=== PATIENT | female | born 1950 | race Caucasian/White ===

== ENCOUNTER 2017-12-23 14:30 | Outpatient (RCR) | payer MEDICARE, OTHER, SELFPAY | END 2017-12-29 23:59 | LOC: NS 14:30 | PROVIDERS: Family Provider Nurse Practitioner; PCP Nurse Practitioner; Visit Provider Nurse Practitioner | DX: E11.9 Type 2 diabetes mellitus without complications (principal); R63.5 Abnormal weight gain; Z68.36 Body mass index [BMI] 36.0-36.9, adult; Z71.3 Dietary counseling and surveillance | CPT/HCPCS: 97802; 97803 ==

== ENCOUNTER 2018-01-11 08:41 | Outpatient (RCR) | payer MEDICARE, OTHER, SELFPAY | END 2018-01-29 23:59 | LOC: NS 08:41 | PROVIDERS: Family Provider Nurse Practitioner; PCP Nurse Practitioner; Visit Provider Nurse Practitioner | DX: E11.9 Type 2 diabetes mellitus without complications (principal); R63.5 Abnormal weight gain; Z68.36 Body mass index [BMI] 36.0-36.9, adult; Z71.3 Dietary counseling and surveillance | CPT/HCPCS: 97803 ==

== ENCOUNTER 2018-02-01 08:00 | Outpatient (RCR) | payer MEDICARE, OTHER, SELFPAY ==
--- NOTE | 2017-12-30 10:56 | HP.PTEVAL_ITS ---
Patient's Visit Information ELIZABETH HOPE is a 67 year old F referred to Physical Therapy by Mayda BONILLA with a diagnosis of LBP with radiculopathy. Date of Evaluation: 12/30/17 Physical Therapist: Cristopher Francis PT, - Visit Plan Frequency: 2-3x /Week Duration: 4-6 Weeks Plan: SKTC/DKTC, core strengthening, B LE strengthening, balance and proprio ex' s, nustep, HEP - Subjective Subjective: Pt reports she has been having LE weakness for a couple months. 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 Pt reports she also has LBP which she recently received an injection for. Pt notes the pain went away for a little while, but has since returned. Pt does have B LE tingling which is a result of her neuropathy from the knees down to the feet. Pt reports her neuropathy is currently untreated. Pt reports she is unable to get up off the floor secondary to lE weakness. Pt also notes picking up her grandchildren is difficult secondary to LE weakness. No recent Dx tests. Pt reports walking for a prolonged distance increases her LBP. Pt also notes lifting her grandchildren increases her pain. LBP is currently 5/10, but increases to 10/10 at worst. - Pain LBP Pain Intensity (Out of 10): 5 Pain Intensity Range: 10 - Objective Neuro: B LE sensation is WNL to light touch. B achilles reflex 1/3. LE MMT: B LE's are grossly 3+/5 througout. LS ROM: Unable to safely test secondary to pt having menieres disease and poor balance. repeated movements: hooklying SKTC/ DKTC 3x10 sec ea alleviates LBP - Goals Goal 1:: Decrease LBP x 50% to aid with IADL's Goal Time Frame: 4-6 Weeks Goal 2:: Increase B LE strength x 1 grade to aid with gait tolerance Goal Time Frame: 4-6 Weeks Goal 3:: I with HEP Goal Time Frame: 4-6 Weeks - Rehabilitation Potential Physical Therapy Diagnosis: Pt has LBP, LE weakness, and decreased balance secondary to deg changes in the L/S Rehabilitation Potential: Good - Anticipated Interventions Patient/Client Instruction: Educate patient on: Condition, Plan of Care For the Purpose of:: To improve self management Therapeutic Exercise to Include: Strength training, Endurance training, Balance training, Postural training, Active ROM, Dynamic Lumbar Stabilization For the Purpose of:: To decrease pain, To increase ROM, To improve muscle performance and motor function Cryotherapy (ice pack, ice massage): Yes Thermo therapy (hot pack): Yes For the Purpose of:: To decrease pain Thank you for the opportunity to evaluate your patient. For Medicare and Medicare HMO plans, please review the plan of care and approve it. It will need to be FAXED BACK to us at [phone] for Medicare purposes. Please let me know if there are questions or concerns regarding this plan of care. Physician Signature: Date:
--- NOTE | 2018-02-01 08:23 | HP.PTDCSUM ---
HP - PT D/C Summary It has been my pleasure to treat ELIZABETH HOPE under orders from DR.KFEARO Jenny for the diagnosis of LBP with radiculopathy for a total of 7 visit(s). Discharge Date: Please see the following information for a summary of their discharge status. - Subjective Subjective: The LBP is now gone, but pt notes her neuropathy is really bad and makes her feel unsteady. - Pain LBP Pain Intensity (Out of 10): 0 L Knee Pain Intensity (Out of 10): 4 - Overall Improvement % Improvement: 100 - Objective Objective/Function: LBP is now 0/10. B LE's are now rated at 4-/5 throughout. Pt is I with HEP. Pt has achieved low back Rx goals - Goals Goal 1:: Decrease LBP x 50% to aid with IADL's Goal Progress: Goal Met Goal 2:: Increase B LE strength x 1 grade to aid with gait tolerance Goal Progress: Goal Met Goal 3:: I with HEP Goal Progress: Goal Met - Plan Plan: Discharge - D/C Information If there are questions or concerns regarding this patient's physical therapy, please feel free to call me at [phone]. Thank you for the referral of this patient. Sincerely, Cristopher Francis, PT,
== END 2018-02-01 19:00 | disposition home or self-care (01) ==
LOC: PT 08:00
PROVIDERS: Family Provider Nurse Practitioner; PCP Nurse Practitioner; Visit Provider Internal Medicine
DX: M54.16 Radiculopathy, lumbar region (principal)
CPT/HCPCS: 97110; 97162; 97530

== ENCOUNTER 2018-02-15 08:30 | Outpatient (RCR) | payer MEDICARE, OTHER, SELFPAY | END 2018-02-28 23:59 | LOC: NS 08:30 | PROVIDERS: Family Provider Nurse Practitioner; PCP Nurse Practitioner; Visit Provider Nurse Practitioner | DX: E11.9 Type 2 diabetes mellitus without complications (principal); R63.5 Abnormal weight gain; Z68.36 Body mass index [BMI] 36.0-36.9, adult; Z71.3 Dietary counseling and surveillance | CPT/HCPCS: 97803 ==

== ENCOUNTER 2018-03-24 10:00 | Outpatient (RCR) | payer MEDICARE, OTHER, SELFPAY | END 2018-03-31 23:59 | LOC: DC 10:00 | PROVIDERS: Family Provider Nurse Practitioner; PCP Nurse Practitioner; Visit Provider Nurse Practitioner | DX: E11.9 Type 2 diabetes mellitus without complications (principal); R63.5 Abnormal weight gain; Z68.36 Body mass index [BMI] 36.0-36.9, adult; Z71.3 Dietary counseling and surveillance | CPT/HCPCS: 97803; G0108 ==

== ENCOUNTER 2018-04-05 08:00 | Outpatient (RCR) | payer MEDICARE, OTHER, SELFPAY ==
--- NOTE | 2018-04-05 08:00 | DT_ITS ---
This patient was seen during an EMR downtime April 04, 2018 - April 11, 2018. This patient may have a combination of paper and electronic documentation or all paper documentation. All documentation is viewable within the e-chart portion of [facility] for each patient visit.
== END 2018-04-30 23:59 ==
LOC: NS 08:00
PROVIDERS: Family Provider Nurse Practitioner; PCP Nurse Practitioner; Visit Provider Nurse Practitioner
DX: R63.5 Abnormal weight gain (principal); Z68.36 Body mass index [BMI] 36.0-36.9, adult; E11.9 Type 2 diabetes mellitus without complications; Z71.3 Dietary counseling and surveillance; Z79.84 Long term (current) use of oral hypoglycemic drugs
CPT/HCPCS: 97803

== ENCOUNTER → 2018-04-12 07:54 | Outpatient (CLI) | payer MEDICARE, OTHER, SELFPAY ==
--- NOTE | 2018-04-12 09:50 | NEURO ---
NCS and/or EMG Patient Report Ordering Doctor: Eli Bowman DATE OF SERVICE: 04/12/18 This is a bilateral lower extremity nerve conduction study and a left lower extremity EMG performed on this 67-year-old female with a history of well-controlled diabetes, for the past several months has had bilateral lower extremity pain worse on the left side with weakness and falls. Still has chronic back pain. She describes that her legs suddenly give out without pain. Neurologic examination is nonfocal with intact reflexes however she does have mild hammertoe deformities. Bilateral lower extremity sensory and motor nerve conduction study is performed. The motor conduction velocities bilaterally are slowed worse on the right side from the common peroneal and tibial nerves which also demonstrate mild reduction of amplitude and mild prolongation of distal latencies. The tibial H reflex responses bilaterally are reduced, the sural sensory responses bilaterally are intact. The tibial and peroneal F-wave latencies bilaterally are intact. Left lower extremity needle electromyography is performed. Muscles evaluated included the extensor digitorum brevis, abductor hallucis, medial gastrocnemius, anterior tibialis, vastus lateralis, and vastus medialis muscles. All muscles demonstrated normal insertional activity with absence of pathologic spontaneous activity. Motor unit potential recruitment pattern and amplitude was normal in all muscles tested. Impression: Abnormal electrophysiologic study of the bilateral lower extremities consistent with primarily motor length dependent polyneuropathy.
--- NOTE | 2018-04-12 09:53 | NEURO_ITS ---
NCS and/or EMG Patient Report Ordering Doctor: Eli Bowman DATE OF SERVICE: 04/12/18 This is a bilateral lower extremity nerve conduction study and a left lower extremity EMG performed on this 67-year-old female with a history of well- controlled diabetes, for the past several months has had bilateral lower extremity pain worse on the left side with weakness and falls. Still has chronic back pain. She describes that her legs suddenly give out without pain. Neurologic examination is nonfocal with intact reflexes however she does have mild hammertoe deformities. Bilateral lower extremity sensory and motor nerve conduction study is performed. The motor conduction velocities bilaterally are slowed worse on the right side from the common peroneal and tibial nerves which also demonstrate mild reduction of amplitude and mild prolongation of distal latencies. The tibial H reflex responses bilaterally are reduced, the sural sensory responses bilaterally are intact. The tibial and peroneal F-wave latencies bilaterally are intact. Left lower extremity needle electromyography is performed. Muscles evaluated included the extensor digitorum brevis, abductor hallucis, medial gastrocnemius , anterior tibialis, vastus lateralis, and vastus medialis muscles. All muscles demonstrated normal insertional activity with absence of pathologic spontaneous activity. Motor unit potential recruitment pattern and amplitude was normal in all muscles tested. Impression: Abnormal electrophysiologic study of the bilateral lower extremities consistent with primarily motor length dependent polyneuropathy.
== END ==
PROVIDERS: Family Provider Nurse Practitioner; PCP Nurse Practitioner; Visit Provider Nurse Practitioner
DX: R20.0 Anesthesia of skin (principal)
CPT/HCPCS: 95886; 95910

== ENCOUNTER → 2018-04-23 08:58 | Outpatient (CLI) | payer MEDICARE, OTHER, SELFPAY ==
[2018-04-23 09:49] LABS: Hematocrit 41.8 % (37-47); Mean Corp Hgb Conc 33.5 g/gl (32-36); Mean Corpuscular Hgb 31.3 pg (27.0-32.0); Mean Corpuscular Volume 93.3 fL (81-99); Mean Platelet Vol. 10.5 fl (6.2-12.0); Platelet Count 216 K/mm3 (150-450); RBC Distribution Width CV 12.9 % (11.6-14.6); RBC Distribution Width SD 43.2 fl (35.1-43.9); Red Blood Count 4.48 M/mm3 (4.2-5.4); White Blood Count 8.3 K/mm3 (4.4-11.0)
[2018-04-23 09:53] LABS: Scan Indicated on CBC? Y/N NO
[2018-04-23 10:12] LABS: Creatinine, Urine (random) < 13.00 mg/dL (NO RANGE EST.); Microalbumin,Random Urine < 5.0 mg/L (NO RANGE EST.)
[2018-04-23 10:22] LABS: Albumin, Serum 3.4 g/dL (3.2-5.0); BUN 19 mg/dL (7-18); BUN/Creat Ratio 15.3 RATIO (10-20); Calcium,Total 8.9 mg/dL (8.5-10.1); Chloride 103 mmol/L (98-107); Creatinine, Serum 1.24 mg/dL (0.55-1.02); EST Glomerular Filtration Rate 46 mL/min (>60); Est Glom Filt Rate - Afr Amer 55 mL/min (>60); Glucose 93 mg/dL (74-106); Phosphorus 2.8 mg/dL (2.5-4.9); Potassium 4.4 mmol/L (3.5-5.1); Sodium Level 139 mmol/L (136-145)
[2018-04-25 09:50] LABS: PTHIN 51.5 pg/mL (18.4-80.1); Vitamin D,25 Hydroxy 69.4 ng/mL (29.95-100.01)
== END ==
PROVIDERS: Family Provider Nurse Practitioner; PCP Nurse Practitioner; Visit Provider Internal Medicine Nephrology
DX: Z13.0 Encounter for screening for diseases of the blood and blood-forming organs and certain disorders involving the immune mechanism (principal); N18.3 Chronic kidney disease, stage 3 (moderate); N25.81 Secondary hyperparathyroidism of renal origin
CPT/HCPCS: 36415; 80069; 82043; 82306; 82570; 83970; 85027

== ENCOUNTER 2018-04-26 08:48 | Outpatient (RCR) | payer MEDICARE, OTHER, SELFPAY | END 2018-04-30 23:59 | LOC: DC 08:48 | PROVIDERS: Family Provider Nurse Practitioner; PCP Nurse Practitioner; Visit Provider Nurse Practitioner | DX: E11.9 Type 2 diabetes mellitus without complications (principal); R63.5 Abnormal weight gain; Z68.36 Body mass index [BMI] 36.0-36.9, adult; Z71.3 Dietary counseling and surveillance | CPT/HCPCS: G0108 ==

== ENCOUNTER 2018-07-08 08:17 | Outpatient (RCR) | payer MEDICARE, OTHER, SELFPAY | END 2018-07-08 23:59 | LOC: NS 08:17 | PROVIDERS: Family Provider Nurse Practitioner; PCP Nurse Practitioner; Visit Provider Nurse Practitioner | DX: R63.5 Abnormal weight gain (principal); Z68.36 Body mass index [BMI] 36.0-36.9, adult; E11.9 Type 2 diabetes mellitus without complications; Z71.3 Dietary counseling and surveillance | CPT/HCPCS: G0108 ==

== ENCOUNTER 2018-07-11 08:30 | Outpatient (RCR) | payer MEDICARE, OTHER, SELFPAY ==
--- NOTE | 2018-07-11 09:05 | BH.SGPN.GN ---
Behaviors/Verbalizations/Mental Status: [Client maintained fair eye contact, casually dressed, motor activity WNL - closed body language, arms crossed, speech normal rate, soft tone - limited input provided, mood depressed, affect constricted, thoughts linear and logical, no evidence of delusions or hallucinations. Therapist reviewed clients symptom tracker to assess for intensity of mental health symptoms and identify risk for suicide. No signs of suicidal ideation, plan, or intent to date.] Client Response/Progress/Benefit: [Client first day in IOP program and is adjusting to the new group environment. She did well to remain an active listener and attentive throughout. Client indicated not feeling ready to share today and chose to pass at this time. Client appeared to benefit from the supportive environment as well as hearing other participants discuss their own areas of progress and ongoing difficulties. Client nodded on several occasions as other group members discussed and indicated feeling hopeful that the IOP program would help her to develop the skills needed to better manage mental health symptoms. Recommended continued IOP tx to prevent decompensation and improve insight into mental health as well as her ability to identify and utilize healthy means of coping. ] Narrative Note: []
--- NOTE | 2018-07-11 16:24 | BH.COMM ---
Communication Note - Communication with Client Communication Note: Therapist met with this client briefly following stay in IOP program to check in and see how she is adjusting to group, as well as any thoughts or concerns. Client indicated feeling somewhat overwhelmed on this day but glad she took the step to reach out for help with managing her mental health symptoms. Client tearful throughout and indicated understanding why she is having such difficulties in managing her symptoms of grief. She responded well to therapist empathic responses and indicated goals of wanting to improve grief management, socialization, and decrease depression. Client expressed feeling hopeful that her symptoms will improve through engagement in IOP program. client indicates plans to return to meet with program psychiatrist and attend group on Sunday 07/15.
--- NOTE | 2018-07-11 16:30 | BH.COMM ---
Communication Note - Communication with Client Communication Note: Client called in to cancel scheduled group day on Sunday 07/15. Client additionally scheduled to meet with program psychiatrist, nurse, and individual therapist on that date. Client indicated having other obligations and needing to reschedule for Wednesday 07/18 for group and individual therapy. Will be in attendance next Sunday 07/22 to meet with program psychiatrist and nurse.
--- NOTE | 2018-07-18 14:51 | BH.COMM ---
Communication Note - Communication with Client Communication Note: Client called prior to group scheduled for this date and indicated that she is unsure if group couseling would be a good fit for her at this time as she would like to recieve more grief specific counseling on an individual basis. Client requesting discharge from IOP program at this time and is agreeable to recieving referral information for [facility] grief specific counseling. CLient encouraged to return to IOP program at a later date is feeling more capable of being in a group setting.
--- NOTE | 2018-07-19 13:50 | BH.DS_ITS ---
Discharge Summary - Demographics Date of Admission:: 07/11/18 Discharge Date: 07/19/18 Presenting Problems at Admission:: Client is a 67-year-old female referred to IOP program following meeting with [facility] dietitian due to expressed symptoms of increased hopelessness and depression. Client indicates at time of admission experiencing ongoing difficulties in managing grief, increased symptoms of depression including hopelessness, lack of energy, lack of motivation, an hedonia, crying spells, and increased isolation. Client associates worsening depression with experiencing several major losses in the past thress years; including the of her and daughter. CLient reports at time of admission difficulties completing daily tasks or feeling as though she has a purpose. Discharge Diagnoses:: Client attended one day of IOP tx and discharged prior to meeting with program psychiatrist. She was therefore not give a diagnosis while in treatment. Client had been scheduled to meet with psychiatrist on 07/15; however canceled appointment indicating other obligations. Client did not return for group following this cancellation. Reason for Discharge:: Client request discharge from IOP program at this time due to wanting to pursue mental health treatment on an individual basis in an environment more specialized towards grief specific counseling. Client receptive of receiving resources for hospice individual and group supportive counseling services. - Treatment Progress During Treatment & Response: Limited progress able to be made as client was in attendance for 1 day of treatment while admitted to the IOP program. Client indicated feeling as though she was not a good fit for groups as she felt her needs would be better maaged through individually grief specific counseling . Due to client feeling uncomfortable in group setting she had difficulties in engaging in the activities and discussion portion of group and remained deserved throughout. Client additionally inconsistent in attending IOP program while admitted due to outside responsibilities reguarding watching her grandchildren. Client did well to identify the importance of ensuring her mental health needs were addressed and is receptive of engaging in counseling services on an individual basis. Issues Still to be Addressed:: Client displaying difficulties with managing ongoing symptoms of depression associated with grief and difficulties in adjusting to changes in current lifestyle. Client additionally expressed increased feelings of guilt, worthlessness, and hopelessness associated with her ongoing mental health symptoms. CLient additionally discussed having limited supports she feels understand and validate her mental health needs and difficulties in coping which has led to increased isolation as a result. Client would benefit from individual outpatient counseling specific to addressing CLient grief and increased depression. Client additionally would benefit from working on identifying ways to better communicate with supports and implement healthy boundary setting as well as means for managing transition of roles. Client could also benefit from focus on increasing psychoeducation regarding mental health symptoms and impact in daily living, as well as means for healthy coping skills and thought challenging strategies. Discharge Recommendations/Instructions:: Client is planning to follow-up with ongoing outpatient individual counseling services through [facility]osp[facility]. She is also encouraged to reach out to [facility] regarding grief support groups and services. CLient does not have a psychiatrist at this time and is encouraged to follow-up with PCP until able to establish outpatient psychiatry services. Discharge Handout: Complete Discharge Handout with client on aftercare options and continuity of care.
== END 2018-07-18 14:34 | disposition home or self-care (01) ==
LOC: BHIOP 08:30
PROVIDERS: Family Provider Nurse Practitioner; PCP Nurse Practitioner; Visit Provider Psychiatry & Neurology Psychiatry
DX: F32.9 Major depressive disorder, single episode, unspecified (principal)
CPT/HCPCS: H0035; 90853

== ENCOUNTER → 2018-07-29 10:20 | Outpatient (CLI) | payer MEDICARE, OTHER, SELFPAY ==
--- NOTE | 2018-07-29 10:23 | RAD_ITS ---
STUDY: X-RAY CHEST REASON FOR EXAM: Female, 67 years old. Chest pain. TECHNIQUE: PA and lateral views of the chest. COMPARISON: Prior comparison studies are not available for review at this time. FINDINGS: The lungs are clear and expanded. There is no demonstrated pleural abnormality. There is borderline cardiomegaly. Normal mediastinum and tabby. Normal visualized pulmonary arteries. There is atherosclerotic tortuosity of the aortic arch and descending thoracic aorta. Normal visualized thoracic spine. Normal visualized ribs, clavicles, and shoulders. There is no demonstrated abnormality of the visualized soft tissue structures of the upper abdomen. RAD/Chest PA and Lateral IMPRESSION: No radiographic evidence of acute cardiopulmonary disease. Electronically Signed: Cami Parra MD at 10:43 EDT , Service support ,
== END ==
PROVIDERS: Family Provider Nurse Practitioner; PCP Nurse Practitioner; Referring Provider Nurse Practitioner; Visit Provider Nurse Practitioner
DX: R07.9 Chest pain, unspecified (principal)
CPT/HCPCS: 71046

== ENCOUNTER → 2018-08-01 13:40 | Outpatient (CLI) | payer MEDICARE, OTHER, SELFPAY ==
--- NOTE | 2018-08-01 13:43 | CT_ITS ---
STUDY: CTA CHEST/THORAX REASON FOR EXAM: Female, 67 years old. Shortness of breath, cough, elevated d-dimer. RADIATION DOSAGE (If Supplied By Facility): CTDIvol = ( 10.78 ) mGy, DLP = ( 604.84 ) mGycm TECHNIQUE: The examination was performed with the intravenous administration of 100CC ml of Isovue 370 contrast material. Post-processing of the angiographic images was performed, with multiplanar reformation. No 3D reconstruction. Individualized dose optimization techniques were used for this CT. COMPARISON: PA and lateral chest x-ray July 21, 2018; CTA chest/thorax April 30, 2014. FINDINGS: Normal enhancement of the main pulmonary artery and right and left pulmonary arteries. Normal enhancement of the bilateral peripheral pulmonary arteries. There is no demonstrated pulmonary embolism. Normal thoracic aorta and visualized great vessels. There is no demonstrated aortic dissection. Normal heart and pericardium. There are calcifications of the coronary arteries. There is a stable coarse pretracheal calcification. No demonstrated mediastinal or hilar adenopathy. Normal visualized trachea. Mild bronchiectasis predominates in the lung bases. There is subsegmental volume loss and crowding versus chronic postinflammatory change surrounding peripheral bronchi in the medial posterior lung bases, unchanged. To a lesser degree, this is seen also in the lateral periphery of the right middle lobe and in the posterior medial mid to upper left chest. Subcentimeter calcified granuloma noted in the anterior periphery of the right upper lobe. Normal pleura. Normal chest wall structures. There are stable multilevel degenerative changes of the thoracic spine. Normal visualized upper abdomen. CT/CTA Chest W/WO Contrast IMPRESSION: 1. No demonstrated pulmonary embolism or arterial dissection. 2. Bronchiectasis again seen in the lung bases, with chronic subsegmental volume crowding or chronic postinflammatory change in the posterior medial lung bases. There are also stable findings of old calcified granulomatous disease, but no new pulmonary or mass. 3. Atherosclerotic calcification of the coronary arteries, unchanged. Electronically Signed: Silvio Calix MD at 14:38 EDT , Service support ,
[2018-08-01 14:00] LABS: CREATININE FINGERSTICK 1.1 mg/dL (0.55-1.02)
== END ==
PROVIDERS: Family Provider Nurse Practitioner; PCP Nurse Practitioner; Referring Provider Nurse Practitioner; Visit Provider Nurse Practitioner
DX: J47.9 Bronchiectasis, uncomplicated (principal); R79.89 Other specified abnormal findings of blood chemistry
CPT/HCPCS: 71275; Q9967

== ENCOUNTER → 2018-09-30 15:51 | Outpatient (CLI) | payer MEDICARE, OTHER, SELFPAY ==
[2018-09-30 15:58] LABS: Bacteria 0 SEEN /hpf (None Seen); Mucous, Urine 0 SEEN /hpf (<or=2+); Red Blood Cells-Urine 0 SEEN /hpf (0-5)
[2018-09-30 17:02] LABS: Absolute Lymphocyte Count 2.85 X10^3/ul (0.83-4.51); Absolute Neutrophil Count 4.4 X10^3/uL (2.0-7.7); Basophil# 0.05 X10^3/uL; Basophil% 0.5 % (0-1); Eosinophil# 0.69 X10^3/uL; Eosinophils% 7.6 % (0-5); Hematocrit 40.3 % (37-47); Hemoglobin 13.4 g/dl (12.0-15.0); Lymphocyte # 2.85 X10^3/ul (4.0); Lymphocyte % 31.3 % (19-41); Mean Corp Hgb Conc 33.3 g/gl (32-36); Mean Corpuscular Hgb 31.5 pg (27.0-32.0); Mean Corpuscular Volume 94.6 fL (81-99); Mean Platelet Vol. 9.7 fl (6.2-12.0); Monocyte# 1.13 X10^3/uL; Monocyte% 12.4 % (0-10); Neutrophil # 4.36 X10^3/uL (2.7-7.7); POSITIVE COUNT NO; POSITIVE DIFFERENTIAL NO; POSITIVE MORPHOLOGY NO; Platelet Count 217 K/mm3 (150-450); RBC Distribution Width CV 13.2 % (11.6-14.6); RBC Distribution Width SD 45.4 fl (35.1-43.9); Red Blood Count 4.26 M/mm3 (4.2-5.4); White Blood Count 9.1 K/mm3 (4.4-11.0)
[2018-09-30 17:33] LABS: Vitamin B12 788 pg/mL (211-911); Vitamin D,25 Hydroxy 64.5 ng/mL (29.95-100.01)
[2018-09-30 17:41] LABS: ALB/GLOB Ratio 0.8 RATIO (0.9-2.4); AST(SGOT) 29 U/L (15-37); Alanine Aminotransfer ALT/SGPT 41 U/L (13-56); Albumin, Serum 3.4 g/dL (3.2-5.0); Alkaline Phosphatase 69 U/L (45-117); Anion Gap 10 (5-15); BUN 21 mg/dL (7-18); Calcium,Total 8.8 mg/dL (8.5-10.1); Chloride 98 mmol/L (98-107); Creatinine, Serum 1.31 mg/dL (0.55-1.02); EST Glomerular Filtration Rate 43 mL/min (>60); Est Glom Filt Rate - Afr Amer 52 mL/min (>60); Globulin 4.1 g/dL (2.2-4.2); Glucose 85 mg/dL (74-106); Potassium 4.1 mmol/L (3.5-5.1); Protein, Total 7.5 g/dL (6.4-8.2); Sodium Level 133 mmol/L (136-145); T4 Free Direct 1.14 ng/dL (0.76-1.46); Thyroid Stim Hormone (TSH) 3.92 uIU/mL (0.358-3.74)
[2018-09-30 17:49] LABS: Color, Urine Straw (Yellow); Glucose, Dipstick Normal (Normal); Ketone-Dipstick Negative (Negative); Leukocyte Esterase-Dipstick 100 /ul (Negative); Nitrite-Dipstick Negative (Negative); Occult Blood-Urine Negative /ul (Negative); Protein-Dipstick Negative (Negative); Specific Gravity, Urine 1.005 (1.002-1.030); Urine Bilirubin Dipstick Negative (Negative); Urine Clarity Clear (Clear); Urine Urobilinogen Normal (Normal)
[2018-09-30 18:09] LABS: Squamous Epithelial Cells - UA 0-5 SEEN /hpf (5-10); White Blood Cells 0-5 SEEN /hpf (0-5)
[2018-09-30 18:33] LABS: Microalbumin,Random Urine < 5.0 mg/L (NO RANGE EST.)
[2018-10-06 08:20] LABS: Vitamin B1, Thiamine 165.9 nmol/L (66.5-200.0)
--- OUTSIDE RECORDS SUMMARY | 2018-11-25 14:41 | XMS RPT_ITS | Continuity of Care Document ---
:1950 Author Organization [facility] Address [address] [place] [address] Phone Care Team Providers Name Role Phone Colby JANENEEli E Unavailable Mina Baer MD Unavailable Nhung Duval Unavailable [facility], [facility] Unavailable Kasi Scott Unavailable Mariia Zhang Unavailable Dr. Junior Pena Unavailable Navdeep Fox Unavailable Elie Russo Unavailable Tanphaichitr - Bauer, Aaron Unavailable Be Middleton Unavailable MD Tyrone, Génesis Unavailable Damion Alas Unavailable Sisi Perez Unavailable Caitlin Delaney Unavailable Unavailable MERRY Stephens Unavailable Unavailable Paul Weathers Unavailable Unavailable Esme Guo Unavailable Unavailable Phyllis Saez Unavailable Unavailable Unavailable Unavailable Problems Name Dates Details Active Meniere's disease, bilateral (H81.03, 386.00) Status: Active Acute bilateral low back pain without sciatica (M54.5, 724.2) Status: Active Acute pain of right shoulder (M25.511, 719.41) Status: Active Allergic rhinitis (J30.9, 477.9) Status: Active Anxiety and depression (F41.9, 300.00) Comments: daughter of Madie Gehrigs disease 09/16 age 48Feeling sad and tired most of the time. Status: Active Asthma in adult (J45.909, 493.90) Comments: stable now. Status: Active Asthma with acute exacerbation (J45.901, 493.92) Status: Active Back pain (M54.9, 724.5) Status: Active Back problem (M53.9, 724.9) Status: Active Bilateral leg numbness (R20.0, 782.0) Comments: per pt this was worked up in past by Dr. Robertson. Repeat nerve conduction and trial lyrica for 14 days Status: Active Bipolar affective disorder, mixed (F31.60, 296.60) Comments: doing much better. on zyprexa and prozac doing much better.Does not see a psychiatristDaughter age 48 of Madie gehrig disease 09/16 and is very sadNeeds counselling, is in group Status: Active Bipolar depression (F31.30, 296.50) Comments: reviewed last OV note by KF with pt but does not remember being referred to Dr. Middleton , meds reviewed but unable to clearly state what med she is on Status: Active Bipolar disorder (F31.9, 296.80) Status: Active BMI 32.0-32.9,adult (Z68.32, V85.32) Status: Active BMI 32.0-32.9,adult (Z68.32, V85.32) Status: Active BMI 34.0-34.9,adult (Z68.34, V85.34) Status: Active BMI 34.0-34.9,adult (Z68.34, V85.34) Status: Active BMI 34.0-34.9,adult (Z68.34, V85.34) Status: Active BMI 35.0-35.9,adult (Z68.35, V85.35) Status: Active Bronchiectasis (J47.9, 494.0) Comments: improved with amoxicillin Status: Active Bronchitis (J40, 490) Status: Active Burping (R14.2, 787.3) Status: Active Candidiasis (B37.9, 112.9) Status: Active Carotid stenosis (I65.29, 433.10) Comments: 50% 8-13 Status: Active Chest pain (R07.9, 786.50) Comments: resolved is cancelling holter monitor Status: Active Choking (T17.308A, 933.1) Comments: esophagram Status: Active Chronic kidney disease (CKD), stage I (N18.1, 585.1) Comments: Repeat 1.45(GFR 38, so back to baseline)Dr Henry : last viist 09/16, followup every 6 mnth, stable Status: Active CKD (chronic kidney disease), stage III (N18.3, 585.3) Status: Active Cold virus (J00, 460) Status: Active Colonoscopy refused (Z53.20, V64.2) Comments: colonsopy with Becky many yeasr ago, ended up in [facility] pt and refuses any more colosnocpyCounselled about risk of colon cancer Status: Active Coronary artery disease (I25.10, 414.00) Comments: mild and see on CTA of chest 6-14. stres test good 7-14 Status: Active Cough (R05, 786.2) Status: Active Cracked lips (K13.0, 528.5) Status: Active Craving for particular food (R63.8, 783.9) Comments: related to meds, or impulse control, treat D deficiency, sending to why wait, check b12 Status: Active Current nonsmoker (Renamed from Current non-smoker) (Z78.9, V49.89) Status: Active Deliveries (Parity) Comments: Term, 2 Status: Active Diabetes mellitus type II, controlled (E11.9, 250.00) Comments: Dr Baer, opthalmologyOn victoza A1c 5.5 12mg Status: Active Dry mouth (R68.2, 527.7) Status: Active Dysphagia (R13.10, 787.20) Comments: Barium swallow.refer to GI for UGI endoscopydry eyes and dry mouth X 2 monthsDysphagia , food(toast, meat) and medicines sticking down the throat X 2months Status: Active Elevated d-dimer (R79.89, 790.92) Status: Active Elevated serum creatinine (R77.0, 790.99) Comments: stable Status: Active Encounter for screening mammogram for breast cancer (Renamed from Encounter for screening mammogram for malignant neoplasm of breast) (Z12.31, V76.12) Status: Active Endometrial hyperplasia without atypia, simple (N85.01, 621.31) Comments: s/p hystrectomy 07/17 Status: Active Esophagitis (K20.9, 530.10) Comments: Had esophagram scheduled from ER for esophagitis this was normal, improved with pepcid and treatment for thrush Status: Active Fatigue (R53.83, 780.79) Status: Active Goiter (Renamed from Big thyroid) (E04.9, 240.9) Status: Active High triglycerides (E78.1, 272.1) Comments: triglyceride elevatedDiet(cut carbohydrates), exercise , weight lossStrict glycemic controlOn lipitor 80 mg , add Trilipix 45 mg Qd(11/24/16) Status: Active Hypercholesteremia (E78.00, 272.0) Comments: reveiwed with patient recent tests and on high dose statin. Status: Active Hypertension (Renamed from BP (high blood pressure)) (I10, 401.9) Comments: controlled on maxide Status: Active Hypothyroidism (E03.9, 244.9) Comments: good recently Status: Active Iliotibial band syndrome of both sides (M76.31, 728.89) Status: Active Infection viral (B34.9, 079.99) Status: Active Insomnia, persistent (G47.00, 307.42) Comments: same up through night Status: Active Irritable bowel syndrome (Renamed from Functional bowel disease) (K58.9, 564.1) Comments: usual. constipation mostly. 4 BM a week. Status: Active Leg pain (M79.606, 729.5) Status: Active Leg weakness (R29.898, 729.89) Comments: Dr. Fox did nerve conduction, says neuropathy Status: Active Low back pain potentially associated with radiculopathy (M54.5, 724.2) Comments: x-rays showed deg 07/18 Status: Active Memory loss (Renamed from Amnesia) (R41.3, 780.93) Comments: MMS good and MRI good Status: Active Mouth pain (K13.79, 528.9) Status: Active Muscle spasm (M62.838, 728.85) Status: Active Neck pain (M54.2, 723.1) Status: Active Need for prophylactic vaccination and inoculation against influenza (Renamed from Need for immunization against influenza) (Z23, V04.81) Status: Active Neuropathic pain (M79.2, 729.2) Status: Active Nonsmoker (Z78.9, V49.89) Status: Active Non-smoker (Z78.9, V49.89) Status: Active Obesity, unspecified (E66.9, 278.00) Comments: on victoza now lost 20 pounds Status: Active MARTHA on CPAP (G47.33, 327.23) Comments: Severe MARTHA on sleep study 08/16Not sleeping well and not using regularly, counselled on compliance, nasal cpap Status: Active Osteoarthritis (M19.90, 715.90) Comments: worse rt knee vs left xrays done 04-08-18 Status: Active Osteoarthritis of both knees, unspecified osteoarthritis type (M17.0, 715.96) Status: Active Osteoarthritis of both knees, unspecified osteoarthritis type (M17.0, 715.96) Status: Active Pain in both knees, unspecified chronicity (M25.561, 719.46) Comments: xrays showing rt osteoarthritis, left moderate Status: Active Polyneuropathy (G62.9, 356.9) Comments: currently on 100mg tid increase to 200mg tid Status: Active Polypharmacy (Z79.899, V58.69) Comments: multiple meds but pt unsure what they are, pt sent home to bring meds in with bottles, extensive review with nurse and [facility], med list updated Status: Active Postmenopausal (Renamed from Postmenopausal status) (Z78.0, V49.81) Status: Active Pregnancies () Comments: 2 Status: Active S/P hysterectomy (Z90.710, V88.01) Comments: for endometrial hyperplasia 2015 Status: Active Shortness of breath (R06.02, 786.05) Status: Active Sleep apnea (G47.30, 780.57) Comments: needs repeat sleep study at [facility] to get back on cpap Status: Active Sore mouth (K13.79, 528.9) Status: Active Sore throat (J02.9, 462) Status: Active Stress incontinence, female (N39.3, 625.6) 11-Nov-2010 Comments: Stress incontinence, had bulking agent per Dr. Winston in Oct 2017 with some improvement. Status: Active Therapeutic drug monitoring (Z51.81, V58.83) Status: Active Thrush (B37.0, 112.0) Comments: 3 week h/o or dry mouth, dry eyes, painful cracks in the tongue, something stuck down the throat, difficulty swallowing food.Water helps relieve dryness, drinks 5 glasses of water everyday.No coating on the tongue. Status: Active Unspecified abnormal involuntary movements (R25.9, 781.0) Comments: saw neuro. topamax help alot. thought essential tremor Status: Active Unspecified Diagnosis Status: Active Unspecified Diagnosis Status: Active Unspecified Diagnosis Status: Active Unspecified Diagnosis Status: Active Unspecified Diagnosis Status: Active Unspecified Diagnosis Status: Active Unspecified Diagnosis Status: Active Upset stomach (K30, 536.8) Status: Active Urinary Incontinence (Renamed from Absence of bladder continence) (R32, 788.30) Comments: on oxybutin at times still wet pad rare. talk about timed voidStill having incontinence is seeing urology Urologist (madina souza) Catrachito recommend surgery Status: Active UTI (lower urinary tract infection) (N39.0, 599.0) Comments: UTI: EColi Status: Active Vitamin D deficiency (Renamed from Avitaminosis D) (E55.9, 268.9) Comments: encouraged taking twice weekly Status: Active Weakness (R53.1, 780.79) Comments: UTI: Culture grew E coli, start ciprofloxacin.On topamax and zyprexa for Bipolar for a long timeOn MAxzide for menieres.HAs MARTHA but not using it , needs readjustment, refer to [facility] uterine bleeding X2 months, Dr Weeman doing hystrectomy on 06/22/16Diabetes :on victoza, blood sugarsok TSH, B12, UA, CBC all good.UANo more episodes of shakingFeeling very weak and tired for 2 months.No CP, SOB, no ligh theadedness/dizziness, urine/bowels moving ok.FBS: not done2 hours after breakfast: 134, 115, 116, 123, no lows Status: Active Weight gain (R63.5, 783.1) Status: Active Xerostomia due to dehydration (K11.7, 527.7) Comments: oral thrush vs dry mouth due to olanzapine vs sjogrens syndrome vs dehydrationClotrimazole 10 mg 5 times a day X 10 days ,treated twice with mild resolution of symptoms.Throat culture: light growth stre p B, treated with augmentin for 2 weeks, with no resolution of symptoms.Also having dysphagia, refer to GIArtificial saliva over the counter like biotene.MARTHA on CPAP used CPAP, stopped using 1 year ago. Status: Active Medications Name Dates Details Albuterol Sulfate (2.5 MG/3ML) 0.083% Inhalation Nebulization Solution 1 (one) Nebulized Soln qid prn for 0 days Quantity: 1 {box} Refills: 3 Ordered:29-Jul-2018 Eli Bowman CNP, CNP, Mary E Start : 29-Jul-2018 Active Ativan 1 MG Oral Tablet 1 Tablet qd/prn for 0 days Quantity: 30 {Tablet} Refills: 0 Ordered:15-Feb-2018 Eli Bowman CNP, CNP, Mary E Start : 15-Feb-2018 Active Comments:Thirty OARRS Reviewed B12 Active BD Pen Needle Ange U/F 32G X 4 MM Miscellaneous 1 (one) Misc Misc uad for 0 days Quantity: 1 {Box} Refills: 6 Ordered:19-Jan-2018 Eli Bowman CNP, CNP, Mary E Start : 19-Jan-2018 Active BusPIRone HCl 15 MG Oral Tablet 1 (one) Tablet Tablet bid for 0 days Quantity: 60 {Tablet} Refills: 6 Ordered:26-Jul-2018 Farzana Jones Start : 26-Jul-2018 Active Cheratussin AC 100-10 MG/5ML Oral Solution 4 Milliliter Milliliter qhs prn for cough for 0 days Quantity: 120 {Milliliter} Refills: 0 Ordered:29-Jul-2018 Caitlin Delaney Start : 29-Jul-2018 Active Ergocalciferol 51825 UNIT Oral Capsule 1 Capsule twice weekly for 0 days Quantity: 24 {Capsule} Refills: 0 Ordered:23-Jun-2018 Colby WATTERS, Eli Renata WATTERS Eli Lubin Start : 23-Jun-2018 Active Gabapentin 100 MG Oral Capsule 3 (three) Capsule tid for 0 days Quantity: 180 {Capsule} Refills: 11 Ordered:22-Apr-2018 Mayda Dobbins DO Start : 22-Apr-2018 Active Comments:Oarrs reviewedDx M54.5 180 Metoprolol Succinate ER 25 MG Oral Tablet Extended Release 24 Hour 1/2 Tablet daily for 0 days Quantity: 45 {Tablet} Refills: 3 Ordered:26-Jun-2018 Colby WATTERS Eli Renata WATTERS Eli Lubin Start : 26-Jun-2018 End : 18-Jan-2018 Active Oxybutynin Chloride ER 15 MG Oral Tablet Extended Release 24 Hour one tablet daily (15 MG) Active Comments:Catrachito Pen [place] 01/14 31G X 5 MM Miscellaneous 1 (one) Misc Misc qd with Victoza for 0 days Quantity: 1 {Box} Refills: 3 Ordered:03-Feb-2018 Edita Cabral MD Start : 19-Jan-2018 Active ProAir HFA 108 (90 Base) MCG/ACT Inhalation Aerosol Solution 1-2 puffs Aerosol Soln every four hours, as needed for 30 days Quantity: 1 {Box} Refills: 3 Ordered:29-Jul-2018 Lisamitchsilvano WATTERS Eli Mejiasilvano WATTERS Eli Lubin Start : 29-Jul-2018 Active Comments:Medication taken as needed. PROzac 40 MG Oral Capsule 2 (two) Capsule qd for 90 days Quantity: 180 {Capsule} Refills: 3 Ordered:18-Apr-2018 Colby WATTERS, Eli Mejiasilvano WATTERS Eli Lubin Start : 18-Apr-2018 Active Symbicort 80-4.5 MCG/ACT Inhalation Aerosol 1 (one) Puff Puff bid for 0 days Quantity: 1 {Inhaler} Refills: 0 Ordered:02-Sep-2017 Nunu Stephens LPN Start : 30-Aug-2017 Active Synthroid 75 MCG Oral Tablet uad Tablet qd except 1 1/2 on Sundays for 90 days Quantity: 102 {Tablet} Refills: 1 Ordered:20-Jul-2018 Colby WATTERS, Eli Yanez CNP, Eli Lubin Start : 20-Jul-2018 Active Victoza 18 MG/3ML Subcutaneous Solution Pen-injector 1 (one) Soln Pen-inj 0.6 mg SC daily for 0 days Quantity: 1 {Each} Refills: 6 Ordered:02-Nov-2017 Colby WATTERS, Eli Yanez CNP, Eli Lubin Start : 02-Nov-2017 Active Comments:with needles ZyPREXA 10 MG Oral Tablet 1 Tablet at night for 0 days Quantity: 90 {Tablet} Refills: 1 Ordered:26-Jul-2018 Colby WATTERS, Eli Yanez CNP, Eli Lubin Start : 26-Jul-2018 Active ABILIFY, 15MG (Oral Tablet) Tablet qhs / HS for 0 days Quantity: 30 {Tablet} Refills: 6 Ordered:25-Sep-2009 AKBAR South Start : 25-Sep-2009 Inactive Comments:instead of the 5mg 3 tablets a day breathing issues Amoxicillin 875 MG Oral Tablet 1 (one) Tablet bid for 10 days Quantity: 20 {Tablet} Refills: 0 Ordered:01-Aug-2018 Colby WATTERS, Eli Yanez CNP, Eli Lubin Start : 01-Aug-2018 End : 11-Aug-2018 Inactive ASMANEX 30 METERED DOSES, 110MCG/INH (Inhalation Aerosol Powder Breath Activated) Aero Pow Br Act once daily for 0 days Quantity: 1 {Aero_Pow_Br_Act} Refills: 6 Ordered:29-Jul-2010 Sue Ewing LPN Start : 01-Oct-2009 Inactive ASMANEX 30 METERED DOSES, 220MCG/INH (Inhalation Aerosol Powder Breath Activated) Aero Pow Br Act QD for 0 days Refills: 6 Ordered:27-Dec-2007 AKBAR South Start : 27-Dec-2007 End : 25-Jan-2009 Inactive ASPIRIN, 325MG (Oral Tablet) 1 Tablet daily for 0 days Quantity: 30 {Tablet} Refills: 0 Ordered:13-Jun-2015 AKBAR South Start : 27-Jun-2013 End : 13-Jun-2015 Inactive Atenolol 25 MG Oral Tablet 1/2 (one half) Tablet qd for 90 days Quantity: 45 {Tablet} Refills: 1 Ordered:12-Oct-2017 Naomi Hassan LPN Start : 13-Oct-2016 End : 12-Oct-2017 Inactive AUGMENTIN, 875-125MG (Oral Tablet) 1 (one) Tablet bid for 14 days Quantity: 28 {Tablet} Refills: 0 Ordered:06-Jan-2016 Colby WATTERS, Eli Yanez CNP, Eli Lubin Start : 06-Jan-2016 End : 20-Jan-2016 Inactive AZITHROMYCIN, 250MG (Oral Tablet) 2 (two) Tablet today then 1 qd for 4 days for 0 days Quantity: 6 {Tablet} Refills: 0 Ordered:08-Dec-2012 Nunu Stephens LPN Start : 21-Nov-2012 End : 08-Dec-2012 Inactive BACTRIM DS, 800-160MG (Oral Tablet) 1 Tablet bid for 7 days Quantity: 14 {Tablet} Refills: 0 Ordered:16-May-2013 Colby WATTERS, Eli Yanez [facility], Eli Lubin Start : 16-May-2013 End : 23-May-2013 Inactive Cheratussin AC 100-10 MG/5ML Oral Syrup 1 Teaspoon(s) qhs prn cough for 0 days Quantity: 8 {Fluid_Ounce} Refills: 0 Ordered:16-Jun-2016 Priya Gillette Start : 12-Mar-2016 End : 16-Jun-2016 Inactive Comments:eight CIPRO, 500MG (Oral Tablet) 1 Tablet bid for 7 days Quantity: 14 {Tablet} Refills: 0 Ordered:15-Jan-2014 Colby WATTERS, [facility] Elif Start : 15-Jan-2014 End : 22-Jan-2014 Inactive Ciprofloxacin HCl 500 MG Oral Tablet 1 Tablet bid for 7 days Quantity: 14 {Tablet} Refills: 0 Ordered:17-Jun-2016 Donnie Gonzales MD Start : 17-Jun-2016 End : 24-Jun-2016 Inactive Clotrimazole 10 MG Mouth/Throat Shady 1 (one) Shady 5 times a day for 10 days Quantity: 50 {Shady} Refills: 0 Ordered:03-Feb-2018 Nunu Root Start : 03-Feb-2018 End : 13-Feb-2018 Inactive CYMBALTA, 60MG (Oral Capsule Delayed Release Particles) [address] Part QD for 0 days Quantity: 14 {Capsule_DR_Part} Refills: 0 Ordered:22-Mar-2007 AKBAR South Start : 22-Mar-2007 End : 25-Jan-2009 Inactive DETROL LA, 4MG (Oral Capsule Extended Release 24 Hour) 1 Capsule ER 24HR qd for 0 days Quantity: 30 {Capsule_ER_24HR} Refills: 3 Ordered:12-Feb-2014 AKBAR South Start : 07-Nov-2012 End : 12-Feb-2014 Inactive Drisdol 06720 UNIT Oral Capsule 1 (one) Capsule once week for 90 days Quantity: 12 {Capsule} Refills: 1 Ordered:03-Jan-2018 Slarb MERRYFaraza Start : 10-Aug-2017 End : 03-Jan-2018 Inactive DULERA, 100-5MCG/ACT (Inhalation Aerosol) 1 Aerosol bid next 2 weeks for 0 days Quantity: 1 {Aerosol} Refills: 0 Ordered:07-Nov-2012 AKBAR South Start : 18-Oct-2012 End : 07-Nov-2012 Inactive ENABLEX, 7.5MG (Oral Tablet Extended Release 24 Hour) 1 (one) Tablet ER 24HR qd for 0 days Quantity: 30 {Tablet_ER_24HR} Refills: 6 Ordered:03-Aug-2011 Teressa Molina LPN Start : 11-Jun-2011 End : 03-Aug-2011 Inactive FLONASE, 50MCG/ACT (Nasal Suspension) 2 (two) Suspension spray each nostril daily for 0 days Quantity: 1 {Suspension} Refills: 2 Ordered:13-Nov-2013 AKBAR South Start : 08-Dec-2012 End : 13-Nov-2013 Inactive Comments:substitute generic FLUOXETINE HCL, 40MG (Oral Capsule) 1 Capsule daily for 0 days Quantity: 30 {Capsule} Refills: 6 Ordered:08-Oct-2010 Phuong Dukes Start : 06-Mar-2010 End : 08-Oct-2010 Inactive HYCODEN (Oral Syrup) (Free Text) 1 tsp q 6 hr prn for 0 days Quantity: 60 ml Refills: 0 Ordered:08-Dec-2012 Nunu Stephens LPN Start : 25-Nov-2012 End : 08-Dec-2012 Inactive Comments:sixty LAMICTAL, 25MG (Oral Tablet) 1 Tablet 1 a day for 2 weeks then 2 a day for 2 weeks for 0 days Refills: 0 Ordered:27-Jan-2013 AKBAR South Start : 27-Jan-2013 End : 27-Jan-2013 Inactive LEVAQUIN, 500MG (Oral Tablet) 1 (one) Tablet qd for 14 days Quantity: 14 {Tablet} Refills: 0 Ordered:12-Dec-2015 Donnie Gonzales MD Start : 12-Dec-2015 End : 26-Dec-2015 Inactive LITHIUM CARBONATE, 300MG (Oral Tablet) 1 Tablet tid for 0 days Quantity: 90 {Tablet} Refills: 3 Ordered:08-Oct-2010 Phuong Dukes Start : 21-Apr-2010 End : 08-Oct-2010 Inactive LORazepam 1 MG Oral Tablet 1 (one) Tablet Tablet 1 daily prn anxiety for 30 days Quantity: 30 {Tablet} Refills: 0 Ordered:26-Jul-2018 Farzana Jones Start : 26-Jul-2018 End : 25-Aug-2018 Inactive Comments:Thirtydo not fill until 07-31-18 Lyrica 50 MG Oral Capsule 1 (one) Capsule tid for 0 days Quantity: 60 {Capsule} Refills: 3 Ordered:22-Mar-2018 Nunu Root Start : 18-Jan-2018 End : 22-Mar-2018 Inactive Comments:M79.2 Neruopathic pain Oarrs run MACRODANTIN, 100MG (Oral Capsule) 1 Capsule bid for 10 days Quantity: 20 {Capsule} Refills: 0 Ordered:26-Aug-2011 Colby WATTERS, Eli Renata WATTERS, Elif Start : 26-Aug-2011 End : 05-Sep-2011 Inactive Maxzide 75-50 MG Oral Tablet 1 (one) Tablet qd for 90 days Quantity: 90 {Tablet} Refills: 0 Ordered:23-Apr-2017 Colby WATTERS, Eli Renata WATTERS, Elif Start : 23-Apr-2017 End : 22-Jul-2017 Inactive Meclizine HCl 25 MG Oral Tablet 1 (one) Tablet tid prn for 90 days Quantity: 90 {Tablet} Refills: 0 Ordered:12-Feb-2017 Naomi Hassan LPN Start : 12-Feb-2017 End : 13-May-2017 Inactive MULTIVITAMINS (Oral Capsule) 1 (one) Capsule daily for 0 days Quantity: 30 {Capsule} Refills: 3 Ordered:13-Jun-2015 AKBAR South Start : 18-Oct-2012 End : 13-Jun-2015 Inactive NEURONTIN, 300MG (Oral Capsule) 2 (two) Capsule tid for 900 days Refills: 0 Ordered:30-Sep-2010 AKBAR South Start : 29-Jul-2010 End : 30-Sep-2010 Inactive Nystatin 557572 UNIT/ML Mouth/Throat Suspension 4-6 Milliliter swish and spit qid for 7 days Quantity: 1 {Bottle} Refills: 0 Ordered:03-Jun-2017 Nunu Root Start : 03-Jun-2017 End : 10-Jun-2017 Inactive Omeprazole 40 MG Oral Capsule Delayed Release 1 (one) Capsule DR daily for 0 days Quantity: 30 {Capsule} Refills: 0 Ordered:12-Oct-2017 Naomi Hassan LPN Start : 03-Jun-2017 End : 12-Oct-2017 Inactive Oxybutynin Chloride ER 15 MG Oral Tablet Extended Release 24 Hour 1 (one) Tablet ER 24HR Tablet ER 24HR qd for 90 days Quantity: 90 {Tablet} Refills: 1 Ordered:12-Oct-2017 Naomi Hassan LPN Start : 13-Oct-2016 End : 12-Oct-2017 Inactive Potassium Chloride Marlen ER 20 MEQ Oral Tablet Extended Release 1 (one) Tablet ER q am and 2 q pm for 90 days Quantity: 270 {Tablet} Refills: 2 Ordered:12-Oct-2017 Naomi Hassan LPN Start : 19-May-2016 End : 12-Oct-2017 Inactive PredniSONE 10 MG Oral Tablet 1 Tablet TAD for 0 days Quantity: 18 {Tablet} Refills: 0 Ordered:03-Jan-2018 Naomi Hassan LPN Start : 16-Nov-2017 End : 03-Jan-2018 Inactive Comments:3 pills x 3 days, 2 pills x 3 days, 1 pill x 3 days PROVENTIL HFA, 108 (90 Base)MCG/ACT (Inhalation Aerosol Solution) 2 (two) Aerosol Soln q 6 hr prn for 0 days Quantity: 1 {Aerosol_Soln} Refills: 0 Ordered:13-Nov-2013 AKBAR South Start : 25-Nov-2012 End : 13-Nov-2013 Inactive PYRIDIUM, 100MG (Oral Tablet) 1 Tablet Tablet tid for 2 days Quantity: 6 {Tablet} Refills: 0 Ordered:26-Aug-2011 Sue Ewing LPN Start : 15-Jan-2014 End : 17-Jan-2014 Inactive RAMIPRIL, 2.5MG (Oral Capsule) 1 Capsule qd for 0 days Quantity: 90 {Capsule} Refills: 0 Ordered:30-Apr-2014 Esme Guo Start : 24-Aug-2013 End : 30-Apr-2014 Inactive RISPERDAL, 1MG (Oral Tablet) 1 Tablet bid for 0 days Quantity: 60 {Tablet} Refills: 3 Ordered:10-Mar-2012 AKBAR South Start : 27-Jul-2011 End : 10-Mar-2012 Inactive Comments:sixty SEROQUEL XR, 200MG (Oral Tablet Extended Release 24 Hour) 1 Tablet ER 24HR daily for 0 days Quantity: 30 {Tablet_ER_24HR} Refills: 0 Ordered:17-Feb-2011 AKBAR South Start : 16-Feb-2011 End : 17-Feb-2011 Inactive Comments:after wean up. SEROQUEL XR, 50MG (Oral Tablet Extended Release 24 Hour) 1 Tablet ER 24HR 1 daily for 1 week, 2 daily for 1 week for 0 days Quantity: 21 {Tablet_ER_24HR} Refills: 0 Ordered:17-Feb-2011 AKBAR South Start : 16-Feb-2011 End : 17-Feb-2011 Inactive SYMBYAX, 12-50MG (Oral Capsule) 1 Capsule qd for 0 days Quantity: 30 {Capsule} Refills: 6 Ordered:07-Nov-2012 AKBAR South Start : 07-Nov-2012 End : 07-Nov-2012 Inactive Tessalon Perles 100 MG Oral Capsule 1 (one) Capsule Capsule 1-2 qd for 0 days Quantity: 20 {Capsule} Refills: 0 Ordered:16-Jun-2016 Priya Gillette Start : 12-Dec-2015 End : 16-Jun-2016 Inactive Comments:per [facility] er Topamax 100 MG Oral Tablet 1 Tablet qd for 90 days Quantity: 90 {Tablet} Refills: 0 Ordered:14-Jul-2017 Naomi Hassan LPN Start : 14-Jul-2017 End : 12-Oct-2017 Inactive Triamterene-HCTZ 75-50 MG Oral Tablet 1 (one) Tablet daily for 0 days Quantity: 30 {Tablet} Refills: 0 Ordered:12-Oct-2017 Naomi Hassan LPN Start : 18-Jan-2017 End : 12-Oct-2017 Inactive VESICARE, 10MG (Oral Tablet) 1 (one) Tablet Tablet qd for 0 days Quantity: 30 {Tablet} Refills: 3 Ordered:11-Oct-2014 Edita Cabral MD Start : 11-Oct-2014 End : 11-Oct-2014 Inactive Zithromax Z-Rambo 250 MG Oral Tablet tad Tablet qd for 0 days Quantity: 1 {Package} Refills: 0 Ordered:03-Jan-2018 Naomi Hassan LPN Start : 16-Nov-2017 End : 03-Jan-2018 Inactive Comments:1 rambo as directed ZOSTAVAX, 51990VDC/0.65ML (Subcutaneous Solution Reconstituted) 1 For Solution once SC for 0 days Quantity: 1 {For_Solution} Refills: 0 Ordered:13-Nov-2013 AKBAR South Start : 24-Jul-2013 End : 13-Nov-2013 Inactive ALBUTEROL SULFATE HFA, 108MCG/ACT (Inhalation Aerosol Soln) 1-2 puffs q 4-6 hours prn for 0 days Refills: 0 Ordered:01-Apr-2009 AKBAR South Start : 01-Apr-2009 End : 01-Apr-2009 Discontinued Comments:This order discontinued per [facility]. Atorvastatin Calcium 80 MG Oral Tablet 1 (one) Tablet Tablet at night for 90 days Quantity: 90 {Tablet} Refills: 1 Ordered:18-Jan-2018 Phyllis Saez Start : 24-Nov-2016 End : 18-Jan-2018 Discontinued BuSpar 15 MG Oral Tablet 1 (one) Tablet bid for 0 days Quantity: 60 {Tablet} Refills: 6 Ordered:06-Sep-2017 Phyllis Saez Start : 06-Sep-2017 End : 18-Jan-2018 Discontinued Comments:This order discontinued per [facility]. CeleBREX 200 MG Oral Capsule 1 (one) Capsule PO BID for 0 days Quantity: 60 {Capsule} Refills: 0 Ordered:23-Dec-2017 Mayda Dobbins DO Start : 23-Dec-2017 End : 23-Dec-2017 Discontinued Comments:Take with food Cyclobenzaprine HCl 10 MG Oral Tablet 1 (one) Tablet Tablet tid/prn for 0 days Quantity: 30 {Tablet} Refills: 0 Ordered:18-Jan-2017 Naomi Hassan LPN Start : 03-Dec-2016 End : 18-Jan-2017 Discontinued Comments:thirty CYMBALTA, 60MG (Oral Capsule Delayed Release Particles) Capsule DR Part QD for 0 days Quantity: 30 {Capsule_DR_Part} Refills: 6 Ordered:22-Mar-2007 AKBAR [place] Start : 22-Mar-2007 End : 26-Sep-2007 Discontinued Diflucan 150 MG Oral Tablet 1 (one) Tablet Tablet x1 for 0 days Quantity: 1 {Tablet} Refills: 0 Ordered:04-Jan-2017 Naomi Hassan LPN Start : 30-Apr-2016 End : 04-Jan-2017 Discontinued EFFEXOR, 75MG (Oral Tablet) 1 (one) Tablet BID for 0 days Refills: 0 Ordered:01-Oct-2009 Edita Cabral MD Start : 31-Dec-2008 End : 01-Oct-2009 Discontinued Etodolac 300 MG Oral Capsule 1 (one) Capsule Capsule tid for 0 days Quantity: 30 {Capsule} Refills: 0 Ordered:04-Jan-2017 Eli Bowman CNP, CNP, Mary E Start : 04-Jan-2017 End : 04-Jan-2017 Discontinued Comments:[facility] er FLEXERIL, 10MG (Oral Tablet) 1 (one) Tablet TID/PRN for 0 days Quantity: 30 {Tablet} Refills: 1 Ordered:18-Oct-2012 Esme Guo Start : 18-Oct-2012 End : 30-Apr-2014 Discontinued Comments:This order discontinued per [facility]. GLUCOPHAGE, 500MG (Oral Tablet) 1 Tablet qd for 0 days Quantity: 90 {Tablet} Refills: 3 Ordered:13-Jun-2015 Edita Cabral MD Start : 13-Jun-2015 End : 13-Jun-2015 Discontinued Comments:renal insuff LAMICTAL, 100MG (Oral Tablet) 3 (three) Tablet qd for 0 days Quantity: 270 {Tablet(s)} Refills: 0 Ordered:18-Oct-2012 Edita Cabral MD Start : 18-Oct-2012 End : 18-Oct-2012 Discontinued Comments:two hundred and seventy Lofibra 54 MG Oral Tablet 1 (one) Tablet daily for 0 days Quantity: 30 {Tablet} Refills: 0 Ordered:18-Jan-2018 Phyllis Saez Start : 24-Dec-2017 End : 18-Jan-2018 Discontinued LOVASTATIN, 40MG (Oral Tablet) 2 (two) Tablet QD for 90 days Quantity: 180 {Tablet} Refills: 3 Ordered:13-Nov-2013 Edita Cabral MD Start : 13-Nov-2013 End : 13-Nov-2013 Discontinued Comments:ID [id number] Medrol 4 MG Oral Tablet Therapy Pack 1 (one) Milligram uad for 0 days Quantity: 1 {Package} Refills: 0 Ordered:27-Jul-2017 Naomi Hassan LPN Start : 20-Jul-2017 End : 27-Jul-2017 Discontinued MEVACOR, 40MG (Oral Tablet) 2 qd for 0 days Refills: 0 Ordered:26-Sep-2007 AKBAR [place] End : 26-Sep-2007 Discontinued Mobic 7.5 MG Oral Tablet 1 (one) Tablet Tablet daily for 90 days Quantity: 90 {Tablet} Refills: 1 Ordered:04-Jan-2017 Eli Bowman CNP, CNP, Elif Start : 04-Jan-2017 End : 04-Jan-[address] 500 MG Oral Tablet Delayed Release 1 (one) tablet daily prn for 30 days Quantity: 30 {Tablet} Refills: 3 Ordered:18-Jan-2018 Phyllis Saez Start : 23-Dec-2017 End : 18-Jan-2018 Discontinued Pepcid 20 MG Oral Tablet daily (20 MG) End : 18-Jan-2017 Discontinued PredniSONE 20 MG Oral Tablet 1 Tablet bid for 2days then qd for 4days for 0 days Quantity: 8 {QS} Refills: 0 Ordered:12-Oct-2017 Naomi Hassan LPN Start : 30-Aug-2017 End : 12-Oct-2017 Discontinued TraMADol HCl 50 MG Oral Tablet 1 (one) Tablet Tablet bid for 0 days Quantity: 15 {Tablet} Refills: 0 Ordered:18-Jan-2017 Naomi Hassan LPN Start : 16-Jul-2016 End : 18-Jan-2017 Discontinued Trilipix 45 MG Oral Capsule Delayed Release 1 (one) Capsule DR daily for 30 days Quantity: 30 {Capsule} Refills: 1 Ordered:18-Jan-2018 Phyllis Saez Start : 03-Nov-2017 End : 18-Jan-2018 Discontinued Tropsium Chloride one 60mg tab daily End : 18-Jan-2018 Discontinued Comments:Catrachito Trospium Chloride 20 MG Oral Tablet 1 (one) Tablet bid for 0 days Quantity: 60 {Tablet} Refills: 0 Ordered:18-Jan-2018 SePhyllis Start : 12-Oct-2017 End : 18-Jan-2018 Discontinued Vitamin D3 5000 UNIT Oral Tablet 1 (one) Tablet daily for 0 days Quantity: 30 {Tablet} Refills: 0 Ordered:27-Jul-2017 Naomi Hassan LPN Start : 18-Jan-2017 End : 27-Jul-2017 Discontinued Vitamin D3 64688 UNIT Oral Tablet 1 (one) Tablet Tablet once a week for 60 days Quantity: 8 {Tablet} Refills: 0 Ordered:04-Jan-2017 Slarb 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[employer]aza Start : 24-Nov-2016 End : 04-Jan-2017 Discontinued ZETIA, 10MG (Oral Tablet) 1 qd for 0 days Refills: 0 Ordered:26-Sep-2007 Benoit AKBAR End : 26-Sep-2007 Discontinued Allergies and Adverse Reactions Name Dates Details has tried paxil, prozac, wellbutrin, zoloft and lexapro Status: Active (Allergy) Neurontin-fatigue (Allergy) Status: Active Succinylcholine stifness in arms and legs (Allergy) Status: Active Past Medical History Name Dates Details Abnormal lung sounds (R09.89, 786.7) Status: Resolved as of 02-Sep-2017 ALOPECIA NOS (704.00) Status: Inactive as of 07-Nov-2012 Back pain (M54.9, 724.5) Status: Inactive as of 17-Jan-2015 Balance disorder (781.99) Comments: ? menieres with other vs strokehistory of extreme balance problem and difficulty walking with shoulder droop Status: Inactive as of 12-Feb-2014 BMI 30.0-30.9,adult (Z68.30, V85.30) Status: Inactive as of 27-Jul-2017 BMI 30.0-30.9,adult (Z68.30, V85.30) Status: Resolved as of 29-Sep-2017 BMI 31.0-31.9,adult (Z68.31, V85.31) Status: Inactive as of 27-Jul-2017 BMI 32.0-32.9,adult (Z68.32, V85.32) Status: Resolved as of 29-Sep-2017 BMI 33.0-33.9,adult (Z68.33, V85.33) Status: Inactive as of 20-Jan-2016 BMI 33.0-33.9,adult (Z68.33, V85.33) Status: Resolved as of 29-Sep-2017 BMI 34.0-34.9,adult (Z68.34, V85.34) Status: Resolved as of 29-Sep-2017 BMI 35.0-35.9,adult (Z68.35, V85.35) Status: Resolved as of 29-Sep-2017 BMI 36.0-36.9,adult (Z68.36, V85.36) Status: Inactive as of 03-Jan-2018 Breast cancer screening (Z12.39, V76.10) Status: Inactive as of 13-Jun-2015 Bronchitis (J40, 490) Comments: better than was cough is better. Status: Inactive as of 07-Nov-2012 Bronchitis, acute (J20.9, 466.0) Status: Inactive as of 12-Sep-2009 Carpal tunnel syndrome (G56.00, 354.0) 11-Nov-2010 Status: Inactive as of 07-Nov-2012 CERTAIN ADVERSE EFFECTS NOT ELSEWHERE CLASSIFIED; ALLERGY, UNSPECIFIED (995.3) Status: Inactive as of 07-Nov-2012 Chronic obstructive asthma with acute exacerbation (J44.1, 493.22) Status: Inactive as of 13-Nov-2013 Cough (R05, 786.2) Status: Inactive as of 24-Jul-2013 Dermatophytosis of nail (B35.1, 110.1) Status: Inactive as of 07-Nov-2012 Dizziness (R42, 780.4) Comments: ? meniers vs other Status: Inactive as of 24-Jul-2013 Dysuria (Renamed from Difficult or painful urination) (R30.0, 788.1) Comments: UTI Status: Inactive as of 13-Nov-2013 Elevated LFTs (R94.5, 790.6) Comments: better than was. Status: Inactive as of 12-Dec-2015 Encounter for preprocedural laboratory examination (Renamed from Pre-procedural laboratory examination) (Z01.812, V72.63) Status: Inactive as of 13-Oct-2016 Falling (R29.6, E888.9) Comments: related to meniers or something else, will get labs holter reevaluate in 1 week, consider MRI, Carotids Status: Inactive as of 12-Feb-2014 Gait abnormality (R26.9, 781.2) Status: Inactive as of 12-Feb-2014 Group beta Strep positive (B95.1, 041.02) Status: Inactive as of 20-Jan-2016 Hypokalemia (E87.6, 276.8) Status: Inactive as of 24-Nov-2016 Hypokalemia (Renamed from Decreased potassium in the blood) (E87.6, 276.8) Comments: had held maxide will restart with potassium Status: Inactive as of 24-Jul-2013 Hyponatremia (E87.1, 276.1) Status: Inactive as of 17-Jan-2015 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, 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) Status: Inactive as of 07-Nov-2012 Kidney function abnormal (N28.9, 593.9) Status: Inactive as of 24-Nov-2016 Mononeuritis of lower extremity (G57.90, 355.8) Status: Inactive as of 21-Jan-2016 Mononeuritis of upper limb, unspecified (354.9) Status: Inactive as of 07-Nov-2012 Myalgia and myositis (729.1) Status: Inactive as of 24-Jul-2013 Nausea (R11.0, 787.02) Status: Inactive as of 03-Jan-2018 Need for prophylactic vaccination and inoculation against influenza (Z23, V04.81) Status: Inactive as of 13-Nov-2013 Need for Tdap vaccination (Renamed from Need for jeawgfxzwj-hnkttqs-mhvzdwmvk (Tdap) vaccine, adult/adolescent) (Z23, V06.1) Status: Inactive as of 12-Dec-2015 Other and unspecified hyperlipidemia (E78.5, 272.4) Status: Inactive as of 24-Jul-2013 Pharyngitis, acute (J02.9, 462) Comments: rapid strep negativeCulture Status: Inactive as of 20-Jan-2016 Pneumonitis (J18.9, 486) Status: Inactive as of 14-May-2014 Pre-operative exam (Renamed from Preop examination) (Z01.818, V72.84) Comments: Getting 4 tooth out 07/17 next week, [place] [facility].HAs MARTHA has CPAP but not been using it for 2 years, need to see Bavis for retitration.Cr : 1.77 , repeat labs, US kidneyDM type 2: HBa1c 5.4 BMI:(obesit y increase the risk of wound infection, PE.Not malnourishedLabs:CBCCMPPT/INRtype and screen gel(91212)EK06/10/16: no acute changesHas good social support and assistance post op.If blood work is negativ e patient is considered low to medium risk for perioperative complications.Patient is undergoing surgery for tooth extractionFunctional capacity >4 METS, Denies CP or SOB when climb up 2 flights of stairs,mowing lawn,swimming, riding a bike, jogging,walk up a hill, walk at ground level at 4 miles per hour, or perform heavy work around the house.Denies previous history of anesthesia problems.(Eleazar rctomy 22 june 2016, no compliaction)Deniies anyone in family had a problem following an anesthetic.Denies CAD, angina, irregular heartbeat, CHF,stroke, seizures,asthma, kidney disease, thyroid disea se, liver disease, DM requiring insulin, personal or family history of blood clots, Denies personal or family history of anesthetic complications, malignant hyperthermia.Denies tobacco, alcohol or illi cit drug use.Smoking cessation reduces the risk of postop complication and longer periods of smoking cessation maybe even more effective.Denies use of ASA or ibuprofen or other NSAIDS. Status: Inactive as of 13-Oct-2016 Renal failure (N19, 586) Status: Inactive as of 24-Nov-2016 Shortness of breath (Renamed from Breath shortness) (R06.02, 786.05) 16-Nov-2011 Status: Inactive as of 24-Jul-2013 Sinusitis, acute (J01.90, 461.9) Comments: levaquin 500 mg once daily for 14 days Because of the side effects of antibiotics,use probiotics or lactobacillus acidophillus to keep the good bacteria in the gut.Increase the amount of yogurt with act carlos a cultures.Use warm water with salt gargles for sore throat.Honey lemon elva turmeric tea.Drink lots of fluidsSteam inhalation.Mucinex over the counter to loosen the mucus.Robitussin DM over the cou nter.Flonase nasal spray.Do not use decongestants with high blood pressure or heart disease.Avoid pasta , potatoes, white flour and sweets as infection feeds on it.Lots of rest.If you have worsening fev ers, shortness of breath, chest pain, cough, sinus pain, sore throat or difficulty swallowing, sputum or drainage that is yellow green or symptoms dont improve in a week , give us a call.Given a refil of albuterol inhaler.65-year-old female with past medical history of asthma presents with three-week history of cough, nasal stuffiness. Patient had a visit to the emergency department 3 days ago with complaints of chest pain and shortness of breath. Patient was having cough on and off for 2 weeks. Was hurting to take a deep breath. Denies having a history of PE. denies denied travel, nonsmoker, not on OCPs. In the ED chest x-ray did not reveal any acute process. EKG wEKG of thousand 9. CBC and CMP was within normal l bit 48. Patient has C daily stage I with creatinine 1.53 in September 2015 . Patient was given Lodine 300 mg and Tessalon Perles for cough.For the last 2 days patient is complaining of cough, greenish yellow nasal drainage. Chest pain has improved with lodine PRN. Also comp laining of nasal congestion and sinus pain. Denies postnasal drip, earache, fevers, nausea, vomiting, diarrhea, sore throat.Denies wheezing or SOB.Has not used albuterol INH for some time and asthma i s under good control Patient to use Mucinex rspr-bdw-tipzokg which helped her. Status: Inactive as of 20-Jan-2016 Symptomatic menopausal or female climacteric states (N95.1, 627.2) 11-Nov-2010 Comments: vaginal dryiness will start with coconut oil daily not work then estrogen cream Status: Inactive as of 12-Dec-2015 Thrombocytopenia, unspecified (D69.6, 287.5) Comments: assure not clummping error Status: Inactive as of 24-Jul-2013 Thrush (B37.0, 112.0) Status: Inactive as of 23-Dec-2017 Unspecified Diagnosis Status: Inactive as of 07-Nov-2012 Unspecified Diagnosis Status: Inactive as of 07-Nov-2012 Unspecified disorder of kidney and ureter (N28.9, 593.9) 11-Nov-2010 Comments: CKD mild creat stable but will check 24 hours urine on metformin Status: Inactive as of 13-Jun-2015 Unspecified hearing loss, unspecified ear (H91.90, 389.9) Status: Inactive as of 07-Nov-2012 Urinary frequency (R35.0, 788.41) Status: Inactive as of 12-Feb-2014 Vaginal bleeding (N93.9, 623.8) Comments: 2 months, started provera by gonsalo for 2 months, still bleeding.Tampax super 3- 4/day Status: Inactive as of 24-Nov-2016 Weakness Of Distal Arms And Legs (728.87) Comments: MRI good ? from menieries vague signs and symptoms on asa. carotids good. holter good echo good Status: Inactive as of 13-Nov-2013 Well female exam with routine gynecological exam (Z01.419, V72.31) Status: Inactive as of 07-Nov-2012 Well woman exam (Z00.00, V70.0) Comments: 09-15 reveiwed with patient all questions. needs pap today needs mammo done. talk about colonscopy due but had bad infection after. told get the nonsecented pads. try not to wear night. use mineral oil in vagina to hel lubricate Status: Inactive as of 21-Jan-2016 Procedures Procedure Dates Details bladder Completed Comments: urethra injections Dr. Winston. Cataract Removal, Insert Prosthetic Lens Completed Comments: Bilaterally Colonoscopy Completed Comments: 2000 Tubal ligation 1963 Completed [facility] Left endolymphatic sac Completed decompression with shunt and middle ear infusion with decadron 03/05 Date Value Details 01-Aug-2018 CTA Chest W/WO Contrast Result: Comments: See Note; NOTES: [facility] Imaging Services [address] [place] [address] CTA Chest W/WO Contrast MR#: [id number] Acct: [id number] Name: ELIZABETH TORO Rep #: [id number] : 1950 F 67 From: Hardeep Calix MD PCP: Eli Bowman NP Status: REG CLI Study: CTA Chest W/WO Contrast Date of Exam: 08/01/18 Exam# [id number] Ordering Dr: Eli Bowman STUDY: CTA CHEST/T HORAX REASON FOR EXAM: Female, 67 years old. Shortness of breath, cough, elevated d-dimer. RADIATION DOSAGE (If Supplied By Facility): CTDIvol = ( 10.78 ) mGy, DLP = ( 604.84 ) mGycm TECHNIQUE: The e xamination was performed with the intravenous administration of 100CC ml of Isovue 370 contrast material. Post-processing of the angiographic images was performed, with multiplanar reformation. No 3D re construction. Individualized dose optimization techniques were used for this CT. COMPARISON: PA and lateral chest x-ray July 21, 2018; CTA chest/thorax April 30, 2014. FINDINGS: Normal enhancement of the main pulmonary artery and right and left pulmonary arteries. Normal enhancement of the bilateral peripheral pulmonary arteries. There is no demonstrated pul monary embolism. Normal thoracic aorta and visualized great vessels. There is no demonstrated aortic dissection. Normal heart and pericardium. There are calcifications of the coronary arteries. Ther e is a stable coarse pretracheal calcification. No demonstrated mediastinal or hilar adenopathy. Normal visualized trachea. Mild bronchiectasis predominates in the lung bases. There is subsegmental vo lume loss and crowding versus chronic postinflammatory change surrounding peripheral bronchi in the medial posterior lung bases, unchanged. To a lesser degree, this is seen also in the lateral periphery of the right middle lobe and in the posterior medial mid to upper left chest. Subcentimeter calcified granuloma noted in the anterior periphery of the right upper lobe. Normal pleura. Normal chest wa ll structures. There are stable multilevel degenerative changes of the thoracic spine. Normal visualized upper abdomen. CT/CTA Chest W/WO Contr ast IMPRESSION: 1. No demonstrated pulmonary embolism or arterial dissection. 2. Bronchiectasis again seen in the lung bases, with chronic subsegmental volume crowding or chronic postinflammatory change in the posterior medial lung bases. There are also stable findings of old calcified granulomatous disease, but no new pulmonary or mass. 3. Atherosclerotic calcification of the coronary arteries, uncha nged. Electronically Signed: Silvio Calix MD at 14:38 EDT , Service support , CC: Eli Bowman NP Perioperative Assistant: Signed 29-Jul-2018 Chest PA and Lateral Result: Comments: See Note; NOTES: [facility] Imaging Services [address] [place] [address] Chest PA and Lateral MR#: [id number] Acct: [id number] Name: ELIZABETH TORO Rep #: [id number] : 1950 F 67 From: Cami Klein MD PCP: Eli Bowman NP Status: REG CLI Study: Chest PA and Lateral Date of Exam: 07/29/18 Exam# [id number] Ordering Dr: Eli Bowman STUDY: X-RAY CHEST REASON FOR EXAM: Female, 67 years old. Chest pain. TECHNIQUE: PA and lateral views of the chest. COMPARISON: Prior comparison studies are not available for review at this time. FINDINGS: The lungs are clear and expanded. There is no demonstrated pleural abnormality. There is borderline cardiomegaly. Normal mediastinum and tabby. Normal visualized pulmonary arteries. T here is atherosclerotic tortuosity of the aortic arch and descending thoracic aorta. Normal visualized thoracic spine. Normal visualized ribs, clavicles, and shoulders. There is no demonstrated abnorm ality of the visualized soft tissue structures of the upper abdomen. RAD/Chest PA and Lateral IMPRESSION: No radiographic evidence of acute cardi opulmonary disease. Electronically Signed: Cami Klein MD at 10:43 EDT , Service support , CC: Eli Bowman NP Perioperative Assistant: Signed 21-Apr-2018 Downtime Report Result: Comments: See Note; NOTES: [facility] Medical Records Department [address] [place] [address] Downtime Report MR#: [id number] Acct: [id number] Name: ELIZABETH TORO Rep #: : 1950 67 From: Alon Klein PCP: Eli Bowman NP Status: REG RCR This patient was seen during an EMR downtime April 04, 2018 - April 11, 2018. This patient may have a combination of p aper and electronic documentation or all paper documentation. All documentation is viewable within the e-chart portion of [facility] for each patient visit. 12-Apr-2018 NCS and/or EMG Patient Result: Comments: See Note; NOTES: [facility] Pulmonary Services/Neurology [address] [place] [address] MR#: [id number] Acct: [id number] Name: ELIZABETH TORO Rep #: [id number] : 1950 67 From: Kal Hernandez MD Referring Dr: Eli Bowman NP Status: REG CLI Ordering Dr: Date: Location: [facility] Sex: F C NCS and/or EMG Patient Report Ordering Doctor: Eli Bowman DATE OF SERVIC E: 04/12/18 This is a bilateral lower extremity nerve conduction study and a left lower extremity EMG performed on this 67-year-old female with a history of well-controlled diabetes, for the past severa l months has had bilateral lower extremity pain worse on the left side with weakness and falls. Still has chronic back pain. She describes that her legs suddenly give out without pain. Neurologic examin ation is nonfocal with intact reflexes however she does have mild hammertoe deformities. Bilateral lower extremity sensory and motor nerve conduction study is performed. The motor conduction velocities bilaterally are slowed worse on the right side from the common peroneal and tibial nerves which also demonstrate mild reduction of amplitude and mild prolongation of distal latencies. The tibial H refl ex responses bilaterally are reduced, the sural sensory responses bilaterally are intact. The tibial and peroneal F-wave latencies bilaterally are intact. Left lower extremity needle electromyography i s performed. Muscles evaluated included the extensor digitorum brevis, abductor hallucis, medial gastrocnemius, anterior tibialis, vastus lateralis, and vastus medialis muscles. All muscles demonstrated normal insertional activity with absence of pathologic spontaneous activity. Motor unit potential recruitment pattern and amplitude was normal in all muscles tested. Impression: Abnormal electrophysio logic study of the bilateral lower extremities consistent with primarily motor length dependent polyneuropathy. 04/12/18 1005 <Electronically signed by Kal Hernandez MD> Date ____ Kal Hernandez MD CC: Eli Bowman DEPARTMENT CHAIR; Kal Hernandez MD Date Dictated: 04/12/18949 Date Transcribed: 04/12/18949 Perioperative Assistant: MOHIT Signed 01-Feb-2018 PT D/C Summary (1) Result: Comments: See Note; NOTES: [facility] [address] [place] [address]. [address] [place], [place] [id number] Fax REHABILITATION SERVICES DISCHAR SUMMARY MR#: [id number] Acct: [id number] Name: ELIZABETH TORO Rep #: [id number] : 1950 67 From: Cristopher Francis PT, ATC Referring DrJose: Mayda Dobbins DO Status: REG R Insurance: [facility] PART A B [employer] HP - PT D/C Summary It has been my pleasure to treat ELIZABETH TORO under orders from Mayda Dobbins DR.KFMIGUE for the diagnosis of LBP with radiculopathy fo r a total of 7 visit(s). Discharge Date: Please see the following information for a summary of their discharge status. - Subjective Subjective: The LBP is now gone, but pt notes her neuropathy is re ally bad and makes her feel unsteady. - Pain LBP Pain Intensity (Out of 10): 0 L Knee Pain Intensity (Out of 10): 4 - Overall Improvement % Improvement: 100 - Objective Objective/Function: LBP is now 0/10. B LE's are now rated at 4-/5 throughout. Pt is I with HEP. Pt has achieved low back Rx goals - Goals Goal 1:: Decrease LBP x 50% to aid with IADL's Goal Progress: Goal Met Goal 2:: Increa se B LE strength x 1 grade to aid with gait tolerance Goal Progress: Goal Met Goal 3:: I with HEP Goal Progress: Goal Met - Plan Plan: Discharge - D/C Information If there are questions or concerns re garding this patient's physical therapy, please feel free to call me at [phone]. Thank you for the referral of this patient. Sincerely, Cristopher Francis PT, <Electronically signed by Andrea Francis PT, ATC> 02/01/18 0823 CC: Eli Bowman DEPARTMENT CHAIR; Mayda Dobbins DO [facility] Signed 30-Dec-2017 Inital Evaluation (1) - PT Result: Comments: See Note; NOTES: [facility] [place] [address] Fax REHABILITATION SERVICES INITIAL EVALUATION MR#: [id number] Acct: [id number] Name: ELIZABETH TORO Rep #: [id number] : 1950 67 From: Cristopher Francis PT, ATC Referring DrJose: Mayda Dobbins DO Status: REG RCR Insurance: [employer] PART A B [employer] Patient's Visit Information ELIZABETH TORO is a 67 year old F referred to Physical Therapy by Mayda Dobbins DR.KFNADEENO with a diagnosis of LBP with radiculop athy. Date of Evaluation: 12/30/17 Physical Therapist: Cristopher Francis PT, - Visit Plan Frequency: 2-3x /Week Duration: 4-6 Weeks Plan: SKTC/DKTC, core strengthening, B LE strengthening, balance and proprio ex's, nustep, HEP - Subjective Subjective: Pt reports she has been having LE weakness for a couple months. 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 Pt reports she also h as LBP which she recently received an injection for. Pt notes the pain went away for a little while, but has since returned. Pt does have B LE tingling which is a result of her neuropathy from the knees down to the feet. Pt reports her neuropathy is currently untreated. Pt reports she is unable to get up off the floor secondary to lE weakness. Pt also notes picking up her grandchildren is difficult se condary to LE weakness. No recent Dx tests. Pt reports walking for a prolonged distance increases her LBP. Pt also notes lifting her grandchildren increases her pain. LBP is currently 5/10, but increase s to 10/10 at worst. - Pain LBP Pain Intensity (Out of 10): 5 Pain Intensity Range: 10 - Objective Neuro: B LE sensation is WNL to light touch. B achilles reflex 1/3. LE MMT: B LE's are grossly 3+/ 5 througout. LS ROM: Unable to safely test secondary to pt having menieres disease and poor balance. repeated movements: hooklying SKTC/DKTC 3x10 sec ea alleviates LBP - Goals Goal 1:: Decrease LBP x 5 0% to aid with IADL's Goal Time Frame: 4-6 Weeks Goal 2:: Increase B LE strength x 1 grade to aid with gait tolerance Goal Time Frame: 4-6 Weeks Goal 3:: I with HEP Goal Time Frame: 4-6 Weeks - Rehabil itation Potential Physical Therapy Diagnosis: Pt has LBP, LE weakness, and decreased balance secondary to deg changes in the L/S Rehabilitation Potential: Good - Anticipated Interventions Patient/Clien t Instruction: Educate patient on: Condition, Plan of Care For the Purpose of:: To improve self management Therapeutic Exercise to Include: Strength training, Endurance training, Balance training, Postu ral training, Active ROM, Dynamic Lumbar Stabilization For the Purpose of:: To decrease pain, To increase ROM, To improve muscle performance and motor function Cryotherapy (ice pack, ice massage): Yes T hermo therapy (hot pack): Yes For the Purpose of:: To decrease pain Thank you for the opportunity to evaluate your patient. For Medicare and Medicare HMO plans, please review the plan of care and a pprove it. It will need to be FAXED BACK to us at [phone] for Medicare purposes. Please let me know if there are questions or concerns regarding this plan of care. Physician Signature: Date: <Electronically signed by Cristopher Francis PT, ATC> 12/30/17 1056 CC: Eli Bowman NP; Mayda Dobbins DT: 0 12/30/17 [facility] Signed For Medicare only, by signing this I certify the plan of care. Physicians Signature Date 08-Oct-2017 Operative Report Result: Comments: See Note; NOTES: [facility] Medical Records Department [address] [place] [address] Operative Report 10/08/172017 MR#: [id number] Acct: [id number] Name: XAVIER TORO Rep #: [id number] : 1950 67 From: Oscar Winston MD PCP: Eli Bowman NP Status: REG SDC Y Location: [place] [address] Problem List (1) Intrinsic (urethral) sphincter deficiency (ISD) Status: Acu te Report of Operation Date of Procedure: 10/08/17 Pre-Operative Diagnosis: Intrinsic sphincter deficiency Post-Operative Diagnosis: Same Surgery/Procedure Performed:: Cystoscopy and injection of bulki ng agent into the urethra with Macroplastique Description of Surgical Findings:: 67-year-old female who has a history of stress incontinence she is a history of prior slings and she has an InterStim de vice and she still developing leakage of urine after reviewing everything I think she has intrinsic sphincter deficiency I do not think a second sling would be especially helpful recommended we do a inj ection of the urethra the bulking agent she understands that the injection may not work she also understands injection may need to be staged she may need injection now and then a follow-up injection in several months to help her get control of her bladder. 67-year-old female taken back to the operating room after smooth induction of anesthesia she was placed in dorsal lithotomy position the urethra a nd vaginal area were prepped and draped in usual sterile fashion inspected the urethra with the cystoscope she had a very patulous urethra wide open and the bladder was normal she did have a mild cystoc scarlet. I then first use the needle with a bubble towards the urethra at the 12 o'clock position injected 1 cc of the material at this position I then injected more at 3 o'clock position and then the 9 o'c lock position we then switched over to the second vial then injected some of the 6 o'clock position and then injected more close to the mucosa at the 3:00 and 9 o'clock position at the end of the inject ion to try to do cystoscopy but the urethra is fairly tight did not force the scope through the urethra since is quite tight and wanted disrupt injection drain the bladder with a small catheter and at t his point her anesthesia was reversed we will see how she does with the injections and she will follow-up in about a month for checkup. Type of Anesthesia:: General Drains: none - Admit VTE Documentati on VTE Present on Admission: No VTE Mechan Device Prophylaxis: SCD's VTE Pharm Prophylaxis ordered?: No Reason prophylaxis not ordered:: Treatment Not Indicated 10/08/172021 <Electronically si gned by Oscar Winston MD> Date Oscar Winston MD CC: Eli Bowman NP; Oscar Winston MD Signed 08-Oct-2017 Discharge Instruction Result: Comments: See Note; NOTES: [facility] Medical Records Department [address] [place] [address] Instructions for Home/Discharge Instructions 10/08/171950 MR#: [id number] Acct: [id number] Name: ELIZABETH TORO Rep #: [id number] : 1950 67 From: Oscar Winston MD PCP: Eli Bowman NP Status: REG [facility] Discharge Diet: Light diet - advance as tolerated Discharge Activity: M ay not drive while taking narcotic pain medications. Call your doctor if your incision/area has: Continuous Slow Oozing, Sudden Increased Bleeding Suture Line Care: Avoid Pulling/Pushing, Avoid Pinching /Bending Allergies/Adverse Reactions: Allergies succinylcholine Allergy (Verified 12/04/17 15:08) MUSCLE CONTRACTED Medications to take at Discharge Albuterol Inhaler [Ventolin Hfa (SP)] 1 - 2 puff INHALATION Q4H PRN PRN 04/10/16 Atenolol [Tenormin (beta Jimenez)] 25 mg PO DAILY 04/10/16 Ergocalciferol [Vitamin D] 50,000 unit PO Q7D 04/10/16 Fluoxetine [Prozac] 80 mg PO DAILY 04/10/16 Levothyroxin e [Synthroid] 75 mcg PO DAILY 04/10/16 Liraglutide [Victoza 2-Rambo] 1.2 mg SQ DAILY 04/10/16 Lorazepam [Ativan] 1 mg PO DAILY 04/10/16 Olanzapine [Zyprexa] 10 mg PO QHS 04/10/16 Primary Care Physician: Eli Bowman [Primary Care Provider] - Please Follow Up With: Oscar Winston MD When: please call to make an appointment. 10/08/171950 <Electronically signed by Oscar Winston MD&# 62; Date Oscar Winston MD CC: Eli Bowman NP 30-Aug-2017 Chest PA and Lateral Result: Comments: See Note; NOTES: [facility] Imaging Services [address] [place] [address] Chest PA and Lateral MR#: [id number] Acct: [id number] Name: JAYYELIZABETH A Rep #: [id number] : 1950 F 67 From: Yury Arthur MD PCP: Eli Bowman Status: REG CLI Study: Chest PA and Lateral Date of Exam: 08/30/17 Exam# [id number] Ordering Dr: Mayda Dobbins DO STUDY: X-RAY CHES T REASON FOR EXAM: Female, 67 years old. Difficulty breathing TECHNIQUE: PA and lateral views of the chest. COMPARISON: Chest x-rays from December 08, 2015. FINDIN GS: The lungs are clear and expanded. There is no demonstrated pleural abnormality. Normal size heart. Normal mediastinum and tabby. Normal visualized pulmonary arteries. Normal visualized aortic arch and descending thoracic aorta. Normal visualized thoracic spine. Normal visualized ribs, clavicles, and shoulders. There is no demonstrated abnormality of the visualized soft tissue structures of the upper abdomen. RAD/Chest PA and Lateral IMPRESSION: Normal x-ray examination of the chest. Stable since the prior examination Electronically Sig marek: Yury Arthur MD, FACR at 12:16 EDT , Service support , CC: Eli Bowman; Mayda Dobbins DO Perioperative Assistant: Signed 20-Jul-2017 L/S Spine Min 4 Views Result: Comments: See Note; NOTES: [facility] Imaging Services [address] [place] [address] L/S Spine Min 4 Views MR#: [id number] Acct: [id number] Name: ELIZABETH TORO Rep #: [id number] : 1950 F 66 From: Dionte Lujan DO PCP: Eli Bowman Status: REG CLI Study: L/S Spine Min 4 Views Date of Exam: 07/20/17 Exam# [id number] Ordering Dr: Edita Cabral MD STUDY: X-RAY - LUMBAR SPINE REASON FOR EXAM: Female, 66 years old. Back pain TECHNIQUE: 5 view(s) of the lumbar spine were obtained. COMPARISON: None FINDINGS: Normal lumbar lordosis. There is no substantial scoliosis. Grade 1 anterolisthesis of L4 and L5 with bilateral pars defects. There is multilevel endplate spondylosis of the lumbar vertebrae. There is multi-level degenerative disc disease with multi-level disc space narrowing. There is no demonstrated fracture. The soft tissue structures are unremarkable. RAD/L/S Spi ne Min 4 Views IMPRESSION: Degenerative changes with listhesis as above Electronically Signed: Dionte Lujan DO at 10:12 EDT Tel , Service support , Fax CC: Eli Bowman; Edita Cabral MD Perioperative Assistant: Signed 20-Jul-2017 Shoulder min 2 Views Result: Comments: See Note; NOTES: [facility] Imaging Services [address] [place] [address] Shoulder min 2 Views MR#: [id number] Acct: [id number] Name: ELIZABETH TORO Rep #: [id number] : 1950 F 66 From: Dionte Lujan DO PCP: Eli Bowman Status: REG CLI Study: Shoulder min 2 Views Date of Exam: 07/20/17 Exam# [id number] Ordering Dr: Edita Cabral MD STUDY: X-RAY - RIGHT [facility] REASON FOR EXAM: Female, 66 years old. Shoulder pain TECHNIQUE: 4 view(s) of the shoulder. COMPARISON: None. FINDINGS: Normal glenohumeral articulation. Th ere is degenerative arthrosis of the acromioclavicular joint without inferior osseous spur formation. Normal acromion. Normal humeral head and visualized proximal humerus. The soft tissue structures a re unremarkable. Normal visualized pulmonary apex. RAD/Shoulder min 2 Views IMPRESSION: Degenerative changes without acute findings Electronica lly Signed: Dionte Lujan DO at 10:13 EDT Tel , Service support , CC: Eli Bowman; Edita Cabral MD Perioperative Assistant: Signed 11-May-2017 PT D/C Summary (1) Result: Comments: See Note; NOTES: [facility] 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 Discharge Date: 05/11/17 Please see the following information for a summary of their discharge status. - Subjective Subjective: Pt reports that she has no pain. Pt reports no knee pain for 2 weeks. She is back to doing all activities that she was doing prior to this and sleeping ok. - Pain L knee pain Pain Intensity (Out of 10): 0 - Overall Improvement % Improvement : 100 - Objective Objective/Function: B KNEE AROM: -1 degrees extension and 120 degrees L knee and 121 degrees R knee flexion. B LE MMT: B hip flex 4/5, B knee ext 4-/5, B knee flex 4/5, hip abd 4/5 B, 3/4 ROM bridge. Gait: still walks slow with short strides and guarded but pt reports it is at baseline - Goals Goal 1:: I HEP Goal Progress: Goal Met Goal 2:: Increase LE strength by 1/2 muscle grade to increase ease of functional activities Goal Progress: Goal Met Goal 3:: Increase L knee AROM to 0-130 degrees without pain Goal Progress: Progressing Goal 4:: Decrease L knee pain to 2/10 with sittin g and 3/10 with gait and functional activities. Goal Progress: Goal Met - Plan Plan: DC PT to HEP. - D/C Information Discharge Comments: DC PT If there are questions or concerns regarding this patient 's physical therapy, please feel free to call me at [phone]. Thank you for the referral of this patient. Sincerely, Naomi Osorio <Electronically signed by Naomi Osorio MPT> 09/17 0919 CC: Nunu Root; Eli Bowman Signed 14-Apr-2017 Inital Evaluation (1) - PT Result: Comments: See Note; NOTES: [facility] 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 Date of Evaluation: 04/13/17 Physical Therapist: Naomi Osorio - Visit Plan Frequency: 2x /Week Duration: 4-6 Weeks Plan: 2X/ week for 4-6 weeks for L knee AROM, stretching (HS and gastroc, I Tband), L hip and knee strengthening, gait training, functional activities (such as stairs and curb steps)with HEP and modalities PRN. - Subjective Subjective: Pt has pain on the L knee on the lateral side of her L knee and goes from lateral calf to lateral thigh. It feels like someone is grabbing her knee and twisting it. It started about 3 weeks ago for no reason. Pt has no balance on her L side du e to Menieres disease. She onlu has hearing on the R side. She stumbles alot on her L side. No R knee pain. Stairs: pt does not do stairs and would have trouble before the L knee injury due to balance i ssues. Patients L knee pain is about 8/10 with moving. Sitting is just achy pain, Did x-rays and arthritis present now. talked about injections....slowly improving. Pt is up and trying to use her L k nee but it is painful - Pain L knee pain Pain Intensity (Out of 10): 5 Pain Intensity Range: 8 - Objective Gait: walks with WBOS and decreased stance time on the L LE with very obvious antalgic gai t. Pt's LE are shaky with muscle activitation and pt reports that Dr Fox said it was due to anxiety. L knee girth measurements: 33.7cm 36.5cm 40.2cm. R knee girth measurements: 34.9cm 38cm 41.4cm. L k nee AROM: -3 degrees and 95 degrees. R knee AROM: -4 degrees and 135 degrees. Palpation: Tender at lateral joint line on the L. Tender along the ITband on the L. Decreased gastroc and HS muscle length o n the L compared to the R. LE MMT: B hip flex 3-/5, B knee ext 3-/5, B knee flex 4-/5, B hip abd 3-/5. Pt is able to heel and toe raise with UE support with 1/2 the normal ROM. - Goals Goal 1:: I HEP G oal Time Frame: 4-6 Weeks Goal 2:: Increase LE strength by 1/2 muscle grade to increase ease of functional activities Goal Time Frame: 4-6 Weeks Goal 3:: Increase L knee AROM to 0-130 degrees without pa in Goal Time Frame: 4-6 Weeks Goal 4:: Decrease L knee pain to 2/10 with sitting and 3/10 with gait and functional activities. Goal Time Frame: 4-6 Weeks - Rehabilitation Potential Rehabilitation [place] tial: Good - Anticipated Interventions Therapeutic Exercise to Include: Strength training, Balance training, Flexibilty training, Gait and locomotor training, Passive ROM, Active ROM, Dynamic Lumbar St abilization For the Purpose of:: To decrease pain, To decrease swelling/inflammation, To increase ROM, To improve nutrient delivery to tissue, To improve muscle performance and motor function, To improv e ability to perform ADL's, To increase tolerance to activity/condition/position Functional Training to Include: Gait training For the Purpose of:: To improve gait and locomotor functions Manual Therapy Techniques to Include: Mobilization, Passive ROM, Soft tissue mobilization For the Purpose of:: To decrease pain, To increase ROM, To improve nutrient delivery to tissue, To improve muscle performance and motor function, To improve ability to perform ADL's, To increase tolerance to activity/condition/position Cryotherapy (ice pack, ice massage): Yes Thermo therapy (hot pack): Yes Ultrasound (thermal/ non thermal): Yes For the Purpose of:: To decrease pain, To decrease swelling/inflammation, To increase ROM, To improve nutrient delivery to tissue, To improve muscle performance and motor function, To improve ability to perform ADL's Thank you for the opportunity to evaluate your patient. For Medicare and Medicare HMO plans, please review the plan of care and approve it. It will need to be FAXED BACK to us at [phone] for Medicare purposes. Please let me know if there are questions or concerns regarding this plan of care. Physician Signature: Date: <Electronically signed by Naomi Osorio MPT> 04/14/17 1906 CC: Nunu Root; Eli Bowman Signed For Medicare only, by sign ing this I certify the plan of care. Physicians Signature Date 08-Apr-2017 Knee 4 or More Views Result: Comments: See Note; NOTES: [facility] Imaging Services [address] [place] [address] Verdana 4d Knee 4 or More Views MR#: [id number] Acct: [id number] Name: ELIZABETH TORO p #: [id number] : 1950 F 66 From: Chalino Mancia MD PCP: Eli Bowman Status: REG CLI Study: Knee 4 or More Views Date of Exam: 04/08/17 Exam# [id number] Ordering Dr: Mayda Dobbins DO STUDY: X-RAY - RIGHT KNEE REASON FOR EXAM: Female, 66 years old. TECHNIQUE: view(s) of the knee. COMPARISON: None. FINDINGS: There is a small bony enthesophyte from the superior margin of the patella. There are also small spurs from the tibial and femoral condyles but no knee joint effusion. There are no fractures. The quadriceps and patellar tendons are radha l. RAD/Knee 4 or More Views IMPRESSION: Moderate osteoarthritis of the right knee. No fracture Electronically Signed: Chalino Macnia, 20 17/04/09 at 6:58 EDT Tel , Service support , CC: Eli Bowman; Mayda Dobbins DO Perioperative Assistant: Signed 08-Apr-2017 Knee 4 or More Views Result: Comments: See Note; NOTES: [facility] Imaging Services [address] [place] [address] Verdana 4d Knee 4 or More Views MR#: [id number] Acct: [id number] Name: JAYYELIZABETH A Re p #: [id number] : 1950 F 66 From: Chalino Mancia MD PCP: Eli Bowman Status: REG CLI Study: Knee 4 or More Views Date of Exam: 04/08/17 Exam# [id number] Ordering Dr: Mayda Dobbins DO STUDY: X-RAY - LEFT KNEE REASON FOR EXAM: Female, 66 years old. Pain TECHNIQUE: 4 view(s) of the knee. COMPARISON: None. FINDINGS: There is mild osteoarthritis of the left knee demonstrated by small spurs from the tip of the femoral condyles and from the margins of the patella. There is no knee joint effusion. Quadriceps and patellar tendons are normal. There are no fractures. RAD/Knee 4 or More Views IMPRESSION: No fractures. Mild osteoarthritis of the left knee Electronically Signed: Chalino Bray, at 6:59 EDT Tel , Service support , CC: Eli Bowman; Mayda Dobbins DO Perioperative Assistant: Signed 15-Mar-2017 Sleep Study Report Result: Comments: See Note; NOTES: [facility] [address] [place] [address] Polysomnography with NCPAP MR#: [id number] Acct: [id number] Name: ELIZABETH TORO p #: [id number] : 1950 66 From: Kal Hernandez MD PCP: Eli Bowman Status: REG CLI Ordering Dr.: Eli Bowman Date: 03/01/17 Sex: F C DATE OF SERVICE: 03/01/2017 SCORING RULES: Respiratory otilia nts were acquired and scored in accordance with the Recommended Standards and Specifications as outlined in the AASM Manual for the Scoring of Sleep and Associated Events ( most recent version). Please note that a reference to [facility] AHI in this report is consistent with the current Hypopnea definition according to Medicare Criteria and an AASM AHI reference is consistent with the current Hypopnea defini tion according to the AASM criteria and is recognized by [facility] as the RDI. PROCEDURE: The study was attended continuously by a sterile processing technician. Monitored parameters included left and right EOG, frontal, central, and occipital EEG, mental and submental EMG, left and right anterior tibialis EMG, signal ECG waveform, snore, continuous airflow with PAP device flow signal, chest and abdominal plethysmograp hy efforts, oxygen saturation with heart rate, and body positioning with video monitoring. REFERRING: Eli Bowman. SLEEP HISTORY: This is a CPAP titration study performed on this 66-year-old female wit h a body mass index of 30.9 and an Bartlett Sleepiness Scale score of 6. There is a history of obstructive sleep apnea. MASK USED DURING THE STUDY: Is a medium [employer] Simplus full face mask w ith heated humidity. SLEEP SUMMARY: Lights out occurred at 9:38 p.m. and lights on at 5:11 a.m. for a total recording time of 451.8 minutes and a sleep period of time of 447 minutes. Total sleep time i s 396 minutes, sleep efficiency is 87.6% and sleep latency is 4.9 minutes. There was 1 REM period with a REM latency of 311.5 minutes. Slow wave sleep was not detected during this study. RESPIRATORY DA TA: The total AHI is 1.1 with a REM AHI of 3.4 by AASM criteria and by CMS criteria the total AHI was 0.6 and REM AHI was 3.4. The supine RDI is 0.9 and 0.2 respectively, the patient was supine for 70.5 % of sleep, 279 minutes. Limb movement index was mild at 6.5 events per hour. Oxygen saturation ranged from 82-97% with a mean of 93.4%. Desaturations below 88% occurred for 0.5 minutes of total sleep time. Pulse rate ranged from 51-70 beats per minute with a mean of 55.2 beats per minute. No arrhythmias were identified. Nasal CPAP was initiated at 8 cm and titrated to 9 cm. At a setting of 9 cm, 35 minutes and 30 seconds of REM sleep and 2 hours and 58 minutes of non-REM sleep was recorded with an AASM AHI of 1.7, CMS AHI of 1.1 and a minimum oxygen saturation of 82%, mean was 93.3% at this set ting and EPR of 3 was utilized, the patient experienced REM sleep, but not supine REM sleep. IMPRESSION: Obstructive sleep apnea. RECOMMENDATIONS: Nasal CPAP therapy with a setting of 9 cm with the ab ove recommended mask and heated humidity. This patient did not experience supine REM sleep during the study, which may underestimate the CPAP requirement, the patient should be clinically followed and i f excessive daytime somnolence and/or snoring does not resolve, repeat CPAP study can be requested. Kal Hernandez MD T: NTS JOB: [id number] CC: Kal Hernandez MD 115 [id number] 03/15/17 1451 <Electronically signed by Kal Hernandez MD> Date Kal Hernandez MD Co-signature (if applicable) Date Signed 05-Jan-2017 Esophagus Only Result: Comments: See Note; NOTES: [facility] Imaging Services [address] [place] [address] Verdadamian 4d Esophagus Only MR#: [id number] Acct: [id number] Name: ELIZABETH TORO Rep #: [id number] : 1950 F 66 From: Gabriela Ragland MD PCP: Eli Bowman Status: REG CLI Study: Esophagus Only Date of Exam: 01/05/17 Exam# [id number] Ordering Dr: Sofia Bragg MD STUDY: AIR-CONTRAST ESO PHAGRAM STUDY REASON FOR EXAM: Female, 66 years old. Vomiting RADIATION DOSAGE (If Supplied By Facility): CTDIvol = ( ) mGy, DLP = ( ) mGycm FLUOROSCOPY TIME (if supplied): (0:28) minutes/seconds, 14 images. TECHNIQUE: Barium pill swallow with sips of water is performed at the beginning of the study without difficulty. Multiple barium swallows were performed under fluoroscopic monitoring. Multiple views of the esophagus, the upper stomach were performed. COMPARISON: None. FINDINGS: Barium pill swallow with sips of water is performed at the beginning of the study without difficulty. The esophagus appears normal in size and shape it shows unremarkable mucosal pattern. There is no evidence of hiatal hernia or abnormal vascular compression. RAD/Esophagus Only IMPRESSION: Unremarkable study. Electronically Signed: Gabriela Ragland MD at 8:43 EST Tel , Service support [phone], CC: Eli Bowman; Sofia Bragg MD Perioperative Assistant: Signed 29-Dec-2016 Emergency Department Summary Result: Comments: See Note; NOTES: [facility] Medical Records Department [address] [place] [address] Emergency Department Summary MR#: [id number] Acct: [id number] Name: XAVIER TORO Rep #: [id number] : 1950 66 From: Sofia Bragg MD PCP: Eli Bowman Status: DEP ER DATE OF SERVICE: 12/29/2016 CHIEF COMPLAINT: Sore throat. HISTORY OF PRESENT ILLNESS: This is a 66-year- old woman that states she was at [employer], choked on a piece of potato 5 days ago. Someone performed the Heimlich maneuver on her and she was okay, but she has had pain with swallowing solid foods ever since. She is able to drink liquids but her throat is just continuing to really hurt and so she comes in here. She has not had a problem like this before. She has never had an endoscopy and does not have a GI doctor. PHYSICAL EXAMINATION: VITAL SIGNS: Noted and unremarkable. GENERAL: She looks well, is sitting quietly in bed and nondistressed. She is not drooling and has no stridor, is phillips ndling her secretions fine. HEENT: Oropharynx is clear. She does have slightly dry mucous membranes. NECK: Supple and nontender. No adenopathy, no thyromegaly. LUNGS: Clear to auscultation bilaterally, nonlabored breathing. CLINICAL COURSE AND DECISION MAKING: I actually discussed the case with Dr. Pena who is application packager for GI and he suggested ordering an outpatient esophagram as well as putting the patient on Pepcid and that is as needed. She can be scoped as an outpatient. I certainly do not see any sign of an impaction and I feel that this could easily be done as an outpatient. She was discharge d in good condition after receiving a GI cocktail and did get a prescription for Pepcid. DIAGNOSIS: Esophagitis. MD Dominguez Rose C: Eli Pena MD T: NTS JOB: [id number] 12/29/16 <Electronically signed by Sofia Bragg MD> Date Sofia Bragg MD Cosigner Signature (If Indicated): Date CC: Eli Bowman; Junior Pena Date Dictated: 12/29/161828 Date Transcribed: 12/29/161828 Perioperative Assistant: Signed 29-Dec-2016 Discharge Instruction Result: Comments: See Note; NOTES: [facility] Medical Records Department [address] [place] [address] Discharge Instruction 12/29/161829 MR#: [id number] Acct: [id number] Name: ELIZABETH TORO Rep #: [id number] : 1950 66 From: Sofia Bragg MD PCP: Eli Bowman Status: REG ER ED Disposition - Plan for ED Patient: Chief Complaint: Other, Pain/Inj Instructions: Esophagitis Pr escriptions: Famotidine [Pepcid] 40 mg PO DAILY #30 ml Referrals: Eli Bowman [Primary Care Provider] - As soon as possible Junior Pena MD [STAFF PHYSICIAN] - As soon as possible What to do if you have Problems For any increased pain, shortness of breath, bleeding, nausea or vomiting, chest pain, or any unexpected problems, contact your Primary Care Provider. Call [facility] ([phone] ) or report to the closest Emergency Room. Call 911 if necessary. 12/29/161832 <Electronically signed by Sofia Bragg MD> Date Sofia elliott MD Cosigner Signature (If Indicated): Date CC: Eli Bowman 07-Aug-2016 Sleep Study Report Result: Comments: See Note; NOTES: [facility] [address] [place] [address] Split Night Sleep Study MR#: [id number] Acct: [id number] Name: ELIAZBETH TORO Rep #: [id number] : 1950 65 From: Kal Hernandez MD PCP: Donnie Gonzales Status: REG CLI Ordering Dr.: Donnie Gonzales Date: 08/03/16 Sex: F C DATE OF SERVICE: 08/03/2016 SCORING RULES: Respiratory ev ents were acquired and scored in accordance with the Recommended Standards and Specifications as outlined in the AASM Manual for the Scoring of Sleep and Associated Events ( most recent version). Please note that a reference to [facility] AHI in this report is consistent with the current Hypopnea definition according to Medicare Criteria and an [facility] AHI reference is consistent with the current Hypopnea defin ition according to the AASM criteria and is recognized by [facility] as the RDI. PROCEDURE: The study was attended continuously by a sterile processing technician. Monitored parameters included left and right EOG, frontal , central, and occipital EEG, mental and submental EMG, left and right anterior tibialis EMG, signal ECG waveform, snore, continuous airflow with PAP device flow signal, chest and abdominal plethysmogra phy efforts, oxygen saturation with heart rate, and body positioning with video monitoring. REFERRING PHYSICIAN: Dr. Donnie Gonzaels SLEEP HISTORY: This is a split night sleep study performed on this 65-y ear-old female with a body mass index of 29.3 and Bartlett Sleepiness Scale score of 2. There is a history of hypertension and previous diagnosis of obstructive sleep apnea; however, no records are avail able. There is also history of diabetes, Meniere's disease, coronary artery disease, bipolar disorder. MASK USED DURING THE STUDY: AirFit P10 extra small mask with heated humidity. SLEEP SUMMARY: Janee tellez the diagnostic portion of the test, lights out occurred at 10:23 p.m. and lights on at 12:47 a.m. for a total recording time of 144.7 minutes and a sleep period time of 142.6 minutes. Total sleep martin e was 139 minutes and sleep efficiency was 96.1%. Only stage N1 and stage N2 sleep were recorded. There was no slow wave or REM sleep. The total AHI was 28.5 by AASM criteria and 14.7 by CMS criteria, a gain no REM sleep was recorded and the supine RDI was 28.5 and 14.7 respectively. The patient was supine for the entire diagnostic portion of the study of 139 minutes. There were no significant leg move ments recorded during the diagnostic portion of the test, oxygen saturation ranged from 80% to 96% with a mean of 98.8% and desaturations below 88% for 19.5 minutes of the diagnostic portion of the test . Pulse rate ranged from 54-76 beats per minute with a mean of 63.6 beats per minute and no arrhythmias during the diagnostic portion of the test. In accordance with a split night protocol due to sever e events, nasal CPAP was initiated and titrated. During the treatment analysis portion of the test, lights out occurred at 12:55 a.m. and lights on at 5:01 a.m. for a total recording time of 246.1 minut es and sleep period of time of 240.4 minutes. Total sleep time was 195.5 minutes and sleep efficiency was 79.5% with a sleep latency of 5.7 minutes, 2 REM periods, but no slow wave sleep. The total AHI was 8 by AASM criteria and 1.5 by CMS criteria and the REM AHI was 32.4 and 6.5 respectively. The supine RDI was 8 and 1.5 respectively. The patient was supine throughout the treatment analysis portion of the study of 195.5 minutes. No leg movements were recorded, and oxygen saturation ranged from 87% to 96% with a mean of 92.7% and saturations below 88% for only 0.2 minutes of sleep time. Heart rate ranged from 50-67 beats per minute with a mean of 67.3 beats per minute and no arrhythmias during the treatment analysis portion. Nasal CPAP was initiated at 7 cm and titrated to 9 cm. At a setting of 9 cm, the minimum oxygen saturation was 90%, the AASM AHI was improved to 8.7 and the CMS AHI was improved to 1.3. This setting included 11 minutes of REM sleep and 1 hour and 18 minutes of non-REM slee p. IMPRESSION: Severe obstructive sleep apnea. RECOMMENDATIONS: Nasal CPAP with a setting of 9 cm with the above recommended mask and heated humidity. Kal Hernandez MD T: NTS JOB: [id number] CC : Kal Hernandez MD [id number] 08/07/16 0959 <Electronically signed by Kal Hernandez MD> Date Kal Hernandez MD Co-signature (if applicable) Date Signed -Aug-2016 Kidney and Bladder Result: Comments: See Note; NOTES: [facility] Imaging Services [address] [place] [address] Verdana 4d Kidney and Bladder MR#: [id number] Acct: [id number] Name: ELIZABETH TORO Rep #: [id number] : 1950 F 65 From: Anibal Lan MD PCP: Donnie Gonzales Status: [facility] Study: Kidney and Bladder Date of Exam: 08/04/16 Exam# [id number] Ordering Dr: Beto Henry MD UDY: RENAL ULTRASOUND - COMPLETE REASON FOR EXAM: Female, 65 years old. Stage III chronic renal disease. TECHNIQUE: Ultrasound evaluation of the kidneys was performed with real-time and static oakley-sc kimberly imaging. COMPARISON: Comparison is made with prior study dated February 11, 2015. FINDINGS: RIGHT KIDNEY: Normal location of the right kidney, which is normal in size. The right kidney measures 9.7 cm x 5.2 cm x 3.8 cm. There is a normal cortex of the right kidney. The renal cortex measures 1.3 cm. There is no right renal mass or cyst. Findings suggest 3 nonobst ructive intrarenal calculi. The larger measures 8 mm. There is no right hydronephrosis. DISTAL RIGHT URETER: There is non-visualization of the distal right ureter. There is no demonstrated right ureter ovesical junction calculus. There is a visualized right ureteral jet. LEFT KIDNEY: Normal location of the left kidney, which is normal in size. The left kidney measures 9.1 cm x 3.9 cm x 4.6 cm. There is a normal cortex of the left kidney. The renal cortex measures 1.3 cm. There is no left renal mass or cyst. A suspected 5 mm nonobstructive calculus is seen. There is no left hydronephrosis. DISTAL L EFT URETER: There is non-visualization of the distal left ureter. There is no demonstrated left ureterovesical junction calculus. There is no demonstrated left ureteral jet. BLADDER: The distended urin samuel bladder has a volume of 375.5 ml. The empty urinary bladder has a volume of 43.9 ml. There is a normal wall thickness of the distended urinary bladder. There is no demonstrated mass within the urina ry bladder. There are no demonstrated bladder calculi. US/Kidney and Bladder IMPRESSION: Stable bilateral nonobstructive intrarenal calculi. El ectronically Signed: Anibal Lan MD at 11:16 EDT Tel [phone], Service support [phone], CC: Soumya Henry M.D.; Donnie Gonzales Perioperative Assistant: Signed 23-Jun-2016 Operative Report Result: Comments: See Note; NOTES: [facility] Medical Records Department [address] [place] [address] Operative Report MR#: [id number] Acct: [id number] Name: ELIZABETH TORO Rep #: [id number] : 1950 65 From: Gm Brush MD PCP: Donnie Gonzales Status: REG [facility] DATE OF SERVICE: 06/22/2016 DATE OF PROCEDURE: June 22, 2016 SURGEON: Gm Brush M.D. SERVICES ACCOUNT MANAGER: Lia jacinto. ANESTHESIA: Gem Shelby and Frank Brush M.D. TYPE OF ANESTHESIA: General endotracheal. PREOPERATIVE DIAGNOSIS: Simple endometrial hyperplasia. POSTOPERATIVE DIAGNOSIS: Simple endometrial hyp erplasia. PROCEDURE: Robotic-assisted vaginal hysterectomy and bilateral salpingo- oophorectomy. FINDINGS: Approximately, a 5 cm fibroid uterus with normal- appearing fallopian tubes and ovaries. INDIC ATIONS: This is a 65-year-old white female, 2, para 2, who was noted recently to have simple endometrial hyperplasia at the time of the D and C. Despite the D and C, she has continued to bleed f or almost 3 weeks straight afterwards and desires that we proceed with the above surgery. The patient has been counseled regarding the risks and indications of this procedure including the possibility o f bleeding, infection, and injury to surrounding structures such as bowel and bladder and desired that we proceed. All questions were answered. DESCRIPTION OF PROCEDURE: The patient was taken the opera tin room where after induction of general anesthesia, she was placed in dorsal lithotomy position on a nonslip beanbag type device and prepped and draped in usual sterile fashion. A Man catheter was placed and anterior cervix grasped with a tenaculum. A 0-Vicryl suture was placed at 3 o'clock position of the cervix and cervix was dilated to about 3-4 mm and uterus sounded to about 6 cm. The small V Care device was placed on the cervix and tenaculum was removed from the cervix and attention turned toward the laparoscopic portion of the procedure. An 8-mm camera port was placed approximately 2 cm s uperior to the umbilicus and robotic 8-mm ports were placed approximately 12 cm lateral to the umbilicus. A left upper quadrant AirSeal port was also placed, which was 5 mm. Prior to inserting all of th ovidio ports, approximately 20 mL of 0.5% ropivacaine was injected at the port sites. The above findings were noted and the robot was docked without difficulty and attention was turned toward the robotic h ysterectomy portion of the procedure. Infundibulopelvic ligaments were ligated with bipolar cautery in a setting of 35 bentley coagulation to the level of the uterine artery. At the level of the round li gament, however, the posterior aspect of the cervix was visualized and monopolar cautery was used to identify the VCare device, which had been placed vaginally. The anterior peritoneum was then incised, and a bladder flap was developed. After ligating each uterine artery, the anterior vaginal mucosa was opened anteriorly with monopolar cautery and cervix circumscribed without difficulty. Uterus was re moved through the vagina along with the fallopian tubes and ovaries. Hemostasis was noted and Flaco angles sutures were placed on each angle with 0 Vicryl suture and the mid portion of the vaginal cuff was closed with 0 Monocryl V-Loc suture in 2 layers. Hemostasis was noted and the right ureter was noted to peristalse. Laparoscopic instruments with as much CO2 gas as possible were removed after undo cking the robot and incisions were closed with interrupted and running 4-0 Monocryl suture. Steri-Strips and Op-Sites were placed across the incisions. The patient tolerated the procedure well and was t aken to recovery room in satisfactory condition. Sponge, instrument, needle counts were all reported correct. Estimated blood loss for the case was minimal. There were no apparent complications of the surgery. SPECIMENS TO PATHOLOGY: Uterus, bilateral fallopian tubes and ovaries. Gm Brush MD T: NTS JOB: [id number] 06/23/16 0725 <Electronically signed by Gm Brush MD> Date __ Gm Brush MD Cosigner Signature (If Indicated): Date CC: Gm Brush MD; Donnie Nolasco Dicta nahed: 06/22/161102 Date Transcribed: 06/22/161102 Perioperative Assistant: Signed 22-Jun-2016 Discharge Instruction Result: Comments: See Note; NOTES: [facility] Medical Records Department [address] [place] [address] Instructions for Home/Discharge Instructions 06/22/16 0904 MR#: [id number] Acct: [id number] Name: ELIZABETH TORO Rep #: [id number] : 1950 65 From: Gm Brush MD PCP: Donnie Gonzales Status: REG [facility] Discharge Diet: No Restrictions Discharge Activity: Return to Normal Activ ity, May Not Drive - while taking narcotic pain medications., May Shower May resume sexual activity in: 6-8 weeks Call your doctor if your incision/area has: Continuous Slow Oozing, Sudden Increased Ble eding, Increased Pain/ Swelling, Increased Redness, Foul Smelling Discharge Call your doctor if you observe: Fever of 101 or Higher, Inability to urinate, Inability to have a bowel movement, Using more than one pad per hour Allergies/Adverse Reactions: Allergies No Known Allergies Allergy (Verified 06/22/16 08:19) Medications to take at Discharge Albuterol Inhaler [Ventolin Hfa (SP)] 1 - 2 puff I NHALATION Q4H PRN PRN 04/10/16 Atenolol [Tenormin (beta Jimenez)] 25 mg PO DAILY 04/10/16 Ergocalciferol [Vitamin D] 50,000 unit PO Q7D 04/10/16 Fluoxetine [Prozac] 80 mg PO DAILY 04/10/16 Levothyroxine [Synthroid] 75 mcg PO DAILY 04/10/16 Liraglutide [Victoza 2-Rambo] 12 mg SQ DAILY 04/10/16 Lorazepam [Ativan] 1 mg PO DAILY PRN PRN 04/10/16 Meloxicam [Mobic] 7.5 mg PO DAILY 04/10/16 Olanzapine [Zyprexa ] 10 mg PO DAILY 04/10/16 Oxybutynin Chloride [Ditropan Xl] 15 mg PO DAILY 04/10/16 Topiramate [Topamax] 100 mg PO DAILY 04/10/16 Docusate Sodium [Colace] 100 mg PO BID PRN PRN #60 capsule 06/22/16 Oxyc odone [Oxyir] 5 mg PO Q4H PRN PRN #20 tablet 06/22/16 The following prescriptions were given: Oxycodone [Oxyir] 5 mg PO Q4H PRN PRN #20 tablet PRN Reason: Mod- Severe Pain (-08/10) Docusate Sodium [Co lace] 100 mg PO BID PRN PRN #60 capsule PRN Reason: Constipation Please Follow Up With: Gm Brush When: 2-3 weeks 06/22/16 0904 <Electronically signed by Gm Brush MD> Date ____ Gm Brush MD CC: Donnie Gonzales 10-Jun-2016 ELECTROCARDIOGRAM, COMPLETE (ECG) ([id number]) Result: [MEASUREMENTS ANALYSIS] Date of Test: 06/10/2016 09:39:53; Heart Rate: 58; MI Interval: 208; QRS: 86; QT Interval: 480; Corrected QT Interval (QTc): 477; P Wave Clifton: 45; QRS Wave Clifton: 11; T Wave Clifton: 23; Blood Pressure: 112/70 [ECG DIAGNOSTIC STATEMENTS] Date of Test: 06/10/2016 09:39:53; Summary: Sinus Bradycardia - Negative T-waves -May be normal - possible Anteroseptal ischemia. BORDERLINE 13-Apr-2016 Operative Report Result: Comments: See Note; NOTES: [facility] Medical Records Department [address] [place] [address] Operative Report MR#: [id number] Acct: [id number] Name: XAVIER TORO Rep #: [id number] : 1950 65 From: Gm Brush MD PCP: Edita Cabral MD Status: [facility] DATE OF SERVICE: 04/13/2016 DATE OF PROCEDURE: April 13, 2016 SURGEON: Gm Brush M.D. ANESTHESIA: Priscila Casanova CRNA TYPE OF ANESTHESIA: MAC. PREOPERATIVE DIAGNOSIS: Postmenopausal bleeding. POSTOPERATIVE DIAGNOSIS: Postmenopausal bleeding with endometrial polyp. PROCEDUR E: Diagnostic hysteroscopy and fractional D and C. FINDINGS: Approximately a 5 cm endometrial cavity with a 0.5 cm posterior polyp in the uterus. This was removed intact and afterwards, the polyp w as noted to be completely removed. Cervix had minimal descensus, which would make a vaginal hysterectomy difficult and requiring Robotic-assisted vaginal hysterectomy if additional surgery is needed. INDICATIONS: This is a 65-year-old white female 2, para 2, who has had problems with postmenopausal bleeding recently. Ultrasound showed a thickened endometrium. Given this, it was decided to proceed with the above surgery. The patient was counseled regarding the risks and indications of this procedure including the possibility of bleeding, infection, and injury to surrounding structure s such as bowel and bladder and desired that we proceed. All questions were answered. DESCRIPTION OF PROCEDURE: The patient was taken the operating room, where after she was given IV sedation, she w as placed in dorsal lithotomy position and prepped and draped in the usual sterile fashion. The cervix was grasped with a tenaculum and cervix progressively dilated to about 5 mm after obtaining endo cervical curettings. A 3 mm hysteroscope was placed in the uterus and the above findings were noted. In the course of the procedure, approximately 75 mL of saline distending solution was used and virt ually all of this was recovered. After completing the hysteroscopic portion of procedure, the cervix was progressively dilated to about 7-8 mm and the uterus was gently curetted removing all contents including the polyp. The hysteroscope was reinserted and it was noted that the polyp had been completely excised. The tenaculum was removed and hemostasis was noted. The patient tolerated the procedur e well and was taken to recovery room in satisfactory condition. Sponge, instrument, and needle counts were all reported correct. Estimated blood loss for the case was minimal. There were no apparent complications of surgery. Specimen to pathology was endocervical and endometrial curettings. Gm Brush MD T: NTS JOB: [id number] 04/13/16 1838 <Electronically signed by Gm Brush MD> Date Gm Brush MD Cosigner Signature (If Indicated): Date CC: Edita Young; Gm Brush MD Date Dictated: 04/13/161030 Date Transcribed: 04/13/161030 Perioperative Assistant: Signed 13-Apr-2016 Discharge Instruction Result: Comments: See Note; NOTES: [facility] Medical Records Department [address] [place] [address] Instructions for Home/Discharge Instructions 04/13/16 1003 MR#: [id number] Acct: [id number] Name: ELIZABETH TORO Rep #: [id number] : 1950 65 From: Gm Brush MD PCP: Edita Cabral MD Status: REG [facility] Discharge Diet: No Restrictions Discharge Activity: R eturn to Normal Activity, May Shower, May Take a Tub Bath Call your doctor if you observe: Fever of 101 or Higher, Inability to urinate, Inability to have a bowel movement Allergies/Adverse Reactions : Allergies No Known Allergies Allergy (Verified 04/10/16 14:03) Medications to take at Discharge Albuterol Inhaler [Ventolin Hfa (SP)] 1 - 2 puff INHALATION Q4H PRN PRN 04/10/16 Atenolol [Ten ormin (beta Jimenez)] 25 mg PO DAILY 04/10/16 Ergocalciferol [Vitamin D] 50,000 unit PO Q7D 04/10/16 Fluoxetine [Prozac] 80 mg PO DAILY 04/10/16 Levothyroxine [Synthroid] 75 mcg PO DAILY 04/10/16 Li raglutide [Victoza 2-Rambo] 12 mg SQ DAILY 04/10/16 Lorazepam [Ativan] 1 mg PO DAILY PRN PRN 04/10/16 Meloxicam [Mobic] 7.5 mg PO DAILY 04/10/16 Olanzapine [Zyprexa] 10 mg PO DAILY 04/10/16 Oxybutynin Chloride [Ditropan Xl] 15 mg PO DAILY 04/10/16 Topiramate [Topamax] 100 mg PO DAILY 04/10/16 Hydrocodone Bitart/Apap 5-325 [Murdock 5MG-325MG] 1 tablet PO Q4H PRN PRN #10 tablet 04/13/16 The followi ng prescriptions were given: Hydrocodone Bitart/Apap 5-325 [Murdock 5MG-325MG] 1 tablet PO Q4H PRN PRN #10 tablet PRN Reason: Mod-Severe Pain () Please Follow Up With: Gm Brush When: 2-3 jason bowers 04/13/16 1004 <Electronically signed by Gm Brush MD> Date Gm Brush MD CC: Edita Cabral MD 22-Mar-2016 Emergency Department Summary Result: Comments: See Note; NOTES: [facility] Medical Records Department [address] [place] [address] Emergency Department Summary MR#: [id number] Acct: [id number] Name: ELIZABETH TORO Rep #: [id number] : 1950 65 From: Nando Fuller MD PCP: Edita Cabral MD Status: DEP ER DATE OF SERVICE: 03/20/2016 METHOD OF ARRIVAL: Private car. CHIEF COMPLAINT: Va ginal bleeding. PRIMARY CARE: Edita Cabral MD OB: ____ ROONEY HISTORY: This is a 65-year-old female with a history of depression, Meniere disease. She comes in with vaginal bleeding. She states it started today. It has been relatively continuous, similar to her menstrual cycle. She denies any pelvic pain with this. She did complain of some urinary frequency. She is a . REVIEW OF SYSTE MS: She denies any fever, dizziness, chest pain, shortness of breath, nausea, vomiting, diarrhea or other complaints. She states her last menstrual cycle was about 25 years ago. She has not had inte rcourse in years due to her 's . She states she has never had any prior problems with vaginal bleeding. PHYSICAL EXAMINATION: VITAL SIGNS: Stable. Afebrile. HEENT: Unremarkable. She d oes not appear pale. NECK: Supple. HEART: Regular. LUNGS: Clear. ABDOMEN: Soft, nontender. GENITOURINARY: I do not appreciate any discharge. She has an appearance of a normal cervix. She has some mild bleeding and thought there may be an abrasion on the right side of the vaginal wall, but when I wiped it with a cotton swab, it did not re-bleed. There are no lacerations evident. There is no tis aggie. I do not appreciate any significant abnormal size of the uterus. She has no tenderness on exam as well. TESTS: Ultrasound was obtained due to her age and bleeding. This does show 1.6 cm fibroid and her endometrium is 8 mm, which is abnormal. CBC: Her white count is normal. Hemoglobin is stable at 13.3 and normal, 45% neutrophils, 13% monocytes. Glucose 111. Her creatinine is 1.35, which is chronic. Urine does not show any signs of infection. EMERGENCY DEPARTMENT COURSE: The patient was started on IV. I did speak with Dr. Brush for OB who is on for no doc. He will see the patient in followup. The patient is encouraged to call Wednesday for evaluation. She was counseled that she will need biopsy with her abnormal endometrium. CLINICAL IMPRESSION: 1. Irregular vaginal bleeding. 2. Chronic renal insufficiency. DISPOSITION: Home. MD Dominguez Argueta C: Edita Brush MD T: NTS JOB: [id number] 03/22/16 0247 <Electronically signed by Nando Fuller MD&a mp;#[id number]; Date Nando Fuller MD Cosigner Signature (If Indicated): Date CC: Edita Cabral MD; Otilia Brush MD Date Dictated: 03/21/1650 Date Transcribed: 03/21/1650 Perioperative Assistant: Signed 21-Mar-2016 Discharge Instruction Result: Comments: See Note; NOTES: [facility] Medical Records Department [facility] [place] [address] Discharge Instruction 03/21/16 0048 MR#: [id number] Acct: [id number] Name: ELIZABETH TORO Rep #: [id number] : 1950 65 From: Nando Fuller MD PCP: Edita Cabral MD Status: REG ER ED Disposition - Plan for ED Patient: Disposition: Home or Assisted Living Chief Complaint: Vag Bleeding Instructions: ED Dysfunctional Uterine Bleeding Referrals: Edita Cabral MD [Primary Care Provider] - Gm Brush MD [STAFF PHYSICIAN] - 2 Days Additional Instructi ons: follow up with dr brush - call office wednesday. What to do if you have Problems For any increased pain, shortness of breath, bleeding, nausea or vomiting, chest pain, or any unexpected probl ems, contact your doctor. Call [facility] ([phone]) or report to the closest Emergency Room. Call 911 if necessary. 03/21/16 0049 <Electronically signed by Nando Fuller MD&#6 2; Date Nando Fuller MD Cosigner Signature (If Indicated): Date CC: Edita Cabral MD 20-Mar-2016 Transvaginal Non- Result: Comments: See Note; NOTES: [facility] Imaging Services [address] [place] [address] Verdana 4d Transvaginal Non- MR#: [id number] Acct: [id number] Name: ELIZABETH DIAZ Rep #: [id number] : 1950 F 65 From: Jose Fu PCP: Edita Cabral MD Status: REG ER Study: Transvaginal Non- Date of Exam: 03/20/16 Exam# [id number] Ordering Dr: Oz Fuller MD STUDY: ULTRASOUND TRANSVAGINAL CLINICAL: Female, 65 years old. Bleeding TECHNIQUE: Transvaginal COMPARISON: None. FINDINGS: Normal uterine s ize measuring 5.8 cm in maximal craniocaudal dimension. There is an anterior upper uterine segment fibroid measuring 1.6 cm. Normal endometrial thickness measuring 8 mm. There are no endometrial mas ses, and there is no fluid in the endometrial cavity. Normal uterine cervix. Ovaries not visualized. No adnexal mass. There is no free fluid in the pelvis. I MPRESSION: There is a 1.6 cm fibroid. Endometrium 8 mm. Ovaries not visualized. Electronically Signed: Jose Fu DO at 0:42 EDT , Service support [phone], Fax CC: Edita Cabral MD; Nando Fuller MD Perioperative Assistant: Signed 25-Feb-2016 Esophagus Only Result: Comments: See Note; NOTES: [facility] Imaging Services [address] [place] [address] Verdana 4d Esophagus Only MR#: [id number] Acct: [id number] Name: XAVIER TORO Rep #: [id number] : 1950 F 65 From: Anibal Lan MD PCP: Edita Cabral MD Status: REG CLI Study: Esophagus Only Date of Exam: 02/25/16 Exam# [id number] Ordering Dr: Donnie Gonzales STUDY: X-RAY - ESOPHAGUS (BARIUM SWALLOW) WITH FLUOROSCOPY REASON FOR EXAM: Female, 65 years old. Dysphagia for solids. TECHNIQUE: Multiple view(s) of the esophagus were obtained following swallo wing of barium. FLUOROSCOPY TIME (if supplied): (0:40) minutes/seconds COMPARISON: None. FINDINGS: There is no demonstrated esophageal foreign body. There is no demonstrated stricture or mucosal abnormality. Normal gastroesophageal junction, without a demonstrated hiatal hernia. The patient ingested a 12 mm tablet of barium without any difficulty. Radha l visualized aortic arch and descending thoracic aorta. Normal visualized pulmonary parenchyma. Normal visualized osseous structures of the thorax. IMPRESSION: Normal plain film x-ray examination (barium swallow) of the esophagus. Electronically Signed: Anibal Lan MD at 10:35 EDT Tel [phone], Service support [phone], Fax RAD/Esophagus Only IMPRESSION: Normal plain film x-ray examination (barium swallow) of the esophagus. Electronically Signed: Anibal Lan MD at 10: 35 EDT Tel [phone], Service support [phone], CC: Edita Cabral MD; Donnie Gonzales Perioperative Assistant: Signed 25-Feb-2016 Esophagus Only Result: Comments: See Note; NOTES: [facility] Imaging Services [address] [place] [address] Verdana 4d Esophagus Only MR#: [id number] Acct: [id number] Name: XAVIER TORO Rep #: [id number] : 1950 F 65 From: Anibal Lan MD PCP: Edita Cabral MD Status: REG CLI Study: Esophagus Only Date of Exam: 02/25/16 Exam# [id number] Ordering Dr: Donnie Gonzales ADDENDUM by Anibal Lan MD on 03/31/16 at 0747 ADDENDUM This is an addendum report for PQRS purposes. 19 images were obtained. Electronically Signed: Anibal Lan MD at 7:47 EDT Tel [phone], Service support [phone], 03/31/16 0747 Date cc: Edita Cabral MD; Donnie Gonzales * Signed STUDY: X- RAY - ESOPHAGUS (BARIUM SWALLOW) WITH FLUOROSCOPY REASON FOR EXAM: Female, 65 years old. Dysphagia for solids. TECHNIQUE : Multiple view(s) of the esophagus were obtained following swallowing of barium. FLUOROSCOPY TIME (if supplied): (0:40) minutes/seconds COMPARISON: None. FIN DINGS: There is no demonstrated esophageal foreign body. There is no demonstrated stricture or mucosal abnormality. Normal gastroesophageal junction, without a demonstrated hiatal hernia. The patient ingested a 12 mm tablet of barium without any difficulty. Normal visualized aortic arch and descending thoracic aorta. Normal visualized pulmonary parenchyma. Normal visualized osseous structures of the thorax. IMPRESSION: Normal plain film x-ray examination (barium swallow) of the esophagus. Electronically Signed: Anibal Lan MD at 10:35 EDT Tel [phone], Service support [phone], RAD/Esophagus Only IMPRESSION: Normal plain film x-ray examination (barium swallow) of the esophagus. Electronically Signed: Anibal Lan MD at 10:35 EDT Tel [phone], Service support [phone], CC: Edita Cabral MD; Donnie Gonzales Perioperative Assistant: Signed 10-Dec-2015 12 Lead Electrocardiogram Result: Comments: See Note; NOTES: [facility] Cardiovascular Services [address] [place] [address] 12 Lead EKG 12/08/15 1551 MR#: [id number] Acct: [id number] Name: ELIZABETH DASILVA Rep #: [id number] : 1950 65 From: Francisco Muller MD Attending Dr: Status: DEP ER Ordering Dr: Sisi Severino MD Date: 12/08/15 Location: ED Sex: F C Admitted: Test Reason : COU GH Blood Pressure : / mmHG Vent. Rate : 067 BPM Atrial Rate : 067 BPM P-R Int : 190 ms QRS Dur : 070 ms QT Int : 446 ms P-R-T Axes : 026 006 013 degrees QTc Int : 471 ms Normal sinus rhy thm Low voltage QRS Borderline ECG Confirmed by FRANCISCO MULLER MD ([id number]), department editor ZUNILDA KLEIN ([id number]) on 12/10/2015 9:33:10 AM Referred By: ROMEL Confirmed By:FRANCISCO MULLER MD 12/10/15 0933 Date ___ Francisco Muller MD CC: Edita Cabral MD Date Dictated: 12/08/151550 Date Transcribed: 12/08/151550 Perioperative Assistant: Signed 10-Dec-2015 Emergency Department Summary Result: Comments: See Note; NOTES: [facility] Medical Records Department [address] [place] [address] Emergency Department Summary MR#: [id number] Acct: [id number] Name: ELIZABETH TORO Rep #: [id number] : 1950 65 From: Sisi Severino MD PCP: Edita Cabral MD Status: DEP ER DATE OF SERVICE: 12/08/2015 CHIEF COMPLAINT: Short of breath. HISTORY OF PRESENT ILLNESS: The patient will be getting more short of breath a couple of days with soreness across the upper chest. She has had a cough on and off for 2 weeks. The disorders last couple of days. She sa id it hurts to take a deep breath. She has never had a PE. She has diabetes, hypertension, high cholesterol, questionable asthma, and hypothyroidism. She is on medications for the above. States she ta kes them regularly. Her cough is dry. It hurts to cough. It is the only time she has any pain, occasionally severe, right now moderate. No long sitting episodes or travel or risk factors for PE identi fied. She is not on hormone therapy. Nonsmoker. No one else sick at home. No recurrent upper respiratory infections. PHYSICAL EXAMINATION: VITAL SIGNS: Stable. Pulse oximetry 96%. No tachypnea or t achycardia. Afebrile. GENERAL: Well-developed female. HEENT: Normal. Mucous membranes are slightly dry. NECK: Supple. No adenopathy or JVD. HEART: Regular. No S1 and S2. No murmurs or gallops. LUNG S: Clear. She does have reproducible moderate chest wall pain in upper bilateral chest, but mostly with deep breaths. ABDOMEN: Soft. No pain on palpation. Good bowel sounds. No flank or extremity pain . No calf pain or cords. Good color. NEUROLOGIC: Alert and oriented x3. Cranial nerves II-XII intact. Normal strength, sensation, cerebellar function and good affect. TREATMENT: The patient's 2-vi ew chest x-ray shows no acute process per radiologist and my review. EKG was sinus in the 60s, similar to EKG of September of 2009. CBC and chemistries are normal other than her creatinine up a little bit at 1.48. TSH and cardiac enzymes are normal. At this point, the patient is stable. She was advised that we will treat the symptoms. I do not believe she needs antibiotic and I explained why. Lodin e 300 mg x30 and Tessalon Perles for cough. Follow up in 3-[address] Cabral, sooner as needed for worse or persistent chest pain, trouble breathing, fever, chills, nausea, vomiting, blood in s putum, or worse chest discomfort. DIAGNOSIS: Acute viral upper respiratory infection. MD Dominguez Galeano C: Edita Cabral MD T: NTS JOB: [id number] 12/10/15 0232 <Electronically deepti d by Sisi Severino MD> Date Sisi Severino MD Cosigner Signature (If Indicated): Date Dominguez C: Edita Cabral MD Date Dictated: 12/08/151705 Date Transcribed: 12/08/151705 Perioperative Assistant: Signed 08-Dec-2015 Discharge Instruction Result: Comments: See Note; NOTES: [facility] Medical Records Department [address] [place] [address] Discharge Instruction 12/08/15 1659 MR#: [id number] Acct: [id number] Name: ELIZABETH TORO Rep #: [id number] : 1950 65 From: Sisi Severino MD PCP: Edita Cabral MD Status: REG ER ED Disposition - Plan for ED Patient: Chief Complaint: Cough Instructions : ED Uri, Viral, No Abx (Adult) Prescriptions: Benzonatate [Tessalon Perle] 100 - 200 mg PO TID PRN PRN #20 capsule PRN Reason: Cough Etodolac [Lodine] 300 mg PO TIDCM #30 capsule Referrals: Edita Espino MD [Primary Care Provider] - 3-5 Days if not improving What to do if you have Problems For any increased pain, shortness of breath, bleeding, nausea or vomiting, chest pain, or any unexp ected problems, contact your doctor. Call [facility] ([phone]) or report to the closest Emergency Room. Call 911 if necessary. 12/08/15 1701 <Electronically signed by Sisi young MD> Date Sisi Severino MD Cosigner Signature (If Indicated): Date CC: Edita Cabral MD 08-Dec-2015 Chest PA and Lateral Result: Comments: See Note; NOTES: [facility] Imaging Services [address] [place] [address] Verdana 4d Chest PA and Lateral MR#: [id number] Acct: [id number] Name: ELIZABETH TORO Rep #: [id number] : 1950 F 65 From: Malaika Diana MD PCP: Edita Cabral MD Status: REG ER Study: Chest PA and Lateral Date of Exam: 12/08/15 Exam# [id number] Ordering Dr: Sisi Severino MD STUDY: X-RAY CHEST REASON FOR EXAM: Female, 65 years old. cough x 1 week, chest pain TECHNIQUE: PA and lateral views of the chest. COMPARISON: November 21, 2012 FINDINGS: The lungs are clear and expanded. There is no demonstrated pleural abnormality. Normal size heart. Normal mediastinum and tabby. Normal visualized pulmonary arteries. Normal vis ualized aortic arch and descending thoracic aorta. There are diffuse degenerative changes of the visualized thoracic spine. Normal visualized ribs, clavicles, and shoulders. There is no demonstrat ed abnormality of the visualized soft tissue structures of the upper abdomen. IMPRESSION: No acute disease is demonstrated. Electronically Signed: Malaika Diana MD at 16:41 EST , Service support [phone], RAD/Chest PA and Lateral IMPRESSION: No acute disease is demonstrated. Electronic ally Signed: Malaika Diana MD at 16:41 EST , Service support [phone], CC: Edita Cabral MD; Sisi Severino MD Perioperative Assistant: Signed 16-Sep-2015 EKG (03314) Result: [MEASUREMENTS ANALYSIS] Date of Test: 09/16/2015 09:46:37; Heart Rate: 74; MI Interval: 192; QRS: 88; QT Interval: 406; Corrected QT Interval (QTc): 430; P Wave Clifton: 28; QRS Wave Clifton: -3; T Wave Clifton: -1; Blood Pressure: 104/60 [ECG DIAGNOSTIC STATEMENTS] Date of Test: 09/16/2015 09:46:37; Summary: Sinus Rhythm Low voltage in precordial leads. - Nonspecific T-abnormality. ABNORMAL 11-Feb-2015 Kidney and Bladder Result: Comments: See Note; NOTES: [facility] Imaging Services [address] [place] [address] Ultrasound Report MR#: [id number] Acct: [id number] Name: ELIZABETH TORO Rep #: [id number] : 1950 F 64 From: Mina Cade MD PCP: Edita Cabral MD Status: REG CLI Study: Kidney and Bladder Date of Exam: 02/11/15 Exam# [id number] Ordering Dr: Edita Cabral MD STUDY: RE NAL ULTRASOUND - COMPLETE REASON FOR EXAM: Female, 64 years old. Renal failure TECHNIQUE: Ultrasound evaluation of the kidneys was performed with real-time and static oakley-scale imaging. COMPARIS ON: None. FINDINGS: RIGHT KIDNEY: Normal location of the right kidney, which is normal in size. The right kidney measures 9.7 x 3.6 x 4.1 cm. There is a normal cortex of the right kidney. The renal cortex measures 1.5 cm. There is no right renal mass or cyst. There are 2 nonobstructing calculi measuring 9 mm and 11 mm There is no right hydronephrosis. DIS CHAMP RIGHT URETER: There is non-visualization of the distal right ureter. There is no demonstrated right ureterovesical junction calculus. There is a visualized right ureteral jet. LEFT KIDNEY: Radha l location of the left kidney, which is normal in size. The left kidney measures 9.1 x 3.5 x 4.5 cm. There is a normal cortex of the left kidney. The renal cortex measures 1.4 cm. There is no left margot al mass or cyst. . There is a nonobstructing 6 mm calculus. There is no left hydronephrosis. DISTAL LEFT URETER: There is non-visualization of the distal left ureter. There is no demonstrated left ureterovesical junction calculus. There is a visualized left ureteral jet. Mildly increased cortical echoes and renal pyramids consistent with nonspecific renal parenchymal disease IMPRESSION: Nonspecific renal parenchymal disease and nonobstructing bilateral renal calculi. No evidence for hydronephrosis Electronically Signed: Mina Cade MD at 23:11 EDT , Service support [phone], CC: Edita Cabral MD Perioperative Assistant: Signed 24-Jul-2014 PT Discharge Summary Result: Comments: See Note; NOTES: [facility] [address] [place] [address]. [address] [place], [place] [id number] Fax REHABILITATION SERVICES DISCHARGE SUMMARY MR#: [id number] Acct: [id number] Name: ELIZABETH TORO Rep #: [id number] : 1950 63 From: Naomi Osorio Referring Dr.: Edita Cabral MD Status: DIS RCR Eval Date: Disch arge Date: 06/13/14 DATE OF SERVICE: REFERRING PHYSICIAN: Edita Cabral M.D. REFERRING DIAGNOSIS: Left shoulder pain. Elizabeth has been seen in our clinic for a total of 10 visits. She repor ts her left shoulder pain is 1/10. She reports 98% improvement. She is independent with her home exercises and will continue to do those at home. Her DASH score is 35. Her G8981 is CK. Her G8982 i s CJ. Her pain goal has been met. Her active range of motion is 126 degrees flexion, 124 degrees abduction at T12 with internal rotation and 35 degrees of external rotation. The patient's shoulder m anual muscle testing, shoulder flexion 4-/5; abduction 4-/5; external rotation 4-/5; internal rotation 4/5. I told the patient to call ____ 2 weeks if she had any problems. She has not done so; there fore, I will be discharging her from our care. Thank you once again for the referral of Elizabeth to our clinic. Naomi Osorio, PT T: NTS JOB: [id number] <Electronically signed by Faraz Osorio > 07/24/14 1350 CC: Signed 15-Jun-2014 PT Discharge Summary Result: Comments: See Note; NOTES: [facility] [address] [place] [address]. [address] [place] [address] Fax REHABILITATION SERVICES DISCHARGE SUMMARY MR#: [id number] Acct: [id number] Name: ELIZABETH TORO Rep #: [id number] : 1950 63 From: Naomi Osorio Referring : Edita Cabral MD Status: REG RCR Eval Date: Disch arge Date: DATE OF SERVICE: REFERRING PHYSICIAN: Dr. Cabral. REFERRING DIAGNOSIS: Left shoulder pain. The patient has been seen in our clinic for a total of 10 visits. Her DASH score is 3 5, her G8981 is a CK, her G8982 is a CJ. She reports 98% improvement. She states her left shoulder pain is 1/10 today. The patient was given a home exercise program consisting of mid rows using a gr een Theraband, internal and external rotation, extension and abduction using an orange band. Her pain goal has been met. Her active range of motion is 126 degrees, flexion 124 degrees, abduction, int ernal rotation to T12, external rotation is 35 degrees. The patient's shoulder manual muscle testing, shoulder flexion 4-/5, abduction 4-/5, external rotation 4-/5, internal rotation 4/5. The patien keith wanted to continue with a home exercise program and she will call within 2 weeks if she has any problems. I will be discharging Elizabeth from our care in 2 weeks if she does not return or feels she needs physical therapy. Thank you once again for the referral of Elizabeth to our clinic. Sincerely, Naomi Osorio, PT T: [facility] JOB: [id number] <Electronically signed by Naomi Osorio & amp;#62; 06/15/14 1410 CC: Signed 25-May-2014 Inital Evaluation - PT Result: Comments: See Note; NOTES: [facility] [address] [place] [address]. [address] [place] [address] Fax REHABILITATION SERVICES INITIAL EVALUATION MR#: [id number] Acct: [id number] Name: ELIZABETH TORO Rep #: [id number] : 1950 63 From: Naomi Osorio Referring Dr.: Edita Cabral MD Status: REG RCR Insurance: [facility] Eval Date: PHYSICIAN [employer] DATE OF SERVICE: REFERRING DIAGNOSIS: Left shoulder pain. REFERRING PHYSICIAN: Edita Cabral M.D. SUBJECTIVE: The patient is a 63-year-old female who reports to the clinic today with a diagnosis of left shoulder pain. The patient reports that 3 weeks now she has been having left shoulder pain. She got a prescription for anti-inflammato julio c, but she has not seen a difference. It got really tight one day and her pain just started to come on. She reports that she has some weakness and has to use her other arm to raise it at times. She cannot sleep on her left shoulder. She cannot hook her bra or reach into her back pocket. She denies any shortness of breath. She does have asthma. She has had diabetes for years now, hypertens ion. She has a routine nuclear stress test tomorrow. She did receive a CAT scan and x-ray. She denies any shoulder blade pain. She denies any numbness and tingling. She states that she has achiness on the anterolateral aspect of her shoulder. The patient reports her left shoulder pain is ____ 10. Her DASH score is 62 and G8981 CL and G8982 CK OBJECTIVE: Upon palpation, the patient was tender over the left anterolateral shoulder. She is right-handed. 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 The patient's active range of motion, shoulder flexion left 34 degrees, right 138 degrees; external rotation left 10 degrees, right 39 degrees; internal rotation, she cannot even get to her greater trochanter on the left, right 1; abduction left 24 degrees, right 152 degrees. The patient's manual muscle testing is as follows: Shoulder flexion left 3-/5, right 4/5; external rotation left 3-/5, right 4/5; internal rotation left 3- /5, right 4/5; abduction left 3-/5, right 4 /5. I am unable to do special tests at this time due to the patient's decreased range of motion and increased pain. ASSESSMENT: The patient presents with a diagnosis of left shoulder pain. PROBLE MS: 1. Decreased left shoulder range of motion. 2. Increased shoulder pain. 3. Decreased shoulder strength. GOALS: 1. Independent with home exercise program. 2. Increase left shoulder active rang e of motion 0-120 degrees elevation. 3. Decrease pain to 1/10 with ADLs. 4. Increase left shoulder strength by one-half muscle grade. PLAN: Plan of care is reviewed by the patient. Received the pat ient's consent to treat. I plan on seeing the patient 2-3 times per week for 4-6 weeks for left shoulder passive range of motion, active assistive range of motion, active range of motion, left should er strength, postural exercises with a home exercise program and modalities as needed. Naomi Osorio, PT T: [facility] JOB: [id number] <Electronically signed by Naomi Osorio > 4 1241 CC: Signed For Medicare only, by signing this I certify the plan of care. Physicians Signature Date 23-May-2014 Nuclear Stress Test - Chemical Result: Comments: See Note; NOTES: [facility] Imaging Services [address] [place] [address] Nuclear Medicine Report MR#: [id number] Acct: [id number] Name: ELIZABETH TORO Rep #: [id number] : 1950 F 63 From: Tano Nielsen MD PCP: Edita Cabral MD Status: REG CLI Study: Nuclear Stress Test - Chemical Date of Exam: 05/23/14 Exam# [id number] Ordering Dr: Álvaro Cabral MD EXERCISE TOLERANCE TEST: The patient underwent pharmacologic (regadenoson) evaluation with a peak heart rate of 75 beats per minute (48% predicted maximum heart rate) with a peak blood press ure of 132/76 mmHg. The baseline ECG demonstrated sinus bradycardia. The peak pharmacologic ECG demonstrated no obvious ECG changes. There were no obvious cardiac dysrhythmias pretest, during pharm acologic infusion, or recovery. There was no report of chest discomfort during pharmacologic infusion or recovery. The examination was discontinued secondary to completion of protocol. IMPRESSIO N: 1. Pharmacologic (regadenoson) evaluation. 2. Peak pharmacologic ECG with no obvious ECG changes. 3. Nuclear images pending. MYOCARDIAL PERFUSION IMAGING STUDY: TECHNIQUE: The patient was inj ected with 13.7 mCi of Tc99m Cardiolite and subsequently rest SPECT Cardiolite nuclear imaging was obtained in the horizontal long, vertical long, and short axes views. The patient underwent pharmacolo gic (regadenoson) evaluation with a peak heart rate of 75 beats per minute (48% predicted maximum heart rate) and a peak blood pressure of 132/76 mmHg. The patient was injected with 40.4 mCi of Tc99m Cardiolite and subsequently stress SPECT Cardiolite nuclear imaging was obtained in the horizontal long, vertical long, and short axes views. A gated Cardiolite study at peak stress was obtained. I NTERPRETATION: Rest and stress SPECT Cardiolite nuclear imaging both demonstrate areas of extracardiac/hepatic and gastrointestinal tracer uptake near the inferior segments.. This appears to be somew hat more prominent on some of the resting views as opposed to the post stress views. There was also notation of a small area of diminished tracer uptake near the lateral apical segments without signi ficant change. There were similar type findings on the resting and stress polar map images. There is end systolic thickening and brightening. The gated Cardiolite study demonstrates myocardial thicken ing and inward wall motion. The reported LVEF is 61%. The aforementioned changes appear compatible with the effects of soft tissue attenuation/artifact and physiologic apical thinning with no myocardia l perfusion changes considered diagnostic for stress induced myocardial ischemia or previous myocardial injury/infarction. IMPRESSION: 1. Rest and stress SPECT Cardiolite nuclear imaging demonstrate myocardial perfusion changes appearing compatible with the effects of soft tissue attenuation/artifact and physiologic apical thinning with no myocardial perfusion changes considered diagnostic for stress induced myocardial ischemia or previous myocardial injury/infarction. 2. The gated Cardiolite study reports an LVEF of 61%. CC: Edita Cabral MD Perioperative Assistant: SHEKHAR Signed 14-May-2014 Shoulder min 2 Views Result: Comments: See Note; NOTES: [facility] Imaging Services [address] [place] [address] Radiology Report MR#: [id number] Acct: [id number] Name: ELIZABETH TORO Rep #: [id number] : 1950 F 63 From: Hardeep Dumont MD PCP: Erna Kingston DO Status: REG CLI Study: Shoulder min 2 Views Date of Exam: 05/14/14 Exam# [id number] Ordering Dr: Edita Cabral MD STUDY: X-RAY - LEFT SHOULDER REASON FOR EXAM: Female, 63 years old. Left shoulder pain x3 weeks TECHNIQUE: 4 view(s) of the shoulder. COMPARISON: None. FINDINGS: Normal glenohumeral articulation. Normal acromioclavicular joint. Normal acromion. Normal humeral head and visualized proximal humerus. The soft tissue structures are unremarkable. Normal visualized pul monary apex. IMPRESSION: Normal x-ray examination of the shoulder. Electronically Signed: Silvio Dumont MD at 12:18 EDT , [employer] support [phone], CC: Edita Cabral MD; Erna Kingston DO Perioperative Assistant: Signed 30-Apr-2014 CTA Chest W/WO Contrast Result: Comments: See Note; NOTES: [facility] Imaging Services [address] [place] [address] CAT Scan Report MR#: [id number] Acct: [id number] Name: ELIZABETH TORO Rep #: [id number] : [id number] F 63 From: Hardeep Calix MD PCP: Erna Kingston DO Status: REG CLI Study: CTA Chest W/WO Contrast Date of Exam: 04/30/14 Exam# [id number] Ordering Dr: Erna Kingston DO STUDY: CTA CHEST REASON FOR EXAM: Female, 63 years old. Chest pain for 3 weeks. 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 RADIATION DOSAGE (If Supplied By Facility): CTDIvol = ( 16.24 ) mGy, DLP = ( 627.32 ) mGycm MARJORIE HNIQUE: The examination was performed with the intravenous administration of 100mL ml of Isovue 370 contrast material. Post-processing of the angiographic images was performed, with multiplanar refor mation and 3D reconstruction. COMPARISON: PA and lateral views of the chest November 21, 2012 FINDINGS: Normal enhancement of the main pulmonary artery and righ t and left pulmonary arteries. Normal enhancement of the bilateral peripheral pulmonary arteries. There is no demonstrated pulmonary embolism. Normal thoracic aorta and visualized great vessels. T here is no demonstrated aortic dissection. Normal heart and pericardium. There are mild calcifications of the coronary arteries. There is a calcified precarinal lymph node. Normal hilar regions. There is bronchial ectasia in the posterior lower lobes. The lungs are well expanded. Minor density in the posterior periphery of the right lower lobe consistent with subsegmental atelectasis or pne umonitis. There is calcified granuloma in the anterior right upper lobe. Normal pleura. Normal chest wall structures. There are degenerative changes of thoracic spine. Normal visualized upper a bdomen. IMPRESSION: 1. No demonstrated pulmonary embolism or arterial dissection. 2. Bronchiectasia in the posterior lower lobes. There is minor subsegmental at electasis or pneumonitis in the posterior right lower lobe. 3. 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 4. Mild coronary artery calcification. Electronically Signed: Silvio Calix MD at 19 :01 EDT , Service support [phone], CC: Erna Kingston DO Perioperative Assistant: Signed Family History Unknown Family Member Name Dates Details Daughter 1 Comments: Lupus Status: Active Mother Comments: Depression Status: Active Sister 1 Comments: depression Status: Active Sister 2 Comments: depression Status: Active Social History Name Dates Details Caffeine Use Comments: 4-5 cans diet coke qd Status: Active Current Work/Study Status Comments: Unemployed not looking for work Status: Active Exercise History Comments: Inactive Status: Active Living Situation Comments: as of 15 ( of heart failure waiting for transplant) Status: Active No Drug Use Status: Active Non Drinker/No Alcohol Use Status: Active Non Smoker/No Tobacco Use Status: Active Tobacco use: Never smoker. Status: Active Smoking Status Name Dates Details Never smoker Vital Signs Date Test Result Details :28 Temperature 98.8 f Comments: Method: Temporal Pulse 66 /min Comments: Pattern: Regular Respiration Rate 18 /min Comments: Pattern: Unlabored O2 SAT 98 % Comments: Room air BP Systolic 98 mm[Hg] Comments: Patient Position: Sitting; Cuff Location: Left Arm; Cuff Size: Standard BP Diastolic 58 mm[Hg] Comments: Patient Position: Sitting; Cuff Location: Left Arm; Cuff Size: Standard Weight 200.375 lb Height 64 in Body Mass Index Calculated 34.39 kg/m2 Body Surface Area Calculated 1.96 m2 :14 Temperature 98.2 f Comments: Method: Temporal Pulse 85 /min Comments: Pattern: Regular Respiration Rate 18 /min Comments: Pattern: Unlabored O2 SAT 93 % Comments: Room air BP Systolic 118 mm[Hg] Comments: Patient Position: Sitting; Cuff Location: Left Arm; Cuff Size: Standard BP Diastolic 78 mm[Hg] Comments: Patient Position: Sitting; Cuff Location: Left Arm; Cuff Size: Standard Weight 188.375 lb Height 64 in Body Mass Index Calculated 32.33 kg/m2 Body Surface Area Calculated 1.91 m2 :40 Temperature 97.6 f Comments: Method: Temporal Pulse 72 /min Comments: Pattern: Regular Respiration Rate 16 /min Comments: Pattern: Unlabored O2 SAT 98 % Comments: Room air BP Systolic 134 mm[Hg] Comments: Patient Position: Sitting; Cuff Location: Left Arm; Cuff Size: Standard BP Diastolic 78 mm[Hg] Comments: Patient Position: Sitting; Cuff Location: Left Arm; Cuff Size: Standard Weight 188.375 lb Height 64 in Body Mass Index Calculated 32.33 kg/m2 Body Surface Area Calculated 1.91 m2 :04 Pulse 63 /min Comments: Pattern: Regular Respiration Rate 18 /min Comments: Pattern: Unlabored O2 SAT 96 % Comments: Room air BP Systolic 138 mm[Hg] Comments: Patient Position: Sitting; Cuff Location: Left Arm; Cuff Size: Standard BP Diastolic 78 mm[Hg] Comments: Patient Position: Sitting; Cuff Location: Left Arm; Cuff Size: Standard Weight 188.375 lb Height 64 in Body Mass Index Calculated 32.33 kg/m2 Body Surface Area Calculated 1.91 m2 :07 Pulse 73 /min Comments: Pattern: Regular Respiration Rate 18 /min Comments: Pattern: Unlabored O2 SAT 95 % Comments: Room air BP Systolic 118 mm[Hg] Comments: Patient Position: Sitting; Cuff Location: Left Arm; Cuff Size: Standard BP Diastolic 66 mm[Hg] Comments: Patient Position: Sitting; Cuff Location: Left Arm; Cuff Size: Standard Weight 202.125 lb Height 64 in Body Mass Index Calculated 34.69 kg/m2 Body Surface Area Calculated 1.96 m2 :28 Temperature 98.1 f Comments: Method: Temporal Pulse 78 /min Comments: Pattern: Regular Respiration Rate 16 /min Comments: Pattern: Unlabored BP Systolic 121 mm[Hg] Comments: Patient Position: Sitting; Cuff Location: Left Arm; Cuff Size: Standard BP Diastolic 74 mm[Hg] Comments: Patient Position: Sitting; Cuff Location: Left Arm; Cuff Size: Standard Weight 202.125 lb Height 64 in Body Mass Index Calculated 34.69 kg/m2 Body Surface Area Calculated 1.96 m2 :45 Pulse 80 /min Comments: Pattern: Regular Respiration Rate 17 /min Comments: Pattern: Unlabored O2 SAT 98 % Comments: Room air BP Systolic 140 mm[Hg] Comments: Patient Position: Sitting; Cuff Location: Left Arm; Cuff Size: Standard BP Diastolic 78 mm[Hg] Comments: Patient Position: Sitting; Cuff Location: Left Arm; Cuff Size: Standard Weight 202.125 lb Height 64 in Body Mass Index Calculated 34.69 kg/m2 Body Surface Area Calculated 1.96 m2 :11 Temperature 97.3 f Pulse 85 /min Comments: Pattern: Regular Respiration Rate 16 /min Comments: Pattern: Unlabored O2 SAT 96 % Comments: Room air BP Systolic 116 mm[Hg] Comments: Patient Position: Sitting; Cuff Location: Left Arm; Cuff Size: Standard BP Diastolic 68 mm[Hg] Comments: Patient Position: Sitting; Cuff Location: Left Arm; Cuff Size: Standard Weight 209.375 lb Height 64 in Body Mass Index Calculated 35.94 kg/m2 Body Surface Area Calculated 1.99 m2 :03 Pulse 70 /min Comments: Pattern: Regular Respiration Rate 18 /min Comments: Pattern: Unlabored O2 SAT 94 % Comments: Room air BP Systolic 142 mm[Hg] Comments: Patient Position: Sitting; Cuff Location: Left Arm; Cuff Size: Large BP Diastolic 80 mm[Hg] Comments: Patient Position: Sitting; Cuff Location: Left Arm; Cuff Size: Large Weight 213 lb Height 64 in Body Mass Index Calculated 36.56 kg/m2 Body Surface Area Calculated 2.01 m2 :33 Temperature 97.6 f Pulse 77 /min Comments: Pattern: Regular Respiration Rate 20 /min Comments: Pattern: Unlabored O2 SAT 95 % Comments: Room air BP Systolic 144 mm[Hg] Comments: Patient Position: Sitting; Cuff Location: Left Arm; Cuff Size: Standard BP Diastolic 82 mm[Hg] Comments: Patient Position: Sitting; Cuff Location: Left Arm; Cuff Size: Standard Weight 213 lb Height 64 in Body Mass Index Calculated 36.56 kg/m2 Body Surface Area Calculated 2.01 m2 :54 Temperature 98.2 f Comments: Method: Temporal Pulse 76 /min Comments: Pattern: Regular Respiration Rate 16 /min Comments: Pattern: Unlabored O2 SAT 97 % Comments: Room air BP Systolic 112 mm[Hg] Comments: Patient Position: Sitting; Cuff Location: Left Arm; Cuff Size: Standard BP Diastolic 76 mm[Hg] Comments: Patient Position: Sitting; Cuff Location: Left Arm; Cuff Size: Standard Weight 213 lb Height 64 in Body Mass Index Calculated 36.56 kg/m2 Body Surface Area Calculated 2.01 m2 :50 Temperature 97.8 f Pulse 61 /min Comments: Pattern: Regular Respiration Rate 16 /min Comments: Pattern: Unlabored O2 SAT 97 % Comments: Room air BP Systolic 118 mm[Hg] Comments: Patient Position: Sitting; Cuff Location: Left Arm; Cuff Size: Standard BP Diastolic 62 mm[Hg] Comments: Patient Position: Sitting; Cuff Location: Left Arm; Cuff Size: Standard Weight 212 lb Height 64 in Body Mass Index Calculated 36.39 kg/m2 Body Surface Area Calculated 2.01 m2 :38 Pulse 71 /min Comments: Pattern: Regular Respiration Rate 18 /min Comments: Pattern: Unlabored O2 SAT 95 % Comments: Room air BP Systolic 110 mm[Hg] Comments: Patient Position: Sitting; Cuff Location: Left Arm; Cuff Size: Large BP Diastolic 40 mm[Hg] Comments: Patient Position: Sitting; Cuff Location: Left Arm; Cuff Size: Large Weight 210 lb Height 64 in Body Mass Index Calculated 36.05 kg/m2 Body Surface Area Calculated 2 m2 :45 Temperature 97 f Comments: Method: Temporal Pulse 72 /min Comments: Pattern: Regular Respiration Rate 18 /min Comments: Pattern: Unlabored O2 SAT 95 % Comments: Room air BP Systolic 128 mm[Hg] Comments: Patient Position: Sitting; Cuff Location: Left Arm; Cuff Size: Large BP Diastolic 64 mm[Hg] Comments: Patient Position: Sitting; Cuff Location: Left Arm; Cuff Size: Large Weight 208.125 lb Height 64 in Body Mass Index Calculated 35.72 kg/m2 Body Surface Area Calculated 1.99 m2 :35 Pulse 66 /min Comments: Pattern: Regular Respiration Rate 18 /min Comments: Pattern: Unlabored O2 SAT 97 % Comments: Room air BP Systolic 134 mm[Hg] Comments: Patient Position: Sitting; Cuff Location: Left Arm; Cuff Size: Large BP Diastolic 72 mm[Hg] Comments: Patient Position: Sitting; Cuff Location: Left Arm; Cuff Size: Large Weight 202.375 lb Height 64 in Body Mass Index Calculated 34.74 kg/m2 Body Surface Area Calculated 1.97 m2 :10 Temperature 96.9 f Pulse 70 /min Comments: Pattern: Regular Respiration Rate 18 /min Comments: Pattern: Unlabored O2 SAT 97 % Comments: Room air BP Systolic 126 mm[Hg] Comments: Patient Position: Sitting; Cuff Location: Left Arm; Cuff Size: Standard BP Diastolic 74 mm[Hg] Comments: Patient Position: Sitting; Cuff Location: Left Arm; Cuff Size: Standard Weight 202.375 lb Height 64 in Body Mass Index Calculated 34.74 kg/m2 Body Surface Area Calculated 1.97 m2 :14 Pulse 76 /min Comments: Pattern: Regular Respiration Rate 18 /min Comments: Pattern: Unlabored O2 SAT 98 % Comments: Room air BP Systolic 120 mm[Hg] Comments: Patient Position: Sitting; Cuff Location: Left Arm; Cuff Size: Large BP Diastolic 78 mm[Hg] Comments: Patient Position: Sitting; Cuff Location: Left Arm; Cuff Size: Large Weight 201.375 lb Height 64 in Body Mass Index Calculated 34.57 kg/m2 Body Surface Area Calculated 1.96 m2 :58 Temperature 97.9 f Pulse 55 /min Comments: Pattern: Regular Respiration Rate 16 /min Comments: Pattern: Unlabored O2 SAT 97 % Comments: Room air BP Systolic 124 mm[Hg] Comments: Patient Position: Sitting; Cuff Location: Left Arm; Cuff Size: Standard BP Diastolic 78 mm[Hg] Comments: Patient Position: Sitting; Cuff Location: Left Arm; Cuff Size: Standard Weight 197 lb Height 64 in Body Mass Index Calculated 33.81 kg/m2 Body Surface Area Calculated 1.94 m2 :06 Temperature 97.9 f Comments: Method: Temporal Pulse 69 /min Comments: Pattern: Regular Respiration Rate 16 /min Comments: Pattern: Unlabored O2 SAT 98 % Comments: Room air BP Systolic 120 mm[Hg] Comments: Patient Position: Sitting; Cuff Location: Left Arm; Cuff Size: Standard BP Diastolic 68 mm[Hg] Comments: Patient Position: Sitting; Cuff Location: Left Arm; Cuff Size: Standard Weight 180.5 lb Height 64 in Body Mass Index Calculated 30.98 kg/m2 Body Surface Area Calculated 1.87 m2 :11 Temperature 98.1 f Comments: Method: Temporal Pulse 64 /min Comments: Pattern: Regular Respiration Rate 16 /min Comments: Pattern: Unlabored O2 SAT 98 % Comments: Room air BP Systolic 102 mm[Hg] Comments: Patient Position: Sitting; Cuff Location: Left Arm; Cuff Size: Standard BP Diastolic 60 mm[Hg] Comments: Patient Position: Sitting; Cuff Location: Left Arm; Cuff Size: Standard Weight 180.5 lb Height 64 in Body Mass Index Calculated 30.98 kg/m2 Body Surface Area Calculated 1.87 m2 :52 Temperature 97.6 f Comments: Method: Tympanic Pulse 57 /min Comments: Pattern: Regular Respiration Rate 18 /min Comments: Pattern: Unlabored O2 SAT 97 % Comments: Room air BP Systolic 116 mm[Hg] Comments: Patient Position: Sitting; Cuff Location: Left Arm; Cuff Size: Standard BP Diastolic 62 mm[Hg] Comments: Patient Position: Sitting; Cuff Location: Left Arm; Cuff Size: Standard Weight 180.5 lb Height 64 in Body Mass Index Calculated 30.98 kg/m2 Body Surface Area Calculated 1.87 m2 :11 Temperature 97.8 f Pulse 75 /min Comments: Pattern: Regular Respiration Rate 17 /min Comments: Pattern: Unlabored O2 SAT 96 % Comments: Room air BP Systolic 118 mm[Hg] Comments: Patient Position: Sitting; Cuff Location: Left Arm; Cuff Size: Standard BP Diastolic 76 mm[Hg] Comments: Patient Position: Sitting; Cuff Location: Left Arm; Cuff Size: Standard Weight 188 lb Height 64 in Body Mass Index Calculated 32.27 kg/m2 Body Surface Area Calculated 1.91 m2 :53 Pulse 79 /min Comments: Pattern: Regular Respiration Rate 18 /min Comments: Pattern: Unlabored O2 SAT 95 % Comments: Room air BP Systolic 118 mm[Hg] Comments: Patient Position: Sitting; Cuff Location: Left Arm; Cuff Size: Standard BP Diastolic 78 mm[Hg] Comments: Patient Position: Sitting; Cuff Location: Left Arm; Cuff Size: Standard Weight 179 lb Height 64 in Body Mass Index Calculated 30.72 kg/m2 Body Surface Area Calculated 1.87 m2 :48 Weight 179 lb Height 64 in Body Mass Index Calculated 30.72 kg/m2 Body Surface Area Calculated 1.87 m2 :38 Temperature 99.4 f Pulse 64 /min Comments: Pattern: Regular Respiration Rate 18 /min Comments: Pattern: Unlabored O2 SAT 97 % Comments: Room air BP Systolic 140 mm[Hg] Comments: Patient Position: Sitting; Cuff Location: Left Arm; Cuff Size: Standard BP Diastolic 82 mm[Hg] Comments: Patient Position: Sitting; Cuff Location: Left Arm; Cuff Size: Standard Weight 179 lb Height 64 in Body Mass Index Calculated 30.72 kg/m2 Body Surface Area Calculated 1.87 m2 :36 Temperature 98.2 f Pulse 63 /min Comments: Pattern: Regular Respiration Rate 16 /min Comments: Pattern: Unlabored O2 SAT 97 % Comments: Room air BP Systolic 124 mm[Hg] Comments: Patient Position: Sitting; Cuff Location: Left Arm; Cuff Size: Standard BP Diastolic 82 mm[Hg] Comments: Patient Position: Sitting; Cuff Location: Left Arm; Cuff Size: Standard Weight 182 lb Height 64 in Body Mass Index Calculated 31.24 kg/m2 Body Surface Area Calculated 1.88 m2 :04 Temperature 98 f Pulse 78 /min Comments: Pattern: Regular Respiration Rate 16 /min Comments: Pattern: Unlabored O2 SAT 98 % Comments: Room air BP Systolic 108 mm[Hg] Comments: Patient Position: Sitting; Cuff Location: Left Arm; Cuff Size: Standard BP Diastolic 58 mm[Hg] Comments: Patient Position: Sitting; Cuff Location: Left Arm; Cuff Size: Standard Weight 182 lb Height 64 in Body Mass Index Calculated 31.24 kg/m2 Body Surface Area Calculated 1.88 m2 :11 Temperature 98.4 f Comments: Method: Temporal Pulse 60 /min Comments: Pattern: Regular Respiration Rate 17 /min Comments: Pattern: Unlabored BP Systolic 124 mm[Hg] Comments: Patient Position: Sitting; Cuff Location: Left Arm; Cuff Size: Standard BP Diastolic 74 mm[Hg] Comments: Patient Position: Sitting; Cuff Location: Left Arm; Cuff Size: Standard Weight 182 lb Height 64 in Body Mass Index Calculated 31.24 kg/m2 Body Surface Area Calculated 1.88 m2 :52 Temperature 98.2 f Comments: Method: Temporal Pulse 88 /min Comments: Pattern: Regular Respiration Rate 16 /min Comments: Pattern: Unlabored O2 SAT 95 % Comments: Room air BP Systolic 128 mm[Hg] Comments: Patient Position: Sitting; Cuff Location: Left Arm; Cuff Size: Standard BP Diastolic 76 mm[Hg] Comments: Patient Position: Sitting; Cuff Location: Left Arm; Cuff Size: Standard Weight 185 lb Height 64 in Body Mass Index Calculated 31.75 kg/m2 Body Surface Area Calculated 1.89 m2 :17 Temperature 97.8 f Comments: Method: Temporal Pulse 81 /min Comments: Pattern: Regular Respiration Rate 15 /min Comments: Pattern: Unlabored BP Systolic 130 mm[Hg] Comments: Patient Position: Sitting; Cuff Location: Left Arm; Cuff Size: Standard BP Diastolic 82 mm[Hg] Comments: Patient Position: Sitting; Cuff Location: Left Arm; Cuff Size: Standard Weight 175 lb Height 64 in Body Mass Index Calculated 30.04 kg/m2 Body Surface Area Calculated 1.85 m2 :00 Temperature 97.6 f Comments: Method: Temporal Pulse 74 /min Comments: Pattern: Regular Respiration Rate 15 /min Comments: Pattern: Unlabored O2 SAT 98 % Comments: Room air BP Systolic 122 mm[Hg] Comments: Patient Position: Sitting; Cuff Location: Left Arm; Cuff Size: Standard BP Diastolic 78 mm[Hg] Comments: Patient Position: Sitting; Cuff Location: Left Arm; Cuff Size: Standard Weight 176 lb Height 64 in Body Mass Index Calculated 30.21 kg/m2 Body Surface Area Calculated 1.85 m2 :43 Temperature 97.6 f Comments: Method: Temporal Pulse 60 /min Comments: Pattern: Regular Respiration Rate 16 /min Comments: Pattern: Unlabored O2 SAT 97 % Comments: Room air BP Systolic 112 mm[Hg] Comments: Patient Position: Sitting; Cuff Location: Left Arm; Cuff Size: Standard BP Diastolic 70 mm[Hg] Comments: Patient Position: Sitting; Cuff Location: Left Arm; Cuff Size: Standard Weight 169 lb Height 64 in Body Mass Index Calculated 29.01 kg/m2 Body Surface Area Calculated 1.82 m2 :55 Temperature 97.9 f Comments: Method: Temporal Pulse 63 /min Comments: Pattern: Regular Respiration Rate 18 /min Comments: Pattern: Unlabored O2 SAT 97 % Comments: Room air BP Systolic 118 mm[Hg] Comments: Patient Position: Sitting; Cuff Location: Left Arm; Cuff Size: Large BP Diastolic 70 mm[Hg] Comments: Patient Position: Sitting; Cuff Location: Left Arm; Cuff Size: Large Weight 177.6 lb Height 64 in Body Mass Index Calculated 30.48 kg/m2 Body Surface Area Calculated 1.86 m2 :59 Temperature 98.2 f Pulse 94 /min Comments: Pattern: Regular Respiration Rate 16 /min Comments: Pattern: Unlabored O2 SAT 94 % Comments: Room air BP Systolic 104 mm[Hg] Comments: Patient Position: Sitting; Cuff Location: Left Arm; Cuff Size: Standard BP Diastolic 76 mm[Hg] Comments: Patient Position: Sitting; Cuff Location: Left Arm; Cuff Size: Standard Weight 177.6 lb Height 64 in Body Mass Index Calculated 30.48 kg/m2 Body Surface Area Calculated 1.86 m2 :31 Temperature 98.3 f Comments: Method: Temporal Pulse 60 /min Comments: Pattern: Regular Respiration Rate 16 /min Comments: Pattern: Unlabored O2 SAT 99 % Comments: Room air BP Systolic 120 mm[Hg] Comments: Patient Position: Sitting; Cuff Location: Left Arm; Cuff Size: Standard BP Diastolic 74 mm[Hg] Comments: Patient Position: Sitting; Cuff Location: Left Arm; Cuff Size: Standard Weight 196 lb Height 64 in Body Mass Index Calculated 33.64 kg/m2 Body Surface Area Calculated 1.94 m2 :08 Weight 196 lb Height 64 in Body Mass Index Calculated 33.64 kg/m2 Body Surface Area Calculated 1.94 m2 :28 Temperature 98.1 f Comments: Method: Temporal Pulse 62 /min Comments: Pattern: Regular Respiration Rate 16 /min Comments: Pattern: Unlabored O2 SAT 96 % Comments: Room air BP Systolic 120 mm[Hg] Comments: Patient Position: Sitting; Cuff Location: Left Arm; Cuff Size: Standard BP Diastolic 66 mm[Hg] Comments: Patient Position: Sitting; Cuff Location: Left Arm; Cuff Size: Standard Weight 196 lb Height 64 in Body Mass Index Calculated 33.64 kg/m2 Body Surface Area Calculated 1.94 m2 :40 Temperature 97.6 f Comments: Method: Temporal Pulse 70 /min Comments: Pattern: Regular Respiration Rate 20 /min Comments: Pattern: Unlabored O2 SAT 98 % Comments: Room air BP Systolic 110 mm[Hg] Comments: Patient Position: Sitting; Cuff Location: Left Arm; Cuff Size: Standard BP Diastolic 74 mm[Hg] Comments: Patient Position: Sitting; Cuff Location: Left Arm; Cuff Size: Standard Weight 196 lb Height 64 in Body Mass Index Calculated 33.64 kg/m2 Body Surface Area Calculated 1.94 m2 :54 Temperature 97.9 f Comments: Method: Oral Pulse 55 /min Comments: Pattern: Regular Respiration Rate 16 /min Comments: Pattern: Unlabored O2 SAT 98 % Comments: Room air BP Systolic 100 mm[Hg] Comments: Patient Position: Sitting; Cuff Location: Left Arm; Cuff Size: Standard BP Diastolic 62 mm[Hg] Comments: Patient Position: Sitting; Cuff Location: Left Arm; Cuff Size: Standard Weight 196 lb Height 64 in Body Mass Index Calculated 33.64 kg/m2 Body Surface Area Calculated 1.94 m2 :57 Temperature 97.6 f Comments: Method: Temporal Pulse 68 /min Comments: Pattern: Regular Respiration Rate 18 /min Comments: Pattern: Unlabored O2 SAT 95 % Comments: Room air BP Systolic 104 mm[Hg] Comments: Patient Position: Sitting; Cuff Location: Left Arm; Cuff Size: Large BP Diastolic 60 mm[Hg] Comments: Patient Position: Sitting; Cuff Location: Left Arm; Cuff Size: Large Weight 196 lb Height 64 in Body Mass Index Calculated 33.64 kg/m2 Body Surface Area Calculated 1.94 m2 :30 Temperature 97.9 f Comments: Method: Temporal Pulse 58 /min Comments: Pattern: Regular Respiration Rate 20 /min Comments: Pattern: Unlabored O2 SAT 97 % Comments: Room air BP Systolic 108 mm[Hg] Comments: Patient Position: Sitting; Cuff Location: Left Arm; Cuff Size: Standard BP Diastolic 68 mm[Hg] Comments: Patient Position: Sitting; Cuff Location: Left Arm; Cuff Size: Standard Weight 214 lb Height 64 in Body Mass Index Calculated 36.73 kg/m2 Body Surface Area Calculated 2.01 m2 :20 Temperature 97.5 f Comments: Method: Temporal Pulse 80 /min Comments: Pattern: Regular Respiration Rate 20 /min Comments: Pattern: Unlabored O2 SAT 94 % Comments: Room air BP Systolic 114 mm[Hg] Comments: Patient Position: Sitting; Cuff Location: Left Arm; Cuff Size: Large BP Diastolic 70 mm[Hg] Comments: Patient Position: Sitting; Cuff Location: Left Arm; Cuff Size: Large Weight 209 lb Height 64 in Body Mass Index Calculated 35.87 kg/m2 Body Surface Area Calculated 1.99 m2 :20 Temperature 97.6 f Comments: Method: Oral Pulse 68 /min Comments: Pattern: Regular Respiration Rate 20 /min Comments: Pattern: Unlabored BP Systolic 114 mm[Hg] Comments: Patient Position: Sitting; Cuff Location: Left Arm; Cuff Size: Large BP Diastolic 74 mm[Hg] Comments: Patient Position: Sitting; Cuff Location: Left Arm; Cuff Size: Large Weight 204 lb Height 64 in Body Mass Index Calculated 35.02 kg/m2 Body Surface Area Calculated 1.97 m2 :52 Temperature 97.9 f Comments: Method: Oral Pulse 64 /min Comments: Pattern: Regular Respiration Rate 18 /min Comments: Pattern: Unlabored BP Systolic 124 mm[Hg] Comments: Patient Position: Sitting; Cuff Location: Left Arm; Cuff Size: Large BP Diastolic 82 mm[Hg] Comments: Patient Position: Sitting; Cuff Location: Left Arm; Cuff Size: Large Weight 209 lb Height 64 in Body Mass Index Calculated 35.87 kg/m2 Body Surface Area Calculated 1.99 m2 :51 Temperature 99 f Comments: Method: Oral Pulse 94 /min Comments: Pattern: Regular Respiration Rate 18 /min Comments: Pattern: Unlabored O2 SAT 98 % Comments: Room air BP Systolic 120 mm[Hg] Comments: Patient Position: Sitting; Cuff Location: Left Arm; Cuff Size: Standard BP Diastolic 78 mm[Hg] Comments: Patient Position: Sitting; Cuff Location: Left Arm; Cuff Size: Standard Weight 206 lb Height 64 in Body Mass Index Calculated 35.36 kg/m2 Body Surface Area Calculated 1.98 m2 :14 Temperature 97.6 f Comments: Method: Oral Pulse 72 /min Comments: Pattern: Regular Respiration Rate 20 /min Comments: Pattern: Unlabored BP Systolic 128 mm[Hg] Comments: Patient Position: Sitting; Cuff Location: Left Arm; Cuff Size: Large BP Diastolic 84 mm[Hg] Comments: Patient Position: Sitting; Cuff Location: Left Arm; Cuff Size: Large Weight 213 lb Height 64 in Body Mass Index Calculated 36.56 kg/m2 Body Surface Area Calculated 2.01 m2 :43 Temperature 99.2 f Comments: Method: Oral Pulse 65 /min Comments: Pattern: Regular Respiration Rate 20 /min Comments: Pattern: Unlabored O2 SAT 96 % Comments: Room air BP Systolic 118 mm[Hg] Comments: Patient Position: Sitting; Cuff Location: Left Arm; Cuff Size: Large BP Diastolic 70 mm[Hg] Comments: Patient Position: Sitting; Cuff Location: Left Arm; Cuff Size: Large Weight 212.1875 lb Height 64 in Body Mass Index Calculated 36.42 kg/m2 Body Surface Area Calculated 2.01 m2 :29 Temperature 97.5 f Comments: Method: Oral Pulse 73 /min Comments: Pattern: Regular Respiration Rate 16 /min O2 SAT 96 % Comments: Room air BP Systolic 124 mm[Hg] Comments: Patient Position: Sitting; Cuff Location: Left Arm; Cuff Size: Standard BP Diastolic 74 mm[Hg] Comments: Patient Position: Sitting; Cuff Location: Left Arm; Cuff Size: Standard Weight 209 lb Height 64 in Body Mass Index Calculated 35.87 kg/m2 Body Surface Area Calculated 1.99 m2 :42 Temperature 97.9 f Comments: Method: Oral Pulse 74 /min Comments: Pattern: Regular Respiration Rate 18 /min Comments: Pattern: Unlabored BP Systolic 124 mm[Hg] Comments: Patient Position: Sitting; Cuff Location: Left Arm; Cuff Size: Large BP Diastolic 78 mm[Hg] Comments: Patient Position: Sitting; Cuff Location: Left Arm; Cuff Size: Large Weight 209 lb Height 64 in Body Mass Index Calculated 35.87 kg/m2 Body Surface Area Calculated 1.99 m2 :22 Pulse 75 /min Comments: Pattern: Regular Respiration Rate 20 /min Comments: Pattern: Unlabored O2 SAT 95 % Comments: Room air BP Systolic 120 mm[Hg] Comments: Patient Position: Sitting; Cuff Location: Left Arm; Cuff Size: Large BP Diastolic 78 mm[Hg] Comments: Patient Position: Sitting; Cuff Location: Left Arm; Cuff Size: Large Weight 206 lb Height 64 in Body Mass Index Calculated 35.36 kg/m2 Body Surface Area Calculated 1.98 m2 :46 Temperature 97.6 f Comments: Method: Oral Pulse 74 /min Comments: Pattern: Regular Respiration Rate 20 /min Comments: Pattern: Unlabored BP Systolic 116 mm[Hg] Comments: Patient Position: Sitting; Cuff Location: Left Arm; Cuff Size: Standard BP Diastolic 76 mm[Hg] Comments: Patient Position: Sitting; Cuff Location: Left Arm; Cuff Size: Standard Weight 206 lb Height 64 in Body Mass Index Calculated 35.36 kg/m2 Body Surface Area Calculated 1.98 m2 :28 Temperature 97.6 f Comments: Method: Temporal Pulse 60 /min Comments: Pattern: Regular Respiration Rate 16 /min Comments: Pattern: Unlabored O2 SAT 99 % Comments: Room air BP Systolic 124 mm[Hg] Comments: Patient Position: Sitting; Cuff Location: Left Arm; Cuff Size: Standard BP Diastolic 76 mm[Hg] Comments: Patient Position: Sitting; Cuff Location: Left Arm; Cuff Size: Standard Weight 206.3125 lb Height 64 in Body Mass Index Calculated 35.41 kg/m2 Body Surface Area Calculated 1.98 m2 :40 Temperature 98 f Comments: Method: Oral Pulse 68 /min Comments: Pattern: Regular Respiration Rate 16 /min Comments: Pattern: Unlabored O2 SAT 97 % Comments: Room air BP Systolic 120 mm[Hg] Comments: Patient Position: Sitting; Cuff Location: Left Arm; Cuff Size: Standard BP Diastolic 72 mm[Hg] Comments: Patient Position: Sitting; Cuff Location: Left Arm; Cuff Size: Standard Weight 206.3125 lb Height 64 in Body Mass Index Calculated 35.41 kg/m2 Body Surface Area Calculated 1.98 m2 :09 Temperature 98 f Comments: Method: Oral Pulse 66 /min Comments: Pattern: Regular Respiration Rate 16 /min O2 SAT 99 % Comments: Room air BP Systolic 112 mm[Hg] Comments: Patient Position: Sitting; Cuff Location: Left Arm; Cuff Size: Standard BP Diastolic 72 mm[Hg] Comments: Patient Position: Sitting; Cuff Location: Left Arm; Cuff Size: Standard Weight 217.4375 lb Height 64 in Body Mass Index Calculated 37.32 kg/m2 Body Surface Area Calculated 2.03 m2 :27 Temperature 98.6 f Comments: Method: Oral Pulse 72 /min Comments: Pattern: Regular Respiration Rate 16 /min O2 SAT 95 % Comments: Room air BP Systolic 122 mm[Hg] Comments: Patient Position: Sitting; Cuff Location: Left Arm; Cuff Size: Standard BP Diastolic 80 mm[Hg] Comments: Patient Position: Sitting; Cuff Location: Left Arm; Cuff Size: Standard Weight 217.4375 lb Height 64 in Body Mass Index Calculated 37.32 kg/m2 Body Surface Area Calculated 2.03 m2 :14 Temperature 98.8 f Comments: Method: Oral Pulse 58 /min Comments: Pattern: Regular Respiration Rate 16 /min O2 SAT 97 % Comments: Room air BP Systolic 110 mm[Hg] Comments: Patient Position: Sitting; Cuff Location: Left Arm; Cuff Size: Standard BP Diastolic 70 mm[Hg] Comments: Patient Position: Sitting; Cuff Location: Left Arm; Cuff Size: Standard Weight 211 lb Height 64 in Body Mass Index Calculated 36.22 kg/m2 Body Surface Area Calculated 2 m2 :21 Temperature 96.4 f Comments: Method: Temporal Pulse 64 /min Comments: Pattern: Regular Respiration Rate 16 /min Comments: Pattern: Unlabored O2 SAT 97 % Comments: Room air BP Systolic 130 mm[Hg] Comments: Patient Position: Sitting; Cuff Location: Left Arm; Cuff Size: Standard BP Diastolic 74 mm[Hg] Comments: Patient Position: Sitting; Cuff Location: Left Arm; Cuff Size: Standard Weight 218.7 lb Height 64 in Body Mass Index Calculated 37.54 kg/m2 Body Surface Area Calculated 2.03 m2 :13 Temperature 98.6 f Comments: Method: Oral Pulse 60 /min Comments: Pattern: Regular Respiration Rate 18 /min Comments: Pattern: Unlabored BP Systolic 112 mm[Hg] Comments: Patient Position: Sitting; Cuff Location: Right Arm; Cuff Size: Large BP Diastolic 52 mm[Hg] Comments: Patient Position: Sitting; Cuff Location: Right Arm; Cuff Size: Large Weight 191.7 lb Height 64 in Body Mass Index Calculated 32.9 kg/m2 Body Surface Area Calculated 1.92 m2 :50 Temperature 97 f Comments: Method: Oral Pulse 60 /min Comments: Pattern: Regular Respiration Rate 20 /min Comments: Pattern: Unlabored BP Systolic 122 mm[Hg] Comments: Patient Position: Sitting; Cuff Location: Left Arm; Cuff Size: Large BP Diastolic 70 mm[Hg] Comments: Patient Position: Sitting; Cuff Location: Left Arm; Cuff Size: Large Weight 191.7 lb Height 64 in Body Mass Index Calculated 32.9 kg/m2 Body Surface Area Calculated 1.92 m2 :25 Temperature 97.1 f Pulse 72 /min Comments: Pattern: Regular Respiration Rate 18 /min Comments: Pattern: Unlabored BP Systolic 124 mm[Hg] Comments: Patient Position: Sitting; Cuff Location: Left Arm; Cuff Size: Standard BP Diastolic 72 mm[Hg] Comments: Patient Position: Sitting; Cuff Location: Left Arm; Cuff Size: Standard Weight 191.7 lb Height 64 in Body Mass Index Calculated 32.9 kg/m2 Body Surface Area Calculated 1.92 m2 :42 Temperature 97.8 f Comments: Method: Oral Pulse 68 /min Comments: Pattern: Regular Respiration Rate 20 /min Comments: Pattern: Unlabored BP Systolic 124 mm[Hg] Comments: Patient Position: Sitting; Cuff Location: Left Arm; Cuff Size: Standard BP Diastolic 78 mm[Hg] Comments: Patient Position: Sitting; Cuff Location: Left Arm; Cuff Size: Standard Weight 187 lb Height 64 in Body Mass Index Calculated 32.1 kg/m2 Body Surface Area Calculated 1.9 m2 :52 Temperature 98 f Comments: Method: Oral Pulse 62 /min Comments: Pattern: Regular Respiration Rate 16 /min Comments: Pattern: Unlabored BP Systolic 126 mm[Hg] Comments: Patient Position: Sitting; Cuff Location: Left Arm; Cuff Size: Standard BP Diastolic 72 mm[Hg] Comments: Patient Position: Sitting; Cuff Location: Left Arm; Cuff Size: Standard Weight 187.3 lb Height 64 in Body Mass Index Calculated 32.15 kg/m2 Body Surface Area Calculated 1.9 m2 :58 Temperature 99 f Comments: Method: Oral Pulse 68 /min Comments: Pattern: Regular Respiration Rate 17 /min BP Systolic 122 mm[Hg] Comments: Patient Position: Sitting; Cuff Location: Left Arm; Cuff Size: Standard BP Diastolic 80 mm[Hg] Comments: Patient Position: Sitting; Cuff Location: Left Arm; Cuff Size: Standard :52 Temperature 97.3 f Comments: Method: Temporal Pulse 72 /min Comments: Pattern: Regular Respiration Rate 16 /min Comments: Pattern: Unlabored BP Systolic 118 mm[Hg] Comments: Patient Position: Sitting; Cuff Location: Left Arm; Cuff Size: Standard BP Diastolic 78 mm[Hg] Comments: Patient Position: Sitting; Cuff Location: Left Arm; Cuff Size: Standard Weight 187.3 lb Height 64 in Body Mass Index Calculated 32.15 kg/m2 Body Surface Area Calculated 1.9 m2 :03 Temperature 97.8 f Comments: Method: Oral Pulse 70 /min Comments: Pattern: Regular Respiration Rate 20 /min Comments: Pattern: Unlabored BP Systolic 114 mm[Hg] Comments: Patient Position: Sitting; Cuff Location: Left Arm; Cuff Size: Standard BP Diastolic 76 mm[Hg] Comments: Patient Position: Sitting; Cuff Location: Left Arm; Cuff Size: Standard Weight 181 lb Height 64 in Body Mass Index Calculated 31.07 kg/m2 Body Surface Area Calculated 1.87 m2 :47 Comments: Down 20 pounds in last 3 months and not really trying to lose it Temperature 98.3 f Comments: Method: Oral Pulse 76 /min Comments: Pattern: Regular Respiration Rate 16 /min Comments: Pattern: Unlabored BP Systolic 110 mm[Hg] Comments: Patient Position: Sitting; Cuff Location: Left Arm; Cuff Size: Standard BP Diastolic 70 mm[Hg] Comments: Patient Position: Sitting; Cuff Location: Left Arm; Cuff Size: Standard Weight 181.5 lb Height 64 in Body Mass Index Calculated 31.15 kg/m2 Body Surface Area Calculated 1.88 m2 :37 Temperature 97.9 f Comments: Method: Oral Pulse 76 /min Comments: Pattern: Regular Respiration Rate 20 /min Comments: Pattern: Unlabored BP Systolic 120 mm[Hg] Comments: Patient Position: Sitting; Cuff Location: Left Arm; Cuff Size: Standard BP Diastolic 78 mm[Hg] Comments: Patient Position: Sitting; Cuff Location: Left Arm; Cuff Size: Standard Weight 201 lb Height 64 in Body Mass Index Calculated 34.5 kg/m2 Body Surface Area Calculated 1.96 m2 :01 Temperature 98.1 f Comments: Method: Oral Pulse 68 /min Comments: Pattern: Regular Respiration Rate 26 /min Comments: Pattern: Labored O2 SAT 96 % Comments: Room air BP Systolic 108 mm[Hg] Comments: Patient Position: Sitting; Cuff Location: Left Arm; Cuff Size: Standard BP Diastolic 76 mm[Hg] Comments: Patient Position: Sitting; Cuff Location: Left Arm; Cuff Size: Standard Weight 201 lb Height 64 in Body Mass Index Calculated 34.5 kg/m2 Body Surface Area Calculated 1.96 m2 :35 Temperature 99.2 f Pulse 64 /min Comments: Pattern: Regular Respiration Rate 18 /min Comments: Pattern: Unlabored O2 SAT 93 % Comments: Room air BP Systolic 100 mm[Hg] Comments: Patient Position: Sitting; Cuff Location: Left Arm; Cuff Size: Large BP Diastolic 72 mm[Hg] Comments: Patient Position: Sitting; Cuff Location: Left Arm; Cuff Size: Large Weight 201 lb Height 64 in Body Mass Index Calculated 34.5 kg/m2 Body Surface Area Calculated 1.96 m2 :00 Temperature 97.6 f Comments: Method: Oral Pulse 68 /min Comments: Pattern: Regular Respiration Rate 18 /min Comments: Pattern: Unlabored BP Systolic 118 mm[Hg] Comments: Patient Position: Sitting; Cuff Location: Left Arm; Cuff Size: Large BP Diastolic 76 mm[Hg] Comments: Patient Position: Sitting; Cuff Location: Left Arm; Cuff Size: Large Weight 219 lb Height 64 in Body Mass Index Calculated 37.59 kg/m2 Body Surface Area Calculated 2.03 m2 :46 Temperature 97.9 f Comments: Method: Oral Pulse 74 /min Comments: Pattern: Regular Respiration Rate 18 /min Comments: Pattern: Unlabored BP Systolic 122 mm[Hg] Comments: Patient Position: Sitting; Cuff Location: Left Arm; Cuff Size: Standard BP Diastolic 78 mm[Hg] Comments: Patient Position: Sitting; Cuff Location: Left Arm; Cuff Size: Standard Weight 219 lb Height 64 in Body Mass Index Calculated 37.59 kg/m2 Body Surface Area Calculated 2.03 m2 :55 Temperature 97.9 f Comments: Method: Oral Pulse 68 /min Comments: Pattern: Regular BP Systolic 118 mm[Hg] Comments: Patient Position: Sitting; Cuff Location: Left Arm; Cuff Size: Standard BP Diastolic 70 mm[Hg] Comments: Patient Position: Sitting; Cuff Location: Left Arm; Cuff Size: Standard Weight 218 lb Height 64 in Body Mass Index Calculated 37.42 kg/m2 Body Surface Area Calculated 2.03 m2 :28 Temperature 98.1 f Comments: Method: Oral Pulse 68 /min Comments: Pattern: Regular Respiration Rate 18 /min Comments: Pattern: Unlabored BP Systolic 118 mm[Hg] Comments: Patient Position: Sitting; Cuff Location: Left Arm; Cuff Size: Standard BP Diastolic 78 mm[Hg] Comments: Patient Position: Sitting; Cuff Location: Left Arm; Cuff Size: Standard Weight 218 lb Height 64 in Body Mass Index Calculated 37.42 kg/m2 Body Surface Area Calculated 2.03 m2 :35 Temperature 97.9 f Comments: Method: Oral Pulse 76 /min Comments: Pattern: Regular Respiration Rate 16 /min Comments: Pattern: Unlabored BP Systolic 124 mm[Hg] Comments: Patient Position: Sitting; Cuff Location: Left Arm; Cuff Size: Standard BP Diastolic 72 mm[Hg] Comments: Patient Position: Sitting; Cuff Location: Left Arm; Cuff Size: Standard Weight 217.5 lb Height 64 in Body Mass Index Calculated 37.33 kg/m2 Body Surface Area Calculated 2.03 m2 :57 Temperature 98.2 f Comments: Method: Oral Pulse 64 /min Comments: Pattern: Regular Respiration Rate 18 /min Comments: Pattern: Unlabored BP Systolic 122 mm[Hg] Comments: Patient Position: Sitting; Cuff Location: Left Arm; Cuff Size: Standard BP Diastolic 76 mm[Hg] Comments: Patient Position: Sitting; Cuff Location: Left Arm; Cuff Size: Standard Weight 224 lb Height 65 in Body Mass Index Calculated 37.28 kg/m2 Body Surface Area Calculated 2.08 m2 :17 Temperature 97.6 f Comments: Method: Oral Pulse 74 /min Comments: Pattern: Regular Respiration Rate 20 /min Comments: Pattern: Unlabored BP Systolic 118 mm[Hg] Comments: Patient Position: Sitting; Cuff Location: Left Arm; Cuff Size: Standard BP Diastolic 78 mm[Hg] Comments: Patient Position: Sitting; Cuff Location: Left Arm; Cuff Size: Standard Weight 219 lb Height 65 in Body Mass Index Calculated 36.44 kg/m2 Body Surface Area Calculated 2.06 m2 :34 Temperature 98 f Comments: Method: Oral Pulse 78 /min Comments: Pattern: Regular Respiration Rate 17 /min Comments: Pattern: Unlabored BP Systolic 122 mm[Hg] Comments: Patient Position: Sitting; Cuff Location: Left Arm; Cuff Size: Standard BP Diastolic 76 mm[Hg] Comments: Patient Position: Sitting; Cuff Location: Left Arm; Cuff Size: Standard Weight 213 lb :12 Temperature 97.9 f Comments: Method: Oral Pulse 72 /min Comments: Pattern: Regular Respiration Rate 20 /min Comments: Pattern: Unlabored BP Systolic 120 mm[Hg] Comments: Patient Position: Sitting; Cuff Location: Left Arm; Cuff Size: Standard BP Diastolic 80 mm[Hg] Comments: Patient Position: Sitting; Cuff Location: Left Arm; Cuff Size: Standard Weight 213 lb :06 Temperature 97.6 f Comments: Method: Oral Pulse 80 /min Comments: Pattern: Regular Respiration Rate 17 /min Comments: Pattern: Unlabored BP Systolic 120 mm[Hg] Comments: Patient Position: Sitting; Cuff Location: Left Arm; Cuff Size: Standard BP Diastolic 72 mm[Hg] Comments: Patient Position: Sitting; Cuff Location: Left Arm; Cuff Size: Standard Weight 213 lb :20 Temperature 98.1 f Comments: Method: Oral Pulse 76 /min Comments: Pattern: Regular Respiration Rate 16 /min Comments: Pattern: Unlabored BP Systolic 122 mm[Hg] Comments: Patient Position: Sitting; Cuff Location: Left Arm; Cuff Size: Standard BP Diastolic 78 mm[Hg] Comments: Patient Position: Sitting; Cuff Location: Left Arm; Cuff Size: Standard Weight 213 lb :41 Temperature 97.9 f Comments: Method: Oral Pulse 70 /min Comments: Pattern: Regular Respiration Rate 20 /min Comments: Pattern: Unlabored BP Systolic 124 mm[Hg] Comments: Patient Position: Sitting; Cuff Location: Left Arm; Cuff Size: Large BP Diastolic 80 mm[Hg] Comments: Patient Position: Sitting; Cuff Location: Left Arm; Cuff Size: Large Weight 213 lb :57 Pulse 70 /min Comments: Pattern: Regular Respiration Rate 18 /min Comments: Pattern: Unlabored BP Systolic 120 mm[Hg] Comments: Patient Position: Sitting; Cuff Location: Left Arm; Cuff Size: Standard BP Diastolic 78 mm[Hg] Comments: Patient Position: Sitting; Cuff Location: Left Arm; Cuff Size: Standard Weight 225 lb :03 Pulse 74 /min Comments: Pattern: Regular Respiration Rate 20 /min Comments: Pattern: Unlabored BP Systolic 126 mm[Hg] Comments: Patient Position: Sitting; Cuff Location: Left Arm; Cuff Size: Large BP Diastolic 80 mm[Hg] Comments: Patient Position: Sitting; Cuff Location: Left Arm; Cuff Size: Large Weight 225 lb :46 Pulse 70 /min Comments: Pattern: Regular Respiration Rate 20 /min Comments: Pattern: Unlabored BP Systolic 124 mm[Hg] Comments: Patient Position: Sitting; Cuff Location: Left Arm; Cuff Size: Standard BP Diastolic 82 mm[Hg] Comments: Patient Position: Sitting; Cuff Location: Left Arm; Cuff Size: Standard Weight 229 lb :38 Pulse 68 /min Comments: Pattern: Regular Respiration Rate 20 /min Comments: Pattern: Unlabored BP Systolic 126 mm[Hg] Comments: Patient Position: Sitting; Cuff Location: Left Arm; Cuff Size: Large BP Diastolic 84 mm[Hg] Comments: Patient Position: Sitting; Cuff Location: Left Arm; Cuff Size: Large Weight 229 lb :28 Pulse 60 /min Comments: Pattern: Regular Respiration Rate 20 /min Comments: Pattern: Unlabored BP Systolic 122 mm[Hg] Comments: Patient Position: Sitting; Cuff Location: Left Arm; Cuff Size: Large BP Diastolic 88 mm[Hg] Comments: Patient Position: Sitting; Cuff Location: Left Arm; Cuff Size: Large Weight 222 lb :31 Pulse 78 /min Comments: Pattern: Regular Respiration Rate 18 /min Comments: Pattern: Unlabored BP Systolic 126 mm[Hg] Comments: Patient Position: Sitting; Cuff Location: Left Arm; Cuff Size: Standard BP Diastolic 78 mm[Hg] Comments: Patient Position: Sitting; Cuff Location: Left Arm; Cuff Size: Standard Weight 222 lb Height 0 in Head Circumference 0.00 cm :06 Pulse 98 /min Comments: Pattern: Regular Respiration Rate 18 /min Comments: Pattern: Unlabored O2 SAT 98 % Comments: Room air BP Systolic 124 mm[Hg] Comments: Patient Position: Sitting; Cuff Location: Left Arm; Cuff Size: Large BP Diastolic 80 mm[Hg] Comments: Patient Position: Sitting; Cuff Location: Left Arm; Cuff Size: Large Weight 0 lb Height 0 in Head Circumference 0.00 cm :22 Pulse 74 /min Comments: Pattern: Regular Respiration Rate 18 /min Comments: Pattern: Unlabored BP Systolic 122 mm[Hg] Comments: Patient Position: Sitting; Cuff Location: Left Arm; Cuff Size: Large BP Diastolic 82 mm[Hg] Comments: Patient Position: Sitting; Cuff Location: Left Arm; Cuff Size: Large Weight 221 lb Height 0 in Head Circumference 0.00 cm :29 Pulse 76 /min Comments: Pattern: Regular Respiration Rate 18 /min Comments: Pattern: Unlabored BP Systolic 124 mm[Hg] Comments: Patient Position: Sitting; Cuff Location: Left Arm; Cuff Size: Large BP Diastolic 80 mm[Hg] Comments: Patient Position: Sitting; Cuff Location: Left Arm; Cuff Size: Large Weight 221 lb Height 0 in Head Circumference 0.00 cm :08 Temperature 98.4 f Comments: Method: Undefined Pulse 80 /min Comments: Pattern: Regular Respiration Rate 18 /min Comments: Pattern: Undefined BP Systolic 134 mm[Hg] Comments: Patient Position: Sitting; Cuff Location: Left Arm; Cuff Size: Standard BP Diastolic 78 mm[Hg] Comments: Patient Position: Sitting; Cuff Location: Left Arm; Cuff Size: Standard Weight 0 lb Height 0 in Head Circumference 0.00 cm :43 Temperature 97.6 f Comments: Method: Undefined Pulse 68 /min Comments: Pattern: Regular Respiration Rate 28 /min Comments: Pattern: Undefined O2 SAT 97 % Comments: Room air BP Systolic 118 mm[Hg] Comments: Patient Position: Sitting; Cuff Location: Left Arm; Cuff Size: Standard BP Diastolic 82 mm[Hg] Comments: Patient Position: Sitting; Cuff Location: Left Arm; Cuff Size: Standard Weight 0 lb Height 0 in Head Circumference 0.00 cm :58 Temperature 98.6 f Comments: Method: Undefined Pulse 68 /min Comments: Pattern: Regular Respiration Rate 18 /min Comments: Pattern: Undefined BP Systolic 112 mm[Hg] Comments: Patient Position: Sitting; Cuff Location: Right Arm; Cuff Size: Large BP Diastolic 60 mm[Hg] Comments: Patient Position: Sitting; Cuff Location: Right Arm; Cuff Size: Large Weight 0 lb Height 0 in Head Circumference 0.00 cm :46 Pulse 74 /min Comments: Pattern: Regular Respiration Rate 18 /min Comments: Pattern: Unlabored O2 SAT 97 % Comments: Room air BP Systolic 132 mm[Hg] Comments: Patient Position: Sitting; Cuff Location: Left Arm; Cuff Size: Standard BP Diastolic 84 mm[Hg] Comments: Patient Position: Sitting; Cuff Location: Left Arm; Cuff Size: Standard Weight 208 lb Height 0 in Head Circumference 0.00 cm :28 Temperature 98.2 f Comments: Method: Oral Pulse 70 /min Comments: Pattern: Regular Respiration Rate 16 /min Comments: Pattern: Unlabored BP Systolic 120 mm[Hg] Comments: Patient Position: Sitting; Cuff Location: Left Arm; Cuff Size: Standard BP Diastolic 82 mm[Hg] Comments: Patient Position: Sitting; Cuff Location: Left Arm; Cuff Size: Standard Weight 201 lb Height 0 in Head Circumference 0.00 cm :33 Temperature 97.8 f Comments: Method: Oral Pulse 64 /min Comments: Pattern: Regular Respiration Rate 18 /min Comments: Pattern: Unlabored BP Systolic 124 mm[Hg] Comments: Patient Position: Sitting; Cuff Location: Left Arm; Cuff Size: Standard BP Diastolic 80 mm[Hg] Comments: Patient Position: Sitting; Cuff Location: Left Arm; Cuff Size: Standard Weight 200 lb Height 0 in Head Circumference 0.00 cm :37 Temperature 98.6 f Comments: Method: Oral Pulse 74 /min Comments: Pattern: Regular Respiration Rate 18 /min Comments: Pattern: Unlabored BP Systolic 124 mm[Hg] Comments: Patient Position: Sitting; Cuff Location: Left Arm; Cuff Size: Standard BP Diastolic 80 mm[Hg] Comments: Patient Position: Sitting; Cuff Location: Left Arm; Cuff Size: Standard Weight 201 lb Height 0 in Head Circumference 0.00 cm :11 Temperature 97.6 f Comments: Method: Oral Pulse 70 /min Comments: Pattern: Regular Respiration Rate 20 /min Comments: Pattern: Unlabored BP Systolic 124 mm[Hg] Comments: Patient Position: Sitting; Cuff Location: Left Arm; Cuff Size: Standard BP Diastolic 86 mm[Hg] Comments: Patient Position: Sitting; Cuff Location: Left Arm; Cuff Size: Standard Weight 225 lb Height 65 in Body Mass Index Calculated 37.44 kg/m2 Body Surface Area Calculated 2.08 m2 Head Circumference 0.00 cm Results Date Description Value Details :57 CREATININE FINGERSTICK Comments: [id number] [place] [address] EGFR WB 55.0000 mL/min (Abnormal) CREATININE WB 1.1 mg/dL (Abnormal) Range: 0.55-1.02 [id number] D-Dimer ([id number]) Comments: PATIENT NOT FASTINGPERFORMED BY: [employer] [id number] [facility] [id number] D-Dimer 0.57 {mg/L_FEU} (Abnormal) Range: 0.00-0.49 Comments: According to the assay lusterer's published package insert, anormal (<0.50 mg/L FEU) D-dimer result in conjunction with a non-highclinical probability assessment, excludes deep vein thrombosis (D VT)and pulmonary embolism (PE) with high sensitivity. .D-dimer values increase with age and this can make VTE exclusion ofan older pop ulation difficult. To address this, the [employer], based on best available evidence and recent guidelines,recommends that clinicians use age-adjusted D-dimer thresholds inpatients gr eater than 50 years of age with: a) a low probability ofPE who do not meet all Pulmonary Embolism Rule Out Criteria, orb) in those with intermediate probability of PE. The formula for anage-adjusted D-d mohan cut-off is age/100. For example, a 60 year oldpatient would have an age-adjusted cut-off of 0.60 mg/L FEU and an80 year old 0.80 mg/L FEU. [id number] Troponin I ([id number]) Comments: PATIENT NOT FASTINGPERFORMED BY: [facility] Group[facility] [id number] [facility] [id number] Troponin I <0.01 ng/mL (Normal) Range: 0.00-0.04 [id number] CPK MB FRACTION ([id number]) Comments: PATIENT NOT FASTINGPERFORMED BY: [facility] InstituteWratyz9796 [facility] [id number] Creatine Kinase (CK), MB 2.5 ng/mL (Normal) Range: 0.0-5.3 82-Dav-934561:19 CREATINE KINASE TOTAL (04906) Comments: PATIENT NOT FASTINGPERFORMED BY: [facility] Kxpggx7225 [address] Al[place] [id number] Creatine Kinase,Total 103 U/L (Normal) Range: 24-173 82-Sqv-63614:16 CBC-Complete Blood Cnt No Diff Comments: [facility] [address] [place], [address] MPV 10.5 fL (Normal) Range: 6.2-12.0 PLT 216 K/mm3 (Normal) Range: 150-450 RDW SD 43.2 fL (Normal) Range: 35.1-43.9 RDW CV 12.9 % (Normal) Range: 11.6-14.6 MCHC 33.5 {g/gl} (Normal) Range: 32-36 MCH 31.3 pg (Normal) Range: 27.0-32.0 MCV 93.3 fL (Normal) Range: 81-99 HCT 41.8 % (Normal) Range: 37-47 HGB 14.0 g/dL (Normal) Range: 12.0-15.0 RBC 4.48 {M/mm3} (Normal) Range: 4.2-5.4 WBC 8.3 K/mm3 (Normal) Range: 4.4-11.0 :16 Microalb:Creat Ratio,Random UR Comments: [facility] [address] [place], [address] MALB:CREAT Test not performed {mg/g_CRE} (Normal) MICROALBUMIN,UR < 5.0 mg/L (Normal) UR CREAT < 13.00 mg/dL (Normal) :16 PTHIN 51.5 pg/mL (Normal) Comments: [facility] [address] [place], [address] Range: 18.4-80.1 62-Zkb-25510:16 Renal Profile Comments: [facility] [address] [place], [address] CO2 28.0 mmol/L (Normal) Range: 21.0-32.0 CL 103 mmol/L (Normal) Range: 98-107 K 4.4 mmol/L (Normal) Range: 3.5-5.1 NA 139 mmol/L (Normal) Range: 136-145 PHOS 2.8 mg/dL (Normal) Range: 2.5-4.9 CA 8.9 mg/dL (Normal) Range: 8.5-10.1 ALB 3.4 g/dL (Normal) Range: 3.2-5.0 BUN/CRE 15.3 {RATIO} (Normal) Range: 10-20 EST GFR - AA 55 mL/min (Abnormal) Comments: GFR Calc EST GFR 46 mL/min (Abnormal) Comments: Non- GFR Calc CREAT,SERUM 1.24 mg/dL (Abnormal) Range: 0.55-1.02 Comments: The validity of the calculated GFR AND GFRAA in patients over70 years has not been determined. Clinical correlation isessential. BUN 19 mg/dL (Abnormal) Range: 7-18 GLU 93 mg/dL (Normal) Range: 74-106 Comments: Please note revised GLUCOSE reference range gbdusqeod88/02/2018. 52-Bfm-89558:16 Vitamin D,25 Hydroxy Comments: [facility] [address] [place], [place], [address] Vitamin D 25-OH 69.4 ng/mL (Normal) Range: 29.95-100.01 Comments: Vitamin D 25(OH) Status Range Deficiency <20 ng/mL (50nmol/L) Insuffciency 20 - 30 ng/mL (50 - 75 nmol/L) Sufficiency 30 - 100 ng/mL (75 - 250 nmol/L) Toxicity >100 ng/mL (>250 nmol/L) :04 HgA1C , Office (19509) HgA1C , Office 5.5 % (Normal) Range: 4.6 - 7.1 :23 CALCIFEDIOL (09313) Comments: PATIENT WAS FASTINGPERFORMED BY: [facility]CoAtl[facility] Rehabilitation InstituteToqnxf9809 [facility] [id number] Vitamin D, 25-Hydroxy 43.2 ng/mL (Normal) Range: 30.0-100.0 Comments: Vitamin D deficiency has been defined by the [place] and an Endocrine Society practice guideline as alevel of serum 25-OH vitamin D less than 20 ng/mL (1,2).The Endocrine Society went on to further define vitamin Dinsufficiency as a level between 21 and 29 ng/mL (2).1. IOM ([place]). 2010. Dietary reference intakes for calcium and D. [place]: The National Academies Press.2. Azael MF, Leslee NC, Hillary PHILLIPS, et al. Evaluation, treatment, and prevention of vitamin D deficiency: an Endocrine Society clinical practice guideline. JCEM. 2010; 96(7):1911-30. 83-Szb-83014:23 CBC, Platelets & Auto Diff Comments: PATIENT WAS FASTINGPERFORMED BY: [facility]CoAtl[facility] Rehabilitation InstituteYocolw7982 [facility] [id number] ([id number]) Immature Grans (Abs) 0.0 {x10E3/uL} (Normal) Range: 0.0-0.1 Immature Granulocytes 0 % (Normal) Baso (Absolute) 0.1 {x10E3/uL} (Normal) Range: 0.0-0.2 Eos (Absolute) 0.5 {x10E3/uL} (Abnormal) Range: 0.0-0.4 Monocytes(Absolute) 0.9 {x10E3/uL} (Normal) Range: 0.1-0.9 Lymphs (Absolute) 2.4 {x10E3/uL} (Normal) Range: 0.7-3.1 Neutrophils (Absolute) 3.3 {x10E3/uL} (Normal) Range: 1.4-7.0 Basos 1 % (Normal) Eos 7 % (Normal) Monocytes 12 % (Normal) Lymphs 34 % (Normal) Neutrophils 46 % (Normal) Platelets 310 {x10E3/uL} (Normal) Range: 150-379 RDW 13.8 % (Normal) Range: 12.3-15.4 MCHC 32.6 g/dL (Normal) Range: 31.5-35.7 MCH 30.9 pg (Normal) Range: 26.6-33.0 MCV 95 fL (Normal) Range: 79-97 Hematocrit 40.8 % (Normal) Range: 34.0-46.6 Hemoglobin 13.3 g/dL (Normal) Range: 11.1-15.9 RBC 4.30 {x10E6/uL} (Normal) Range: 3.77-5.28 WBC 7.1 {x10E3/uL} (Normal) Range: 3.4-10.8 :23 Metabolic Panel, Comprehensive Comments: PATIENT WAS FASTINGPERFORMED BY: [employer] Qakkot1216 [facility] [id number] (75629) ALT (SGPT) 15 [iU]/L (Normal) Range: 0-32 AST (SGOT) 26 [iU]/L (Normal) Range: 0-40 Alkaline Phosphatase, S 59 [iU]/L (Normal) Range: 39-117 Bilirubin, Total 0.2 mg/dL (Normal) Range: 0.0-1.2 A/G Ratio 1.7 (Normal) Range: 1.2-2.2 Globulin, Total 2.5 g/dL (Normal) Range: 1.5-4.5 Albumin, Serum 4.3 g/dL (Normal) Range: 3.6-4.8 Protein, Total, Serum 6.8 g/dL (Normal) Range: 6.0-8.5 Calcium, Serum 9.2 mg/dL (Normal) Range: 8.7-10.3 Carbon Dioxide, Total 25 mmol/L (Normal) Range: 18-29 Chloride, Serum 99 mmol/L (Normal) Range: 96-106 Potassium, Serum 4.6 mmol/L (Normal) Range: 3.5-5.2 Sodium, Serum 141 mmol/L (Normal) Range: 134-144 BUN/Creatinine Ratio 10 (Abnormal) Range: 12-28 eGFR If Africn Am 47 mL/min/1.73 (Abnormal) eGFR If NonAfricn Am 41 mL/min/1.73 (Abnormal) Creatinine, Serum 1.33 mg/dL (Abnormal) Range: 0.57-1.00 BUN 13 mg/dL (Normal) Range: 8-27 Glucose, Serum 82 mg/dL (Normal) Range: 65-99 :23 MICROALBUMIN: CREATININE RATIO Comments: PATIENT WAS FASTINGPERFORMED BY: [employer] GroupArtesia General HospitalGdxajp3464 [facility] [id number] ([id number]) AND (18802) Alb/Creat Ratio <5.6 {mg/g_creat} (Normal) Range: 0.0-30.0 Albumin, Urine <3.0 ug/mL (Normal) Creatinine, Urine 53.5 mg/dL (Normal) 38-Dcz-419209:31 Metabolic Panel, Basic Comments: PATIENT NOT FASTINGPERFORMED BY: [employer] [place] [id number] (39352) Calcium, Serum 9.9 mg/dL (Normal) Range: 8.7-10.3 Carbon Dioxide, Total 24 mmol/L (Normal) Range: 18-29 Chloride, Serum 101 mmol/L (Normal) Range: 96-106 Potassium, Serum 4.6 mmol/L (Normal) Range: 3.5-5.2 Sodium, Serum 143 mmol/L (Normal) Range: 134-144 BUN/Creatinine Ratio 9 (Abnormal) Range: 12-28 eGFR If Africn Am 43 (Abnormal) eGFR If NonAfricn Am 37 (Abnormal) Creatinine, Serum 1.43 mg/dL (Abnormal) Range: 0.57-1.00 BUN 13 mg/dL (Normal) Range: 8-27 Glucose, Serum 85 mg/dL (Normal) Range: 65-99 02-Nov-20178:55 HgA1C , Office (42800) Comments: 5.5 HgA1C , Office 5.5 % (Normal) Range: 4.6 - 7.1 6-Ayz-552794:22 VITAMIN B12 AND FOLATES Comments: today; PATIENT NOT FASTINGPERFORMED BY: [employer] [place] [id number] ([id number]) Folate (Folic Acid), Serum >20.0 ng/mL (Normal) Comments: A serum folate concentration of less than 3.1 ng/mL isconsidered to represent clinical deficiency. Vitamin B12 655 pg/mL (Normal) Range: 232-1245 Comments: Please note reference interval change 90-Ydq-696061:58 CALCIFEDIOL (47071) Comments: PATIENT NOT FASTINGPERFORMED BY: [id number] [place] [id number] Vitamin D, 25-Hydroxy 25.2 ng/mL (Abnormal) Range: 30.0-100.0 Comments: Vitamin D deficiency has been defined by the [place] and an Endocrine Society practice guideline as alevel of serum 25-OH vitamin D less than 20 ng/mL (1,2).The Endocrine Society went on to further define vitamin Dinsufficiency as a level between 21 and 29 ng/mL (2).1. IOM ([place]). 2010. Dietary reference intakes for calcium and D. [place]: The National Academies Press.2. Azael MF, Leslee LEMON, Hillary PHILLIPS, et al. Evaluation, treatment, and prevention of vitamin D deficiency: an Endocrine Society clinical practice guideline. JCEM. 2010; 96(7):1911-30. :58 TSH (THYROID STIMULATING Comments: PATIENT NOT FASTINGPERFORMED BY: [employer] [facility] Qbmfst9843 [address] [place] [id number] HORMONE) (80102) TSH 2.410 {uIU/mL} (Normal) Range: 0.450-4.500 :58 CBC WITH MANUAL DIFF (92319) Comments: PATIENT NOT FASTINGPERFORMED BY: [facility] Zhblzl1375 CodeRyteCarolinas Continuecare Hospital [facility]in [place] [id number] Immature Grans (Abs) 0.0 {x10E3/uL} (Normal) Range: 0.0-0.1 Immature Granulocytes 0 % (Normal) Baso (Absolute) 0.1 {x10E3/uL} (Normal) Range: 0.0-0.2 Eos (Absolute) 0.4 {x10E3/uL} (Normal) Range: 0.0-0.4 Monocytes(Absolute) 1.2 {x10E3/uL} (Abnormal) Range: 0.1-0.9 Lymphs (Absolute) 2.3 {x10E3/uL} (Normal) Range: 0.7-3.1 Neutrophils (Absolute) 3.6 {x10E3/uL} (Normal) Range: 1.4-7.0 Basos 1 % (Normal) Eos 5 % (Normal) Monocytes 16 % (Normal) Lymphs 31 % (Normal) Neutrophils 47 % (Normal) Platelets 318 {x10E3/uL} (Normal) Range: 150-379 RDW 13.4 % (Normal) Range: 12.3-15.4 MCHC 32.2 g/dL (Normal) Range: 31.5-35.7 MCH 31.4 pg (Normal) Range: 26.6-33.0 MCV 97 fL (Normal) Range: 79-97 Hematocrit 42.8 % (Normal) Range: 34.0-46.6 Hemoglobin 13.8 g/dL (Normal) Range: 11.1-15.9 Comments: Please note reference interval change RBC 4.40 {x10E6/uL} (Normal) Range: 3.77-5.28 WBC 7.7 {x10E3/uL} (Normal) Range: 3.4-10.8 87-Lwt-260423:58 Metabolic Panel, Comprehensive Comments: PATIENT NOT FASTINGPERFORMED BY: EMIL [facility] Dkasvf7991 [facility] [id number] (62812) ALT (SGPT) 13 [iU]/L (Normal) Range: 0-32 AST (SGOT) 21 [iU]/L (Normal) Range: 0-40 Alkaline Phosphatase, S 59 [iU]/L (Normal) Range: 39-117 Bilirubin, Total <0.2 mg/dL (Normal) Range: 0.0-1.2 A/G Ratio 1.3 (Normal) Range: 1.2-2.2 Globulin, Total 3.1 g/dL (Normal) Range: 1.5-4.5 Albumin, Serum 4.1 g/dL (Normal) Range: 3.6-4.8 Protein, Total, Serum 7.2 g/dL (Normal) Range: 6.0-8.5 Calcium, Serum 9.2 mg/dL (Normal) Range: 8.7-10.3 Carbon Dioxide, Total 22 mmol/L (Normal) Range: 18-29 Chloride, Serum 106 mmol/L (Normal) Range: 96-106 Potassium, Serum 4.6 mmol/L (Normal) Range: 3.5-5.2 Sodium, Serum 144 mmol/L (Normal) Range: 134-144 BUN/Creatinine Ratio 12 (Normal) Range: 12-28 eGFR If Africn Am 44 mL/min/1.73 (Abnormal) eGFR If NonAfricn Am 38 mL/min/1.73 (Abnormal) Creatinine, Serum 1.40 mg/dL (Abnormal) Range: 0.57-1.00 BUN 17 mg/dL (Normal) Range: 8-27 Glucose, Serum 90 mg/dL (Normal) Range: 65-99 0-Yyv-084668:07 Bedside Glucose Comments: [facility] LaboratoryPoint of [address]ql[address] [place] [address] BEDSIDE GLU 100 mg/dL (Normal) Range: 70-110 Comments: MANAGEMENT OF PATIENT CARE PER NURSING PROTOCOL 42-Unc-383101:14 D-Dimer Quantitative (DVT/PE) Comments: Order Date: 08/30/17Order Info: [id number] - [facility] [address]bbqbt[address] [place], [place], [address] D-DIMER QUANT 0.35 {FEU/ug/m} (Normal) Range: 0.27-0.49 Comments: NORMAL D-Dimer level (<0.50) indicates no DVT or PE. 99-Bex-313554:44 Blood Glucose , Office (28831) Blood Glucose , 129 (Normal) Office :2 Request Problem Final report Comments: PATIENT NOT FASTINGPERFORMED BY: [employer] [facility] Cjhing4878 [facility] [id number] Information: MOUTH SRC:MO 1 (Normal) Comments: Inappropriate source for anaerobic culture. A routine aerobic culturewas initiated. Contact the Microbiology Lab for further information. :2 Test Code Change SPRCS (Normal) Comments: PATIENT NOT FASTINGPERFORMED BY: [employer] [facility] Vyzboc0918 [facility] [id number] 1 Comments: Please note that the Microbiology test code was changed to reflectthe specimen source or transport received. :21 Upper Respiratory Culture Comments: PATIENT NOT FASTINGPERFORMED BY: [employer] [facility] Gygavu6974 [facility] [id number] Result 1 RRF (Normal) Comments: Routine respiratory duyen Upper Respiratory Culture Final report (Normal) :59 Metabolic Panel, Comprehensive Comments: Jul 2017; PATIENT NOT FASTINGPERFORMED BY: [employer] [facility] Tleljo1670 [facility] [id number] (41160) ALT (SGPT) 16 [iU]/L (Normal) Range: 0-32 AST (SGOT) 25 [iU]/L (Normal) Range: 0-40 Alkaline Phosphatase, S 56 [iU]/L (Normal) Range: 39-117 Bilirubin, Total 0.2 mg/dL (Normal) Range: 0.0-1.2 A/G Ratio 1.3 (Normal) Range: 1.2-2.2 Globulin, Total 3.5 g/dL (Normal) Range: 1.5-4.5 Albumin, Serum 4.4 g/dL (Normal) Range: 3.6-4.8 Protein, Total, Serum 7.9 g/dL (Normal) Range: 6.0-8.5 Calcium, Serum 9.8 mg/dL (Normal) Range: 8.7-10.3 Carbon Dioxide, Total 25 mmol/L (Normal) Range: 18-29 Chloride, Serum 96 mmol/L (Normal) Range: 96-106 Potassium, Serum 4.6 mmol/L (Normal) Range: 3.5-5.2 Sodium, Serum 138 mmol/L (Normal) Range: 134-144 BUN/Creatinine Ratio 16 (Normal) Range: 12-28 eGFR If Africn Am 36 mL/min/1.73 (Abnormal) eGFR If NonAfricn Am 31 mL/min/1.73 (Abnormal) Creatinine, Serum 1.66 mg/dL (Abnormal) Range: 0.57-1.00 BUN 27 mg/dL (Normal) Range: 8-27 Glucose, Serum 80 mg/dL (Normal) Range: 65-99 86-Vqa-098891:59 MAGNESIUM (25650) Comments: today; PATIENT NOT FASTINGPERFORMED BY: [facility] Gfxcku0228 [facility] [id number] Magnesium, Serum 2.2 mg/dL (Normal) Range: 1.6-2.3 :04 Blood Glucose , Office (55409) Blood Glucose , Office 111 (Normal) :04 HgA1C , Office (43974) HgA1C , Office 5.5 % (Normal) Range: 4.6 - 7.1 :03 CBC W/Diff, Automated Comments: [facility] [address] [place], [place], [id number] ; another doc Absolute Lymph 2.35 {X10_3/ul} (Normal) Range: 0.83-4.51 Absolute Neut 2.7 {X10_3/uL} (Normal) Range: 2.0-7.7 IM GRAN % 0.300 % (Normal) Range: 0.0-0.9 Comments: IG% - Immature Granulocytes (promyelocytes, myelocytes andmetamyelocytes) > 1% indicates that a LEFT SHIFT is Present. BASO% 1.1 % (Abnormal) Range: 0-1 EO% 4.0 % (Normal) Range: 0-5 MONO% 16.9 % (Abnormal) Range: 0-10 LY% 36.1 % (Normal) Range: 19-41 NEUT% 41.6 % (Abnormal) Range: 47-70 MPV 9.7 fL (Normal) Range: 6.2-12.0 PLT 257 K/mm3 (Normal) Range: 150-450 RDW SD 46.2 fL (Abnormal) Range: 35.1-43.9 RDW CV 13.7 % (Normal) Range: 11.6-14.6 MCHC 33.2 {g/gl} (Normal) Range: 32-36 MCH 31.9 pg (Normal) Range: 27.0-32.0 MCV 96.1 fL (Normal) Range: 81-99 HCT 39.5 % (Normal) Range: 37-47 HGB 13.1 g/dL (Normal) Range: 12.0-15.0 RBC 4.11 {M/mm3} (Abnormal) Range: 4.2-5.4 WBC 6.5 K/mm3 (Normal) Range: 4.4-11.0 :03 Protein+Creatinine Ratio,Urine Comments: [facility] [address] [place], [place], [id number] PROT:CRE RATIO 403 {mg/g_CRE} (Abnormal) Range: 0-200 PROTEIN,UR.RAN. < 6.0 mg/dL (Normal) UR CREAT 13.90 mg/dL (Normal) 52-Sfh-10774:03 PTH,INTACT Comments: [facility] [address] [place], [place], [address] PTH,Intact 34 pg/mL (Normal) Range: 14-72 16-Tmb-79201:03 Renal Profile Comments: [facility] [address] [place], [place], [address] CO2 26.0 mmol/L (Normal) Range: 21.0-32.0 CL 103 mmol/L (Normal) Range: 98-107 K 4.0 mmol/L (Normal) Range: 3.5-5.1 NA 138 mmol/L (Normal) Range: 136-145 PHOS 3.3 mg/dL (Normal) Range: 2.5-4.9 CA 8.9 mg/dL (Normal) Range: 8.5-10.1 ALB 3.5 g/dL (Normal) Range: 3.4-5.0 BUN/CRE 17.2 {RATIO} (Normal) Range: 10-20 EST GFR - AA 46 mL/min (Abnormal) Comments: GFR Calc EST GFR 38 mL/min (Abnormal) Comments: Non- GFR Calc CREAT,SERUM 1.45 mg/dL (Abnormal) Range: 0.55-1.02 Comments: The validity of the calculated GFR AND GFRAA in patients over70 years has not been determined. Clinical correlation isessential. BUN 25 mg/dL (Abnormal) Range: 7-18 GLU 109 mg/dL (Normal) Range: 70-110 61-Abp-14974:03 Vitamin D 1,25-Dihydroxy Comments: [facility] (refer to report for specific site)refer to report for address and phone number VITD [id number] 48.5 pg/mL (Normal) Range: 19.9-79.3 Comments: Performed at: [address] [id number] Director: Navdeep Medley MD, Phone: [phone] 26-Sje-093851:06 Metabolic Panel, Comprehensive Comments: PATIENT NOT FASTINGPERFORMED BY: [facility]CoAtlantic Rehabilitation InstituteMymntq0359 [facility] [id number] (27102) ALT (SGPT) 11 [iU]/L (Normal) Range: 0-32 AST (SGOT) 18 [iU]/L (Normal) Range: 0-40 Alkaline Phosphatase, S 61 [iU]/L (Normal) Range: 39-117 Bilirubin, Total 0.3 mg/dL (Normal) Range: 0.0-1.2 A/G Ratio 1.4 (Normal) Range: 1.2-2.2 Comments: Please note reference interval change Globulin, Total 3.3 g/dL (Normal) Range: 1.5-4.5 Albumin, Serum 4.5 g/dL (Normal) Range: 3.6-4.8 Protein, Total, Serum 7.8 g/dL (Normal) Range: 6.0-8.5 Calcium, Serum 9.7 mg/dL (Normal) Range: 8.7-10.3 Carbon Dioxide, Total 22 mmol/L (Normal) Range: 18-29 Chloride, Serum 94 mmol/L (Abnormal) Range: 96-106 Potassium, Serum 4.8 mmol/L (Normal) Range: 3.5-5.2 Sodium, Serum 135 mmol/L (Normal) Range: 134-144 BUN/Creatinine Ratio 12 (Normal) Range: 11-26 eGFR If Africn Am 53 mL/min/1.73 (Abnormal) eGFR If NonAfricn Am 46 mL/min/1.73 (Abnormal) Creatinine, Serum 1.22 mg/dL (Abnormal) Range: 0.57-1.00 BUN 15 mg/dL (Normal) Range: 8-27 Glucose, Serum 78 mg/dL (Normal) Range: 65-99 39-Zdz-723720:06 CBC, Platelets & Auto Diff Comments: PATIENT NOT FASTINGPERFORMED BY: [facility] Vmzkmt0028 [facility] [id number] (09261) Immature Grans (Abs) 0.0 {x10E3/uL} (Normal) Range: 0.0-0.1 Immature Granulocytes 0 % (Normal) Baso (Absolute) 0.0 {x10E3/uL} (Normal) Range: 0.0-0.2 Eos (Absolute) 0.1 {x10E3/uL} (Normal) Range: 0.0-0.4 Monocytes(Absolute) 1.0 {x10E3/uL} (Abnormal) Range: 0.1-0.9 Lymphs (Absolute) 2.5 {x10E3/uL} (Normal) Range: 0.7-3.1 Neutrophils (Absolute) 5.6 {x10E3/uL} (Normal) Range: 1.4-7.0 Basos 0 % (Normal) Eos 2 % (Normal) Monocytes 11 % (Normal) Lymphs 27 % (Normal) Neutrophils 60 % (Normal) Platelets 300 {x10E3/uL} (Normal) Range: 150-379 RDW 13.8 % (Normal) Range: 12.3-15.4 MCHC 34.7 g/dL (Normal) Range: 31.5-35.7 MCH 31.0 pg (Normal) Range: 26.6-33.0 MCV 89 fL (Normal) Range: 79-97 Hematocrit 41.2 % (Normal) Range: 34.0-46.6 Hemoglobin 14.3 g/dL (Normal) Range: 11.1-15.9 RBC 4.62 {x10E6/uL} (Normal) Range: 3.77-5.28 WBC 9.3 {x10E3/uL} (Normal) Range: 3.4-10.8 04-Iih-850424:06 TSH (53622) Comments: PATIENT NOT FASTINGPERFORMED BY: EMIL LabCoCareerStarter70 [facility] [id number] TSH 3.080 {uIU/mL} (Normal) Range: 0.450-4.500 75-Cqh-002174:56 HgA1C , Office (26648) HgA1C , Office 5.5 % (Normal) Range: 4.6 - 7.1 07-Wcw-915308:56 Blood Glucose , Office (24250) Blood Glucose , Office 81 (Normal) :09 LIPID PANEL (68858) Comments: PATIENT WAS FASTINGPERFORMED BY: [employer] LabCoSocrataTybopl2019 [facility] [id number] LDL/HDL Ratio 2.0 {ratio_units} (Normal) Range: 0.0-3.2 Comments: LDL/HDL Ratio Men Women 1/2 Avg.Risk 1.0 1.5 Av g.Risk 3.6 3.2 2X Avg.Risk 6.2 5.0 3X Avg.Risk 8.0 6.1 LDL Cholesterol Calc 106 mg/dL (Abnormal) Range: 0-99 VLDL Cholesterol Hillary 25 mg/dL (Normal) Range: 5-40 HDL Cholesterol 53 mg/dL (Normal) Triglycerides 125 mg/dL (Normal) Range: 0-149 Cholesterol, Total 184 mg/dL (Normal) Range: 100-199 31-Dec-20168:09 METABOLIC PANEL, COMPREHENSIVE Comments: PATIENT WAS FASTINGPERFORMED BY: LabCoAtl[facility] Rehabilitation InstituteNbhovr9615 [facility] [id number] (81080) ALT (SGPT) 15 [iU]/L (Normal) Range: 0-32 AST (SGOT) 22 [iU]/L (Normal) Range: 0-40 Alkaline Phosphatase, S 74 [iU]/L (Normal) Range: 39-117 Bilirubin, Total 0.4 mg/dL (Normal) Range: 0.0-1.2 A/G Ratio 1.2 (Normal) Range: 1.1-2.5 Comments: Effective January 11, 2017 the reference interval for A/G Ratio will be changing to: Age Male Female 0 - 7 d ays 1.1 - 2.3 1.1 - 2.3 8 - 30 days 1.2 - 2.8 1.2 - 2.8 1 - 6 months 1.3 - 3.6 1.3 - 3.6 7 months - 5 years 1.5 - 2.6 1.5 - 2.6 > 5 years 1.2 - 2.2 1.2 - 2.2 Globulin, Total 3.4 g/dL (Normal) Range: 1.5-4.5 Albumin, Serum 4.2 g/dL (Normal) Range: 3.6-4.8 Protein, Total, Serum 7.6 g/dL (Normal) Range: 6.0-8.5 Calcium, Serum 9.7 mg/dL (Normal) Range: 8.7-10.3 Carbon Dioxide, Total 26 mmol/L (Normal) Range: 18-29 Chloride, Serum 93 mmol/L (Abnormal) Range: 96-106 Potassium, Serum 3.6 mmol/L (Normal) Range: 3.5-5.2 Sodium, Serum 137 mmol/L (Normal) Range: 134-144 BUN/Creatinine Ratio 13 (Normal) Range: 11-26 eGFR If Africn Am 40 mL/min/1.73 (Abnormal) eGFR If NonAfricn Am 35 mL/min/1.73 (Abnormal) Creatinine, Serum 1.52 mg/dL (Abnormal) Range: 0.57-1.00 BUN 20 mg/dL (Normal) Range: 8-27 Glucose, Serum 104 mg/dL (Abnormal) Range: 65-99 22-Hgh-29088:04 METABOLIC PANEL, COMPREHENSIVE Comments: fax to Dr Henry; PATIENT WAS FASTINGPERFORMED BY: [facility] Wjltgu7256 [facility] [id number] (46059) ALT (SGPT) 16 [iU]/L (Normal) Range: 0-32 AST (SGOT) 15 [iU]/L (Normal) Range: 0-40 Alkaline Phosphatase, S 70 [iU]/L (Normal) Range: 39-117 Bilirubin, Total <0.2 mg/dL (Normal) Range: 0.0-1.2 A/G Ratio 1.2 (Normal) Range: 1.1-2.5 Globulin, Total 3.3 g/dL (Normal) Range: 1.5-4.5 Albumin, Serum 4.0 g/dL (Normal) Range: 3.6-4.8 Protein, Total, Serum 7.3 g/dL (Normal) Range: 6.0-8.5 Calcium, Serum 9.1 mg/dL (Normal) Range: 8.7-10.3 Carbon Dioxide, Total 23 mmol/L (Normal) Range: 18-29 Chloride, Serum 98 mmol/L (Normal) Range: 96-106 Comments: Please note reference interval change Potassium, Serum 4.2 mmol/L (Normal) Range: 3.5-5.2 Sodium, Serum 138 mmol/L (Normal) Range: 134-144 Comments: Please note reference interval change BUN/Creatinine Ratio 11 (Normal) Range: 11-26 eGFR If Africn Am 49 mL/min/1.73 (Abnormal) eGFR If NonAfricn Am 42 mL/min/1.73 (Abnormal) Creatinine, Serum 1.30 mg/dL (Abnormal) Range: 0.57-1.00 BUN 14 mg/dL (Normal) Range: 8-27 Glucose, Serum 101 mg/dL (Abnormal) Range: 65-99 :04 MICROALBUMIN: CREATININE RATIO Comments: PATIENT WAS FASTINGPERFORMED BY: [employer] [id number] CodeRyteCarolinas Continue[facility] [place] [id number] ([id number]) AND ([id number]) Microalb/Creat Ratio <6.3 {mg/g_creat} (Normal) Range: 0.0-30.0 Microalbumin, Urine <3.0 ug/mL (Normal) Creatinine, Urine 48.0 mg/dL (Normal) :04 HGB A1C ([id number]) Comments: PATIENT WAS FASTINGPERFORMED BY: [employer] [id number] [place] [id number] Hemoglobin A1c 5.7 % (Abnormal) Range: 4.8-5.6 Comments: . Pre-diabetes: 5.7 - 6.4 Diabetes: >6.4 Glycemic control for adults with diabetes: <7.0 :04 CALCIFEDIOL (05371) Comments: PATIENT WAS FASTINGPERFORMED BY: [email or web address] [id number] [facility] [place] [id number] Vitamin D, 25-Hydroxy 24.2 ng/mL (Abnormal) Range: 30.0-100.0 Comments: Vitamin D deficiency has been defined by the [place] [employer] and an Endocrine Society practice guideline as alevel of serum 25-OH vitamin D less than 20 ng/mL (1,2).The Endocrine Society went on to further define vitamin Dinsufficiency as a level between 21 and 29 ng/mL (2).1. IOM ([place] [employer]). 2010. Dietary reference intakes for calcium and D. [place]: The National Academies Press.2. Azael MF, Leslee NC, Hillary PHILLIPS, et al. Evaluation, treatment, and prevention of vitamin D deficiency: an Endocrine Society clinical practice guideline. JCEM. 2010; 96(7):1911-30. :04 TSH (THYROID STIMULATING Comments: PATIENT WAS FASTINGPERFORMED BY: [employer] [id number] [facility] HealthcareDublin [place] [id number] HORMONE) ([id number]) TSH 2.710 {uIU/mL} (Normal) Range: 0.450-4.500 :04 LIPID PANEL (90118) Comments: PATIENT WAS FASTINGPERFORMED BY: [employer] GroupAtlantic Rehabilitation [id number] [facility] [id number] LDL/HDL Ratio 1.7 {ratio_units} (Normal) Range: 0.0-3.2 Comments: LDL/HDL Ratio Men Women 1/2 Avg.Risk 1.0 1.5 Av g.Risk 3.6 3.2 2X Avg.Risk 6.2 5.0 3X Avg.Risk 8.0 6.1 LDL Cholesterol Calc 87 mg/dL (Normal) Range: 0-99 VLDL Cholesterol Hillary 47 mg/dL (Abnormal) Range: 5-40 HDL Cholesterol 50 mg/dL (Normal) Triglycerides 236 mg/dL (Abnormal) Range: 0-149 Cholesterol, Total 184 mg/dL (Normal) Range: 100-199 :04 CBC, PLATELETS & AUT DIFF Comments: PATIENT WAS FASTINGPERFORMED BY: [id number] [facility] [id number] ([id number]) Immature Grans (Abs) 0.0 {x10E3/uL} (Normal) Range: 0.0-0.1 Immature Granulocytes 0 % (Normal) Baso (Absolute) 0.1 {x10E3/uL} (Normal) Range: 0.0-0.2 Eos (Absolute) 0.6 {x10E3/uL} (Abnormal) Range: 0.0-0.4 Monocytes(Absolute) 1.1 {x10E3/uL} (Abnormal) Range: 0.1-0.9 Lymphs (Absolute) 2.1 {x10E3/uL} (Normal) Range: 0.7-3.1 Neutrophils (Absolute) 2.1 {x10E3/uL} (Normal) Range: 1.4-7.0 Basos 1 % (Normal) Eos 11 % (Normal) Monocytes 19 % (Normal) Lymphs 34 % (Normal) Neutrophils 35 % (Normal) Platelets 277 {x10E3/uL} (Normal) Range: 150-379 RDW 13.3 % (Normal) Range: 12.3-15.4 MCHC 33.2 g/dL (Normal) Range: 31.5-35.7 MCH 31.5 pg (Normal) Range: 26.6-33.0 MCV 95 fL (Normal) Range: 79-97 Hematocrit 39.5 % (Normal) Range: 34.0-46.6 Hemoglobin 13.1 g/dL (Normal) Range: 11.1-15.9 RBC 4.16 {x10E6/uL} (Normal) Range: 3.77-5.28 WBC 6.1 {x10E3/uL} (Normal) Range: 3.4-10.8 :28 ANCA Comments: Is Patient Fasting? [facility] (refer to report for specific site)refer to report for address and phone number Atypical pANCA 1:80 {titer} (Abnormal) Comments: The atypical pANCA pattern has been observed in asignificant percentage of patients with ulcerative colitis,primary sclerosing cholangitis and autoimmune hepatitis. PERINUCLEAR Ab <1:20 {titer} (Normal) Comments: The presence of positive fluorescence exhibiting P-ANCA orC-ANCA patterns alone is not specific for the diagnosis ofWegener's Granulomatosis (WG) or microscopic polyangiitis.Decisions about treatment sh ould not be based solely onANCA IFA results. The International ANCA Group Consensusrecommends follow up testing of positive sera with both MI-3 and MPO- ANCA enzyme immunoassays. As many as 5% serumsamp les are positive only by EIA. Ref. AM J Clin Dzoxdp9435;111:507-513. CYTOPLASMIC Ab <1:20 {titer} (Normal) :28 Anti-dsDNA Ab Comments: [facility] (refer to report for specific site)refer to report for address and phone number dsDNA AB <1 {IU/mL} (Normal) Range: 0-9 Comments: Negative <5 Equivocal 5 - 9 Positive >9Performed at: [address] [id number] D irector: Junior Valera PhD, Phone: [phone] :28 Complement C3 Comments: Is Patient Fasting? [facility] (refer to report for specific site)refer to report for address and phone number COMP C3 127 mg/dL (Normal) Range: 82-167 Comments: Performed at: CB - [facility] [address] [place], [place] [id number] Director: Junior Valera PhD, Phone: [phone] :28 Complement C4 Comments: Is Patient Fasting? [facility] (refer to report for specific site)refer to report for address and phone number COMP C4 31 mg/dL (Normal) Range: 14-44 :28 LEOPOLDO + Protein Elect, Serum Comments: Is Patient Fasting? [facility] (refer to report for specific site)refer to report for address and phone number NOTE: Comment (Normal) Comments: Protein electrophoresis scan will follow via computer,mail, or hide cooking operator delivery. LEOPOLDO RESULT,S Comment: (Normal) Comments: Presence of monoclonal protein is unclear at this time. Suggest repeat in 3 to 6 months if clinically indicated. A/G RATIO 0.9 (Normal) Range: 0.7-1.7 GLOBULIN, TOTAL 3.8 g/dL (Normal) Range: 2.2-3.9 M-SPIKE (Normal) Comments: Not Observed GAMMA GLOBULIN 1.4 g/dL (Normal) Range: 0.4-1.8 BETA GLOBULIN 1.3 g/dL (Normal) Range: 0.7-1.3 NSBUI-8-VWGY 0.9 g/dL (Normal) Range: 0.4-1.0 GRGSZ-4-YGEN 0.2 g/dL (Normal) Range: 0.0-0.4 ALBUMIN 3.4 g/dL (Normal) Range: 2.9-4.4 IMMUNOGL M 44 mg/dL (Normal) Range: 26-217 IMMUNO A 614 mg/dL (Abnormal) Range: 87-352 IMMUNO G 1353 mg/dL (Normal) Range: 700-1600 PROTEIN,TOTAL 7.2 g/dL (Normal) Range: 6.0-8.5 :28 Protein+Creatinine Ratio,Urine Comments: [facility] [address] [place], [place], [id number] PROT:CRE RATIO 128 {mg/g_CRE} (Normal) Range: 0-200 PROTEIN,UR.RAN. 6.5 mg/dL (Normal) UR CREAT 50.60 mg/dL (Normal) :46 RENAL FUNCTION PANEL (86308) Comments: PATIENT NOT FASTINGPERFORMED BY: [facility] [facility] [id number] Phosphorus, Serum 4.2 mg/dL (Normal) Range: 2.5-4.5 :46 PT (PROTHROMBIN TIME) (04959) Comments: PATIENT NOT FASTINGPERFORMED BY: [facility] [facility] [id number] Prothrombin Time 10.9 {sec} (Normal) Range: 9.1-12.0 INR 1.1 (Normal) Range: 0.8-1.2 Comments: Reference interval is for non-anticoagulated patients. . Suggested INR therapeutic range for Vitamin K anta gonist therapy: Standard Dose (moderate intensity therapeutic range): 2.0 - 3.0 Higher intensity therapeutic range 2.5 - 3.5 :46 METABOLIC PANEL, COMPREHENSIVE Comments: PATIENT NOT FASTINGPERFORMED BY: [facility] [facility] [id number] (28502) ALT (SGPT) 24 [iU]/L (Normal) Range: 0-32 AST (SGOT) 29 [iU]/L (Normal) Range: 0-40 Alkaline Phosphatase, S 60 [iU]/L (Normal) Range: 39-117 Bilirubin, Total 0.2 mg/dL (Normal) Range: 0.0-1.2 A/G Ratio 1.1 (Normal) Range: 1.1-2.5 Globulin, Total 3.4 g/dL (Normal) Range: 1.5-4.5 Albumin, Serum 3.9 g/dL (Normal) Range: 3.6-4.8 Protein, Total, Serum 7.3 g/dL (Normal) Range: 6.0-8.5 Calcium, Serum 9.1 mg/dL (Normal) Range: 8.7-10.3 Carbon Dioxide, Total 22 mmol/L (Normal) Range: 18-29 Chloride, Serum 98 mmol/L (Normal) Range: 97-108 Potassium, Serum 4.5 mmol/L (Normal) Range: 3.5-5.2 Sodium, Serum 139 mmol/L (Normal) Range: 134-144 BUN/Creatinine Ratio 13 (Normal) Range: 11-26 eGFR If Africn Am 43 mL/min/1.73 (Abnormal) eGFR If NonAfricn Am 38 mL/min/1.73 (Abnormal) Creatinine, Serum 1.44 mg/dL (Abnormal) Range: 0.57-1.00 BUN 18 mg/dL (Normal) Range: 8-27 Glucose, Serum 109 mg/dL (Abnormal) Range: 65-99 53-Jju-362398:46 CBC, PLATELETS & AUT DIFF Comments: PATIENT NOT FASTINGPERFORMED BY: [facility] [address]jhcx[address] [facility] [id number] Information: [id number] ([id number]) Immature Grans (Abs) 0.0 {x10E3/uL} (Normal) Range: 0.0-0.1 Immature Granulocytes 0 % (Normal) Baso (Absolute) 0.1 {x10E3/uL} (Normal) Range: 0.0-0.2 Eos (Absolute) 0.3 {x10E3/uL} (Normal) Range: 0.0-0.4 Monocytes(Absolute) 0.7 {x10E3/uL} (Normal) Range: 0.1-0.9 Lymphs (Absolute) 2.4 {x10E3/uL} (Normal) Range: 0.7-3.1 Neutrophils (Absolute) 3.8 {x10E3/uL} (Normal) Range: 1.4-7.0 Basos 1 % (Normal) Eos 5 % (Normal) Monocytes 9 % (Normal) Lymphs 32 % (Normal) Neutrophils 53 % (Normal) Platelets 236 {x10E3/uL} (Normal) Range: 150-379 RDW 13.9 % (Normal) Range: 12.3-15.4 MCHC 33.2 g/dL (Normal) Range: 31.5-35.7 MCH 30.9 pg (Normal) Range: 26.6-33.0 MCV 93 fL (Normal) Range: 79-97 Hematocrit 38.5 % (Normal) Range: 34.0-46.6 Hemoglobin 12.8 g/dL (Normal) Range: 11.1-15.9 RBC 4.14 {x10E6/uL} (Normal) Range: 3.77-5.28 WBC 7.3 {x10E3/uL} (Normal) Range: 3.4-10.8 :23 HgA1C , Office (10775) HgA1C , Office 5.4 % (Normal) Range: 4.6 - 7.1 :16 CBC-Complete Blood Cnt No Diff Comments: [facility] [address] [place], [address] MPV 8.8 fL (Normal) Range: 6.2-12.0 PLT 258 K/mm3 (Normal) Range: 150-450 RDW SD 49.1 fL (Abnormal) Range: 35.1-43.9 RDW CV 13.6 % (Normal) Range: 11.6-14.6 MCHC 31.7 {g/gl} (Abnormal) Range: 32-36 MCH 30.9 pg (Normal) Range: 27.0-32.0 MCV 97.5 fL (Normal) Range: 81-99 HCT 38.5 % (Normal) Range: 37-47 HGB 12.2 g/dL (Normal) Range: 12.0-15.0 RBC 3.95 {M/mm3} (Abnormal) Range: 4.2-5.4 WBC 7.7 K/mm3 (Normal) Range: 4.4-11.0 :16 Serum Creatinine AND GFR Comments: [facility] [address] [place], [place], [id number] Estimated CRCL 27.75 ml/min (Normal) EST GFR - AA 37 mL/min (Abnormal) Comments: GFR Calc EST GFR 30 mL/min (Abnormal) Comments: Non- GFR Calc CREAT,SERUM 1.77 mg/dL (Abnormal) Range: 0.55-1.20 Comments: The validity of the calculated GFR AND GFRAA in patients over70 years has not been determined. Clinical correlation isessential. 62-Vdt-928455:15 Bedside Glucose Comments: [facility] LaboratoryPoint of [address] [place], [place] [address] BEDSIDE GLU 128 mg/dL (Abnormal) Range: 70-110 Comments: Policy and Physicians Orders followedMANAGEMENT OF PATIENT CARE PER NURSING PROTOCOL HYSTERECTOMY SPECIMEN See Note (Normal) Comments: [facility] [address] [place], [address] :39 Comments: Patient: ELIZABETH TORO : 1950 (65/F) Acct Num: [id number] Phys: Gonsalo PROCTOR,Gm Unit Num: [id number] Loc: MS1 [id number] Specimen: [id number] Received: 06/22/161336 Spec Ty pe: HYSTERECT TISSUES TISSUES: COMMENT Please make reference to previous specimen ([id number]) endometrial biopsy with diagnosis of consistent with atrophic endometrium and ([id number]) e ndometrium andpolyp, excision with diagnosis of benign endometrial polyp with simple cystic hyperplasia without atypia and scant strips of benign superficial endometrium. GROSS DESCRIPTION Received is one container labeled with the patient name and designated uterus, bilateral fallopian tubes and bilateral ovaries. The specimen consists of a hysterectomy specimen consisting of uterus with cerv ix and attached right fallopian tube and ovary and detached left fallopian tube and ovary. The uteruswith cervix weighs 22 gm and measures 6 x 3 x 2 cm. A subserosal nodule is noted anteriorly. The s erosal surface is man, glistening. The ectocervical mucosa is unremarkable. The external os is slit-like in contour. The endocervical canal measures 2 cm in length and the endocervical mucosa is man, glistening and unremarkable. The triangular endometrial cavity measures 2.5 cm in length and 1 cm in diameter. The endometrium is man, glistening without any mass lesion and measures <0.1 cm in th ickness. Sections of the uterine wall reveal a subserosal nodular mass measuring 1.5 cm in greatest dimension. Sections of these mass reveal man whorled cut surfaces without areas of hemorrhage, necro sis or cystic degeneration. The uninvolved uterine wall measures up to 1 cm in thickness. The right fallopian tube measures 2 cm in length and 0.3 cm in diameter. The fimbrial end is identified. It is interrupted in the middle consistent with previous tubal occlusion. Sections reveal unremarkable cut surfaces. The right ovary measures 1.2 x 0.6 x 0.6 cm. No tubal ovarian adhesions are noted. Se ctions reveal unremarkable cut surfaces. Only the distal portion of the left fallopian tube is present and measures 2 cm in length and 0.3 cm in diameter. The fimbrial end is identified. No tubal ovar isidro adhesions are noted. The left ovary is similar appearance to right and measures 1.2 x 0.7 x 0.6 cm. Occupational Therapist Home Based sections are submitted inten cassettes as follows: 1 - anterior cervix, 2 - poste rior cervix, 3-5 - anterior uterine wall including endometrium and portion of nodular mass, 6 AND 7 -posterior uterine wall (entire endometrium is submitted), 8 - rest of the nodular mass (entire nodu lar mass is submitted), 9 - right fallopian tube and ovary, 10 - left fallopian tube and ovary. / TONG:stormy 06/22/16 TC:1 CPT:60313 HEADER OPERATION: Lap robotic hysterectomy, BSO PRE-OP DIAGNOSI S: Simple endometrial hyperplasia, postmenopausal bleeding TISSUE SUBMITTED: Uterus, bilateral fallopian tubes and ovaries MICROSCOPIC DESCRIPTION Slides are reviewed. MICROSCOPIC DIAGNOSIS Uterus, bilateral fallopian tubes and ovaries, hysterectomy and bilateral salpingectomy: Cervix - no pathologic diagnosis. Endometrium - simple atrophic endometrium. Myometrium - sub serosal leiomyoma (1.5 cm in greatest dimension). - Focal adenomyosis. Bilateral fallopian tubes - no pathologic diagnosis. Bilateral ovaries - no pathologic diagnosis. Ernesto fung 06/23/16 Signed Sivakumar Mallory 06/23/16 <signature on file> 40-Yih-52595:31 Bedside Glucose Comments: [facility] LaboratoryPoint of [address] [place] [address] BEDSIDE GLU 89 mg/dL (Normal) Range: 70-110 Comments: Physician Notified VBRBMANAGEMENT OF PATIENT CARE PER NURSING PROTOCOL 25-Gpl-951303:31 CBC-Complete Blood Cnt No Diff Comments: [facility] [address] [place], [place], [address] MPV 10.1 fL (Normal) Range: 6.2-12.0 PLT 212 K/mm3 (Normal) Range: 150-450 RDW SD 43.4 fL (Normal) Range: 35.1-43.9 RDW CV 13.0 % (Normal) Range: 11.6-14.6 MCHC 33.4 {g/gl} (Normal) Range: 32-36 MCH 31.3 pg (Normal) Range: 27.0-32.0 MCV 93.8 fL (Normal) Range: 81-99 HCT 40.7 % (Normal) Range: 37-47 HGB 13.6 g/dL (Normal) Range: 12.0-15.0 RBC 4.34 {M/mm3} (Normal) Range: 4.2-5.4 WBC 7.6 K/mm3 (Normal) Range: 4.4-11.0 08-Sfc-337112:31 Comprehensive Metabolic Profil Comments: [facility] [address] [place], [address] GAP 8 (Normal) Range: 5-15 CO2 24.0 mmol/L (Normal) Range: 21.0-32.0 CL 105 mmol/L (Normal) Range: 98-107 K 4.0 mmol/L (Normal) Range: 3.5-5.1 NA 137 mmol/L (Normal) Range: 136-145 T BILI 0.20 mg/dL (Normal) Range: 0.20-1.00 ALT 16 U/L (Normal) Range: 12-78 ALK P 65 U/L (Normal) Range: 50-136 AST 20 U/L (Normal) Range: 15-37 CA 9.1 mg/dL (Normal) Range: 8.5-10.1 A/G 0.8 {RATIO} (Abnormal) Range: 0.9-2.4 GLOB 4.8 g/dL (Abnormal) Range: 2.3-3.5 ALB 3.7 g/dL (Normal) Range: 3.4-5.0 T PROT 8.5 g/dL (Abnormal) Range: 6.4-8.2 BUN/CRE 7.4 {RATIO} (Abnormal) Range: 10-20 EST GFR - AA 40 mL/min (Abnormal) Comments: GFR Calc EST GFR 33 mL/min (Abnormal) Comments: Non- GFR Calc CREAT,SERUM 1.63 mg/dL (Abnormal) Range: 0.55-1.20 Comments: The validity of the calculated GFR AND GFRAA in patients over70 years has not been determined. Clinical correlation isessential. BUN 12 mg/dL (Normal) Range: 7-18 GLU 87 mg/dL (Normal) Range: 70-110 09-Gta-075457:31 Hemoglobin A1c Comments: [facility] [address] [place], [address] HGB A1C 5.6 % (Normal) Range: 4.2-6.3 :31 Partial Thromboplast Time Comments: [facility] [address] [place], [address] PTT 27.7 s (Normal) Range: 24.1-36.2 :31 Prothrombin Time w/INR Comments: [facility] [address] [place], [address] INR 1.1 (Normal) PROTIME 13.4 s (Normal) Range: 11.7-14.9 76-Tep-934027:31 Thyroid Stim Hormone (TSH) Comments: [facility] [address] [place], [address] TSH 2.46 {uIU/mL} (Normal) Range: 0.358-3.74 11-Uod-687898:31 Type AND Screen Comments: Surgery Date: 06/22/16Date of Last Transfusion (if within last 3 months) NHx of Preganancy in last 3 Months NoEver experience any problems with transfusion(s)? NHx of Transfusion in last 3 Months N Reason for Type AND Screen/Red Cells: SURGERYTime: 0600SURGICAL PROCEDURE: [facility] [address] [place], [address] Antibody Screen NEGATIVE (Normal) BLOOD TYPE GEL A NEGATIVE (Normal) 57-Key-[id number]:28 Comprehensive Metabolic Profil Comments: Order Date: 06/10/16Order Date: 06/10/16[facility] [address] [place], [address] GAP 5 (Normal) Range: 5-15 CO2 28.0 mmol/L (Normal) Range: 21.0-32.0 CL 106 mmol/L (Normal) Range: 98-107 K 4.4 mmol/L (Normal) Range: 3.5-5.1 NA 139 mmol/L (Normal) Range: 136-145 T BILI 0.20 mg/dL (Normal) Range: 0.20-1.00 ALT 16 U/L (Normal) Range: 12-78 ALK P 66 U/L (Normal) Range: 50-136 AST 16 U/L (Normal) Range: 15-37 CA 9.0 mg/dL (Normal) Range: 8.5-10.1 A/G 0.8 {RATIO} (Abnormal) Range: 0.9-2.4 GLOB 4.3 g/dL (Abnormal) Range: 2.3-3.5 ALB 3.5 g/dL (Normal) Range: 3.4-5.0 T PROT 7.8 g/dL (Normal) Range: 6.4-8.2 BUN/CRE 9.8 {RATIO} (Abnormal) Range: 10-20 EST GFR - AA 47 mL/min (Abnormal) Comments: GFR Calc EST GFR 39 mL/min (Abnormal) Comments: Non- GFR Calc CREAT,SERUM 1.43 mg/dL (Abnormal) Range: 0.55-1.20 Comments: The validity of the calculated GFR AND GFRAA in patients over70 years has not been determined. Clinical correlation isessential. BUN 14 mg/dL (Normal) Range: 7-18 GLU 79 mg/dL (Normal) Range: 70-110 78-Diw-783615:58 CBC W/Diff, Automated Comments: [facility] [address] [place], [place], [id number] Absolute Lymph 2.98 {X10_3/ul} (Normal) Range: 0.83-4.51 Absolute Neut 4.1 {X10_3/uL} (Normal) Range: 2.0-7.7 IM GRAN % 0.100 % (Normal) Range: 0.0-0.9 Comments: IG% - Immature Granulocytes (promyelocytes, myelocytes andmetamyelocytes) > 1% indicates that a LEFT SHIFT is Present. BASO% 0.7 % (Normal) Range: 0-1 EO% 3.9 % (Normal) Range: 0-5 MONO% 14.1 % (Abnormal) Range: 0-10 LY% 34.2 % (Normal) Range: 19-41 NEUT% 47.0 % (Normal) Range: 47-70 MPV 10.1 fL (Normal) Range: 6.2-12.0 PLT 225 K/mm3 (Normal) Range: 150-450 RDW SD 42.0 fL (Normal) Range: 35.1-43.9 RDW CV 12.7 % (Normal) Range: 11.6-14.6 MCHC 34.4 {g/gl} (Normal) Range: 32-36 MCH 31.4 pg (Normal) Range: 27.0-32.0 MCV 91.3 fL (Normal) Range: 81-99 HCT 40.7 % (Normal) Range: 37-47 HGB 14.0 g/dL (Normal) Range: 12.0-15.0 RBC 4.46 {M/mm3} (Normal) Range: 4.2-5.4 WBC 8.7 K/mm3 (Normal) Range: 4.4-11.0 09-Ufe-845521:58 Comprehensive Metabolic Profil Comments: Is Patient Taking Vitamins or Folic Acid Supplements? [facility] [address] [facility]. [place], [place], [id number] GAP 8 (Normal) Range: 5-15 CO2 29.0 mmol/L (Normal) Range: 21.0-32.0 CL 95 mmol/L (Abnormal) Range: 98-107 K 3.3 mmol/L (Abnormal) Range: 3.5-5.1 NA 132 mmol/L (Abnormal) Range: 136-145 T BILI 0.40 mg/dL (Normal) Range: 0.20-1.00 ALT 16 U/L (Normal) Range: 12-78 ALK P 72 U/L (Normal) Range: 50-136 AST 21 U/L (Normal) Range: 15-37 CA 8.7 mg/dL (Normal) Range: 8.5-10.1 A/G 0.9 {RATIO} (Normal) Range: 0.9-2.4 GLOB 4.5 g/dL (Abnormal) Range: 2.3-3.5 ALB 3.9 g/dL (Normal) Range: 3.4-5.0 T PROT 8.4 g/dL (Abnormal) Range: 6.4-8.2 BUN/CRE 12.6 {RATIO} (Normal) Range: 10-20 EST GFR - AA 37 mL/min (Abnormal) Comments: GFR Calc EST GFR 31 mL/min (Abnormal) Comments: Non- GFR Calc CREAT,SERUM 1.74 mg/dL (Abnormal) Range: 0.55-1.20 Comments: The validity of the calculated GFR AND GFRAA in patients over70 years has not been determined. Clinical correlation isessential. BUN 22 mg/dL (Abnormal) Range: 7-18 GLU 95 mg/dL (Normal) Range: 70-110 :58 Erythrocyte Sed Rate Comments: [facility] [address] [place], [place], [address] SED RATE 25 mm/h (Normal) Range: 0-30 29-Izm-857232:58 Folates, (Folic Acid) Comments: Is Patient Taking Vitamins or Folic Acid Supplements? [facility] [address] [place], [place], [id number] FOLATES 9.60 ng/mL (Normal) Range: 3.1-17.5 73-Brl-515128:58 Thyroid Stim Hormone (TSH) Comments: Is Patient Taking Vitamins or Folic Acid Supplements? [facility] [address] [place], [address] TSH 2.58 {uIU/mL} (Normal) Range: 0.358-3.74 18-Wby-563061:58 Vitamin B12 543 pg/mL (Normal) Comments: [facility] [address] [place], [place], [id number] Range: 211-911 82-Ryn-886730:07 Urinalysis, Office (29331) UA - LEUKOCYTE ESTERASE Trace (Normal) UA - NITRITE Negative (Normal) URINE UROBILINGN SHARIFA TIMED Normal mg/dL (Normal) UA - PROTEIN Negative mg/dL (Normal) UA - PH 6.5 (Normal) UA - BLOOD Hemolyzed Trace (Normal) UA - SPECIFIC GRAVITY 1.005 (Normal) UA - KETONES Negative mg/dL (Normal) UA - BILIRUBIN Negative (Normal) UA - GLUCOSE Negative (Normal) 75-Lvv-072973:04 URINE VERÓNICA CULTURE-SHARIFA COL Comments: PATIENT NOT FASTINGPERFORMED BY: [facility] [address] [place] [id number] Information: [facility] [id number] COUNT (29033) Antimicrobial MIHEAD (Normal) Comments: S = Susceptible; I = Intermediate; R = Resistant P = Positive; N = Negative MICS are expressed in micrograms per mL Antibiotic RSLT#1 RSLT#2 RS Susceptibility LT#3 RSLT#4Amoxicillin/Clavulanic Acid SAmpicillin SCefepime SCeftriaxone SCefuroxime SCephalothin SCiprofloxacin SErtapenem SGentamicin SImipenem SLevofloxacin SNitrofurantoin SPipera cillin STetracycline STobramycin STrimethoprim/Sulfa S Result 1 Escherichia coli Comments: Greater than 100,000 colony forming units per mL (Abnormal) Urine Final report Culture,Comprehensive (Abnormal) EGD ([facility]) See Note (Normal) Comments: [facility] [address] [place], [address]:04 Comments: Patient: ELIZABETH TORO : 1950 (65/F) Acct Num: [id number] Phys: Junior Pena Unit Num: [id number] Loc: LABSPEC Specimen: [id number] Received: 04/21/16 - 1638 Spec Type: EGD BIOPSY TISSUES TISSUES: COMMENT Increased number of eosinophils consistent with eosinophilic esophagitis are notseen. GROSS DESCRIPTION Received is one container labeled wit h the patient name and designated esophageal biopsy. The specimen consists of multiple irregular fragments of light man soft tissue that in aggregate measure 1 x 0.3 x 0.1 cm. The specimen is totall y submitted in one cassette. / TONG:stormy 04/22/16 TC:3 CPT:87443 HEADER OPERATION: EGD with biopsy PRE-OP DIAGNOSIS: Dysphagia TISSUE SUBMITTED: Esophageal biopsy, R/O EE MICROSCOPIC DESCRIP TION Slides are reviewed. MICROSCOPIC DIAGNOSIS Esophageal biopsy: Fragments of squamous epithelium with mild chronic inflammation. See comment. SJ:stormy 04/23/16 Signed Sivakumar Mallory 04/23/16 <signature on file> CERVICAL See Note (Normal) Comments: [facility] [address] [place], [address]:15 Comments: Patient: ELIZABETH TORO : 1950 (65/F) Acct Num: [id number] Phys: Gonsalo PROCTOR,[facility] Unit Num: [id number] Loc: [facility] Specimen: [id number] Received: 04/13/161335 Spec Type: CER V TISSUES TISSUES: GROSS DESCRIPTION A - Received is one container labeled with the patient name and designated ECC. The specimen consists of light man mucoid material aggregating to 1 x 0.2 x less than 0.1 cm. The specimen is totally submitted in one cassette. B - Received is one container labeled with the patient name and designated endometrial curettings and polyp. The specimen consists of multiple irregularfragments of dark red soft tissue measuring in aggregate 2 x 1 x 0.2 cm. The specimen is totally submitted in one cassette. / AM: 04/13/16 TC:5 CPT: 75363 x 2 HEADER OPERATION: Hysteroscopy, diagnostic, D AND C PRE-OP DIAGNOSIS: Postmenopausal bleeding TISSUE SUBMITTED: A - Endocervical curettings, B - Endometrial curettings and polyp [facility] DES[facility] Slides are reviewed. MICROSCOPIC DIAGNOSIS A. Endocervix, curettings: Strips of benign superficial endocervix. Rare strips of benign superficial ectocervix. B. Endom etrium and polyp, excision: Benign endometrial polyp with simple cystic hyperplasia without atypia. Scant strips of benign superficial endometrium. AM: 04/14/16 Signed Ras Easley 04/14/16 <signature on file> 84-Xrq-60074:04 Bedside Glucose Comments: [facility] Laboratory[facility] of [address] [place] [address] BEDSIDE GLU 98 mg/dL (Normal) Range: 70-110 Comments: No Action RequiredMANAGEMENT OF PATIENT CARE PER NURSING PROTOCOL :08 CBC-Complete Blood Cnt No Diff Comments: [facility] [address] [place], [address] MPV 9.4 fL (Normal) Range: 6.2-12.0 PLT 385 K/mm3 (Normal) Range: 150-450 RDW SD 43.4 fL (Normal) Range: 35.1-43.9 RDW CV 13.1 % (Normal) Range: 11.6-14.6 MCHC 32.9 {g/gl} (Normal) Range: 32-36 MCH 31.5 pg (Normal) Range: 27.0-32.0 MCV 95.7 fL (Normal) Range: 81-99 HCT 40.4 % (Normal) Range: 37-47 HGB 13.3 g/dL (Normal) Range: 12.0-15.0 RBC 4.22 {M/mm3} (Normal) Range: 4.2-5.4 WBC 7.1 K/mm3 (Normal) Range: 4.4-11.0 :08 Comprehensive Metabolic Profil Comments: [facility] [id number] [place], [address] GAP 8 (Normal) Range: 5-15 CO2 24.0 mmol/L (Normal) Range: 21.0-32.0 CL 107 mmol/L (Normal) Range: 98-107 K 4.4 mmol/L (Normal) Range: 3.5-5.1 NA 139 mmol/L (Normal) Range: 136-145 T BILI 0.20 mg/dL (Normal) Range: 0.20-1.00 ALT 17 U/L (Normal) Range: 12-78 ALK P 75 U/L (Normal) Range: 50-136 AST 16 U/L (Normal) Range: 15-37 CA 8.6 mg/dL (Normal) Range: 8.5-10.1 A/G 0.7 {RATIO} (Abnormal) Range: 0.9-2.4 GLOB 4.7 g/dL (Abnormal) Range: 2.3-3.5 ALB 3.3 g/dL (Abnormal) Range: 3.4-5.0 T PROT 8.0 g/dL (Normal) Range: 6.4-8.2 BUN/CRE 10.4 {RATIO} (Normal) Range: 10-20 EST GFR - AA 51 mL/min (Abnormal) Comments: GFR Calc EST GFR 42 mL/min (Abnormal) Comments: Non- GFR Calc CREAT,SERUM 1.34 mg/dL (Abnormal) Range: 0.55-1.20 Comments: The validity of the calculated GFR AND GFRAA in patients over70 years has not been determined. Clinical correlation isessential. BUN 14 mg/dL (Normal) Range: 7-18 GLU 99 mg/dL (Normal) Range: 70-110 :08 Partial Thromboplast Time Comments: [facility] [address] [place], [address] PTT 29.8 s (Normal) Range: 24.1-36.2 :08 Prothrombin Time w/INR Comments: [facility] [address] [place], [address] INR 1.1 (Normal) PROTIME 13.6 s (Normal) Range: 11.7-14.9 :08 Type AND Screen Comments: Surgery Date: 04/13/16Date of Last Transfusion (if within last 3 months) NHx of Preganancy in last 3 Months NoEver experience any problems with transfusion(s)? NHx of Transfusion in last 3 Months N Reason for Type AND Screen/Red Cells: SURGERYTime: 1015SURGICAL PROCEDURE: [facility] [address] [place], [address] Antibody Screen NEGATIVE (Normal) BLOOD TYPE GEL A NEGATIVE (Normal) ENDOMETRIAL See Note (Normal) Comments: [facility] [address] [place], [address] 6:00 BX/CURETTINGS Comments: Patient: ELIZABETH TORO : 1950 (65/F) Acct Num: [id number] Phys: Gonsalo PROCTOR,Formerly [facility] Unit Num: [id number] Loc: LABSPEC Specimen: [id number] Received: 03/26/16 - 1600 Spec Type: ENDOM BX/C TISSUES TISSUES: COMMENT Correlation with clinical findings and appropriate follow up are necessary. GROSS DESCRIPTION Received is one container labeled with the pat ient name and designated endometrial biopsy. The specimen consists of multiple irregular and elongatedfragments of light man soft tissue that in aggregate measure 2 x 1.5 x 0.2 cm. The specimen is t otally submitted in one cassette. / AM:stormy 03/27/16 TC:4 CPT:46256 HEADER OPERATION: Endometrial biopsy PRE-OP DIAGNOSIS: N95.0 TISSUE SUBMITTED: EMB MICROSCOPIC DESCRIPTION Slides are r eviewed. MICROSCOPIC DIAGNOSIS Endometrial biopsy: Scant strips of benign endometrial epithelium, consistent with atrophic endometrium. Fragments of benign endocervical epithelium and mucous. SJ:stormy 03/31/16 Signed Sivakumar Mallory 03/31/16 <signature on file> 22-Kwc-959114:00 PAP I-G w/ Reflex to HR Comments: CYTOLOGY INFORMATION:- CLINICAL INFORMATION: POSTMENOPAUSAL- DATE LMP/MENOPAUSE: MENOPAUSE- COLLECTION VIAL: Thin Prep Vial- PHARMACY TECHNICIAN ASSISTANT SOURCE: CERVICAL/ENDOCERVICAL- COLLECTION TECHNIQUE: BRUSH/ SPATULASpeci HPV men Comment: [id number] Comment: No. of containers..01 CYTYC Thin Prep VialLabCorp (refer to report for specific site)refer to report for address and phone number HPV RFLX Comment (Normal) Comments: The HPV DNA reflex criteria were not met with this specimenresult therefore, no HPV testing was performed.Performed at: [address] [id number] Director: Annamaria Menezes MD, Phone: [phone] PAPSMR Comment (Normal) Comments: The Pap smear is a screening test designed to aid in thedetection of premalignant and malignant conditions of theuterine cervix. It is not a diagnostic procedure andshould not be used as the sole means of detecting cervicalcancer. Both false-positive and false-negative reports dooccur. COMM . (Normal) TEST METHOD Comment (Normal) Comments: This liquid based ThinPrep(R) pap test was screened withthe use of an image guided system. PERFORM Comment (Normal) Comments: Adeline Singleton, Potato Loader (ASCP) ADEQ Comment (Normal) Comments: Satisfactory for evaluation. DIAGN Comment (Normal) Comments: NEGATIVE FOR INTRAEPITHELIAL LESION AND MALIGNANCY. 90-Kgg-33901:20 Urinalysis, Complete Comments: How was Urine Obtained? WOOD BOX MAKER TO SPECIFYAcmc Healthcare System Glenbeigh [address] [place], [address] MUCUS, URINE 0 SEEN {/hpf} (Normal) BACTERIA 0 SEEN {/hpf} (Normal) SQUAM EPI 0 SEEN {/hpf} (Normal) Range: 5-10 RBC-UA 0 SEEN {/hpf} (Normal) Range: 0-5 WBC 0-5 SEEN {/hpf} (Normal) Range: 0-5 LEUK ESTERASE 25 /ul (Abnormal) OCCULT BLOOD-UR 25 /ul (Abnormal) NITRITE UR Negative (Normal) UROBILI Normal mg/dL (Normal) PROT DIPSTX Negative mg/dL (Normal) pH UR 6.0 (Normal) Range: 5.0 - 8.0 SP.GR. DIPSTX 1.015 (Normal) Range: 1.002-1.030 KETONE UR Negative mg/dL (Normal) BILIRUBIN URINE Negative mg/dL (Normal) GLUCOSE, UR Normal mg/dL (Normal) CLARITY Clear (Normal) COLOR Straw (Normal) 85-Ngx-317718:50 Basic Metabolic Profile (BMP) Comments: [facility] [address] [place] [place], [address] GAP 7 (Normal) Range: 5-15 CO2 26.0 mmol/L (Normal) Range: 21.0-32.0 CL 107 mmol/L (Normal) Range: 98-107 K 3.5 mmol/L (Normal) Range: 3.5-5.1 NA 140 mmol/L (Normal) Range: 136-145 CA 8.7 mg/dL (Normal) Range: 8.5-10.1 BUN/CRE 10.4 {RATIO} (Normal) Range: 10-20 Estimated CRCL 34.92 ml/min (Normal) EST GFR - AA 50 mL/min (Abnormal) Comments: GFR Calc EST GFR 42 mL/min (Abnormal) Comments: Non- GFR Calc CREAT,SERUM 1.35 mg/dL (Abnormal) Range: 0.55-1.20 Comments: The validity of the calculated GFR AND GFRAA in patients over70 years has not been determined. Clinical correlation isessential. BUN 14 mg/dL (Normal) Range: 7-18 GLU 111 mg/dL (Abnormal) Range: 70-110 Comments: Fasting Glucose result from 110 to <126 mg/dLsuggests IMPAIRED HOMEOSTASIS per A.D.A. criteria. 40-Xrc-771654:50 CBC W/Diff, Automated Comments: [facility] [address] [place], [address] Absolute Lymph 3.53 {X10_3/ul} (Normal) Range: 0.83-4.51 Absolute Neut 4.6 {X10_3/uL} (Normal) Range: 2.0-7.7 IM GRAN % 0.700 % (Normal) Range: 0.0-0.9 Comments: IG% - Immature Granulocytes (promyelocytes, myelocytes andmetamyelocytes) > 1% indicates that a LEFT SHIFT is Present. BASO% 0.6 % (Normal) Range: 0-1 EO% 5.0 % (Normal) Range: 0-5 MONO% 13.5 % (Abnormal) Range: 0-10 LY% 35.0 % (Normal) Range: 19-41 NEUT% 45.2 % (Abnormal) Range: 47-70 MPV 8.9 fL (Normal) Range: 6.2-12.0 PLT 344 K/mm3 (Normal) Range: 150-450 RDW SD 43.6 fL (Normal) Range: 35.1-43.9 RDW CV 13.1 % (Normal) Range: 11.6-14.6 MCHC 33.1 {g/gl} (Normal) Range: 32-36 MCH 31.2 pg (Normal) Range: 27.0-32.0 MCV 94.4 fL (Normal) Range: 81-99 HCT 40.2 % (Normal) Range: 37-47 HGB 13.3 g/dL (Normal) Range: 12.0-15.0 RBC 4.26 {M/mm3} (Normal) Range: 4.2-5.4 WBC 10.1 K/mm3 (Normal) Range: 4.4-11.0 :02 Rapid Flu (57595 x 2) Influenza A Ag negative (Normal) 1-Pnv-365309:31 SJOGREN ANTIBOIDIES Comments: PATIENT NOT FASTINGPERFORMED BY: [facility]CoAtl[facility] Rehabilitation InstituteGqopsx2782 [facility] [id number] Information: [id number] (ANTI-SS-A/ANTI-SS-B) (83335) Sjogren's Anti-SS-B <0.2 {AI} (Normal) Range: 0.0-0.9 Sjogren's Anti-SS-A <0.2 {AI} (Normal) Range: 0.0-0.9 :28 Rapid Strep Test, Office (65668) Rapid Strep Test, Office Negative (Normal) 9-Dzh-157009:37 Throat Culture (80856) Comments: PATIENT NOT FASTINGPERFORMED BY: [facility]Asc[facility]6370 [facility] [id number] Information: SRC:THRT [id number] Result 1 BETAGB (Abnormal) Comments: Beta hemolytic Streptococcus, group BLight growthPenicillin and ampicillin are drugs of choice for treatment ofbeta- hemolytic streptococcal infections. Susceptibility testing ofpenicillins and other bet a-lactam agents approved by the FDA fortreatment of beta-hemolytic streptococcal infections need not beperformed routinely because nonsusceptible isolates are extremelyrare in any beta-hemolytic strepto coccus and have not been reportedfor Streptococcus pyogenes (group A). (CLSI 2011) Upper Respiratory Culture Final report (Abnormal) 6-Yac-423985:45 Basic Metabolic Profile (BMP) Comments: 'TROP' Serial specimen #1, #2, #3, or #4: 1[facility] [address] [place], [address] GAP 9 (Normal) Range: 5-15 CO2 23.0 mmol/L (Normal) Range: 21.0-32.0 CL 108 mmol/L (Abnormal) Range: 98-107 K 3.9 mmol/L (Normal) Range: 3.5-5.1 NA 140 mmol/L (Normal) Range: 136-145 CA 8.7 mg/dL (Normal) Range: 8.5-10.1 BUN/CRE 8.1 {RATIO} (Abnormal) Range: 10-20 Estimated CRCL 31.85 ml/min (Normal) EST GFR - AA 45 mL/min (Abnormal) Comments: GFR Calc EST GFR 37 mL/min (Abnormal) Comments: Non- GFR Calc CREAT,SERUM 1.48 mg/dL (Abnormal) Range: 0.55-1.20 Comments: The validity of the calculated GFR AND GFRAA in patients over70 years has not been determined. Clinical correlation isessential. BUN 12 mg/dL (Normal) Range: 7-18 GLU 92 mg/dL (Normal) Range: 70-110 8-Ftk-466295:45 CBC W/Diff, Automated Comments: [facility] [address] [place], [place], [address] Absolute Lymph 2.03 {X10_3/ul} (Normal) Range: 0.83-4.51 Absolute Neut 2.4 {X10_3/uL} (Normal) Range: 2.0-7.7 IM GRAN % 0.200 % (Normal) Range: 0.0-0.9 Comments: IG% - Immature Granulocytes (promyelocytes, myelocytes andmetamyelocytes) > 1% indicates that a LEFT SHIFT is Present. BASO% 0.8 % (Normal) Range: 0-1 EO% 3.8 % (Normal) Range: 0-5 MONO% 21.0 % (Abnormal) Range: 0-10 LY% 33.8 % (Normal) Range: 19-41 NEUT% 40.4 % (Abnormal) Range: 47-70 MPV 8.9 fL (Normal) Range: 6.2-12.0 PLT 259 K/mm3 (Normal) Range: 150-450 RDW SD 44.2 fL (Abnormal) Range: 35.1-43.9 RDW CV 12.8 % (Normal) Range: 11.6-14.6 MCHC 33.3 {g/gl} (Normal) Range: 32-36 MCH 31.3 pg (Normal) Range: 27.0-32.0 MCV 94.2 fL (Normal) Range: 81-99 HCT 42.4 % (Normal) Range: 37-47 HGB 14.1 g/dL (Normal) Range: 12.0-15.0 RBC 4.50 {M/mm3} (Normal) Range: 4.2-5.4 WBC 6.0 K/mm3 (Normal) Range: 4.4-11.0 :45 Thyroid Stim Hormone (TSH) Comments: 'TROP' Serial specimen #1, #2, #3, or #4: [address] [place] [address] [address] [facility] [place], [address] TSH 1.50 {uIU/mL} (Normal) Range: 0.358-3.74 :45 Troponin-I Comments: 'TROP' Serial specimen #1, #2, #3, or #4: [address] [place] [address] [address] [place], [place], [address] TROPONIN-I < 0.02 ng/mL (Normal) Comments: TROPONIN-I EXPECTED VALUES <0.05 NEGATIVE 0.06 - 0.59 AT RISK OF FL > OR = 0.60 SUGGEST FL 71-Nzm-00422:53 Pap IG (Image Comments: Source.............Cervical;EndocervicalNo. of containers..01 CYTYC Thin Prep VialPATIENT NOT FASTINGPERFORMED BY: =G [facility] [address] [id number] BY: WB L Guided) [facility] [address] [id number] Note: PAPSMR (Normal) Comments: The Pap smear is a screening test designed to aid in the detection ofpremalignant and malignant conditions of the uterine cervix. It is not adiagnostic procedure and should not be used as the sole mean s of detectingcervical cancer. Both false-positive and false-negative reports do occur. .This liquid based ThinPrep(R) pap test w as screened with theuse of an image guided system. See Note . (Normal) DIAGNOSIS: SPRCS (Normal) Comments: NEGATIVE FOR INTRAEPITHELIAL LESION AND MALIGNANCY.CELLULAR CHANGES ASSOCIATED WITH ATROPHY ARE PRESENT.Satisfactory for evaluation. Endocervical component may not bedistinguished in cases of atrophy.A reas of partially obscuring exudate are present.Z00.00Adeline Singleton Potato Loader (ASCP) :01 HgA1C , Office (43034) HgA1C , Office 5.9 % (Normal) Range: 4.6 - 7.1 :00 Blood Glucose , Office (61325) Blood Glucose , Office 126 (Normal) :53 Thin Prep Pap Comments: Source.............Cervical;EndocervicalNo. of containers..01 CYTYC Thin Prep VialPATIENT NOT FASTINGPERFORMED BY: =G [facility] Qafvqagzaa470 [facility] [id number] BY: SARAY Jose (14577) [facility] Ldfgnmnizf571 [facility] [id number] Information: [id number] Age Gdln ACOG Testing AGE4 (Normal) Comments: <21 or >65 or no age provided :34 METABOLIC PANEL, Comments: PATIENT WAS FASTINGPERFORMED BY: EMIL [facility] Cwdqpf0443 [facility] [id number] Information: [id number] COMPREHENSIVE (18718) ALT (SGPT) 18 [iU]/L (Normal) Range: 0-32 AST (SGOT) 26 [iU]/L (Normal) Range: 0-40 Alkaline Phosphatase, S 64 [iU]/L (Normal) Range: 39-117 Bilirubin, Total 0.5 mg/dL (Normal) Range: 0.0-1.2 A/G Ratio 1.3 (Normal) Range: 1.1-2.5 Globulin, Total 3.2 g/dL (Normal) Range: 1.5-4.5 Albumin, Serum 4.2 g/dL (Normal) Range: 3.6-4.8 Protein, Total, Serum 7.4 g/dL (Normal) Range: 6.0-8.5 Calcium, Serum 9.5 mg/dL (Normal) Range: 8.7-10.3 Carbon Dioxide, Total 23 mmol/L (Normal) Range: 18-29 Chloride, Serum 101 mmol/L (Normal) Range: 97-108 Potassium, Serum 4.7 mmol/L (Normal) Range: 3.5-5.2 Sodium, Serum 140 mmol/L (Normal) Range: 134-144 BUN/Creatinine Ratio 7 (Abnormal) Range: 11-26 eGFR If Africn Am 40 mL/min/1.73 (Abnormal) eGFR If NonAfricn Am 35 mL/min/1.73 (Abnormal) Creatinine, Serum 1.53 mg/dL (Abnormal) Range: 0.57-1.00 BUN 11 mg/dL (Normal) Range: 8-27 Glucose, Serum 83 mg/dL (Normal) Range: 65-99 :34 CALCIFIDIOL (20802) VIT D 25 Comments: PATIENT WAS FASTINGPERFORMED BY: [facility]CoAtl[facility] Rehabilitation InstituteIrrqcx3721 [facility] [id number] Vitamin D, 25-Hydroxy 59.6 ng/mL (Normal) Range: 30.0-100.0 Comments: Vitamin D deficiency has been defined by the [place] [facility] and an Endocrine Society practice guideline as alevel of serum 25-OH vitamin D less than 20 ng/mL (1,2).The Endocrine Society went on to further define vitamin Dinsufficiency as a level between 21 and 29 ng/mL (2).1. IOM ([place] of Medicine). 2010. Dietary reference intakes for calcium and D. [place]: The National Academies Press.2. Azael MF, Leslee NC, Hillary PHILLIPS, et al. Evaluation, treatment, and prevention of vitamin D deficiency: an Endocrine Society clinical practice guideline. JCEM. 2010; 96(7):1911-30. :37 HgA1C , Office (78847) HgA1C , Office 6.1 % (Normal) Range: 4.6 - 7.1 :37 Blood Glucose , Office (31792) Blood Glucose , Office 107 (Normal) :27 TSH (THYROID STIMULATING Comments: PATIENT WAS FASTINGPERFORMED BY: [facility]6370 [facility] [id number] HORMONE) (81578) TSH 2.480 {uIU/mL} (Normal) Range: 0.450-4.500 :27 CALCIFEDIOL (72449) Comments: PATIENT WAS FASTINGPERFORMED BY: [facility]Asc[facility]6370 [facility] [id number] Vitamin D, 25-Hydroxy 16.7 ng/mL (Abnormal) Range: 30.0-100.0 Comments: Vitamin D deficiency has been defined by the [place] [facility] and an Endocrine Society practice guideline as alevel of serum 25-OH vitamin D less than 20 ng/mL (1,2).The Endocrine Society went on to further define vitamin Dinsufficiency as a level between 21 and 29 ng/mL (2).1. IOM ([place]). 2010. Dietary reference intakes for calcium and D. [place]: The National Academies Press.2. Azael MF, Leslee NC, Hillary PHILLIPS, et al. Evaluation, treatment, and prevention of vitamin D deficiency: an Endocrine Society clinical practice guideline. JCEM. 2010; 96(7):1911-30. :27 LIPID PANEL (91226) Comments: PATIENT WAS FASTINGPERFORMED BY: [facility]6370 [facility] [id number] LDL/HDL Ratio 1.2 {ratio_units} (Normal) Range: 0.0-3.2 Comments: LDL/HDL Ratio Men Women 1/2 Avg.Risk 1.0 1.5 Av g.Risk 3.6 3.2 2X Avg.Risk 6.2 5.0 3X Avg.Risk 8.0 6.1 LDL Cholesterol Calc 61 mg/dL (Normal) Range: 0-99 VLDL Cholesterol Hillary 25 mg/dL (Normal) Range: 5-40 HDL Cholesterol 52 mg/dL (Normal) Comments: According to ATP-III Guidelines, HDL-C >59 mg/dL is considered anegative risk factor for CHD. Triglycerides 124 mg/dL (Normal) Range: 0-149 Cholesterol, Total 138 mg/dL (Normal) Range: 100-199 :27 METABOLIC PANEL, COMPREHENSIVE Comments: PATIENT WAS FASTINGPERFORMED BY: [facility] GroupAtlantic Rehabilitation InstituteRorxip6746 [facility] [id number] (17154) ALT (SGPT) 19 [iU]/L (Normal) Range: 0-32 AST (SGOT) 23 [iU]/L (Normal) Range: 0-40 Alkaline Phosphatase, S 70 [iU]/L (Normal) Range: 39-117 Bilirubin, Total 0.4 mg/dL (Normal) Range: 0.0-1.2 A/G Ratio 1.2 (Normal) Range: 1.1-2.5 Globulin, Total 3.4 g/dL (Normal) Range: 1.5-4.5 Albumin, Serum 4.2 g/dL (Normal) Range: 3.6-4.8 Protein, Total, Serum 7.6 g/dL (Normal) Range: 6.0-8.5 Calcium, Serum 9.5 mg/dL (Normal) Range: 8.7-10.3 Carbon Dioxide, Total 25 mmol/L (Normal) Range: 18-29 Chloride, Serum 96 mmol/L (Abnormal) Range: 97-108 Potassium, Serum 4.0 mmol/L (Normal) Range: 3.5-5.2 Sodium, Serum 139 mmol/L (Normal) Range: 134-144 BUN/Creatinine Ratio 14 (Normal) Range: 11-26 eGFR If Africn Am 48 mL/min/1.73 (Abnormal) eGFR If NonAfricn Am 42 mL/min/1.73 (Abnormal) Creatinine, Serum 1.32 mg/dL (Abnormal) Range: 0.57-1.00 BUN 19 mg/dL (Normal) Range: 8-27 Glucose, Serum 121 mg/dL (Abnormal) Range: 65-99 :27 CBC, PLATELETS & MANUAL Comments: PATIENT WAS FASTINGPERFORMED BY: [facility] GroupAtlantic Rehabilitation InstituteCqszpb7557 [facility] [id number] Information: [id number], [id number] DIFF (35852) Immature Grans (Abs) 0.0 {x10E3/uL} (Normal) Range: 0.0-0.1 Immature Granulocytes 0 % (Normal) Baso (Absolute) 0.0 {x10E3/uL} (Normal) Range: 0.0-0.2 Eos (Absolute) 0.2 {x10E3/uL} (Normal) Range: 0.0-0.4 Monocytes(Absolute) 0.8 {x10E3/uL} (Normal) Range: 0.1-0.9 Lymphs (Absolute) 2.6 {x10E3/uL} (Normal) Range: 0.7-3.1 Neutrophils (Absolute) 3.3 {x10E3/uL} (Normal) Range: 1.4-7.0 Basos 0 % (Normal) Eos 3 % (Normal) Monocytes 12 % (Normal) Lymphs 38 % (Normal) Neutrophils 47 % (Normal) Platelets 280 {x10E3/uL} (Normal) Range: 150-379 RDW 13.2 % (Normal) Range: 12.3-15.4 MCHC 33.3 g/dL (Normal) Range: 31.5-35.7 MCH 30.9 pg (Normal) Range: 26.6-33.0 MCV 93 fL (Normal) Range: 79-97 Hematocrit 42.3 % (Normal) Range: 34.0-46.6 Hemoglobin 14.1 g/dL (Normal) Range: 11.1-15.9 RBC 4.57 {x10E6/uL} (Normal) Range: 3.77-5.28 WBC 7.0 {x10E3/uL} (Normal) Range: 3.4-10.8 47-Usn-570239:31 CREATININE CLEARANCE Comments: PATIENT NOT FASTINGPERFORMED BY: LabCoAtl[facility] Rehabilitation InstituteHsounw8216 [facility] [id number] Information: [id number] START @9AM FINISH 01/28/15@9 AM (65388) Creatinine Clearance 53 mL/min (Abnormal) Range: 88-128 Comments: The above range is based on 1.73 square meter average body surfacearea. Creatinine, Ur 24hr 1075.3 {mg/24_hr} (Normal) Range: 800.0-1800.0 Creatinine, Urine 39.1 mg/dL (Normal) Range: 15.0-278.0 eGFR If Africn Am 45 mL/min/1.73 (Abnormal) eGFR If NonAfricn Am 39 mL/min/1.73 (Abnormal) Creatinine, Serum 1.40 mg/dL (Abnormal) Range: 0.57-1.00 :31 Total Protein,24 Hour Urine Comments: PATIENT NOT FASTINGPERFORMED BY: [facility]6370 [facility] [id number] (41860) Prot,24hr calculated 357.5 {mg/24_hr} (Abnormal) Range: 30.0-150.0 Protein,Total,Urine 13.0 mg/dL (Normal) Range: 0.0-15.0 :28 HgA1C , Office (88597) HgA1C , Office 5.9 % (Normal) Range: 4.6 - 7.1 :28 Blood Glucose , Office (24518) Blood Glucose , Office 136 (Normal) :53 TSH (73619) Comments: PATIENT WAS FASTINGPERFORMED BY: [facility]6370 [facility] [id number] TSH 4.370 {uIU/mL} (Normal) Range: 0.450-4.500 :53 MICROALBUMIN: CREATININE RATIO Comments: PATIENT WAS FASTINGPERFORMED BY: [facility]6370 [facility] [id number] (01797) AND (49268) Microalb/Creat Ratio 5.0 {mg/g_creat} (Normal) Range: 0.0-30.0 Microalbumin, Urine 4.5 ug/mL (Normal) Range: 0.0-17.0 Creatinine, Urine 90.5 mg/dL (Normal) Range: 15.0-278.0 :53 METABOLIC PANEL, COMPREHENSIVE Comments: PATIENT WAS FASTINGPERFORMED BY: [facility]6370 [facility] [id number] (71483) ALT (SGPT) 20 [iU]/L (Normal) Range: 0-32 AST (SGOT) 25 [iU]/L (Normal) Range: 0-40 Alkaline Phosphatase, S 69 [iU]/L (Normal) Range: 39-117 Bilirubin, Total 0.4 mg/dL (Normal) Range: 0.0-1.2 A/G Ratio 1.4 (Normal) Range: 1.1-2.5 Globulin, Total 3.1 g/dL (Normal) Range: 1.5-4.5 Albumin, Serum 4.3 g/dL (Normal) Range: 3.6-4.8 Protein, Total, Serum 7.4 g/dL (Normal) Range: 6.0-8.5 Calcium, Serum 9.2 mg/dL (Normal) Range: 8.7-10.3 Carbon Dioxide, Total 19 mmol/L (Normal) Range: 18-29 Chloride, Serum 104 mmol/L (Normal) Range: 97-108 Potassium, Serum 4.5 mmol/L (Normal) Range: 3.5-5.2 Sodium, Serum 143 mmol/L (Normal) Range: 134-144 BUN/Creatinine Ratio 11 (Normal) Range: 11-26 eGFR If Africn Am 39 mL/min/1.73 (Abnormal) eGFR If NonAfricn Am 34 mL/min/1.73 (Abnormal) Creatinine, Serum 1.59 mg/dL (Abnormal) Range: 0.57-1.00 BUN 18 mg/dL (Normal) Range: 8-27 Glucose, Serum 104 mg/dL (Abnormal) Range: 65-99 07-Jan-20158:53 LIPID PANEL (28450) Comments: PATIENT WAS FASTINGPERFORMED BY: [facility]6370 [facility] [id number] LDL/HDL Ratio 1.4 {ratio_units} (Normal) Range: 0.0-3.2 Comments: LDL/HDL Ratio Men Women 1/2 Avg.Risk 1.0 1.5 Av g.Risk 3.6 3.2 2X Avg.Risk 6.2 5.0 3X Avg.Risk 8.0 6.1 LDL Cholesterol Calc 67 mg/dL (Normal) Range: 0-99 VLDL Cholesterol Hillary 22 mg/dL (Normal) Range: 5-40 HDL Cholesterol 48 mg/dL (Normal) Comments: According to ATP-III Guidelines, HDL-C >59 mg/dL is considered anegative risk factor for CHD. Triglycerides 109 mg/dL (Normal) Range: 0-149 Cholesterol, Total 137 mg/dL (Normal) Range: 100-199 :53 CBC W/AUTO DIFF WBC Comments: PATIENT WAS FASTINGPERFORMED BY: [employer] [facility] [id number] Information: [id number] (62093) Immature Grans (Abs) 0.0 {x10E3/uL} (Normal) Range: 0.0-0.1 Immature Granulocytes 0 % (Normal) Baso (Absolute) 0.1 {x10E3/uL} (Normal) Range: 0.0-0.2 Eos (Absolute) 0.4 {x10E3/uL} (Normal) Range: 0.0-0.4 Monocytes(Absolute) 1.0 {x10E3/uL} (Abnormal) Range: 0.1-0.9 Lymphs (Absolute) 2.5 {x10E3/uL} (Normal) Range: 0.7-3.1 Neutrophils (Absolute) 3.9 {x10E3/uL} (Normal) Range: 1.4-7.0 Basos 1 % (Normal) Eos 5 % (Normal) Monocytes 13 % (Normal) Lymphs 31 % (Normal) Neutrophils 50 % (Normal) Platelets 258 {x10E3/uL} (Normal) Range: 150-379 RDW 13.3 % (Normal) Range: 12.3-15.4 MCHC 33.1 g/dL (Normal) Range: 31.5-35.7 MCH 31.4 pg (Normal) Range: 26.6-33.0 MCV 95 fL (Normal) Range: 79-97 Hematocrit 42.0 % (Normal) Range: 34.0-46.6 Hemoglobin 13.9 g/dL (Normal) Range: 11.1-15.9 RBC 4.42 {x10E6/uL} (Normal) Range: 3.77-5.28 WBC 7.8 {x10E3/uL} (Normal) Range: 3.4-10.8 :53 CALCIFIDIOL (44835) VIT D 25 Comments: PATIENT WAS FASTINGPERFORMED BY: [employer] Xcklfk6671 [facility] [id number] Vitamin D, 25-Hydroxy 22.5 ng/mL (Abnormal) Range: 30.0-100.0 Comments: Vitamin D deficiency has been defined by the [place] [employer] and an Endocrine Society practice guideline as alevel of serum 25-OH vitamin D less than 20 ng/mL (1,2).The Endocrine Society went on to further define vitamin Dinsufficiency as a level between 21 and 29 ng/mL (2).1. IOM ([place] [employer]). 2010. Dietary reference intakes for calcium and D. [place]: The National Academies Press.2. Azael MF, eLslee LEMON, Hillary PHILLIPS, et al. Evaluation, treatment, and prevention of vitamin D deficiency: an Endocrine Society clinical practice guideline. JCEM. 2010; 96(7):1911-30. :22 HgA1C , Office (86587) HgA1C , Office 6.0 % (Normal) Range: 4.6 - 7.1 :22 Blood Glucose , Office (23624) Blood Glucose , Office 132 (Normal) :27 Blood Glucose , Office (22289) Blood Glucose , Office 114 (Normal) :27 HgA1C , Office (52496) HgA1C , Office 5.9 % (Normal) Range: 4.6 - 7.1 :00 Basic Metabolic Panel (8) Comments: PATIENT NOT FASTINGPERFORMED BY: CB [facility] [id number] [facility] [id number] BY: [facility] [address] [id number] Calcium, Serum 9.8 mg/dL (Normal) Range: 8.6-10.2 Carbon Dioxide, Total 22 mmol/L (Normal) Range: 18-29 Chloride, Serum 99 mmol/L (Normal) Range: 97-108 Potassium, Serum 4.0 mmol/L (Normal) Range: 3.5-5.2 Sodium, Serum 140 mmol/L (Normal) Range: 134-144 BUN/Creatinine Ratio 10 (Abnormal) Range: 11-26 eGFR If Africn Am 44 mL/min/1.73 (Abnormal) eGFR If NonAfricn Am 38 mL/min/1.73 (Abnormal) Creatinine, Serum 1.43 mg/dL Range: 0.57-1.00 (Abnormal) BUN 15 mg/dL (Normal) Range: 8-27 Glucose, Serum 101 mg/dL Range: 65-99 (Abnormal) : Osmolality 287 {mOsmol/kg} Comments: PATIENT NOT FASTINGPERFORMED BY: [employer] Javlza5801 [facility] [id number] BY: [employer], [employer] [id number] 00 (Normal) Range: 280-301 : Osmolality, Urine 259 {mOsmol/kg} Comments: PATIENT NOT FASTINGPERFORMED BY: [employer] Zplgfo3660 [facility] [id number] BY: [employer] [id number] 00 (Normal) Comments: 24 hr : 300 - 900 Random: 50 - 1400 After 12hr fluid restriction: >850 : Sodium, Urine 11 mmol/L (Normal) Comments: PATIENT NOT FASTINGPERFORMED BY: AutoSpotMichelle Ville [id number] [facility] [id number] BY: [employer] [id number] 00 2-Xkp-294409:06 Metabolic Panel, Basic Comments: PATIENT NOT FASTINGPERFORMED BY: [employer] Talbfn5231 [facility] [id number] Information: [id number] (04240) Calcium, Serum 9.9 mg/dL (Normal) Range: 8.6-10.2 Carbon Dioxide, Total 22 mmol/L (Normal) Range: 18-29 Chloride, Serum 101 mmol/L (Normal) Range: 97-108 Potassium, Serum 4.6 mmol/L (Normal) Range: 3.5-5.2 BUN/Creatinine Ratio 11 (Normal) Range: 11-26 Sodium, Serum 141 mmol/L (Normal) Range: 134-144 eGFR If Africn Am 39 mL/min/1.73 (Abnormal) eGFR If NonAfricn Am 34 mL/min/1.73 (Abnormal) Creatinine, Serum 1.59 mg/dL (Abnormal) Range: 0.57-1.00 BUN 17 mg/dL (Normal) Range: 8-27 Glucose, Serum 108 mg/dL (Abnormal) Range: 65-99 :34 CBCD Comments: pt has apt with db soon. Non-emergent till then. ALC 3.03 {X10_3/ul} (Normal) Range: 0.83-4.51 ANC 5.0 {X10_3/uL} (Normal) Range: 2.0-7.7 IG% 0.100 % (Normal) Range: 0.0-0.9 Comments: IG% - Immature Granulocytes (promyelocytes, myelocytes andmetamyelocytes) > 1% indicates that a LEFT SHIFT is Present. B% 0.4 % (Normal) Range: 0-1 E% 1.9 % (Normal) Range: 0-5 M% 13.2 % (Abnormal) Range: 0-10 L% 31.7 % (Normal) Range: 19-41 N% 52.7 % (Normal) Range: 47-70 MPV 9.3 fL (Normal) Range: 6.2-12.0 PLT 263 K/mm3 (Normal) Range: 150-450 RDWSD 41.9 fL (Normal) Range: 35.1-43.9 RDWCV 12.7 % (Normal) Range: 11.6-14.6 MCH 32.5 pg (Abnormal) Range: 27.0-32.0 MCHC 35.7 {g/gl} (Normal) Range: 32-36 MCV 91.0 fL (Normal) Range: 81-99 HCT 41.5 % (Normal) Range: 37-47 HGB 14.8 g/dL (Normal) Range: 12.0-15.0 RBC 4.56 {M/mm3} (Normal) Range: 4.2-5.4 WBC 9.6 K/mm3 (Normal) Range: 4.4-11.0 70-Xba-632532:34 CMP Comments: 'TROP' Serial specimen #1, #2, #3, or #4: 1 GAP 9 (Normal) Range: 5-15 CO2 27.0 mmol/L (Normal) Range: 21.0-32.0 CL 98 mmol/L (Normal) Range: 98-107 K 3.0 mmol/L (Abnormal) Range: 3.5-5.1 NA 134 mmol/L (Abnormal) Range: 136-145 BIT 0.40 mg/dL (Normal) Range: 0.00-1.00 ALT 30 U/L (Normal) Range: 12-78 ALK 67 U/L (Normal) Range: 45-117 AST 26 U/L (Normal) Range: 15-37 CA 9.6 mg/dL (Normal) Range: 8.5-10.1 AG 0.8 {RATIO} (Abnormal) Range: 0.9-2.4 GLOB 4.6 g/dL (Abnormal) Range: 2.7-4.2 ALB 3.9 g/dL (Normal) Range: 3.4-5.0 TPROT 8.5 g/dL (Abnormal) Range: 6.4-8.2 BC 9.2 {RATIO} (Abnormal) Range: 10-20 GFRAA 53 mL/min (Abnormal) GFR 44 mL/min (Abnormal) CREAT 1.3 mg/dL (Abnormal) Range: 0.6-1.0 BUN 12 mg/dL (Normal) Range: 7-18 GLU 88 mg/dL (Normal) Range: 70-110 :34 DDIMQ 0.29 {FEU/ug/m} (Normal) Range: 0.27-0.49 Comments: NORMAL D-Dimer level (<0.50) indicates no DVT or PE. :34 TROP < 0.02 ng/mL (Normal) Comments: 'TROP' Serial specimen #1, #2, #3, or #4: 1 Comments: TROPONIN-I EXPECTED VALUES <0.05 NEGATIVE0.06 - 0.59 AT RISK OF FL> OR = 0.60 SUGGEST FL :34 TSH 2.32 {uIU/mL} (Normal) Comments: 'TROP' Serial specimen #1, #2, #3, or #4: 1 Range: 0.358-3.74 01-May-20140:00 Microscopic Examination Comments: PATIENT WAS FASTINGPERFORMED BY: [facility] Nnfhcg8980 [facility] [id number] Bacteria Few (Normal) Mucus Threads Present (Normal) Epithelial Cells (non renal) 0-10 {/hpf} (Normal) Range: 0 - 10 RBC 0-2 {/hpf} (Normal) Range: 0 - 2 WBC 11-30 {/hpf} (Abnormal) Range: 0 - 5 74-Efb-035241:15 TSH (80782) Comments: PATIENT WAS FASTINGPERFORMED BY: [facility] Vhqcru7841 [facility] [place] [id number] TSH 3.310 {uIU/mL} (Normal) Range: 0.450-4.500 94-Pwd-123279:15 CALCIFIDIOL (95076) VIT D 25 Comments: PATIENT WAS FASTINGPERFORMED BY: [facility] Xomjal4223 [facility] [id number] Vitamin D, 25-Hydroxy 35.7 ng/mL (Normal) Range: 30.0-100.0 Comments: Vitamin D deficiency has been defined by the [place] [facility] and an Endocrine Society practice guideline as alevel of serum 25-OH vitamin D less than 20 ng/mL (1,2).The Endocrine Society went on to further define vitamin Dinsufficiency as a level between 21 and 29 ng/mL (2).1. IOM ([place] of Medicine). 2010. Dietary reference intakes for calcium and D. [place]: The National Academies Press.2. Azael MF, Leslee LEMON, Hillary PHILLIPS, et al. Evaluation, treatment, and prevention of vitamin D deficiency: an Endocrine Society clinical practice guideline. JCEM. 2010; 96(7):1911-30. 41-Ike-644599:15 URINALYSIS, W/ MICRO (65644) Comments: PATIENT WAS FASTINGPERFORMED BY: [facility] Lzsfpm5172 [facility] [place] [id number] Microscopic Examination See below: (Normal) Nitrite, Urine Positive (Abnormal) Bilirubin Negative (Normal) Urobilinogen,Semi-Qn 0.2 mg/dL (Normal) Range: 0.0-1.9 Ketones Negative (Normal) Occult Blood Negative (Normal) Glucose Negative (Normal) Protein Negative (Normal) Appearance Clear (Normal) WBC Esterase 2+ (Abnormal) pH 6.5 (Normal) Range: 5.0-7.5 Urine-Color Yellow (Normal) Specific [place] 1.015 (Normal) Range: 1.005-1.030 38-Gyp-643715:15 METABOLIC PANEL, COMPREHENSIVE Comments: PATIENT WAS FASTINGPERFORMED BY: [employer] GroupArtesia General HospitalAqafvl4447 [facility] [id number] (43930) ALT (SGPT) 19 [iU]/L (Normal) Range: 0-32 AST (SGOT) 26 [iU]/L (Normal) Range: 0-40 Alkaline Phosphatase, S 68 [iU]/L (Normal) Range: 39-117 Bilirubin, Total 0.4 mg/dL (Normal) Range: 0.0-1.2 A/G Ratio 1.7 (Normal) Range: 1.1-2.5 Albumin, Serum 4.6 g/dL (Normal) Range: 3.6-4.8 Globulin, Total 2.7 g/dL (Normal) Range: 1.5-4.5 Protein, Total, Serum 7.3 g/dL (Normal) Range: 6.0-8.5 Calcium, Serum 9.6 mg/dL (Normal) Range: 8.6-10.2 Carbon Dioxide, Total 23 mmol/L (Normal) Range: 18-29 Chloride, Serum 95 mmol/L (Abnormal) Range: 97-108 Potassium, Serum 3.3 mmol/L (Abnormal) Range: 3.5-5.2 Comments: Client Requested Flag Sodium, Serum 137 mmol/L (Normal) Range: 134-144 BUN/Creatinine Ratio 8 (Abnormal) Range: 11-26 eGFR If Africn Am 45 mL/min/1.73 (Abnormal) eGFR If NonAfricn Am 39 mL/min/1.73 (Abnormal) Creatinine, Serum 1.42 mg/dL (Abnormal) Range: 0.57-1.00 BUN 11 mg/dL (Normal) Range: 8-27 Glucose, Serum 118 mg/dL (Abnormal) Range: 65-99 53-Pkt-789535:15 LIPID PANEL (92676) Comments: PATIENT WAS FASTINGPERFORMED BY: [employer] GroupAtlantic Rehabilitation InstituteKmcafy5052 [facility] [id number] LDL/HDL Ratio 1.7 {ratio_units} (Normal) Range: 0.0-3.2 LDL Cholesterol Calc 90 mg/dL (Normal) Range: 0-99 VLDL Cholesterol Hillary 33 mg/dL (Normal) Range: 5-40 HDL Cholesterol 53 mg/dL (Normal) Comments: According to ATP-III Guidelines, HDL-C >59 mg/dL is considered anegative risk factor for CHD. Triglycerides 166 mg/dL (Abnormal) Range: 0-149 Cholesterol, Total 176 mg/dL (Normal) Range: 100-199 96-Ejj-283223:15 CBC WITH MANUAL DIFF Comments: PATIENT WAS FASTINGPERFORMED BY: LabCoAtlantic Rehabilitation InstituteKzqcis0401 [facility] [id number] Information: [id number] (04713) Immature Grans (Abs) 0.0 {x10E3/uL} (Normal) Range: 0.0-0.1 Immature Granulocytes 0 % (Normal) Range: 0-2 Baso (Absolute) 0.0 {x10E3/uL} (Normal) Range: 0.0-0.2 Eos (Absolute) 0.2 {x10E3/uL} (Normal) Range: 0.0-0.4 Monocytes(Absolute) 0.9 {x10E3/uL} (Normal) Range: 0.1-0.9 Lymphs (Absolute) 2.1 {x10E3/uL} (Normal) Range: 0.7-3.1 Neutrophils (Absolute) 3.7 {x10E3/uL} (Normal) Range: 1.4-7.0 Basos 0 % (Normal) Range: 0-3 Eos 3 % (Normal) Range: 0-5 Monocytes 13 % (Abnormal) Range: 4-12 Lymphs 30 % (Normal) Range: 14-46 Neutrophils 54 % (Normal) Range: 40-74 Platelets 297 {x10E3/uL} (Normal) Range: 150-379 RDW 13.2 % (Normal) Range: 12.3-15.4 MCHC 34.0 g/dL (Normal) Range: 31.5-35.7 MCH 31.0 pg (Normal) Range: 26.6-33.0 Hematocrit 43.0 % (Normal) Range: 34.0-46.6 MCV 91 fL (Normal) Range: 79-97 Hemoglobin 14.6 g/dL (Normal) Range: 11.1-15.9 RBC 4.71 {x10E6/uL} (Normal) Range: 3.77-5.28 WBC 7.0 {x10E3/uL} (Normal) Range: 3.4-10.8 50-Jnk-366698:20 Blood Glucose , Office (47459) Blood Glucose , Office 102 (Normal) 43-Jpf-799295:20 HgA1C , Office (57757) HgA1C , Office 6.0 % (Normal) Range: 4.6 - 7.1 0-Gvd-565015:27 URINE VERÓNICA CULTURE-IDENTIFICATN Comments: PATIENT NOT FASTINGPERFORMED BY: LabCoMichelle [place]ille 1236570 [facility] [id number] Information: [id number] (91325) Result 1 NG36 (Normal) Comments: No growth in 36 - 48 hours. Urine Culture,Comprehensive Final report (Normal) 8-Upd-793356:03 URINALYSIS (90432) URINALYSIS neg for all (Normal) 96-Spx-86038:31 URINE VERÓNICA CULTURE-SHARIFA COL Comments: PATIENT NOT FASTINGPERFORMED BY: [employer] Gjenfw3371 [facility] [id number] Information: SRC:UR [id number] COUNT (22864) Antimicrobial MIHEAD (Normal) Comments: S = Susceptible; I = Intermediate; R = Resistant P = Positive; N = Negative MICS are expressed in micrograms per mL Antibiotic RSLT#1 RSLT#2 Susceptibility RSLT#3 RSLT#4Amoxicillin/Clavulanic Acid RCefazolin RCefepime SCeftriaxone SCefuroxime SCephalothin RCiprofloxacin SErtapenem SGentamicin SImipenem SLevofloxacin SNitrofurantoin I Piperacillin STetracycline STobramycin STrimethoprim/Sulfa S Result 1 Citrobacter species Comments: Greater than 100,000 colony forming units per mL (Normal) Urine Final report Culture,Comprehensive (Normal) :26 Urinalysis, Office (62022) UA - LEUKOCYTE ESTERASE Moderate (Normal) UA - NITRITE Negative (Normal) URINE UROBILINGN SHARIFA TIMED Normal mg/dL (Normal) UA - PROTEIN Negative mg/dL (Normal) UA - PH 5 (Abnormal) UA - BLOOD Hemolyzed Small (Normal) UA - SPECIFIC GRAVITY 1.025 (Normal) UA - KETONES Negative mg/dL (Normal) UA - BILIRUBIN Negative (Normal) UA - GLUCOSE Negative (Normal) :52 LIPID PANEL (02875) Comments: PATIENT WAS FASTINGPERFORMED BY: [employer]70 [facility] [id number] Information: [id number] LDL/HDL Ratio 2.1 {ratio_units} (Normal) Range: 0.0-3.2 LDL Cholesterol Calc 111 mg/dL (Abnormal) Range: 0-99 VLDL Cholesterol Hillary 31 mg/dL (Normal) Range: 5-40 HDL Cholesterol 53 mg/dL (Normal) Comments: According to ATP-III Guidelines, HDL-C >59 mg/dL is considered anegative risk factor for CHD. Triglycerides 156 mg/dL (Abnormal) Range: 0-149 Cholesterol, Total 195 mg/dL (Normal) Range: 100-199 :52 HEPATIC FUNCTION PANEL (60079) Comments: PATIENT WAS FASTINGPERFORMED BY: [employer] [facility] [id number] ALT (SGPT) 17 [iU]/L (Normal) Range: 0-32 AST (SGOT) 23 [iU]/L (Normal) Range: 0-40 Alkaline Phosphatase, S 57 [iU]/L (Normal) Range: 39-117 Bilirubin, Direct 0.08 mg/dL (Normal) Range: 0.00-0.40 Bilirubin, Total 0.3 mg/dL (Normal) Range: 0.0-1.2 Albumin, Serum 4.3 g/dL (Normal) Range: 3.6-4.8 Protein, Total, Serum 7.2 g/dL (Normal) Range: 6.0-8.5 :52 CALCIFEDIOL (87913) Comments: PATIENT WAS FASTINGPERFORMED BY: [employer] Mobilelin6370 [facility] [id number] Vitamin D, 25-Hydroxy 13.8 ng/mL (Abnormal) Range: 30.0-100.0 Comments: Vitamin D deficiency has been defined by the [place] of[place] and an Endocrine Society practice guideline as alevel of serum 25-OH vitamin D less than 20 ng/mL (1,2).The Endocrine Society went on to further define vitamin Dinsufficiency as a level between 21 and 29 ng/mL (2).1. IOM ([place] [employer]). 2010. Dietary reference intakes for calcium and D. [place]: The National Academies Press.2. Azael MF, Leslee LEMON, Hillary PHILLIPS, et al. Evaluation, treatment, and prevention of vitamin D deficiency: an Endocrine Society clinical practice guideline. JCEM. 2010; 96(7):1911-30. 95-Vyl-024853:38 Blood Glucose , Office (23801) Blood Glucose , Office 114 (Normal) 10-Xbi-228363:38 HgA1C , Office (76217) HgA1C , Office 5.8 % (Normal) Range: 4.6 - 7.1 82-Sgr-340176:23 Urinalysis, Office (47928) UA - BILIRUBIN Negative (Normal) UA - BLOOD Hemolyzed Trace (Normal) UA - GLUCOSE Negative (Normal) UA - KETONES Negative mg/dL (Normal) UA - LEUKOCYTE ESTERASE Small (Normal) UA - NITRITE Negative (Normal) UA - PH 5.0 (Normal) UA - PROTEIN Negative mg/dL (Normal) UA - SPECIFIC GRAVITY 1.025 (Normal) URINE UROBILINGN SHARIFA TIMED Normal mg/dL (Normal) 68-Gma-008414:50 Metabolic Panel, Basic Comments: PATIENT NOT FASTINGPERFORMED BY: LabCoAtlantic Rehabilitation InstituteHyxpsu1532 [facility] [id number] Information: [id number] (01824) Calcium, Serum 9.9 mg/dL (Normal) Range: 8.6-10.2 Carbon Dioxide, Total 19 mmol/L (Normal) Range: 19-28 Chloride, Serum 104 mmol/L (Normal) Range: 97-108 Potassium, Serum 4.0 mmol/L (Normal) Range: 3.5-5.2 Sodium, Serum 139 mmol/L (Normal) Range: 134-144 BUN/Creatinine Ratio 16 (Normal) Range: 11-26 eGFR If Africn Am 48 mL/min/1.73 (Abnormal) eGFR If NonAfricn Am 42 mL/min/1.73 (Abnormal) Creatinine, Serum 1.34 mg/dL (Abnormal) Range: 0.57-1.00 BUN 21 mg/dL (Normal) Range: 8-27 Glucose, Serum 84 mg/dL (Normal) Range: 65-99 96-Xdh-731096:39 BRAIN WITHOUT CONTRAST Radiology Report See Note Comments: STUDY: MRI BRAIN WITHOUT CONTRAST REASON FOR EXAM: Female, 62 years old. Memory loss, dizziness. TECHNIQUE: Standardized sagittal and axial fat and water weighted pulsesequences were obtained wit (Normal) hout intravenous contrast. COMPARISON: None. FINDINGS:The study has limitations from motion artifacts. The cortical sulci and ventricles are within normal limits in size forage. No acute infarction is demonstrated on the diffusion weighted series. Nosignificant signal abnormalities are seen in the bilateral cerebral whitematter following for motion artifacts. The basal ganglia and thalami appear normal. No lesion is identified in the brainstem or cerebellum. No mass lesion is identified. The pituitary and optic chiasm are grossly normal. Expected major vascular structures at the base of the brain show patency. The visualized internal auditory canals appear normal. No acute orbital abnormality is seen. There is no significant sinus mucosal disease. No lesion is identified in the calvarium or skull base. IMPRESSION:Limited study secondary to motion. No acute process identified. Signed:Petrona Sweeney M.D.July 12, 2013 at 4:19:02 PM [id number] Signed PV/PV If you are the referring physician and would like to consult with theradiologist who provided this interpretation, please contact Petrona molina M.D. at [phone]. If this radiologist is unavailable, youwillbe directed to another radiologist to assist. If you are a patient with a question regarding this report, pleasecontactyour referring physician directly. Professional Interpretation Provided By: [employer], Phone , These documents contain legally protected and confidential healthinformation intended onl y for the use of the individual or entity namedabove. If you are not the intended recipient, you are hereby notifiedthatany disclosure, copying, distribution, or other use of these documents isstrictly prohibited. If you have received this information in error,pleasenotify the sender immediately and arrange for the return or destructionofthese documents. Dictated on 07/12/13 1619 by Annie Meek MDaTranscribed on 07/12/131620 by ITS IMPORTSign by Petrona Meek MD on 07/12/131621 Sign by: Petrona Meek MD :39 CRE GFRAA 45 mL/min (Abnormal) GFR 37 mL/min (Abnormal) CREAT 1.5 mg/dL (Abnormal) Range: 0.6-1.0 :30 CRECLR Comments: START 07-05-13 @ 830AMEND 07-06-13 @ 830AM CCREU 26.9 mg/dL (Normal) GFR 37 mL/min (Abnormal) tCRECL 37 ml/min (Abnormal) Range: 100-200 CCTV 3000 mL (Normal) tCREAT 1.5 mg/dL (Abnormal) Range: 0.6-1.0 CCC 24.0 {HOURS} (Normal) :30 PROU Comments: 07-05-13 @ 830AMEND 07-06-13 @ 830AM uPRO24 180 {MG/24HR} (Abnormal) uPRO < 6.0 mg/dL (Normal) Comments: Protein in this specimen is below the assay range;therefore, the calculation for 24 Hour Protein can not bedetermined. UPTV 3000 mL (Normal) UPCT 24.0 {HOURS} (Normal) :39 Metabolic Panel, Basic Comments: recheck in one week; PATIENT NOT FASTINGPERFORMED BY: LabCoAtlantic Rehabilitation InstituteAppryv8617 [facility] [id number] Information: [id number] (30504) Calcium, Serum 9.7 mg/dL (Normal) Range: 8.6-10.2 Carbon Dioxide, Total 22 mmol/L (Normal) Range: 19-28 Chloride, Serum 96 mmol/L (Abnormal) Range: 97-108 Potassium, Serum 3.3 mmol/L (Abnormal) Range: 3.5-5.2 Comments: Client Requested Flag Sodium, Serum 136 mmol/L (Normal) Range: 134-144 BUN/Creatinine Ratio 11 (Normal) Range: 11-26 eGFR If Africn Am 45 mL/min/1.73 (Abnormal) eGFR If NonAfricn Am 39 mL/min/1.73 (Abnormal) Creatinine, Serum 1.41 mg/dL (Abnormal) Range: 0.57-1.00 BUN 16 mg/dL (Normal) Range: 8-27 Glucose, Serum 109 mg/dL (Abnormal) Range: 65-99 :50 Metabolic Panel, Basic Comments: PATIENT NOT FASTINGPERFORMED BY: [employer]70 [facility]Nov[facility] [id number] Information: [id number] (61690) Calcium, Serum 9.5 mg/dL (Normal) Range: 8.6-10.2 Carbon Dioxide, Total 22 mmol/L (Normal) Range: 19-28 Chloride, Serum 98 mmol/L (Normal) Range: 97-108 Potassium, Serum 3.9 mmol/L (Normal) Range: 3.5-5.2 Sodium, Serum 138 mmol/L (Normal) Range: 134-144 BUN/Creatinine Ratio 12 (Normal) Range: 11-26 eGFR If Africn Am 40 mL/min/1.73 (Abnormal) eGFR If NonAfricn Am 35 mL/min/1.73 (Abnormal) Creatinine, Serum 1.56 mg/dL (Abnormal) Range: 0.57-1.00 BUN 19 mg/dL (Normal) Range: 8-27 Glucose, Serum 110 mg/dL (Abnormal) Range: 65-99 :29 HgA1C , Office (08957) HgA1C , Office 5.7 % (Normal) Range: 4.6 - 7.1 :14 TSH (64826) Comments: PATIENT NOT FASTINGPERFORMED BY: EpicsellNovant Health [facility] [id number] TSH 2.850 {uIU/mL} (Normal) Range: 0.450-4.500 10-Cnx-387244:14 CBC, Platelets & Auto Comments: PATIENT NOT FASTINGPERFORMED BY: [facility] Cwoxix0429 [facility] AlfonsoNovant Health [facility] [id number] Information: [id number] Diff (46311) Immature Grans (Abs) 0.0 {x10E3/uL} (Normal) Range: 0.0-0.1 Immature Granulocytes 0 % (Normal) Range: 0-2 Baso (Absolute) 0.0 {x10E3/uL} (Normal) Range: 0.0-0.2 Eos (Absolute) 0.2 {x10E3/uL} (Normal) Range: 0.0-0.4 Monocytes(Absolute) 1.1 {x10E3/uL} (Abnormal) Range: 0.1-1.0 Lymphs (Absolute) 2.3 {x10E3/uL} (Normal) Range: 0.7-4.5 Neutrophils (Absolute) 4.0 {x10E3/uL} (Normal) Range: 1.8-7.8 Basos 1 % (Normal) Range: 0-3 Eos 3 % (Normal) Range: 0-7 Monocytes 14 % (Abnormal) Range: 4-13 Lymphs 30 % (Normal) Range: 14-46 Neutrophils 52 % (Normal) Range: 40-74 Platelets 271 {x10E3/uL} (Normal) Range: 140-415 RDW 13.5 % (Normal) Range: 12.3-15.4 MCHC 34.0 g/dL (Normal) Range: 31.5-35.7 MCH 31.6 pg (Normal) Range: 26.6-33.0 MCV 93 fL (Normal) Range: 79-97 Hematocrit 42.6 % (Normal) Range: 34.0-46.6 Hemoglobin 14.5 g/dL (Normal) Range: 11.1-15.9 RBC 4.59 {x10E6/uL} (Normal) Range: 3.77-5.28 WBC 7.5 {x10E3/uL} (Normal) Range: 4.0-10.5 90-Ajf-998336:14 Metabolic Panel, Comprehensive Comments: PATIENT NOT FASTINGPERFORMED BY: LabCoAtlantic Rehabilitation InstituteHybmry9861 [facility] [id number] (44640) ALT (SGPT) 19 [iU]/L (Normal) Range: 0-32 AST (SGOT) 26 [iU]/L (Normal) Range: 0-40 Alkaline Phosphatase, S 53 [iU]/L (Normal) Range: 47-112 Bilirubin, Total 0.3 mg/dL (Normal) Range: 0.0-1.2 A/G Ratio 1.4 (Normal) Range: 1.1-2.5 Globulin, Total 3.4 g/dL (Normal) Range: 1.5-4.5 Albumin, Serum 4.7 g/dL (Normal) Range: 3.6-4.8 Protein, Total, Serum 8.1 g/dL (Normal) Range: 6.0-8.5 Calcium, Serum 9.8 mg/dL (Normal) Range: 8.6-10.2 Carbon Dioxide, Total 25 mmol/L (Normal) Range: 19-28 Chloride, Serum 95 mmol/L (Abnormal) Range: 97-108 Potassium, Serum 3.4 mmol/L (Abnormal) Range: 3.5-5.2 Comments: Client Requested Flag Sodium, Serum 136 mmol/L (Normal) Range: 134-144 BUN/Creatinine Ratio 15 (Normal) Range: 11-26 eGFR If Africn Am 42 mL/min/1.73 (Abnormal) eGFR If NonAfricn Am 36 mL/min/1.73 (Abnormal) Creatinine, Serum 1.51 mg/dL (Abnormal) Range: 0.57-1.00 BUN 23 mg/dL (Normal) Range: 8-27 Glucose, Serum 105 mg/dL (Abnormal) Range: 65-99 86-Wvc-427104:06 URINE VERÓNICA CULTURE-SHARIFA COL Comments: PATIENT NOT FASTINGPERFORMED BY: [facility]6370 [facility] [id number] Information: SRC:UR ADD [id number] COUNT ([id number]) Antimicrobial MIHEAD (Normal) Comments: S = Susceptible; I = Intermediate; R = Resistant P = Positive; N = Negative MICS are expressed in micrograms per mL Antibiotic RSLT#1 RSLT#2 Susceptibility RSLT#3 RSLT#4Amoxicillin/Clavulanic Acid SAmpicillin SCefazolin SCefepime SCeftriaxone SCefuroxime ICephalothin ICiprofloxacin SESBL NErtapenem SGentamicin SImipenem S Levofloxacin SNitrofurantoin SPiperacillin STetracycline STobramycin STrimethoprim/Sulfa S Result 1 Escherichia coli Comments: 10,000-25,000 colony forming units per mL (Normal) Urine Final report Culture,Comprehensive (Normal) 42-Plh-889434:09 Urinalysis, Office (15105) UA - BILIRUBIN Negative (Normal) UA - BLOOD Hemolyzed Moderate (Normal) UA - GLUCOSE Negative (Normal) UA - KETONES Negative mg/dL (Normal) UA - LEUKOCYTE ESTERASE Small (Normal) UA - NITRITE Negative (Normal) UA - PH 6.0 (Normal) UA - PROTEIN Negative mg/dL (Normal) UA - SPECIFIC GRAVITY 1.005 (Normal) URINE UROBILINGN SHARIFA TIMED 2 mg/dL (Normal) 8-Ynn-669939:04 Renal function Panel Comments: PATIENT NOT FASTINGPERFORMED BY: LabCoAtlantic Rehabilitation InstituteJlpcyr9352 [facility] [id number] Information: [id number] (39420) Albumin, Serum 4.1 g/dL (Normal) Range: 3.6-4.8 Phosphorus, Serum 4.2 mg/dL (Normal) Range: 2.5-4.5 Calcium, Serum 9.7 mg/dL (Normal) Range: 8.6-10.2 Carbon Dioxide, Total 23 mmol/L (Normal) Range: 19-28 Chloride, Serum 100 mmol/L (Normal) Range: 97-108 Potassium, Serum 3.8 mmol/L (Normal) Range: 3.5-5.2 Sodium, Serum 139 mmol/L (Normal) Range: 134-144 BUN/Creatinine Ratio 15 (Normal) Range: 11-26 eGFR If Africn Am 46 mL/min/1.73 (Abnormal) eGFR If NonAfricn Am 40 mL/min/1.73 (Abnormal) Creatinine, Serum 1.40 mg/dL (Abnormal) Range: 0.57-1.00 BUN 21 mg/dL (Normal) Range: 8-27 Glucose, Serum 110 mg/dL (Abnormal) Range: 65-99 [id number] CALCIFEDIOL ([id number]) Comments: PATIENT NOT FASTINGPERFORMED BY: CB [facility] [id number]Dublin [place] [id number] Vitamin D, 25-Hydroxy 16.7 ng/mL (Abnormal) Range: 30.0-100.0 Comments: Vitamin D deficiency has been defined by the [place] [facility] and an Endocrine Society practice guideline as alevel of serum 25-OH vitamin D less than 20 ng/mL (1,2).The Endocrine Society went on to further define vitamin Dinsufficiency as a level between 21 and 29 ng/mL (2).1. IOM ([place] [employer]). 2010. Dietary reference intakes for calcium and D. [place]: The National Academies Press.2. Azael MF, Leslee LEMON, Hillary PHILLIPS, et al. Evaluation, treatment, and prevention of vitamin D deficiency: an Endocrine Society clinical practice guideline. JCEM. 2010; 96(7):1911-30. 41-Rtm-806840:22 MAGNESIUM (47736) Comments: PATIENT NOT FASTINGPERFORMED BY: CB [facility] Mcwjih[address]Dublin [place] [id number] Magnesium, Serum 2.3 mg/dL (Normal) Range: 1.6-2.6 83-Gzf-979111:22 T4, FREE (THYROXINE) (88363) Comments: PATIENT NOT FASTINGPERFORMED BY: [facility] Oihyih25[address]Dublin [place] [id number] T4,Free(Direct) 1.50 ng/dL (Normal) Range: 0.82-1.77 21-Qii-425405:22 T3, FREE (TRIDOTHYRONINE) (45663) Comments: PATIENT NOT FASTINGPERFORMED BY: CB [facility] Czuokw00[address]Dublin [place] [id number] Triiodothyronine,Free,Serum 2.6 pg/mL (Normal) Range: 2.0-4.4 74-Zak-588933:22 TSH (42960) Comments: PATIENT NOT FASTINGPERFORMED BY: CB [facility] Pdlssu55[address]Dublin [place] [id number] TSH 1.920 {uIU/mL} (Normal) Range: 0.450-4.500 :22 CBC, Platelets & Auto Comments: PATIENT NOT FASTINGPERFORMED BY: EMIL [facility] [address] [place] [id number] Information: [id number] Diff (89562) Immature Grans (Abs) 0.0 {x10E3/uL} (Normal) Range: 0.0-0.1 Immature Granulocytes 0 % (Normal) Range: 0-2 Baso (Absolute) 0.1 {x10E3/uL} (Normal) Range: 0.0-0.2 Eos (Absolute) 0.3 {x10E3/uL} (Normal) Range: 0.0-0.4 Monocytes(Absolute) 1.5 {x10E3/uL} (Abnormal) Range: 0.1-1.0 Lymphs (Absolute) 2.6 {x10E3/uL} (Normal) Range: 0.7-4.5 Neutrophils (Absolute) 4.1 {x10E3/uL} (Normal) Range: 1.8-7.8 Basos 1 % (Normal) Range: 0-3 Eos 4 % (Normal) Range: 0-7 Monocytes 17 % (Abnormal) Range: 4-13 Lymphs 30 % (Normal) Range: 14-46 Neutrophils 48 % (Normal) Range: 40-74 Platelets 269 {x10E3/uL} (Normal) Range: 140-415 RDW 13.2 % (Normal) Range: 12.3-15.4 MCHC 34.0 g/dL (Normal) Range: 31.5-35.7 MCH 31.3 pg (Normal) Range: 26.6-33.0 MCV 92 fL (Normal) Range: 79-97 Hematocrit 43.2 % (Normal) Range: 34.0-46.6 Hemoglobin 14.7 g/dL (Normal) Range: 11.1-15.9 RBC 4.70 {x10E6/uL} (Normal) Range: 3.77-5.28 WBC 8.5 {x10E3/uL} (Normal) Range: 4.0-10.5 23-Dll-775614:22 Metabolic Panel, Comprehensive Comments: PATIENT NOT FASTINGPERFORMED BY: EMIL [facility]nect, llcAscension [facility]6[address] [facility] [id number] (12223) ALT (SGPT) 21 [iU]/L (Normal) Range: 0-32 AST (SGOT) 24 [iU]/L (Normal) Range: 0-40 Alkaline Phosphatase, S 56 [iU]/L (Normal) Range: 25-165 Bilirubin, Total 0.2 mg/dL (Normal) Range: 0.0-1.2 A/G Ratio 1.3 (Normal) Range: 1.1-2.5 Globulin, Total 3.2 g/dL (Normal) Range: 1.5-4.5 Albumin, Serum 4.3 g/dL (Normal) Range: 3.6-4.8 Protein, Total, Serum 7.5 g/dL (Normal) Range: 6.0-8.5 Calcium, Serum 9.6 mg/dL (Normal) Range: 8.6-10.2 Carbon Dioxide, Total 22 mmol/L (Normal) Range: 19-28 Comments: Please note reference interval change Chloride, Serum 97 mmol/L (Normal) Range: 97-108 Potassium, Serum 3.2 mmol/L (Abnormal) Range: 3.5-5.2 Comments: Client Requested Flag Sodium, Serum 138 mmol/L (Normal) Range: 134-144 BUN/Creatinine Ratio 13 (Normal) Range: 11-26 eGFR If Africn Am 47 mL/min/1.73 (Abnormal) eGFR If NonAfricn Am 41 mL/min/1.73 (Abnormal) Creatinine, Serum 1.36 mg/dL (Abnormal) Range: 0.57-1.00 BUN 18 mg/dL (Normal) Range: 8-27 Glucose, Serum 97 mg/dL (Normal) Range: 65-99 0-Inz-709387:20 METABOLIC PANEL, COMPREHENSIVE Comments: PATIENT WAS FASTINGPERFORMED BY: [facility]6[address] [facility] [id number] (46026) ALT (SGPT) 19 [iU]/L (Normal) Range: 0-32 AST (SGOT) 22 [iU]/L (Normal) Range: 0-40 Alkaline Phosphatase, S 54 [iU]/L (Normal) Range: 39-117 Bilirubin, Total 0.3 mg/dL (Normal) Range: 0.0-1.2 A/G Ratio 1.2 (Normal) Range: 1.1-2.5 Albumin, Serum 4.2 g/dL (Normal) Range: 3.6-4.8 Globulin, Total 3.4 g/dL (Normal) Range: 1.5-4.5 Protein, Total, Serum 7.6 g/dL (Normal) Range: 6.0-8.5 Calcium, Serum 9.2 mg/dL (Normal) Range: 8.6-10.2 Carbon Dioxide, Total 20 mmol/L (Normal) Range: 19-28 Chloride, Serum 105 mmol/L (Normal) Range: 97-108 Potassium, Serum 4.0 mmol/L (Normal) Range: 3.5-5.2 Sodium, Serum 142 mmol/L (Normal) Range: 134-144 BUN/Creatinine Ratio 14 (Normal) Range: 11-26 eGFR If Africn Am 48 mL/min/1.73 (Abnormal) eGFR If NonAfricn Am 42 mL/min/1.73 (Abnormal) Creatinine, Serum 1.34 mg/dL (Abnormal) Range: 0.57-1.00 BUN 19 mg/dL (Normal) Range: 8-27 Glucose, Serum 102 mg/dL (Abnormal) Range: 65-99 3-Wba-499613:20 CBC WITH MANUAL DIFF Comments: PATIENT WAS FASTINGPERFORMED BY: [facility] Tuaygt3028 [facility] [id number] Information: [id number] (39972) Immature Grans (Abs) 0.0 {x10E3/uL} (Normal) Range: 0.0-0.1 Immature Granulocytes 0 % (Normal) Range: 0-2 Baso (Absolute) 0.1 {x10E3/uL} (Normal) Range: 0.0-0.2 Eos (Absolute) 0.3 {x10E3/uL} (Normal) Range: 0.0-0.4 Monocytes(Absolute) 0.9 {x10E3/uL} (Normal) Range: 0.1-0.9 Lymphs (Absolute) 2.4 {x10E3/uL} (Normal) Range: 0.7-3.1 Neutrophils (Absolute) 3.7 {x10E3/uL} (Normal) Range: 1.4-7.0 Basos 1 % (Normal) Range: 0-3 Eos 4 % (Normal) Range: 0-5 Monocytes 13 % (Abnormal) Range: 4-12 Lymphs 32 % (Normal) Range: 14-46 Neutrophils 50 % (Normal) Range: 40-74 Platelets 285 {x10E3/uL} (Normal) Range: 155-379 RDW 13.5 % (Normal) Range: 12.3-15.4 MCHC 32.9 g/dL (Normal) Range: 31.5-35.7 MCH 31.2 pg (Normal) Range: 26.6-33.0 MCV 95 fL (Normal) Range: 79-97 Hematocrit 42.3 % (Normal) Range: 34.0-46.6 Hemoglobin 13.9 g/dL (Normal) Range: 11.1-15.9 RBC 4.46 {x10E6/uL} (Normal) Range: 3.77-5.28 WBC 7.4 {x10E3/uL} (Normal) Range: 3.4-10.8 0-Axz-191341:20 LIPID PANEL (71161) Comments: PATIENT WAS FASTINGPERFORMED BY: [employer] [facility] [id number] LDL/HDL Ratio 2.0 {ratio_units} (Normal) Range: 0.0-3.2 LDL Cholesterol Calc 109 mg/dL (Abnormal) Range: 0-99 VLDL Cholesterol Hillary 35 mg/dL (Normal) Range: 5-40 HDL Cholesterol 54 mg/dL (Normal) Comments: According to ATP-III Guidelines, HDL-C >59 mg/dL is considered anegative risk factor for CHD. Triglycerides 175 mg/dL (Abnormal) Range: 0-149 Cholesterol, Total 198 mg/dL (Normal) Range: 100-199 7-Jga-346195:20 TSH (65287) Comments: PATIENT WAS FASTINGPERFORMED BY: [employer] Mobilelin6370 [facility] [id number] TSH 2.720 {uIU/mL} (Normal) Range: 0.450-4.500 36-Tip-969266:22 HgA1C , Office (31866) HgA1C , Office 6.0 % (Normal) Range: 4.6 - 7.1 19-Wtr-700038:22 Blood Glucose , Office (97843) Blood Glucose , Office 249 (Normal) Comments: has eaten in last 2h 53-Qdw-678874:20 CHEST, PA AND LATERAL Radiology Report See Note (Normal) Comments: PROCEDURE: X-RAY CHEST REASON FOR EXAM: Female, 62 years old. Two week history of dry cough. TECHNIQUE: PA and lateral views of the chest. COMPARISON: Comparison is made with prior study dated November 23, 2011. FINDINGS: The lungs are expanded. There is no demonstrated parenchymalabnormality.There is no demonstrated pleural abnormality. Normal heart and pericardium. Normal mediastinum and hi la. Normal visualized pulmonary arteries.Normalvisualized aortic arch and descending thoracic aorta. There are diffuse degenerative changes of the visualized thoracic spine.Normal visualized ribs, clav icles, and shoulders. There is no demonstrated abnormality of the visualized soft tissuestructures of the upper abdomen. IMPRESSION:No acute abnormality is seen. Signed:Anibal Lan M.D.November 022012 at 8:14:34 AM [id number] Signed GP/GP If you are the referring physician and would like to consult with theradiologist who provided this interpretation, please contact Eliecer Bui M.D. at [phone]. If this radiologist is unavailable, youwill be directed to another radiologist to assist. If you are a patient with a question regarding this report, pleasecontactyour referring physician directly. Professional Interpretation Provided By: [employer], Phone , These documents contain legally protected and confidential healthinformation int ended only for the use of the individual or entity namedabove. If you are not the intended recipient, you are hereby notifiedthatany disclosure, copying, distribution, or other use of these documents is strictly prohibited. If you have received this information in error,pleasenotify the sender immediately and arrange for the return or destructionofthese documents. Dictated on 11/21/12 1717 by Isiah Donahue MDranscribed on 11/22/12 0818 by ITS IMPORTSign by Anibal Lan MD on 11/22/12 0818 Sign by: Anibal Lan MD 49-Yjb-00686:19 VERÓNICA CULTURE-OTHER (51165) Comments: PATIENT NOT FASTINGPERFORMED BY: [facility], [facility]cM[facility] Mwfxng5500 [facility] [id number] Information: SRC:THRT [id number] Result 1 RRF (Normal) Comments: Routine respiratory duyen Upper Respiratory Culture Final report (Normal) 96-Lxc-638513:33 Rapid Strep Test, Office (15603) Rapid Strep Test, Office Negative (Normal) 2-Qkt-970679:50 Celiac Disease Comprehensive Comments: PERFORMED BY: [employer] [facility] [id number] Immunoglobulin A, Qn, 364 mg/dL (Normal) Range: 91-414 Serum Endomysial Antibody IgA Negative (Normal) t-Transglutaminase (tTG) <2 U/mL (Normal) Range: 0-5 IgG Comments: Negative 0 - 5 Weak Positive 6 - 9 Positive >9 t-Transglutaminase (tTG) <2 U/mL (Normal) Range: 0-3 IgA Comments: Negative 0 - 3 Weak Positive 4 - 10 Positive >10 . Tissue Transglutaminase (tTG) has been identified as the endomysial antigen. Studies have demonstr- ated that endomysial IgA antibo dies have over 99% specificity for gluten sensitive enteropathy. Deamidated Gliadin Abs, 2 {units} (Normal) Range: 0-19 IgG Comments: Negative 0 - 19 Weak Positive 20 - 30 Moderate to Strong Positive >30 Deamidated Gliadin Abs, 5 {units} (Normal) Range: 0-19 IgA Comments: Negative 0 - 19 Weak Positive 20 - 30 Moderate to Strong Positive >30 Potassium, Serum 4.0 mmol/L Comments: PERFORMED BY: [employer] Mmewqp6013 [facility] [id number] 4:50 (Normal) Range: 3.5-5.2 2-Zqj-331519:30 CBCMD ANC 3.7 3/uL (Normal) Range: 2.0-7.7 IG# 0.020 3/ul (Abnormal) Range: 0.0-0.0 IG% 0.30 % (Abnormal) Range: 0.0-0.0 B% 0.9 % (Normal) Range: 0-1 E% 3.3 % (Normal) Range: 0-5 M% 15.4 % (Abnormal) Range: 0-10 L% 27.5 % (Normal) Range: 19-41 N% 52.6 % (Normal) Range: 47-70 MPV 9.6 fL (Normal) Range: 6.2-12.0 PLT 266 K/mm3 (Normal) Range: 150-450 RDWSD 42.7 fL (Normal) Range: 35.1-43.9 RDWCV 12.4 % (Normal) Range: 11.6-14.6 MCHC 33.5 g/dL (Normal) Range: 32-36 MCH 32.0 pg (Normal) Range: 27.0-32.0 MCV 95.4 fL (Normal) Range: 81-99 HCT 41.5 % (Normal) Range: 37-47 HGB 13.9 g/dL (Normal) Range: 12.0-15.0 RBC 4.35 {M/mm3} (Normal) Range: 4.2-5.4 WBC 7.0 {k/mm3} (Normal) Range: 4.4-11.0 3-Gwa-802844:30 CMP GAP 11 (Normal) Range: 5-15 CO2 27.0 mmol/L (Normal) Range: 21.0-32.0 CL 99 mmol/L (Normal) Range: 98-107 K 3.4 mmol/L (Abnormal) Range: 3.5-5.1 NA 137 mmol/L (Normal) Range: 136-145 BIT 0.30 mg/dL (Normal) Range: 0.00-1.00 ALK 54 U/L (Normal) Range: 50-136 ALT 35 U/L (Normal) Range: 12-78 AST 30 U/L (Normal) Range: 15-37 CA 9.4 mg/dL (Normal) Range: 8.5-10.1 AG 0.9 {RATIO} (Normal) Range: 0.9-2.4 GLOB 4.1 g/dL (Normal) Range: 2.7-4.2 ALB 3.8 g/dL (Normal) Range: 3.4-5.0 TPROT 7.9 g/dL (Normal) Range: 6.4-8.2 BC 13.1 {RATIO} (Normal) Range: 10-20 GFRAA 53 mL/min (Abnormal) GFR 44 mL/min (Abnormal) CREAT 1.3 mg/dL (Abnormal) Range: 0.6-1.0 BUN 17 mg/dL (Normal) Range: 7-18 GLU 93 mg/dL (Normal) Range: 70-110 4-Vpv-637593:30 LIPID LDL 108 mg/dL (Normal) Range: 0-130 VLDL 30 mg/dL (Normal) Range: 5-40 CHOL 199 mg/dL (Normal) Comments: <200 mg/dL Desirable 200-240 mg/dL Borderline >240 mg/dL High Risk HDL 61 mg/dL (Normal) Comments: Reference Range HDL <40 mg/dL Low HDL Cholesterol HDL >or= 60 mg/dL High HDL Cholesterol TRIG 151 mg/dL (Normal) Comments: Serum Triglycerides Reference Interval Normal <150 mg/dL Borderline high 150 - 199 mg/dL High 200 - 499 mg/dL Very High > or = 500 mg/dL 8-Czj-849602:30 MIACRE MIALB 5.8 mg/L (Normal) tMICROCREAT 9.5 {mg/g_CRE} (Normal) CREU 60.7 mg/dL (Normal) 8-Puw-393280:30 TSH 0.75 {uIU/mL} (Normal) Range: 0.358-3.74 :54 HgA1C , Office (65143) HgA1C , Office 5.5 % (Normal) Range: 4.6 - 7.1 :54 Blood Glucose , Office (60464) Blood Glucose , Office 116 (Normal) 18-Ahi-057847:26 URINE VERÓNICA CULTURE-SHARIFA COL Comments: PATIENT NOT FASTINGPERFORMED BY: [facility] Psxbyw7208 [facility] [id number] Information: SRC:UR [id number] COUNT (90541) Result 1 MUG (Normal) Comments: Mixed urogenital flora50,000-100,000 colony forming units per mL Urine Final report (Normal) Culture,Comprehensive 20-Obw-098299:46 Urinalysis, Office (99886) UA - BILIRUBIN Small (Normal) UA - BLOOD Hemolyzed Small (Normal) UA - GLUCOSE Negative (Normal) UA - KETONES Small mg/dL (Normal) UA - LEUKOCYTE ESTERASE Moderate (Normal) UA - NITRITE Negative (Normal) UA - PH 6.0 (Normal) UA - PROTEIN Trace mg/dL (Normal) UA - SPECIFIC GRAVITY 1.025 (Normal) URINE UROBILINGN SHARIFA TIMED Normal mg/dL (Normal) 20-Yby-763463:55 CHEST, PA AND LATERAL Radiology Report See Note (Normal) Comments: PROCEDURE: X-RAY CHEST REASON FOR EXAM: Female, 61 years old. Cough and shortness of breathforone week. TECHNIQUE: PA and lateral views of the chest. COMPARISON: Comparison is made with prior s desireedy dated September. FINDINGS: The lungs are hyper expanded, with flattening of the hemidiaphragms.Thereis no demonstrated parenchymal abnormality. There is evidence ofcalcifiedold granulomatou s disease. There is no demonstrated pleural abnormality. There is mild cardiac enlargement. Normal mediastinum and tabby. Normal visualized pulmonary arteries.Thereis atherosclerotic calcification of t he aortic arch with tortuosity. There are diffuse degenerative changes of the visualized thoracic spine.Normal visualized ribs, clavicles, and shoulders. There is no demonstrated abnormality of the visu alized soft tissuestructures of the upper abdomen. IMPRESSION:Hyperinflation. To consult with a radiologist regarding this report, please call our [id number] line @ Dictated on 1518 by Isiah Lan MDranscribed on 11/23/11 161 by ITS IMPORTSign by Anibal Lan MD on 11/23/11 1611 Sign by: Anibal Lan MD 79-Qaa-89780:51 Urinalysis, Office (97975) UA - BILIRUBIN Negative (Normal) UA - BLOOD Hemolyzed Small (Normal) UA - GLUCOSE Negative (Normal) UA - KETONES Negative mg/dL (Normal) UA - LEUKOCYTE ESTERASE Large (Normal) UA - NITRITE Negative (Normal) UA - PH 7.0 (Normal) UA - PROTEIN Negative mg/dL (Normal) UA - SPECIFIC GRAVITY 1.020 (Normal) URINE UROBILINGN SHARIFA TIMED 2 mg/dL (Normal) :51 HgA1C , Office (12573) HgA1C , Office 6.2 % (Normal) Range: 4.6 - 7.1 :50 Blood Glucose , Office (20648) Blood Glucose , Office 119 (Normal) :55 Urinalysis, Office (75736) UA - BILIRUBIN Negative (Normal) UA - BLOOD Hemolyzed Moderate (Normal) UA - GLUCOSE Negative (Normal) UA - KETONES Negative mg/dL (Normal) UA - LEUKOCYTE ESTERASE Large (Normal) UA - NITRITE Negative (Normal) UA - PH 6.0 (Normal) UA - PROTEIN Negative mg/dL (Normal) UA - SPECIFIC GRAVITY 1.025 (Normal) URINE UROBILINGN SHARIFA TIMED 2 mg/dL (Normal) :46 FERRITIN 321 ng/mL (Abnormal) Range: 8-252 :46 IRON+TIBC IRON 100 ug/dL (Normal) Range: 50-170 IRON SATURATION 41.7 % (Normal) Range: 15.0-55.0 TIBC 240 ug/dL (Abnormal) Range: 250-450 :55 LIVER Radiology Report See Note (Normal) Comments: PROCEDURE: ABDOMINAL ULTRASOUND - RIGHT UPPER QUADRANT REASON FOR VISIT: Female, 60 years old. Elevated liver function tests. TECHNIQUE: Ultrasound evaluation of the right upper quadrant [facility] with real-time ultrasonography and static grayscale imaging. TECHNICAL QUALITY: Adequate. COMPARISON: None. FINDINGS: Liver: Normal size of the liver. The liver measures 16.3 cm. There isnor mal echogenicity of the liver. There is no demonstrated mass lesion.There is no intrahepatic biliary ductal dilatation. Gallbladder: Normal distended gallbladder. The gallbladder wallmeasures1.2 mm. There are no demonstrated gallstones. There is nopericholecystic fluid. Common Bile Duct (C.B.D.): Normal size C.B.D. The common bile ductmeasures 3.7 mm. Pancreas: Limited visibility. Right Kidney: The right kidney measures 11.0 x 3.5 x 4.1 cm. Normalrenalcortex. There is no demonstrated renal mass or cyst. There are nodemonstrated renal calculi. There is no hydronephrosis. There is n o ascites. IMPRESSION:1. Borderline hepatomegaly.2. Normal gallbladder and common bile duct.3. Normal right kidney.4. Limited visibility of the pancreas secondary to bowel gas. Dictated on 853 by Marta PROCTOR,TheresaTranscribed on 06/24/112034 by ITS IMPORTSign by Marta PROCTOR,Gela on 06/24/112035 Sign by: Marta PROCTOR,Gela Actin (Smooth Muscle) 13 {Units} (Normal) Comments: PERFORMED BY: [employer] ProductionsFormerly [facility] [id number] :58 Antibody Range: 0-19 Comments: Negative 0 - 19 Weak positive 20 - 30 Moderate to strong positive >30 . Actin Antibodies are found in 52-85% of patients with autoimmune hepatitis or chronic active hepatitis and in 22% of patients with primary biliary cirrhosis. :58 Antinuclear Antibodies Direct Comments: PERFORMED BY: [employer] ProductionsFormer[facility] [id number] GAYATRI Direct Negative (Normal) :5 Ceruloplasmin 31.6 mg/dL (Normal) Comments: PERFORMED BY: [employer] [facility] [id number] Range: 16.0-45.0 :5 Ferritin, Serum 440 ng/mL (Abnormal) Comments: PERFORMED BY: [employer] [facility]Former[facility] [id number] Range: 13-150 :58 Hepatitis Panel (4) Comments: PERFORMED BY: [employer] [facility]Former[facility] [id number] Hep C Virus Ab 0.1 {s/co_ratio} (Normal) Range: 0.0-0.9 Comments: Negative: < 0.8 Indeterminate 0.8 - 0.9 Positive: > 0.9 . In order to reduce the incidence of a false positive result, the CDC recommends that all s/co ratios between 1.0 and 10.9 be confirmed with additional RIBA or PCR testing. Hep B Core Ab, IgM Negative (Normal) HBsAg Screen Negative (Normal) Hep A Ab, IgM Negative (Normal) 83-Shx-19820:58 Iron and TIBC Comments: PERFORMED BY: [employer] [facility] [id number] Iron Saturation 37 % (Normal) Range: 15-55 Iron, Serum 96 ug/dL (Normal) Range: 35-155 UIBC 163 ug/dL (Normal) Range: 150-375 Iron Bind.Cap.(TIBC) 259 ug/dL (Normal) Range: 250-450 :58 Platelet Count on Citrated Comments: PERFORMED BY: [employer] [facility] [id number] Bld Plt Count, Citrated Bld 216 {X10E3/uL} Range: 140-415 (Normal) 11-Jun-2011 Written Authorization WAR (Normal) Comments: PERFORMED BY: [employer] [facility] [id number] 9:58 Comments: Written Authorization Received.Authorization received from [facility] [id number] by Elina Swain :30 HgA1C , Office (78383) HgA1C , Office 6.7 % (Normal) Range: 4.6 - 7.1 :30 Blood Glucose , Office (82641) Blood Glucose , Office 159 (Normal) :15 METABOLIC PANEL, COMPREHENSIVE Comments: PATIENT WAS FASTINGPERFORMED BY: [employer] Mobilelin6370 [facility] [id number] (73683) ALT (SGPT) 51 [iU]/L (Abnormal) Range: 0-40 AST (SGOT) 50 [iU]/L (Abnormal) Range: 0-40 Alkaline Phosphatase, S 62 [iU]/L (Normal) Range: 25-165 Bilirubin, Total 0.4 mg/dL (Normal) Range: 0.0-1.2 A/G Ratio 1.1 (Normal) Range: 1.1-2.5 Globulin, Total 3.5 g/dL (Normal) Range: 1.5-4.5 Albumin, Serum 4.0 g/dL (Normal) Range: 3.6-4.8 Protein, Total, Serum 7.5 g/dL (Normal) Range: 6.0-8.5 Calcium, Serum 9.0 mg/dL (Normal) Range: 8.6-10.2 Carbon Dioxide, Total 24 mmol/L (Normal) Range: 20-32 Chloride, Serum 102 mmol/L (Normal) Range: 97-108 Potassium, Serum 4.6 mmol/L (Normal) Range: 3.5-5.2 Sodium, Serum 138 mmol/L (Normal) Range: 135-145 BUN/Creatinine Ratio 13 (Normal) Range: 11-26 eGFR If Africn Am 56 mL/min/1.73 (Abnormal) Comments: Note: A persistent eGFR <60 mL/min/1.73 m2 (3 months or more) mayindicate chronic kidney disease. An eGFR >59 mL/min/1.73 m2 with anelevated urine protein also may indicate chronic kidney disease.Calculated using CKD-EPI formula. eGFR If NonAfricn Am 49 mL/min/1.73 (Abnormal) Creatinine, Serum 1.20 mg/dL (Abnormal) Range: 0.57-1.00 BUN 15 mg/dL (Normal) Range: 8-27 Glucose, Serum 111 mg/dL (Abnormal) Range: 65-99 :15 LIPID PANEL (95936) Comments: PATIENT WAS FASTINGPERFORMED BY: MDSave6370 [facility] [id number] LDL/HDL Ratio 1.8 {ratio_units} (Normal) Range: 0.0-3.2 LDL Cholesterol Calc 85 mg/dL (Normal) Range: 0-99 VLDL Cholesterol Hillary 33 mg/dL (Normal) Range: 5-40 HDL Cholesterol 46 mg/dL (Normal) Comments: According to ATP-III Guidelines, HDL-C >59 mg/dL is considered anegative risk factor for CHD. Triglycerides 167 mg/dL (Abnormal) Range: 0-149 Cholesterol, Total 164 mg/dL (Normal) Range: 100-199 :15 CBC WITH MANUAL DIFF Comments: PATIENT WAS FASTINGPERFORMED BY: [employer] [facility] [id number] Information: [id number] (21732) Immature Grans (Abs) 0.0 {x10E3/uL} (Normal) Range: 0.0-0.1 Immature Granulocytes 0 % (Normal) Range: 0-2 Comments: Please note reference interval change Baso (Absolute) 0.0 {x10E3/uL} (Normal) Range: 0.0-0.2 Eos (Absolute) 0.4 {x10E3/uL} (Normal) Range: 0.0-0.4 Monocytes(Absolute) 0.9 {x10E3/uL} (Normal) Range: 0.1-1.0 Lymphs (Absolute) 3.0 {x10E3/uL} (Normal) Range: 0.7-4.5 Neutrophils (Absolute) 3.9 {x10E3/uL} (Normal) Range: 1.8-7.8 Basos 1 % (Normal) Range: 0-3 Eos 5 % (Normal) Range: 0-7 Monocytes 11 % (Normal) Range: 4-13 Lymphs 36 % (Normal) Range: 14-46 Neutrophils 47 % (Normal) Range: 40-74 Platelets 119 {x10E3/uL} (Abnormal) Range: 140-415 RDW 13.6 % (Normal) Range: 11.7-15.0 MCHC 33.4 g/dL (Normal) Range: 32.0-36.0 MCH 31.8 pg (Normal) Range: 27.0-34.0 MCV 95 fL (Normal) Range: 80-98 Hematocrit 42.8 % (Normal) Range: 34.0-44.0 Hemoglobin 14.3 g/dL (Normal) Range: 11.5-15.0 RBC 4.49 {x10E6/uL} (Normal) Range: 3.80-5.10 WBC 8.3 {x10E3/uL} (Normal) Range: 4.0-10.5 74-Qoz-387952:26 Hepatic Function Panel (7) Comments: PERFORMED BY: [facility]CoAtl[facility] InstituteKkvsif5872 [facility] [id number] ALT (SGPT) 63 [iU]/L (Abnormal) Range: 0-40 Alkaline Phosphatase, S 63 [iU]/L (Normal) Range: 25-165 AST (SGOT) 53 [iU]/L (Abnormal) Range: 0-40 Bilirubin, Direct 0.13 mg/dL (Normal) Range: 0.00-0.40 Bilirubin, Total 0.4 mg/dL (Normal) Range: 0.0-1.2 Albumin, Serum 4.5 g/dL (Normal) Range: 3.6-4.8 Protein, Total, Serum 7.8 g/dL (Normal) Range: 6.0-8.5 23-Mdm-977599:26 Hepatitis Panel (4) Comments: PERFORMED BY: [facility] Tlomzd9632 [facility] [id number] Hep C Virus Ab <0.1 {s/co_ratio} (Normal) Range: 0.0-0.9 Comments: Negative: < 0.8 Indeterminate 0.8 - 0.9 Positive: > 0.9 . In order to reduce the incidence of a false positive result, the CDC recommends that all s/co ratios between 1.0 and 10.9 be confirmed with additional RIBA or PCR testing. HBsAg Screen Negative (Normal) Hep B Core Ab, IgM Negative (Normal) Hep A Ab, IgM Negative (Normal) [id number] LIVER D BILI 0.11 mg/dL (Normal) Range: 0.00-0.30 T BILI 0.30 mg/dL (Normal) Range: 0.00-1.00 ALK P 57 U/L (Normal) Range: 50-136 ALT 68 U/L (Normal) Range: 12-78 ALB 4.0 g/dL (Normal) Range: 3.4-5.0 AST 53 U/L (Abnormal) Range: 15-37 T PROT 8.0 g/dL (Normal) Range: 6.4-8.2 :59 HgA1C , Office (86058) HgA1C , Office 6.6 % (Normal) Range: 4.6 - 7.1 :59 Blood Glucose , Office (56008) Blood Glucose , Office 124 (Normal) :17 HgA1C , Office (97531) HgA1C , Office 6.4 % (Normal) Range: 4.6 - 7.1 [id number] Blood Glucose , Office (97329) Blood Glucose , Office 141 (Normal) [id number] Hemoglobin Glyclated (HGB A1C) Comments: PATIENT WAS FASTINGPERFORMED BY: [facility] [facility] [id number] ([id number]) Hemoglobin A1c 6.0 % (Abnormal) Range: 4.8-5.6 Comments: Increased risk for diabetes: 5.7 - 6.4 Diabetes: >6.4 Glycemic control for adults with diabetes: <7.0 45-Ewq-[id number]:17 MICROALBUMIN: CREATININE RATIO Comments: PATIENT WAS FASTINGPERFORMED BY: [facility], llcAscension [facility]6370 [facility] [id number] ([id number]) AND (83670) Microalb/Creat Ratio 2.9 {mg/g_creat} (Normal) Range: 0.0-30.0 Creatinine, Urine 49.0 mg/dL (Normal) Range: 15.0-278.0 Microalbumin, Urine 1.4 ug/mL (Normal) Range: 0.0-17.0 68-Nwg-572888:17 METABOLIC PANEL, COMPREHENSIVE Comments: PATIENT WAS FASTINGPERFORMED BY: [employer] GroupArtesia General HospitalEabuqd2054 [facility] [id number] ([id number]) Alkaline Phosphatase, S 61 [iU]/L (Normal) Range: 25-165 ALT (SGPT) 39 [iU]/L (Normal) Range: 0-40 AST (SGOT) 41 [iU]/L (Abnormal) Range: 0-40 Bilirubin, Total 0.3 mg/dL (Normal) Range: 0.0-1.2 A/G Ratio 1.3 (Normal) Range: 1.1-2.5 Albumin, Serum 4.3 g/dL (Normal) Range: 3.6-4.8 Globulin, Total 3.4 g/dL (Normal) Range: 1.5-4.5 Protein, Total, Serum 7.7 g/dL (Normal) Range: 6.0-8.5 Calcium, Serum 9.8 mg/dL (Normal) Range: 8.6-10.2 Carbon Dioxide, Total 23 mmol/L (Normal) Range: 20-32 Chloride, Serum 99 mmol/L (Normal) Range: 97-108 Potassium, Serum 4.7 mmol/L (Normal) Range: 3.5-5.2 Sodium, Serum 137 mmol/L (Normal) Range: 135-145 BUN/Creatinine Ratio 12 (Normal) Range: 8-27 Comments: Effective November 10, 2010, Bun/Creatinine Ratio reference interval will be changing to: Age Male Female <18 years 9 - 18 - 39 years 8 - 19 06 - 40 - 59 years 9 - 9 - 60 years and older 11 - Creatinine, Serum 1.32 mg/dL (Abnormal) Range: 0.57-1.00 eGFR 41 mL/min/1.73 (Abnormal) eGFR AfricanAmerican 49 mL/min/1.73 Comments: Note: Persistent reduction for 3 months or more in an eGFR<60 mL/min/1.73 m2 defines CKD. Patients with eGFR values>/=60 mL/min/1.73 m2 may also have CKD if evidence of persistentproteinur ia is (Abnormal) present. Additional information may be found [email or web address]. BUN 16 mg/dL (Normal) Range: 5-26 Comments: Effective November 10, 2010, BUN reference interval will be changing to: 0 - 12 months 3 - 18 mg/dL 1 - 17 years 5 - 18 mg/dL 18 - 39 years 6 - 20 mg/dL 40 - 59 years 6 - 24 mg/dL 60 - 89 y ears 8 - 27 mg/dL > 89 years 10 - 36 mg/dL Glucose, Serum 116 mg/dL (Abnormal) Range: 65-99 14-Ima-249128:17 LIPID PANEL (98616) Comments: PATIENT WAS FASTINGPERFORMED BY: [facility] Pxngei3857 [facility] [id number] LDL/HDL Ratio 2.2 {ratio_units} (Normal) Range: 0.0-3.2 HDL Cholesterol 50 mg/dL (Normal) Comments: According to ATP-III Guidelines, HDL-C >59 mg/dL is considered anegative risk factor for CHD. LDL Cholesterol Calc 109 mg/dL (Abnormal) Range: 0-99 VLDL Cholesterol Hillary 56 mg/dL (Abnormal) Range: 5-40 Cholesterol, Total 215 mg/dL (Abnormal) Range: 100-199 Triglycerides 282 mg/dL (Abnormal) Range: 0-149 :17 CBC WITH MANUAL DIFF (23117) Comments: PATIENT WAS FASTINGPERFORMED BY: [facility] [id number] Immature Grans (Abs) 0.0 {x10E3/uL} (Normal) Range: 0.0-0.1 Baso (Absolute) 0.1 {x10E3/uL} (Normal) Range: 0.0-0.2 Eos (Absolute) 0.4 {x10E3/uL} (Normal) Range: 0.0-0.4 Immature Granulocytes 0 % (Normal) Range: 0-1 Monocytes(Absolute) 1.0 {x10E3/uL} (Normal) Range: 0.1-1.0 Lymphs (Absolute) 2.7 {x10E3/uL} (Normal) Range: 0.7-4.5 Neutrophils (Absolute) 4.4 {x10E3/uL} (Normal) Range: 1.8-7.8 Basos 1 % (Normal) Range: 0-3 Eos 4 % (Normal) Range: 0-7 Lymphs 32 % (Normal) Range: 14-46 Monocytes 11 % (Normal) Range: 4-13 Neutrophils 52 % (Normal) Range: 40-74 Platelets 289 {x10E3/uL} (Normal) Range: 140-415 MCH 31.6 pg (Normal) Range: 27.0-34.0 MCHC 32.9 g/dL (Normal) Range: 32.0-36.0 MCV 96 fL (Normal) Range: 80-98 RDW 13.3 % (Normal) Range: 11.7-15.0 Hematocrit 45.6 % (Abnormal) Range: 34.0-44.0 Hemoglobin 15.0 g/dL (Normal) Range: 11.5-15.0 RBC 4.75 {x10E6/uL} (Normal) Range: 3.80-5.10 WBC 8.6 {x10E3/uL} (Normal) Range: 4.0-10.5 85-Xjn-730569:57 Folic Acid Serum (31540) Comments: PATIENT NOT FASTINGPERFORMED BY: Qnect, llcCoQlibriin [place] [id number] Folate (Folic Acid), Serum 12.6 ng/mL (Normal) Comments: Indeterminate: 2.2 - 3.0Deficient: <2.2 32-Osd-650502:57 Vitamin B-12 (cyanocobalamin) Comments: PATIENT NOT FASTINGPERFORMED BY: [facility]6370 [facility] [id number] ([id number]) Vitamin B12 551 pg/mL (Normal) Range: 211-946 12-Wdk-848781:57 CBC with manual diff Comments: PATIENT NOT FASTINGPERFORMED BY: [facility]6370 [facility] [id number] Information: [id number] (92850) Baso (Absolute) 0.1 {x10E3/uL} (Normal) Range: 0.0-0.2 Eos (Absolute) 0.4 {x10E3/uL} (Normal) Range: 0.0-0.4 Immature Grans (Abs) 0.0 {x10E3/uL} (Normal) Range: 0.0-0.1 Immature Granulocytes 0 % (Normal) Range: 0-1 Lymphs (Absolute) 2.9 {x10E3/uL} (Normal) Range: 0.7-4.5 Monocytes(Absolute) 1.1 {x10E3/uL} (Abnormal) Range: 0.1-1.0 Neutrophils (Absolute) 4.9 {x10E3/uL} (Normal) Range: 1.8-7.8 Basos 1 % (Normal) Range: 0-3 Eos 4 % (Normal) Range: 0-7 Monocytes 12 % (Normal) Range: 4-13 Lymphs 30 % (Normal) Range: 14-46 Neutrophils 53 % (Normal) Range: 40-74 Platelets 309 {x10E3/uL} (Normal) Range: 140-415 MCH 31.2 pg (Normal) Range: 27.0-34.0 MCHC 33.3 g/dL (Normal) Range: 32.0-36.0 MCV 94 fL (Normal) Range: 80-98 RDW 12.7 % (Normal) Range: 11.7-15.0 Hematocrit 42.3 % (Normal) Range: 34.0-44.0 Hemoglobin 14.1 g/dL (Normal) Range: 11.5-15.0 RBC 4.52 {x10E6/uL} (Normal) Range: 3.80-5.10 WBC 9.4 {x10E3/uL} (Normal) Range: 4.0-10.5 65-Nrp-261233:57 Metabolic Panel, Comprehensive Comments: PATIENT NOT FASTINGPERFORMED BY: LabCoAtlantic Rehabilitation InstituteDmrcip2664 [facility] [id number] (53497) ALT (SGPT) 18 [iU]/L (Normal) Range: 0-40 AST (SGOT) 24 [iU]/L (Normal) Range: 0-40 A/G Ratio 1.3 (Normal) Range: 1.1-2.5 Albumin, Serum 4.2 g/dL (Normal) Range: 3.6-4.8 Alkaline Phosphatase, S 51 [iU]/L (Normal) Range: 25-165 Bilirubin, Total 0.3 mg/dL (Normal) Range: 0.0-1.2 Globulin, Total 3.2 g/dL (Normal) Range: 1.5-4.5 Protein, Total, Serum 7.4 g/dL (Normal) Range: 6.0-8.5 Calcium, Serum 9.6 mg/dL (Normal) Range: 8.6-10.2 Carbon Dioxide, Total 26 mmol/L (Normal) Range: 20-32 Chloride, Serum 100 mmol/L (Normal) Range: 97-108 Potassium, Serum 4.6 mmol/L (Normal) Range: 3.5-5.2 Sodium, Serum 138 mmol/L (Normal) Range: 135-145 BUN/Creatinine Ratio 9 (Normal) Range: 8-27 eGFR 39 mL/min/1.73 (Abnormal) eGFR AfricanAmerican 47 mL/min/1.73 Comments: Note: Persistent reduction for 3 months or more in an eGFR<60 mL/min/1.73 m2 defines CKD. Patients with eGFR values>/=60 mL/min/1.73 m2 may also have CKD if evidence of persistentproteinur ia is (Abnormal) present. Additional information may be found [email or web address]. BUN 12 mg/dL (Normal) Range: 5-26 Creatinine, Serum 1.38 mg/dL (Abnormal) Range: 0.57-1.00 Glucose, Serum 105 mg/dL (Abnormal) Range: 65-99 :57 DRUG ASSAY-LITHIUM (97599) Comments: PATIENT NOT FASTINGPERFORMED BY: [facility]6370 [facility] [id number] [place] (Eskal[place]), Serum 1.0 mmol/L (Normal) Range: 0.6-1.4 Comments: Detection Limit = 0.1<0.1 indicates None Detected :57 T4, FREE (THYROXINE) (53797) Comments: PATIENT NOT FASTINGPERFORMED BY: [place] [id number] [facility] [id number] T4,Free(Direct) 1.17 ng/dL (Normal) Range: 0.82-1.77 :57 T3, FREE (TRIDOTHYRONINE) (05891) Comments: PATIENT NOT FASTINGPERFORMED BY: [facility]6370 [facility] [id number] Triiodothyronine,Free,Serum 2.1 pg/mL (Normal) Range: 2.0-4.4 :57 TSH (86880) Comments: PATIENT NOT FASTINGPERFORMED BY: [facility]6370 [facility] [id number] TSH 4.080 {uIU/mL} (Normal) Range: 0.450-4.500 :43 HgA1C , Office (33998) HgA1C , Office 5.3 % (Normal) Range: 4.6 - 7.1 :43 Blood Glucose , Office (81794) Blood Glucose , Office 125 (Normal) :4 LI 1.05 mmol/L (Normal) Comments: Therapeutic Range: 0.60 - 1.20 2 :26 COMP METABOLIC GAP 7 (Normal) Range: 5-15 A/G 0.8 {RATIO} (Abnormal) Range: 0.9-2.4 ALB 3.5 g/dL (Normal) Range: 3.4-5.0 ALK P 64 U/L (Normal) Range: 50-136 ALT 22 U/L (Normal) Range: 12-78 AST 16 U/L (Normal) Range: 15-37 CA 9.3 mg/dL (Normal) Range: 8.5-10.1 CL 100 mmol/L (Normal) Range: 98-107 CO2 30.0 mmol/L (Normal) Range: 21.0-32.0 GLOB 4.4 g/dL (Abnormal) Range: 2.7-4.2 K 4.4 mmol/L (Normal) Range: 3.5-5.1 NA 137 mmol/L (Normal) Range: 136-145 T BILI 0.30 mg/dL (Normal) Range: 0.00-1.00 T PROT 7.9 g/dL (Normal) Range: 6.4-8.2 BUN 11 mg/dL (Normal) Range: 7-18 BUN/CRE 7.9 {RATIO} (Abnormal) Range: 10-20 CREAT,SERUM 1.4 mg/dL (Abnormal) Range: 0.6-1.0 EST GFR 41 mL/min (Abnormal) EST GFR - AA 50 mL/min (Abnormal) GLU 84 mg/dL (Normal) Range: 70-110 :26 T4 FREE DIRECT 1.17 ng/dL (Normal) Range: 0.76-1.46 :26 TSH 3.88 {uIU/mL} (Abnormal) Range: 0.358-3.74 :42 BMP BUN 14 mg/dL (Normal) Range: 7-18 BUN/CRE 10.8 {RATIO} (Normal) Range: 10-20 CA 9.6 mg/dL (Normal) Range: 8.5-10.1 CL 101 mmol/L (Normal) Range: 98-107 CO2 25.0 mmol/L (Normal) Range: 21.0-32.0 CREAT,SERUM 1.3 mg/dL (Abnormal) Range: 0.6-1.0 EST GFR 44 mL/min (Abnormal) EST GFR - AA 53 mL/min (Abnormal) GAP 11 (Normal) Range: 5-15 K 4.2 mmol/L (Normal) Range: 3.5-5.1 NA 137 mmol/L (Normal) Range: 136-145 GLU 84 mg/dL (Normal) Range: 70-110 71-Ifg-357012:42 LI 0.60 mmol/L (Normal) Comments: Therapeutic Range: 0.60 - 1.20 35-Zyq-329723:58 Thin prep Pap Comments: Source.............Cervical;EndocervicalNo. of containers..01 CYTYC Thin Prep VialPATIENT NOT FASTINGPERFORMED BY: [facility] [id number] Information: [id number] (08251) Note: PAPSMR (Normal) Comments: The Pap smear is a screening test designed to aid in the detection ofpremalignant and malignant conditions of the uterine cervix. It is not adiagnostic procedure and should not be used as the sole mean s of detectingcervical cancer. Both false-positive and false-negative reports do occur..The HPV DNA reflex criteria were not met with this specimen resulttherefore, no HPV testing was performed.. See Note . (Normal) DIAGNOSIS: SPRCS (Normal) Comments: NEGATIVE FOR INTRAEPITHELIAL LESION AND MALIGNANCY.CELLULAR CHANGES ASSOCIATED WITH ATROPHY ARE PRESENT.Satisfactory for evaluation. Endocervical component may not bedistinguished in cases of atrophy.V 72.31 ; Routine gynecological examinationRita Gonzalez Potato Loader (ASCP) 90-Yug-768053:00 TSH (56968) Comments: PATIENT NOT FASTINGPERFORMED BY: [facility]6370 [facility] [id number] TSH 3.440 {uIU/mL} (Normal) Range: 0.450-4.500 88-Enw-253409:00 CBC (Auto) (23186) Comments: PATIENT NOT FASTINGPERFORMED BY: [facility]6370 [facility] [id number] Information: [id number] Platelets 258 {x10E3/uL} (Normal) Range: 140-415 RDW 13.6 % (Normal) Range: 11.7-15.0 Hematocrit 43.5 % (Normal) Range: 34.0-44.0 MCH 31.6 pg (Normal) Range: 27.0-34.0 MCHC 33.6 g/dL (Normal) Range: 32.0-36.0 MCV 94 fL (Normal) Range: 80-98 Hemoglobin 14.6 g/dL (Normal) Range: 11.5-15.0 RBC 4.61 {x10E6/uL} (Normal) Range: 3.80-5.10 WBC 8.6 {x10E3/uL} (Normal) Range: 4.0-10.5 05-Yun-430297:00 Metabolic Panel, Basic Comments: PATIENT NOT FASTINGPERFORMED BY: LabCoAtlantic Rehabilitation InstitutePmjwyn4356 [facility] [id number] (65874) Calcium, Serum 9.1 mg/dL (Normal) Range: 8.6-10.2 Carbon Dioxide, Total 22 mmol/L (Normal) Range: 20-32 Chloride, Serum 100 mmol/L (Normal) Range: 97-108 Potassium, Serum 4.3 mmol/L (Normal) Range: 3.5-5.2 BUN/Creatinine Ratio 9 (Normal) Range: 8-27 eGFR AfricanAmerican 42 mL/min/1.73 Comments: Note: Persistent reduction for 3 months or more in an eGFR<60 mL/min/1.73 m2 defines CKD. Patients with eGFR values>/=60 mL/min/1.73 m2 may also have CKD if evidence of persistentproteinur ia is (Abnormal) present. Additional information may be found [email or web address]. Sodium, Serum 137 mmol/L (Normal) Range: 135-145 BUN 13 mg/dL (Normal) Range: 5-26 Creatinine, Serum 1.51 mg/dL (Abnormal) Range: 0.57-1.00 eGFR 35 mL/min/1.73 (Abnormal) Glucose, Serum 111 mg/dL (Abnormal) Range: 65-99 63-Izg-127809:00 DRUG ASSAY-LITHIUM (97684) Comments: all these labs standing order prn; PATIENT NOT FASTINGPERFORMED BY: LabCoAtl[facility] Rehabilitation InstituteFaxwqm3353 [facility] [id number] [place] (Eskal[place]), Serum 0.9 mmol/L (Normal) Range: 0.6-1.4 Comments: Detection Limit = 0.1<0.1 indicates None Detected 43-Qoo-28482:16 METABOLIC PANEL, COMPREHENSIVE Comments: PATIENT NOT FASTINGPERFORMED BY: LabCoAtl[facility] Rehabilitation InstituteOrqtes9530 [place] [facility] [id number] (60266) A/G Ratio 1.3 (Normal) Range: 1.1-2.5 Alkaline Phosphatase, S 68 [iU]/L (Normal) Range: 25-165 ALT (SGPT) 30 [iU]/L (Normal) Range: 0-40 AST (SGOT) 29 [iU]/L (Normal) Range: 0-40 Bilirubin, Total 0.3 mg/dL (Normal) Range: 0.1-1.2 Comments: Effective February 24, 2010, Bilirubin, Total,reference interval will be changing to: mg/dLNewborns, term and near term:24 hours old: 0.0 - 8.048 hours old: 0.0 - 13.272 hours old: 0.0 - 15.696 hours to 1 month old: 0.0 - 16.6Children 1 month and older andAdults: 0.0 - 1.2.*Panic value will be changed such that results*>17.0 mg/dL will be called as panics. Albumin, Serum 4.1 g/dL (Normal) Range: 3.6-4.8 Globulin, Total 3.1 g/dL (Normal) Range: 1.5-4.5 Calcium, Serum 9.1 mg/dL (Normal) Range: 8.6-10.2 Carbon Dioxide, Total 22 mmol/L (Normal) Range: 20-32 Protein, Total, Serum 7.2 g/dL (Normal) Range: 6.0-8.5 BUN/Creatinine Ratio 8 (Normal) Range: 8-27 Chloride, Serum 103 mmol/L (Normal) Range: 97-108 Potassium, Serum 3.9 mmol/L (Normal) Range: 3.5-5.2 Sodium, Serum 139 mmol/L (Normal) Range: 135-145 Creatinine, Serum 1.35 mg/dL (Abnormal) Range: 0.57-1.00 eGFR 40 mL/min/1.73 (Abnormal) eGFR AfricanAmerican 48 mL/min/1.73 Comments: Note: Persistent reduction for 3 months or more in an eGFR<60 mL/min/1.73 m2 defines CKD. Patients with eGFR values>/=60 mL/min/1.73 m2 may also have CKD if evidence of persistentproteinur ia is (Abnormal) present. Additional information may be found [email or web address]. BUN 11 mg/dL (Normal) Range: 5-26 Glucose, Serum 207 mg/dL (Abnormal) Range: 65-99 91-Hwk-72984:16 CBC WITH MANUAL DIFF Comments: PATIENT NOT FASTINGPERFORMED BY: LabCoAtl[facility] Rehabilitation InstituteAqagtr3138 [facility] [id number] Information: [id number] (62098) Baso (Absolute) 0.1 {x10E3/uL} (Normal) Range: 0.0-0.2 Eos (Absolute) 0.3 {x10E3/uL} (Normal) Range: 0.0-0.4 Monocytes(Absolute) 0.7 {x10E3/uL} (Normal) Range: 0.1-1.0 Lymphs (Absolute) 2.4 {x10E3/uL} (Normal) Range: 0.7-4.5 Neutrophils (Absolute) 5.1 {x10E3/uL} (Normal) Range: 1.8-7.8 Basos 1 % (Normal) Range: 0-3 Eos 4 % (Normal) Range: 0-7 Lymphs 28 % (Normal) Range: 14-46 Monocytes 8 % (Normal) Range: 4-13 MCH 31.9 pg (Normal) Range: 27.0-34.0 MCHC 33.8 g/dL (Normal) Range: 32.0-36.0 Neutrophils 59 % (Normal) Range: 40-74 Platelets 240 {x10E3/uL} (Normal) Range: 140-415 RDW 13.6 % (Normal) Range: 11.7-15.0 Hematocrit 42.5 % (Normal) Range: 34.0-44.0 Hemoglobin 14.4 g/dL (Normal) Range: 11.5-15.0 MCV 95 fL (Normal) Range: 80-98 RBC 4.50 {x10E6/uL} (Normal) Range: 3.80-5.10 WBC 8.7 {x10E3/uL} (Normal) Range: 4.0-10.5 :16 MICROALBUMIN: CREATININE RATIO Comments: PATIENT NOT FASTINGPERFORMED BY: [facility]6370 [facility] [id number] ([id number]) AND (52529) Microalb/Creat Ratio 6.2 {mg/g_creat} (Normal) Range: 0.0-30.0 Microalbumin, Urine 2.5 ug/mL (Normal) Range: 0.0-17.0 Creatinine, Urine 40.1 mg/dL (Normal) Range: 15.0-278.0 :38 HgA1C , Office (58195) HgA1C , Office 6.6 % (Normal) Range: 4.6 - 7.1 :38 Blood Glucose , Office (83324) Blood Glucose , Office 214 (Normal) 87-Rda-506236:05 URINE VERÓNICA CULTURE-IDENTIFICATN Comments: PATIENT NOT FASTINGPERFORMED BY: LabAsc[facility]6370 [facility] [id number] Information: [id number] (70554) Antimicrobial MIHEAD (Normal) Comments: S = Susceptible; I = Intermediate; R = Resistant P = Positive; N = NegativeMICS are expressed in micrograms per mLAntibiotic RSLT#1 RSLT#2 RSLT#3 RSLT#4Am oxicillin/Cl Susceptibility avulanic Acid SAmpicillin SCefepime SCeftriaxone SCefuroxime SCephalothin SCiprofloxacin SESBL NGentamicin SImipenem SLevofloxacin SNitrofurantoin SPiperacillin/Tazobactam Danish tracycline STobramycin STrimethoprim/Sulfa S Result 1 Escherichia coli Comments: Greater than 100,000 colony forming units per mL (Normal) Urine Final report (Normal) Culture,Comprehensive 78-Sie-326391:23 CHEST, PA AND LATERAL (MT) Radiology Report See Note (Normal) Comments: Exam Number: [id number] CLINICAL:58-year-old female with cough, pain and shortness of breath. X-RAY EXAMINATION: CHEST TECHNIQUE:PA and Lateral views of the chest. COMPARISON:No previous studies are imme diately available for comparison. FINDINGS:The lungs are under aerated on the frontal projection due to poor inspiration. An ill-defined density is seen overlying the left heart border which may be an area of atelectasis. It is not identified on the lateral projection is a focal area of consolidation. The remaining lung nowak are clear. No focal masses. There are no pleural effusions. The heart is normal in size and morphology. Normal visualized aortic arch and descending thoracic aorta. There is no demonstrated mediastinal or hilar abnormality. The pulmonary vascularity is slightly prominen t but I believe reflects the poor inspiration on the frontal projection. It appears normal on the lateral view. The visualized osseous structures are unremarkable. IMPRESSION:Subtle left lower lobe de nsity that I believe probably represents some atelectasis due to poor inspiration on the frontal projection. The examination is otherwise unremarkable. Reported By: SISI MART Dr. :23 B.pertussisB.parapertussis PCR Comments: PERFORMED BY: ELIESER QjxlKaj0563 [facility] [id number] Bordetella parapertussis DNA Negative (Normal) Comments: .This test was developed and its performance characteristics determinedby [employer]. It has not been cleared or approved by theU.S. Food and Drug Administration. The FDA has determined that s uchclearance or approval is not necessary. This test is used for clinicalpurposes. It should not be regarded as investigational or research. Bordetella pertussis DNA Negative (Normal) :50 HgA1C , Office (59694) HgA1C , Office 5.5 % (Normal) Range: 4.6 - 7.1 :50 Blood Glucose , Office (71761) Blood Glucose , Office 90 (Normal) :33 HgA1C , Office (31102) HgA1C , Office 5.6 % (Normal) Range: 4.6 - 7.1 :41 HgA1C , Office (58517) HgA1C , Office 5.5 % (Normal) Range: 4.6 - 7.1 Comments: cyril :41 Blood Glucose , Office (09886) Comments: 89 Blood Glucose , Office 89 (Normal) Comments: aw :15 CBC HCT 42.8 % (Normal) Range: 37-47 HGB 14.5 g/dL (Normal) Range: 12.0-16.0 MCH 31.7 pg (Normal) Range: 27.0-32.0 MCHC 33.9 g/dL (Normal) Range: 32-36 MCV 93.3 fL (Normal) Range: 81-99 MPV 8.2 fL (Normal) Range: 6.5-12.0 PLT 300 K/mm3 (Normal) Range: 150-450 RBC 4.58 {M/mm3} (Normal) Range: 4.2-5.4 RDW 12.4 % (Normal) Range: 11.6-14.6 WBC 6.4 K/mm3 (Normal) Range: 4.4-11.0 :15 COMP METABOLIC A/G 0.9 {RATIO} (Normal) Range: 0.9-2.4 ALB 3.6 g/dL (Normal) Range: 3.4-5.0 ALK P 60 U/L (Normal) Range: 50-136 ALT 32 [iU]/L (Normal) Range: 30-65 AST 18 U/L (Normal) Range: 15-37 BUN 12 mg/dL (Normal) Range: 7-18 BUN/CRE 9.2 {RATIO} (Abnormal) Range: 10-20 CA 9.2 mg/dL (Normal) Range: 8.5-10.1 CL 101 mmol/L (Normal) Range: 98-107 CO2 32.9 mmol/L (Abnormal) Range: 21.0-32.0 Comments: Please Note Reference Interval Change CREAT,SERUM 1.3 mg/dL (Abnormal) Range: 0.6-1.0 GAP 4 (Abnormal) Range: 5-15 GLOB 3.9 g/dL (Normal) Range: 2.7-4.2 Comments: Please Note Reference Interval Change GLU 97 mg/dL (Normal) Range: 70-110 K 4.4 mmol/L (Normal) Range: 3.5-5.1 NA 138 mmol/L (Normal) Range: 136-145 T BILI 0.37 mg/dL (Normal) Range: 0.00-1.00 T PROT 7.5 g/dL (Normal) Range: 6.4-8.2 :15 LIPID CHOL 189 mg/dL (Normal) Comments: <200 mg/dL Desirable 200-240 mg/dL Borderline >240 mg/dL High Risk HDL 46 mg/dL (Normal) Comments: Reference Range HDL <40 mg/dL Low HDL Cholesterol HDL >or= 60 mg/dL High HDL Cholesterol LDL 104 mg/dL (Normal) Range: 0-130 TRIG 194 mg/dL (Normal) Comments: Serum Triglycerides Reference Interval Normal <150 mg/dL Borderline high 150 - 199 mg/dL High 200 - 499 mg/dL Very High > or = 500 mg/dL VLDL 39 mg/dL (Normal) Range: 5-40 :15 TSH 0.88 {uIU/mL} (Normal) Range: 0.34-4.82 :42 HgA1C , Office (46531) HgA1C , Office 5.4 % (Normal) Range: 4.6 - 7.1 :42 Blood Glucose , Office (83387) Blood Glucose , Office 103 (Normal) :20 CBC HCT 44.0 % (Normal) Range: 37-47 HGB 15.2 g/dL (Normal) Range: 12.0-16.0 MCH 31.7 pg (Normal) Range: 27.0-32.0 MCHC 34.6 g/dL (Normal) Range: 32-36 MCV 91.5 fL (Normal) Range: 81-99 PLT 306 K/mm3 (Normal) Range: 150-450 RBC 4.81 {M/mm3} (Normal) Range: 4.2-5.4 RDW 12.2 % (Normal) Range: 11.6-14.6 WBC 6.7 K/mm3 (Normal) Range: 4.4-11.0 :20 COMP METABOLIC A/G 1.0 {RATIO} (Normal) Range: 0.9-2.4 ALB 4.0 g/dL (Normal) Range: 3.4-5.0 ALK P 65 U/L (Normal) Range: 50-136 ALT 52 [iU]/L (Normal) Range: 30-65 AST 33 U/L (Normal) Range: 15-37 BUN 15 mg/dL (Normal) Range: 7-18 BUN/CRE 11.5 {RATIO} (Normal) Range: 10-20 CA 9.3 mg/dL (Normal) Range: 8.5-10.1 CL 96 mmol/L (Abnormal) Range: 98-107 CO2 29.7 mmol/L (Abnormal) Range: 22.0-29.0 CREAT,SERUM 1.3 mg/dL (Abnormal) Range: 0.6-1.0 GAP 9 (Normal) Range: 5-15 GLOB 4.0 g/dL (Abnormal) Range: 2.3-3.5 GLU 98 mg/dL (Normal) Range: 70-110 K 3.4 mmol/L (Abnormal) Range: 3.5-5.1 NA 135 mmol/L (Abnormal) Range: 136-145 T BILI 0.53 mg/dL (Normal) Range: 0.00-1.00 T PROT 8.0 g/dL (Normal) Range: 6.4-8.2 [id number] LIPID CHOL 148 mg/dL (Normal) Comments: <200 mg/dL Desirable 200-240 mg/dL Borderline >240 mg/dL High Risk HDL 42 mg/dL (Normal) Comments: Reference Range HDL <40 mg/dL Low HDL Cholesterol HDL >or= 60 mg/dL High HDL Cholesterol LDL 76 mg/dL (Normal) Range: 0-130 TRIG 152 mg/dL (Normal) Comments: Serum Triglycerides Reference Interval Normal <150 mg/dL Borderline high 150 - 199 mg/dL High 200 - 499 mg/dL Very High > or = 500 mg/dL VLDL 30 mg/dL (Normal) Range: 5-40 [id number] ROUTINE UA BILIRUBIN URINE SeeNote (Normal) Comments: Result: NEGATIVE CLARITY CLOUDY (Normal) COLOR YELLOW (Normal) GLUCOSE, UR SeeNote (Normal) Comments: Result: NEGATIVE KETONE UR SeeNote mg/dL (Normal) Comments: Result: NEGATIVE LEUK ESTERASE 1+ (Abnormal) NITRITE UR SeeNote (Normal) Comments: Result: NEGATIVE OCCULT BLOOD-UR SeeNote (Normal) Comments: Result: NEGATIVE pH UR 6.5 (Normal) Range: 5.0-8.0 PROT DIPSTX SeeNote (Normal) Comments: Result: NEGATIVE SP.GR. DIPSTX <=1.005 (Normal) Range: 1.002-1.030 UROBILI 0.2 EU/dl (Normal) Range: 0.2 - 1.0 [id number] THYROID (HP) Radiology Report See Note (Normal) Comments: Exam Number: [id number] THYROID ULTRASOUND HISTORYGoiter. There is borderline increase in size of the thyroid. The rightthyroid lobe measures 5.1 x 1.3 x 1.5 cm. The left thyroid lobemeasur es 5 x 0.9 x 1.7 cm. The isthmus measures 2-3 mm. On theright, there are 2 small nodules identified. Superiorly, there is anodule which measures 3 x 2 x 3 mm, unchanged from the previous study.Inferiorly, there is a nodule measuring 3 x 2 x 3 mm, also unchangedfrom the previous examination. No focal nodules are seen on the left.The findings are most likely to represent mild changes ofmultinodular goiter which have not significantly changed from theexamination of May 03, 2007. Reported By: PETRONA REGALADO M.D. [id number] MAMM, UILAT DIAG DIGITAL & CAD Radiology Report See Note (Normal) Comments: Exam Number: [id number] UNILATERAL LEFT DIAGNOSTIC MAMMOGRAPHY CLINICAL STATEMENTLeft breast density. COMPARISONComparison mammography of May 03, 2007 and February 11, 2005 and 2005. The patient r eturns for spot compression views of the left breast. Repeat craniocaudal and exaggerated craniocaudal views were alsoacquired. Additional views fail to demonstrate the density inquestion on the prior study. The findings previously may have beensecondary to partial inclusion of the sternalis muscle. True breastdensity is not redemonstrated on today's additional views. To ensurestability, a 6-month followup, however, would be recommended forreevaluation. IMPRESSION1. Nodular density in question is not reproduced and may have beensecondary to sternalis muscle. Followup study in 6 months would berecommended to confirm stability.2. BIRADS code 3. Probably benign. Followup left breast mammogram in 6 months. A letter regarding these results has been sent to the patient. This interpretation was rendered by a radiologist certified underthe Mammography Quality Standards Act of 1992 (MQSA). The mammogramswere also examined with computer-aided detection software([employer].). Reported By: REID KRUEGER M.D. [id number]: TSH 0.94 {uIU/mL} Range: 0.34-4.82 50 (Normal) :06 MAMM, BILAT SCRN DIGITAL & CAD Radiology Report See Note (Normal) Comments: Exam Number: [id number] MAMMOGRAM, BILATERAL SCREENING DIGITAL AND CAD HISTORYRoutine screening. Full field digital images were obtained in mediolateral oblique andcraniocaudal projections. CAD images w ere reviewed. The current study is compared to the examinations of January 2005 andJanuary 2006. There is moderately dense fibroglandular parenchyma present. There isno skin thickening or retraction, archi tectural distortion, or clusterof suspicious microcalcifications. There is a small density in theouter left breast also seen on the examination of February 11, 2005. Inthe left craniocaudal projection, t here is an apparent density againstthe chest wall just lateral to the plane of the nipple. This is seenthrough the pectoral muscle and may represent part of the muscleitself. For further evaluation, a repeat craniocaudal and spotcraniocaudal views are recommended. IMPRESSIONApparent density seen against the chest wall in the left craniocaudalprojection. Additional views are recommended. FINAL ASSES SMENTNeed additional imaging evaluation. BIRADS Category 0. A letter regarding these results has been sent to the patient. This interpretation was rendered by a radiologist certified under [facility] Quality Standards Act of 1992 (MQSA). The mammograms werealso examined with computer-aided detection software (IM5.). Reported By: PETRONA REGALADO M.D. :05 THYROID (HP) Radiology Report See Note (Normal) Comments: Exam Number: [id number] THYROID ULTRASOUND HISTORYGoiter. High resolution real time linear images were obtained. The thyroid ismildly enlarged. The right lobe of the thyroid measures 5.1 x 1.2 x1.3 cm. The left lobe measures 4.9 x 0.8 x 1.3 cm. The isthmusmeasures 2-3 mm which is normal. On the right, there are 2 veryhypoechoic nodules identified. Superiorly is a nodule measuring 3 x 2x 3 mm. In feriorly is a small nodule measuring 3 x 2 x 3 mm. Nonodules are seen on the left. The findings are most likely torepresent multinodular goiter. For further evaluation, follow-upultrasound in 6 month s could be obtained. IMPRESSIONThere is mild enlargement of the thyroid. There are 2 smallhypoechoic nodules on the right. The findings are most likely torepresent multinodular goiter. If indicated c linically, a follow-upultrasound could be obtained in 6 months. Reported By: PETRONA REGALADO M.D. 59-Kbw-307856:22 HgA1C , Office (49197) HgA1C , Office 5.9 % (Normal) Range: 4.6 - 7.1 28-Qis-903141:22 Blood Glucose , Office (62287) Blood Glucose , Office 88 (Normal) Plan of Care Name Dates Details Instructions Chest pain : Reviewed Lab Indication: Chest pain Bronchiectasis : Reviewed Lab Indication: Bronchiectasis Non-smoker : Follow up if no improvement or if symptoms worsen Indication: Non-smoker Non-smoker : Eprescribed prescriptions (G8553) Indication: Non-smoker BMI 32.0-32.9,adult : Follow up in 10days Indication: BMI 32.0-32.9,adult Nonsmoker : Eprescribed prescriptions (G8553) Indication: Nonsmoker Pain in both knees, unspecified chronicity : Follow up if no improvement or if symptoms worsen Indication: Pain in both knees, unspecified chronicity BMI 32.0-32.9,adult : Eprescribed prescriptions (G8553) Indication: BMI 32.0-32.9,adult BMI 32.0-32.9,adult : Follow up in 3 months Indication: BMI 32.0-32.9,adult Osteoarthritis : Reviewed Lab Indication: Osteoarthritis Osteoarthritis : Reviewed Diagnostic Tests Indication: Osteoarthritis Neuropathic pain : Eprescribed prescriptions (G8553) Indication: Neuropathic pain Bilateral leg numbness : Follow up - Make appt after diagnostic tests Indication: Bilateral leg numbness BMI 34.0-34.9,adult : Eprescribed prescriptions (G8553) Indication: BMI 34.0-34.9,adult Sore mouth : Follow up if no improvement or if symptoms worsen Indication: Sore mouth Candidiasis : Thrush: oral candidiasis Indication: Candidiasis Current nonsmoker (Renamed from Current non-smoker) : Eprescribed prescriptions (G8553) Indication: Current nonsmoker (Renamed from Current non-smoker) BMI 34.0-34.9,adult : Follow up in 1 month Indication: BMI 34.0-34.9,adult Current nonsmoker (Renamed from Current non-smoker) : Eprescribed prescriptions (G8553) Indication: Current nonsmoker (Renamed from Current non-smoker) Current nonsmoker (Renamed from Current non-smoker) : Follow up in 2 weeks Indication: Current nonsmoker (Renamed from Current non-smoker) Bilateral leg numbness : Eprescribed prescriptions (G8553) Indication: Bilateral leg numbness Low back pain potentially associated with radiculopathy : Reviewed Diagnostic Tests Indication: Low back pain potentially associated with radiculopathy Cough : Follow up if no improvement or if symptoms worsen Indication: Cough Bronchitis : Continue Current Prescription(s) Indication: Bronchitis BMI 36.0-36.9,adult : Eprescribed prescriptions (G8553) Indication: BMI 36.0-36.9,adult Current nonsmoker (Renamed from Current non-smoker) : Follow up in 3 months Indication: Current nonsmoker (Renamed from Current non-smoker) Vitamin D deficiency (Renamed from Avitaminosis D) : Reviewed Lab Indication: Vitamin D deficiency (Renamed from Avitaminosis D) Craving for particular food : Reviewed Diagnostic Tests Indication: Craving for particular food Diabetes mellitus type II, controlled : Reviewed Lab Indication: Diabetes mellitus type II, controlled Stress incontinence, female : Reviewed Live Out Nanny Letter Indication: Stress incontinence, female Diabetes mellitus type II, controlled : Eprescribed prescriptions (G8553) Indication: Diabetes mellitus type II, controlled Polypharmacy : Follow up in 3 weeks Indication: Polypharmacy Shortness of breath : Continue Current Prescription(s) Indication: Shortness of breath Shortness of breath : Continue Current Prescription(s) Indication: Shortness of breath Asthma with acute exacerbation : Solu Medrol Injection/ Education Indication: Asthma with acute exacerbation Asthma with acute exacerbation : Solu Medrol Injection/ Education Indication: Asthma with acute exacerbation Shortness of breath : Eprescribed prescriptions (G8553) Indication: Shortness of breath Osteoarthritis of both knees, unspecified osteoarthritis type : Knee Injections- Left knee Indication: Osteoarthritis of both knees, unspecified osteoarthritis type Diabetes mellitus type II, controlled : Follow up in 4 months Indication: Diabetes mellitus type II, controlled Diabetes mellitus type II, controlled : Eprescribed prescriptions (G8553) Indication: Diabetes mellitus type II, controlled Acute bilateral low back pain without sciatica : Eprescribed prescriptions (G8553) Indication: Acute bilateral low back pain without sciatica Current nonsmoker (Renamed from Current non-smoker) : Follow up if no improvement or if symptoms worsen Indication: Current nonsmoker (Renamed from Current non-smoker) Current nonsmoker (Renamed from Current non-smoker) : Eprescribed prescriptions (G8553) Indication: Current nonsmoker (Renamed from Current non-smoker) Urinary Incontinence (Renamed from Absence of bladder continence) : Follow up in 3 months Indication: Urinary Incontinence (Renamed from Absence of bladder continence) Diabetes mellitus type II, controlled : Eprescribed prescriptions (G8553) Indication: Diabetes mellitus type II, controlled Hypertension (Renamed from BP (high blood pressure)) : Reviewed Lab Indication: Hypertension (Renamed from BP (high blood pressure)) Pain in both knees, unspecified chronicity : Reviewed Diagnostic Tests Indication: Pain in both knees, unspecified chronicity BMI 32.0-32.9,adult : Follow up if no improvement or if symptoms worsen Indication: BMI 32.0-32.9,adult Osteoarthritis of both knees, unspecified osteoarthritis type : Knee Injections Indication: Osteoarthritis of both knees, unspecified osteoarthritis type Pain in both knees, unspecified chronicity : Eprescribed prescriptions (G8553) Indication: Pain in both knees, unspecified chronicity Current nonsmoker (Renamed from Current non-smoker) : Eprescribed prescriptions (G8553) Indication: Current nonsmoker (Renamed from Current non-smoker) Current nonsmoker (Renamed from Current non-smoker) : Eprescribed prescriptions (G8553) Indication: Current nonsmoker (Renamed from Current non-smoker) Diabetes mellitus type II, controlled : Follow up in 3 months Indication: Diabetes mellitus type II, controlled Anxiety and depression : Eprescribed prescriptions (G8553) Indication: Anxiety and depression Candidiasis : Follow up on 3 -20 Indication: Candidiasis Current nonsmoker (Renamed from Current non-smoker) : Follow up if no improvement or if symptoms worsen Indication: Current nonsmoker (Renamed from Current non-smoker) Current nonsmoker (Renamed from Current non-smoker) : Eprescribed prescriptions (G8553) Indication: Current nonsmoker (Renamed from Current non-smoker) BMI 31.0-31.9,adult : Eprescribed prescriptions (G8553) Indication: BMI 31.0-31.9,adult Diabetes mellitus type II, controlled : Eprescribed prescriptions (G8553) Indication: Diabetes mellitus type II, controlled Pre-operative exam (Renamed from Preop examination) : Eprescribed prescriptions (G8553) Indication: Pre-operative exam (Renamed from Preop examination) Weakness : Eprescribed prescriptions (G8553) Indication: Weakness Weakness : *fatigue education Indication: Weakness Weakness : Follow up in 1 week Indication: Weakness Mouth pain : Eprescribed prescriptions (G8553) Indication: Mouth pain Mouth pain : Follow up in 1 week Indication: Mouth pain Asthma in adult : Eprescribed prescriptions (G8553) Indication: Asthma in adult Unspecified Diagnosis : Eprescribed prescriptions (G8553) Indication: Unspecified Diagnosis Thrush : Follow up in 2 weeks Indication: Thrush Pharyngitis, acute : Eprescribed prescriptions (G8553) Indication: Pharyngitis, acute Sinusitis, acute : Eprescribed prescriptions (G8553) Indication: Sinusitis, acute Symptomatic menopausal or female climacteric states : Eprescribed prescriptions (G8553) Indication: Symptomatic menopausal or female climacteric states Encounter for screening mammogram for breast cancer (Renamed from Encounter for screening mammogram for malignant neoplasm of breast) : Mammogram *: gynecological health Indication: Encounter for screening mammogram for breast cancer (Renamed from Encounter for screening mammogram for malignant neoplasm of breast) Vitamin D deficiency (Renamed from Avitaminosis D) : *ERGOCALCIFEROL DOSAGE PER SHEWMON Indication: Vitamin D deficiency (Renamed from Avitaminosis D) Diabetes mellitus type II, controlled : Diabetes Mellitus: Type 2 *: diabetes mellitus Indication: Diabetes mellitus type II, controlled Urinary frequency : Kegel Exercises: Brief Version *: bladder control exercises Indication: Urinary frequency UTI (lower urinary tract infection) : follow up for recheck urine 1 week after complete antibiotic Indication: UTI (lower urinary tract infection) Urinary frequency : *UTI treatment Indication: Urinary frequency Urinary frequency : Water in diet, brief version Indication: Urinary frequency Fatigue : Fatigue: fatigue Indication: Fatigue Dysuria (Renamed from Difficult or painful urination) : Urinary Tract Infection in Women *: bladder infection Indication: Dysuria (Renamed from Difficult or painful urination) Need for prophylactic vaccination and inoculation against influenza : Flu (Influenza) *: flu shot Indication: Need for prophylactic vaccination and inoculation against influenza Urinary frequency : follow up for recheck urine 1 week after complete antibiotic Indication: Urinary frequency Urinary frequency : *UTI treatment Indication: Urinary frequency Urinary frequency : Water in diet, brief version Indication: Urinary frequency Vitamin D deficiency (Renamed from Avitaminosis D) : Follow up in 6 weeks Indication: Vitamin D deficiency (Renamed from Avitaminosis D) Weakness Of Distal Arms And Legs : Reviewed Lab Indication: Weakness Of Distal Arms And Legs Weakness Of Distal Arms And Legs : Reviewed Diagnostic Tests: Holter sinus rhythm and sinus arrythmia Indication: Weakness Of Distal Arms And Legs Dizziness : Follow up in 1 week Indication: Dizziness Cough : Cough: cough Indication: Cough Pharyngitis, acute : Sore Throat *: acute pharyngitis Indication: Pharyngitis, acute Asthma in adult : Asthma: Brief Version *: asthma attack Indication: Asthma in adult Diabetes mellitus type II, controlled : Nutrition for Diabetics: Dining Out *: meal plan Indication: Diabetes mellitus type II, controlled Dysuria (Renamed from Difficult or painful urination) : follow up for recheck urine 1 week after complete antibiotic Indication: Dysuria (Renamed from Difficult or painful urination) Dysuria (Renamed from Difficult or painful urination) : *UTI treatment Indication: Dysuria (Renamed from Difficult or painful urination) Dysuria (Renamed from Difficult or painful urination) : Water in diet, brief version Indication: Dysuria (Renamed from Difficult or painful urination) Cough : Follow up if no improvement or if symptoms worsen Indication: Cough Bronchitis : *URI Treatment Indication: Bronchitis Bronchitis : *URI Symptoms Indication: Bronchitis Bronchitis : *Antibiotic Usage Education - Female Indication: Bronchitis ALOP[place]IA NOS : FOLLOW UP IN 3 MONTHS Indication: AL[place]IA NOS Bipolar affective disorder, mixed : FOLLOW UP IN 1 WEEK Indication: Bipolar affective disorder, mixed Well woman exam : SELF BREAST EXAM Indication: Well woman exam Well woman exam : *Colon Cancer Screening Indication: Well woman exam Well woman exam : *Well Female Maintenance (KF) Indication: Well woman exam Well woman exam : Pap/Pelvic/Bimanual/Rectal/Breast Exam was done. Indication: Well woman exam Bronchitis, acute : Antibiotic Usage Education - Female Indication: Bronchitis, acute Planned Observations VITAMIN B12 AND FOLATES (39615)Indication: Neuropathic pain On: :08 Request Blood Glucose , Office (95341)Indication: Diabetes mellitus type II, controlled On: 13-Xnc-62335:04 Request LIPID PANEL (53081)Indication: Neuropathic pain On: :54 Request Blood Glucose , Office (51235)Indication: Diabetes mellitus type II, controlled On: 02-Nov-20178:55 Request D-Dimer (28067)Indication: Shortness of breath On: 23-Sjr-527842:19 Request Metabolic Panel, Comprehensive (12616)Indication: Diabetes mellitus type II, controlled On: 23-Uux-079612:19 Request Comments: Nov 2017 LIPID PANEL (38443)Indication: Diabetes mellitus type II, controlled On: 89-Igt-044907:19 Request Comments: Nov 2017 URINALYSIS (36675)Indication: Diabetes mellitus type II, controlled On: 90-Noe-112498:19 Request Comments: Nov 2017 TSH (39222)Indication: Diabetes mellitus type II, controlled On: 85-Mhx-531176:18 Request Comments: Nov 2017 CBC, Platelets & Auto Diff (77773)Indication: Diabetes mellitus type II, controlled On: 98-Uoe-390009:18 Request Comments: Nov 2017 MICROALBUMIN: CREATININE RATIO (18333) AND (79930)Indication: Diabetes mellitus type II, controlled On: 58-Kzk-740240:18 Request Comments: Nov 2017 HgA1C , Office (11136)Indication: Diabetes mellitus type II, controlled On: 66-Qqn-309549:44 Request Anaerobic & Aerobic Culture (22494)Indication: Mouth pain On: 3-Bhd-401754:11 Request Metabolic Panel, Comprehensive (60837)Indication: Chronic kidney disease (CKD), stage I On: 46-Tic-226495:50 Request Comments: 2 weeks Metabolic Panel, Comprehensive (54757)Indication: Diabetes mellitus type II, controlled On: 51-Gwx-426551:56 Request Comments: today URINALYSIS (99594)Indication: Chronic kidney disease (CKD), stage I On: 85-Rmj-119876:52 Request Comments: Jul 2017 MICROALBUMIN: CREATININE RATIO (19627) AND (71401)Indication: Chronic kidney disease (CKD), stage I On: 33-Xly-149983:52 Request Comments: jul 2017 Lipid Panel (65682)Indication: Hypertension (Renamed from BP (high blood pressure)) On: 16-Eqe-283861:52 Request Comments: Jul 2017 TSH (40451)Indication: Leg weakness On: 08-Kpv-834488:52 Request Comments: Jul 2017 CBC, Platelets & Auto Diff (36775)Indication: Leg weakness On: 56-Doi-783126:52 Request Comments: jul 2017 METABOLIC PANEL, COMPREHENSIVE (25354)Indication: Weakness On: 56-Wxd-986488:55 Request METABOLIC PANEL, COMPREHENSIVE (85196)Indication: Hypokalemia On: :43 Request Comments: STAT SED RATE ERYTHROCYTE (78882)Indication: Weakness On: 35-Epx-204847:29 Request TSH (THYROID STIMULATING HORMONE) (15413)Indication: Unspecified abnormal involuntary movements On: :17 Request METABOLIC PANEL, COMPREHENSIVE (65256)Indication: Unspecified abnormal involuntary movements On: :17 Request CBC, PLATELETS & AUT DIFF (92062)Indication: Unspecified abnormal involuntary movements On: 48-Ggo-117122:17 Request URINE VERÓNICA CULTURE-IDENTIFICATN (97688)Indication: Weakness On: 85-Nlh-255107:07 Request Blood Glucose , Office (83288)Indication: Unspecified abnormal involuntary movements On: 02-Suf-40011:59 Request VITAMIN B12 AND FOLATES (75583)Indication: Unspecified abnormal involuntary movements On: 64-Yet-66218:57 Request SPEP (94424)Indication: Elevated serum creatinine On: 37-Wmc-665860:31 Request CALCIFIDIOL (21281) VIT D 25Indication: Vitamin D deficiency (Renamed from Avitaminosis D) On: :27 Request TSH (43027)Indication: Hypothyroidism On: :27 Request MICROALBUMIN: CREATININE RATIO (49633) AND (95756)Indication: Diabetes mellitus type II, controlled On: :27 Request METABOLIC PANEL, COMPREHENSIVE (50771)Indication: Diabetes mellitus type II, controlled On: :27 Request LIPID PANEL (70673)Indication: Diabetes mellitus type II, controlled On: :27 Request CBC with auto diff (78030)Indication: Diabetes mellitus type II, controlled On: :27 Request CALCIFIDIOL (39155) VIT D 25Indication: Vitamin D deficiency (Renamed from Avitaminosis D) On: 17-Xcg-639072:15 Request Comments: in three months (approximately) METABOLIC PANEL, COMPREHENSIVE (99802)Indication: Diabetes mellitus type II, controlled On: 17-Sxe-340663:15 Request Comments: in three months (approximately) SODIUM URINE (08371)Indication: Hyponatremia On: :51 Request OSMOLALITY URINE (72308)Indication: Hyponatremia On: :50 Request OSMOLALITY BLOOD (04172)Indication: Hyponatremia On: :50 Request ASSAY, TROPONIN, QUANTITATIVE (aka Troponin I) (65150)Indication: Chest pain On: :40 Request Comments: stat D-Dimer (59306)Indication: Chest pain On: 04-Mvf-978559:40 Request Comments: stat TSH (90232)Indication: Chest pain On: :40 Request CBC WITH MANUAL DIFF (64103)Indication: Chest pain On: :40 Request METABOLIC PANEL, COMPREHENSIVE (07968)Indication: Chest pain On: 41-Mbj-985121:40 Request URINE VERÓNICA CULTURE (SHARIFA COL COUNT) (70826)Indication: Dysuria (Renamed from Difficult or painful urination) On: 11-Lzb-445473:24 Request Metabolic Panel, Comprehensive (95776)Indication: Hypertension (Renamed from BP (high blood pressure)) On: 45-Pxf-183842:56 Request Metabolic Panel, Basic (29933)Indication: Elevated LFTs On: 66-Arr-480025:16 Request 24 hour urine for Protein (21684)Indication: Elevated serum creatinine On: 04-Fbz-699915:40 Request Comments: recheck in one week CREATININE CLEARANCE (64195)Indication: Elevated serum creatinine On: 85-Sdo-876941:39 Request Comments: recheck in one week Blood Glucose , Office (94332)Indication: Diabetes mellitus type II, controlled On: 47-Hwm-03614:29 Request METABOLIC PANEL, COMPREHENSIVE (39628)Indication: Hypokalemia (Renamed from Decreased potassium in the blood) On: 54-Cwa-068953:52 Request MICROALBUMIN: CREATININE RATIO (80614) AND (20058)Indication: Diabetes mellitus type II, controlled On: 95-Vwv-808221:14 Request FLURESCNT ANTIB SCRN EA (92692) celiac profileIndication: Irritable bowel syndrome (Renamed from Functional bowel disease) On: 0-Oai-279943:58 Request IMMUNOASSAY, ANALYTE (NON-INFECT) (73683) celiac profileIndication: Irritable bowel syndrome (Renamed from Functional bowel disease) On: 9-Mrg-222368:58 Request IGA/IGD/IGG/IGM-EACH (93212) celiac profileIndication: Irritable bowel syndrome (Renamed from Functional bowel disease) On: 9-Zno-175063:58 Request Potassium Serum (28100)Indication: Hypokalemia (Renamed from Decreased potassium in the blood) On: 7-Dvq-712028:58 Request Celiac Disease Comphrehensive Profile (35795)Indication: Irritable bowel syndrome (Renamed from Functional bowel disease) On: 04-Nov-20129:56 Request METABOLIC PANEL, COMPREHENSIVE (50719)Indication: Diabetes mellitus type II, controlled On: 55-Tio-773956:32 Request LIPID PANEL (45000)Indication: Diabetes mellitus type II, controlled On: 72-Amw-505383:32 Request CBC WITH MANUAL DIFF (63224)Indication: Diabetes mellitus type II, controlled On: 23-Ccs-611167:32 Request MICROALBUMIN: CREATININE RATIO (22331) AND (02968)Indication: Diabetes mellitus type II, controlled On: 97-Arx-482913:32 Request TSH (04017)Indication: Hypothyroidism On: 04-Syg-514890:32 Request TSH (46610)Indication: Hypothyroidism On: 71-Nze-663800:26 Request MICROALBUMIN: CREATININE RATIO (95317) AND (01832)Indication: Diabetes mellitus type II, controlled On: 95-Clx-197449:26 Request METABOLIC PANEL, COMPREHENSIVE (95223)Indication: Diabetes mellitus type II, controlled On: 68-Gio-305215: Request LIPID PANEL (54266)Indication: Diabetes mellitus type II, controlled On: :26 Request CBC WITH MANUAL DIFF (77287)Indication: Diabetes mellitus type II, controlled On: 63-Zgx-107341:26 Request URINE VERÓNICA CULTURE-SHARIFA COL COUNT (97898)Indication: Dysuria (Renamed from Difficult or painful urination) On: 61-Iwx-842367:15 Request URINE VERÓNICA CULTURE-SHARIFA COL COUNT (45356)Indication: Dysuria (Renamed from Difficult or painful urination) On: 71-Tai-064517:55 Request Ferritin (28854)Indication: Elevated LFTs On: 57-Xwn-553953:50 Request Comments: repeat now per Dr. Cabral with iron level Iron Binding Capacity (TIBC) (75862)Indication: Elevated LFTs On: :50 Request Iron (95003)Indication: Elevated LFTs On: :49 Request CBC (Auto) (60677)Indication: Thrombocytopenia, unspecified On: 70-Dkf-160975: Request Comments: nonclumping tube HEPATITIS PANEL (22511)Indication: Elevated LFTs On: 30-Piv-969931: Request FERRITIN (48437)Indication: Elevated LFTs On: 40-Bvw-448030:00 Request CERULOPLASMIN (13718)Indication: Elevated LFTs On: 40-Hjc-631456:00 Request ASM (ANTI SMOOTH MUSCLE ANTIBODY) (13842)Indication: Elevated LFTs On: 34-Xtr-510073:00 Request GAYATRI (ANTINUCLEAR ANTIBODY) (68165)Indication: Elevated LFTs On: 47-Zfc-785603:00 Request HEPATITIS PANEL (59113)Indication: Elevated LFTs On: :01 Request TSH (54915)Indication: Hypothyroidism On: 18-Gcq-332950:16 Request LIPID PANEL (74157)Indication: Diabetes mellitus type II, controlled On: 80-Xfc-784095:15 Request DRUG ASSAY-LITHIUM (76137)Indication: Bipolar affective disorder, mixed On: 15-Dxd-717077:14 Request Metabolic Panel, Basic (90261)Indication: Bipolar affective disorder, mixed On: 15-Bsx-420815:13 Request Metabolic Panel, Basic ([id number])Indication: Bipolar affective disorder, mixed On: 99-Sma-355336:22 Request DRUG ASSAY-LITHIUM ([id number])Indication: Bipolar affective disorder, mixed On: 06-Kfz-086287:22 Request Comments: 2 months Urinalysis, Office ([id number])Indication: Urinary frequency On: 30-Bwm-277935:27 Request Comments: done pms HEPATIC FUNCTION PANEL ([id number])Indication: Other and unspecified hyperlipidemia On: 0-Qlr-346712:45 Request Lipid Panel ([id number])Indication: Other and unspecified hyperlipidemia On: 3-Vyh-441847:45 Request Lipid Panel ([id number])Indication: Other and unspecified hyperlipidemia On: 05-Upt-324042:17 Request CBC, Platelets & Auto Diff ([id number])Indication: Other and unspecified hyperlipidemia On: :17 Request Metabolic Panel, Comprehensive ([id number])Indication: Other and unspecified hyperlipidemia On: :17 Request TSH ([id number])Indication: Hypothyroidism On: :15 Request Metabolic Panel, Basic ([id number])Indication: Other and unspecified hyperlipidemia On: :55 Request Lipid Panel ([id number])Indication: Other and unspecified hyperlipidemia On: :55 Request Comments: in three months (approximately) CBC (Auto) ([id number])Indication: Intestinal disaccharidase deficiencies and disaccharide malabsorption On: :56 Request Metabolic Panel, Comprehensive ([id number])Indication: Intestinal disaccharidase deficiencies and disaccharide malabsorption On: :56 Request Lipid Panel ([id number])Indication: Intestinal disaccharidase deficiencies and disaccharide malabsorption On: :56 Request Comments: in three months (approximately) MICROALBUMIN 24 HOUR OR RANDOM On: 96-Lzl-317118:04 Request ([id number]) CREATININE CLEARANCE ([id number]) On: 64-Jrl-098163:03 Request CBC (Auto) ([id number])Indication: Unspecified disorder of kidney and ureter On: :53 Request Lipid Panel ([id number])Indication: Unspecified disorder of kidney and ureter On: :53 Request Metabolic Panel, Comprehensive ([id number])Indication: Unspecified disorder of kidney and ureter On: :53 Request TSH ([id number])Indication: Hypothyroidism On: :53 Request TSH ([id number])Indication: Hypothyroidism On: 68-Huj-873606:18 Request URINALYSIS ([id number])Indication: Intestinal disaccharidase deficiencies and disaccharide malabsorption On: 67-Mnd-531996:43 Request CBC (Auto) ([id number])Indication: Intestinal disaccharidase deficiencies and disaccharide malabsorption On: 62-Ycn-414102:43 Request Lipid Panel ([id number])Indication: Intestinal disaccharidase deficiencies and disaccharide malabsorption On: :43 Request Metabolic Panel, Comprehensive ([id number])Indication: Intestinal disaccharidase deficiencies and disaccharide malabsorption On: 78-Yyh-388007:43 Request Planned Procedures COMPUTED TOMOGRAPHY ANGIOGRAPHY OF On: 01-Aug-2018 Intent CHEST FOR PULMONARY EMBOLISM Comments: stat for PE ([id number])By: Eli Bowman CNP, CNP, Mary E Echo CompleteBy: Eli Bowman CNP On: 29-Jul-2018 Intent Eli Bowman CNP Spirometry ([id number])By: Colby WATTERS, On: 29-Jul-2018 Intent Eli Mcelroy CNP Holter Monitor 24 hrsBy: Colby WATTERS, On: 29-Jul-2018 Intent Eli Mcelroy CNP CHEST XRAY, PA & LATERAL ([id number])By: On: 29-Jul-2018 Intent Eli Bowman CNP, CNP, Mary E ELECTROCARDIOGRAM, COMPLETE (ECG) On: 29-Jul-2018 Intent ([id number])By: Eli Bowman CNP Comments: sinus rhythm Eli WATTERS Aerosol Treatment ([id number])By: Colby On: 29-Jul-2018 Intent Eli WATTERS CNP, Mary E Flu Vaccine (Quadrivalent) 04553Zb: On: 22-Jul-2018 Intent Tejal Ceron Comments: Lot #[id number]-L dltd, IMDose prefilled syringegiven by: Rosalie Ceron MA Toradol Injection, 30 mg ([id number])By: On: 09-May-2018 Intent Nunu Root Comments: lot [id number] 12/2029mgIMleft gmas, R[employer]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 SCREENING DIGITAL TOMOSYNTHESIS OF On: 18-Apr-2018 Intent BREAST ([id number])By: Eil Bowman CNP E Eli Bowman CNP DEXA SCAN AXIAL SKELETON ([id number])By: On: 18-Apr-2018 Intent Eli Bowman CNP E Colby WATTERS, Eli Lubin Toradol Injection, 30 mg ([id number])By: On: 22-Mar-2018 Intent Nunu Root Comments: toradol 30mg injection lot:[id number]:10/2019R GMpt tolerated wellMSMITH,ROT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 COMPLETE ELECTROMYOGRAPHY (EMG) WITH On: 22-Mar-2018 Intent NERVE CONDUCTION STUDIES OF EACH Comments: Bilateral lower legs EXTREMITY ([id number])By: Nunu Root EMGBy: Eli Bowman CNP, CNP, On: 03-Jan-2018 Intent Eli Lubin Comments: both legs Nerve ConductionBy: Eli Bowman CNP On: 03-Jan-2018 Intent E Eli Bowman CNP Comments: both legs Toradol Injection, 30 mg ([id number])By: On: 23-Dec-2017 Intent Mayda Dobbins DO Comments: toradol 30mg injectionlot: [id number]: 06/2018L GMpt tolerated wellAD ROT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 Spirometry ([id number])By: Dk, On: 16-Nov-2017 Intent Nunu Comments: Normal spirometry Aerosol Treatment ([id number])By: Shilpi On: 30-Aug-2017 Intent Mayda COLEMAN Comments: less noise with forced exp Solu- Medrol Injection, 125mg On: 30-Aug-2017 Intent ([id number])By: Mayda Dobbins DO Comments: solumedrol 125mg injectionlot: [id number]: 12/2019R GMpt tolerated wellAD ROT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 Radiology - Chest- PA and LatBy: On: 30-Aug-2017 Intent Mayda Dobbins DO Solu- Medrol Injection, 125mg On: 26-Aug-2017 Intent ([id number])By: Mayda Dobbins DO Comments: solumedrol 125mg injectionlot: [id number]: 12/2019L GMpt tolerated wellAD ROT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 Aerosol Treatment ([id number])By: Shilpi On: 26-Aug-2017 Mayda Bailey [place] Comments: [place] Spirometry ([id number])By: Shilpi COLEMAN On: 26-Aug-2017 Intent Mayda Comments: mild obstruction Radiology - Shoulder - RightBy: On: 20-Jul-2017 Intent Edita Cabral MD Radiology - Lumbar SpineBy: Misha On: 20-Jul-2017 Intent Edita PROCTOR DRAIN/INJECT MAJOR JOINT OR BURSA On: 13-Apr-2017 Intent ([id number])By: Eli Bowman CNP Comments: injevted left knee today JANENE, Eli Lubin PHYSICAL THERAPY ([id number])By: Dk, On: 08-Apr-2017 Intent Nunu Radiology - Knee - RightBy: Dk, On: 08-Apr-2017 Intent Nunu Radiology - Knee - LeftBy: Dk, On: 08-Apr-2017 Intent Nunu ATTENDED SLEEP STUDY ([id number])By: On: 18-Jan-2017 Intent Eli Bowman CNP, CNP, Mary E DEXA SCAN AXIAL SKELETON ([id number])By: On: 24-Nov-2016 Intent Donnie Gonzales MD MAMMOGRAM, SCREENING, BOTH BREAST On: 24-Nov-2016 Intent ([id number])By: Donnie Gonzales MD US KIDNEY COMPLETE ([id number])By: Janet On: 16-Jul-2016 Intent Donnie PROCTOR EsophagramBy: Edita Cabral MD On: 06-Feb-2016 Intent Comments: 12mm tablet X-RAY EXAM OF ESOPHAGUS ([id number]) - On: 04-Feb-2016 Intent Barium Swallow with 12mm tabletBy: Donnie Gonzales MD Carotid DopplerBy: Edita Cabral MD On: 16-Sep-2015 Intent Oz TD VACCINE ADULT ([id number])By: Misha On: 16-Sep-2015 Intent Edita PROCTOR TDAP VACCINE >7 IM ([id number])By: On: 16-Sep-2015 Intent Edita Cabral MD Pap Smear, Medicare ([id number])By: On: 16-Sep-2015 Intent Edita Cabral MD MAMMOGRAM, SCREENING, BOTH BREAST On: 16-Sep-2015 Intent ([id number])By: Edita Cabral MD Renal Artery DopplerBy: Misha PROCTOR, On: 04-Feb-2015 Intent Edita Clinton Ultrasound - RenalBy: Misha PROCTOR, On: 04-Feb-2015 Intent Edita Clinton DEXA SCAN AXIAL SKELETON ([id number])By: On: 17-Jan-2015 Intent Edita Cabral MD Comments: postmenapausal MAMMOGRAM, SCREENING, BOTH BREAST On: 17-Jan-2015 Intent ([id number])By: Edita Cabral MD Radiology - Shoulder - LeftBy: On: 14-May-2014 Intent Edita Cabral MD Nuclear Stress Test/Stress On: 14-May-2014 Intent SPECT/TreadmillBy: Edita Cabral MD CT - Cardiac CTABy: Erna Kingston DO On: 30-Apr-2014 Intent Comments: chest cta pe protocol CT - ChestBy: Erna Kingston DO On: 30-Apr-2014 Intent Comments: - pe protocol and rule out thoracic aneurysm- with back pain- stat call results Spirometry ([id number])By: Thee COLEMAN, On: 30-Apr-2014 Intent Erna Schaefer Comments: good effort and curve normal ELECTROCARDIOGRAM, COMPLETE (ECG) On: 30-Apr-2014 Intent ([id number])By: Erna Kingston DO Eprescribed prescriptions ([id number])By: On: 12-Feb-2014 Intent Edita Cabral MD SPECIMEN HANDLING/TRANSPORT On: 15-Jan-2014 Intent ([id number])By: Eli Bowman CNP, CNP, Mary E Eprescribed prescriptions ([id number])By: On: 11-Oct-2013 Intent Nunu Stephens LPN ADMINISTRATION OF INFLUENZA VIRUS On: 24-Jul-2013 Intent VACCINE ([id number])By: Edita Cabral MD FLU VAC, SPLIT, >3 YEARS, INTRAMUSC On: 24-Jul-2013 Intent ([id number])By: Edita Cabral MD Echo CompleteBy: Edita Cabral MD On: 27-Jun-2013 Intent Carotid DopplerBy: Edita Cabral MD On: 27-Jun-2013 Intent Oz Eprescribed prescriptions ([id number])By: On: 27-Jun-2013 Intent Teressa Molina LPN MRI - BrainBy: Eli Bowman CNP On: 16-Jun-2013 Intent Eli Bowman CNP SPECIMEN HANDLING/TRANSPORT On: 16-May-2013 Intent ([id number])By: Sue Ewing LPN Holter Monitor 24 hrsBy: Colby WATTERS, On: 28-Apr-2013 Intent Eli Mcelroy CNP ELECTROCARDIOGRAM, COMPLETE (ECG) On: 28-Apr-2013 Intent ([id number])By: Eli Bowman CNP Comments: sinus bradycardia Eli WATTERS Bio Z ([id number])By: Eli Bowman CNP E On: 28-Apr-2013 Intent Eli Bowman CNP EKG ([id number])By: Edita Cabral MD On: 28-Mar-2013 Intent Comments: see scanned document of test done to see results reviewed today with patient Eprescribed prescriptions ([id number])By: On: 28-Mar-2013 Intent Teressa Molina LPN Eprescribed prescriptions ([id number])By: On: 08-Dec-2012 Intent Nunu Stephens LPN Spirometry ([id number])By: Shilpi COLEMAN, On: 25-Nov-2012 Intent Mayda Comments: Computer not running so not able to perform test Aerosol Treatment ([id number])By: Shilpi On: 25-Nov-2012 Mayda Bailey DO Spirometry ([id number])By: Thee COLEMAN, On: 21-Nov-2012 Intent Erna Schaefer Comments: good effort and curve normal Radiology - Chest- PA and LatBy: On: 21-Nov-2012 Intent Erna Kingston DO Eprescribed prescriptions ([id number])By: On: 21-Nov-2012 Intent Makayla Dillard LPN ADMINISTRATION OF PNEUMOCOCCAL On: 31-Oct-2012 Intent VACCINE (G0009)By: Edita Cabral MD Comments: Lot #[id number]/14Site-right deltoidDose0.5mlgiven by: [facility] per [facility]. M PNEUM VAC ADLT/IMUMNOSPR, SBC/INTRM On: 31-Oct-2012 Intent ([id number])By: Jodi Carvalho LPN Eprescribed prescriptions ([id number])By: On: 18-Oct-2012 Intent Jesse VICKERSNJasonn L FLU VAC, SPLIT, >3 YEARS, INTRAMUSC On: 01-Jul-2012 Intent ([id number])By: Eli Bowman CNP Comments: Lot:[id number]:6.13Amt:prefilled syringeSite: L Dltd, IMGiven by: MARISA Torres CNP, Elif ADMINISTRATION OF INFLUENZA VIRUS On: 01-Jul-2012 Intent VACCINE (G0008)By: Colby WATTERS ElifAmee Bowman CNP, Elif SPECIMEN HANDLING/TRANSPORT On: 01-Jul-2012 Intent ([id number])By: Sue Ewing LPN Solu -Medrol Injection, 125 mg On: 23-Nov-2011 Intent ([id number])By: Edita Cabral MD Comments: Lot [id number]-R hip, IMDose 125mggiven by:Teressa Radiology - ChestBy: Misha PROCTOR, On: 23-Nov-2011 Intent Edita Clinton Comments: wet read Pulse Oximetry (23542)By: Benoit On: 23-Nov-2011 Intent AKBAR Aerosol Treatment (78805)By: Colby On: 16-Nov-2011 Intent Eli WATTERS CNP Elif Pulse Oximetry (97150)By: Vin, On: 16-Nov-2011 Intent Lynn Comments: 93 FLU VAC, SPLIT, >3 YEARS, INTRAMUSC On: 16-Nov-2011 Intent ([id number])By: Lynn Banuelos Comments: received at work SPECIMEN HANDLING/TRANSPORT On: 14-Sep-2011 Intent ([id number])By: Edita Cabral MD SPECIMEN HANDLING/TRANSPORT On: 26-Aug-2011 Intent ([id number])By: Sue Ewing LPN Ultrasound - LiverBy: Misha PROCTOR, On: 11-Jun-2011 Intent Edita Clinton EKG ([id number])By: Edita Cabral MD On: 16-Feb-2011 Intent MAMMOGRAM, SCREENING, BOTH BREASTS On: 13-Mar-2010 Intent ([id number])By: Edita Cabral MD MAMMOGRAM, SCREENING, BOTH BREASTS On: 06-Mar-2010 Intent ([id number])By: Edita Cabral MD MAMMOGRAM, SCREENING, BOTH BREASTS On: 13-Feb-2010 Intent ([id number])By: Edita Cabral MD Spirometry (63477)By: Misha PROCTOR, On: 01-Oct-2009 Intent Edita Clinton ELECTROCARDIOGRAM, COMPLETE (ECG) On: 01-Oct-2009 Intent ([id number])By: Edita Cabral MD Pulse Oximetry (41095)By: Benoit, On: 01-Oct-2009 Intent AKBAR Spirometry (97003)By: Thee COLEMAN On: 30-Jul-2009 Intent Erna Schaefer Comments: good effort and curve normal Radiology - Chest- PA and LatBy: On: 30-Jul-2009 Intent Erna Kingston DO Pulse Oximetry ([id number])By: Vin, On: 30-Jul-2009 Intent Lynn Comments: 94%repeat 97-98 EKG ([id number])By: Erna Kingston DO On: 14-Jul-2009 Intent Comments: ekg showed normal sinus rhythym, normal axis, no acute st/t wave changes old t wave inversion noted on previous ekg Pulse Oximetry (50850)By: Vin On: 11-Jul-2009 Intent Lynn Comments: 97% Solu -Medrol Injection, 125 mg On: 09-Jul-2009 Intent ([id number])By: Erna Kingston DO Comments: Lot #:[id number] date:[place] given:125mgRoute:IM Site given:left buttockGiven by: MARIA DOLORES Cordon Aerosol Treatment ([id number])By: Thee On: 09-Jul-2009 Erna Bailey DO Pulse Oximetry (97998)By: Thee COLEMAN On: 09-Jul-2009 Intent Erna Schaefer Comments: repeat after treatment was 96 Pulse Oximetry (44979)By: Vin On: 09-Jul-2009 Intent Lynn Comments: 93% Spirometry (77412)By: Gildardo SOUSA, On: 25-Jan-2009 Intent Sue MAMMOGRAM, SCREENING, BOTH BREASTS On: 29-May-2008 Intent ([id number])By: Edita Cabral MD EKG (57425)By: Edita Cabral MD On: 29-May-2008 Intent Spirometry (69234)By: Misha PROCTOR, On: 27-Dec-2007 Intent Edita Clinton Ultrasound - ThyroidBy: Misha PROCTOR, On: 22-Mar-2007 Intent Edita Clinton MAMMOGRAM, SCREENING, BOTH BREASTS On: 22-Mar-2007 Intent ([id number])By: Edita Cabral MD MAMMOGRAM, SCREENING, BOTH BREASTS On: 22-Mar-2007 Intent ([id number])By: Edita Cabral MD ELECTROCARDIOGRAM, COMPLETE (ECG) On: 22-Mar-2007 Intent ([id number])By: Edita Cabral MD Planned Medications INJECTION, KETOROLAC TROMETHAMINE, PER 15 MG Ordered: 23-Dec-2017 Pending Mayda Dobbins DO INJECTION, KETOROLAC TROMETHAMINE, PER 15 MG Ordered: 22-Mar-2018 Pending Nunu Root INJECTION, KETOROLAC TROMETHAMINE, PER 15 MG Ordered: 09-May-2018 Pending Nunu Root INJECTION, METHYLPREDNISOLONE SODIUM SUCCINATE, UP TO 125 MG Ordered: 23-Nov-2011 Pending Edita Cabral MD INJECTION, METHYLPREDNISOLONE SODIUM SUCCINATE, UP TO 125 MG Ordered: 26-Aug-2017 Pending Mayda Dobbins DO INJECTION, METHYLPREDNISOLONE SODIUM SUCCINATE, UP TO 125 MG Ordered: 30-Aug-2017 Pending Mayda Dobbins DO Instructions Name Dates Details Non-smoker : How to access health information online Indication: Non-smoker Non-smoker : How to access health information online - Detail Indication: Non-smoker Non-smoker : Patient Instructions Indication: Non-smoker Nonsmoker : How to access health information online Indication: Nonsmoker Nonsmoker : How to access health information online - Detail Indication: Nonsmoker Nonsmoker : Patient Instructions Indication: Nonsmoker BMI 32.0-32.9,adult : How to access health information online Indication: BMI 32.0-32.9,adult BMI 32.0-32.9,adult : How to access health information online - Detail Indication: BMI 32.0-32.9,adult Osteoarthritis of both knees, unspecified osteoarthritis type : Patient Instructions Indication: Osteoarthritis of both knees, unspecified osteoarthritis type Neuropathic pain : How to access health information online Indication: Neuropathic pain Neuropathic pain : How to access health information online - Detail Indication: Neuropathic pain Neuropathic pain : Patient Instructions Indication: Neuropathic pain BMI 34.0-34.9,adult : How to access health information online Indication: BMI 34.0-34.9,adult BMI 34.0-34.9,adult : How to access health information online - Detail Indication: BMI 34.0-34.9,adult Leg pain : Patient Instructions Indication: Leg pain Current nonsmoker (Renamed from Current non-smoker) : How to access health information online Indication: Current nonsmoker (Renamed from Current non-smoker) Current nonsmoker (Renamed from Current non-smoker) : How to access health information online - Detail Indication: Current nonsmoker (Renamed from Current non-smoker) Candidiasis : Patient Instructions Indication: Candidiasis Current nonsmoker (Renamed from Current non-smoker) : How to access health information online Indication: Current nonsmoker (Renamed from Current non-smoker) Current nonsmoker (Renamed from Current non-smoker) : How to access health information online - Detail Indication: Current nonsmoker (Renamed from Current non-smoker) Current nonsmoker (Renamed from Current non-smoker) : Patient Instructions Indication: Current nonsmoker (Renamed from Current non-smoker) Bilateral leg numbness : How to access health information online Indication: Bilateral leg numbness Bilateral leg numbness : How to access health information online - Detail Indication: Bilateral leg numbness Current nonsmoker (Renamed from Current non-smoker) : Patient Instructions Indication: Current nonsmoker (Renamed from Current non-smoker) Current nonsmoker (Renamed from Current non-smoker) : How to access health information online Indication: Current nonsmoker (Renamed from Current non-smoker) Current nonsmoker (Renamed from Current non-smoker) : How to access health information online - Detail Indication: Current nonsmoker (Renamed from Current non-smoker) Current nonsmoker (Renamed from Current non-smoker) : Patient Instructions Indication: Current nonsmoker (Renamed from Current non-smoker) BMI 36.0-36.9,adult : How to access health information online Indication: BMI 36.0-36.9,adult BMI 36.0-36.9,adult : How to access health information online - Detail Indication: BMI 36.0-36.9,adult Bronchitis : Patient Instructions Indication: Bronchitis Diabetes mellitus type II, controlled : How to access health information online Indication: Diabetes mellitus type II, controlled Diabetes mellitus type II, controlled : How to access health information online - Detail Indication: Diabetes mellitus type II, controlled Diabetes mellitus type II, controlled : Patient Instructions Indication: Diabetes mellitus type II, controlled Bipolar depression : Patient Instructions Indication: Bipolar depression Current nonsmoker (Renamed from Current non-smoker) : How to access health information online Indication: Current nonsmoker (Renamed from Current non-smoker) Current nonsmoker (Renamed from Current non-smoker) : How to access health information online - Detail Indication: Current nonsmoker (Renamed from Current non-smoker) Current nonsmoker (Renamed from Current non-smoker) : Patient Instructions Indication: Current nonsmoker (Renamed from Current non-smoker) BMI 35.0-35.9,adult : How to access health information online Indication: BMI 35.0-35.9,adult BMI 35.0-35.9,adult : How to access health information online - Detail Indication: BMI 35.0-35.9,adult BMI 35.0-35.9,adult : Patient Instructions Indication: BMI 35.0-35.9,adult Shortness of breath : Patient Instructions Indication: Shortness of breath Current nonsmoker (Renamed from Current non-smoker) : How to access health information online Indication: Current nonsmoker (Renamed from Current non-smoker) Current nonsmoker (Renamed from Current non-smoker) : How to access health information online - Detail Indication: Current nonsmoker (Renamed from Current non-smoker) Shortness of breath : How to access health information online Indication: Shortness of breath Shortness of breath : How to access health information online - Detail Indication: Shortness of breath Shortness of breath : Patient Instructions Indication: Shortness of breath Current nonsmoker (Renamed from Current non-smoker) : How to access health information online Indication: Current nonsmoker (Renamed from Current non-smoker) Current nonsmoker (Renamed from Current non-smoker) : How to access health information online - Detail Indication: Current nonsmoker (Renamed from Current non-smoker) Current nonsmoker (Renamed from Current non-smoker) : Patient Instructions Indication: Current nonsmoker (Renamed from Current non-smoker) Diabetes mellitus type II, controlled : How to access health information online Indication: Diabetes mellitus type II, controlled Diabetes mellitus type II, controlled : How to access health information online - Detail Indication: Diabetes mellitus type II, controlled Hypertension (Renamed from BP (high blood pressure)) : Patient Instructions Indication: Hypertension (Renamed from BP (high blood pressure)) Acute bilateral low back pain without sciatica : How to access health information online Indication: Acute bilateral low back pain without sciatica Acute bilateral low back pain without sciatica : How to access health information online - Detail Indication: Acute bilateral low back pain without sciatica Acute bilateral low back pain without sciatica : Patient Instructions Indication: Acute bilateral low back pain without sciatica Current nonsmoker (Renamed from Current non-smoker) : How to access health information online Indication: Current nonsmoker (Renamed from Current non-smoker) Current nonsmoker (Renamed from Current non-smoker) : How to access health information online - Detail Indication: Current nonsmoker (Renamed from Current non-smoker) Current nonsmoker (Renamed from Current non-smoker) : Patient Instructions Indication: Current nonsmoker (Renamed from Current non-smoker) Diabetes mellitus type II, controlled : How to access health information online Indication: Diabetes mellitus type II, controlled Diabetes mellitus type II, controlled : How to access health information online - Detail Indication: Diabetes mellitus type II, controlled Urinary Incontinence (Renamed from Absence of bladder continence) : Patient Instructions Indication: Urinary Incontinence (Renamed from Absence of bladder continence) Pain in both knees, unspecified chronicity : How to access health information online Indication: Pain in both knees, unspecified chronicity Pain in both knees, unspecified chronicity : How to access health information online - Detail Indication: Pain in both knees, unspecified chronicity Pain in both knees, unspecified chronicity : Patient Instructions Indication: Pain in both knees, unspecified chronicity Current nonsmoker (Renamed from Current non-smoker) : How to access health information online Indication: Current nonsmoker (Renamed from Current non-smoker) Current nonsmoker (Renamed from Current non-smoker) : Patient Instructions Indication: Current nonsmoker (Renamed from Current non-smoker) Anxiety and depression : How to access health information online Indication: Anxiety and depression Anxiety and depression : How to access health information online - Detail Indication: Anxiety and depression Anxiety and depression : Patient Instructions Indication: Anxiety and depression Esophagitis : Patient Instructions Indication: Esophagitis Current nonsmoker (Renamed from Current non-smoker) : How to access health information online Indication: Current nonsmoker (Renamed from Current non-smoker) Current nonsmoker (Renamed from Current non-smoker) : How to access health information online - Detail Indication: Current nonsmoker (Renamed from Current non-smoker) Current nonsmoker (Renamed from Current non-smoker) : Patient Instructions Indication: Current nonsmoker (Renamed from Current non-smoker) BMI 31.0-31.9,adult : How to access health information online Indication: BMI 31.0-31.9,adult BMI 31.0-31.9,adult : How to access health information online - Detail Indication: BMI 31.0-31.9,adult BMI 31.0-31.9,adult : Patient Instructions Indication: BMI 31.0-31.9,adult Diabetes mellitus type II, controlled : How to access health information online Indication: Diabetes mellitus type II, controlled Diabetes mellitus type II, controlled : How to access health information online - Detail Indication: Diabetes mellitus type II, controlled Diabetes mellitus type II, controlled : Patient Instructions Indication: Diabetes mellitus type II, controlled Pre-operative exam (Renamed from Preop examination) : How to access health information online Indication: Pre-operative exam (Renamed from Preop examination) Pre-operative exam (Renamed from Preop examination) : How to access health information online - Detail Indication: Pre-operative exam (Renamed from Preop examination) Pre-operative exam (Renamed from Preop examination) : Patient Instructions Indication: Pre-operative exam (Renamed from Preop examination) Weakness : How to access health information online Indication: Weakness Weakness : How to access health information online - Detail Indication: Weakness Weakness : Patient Instructions Indication: Weakness Unspecified abnormal involuntary movements : How to access health information online Indication: Unspecified abnormal involuntary movements Unspecified abnormal involuntary movements : How to access health information online - Detail Indication: Unspecified abnormal involuntary movements Unspecified abnormal involuntary movements : Patient Instructions Indication: Unspecified abnormal involuntary movements Thrush : Patient Instructions Indication: Thrush Infection viral : Patient Instructions Indication: Infection viral Asthma in adult : How to access health information online Indication: Asthma in adult Asthma in adult : How to access health information online - Detail Indication: Asthma in adult Asthma in adult : Patient Instructions Indication: Asthma in adult Unspecified Diagnosis : How to access health information online Indication: Unspecified Diagnosis Unspecified Diagnosis : How to access health information online - Detail Indication: Unspecified Diagnosis Unspecified Diagnosis : Patient Instructions Indication: Unspecified Diagnosis Pharyngitis, acute : How to access health information online Indication: Pharyngitis, acute Pharyngitis, acute : How to access health information online - Detail Indication: Pharyngitis, acute Pharyngitis, acute : Patient Instructions Indication: Pharyngitis, acute Sinusitis, acute : How to access health information online Indication: Sinusitis, acute Sinusitis, acute : How to access health information online - Detail Indication: Sinusitis, acute Sinusitis, acute : Patient Instructions Indication: Sinusitis, acute Symptomatic menopausal or female climacteric states : How to access health information online Indication: Symptomatic menopausal or female climacteric states Symptomatic menopausal or female climacteric states : How to access health information online - Detail Indication: Symptomatic menopausal or female climacteric states Symptomatic menopausal or female climacteric states : Patient Instructions Indication: Symptomatic menopausal or female climacteric states Encounter for screening mammogram for breast cancer (Renamed from Encounter for screening mammogram for malignant neoplasm of breast) : How to access health information online Indication: Encounter for screening mammogram for breast cancer (Renamed from Encounter for screening mammogram for malignant neoplasm of breast) Encounter for screening mammogram for breast cancer (Renamed from Encounter for screening mammogram for malignant neoplasm of breast) : How to access health information online - Detail Indication: Encounter for screening mammogram for breast cancer (Renamed from Encounter for screening mammogram for malignant neoplasm of breast) Encounter for screening mammogram for breast cancer (Renamed from Encounter for screening mammogram for malignant neoplasm of breast) : Patient Instructions Indication: Encounter for screening mammogram for breast cancer (Renamed from Encounter for screening mammogram for malignant neoplasm of breast) Diabetes mellitus type II, controlled : Patient Instructions Indication: Diabetes mellitus type II, controlled Fatigue : Patient Instructions Indication: Fatigue Dysuria (Renamed from Difficult or painful urination) : Patient Instructions Indication: Dysuria (Renamed from Difficult or painful urination) Diabetes mellitus type II, controlled : Patient Instructions Indication: Diabetes mellitus type II, controlled Vitamin D deficiency (Renamed from Avitaminosis D) : Patient Instructions Indication: Vitamin D deficiency (Renamed from Avitaminosis D) Dizziness : Patient Instructions Indication: Dizziness Active Meniere's disease, bilateral : DISCONTINUED - POTASSIUM SERUM (36267) Indication: Active Meniere's disease, bilateral Elevated LFTs : DISCONTINUED - HEPATIC FUNCTION PANEL (75326) Indication: Elevated LFTs Diabetes mellitus type II, controlled : Patient Instructions Indication: Diabetes mellitus type II, controlled Cough : Patient Instructions Indication: Cough Pharyngitis, acute : Patient Instructions Indication: Pharyngitis, acute Asthma in adult : Patient Instructions Indication: Asthma in adult Active Meniere's disease, bilateral : Patient Instructions Indication: Active Meniere's disease, bilateral Encounters Office Visit On: 23-Aug-2018 14:24 Encounter Reason: Follow up tests - Diagnostic tests include CT scan (chest done 08-01-18). Date: (08-01-18). Note for Discuss procedure results: Improved with amoxicillin, chest pain went away, and SOB and coughEncounter Diagnosis: End: 23-Aug-2018 14:59 BMI 34.0-34.9,adult, Non-smoker, Bronchiectasis, Chest pain [facility] Annotation/Addendum On: 01-Aug-2018 16:00 Encounter Diagnosis: Bronchiectasis End: 01-Aug-2018 16:31 [facility] Annotation/Addendum On: 01-Aug-2018 7:38 Encounter Diagnosis: Elevated d-dimer End: 01-Aug-2018 7:42 [facility] Office Visit On: 29-Jul-2018 8:13 Encounter Reason: Cold Symptoms - Symptoms include nasal congestion, runny nose and dry cough. Onset was 3 day(s) ago., [ADDITIONAL REASON] Chest Pain - Note for Chest pain: Has chest pain going on for a couple of key End: 29-Jul-2018 10:10 hs, comes and goes, gets SOB with last couple of months, like feels like stopbreathing with talking.Came to walk in clinic with cold symptoms mentioned chest pain on and off for months wants evaluated , [ADDITIONAL REASON] Shortness of Breath - Note for Shortness of breath: SOB with talking and more constant Encounter Diagnosis: Nonsmoker, BMI 32.0-32.9,adult, Cold virus, Cough, Chest pain, Shortness of breath [facility] Annotation/Addendum On: 26-Jul-2018 9:56 Encounter Diagnosis: Unspecified Diagnosis End: 26-Jul-2018 12:58 [facility] Office Visit On: 22-Jul-2018 11:25 Encounter Diagnosis: Need for prophylactic vaccination and inoculation against influenza (Renamed from Need for immunization against influenza) End: 25-Jul-2018 9:39 [facility] Office Visit On: 09-May-2018 9:38 Encounter Reason: Follow up acute care visit - The patient does not feel well. Note for Follow up acute care visit: Symptoms started about 1 week ago with knee pain in both knees-pain is getting worse. Pain is differnt End: 09-May-2018 10:35 than the neuropathy pain. Pt describes pain as a sharp ache in both knees. Pt taking 100mg of Gabepentin tid, and ibuprofen daily-not working. Pts knee xrays from 2017 show osteoarthritis.Encounter Diagnosis: BMI 32.0-32.9,adult, Nonsmoker, Pain in both knees, unspecified chronicity, Osteoarthritis of both knees, unspecified osteoarthritis type [facility] Annotation/Addendum On: 24-Apr-2018 7:21 [facility] End: 24-Apr-2018 7:23 Office Visit On: 18-Apr-2018 8:00 Encounter Reason: Follow up for chronic medical issues - The patient feels well with minor complaints, has decreased energy level and is sleeping poorly (broken). Patient has been non-compliant with instructions. Current End: 18-Apr-2018 12:39 medication use: no side effects and non-compliant with dosing regimen. Patient sleeps 5 hours per night. Nutrition: balanced diet., [ADDITIONAL REASON] Follow up tests - Diagnostic tests include EMG/PNCV's. , [ADDITIONAL REASON] Leg Pain - Note for Leg pain: Both leg pain knees and calves, going up steps ok, but getting moving in am and sitting in car very stiff , [ADDITIONAL REASON] Back Pain Lumbar, Chronic - Note for Chronic lumbar back pain: Low back pain and stiffness in am and prolonged sitting Encounter Diagnosis: Nonsmoker, BMI 32.0-32.9,adult, Neuropathic pain, Osteoarthritis, Pain in both knees, unspecified chronicity, Polyneuropathy, Diabetes mellitus type II, controlled, Bipolar affective disorder, mixed, Postmenopausal (Renamed from Postmenopausal status), Encounter for screening mammogram for breast cancer (Renamed from Encounter for screening mammogram for malignant neoplasm of breast) [facility] Office Visit On: 22-Mar-2018 13:05 Encounter Reason: Leg Pain - This condition occurred without any known injury. Symptoms include leg pain and decreased range of motion. The pain is located in the left anterior upper leg, in the left posterior upper leg, End: 22-Mar-2018 15:27 in the left anterior lower leg, in the left posterior lower leg, in the right anterior upper leg, in the right posterior upper leg, in the right anterior lower leg and in the right posterior lower leg. Onset was 2 month(s) ago (has always had problems but has been getting worse within the past couple months). Note for Leg pain: Symptoms have been ongoing-was seen in December for same problem by Eli meade. Pt states she is still having numbness and tingling in both legs and back pain. Has fallen a couple of times in the last few weeks because legs give out. Not taking Lyrica because it was too expen sive. Not sure if taking gabapentin or not. Has tried PT and thinks it makes legs worse. Has not gotten EMG or nerve conduction test that was ordered in December., [ADDITIONAL REASON] Back Pain - This condition occurred without any known injury. The injury involved the lower back. This occurred 2 month(s) ago. Symptoms include back pain. Encounter Diagnosis: Back pain, BMI 34.0-34.9,adult, Nonsmoker, Leg pain , Neuropathic pain, Bilateral leg numbness [facility] Annotation/Addendum On: 07-Mar-2018 22:23 Encounter Diagnosis: Unspecified Diagnosis End: 07-Mar-2018 22:27 [facility] Office Visit On: 03-Feb-2018 10:25 Encounter Reason: Mouth Pain - Symptoms include sore tongue (white). Symptoms are located in the tongue. The patient describes this as worsening. Note for Mouth pain: Symptoms include sore mouth and aviod white patches End: 03-Feb-2018 12:02 on tongue. No fever or chills, sore throat. Does clean dentures daily in solution. Hasn't been on any antibiotics-but is diabetic.Encounter Diagnosis: BMI 34.0- 34.9,adult, Current nonsmoker (Renamed from Current non-smoker), Candidiasis, Sore mouth [facility] Annotation/Addendum On: 21-Jan-2018 15:39 Encounter Diagnosis: Unspecified Diagnosis End: 21-Jan-2018 15:47 [facility] Phone Encounter On: 19-Jan-2018 7:47 Encounter Diagnosis: Diabetes mellitus type II, controlled End: 19-Jan-2018 7:50 [facility] Office Visit On: 18-Jan-2018 14:33 Encounter Reason: Follow up for chronic medical issues - The patient feels well with minor complaints, has decreased energy level and is sleeping poorly (broken). Patient has been non-compliant with instructions. Current End: 18-Jan-2018 16:51 medication use: no side effects and non-compliant with dosing regimen. Patient sleeps 5 hours per night. Nutrition: balanced diet. Note for Follow up for chronic medical issues: Uncertain of medsFeelings of craving, [ADDITIONAL REASON] Follow up tests - Diagnostic tests include other (labs). Date: (01/10/18). Encounter Diagnosis: BMI 34.0-34.9,adult, Current nonsmoker (Renamed from Current non-smoker), Diabetes mellitus type II, controlled [facility] Office Visit On: 03-Jan-2018 9:06 Encounter Reason: Paresthesias - The patient describes the paresthesias as tingling (numbness, tingling in bilateral legs with back pain). The paresthesias affects the right lower extremity and left lower extremity. Note End: 03-Jan-2018 9:56 for Paresthesias: Having worsening trouble lifing legs up to stand or get out of car and more numbness and tingling and pain in lower legs around knees and whole leg. In pats had a nerve test and was told by Dr. Robertson and Damien that she had neuropathy. Was given neurontin then. Now not seeing them. Asking for neurontin.Encounter Diagnosis: BMI 35.0- 35.9,adult, Current nonsmoker (Renamed from Current non-smoker), Bilateral leg numbness, Neuropathic pain [facility] Office Visit On: 23-Dec-2017 9:59 Encounter Reason: Back Pain - This condition occurred without any known injury. The injury involved the lower back. This occurred 1 month(s) ago. Symptoms include back pain.Encounter Diagnosis: BMI 36.0-36.9,adult, End: 23-Dec-2017 11:32 Current nonsmoker (Renamed from Current non-smoker), Low back pain potentially associated with radiculopathy, CKD (chronic kidney disease), stage III, Therapeutic drug monitoring [facility] Annotation/Addendum On: 13-Dec-2017 17:29 Encounter Diagnosis: Hypercholesteremia End: 13-Dec-2017 17:42 [facility] Annotation/Addendum On: 06-Dec-2017 17:44 Encounter Diagnosis: Unspecified Diagnosis End: 06-Dec-2017 17:46 [facility] Office Visit On: 16-Nov-2017 9:31 Encounter Reason: Cold Symptoms - Symptoms include nasal congestion, runny nose and productive cough, while symptoms do not include scratchy throat or sore throat. Onset was 4 day(s) ago. There is no known event that pre End: 16-Nov-2017 10:57 ceded symptom onset. The patient describes this as moderate in severity. Note for Cold symptoms: Symptoms started about 5 days ago with cough, nasal congestion, sneezing, chills, body aches. No sore t hroat, headaches, fever. Has tried Robitussin, and inhaler-not working.Encounter Diagnosis: BMI 36.0-36.9,adult, Current nonsmoker (Renamed from Current non- smoker), Cough, Shortness of breath, Bronchitis [facility] Annotation/Addendum On: 02-Nov-2017 14:22 [facility] End: 02-Nov-2017 14:25 Office Visit On: 02-Nov-2017 8:48 Encounter Reason: Follow up for chronic medical issues - The patient feels well with minor complaints, has decreased energy level and is sleeping poorly (broken). Patient has been compliant with instructions. Current med End: 02-Nov-2017 9:49 ication use: no side effects and compliant with dosing regimen. Patient sleeps 5 hours per night. Nutrition: balanced diet. Note for Follow up for chronic medical issues: Uncertain of medsFeelings of craving, [ADDITIONAL REASON] Follow up tests - Date: (labs 10.12.17). Note for Discuss procedure results: Had labs in Oct and reveiwing printed for pt to take to [facility] , [ADDITIONAL REASON] Weight Gain - Note for Weight gain: Wt gain over last year, and craving for food Encounter Diagnosis: Diabetes mellitus type II, controlled, BMI 36.0-36.9,adult, Current nonsmoker (Renamed from Current non- smoker), Weight gain , Craving for particular food, Stress incontinence, female, Vitamin D deficiency (Renamed from Avitaminosis D) [facility] Annotation/Addendum On: 15-Oct-2017 5:47 Encounter Diagnosis: Vitamin D deficiency (Renamed from Avitaminosis D) End: 15-Oct-2017 5:54 [facility] Office Visit On: 12-Oct-2017 8:48 Encounter Reason: Weight Gain - Symptoms include weight gain and increased appetite. Onset was gradual. The patient is not currently being treated for this problem. Previous presentation included weight gain and increase End: 12-Oct-2017 12:30 d appetite. Note for Weight gain: Wt gain 32 lbs in 4 months, [ADDITIONAL REASON] Depression - Symptoms include depressed mood and poor sleep. Presenting symptoms included poor appetite or overeating. Note for Depression: Just started seeing couselor Mariia Zahng suggesting tweak meds a bit. Has 3 weeks of follow up apts. with counseling. Encounter Diagnosis: Bipolar depression, Polypharmacy [facility] Annotation/Addendum On: 07-Sep-2017 15:54 Encounter Diagnosis: Bipolar disorder End: 07-Sep-2017 16:01 [facility] Office Visit On: 06-Sep-2017 10:37 Encounter Reason: Follow up acute care visit - The patient feeling better since last seen. Patient has been compliant with instructions.Encounter Diagnosis: BMI 36.0-36.9,adult, Current nonsmoker (Renamed from Current non-smoker), End: 06-Sep-2017 9:53 Anxiety and depression, Shortness of breath, Bipolar depression [facility] Office Visit On: 02-Sep-2017 9:41 Encounter Reason: Follow up acute care visit - The patient feels the same. Patient has been compliant with instructions.Encounter Diagnosis: Current nonsmoker (Renamed from Current non-smoker), BMI 35.0-35.9,adult, Shortness of breath, End: 02-Sep-2017 10:29 Anxiety and depression, Abnormal lung sounds [facility] Office Visit On: 30-Aug-2017 9:32 Encounter Reason: Follow up acute care visit - The patient feeling better since last seen. Patient has been compliant with instructions. Current medication use: no side effects and compliant with dosing regimen. Patient End: 30-Aug-2017 11:23 sleeps 6 hours per night. Nutrition: balanced diet.Encounter Diagnosis: BMI 34.0- 34.9,adult, Current nonsmoker (Renamed from Current non-smoker), Abnormal lung sounds, Shortness of breath, Asthma with acute exacerbation [facility] Office Visit On: 26-Aug-2017 10:04 Encounter Reason: Shortness of Breath - Symptoms include dyspnea and fatigue, while symptoms do not include lightheadedness, cough or wheezing. Onset was sudden 7 day(s) ago. There is no known event that preceded symptom End: 26-Aug-2017 11:44 onset. The symptoms occur frequently. The patient describes this as moderate in severity.Encounter Diagnosis: Shortness of breath, Current nonsmoker (Renamed from Current non-smoker), BMI 34.0-34.9,adult, Asthma with acute exacerbation, Abnormal lung sounds [facility] Office Visit On: 16-Aug-2017 15:05 Encounter Reason: Knee Pain - This condition occurred without any known injury (lt knee pain I have arthritis in it). The injury involved the left knee. This occurred 2 week(s) ago.Encounter Diagnosis: BMI 34.0-34.9,adult, End: 16-Aug-2017 17:28 Current nonsmoker (Renamed from Current non-smoker), Osteoarthritis of both knees, unspecified osteoarthritis type, Pain in both knees, unspecified chronicity, Active Meniere's disease, bilateral [facility] Annotation/Addendum On: 13-Aug-2017 9:24 Encounter Diagnosis: Hypertension (Renamed from BP (high blood pressure)) End: 13-Aug-2017 9:26 [facility] Office Visit On: 27-Jul-2017 10:42 Encounter Reason: Follow up for chronic medical issues - The patient feels well with minor complaints (tired, increased appetite), has decreased energy level and is sleeping poorly (broken). Patient has been compliant wi End: 27-Jul-2017 11:30 th instructions. Current medication use: no side effects and compliant with dosing regimen. Patient sleeps 7 hours per night. Nutrition: balanced diet. Note for Follow up for chronic medical issues: Uncertain of meds, [ADDITIONAL REASON] Eating Disorders - Note for Eating disorder: Eating constantly and drinking , [ADDITIONAL REASON] Memory impairment - Note for Memory impairment: Memory issues with forgetfulness having to write things down Encounter Diagnosis: Diabetes mellitus type II, controlled, BMI 33.0-33.9,adult, Osteoarthritis of both knees, unspecified osteoarthritis type, Bipolar affective disorder, mixed, CKD (chronic kidney disease), stage III, Hypertension (Renamed from BP (high blood pressure)) [facility] Office Visit On: 20-Jul-2017 11:00 Encounter Reason: Shoulder Problem - This shoulder problem is without any known injury. Symptoms include shoulder pain and decreased range of motion, while symptoms do not include localized swelling or clicking. Symptoms End: 20-Jul-2017 11:25 are located in the right shoulder. Onset was week(s) ago. The symptoms occur constantly. The patient describes symptoms as worsening. Symptoms are exacerbated by motion at the shoulder. Associated symp toms do not include numbness in the arm, weakness in the arm or pain in the neck. Current treatment includes nonsteroidal anti-inflammatory drugs., [ADDITIONAL REASON] Hip Problem - This condition occurred without any known injury. Symptoms include hip problem. The symptoms are located in the left hip and right hip. The patient describes the hip problem as hip pain, decreased range of motion and difficulty bearing weight. Onset was week(s) ago. T he symptoms occur constantly. The patient describes symptoms as worsening. Associated symptoms include low back pain, while associated symptoms do not include numbness in the leg or weakness of the leg. Current treatment includes nonsteroidal anti-inflammatory drugs. Encounter Diagnosis: BMI 30.0-30.9,adult, Acute bilateral low back pain without sciatica, Acute pain of right shoulder [facility] Annotation/Addendum On: 15-Jun-2017 15:49 [facility] End: 15-Jun-2017 15:51 Office Visit On: 03-Jun-2017 12:08 Encounter Reason: Mouth Pain - Symptoms include sore tongue, while symptoms do not include loss of taste. Symptoms are located in the tongue. Onset was 1 week(s) ago. The patient describes this as worsening.Encounter Diagnosis: BMI 32.0-32.9,adult, End: 03-Jun-2017 13:38 Current nonsmoker (Renamed from Current non-smoker), Mouth pain, Cracked lips, Dry mouth, Burping, Upset stomach, Nausea, Thrush [facility] Phone Encounter On: 21-Apr-2017 14:49 Encounter Diagnosis: Chronic kidney disease (CKD), stage I End: 21-Apr-2017 14:50 [facility] Office Visit On: 20-Apr-2017 8:03 Encounter Reason: Follow up for chronic medical issues - The patient feels well with no complaints, has decreased energy level and is sleeping poorly. Patient has been compliant with instructions. Current medication use: End: 20-Apr-2017 10:58 no side effects and compliant with dosing regimen. Patient sleeps 5 hours per night. Nutrition: balanced diet., [ADDITIONAL REASON] Knee Pain - Note for Knee pain: left knee pain getting PT , [ADDITIONAL REASON] Urinary problems - Note for Urinary problems: leaking with urine 3-4 per day tried meds from [facility] but did not work and still urinary incont He may do surgery Encounter Diagnosis: Diabetes mellitus type II, controlled, BMI 32.0-32.9,adult, Current nonsmoker (Renamed from Current non-smoker), Anxiety and depression, Leg weakness, Hypertension (Renamed from BP (high blood pressure)), MARTHA on CPAP, Chronic kidney disease (CKD), stage I, Urinary Incontinence (Renamed from Absence of bladder continence) [facility] Office Visit On: 13-Apr-2017 9:07 Encounter Reason: Follow up tests - Diagnostic tests include X-Ray. Current symptoms include joint pains.Encounter Diagnosis: Current nonsmoker (Renamed from Current non-smoker), BMI 32.0-32.9,adult, Pain in both knees, unspecified chronicity, End: 13-Apr-2017 15:19 Hypertension (Renamed from BP (high blood pressure)), Osteoarthritis of both knees, unspecified osteoarthritis type [facility] Office Visit On: 08-Apr-2017 14:46 Encounter Reason: Leg Pain - The patient sustained an injury to the left thigh (mid thigh), left knee, right thigh and right knee. This occurred 3 week(s) ago. Symptoms include leg pain, stiffness and decreased range of End: 08-Apr-2017 15:27 motion. The pain is located in the left posterior upper leg. The patient describes the pain as sharp. Onset was sudden 3 week(s) ago.Encounter Diagnosis: BMI 30.0-30.9,adult, Current nonsmoker (Renamed from Current non-smoker), Pain in both knees, unspecified chronicity, Iliotibial band syndrome of both sides, Anxiety and depression [facility] Annotation/Addendum On: 05-Feb-2017 12:46 Encounter Diagnosis: Unspecified Diagnosis End: 05-Feb-2017 12:48 [facility] Office Visit On: 18-Jan-2017 10:25 Encounter Reason: Follow up for chronic medical issues - The patient feels well with minor complaints (Daughter in September), has decreased energy level and is sleeping poorly. Patient has been compliant with End: 18-Jan-2017 11:36 instructions. Current medication use: no side effects, compliant with dosing regimen and considered effective by patient. Patient sleeps 6 (broken) hours per night. Impact of disease: emotional impact- moderate. Nutrition: balanced diet and supplemental vitamins. The medical issues the patient is following up for include asthma, blood sugar issues, cardiac issues, depression, high blood pressure, high cholesterol, hypothyroid, kidney problems and other (elevated lft's, memory loss, IBS, vitamin d def., meniere's disease, obesity )., [ADDITIONAL REASON] Depression - Symptoms include depressed mood and poor sleep. Presenting symptoms included little interest or pleasure in doing things, feeling down, depressed or hopeless and poor appetite or overeating. Note for Depression: crying every day and tearful in office, unable to sleep thought that she was told to go off of zyprexa and threw bottle away, had been on zyprexa for bipolar for a long time Encounter Diagnosis: CKD (chronic kidney disease), stage III, Diabetes mellitus type II, controlled, Anxiety and depression, Current nonsmoker (Renamed from Current non-smoker), BMI 30.0-30.9,adult, Esophagitis, Hypertension (Renamed from BP (high blood pressure)), Bipolar depression, Unspecified abnormal involuntary movements, Sleep apnea [facility] Office Visit On: 04-Jan-2017 9:39 Encounter Reason: Follow up ER - Reason for hospitalization note: (lip, tongue, throat burning. ). Note for Follow up ER: Pt was seen in ER on 12-29 after eating at [employer] and choking on a piece of potatoe had th End: 04-Jan-2017 11:17 amee hilario then went to urgent care, told to go to ER at [facility] diagnosed with Esophagitis was given pepcid and GI cocktail set up for essophagram on tomorrow . Has been on zyprexa, ativan and proz ac with constant lip licking. Main complaint is burning in mouthEncounter Diagnosis: BMI 31.0-31.9,adult, Current nonsmoker (Renamed from Current non-smoker), Esophagitis, Choking, CKD (chronic kidney disease), stage III, Polypharmacy, Candidiasis [facility] Office Visit On: 03-Dec-2016 9:55 Encounter Reason: Back Pain - This condition occurred following a specific injury (lifting at [employer] for years but no fall). The injury involved the lower back (and neck). The injury resulted from lifting. Symptoms i End: 03-Dec-2016 11:09 nclude back pain, spasm and stiffness. Symptoms are located in the midline lower back and symmetrically. The pain radiates to the neck. The patient describes the pain as dull (tight).Encounter Diagnosis: BMI 31.0-31.9,adult, Current nonsmoker (Renamed from Current non-smoker), Neck pain, Muscle spasm, Acute bilateral low back pain without sciatica [facility] Office Visit On: 24-Nov-2016 9:07 Encounter Reason: Follow up for diabetes/glucose intolerance - The patient feels well with no complaints.Encounter Diagnosis: BMI 31.0-31.9,adult, Current nonsmoker (Renamed from Current non-smoker), Coronary artery disease, MARTHA on CPAP, End: 24-Nov-2016 15:24 Chronic kidney disease (CKD), stage I, Diabetes mellitus type II, controlled, Bipolar affective disorder, mixed, Urinary Incontinence (Renamed from Absence of bladder continence), Hypercholesteremia, Anxiety and depression, Vitamin D deficiency (Renamed from Avitaminosis D), Hypothyroidism, Hypertension (Renamed from BP (high blood pressure)), Endometrial hyperplasia without atypia, simple, S/P hysterectomy, High triglycerides, Encounter for screening mammogram for breast cancer (Renamed from Encounter for screening mammogram for malignant neoplasm of breast), Postmenopausal (Renamed from Postmenopausal status), Colonoscopy refused [facility] Office Visit On: 13-Oct-2016 7:47 Encounter Reason: Follow up for chronic medical issues - The patient feels well with minor complaints (but then states 1 year ago and daughter 4 weeks ago) and has decreased energy level. Patient has been co End: 13-Oct-2016 16:49 mpliant with instructions. Current medication use: no side effects, compliant with dosing regimen and considered effective by patient. Patient sleeps 6 hours per night. Impact of disease: emotional impa ct-moderate. Nutrition: balanced diet and supplemental vitamins. The medical issues the patient is following up for include asthma, blood sugar issues, cardiac issues, depression, high blood pressure, h igh cholesterol, hypothyroid, kidney problems and other (elevated lft's, memory loss, IBS, vitamin d def., meniere's disease, obesity ).Encounter Diagnosis: Diabetes mellitus type II, controlled, Current nonsmoker (Renamed from Current non-smoker), BMI 31.0-31.9,adult, Hypertension (Renamed from BP (high blood pressure)), Chronic kidney disease (CKD), stage I, MARTHA on CPAP, Hypothyroidism, Endometrial hyperplasia without atypia, simple, Coronary artery disease, Obesity, unspecified, Vitamin D deficiency (Renamed from Avitaminosis D), Kidney function abnormal, Bipolar affective disorder, mixed, Anxiety and depression, Hypercholesteremia, Goiter (Renamed from Big thyroid), Urinary Incontinence (Renamed from Absence of bladder continence) [facility] Phone Encounter On: 16-Jul-2016 15:30 Encounter Diagnosis: Unspecified Diagnosis End: 16-Jul-2016 15:40 [facility] Office Visit On: 15-Jul-2016 9:12 Encounter Reason: Pre-Op Visit - The procedure scheduled is a Dental Extraction/Surgery on To be determined. The surgeon for the procedure will be Samanta Tomas (Dr Alexa Swanson).Encounter Diagnosis: End: 16-Jul-2016 18:45 Pre-operative exam (Renamed from Preop examination), Encounter for preprocedural laboratory examination (Renamed from Pre-procedural laboratory examination), BMI 30.0-30.9,adult, Current nonsmoker (Renamed from Current non-smoker), Back problem, Renal failure, Kidney function abnormal [facility] Office Visit On: 17-Jun-2016 9:47 Encounter Reason: Follow up tests - Date: (06.10.16).Encounter Diagnosis: Weakness, UTI (lower urinary tract infection), MARTHA on CPAP, Hypokalemia, Hypertension (Renamed from BP (high blood pressure)), Diabetes mellitus type II, controlled, End: 17-Jun-2016 16:08 Chronic kidney disease (CKD), stage I [facility] Phone Encounter On: 16-Jun-2016 9:38 Encounter Diagnosis: UTI (lower urinary tract infection) End: 16-Jun-2016 9:42 [facility] Annotation/Addendum On: 11-Jun-2016 6:47 Encounter Diagnosis: Kidney function abnormal End: 11-Jun-2016 6:51 [facility] Lab Order On: 11-Jun-2016 6:41 Encounter Diagnosis: Hypokalemia End: 11-Jun-2016 6:44 [facility] Office Visit On: 10-Jun-2016 8:42 Encounter Reason: Woke up with shaking feelingEncounter Diagnosis: Unspecified abnormal involuntary movements, Weakness, Hypothyroidism, Coronary artery disease, Vaginal bleeding, Endometrial hyperplasia without atypia, simple, End: 10-Jun-2016 17:06 Bipolar affective disorder, mixed, Hypertension (Renamed from BP (high blood pressure)), MARTHA on CPAP [facility] Office Visit On: 30-Apr-2016 14:51 Encounter Reason: Mouth Pain - The last clinic visit was 2 week(s) ago. No changes in management were made at the last visit. Symptoms include sore tongue, while symptoms do not include inflamed gums or bleeding gums. Sy End: 30-Apr-2016 15:10 mptoms are located in the tongue. The patient describes the pain as aching., [ADDITIONAL REASON] Sore Throat - No changes in management were made at the last visit. Symptoms inc lude sore throat. The symptoms are symmetrical. The symptoms occur constantly. Encounter Diagnosis: Mouth pain, Thrush, Sore throat [facility] Phone Encounter On: 14-Apr-2016 16:01 Encounter Diagnosis: Elevated serum creatinine (790.99) End: 14-Apr-2016 16:32 [facility] Office Visit On: 12-Mar-2016 7:54 Encounter Reason: Cold Symptoms - The last clinic visit was 1 week(s) ago. Management changes made at the last visit include adding medication (sudafed). Symptoms include runny nose, postnasal drainage (clear), scratchy End: 12-Mar-2016 8:44 throat, hoarseness, dry cough and headache. Onset was sudden. The patient describes this as severe (neck and back pain).Encounter Diagnosis: Infection viral [facility] Phone Encounter On: 06-Feb-2016 12:55 Encounter Diagnosis: Dysphagia End: 06-Feb-2016 13:07 [facility] Office Visit On: 04-Feb-2016 9:21 Encounter Reason: Follow up acute care visit - The patient feels the same.Encounter Diagnosis: Asthma in adult, Xerostomia due to dehydration, MARTHA on CPAP, Dysphagia, Anxiety and depression, End: 04-Feb-2016 14:49 Urinary Incontinence (Renamed from Absence of bladder continence), Bipolar affective disorder, mixed [facility] Phone Encounter On: 23-Jan-2016 8:07 Encounter Reason: Follow up acute care visit - The medical issues the patient is following up for include other (strep and thrush).Encounter Diagnosis: Unspecified Diagnosis End: 23-Jan-2016 9:15 [facility] Annotation/Addendum On: 06-Jan-2016 12:04 Encounter Diagnosis: Group beta Strep positive End: 06-Jan-2016 12:06 [facility] Office Visit On: 02-Jan-2016 8:26 Encounter Reason: Sore Throat - Onset was 2 week(s) ago.Encounter Diagnosis: Pharyngitis, acute, Thrush, Xerostomia due to dehydration End: 02-Jan-2016 15:14 [facility] Office Visit On: 12-Dec-2015 10:39 Encounter Reason: Cold Symptoms - Onset was 3 week(s) ago., [ADDITIONAL REASON] Follow up ER - Reason for hospitalization note: (ecg and cxr were okay ). Encounter Diagnosis: Sinusitis, acute, Asthma in adult, Chronic kidney disease (CKD), stage I End: 12-Dec-2015 18:38 [facility] Office Visit On: 03-Dec-2015 9:41 Encounter Reason: Vaginal Itching - Symptoms include vaginal itching and vaginal dryness, while symptoms do not include vaginal burning, vaginal discharge, vaginal tenderness or genital rash. Onset was 2 week(s) ago. The End: 03-Dec-2015 10:18 symptoms occur constantly. The patient describes this as unchanged. Associated symptoms do not include dysuria or pelvic pain. The patient is not currently being treated for this problem.Encounter Diagnosis: Symptomatic menopausal or female climacteric states [facility] Office Visit On: 16-Sep-2015 8:56 Encounter Reason: Annual Medicare Exam - The patient had reviewed and updated the family history, medication/s, past medical history and social history. Yes the patient did have a mini mental status exam done today. The End: 16-Sep-2015 9:42 activities of daily living the patient needs help with are none. The patient has driven in past 6 months and put area rugs through house (kitchen ), but the patient has not had fecal incontinence, had u rinary incontinence, missed or ran out of medications to soon, fallen in the past 6 months, gotten lost, has a medalert necklace or bracelet or put handrails in bathroom. [facility]: PAP smear (needs updated ), mammography (needs updated ) and colonoscopy (needs updated however patient refuse to have done bc she was hospitalized with the last one with infection for 5 days ). 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 The patient has noticed having problems with memory than others. Other providers contributing to the patient's care are other: (Dr. Buffy Alvarez). Encounter Diagnosis: Well woman exam, BMI 33.0-33.9,adult, Current nonsmoker (Renamed from Current non-smoker), Encounter for screening mammogram for breast cancer (Renamed from Encounter for screening mammogram for malignant neoplasm of breast), Diabetes mellitus type II, controlled, Need for Tdap vaccination (Renamed from Need for ovtcrpuced-gnhskcc-vwglzvqzh (Tdap) vaccine, adult/adolescent), Goiter (Renamed from Big thyroid), Coronary artery disease, Vitamin D deficiency (Renamed from Avitaminosis D), Elevated LFTs, Hypercholesteremia, Allergic rhinitis, Memory loss (Renamed from Amnesia), Fatigue, Irritable bowel syndrome (Renamed from Functional bowel disease), Hypertension (Renamed from BP (high blood pressure)), Anxiety and depression, Chronic kidney disease (CKD), stage I, Insomnia, persistent, Mononeuritis of lower extremity, Active Meniere's disease, bilateral, Hypothyroidism, Obesity, unspecified, Carotid stenosis, Bipolar affective disorder, mixed, Asthma in adult, Urinary Incontinence (Renamed from Absence of bladder continence) [facility] Phone Encounter On: 14-Jun-2015 9:17 Encounter Diagnosis: Diabetes, Type II, controlled (250.00) End: 14-Jun-2015 9:22 [facility] Office Visit On: 13-Jun-2015 13:30 Encounter Reason: Follow up for chronic medical issues - The patient feels well with minor complaints and has decreased energy level. Patient has been compliant with instructions. Current medication use: no side effects, End: 13-Jun-2015 13:57 compliant with dosing regimen and considered effective by patient. Patient sleeps 7 hours per night. Impact of disease: emotional impact-moderate. Nutrition: balanced diet and supplemental vitamins. Th e medical issues the patient is following up for include asthma, blood sugar issues, cardiac issues, depression, high blood pressure, high cholesterol, hypothyroid, kidney problems and other (elevated l ft's, memory loss, IBS, vitamin d def., meniere's disease, obesity ).Encounter Diagnosis: Diabetes, Type II, controlled (250.00), Meniere's disease, unspecified (386.00), Carotid Stenosis (433.10), BIPOLAR I DISORDER, MOST RECENT EPISODE (OR CURRENT) MIXED, UNSPECIFIED DEGREE (296.60), GENERAL SYMPTOMS; INSOMNIA WITH SLEEP APNEA, UNSPECIFIED (780.51), Memory loss (Renamed from Amnesia), Mononeuritis of lower limb, unspecified (355.8), DEPRESSIVE DISORDER, NOT ELSEWHERE CLASSIFIED (311.), Allergic rhinitis, Fatigue, Elevated LFT (790.6), Well Woman Exam (V72.31) (Pap,Mammo,Routine Female) (Renamed from Well Woman V72.31 (p,m)), Chronic kidney disease (CKD), stage I, Hypertension (Renamed from BP (high blood pressure)), Hypercholesteremia (272.0), Hypothyroidism(244.9), Vitamin D deficiency (Renamed from Avitaminosis D), Asthma, unspecified type, without mention of status asthmaticus (493.90), Irritable bowel syndrome (Renamed from Functional bowel disease), Obesity,unspecified (278.00), Coronary artery disease, Goiter (Renamed from Big thyroid) [facility] Phone Encounter On: 11-Jun-2015 17:02 Encounter Diagnosis: Diabetes, Type II, controlled (250.00), Hypercholesteremia (272.0), Vitamin D deficiency (Renamed from Avitaminosis D), Hypothyroidism(244.9) End: 11-Jun-2015 17:04 [facility] Phone Encounter On: 11-Feb-2015 9:28 Encounter Diagnosis: Chronic kidney disease (CKD), stage I End: 11-Feb-2015 9:32 [facility] Phone Encounter On: 04-Feb-2015 13:54 Encounter Diagnosis: Unspecified disorder of kidney and ureter (593.9) End: 04-Feb-2015 13:58 [facility] Office Visit On: 17-Jan-2015 9:20 Encounter Reason: Follow up for chronic medical issues - The patient feels well with minor complaints, has decreased energy level and is sleeping poorly. Patient has been compliant with instructions. Current medication u End: 17-Jan-2015 10:21 se: no side effects, compliant with dosing regimen and considered effective by patient. Patient sleeps 6 hours per night. Impact of disease: emotional impact-moderate. Nutrition: balanced diet and suppl emental vitamins. The medical issues the patient is following up for include asthma, blood sugar issues, cardiac issues, depression (anxiety/bipolar ), high blood pressure, high cholesterol, hypothyroid and other (obesity, MARTHA, IBS, memory loss, vitamin d def., insomnia, fatigue, elevated LFT's ).Encounter Diagnosis: Diabetes, Type II, controlled (250.00), Allergic rhinitis, DEPRESSIVE DISORDER, NOT ELSEWHERE CLASSIFIED (311.), Hypothyroidism(244.9), Fatigue, Well Woman Exam (V72.31) (Pap,Mammo,Routine Female) (Renamed from Well Woman V72.31 (p,m)), Elevated LFT (790.6), Vitamin D deficiency (Renamed from Avitaminosis D), BIPOLAR I DISORDER, MOST RECENT EPISODE (OR CURRENT) MIXED, UNSPECIFIED DEGREE (296.60), Carotid Stenosis (433.10), GENERAL SYMPTOMS; INSOMNIA WITH SLEEP APNEA, UNSPECIFIED (780.51), Mononeuritis of lower limb, unspecified (355.8), Memory loss (Renamed from Amnesia), Irritable bowel syndrome (Renamed from Functional bowel disease), Meniere's disease, unspecified (386.00), Asthma, unspecified type, without mention of status asthmaticus (493.90), Obesity,unspecified (278.00), Goiter (Renamed from Big thyroid), Coronary artery disease, Hypertension (Renamed from BP (high blood pressure)), Hypercholesteremia (272.0), Unspecified disorder of kidney and ureter (593.9), Breast cancer screening [facility] Refill Request On: 22-Nov-2014 10:24 Encounter Diagnosis: Meniere's disease, unspecified (386.00) End: 22-Nov-2014 10:25 [facility] Refill Request On: 11-Oct-2014 7:28 Encounter Diagnosis: Urinary Incontinence (Renamed from Absence of bladder continence) End: 11-Oct-2014 7:31 [facility] Office Visit On: 20-Aug-2014 8:19 Encounter Reason: Follow up for chronic medical issues - The patient feels well with minor complaints, has good energy level and is sleeping well. Patient has been compliant with instructions. Current medication use: no End: 20-Aug-2014 8:46 side effects, compliant with dosing regimen and considered effective by patient. Patient sleeps 8 hours per night. Impact of disease: emotional impact-moderate. Nutrition: balanced diet and supplemental vitamins. The medical issues the patient is following up for include asthma, blood sugar issues, cardiac issues, depression, high blood pressure, high cholesterol, hypothyroid and other (urinary incont., obesity, vitamin d def., elevated lft's ). Encounter Diagnosis: Diabetes, Type II, controlled (250.00), Vitamin D deficiency (Renamed from Avitaminosis D), Elevated LFT (790.6), BIPOLAR I DISORDER, MOST RECENT EPISODE (OR CURRENT) MIXED, UNSPECIFIED DEGREE (296.60), GENERAL SYMPTOMS; INSOMNIA WITH SLEEP APNEA, UNSPECIFIED (780.51), Meniere's disease, unspecified (386.00), Carotid Stenosis (433.10), DEPRESSIVE DISORDER, NOT ELSEWHERE CLASSIFIED (311.), Asthma, unspecified type, without mention of status asthmaticus (493.90), Allergic rhinitis, Hypothyroidism(244.9), Well Woman Exam (V72.31) (Pap,Mammo,Routine Female) (Renamed from Well Woman V72.31 (p,m)), Fatigue, Goiter (Renamed from Big thyroid), Obesity,unspecified (278.00), Coronary artery disease, Hypercholesteremia (272.0), Left shoulder pain, Hypertension (Renamed from BP (high blood pressure)), Back pain, Hyponatremia, Memory loss (Renamed from Amnesia), Mononeuritis of lower limb, unspecified (355.8), Irritable bowel syndrome (Renamed from Functional bowel disease) [facility] Office Visit On: 14-May-2014 8:27 Encounter Reason: Follow up for chronic medical issues - The patient feels well with minor complaints and has decreased energy level. Patient has been compliant with instructions. Current medication use: no side effects, End: 14-May-2014 9:23 compliant with dosing regimen and considered effective by patient. Patient sleeps 7 hours per night. Impact of disease: emotional impact-moderate. Nutrition: balanced diet and supplemental vitamins. Th e medical issues the patient is following up for include asthma, blood sugar issues, cardiac issues, depression, high blood pressure, high cholesterol, hypothyroid and other (allergic rhinitis, goiter, obesity, vitamin d def., meniere's, memory loss, urin. incont., elevated lft's, insomnia, IBS).Encounter Diagnosis: Diabetes, Type II, controlled (250.00), Asthma, unspecified type, without mention of status asthmaticus (493.90), DEPRESSIVE DISORDER, NOT ELSEWHERE CLASSIFIED (311.), Allergic rhinitis, Well Woman Exam (V72.31) (Pap,Mammo,Routine Female) (Renamed from Well Woman V72.31 (p,m)), Hypothyroidism(244.9), Carotid Stenosis (433.10), Elevated LFT (790.6), Vitamin D deficiency (Renamed from Avitaminosis D), Urinary Incontinence (Renamed from Absence of bladder continence), Hypercholesteremia (272.0), BIPOLAR I DISORDER, MOST RECENT EPISODE (OR CURRENT) MIXED, UNSPECIFIED DEGREE (296.60), Meniere's disease, unspecified (386.00), GENERAL SYMPTOMS; INSOMNIA WITH SLEEP APNEA, UNSPECIFIED (780.51), Fatigue, Hyponatremia, Back pain, Memory loss (Renamed from Amnesia), Irritable bowel syndrome (Renamed from Functional bowel disease), Mononeuritis of lower limb, unspecified (355.8), Hypertension (Renamed from BP (high blood pressure)), Obesity,unspecified (278.00), Goiter (Renamed from Big thyroid), Left shoulder pain, Coronary artery disease [facility] Phone Encounter On: 01-May-2014 15:39 Encounter Diagnosis: Hyponatremia End: 01-May-2014 15:51 [facility] Office Visit On: 30-Apr-2014 14:47 Encounter Reason: Chest Pain - Symptoms include chest pain and cough. The pain is located in the epigastrium. The pain radiates to the back. The patient describes the pain as sharp. Onset was sudden 3 week(s) ago. Note f End: 30-Apr-2014 21:39 or Chest pain: dry cough hurts into back no fever- more than usual sob- pain is dull and heavy- never had before not worse with actiivity - comes and goes - not sure what makes worse-- doesnt thinkfoo d makes worse- no travel no blood clot hx cough dry - no leg swellingEncounter Diagnosis: Chest pain, Back pain, Pneumonitis [facility] Office Visit On: 12-Feb-2014 10:13 Encounter Reason: Follow up for chronic medical issues - The patient does not feel well and has decreased energy level. Patient has been compliant with instructions. Current medication use: no side effects and compliant End: 12-Feb-2014 11:18 with dosing regimen. Patient sleeps 8 hours per night. Impact of disease: emotional impact-moderate. Nutrition: balanced diet and supplemental vitamins. The medical issues the patient is following up fo r include asthma, blood sugar issues, cardiac issues, depression (anxiety ), gastric reflux, high blood pressure, high cholesterol, hypothyroid and other (elevated LFT's, obesity, vitamin d def., IBS, memory loss ).Encounter Diagnosis: Diabetes, Type II, controlled (250.00), Hypertension (Renamed from BP (high blood pressure)), Irritable bowel syndrome (Renamed from Functional bowel disease), Well Woman Exam (V72.31) (Pap,Mammo,Routine Female) (Renamed from Well Woman V72.31 (p,m)), Elevated serum creatinine (790.99), Mononeuritis of lower limb, unspecified (355.8), Goiter (Renamed from Big thyroid), Meniere's disease, unspecified (386.00), Fatigue, GENERAL SYMPTOMS; INSOMNIA WITH SLEEP APNEA, UNSPECIFIED (780.51), Obesity,unspecified (278.00), Memory loss (Renamed from Amnesia), DEPRESSIVE DISORDER, NOT ELSEWHERE CLASSIFIED (311.), BIPOLAR I DISORDER, MOST RECENT EPISODE (OR CURRENT) MIXED, UNSPECIFIED DEGREE (296.60), Hypercholesteremia (272.0), Urinary Incontinence (Renamed from Absence of bladder continence), Vitamin D deficiency (Renamed from Avitaminosis D), Elevated LFT (790.6), Carotid Stenosis (433.10), Allergic rhinitis, Hypothyroidism(244.9), Asthma, unspecified type, without mention of status asthmaticus (493.90) [facility] Office Visit On: 07-Feb-2014 10:34 Encounter Reason: Incontinence - The last clinic visit was month(s) ago. No changes in management were made at the last visit. Symptoms include incontinence, while symptoms do not include abdominal pain or pelvic pain. T End: 07-Feb-2014 11:18 he patient describes the incontinence as large volume. Onset was month(s) ago.Encounter Diagnosis: Urinary Incontinence (Renamed from Absence of bladder continence) [facility] Annotation/Addendum On: 06-Feb-2014 10:43 Encounter Diagnosis: Vitamin D deficiency (Renamed from Avitaminosis D) End: 06-Feb-2014 10:44 [facility] Office Visit On: 15-Jan-2014 8:26 Encounter Reason: Urinary problems - The onset of the urinary problems has been sudden and they have been occurring in a persistent pattern for 5 days. The course has been constant. The urinary problems are described as End: 15-Jan-2014 8:42 moderate. The urinary problem is characterized as frequency and urgency. There has been no associated fever / chills, back pain, nausea or blood in urine.Encounter Diagnosis: SYMPTOM, FREQUENCY, URINARY (788.41), UTI (lower urinary tract infection) [facility] Office Visit On: 13-Nov-2013 10:34 Encounter Reason: Follow up for chronic medical issues - The patient does not feel well and has decreased energy level. Patient has been compliant with instructions. Current medication use: no side effects, compliant wit End: 13-Nov-2013 11:30 h dosing regimen and considered effective by patient. Patient sleeps 9 hours per night. Impact of disease: emotional impact-moderate. Nutrition: balanced diet and supplemental vitamins. The medical issu es the patient is following up for include asthma, blood sugar issues, cardiac issues, depression (anxiety, bipolar ), high blood pressure, high cholesterol, hypothyroid and other (obesity, gait disturb ance, MARTHA, vitamin d def., allergic rhinitis, memory loss, IBS, elevated LFT's ).Encounter Diagnosis: Diabetes, Type II, controlled (250.00), Fatigue, Meniere's disease, unspecified (386.00), Well Woman Exam (V72.31) (Pap,Mammo,Routine Female) (Renamed from Well Woman V72.31 (p,m)), Memory loss (Renamed from Amnesia), Obesity,unspecified (278.00), Elevated serum creatinine (790.99), Disequilibrium of Gait(781.2), GENERAL SYMPTOMS; INSOMNIA WITH SLEEP APNEA, UNSPECIFIED (780.51), Balance disorder (781.99), Carotid Stenosis (433.10), Irritable bowel syndrome (Renamed from Functional bowel disease), Mononeuritis of lower limb, unspecified (355.8), DEPRESSIVE DISORDER, NOT ELSEWHERE CLASSIFIED (311.), Vitamin D deficiency (Renamed from Avitaminosis D), Goiter (Renamed from Big thyroid), Hypertension (Renamed from BP (high blood pressure)), Elevated LFT (790.6), Allergic rhinitis, Falling, BIPOLAR I DISORDER, MOST RECENT EPISODE (OR CURRENT) MIXED, UNSPECIFIED DEGREE (296.60), Asthma, unspecified type, without mention of status asthmaticus (493.90), Hypothyroidism(244.9), Hypercholesteremia (272.0) [facility] Office Visit On: 11-Oct-2013 12:39 Encounter Reason: UTI - The urinary symptoms are described as painful urination, frequency and urgency. The symptoms have been occurring for 2 days and have been constant. The urine is described as clear. The symptoms h End: 11-Oct-2013 13:45 ave been associated with fever, while the symptoms have not been associated with perineal pain or low back pain. There is no history of sexual contact with a person having an STD or use of tampons. Ther e is a medical history of diabetes, while there is no history of current or kidney stones. The patient denies the use of oral contraceptives, antibiotics, hormone replacement therapy or pyridium/uristat.Encounter Diagnosis: Dysuria (Renamed from Difficult or painful urination) [facility] Phone Encounter On: 24-Aug-2013 12:54 Encounter Diagnosis: Hypertension (401.9) End: 24-Aug-2013 12:57 [facility] Phone Encounter On: 26-Jul-2013 14:15 Encounter Diagnosis: Elevated LFT (790.6) End: 26-Jul-2013 14:16 [facility] Annotation/Addendum On: 24-Jul-2013 15:47 Encounter Diagnosis: Hypertension (401.9) End: 24-Jul-2013 15:48 [facility] Office Visit On: 24-Jul-2013 14:46 Encounter Reason: Follow up, Diagnostic Procedure Results - Diagnostic tests include ECHO (and carotids ). Date: (07-12-13 MRI brain). Follow up visit with no current symptoms.Encounter Diagnosis: Memory loss (780.93), End: 24-Jul-2013 15:36 Weakness Of Distal Arms And Legs (728.87), Meniere's disease, unspecified (386.00), Elevated serum creatinine (790.99), Need for prophylactic vaccination and inoculation against influenza (V04.81), Well Woman Exam (V72.31) (Pap,Mammo,Routine Female) (Renamed from Well Woman V72.31 (p,m)) [facility] Historical Summary On: 17-Jul-2013 13:10 Encounter Diagnosis: Carotid Stenosis (433.10) End: 17-Jul-2013 13:11 [facility] Lab Order On: 29-Jun-2013 13:38 Encounter Diagnosis: Elevated serum creatinine (790.99) End: 29-Jun-2013 13:40 [facility] Office Visit On: 27-Jun-2013 8:23 Encounter Reason: Follow up for chronic medical issues - The patient feels well with no complaints and is sleeping well. Patient has been compliant with instructions. Current medication use: no side effects. Patient slee End: 27-Jun-2013 9:05 ps 7 hours per night. Impact of disease: emotional impact-mild. Nutrition: balanced diet and supplemental vitamins. The medical issues the patient is following up for include asthma, blood sugar issues, cardiac issues, depression (major ), gastric reflux, high blood pressure, high cholesterol, hypothyroid and other (obesity, vertigo, tremors, elevated lft's )., [ADDITIONAL REASON] Follow up tests - Date: (06.16.13). Encounter Diagnosis: Diabetes, Type II, controlled (250.00), Weakness Of Distal Arms And Legs (728.87), Memory loss (780.93), Meniere's disease, unspecified (386.00), Hypokalemia (276.8) [facility] Phone Encounter On: 20-Jun-2013 16:51 Encounter Diagnosis: Hypokalemia (276.8) End: 20-Jun-2013 16:52 [facility] Office Visit On: 16-Jun-2013 9:27 Encounter Reason: Menieres Disease - Symptoms include tinnitus, loss of balance and lightheadedness. Symptoms are located in the left ear and the right ear. Onset was sudden. The symptoms occur constantly. The patient de End: 16-Jun-2013 15:17 scribes this as severe and worsening. Symptoms are exacerbated by head motion.Encounter Diagnosis: Balance disorder (781.99), Weakness Of Distal Arms And Legs (728.87), Memory loss (780.93) [facility] Office Visit On: 16-May-2013 10:03 Encounter Reason: Urinary problems - The onset of the urinary problems has been sudden and they have been occurring in a persistent pattern for 1 week. The course has been increasing. The urinary problems are described a End: 16-May-2013 10:45 s moderate. The urinary problem is characterized as frequency and urgency. There has been no associated fever / chills, back pain, nausea or blood in urine.Encounter Diagnosis: SYMPTOM, FREQUENCY, URINARY (788.41) [facility] Office Visit On: 05-May-2013 10:19 Encounter Reason: Follow up tests - Diagnostic tests include other (labs). Date: (04/28/13). Past medical history includes asthma, emotional problems and other (DM, CHO, thyroid issue).Encounter Diagnosis: Hypokalemia (276.8), Hypertension (401.9), End: 05-May-2013 11:23 Weakness Of Distal Arms And Legs (728.87), Vitamin D deficiency (268.9) [facility] Annotation/Addendum On: 01-May-2013 13:49 Encounter Diagnosis: Hypokalemia (276.8) End: 01-May-2013 14:04 [facility] Office Visit On: 28-Apr-2013 9:00 Encounter Reason: Fatigue - The onset of the fatigue has been sudden and has been occurring in a persistent pattern for 2 days. The course has been constant. The fatigue occurs all the time and interferes with normal da End: 28-Apr-2013 10:20 oscar activities. The symptoms have been associated with cough (unproductive) and excessive sleeping (14 hrs qd), while the symptoms have not been associated with abdominal pain, chest pain, depression, d iplopia, edema, gasping in sleep, headache, muscle weakness, myalgia, runny nose or sleep disturbance., [ADDITIONAL REASON] Menieres Disease - Symptoms include vertigo, tinnitus and loss of balance, while symptoms do not include nausea. Symptoms are located in the right ear. The patient describes the tinnitus as high-pitched. The symptoms occur constantly. The patient describes this as moderate in sever ity and worsening. Symptoms are exacerbated by fatigue. Symptoms are relieved by diuretics and antiemetics. Encounter Diagnosis: Weakness Of Distal Arms And Legs (728.87), Dizziness (780.4), Shortness of breath (786.05), Falling (E888.9) [facility] Office Visit On: 28-Mar-2013 10:17 Encounter Reason: Follow up for chronic medical issues - The patient feels well with no complaints and is sleeping well. Patient has been compliant with instructions. Current medication use: no side effects, compliant wi End: 28-Mar-2013 11:23 th dosing regimen and considered effective by patient. Patient sleeps 7 hours per night. Impact of disease: emotional impact-mild. Nutrition: balanced diet and supplemental vitamins. The medical issues the patient is following up for include asthma, blood sugar issues, cardiac issues, depression (major ), gastric reflux, high blood pressure, high cholesterol, hypothyroid and other (obesity, vertigo, tremors, elevated lft's ).Encounter Diagnosis: Diabetes, Type II, controlled (250.00), Hypothyroidism(244.9), Elevated LFT (790.6), Meniere's disease, unspecified (386.00), Irritable bowel syndrome (564.1), CHRONIC OBSTRUCTIVE ASTHMA WITH (ACUTE) EXACERBATION (493.22), BIPOLAR I DISORDER, MOST RECENT EPISODE (OR CURRENT) MIXED, UNSPECIFIED DEGREE (296.60), Asthma, unspecified type, without mention of status asthmaticus (493.90), Thrombocytopenia, unspecified (287.5), Hypokalemia (276.8), Hypercholesteremia (272.0) , Myalgia and myositis, unspecified (729.1), GENERAL SYMPTOMS; INSOMNIA WITH SLEEP APNEA, UNSPECIFIED (780.51), Other and unspecified hyperlipidemia (272.4), Disequilibrium of Gait(781.2), Mononeuritis of lower limb, unspecified (355.8), Allergic rhinitis (477.9), Goiter (240.9), DEPRESSIVE DISORDER, NOT ELSEWHERE CLASSIFIED (311.), Well Woman Exam (V72.31) (Pap,Mammo,Routine Female) (Renamed from Well Woman V72.31 (p,m)), Obesity,unspecified (278.00) [facility] Office Visit On: 08-Dec-2012 14:05 Encounter Reason: Follow up acute care visit - The patient feeling better since last seen. Patient has been compliant with instructions. Current medication use: no side effects and compliant with dosing regimen. Patient End: 08-Dec-2012 14:50 sleeps 6 hours per night. Nutrition: balanced diet.Encounter Diagnosis: Cough (786.2) [facility] Office Visit On: 25-Nov-2012 8:46 Encounter Reason: Follow up acute care visit - The patient feeling better since last seen. Patient has been compliant with instructions. Current medication use: no side effects and compliant with dosing regimen. Patient End: 25-Nov-2012 9:30 sleeps 7 hours per night. Nutrition: balanced diet.Encounter Diagnosis: Cough (786.2), CHRONIC OBSTRUCTIVE ASTHMA WITH (ACUTE) EXACERBATION (493.22), ACUTE PHARYNGITIS (462.) [facility] Office Visit On: 21-Nov-2012 16:19 Encounter Reason: Sore Throat - No changes in management were made at the last visit. Symptoms include sore throat (more irritated than sore, dry), while symptoms do not include dysphagia, nasal congestion, postnasal cj End: 21-Nov-2012 20:15 inage, swollen glands, myalgias, drooling, fever or chills. The symptoms are symmetrical. There is no radiation. The patient describes the pain as dull (scratchy). Onset was sudden 1 day(s) ago. The sym ptoms occur constantly. The episodes last for 1 day. The patient describes this as mild and unchanged. Associated symptoms include cough (dry cough for several weeks). Note for Sore throat: just start ed last night more scratchy - no colored draiange no fever - no exposure to strepEncounter Diagnosis: ACUTE PHARYNGITIS (462.), Cough (786.2) [facility] Office Visit On: 07-Nov-2012 10:33 Encounter Reason: Follow up, Diagnostic Procedure Results - Diagnostic tests include other (labs ). Date: (11-04-2012). Current symptoms include other (continues with vertigo sx. ).Encounter Diagnosis: End: 07-Nov-2012 11:00 Asthma, unspecified type, without mention of status asthmaticus (493.90), Stress incontinence, female (625.6), BIPOLAR I DISORDER, MOST RECENT EPISODE (OR CURRENT) MIXED, UNSPECIFIED DEGREE (296.60), Meniere's disease, unspecified (386.00), Irritable bowel syndrome (564.1), Hypokalemia (276.8) [facility] Annotation/Addendum On: 04-Nov-2012 9:55 Encounter Diagnosis: Irritable bowel syndrome (564.1) End: 04-Nov-2012 10:00 [facility] Annotation/Addendum On: 04-Nov-2012 8:59 Encounter Diagnosis: Meniere's disease, unspecified (386.00) End: 04-Nov-2012 9:02 [facility] Annotation/Addendum On: 31-Oct-2012 8:26 Encounter Diagnosis: Unspecified Diagnosis End: 31-Oct-2012 8:28 [facility] Office Visit On: 18-Oct-2012 9:49 Encounter Reason: Follow up for chronic medical issues - The patient feels well with no complaints and is sleeping well. Patient has been compliant with instructions. Current medication use: no side effects, compliant wi End: 18-Oct-2012 10:41 th dosing regimen and considered effective by patient. Patient sleeps 7 hours per night. Impact of disease: emotional impact-mild. Nutrition: balanced diet and supplemental vitamins. 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), Unspecified hearing loss (389.9), Tremors (781.0), ALOP[place]IA NOS (704.00), Mononeuritis of upper limb, unspecified (354.9), Irritable bowel syndrome (564.1), Disequilibrium of Gait(781.2), Asthma, unspecified type, without mention of status asthmaticus (493.90), GENERAL SYMPTOMS; INSOMNIA WITH SLEEP APNEA, UNSPECIFIED (780.51), Mononeuritis of lower limb, unspecified (355.8), Myalgia and myositis, unspecified (729.1), Hypercholesteremia (272.0), Goiter (240.9), Other and unspecified hyperlipidemia (272.4), BIPOLAR I DISORDER, MOST RECENT EPISODE (OR CURRENT) MIXED, UNSPECIFIED DEGREE (296.60), Hypothyroidism(244.9), Allergic rhinitis (477.9), Thrombocytopenia, unspecified (287.5), Elevated LFT (790.6), Well Woman Exam (V72.31) (Pap,Mammo,Routine Female) (Renamed from Well Woman V72.31 (p,m)), Dermatophytosis of nail (110.1), Stress incontinence, female (625.6), Symptomatic menopausal or female climacteric states (627.2), Carpal tunnel syndrome (354.0), Unspecified disorder of kidney and ureter (593.9), Shortness of breath (786.05), Asthma with Acute Exacerbation (493.02), SYMPTOM, FREQUENCY, URINARY (788.41) [facility] Office Visit On: 01-Jul-2012 13:46 Encounter Reason: Urinary problems - The onset of the urinary problems has been sudden and they have been occurring in a persistent pattern for 3 days. The course has been increasing. The urinary problems are described a End: 01-Jul-2012 14:34 s severe. The urinary problem is characterized as frequency, hesitancy, urgency and painful urination. There has been no associated fever / chills, back pain, nausea or blood in urine.Encounter Diagnosis: Dysuria (788.1), Need for prophylactic vaccination and inoculation against influenza (V04.81) [facility] Office Visit On: 21-Apr-2012 13:48 Encounter Reason: Follow up acute care visit - The patient feeling better since last seen. Current medication use: no side effects. Patient sleeps 7 hours per night. The medical issues the patient is following up for include other. End: 21-Apr-2012 14:46 Encounter Diagnosis: BIPOLAR I DISORDER, MOST RECENT EPISODE (OR CURRENT) MIXED, UNSPECIFIED DEGREE (296.60) [facility] Office Visit On: 10-Mar-2012 11:02 Encounter Reason: Follow up acute care visit - The patient feeling better since last seen and improving. Patient has been compliant with instructions. Current medication use: no side effects, compliant with dosing regime End: 10-Mar-2012 11:47 n and considered effective by patient. Patient sleeps 7 hours per night. Impact of disease: emotional impact-moderate. Nutrition: balanced diet and supplemental vitamins. The medical issues the patient is following up for include other (nausea, anxiety, bipolar/manic episodes ).Encounter Diagnosis: BIPOLAR I DISORDER, MOST RECENT EPISODE (OR CURRENT) MIXED, UNSPECIFIED DEGREE (296.60), Diabetes, Type II, controlled (250.00), Unspecified disorder of kidney and ureter (593.9), Hypothyroidism(244.9), Hypercholesteremia (272.0) [facility] Office Visit On: 25-Feb-2012 10:44 Encounter Reason: Follow up tests - Date: (01.26.12).Encounter Diagnosis: BIPOLAR I DISORDER, MOST RECENT EPISODE (OR CURRENT) MIXED, UNSPECIFIED DEGREE (296.60) End: 25-Feb-2012 11:23 [facility] Office Visit On: 26-Nov-2011 9:35 Encounter Reason: Follow up acute care visit - The patient feeling better since last seen and improving. Patient has been compliant with instructions. Current medication use: no side effects, compliant with dosing regime End: 26-Nov-2011 10:11 n and considered effective by patient. Patient sleeps 7 hours per night. Impact of disease: emotional impact-mild. Nutrition: balanced diet and supplemental vitamins. The medical issues the patient is following up for include URI. Encounter Diagnosis: BRONCHITIS, NOT SPECIFIED ACUTE OR CHRONIC (490.) [facility] Office Visit On: 23-Nov-2011 14:01 Encounter Reason: Follow up acute care visit - The patient does not feel well and worsening. Patient has been compliant with instructions. Current medication use: no side effects, compliant with dosing regimen and not co End: 23-Nov-2011 17:27 nsidered effective by patient. Patient sleeps 7 hours per night. Impact of disease: emotional impact-mild. Nutrition: balanced diet and supplemental vitamins. The medical issues the patient is following up for include URI.Encounter Diagnosis: Shortness of breath (786.05), BRONCHITIS, NOT SPECIFIED ACUTE OR CHRONIC (490.) [facility] Office Visit On: 16-Nov-2011 12:31 Encounter Reason: Cough - The onset of the cough has been 3 days ago. The cough is characterized as dry. The cough occurs all the time. The symptoms are not aggravated by supine posture, meals or exercise. The symptoms End: 16-Nov-2011 12:48 have been associated with dyspnea, hoarseness, runny nose and sore throat, while the symptoms have not been associated with fever, headache or wheezing.Encounter Diagnosis: Shortness of breath (786.05), Need for prophylactic vaccination and inoculation against influenza (V04.81), BRONCHITIS, NOT SPECIFIED ACUTE OR CHRONIC (490.), Cough (786.2) [facility] Office Visit On: 28-Sep-2011 9:59 Encounter Reason: Follow up acute care visit - The patient feeling better since last seen and improving. Patient has been compliant with instructions. Current medication use: no side effects, compliant with dosing regime End: 28-Sep-2011 10:31 n and considered effective by patient. Patient sleeps 7 hours per night. Impact of disease: emotional impact-moderate. Nutrition: balanced diet and supplemental vitamins. The medical issues the patient is following up for include depression. Encounter Diagnosis: DEPRESSIVE DISORDER, NOT ELSEWHERE CLASSIFIED (311.), Diabetes, Type II, controlled (250.00), Hypothyroidism(244.9) [facility] Office Visit On: 14-Sep-2011 9:46 Encounter Diagnosis: Diabetes, Type II, controlled (250.00), Dysuria (788.1), DEPRESSIVE DISORDER, NOT ELSEWHERE CLASSIFIED (311.) End: 14-Sep-2011 10:21 [facility] Office Visit On: 26-Aug-2011 11:49 Encounter Reason: Urinary problems - The onset of the urinary problems has been sudden and they have been occurring in a persistent pattern for hours. The course has been constant. The urinary problems are described as m End: 26-Aug-2011 14:05 oderate. The urinary problem is characterized as frequency, hesitancy, urgency, painful urination and incomplete bladder emptying. There has been no associated fever / chills, back pain, nausea or blood in urine.Encounter Diagnosis: Dysuria (788.1) [facility] Phone Encounter On: 03-Aug-2011 16:48 Encounter Diagnosis: Unspecified Diagnosis End: 03-Aug-2011 16:51 [facility] Phone Encounter On: 27-Jul-2011 17:04 Encounter Diagnosis: DEPRESSIVE DISORDER, NOT ELSEWHERE CLASSIFIED (311.) End: 27-Jul-2011 17:07 [facility] Phone Encounter On: 29-Jun-2011 17:49 Encounter Diagnosis: Elevated LFT (790.6) End: 29-Jun-2011 17:50 [facility] Office Visit On: 11-Jun-2011 9:28 Encounter Reason: Follow up for chronic medical issues - The patient feels well with no complaints and is sleeping well. Patient has been compliant with instructions. Current medication use: no side effects, compliant wi End: 11-Jun-2011 10:06 th dosing regimen and considered effective by patient. Patient sleeps 7 hours per night. Impact of disease: emotional impact-mild. Nutrition: balanced diet and supplemental vitamins. The medical issues the patient is following up for include asthma, blood sugar issues, cardiac issues, depression (major ), gastric reflux, high blood pressure, high cholesterol, hypothyroid and other (obesity, vertigo, tremors, elevated lft's ).Encounter Diagnosis: Diabetes, Type II, controlled (250.00), Tremors (781.0), Hypercholesteremia (272.0), BIPOLAR I DISORDER, MOST RECENT EPISODE (OR CURRENT) MIXED, UNSPECIFIED DEGREE (296.60), Asthma, unspecified type, without mention of status asthmaticus (493.90), Hypothyroidism(244.9), Irritable bowel syndrome (564.1), Goiter (240.9), Allergic rhinitis (477.9), Well Woman Exam (V72.31) (Pap,Mammo,Routine Female) (Renamed from Well Woman V72.31 (p,m)), Meniere's disease, unspecified (386.00), Thrombocytopenia, unspecified (287.5), Elevated LFT (790.6) [facility] Erroneous Entry On: 03-Jun-2011 9:13 Encounter Diagnosis: Diabetes, Type II, controlled (250.00) End: 03-Jun-2011 9:15 [facility] Office Visit On: 13-Apr-2011 9:35 Encounter Reason: Follow up, Laboratory Test Results - Date: (03/16/11). There is no family history of breast cancer, cardiovascular disease, cystic fibrosis, Down's syndrome, mental retardation or myocardial infarction b End: 13-Apr-2011 9:56 efore age 53. Past medical history includes other (Bipolar 1, asthma, DM,hypothyroidism,IBS)., [ADDITIONAL REASON] Follow up Meds - The patient feels well with no complaints, has good energy leve l and is sleeping well. Patient has been compliant with instructions. Current medication use: no side effects, compliant with dosing regimen and considered effective by patient. Patient sleeps 7 hours p er night. Nutrition: balanced diet. Note for Follow up Meds: symbax, maxide Encounter Diagnosis: Diabetes, Type II, controlled (250.00), Hypothyroidism(244.9), Irritable bowel syndrome (564.1), DEPRESSIVE DISORDER, NOT ELSEWHERE CLASSIFIED (311.), BIPOLAR I DISORDER, MOST RECENT EPISODE (OR CURRENT) MIXED, UNSPECIFIED DEGREE (296.60), Asthma, unspecified type, without mention of status asthmaticus (493.90), Tremors (781.0), Hypercholesteremia (272.0) [facility] Phone Encounter On: 10-Mar-2011 8:00 Encounter Diagnosis: Elevated LFT (790.6) End: 10-Mar-2011 8:01 [facility] Office Visit On: 16-Feb-2011 7:57 Encounter Reason: Follow up for chronic medical issues - The patient feels well with minor complaints and has decreased energy level. Patient has been compliant with instructions. Current medication use: no side effects End: 16-Feb-2011 8:22 and compliant with dosing regimen. Patient sleeps 7 hours per night. Impact of disease: emotional impact-moderate. Nutrition: balanced diet and supplemental vitamins. The medical issues the patient is f ollowing up for include asthma, blood sugar issues, cardiac issues, depression (bipolar/anxiety ), high blood pressure, high cholesterol and other (tremors, IBS, goiter, obesity, vertigo ).Encounter Diagnosis: Diabetes, Type II, controlled (250.00), DEPRESSIVE DISORDER, NOT ELSEWHERE CLASSIFIED (311.), Irritable bowel syndrome (564.1), Hypothyroidism(244.9), Asthma, unspecified type, without mention of status asthmaticus (493.90), Elevated LFT (790.6), Tremors (781.0) [facility] Office Visit On: 11-Nov-2010 8:17 Encounter Reason: Follow up for chronic medical issues - The patient feels well with no complaints, has good energy level and is sleeping well. Patient has been compliant with instructions. Current medication use: no john End: 11-Nov-2010 8:51 e effects, compliant with dosing regimen and considered effective by patient. Patient sleeps 7 hours per night. Impact of disease: emotional impact-mild. Nutrition: balanced diet and supplemental vitami ns. The medical issues the patient is following up for include asthma, blood sugar issues, cardiac issues, depression (major, bipolar ), high blood pressure, high cholesterol and other (obesity, IBS, allergic rhinitis ).Encounter Diagnosis: Diabetes, Type II, controlled (250.00), BIPOLAR I DISORDER, MOST RECENT EPISODE (OR CURRENT) MIXED, UNSPECIFIED DEGREE (296.60), Meniere's disease, unspecified (386.00), Allergic rhinitis (477.9), Asthma, unspecified type, without mention of status asthmaticus (493.90), Hypothyroidism(244.9), Goiter (240.9), Other and unspecified hyperlipidemia (272.4), Myalgia and myositis, unspecified (729.1), GENERAL SYMPTOMS; INSOMNIA WITH SLEEP APNEA, UNSPECIFIED (780.51), Irritable bowel syndrome (564.1), CERTAIN ADVERSE EFFECTS NOT ELSEWHERE CLASSIFIED; ALLERGY, UNSPECIFIED (995.3), Mononeuritis of lower limb, unspecified (355.8), Mononeuritis of upper limb, unspecified (354.9), 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 Patient has been compliant with instructions. Current medication use: no side effects, compliant w End: 30-Oct-2010 10:00 ith dosing regimen and considered effective by patient. Patient sleeps 7 hours per night. Nutrition: balanced diet. Note for Follow up Meds: symbax, maxideEncounter Diagnosis: BIPOLAR I DISORDER, MOST RECENT EPISODE (OR CURRENT) MIXED, UNSPECIFIED DEGREE (296.60), Tremors (781.0), Diabetes, Type II, controlled (250.00) [facility] Office Visit On: 30-Sep-2010 13:11 Encounter Diagnosis: BIPOLAR I DISORDER, MOST RECENT EPISODE (OR CURRENT) MIXED, UNSPECIFIED DEGREE (296.60), Meniere's disease, unspecified (386.00) End: 30-Sep-2010 13:58 [facility] Office Visit On: 05-Aug-2010 9:52 Encounter Reason: Follow up, Laboratory Test Results - Date: (07/29/10). Current symptoms/reason for visit include/s Symptoms include alopecia. There is no family history of breast cancer ,cardiovascular disease ,cystic f End: 05-Aug-2010 10:52 ibrosis ,Down's syndrome ,mental retardation or myocardial infarction before age 55. Past medical history includes other (Bipolar 1, asthma, DM,hypothyroidism,IBS). Encounter Diagnosis: Hypothyroidism(244.9), ALOPECIA NOS (704.00) [facility] Office Visit On: 29-Jul-2010 13:14 Encounter Reason: Scalp problem - The onset of the scalp problem has been sudden and has been occurring in a persistent pattern for 2 months. The course has been increasing. The scalp problem is described as moderate. Encounter Diagnosis: End: 29-Jul-2010 13:41 Hypothyroidism(244.9), BIPOLAR I DISORDER, MOST RECENT EPISODE (OR CURRENT) MIXED, UNSPECIFIED DEGREE (296.60) [facility] Office Visit On: 18-Jun-2010 10:40 Encounter Reason: Follow up for chronic medical issues - The patient feels well with minor complaints ,has decreased energy level and is sleeping well. Patient has been compliant with instructions. Current medication use End: 04-Jul-2010 10:31 : no side effects and compliant with dosing regimen. Patient sleeps 8 hours per night. Impact of disease: emotional impact-moderate. Nutrition: balanced diet and supplemental vitamins. The medical issue s the patient is following up for include asthma ,blood sugar issues ,cardiac issues ,depression (bi polar) ,high cholesterol and other (obesity, IBS, chronic vertigo, allergic rhinitis). Encounter Diagnosis: Diabetes, Type II, controlled (250.00), Tremors (781.0), DEPRESSIVE DISORDER, NOT ELSEWHERE CLASSIFIED (311.), BIPOLAR I DISORDER, MOST RECENT EPISODE (OR CURRENT) MIXED, UNSPECIFIED DEGREE (296.60), Dermatophytosis of nail (110.1), Unspecified disorder of kidney and ureter (593.9), Symptomatic menopausal or female climacteric states (627.2), Unspecified hearing loss (389.9), Other and unspecified hyperlipidemia (272.4), Irritable bowel syndrome (564.1), Myalgia and myositis, unspecified (729.1), Meniere's disease, unspecified (386.00), Stress incontinence, female (625.6), Carpal tunnel syndrome (354.0), 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), GENERAL SYMPTOMS; INSOMNIA WITH SLEEP APNEA, UNSPECIFIED (780.51), Mononeuritis of lower limb, unspecified (355.8), Mononeuritis of upper limb, unspecified (354.9), Asthma, unspecified type, without mention of status asthmaticus (493.90), CERTAIN ADVERSE EFFECTS NOT ELSEWHERE CLASSIFIED; ALLERGY, UNSPECIFIED (995.3), Well Female (Younger Female) (V72.31), Allergic rhinitis (477.9), Disequilibrium of Gait(781.2), Hypothyroidism(244.9), Goiter (240.9) [facility] Office Visit On: 11-Apr-2010 11:54 Encounter Reason: Follow up acute care visit - The patient feeling better since last seen and improving. Patient has been compliant with instructions. Current medication use: no side effects and compliant with dosing reg End: 11-Apr-2010 12:24 imen. Patient sleeps 8 hours per night. Impact of disease: emotional impact-moderate. Nutrition: balanced diet and supplemental vitamins. The medical issues the patient is following up for include depression (tremors). Encounter Diagnosis: BIPOLAR I DISORDER, MOST RECENT EPISODE (OR CURRENT) MIXED, UNSPECIFIED DEGREE (296.60), DEPRESSIVE DISORDER, NOT ELSEWHERE CLASSIFIED (311.), Tremors (781.0) [facility] Office Visit On: 13-Mar-2010 10:02 Encounter Reason: Well Women Exam - The patient feels well with minor complaints and has decreased energy level. Pap smear: date of last pap: (2004). Contraceptive history: The patient is not using any method of contrace End: 13-Mar-2010 10:36 ption at this time. Patient does not exercise. The patient's libido is absent. The patient reports that she does not perform monthly breast self exam. Calcium intake includes 1 serving milk daily. Encounter Diagnosis: Well Woman Exam (V72.31) (Pap,Mammo,Routine Female) (Renamed from Well Woman V72.31 (p,m)) [facility] Office Visit On: 06-Mar-2010 8:46 Encounter Diagnosis: Tremors (781.0), BIPOLAR I DISORDER, MOST RECENT EPISODE (OR CURRENT) MIXED, UNSPECIFIED DEGREE (296.60) End: 06-Mar-2010 9:21 [facility] Office Visit On: 13-Feb-2010 7:36 Encounter Reason: Follow up for chronic medical issues - The patient feels well with minor complaints and has decreased energy level. Patient has been compliant with instructions. Current medication use: compliant with d End: 13-Feb-2010 8:05 osing regimen and considered effective by patient. Patient sleeps 7 hours per night. Impact of disease: emotional impact-moderate. Nutrition: balanced diet and supplemental vitamins. The medical issues the patient is following up for include asthma ,blood sugar issues ,cardiac issues ,depression (bipolar) ,high blood pressure ,high cholesterol ,hypothyroid ,osteoporosis/osteopenia and other (obesity, chronic vertigo, goiter, IBS, CTS). 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), Carpal tunnel syndrome (354.0), Stress incontinence, female (625.6), CERTAIN ADVERSE EFFECTS NOT ELSEWHERE CLASSIFIED; ALLERGY, UNSPECIFIED (995.3), Asthma, unspecified type, without mention of status asthmaticus (493.90), DEPRESSIVE DISORDER, NOT ELSEWHERE CLASSIFIED (311.), BIPOLAR I DISORDER, MOST RECENT EPISODE (OR CURRENT) MIXED, UNSPECIFIED DEGREE (296.60), Dermatophytosis of nail (110.1), Meniere's disease, unspecified (386.00), Mononeuritis of lower limb, unspecified (355.8), Mononeuritis of upper limb, unspecified (354.9), Myalgia and myositis, unspecified (729.1), Irritable bowel syndrome (564.1), Goiter (240.9), Hypothyroidism(244.9), Disequilibrium of Gait(781.2), Tremors (781.0), Allergic rhinitis (477.9), Well Female (Younger Female) (V72.31) [facility] Annotation/Addendum On: 02-Dec-2009 12:49 [facility] End: 02-Dec-2009 12:50 Office Visit On: 27-Nov-2009 10:25 Encounter Reason: UTI - The urinary symptoms are described as frequency. The symptoms have been occurring for 1 years and have been constant. The urine is described as clear. There has been no associated abdominal pain o End: 27-Nov-2009 10:45 r low back pain. There is a medical history of diabetes, while there is no history of current or kidney stones. The patient denies the use of oral contraceptives ,antibiotics ,hormone replacement therapy or pyridium/uristat. Encounter Diagnosis: SYMPTOM, FREQUENCY, URINARY (788.41) [facility] Office Visit On: 17-Oct-2009 7:30 Encounter Reason: Follow up acute care visit - The patient feeling better since last seen and improving. Patient has been compliant with instructions. Current medication use: no side effects ,compliant with dosing regime End: 17-Oct-2009 7:50 n and considered effective by patient. Patient sleeps 7 hours per night. Impact of disease: emotional impact-mild. Nutrition: balanced diet and supplemental vitamins. The medical issues the patient is f ollowing up for include depression and other (bipolar). Encounter Diagnosis: BIPOLAR I DISORDER, MOST RECENT EPISODE (OR CURRENT) MIXED, UNSPECIFIED DEGREE (296.60), Shortness of breath (786.05) [facility] Office Visit On: 01-Oct-2009 10:01 Encounter Reason: Follow up ER - Reason for hospitalization note: (breathing issues and insomnia ). Patient has been compliant with instructions. Current medication use: experiencing side effects (Abilify causing breathi End: 01-Oct-2009 10:58 ng issues ). The patient feels well with minor complaints ,has decreased energy level and is sleeping poorly. Patient sleeps 3 hours per night. Impact of disease: emotional impact-moderate. Nutrition: balanced diet and supplemental vitamins. Encounter Diagnosis: Shortness of breath (786.05), BIPOLAR I DISORDER, MOST RECENT EPISODE (OR CURRENT) MIXED, UNSPECIFIED DEGREE (296.60), Asthma, unspecified type, without mention of status asthmaticus (493.90) [facility] Office Visit On: 25-Sep-2009 10:21 Encounter Reason: Follow up acute care visit - The patient feeling better since last seen and improving. Patient has been compliant with instructions. Current medication use: no side effects ,compliant with dosing regime End: 25-Sep-2009 10:53 n and considered effective by patient. Patient sleeps 7 hours per night. Impact of disease: emotional impact-moderate. Nutrition: balanced diet. The medical issues the patient is following up for include depression. Encounter Diagnosis: BIPOLAR I DISORDER, MOST RECENT EPISODE (OR CURRENT) MIXED, UNSPECIFIED DEGREE (296.60) [facility] Office Visit On: 12-Sep-2009 8:24 Encounter Reason: Depression - The onset of the depression has been variable and has been occurring in a persistent pattern for 15 years. The course has been increasing. The depression is described as feeling blue ,sad , End: 12-Sep-2009 8:45 nervous and tired. The symptoms have been associated with depression in the past ,difficulty sleeping ,episodes of spontaneous crying ,excessive sweating ,feeling tired and lack of energy. Characteristi cs include distractable, trouble concentrating or staying on track ,irritable, shout and argue with others and racing thoughts, unable to slow mind down. Encounter Diagnosis: BIPOLAR I DISORDER, MOST RECENT EPISODE (OR CURRENT) MIXED, UNSPECIFIED DEGREE (296.60) [facility] Office Visit On: 30-Jul-2009 14:08 Encounter Reason: Follow up acute care visit - The patient feeling better since last seen (still has cough) and improving. Patient has been compliant with instructions. Current medication use: no side effects and complia End: 31-Jul-2009 7:16 nt with dosing regimen. Patient sleeps 8 hours per night. The medical issues the patient is following up for include All identified problems below and URI. Note for Follow up acute care visit: she is overall doing better- less cough/sob - still some wheezing with activity- she is not having fever or productive coughEncounter Diagnosis: Shortness of breath (786.05), Cough (786.2) [facility] Office Visit On: 11-Jul-2009 10:43 Encounter Diagnosis: Shortness of breath (786.05), Asthma with Acute Exacerbation (493.02), Bronchitis,Acute (466.0) End: 14-Jul-2009 20:39 [facility] Office Visit On: 09-Jul-2009 15:58 Encounter Reason: Cough - The onset of the cough has been sudden and 3 days ago. The cough is characterized as dry. The cough occurs all the time. The symptoms are not aggravated by supine posture or meals. The symptoms End: 09-Jul-2009 22:41 have been associated with runny nose and wheezing, while the symptoms have not been associated with fever ,hoarseness or sore throat. Note for Cough: she is wheezing and sob- she is using albeuterol 3 x a day- no fevvver no sputum Encounter Diagnosis: Shortness of breath (786.05), Bronchitis,Acute (466.0), Asthma with Acute Exacerbation (493.02) [facility] Phone Encounter On: 01-Apr-2009 17:11 [facility] End: 01-Apr-2009 17:12 Phone Encounter On: 05-Mar-2009 16:44 Encounter Diagnosis: Hyperlipidemia 272.4 (Renamed from Other and unspecified hyperlipidemia (272.4)) End: 05-Mar-2009 16:46 [facility] Office Visit On: 25-Jan-2009 9:02 Encounter Reason: Follow up for chronic medical issues - The patient feels well with minor complaints and has decreased energy level. Patient has been compliant with instructions. Current medication use: no side effects End: 25-Jan-2009 12:21 ,compliant with dosing regimen and considered effective by patient. Patient sleeps 7 hours per night. Impact of disease: emotional impact-moderate. Nutrition: balanced diet. The medical issues the patie nt is following up for include asthma ,blood sugar issues ,cardiac issues ,depression (bipolar, anxiety ) ,high blood pressure ,high cholesterol ,hypothyroid and other (obesity, IBS, goiter, myalgia, menieres ). 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)), Mononeuritis of upper limb, unspecified (354.9), Meniere's disease, unspecified (386.00), Mononeuritis of lower limb, unspecified (355.8), Renal insufficiency 593.9 (Renamed from Unspecified disorder of kidney and ureter (593.9)), Stress incontinence, female (625.6), Dermatophytosis of nail (110.1), Symptomatic menopausal or female climacteric states (627.2), GENERAL SYMPTOMS; INSOMNIA WITH SLEEP APNEA, UNSPECIFIED (780.51), Hyperlipidemia 272.4 (Renamed from Other and unspecified hyperlipidemia (272.4)), Hypothyroidism(244.9), Goiter (240.9), Carpal tunnel syndrome (354.0), Irritable bowel syndrome (564.1), Unspecified hearing loss (389.9), Allergies 995.3 (Renamed from CERTAIN ADVERSE EFFECTS NOT ELSEWHERE CLASSIFIED; ALLERGY, UNSPECIFIED (995.3)), BIPOLAR I DISORDER, MOST RECENT EPISODE (OR CURRENT) MIXED, UNSPECIFIED DEGREE (296.60), Well Female (Younger Female) (V72.31), Disequilibrium of Gait(781.2) [facility] Phone Encounter On: 04-Oct-2008 15:30 [facility] End: 04-Oct-2008 15:36 Office Visit On: 29-May-2008 9:28 Encounter Reason: Follow up, Laboratory Test Results - Lab results: abnormal blood chemistry and abnormal blood lipids. Date: (04-12-2008 ). Current symptoms/reason for visit include/s Symptoms include other (devendra garsia End: 29-May-2008 10:01 t sided weakness ). There is a family history of cardiovascular disease. Past medical history includes asthma ,diabetes mellitus ,elevated cholesterol ,elevated triglycerides ,emotional problems (bipolar ) ,hypothyroidism and other (obesity ). 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)), Myalgia and myositis, unspecified (729.1), Irritable bowel syndrome (564.1), GENERAL SYMPTOMS; INSOMNIA WITH SLEEP APNEA, UNSPECIFIED (780.51), Carpal tunnel syndrome (354.0), Hyperlipidemia 272.4 (Renamed from Other and unspecified hyperlipidemia (272.4)), Meniere's disease, unspecified (386.00), Mononeuritis of lower limb, unspecified (355.8), Mononeuritis of upper limb, unspecified (354.9), Renal insufficiency 593.9 (Renamed from Unspecified disorder of kidney and ureter (593.9)), Stress incontinence, female (625.6), Dermatophytosis of nail (110.1), Symptomatic menopausal or female climacteric states (627.2), Unspecified hearing loss (389.9), Allergies 995.3 (Renamed from CERTAIN ADVERSE EFFECTS NOT ELSEWHERE CLASSIFIED; ALLERGY, UNSPECIFIED (995.3)), Asthma, unspecified type, without mention of status asthmaticus (493.90), DEPRESSIVE DISORDER, NOT ELSEWHERE CLASSIFIED (311.), BIPOLAR I DISORDER, MOST RECENT EPISODE (OR CURRENT) MIXED, UNSPECIFIED DEGREE (296.60), Well Female (Younger Female) (V72.31), Goiter (240.9), Hypothyroidism(244.9) [facility] Office Visit On: 27-Dec-2007 8:33 Encounter Reason: Follow up for chronic medical issues - The patient feels well with minor complaints ,has decreased energy level and is sleeping well (c-pap ). Patient has been compliant with instructions. Current medic End: 27-Dec-2007 9:04 ation use: no side effects ,compliant with dosing regimen and considered effective by patient. Patient sleeps 7 hours per night. Impact of disease: emotional impact-mild. Nutrition: balanced diet. The m edical issues the patient is following up for include asthma ,blood sugar issues ,cardiac issues ,depression ,high cholesterol ,kidney problems (renal insuff) and other (Meniere's disease, insomnia, bip olar, menopause, IBS carpal tunnel, myalgia, goiter ). Note for Follow up for chronic medical issues: right ear tender and painful 1 weeks ago. no nasal congestion. not using albuterol usually use in summer but had wheezy cough months twice a day. 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)), Myalgia and myositis, unspecified (729.1), Irritable bowel syndrome (564.1), GENERAL SYMPTOMS; INSOMNIA WITH SLEEP APNEA, UNSPECIFIED (780.51), Carpal tunnel syndrome (354.0), Stress incontinence, female (625.6), Hyperlipidemia 272.4 (Renamed from Other and unspecified hyperlipidemia (272.4)) , Meniere's disease, unspecified (386.00), Mononeuritis of lower limb, unspecified (355.8), Mononeuritis of upper limb, unspecified (354.9), Renal insufficiency 593.9 (Renamed from Unspecified disorder of kidney and ureter (593.9)), Dermatophytosis of nail (110.1), Symptomatic menopausal or female climacteric states (627.2), Unspecified hearing loss (389.9), CERTAIN ADVERSE EFFECTS NOT ELSEWHERE CLASSIFIED; ALLERGY, UNSPECIFIED (995.3), Asthma, unspecified type, without mention of status asthmaticus (493.90), DEPRESSIVE DISORDER, NOT ELSEWHERE CLASSIFIED (311.), BIPOLAR I DISORDER, MOST RECENT EPISODE (OR CURRENT) MIXED, UNSPECIFIED DEGREE (296.60), Goiter (240.9), Hypothyroidism(244.9), Well Female (Younger Female) (V72.31) [facility] Phone Encounter On: 31-Oct-2007 13:02 Encounter Diagnosis: Unspecified Diagnosis End: 31-Oct-2007 13:05 [facility] Office Visit On: 26-Sep-2007 9:37 Encounter Reason: Follow up for chronic medical issues - The patient feels well with minor complaints ,has decreased energy level and is sleeping well (uses c- pap ). Patient has been compliant with instructions. Current End: 26-Sep-2007 10:02 medication use: no side effects ,compliant with dosing regimen and considered effective by patient. Patient sleeps 7 hours per night. Impact of disease: emotional impact-moderate. Nutrition: balanced di et. The medical issues the patient is following up for include blood sugar issues ,cardiac issues ,depression ,high blood pressure ,high cholesterol and hypothyroid. 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)), Unspecified hearing loss (389.9), Symptomatic menopausal or female climacteric states (627.2), Dermatophytosis of nail (110.1), Renal insufficiency 593.9 (Renamed from Unspecified disorder of kidney and ureter (593.9)), Hyperlipidemia 272.4 (Renamed from Other and unspecified hyperlipidemia (272.4)), Meniere's disease, unspecified (386.00), Myalgia and myositis, unspecified (729.1), Irritable bowel syndrome (564.1), GENERAL SYMPTOMS; INSOMNIA WITH SLEEP APNEA, UNSPECIFIED (780.51), Carpal tunnel syndrome (354.0), Stress incontinence, female (625.6), Mononeuritis of lower limb, unspecified (355.8), Mononeuritis of upper limb, unspecified (354.9), CERTAIN ADVERSE EFFECTS NOT ELSEWHERE CLASSIFIED; ALLERGY, UNSPECIFIED (995.3), Asthma, unspecified type, without mention of status asthmaticus (493.90), DEPRESSIVE DISORDER, NOT ELSEWHERE CLASSIFIED (311.), BIPOLAR I DISORDER, MOST RECENT EPISODE (OR CURRENT) MIXED, UNSPECIFIED DEGREE (296.60), Well Female (Younger Female) (V72.31), Goiter (240.9), Hypothyroidism(244.9) [facility] Historical Summary On: 30-May-2007 13:54 [facility] End: 30-May-2007 13:55 Historical Summary On: 23-Mar-2007 8:57 [facility] End: 23-Mar-2007 9:00 Office Visit On: 22-Mar-2007 15:11 Encounter Reason: new patient female physical - Last seen between 1-3 months ago. General health: feels well with minor complaints ,has decreased energy level and is sleeping well. The patient's appetite is normal. Nutri End: 22-Mar-2007 16:22 tion: normal/adequate. Exercises 0 days per week. Sleeps on average 8 hours per night. Normal bowel and bladder habits. Safety measures include appropriate use of safety belts and home smoke detectors. Current emotional problems include anxiety and depression. screening, colonoscopy (2000) ,screening, fecal occult blood (03/06) ,screening, mammography (2005) ,screening, Pap smear (2005) and screening, visual acuity (2006). Note for new patient female physical: two things bother her menieries and depression, been to psychiatrist past, was on cymbalta--not thing help at time, but now like better because weight lossEncounter Diagnosis: Symptomatic menopausal or female climacteric states (627.2), Dermatophytosis of nail (110.1), Renal insufficiency 593.9 (Renamed from Unspecified disorder of kidney and ureter (593.9)), Other and unspecified hyperlipidemia (272.4), Meniere's disease, unspecified (386.00), Myalgia and myositis, unspecified (729.1), Irritable bowel syndrome (564.1), GENERAL SYMPTOMS; INSOMNIA WITH SLEEP APNEA, UNSPECIFIED (780.51), glucose intolerance 271.3 (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)), Carpal tunnel syndrome (354.0), Stress incontinence, female (625.6), Mononeuritis of lower limb, unspecified (355.8), Mononeuritis of upper limb, unspecified (354.9), CERTAIN ADVERSE EFFECTS NOT ELSEWHERE CLASSIFIED; ALLERGY, UNSPECIFIED (995.3), Asthma, unspecified type, without mention of status asthmaticus (493.90), DEPRESSIVE DISORDER, NOT ELSEWHERE CLASSIFIED (311.), BIPOLAR I DISORDER, MOST RECENT EPISODE (OR CURRENT) MIXED, UNSPECIFIED DEGREE (296.60), Well Female (Younger Female) (V72.31), Goiter (240.9), Hypothyroidism(244.9) [facility] Payers [employer] [place] [employer] Lilly Toro; silvano guarantor
--- OUTSIDE RECORDS SUMMARY | 2018-11-25 14:44 | XMS RPT_ITS | Continuity of Care Document ---
:1950 Author Organization [facility] Address [address] [place] [address] Phone Care Team Providers Name Role Phone Colby JANENEEli E Unavailable Mina Baer MD Unavailable Nhung Duval Unavailable [facility], [facility] Unavailable Kasi Scott Unavailable Mariia Zhang Unavailable Dr. Junior Pena Unavailable Navdeep Fox Unavailable Elie Russo Unavailable Tanphaichitr - Bauer, Aaron Unavailable Be Middleton Unavailable MD Tyrone, Génesis Unavailable Damion Alas Unavailable Sisi Perez Unavailable Caitlin Delaney Unavailable Unavailable EMRRY Stephens Unavailable Unavailable Paul Weathers Unavailable Unavailable [...] bottles, extensive review with nurse and [facility], med list updated Status: Active Postmenopausal (Renamed from Postmenopausal status) (Z78.0, V49.81) Status: Active Pregnancies () Comments: 2 Status: Active S/P hysterectomy (Z90.710, V88.01) Comments: for endometrial hyperplasia 2015 Status: Active Shortness of breath (R06.02, 786.05) Status: Active Sleep apnea (G47.30, 780.57) Comments: needs repeat sleep study at [facility] to get back on cpap Status: [...] Caitlin Delaney Start : 29-Jul-2018 Active Ergocalciferol 04543 UNIT Oral Capsule 1 Capsule twice weekly [...] tablet daily (15 MG) Active Comments:Catrachito Pen [place] 01/14 31G X 5 MM Miscellaneous 1 [...] Refills: 0 Ordered:16-May-2013 Colby WATTERS, Eli Yanez [facility], Eli Lubin Start : 16-May-2013 End : 23-May-2013 Inactive Cheratussin AC 100-10 MG/5ML Oral Syrup 1 Teaspoon(s) qhs prn cough for 0 days Quantity: 8 {Fluid_Ounce} Refills: 0 Ordered:16-Jun-2016 Priya Gillette Start : 12-Mar-2016 End : 16-Jun-2016 Inactive Comments:eight CIPRO, 500MG (Oral Tablet) 1 Tablet bid for 7 days Quantity: 14 {Tablet} Refills: 0 Ordered:15-Jan-2014 Colby WATTERS, [facility] Start : 15-Jan-2014 End : 22-Jan-2014 [...] : 07-Nov-2012 End : 12-Feb-2014 Inactive Drisdol 29476 UNIT Oral Capsule 1 (one) Capsule once [...] : 29-Jul-2010 End : 30-Sep-2010 Inactive Nystatin 251714 UNIT/ML Mouth/Throat Suspension 4-6 Milliliter swish and [...] : 12-Dec-2015 End : 16-Jun-2016 Inactive Comments:[facility] Topamax 100 MG Oral Tablet 1 [...] days Quantity: 1 {Package} Refills: 0 Ordered:03-Jan-2018 Noami Hassan LPN Start : 16-Nov-2017 End : 03-Jan-2018 Inactive Comments:1 rambo as directed ZOSTAVAX, 13747TUU/0.65ML (Subcutaneous Solution Reconstituted) 1 For Solution once [...] Start : 04-Jan-2017 End : 04-Jan-2017 Discontinued Comments:[facility] FLEXERIL, 10MG (Oral Tablet) 1 (one) [...] : 13-Nov-2013 End : 13-Nov-2013 Discontinued Comments:ID [id number] Medrol 4 MG Oral Tablet Therapy Pack [...] days Quantity: 60 {Tablet} Refills: 0 Ordered:18-Jan-2018 EsPhyllis Start : 12-Oct-2017 End : 18-Jan-2018 Discontinued Vitamin D3 5000 UNIT Oral Tablet 1 (one) Tablet daily for 0 days Quantity: 30 {Tablet} Refills: 0 Ordered:27-Jul-2017 Naomi Hassan LPN Start : 18-Jan-2017 End : 27-Jul-2017 Discontinued Vitamin D3 39175 UNIT Oral Tablet 1 (one) Tablet Tablet once a week for 60 days Quantity: 8 {Tablet} Refills: 0 Ordered:04-Jan-2017 Slarb SAUTE CHEFFaraza Start : 24-Nov-2016 End : 04-Jan-2017 Discontinued [...] for Tdap vaccination (Renamed from Need for agxxcfevbp-clihktb-lzbtzlkws (Tdap) vaccine, adult/adolescent) (Z23, V06.1) Status: Inactive as of 12-Dec-2015 Other and unspecified hyperlipidemia (E78.5, 272.4) Status: Inactive as of 24-Jul-2013 Pharyngitis, acute (J02.9, 462) Comments: rapid strep negativeCulture Status: Inactive as of 20-Jan-2016 Pneumonitis (J18.9, 486) Status: Inactive as of 14-May-2014 Pre-operative exam (Renamed from Preop examination) (Z01.818, V72.84) Comments: Getting 4 tooth out 07/17 next week, [facility]HAs MARTHA has CPAP but not been using it for 2 years, need to see Bavis for retitration.Cr : 1.77 , repeat labs, US kidneyDM type 2: HBa1c 5.4 BMI:(obesit y increase the risk of wound infection, PE.Not malnourishedLabs:CBCCMPPT/INRtype and screen gel(99865)EK06/10/16: no acute changesHas good social support and [...] under good control Patient to use Mucinex ujnn-ctz-jsizvti which helped her. Status: Inactive as of [...] Completed Comments: 2000 Tubal ligation 1963 Completed [facility] Left endolymphatic sac Completed decompression with shunt and middle ear infusion with decadron 03/05 Date Value Details 01-Aug-2018 CTA Chest W/WO Contrast Result: Comments: See Note; NOTES: [facility] Imaging Services [address] [place] [address] CTA Chest W/WO Contrast MR#: [id number] Acct: [id number] Name: ELIZABETH TORO Rep #: [id number] : 1950 F 67 From: Hardeep Calix MD PCP: Eli Bowman NP Status: REG CLI Study: CTA Chest W/WO Contrast Date of Exam: 08/01/18 Exam# [id number] Ordering Dr: Eli Bowman STUDY: CTA CHEST/T [...] Service support , CC: Eli Bowman NP Steam Distribution Supervisor: Signed 29-Jul-2018 Chest PA and Lateral Result: Comments: See Note; NOTES: [facility] Imaging Services [address] [place] [address] Chest PA and Lateral MR#: [id number] Acct: [id number] Name: ELIZABETH TORO Rep #: [id number] : 1950 F 67 From: Cami Klein MD PCP: Eli Bowman NP Status: REG CLI Study: Chest PA and Lateral Date of Exam: 07/29/18 Exam# [id number] Ordering Dr: Eli Bowman STUDY: X-RAY CHEST [...] Service support , CC: Eli Bowman NP Steam Distribution Supervisor: Signed 21-Apr-2018 Downtime Report Result: Comments: See Note; NOTES: [facility] Medical Records Department [address] [place] [address] Downtime Report MR#: [id number] Acct: [id number] Name: ELIZABETH TORO Rep #: : 1950 67 From: Alon Klein PCP: Eli Bowman NP Status: REG RCR This patient was seen during an EMR downtime April 04, 2018 - April 11, 2018. This patient may have a combination of p aper and electronic documentation or all paper documentation. All documentation is viewable within the e-chart portion of [employer] for each patient visit. 12-Apr-2018 NCS and/or EMG Patient Result: Comments: See Note; NOTES: [facility] Pulmonary Services/Neurology [address] [place] [address] MR#: [id number] Acct: [id number] Name: ELIZABETH TORO Rep #: [id number] : 1950 67 From: Kal Hernandez MD Referring Dr: Eli Bowman NP Status: REG CLI Ordering Dr: Date: Location: [facility] Sex: F C NCS and/or EMG Patient [...] ____ Kal Hernandez MD CC: Eli Bowman SWIMMING POOL INSTALLER AND SERVICER; Kal Hernandez MD Date Dictated: 04/12/18949 Date Transcribed: 04/12/18949 Steam Distribution Supervisor: MOHIT Signed 01-Feb-2018 PT D/C Summary (1) Result: Comments: See Note; NOTES: [facility] Physical Therapy [facility] [address] [place] [address]. [address] [place], [place] [address] Fax REHABILITATION SERVICES DISCHAR SUMMARY MR#: [id number] Acct: [id number] Name: ELIZABETH TORO Rep #: [id number] : 1950 67 From: Cristopher Francis PT, ATC Referring DrJose: Mayda Dobbins DO Status: REG R Insurance: [facility] PART A B PHYSICIAN [place] [employer] [place] HP - PT D/C Summary [...] please feel free to call me at [phone]. Thank you for the referral of this patient. Sincerely, Cristopher Francis PT, <Electronically signed by Andrea Francis PT, ATC> 02/01/18 0823 CC: Eli Bowman SWIMMING POOL INSTALLER AND SERVICER; Mayda Dobbins DO [facility] Signed 30-Dec-2017 Inital Evaluation (1) - PT Result: Comments: See Note; NOTES: [facility] Physical Therapy [facility] [place] [address] Fax REHABILITATION SERVICES INITIAL EVALUATION MR#: [id number] Acct: [id number] Name: ELIZABETH TORO Rep #: [id number] : 1950 67 From: Cristopher Francis PT, ATC Referring DrJose: Mayda Dobbins DO Status: REG RCR Insurance: [employer] PART A B PHYSICIAN [employer] [...] to be FAXED BACK to us at [phone] for Medicare purposes. Please let me know [...] Operative Report Result: Comments: See Note; NOTES: [facility] Medical Records Department [address] [place] [address] Operative Report 10/08/172017 MR#: [id number] Acct: [id number] Name: XAVIER TORO Rep #: [id number] : 1950 67 From: Oscar Winston MD PCP: Eli Bowman NP Status: REG SDC Y Location: [place] [address] Problem List (1) Intrinsic (urethral) sphincter deficiency [...] Discharge Instruction Result: Comments: See Note; NOTES: [facility] Medical Records Department [address] [place] [address] Instructions for Home/Discharge Instructions 10/08/171950 MR#: [id number] Acct: [id number] Name: ELIZABETH TORO Rep #: [id number] : 1950 67 From: Oscar Winston MD PCP: Eli Bowman NP Status: REG [facility] Discharge Diet: Light diet - advance as [...] and Lateral Result: Comments: See Note; NOTES: [facility] Imaging Services [address] [place] [address] Chest PA and Lateral MR#: [id number] Acct: [id number] Name: JAYYELIZABETH A Rep #: [id number] : 1950 F 67 From: Yury Arthur MD PCP: Eli Bowman Status: REG CLI Study: Chest PA and Lateral Date of Exam: 08/30/17 Exam# [id number] Ordering Dr: Mayda Dobbins DO STUDY: X-RAY [...] , CC: Eli Bowman; Mayda Dobbins DO Steam Distribution Supervisor: Signed 20-Jul-2017 L/S Spine Min 4 Views Result: Comments: See Note; NOTES: [facility] Imaging Services [address] [place] [address] L/S Spine Min 4 Views MR#: [id number] Acct: [id number] Name: ELIZABETH TORO Rep #: [id number] : 1950 F 66 From: Dionte Lujan DO PCP: Eli Bowman Status: REG CLI Study: L/S Spine Min 4 Views Date of Exam: 07/20/17 Exam# [id number] Ordering Dr: Edita Cabral MD STUDY: X-RAY [...] Fax CC: Eli Bowman; Edita Cabral MD Steam Distribution Supervisor: Signed 20-Jul-2017 Shoulder min 2 Views Result: Comments: See Note; NOTES: [facility] Imaging Services [address] [place] [address] Shoulder min 2 Views MR#: [id number] Acct: [id number] Name: ELIZABETH TORO Rep #: [id number] : 1950 F 66 From: Dionte Lujan DO PCP: Eli Bowman Status: REG CLI Study: Shoulder min 2 Views Date of Exam: 07/20/17 Exam# [id number] Ordering Dr: Edita Cabral MD STUDY: X-RAY - RIGHT [facility] REASON FOR EXAM: Female, 66 years [...] Tel , Service support , CC: Eli Bomwan; Edita Cabral MD Steam Distribution Supervisor: Signed 11-May-2017 PT D/C Summary (1) Result: Comments: See Note; NOTES: [facility] Physical Therapy [facility] [address] [place], [place] [address] Fax REHABILITATION SERVICES DISCHAR GE SUMMARY MR#: [id number] Acct: [id number] Name: ELIZABETH TORO Rep #: [id number] : 1950 66 From: Naomi COMER Referring [...] please feel free to call me at [phone]. Thank you for the referral of this patient. Sincerely, Naomi Osorio <Electronically signed by Naomi Osorio MPT> 09/17 0919 CC: Nunu Root; Eli Bowman Signed 14-Apr-2017 Inital Evaluation (1) - PT Result: Comments: See Note; NOTES: [facility] Physical Therapy [facility] [address] [place] [address] Fax REHABILITATION SERVICES INITIAL EVALUATION MR#: [id number] Acct: [id number] Name: ELIZABETH TORO Rep #: [id number] : 1950 66 From: Naomi COMER Referring [...] to be FAXED BACK to us at [phone] for Medicare purposes. Please let me know if there are questions or concerns regarding this plan of care. Physician Signature: Date: <Electronically signed by Naomi Osorio MPT> 04/14/17 1906 CC: Nunu Root; Eli Bowman Signed For Medicare only, by sign ing this I certify the plan of care. Physicians Signature Date 08-Apr-2017 Knee 4 or More Views Result: Comments: See Note; NOTES: [facility] Imaging Services [address] [place] [address] Verdana 4d Knee 4 or More Views MR#: [id number] Acct: [id number] Name: ELIZABETH TORO p #: [id number] : 1950 F 66 From: Chalino Mancia MD PCP: Eli Bowman Status: REG CLI Study: Knee 4 or More Views Date of Exam: 04/08/17 Exam# [id number] Ordering Dr: Mayda Dobbins DO STUDY: X-RAY [...] right knee. No fracture Electronically Signed: Chalino Mancia, 20 17/04/09 at 6:58 EDT Tel , Service support , CC: Eli Bowman; Mayda Dobbins DO Steam Distribution Supervisor: Signed 08-Apr-2017 Knee 4 or More Views Result: Comments: See Note; NOTES: [facility] Imaging Services [address] [place] [address] Verdana 4d Knee 4 or More Views MR#: [id number] Acct: [id number] Name: JAYYELIZABETH A Re p #: [id number] : 1950 F 66 From: Chalino Mancia MD PCP: Eli Bowman Status: REG CLI Study: Knee 4 or More Views Date of Exam: 04/08/17 Exam# [id number] Ordering Dr: Mayda Dobbins DO STUDY: X-RAY [...] , CC: Eli Bowman; Mayda Dobbins DO Steam Distribution Supervisor: Signed 15-Mar-2017 Sleep Study Report Result: Comments: See Note; NOTES: [facility] SLEEP DISORDER CENTER [address] [place] [address] Polysomnography with NCPAP MR#: [id number] Acct: [id number] Name: ELIZABETH TORO p #: [id number] : 1950 66 From: Kal Hernandez MD [...] version). Please note that a reference to [facility] AHI in this report is consistent with the current Hypopnea definition according to Medicare Criteria and an AASM AHI reference is consistent with the current Hypopnea defini tion according to the AASM criteria and is recognized by [facility] as the RDI. PROCEDURE: The study was attended continuously by a automotive tire technician. Monitored parameters included left and right [...] body mass index of 30.9 and an Saint Robert Sleepiness Scale score of 6. There is [...] requested. Kal Hernandez MD T: NTS JOB: [id number] CC: Kal Hernandez MD 115 1151 03/15/17 1451 <Electronically signed by Kal Hernandez MD> Date Kal Hernandez MD Co-signature (if applicable) Date Signed 05-Jan-2017 Esophagus Only Result: Comments: See Note; NOTES: [facility] Imaging Services [address] [place] [address] Verdadamian 4d Esophagus Only MR#: [id number] Acct: [id number] Name: ELIZABETH TORO Rep #: [id number] : 1950 F 66 From: Gabriela Ragland MD PCP: Eli Bowman Status: REG CLI Study: Esophagus Only Date of Exam: 01/05/17 Exam# [id number] Ordering Dr: Sofia Bragg MD STUDY: AIR-CONTRAST [...] at 8:43 EST Tel , Service support , CC: Eli Bowman; Sofia Bragg MD Steam Distribution Supervisor: Signed 29-Dec-2016 Emergency Department Summary Result: Comments: See Note; NOTES: [facility] Medical Records Department [address] [place] [address] Emergency Department Summary MR#: [id number] Acct: [id number] Name: XAVIER TORO Rep #: [id number] : 1950 66 From: Sofia Bragg MD PCP: Eli Bowman Status: DEP ER DATE OF SERVICE: 12/29/2016 CHIEF COMPLAINT: Sore throat. HISTORY OF PRESENT ILLNESS: This is a 66-year- old woman that states she was at [facility], choked on a piece of potato 5 [...] the case with Dr. Pena who is guidance consultant for GI and he suggested ordering an [...] C: Eli Pena MD T: NTS JOB: [id number] 12/29/16 <Electronically signed by Sofia Bragg MD> Date Sofia Bragg MD Cosigner Signature (If Indicated): Date CC: Eli Bowman; Junior Pena Date Dictated: 12/29/161828 Date Transcribed: 12/29/161828 Steam Distribution Supervisor: Signed 29-Dec-2016 Discharge Instruction Result: Comments: See Note; NOTES: [facility] Medical Records Department [address] [place] [address] Discharge Instruction 12/29/161829 MR#: [id number] Acct: [id number] Name: ELIZABETH TORO Rep #: [id number] : 1950 66 From: Sofia Bragg MD [...] your Primary Care Provider. Call [facility] ([phone] ) or report to the closest Emergency Room. Call 911 if necessary. 12/29/161832 <Electronically signed by Sofia Bragg MD> Date Sofia elliott MD Cosigner Signature (If Indicated): Date CC: Eli Bowman 07-Aug-2016 Sleep Study Report Result: Comments: See Note; NOTES: [facility] SLEEP DISORDER CENTER [address] [place] [address] Split Night Sleep Study MR#: [id number] Acct: [id number] Name: ELIZABETH TORO Rep #: [id number] : 1950 65 From: Kal Hernandez MD [...] version). Please note that a reference to [facility] AHI in this report is consistent with the current Hypopnea definition according to Medicare Criteria and an [facility] AHI reference is consistent with the current Hypopnea defin ition according to the AASM criteria and is recognized by [facility] as the RDI. PROCEDURE: The study was attended continuously by a automotive tire technician. Monitored parameters included left and right EOG, frontal , central, and occipital EEG, mental and submental EMG, left and right anterior tibialis EMG, signal ECG waveform, snore, continuous airflow with PAP device flow signal, chest and abdominal plethysmogra phy efforts, oxygen saturation with heart rate, and body positioning with video monitoring. REFERRING PHYSICIAN: Dr. Donnie Gonzales SLEEP HISTORY: This is a split night sleep study performed on this 65-y ear-old female with a body mass index of 29.3 and Saint Robert Sleepiness Scale score of 2. There is [...] humidity. Kal Hernandez MD T: NTS JOB: [id number] CC : Kal Hernandez MD 1144 [id number] 08/07/16 0959 <Electronically signed by Kal Hernandez MD> Date Kal Hernandez MD Co-signature (if applicable) Date Signed -Aug-2016 Kidney and Bladder Result: Comments: See Note; NOTES: [facility] Imaging Services [address] [place] [address] Verdana 4d Kidney and Bladder MR#: [id number] Acct: [id number] Name: ELIZABETH TORO Rep #: [id number] : 1950 F 65 From: Anibal Lan MD PCP: Donnie Gonzales Status: [facility] CL Study: Kidney and Bladder Date of Exam: 08/04/16 Exam# [id number] Ordering Dr: Beto Henry MD UDY: RENAL [...] Anibal Lan MD at 11:16 EDT Tel [phone], Service support [phone], CC: Soumya Henry M.D.; Donnie Gonzales Steam Distribution Supervisor: Signed 23-Jun-2016 Operative Report Result: Comments: See Note; NOTES: [facility] Medical Records Department [address] [place] [address] Operative Report MR#: [id number] Acct: [id number] Name: ELIZABETH TORO Rep #: [id number] : 1950 65 From: Gm Brush MD PCP: Donnie Gonzales Status: REG [facility] DATE OF SERVICE: 06/22/2016 DATE OF PROCEDURE: June 22, 2016 SURGEON: Gm Brush M.D. MEDIA OPERATOR: Lia jacinto. ANESTHESIA: Gem Shelby and Frank [...] ovaries. Gm Brush MD T: NTS JOB: [id number] 06/23/16 0725 <Electronically signed by Gm Brush MD> Date __ Gm Brush MD Cosigner Signature (If Indicated): Date CC: Gm Brush MD; Donnie Nolasco Dicta nahed: 06/22/161102 Date Transcribed: 06/22/161102 Steam Distribution Supervisor: Signed 22-Jun-2016 Discharge Instruction Result: Comments: See Note; NOTES: [facility] Medical Records Department [address] [place] [address] Instructions for Home/Discharge Instructions 06/22/16 0904 MR#: [id number] Acct: [id number] Name: ELIZABETH TORO Rep #: [id number] : 1950 65 From: Gm Brush MD PCP: Donnie Gonzales Status: REG [facility] Discharge Diet: No Restrictions Discharge Activity: Return [...] CC: Donnie Gonzales 10-Jun-2016 ELECTROCARDIOGRAM, COMPLETE (ECG) (82728) Result: [MEASUREMENTS ANALYSIS] Date of Test: 06/10/2016 09:39:53; Heart Rate: 58; CA Interval: 208; QRS: 86; QT Interval: 480; Corrected QT Interval (QTc): 477; P Wave [place]: 45; QRS Wave [place]: 11; T Wave [place]: 23; Blood Pressure: 112/70 [ECG DIAGNOSTIC STATEMENTS] Date of Test: 06/10/2016 09:39:53; Summary: Sinus Bradycardia - Negative T-waves -May be normal - possible Anteroseptal ischemia. BORDERLINE 13-Apr-2016 Operative Report Result: Comments: See Note; NOTES: [facility] Medical Records Department [address] [place] [address] Operative Report MR#: [id number] Acct: [id number] Name: XAVIER TORO Rep #: [id number] : 1950 65 From: Gm Brush MD PCP: Edita Cabral MD Status: [facility] DATE OF SERVICE: 04/13/2016 DATE OF PROCEDURE: [...] curettings. Gm Brush MD T: NTS JOB: [id number] 04/13/16 1838 <Electronically signed by Gm Brush MD> Date Gm Brush MD Cosigner Signature (If Indicated): Date CC: Edita Young; mG Brush MD Date Dictated: 04/13/161030 Date Transcribed: 04/13/161030 Steam Distribution Supervisor: Signed 13-Apr-2016 Discharge Instruction Result: Comments: See Note; NOTES: [facility] Medical Records Department [address] [place] [address] Instructions for Home/Discharge Instructions 04/13/16 1003 MR#: [id number] Acct: [id number] Name: ELIZABETH TORO Rep #: [id number] : 1950 65 From: Gm Brush MD PCP: Edita Cabral MD Status: REG [facility] Discharge Diet: No Restrictions Discharge Activity: R [...] mg PO DAILY 04/10/16 Hydrocodone Bitart/Apap 5-325 [[place] 5MG-325MG] 1 tablet PO Q4H PRN PRN #10 tablet 04/13/16 The followi ng prescriptions were given: Hydrocodone Bitart/Apap 5-325 [[place] 5MG-325MG] 1 tablet PO Q4H PRN PRN #10 tablet PRN Reason: Mod-Severe Pain () Please Follow Up With: Gm Brush When: 2-3 jason bowers 04/13/16 1004 <Electronically signed by Gm Brush MD> Date Gm Brush MD CC: Edita Cabral MD 22-Mar-2016 Emergency Department Summary Result: Comments: See Note; NOTES: [facility] Medical Records Department [address] [place] [address] Emergency Department Summary MR#: [id number] Acct: [id number] Name: ELIZABETH TORO Rep #: [id number] : 1950 65 From: Nando Fuller MD [...] C: Edita Brush MD T: NTS JOB: [id number] 03/22/16 0247 <Electronically signed by Nando Fuller MD&a mp;#62; Date Nando Fuller MD Cosigner Signature (If Indicated): Date CC: Edita Cabral MD; Otilia Brush MD Date Dictated: 03/21/1650 Date Transcribed: 03/21/1650 Steam Distribution Supervisor: Signed 21-Mar-2016 Discharge Instruction Result: Comments: See Note; NOTES: [facility] Medical Records Department [facility] [place] [address] Discharge Instruction 03/21/16 0048 MR#: [id number] Acct: [id number] Name: ELIZABETH TORO Rep #: [id number] : 1950 65 From: Nando Fuller MD [...] ems, contact your doctor. Call [facility] ([phone]) or report to the closest Emergency Room. Call 911 if necessary. 03/21/16 0049 <Electronically signed by Nando Fuller MD&#6 2; Date Nando Fuller MD Cosigner Signature (If Indicated): Date CC: Edita Cabral MD 20-Mar-2016 Transvaginal Non- Result: Comments: See Note; NOTES: [facility] Imaging Services [address] [place] [address] Verdana 4d Transvaginal Non- MR#: [id number] Acct: [id number] Name: ELIZABETH DIAZ Rep #: [id number] : 1950 F 65 From: Jose Fu PCP: Edita Cabral MD Status: REG ER Study: Transvaginal Non- Date of Exam: 03/20/16 Exam# [id number] Ordering Dr: Oz Fuller MD STUDY: ULTRASOUND [...] DO at 0:42 EDT , Service support [phone], Fax CC: Edita Cabral MD; Nando Fuller MD Steam Distribution Supervisor: Signed 25-Feb-2016 Esophagus Only Result: Comments: See Note; NOTES: [facility] Imaging Services [address] [place] [address] Verdana 4d Esophagus Only MR#: [id number] Acct: [id number] Name: XAVIER TORO Rep #: [id number] : 1950 F 65 From: Anibal Lan MD PCP: Edita Cabral MD Status: REG CLI Study: Esophagus Only Date of Exam: 02/25/16 Exam# [id number] Ordering Dr: Donnie Gonzales STUDY: X-RAY - [...] Anibal Lan MD at 10:35 EDT Tel [phone], Service support [phone], Fax RAD/Esophagus Only IMPRESSION: Normal plain film x-ray examination (barium swallow) of the esophagus. Electronically Signed: Anibal Lan MD at 10: 35 EDT Tel [phone], Service support [phone], CC: Edita Cabral MD; Donnie Gonzales Steam Distribution Supervisor: Signed 25-Feb-2016 Esophagus Only Result: Comments: See Note; NOTES: [facility] Imaging Services [address] [place] [address] Verdana 4d Esophagus Only MR#: [id number] Acct: [id number] Name: XAVIER TORO Rep #: [id number] : 1950 F 65 From: Anibal Lan MD PCP: Edita Cabral MD Status: REG CLI Study: Esophagus Only Date of Exam: 02/25/16 Exam# [id number] Ordering Dr: Donnie Gonzales ADDENDUM by Anibal Lan MD on 03/31/16 at 0747 ADDENDUM This is an addendum report for PQRS purposes. 19 images were obtained. Electronically Signed: Anibal Lan MD at 7:47 EDT Tel [phone], Service support [phone], 03/31/16 0747 Date cc: Edita Cabral MD; [...] Anibal Lan MD at 10:35 EDT Tel [phone], Service support [phone], RAD/Esophagus Only IMPRESSION: Normal plain film x-ray examination (barium swallow) of the esophagus. Electronically Signed: Anibal Lan MD at 10:35 EDT Tel [phone], Service support [phone], CC: Edita Cabral MD; Donnie Gonzales Steam Distribution Supervisor: Signed 10-Dec-2015 12 Lead Electrocardiogram Result: Comments: See Note; NOTES: [facility] Cardiovascular Services [address] [place] [address] 12 Lead EKG 12/08/15 1551 MR#: [id number] Acct: [id number] Name: ELIZABETH DASILVA Rep #: [id number] : 1950 65 From: Francisco Muller MD [...] ECG Confirmed by FRANCISCO MULLER MD ([id number]), newspaper editor managing ZUNILDA KLEIN ([id number]) on 12/10/2015 9:33:10 AM Referred By: ROMEL Confirmed By:FRANCISCO MULLER MD 12/10/15 0933 Date ___ Francisco Muller MD CC: Edita Cabral MD Date Dictated: 12/08/151550 Date Transcribed: 12/08/151550 Steam Distribution Supervisor: Signed 10-Dec-2015 Emergency Department Summary Result: Comments: See Note; NOTES: [facility] Medical Records Department [address] [place] [address] Emergency Department Summary MR#: [id number] Acct: [id number] Name: ELIZABETH TORO Rep #: [id number] : 1950 65 From: Sisi Severino MD [...] C: Edita Cabral MD T: NTS JOB: [id number] 12/10/15 0232 <Electronically deepti d by Sisi Severino MD> Date Sisi Severino MD Cosigner Signature (If Indicated): Date Dominguez C: Edita Cabral MD Date Dictated: 12/08/151705 Date Transcribed: 12/08/151705 Steam Distribution Supervisor: Signed 08-Dec-2015 Discharge Instruction Result: Comments: See Note; NOTES: [facility] Medical Records Department [address] [place] [address] Discharge Instruction 12/08/15 1659 MR#: [id number] Acct: [id number] Name: ELIZABETH TORO Rep #: [id number] : 1950 65 From: Sisi Severino MD [...] problems, contact your doctor. Call [facility] ([phone]) or report to the closest Emergency Room. Call 911 if necessary. 12/08/15 1701 <Electronically signed by Sisi young MD> Date Sisi Severino MD Cosigner Signature (If Indicated): Date CC: Edita Cabral MD 08-Dec-2015 Chest PA and Lateral Result: Comments: See Note; NOTES: [facility] Imaging Services [address] [place] [address] Verdana 4d Chest PA and Lateral MR#: [id number] Acct: [id number] Name: ELIZABETH TORO Rep #: [id number] : 1950 F 65 From: Malaika Diana MD PCP: Edita Cabral MD Status: REG ER Study: Chest PA and Lateral Date of Exam: 12/08/15 Exam# [id number] Ordering Dr: Sisi Severino MD STUDY: X-RAY [...] MD at 16:41 EST , Service support [phone], RAD/Chest PA and Lateral IMPRESSION: No acute disease is demonstrated. Electronic ally Signed: Malaika Diana MD at 16:41 EST , Service support [phone], CC: Edita Cabral MD; Sisi Severino MD Steam Distribution Supervisor: Signed 16-Sep-2015 EKG (99857) Result: [MEASUREMENTS ANALYSIS] Date of Test: 09/16/2015 09:46:37; Heart Rate: 74; CA Interval: 192; QRS: 88; QT Interval: 406; Corrected QT Interval (QTc): 430; P Wave [place]: 28; QRS Wave [place]: -3; T Wave [place]: -1; Blood Pressure: 104/60 [ECG DIAGNOSTIC STATEMENTS] Date of Test: 09/16/2015 09:46:37; Summary: Sinus Rhythm Low voltage in precordial leads. - Nonspecific T-abnormality. ABNORMAL 11-Feb-2015 Kidney and Bladder Result: Comments: See Note; NOTES: [facility] Imaging Services [address] [place] [address] Ultrasound Report MR#: [id number] Acct: [id number] Name: ELIZABETH TORO Rep #: [id number] : 1950 F 64 From: Mina Cade MD PCP: Edita Cabral MD Status: REG CLI Study: Kidney and Bladder Date of Exam: 02/11/15 Exam# [id number] Ordering Dr: Edita Cabral MD STUDY: RE [...] MD at 23:11 EDT , Service support [phone], CC: Edita Cabral MD Steam Distribution Supervisor: Signed 24-Jul-2014 PT Discharge Summary Result: Comments: See Note; NOTES: [facility] Physical Therapy [facility] [address] [place] [address]. [address] [place], [place] [address] Fax REHABILITATION SERVICES DISCHARGE SUMMARY MR#: [id number] Acct: [id number] Name: ELIZABETH TORO Rep #: [id number] : 1950 63 From: Naomi Osorio Referring [...] clinic. Naomi Osorio, PT T: NTS JOB: [id number] <Electronically signed by Faraz Osorio > 07/24/14 1350 CC: Signed 15-Jun-2014 PT Discharge Summary Result: Comments: See Note; NOTES: [facility] [address] [place] [address]. [address] [place] [address] Fax REHABILITATION SERVICES DISCHARGE SUMMARY MR#: [id number] Acct: [id number] Name: ELIZABETH TORO Rep #: [id number] : 1950 63 From: Naomi Osorio Referring [...] our clinic. Sincerely, Naomi Osorio, PT T: [facility] JOB: [id number] <Electronically signed by Naomi Osorio & amp;#62; 06/15/14 1410 CC: Signed 25-May-2014 Inital Evaluation - PT Result: Comments: See Note; NOTES: [facility] [address] [place] [address]. [address] [place] [address] Fax REHABILITATION SERVICES INITIAL EVALUATION MR#: [id number] Acct: [id number] Name: ELIZABETH TORO Rep #: [id number] : 1950 63 From: Naomi Osorio Referring Dr.: Edita Cabral MD Status: REG RCR Insurance: [facility] B Eval Date: PHYSICIAN MUTUAL [...] anterolateral shoulder. She is right-handed. 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 Naomi Osorio, PT T: MICHAEL JOB: [id number] <Electronically signed by Naomi Osorio > 4 1241 CC: Signed For Medicare only, by signing this I certify the plan of care. Physicians Signature Date 23-May-2014 Nuclear Stress Test - Chemical Result: Comments: See Note; NOTES: [facility] Imaging Services [address] [place] [address] Nuclear Medicine Report MR#: [id number] Acct: [id number] Name: ELIZABETH TORO Rep #: [id number] : 1950 F 63 From: Tano Nielsen MD PCP: Edita Cabral MD Status: REG CLI Study: Nuclear Stress Test - Chemical Date of Exam: 05/23/14 Exam# [id number] Ordering Dr: Álvaro Cabral MD EXERCISE TOLERANCE [...] LVEF of 61%. CC: Edita Cabral MD Steam Distribution Supervisor: SHEKHAR Signed 14-May-2014 Shoulder min 2 Views Result: Comments: See Note; NOTES: [facility] Imaging Services [address] [place] [address] Radiology Report MR#: [id number] Acct: [id number] Name: ELIZABETH TORO Rep #: [id number] : 1950 F 63 From: Hardeep Dumont MD PCP: Erna Kingston DO Status: REG CLI Study: Shoulder min 2 Views Date of Exam: 05/14/14 Exam# [id number] Ordering Dr: Edita Cabral MD STUDY: X-RAY [...] Silvio Dumont MD at 12:18 EDT , [employer]eng[employer]777i ce support [phone], CC: Edita Cabral MD; Erna Kingston DO Steam Distribution Supervisor: Signed 30-Apr-2014 CTA Chest W/WO Contrast Result: Comments: See Note; NOTES: [facility] Imaging Services [address] [place] [address] CAT Scan Report MR#: [id number] Acct: [id number] Name: ELIZABETH TORO Rep #: [id number] : 1950 F 63 From: Hardeep Calix MD PCP: Erna Kingston DO Status: REG CLI Study: CTA Chest W/WO Contrast Date of Exam: 04/30/14 Exam# [id number] Ordering Dr: Erna Kingston DO STUDY: CTA [...] at 19 :01 EDT , Service support [phone], CC: Erna Kingston DO Steam Distribution Supervisor: Signed Family History Unknown Family Member Name [...] Description Value Details :57 CREATININE FINGERSTICK Comments: [facility] [address] [place] [address] EGFR WB 55.0000 mL/min (Abnormal) CREATININE WB 1.1 mg/dL (Abnormal) Range: 0.55-1.02 93-Vug-964410:19 D-Dimer (41972) Comments: PATIENT NOT FASTINGPERFORMED BY: [employer] Rtxlyo2621 [facility] [id number] D-Dimer 0.57 {mg/L_FEU} (Abnormal) Range: 0.00-0.49 Comments: According to the assay weatherization coordinator's published package insert, anormal (<0.50 mg/L FEU) D-dimer result in conjunction with a non-highclinical probability assessment, excludes deep vein thrombosis (D VT)and pulmonary embolism (PE) with high sensitivity. .D-dimer values increase with age and this can make VTE exclusion ofan older pop ulation difficult. To address this, the [employer], based on best available evidence [...] and an80 year old 0.80 mg/L FEU. 14-Ubm-370016:19 Troponin I (08108) Comments: PATIENT NOT FASTINGPERFORMED BY: [employer] [facility]Evgijn2257 [facility] [id number] Troponin I <0.01 ng/mL (Normal) Range: 0.00-0.04 71-Dhe-357639:19 CPK MB FRACTION (65323) Comments: PATIENT NOT FASTINGPERFORMED BY: [employer] [facility] Group[facility])Afesky8506 [facility] [id number] Creatine Kinase (CK), MB 2.5 ng/mL (Normal) Range: 0.0-5.3 42-Stl-994780:19 CREATINE KINASE TOTAL (21038) Comments: PATIENT NOT FASTINGPERFORMED BY: [facility] Fkgvji[address] [place] [place] [id number] Creatine Kinase,Total 103 U/L (Normal) Range: 24-173 65-Yjy-10434:16 CBC-Complete Blood Cnt No Diff Comments: [facility] [address] [place], [address] MPV 10.5 fL (Normal) Range: 6.2-12.0 [...] Range: 4.4-11.0 :16 Microalb:Creat Ratio,Random UR Comments: [facility] [address] [place], [address] MALB:CREAT Test not performed {mg/g_CRE} (Normal) MICROALBUMIN,UR < 5.0 mg/L (Normal) UR CREAT < 13.00 mg/dL (Normal) :16 PTHIN 51.5 pg/mL (Normal) Comments: [facility] [address] [place], [address] Range: 18.4-80.1 64-Vca-10342:16 Renal Profile Comments: [facility] [address] [place], [address] CO2 28.0 mmol/L (Normal) Range: 21.0-32.0 [...] Comments: Please note revised GLUCOSE reference range xkbegioap76/02/2018. 55-Rmg-15132:16 Vitamin D,25 Hydroxy Comments: [facility] [address] [place], [place], [address] Vitamin D 25-OH 69.4 ng/mL (Normal) Range: 29.95-100.01 Comments: Vitamin D 25(OH) Status Range Deficiency <20 ng/mL (50nmol/L) Insuffciency 20 - 30 ng/mL (50 - 75 nmol/L) Sufficiency 30 - 100 ng/mL (75 - 250 nmol/L) Toxicity >100 ng/mL (>250 nmol/L) :04 HgA1C , Office (82479) HgA1C , Office 5.5 % (Normal) Range: 4.6 - 7.1 :23 CALCIFEDIOL (23915) Comments: PATIENT WAS FASTINGPERFORMED BY: [facility])Qcwsmd8399 [facility] [id number] Vitamin D, 25-Hydroxy 43.2 ng/mL (Normal) Range: 30.0-100.0 Comments: Vitamin D deficiency has been defined by the [place] of[place]icine and an Endocrine Society practice guideline as alevel of serum 25-OH vitamin D less than 20 ng/mL (1,2).The Endocrine Society went on to further define vitamin Dinsufficiency as a level between 21 and 29 ng/mL (2).1. IOM ([place] of [employer]). 2010. Dietary reference intakes for calcium and D. [place]: The National Academies Press.2. Azael MF, Leslee NC, Hillary PHILLIPS, et al. Evaluation, treatment, and prevention of vitamin D deficiency: an Endocrine Society clinical practice guideline. JCEM. 2010; 96(7):1911-30. 16-Mkx-08507:23 CBC, Platelets & Auto Diff Comments: PATIENT WAS FASTINGPERFORMED BY: [facility])Ldahmq5032 [facility] [id number] (99467) Immature Grans (Abs) 0.0 {x10E3/uL} (Normal) Range: [...] Panel, Comprehensive Comments: PATIENT WAS FASTINGPERFORMED BY: [employer] Mgfvhu8372 [facility] [id number] (36291) ALT (SGPT) 15 [iU]/L (Normal) Range: 0-32 [...] CREATININE RATIO Comments: PATIENT WAS FASTINGPERFORMED BY: [employer] [facility] GroupHoly Cross HospitalIvyecz6278 [facility] [id number] (34104) AND (24194) Alb/Creat Ratio <5.6 {mg/g_creat} (Normal) Range: 0.0-30.0 Albumin, Urine <3.0 ug/mL (Normal) Creatinine, Urine 53.5 mg/dL (Normal) 17-Kpf-108913:31 Metabolic Panel, Basic Comments: PATIENT NOT FASTINGPERFORMED BY: [employer] [place] [id number] (42338) Calcium, Serum 9.9 mg/dL (Normal) Range: 8.7-10.3 [...] (Normal) Range: 65-99 02-Nov-20178:55 HgA1C , Office (18940) Comments: 5.5 HgA1C , Office 5.5 % (Normal) Range: 4.6 - 7.1 2-Dcz-893932:22 VITAMIN B12 AND FOLATES Comments: today; PATIENT NOT FASTINGPERFORMED BY: [employer] [place] [id number] (86741) Folate (Folic Acid), Serum >20.0 ng/mL (Normal) Comments: A serum folate concentration of less than 3.1 ng/mL isconsidered to represent clinical deficiency. Vitamin B12 655 pg/mL (Normal) Range: 232-1245 Comments: Please note reference interval change 07-Yvk-309371:58 CALCIFEDIOL (06627) Comments: PATIENT NOT FASTINGPERFORMED BY: [employer] [employer] [place] [id number] Vitamin D, 25-Hydroxy 25.2 ng/mL (Abnormal) Range: 30.0-100.0 Comments: Vitamin D deficiency has been defined by the [place] of[place] and an Endocrine Society practice guideline as alevel of serum 25-OH vitamin D less than 20 ng/mL (1,2).The Endocrine Society went on to further define vitamin Dinsufficiency as a level between 21 and 29 ng/mL (2).1. IOM ([place] of [employer]). 2010. Dietary reference intakes for calcium and D. [place]: The National Academies Press.2. Azael MF, Leslee LEMON, Hillary PHILLIPS, et al. Evaluation, treatment, and prevention of vitamin D deficiency: an Endocrine Society clinical practice guideline. JCEM. 2010; 96(7):1911-30. :58 TSH (THYROID STIMULATING Comments: PATIENT NOT FASTINGPERFORMED BY: [employer] [facility] [address]ho64[address] [place] [id number] HORMONE) (60683) TSH 2.410 {uIU/mL} (Normal) Range: 0.450-4.500 :58 CBC WITH MANUAL DIFF (36191) Comments: PATIENT NOT FASTINGPERFORMED BY: [facility] Dqnjjx9200 [facility] FashionAdventhealth Hendersonvillein [place] [id number] Immature Grans (Abs) 0.0 {x10E3/uL} (Normal) Range: [...] 3.77-5.28 WBC 7.7 {x10E3/uL} (Normal) Range: 3.4-10.8 30-Sxi-920409:58 Metabolic Panel, Comprehensive Comments: PATIENT NOT FASTINGPERFORMED BY: EMIL [facility] Efpgmo8404 [facility] [id number] (97252) ALT (SGPT) 13 [iU]/L (Normal) Range: 0-32 [...] Glucose, Serum 90 mg/dL (Normal) Range: 65-99 6-Gvp-644888:07 Bedside Glucose Comments: [facility] of [address] [place] [address] BEDSIDE GLU 100 mg/dL (Normal) Range: 70-110 Comments: MANAGEMENT OF PATIENT CARE PER NURSING PROTOCOL 53-Fpr-813342:14 D-Dimer Quantitative (DVT/PE) Comments: Order Date: 08/30/17Order Info: 25452-1 - [facility]-DIMERWPremier [facility] [address]ws[address] [place], [place], [address] D-DIMER QUANT 0.35 {FEU/ug/m} (Normal) Range: 0.27-0.49 Comments: NORMAL D-Dimer level (<0.50) indicates no DVT or PE. 00-Eyg-154833:44 Blood Glucose , Office (76536) Blood Glucose , 129 (Normal) Office :2 Request Problem Final report Comments: PATIENT NOT FASTINGPERFORMED BY: [employer] [facility] Ucrgra5641 [facility] [id number] Information: MOUTH SRC:MO 1 (Normal) Comments: Inappropriate source for anaerobic culture. A routine aerobic culturewas initiated. Contact the Microbiology Lab for further information. :2 Test Code Change SPRCS (Normal) Comments: PATIENT NOT FASTINGPERFORMED BY: [employer] [facility] Bhwlrf0674 [facility] [id number] 1 Comments: Please note that the Microbiology test code was changed to reflectthe specimen source or transport received. :21 Upper Respiratory Culture Comments: PATIENT NOT FASTINGPERFORMED BY: [employer] [facility] Miulek2663 [facility] [id number] Result 1 RRF (Normal) Comments: Routine respiratory duyen Upper Respiratory Culture Final report (Normal) :59 Metabolic Panel, Comprehensive Comments: Jul 2017; PATIENT NOT FASTINGPERFORMED BY: [employer] [facility] Ielnjd2865 [facility] [id number] (63702) ALT (SGPT) 16 [iU]/L (Normal) Range: 0-32 [...] Glucose, Serum 80 mg/dL (Normal) Range: 65-99 65-Oxy-899467:59 MAGNESIUM (79751) Comments: today; PATIENT NOT FASTINGPERFORMED BY: [facility] Sazlzz7491 [facility] [id number] Magnesium, Serum 2.2 mg/dL (Normal) Range: 1.6-2.3 :04 Blood Glucose , Office (96231) Blood Glucose , Office 111 (Normal) :04 HgA1C , Office (39003) HgA1C , Office 5.5 % (Normal) Range: 4.6 - 7.1 :03 CBC W/Diff, Automated Comments: [facility] [address] [place], [place], [address] ; another doc Absolute Lymph 2.35 {X10_3/ul} [...] (Normal) Range: 4.4-11.0 :03 Protein+Creatinine Ratio,Urine Comments: [facility] [address] [place], [place], [address] PROT:CRE RATIO 403 {mg/g_CRE} (Abnormal) Range: 0-200 PROTEIN,UR.RAN. < 6.0 mg/dL (Normal) UR CREAT 13.90 mg/dL (Normal) 43-Kco-76485:03 PTH,INTACT Comments: [facility] [address] [place], [place], [address] PTH,Intact 34 pg/mL (Normal) Range: 14-72 75-Jws-89651:03 Renal Profile Comments: [facility] [address] [place], [place], [address] CO2 26.0 mmol/L (Normal) Range: 21.0-32.0 CL [...] 7-18 GLU 109 mg/dL (Normal) Range: 70-110 16-Jup-06365:03 Vitamin D 1,25-Dihydroxy Comments: [facility] (refer to report for specific site)refer to report for address and phone number VITD 09034 48.5 pg/mL (Normal) Range: 19.9-79.3 Comments: Performed at: [address] [id number] Director: Navdeep Medley MD, Phone: [phone] 33-Jzy-954461:06 Metabolic Panel, Comprehensive Comments: PATIENT NOT FASTINGPERFORMED BY: [facility])Jhwfmk4470 [facility] [id number] (25298) ALT (SGPT) 11 [iU]/L (Normal) Range: 0-32 [...] Glucose, Serum 78 mg/dL (Normal) Range: 65-99 78-Tib-944950:06 CBC, Platelets & Auto Diff Comments: PATIENT NOT FASTINGPERFORMED BY: [facility] Ubbcaf7785 [facility] [id number] (66534) Immature Grans (Abs) 0.0 {x10E3/uL} (Normal) Range: [...] 3.77-5.28 WBC 9.3 {x10E3/uL} (Normal) Range: 3.4-10.8 64-Xes-866540:06 TSH (12442) Comments: PATIENT NOT FASTINGPERFORMED BY: EMIL LabCoZoom Telephonics70 [facility] [id number] TSH 3.080 {uIU/mL} (Normal) Range: 0.450-4.500 84-Eww-673224:56 HgA1C , Office (49248) HgA1C , Office 5.5 % (Normal) Range: 4.6 - 7.1 37-Ujm-270738:56 Blood Glucose , Office (47260) Blood Glucose , Office 81 (Normal) :09 LIPID PANEL (47521) Comments: PATIENT WAS FASTINGPERFORMED BY: [employer] LabCoJoggleBugSdbngh8437 [facility] [id number] LDL/HDL Ratio 2.0 {ratio_units} (Normal) Range: 0.0-3.2 [...] PANEL, COMPREHENSIVE Comments: PATIENT WAS FASTINGPERFORMED BY: [facility]Ioykvn7653 [facility] [id number] (21818) ALT (SGPT) 15 [iU]/L (Normal) Range: 0-32 [...] Glucose, Serum 104 mg/dL (Abnormal) Range: 65-99 98-Frn-85613:04 METABOLIC PANEL, COMPREHENSIVE Comments: fax to Dr Henry; PATIENT WAS FASTINGPERFORMED BY: [facility] Iwynif8438 [facility] [id number] (25484) ALT (SGPT) 16 [iU]/L (Normal) Range: 0-32 [...] CREATININE RATIO Comments: PATIENT WAS FASTINGPERFORMED BY: [employer] Uetbph5492 [facility] FashionAdventhealth Hendersonvillein [place] [id number] (43670) AND (41467) Microalb/Creat Ratio <6.3 {mg/g_creat} (Normal) Range: 0.0-30.0 Microalbumin, Urine <3.0 ug/mL (Normal) Creatinine, Urine 48.0 mg/dL (Normal) :04 HGB A1C (17990) Comments: PATIENT WAS FASTINGPERFORMED BY: [employer] Dbkfso[address] [place] [id number] Hemoglobin A1c 5.7 % (Abnormal) Range: 4.8-5.6 Comments: . Pre-diabetes: 5.7 - 6.4 Diabetes: >6.4 Glycemic control for adults with diabetes: <7.0 :04 CALCIFEDIOL (51941) Comments: PATIENT WAS FASTINGPERFORMED BY: [employer] Rdgzvn6113 [address] [place] [id number] Vitamin D, 25-Hydroxy 24.2 ng/mL (Abnormal) Range: 30.0-100.0 Comments: Vitamin D deficiency has been defined by the [place] of[place]icine and an Endocrine Society practice guideline as alevel of serum 25-OH vitamin D less than 20 ng/mL (1,2).The Endocrine Society went on to further define vitamin Dinsufficiency as a level between 21 and 29 ng/mL (2).1. IOM ([place] of [employer]). 2010. Dietary reference intakes for calcium and D. [place]: The National Academies Press.2. Azael MF, Leslee NC, Hillary PHILLIPS, et al. Evaluation, treatment, and prevention of vitamin D deficiency: an Endocrine Society clinical practice guideline. JCEM. 2010; 96(7):1911-30. :04 TSH (THYROID STIMULATING Comments: PATIENT WAS FASTINGPERFORMED BY: LabCoBaitianshi Bmcrvl1995 [address] [facility] HospitalDublin [place] [id number] HORMONE) (27885) TSH 2.710 {uIU/mL} (Normal) Range: 0.450-4.500 :04 LIPID PANEL (15845) Comments: PATIENT WAS FASTINGPERFORMED BY: [employer] [facility] GroupJeff[facility])Wtccoc5031 [facility] [id number] LDL/HDL Ratio 1.7 {ratio_units} (Normal) Range: 0.0-3.2 [...] AUT DIFF Comments: PATIENT WAS FASTINGPERFORMED BY: [employer]6370 [facility] [id number] (82237) Immature Grans (Abs) 0.0 {x10E3/uL} (Normal) Range: [...] up testing of positive sera with both CA-3 and MPO- ANCA enzyme immunoassays. As many as 5% serumsamp les are positive only by EIA. Ref. AM J Clin Vlbtuv7163;111:507-513. CYTOPLASMIC Ab <1:20 {titer} (Normal) :28 Anti-dsDNA Ab Comments: [facility] (refer to report for specific site)refer to report for address and phone number dsDNA AB <1 {IU/mL} (Normal) Range: 0-9 Comments: Negative <5 Equivocal 5 - 9 Positive >9Performed at: [address] [id number] D irector: Junior Valera PhD, Phone: [phone] :28 Complement C3 Comments: Is Patient Fasting? [facility] (refer to report for specific site)refer to report for address and phone number COMP C3 127 mg/dL (Normal) Range: 82-167 Comments: Performed at: CB - [facility] [address] [place], [place] [id number] Director: Junior Valera PhD, Phone: [phone] :28 Complement C4 Comments: Is Patient Fasting? [...] electrophoresis scan will follow via computer,mail, or multimedia journalist delivery. LEOPOLDO RESULT,S Comment: (Normal) Comments: Presence of monoclonal protein is unclear at this time. Suggest repeat in 3 to 6 months if clinically indicated. A/G RATIO 0.9 (Normal) Range: 0.7-1.7 GLOBULIN, TOTAL 3.8 g/dL (Normal) Range: 2.2-3.9 M-SPIKE (Normal) Comments: Not Observed GAMMA GLOBULIN 1.4 g/dL (Normal) Range: 0.4-1.8 BETA GLOBULIN 1.3 g/dL (Normal) Range: 0.7-1.3 PZXRL-6-WRUW 0.9 g/dL (Normal) Range: 0.4-1.0 QFBJW-2-EPUP 0.2 g/dL (Normal) Range: 0.0-0.4 ALBUMIN 3.4 g/dL (Normal) Range: 2.9-4.4 IMMUNOGL M 44 mg/dL (Normal) Range: 26-217 IMMUNO A 614 mg/dL (Abnormal) Range: 87-352 IMMUNO G 1353 mg/dL (Normal) Range: 700-1600 PROTEIN,TOTAL 7.2 g/dL (Normal) Range: 6.0-8.5 :28 Protein+Creatinine Ratio,Urine Comments: [facility] [address] [place], [place], [id number] PROT:CRE RATIO 128 {mg/g_CRE} (Normal) Range: 0-200 PROTEIN,UR.RAN. 6.5 mg/dL (Normal) UR CREAT 50.60 mg/dL (Normal) :46 RENAL FUNCTION PANEL (26909) Comments: PATIENT NOT FASTINGPERFORMED BY: [facility]6370 [facility] [id number] Phosphorus, Serum 4.2 mg/dL (Normal) Range: 2.5-4.5 :46 PT (PROTHROMBIN TIME) (16337) Comments: PATIENT NOT FASTINGPERFORMED BY: [facility]6370 [facility] [id number] Prothrombin Time 10.9 {sec} (Normal) Range: 9.1-12.0 INR 1.1 (Normal) Range: 0.8-1.2 Comments: Reference interval is for non-anticoagulated patients. . Suggested INR therapeutic range for Vitamin K anta gonist therapy: Standard Dose (moderate intensity therapeutic range): 2.0 - 3.0 Higher intensity therapeutic range 2.5 - 3.5 :46 METABOLIC PANEL, COMPREHENSIVE Comments: PATIENT NOT FASTINGPERFORMED BY: [facility]6370 [facility] [id number] (14488) ALT (SGPT) 24 [iU]/L (Normal) Range: 0-32 [...] Glucose, Serum 109 mg/dL (Abnormal) Range: 65-99 23-Rma-599840:46 CBC, PLATELETS & AUT DIFF Comments: PATIENT NOT FASTINGPERFORMED BY: [facility] Cfozyq4146 [facility] [id number] Information: [id number] (83062) Immature Grans (Abs) 0.0 {x10E3/uL} (Normal) Range: [...] (Normal) Range: 3.4-10.8 :23 HgA1C , Office (05177) HgA1C , Office 5.4 % (Normal) Range: 4.6 - 7.1 :16 CBC-Complete Blood Cnt No Diff Comments: [facility] [address] [place], [address] MPV 8.8 fL (Normal) Range: [...] 4.4-11.0 :16 Serum Creatinine AND GFR Comments: [facility] [address] [place], [place], [id number] Estimated CRCL 27.75 ml/min (Normal) EST GFR - AA 37 mL/min (Abnormal) Comments: GFR Calc EST GFR 30 mL/min (Abnormal) Comments: Non- GFR Calc CREAT,SERUM 1.77 mg/dL (Abnormal) Range: 0.55-1.20 Comments: The validity of the calculated GFR AND GFRAA in patients over70 years has not been determined. Clinical correlation isessential. 22-Usr-369680:15 Bedside Glucose Comments: [facility] LaboratoryPoint of Sffe[address] [place], [place] [address] BEDSIDE GLU 128 mg/dL (Abnormal) Range: 70-110 Comments: Policy and Physicians Orders followedMANAGEMENT OF PATIENT CARE PER NURSING PROTOCOL HYSTERECTOMY SPECIMEN See Note (Normal) Comments: [facility] [address] [place], [address] :39 Comments: Patient: ELIZABETH TORO : 1950 (65/F) Acct Num: [id number] Phys: Gonsalo PROCTOR,Gm Unit Num: [id number] Loc: MS1 [id number] Specimen: [id number] Received: 06/22/161336 Spec Ty pe: HYSTERECT TISSUES TISSUES: COMMENT Please make reference to previous specimen ([id number]) endometrial biopsy with diagnosis of consistent with atrophic endometrium and ([id number]) e ndometrium andpolyp, excision with diagnosis of [...] measures 1.2 x 0.7 x 0.6 cm. Security Support Analyst sections are submitted inten cassettes as follows: [...] tube and ovary. / TONG:stormy 06/22/16 TC:1 CPT:97892 HEADER OPERATION: Lap robotic hysterectomy, BSO PRE-OP [...] Signed Sivakumar Mallory 06/23/16 <signature on file> 94-Ime-22055:31 Bedside Glucose Comments: [facility] LaboratoryPoint of Nods[address] [place] [address] BEDSIDE GLU 89 mg/dL (Normal) Range: 70-110 Comments: Physician Notified VBRBMANAGEMENT OF PATIENT CARE PER NURSING PROTOCOL 06-Bnc-442635:31 CBC-Complete Blood Cnt No Diff Comments: [facility] [address] [place], [place], [address] MPV 10.1 fL (Normal) Range: 6.2-12.0 PLT [...] 4.2-5.4 WBC 7.6 K/mm3 (Normal) Range: 4.4-11.0 74-Per-656103:31 Comprehensive Metabolic Profil Comments: [facility] [address] [place], [address] GAP 8 (Normal) Range: 5-15 CO2 24.0 [...] 7-18 GLU 87 mg/dL (Normal) Range: 70-110 85-Lxj-008310:31 Hemoglobin A1c Comments: [facility] [address]lyj[address] [place], [address] HGB A1C 5.6 % (Normal) Range: 4.2-6.3 :31 Partial Thromboplast Time Comments: [facility] [address]pmdd[address] [place], [address] PTT 27.7 s (Normal) Range: 24.1-36.2 :31 Prothrombin Time w/INR Comments: [facility] [address]woish[address] [place], [address] INR 1.1 (Normal) PROTIME 13.4 s (Normal) Range: 11.7-14.9 84-Len-125700:31 Thyroid Stim Hormone (TSH) Comments: [facility] [address]vbha[address] [place], [address] TSH 2.46 {uIU/mL} (Normal) Range: 0.358-3.74 99-Est-949309:31 Type AND Screen Comments: Surgery Date: 06/22/16Date of Last Transfusion (if within last 3 months) NHx of Preganancy in last 3 Months NoEver experience any problems with transfusion(s)? NHx of Transfusion in last 3 Months N Reason for Type AND Screen/Red Cells: SURGERYTime: 0600SURGICAL PROCEDURE: [facility]STER[facility] [address]phqgq[address] [place], [address] Antibody Screen NEGATIVE (Normal) BLOOD TYPE GEL A NEGATIVE (Normal) 72-Xgm-387674:28 Comprehensive Metabolic Profil Comments: Order Date: 06/10/16Order Date: 06/10/16[facility] [address] [place], [address] GAP 5 [...] 7-18 GLU 79 mg/dL (Normal) Range: 70-110 87-Nfw-026470:58 CBC W/Diff, Automated Comments: [facility] [address]gl[address] [place], [place], [address] Absolute Lymph 2.98 {X10_3/ul} (Normal) Range: 0.83-4.51 [...] 4.2-5.4 WBC 8.7 K/mm3 (Normal) Range: 4.4-11.0 63-Wdw-568671:58 Comprehensive Metabolic Profil Comments: Is Patient Taking Vitamins or Folic Acid Supplements? [facility] Pckjkjjeva[address]82 [facility] [place], [place], [address] GAP 8 (Normal) Range: 5-15 CO2 29.0 [...] Range: 70-110 :58 Erythrocyte Sed Rate Comments: [facility] [address] [place], [place], [phone] SED RATE 25 mm/h (Normal) Range: 0-30 95-Hsj-885303:58 Folates, (Folic Acid) Comments: Is Patient Taking Vitamins or Folic Acid Supplements? [facility] [address] [place], [place], [phone] FOLATES 9.60 ng/mL (Normal) Range: 3.1-17.5 03-Csf-743781:58 Thyroid Stim Hormone (TSH) Comments: Is Patient Taking Vitamins or Folic Acid Supplements? [facility] [address] [place], [address] TSH 2.58 {uIU/mL} (Normal) Range: 0.358-3.74 49-Zae-684988:58 Vitamin B12 543 pg/mL (Normal) Comments: [facility] [address] [place], [place], [address] Range: 211-911 37-Tok-015745:07 Urinalysis, Office (99238) UA - LEUKOCYTE ESTERASE Trace (Normal) UA - NITRITE Negative (Normal) URINE UROBILINGN SHARIFA TIMED Normal mg/dL (Normal) UA - PROTEIN Negative mg/dL (Normal) UA - PH 6.5 (Normal) UA - BLOOD Hemolyzed Trace (Normal) UA - SPECIFIC GRAVITY 1.005 (Normal) UA - KETONES Negative mg/dL (Normal) UA - BILIRUBIN Negative (Normal) UA - GLUCOSE Negative (Normal) 80-Iyo-942444:04 URINE VERÓNICA CULTURE-SHARIFA COL Comments: PATIENT NOT FASTINGPERFORMED BY: EMIL [facility] Mcnxra[address] [place] [id number] Information: SRC:[facility] [id number] COUNT (89296) Antimicrobial MIHEAD (Normal) Comments: S = Susceptible; [...] (Abnormal) Urine Final report Culture,Comprehensive (Abnormal) EGD ([facility]) See Note (Normal) Comments: [facility] [address]vh[address] [place], [address]:04 Comments: Patient: ELIZABETH TORO : 1950 (65/F) Acct Num: [id number] Phys: Junior Pena Unit Num: [id number] Loc: LABSPEC Specimen: [id number] Received: 04/21/16 - 1638 Spec Type: EGD [...] in one cassette. / TONG:stormy 04/22/16 TC:3 CPT:93977 HEADER OPERATION: EGD with biopsy PRE-OP DIAGNOSIS: Dysphagia TISSUE SUBMITTED: Esophageal biopsy, R/O EE MICROSCOPIC DESCRIP TION Slides are reviewed. MICROSCOPIC DIAGNOSIS Esophageal biopsy: Fragments of squamous epithelium with mild chronic inflammation. See comment. SJ:stormy 04/23/16 Signed Sivakumar Mallory 04/23/16 <signature on file> CERVICAL See Note (Normal) Comments: [facility] [address] [place], [address] 12907:15 Comments: Patient: ELIZABETH TORO : 1950 (65/F) Acct Num: [id number] Phys: Gonsalo PROCTOR,[facility]ly [facility] Num: [id number] Loc: [facility] Specimen: [id number] Received: 04/13/161335 Spec Type: CER V TISSUES [...] one cassette. / AM: 04/13/16 TC:5 CPT: 35312 x 2 HEADER OPERATION: Hysteroscopy, diagnostic, D AND C PRE-OP DIAGNOSIS: Postmenopausal bleeding TISSUE SUBMITTED: A - Endocervical curettings, B - Endometrial curettings and polyp [facility] DESCRIPTION Slides are reviewed. MICROSCOPIC DIAGNOSIS A. Endocervix, curettings: Strips of benign superficial endocervix. Rare strips of benign superficial ectocervix. B. Endom etrium and polyp, excision: Benign endometrial polyp with simple cystic hyperplasia without atypia. Scant strips of benign superficial endometrium. AM: 04/14/16 Signed Ras Easley 04/14/16 <signature on file> 69-Qct-50496:04 Bedside Glucose Comments: [facility] LaboratoryPoint of Uhja[address] [place] [address] BEDSIDE GLU 98 mg/dL (Normal) Range: 70-110 Comments: No Action RequiredMANAGEMENT OF PATIENT CARE PER NURSING PROTOCOL :08 CBC-Complete Blood Cnt No Diff Comments: [facility] [address] [place], [address] MPV 9.4 fL (Normal) Range: [...] Range: 4.4-11.0 :08 Comprehensive Metabolic Profil Comments: [facility] [address]ryn[address] [place], [address] GAP 8 (Normal) Range: 5-15 [...] Range: 70-110 :08 Partial Thromboplast Time Comments: [facility] [address] [place], [address] PTT 29.8 s (Normal) Range: 24.1-36.2 :08 Prothrombin Time w/INR Comments: [facility] [address]gg[address] [place], [address] INR 1.1 (Normal) PROTIME 13.6 s (Normal) Range: 11.7-14.9 :08 Type AND Screen Comments: Surgery Date: 04/13/16Date of Last Transfusion (if within last 3 months) NHx of Preganancy in last 3 Months NoEver experience any problems with transfusion(s)? NHx of Transfusion in last 3 Months N Reason for Type AND Screen/Red Cells: SURGERYTime: 1015SURGICAL PROCEDURE: [facility] [address]nlks[address] [place], [address] Antibody Screen NEGATIVE (Normal) BLOOD TYPE GEL A NEGATIVE (Normal) ENDOMETRIAL See Note (Normal) Comments: [facility] [address] [place], [address] 6:00 BX/CURETTINGS Comments: Patient: ELIZABETH TORO : 1950 (65/F) Acct Num: [id number] Phys: Gonsalo PROCTOR,[facility] Num: [id number] Loc: LABSPEC Specimen: [id number] Received: 03/26/16 - 1600 Spec Type: ENDOM [...] in one cassette. / AM:stormy 03/27/16 TC:4 CPT:39582 HEADER OPERATION: Endometrial biopsy PRE-OP DIAGNOSIS: N95.0 TISSUE SUBMITTED: EMB MICROSCOPIC DESCRIPTION Slides are r eviewed. MICROSCOPIC DIAGNOSIS Endometrial biopsy: Scant strips of benign endometrial epithelium, consistent with atrophic endometrium. Fragments of benign endocervical epithelium and mucous. 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 of containers..01 CYTYC Thin Prep VialLabCorp (refer to report for specific site)refer to report for address and phone number HPV RFLX Comment (Normal) Comments: The HPV DNA reflex criteria were not met with this specimenresult therefore, no HPV testing was performed.Performed at: [address] [id number] Director: Annamaria Menezes MD, Phone: [phone] PAPSMR Comment (Normal) Comments: The Pap smear [...] system. PERFORM Comment (Normal) Comments: Adeline Singleton, [employer] Mining Machine Helper (ASCP) ADEQ Comment (Normal) Comments: Satisfactory for evaluation. DIAGN Comment (Normal) Comments: NEGATIVE FOR INTRAEPITHELIAL LESION AND MALIGNANCY. 40-Xoy-53144:20 Urinalysis, Complete Comments: How was Urine Obtained? ENERGY CONSERVATION DIRECTOR TO SPECIFYSelect [facility] [address]vficin[address] [place], [address] MUCUS, URINE 0 SEEN {/hpf} [...] (Normal) CLARITY Clear (Normal) COLOR Straw (Normal) 41-Qci-395656:50 Basic Metabolic Profile (BMP) Comments: [facility] Baljpfbmsw[address] [place], [address] GAP 7 (Normal) Range: 5-15 [...] <126 mg/dLsuggests IMPAIRED HOMEOSTASIS per A.D.A. criteria. 22-Prp-890505:50 CBC W/Diff, Automated Comments: [facility] [address]ffp[address] [place], [address] Absolute Lymph 3.53 {X10_3/ul} (Normal) Range: 0.83-4.51 [...] K/mm3 (Normal) Range: 4.4-11.0 :02 Rapid Flu (43166 x 2) Influenza A Ag negative (Normal) 4-Rym-147865:31 SJOGREN ANTIBOIDIES Comments: PATIENT NOT FASTINGPERFORMED BY: [facility]Iocivb5405 [facility] [id number] Information: [id number] (ANTI-SS-A/ANTI-SS-B) (82839) Sjogren's Anti-SS-B <0.2 {AI} (Normal) Range: 0.0-0.9 Sjogren's Anti-SS-A <0.2 {AI} (Normal) Range: 0.0-0.9 :28 Rapid Strep Test, Office (60186) Rapid Strep Test, Office Negative (Normal) 5-Ond-566703:37 Throat Culture (25460) Comments: PATIENT NOT FASTINGPERFORMED BY: [facility]6370 [facility] [id number] Information: SRC:THRT [id number] Result 1 BETAGB (Abnormal) Comments: Beta hemolytic [...] 2011) Upper Respiratory Culture Final report (Abnormal) 6-Hkv-749311:45 Basic Metabolic Profile (BMP) Comments: 'TROP' Serial specimen #1, #2, #3, or #4: 1[facility] [address]hk[address] [place], [address] GAP 9 (Normal) Range: 5-15 CO2 23.0 [...] 7-18 GLU 92 mg/dL (Normal) Range: 70-110 1-Yvy-455153:45 CBC W/Diff, Automated Comments: [facility] [address]yjqhv[address] [place], [place], [address] Absolute Lymph 2.03 {X10_3/ul} (Normal) Range: 0.83-4.51 [...] Serial specimen #1, #2, #3, or #4: [address] [place] [address] Rc[address]aim[address]893 [facility] [place], [address] TSH 1.50 {uIU/mL} (Normal) Range: 0.358-3.74 :45 Troponin-I Comments: 'TROP' Serial specimen #1, #2, #3, or #4: [address] [place] [address] [address] [place], [place], [address] TROPONIN-I < 0.02 ng/mL (Normal) Comments: TROPONIN-I EXPECTED VALUES <0.05 NEGATIVE 0.06 - 0.59 AT RISK OF ME > OR = 0.60 SUGGEST ME 95-Zkv-63544:53 Pap IG (Image Comments: Source.............Cervical;EndocervicalNo. of containers..01 CYTYC Thin Prep VialPATIENT NOT FASTINGPERFORMED BY: =G [facility] [address] [id number] BY: WB L Guided) [facility] [address] [id number] Note: PAPSMR (Normal) Comments: The Pap smear [...] of partially obscuring exudate are present.Z00.00Adeline Singleton [employer] Mining Machine Helper (ASCP) :01 HgA1C , Office (94316) HgA1C , Office 5.9 % (Normal) Range: 4.6 - 7.1 :00 Blood Glucose , Office (41549) Blood Glucose , Office 126 (Normal) :53 Thin Prep Pap Comments: Source.............Cervical;EndocervicalNo. of containers..01 CYTYC Thin Prep VialPATIENT NOT FASTINGPERFORMED BY: =G [facility] Qfacrtgxar781 [facility] [id number] BY: SARAY Jose (78799) [facility] Zvqbjkvuhs223 [facility] [id number] Information: [id number] Age Gdln ACOG Testing AGE4 (Normal) Comments: <21 or >65 or no age provided :34 METABOLIC PANEL, Comments: PATIENT WAS FASTINGPERFORMED BY: EMIL [facility] Qpdnzt6305 [facility] [id number] Information: [id number] COMPREHENSIVE (24324) ALT (SGPT) 18 [iU]/L (Normal) Range: 0-32 [...] 83 mg/dL (Normal) Range: 65-99 :34 CALCIFIDIOL (66244) VIT D 25 Comments: PATIENT WAS FASTINGPERFORMED BY: [facility]Ifxewe3925 [facility] [id number] Vitamin D, 25-Hydroxy 59.6 ng/mL (Normal) Range: 30.0-100.0 Comments: Vitamin D deficiency has been defined by the [place] ofPro[facility] Hospitalcine and an Endocrine Society practice guideline as alevel of serum 25-OH vitamin D less than 20 ng/mL (1,2).The Endocrine Society went on to further define vitamin Dinsufficiency as a level between 21 and 29 ng/mL (2).1. IOM ([place] of [employer]). 2010. Dietary reference intakes for calcium and D. [place]: The National Academies Press.2. Azael MF, Leslee NC, Hillary PHILLIPS, et al. Evaluation, treatment, and prevention of vitamin D deficiency: an Endocrine Society clinical practice guideline. JCEM. 2010; 96(7):1911-30. :37 HgA1C , Office (76412) HgA1C , Office 6.1 % (Normal) Range: 4.6 - 7.1 :37 Blood Glucose , Office (16620) Blood Glucose , Office 107 (Normal) :27 TSH (THYROID STIMULATING Comments: PATIENT WAS FASTINGPERFORMED BY: [facility]6370 [facility] [id number] HORMONE) (99065) TSH 2.480 {uIU/mL} (Normal) Range: 0.450-4.500 :27 CALCIFEDIOL (38629) Comments: PATIENT WAS FASTINGPERFORMED BY: LabMymich[facility]6370 [facility] [id number] Vitamin D, 25-Hydroxy 16.7 ng/mL (Abnormal) Range: 30.0-100.0 Comments: Vitamin D deficiency has been defined by the [place] [facility] Hospitalcine and an Endocrine Society practice guideline as alevel of serum 25-OH vitamin D less than 20 ng/mL (1,2).The Endocrine Society went on to further define vitamin Dinsufficiency as a level between 21 and 29 ng/mL (2).1. IOM ([place] [employer]). 2010. Dietary reference intakes for calcium and D. [place]: The National Academies Press.2. Azael MF, Leslee NC, Hillary PHILLIPS, et al. Evaluation, treatment, and prevention of vitamin D deficiency: an Endocrine Society clinical practice guideline. JCEM. 2010; 96(7):1911-30. :27 LIPID PANEL (74743) Comments: PATIENT WAS FASTINGPERFORMED BY: [facility]6370 [facility] [id number] LDL/HDL Ratio 1.2 {ratio_units} (Normal) Range: 0.0-3.2 [...] COMPREHENSIVE Comments: PATIENT WAS FASTINGPERFORMED BY: [employer] [facility] Consult[facility] GroupJefferson [facility])Sekcqz5866 [facility] [id number] (81115) ALT (SGPT) 19 [iU]/L (Normal) Range: 0-32 [...] & MANUAL Comments: PATIENT WAS FASTINGPERFORMED BY: [employer] [facility] Consult[facility] GroupJefferson [facility])Vdakhs8010 [facility] [id number] Information: [id number], [id number] DIFF (28178) Immature Grans (Abs) 0.0 {x10E3/uL} (Normal) Range: [...] 3.77-5.28 WBC 7.0 {x10E3/uL} (Normal) Range: 3.4-10.8 76-Dyp-727222:31 CREATININE CLEARANCE Comments: PATIENT NOT FASTINGPERFORMED BY: [facility])Tedrec3524 [facility] [id number] Information: [id number] START @9AM FINISH 01/28/15@9 AM (06911) Creatinine Clearance 53 mL/min (Abnormal) Range: 88-128 [...] Hour Urine Comments: PATIENT NOT FASTINGPERFORMED BY: [facility]6370 [facility] [id number] (88274) Prot,24hr calculated 357.5 {mg/24_hr} (Abnormal) Range: 30.0-150.0 Protein,Total,Urine 13.0 mg/dL (Normal) Range: 0.0-15.0 :28 HgA1C , Office (38426) HgA1C , Office 5.9 % (Normal) Range: 4.6 - 7.1 :28 Blood Glucose , Office (44329) Blood Glucose , Office 136 (Normal) :53 TSH (08402) Comments: PATIENT WAS FASTINGPERFORMED BY: [facility]6370 [facility] [id number] TSH 4.370 {uIU/mL} (Normal) Range: 0.450-4.500 :53 MICROALBUMIN: CREATININE RATIO Comments: PATIENT WAS FASTINGPERFORMED BY: [facility]6370 [facility] [id number] (57856) AND (12205) Microalb/Creat Ratio 5.0 {mg/g_creat} (Normal) Range: 0.0-30.0 Microalbumin, Urine 4.5 ug/mL (Normal) Range: 0.0-17.0 Creatinine, Urine 90.5 mg/dL (Normal) Range: 15.0-278.0 :53 METABOLIC PANEL, COMPREHENSIVE Comments: PATIENT WAS FASTINGPERFORMED BY: [facility]6370 [facility] [id number] (22788) ALT (SGPT) 20 [iU]/L (Normal) Range: 0-32 [...] mg/dL (Abnormal) Range: 65-99 07-Jan-20158:53 LIPID PANEL (05985) Comments: PATIENT WAS FASTINGPERFORMED BY: LabM[facility]6370 [facility] [id number] LDL/HDL Ratio 1.4 {ratio_units} (Normal) Range: 0.0-3.2 [...] DIFF WBC Comments: PATIENT WAS FASTINGPERFORMED BY: [employer] [facility] [id number] Information: [id number] (06305) Immature Grans (Abs) 0.0 {x10E3/uL} (Normal) Range: [...] 7.8 {x10E3/uL} (Normal) Range: 3.4-10.8 :53 CALCIFIDIOL (05809) VIT D 25 Comments: PATIENT WAS FASTINGPERFORMED BY: [employer] Szsikb9173 [facility] [id number] Vitamin D, 25-Hydroxy 22.5 ng/mL (Abnormal) Range: 30.0-100.0 Comments: Vitamin D deficiency has been defined by the [place] of[place]icine and an Endocrine Society practice guideline as alevel of serum 25-OH vitamin D less than 20 ng/mL (1,2).The Endocrine Society went on to further define vitamin Dinsufficiency as a level between 21 and 29 ng/mL (2).1. IOM ([place] [employer]). 2010. Dietary reference intakes for calcium and D. [place]: The National Academies Press.2. Azael MF, Leslee LEMON, Hillary PHILLIPS, et al. Evaluation, treatment, and prevention of vitamin D deficiency: an Endocrine Society clinical practice guideline. JCEM. 2010; 96(7):1911-30. :22 HgA1C , Office (80594) HgA1C , Office 6.0 % (Normal) Range: 4.6 - 7.1 :22 Blood Glucose , Office (50602) Blood Glucose , Office 132 (Normal) :27 Blood Glucose , Office (61511) Blood Glucose , Office 114 (Normal) :27 HgA1C , Office (93059) HgA1C , Office 5.9 % (Normal) Range: 4.6 - 7.1 :00 Basic Metabolic Panel (8) Comments: PATIENT NOT FASTINGPERFORMED BY: CB [facility] Lscmbn8935 [facility] [id number] BY: [facility] [address] [id number] Calcium, Serum 9.8 mg/dL (Normal) Range: 8.6-10.2 [...] 287 {mOsmol/kg} Comments: PATIENT NOT FASTINGPERFORMED BY: [employer] Vxynot5470 [facility] [id number] BY: Pixia[address] [id number] 00 (Normal) Range: 280-301 : Osmolality, Urine 259 {mOsmol/kg} Comments: PATIENT NOT FASTINGPERFORMED BY: [employer] Tgpxgh1228 [facility] [id number] BY: Pixia[address] [id number] 00 (Normal) Comments: 24 hr : 300 - 900 Random: 50 - 1400 After 12hr fluid restriction: >850 : Sodium, Urine 11 mmol/L (Normal) Comments: PATIENT NOT FASTINGPERFORMED BY: Way[employer] NetworksJack Ville 6273570 [facility] [id number] BY: Pixia[address] [address] [id number] 00 8-Ade-204174:06 Metabolic Panel, Basic Comments: PATIENT NOT FASTINGPERFORMED BY: [employer] Lrcnmr9206 [facility] [id number] Information: [id number] (03369) Calcium, Serum 9.9 mg/dL (Normal) Range: 8.6-10.2 [...] 4.2-5.4 WBC 9.6 K/mm3 (Normal) Range: 4.4-11.0 66-Yxv-167556:34 CMP Comments: 'TROP' Serial specimen #1, #2, [...] <0.05 NEGATIVE0.06 - 0.59 AT RISK OF ME> OR = 0.60 SUGGEST ME :34 TSH 2.32 {uIU/mL} (Normal) Comments: 'TROP' Serial specimen #1, #2, #3, or #4: 1 Range: 0.358-3.74 01-May-20140:00 Microscopic Examination Comments: PATIENT WAS FASTINGPERFORMED BY: [facility] Ugxalx3204 [facility] [id number] Bacteria Few (Normal) Mucus Threads Present (Normal) Epithelial Cells (non renal) 0-10 {/hpf} (Normal) Range: 0 - 10 RBC 0-2 {/hpf} (Normal) Range: 0 - 2 WBC 11-30 {/hpf} (Abnormal) Range: 0 - 5 33-Ywm-378419:15 TSH (00692) Comments: PATIENT WAS FASTINGPERFORMED BY: [facility] Mjjekg0350 [facility] [place] [id number] TSH 3.310 {uIU/mL} (Normal) Range: 0.450-4.500 35-Hfl-976742:15 CALCIFIDIOL (59845) VIT D 25 Comments: PATIENT WAS FASTINGPERFORMED BY: [facility] Xzosjb6320 [facility] [id number] Vitamin D, 25-Hydroxy 35.7 ng/mL (Normal) Range: 30.0-100.0 Comments: Vitamin D deficiency has been defined by the [place] [facility] and an Endocrine Society practice guideline as alevel of serum 25-OH vitamin D less than 20 ng/mL (1,2).The Endocrine Society went on to further define vitamin Dinsufficiency as a level between 21 and 29 ng/mL (2).1. IOM ([place] of [employer]). 2010. Dietary reference intakes for calcium and D. [place]: The National Academies Press.2. Azael MF, Leslee LEMON, Hillary PHILLIPS, et al. Evaluation, treatment, and prevention of vitamin D deficiency: an Endocrine Society clinical practice guideline. JCEM. 2010; 96(7):1911-30. 72-Aol-361434:15 URINALYSIS, W/ MICRO (18113) Comments: PATIENT WAS FASTINGPERFORMED BY: [facility] Uxydiv5333 [facility] [place] [id number] Microscopic Examination See below: (Normal) Nitrite, Urine Positive (Abnormal) Bilirubin Negative (Normal) Urobilinogen,Semi-Qn 0.2 mg/dL (Normal) Range: 0.0-1.9 Ketones Negative (Normal) Occult Blood Negative (Normal) Glucose Negative (Normal) Protein Negative (Normal) Appearance Clear (Normal) WBC Esterase 2+ (Abnormal) pH 6.5 (Normal) Range: 5.0-7.5 Urine-Color Yellow (Normal) Specific [place] 1.015 (Normal) Range: 1.005-1.030 12-Drm-081420:15 METABOLIC PANEL, COMPREHENSIVE Comments: PATIENT WAS FASTINGPERFORMED BY: [employer] [facility] Consult[facility] GroupHoly Cross HospitalFthryt5469 [facility] [id number] (14337) ALT (SGPT) 19 [iU]/L (Normal) Range: 0-32 [...] Glucose, Serum 118 mg/dL (Abnormal) Range: 65-99 59-Mnu-676614:15 LIPID PANEL (81232) Comments: PATIENT WAS FASTINGPERFORMED BY: [facility] GroupJeff[facility]Syaptb5923 [facility] [id number] LDL/HDL Ratio 1.7 {ratio_units} (Normal) Range: 0.0-3.2 LDL Cholesterol Calc 90 mg/dL (Normal) Range: 0-99 VLDL Cholesterol Hillary 33 mg/dL (Normal) Range: 5-40 HDL Cholesterol 53 mg/dL (Normal) Comments: According to ATP-III Guidelines, HDL-C >59 mg/dL is considered anegative risk factor for CHD. Triglycerides 166 mg/dL (Abnormal) Range: 0-149 Cholesterol, Total 176 mg/dL (Normal) Range: 100-199 30-Ova-914934:15 CBC WITH MANUAL DIFF Comments: PATIENT WAS FASTINGPERFORMED BY: [facility]CoJeff[facility]Sycaqd1272 [facility] [id number] Information: [id number] (74200) Immature Grans (Abs) 0.0 {x10E3/uL} (Normal) Range: [...] 3.77-5.28 WBC 7.0 {x10E3/uL} (Normal) Range: 3.4-10.8 35-Nwv-974286:20 Blood Glucose , Office (63991) Blood Glucose , Office 102 (Normal) 84-Pyz-885673:20 HgA1C , Office (42990) HgA1C , Office 6.0 % (Normal) Range: 4.6 - 7.1 8-Ncs-987545:27 URINE VERÓNICA CULTURE-IDENTIFICATN Comments: PATIENT NOT FASTINGPERFORMED BY: LabCoJack [place] 6273570 [facility] [id number] Information: [id number] (66236) Result 1 NG36 (Normal) Comments: No growth in 36 - 48 hours. Urine Culture,Comprehensive Final report (Normal) 0-Opn-682030:03 URINALYSIS (18227) URINALYSIS neg for all (Normal) 61-Ndv-03283:31 URINE VERÓNICA CULTURE-SHARIFA COL Comments: PATIENT NOT FASTINGPERFORMED BY: LabJoggleBug Cnzopi3067 [facility] [id number] Information: SRC:UR [id number] COUNT ([id number]) Antimicrobial MIHEAD (Normal) Comments: S = Susceptible; [...] Final report Culture,Comprehensive (Normal) :26 Urinalysis, Office (02995) UA - LEUKOCYTE ESTERASE Moderate (Normal) UA - NITRITE Negative (Normal) URINE UROBILINGN SHARIFA TIMED Normal mg/dL (Normal) UA - PROTEIN Negative mg/dL (Normal) UA - PH 5 (Abnormal) UA - BLOOD Hemolyzed Small (Normal) UA - SPECIFIC GRAVITY 1.025 (Normal) UA - KETONES Negative mg/dL (Normal) UA - BILIRUBIN Negative (Normal) UA - GLUCOSE Negative (Normal) :52 LIPID PANEL (70832) Comments: PATIENT WAS FASTINGPERFORMED BY: [employer]70 [facility] [id number] Information: [id number] LDL/HDL Ratio 2.1 {ratio_units} (Normal) Range: 0.0-3.2 LDL Cholesterol Calc 111 mg/dL (Abnormal) Range: 0-99 VLDL Cholesterol Hillary 31 mg/dL (Normal) Range: 5-40 HDL Cholesterol 53 mg/dL (Normal) Comments: According to ATP-III Guidelines, HDL-C >59 mg/dL is considered anegative risk factor for CHD. Triglycerides 156 mg/dL (Abnormal) Range: 0-149 Cholesterol, Total 195 mg/dL (Normal) Range: 100-199 :52 HEPATIC FUNCTION PANEL (83563) Comments: PATIENT WAS FASTINGPERFORMED BY: [employer] [facility] [id number] ALT (SGPT) 17 [iU]/L (Normal) Range: 0-32 AST (SGOT) 23 [iU]/L (Normal) Range: 0-40 Alkaline Phosphatase, S 57 [iU]/L (Normal) Range: 39-117 Bilirubin, Direct 0.08 mg/dL (Normal) Range: 0.00-0.40 Bilirubin, Total 0.3 mg/dL (Normal) Range: 0.0-1.2 Albumin, Serum 4.3 g/dL (Normal) Range: 3.6-4.8 Protein, Total, Serum 7.2 g/dL (Normal) Range: 6.0-8.5 :52 CALCIFEDIOL (51224) Comments: PATIENT WAS FASTINGPERFORMED BY: Netstorylin6370 [facility] [id number] Vitamin D, 25-Hydroxy 13.8 ng/mL (Abnormal) Range: 30.0-100.0 Comments: Vitamin D deficiency has been defined by the [place] of[place] and an Endocrine Society practice guideline as alevel of serum 25-OH vitamin D less than 20 ng/mL (1,2).The Endocrine Society went on to further define vitamin Dinsufficiency as a level between 21 and 29 ng/mL (2).1. IOM ([place] of [employer]). 2010. Dietary reference intakes for calcium and D. [place]: The National Academies Press.2. Azael MF, Leslee LEMON, Hillary PHILLIPS, et al. Evaluation, treatment, and prevention of vitamin D deficiency: an Endocrine Society clinical practice guideline. JCEM. 2010; 96(7):1911-30. 38-Uwj-494013:38 Blood Glucose , Office (61478) Blood Glucose , Office 114 (Normal) 85-Cej-385332:38 HgA1C , Office (60626) HgA1C , Office 5.8 % (Normal) Range: 4.6 - 7.1 14-Knl-342659:23 Urinalysis, Office (82748) UA - BILIRUBIN Negative (Normal) UA - BLOOD Hemolyzed Trace (Normal) UA - GLUCOSE Negative (Normal) UA - KETONES Negative mg/dL (Normal) UA - LEUKOCYTE ESTERASE Small (Normal) UA - NITRITE Negative (Normal) UA - PH 5.0 (Normal) UA - PROTEIN Negative mg/dL (Normal) UA - SPECIFIC GRAVITY 1.025 (Normal) URINE UROBILINGN SHARIFA TIMED Normal mg/dL (Normal) 92-Yva-256422:50 Metabolic Panel, Basic Comments: PATIENT NOT FASTINGPERFORMED BY: [facility]CoJeff[facility])Owasbk0356 [facility] [id number] Information: [id number] (10308) Calcium, Serum 9.9 mg/dL (Normal) Range: 8.6-10.2 [...] Glucose, Serum 84 mg/dL (Normal) Range: 65-99 17-Hqk-629373:39 BRAIN WITHOUT CONTRAST Radiology Report See Note [...] Sweeney M.D.July 12, 2013 at 4:19:02 PM [id number] Signed PV/PV If you are the referring physician and would like to consult with theradiologist who provided this interpretation, please contact Petrona molina M.D. at [phone]. If this radiologist is unavailable, youwillbe directed to another radiologist to assist. If you are a patient with a question regarding this report, pleasecontactyour referring physician directly. Professional Interpretation Provided By: [employer], Phone , These documents contain legally protected [...] in one week; PATIENT NOT FASTINGPERFORMED BY: [facility]CoJeff[facility])Imwfeo0533 [facility] [id number] Information: [id number] (78656) Calcium, Serum 9.7 mg/dL (Normal) Range: 8.6-10.2 [...] Panel, Basic Comments: PATIENT NOT FASTINGPERFORMED BY: [employer]70 [facility]elliumNov[facility] [id number] Information: [id number] (95869) Calcium, Serum 9.5 mg/dL (Normal) Range: 8.6-10.2 [...] (Abnormal) Range: 65-99 :29 HgA1C , Office (26711) HgA1C , Office 5.7 % (Normal) Range: 4.6 - 7.1 :14 TSH (38244) Comments: PATIENT NOT FASTINGPERFORMED BY: [facility] [id number] TSH 2.850 {uIU/mL} (Normal) Range: 0.450-4.500 41-Tig-899743:14 CBC, Platelets & Auto Comments: PATIENT NOT FASTINGPERFORMED BY: [facility] Ncbnvu7951 [address] AlfonsoNovant Health Ballantyne Medical Center [id number] Information: [id number] Diff (33782) Immature Grans (Abs) 0.0 {x10E3/uL} (Normal) Range: [...] 3.77-5.28 WBC 7.5 {x10E3/uL} (Normal) Range: 4.0-10.5 38-Lyt-734015:14 Metabolic Panel, Comprehensive Comments: PATIENT NOT FASTINGPERFORMED BY: [facility]CoJeff[facility])Uxgwty5627 [facility] [id number] (77578) ALT (SGPT) 19 [iU]/L (Normal) Range: 0-32 [...] Glucose, Serum 105 mg/dL (Abnormal) Range: 65-99 41-Dzm-970142:06 URINE VERÓNICA CULTURE-SHARIFA COL Comments: PATIENT NOT FASTINGPERFORMED BY: [facility]6370 [facility] [id number] Information: SRC:UR ADD [id number] COUNT (45722) Antimicrobial MIHEAD (Normal) Comments: S = Susceptible; [...] mL (Normal) Urine Final report Culture,Comprehensive (Normal) 79-Nxg-992816:09 Urinalysis, Office (98115) UA - BILIRUBIN Negative (Normal) UA - BLOOD Hemolyzed Moderate (Normal) UA - GLUCOSE Negative (Normal) UA - KETONES Negative mg/dL (Normal) UA - LEUKOCYTE ESTERASE Small (Normal) UA - NITRITE Negative (Normal) UA - PH 6.0 (Normal) UA - PROTEIN Negative mg/dL (Normal) UA - SPECIFIC GRAVITY 1.005 (Normal) URINE UROBILINGN SHARIFA TIMED 2 mg/dL (Normal) 3-Kmx-250151:04 Renal function Panel Comments: PATIENT NOT FASTINGPERFORMED BY: [facility]CoJeff[facility])Pekigd4815 [facility] [id number] Information: [id number] (46740) Albumin, Serum 4.1 g/dL (Normal) Range: 3.6-4.8 [...] Glucose, Serum 110 mg/dL (Abnormal) Range: 65-99 83-Ofd-652477:22 CALCIFEDIOL (78450) Comments: PATIENT NOT FASTINGPERFORMED BY: CB [facility] Qjjblu3462 [address] RoadDublin [place] [id number] Vitamin D, 25-Hydroxy 16.7 ng/mL (Abnormal) Range: 30.0-100.0 Comments: Vitamin D deficiency has been defined by the [place] [facility] and an Endocrine Society practice guideline as alevel of serum 25-OH vitamin D less than 20 ng/mL (1,2).The Endocrine Society went on to further define vitamin Dinsufficiency as a level between 21 and 29 ng/mL (2).1. IOM ([place] of [employer]). 2010. Dietary reference intakes for calcium and D. [place]: The National Academies Press.2. Azael MF, Leslee LEMON, Hillary PHILLIPS, et al. Evaluation, treatment, and prevention of vitamin D deficiency: an Endocrine Society clinical practice guideline. JCEM. 2010; 96(7):1911-30. 01-Ncj-948042:22 MAGNESIUM (51186) Comments: PATIENT NOT FASTINGPERFORMED BY: CB [facility] Vkuvfo6913 Monk RoadDublin [place] [id number] Magnesium, Serum 2.3 mg/dL (Normal) Range: 1.6-2.6 06-Gpf-808072:22 T4, FREE (THYROXINE) (45329) Comments: PATIENT NOT FASTINGPERFORMED BY: [facility] Mhdaau3438 [address]k RoadDublin [place] [id number] T4,Free(Direct) 1.50 ng/dL (Normal) Range: 0.82-1.77 15-Pci-109885:22 T3, FREE (TRIDOTHYRONINE) (91875) Comments: PATIENT NOT FASTINGPERFORMED BY: CB [facility] Rzdqzp2179 [address]k RoadDublin [place] [id number] Triiodothyronine,Free,Serum 2.6 pg/mL (Normal) Range: 2.0-4.4 12-Hfk-109648:22 TSH (91716) Comments: PATIENT NOT FASTINGPERFORMED BY: CB [facility] Klmlwl7215 [address]k RoadDublin [place] [id number] TSH 1.920 {uIU/mL} (Normal) Range: 0.450-4.500 :22 CBC, Platelets & Auto Comments: PATIENT NOT FASTINGPERFORMED BY: EMIL [facility] Bimwqu3125 [address] [place] [id number] Information: [id number] Diff (91460) Immature Grans (Abs) 0.0 {x10E3/uL} (Normal) Range: [...] 3.77-5.28 WBC 8.5 {x10E3/uL} (Normal) Range: 4.0-10.5 37-Npz-634519:22 Metabolic Panel, Comprehensive Comments: PATIENT NOT FASTINGPERFORMED BY: EMIL [facility]6370 [facility] [id number] (31646) ALT (SGPT) 21 [iU]/L (Normal) Range: 0-32 [...] Glucose, Serum 97 mg/dL (Normal) Range: 65-99 8-Mdy-228363:20 METABOLIC PANEL, COMPREHENSIVE Comments: PATIENT WAS FASTINGPERFORMED BY: [facility]6370 [facility] [id number] (55713) ALT (SGPT) 19 [iU]/L (Normal) Range: 0-32 [...] Glucose, Serum 102 mg/dL (Abnormal) Range: 65-99 7-Zho-017981:20 CBC WITH MANUAL DIFF Comments: PATIENT WAS FASTINGPERFORMED BY: [facility] Gjharg9504 [facility] [id number] Information: [id number] (19332) Immature Grans (Abs) 0.0 {x10E3/uL} (Normal) Range: [...] 3.77-5.28 WBC 7.4 {x10E3/uL} (Normal) Range: 3.4-10.8 5-Rgj-127389:20 LIPID PANEL (66784) Comments: PATIENT WAS FASTINGPERFORMED BY: PeopleAdmin [facility] [id number] LDL/HDL Ratio 2.0 {ratio_units} (Normal) Range: 0.0-3.2 LDL Cholesterol Calc 109 mg/dL (Abnormal) Range: 0-99 VLDL Cholesterol Hillary 35 mg/dL (Normal) Range: 5-40 HDL Cholesterol 54 mg/dL (Normal) Comments: According to ATP-III Guidelines, HDL-C >59 mg/dL is considered anegative risk factor for CHD. Triglycerides 175 mg/dL (Abnormal) Range: 0-149 Cholesterol, Total 198 mg/dL (Normal) Range: 100-199 6-Qxd-905534:20 TSH (24089) Comments: PATIENT WAS FASTINGPERFORMED BY: Netstorylin6370 [facility] [id number] TSH 2.720 {uIU/mL} (Normal) Range: 0.450-4.500 54-Kpb-428361:22 HgA1C , Office (27460) HgA1C , Office 6.0 % (Normal) Range: 4.6 - 7.1 73-Onu-995706:22 Blood Glucose , Office (12262) Blood Glucose , Office 249 (Normal) Comments: has eaten in last 2h 85-Mde-343339:20 CHEST, PA AND LATERAL Radiology Report See [...] Signed:Anibal Lan M.D.November 022012 at 8:14:34 AM [id number] Signed GP/GP If you are the referring physician and would like to consult with theradiologist who provided this interpretation, please contact Eliecer Bui M.D. at [phone]. If this radiologist is unavailable, youwill be directed to another radiologist to assist. If you are a patient with a question regarding this report, pleasecontactyour referring physician directly. Professional Interpretation Provided By: [employer], Phone , These documents contain legally protected [...] 11/22/12 0818 Sign by: Anibal Lan MD 33-Cxp-90291:19 VERÓNICA CULTURE-OTHER (36252) Comments: PATIENT NOT FASTINGPERFORMED BY: [facility] Jwfpib2251 [facility] [id number] Information: SRC:THRT [id number] Result 1 RRF (Normal) Comments: Routine respiratory duyen Upper Respiratory Culture Final report (Normal) 24-Hdm-221888:33 Rapid Strep Test, Office (44443) Rapid Strep Test, Office Negative (Normal) 1-Vdf-950390:50 Celiac Disease Comprehensive Comments: PERFORMED BY: PeopleAdmin [facility] [id number] Immunoglobulin A, Qn, 364 mg/dL (Normal) Range: [...] Potassium, Serum 4.0 mmol/L Comments: PERFORMED BY: [employer] Xstibe5699 [facility] [id number] 4:50 (Normal) Range: 3.5-5.2 8-Mqv-654455:30 CBCMD ANC 3.7 3/uL (Normal) Range: 2.0-7.7 [...] 4.2-5.4 WBC 7.0 {k/mm3} (Normal) Range: 4.4-11.0 4-Xtv-009269:30 CMP GAP 11 (Normal) Range: 5-15 CO2 [...] 7-18 GLU 93 mg/dL (Normal) Range: 70-110 8-Eud-988185:30 LIPID LDL 108 mg/dL (Normal) Range: 0-130 [...] Very High > or = 500 mg/dL 3-Gne-932842:30 MIACRE MIALB 5.8 mg/L (Normal) tMICROCREAT 9.5 {mg/g_CRE} (Normal) CREU 60.7 mg/dL (Normal) 4-Klp-491789:30 TSH 0.75 {uIU/mL} (Normal) Range: 0.358-3.74 :54 HgA1C , Office (12520) HgA1C , Office 5.5 % (Normal) Range: 4.6 - 7.1 :54 Blood Glucose , Office (24830) Blood Glucose , Office 116 (Normal) 82-Jpa-975024:26 URINE VERÓNICA CULTURE-SHARIFA COL Comments: PATIENT NOT FASTINGPERFORMED BY: [facility] Izeail1685 [facility] [id number] Information: SRC:UR [id number] COUNT (44065) Result 1 MUG (Normal) Comments: Mixed urogenital flora50,000-100,000 colony forming units per mL Urine Final report (Normal) Culture,Comprehensive 44-Jnp-689447:46 Urinalysis, Office (91817) UA - BILIRUBIN Small (Normal) UA - BLOOD Hemolyzed Small (Normal) UA - GLUCOSE Negative (Normal) UA - KETONES Small mg/dL (Normal) UA - LEUKOCYTE ESTERASE Moderate (Normal) UA - NITRITE Negative (Normal) UA - PH 6.0 (Normal) UA - PROTEIN Trace mg/dL (Normal) UA - SPECIFIC GRAVITY 1.025 (Normal) URINE UROBILINGN SHARIFA TIMED Normal mg/dL (Normal) 84-Tzs-104083:55 CHEST, PA AND LATERAL Radiology Report See [...] radiologist regarding this report, please call our [id number] line @ Dictated on 1518 by Isiah Lan MDranscribed on 11/23/11 161 by ITS IMPORTSign by Anibal Lan MD on 11/23/11 1611 Sign by: Anibal Lan MD 63-Yhj-31536:51 Urinalysis, Office (36507) UA - BILIRUBIN Negative (Normal) UA - BLOOD Hemolyzed Small (Normal) UA - GLUCOSE Negative (Normal) UA - KETONES Negative mg/dL (Normal) UA - LEUKOCYTE ESTERASE Large (Normal) UA - NITRITE Negative (Normal) UA - PH 7.0 (Normal) UA - PROTEIN Negative mg/dL (Normal) UA - SPECIFIC GRAVITY 1.020 (Normal) URINE UROBILINGN SHARIFA TIMED 2 mg/dL (Normal) :51 HgA1C , Office (37408) HgA1C , Office 6.2 % (Normal) Range: 4.6 - 7.1 :50 Blood Glucose , Office (49725) Blood Glucose , Office 119 (Normal) :55 Urinalysis, Office (62996) UA - BILIRUBIN Negative (Normal) UA - [...] Ultrasound evaluation of the right upper quadrant [facility] with real-time ultrasonography and static grayscale imaging. [...] Muscle) 13 {Units} (Normal) Comments: PERFORMED BY: [facility] [id number] :58 Antibody Range: 0-19 Comments: Negative 0 - 19 Weak positive 20 - 30 Moderate to strong positive >30 . Actin Antibodies are found in 52-85% of patients with autoimmune hepatitis or chronic active hepatitis and in 22% of patients with primary biliary cirrhosis. :58 Antinuclear Antibodies Direct Comments: PERFORMED BY: [facility] [id number] GAYATRI Direct Negative (Normal) :5 Ceruloplasmin 31.6 mg/dL (Normal) Comments: PERFORMED BY: [employer] [facility] [id number] 8 Range: 16.0-45.0 :5 Ferritin, Serum 440 ng/mL (Abnormal) Comments: PERFORMED BY: [facility] [id number] 8 Range: 13-150 :58 Hepatitis Panel (4) Comments: PERFORMED BY: [facility] [id number] Hep C Virus Ab 0.1 {s/co_ratio} (Normal) [...] (Normal) Hep A Ab, IgM Negative (Normal) 38-Qek-38295:58 Iron and TIBC Comments: PERFORMED BY: [employer] [facility] [id number] Iron Saturation 37 % (Normal) Range: 15-55 Iron, Serum 96 ug/dL (Normal) Range: 35-155 UIBC 163 ug/dL (Normal) Range: 150-375 Iron Bind.Cap.(TIBC) 259 ug/dL (Normal) Range: 250-450 :58 Platelet Count on Citrated Comments: PERFORMED BY: People[employer] [facility] [id number] Bld Plt Count, Citrated Bld 216 {X10E3/uL} Range: 140-415 (Normal) 11-Jun-2011 Written Authorization WAR (Normal) Comments: PERFORMED BY: PeopleAdmin [facility] [id number] 9:58 Comments: Written Authorization Received.Authorization received from [facility] [id number] by Elina Swain :30 HgA1C , Office (92882) HgA1C , Office 6.7 % (Normal) Range: 4.6 - 7.1 :30 Blood Glucose , Office (19397) Blood Glucose , Office 159 (Normal) :15 METABOLIC PANEL, COMPREHENSIVE Comments: PATIENT WAS FASTINGPERFORMED BY: Netstorylin6370 [facility] [id number] (07814) ALT (SGPT) 51 [iU]/L (Abnormal) Range: 0-40 [...] mg/dL (Abnormal) Range: 65-99 :15 LIPID PANEL (43804) Comments: PATIENT WAS FASTINGPERFORMED BY: [employer]6370 [facility]elliumNov[facility] [id number] LDL/HDL Ratio 1.8 {ratio_units} (Normal) Range: 0.0-3.2 [...] MANUAL DIFF Comments: PATIENT WAS FASTINGPERFORMED BY: [employer]70 [facility] [id number] Information: [id number] (53627) Immature Grans (Abs) 0.0 {x10E3/uL} (Normal) Range: [...] 3.80-5.10 WBC 8.3 {x10E3/uL} (Normal) Range: 4.0-10.5 25-Qbr-421710:26 Hepatic Function Panel (7) Comments: PERFORMED BY: [facility]Jeff[facility]Wfufwe6868 [facility] [id number] ALT (SGPT) 63 [iU]/L (Abnormal) Range: 0-40 Alkaline Phosphatase, S 63 [iU]/L (Normal) Range: 25-165 AST (SGOT) 53 [iU]/L (Abnormal) Range: 0-40 Bilirubin, Direct 0.13 mg/dL (Normal) Range: 0.00-0.40 Bilirubin, Total 0.4 mg/dL (Normal) Range: 0.0-1.2 Albumin, Serum 4.5 g/dL (Normal) Range: 3.6-4.8 Protein, Total, Serum 7.8 g/dL (Normal) Range: 6.0-8.5 05-Aju-478793:26 Hepatitis Panel (4) Comments: PERFORMED BY: [facility] Opcvwg3180 [facility] [id number] Hep C Virus Ab <0.1 {s/co_ratio} (Normal) [...] (Normal) Hep A Ab, IgM Negative (Normal) 5-Cnf-610416:04 LIVER D BILI 0.11 mg/dL (Normal) Range: 0.00-0.30 T BILI 0.30 mg/dL (Normal) Range: 0.00-1.00 ALK P 57 U/L (Normal) Range: 50-136 ALT 68 U/L (Normal) Range: 12-78 ALB 4.0 g/dL (Normal) Range: 3.4-5.0 AST 53 U/L (Abnormal) Range: 15-37 T PROT 8.0 g/dL (Normal) Range: 6.4-8.2 :59 HgA1C , Office (61561) HgA1C , Office 6.6 % (Normal) Range: 4.6 - 7.1 :59 Blood Glucose , Office (55654) Blood Glucose , Office 124 (Normal) :17 HgA1C , Office (82757) HgA1C , Office 6.4 % (Normal) Range: 4.6 - 7.1 02-Bgf-39801:17 Blood Glucose , Office (75667) Blood Glucose , Office 141 (Normal) 71-Wev-662792:17 Hemoglobin Glyclated (HGB A1C) Comments: PATIENT WAS FASTINGPERFORMED BY: [facility]6370 [facility] [id number] (49957) Hemoglobin A1c 6.0 % (Abnormal) Range: 4.8-5.6 Comments: Increased risk for diabetes: 5.7 - 6.4 Diabetes: >6.4 Glycemic control for adults with diabetes: <7.0 11-Zdn-597647:17 MICROALBUMIN: CREATININE RATIO Comments: PATIENT WAS FASTINGPERFORMED BY: [facility]6370 [facility] [id number] (02018) AND (00114) Microalb/Creat Ratio 2.9 {mg/g_creat} (Normal) Range: 0.0-30.0 Creatinine, Urine 49.0 mg/dL (Normal) Range: 15.0-278.0 Microalbumin, Urine 1.4 ug/mL (Normal) Range: 0.0-17.0 [id number] METABOLIC PANEL, COMPREHENSIVE Comments: PATIENT WAS FASTINGPERFORMED BY: [facility] GroupHoly [facility] HospitalJqxzwn[facility] [id number] ([id number]) Alkaline Phosphatase, S 61 [iU]/L (Normal) Range: [...] Glucose, Serum 116 mg/dL (Abnormal) Range: 65-99 [id number] LIPID PANEL ([id number]) Comments: PATIENT WAS FASTINGPERFORMED BY: [facility] [id number] [facility] [id number] LDL/HDL Ratio 2.2 {ratio_units} (Normal) Range: 0.0-3.2 HDL Cholesterol 50 mg/dL (Normal) Comments: According to ATP-III Guidelines, HDL-C >59 mg/dL is considered anegative risk factor for CHD. LDL Cholesterol Calc 109 mg/dL (Abnormal) Range: 0-99 VLDL Cholesterol Hillary 56 mg/dL (Abnormal) Range: 5-40 Cholesterol, Total 215 mg/dL (Abnormal) Range: 100-199 Triglycerides 282 mg/dL (Abnormal) Range: 0-149 :17 CBC WITH MANUAL DIFF (64678) Comments: PATIENT WAS FASTINGPERFORMED BY: EMIL [employer] [facility] [id number] Immature Grans (Abs) 0.0 {x10E3/uL} (Normal) Range: [...] 3.80-5.10 WBC 8.6 {x10E3/uL} (Normal) Range: 4.0-10.5 18-Yii-500982:57 Folic Acid Serum (62421) Comments: PATIENT NOT FASTINGPERFORMED BY: [employer] [place] [id number] Folate (Folic Acid), Serum 12.6 ng/mL (Normal) Comments: Indeterminate: 2.2 - 3.0Deficient: <2.2 35-Tod-146844:57 Vitamin B-12 (cyanocobalamin) Comments: PATIENT NOT FASTINGPERFORMED BY: [facility]6370 [facility] [id number] ([id number]) Vitamin B12 551 pg/mL (Normal) Range: 211-946 21-Ghf-115690:57 CBC with manual diff Comments: PATIENT NOT FASTINGPERFORMED BY: [facility]6370 [facility] [id number] Information: [id number] ([id number]) Baso (Absolute) 0.1 {x10E3/uL} (Normal) Range: 0.0-0.2 [...] 3.80-5.10 WBC 9.4 {x10E3/uL} (Normal) Range: 4.0-10.5 82-Mny-303361:57 Metabolic Panel, Comprehensive Comments: PATIENT NOT FASTINGPERFORMED BY: [facility]Oawtfb3072 [facility] [id number] ([id number]) ALT (SGPT) 18 [iU]/L (Normal) Range: 0-40 [...] mg/dL (Abnormal) Range: 65-99 :57 DRUG ASSAY-LITHIUM (61739) Comments: PATIENT NOT FASTINGPERFORMED BY: [facility]6370 [facility] [id number] [place] ([place]), Serum 1.0 mmol/L (Normal) Range: 0.6-1.4 Comments: Detection Limit = 0.1<0.1 indicates None Detected :57 T4, FREE (THYROXINE) (59636) Comments: PATIENT NOT FASTINGPERFORMED BY: [place] 0241970 [facility] [id number] T4,Free(Direct) 1.17 ng/dL (Normal) Range: 0.82-1.77 :57 T3, FREE (TRIDOTHYRONINE) (53236) Comments: PATIENT NOT FASTINGPERFORMED BY: [facility]6370 [facility] [id number] Triiodothyronine,Free,Serum 2.1 pg/mL (Normal) Range: 2.0-4.4 :57 TSH (66160) Comments: PATIENT NOT FASTINGPERFORMED BY: [facility]6370 [facility] [id number] TSH 4.080 {uIU/mL} (Normal) Range: 0.450-4.500 :43 HgA1C , Office (63827) HgA1C , Office 5.3 % (Normal) Range: 4.6 - 7.1 :43 Blood Glucose , Office (89614) Blood Glucose , Office 125 (Normal) :4 [...] 136-145 GLU 84 mg/dL (Normal) Range: 70-110 89-Pkh-122357:42 LI 0.60 mmol/L (Normal) Comments: Therapeutic Range: 0.60 - 1.20 94-Fih-191701:58 Thin prep Pap Comments: Source.............Cervical;EndocervicalNo. of containers..01 CYTYC Thin Prep VialPATIENT NOT FASTINGPERFORMED BY: Lab[address] [id number] Information: [id number] ([id number]) Note: PAPSMR (Normal) Comments: The Pap smear [...] atrophy.V 72.31 ; Routine gynecological examinationRita Gonzalez [employer] Hel[employer] (ASCP) 10-Lja-614242:00 TSH (40166) Comments: PATIENT NOT FASTINGPERFORMED BY: [facility]6370 [facility] [id number] TSH 3.440 {uIU/mL} (Normal) Range: 0.450-4.500 63-Mjc-528485:00 CBC (Auto) (40453) Comments: PATIENT NOT FASTINGPERFORMED BY: [facility]6370 [facility] [id number] Information: [id number] Platelets 258 {x10E3/uL} (Normal) Range: 140-415 RDW 13.6 % (Normal) Range: 11.7-15.0 Hematocrit 43.5 % (Normal) Range: 34.0-44.0 MCH 31.6 pg (Normal) Range: 27.0-34.0 MCHC 33.6 g/dL (Normal) Range: 32.0-36.0 MCV 94 fL (Normal) Range: 80-98 Hemoglobin 14.6 g/dL (Normal) Range: 11.5-15.0 RBC 4.61 {x10E6/uL} (Normal) Range: 3.80-5.10 WBC 8.6 {x10E3/uL} (Normal) Range: 4.0-10.5 11-Kna-889590:00 Metabolic Panel, Basic Comments: PATIENT NOT FASTINGPERFORMED BY: [facility]Yookqx7252 [facility] [id number] ([id number]) Calcium, Serum 9.1 mg/dL (Normal) Range: 8.6-10.2 [...] Glucose, Serum 111 mg/dL (Abnormal) Range: 65-99 74-Aya-791905:00 DRUG ASSAY-LITHIUM (47904) Comments: all these labs standing order prn; PATIENT NOT FASTINGPERFORMED BY: [facility]Pdzcpt4287 [facility] [id number] [place] ([place]), Serum 0.9 mmol/L (Normal) Range: 0.6-1.4 Comments: Detection Limit = 0.1<0.1 indicates None Detected 14-Qii-94159:16 METABOLIC PANEL, COMPREHENSIVE Comments: PATIENT NOT FASTINGPERFORMED BY: [facility]Ciccoz0438 [place] [facility] [id number] ([id number]) A/G Ratio 1.3 (Normal) Range: 1.1-2.5 Alkaline [...] Glucose, Serum 207 mg/dL (Abnormal) Range: 65-99 34-Hwk-56822:16 CBC WITH MANUAL DIFF Comments: PATIENT NOT FASTINGPERFORMED BY: [facility]Akwctt8948 [facility] [id number] Information: [id number] (50017) Baso (Absolute) 0.1 {x10E3/uL} (Normal) Range: 0.0-0.2 [...] CREATININE RATIO Comments: PATIENT NOT FASTINGPERFORMED BY: [facility]6370 [facility] [id number] ([id number]) AND (42876) Microalb/Creat Ratio 6.2 {mg/g_creat} (Normal) Range: 0.0-30.0 Microalbumin, Urine 2.5 ug/mL (Normal) Range: 0.0-17.0 Creatinine, Urine 40.1 mg/dL (Normal) Range: 15.0-278.0 :38 HgA1C , Office (46557) HgA1C , Office 6.6 % (Normal) Range: 4.6 - 7.1 :38 Blood Glucose , Office (19336) Blood Glucose , Office 214 (Normal) 05-Ygx-108173:05 URINE VERÓNICA CULTURE-IDENTIFICATN Comments: PATIENT NOT FASTINGPERFORMED BY: [facility]6370 [facility] [id number] Information: [id number] ([id number]) Antimicrobial MIHEAD (Normal) Comments: S = Susceptible; [...] mL (Normal) Urine Final report (Normal) Culture,Comprehensive 23-Whw-660829:23 CHEST, PA AND LATERAL (MT) Radiology Report See Note (Normal) Comments: Exam Number: [id number] CLINICAL:58-year-old female with cough, pain and shortness [...] :23 B.pertussisB.parapertussis PCR Comments: PERFORMED BY: ELIESER ZaaePbu6376 [facility] [id number] Bordetella parapertussis DNA Negative (Normal) Comments: .This test was developed and its performance characteristics determinedby [facility] [employer]. It has not been cleared or approved by theU.S. Food and Drug Administration. The FDA has determined that s uchclearance or approval is not necessary. This test is used for clinicalpurposes. It should not be regarded as investigational or research. Bordetella pertussis DNA Negative (Normal) :50 HgA1C , Office (65615) HgA1C , Office 5.5 % (Normal) Range: 4.6 - 7.1 :50 Blood Glucose , Office (45672) Blood Glucose , Office 90 (Normal) :33 HgA1C , Office (89578) HgA1C , Office 5.6 % (Normal) Range: 4.6 - 7.1 :41 HgA1C , Office (36453) HgA1C , Office 5.5 % (Normal) Range: 4.6 - 7.1 Comments: cyril :41 Blood Glucose , Office (20118) Comments: 89 Blood Glucose , Office 89 [...] (Normal) Range: 0.34-4.82 :42 HgA1C , Office (16944) HgA1C , Office 5.4 % (Normal) Range: 4.6 - 7.1 :42 Blood Glucose , Office (66730) Blood Glucose , Office 103 (Normal) :20 [...] T PROT 8.0 g/dL (Normal) Range: 6.4-8.2 16-Vve-882165:20 LIPID CHOL 148 mg/dL (Normal) Comments: <200 [...] mg/dL VLDL 30 mg/dL (Normal) Range: 5-40 20-Jfv-130769:20 ROUTINE UA BILIRUBIN URINE SeeNote (Normal) Comments: [...] 0.2 EU/dl (Normal) Range: 0.2 - 1.0 69-Ejg-44332:06 THYROID (HP) Radiology Report See Note (Normal) Comments: Exam Number: [id number] THYROID ULTRASOUND HISTORYGoiter. There is borderline increase [...] 03, 2007. Reported By: PETRONA REGALADO M.D. 28-Hig-93979:20 MAMM, UILAT DIAG DIGITAL & CAD Radiology Report See Note (Normal) Comments: Exam Number: [id number] UNILATERAL LEFT DIAGNOSTIC MAMMOGRAPHY CLINICAL STATEMENTLeft breast [...] The mammogramswere also examined with computer-aided detection software([employer].). Reported By: REID KRUEGER M.D. 2-Kut-605226: TSH 0.94 {uIU/mL} Range: 0.34-4.82 50 (Normal) :06 MAMM, BILAT SCRN DIGITAL & CAD Radiology Report See Note (Normal) Comments: Exam Number: [id number] MAMMOGRAM, BILATERAL SCREENING DIGITAL AND CAD HISTORYRoutine [...] was rendered by a radiologist certified under [facility] Quality Standards Act of 1992 (MQSA). The mammograms werealso examined with computer-aided detection software ([employer] Reported By: PETRONA REGALADO M.D. :05 THYROID (HP) Radiology Report See Note (Normal) Comments: Exam Number: [id number] THYROID ULTRASOUND HISTORYGoiter. High resolution real time [...] 6 months. Reported By: PETRONA REGALADO M.D. 45-Ptd-669996:22 HgA1C , Office (25917) HgA1C , Office 5.9 % (Normal) Range: 4.6 - 7.1 85-Dcp-935944:22 Blood Glucose , Office (31177) Blood Glucose , Office 88 (Normal) Plan [...] II, controlled Stress incontinence, female : Reviewed Risk Compliance Manager Letter Indication: Stress incontinence, female Diabetes mellitus [...] acute Planned Observations VITAMIN B12 AND FOLATES (04756)Indication: Neuropathic pain On: :08 Request Blood Glucose , Office (64916)Indication: Diabetes mellitus type II, controlled On: 88-Wyq-23153:04 Request LIPID PANEL (69266)Indication: Neuropathic pain On: :54 Request Blood Glucose , Office (54049)Indication: Diabetes mellitus type II, controlled On: 02-Nov-20178:55 Request D-Dimer (84870)Indication: Shortness of breath On: 16-Abh-643027:19 Request Metabolic Panel, Comprehensive (09381)Indication: Diabetes mellitus type II, controlled On: 42-Qym-364060:19 Request Comments: Nov 2017 LIPID PANEL (77939)Indication: Diabetes mellitus type II, controlled On: 32-Vuw-780186:19 Request Comments: Nov 2017 URINALYSIS (50781)Indication: Diabetes mellitus type II, controlled On: 87-Tzs-864450:19 Request Comments: Nov 2017 TSH (19898)Indication: Diabetes mellitus type II, controlled On: 55-Bhv-695136:18 Request Comments: Nov 2017 CBC, Platelets & Auto Diff (30586)Indication: Diabetes mellitus type II, controlled On: 14-Und-682429:18 Request Comments: Nov 2017 MICROALBUMIN: CREATININE RATIO (97703) AND (49988)Indication: Diabetes mellitus type II, controlled On: 47-Jiz-138812:18 Request Comments: Nov 2017 HgA1C , Office (25379)Indication: Diabetes mellitus type II, controlled On: 03-Jhw-377668:44 Request Anaerobic & Aerobic Culture (24913)Indication: Mouth pain On: 0-Ghn-368715:11 Request Metabolic Panel, Comprehensive (77030)Indication: Chronic kidney disease (CKD), stage I On: 08-Svm-465159:50 Request Comments: 2 weeks Metabolic Panel, Comprehensive (66041)Indication: Diabetes mellitus type II, controlled On: 18-Zui-126580:56 Request Comments: today URINALYSIS (79184)Indication: Chronic kidney disease (CKD), stage I On: 62-Fxl-857699:52 Request Comments: Jul 2017 MICROALBUMIN: CREATININE RATIO (93176) AND (63188)Indication: Chronic kidney disease (CKD), stage I On: 19-Icy-481199:52 Request Comments: jul 2017 Lipid Panel (54379)Indication: Hypertension (Renamed from BP (high blood pressure)) On: 70-Eih-231091:52 Request Comments: Jul 2017 TSH (72979)Indication: Leg weakness On: 50-Fyu-053404:52 Request Comments: Jul 2017 CBC, Platelets & Auto Diff (28543)Indication: Leg weakness On: 71-Ndh-996825:52 Request Comments: jul 2017 METABOLIC PANEL, COMPREHENSIVE (87738)Indication: Weakness On: 60-Tdc-855770:55 Request METABOLIC PANEL, COMPREHENSIVE (17445)Indication: Hypokalemia On: :43 Request Comments: STAT SED RATE ERYTHROCYTE (23709)Indication: Weakness On: 84-Ikj-364697:29 Request TSH (THYROID STIMULATING HORMONE) (20737)Indication: Unspecified abnormal involuntary movements On: :17 Request METABOLIC PANEL, COMPREHENSIVE (05708)Indication: Unspecified abnormal involuntary movements On: :17 Request CBC, PLATELETS & AUT DIFF (63515)Indication: Unspecified abnormal involuntary movements On: 54-Ipv-501678:17 Request URINE VERÓNICA CULTURE-IDENTIFICATN (62390)Indication: Weakness On: 36-Gfy-431507:07 Request Blood Glucose , Office (54052)Indication: Unspecified abnormal involuntary movements On: 29-Cdn-06676:59 Request VITAMIN B12 AND FOLATES (49837)Indication: Unspecified abnormal involuntary movements On: 52-Zlx-29810:57 Request SPEP (08348)Indication: Elevated serum creatinine On: 79-Etn-870314:31 Request CALCIFIDIOL (33629) VIT D 25Indication: Vitamin D deficiency (Renamed from Avitaminosis D) On: :27 Request TSH (51304)Indication: Hypothyroidism On: :27 Request MICROALBUMIN: CREATININE RATIO (16050) AND (29270)Indication: Diabetes mellitus type II, controlled On: :27 Request METABOLIC PANEL, COMPREHENSIVE (65247)Indication: Diabetes mellitus type II, controlled On: :27 Request LIPID PANEL (79494)Indication: Diabetes mellitus type II, controlled On: :27 Request CBC with auto diff (06271)Indication: Diabetes mellitus type II, controlled On: :27 Request CALCIFIDIOL (36579) VIT D 25Indication: Vitamin D deficiency (Renamed from Avitaminosis D) On: 91-Lbx-177804:15 Request Comments: in three months (approximately) METABOLIC PANEL, COMPREHENSIVE (29569)Indication: Diabetes mellitus type II, controlled On: 68-Ppb-593286:15 Request Comments: in three months (approximately) SODIUM URINE (60755)Indication: Hyponatremia On: :51 Request OSMOLALITY URINE (64983)Indication: Hyponatremia On: :50 Request OSMOLALITY BLOOD (73939)Indication: Hyponatremia On: :50 Request ASSAY, TROPONIN, QUANTITATIVE (aka Troponin I) (68970)Indication: Chest pain On: :40 Request Comments: stat D-Dimer (18823)Indication: Chest pain On: 58-Srf-044194:40 Request Comments: stat TSH (65418)Indication: Chest pain On: :40 Request CBC WITH MANUAL DIFF (47166)Indication: Chest pain On: :40 Request METABOLIC PANEL, COMPREHENSIVE (73972)Indication: Chest pain On: 05-Wwq-878561:40 Request URINE VERÓNICA CULTURE (SHARIFA COL COUNT) (44776)Indication: Dysuria (Renamed from Difficult or painful urination) On: 73-Hep-756632:24 Request Metabolic Panel, Comprehensive (08785)Indication: Hypertension (Renamed from BP (high blood pressure)) On: 18-Pim-147140:56 Request Metabolic Panel, Basic (12123)Indication: Elevated LFTs On: 45-Slj-659477:16 Request 24 hour urine for Protein (79470)Indication: Elevated serum creatinine On: 57-Zti-403411:40 Request Comments: recheck in one week CREATININE CLEARANCE (17439)Indication: Elevated serum creatinine On: 46-Rjs-819435:39 Request Comments: recheck in one week Blood Glucose , Office (72630)Indication: Diabetes mellitus type II, controlled On: 19-Txr-35627:29 Request METABOLIC PANEL, COMPREHENSIVE (41206)Indication: Hypokalemia (Renamed from Decreased potassium in the blood) On: 77-Vlf-428946:52 Request MICROALBUMIN: CREATININE RATIO (02338) AND (83393)Indication: Diabetes mellitus type II, controlled On: 88-Tnf-585127:14 Request FLURESCNT ANTIB SCRN EA (23141) celiac profileIndication: Irritable bowel syndrome (Renamed from Functional bowel disease) On: 8-Wnr-718312:58 Request IMMUNOASSAY, ANALYTE (NON-INFECT) (14322) celiac profileIndication: Irritable bowel syndrome (Renamed from Functional bowel disease) On: 1-Qdv-650159:58 Request IGA/IGD/IGG/IGM-EACH (32884) celiac profileIndication: Irritable bowel syndrome (Renamed from Functional bowel disease) On: 5-Dem-996326:58 Request Potassium Serum (18212)Indication: Hypokalemia (Renamed from Decreased potassium in the blood) On: 4-Mje-193102:58 Request Celiac Disease Comphrehensive Profile (56727)Indication: Irritable bowel syndrome (Renamed from Functional bowel disease) On: 04-Nov-20129:56 Request METABOLIC PANEL, COMPREHENSIVE (06640)Indication: Diabetes mellitus type II, controlled On: 08-Mwi-614033:32 Request LIPID PANEL (10701)Indication: Diabetes mellitus type II, controlled On: 67-Lnq-023707:32 Request CBC WITH MANUAL DIFF (90947)Indication: Diabetes mellitus type II, controlled On: 13-Rju-162298:32 Request MICROALBUMIN: CREATININE RATIO (96500) AND (99859)Indication: Diabetes mellitus type II, controlled On: 92-Msc-100470:32 Request TSH (65048)Indication: Hypothyroidism On: 89-Rrg-710226:32 Request TSH (11528)Indication: Hypothyroidism On: 04-Ook-919281:26 Request MICROALBUMIN: CREATININE RATIO (54664) AND (70329)Indication: Diabetes mellitus type II, controlled On: 63-Cwc-618141:26 Request METABOLIC PANEL, COMPREHENSIVE (84426)Indication: Diabetes mellitus type II, controlled On: 65-Xob-738545: Request LIPID PANEL (03207)Indication: Diabetes mellitus type II, controlled On: :26 Request CBC WITH MANUAL DIFF (72765)Indication: Diabetes mellitus type II, controlled On: 53-Uxm-118707:26 Request URINE VERÓNICA CULTURE-SHARIFA COL COUNT (53518)Indication: Dysuria (Renamed from Difficult or painful urination) On: 41-Zpu-582173:15 Request URINE VERÓNICA CULTURE-SHARIFA COL COUNT (60382)Indication: Dysuria (Renamed from Difficult or painful urination) On: 91-Ljw-582712:55 Request Ferritin (92868)Indication: Elevated LFTs On: 63-Mgg-053458:50 Request Comments: repeat now per Dr. Cabral with iron level Iron Binding Capacity (TIBC) (45513)Indication: Elevated LFTs On: :50 Request Iron (12446)Indication: Elevated LFTs On: :49 Request CBC (Auto) (87570)Indication: Thrombocytopenia, unspecified On: 40-Wry-493111: Request Comments: nonclumping tube HEPATITIS PANEL (07780)Indication: Elevated LFTs On: 76-Zij-973448: Request FERRITIN (18125)Indication: Elevated LFTs On: 09-Dsx-331791:00 Request CERULOPLASMIN (49697)Indication: Elevated LFTs On: 68-Cea-767563:00 Request ASM (ANTI SMOOTH MUSCLE ANTIBODY) (69565)Indication: Elevated LFTs On: 53-Wej-427109:00 Request GAYATRI (ANTINUCLEAR ANTIBODY) (48015)Indication: Elevated LFTs On: 79-Lnz-788555:00 Request HEPATITIS PANEL (49130)Indication: Elevated LFTs On: :01 Request TSH (83548)Indication: Hypothyroidism On: 67-Eeb-091665:16 Request LIPID PANEL (99275)Indication: Diabetes mellitus type II, controlled On: 52-Mbb-013234:15 Request DRUG ASSAY-LITHIUM (36084)Indication: Bipolar affective disorder, mixed On: 40-Aau-095839:14 Request Metabolic Panel, Basic (65121)Indication: Bipolar affective disorder, mixed On: 63-Bjd-018046:13 Request Metabolic Panel, Basic (98854)Indication: Bipolar affective disorder, mixed On: 98-Inu-775443:22 Request DRUG ASSAY-LITHIUM (33185)Indication: Bipolar affective disorder, mixed On: 41-Uwa-232305:22 Request Comments: 2 months Urinalysis, Office (93770)Indication: Urinary frequency On: 74-Nvl-851660:27 Request Comments: done pms HEPATIC FUNCTION PANEL (81647)Indication: Other and unspecified hyperlipidemia On: 6-Ovc-169645:45 Request Lipid Panel (06369)Indication: Other and unspecified hyperlipidemia On: 2-Tks-357498:45 Request Lipid Panel (51939)Indication: Other and unspecified hyperlipidemia On: 90-Iex-751229:17 Request CBC, Platelets & Auto Diff (46253)Indication: Other and unspecified hyperlipidemia On: :17 Request Metabolic Panel, Comprehensive (92111)Indication: Other and unspecified hyperlipidemia On: :17 Request TSH (39681)Indication: Hypothyroidism On: :15 Request Metabolic Panel, Basic (80910)Indication: Other and unspecified hyperlipidemia On: :55 Request Lipid Panel (98296)Indication: Other and unspecified hyperlipidemia On: :55 Request Comments: in three months (approximately) CBC (Auto) (67798)Indication: Intestinal disaccharidase deficiencies and disaccharide malabsorption On: :56 Request Metabolic Panel, Comprehensive (07499)Indication: Intestinal disaccharidase deficiencies and disaccharide malabsorption On: :56 Request Lipid Panel (86875)Indication: Intestinal disaccharidase deficiencies and disaccharide malabsorption On: :56 Request Comments: in three months (approximately) MICROALBUMIN 24 HOUR OR RANDOM On: 52-Hfp-918367:04 Request (57865) CREATININE CLEARANCE (92116) On: 69-Nld-782739:03 Request CBC (Auto) (18245)Indication: Unspecified disorder of kidney and ureter On: :53 Request Lipid Panel (59094)Indication: Unspecified disorder of kidney and ureter On: :53 Request Metabolic Panel, Comprehensive (31940)Indication: Unspecified disorder of kidney and ureter On: :53 Request TSH (08625)Indication: Hypothyroidism On: :53 Request TSH (77350)Indication: Hypothyroidism On: 03-Ndk-147699:18 Request URINALYSIS (92750)Indication: Intestinal disaccharidase deficiencies and disaccharide malabsorption On: 94-Qyf-820663:43 Request CBC (Auto) (90452)Indication: Intestinal disaccharidase deficiencies and disaccharide malabsorption On: 89-Nlo-893929:43 Request Lipid Panel (73783)Indication: Intestinal disaccharidase deficiencies and disaccharide malabsorption On: :43 Request Metabolic Panel, Comprehensive (47014)Indication: Intestinal disaccharidase deficiencies and disaccharide malabsorption On: 91-Jny-217811:43 Request Planned Procedures COMPUTED TOMOGRAPHY ANGIOGRAPHY OF On: 01-Aug-2018 Intent CHEST FOR PULMONARY EMBOLISM Comments: stat for PE (58300)By: Eli Bowman CNP, CNP, Mary E Echo CompleteBy: Eli Bowman CNP On: 29-Jul-2018 Intent Eli Bowman CNP Spirometry (14152)By: Colby WATTERS, On: 29-Jul-2018 Intent Eli Mcelroy CNP Holter Monitor 24 hrsBy: Colby WATTERS, On: 29-Jul-2018 Intent Eli Mcelroy CNP CHEST XRAY, PA & LATERAL (32736)By: On: 29-Jul-2018 Intent Eli Bowman CNP, CNP, Mary E ELECTROCARDIOGRAM, COMPLETE (ECG) On: 29-Jul-2018 Intent (82732)By: Eli Bowman CNP Comments: sinus rhythm Eli WATTERS Aerosol Treatment (79951)By: Colby On: 29-Jul-2018 Intent Eli WATTERS CNP, Mary E Flu Vaccine (Quadrivalent) 66880Qk: On: 22-Jul-2018 Intent Tejal Ceron Comments: Lot #[id number]-L dltd, IMDose prefilled syringegiven by: Rosalie Ceron MA Toradol Injection, 30 mg (J1885)By: On: 09-May-2018 Intent Nunu Root Comments: lot [id number] 12/2029mgIMleft gmas, SAUTE CHEF SCREENING DIGITAL TOMOSYNTHESIS OF On: 18-Apr-2018 Intent BREAST (47758)By: Eli Bowman CNP E Eli Bowman CNP DEXA SCAN AXIAL SKELETON (54520)By: On: 18-Apr-2018 Intent Eli Bowman CNP E Colby WATTERS, Eli Lubin Toradol Injection, 30 mg (J1885)By: On: 22-Mar-2018 Intent Nunu Root Comments: toradol 30mg injection lot:77-880-RTqfv:10/2019R GMpt tolerated wellMSMITH,SAUTE CHEF COMPLETE ELECTROMYOGRAPHY (EMG) WITH On: 22-Mar-2018 Intent NERVE CONDUCTION STUDIES OF EACH Comments: Bilateral lower legs EXTREMITY (70645)By: Nunu Root EMGBy: Eli Bwoman CNP, CNP, On: 03-Jan-2018 Intent Eli Lubin Comments: both legs Nerve ConductionBy: Eli Bowman CNP On: 03-Jan-2018 Intent E Eli Bowman CNP Comments: both legs Toradol Injection, 30 mg (J1885)By: On: 23-Dec-2017 Intent Mayda Dobbins DO Comments: toradol 30mg injectionlot: 16-360-NMwbi: 06/2018L GMpt tolerated wellAD SAUTE CHEF Spirometry (02400)By: Dk, On: 16-Nov-2017 Intent Nunu Comments: Normal spirometry Aerosol Treatment (46131)By: Shilpi On: 30-Aug-2017 Intent Mayda COLEMAN Comments: less noise with forced exp Solu- Medrol Injection, 125mg On: 30-Aug-2017 Intent (J2930)By: Mayda Dobbins DO Comments: solumedrol 125mg injectionlot: [id number]: 12/2019R GMpt tolerated wellAD SAUTE CHEF Radiology - Chest- PA and LatBy: On: 30-Aug-2017 Intent Mayda Dobbins DO Solu- Medrol Injection, 125mg On: 26-Aug-2017 Intent (J2930)By: Mayda Dobbins DO Comments: solumedrol 125mg injectionlot: [id number]: 12/2019L GMpt tolerated wellAD SAUTE CHEF Aerosol Treatment (82876)By: Shilpi On: 26-Aug-2017 Mayda Bailey DO Comments: [place] Spirometry (95684)By: Shilpi COLEMAN On: 26-Aug-2017 Intent Mayda Comments: mild obstruction Radiology - Shoulder - RightBy: On: 20-Jul-2017 Intent Edita Cabral MD Radiology - Lumbar SpineBy: Misha On: 20-Jul-2017 Intent Edita PROCTOR DRAIN/INJECT MAJOR JOINT OR BURSA On: 13-Apr-2017 Intent (98074)By: Eli Bowman CNP Comments: injevted left knee today JANENE, Eli Lubin PHYSICAL THERAPY ([id number])By: Dk, On: 08-Apr-2017 Intent [facility] - Knee - RightBy: Dk, On: 08-Apr-2017 Intent [facility] - Knee - LeftBy: Dk, On: 08-Apr-2017 Intent [facility] ATTENDED SLEEP STUDY ([id number])By: On: 18-Jan-2017 Intent Eli Bowman CNP, CNP, Mary E DEXA SCAN AXIAL SKELETON ([id number])By: On: 24-Nov-2016 Intent Donnie Gonzales MD MAMMOGRAM, SCREENING, BOTH BREAST On: 24-Nov-2016 Intent ([id number])By: Donnie Gonzales MD US KIDNEY COMPLETE ([id number])By: Janet On: 16-Jul-2016 Intent Donnie PROCTOR EsophagramBy: Edita Cabral MD On: 06-Feb-2016 Intent Comments: 12mm tablet X-RAY EXAM OF ESOPHAGUS ([id number]) - On: 04-Feb-2016 Intent Barium Swallow with 12mm tabletBy: Donnie Gonzales MD Carotid DopplerBy: Edita Cabral MD On: 16-Sep-2015 Intent Oz TD VACCINE ADULT ([id number])By: Misha On: 16-Sep-2015 Intent Edita PROCTOR TDAP VACCINE >7 IM ([id number])By: On: 16-Sep-2015 Intent Edita Cabral MD Pap Smear, Medicare ([id number])By: On: 16-Sep-2015 Intent Edita Cabral MD MAMMOGRAM, SCREENING, BOTH BREAST On: 16-Sep-2015 Intent ([id number])By: Edita Cabral MD Renal Artery DopplerBy: Misha PROCTOR, On: 04-Feb-2015 Intent Edita Clinton Ultrasound - RenalBy: Misha PROCTOR, On: 04-Feb-2015 Intent Edita Clinton DEXA SCAN AXIAL SKELETON ([id number])By: On: 17-Jan-2015 Intent Edita Cabral MD Comments: postmenapausal MAMMOGRAM, SCREENING, BOTH BREAST On: 17-Jan-2015 Intent ([id number])By: Edita Cabral MD Radiology - Shoulder - [...] with back pain- stat call results Spirometry ([id number])By: Thee COLEMAN, On: 30-Apr-2014 Intent Erna Schaefer Comments: good effort and curve normal ELECTROCARDIOGRAM, COMPLETE (ECG) On: 30-Apr-2014 Intent ([id number])By: Erna Kingston DO Eprescribed prescriptions ([id number])By: On: 12-Feb-2014 Intent Edita Cabral MD SPECIMEN HANDLING/TRANSPORT On: 15-Jan-2014 Intent ([id number])By: Eli Bowman CNP, CNP, Mary E Eprescribed prescriptions ([id number])By: On: 11-Oct-2013 Intent Nunu Stephens LPN ADMINISTRATION OF INFLUENZA VIRUS On: 24-Jul-2013 Intent VACCINE ([id number])By: Edita Cabral MD FLU VAC, SPLIT, >3 YEARS, INTRAMUSC On: 24-Jul-2013 Intent ([id number])By: Edita Cabral MD Echo CompleteBy: Edita Cabral MD On: 27-Jun-2013 Intent Carotid DopplerBy: Edita Cabral MD On: 27-Jun-2013 Intent Oz Eprescribed prescriptions ([id number])By: On: 27-Jun-2013 Intent Teressa Molina LPN MRI - BrainBy: Eli Bowman CNP On: 16-Jun-2013 Intent Eli Bowman CNP SPECIMEN HANDLING/TRANSPORT On: 16-May-2013 Intent ([id number])By: Sue Ewing LPN Holter Monitor 24 hrsBy: Colby WATTERS, On: 28-Apr-2013 Intent Eli Mcelroy CNP ELECTROCARDIOGRAM, COMPLETE (ECG) On: 28-Apr-2013 Intent ([id number])By: Eli Bowman CNP Comments: sinus bradycardia Eli WATTERS Bio Z ([id number])By: Eli Bowman CNP E On: 28-Apr-2013 Intent Eli Bowman CNP EKG ([id number])By: Edita Cabral MD On: 28-Mar-2013 Intent Comments: see scanned document of test done to see results reviewed today with patient Eprescribed prescriptions ([id number])By: On: 28-Mar-2013 Intent Teressa Molina LPN Eprescribed prescriptions ([id number])By: On: 08-Dec-2012 Intent Nunu Stephens LPN Spirometry ([id number])By: Shilpi COLEMAN, On: 25-Nov-2012 Intent Mayda Comments: Computer not running so not able to perform test Aerosol Treatment ([id number])By: Shilpi On: 25-Nov-2012 Mayda Bailey DO Spirometry ([id number])By: Thee COLEMAN, On: 21-Nov-2012 Intent Erna Schaefer Comments: good effort and curve normal Radiology - Chest- PA and LatBy: On: 21-Nov-2012 Intent Erna Kingston DO Eprescribed prescriptions ([id number])By: On: 21-Nov-2012 Intent Makayla Dillard LPN ADMINISTRATION OF PNEUMOCOCCAL On: 31-Oct-2012 Intent VACCINE ([id number])By: Edita Cabral MD Comments: Lot #[id number]-right deltoidDose0.5mlgiven by: [facility] per fax. M PNEUM VAC ADLT/IMUMNOSPR, SBC/INTRM On: 31-Oct-2012 Intent ([id number])By: Jodi Carvalho LPN Eprescribed prescriptions ([id number])By: On: 18-Oct-2012 Intent Jesse VICKERSNJasonn L FLU VAC, SPLIT, >3 YEARS, INTRAMUSC On: 01-Jul-2012 Intent ([id number])By: Eli Bowman CNP Comments: Lot:[id number]:6.13Amt:prefilled syringeSite: L Dltd, IMGiven by: MARISA Torres CNP, Elif ADMINISTRATION OF INFLUENZA VIRUS On: 01-Jul-2012 Intent VACCINE ([id number])By: Colby WATTERS ElifAmee Bowman CNP, Elif SPECIMEN HANDLING/TRANSPORT On: 01-Jul-2012 Intent ([id number])By: Sue Ewing LPN Solu -Medrol Injection, 125 mg On: 23-Nov-2011 Intent ([id number])By: Edita Cabral MD Comments: Lot [id number]-R hip, IMDose 125mggiven by:Teressa Radiology - ChestBy: Misha PROCTOR, On: 23-Nov-2011 Intent Edita Clinton Comments: wet read Pulse Oximetry ([id number])By: Benoit On: 23-Nov-2011 Intent AKBAR Aerosol Treatment ([id number])By: Colby On: 16-Nov-2011 Intent Eli WATTERS CNP Elif Pulse Oximetry ([id number])By: Vin, On: 16-Nov-2011 Intent Lynn Comments: 93 FLU VAC, SPLIT, >3 YEARS, INTRAMUSC On: 16-Nov-2011 Intent ([id number])By: Lynn Banuelos Comments: received at work SPECIMEN HANDLING/TRANSPORT On: 14-Sep-2011 Intent ([id number])By: Edita Cabral MD SPECIMEN HANDLING/TRANSPORT On: 26-Aug-2011 Intent ([id number])By: Sue Ewing LPN Ultrasound - LiverBy: Misha PROCTOR, On: 11-Jun-2011 Intent Edita Clinton EKG (01701)By: Edita Cabral MD On: 16-Feb-2011 Intent MAMMOGRAM, SCREENING, BOTH BREASTS On: 13-Mar-2010 Intent ([id number])By: Edita Cabral MD MAMMOGRAM, SCREENING, BOTH BREASTS On: 06-Mar-2010 Intent ([id number])By: Edita Cabral MD MAMMOGRAM, SCREENING, BOTH BREASTS On: 13-Feb-2010 Intent ([id number])By: Edita Cabral MD Spirometry ([id number])By: Misha PROCTOR, On: 01-Oct-2009 Intent Edita Clinton ELECTROCARDIOGRAM, COMPLETE (ECG) On: 01-Oct-2009 Intent ([id number])By: Edita Cabral MD Pulse Oximetry ([id number])By: Benoit, On: 01-Oct-2009 Intent AKBAR Spirometry ([id number])By: Thee COLEMAN On: 30-Jul-2009 Intent Erna Schaefer Comments: good effort and curve normal Radiology - Chest- PA and LatBy: On: 30-Jul-2009 Intent Erna Kingston DO Pulse Oximetry ([id number])By: Vin, On: 30-Jul-2009 Intent Lynn Comments: 94%repeat 97-98 EKG (16270)By: Erna Kingston DO On: 14-Jul-2009 Intent Comments: ekg showed normal sinus rhythym, normal axis, no acute st/t wave changes old t wave inversion noted on previous ekg Pulse Oximetry (35015)By: Vin On: 11-Jul-2009 Intent Lynn Comments: 97% Solu -Medrol Injection, 125 mg On: 09-Jul-2009 Intent ([id number])By: Erna Kingston DO Comments: Lot #:[id number] date:mount given:125mgRoute:IM Site given:left buttockGiven by: MARIA DOLORES Cordon Aerosol Treatment ([id number])By: Thee On: 09-Jul-2009 Erna Bailey DO Pulse Oximetry ([id number])By: Thee COLEMAN On: 09-Jul-2009 Intent Erna Schaefer Comments: repeat after treatment was 96 Pulse Oximetry ([id number])By: Vin On: 09-Jul-2009 Intent Lynn Comments: 93% Spirometry ([id number])By: Gildardo SOUSA, On: 25-Jan-2009 Intent Sue MAMMOGRAM, SCREENING, BOTH BREASTS On: 29-May-2008 Intent (70198)By: Edita Cabral MD EKG (96209)By: Edita Cabral MD On: 29-May-2008 Intent Spirometry (50402)By: Misha PRCOTOR, On: 27-Dec-2007 Intent Edita Clinton Ultrasound - ThyroidBy: Misha PROCTOR, On: 22-Mar-2007 Intent Edita Clinton MAMMOGRAM, SCREENING, BOTH BREASTS On: 22-Mar-2007 Intent ([id number])By: Edita Cabral MD MAMMOGRAM, SCREENING, BOTH BREASTS On: 22-Mar-2007 Intent ([id number])By: Edita Cabral MD ELECTROCARDIOGRAM, COMPLETE (ECG) On: 22-Mar-2007 Intent ([id number])By: Edita Cabral MD Planned Medications INJECTION, KETOROLAC [...] disease, bilateral : DISCONTINUED - POTASSIUM SERUM (64077) Indication: Active Meniere's disease, bilateral Elevated LFTs : DISCONTINUED - HEPATIC FUNCTION PANEL (35369) Indication: Elevated LFTs Diabetes mellitus type II, [...] reveiwing printed for pt to take to [facility] , [ADDITIONAL REASON] Weight Gain - Note [...] Note for Depression: Just started seeing couselor Mariai Zhang suggesting tweak meds a bit. Has 3 [...] in ER on 12-29 after eating at [employer] and choking on a piece of potatoe had th End: 04-Jan-2017 11:17 amee hilario then went to urgent care, told to go to ER at [facility] diagnosed with Esophagitis was given pepcid [...] occurred following a specific injury (lifting at [employer] for years but no fall). The injury [...] bathroom. [facility]: PAP smear (needs updated ), mammography (needs updated ) and colonoscopy (needs updated however patient refuse to have done bc she was hospitalized with the last one with infection for 5 days ). The patient does have durable power of claim attorney and living will. The patient has noticed [...] for Tdap vaccination (Renamed from Need for bcmbdcqwab-cdwzhoy-ssguavhzk (Tdap) vaccine, adult/adolescent), Goiter (Renamed from [place] [...] (240.9), Hypothyroidism(244.9) [facility] Payers MedicarePhysicians [employer] Insurance Lilly Toro; silvano guarantor
--- OUTSIDE RECORDS SUMMARY | 2018-11-25 14:48 | XMS RPT_ITS | Continuity of Care Document ---
:1950 Author Organization [facility] Address [address] [place] [address] Phone Care Team Providers Name Role Phone Colby JANENEEli E Unavailable Mina Baer MD Unavailable Nhung Duval Unavailable [facility], [facility] Unavailable Kasi Scott Unavailable Mariia Zhang [...] with bottles, extensive review with nurse and [facility], med list updated Status: Active Postmenopausal (Renamed from Postmenopausal status) (Z78.0, V49.81) Status: Active Pregnancies () Comments: 2 Status: Active S/P hysterectomy (Z90.710, V88.01) Comments: for endometrial hyperplasia 2015 Status: Active Shortness of breath (R06.02, 786.05) Status: Active Sleep apnea (G47.30, 780.57) Comments: needs repeat sleep study at [facility] to get back on cpap Status: [...] Caitlin Delaney Start : 29-Jul-2018 Active Ergocalciferol 54135 UNIT Oral Capsule 1 Capsule twice weekly [...] tablet daily (15 MG) Active Comments:Catr[place]ito [place] 01/14 31G X 5 MM Miscellaneous 1 [...] Refills: 0 Ordered:16-May-2013 Colby WATTERS, Eli Yanez [facility], Eli Lubin Start : 16-May-2013 End : 23-May-2013 Inactive Cheratussin AC 100-10 MG/5ML Oral Syrup 1 Teaspoon(s) qhs prn cough for 0 days Quantity: 8 {Fluid_Ounce} Refills: 0 Ordered:16-Jun-2016 Priya Gillette Start : 12-Mar-2016 End : 16-Jun-2016 Inactive Comments:eight CIPRO, 500MG (Oral Tablet) 1 Tablet bid for 7 days Quantity: 14 {Tablet} Refills: 0 Ordered:15-Jan-2014 Colby WATTERS[facility] Start : 15-Jan-2014 End : [...] : 07-Nov-2012 End : 12-Feb-2014 Inactive Drisdol 71415 UNIT Oral Capsule 1 (one) Capsule once [...] : 29-Jul-2010 End : 30-Sep-2010 Inactive Nystatin 829132 UNIT/ML Mouth/Throat Suspension 4-6 Milliliter swish and [...] : 12-Dec-2015 End : 16-Jun-2016 Inactive Comments:per [facility] Topamax 100 MG Oral Tablet 1 [...] 03-Jan-2018 Inactive Comments:1 rambo as directed ZOSTAVAX, 44981ZOH/0.65ML (Subcutaneous Solution Reconstituted) 1 For Solution once [...] Start : 04-Jan-2017 End : 04-Jan-2017 Discontinued Comments:[facility] FLEXERIL, 10MG (Oral Tablet) 1 (one) Tablet TID/PRN for 0 days Quantity: 30 {Tablet} Refills: 1 Ordered:18-Oct-2012 Esme Gou Start : 18-Oct-2012 End : 30-Apr-2014 Discontinued [...] : 13-Nov-2013 End : 13-Nov-2013 Discontinued Comments:ID [id number] Medrol 4 MG Oral Tablet Therapy Pack [...] 18-Jan-2017 End : 27-Jul-2017 Discontinued Vitamin D3 71140 UNIT Oral Tablet 1 (one) Tablet Tablet once a week for 60 days Quantity: 8 {Tablet} Refills: 0 Ordered:04-Jan-2017 Slarb [employer] Start : 24-Nov-2016 End : 04-Jan-2017 Discontinued [...] for Tdap vaccination (Renamed from Need for hcgimkwwtl-cxmzuug-bhhfiqnkf (Tdap) vaccine, adult/adolescent) (Z23, V06.1) Status: Inactive as of 12-Dec-2015 Other and unspecified hyperlipidemia (E78.5, 272.4) Status: Inactive as of 24-Jul-2013 Pharyngitis, acute (J02.9, 462) Comments: rapid strep negativeCulture Status: Inactive as of 20-Jan-2016 Pneumonitis (J18.9, 486) Status: Inactive as of 14-May-2014 Pre-operative exam (Renamed from Preop examination) (Z01.818, V72.84) Comments: Getting 4 tooth out 07/17 next week, [place] [facility].HAs MARTHA has CPAP but not been using it for 2 years, need to see Bavis for retitration.Cr : 1.77 , repeat labs, US kidneyDM type 2: HBa1c 5.4 BMI:(obesit y increase the risk of wound infection, PE.Not malnourishedLabs:CBCCMPPT/INRtype and screen gel(56450)EK06/10/16: no acute changesHas good social support and [...] under good control Patient to use Mucinex wfgg-awe-kqpaxwb which helped her. Status: Inactive as of [...] Completed Comments: 2000 Tubal ligation 1963 Completed [facility] Left endolymphatic sac Completed decompression with shunt and middle ear infusion with decadron 03/05 Date Value Details 01-Aug-2018 CTA Chest W/WO Contrast Result: Comments: See Note; NOTES: [facility] Imaging Services [address] [place] [address] CTA Chest W/WO Contrast MR#: [id number] Acct: [id number] Name: ELIZABETH TORO Rep #: [id number] : 1950 F 67 From: Hardeep Calix MD PCP: Eli Bowman NP Status: REG CLI Study: CTA Chest W/WO Contrast Date of Exam: 08/01/18 Exam# [id number] Ordering Dr: Eli Bowman STUDY: CTA CHEST/T [...] Service support , CC: Eli Bowman NP Dairy Processing Equipment Operator: Signed 29-Jul-2018 Chest PA and Lateral Result: Comments: See Note; NOTES: [facility] Imaging Services [address] [place] [address] Chest PA and Lateral MR#: [id number] Acct: [id number] Name: ELIZABETH TORO Rep #: [id number] : 1950 F 67 From: Cami Klein MD PCP: Eli Bowman NP Status: REG CLI Study: Chest PA and Lateral Date of Exam: 07/29/18 Exam# [id number] Ordering Dr: Eli Bowman STUDY: X-RAY CHEST [...] Service support , CC: Eli Bowman NP Dairy Processing Equipment Operator: Signed 21-Apr-2018 Downtime Report Result: Comments: See Note; NOTES: [facility] Medical Records Department [address] [place] [address] Downtime Report MR#: [id number] Acct: [id number] Name: ELIZABETH TORO Rep #: : 1950 67 From: Alon Klein PCP: Eli Bowman NP Status: REG RCR This patient was seen during an EMR downtime April 04, 2018 - April 11, 2018. This patient may have a combination of p aper and electronic documentation or all paper documentation. All documentation is viewable within the e-chart portion of [employer] for each patient visit. 12-Apr-2018 NCS and/or EMG Patient Result: Comments: See Note; NOTES: [facility] Pulmonary Services/Neurology [address] [place] [address] MR#: [id number] Acct: [id number] Name: ELIZABETH TORO Rep #: [id number] : 1950 67 From: Kal Hernandez MD Referring Dr: Eli Bowman NP Status: REG CLI Ordering Dr: Date: Location: [facility] Sex: F C NCS and/or EMG Patient [...] ____ Kal Hernandez MD CC: Eli Bowman SHEET METAL OPERATOR; Kal Hernandez MD Date Dictated: 04/12/18949 Date Transcribed: 04/12/18949 Dairy Processing Equipment Operator: MOHIT Signed 01-Feb-2018 PT D/C Summary (1) Result: Comments: See Note; NOTES: [facility] Physical Therapy [facility] [address] [place] [address]. [address] [place], [place] [address] Fax REHABILITATION SERVICES DISCHAR SUMMARY MR#: [id number] Acct: [id number] Name: ELIZABETH TORO Rep #: [id number] : 1950 67 From: Cristopher Francis PT, ATC Referring DrJose: Mayda Dobbins DO Status: REG R Insurance: [facility] PART A B PHYSICIAN [employer] HP - PT D/C Summary [...] please feel free to call me at [phone]. Thank you for the referral of this patient. Sincerely, Cristopher Francis PT, <Electronically signed by Andrea Francis PT, ATC> 02/01/18 0823 CC: Eli Bowman SHEET METAL OPERATOR; Mayda Dobbins DO [facility] Signed 30-Dec-2017 Inital Evaluation (1) - PT Result: Comments: See Note; NOTES: [facility] Physical Therapy [facility] [place] [address] Fax REHABILITATION SERVICES INITIAL EVALUATION MR#: [id number] Acct: [id number] Name: ELIZABETH TORO Rep #: [id number] : 1950 67 From: Cristopher Francis PT, ATC Referring DrJose: Mayda Dobbins DO Status: REG RCR Insurance: [employer] PART A B PHYSICIAN [employer] CO [...] to be FAXED BACK to us at [phone] for Medicare purposes. Please let me know if there are questions or concerns regarding this plan of care. Physician Signature: Date: <Electronically signed by Cristopher Francis PT, ATC> 12/30/17 1056 CC: Eli Bowman NP; Mayda Dobbins DT: 0 12/30/17 [facility] Signed For Medicare only, by signing this I certify the plan of care. Physicians Signature Date 08-Oct-2017 Operative Report Result: Comments: See Note; NOTES: [facility] Medical Records Department [address] [place] [address] Operative Report 10/08/172017 MR#: [id number] Acct: [id number] Name: XAVIER TORO Rep #: [id number] : 1950 67 From: Oscar Winston MD PCP: Eli Bowman NP Status: REG SDC Y Location: [place] [address] Problem List (1) Intrinsic (urethral) sphincter deficiency [...] Discharge Instruction Result: Comments: See Note; NOTES: [facility] Medical Records Department [address] [place] [address] Instructions for Home/Discharge Instructions 10/08/171950 MR#: [id number] Acct: [id number] Name: ELIZABETH TORO Rep #: [id number] : 1950 67 From: Oscar Winston MD PCP: Eli Bowman NP Status: REG [facility] Discharge Diet: Light diet - advance as [...] and Lateral Result: Comments: See Note; NOTES: [facility] Imaging Services [address] [place] [address] Chest PA and Lateral MR#: [id number] Acct: [id number] Name: JAYYELIZABETH A Rep #: [id number] : 1950 F 67 From: Yury Arthur MD PCP: Eli Bowman Status: REG CLI Study: Chest PA and Lateral Date of Exam: 08/30/17 Exam# [id number] Ordering Dr: Mayda Dobbins DO STUDY: X-RAY [...] , CC: Eli Bowman; Mayda Dobbins DO Dairy Processing Equipment Operator: Signed 20-Jul-2017 L/S Spine Min 4 Views Result: Comments: See Note; NOTES: [facility] Imaging Services [address] [place] [address] L/S Spine Min 4 Views MR#: [id number] Acct: [id number] Name: ELIZABETH TORO Rep #: [id number] : 1950 F 66 From: Dionte Lujan DO PCP: Eli Bowman Status: REG CLI Study: L/S Spine Min 4 Views Date of Exam: 07/20/17 Exam# [id number] Ordering Dr: Edita Cabral MD STUDY: X-RAY [...] Fax CC: Eli Bowman; Edita Cabral MD Dairy Processing Equipment Operator: Signed 20-Jul-2017 Shoulder min 2 Views Result: Comments: See Note; NOTES: [facility] Imaging Services [address] [place] [address] Shoulder min 2 Views MR#: [id number] Acct: [id number] Name: ELIZABETH TORO Rep #: [id number] : 1950 F 66 From: Dionte Lujan DO PCP: Eli Bowman Status: REG CLI Study: Shoulder min 2 Views Date of Exam: 07/20/17 Exam# [id number] Ordering Dr: Edita Cabral MD STUDY: X-RAY - RIGHT [facility] REASON FOR EXAM: Female, 66 years old. [...] , CC: Eli Bowman; Edita Cabral MD Dairy Processing Equipment Operator: Signed 11-May-2017 PT D/C Summary (1) Result: Comments: See Note; NOTES: [facility] Physical Therapy [facility] [address] [place], [place] [address] Fax REHABILITATION SERVICES DISCHAR GE SUMMARY MR#: [id number] Acct: [id number] Name: ELIZABETH TORO Rep #: [id number] : 1950 66 From: Naomi COMER Referring [...] please feel free to call me at [phone]. Thank you for the referral of this patient. Sincerely, Naomi Osorio <Electronically signed by Naomi Osorio MPT> 09/17 0919 CC: Nunu Root; Eli Bowman Signed 14-Apr-2017 Inital Evaluation (1) - PT Result: Comments: See Note; NOTES: [facility] Physical Therapy [facility] [address] [place] [address] Fax REHABILITATION SERVICES INITIAL EVALUATION MR#: [id number] Acct: [id number] Name: ELIZABETH TORO Rep #: [id number] : 1950 66 From: Naomi COMER Referring [...] to be FAXED BACK to us at [phone] for Medicare purposes. Please let me know if there are questions or concerns regarding this plan of care. Physician Signature: Date: <Electronically signed by Naomi Osorio MPT> 04/14/17 1906 CC: Nunu Root; Eli Bowman Signed For Medicare only, by sign ing this I certify the plan of care. Physicians Signature Date 08-Apr-2017 Knee 4 or More Views Result: Comments: See Note; NOTES: [facility] Imaging Services [address] [place] [address] Verdana 4d Knee 4 or More Views MR#: [id number] Acct: [id number] Name: ELIZABETH TORO p #: [id number] : 1950 F 66 From: Chalino Mancia MD PCP: Eli Bowman Status: REG CLI Study: Knee 4 or More Views Date of Exam: 04/08/17 Exam# [id number] Ordering Dr: Mayda Dobbins DO STUDY: X-RAY [...] , CC: Eli Bowman; Mayda Dobbins DO Dairy Processing Equipment Operator: Signed 08-Apr-2017 Knee 4 or More Views Result: Comments: See Note; NOTES: [facility] Imaging Services [address] [place] [address] Verdana 4d Knee 4 or More Views MR#: [id number] Acct: [id number] Name: JAYYELIZABETH A Re p #: [id number] : 1950 F 66 From: Chalino Mancia MD PCP: Eli Bowman Status: REG CLI Study: Knee 4 or More Views Date of Exam: 04/08/17 Exam# [id number] Ordering Dr: Mayda Dobbins DO STUDY: X-RAY [...] osteoarthritis of the left knee Electronically Signed: Chlaino Bray, at 6:59 EDT Tel , Service support , CC: Eli Bowman; Mayda Dobbins DO Dairy Processing Equipment Operator: Signed 15-Mar-2017 Sleep Study Report Result: Comments: See Note; NOTES: [facility] SLEEP DISORDER CENTER [address] [place] [address] Polysomnography with NCPAP MR#: [id number] Acct: [id number] Name: ELIZABETH TORO p #: [id number] : 1950 66 From: Kal Hernandez MD [...] version). Please note that a reference to [facility] AHI in this report is consistent with the current Hypopnea definition according to Medicare Criteria and an AASM AHI reference is consistent with the current Hypopnea defini tion according to the AASM criteria and is recognized by [facility] as the RDI. PROCEDURE: The study was attended continuously by a assistant technician. Monitored parameters included left and right [...] body mass index of 30.9 and an [place] Sleepiness Scale score of 6. There is [...] requested. Kal Hernandez MD T: NTS JOB: [id number] CC: Kal Hernandez MD 115 1151 03/15/17 1451 <Electronically signed by Kal Hernandez MD> Date Kal Hernandez MD Co-signature (if applicable) Date Signed 05-Jan-2017 Esophagus Only Result: Comments: See Note; NOTES: [facility] Imaging Services [address] [place] [address] Verdadamian 4d Esophagus Only MR#: [id number] Acct: [id number] Name: ELIZABETH TORO Rep #: [id number] : 1950 F 66 From: Gabriela Ragland MD PCP: Eli Bowman Status: REG CLI Study: Esophagus Only Date of Exam: 01/05/17 Exam# [id number] Ordering Dr: Sofia Bragg MD STUDY: AIR-CONTRAST [...] , CC: Eli Bowman; Sofia Bragg MD Dairy Processing Equipment Operator: Signed 29-Dec-2016 Emergency Department Summary Result: Comments: See Note; NOTES: [facility] Medical Records Department [address] [place] [address] Emergency Department Summary MR#: [id number] Acct: [id number] Name: XAVIER TORO Rep #: [id number] : 1950 66 From: Sofia Bragg MD PCP: Eli Bowman Status: DEP ER DATE OF SERVICE: 12/29/2016 CHIEF COMPLAINT: Sore throat. HISTORY OF PRESENT ILLNESS: This is a 66-year- old woman that states she was at [employer], choked on a piece of potato 5 [...] the case with Dr. Pena who is clip on sunglasses inspector for GI and he suggested ordering an [...] C: Eli Pena MD T: NTS JOB: [id number] 12/29/16 <Electronically signed by Sofia Bragg MD> Date Sofia Bragg MD Cosigner Signature (If Indicated): Date CC: Eli Bowman; Junior Pena Date Dictated: 12/29/161828 Date Transcribed: 12/29/161828 Dairy Processing Equipment Operator: Signed 29-Dec-2016 Discharge Instruction Result: Comments: See Note; NOTES: [facility] Medical Records Department [address] [place] [address] Discharge Instruction 12/29/161829 MR#: [id number] Acct: [id number] Name: ELIZABETH TORO Rep #: [id number] : 1950 66 From: Sofia Bragg MD [...] your Primary Care Provider. Call [facility] ([phone] ) or report to the closest Emergency Room. Call 911 if necessary. 12/29/161832 <Electronically signed by Sofia Bragg MD> Date Sofia elliott MD Cosigner Signature (If Indicated): Date CC: Eli Bowman 07-Aug-2016 Sleep Study Report Result: Comments: See Note; NOTES: [facility] SLEEP DISORDER CENTER [address] [place] [address] Split Night Sleep Study MR#: [id number] Acct: [id number] Name: ELIZABETH TORO Rep #: [id number] : 1950 65 From: Kal Hernandez MD [...] version). Please note that a reference to [facility] AHI in this report is consistent with the current Hypopnea definition according to Medicare Criteria and an [facility] AHI reference is consistent with the current Hypopnea defin ition according to the AASM criteria and is recognized by [facility] as the RDI. PROCEDURE: The study was attended continuously by a assistant technician. Monitored parameters included left and right [...] a body mass index of 29.3 and [place] Sleepiness Scale score of 2. There is [...] humidity. Kal Hernandez MD T: NTS JOB: [id number] CC : Kal Hernandez MD 1144 1144 08/07/16 0959 <Electronically signed by Kal Hernandez MD> Date Kal Hernandez MD Co-signature (if applicable) Date Signed -Aug-2016 Kidney and Bladder Result: Comments: See Note; NOTES: [facility] Imaging Services [address] [place] [address] Verdana 4d Kidney and Bladder MR#: [id number] Acct: [id number] Name: ELIZABETH TORO Rep #: [id number] : 1950 F 65 From: Anibal Lan MD PCP: Donnie Gonzales Status: [facility] CL Study: Kidney and Bladder Date of Exam: 08/04/16 Exam# [id number] Ordering Dr: Beto Henry MD UDY: RENAL [...] Anibal Lan MD at 11:16 EDT Tel [phone], Service support [phone], CC: Soumya Henry M.D.; Donnie Gonzlaes Dairy Processing Equipment Operator: Signed 23-Jun-2016 Operative Report Result: Comments: See Note; NOTES: [facility] Medical Records Department [address] [place] [address] Operative Report MR#: [id number] Acct: [id number] Name: ELIZABETH TORO Rep #: [id number] : 1950 65 From: Gm Brush MD PCP: Donnie Gonzales Status: REG [facility] DATE OF SERVICE: 06/22/2016 DATE OF PROCEDURE: June 22, 2016 SURGEON: Gm Brush M.D. WEBMETHODS ARCHITECT: Lia jacinto. ANESTHESIA: Gem Shelby and Frank [...] ovaries. Gm Brush MD T: NTS JOB: [id number] 06/23/16 0725 <Electronically signed by Gm Brush MD> Date __ Gm Brush MD Cosigner Signature (If Indicated): Date CC: Gm Brush MD; Donnie Nolasco Dicta nahed: 06/22/161102 Date Transcribed: 06/22/161102 Dairy Processing Equipment Operator: Signed 22-Jun-2016 Discharge Instruction Result: Comments: See Note; NOTES: [facility] Medical Records Department [address] [place] [address] Instructions for Home/Discharge Instructions 06/22/16 0904 MR#: [id number] Acct: [id number] Name: ELIZABETH TORO Rep #: [id number] : 1950 65 From: Gm Brush MD PCP: Donnie Gonzales Status: REG [facility] Discharge Diet: No Restrictions Discharge Activity: Return [...] CC: Donnie Gonzales 10-Jun-2016 ELECTROCARDIOGRAM, COMPLETE (ECG) (16982) Result: [MEASUREMENTS ANALYSIS] Date of Test: 06/10/2016 09:39:53; Heart Rate: 58; [place] Interval: 208; QRS: 86; QT Interval: 480; Corrected QT Interval (QTc): 477; P Wave Jewell: 45; QRS Wave Jewell: 11; T Wave Jewell: 23; Blood Pressure: 112/70 [ECG DIAGNOSTIC STATEMENTS] Date of Test: 06/10/2016 09:39:53; Summary: Sinus Bradycardia - Negative T-waves -May be normal - possible Anteroseptal ischemia. BORDERLINE 13-Apr-2016 Operative Report Result: Comments: See Note; NOTES: [facility] Medical Records Department [address] [place] [address] Operative Report MR#: [id number] Acct: [id number] Name: XAVIER TORO Rep #: [id number] : 1950 65 From: Gm Brush MD PCP: Edita Cabral MD Status: [facility] DATE OF SERVICE: 04/13/2016 DATE [...] curettings. Gm Brush MD T: NTS JOB: [id number] 04/13/16 1838 <Electronically signed by Gm Brush MD> Date Gm Brush MD Cosigner Signature (If Indicated): Date CC: Edita Young; Gm Brush MD Date Dictated: 04/13/161030 Date Transcribed: 04/13/161030 Dairy Processing Equipment Operator: Signed 13-Apr-2016 Discharge Instruction Result: Comments: See Note; NOTES: [facility] Medical Records Department [address] [place] [address] Instructions for Home/Discharge Instructions 04/13/16 1003 MR#: [id number] Acct: [id number] Name: ELIZABETH TORO Rep #: [id number] : 1950 65 From: Gm Brush MD PCP: Edita Cabral MD Status: REG [facility] Discharge Diet: No Restrictions Discharge Activity: R [...] mg PO DAILY 04/10/16 Hydrocodone Bitart/Apap 5-325 [[place] 5MG-325MG] 1 tablet PO Q4H PRN PRN #10 tablet 04/13/16 The followi ng prescriptions were given: Hydrocodone Bitart/Apap 5-325 [[place] 5MG-325MG] 1 tablet PO Q4H PRN PRN #10 tablet PRN Reason: Mod-Severe Pain () Please Follow Up With: Gm Brush When: 2-3 jason bowers 04/13/16 1004 <Electronically signed by Gm Brush MD> Date Gm Brush MD CC: Edita Cabral MD 22-Mar-2016 Emergency Department Summary Result: Comments: See Note; NOTES: [facility] Medical Records Department [address] [place] [address] Emergency Department Summary MR#: [id number] Acct: [id number] Name: ELIZABETH TORO Rep #: [id number] : 1950 65 From: Nando Fuller MD [...] C: Edita Brush MD T: NTS JOB: [id number] 03/22/16 0247 <Electronically signed by Nando Fuller MD&a mp;#62; Date Nando Fuller MD Cosigner Signature (If Indicated): Date CC: Edita Cabral MD; Otilia Brush MD Date Dictated: 03/21/1650 Date Transcribed: 03/21/1650 Dairy Processing Equipment Operator: Signed 21-Mar-2016 Discharge Instruction Result: Comments: See Note; NOTES: [facility] Medical Records Department [facility] [place] [address] Discharge Instruction 03/21/16 0048 MR#: [id number] Acct: [id number] Name: ELIZABETH TORO Rep #: [id number] : 1950 65 From: Nando Fuller MD [...] ems, contact your doctor. Call [facility] ([phone]) or report to the closest Emergency Room. Call 911 if necessary. 03/21/16 0049 <Electronically signed by Nando Fuller MD&#6 2; Date Nando Fuller MD Cosigner Signature (If Indicated): Date CC: Edita Cabral MD 20-Mar-2016 Transvaginal Non- Result: Comments: See Note; NOTES: [facility] Imaging Services [address] [place] [address] Verdana 4d Transvaginal Non- MR#: [id number] Acct: [id number] Name: ELIZABETH DIAZ Rep #: [id number] : 1950 F 65 From: Jose Fu PCP: Edita Cabral MD Status: REG ER Study: Transvaginal Non- Date of Exam: 03/20/16 Exam# [id number] Ordering Dr: Oz Fuller MD STUDY: ULTRASOUND [...] DO at 0:42 EDT , Service support [phone], Fax CC: Edita Cabral MD; Nando Fuller MD Dairy Processing Equipment Operator: Signed 25-Feb-2016 Esophagus Only Result: Comments: See Note; NOTES: [facility] Imaging Services [address] [place] [address] Verdana 4d Esophagus Only MR#: [id number] Acct: [id number] Name: XAVIER TORO Rep #: [id number] : 1950 F 65 From: Anibal Lan MD PCP: Edita Cabral MD Status: REG CLI Study: Esophagus Only Date of Exam: 02/25/16 Exam# [id number] Ordering Dr: Donnie Gonzales STUDY: X-RAY - [...] Anibal Lan MD at 10:35 EDT Tel [phone], Service support [phone], Fax RAD/Esophagus Only IMPRESSION: Normal plain film x-ray examination (barium swallow) of the esophagus. Electronically Signed: Anibal Lan MD at 10: 35 EDT Tel [phone], Service support [phone], CC: Edita Cabral MD; Donnie Gonzales Dairy Processing Equipment Operator: Signed 25-Feb-2016 Esophagus Only Result: Comments: See Note; NOTES: [facility] Imaging Services [address] [place] [address] Verdana 4d Esophagus Only MR#: [id number] Acct: [id number] Name: XAVIER TORO Rep #: [id number] : 1950 F 65 From: Anibal Lan MD PCP: Edita Cabral MD Status: REG CLI Study: Esophagus Only Date of Exam: 02/25/16 Exam# [id number] Ordering Dr: Donnie Gonzales ADDENDUM by Anibal Lan MD on 03/31/16 at 0747 ADDENDUM This is an addendum report for PQRS purposes. 19 images were obtained. Electronically Signed: Anibal Lan MD at 7:47 EDT Tel [phone], Service support [phone], 03/31/16 0747 Date cc: Edita Cabral MD; [...] Anibal Lan MD at 10:35 EDT Tel [phone], Service support [phone], RAD/Esophagus Only IMPRESSION: Normal plain film x-ray examination (barium swallow) of the esophagus. Electronically Signed: Anibal Lan MD at 10:35 EDT Tel [phone], Service support [phone], CC: Edita Cabral MD; Donnie Gonzales Dairy Processing Equipment Operator: Signed 10-Dec-2015 12 Lead Electrocardiogram Result: Comments: See Note; NOTES: [facility] Cardiovascular Services [address] [place] [address] 12 Lead EKG 12/08/15 1551 MR#: [id number] Acct: [id number] Name: ELIZABETH DASILVA Rep #: [id number] : 1950 65 From: Francisco Muller MD [...] ECG Confirmed by FRANCISCO MULLER MD ([id number]), manuscript editor ZUNILDA KLEIN ([id number]) on 12/10/2015 9:33:10 AM Referred By: ROMEL Confirmed By:FRANCISCO MULLER MD 12/10/15 0933 Date ___ Francisco Muller MD CC: Edita Cabral MD Date Dictated: 12/08/151550 Date Transcribed: 12/08/151550 Dairy Processing Equipment Operator: Signed 10-Dec-2015 Emergency Department Summary Result: Comments: See Note; NOTES: [facility] Medical Records Department [address] [place] [address] Emergency Department Summary MR#: [id number] Acct: [id number] Name: ELIZABETH TORO Rep #: [id number] : 1950 65 From: Sisi Severino MD [...] C: Edita Cabral MD T: NTS JOB: [id number] 12/10/15 0232 <Electronically deepti d by Sisi Severino MD> Date Sisi Severino MD Cosigner Signature (If Indicated): Date Dominguez C: Edita Cabral MD Date Dictated: 12/08/151705 Date Transcribed: 12/08/151705 Dairy Processing Equipment Operator: Signed 08-Dec-2015 Discharge Instruction Result: Comments: See Note; NOTES: [facility] Medical Records Department [address] [place] [address] Discharge Instruction 12/08/15 1659 MR#: [id number] Acct: [id number] Name: ELIZABETH TORO Rep #: [id number] : 1950 65 From: Sisi Severino MD [...] problems, contact your doctor. Call [facility] ([phone]) or report to the closest Emergency Room. Call 911 if necessary. 12/08/15 1701 <Electronically signed by Sisi young MD> Date Sisi Severino MD Cosigner Signature (If Indicated): Date CC: Edita Cabral MD 08-Dec-2015 Chest PA and Lateral Result: Comments: See Note; NOTES: [facility] Imaging Services [address] [place] [address] Verdana 4d Chest PA and Lateral MR#: [id number] Acct: [id number] Name: ELIZABETH TORO Rep #: [id number] : 1950 F 65 From: Malaika Diana MD PCP: Edita Cabral MD Status: REG ER Study: Chest PA and Lateral Date of Exam: 12/08/15 Exam# [id number] Ordering Dr: Sisi Severino MD STUDY: X-RAY [...] MD at 16:41 EST , Service support [phone], RAD/Chest PA and Lateral IMPRESSION: No acute disease is demonstrated. Electronic ally Signed: Malaika Diana MD at 16:41 EST , Service support [phone], CC: Edita Cabral MD; Sisi Severino MD Dairy Processing Equipment Operator: Signed 16-Sep-2015 EKG (20540) Result: [MEASUREMENTS ANALYSIS] Date of Test: 09/16/2015 09:46:37; Heart Rate: 74; [place] Interval: 192; QRS: 88; QT Interval: 406; Corrected QT Interval (QTc): 430; P Wave Jewell: 28; QRS Wave Jewell: -3; T Wave Jewell: -1; Blood Pressure: 104/60 [ECG DIAGNOSTIC STATEMENTS] Date of Test: 09/16/2015 09:46:37; Summary: Sinus Rhythm Low voltage in precordial leads. - Nonspecific T-abnormality. ABNORMAL 11-Feb-2015 Kidney and Bladder Result: Comments: See Note; NOTES: [facility] Imaging Services [address] [place] [address] Ultrasound Report MR#: [id number] Acct: [id number] Name: ELIZABETH TORO Rep #: [id number] : 1950 F 64 From: Mina Cade MD PCP: Edita Cabral MD Status: REG CLI Study: Kidney and Bladder Date of Exam: 02/11/15 Exam# [id number] Ordering Dr: Edita Cabral MD STUDY: RE [...] MD at 23:11 EDT , Service support [phone], CC: Edita Cabral MD Dairy Processing Equipment Operator: Signed 24-Jul-2014 PT Discharge Summary Result: Comments: See Note; NOTES: [facility] [address] [place] [address]. [address] [place], [place] [address] Fax REHABILITATION SERVICES DISCHARGE SUMMARY MR#: [id number] Acct: [id number] Name: ELIZABETH TORO Rep #: [id number] : 1950 63 From: Naomi Osorio Referring [...] clinic. Naomi Osorio, PT T: NTS JOB: [id number] <Electronically signed by Faraz Osorio > 07/24/14 1350 CC: Signed 15-Jun-2014 PT Discharge Summary Result: Comments: See Note; NOTES: [facility] [address] [place] [address]. [address] [place] [address] Fax REHABILITATION SERVICES DISCHARGE SUMMARY MR#: [id number] Acct: [id number] Name: ELIZABETH TORO Rep #: [id number] : 1950 63 From: Naomi Osorio Referring [...] our clinic. Sincerely, Naomi Osorio, PT T: [facility] JOB: [id number] <Electronically signed by Naomi Osorio & amp;#62; 06/15/14 1410 CC: Signed 25-May-2014 Inital Evaluation - PT Result: Comments: See Note; NOTES: [facility] [address] [place] [address]. [address] [place] [address] Fax REHABILITATION SERVICES INITIAL EVALUATION MR#: [id number] Acct: [id number] Name: ELIZABETH TORO Rep #: [id number] : 1950 63 From: Naomi Osorio Referring Dr.: Edita Cabral MD Status: REG RCR Insurance: [facility] PART A B Eval Date: PHYSICIAN MUTUAL [...] anterolateral shoulder. She is right-handed. 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 Naomi Osorio, PT T: MICHAEL JOB: [id number] <Electronically signed by Naomi Osorio > 4 1241 CC: Signed For Medicare only, by signing this I certify the plan of care. Physicians Signature Date 23-May-2014 Nuclear Stress Test - Chemical Result: Comments: See Note; NOTES: [facility] Imaging Services [address] [place] [address] Nuclear Medicine Report MR#: [id number] Acct: [id number] Name: ELIZABETH TORO Rep #: [id number] : 1950 F 63 From: Tano Nielsen MD PCP: Edita Cabral MD Status: REG CLI Study: Nuclear Stress Test - Chemical Date of Exam: 05/23/14 Exam# [id number] Ordering Dr: Álvaro Cabral MD EXERCISE TOLERANCE [...] LVEF of 61%. CC: Edita Cabral MD Dairy Processing Equipment Operator: SHEKHAR Signed 14-May-2014 Shoulder min 2 Views Result: Comments: See Note; NOTES: [facility] Imaging Services [address] [place] [address] Radiology Report MR#: [id number] Acct: [id number] Name: ELIZABETH TORO Rep #: [id number] : 1950 F 63 From: Hardeep Dumont MD PCP: Erna Kingston DO Status: REG CLI Study: Shoulder min 2 Views Date of Exam: 05/14/14 Exam# [id number] Ordering Dr: Edita Cabral MD STUDY: X-RAY [...] Silvio Dumont MD at 12:18 EDT , HooftyMatchi ce support [phone], CC: Edita Cabral MD; Erna Kingston DO Dairy Processing Equipment Operator: Signed 30-Apr-2014 CTA Chest W/WO Contrast Result: Comments: See Note; NOTES: [facility] Imaging Services [address] [place] [address] CAT Scan Report MR#: [id number] Acct: [id number] Name: ELIZABETH TORO Rep #: [id number] : 1950 F 63 From: Hardeep Calix MD PCP: Erna Kingston DO Status: REG CLI Study: CTA Chest W/WO Contrast Date of Exam: 04/30/14 Exam# [id number] Ordering Dr: Erna Kingston DO STUDY: CTA [...] at 19 :01 EDT , Service support [phone], CC: Erna Kingston DO Dairy Processing Equipment Operator: Signed Family History Unknown Family Member Name [...] Description Value Details :57 CREATININE FINGERSTICK Comments: [facility] [address] [place] [address] EGFR WB 55.0000 mL/min (Abnormal) CREATININE WB 1.1 mg/dL (Abnormal) Range: 0.55-1.02 69-Mzg-935611:19 D-Dimer (98296) Comments: PATIENT NOT FASTINGPERFORMED BY: [employer] Gqxurz1228 [facility] [id number] D-Dimer 0.57 {mg/L_FEU} (Abnormal) Range: 0.00-0.49 Comments: According to the assay planting material carrier's published package insert, anormal (<0.50 mg/L FEU) D-dimer result in conjunction with a non-highclinical probability assessment, excludes deep vein thrombosis (D VT)and pulmonary embolism (PE) with high sensitivity. .D-dimer values increase with age and this can make VTE exclusion ofan older pop ulation difficult. To address this, the [employer], based on best available evidence [...] and an80 year old 0.80 mg/L FEU. 61-Jwv-014092:19 Troponin I (45992) Comments: PATIENT NOT FASTINGPERFORMED BY: TutorGroupSaint Peter's University HospitalSvtajy7890 [facility] [id number] Troponin I <0.01 ng/mL (Normal) Range: 0.00-0.04 84-Enh-869254:19 CPK MB FRACTION (79853) Comments: PATIENT NOT FASTINGPERFORMED BY: TutorGroupSaint Peter's University HospitalKoaroq8743 [facility] [id number] Creatine Kinase (CK), MB 2.5 ng/mL (Normal) Range: 0.0-5.3 03-Vxu-141604:19 CREATINE KINASE TOTAL (52049) Comments: PATIENT NOT FASTINGPERFORMED BY: [facility] Lldzbb6048 [address] [place] [id number] Creatine Kinase,Total 103 U/L (Normal) Range: 24-173 11-Dkc-70915:16 CBC-Complete Blood Cnt No Diff Comments: [facility] [address] [place], [address] MPV 10.5 fL (Normal) Range: 6.2-12.0 [...] Range: 4.4-11.0 :16 Microalb:Creat Ratio,Random UR Comments: [facility] [address] [place], [address] MALB:CREAT Test not performed {mg/g_CRE} (Normal) MICROALBUMIN,UR < 5.0 mg/L (Normal) UR CREAT < 13.00 mg/dL (Normal) :16 PTHIN 51.5 pg/mL (Normal) Comments: [facility] [address] [place], [address] Range: 18.4-80.1 67-Sjm-15347:16 Renal Profile Comments: [facility] [address] [place], [address] CO2 28.0 mmol/L (Normal) Range: 21.0-32.0 [...] Comments: Please note revised GLUCOSE reference range danlcmcta73/02/2018. 87-Xci-01343:16 Vitamin D,25 Hydroxy Comments: [facility] [address] [place], [place], [address] Vitamin D 25-OH 69.4 ng/mL (Normal) Range: 29.95-100.01 Comments: Vitamin D 25(OH) Status Range Deficiency <20 ng/mL (50nmol/L) Insuffciency 20 - 30 ng/mL (50 - 75 nmol/L) Sufficiency 30 - 100 ng/mL (75 - 250 nmol/L) Toxicity >100 ng/mL (>250 nmol/L) :04 HgA1C , Office (12559) HgA1C , Office 5.5 % (Normal) Range: 4.6 - 7.1 :23 CALCIFEDIOL (36761) Comments: PATIENT WAS FASTINGPERFORMED BY: LabCoSaint Peter's University HospitalYrllhv3866 [facility] [id number] Vitamin D, 25-Hydroxy 43.2 ng/mL (Normal) Range: 30.0-100.0 Comments: Vitamin D deficiency has been defined by the [place] of[place]icine and an Endocrine Society practice guideline as alevel of serum 25-OH vitamin D less than 20 ng/mL (1,2).The Endocrine Society went on to further define vitamin Dinsufficiency as a level between 21 and 29 ng/mL (2).1. IOM ([place] of Medicine). 2010. Dietary reference intakes for calcium and D. [place]: The National Academies Press.2. Azael MF, Leslee NC, Hillary PHILLIPS, et al. Evaluation, treatment, and prevention of vitamin D deficiency: an Endocrine Society clinical practice guideline. JCEM. 2010; 96(7):1911-30. 57-Ftr-36315:23 CBC, Platelets & Auto Diff Comments: PATIENT WAS FASTINGPERFORMED BY: LabCoSaint Peter's University HospitalSyfmsp4570 [facility] [id number] (31481) Immature Grans (Abs) 0.0 {x10E3/uL} (Normal) Range: [...] Panel, Comprehensive Comments: PATIENT WAS FASTINGPERFORMED BY: [employer] Zfdtjn9620 [facility] [id number] (47117) ALT (SGPT) 15 [iU]/L (Normal) Range: 0-32 [...] CREATININE RATIO Comments: PATIENT WAS FASTINGPERFORMED BY: TutorGroupNor-Lea General HospitalGvknjo5044 [facility] [id number] (04554) AND (51783) Alb/Creat Ratio <5.6 {mg/g_creat} (Normal) Range: 0.0-30.0 Albumin, Urine <3.0 ug/mL (Normal) Creatinine, Urine 53.5 mg/dL (Normal) 90-Cbg-459275:31 Metabolic Panel, Basic Comments: PATIENT NOT FASTINGPERFORMED BY: [employer] [place] [id number] (52773) Calcium, Serum 9.9 mg/dL (Normal) Range: 8.7-10.3 [...] (Normal) Range: 65-99 02-Nov-20178:55 HgA1C , Office (47129) Comments: 5.5 HgA1C , Office 5.5 % (Normal) Range: 4.6 - 7.1 4-Xff-064497:22 VITAMIN B12 AND FOLATES Comments: today; PATIENT NOT FASTINGPERFORMED BY: [employer] [place] [id number] (38663) Folate (Folic Acid), Serum >20.0 ng/mL (Normal) Comments: A serum folate concentration of less than 3.1 ng/mL isconsidered to represent clinical deficiency. Vitamin B12 655 pg/mL (Normal) Range: 232-1245 Comments: Please note reference interval change 74-Ycp-763248:58 CALCIFEDIOL (70989) Comments: PATIENT NOT FASTINGPERFORMED BY: [employer]370 [employer] [place] [id number] Vitamin D, 25-Hydroxy 25.2 ng/mL (Abnormal) Range: 30.0-100.0 Comments: Vitamin D deficiency has been defined by the [place] of[place] and an Endocrine Society practice guideline as alevel of serum 25-OH vitamin D less than 20 ng/mL (1,2).The Endocrine Society went on to further define vitamin Dinsufficiency as a level between 21 and 29 ng/mL (2).1. IOM ([place] of [employer]). 2010. Dietary reference intakes for calcium and D. [place]: The National Academies Press.2. Azael MF, Leslee LEMON, Hillary PHILLIPS, et al. Evaluation, treatment, and prevention of vitamin D deficiency: an Endocrine Society clinical practice guideline. JCEM. 2010; 96(7):1911-30. :58 TSH (THYROID STIMULATING Comments: PATIENT NOT FASTINGPERFORMED BY: xAd [facility] Aespbj3587 [place] [id number] HORMONE) (87701) TSH 2.410 {uIU/mL} (Normal) Range: 0.450-4.500 :58 CBC WITH MANUAL DIFF (00568) Comments: PATIENT NOT FASTINGPERFORMED BY: [facility] Wsmwmr2371 [employer] IncUnc Health Southeasternin [place] [id number] Immature Grans (Abs) 0.0 {x10E3/uL} (Normal) Range: [...] 3.77-5.28 WBC 7.7 {x10E3/uL} (Normal) Range: 3.4-10.8 66-Jke-344599:58 Metabolic Panel, Comprehensive Comments: PATIENT NOT FASTINGPERFORMED BY: EMIL [facility] Wnqngl1291 [facility] [id number] (16881) ALT (SGPT) 13 [iU]/L (Normal) Range: 0-32 [...] Glucose, Serum 90 mg/dL (Normal) Range: 65-99 6-Vrd-701394:07 Bedside Glucose Comments: [facility] [address] [place] [address] BEDSIDE GLU 100 mg/dL (Normal) Range: 70-110 Comments: MANAGEMENT OF PATIENT CARE PER NURSING PROTOCOL 59-Iey-383229:14 D-Dimer Quantitative (DVT/PE) Comments: Order Date: 08/30/17Order Info: [id number] - [facility] [address]abvva[address] [place], [place], [address] D-DIMER QUANT 0.35 {FEU/ug/m} (Normal) Range: 0.27-0.49 Comments: NORMAL D-Dimer level (<0.50) indicates no DVT or PE. 22-Ejg-116330:44 Blood Glucose , Office (00534) Blood Glucose , 129 (Normal) Office :2 Request Problem Final report Comments: PATIENT NOT FASTINGPERFORMED BY: xAd [facility] Ngwpky6366 [facility] [id number] Information: MOUTH SRC:MO 1 (Normal) Comments: Inappropriate source for anaerobic culture. A routine aerobic culturewas initiated. Contact the Microbiology Lab for further information. :2 Test Code Change SPRCS (Normal) Comments: PATIENT NOT FASTINGPERFORMED BY: [facility] Ynbaxe5234 [facility] [id number] 1 Comments: Please note that the Microbiology test code was changed to reflectthe specimen source or transport received. :21 Upper Respiratory Culture Comments: PATIENT NOT FASTINGPERFORMED BY: [facility] Ngmahe8789 [facility] [id number] Result 1 RRF (Normal) Comments: Routine respiratory duyen Upper Respiratory Culture Final report (Normal) :59 Metabolic Panel, Comprehensive Comments: Jul 2017; PATIENT NOT FASTINGPERFORMED BY: [facility] Nnkfgo8640 [facility] [id number] (18517) ALT (SGPT) 16 [iU]/L (Normal) Range: 0-32 [...] Glucose, Serum 80 mg/dL (Normal) Range: 65-99 88-Uny-218225:59 MAGNESIUM (57910) Comments: today; PATIENT NOT FASTINGPERFORMED BY: [facility] Ghavjg2304 [facility] [id number] Magnesium, Serum 2.2 mg/dL (Normal) Range: 1.6-2.3 :04 Blood Glucose , Office (87061) Blood Glucose , Office 111 (Normal) :04 HgA1C , Office (28810) HgA1C , Office 5.5 % (Normal) Range: 4.6 - 7.1 :03 CBC W/Diff, Automated Comments: [facility] [address] [place], [place], [address] ; another doc Absolute Lymph 2.35 {X10_3/ul} [...] (Normal) Range: 4.4-11.0 :03 Protein+Creatinine Ratio,Urine Comments: [facility] [address] [place], [place], [address] PROT:CRE RATIO 403 {mg/g_CRE} (Abnormal) Range: 0-200 PROTEIN,UR.RAN. < 6.0 mg/dL (Normal) UR CREAT 13.90 mg/dL (Normal) 36-Wub-42481:03 PTH,INTACT Comments: [facility] [address] [place], [place], [address] PTH,Intact 34 pg/mL (Normal) Range: 14-72 81-Cqq-56936:03 Renal Profile Comments: [facility] [address] [place], [place], [address] CO2 26.0 mmol/L (Normal) Range: 21.0-32.0 CL [...] 7-18 GLU 109 mg/dL (Normal) Range: 70-110 15-Fpi-69185:03 Vitamin D 1,25-Dihydroxy Comments: [facility] (refer to report for specific site)refer to report for address and phone number VITD 69318 48.5 pg/mL (Normal) Range: 19.9-79.3 Comments: Performed at: [address] [id number] Director: Navdeep Medley MD, Phone: [phone] 26-Yte-745086:06 Metabolic Panel, Comprehensive Comments: PATIENT NOT FASTINGPERFORMED BY: LabCoSaint Peter's University HospitalJlocap4432 [facility] [id number] (43654) ALT (SGPT) 11 [iU]/L (Normal) Range: 0-32 [...] Glucose, Serum 78 mg/dL (Normal) Range: 65-99 62-Wuu-085027:06 CBC, Platelets & Auto Diff Comments: PATIENT NOT FASTINGPERFORMED BY: [facility] Oyeqlk4287 [facility] [id number] (99357) Immature Grans (Abs) 0.0 {x10E3/uL} (Normal) Range: [...] 3.77-5.28 WBC 9.3 {x10E3/uL} (Normal) Range: 3.4-10.8 71-Iny-331010:06 TSH (01224) Comments: PATIENT NOT FASTINGPERFORMED BY: EMIL LabCointhinc70 [facility] [id number] TSH 3.080 {uIU/mL} (Normal) Range: 0.450-4.500 52-Srr-468559:56 HgA1C , Office (59604) HgA1C , Office 5.5 % (Normal) Range: 4.6 - 7.1 11-Jcd-177133:56 Blood Glucose , Office (19134) Blood Glucose , Office 81 (Normal) :09 LIPID PANEL (46654) Comments: PATIENT WAS FASTINGPERFORMED BY: xAd LabCoLetaoOoxfmr1653 [facility] [id number] LDL/HDL Ratio 2.0 {ratio_units} (Normal) Range: 0.0-3.2 [...] PANEL, COMPREHENSIVE Comments: PATIENT WAS FASTINGPERFORMED BY: LabCoSaint Peter's University HospitalHhxtbd7739 [facility] [id number] (32913) ALT (SGPT) 15 [iU]/L (Normal) Range: 0-32 [...] Glucose, Serum 104 mg/dL (Abnormal) Range: 65-99 51-Rnk-71522:04 METABOLIC PANEL, COMPREHENSIVE Comments: fax to Dr Henry; PATIENT WAS FASTINGPERFORMED BY: [facility] Uthaep4262 [facility] [id number] (65671) ALT (SGPT) 16 [iU]/L (Normal) Range: 0-32 [...] CREATININE RATIO Comments: PATIENT WAS FASTINGPERFORMED BY: [employer] Wuoxhy7373 [facility] IncUnc Health Southeasternin [place] [id number] (50542) AND (47153) Microalb/Creat Ratio <6.3 {mg/g_creat} (Normal) Range: 0.0-30.0 Microalbumin, Urine <3.0 ug/mL (Normal) Creatinine, Urine 48.0 mg/dL (Normal) :04 HGB A1C (70691) Comments: PATIENT WAS FASTINGPERFORMED BY: [employer] Ldhunl2176 [address] [id number] Hemoglobin A1c 5.7 % (Abnormal) Range: 4.8-5.6 Comments: . Pre-diabetes: 5.7 - 6.4 Diabetes: >6.4 Glycemic control for adults with diabetes: <7.0 :04 CALCIFEDIOL (05578) Comments: PATIENT WAS FASTINGPERFORMED BY: [employer] Umaljj9548 [address] [facility] [place] [id number] Vitamin D, 25-Hydroxy 24.2 ng/mL (Abnormal) Range: 30.0-100.0 Comments: Vitamin D deficiency has been defined by the [place] of[place]icine and an Endocrine Society practice guideline as alevel of serum 25-OH vitamin D less than 20 ng/mL (1,2).The Endocrine Society went on to further define vitamin Dinsufficiency as a level between 21 and 29 ng/mL (2).1. IOM ([place]). 2010. Dietary reference intakes for calcium and D. [place]: The National Academies Press.2. Azael MF, Leslee NC, Hillary PHILLIPS, et al. Evaluation, treatment, and prevention of vitamin D deficiency: an Endocrine Society clinical practice guideline. JCEM. 2010; 96(7):1911-30. :04 TSH (THYROID STIMULATING Comments: PATIENT WAS FASTINGPERFORMED BY: LabCoZenter Rssnzn1184 [address] [facility] InstituteDublin [place] [id number] HORMONE) (28539) TSH 2.710 {uIU/mL} (Normal) Range: 0.450-4.500 :04 LIPID PANEL (53847) Comments: PATIENT WAS FASTINGPERFORMED BY: TutorGroupSaint Peter's University HospitalIblfns3518 [facility] [id number] LDL/HDL Ratio 1.7 {ratio_units} (Normal) Range: 0.0-3.2 [...] AUT DIFF Comments: PATIENT WAS FASTINGPERFORMED BY: Precyse6370 [facility] [id number] (39606) Immature Grans (Abs) 0.0 {x10E3/uL} (Normal) Range: [...] up testing of positive sera with both AZ-3 and MPO- ANCA enzyme immunoassays. As many as 5% serumsamp les are positive only by EIA. Ref. AM J Clin Ofmeoz2897;111:507-513. CYTOPLASMIC Ab <1:20 {titer} (Normal) :28 Anti-dsDNA Ab Comments: [facility] (refer to report for specific site)refer to report for address and phone number dsDNA AB <1 {IU/mL} (Normal) Range: 0-9 Comments: Negative <5 Equivocal 5 - 9 Positive >9Performed at: [address] [id number] D irector: Junior Valera PhD, Phone: [phone] :28 Complement C3 Comments: Is Patient Fasting? [facility] (refer to report for specific site)refer to report for address and phone number COMP C3 127 mg/dL (Normal) Range: 82-167 Comments: Performed at: CB - [facility] [address]u7051 [place], [place] [id number] Director: Junior Valera PhD, Phone: [phone] :28 Complement C4 Comments: Is Patient Fasting? [...] electrophoresis scan will follow via computer,mail, or information architect delivery. LEOPOLDO RESULT,S Comment: (Normal) Comments: Presence of monoclonal protein is unclear at this time. Suggest repeat in 3 to 6 months if clinically indicated. A/G RATIO 0.9 (Normal) Range: 0.7-1.7 GLOBULIN, TOTAL 3.8 g/dL (Normal) Range: 2.2-3.9 M-SPIKE (Normal) Comments: Not Observed GAMMA GLOBULIN 1.4 g/dL (Normal) Range: 0.4-1.8 BETA GLOBULIN 1.3 g/dL (Normal) Range: 0.7-1.3 YDEVW-2-FTQJ 0.9 g/dL (Normal) Range: 0.4-1.0 YISLC-6-FDVM 0.2 g/dL (Normal) Range: 0.0-0.4 ALBUMIN 3.4 g/dL (Normal) Range: 2.9-4.4 IMMUNOGL M 44 mg/dL (Normal) Range: 26-217 IMMUNO A 614 mg/dL (Abnormal) Range: 87-352 IMMUNO G 1353 mg/dL (Normal) Range: 700-1600 PROTEIN,TOTAL 7.2 g/dL (Normal) Range: 6.0-8.5 :28 Protein+Creatinine Ratio,Urine Comments: [facility] [address] [place], [place], [id number] PROT:CRE RATIO 128 {mg/g_CRE} (Normal) Range: 0-200 PROTEIN,UR.RAN. 6.5 mg/dL (Normal) UR CREAT 50.60 mg/dL (Normal) :46 RENAL FUNCTION PANEL (52904) Comments: PATIENT NOT FASTINGPERFORMED BY: [facility]6370 [facility] [id number] Phosphorus, Serum 4.2 mg/dL (Normal) Range: 2.5-4.5 :46 PT (PROTHROMBIN TIME) (47828) Comments: PATIENT NOT FASTINGPERFORMED BY: [facility]6370 [facility] [id number] Prothrombin Time 10.9 {sec} (Normal) Range: 9.1-12.0 INR 1.1 (Normal) Range: 0.8-1.2 Comments: Reference interval is for non-anticoagulated patients. . Suggested INR therapeutic range for Vitamin K anta gonist therapy: Standard Dose (moderate intensity therapeutic range): 2.0 - 3.0 Higher intensity therapeutic range 2.5 - 3.5 :46 METABOLIC PANEL, COMPREHENSIVE Comments: PATIENT NOT FASTINGPERFORMED BY: [facility]6370 [facility] [id number] (68068) ALT (SGPT) 24 [iU]/L (Normal) Range: 0-32 [...] Glucose, Serum 109 mg/dL (Abnormal) Range: 65-99 45-Zdy-609067:46 CBC, PLATELETS & AUT DIFF Comments: PATIENT NOT FASTINGPERFORMED BY: [facility] Iaigtr3579 [facility] [id number] Information: [id number], [id number] (44211) Immature Grans (Abs) 0.0 {x10E3/uL} (Normal) Range: [...] (Normal) Range: 3.4-10.8 :23 HgA1C , Office (67491) HgA1C , Office 5.4 % (Normal) Range: 4.6 - 7.1 :16 CBC-Complete Blood Cnt No Diff Comments: [facility] [address] [place], [address] MPV 8.8 fL (Normal) Range: [...] 4.4-11.0 :16 Serum Creatinine AND GFR Comments: [facility] [address] [place], [place], [address] Estimated CRCL 27.75 ml/min (Normal) EST GFR - AA 37 mL/min (Abnormal) Comments: GFR Calc EST GFR 30 mL/min (Abnormal) Comments: Non- GFR Calc CREAT,SERUM 1.77 mg/dL (Abnormal) Range: 0.55-1.20 Comments: The validity of the calculated GFR AND GFRAA in patients over70 years has not been determined. Clinical correlation isessential. 08-Zrt-719129:15 Bedside Glucose Comments: [facility] LaboratoryPoint of [address] [place], [place] [address] BEDSIDE GLU 128 mg/dL (Abnormal) Range: 70-110 Comments: Policy and Physicians Orders followedMANAGEMENT OF PATIENT CARE PER NURSING PROTOCOL HYSTERECTOMY SPECIMEN See Note (Normal) Comments: [facility] [address] [place], [address] :39 Comments: Patient: ELIZABETH TORO : 1950 (65/F) Acct Num: [id number] Phys: Gonsalo PROCTOR,Gm Unit Num: [id number] Loc: MS1 YE617-4 Specimen: [id number] Received: 06/22/161336 Spec Ty pe: HYSTERECT TISSUES TISSUES: COMMENT Please make reference to previous specimen ([id number]) endometrial biopsy with diagnosis of consistent with atrophic endometrium and ([id number]) e ndometrium andpolyp, excision with diagnosis of [...] measures 1.2 x 0.7 x 0.6 cm. 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 / TONG:stormy 06/22/16 TC:1 CPT:66410 HEADER OPERATION: Lap robotic hysterectomy, BSO PRE-OP [...] Signed Sivakumar Mallory 06/23/16 <signature on file> 28-Dsy-96723:31 Bedside Glucose Comments: [facility] LaboratoryPoint of [address] [place] [address] BEDSIDE GLU 89 mg/dL (Normal) Range: 70-110 Comments: Physician Notified VBRBMANAGEMENT OF PATIENT CARE PER NURSING PROTOCOL 09-Ltg-525572:31 CBC-Complete Blood Cnt No Diff Comments: [facility] [address] [place], [place], [address] MPV 10.1 fL (Normal) Range: 6.2-12.0 PLT [...] 4.2-5.4 WBC 7.6 K/mm3 (Normal) Range: 4.4-11.0 88-Hjf-221507:31 Comprehensive Metabolic Profil Comments: [facility] [address] [place], [address] GAP 8 (Normal) Range: 5-15 CO2 24.0 [...] 7-18 GLU 87 mg/dL (Normal) Range: 70-110 99-Nsf-932337:31 Hemoglobin A1c Comments: [facility] [address] [place], [address] HGB A1C 5.6 % (Normal) Range: 4.2-6.3 :31 Partial Thromboplast Time Comments: [facility] [address] [place], [address] PTT 27.7 s (Normal) Range: 24.1-36.2 :31 Prothrombin Time w/INR Comments: [facility] [address] [place], [address] INR 1.1 (Normal) PROTIME 13.4 s (Normal) Range: 11.7-14.9 54-Wuz-418152:31 Thyroid Stim Hormone (TSH) Comments: [facility] [address] [place], [address] TSH 2.46 {uIU/mL} (Normal) Range: 0.358-3.74 37-Jzq-009393:31 Type AND Screen Comments: Surgery Date: 06/22/16Date of Last Transfusion (if within last 3 months) NHx of Preganancy in last 3 Months NoEver experience any problems with transfusion(s)? NHx of Transfusion in last 3 Months N Reason for Type AND Screen/Red Cells: SURGERYTime: 0600SURGICAL PROCEDURE: [facility] [address] [place], [address] Antibody Screen NEGATIVE (Normal) BLOOD TYPE GEL A NEGATIVE (Normal) 93-Qfx-736334:28 Comprehensive Metabolic Profil Comments: Order Date: 06/10/16Order Date: 06/10/16[facility] [address] [place], [address] GAP 5 [...] 7-18 GLU 79 mg/dL (Normal) Range: 70-110 61-Att-078188:58 CBC W/Diff, Automated Comments: [facility] [address] [place], [place], [address] Absolute Lymph 2.98 {X10_3/ul} (Normal) Range: 0.83-4.51 [...] 4.2-5.4 WBC 8.7 K/mm3 (Normal) Range: 4.4-11.0 80-Rel-748551:58 Comprehensive Metabolic Profil Comments: Is Patient Taking Vitamins or Folic Acid Supplements? [facility] [address]ll[address] [facility] [place], [place], [id number] GAP 8 (Normal) Range: 5-15 CO2 29.0 [...] Range: 70-110 :58 Erythrocyte Sed Rate Comments: [facility] [address] [place], [place], [address] SED RATE 25 mm/h (Normal) Range: 0-30 17-Ztd-318995:58 Folates, (Folic Acid) Comments: Is Patient Taking Vitamins or Folic Acid Supplements? [facility] [address] [place], [place], [address] FOLATES 9.60 ng/mL (Normal) Range: 3.1-17.5 09-Rbc-614872:58 Thyroid Stim Hormone (TSH) Comments: Is Patient Taking Vitamins or Folic Acid Supplements? [facility] [address] [place], [address] TSH 2.58 {uIU/mL} (Normal) Range: 0.358-3.74 27-Btn-765713:58 Vitamin B12 543 pg/mL (Normal) Comments: [facility] [address] [place], [place], [address] Range: 211-911 37-Kar-563060:07 Urinalysis, Office (17265) UA - LEUKOCYTE ESTERASE Trace (Normal) UA - NITRITE Negative (Normal) URINE UROBILINGN SHARIFA TIMED Normal mg/dL (Normal) UA - PROTEIN Negative mg/dL (Normal) UA - PH 6.5 (Normal) UA - BLOOD Hemolyzed Trace (Normal) UA - SPECIFIC GRAVITY 1.005 (Normal) UA - KETONES Negative mg/dL (Normal) UA - BILIRUBIN Negative (Normal) UA - GLUCOSE Negative (Normal) 12-Ups-479813:04 URINE VERÓNICA CULTURE-SHARIFA COL Comments: PATIENT NOT FASTINGPERFORMED BY: EMIL [facility] [address] [place] [id number] Information: SRC:[facility] [id number] COUNT (80327) Antimicrobial MIHEAD (Normal) Comments: S = Susceptible; [...] (Abnormal) Urine Final report Culture,Comprehensive (Abnormal) EGD ([facility]) See Note (Normal) Comments: [facility] [address] [place], [address]:04 Comments: Patient: ELIZABETH TORO : 1950 (65/F) Acct Num: [id number] Phys: Junior Pena Unit Num: [id number] Loc: LABSPEC Specimen: [id number] Received: 04/21/16 - 1638 Spec Type: EGD [...] in one cassette. / TONG:stormy 04/22/16 TC:3 CPT:22613 HEADER OPERATION: EGD with biopsy PRE-OP DIAGNOSIS: Dysphagia TISSUE SUBMITTED: Esophageal biopsy, R/O EE MICROSCOPIC DESCRIP TION Slides are reviewed. MICROSCOPIC DIAGNOSIS Esophageal biopsy: Fragments of squamous epithelium with mild chronic inflammation. See comment. SJ:stormy 04/23/16 Signed Sivakumar Mallory 04/23/16 <signature on file> CERVICAL See Note (Normal) Comments: [facility] [address], [address]:15 Comments: Patient: ELIZABETH TORO : 1950 (65/F) Acct Num: [id number] Phys: Gonsalo PROCTOR,[facility] Unit Num: [id number] Loc: [facility] Specimen: [id number] Received: 04/13/161335 Spec Type: CER V TISSUES [...] one cassette. / AM: 04/13/16 TC:5 CPT: 62094 x 2 HEADER OPERATION: Hysteroscopy, diagnostic, D AND C PRE-OP DIAGNOSIS: Postmenopausal bleeding TISSUE SUBMITTED: A - Endocervical curettings, B - Endometrial curettings and polyp [facility] DESCRIPTION Slides are reviewed. MICROSCOPIC DIAGNOSIS A. Endocervix, curettings: Strips of benign superficial endocervix. Rare strips of benign superficial ectocervix. B. Endom etrium and polyp, excision: Benign endometrial polyp with simple cystic hyperplasia without atypia. Scant strips of benign superficial endometrium. AM: 04/14/16 Signed Ras Easley 04/14/16 <signature on file> 01-Azf-40568:04 Bedside Glucose Comments: [facility] LaboratoryPoint of [address] [place] [address] BEDSIDE GLU 98 mg/dL (Normal) Range: 70-110 Comments: No Action RequiredMANAGEMENT OF PATIENT CARE PER NURSING PROTOCOL :08 CBC-Complete Blood Cnt No Diff Comments: [facility] [address] [place], [address] MPV 9.4 fL (Normal) Range: [...] Range: 4.4-11.0 :08 Comprehensive Metabolic Profil Comments: [facility] [address] [place], [address] GAP 8 (Normal) Range: 5-15 [...] Range: 70-110 :08 Partial Thromboplast Time Comments: [facility] [address] [place], [address] PTT 29.8 s (Normal) Range: 24.1-36.2 :08 Prothrombin Time w/INR Comments: [facility] [address] [place], [address] INR 1.1 (Normal) PROTIME 13.6 s (Normal) Range: 11.7-14.9 :08 Type AND Screen Comments: Surgery Date: 04/13/16Date of Last Transfusion (if within last 3 months) NHx of Preganancy in last 3 Months NoEver experience any problems with transfusion(s)? NHx of Transfusion in last 3 Months N Reason for Type AND Screen/Red Cells: SURGERYTime: 1015SURGICAL PROCEDURE: [facility] [address] [place], [address] Antibody Screen NEGATIVE (Normal) BLOOD TYPE GEL A NEGATIVE (Normal) ENDOMETRIAL See Note (Normal) Comments: [facility] [address] [place], [address] 6:00 BX/CURETTINGS Comments: Patient: ELIZABETH TORO : 1950 (65/F) Acct Num: [id number] Phys: Gonsalo PROCTOR,[facility] Unit Num: [id number] Loc: LABSPEC Specimen: [id number] Received: 03/26/16 - 1600 Spec Type: ENDOM [...] in one cassette. / AM:stormy 03/27/16 TC:4 CPT:15856 HEADER OPERATION: Endometrial biopsy PRE-OP DIAGNOSIS: N95.0 TISSUE SUBMITTED: EMB MICROSCOPIC DESCRIPTION Slides are r eviewed. MICROSCOPIC DIAGNOSIS Endometrial biopsy: Scant strips of benign endometrial epithelium, consistent with atrophic endometrium. Fragments of benign endocervical epithelium and mucous. 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 of containers..01 CYTYC Thin Prep VialLabCorp (refer to report for specific site)refer to report for address and phone number HPV RFLX Comment (Normal) Comments: The HPV DNA reflex criteria were not met with this specimenresult therefore, no HPV testing was performed.Performed at: [address] [id number] Director: Annamaria Menezes MD, Phone: [phone] PAPSMR Comment (Normal) Comments: The Pap smear [...] system. PERFORM Comment (Normal) Comments: Adeline Singleton, Taxonomist (ASCP) ADEQ Comment (Normal) Comments: Satisfactory for evaluation. DIAGN Comment (Normal) Comments: NEGATIVE FOR INTRAEPITHELIAL LESION AND MALIGNANCY. 44-Kdn-78128:20 Urinalysis, Complete Comments: How was Urine Obtained? SUPERVISOR SHIPPING ROOM TO [facility]CIFYDet[facility] [address] [place], [address] MUCUS, URINE 0 SEEN {/hpf} [...] (Normal) CLARITY Clear (Normal) COLOR Straw (Normal) 44-Xkt-637978:50 Basic Metabolic Profile (BMP) Comments: [facility] [address] [place], [address] GAP 7 (Normal) Range: 5-15 [...] <126 mg/dLsuggests IMPAIRED HOMEOSTASIS per A.D.A. criteria. 77-Hjg-915797:50 CBC W/Diff, Automated Comments: [facility] [address] [place], [address] Absolute Lymph 3.53 {X10_3/ul} (Normal) Range: 0.83-4.51 [...] K/mm3 (Normal) Range: 4.4-11.0 :02 Rapid Flu (19944 x 2) Influenza A Ag negative (Normal) 9-Mit-181579:31 SJOGREN ANTIBOIDIES Comments: PATIENT NOT FASTINGPERFORMED BY: LabCoSaint [facility]'s University HospitalWovykk0515 [facility] [id number] Information: [id number] (ANTI-SS-A/ANTI-SS-B) (79526) Sjogren's Anti-SS-B <0.2 {AI} (Normal) Range: 0.0-0.9 Sjogren's Anti-SS-A <0.2 {AI} (Normal) Range: 0.0-0.9 :28 Rapid Strep Test, Office (50366) Rapid Strep Test, Office Negative (Normal) 7-Tbr-151524:37 Throat Culture (58994) Comments: PATIENT NOT FASTINGPERFORMED BY: [facility]6370 [facility] [id number] Information: SRC:THRT [id number] Result 1 BETAGB (Abnormal) Comments: Beta hemolytic [...] 2011) Upper Respiratory Culture Final report (Abnormal) 6-Alg-259681:45 Basic Metabolic Profile (BMP) Comments: 'TROP' Serial specimen #1, #2, #3, or #4: 1[facility] [address] [place], [address] GAP 9 (Normal) Range: 5-15 CO2 23.0 [...] 7-18 GLU 92 mg/dL (Normal) Range: 70-110 0-Bea-761685:45 CBC W/Diff, Automated Comments: [facility] [address] [place], [place], [address] Absolute Lymph 2.03 {X10_3/ul} (Normal) Range: 0.83-4.51 [...] Serial specimen #1, #2, #3, or #4: [address] [place] [address] [address] [facility] [place], [address] TSH 1.50 {uIU/mL} (Normal) Range: 0.358-3.74 :45 Troponin-I Comments: 'TROP' Serial specimen #1, #2, #3, or #4: [address] [place] [address] [address] [place], [place], [address] TROPONIN-I < 0.02 ng/mL (Normal) Comments: TROPONIN-I EXPECTED VALUES <0.05 NEGATIVE 0.06 - 0.59 AT RISK OF DE > OR = 0.60 SUGGEST DE 98-Lkn-72669:53 Pap IG (Image Comments: Source.............Cervical;EndocervicalNo. of containers..01 CYTYC Thin Prep VialPATIENT NOT FASTINGPERFORMED BY: =G [facility] [address] [id number] BY: WB L Guided) [facility] [address] [id number] Note: PAPSMR (Normal) Comments: The Pap smear [...] of partially obscuring exudate are present.Z00.00Adeline Singleton Taxonomist (ASCP) :01 HgA1C , Office (36029) HgA1C , Office 5.9 % (Normal) Range: 4.6 - 7.1 :00 Blood Glucose , Office (32032) Blood Glucose , Office 126 (Normal) :53 Thin Prep Pap Comments: Source.............Cervical;EndocervicalNo. of containers..01 CYTYC Thin Prep VialPATIENT NOT FASTINGPERFORMED BY: =G [facility] Urnubjgfbz625 [facility] [id number] BY: SARAY Jose (17733) [facility] Yalghajeot434 [facility] [id number] Information: [id number] Age Gdln ACOG Testing AGE4 (Normal) Comments: <21 or >65 or no age provided :34 METABOLIC PANEL, Comments: PATIENT WAS FASTINGPERFORMED BY: EMIL [facility] Uhobge8949 [facility] [id number] Information: [id number] COMPREHENSIVE (49657) ALT (SGPT) 18 [iU]/L (Normal) Range: 0-32 [...] 83 mg/dL (Normal) Range: 65-99 :34 CALCIFIDIOL (10095) VIT D 25 Comments: PATIENT WAS FASTINGPERFORMED BY: LabCoSaint Peter's University HospitalZhkzmo0518 [facility] [id number] Vitamin D, 25-Hydroxy 59.6 ng/mL (Normal) Range: 30.0-100.0 Comments: Vitamin D deficiency has been defined by the [place] of[facility]cine and an Endocrine Society practice guideline as alevel of serum 25-OH vitamin D less than 20 ng/mL (1,2).The Endocrine Society went on to further define vitamin Dinsufficiency as a level between 21 and 29 ng/mL (2).1. IOM ([place] of Medicine). 2010. Dietary reference intakes for calcium and D. [place]: The National Academies Press.2. Azael MF, Leslee NC, Hillary PHILLIPS, et al. Evaluation, treatment, and prevention of vitamin D deficiency: an Endocrine Society clinical practice guideline. JCEM. 2010; 96(7):1911-30. :37 HgA1C , Office (50099) HgA1C , Office 6.1 % (Normal) Range: 4.6 - 7.1 :37 Blood Glucose , Office (45498) Blood Glucose , Office 107 (Normal) :27 TSH (THYROID STIMULATING Comments: PATIENT WAS FASTINGPERFORMED BY: [facility]6370 [facility] [id number] HORMONE) (32118) TSH 2.480 {uIU/mL} (Normal) Range: 0.450-4.500 :27 CALCIFEDIOL (79543) Comments: PATIENT WAS FASTINGPERFORMED BY: [facility]Asc[facility]6370 [facility] [id number] Vitamin D, 25-Hydroxy 16.7 ng/mL (Abnormal) Range: 30.0-100.0 Comments: Vitamin D deficiency has been defined by the [place] of[facility]cine and an Endocrine Society practice guideline as alevel of serum 25-OH vitamin D less than 20 ng/mL (1,2).The Endocrine Society went on to further define vitamin Dinsufficiency as a level between 21 and 29 ng/mL (2).1. IOM ([place] of Medicine). 2010. Dietary reference intakes for calcium and D. [place]: The National Academies Press.2. Azael MF, Leslee NC, Hillary PHILLIPS, et al. Evaluation, treatment, and prevention of vitamin D deficiency: an Endocrine Society clinical practice guideline. JCEM. 2010; 96(7):1911-30. :27 LIPID PANEL (72253) Comments: PATIENT WAS FASTINGPERFORMED BY: [facility]6370 [facility] [id number] LDL/HDL Ratio 1.2 {ratio_units} (Normal) Range: 0.0-3.2 [...] PANEL, COMPREHENSIVE Comments: PATIENT WAS FASTINGPERFORMED BY: TutorGroupSaint Peter's University HospitalSjkvqc3831 [facility] [id number] (82986) ALT (SGPT) 19 [iU]/L (Normal) Range: 0-32 [...] & MANUAL Comments: PATIENT WAS FASTINGPERFORMED BY: TutorGroupSaint Peter's University HospitalOwylcf6569 [facility] [id number] Information: [id number] DIFF (68682) Immature Grans (Abs) 0.0 {x10E3/uL} (Normal) Range: [...] 3.77-5.28 WBC 7.0 {x10E3/uL} (Normal) Range: 3.4-10.8 64-Phs-664100:31 CREATININE CLEARANCE Comments: PATIENT NOT FASTINGPERFORMED BY: LabCoSaint Peter's University HospitalWsktsh2830 [facility] [id number] Information: [id number] START @9AM FINISH 01/28/15@9 AM (45675) Creatinine Clearance 53 mL/min (Abnormal) Range: 88-128 [...] Hour Urine Comments: PATIENT NOT FASTINGPERFORMED BY: [facility]6370 [facility] [id number] (29307) Prot,24hr calculated 357.5 {mg/24_hr} (Abnormal) Range: 30.0-150.0 Protein,Total,Urine 13.0 mg/dL (Normal) Range: 0.0-15.0 :28 HgA1C , Office (48310) HgA1C , Office 5.9 % (Normal) Range: 4.6 - 7.1 :28 Blood Glucose , Office (25993) Blood Glucose , Office 136 (Normal) :53 TSH (16112) Comments: PATIENT WAS FASTINGPERFORMED BY: [facility]6370 [facility] [id number] TSH 4.370 {uIU/mL} (Normal) Range: 0.450-4.500 :53 MICROALBUMIN: CREATININE RATIO Comments: PATIENT WAS FASTINGPERFORMED BY: [facility]6370 [facility] [id number] (62930) AND (86133) Microalb/Creat Ratio 5.0 {mg/g_creat} (Normal) Range: 0.0-30.0 Microalbumin, Urine 4.5 ug/mL (Normal) Range: 0.0-17.0 Creatinine, Urine 90.5 mg/dL (Normal) Range: 15.0-278.0 :53 METABOLIC PANEL, COMPREHENSIVE Comments: PATIENT WAS FASTINGPERFORMED BY: [facility]6370 [facility] [id number] (92972) ALT (SGPT) 20 [iU]/L (Normal) Range: 0-32 [...] mg/dL (Abnormal) Range: 65-99 07-Jan-20158:53 LIPID PANEL (20195) Comments: PATIENT WAS FASTINGPERFORMED BY: [facility]6370 [facility] [id number] LDL/HDL Ratio 1.4 {ratio_units} (Normal) Range: 0.0-3.2 [...] DIFF WBC Comments: PATIENT WAS FASTINGPERFORMED BY: [employer] [facility] [id number] Information: [id number] (37959) Immature Grans (Abs) 0.0 {x10E3/uL} (Normal) Range: [...] 7.8 {x10E3/uL} (Normal) Range: 3.4-10.8 :53 CALCIFIDIOL (81350) VIT D 25 Comments: PATIENT WAS FASTINGPERFORMED BY: [employer] Slvhys6126 [facility] [id number] Vitamin D, 25-Hydroxy 22.5 ng/mL (Abnormal) Range: 30.0-100.0 Comments: Vitamin D deficiency has been defined by the [place] ofMedicine and an Endocrine Society practice guideline as alevel of serum 25-OH vitamin D less than 20 ng/mL (1,2).The Endocrine Society went on to further define vitamin Dinsufficiency as a level between 21 and 29 ng/mL (2).1. IOM ([place] of Medicine). 2010. Dietary reference intakes for calcium and D. [place]: The National Academies Press.2. Azael MF, Leslee LEMON, Hillary PHILLIPS, et al. Evaluation, treatment, and prevention of vitamin D deficiency: an Endocrine Society clinical practice guideline. JCEM. 2010; 96(7):1911-30. :22 HgA1C , Office (89184) HgA1C , Office 6.0 % (Normal) Range: 4.6 - 7.1 :22 Blood Glucose , Office (19631) Blood Glucose , Office 132 (Normal) :27 Blood Glucose , Office (05117) Blood Glucose , Office 114 (Normal) :27 HgA1C , Office (01724) HgA1C , Office 5.9 % (Normal) Range: 4.6 - 7.1 :00 Basic Metabolic Panel (8) Comments: PATIENT NOT FASTINGPERFORMED BY: CB [facility] Edlmdv0322 [facility] [id number] BY: [facility] [address] [id number] Calcium, Serum 9.8 mg/dL (Normal) Range: 8.6-10.2 [...] 287 {mOsmol/kg} Comments: PATIENT NOT FASTINGPERFORMED BY: edenes Htsxdm0650 [facility] [id number] BY: [facility] [id number] 00 (Normal) Range: 280-301 : Osmolality, Urine 259 {mOsmol/kg} Comments: PATIENT NOT FASTINGPERFORMED BY: edenes Agzoxz9173 [facility] [id number] BY: [facility] [id number] 00 (Normal) Comments: 24 hr : 300 - 900 Random: 50 - 1400 After 12hr fluid restriction: >850 : Sodium, Urine 11 mmol/L (Normal) Comments: PATIENT NOT FASTINGPERFORMED BY: edenesHoward [place] 6815770 [facility] [id number] BY: [address] [id number] 00 2-Ley-805308:06 Metabolic Panel, Basic Comments: PATIENT NOT FASTINGPERFORMED BY: [employer] Wewyws8939 [facility] [id number] Information: [id number] (92481) Calcium, Serum 9.9 mg/dL (Normal) Range: 8.6-10.2 [...] 4.2-5.4 WBC 9.6 K/mm3 (Normal) Range: 4.4-11.0 73-Fbw-387778:34 CMP Comments: 'TROP' Serial specimen #1, #2, [...] <0.05 NEGATIVE0.06 - 0.59 AT RISK OF DE> OR = 0.60 SUGGEST DE :34 TSH 2.32 {uIU/mL} (Normal) Comments: 'TROP' Serial specimen #1, #2, #3, or #4: 1 Range: 0.358-3.74 01-May-20140:00 Microscopic Examination Comments: PATIENT WAS FASTINGPERFORMED BY: LabCo Qkqypj7857 [facility] [id number] Bacteria Few (Normal) Mucus Threads Present (Normal) Epithelial Cells (non renal) 0-10 {/hpf} (Normal) Range: 0 - 10 RBC 0-2 {/hpf} (Normal) Range: 0 - 2 WBC 11-30 {/hpf} (Abnormal) Range: 0 - 5 50-Kej-443808:15 TSH (19164) Comments: PATIENT WAS FASTINGPERFORMED BY: [facility] Dgmiua8323 [facility] [place] [id number] TSH 3.310 {uIU/mL} (Normal) Range: 0.450-4.500 01-Uvb-782513:15 CALCIFIDIOL (12393) VIT D 25 Comments: PATIENT WAS FASTINGPERFORMED BY: [facility] Gqezaz5678 [facility] [id number] Vitamin D, 25-Hydroxy 35.7 ng/mL (Normal) Range: 30.0-100.0 Comments: Vitamin D deficiency has been defined by the [place] of[facility] and an Endocrine Society practice guideline as alevel of serum 25-OH vitamin D less than 20 ng/mL (1,2).The Endocrine Society went on to further define vitamin Dinsufficiency as a level between 21 and 29 ng/mL (2).1. IOM ([place] of Medicine). 2010. Dietary reference intakes for calcium and D. [place]: The National Academies Press.2. Azael MF, Leslee LEMON, Hillary PHILLIPS, et al. Evaluation, treatment, and prevention of vitamin D deficiency: an Endocrine Society clinical practice guideline. JCEM. 2010; 96(7):1911-30. 04-Yzf-336331:15 URINALYSIS, W/ MICRO (69214) Comments: PATIENT WAS FASTINGPERFORMED BY: [facility] Scibvj6011 [facility] [place] [id number] Microscopic Examination See below: (Normal) Nitrite, Urine Positive (Abnormal) Bilirubin Negative (Normal) Urobilinogen,Semi-Qn 0.2 mg/dL (Normal) Range: 0.0-1.9 Ketones Negative (Normal) Occult Blood Negative (Normal) Glucose Negative (Normal) Protein Negative (Normal) Appearance Clear (Normal) WBC Esterase 2+ (Abnormal) pH 6.5 (Normal) Range: 5.0-7.5 Urine-Color Yellow (Normal) Specific [place] 1.015 (Normal) Range: 1.005-1.030 94-Lxk-386058:15 METABOLIC PANEL, COMPREHENSIVE Comments: PATIENT WAS FASTINGPERFORMED BY: TutorGroupNor-Lea General HospitalXfmokd0868 [facility] [id number] (16901) ALT (SGPT) 19 [iU]/L (Normal) Range: 0-32 [...] Glucose, Serum 118 mg/dL (Abnormal) Range: 65-99 51-Xeh-203554:15 LIPID PANEL (82296) Comments: PATIENT WAS FASTINGPERFORMED BY: TutorGroupSaint Peter's University HospitalOvskhw5299 [facility] [id number] LDL/HDL Ratio 1.7 {ratio_units} (Normal) Range: 0.0-3.2 LDL Cholesterol Calc 90 mg/dL (Normal) Range: 0-99 VLDL Cholesterol Hillary 33 mg/dL (Normal) Range: 5-40 HDL Cholesterol 53 mg/dL (Normal) Comments: According to ATP-III Guidelines, HDL-C >59 mg/dL is considered anegative risk factor for CHD. Triglycerides 166 mg/dL (Abnormal) Range: 0-149 Cholesterol, Total 176 mg/dL (Normal) Range: 100-199 41-Ueb-058258:15 CBC WITH MANUAL DIFF Comments: PATIENT WAS FASTINGPERFORMED BY: LabCoSaint Peter's University HospitalXptwja2598 [facility] [id number] Information: [id number] (08528) Immature Grans (Abs) 0.0 {x10E3/uL} (Normal) Range: [...] 3.77-5.28 WBC 7.0 {x10E3/uL} (Normal) Range: 3.4-10.8 51-Ztn-037586:20 Blood Glucose , Office (79306) Blood Glucose , Office 102 (Normal) 47-Gdj-540349:20 HgA1C , Office (46035) HgA1C , Office 6.0 % (Normal) Range: 4.6 - 7.1 9-Vzt-248878:27 URINE VERÓNICA CULTURE-IDENTIFICATN Comments: PATIENT NOT FASTINGPERFORMED BY: LabCoHoward Ville 6815770 [facility] [id number] Information: [id number] (90682) Result 1 NG36 (Normal) Comments: No growth in 36 - 48 hours. Urine Culture,Comprehensive Final report (Normal) 2-Rdg-041596:03 URINALYSIS (03832) URINALYSIS neg for all (Normal) 71-Fvs-65814:31 URINE VERÓNICA CULTURE-SHARIFA COL Comments: PATIENT NOT FASTINGPERFORMED BY: LabZentrick Iapzmh4191 [facility] [id number] Information: SRC:UR [id number] COUNT (55459) Antimicrobial MIHEAD (Normal) Comments: S = Susceptible; [...] Final report Culture,Comprehensive (Normal) :26 Urinalysis, Office (70241) UA - LEUKOCYTE ESTERASE Moderate (Normal) UA - NITRITE Negative (Normal) URINE UROBILINGN SHARIFA TIMED Normal mg/dL (Normal) UA - PROTEIN Negative mg/dL (Normal) UA - PH 5 (Abnormal) UA - BLOOD Hemolyzed Small (Normal) UA - SPECIFIC GRAVITY 1.025 (Normal) UA - KETONES Negative mg/dL (Normal) UA - BILIRUBIN Negative (Normal) UA - GLUCOSE Negative (Normal) :52 LIPID PANEL (05353) Comments: PATIENT WAS FASTINGPERFORMED BY: [employer]70 [facility] [id number] Information: [id number] LDL/HDL Ratio 2.1 {ratio_units} (Normal) Range: 0.0-3.2 LDL Cholesterol Calc 111 mg/dL (Abnormal) Range: 0-99 VLDL Cholesterol Hillary 31 mg/dL (Normal) Range: 5-40 HDL Cholesterol 53 mg/dL (Normal) Comments: According to ATP-III Guidelines, HDL-C >59 mg/dL is considered anegative risk factor for CHD. Triglycerides 156 mg/dL (Abnormal) Range: 0-149 Cholesterol, Total 195 mg/dL (Normal) Range: 100-199 :52 HEPATIC FUNCTION PANEL (34138) Comments: PATIENT WAS FASTINGPERFORMED BY: [employer] [facility] [id number] ALT (SGPT) 17 [iU]/L (Normal) Range: 0-32 AST (SGOT) 23 [iU]/L (Normal) Range: 0-40 Alkaline Phosphatase, S 57 [iU]/L (Normal) Range: 39-117 Bilirubin, Direct 0.08 mg/dL (Normal) Range: 0.00-0.40 Bilirubin, Total 0.3 mg/dL (Normal) Range: 0.0-1.2 Albumin, Serum 4.3 g/dL (Normal) Range: 3.6-4.8 Protein, Total, Serum 7.2 g/dL (Normal) Range: 6.0-8.5 :52 CALCIFEDIOL (35816) Comments: PATIENT WAS FASTINGPERFORMED BY: Gizmo5lin6370 [facility] [id number] Vitamin D, 25-Hydroxy 13.8 ng/mL (Abnormal) Range: 30.0-100.0 Comments: Vitamin D deficiency has been defined by the [place] of[place]icine and an Endocrine Society practice guideline as alevel of serum 25-OH vitamin D less than 20 ng/mL (1,2).The Endocrine Society went on to further define vitamin Dinsufficiency as a level between 21 and 29 ng/mL (2).1. IOM ([place] of Medicine). 2010. Dietary reference intakes for calcium and D. [place]: The National Academies Press.2. Azael MF, Leslee LEMON, Hillary PHILLIPS, et al. Evaluation, treatment, and prevention of vitamin D deficiency: an Endocrine Society clinical practice guideline. JCEM. 2010; 96(7):1911-30. 40-Hgc-532973:38 Blood Glucose , Office (33383) Blood Glucose , Office 114 (Normal) 13-Fgx-258855:38 HgA1C , Office (45206) HgA1C , Office 5.8 % (Normal) Range: 4.6 - 7.1 98-Dxl-662657:23 Urinalysis, Office (29362) UA - BILIRUBIN Negative (Normal) UA - BLOOD Hemolyzed Trace (Normal) UA - GLUCOSE Negative (Normal) UA - KETONES Negative mg/dL (Normal) UA - LEUKOCYTE ESTERASE Small (Normal) UA - NITRITE Negative (Normal) UA - PH 5.0 (Normal) UA - PROTEIN Negative mg/dL (Normal) UA - SPECIFIC GRAVITY 1.025 (Normal) URINE UROBILINGN SHARIFA TIMED Normal mg/dL (Normal) 88-Tqx-102714:50 Metabolic Panel, Basic Comments: PATIENT NOT FASTINGPERFORMED BY: LabCoSaint Peter's University HospitalWkybku4478 [facility] [id number] Information: [id number] (54072) Calcium, Serum 9.9 mg/dL (Normal) Range: 8.6-10.2 [...] Glucose, Serum 84 mg/dL (Normal) Range: 65-99 34-Bbm-593618:39 BRAIN WITHOUT CONTRAST Radiology Report See Note [...] Sweeney M.D.July 12, 2013 at 4:19:02 PM [phone] Signed PV/PV If you are the referring physician and would like to consult with theradiologist who provided this interpretation, please contact Petrona molina M.D. at [phone]. If this radiologist is unavailable, youwillbe directed to another radiologist to assist. If you are a patient with a question regarding this report, pleasecontactyour referring physician directly. Professional Interpretation Provided By: [employer], Phone , These documents contain legally protected [...] in one week; PATIENT NOT FASTINGPERFORMED BY: LabCoSaint Peter's University HospitalNlccka3029 [facility] [id number] Information: [id number] (08120) Calcium, Serum 9.7 mg/dL (Normal) Range: 8.6-10.2 [...] Panel, Basic Comments: PATIENT NOT FASTINGPERFORMED BY: [employer]Edge70 [facility] [id number] Information: [id number] (70553) Calcium, Serum 9.5 mg/dL (Normal) Range: 8.6-10.2 [...] (Abnormal) Range: 65-99 :29 HgA1C , Office (67121) HgA1C , Office 5.7 % (Normal) Range: 4.6 - 7.1 :14 TSH (89843) Comments: PATIENT NOT FASTINGPERFORMED BY: [facility] [id number] TSH 2.850 {uIU/mL} (Normal) Range: 0.450-4.500 65-Gwu-903032:14 CBC, Platelets & Auto Comments: PATIENT NOT FASTINGPERFORMED BY: [facility] Pjayav6873 Lacho AlfonsoFirstHealth [id number] Information: [id number] Diff (87390) Immature Grans (Abs) 0.0 {x10E3/uL} (Normal) Range: [...] 3.77-5.28 WBC 7.5 {x10E3/uL} (Normal) Range: 4.0-10.5 48-Jdc-364602:14 Metabolic Panel, Comprehensive Comments: PATIENT NOT FASTINGPERFORMED BY: LabCoSaint Peter's University HospitalRftwme3365 [facility] [id number] (85972) ALT (SGPT) 19 [iU]/L (Normal) Range: 0-32 [...] Glucose, Serum 105 mg/dL (Abnormal) Range: 65-99 55-Srf-256989:06 URINE VERÓNICA CULTURE-SHARIFA COL Comments: PATIENT NOT FASTINGPERFORMED BY: [facility]6370 [facility] [id number] Information: SRC:UR ADD [id number] COUNT (07387) Antimicrobial MIHEAD (Normal) Comments: S = Susceptible; [...] mL (Normal) Urine Final report Culture,Comprehensive (Normal) 52-Dbx-496620:09 Urinalysis, Office (88218) UA - BILIRUBIN Negative (Normal) UA - BLOOD Hemolyzed Moderate (Normal) UA - GLUCOSE Negative (Normal) UA - KETONES Negative mg/dL (Normal) UA - LEUKOCYTE ESTERASE Small (Normal) UA - NITRITE Negative (Normal) UA - PH 6.0 (Normal) UA - PROTEIN Negative mg/dL (Normal) UA - SPECIFIC GRAVITY 1.005 (Normal) URINE UROBILINGN SHARIFA TIMED 2 mg/dL (Normal) 5-Ytv-306797:04 Renal function Panel Comments: PATIENT NOT FASTINGPERFORMED BY: LabCoSaint Peter's University HospitalYorphz7840 [facility] [id number] Information: [id number] (88600) Albumin, Serum 4.1 g/dL (Normal) Range: 3.6-4.8 [...] Glucose, Serum 110 mg/dL (Abnormal) Range: 65-99 45-Hjf-984290:22 CALCIFEDIOL (91434) Comments: PATIENT NOT FASTINGPERFORMED BY: CB [facility] Ttxyqy6727 [address]k RoadDublin [place] [id number] Vitamin D, 25-Hydroxy 16.7 ng/mL (Abnormal) Range: 30.0-100.0 Comments: Vitamin D deficiency has been defined by the [place] ofC[facility] and an Endocrine Society practice guideline as alevel of serum 25-OH vitamin D less than 20 ng/mL (1,2).The Endocrine Society went on to further define vitamin Dinsufficiency as a level between 21 and 29 ng/mL (2).1. IOM ([place] of Medicine). 2010. Dietary reference intakes for calcium and D. [place]: The National Academies Press.2. Azael MF, Leslee LEMON, Hillary PHILLIPS, et al. Evaluation, treatment, and prevention of vitamin D deficiency: an Endocrine Society clinical practice guideline. JCEM. 2010; 96(7):1911-30. 90-Tvm-686136:22 MAGNESIUM (16859) Comments: PATIENT NOT FASTINGPERFORMED BY: CB [facility] Tokyih9244 Monk RoadDublin [place] [id number] Magnesium, Serum 2.3 mg/dL (Normal) Range: 1.6-2.6 50-Vna-759449:22 T4, FREE (THYROXINE) (12825) Comments: PATIENT NOT FASTINGPERFORMED BY: [facility] Bqtiac8007 Monk RoadDublin [place] [id number] T4,Free(Direct) 1.50 ng/dL (Normal) Range: 0.82-1.77 90-Piy-759594:22 T3, FREE (TRIDOTHYRONINE) (85722) Comments: PATIENT NOT FASTINGPERFORMED BY: CB [facility] Mcfkgx7085 Monk RoadDublin [place] [id number] Triiodothyronine,Free,Serum 2.6 pg/mL (Normal) Range: 2.0-4.4 57-Zzy-742603:22 TSH (10920) Comments: PATIENT NOT FASTINGPERFORMED BY: CB [facility] Paicki9398 Monk RoadDublin [place] [id number] TSH 1.920 {uIU/mL} (Normal) Range: 0.450-4.500 :22 CBC, Platelets & Auto Comments: PATIENT NOT FASTINGPERFORMED BY: EMIL [facility] Xpelaw7517 [address] [place] [id number] Information: [id number] Diff (55829) Immature Grans (Abs) 0.0 {x10E3/uL} (Normal) Range: [...] 3.77-5.28 WBC 8.5 {x10E3/uL} (Normal) Range: 4.0-10.5 20-Spn-355267:22 Metabolic Panel, Comprehensive Comments: PATIENT NOT FASTINGPERFORMED BY: EMIL [facility]Asc[facility]6370 [facility] [id number] (26340) ALT (SGPT) 21 [iU]/L (Normal) Range: 0-32 [...] Glucose, Serum 97 mg/dL (Normal) Range: 65-99 2-Feg-660654:20 METABOLIC PANEL, COMPREHENSIVE Comments: PATIENT WAS FASTINGPERFORMED BY: [facility]6370 [facility] [id number] (83899) ALT (SGPT) 19 [iU]/L (Normal) Range: 0-32 [...] Glucose, Serum 102 mg/dL (Abnormal) Range: 65-99 7-Ucd-516463:20 CBC WITH MANUAL DIFF Comments: PATIENT WAS FASTINGPERFORMED BY: [facility] Fesqau4343 [facility] [id number] Information: [id number] (75871) Immature Grans (Abs) 0.0 {x10E3/uL} (Normal) Range: [...] 3.77-5.28 WBC 7.4 {x10E3/uL} (Normal) Range: 3.4-10.8 6-Cei-131568:20 LIPID PANEL (07451) Comments: PATIENT WAS FASTINGPERFORMED BY: [employer] [facility] [id number] LDL/HDL Ratio 2.0 {ratio_units} (Normal) Range: 0.0-3.2 LDL Cholesterol Calc 109 mg/dL (Abnormal) Range: 0-99 VLDL Cholesterol Hillary 35 mg/dL (Normal) Range: 5-40 HDL Cholesterol 54 mg/dL (Normal) Comments: According to ATP-III Guidelines, HDL-C >59 mg/dL is considered anegative risk factor for CHD. Triglycerides 175 mg/dL (Abnormal) Range: 0-149 Cholesterol, Total 198 mg/dL (Normal) Range: 100-199 8-Vht-136270:20 TSH (28794) Comments: PATIENT WAS FASTINGPERFORMED BY: Gizmo5lin6370 [facility] [id number] TSH 2.720 {uIU/mL} (Normal) Range: 0.450-4.500 15-Yrc-545941:22 HgA1C , Office (99252) HgA1C , Office 6.0 % (Normal) Range: 4.6 - 7.1 79-Axz-498191:22 Blood Glucose , Office (31462) Blood Glucose , Office 249 (Normal) Comments: has eaten in last 2h 65-Gxc-804828:20 CHEST, PA AND LATERAL Radiology Report See [...] Signed:Anibal Lan M.D.November 022012 at 8:14:34 AM [phone] Signed GP/GP If you are the referring physician and would like to consult with theradiologist who provided this interpretation, please contact Eliecer Bui M.D. at [phone]. If this radiologist is unavailable, youwill be directed to another radiologist to assist. If you are a patient with a question regarding this report, pleasecontactyour referring physician directly. Professional Interpretation Provided By: [employer], Phone , These documents contain legally protected [...] 11/22/12 0818 Sign by: Anibal Lan MD 97-Pdx-98498:19 VERÓNICA CULTURE-OTHER (83150) Comments: PATIENT NOT FASTINGPERFORMED BY: [facility] Nheoqy1880 [facility] [id number] Information: SRC:THRT [id number] Result 1 RRF (Normal) Comments: Routine respiratory duyen Upper Respiratory Culture Final report (Normal) 19-Tmk-320231:33 Rapid Strep Test, Office (50227) Rapid Strep Test, Office Negative (Normal) 6-Qps-182146:50 Celiac Disease Comprehensive Comments: PERFORMED BY: [employer] [facility] [id number] Immunoglobulin A, Qn, 364 mg/dL (Normal) Range: [...] Potassium, Serum 4.0 mmol/L Comments: PERFORMED BY: edenes Zhojsa1030 [facility] [id number] 4:50 (Normal) Range: 3.5-5.2 9-Odc-947924:30 CBCMD ANC 3.7 3/uL (Normal) Range: 2.0-7.7 [...] 4.2-5.4 WBC 7.0 {k/mm3} (Normal) Range: 4.4-11.0 5-Llc-810894:30 CMP GAP 11 (Normal) Range: 5-15 CO2 [...] 7-18 GLU 93 mg/dL (Normal) Range: 70-110 7-Zlm-550480:30 LIPID LDL 108 mg/dL (Normal) Range: 0-130 [...] Very High > or = 500 mg/dL 9-Quy-418203:30 MIACRE MIALB 5.8 mg/L (Normal) tMICROCREAT 9.5 {mg/g_CRE} (Normal) CREU 60.7 mg/dL (Normal) 9-Aur-213252:30 TSH 0.75 {uIU/mL} (Normal) Range: 0.358-3.74 :54 HgA1C , Office (99841) HgA1C , Office 5.5 % (Normal) Range: 4.6 - 7.1 :54 Blood Glucose , Office (14915) Blood Glucose , Office 116 (Normal) 47-Hvv-885978:26 URINE VERÓNICA CULTURE-SHARIFA COL Comments: PATIENT NOT FASTINGPERFORMED BY: [facility] Fbokah3667 [facility] [id number] Information: SRC:UR [id number] COUNT (33664) Result 1 MUG (Normal) Comments: Mixed urogenital flora50,000-100,000 colony forming units per mL Urine Final report (Normal) Culture,Comprehensive 39-Nox-043906:46 Urinalysis, Office (69524) UA - BILIRUBIN Small (Normal) UA - BLOOD Hemolyzed Small (Normal) UA - GLUCOSE Negative (Normal) UA - KETONES Small mg/dL (Normal) UA - LEUKOCYTE ESTERASE Moderate (Normal) UA - NITRITE Negative (Normal) UA - PH 6.0 (Normal) UA - PROTEIN Trace mg/dL (Normal) UA - SPECIFIC GRAVITY 1.025 (Normal) URINE UROBILINGN SHARIFA TIMED Normal mg/dL (Normal) 39-Hyk-933477:55 CHEST, PA AND LATERAL Radiology Report See [...] radiologist regarding this report, please call our [id number] line @ Dictated on 1518 by Isiah Lan MDranscribed on 11/23/11 161 by ITS IMPORTSign by Anibal Lan MD on 11/23/11 1611 Sign by: Anibal Lan MD 11-Qtb-78420:51 Urinalysis, Office (32868) UA - BILIRUBIN Negative (Normal) UA - BLOOD Hemolyzed Small (Normal) UA - GLUCOSE Negative (Normal) UA - KETONES Negative mg/dL (Normal) UA - LEUKOCYTE ESTERASE Large (Normal) UA - NITRITE Negative (Normal) UA - PH 7.0 (Normal) UA - PROTEIN Negative mg/dL (Normal) UA - SPECIFIC GRAVITY 1.020 (Normal) URINE UROBILINGN SHARIFA TIMED 2 mg/dL (Normal) :51 HgA1C , Office (86377) HgA1C , Office 6.2 % (Normal) Range: 4.6 - 7.1 :50 Blood Glucose , Office (33810) Blood Glucose , Office 119 (Normal) :55 Urinalysis, Office (51492) UA - BILIRUBIN Negative (Normal) UA - [...] Ultrasound evaluation of the right upper quadrant [facility] with real-time ultrasonography and static [...] Muscle) 13 {Units} (Normal) Comments: PERFORMED BY: [facility] BiosciencesFormer[facility] [id number] :58 Antibody Range: 0-19 Comments: Negative 0 - 19 Weak positive 20 - 30 Moderate to strong positive >30 . Actin Antibodies are found in 52-85% of patients with autoimmune hepatitis or chronic active hepatitis and in 22% of patients with primary biliary cirrhosis. :58 Antinuclear Antibodies Direct Comments: PERFORMED BY: [facility] [id number] GAYATRI Direct Negative (Normal) :5 Ceruloplasmin 31.6 mg/dL (Normal) Comments: PERFORMED BY: [facility] [id number] Range: 16.0-45.0 :5 Ferritin, Serum 440 ng/mL (Abnormal) Comments: PERFORMED BY: [employer] [facility] [id number] Range: 13-150 :58 Hepatitis Panel (4) Comments: PERFORMED BY: [facility] [id number] Hep C Virus Ab 0.1 {s/co_ratio} (Normal) [...] (Normal) Hep A Ab, IgM Negative (Normal) 88-Yqx-73556:58 Iron and TIBC Comments: PERFORMED BY: [facility] [id number] Iron Saturation 37 % (Normal) Range: 15-55 Iron, Serum 96 ug/dL (Normal) Range: 35-155 UIBC 163 ug/dL (Normal) Range: 150-375 Iron Bind.Cap.(TIBC) 259 ug/dL (Normal) Range: 250-450 :58 Platelet Count on Citrated Comments: PERFORMED BY: [employer] [facility] [id number] Bld Plt Count, Citrated Bld 216 {X10E3/uL} Range: 140-415 (Normal) 11-Jun-2011 Written Authorization WAR (Normal) Comments: PERFORMED BY: [employer] [facility] [id number] 9:58 Comments: Written Authorization Received.Authorization received from [facility] [id number] by Elina Swain :30 HgA1C , Office (55799) HgA1C , Office 6.7 % (Normal) Range: 4.6 - 7.1 :30 Blood Glucose , Office (65099) Blood Glucose , Office 159 (Normal) :15 METABOLIC PANEL, COMPREHENSIVE Comments: PATIENT WAS FASTINGPERFORMED BY: Gizmo5lin6370 [facility] [id number] (65778) ALT (SGPT) 51 [iU]/L (Abnormal) Range: 0-40 [...] mg/dL (Abnormal) Range: 65-99 :15 LIPID PANEL (79938) Comments: PATIENT WAS FASTINGPERFORMED BY: [employer]6370 [facility] [id number] LDL/HDL Ratio 1.8 {ratio_units} (Normal) Range: 0.0-3.2 [...] MANUAL DIFF Comments: PATIENT WAS FASTINGPERFORMED BY: NovusEdge70 [facility] [id number] Information: [id number] (55541) Immature Grans (Abs) 0.0 {x10E3/uL} (Normal) Range: [...] 3.80-5.10 WBC 8.3 {x10E3/uL} (Normal) Range: 4.0-10.5 48-Mbe-135927:26 Hepatic Function Panel (7) Comments: PERFORMED BY: LabCoSaint Peter's University HospitalEtbvqa1942 [facility] [id number] ALT (SGPT) 63 [iU]/L (Abnormal) Range: 0-40 Alkaline Phosphatase, S 63 [iU]/L (Normal) Range: 25-165 AST (SGOT) 53 [iU]/L (Abnormal) Range: 0-40 Bilirubin, Direct 0.13 mg/dL (Normal) Range: 0.00-0.40 Bilirubin, Total 0.4 mg/dL (Normal) Range: 0.0-1.2 Albumin, Serum 4.5 g/dL (Normal) Range: 3.6-4.8 Protein, Total, Serum 7.8 g/dL (Normal) Range: 6.0-8.5 84-Qgl-215782:26 Hepatitis Panel (4) Comments: PERFORMED BY: [facility] Kzdomb0498 [facility] [id number] Hep C Virus Ab <0.1 {s/co_ratio} (Normal) [...] (Normal) Hep A Ab, IgM Negative (Normal) 3-Ovy-599221:04 LIVER D BILI 0.11 mg/dL (Normal) Range: 0.00-0.30 T BILI 0.30 mg/dL (Normal) Range: 0.00-1.00 ALK P 57 U/L (Normal) Range: 50-136 ALT 68 U/L (Normal) Range: 12-78 ALB 4.0 g/dL (Normal) Range: 3.4-5.0 AST 53 U/L (Abnormal) Range: 15-37 T PROT 8.0 g/dL (Normal) Range: 6.4-8.2 :59 HgA1C , Office (98087) HgA1C , Office 6.6 % (Normal) Range: 4.6 - 7.1 :59 Blood Glucose , Office (95467) Blood Glucose , Office 124 (Normal) :17 HgA1C , Office (62651) HgA1C , Office 6.4 % (Normal) Range: 4.6 - 7.1 14-Cjr-30096:17 Blood Glucose , Office (06037) Blood Glucose , Office 141 (Normal) 59-Bkm-898830:17 Hemoglobin Glyclated (HGB A1C) Comments: PATIENT WAS FASTINGPERFORMED BY: [facility]6370 [facility] [id number] (48513) Hemoglobin A1c 6.0 % (Abnormal) Range: 4.8-5.6 Comments: Increased risk for diabetes: 5.7 - 6.4 Diabetes: >6.4 Glycemic control for adults with diabetes: <7.0 38-Mbn-006305:17 MICROALBUMIN: CREATININE RATIO Comments: PATIENT WAS FASTINGPERFORMED BY: [facility]6370 [facility] [id number] (75424) AND (64569) Microalb/Creat Ratio 2.9 {mg/g_creat} (Normal) Range: 0.0-30.0 Creatinine, Urine 49.0 mg/dL (Normal) Range: 15.0-278.0 Microalbumin, Urine 1.4 ug/mL (Normal) Range: 0.0-17.0 67-Mfm-985827:17 METABOLIC PANEL, COMPREHENSIVE Comments: PATIENT WAS FASTINGPERFORMED BY: TutorGroupNor-Lea General HospitalWqapzk2994 [facility] [id number] (05819) Alkaline Phosphatase, S 61 [iU]/L (Normal) Range: [...] Glucose, Serum 116 mg/dL (Abnormal) Range: 65-99 20-Cho-024650:17 LIPID PANEL (12792) Comments: PATIENT WAS FASTINGPERFORMED BY: [facility] Tyzqkw4450 [facility] [id number] LDL/HDL Ratio 2.2 {ratio_units} (Normal) Range: 0.0-3.2 HDL Cholesterol 50 mg/dL (Normal) Comments: According to ATP-III Guidelines, HDL-C >59 mg/dL is considered anegative risk factor for CHD. LDL Cholesterol Calc 109 mg/dL (Abnormal) Range: 0-99 VLDL Cholesterol Hillary 56 mg/dL (Abnormal) Range: 5-40 Cholesterol, Total 215 mg/dL (Abnormal) Range: 100-199 Triglycerides 282 mg/dL (Abnormal) Range: 0-149 :17 CBC WITH MANUAL DIFF (59334) Comments: PATIENT WAS FASTINGPERFORMED BY: EMIL [employer]70 [facility] [id number] Immature Grans (Abs) 0.0 {x10E3/uL} (Normal) Range: [...] 3.80-5.10 WBC 8.6 {x10E3/uL} (Normal) Range: 4.0-10.5 95-Vui-494377:57 Folic Acid Serum (51748) Comments: PATIENT NOT FASTINGPERFORMED BY: WelltokCoWaste Remediesin [place] [id number] Folate (Folic Acid), Serum 12.6 ng/mL (Normal) Comments: Indeterminate: 2.2 - 3.0Deficient: <2.2 63-Nar-697315:57 Vitamin B-12 (cyanocobalamin) Comments: PATIENT NOT FASTINGPERFORMED BY: [facility]6370 [facility] [id number] (37122) Vitamin B12 551 pg/mL (Normal) Range: 211-946 55-Put-201713:57 CBC with manual diff Comments: PATIENT NOT FASTINGPERFORMED BY: [facility]6370 [facility] [id number] Information: [id number] (70393) Baso (Absolute) 0.1 {x10E3/uL} (Normal) Range: 0.0-0.2 [...] 3.80-5.10 WBC 9.4 {x10E3/uL} (Normal) Range: 4.0-10.5 85-Ftv-237932:57 Metabolic Panel, Comprehensive Comments: PATIENT NOT FASTINGPERFORMED BY: LabCoSaint Peter's University HospitalVeknug6591 [facility] [id number] (93842) ALT (SGPT) 18 [iU]/L (Normal) Range: 0-40 [...] mg/dL (Abnormal) Range: 65-99 :57 DRUG ASSAY-LITHIUM (79794) Comments: PATIENT NOT FASTINGPERFORMED BY: [facility]6370 [facility] [id number] [place] (Eskalith), Serum 1.0 mmol/L (Normal) Range: 0.6-1.4 Comments: Detection Limit = 0.1<0.1 indicates None Detected :57 T4, FREE (THYROXINE) (97825) Comments: PATIENT NOT FASTINGPERFORMED BY: [place] 9919470 [facility] [id number] T4,Free(Direct) 1.17 ng/dL (Normal) Range: 0.82-1.77 :57 T3, FREE (TRIDOTHYRONINE) ([id number]) Comments: PATIENT NOT FASTINGPERFORMED BY: [facility] [facility] [id number] Triiodothyronine,Free,Serum 2.1 pg/mL (Normal) Range: 2.0-4.4 :57 TSH ([id number]) Comments: PATIENT NOT FASTINGPERFORMED BY: [facility] [facility] [id number] TSH 4.080 {uIU/mL} (Normal) Range: 0.450-4.500 :43 HgA1C , Office ([id number]) HgA1C , Office 5.3 % (Normal) Range: 4.6 - 7.1 :43 Blood Glucose , Office (24452) Blood Glucose , Office 125 (Normal) :4 [...] 136-145 GLU 84 mg/dL (Normal) Range: 70-110 19-Bpd-728083:42 LI 0.60 mmol/L (Normal) Comments: Therapeutic Range: 0.60 - 1.20 61-Ngn-840196:58 Thin prep Pap Comments: Source.............Cervical;EndocervicalNo. of containers..01 CYTYC Thin Prep VialPATIENT NOT FASTINGPERFORMED BY: Lab[address] [id number] Information: [id number] ([id number]) Note: PAPSMR (Normal) Comments: The Pap smear [...] atrophy.V 72.31 ; Routine gynecological examinationRita Gonzalez Taxonomist (ASCP) 43-Vjs-918055:00 TSH (65031) Comments: PATIENT NOT FASTINGPERFORMED BY: [facility]6[address] [facility] [id number] TSH 3.440 {uIU/mL} (Normal) Range: 0.450-4.500 81-Gnt-677167:00 CBC (Auto) (28763) Comments: PATIENT NOT FASTINGPERFORMED BY: [facility]6[address] [facility] [id number] Information: [id number] Platelets 258 {x10E3/uL} (Normal) Range: 140-415 RDW 13.6 % (Normal) Range: 11.7-15.0 Hematocrit 43.5 % (Normal) Range: 34.0-44.0 MCH 31.6 pg (Normal) Range: 27.0-34.0 MCHC 33.6 g/dL (Normal) Range: 32.0-36.0 MCV 94 fL (Normal) Range: 80-98 Hemoglobin 14.6 g/dL (Normal) Range: 11.5-15.0 RBC 4.61 {x10E6/uL} (Normal) Range: 3.80-5.10 WBC 8.6 {x10E3/uL} (Normal) Range: 4.0-10.5 48-Dmr-574339:00 Metabolic Panel, Basic Comments: PATIENT NOT FASTINGPERFORMED BY: [facility] HospitalUkjpyz3723 [facility] [id number] ([id number]) Calcium, Serum 9.1 mg/dL (Normal) Range: 8.6-10.2 [...] Glucose, Serum 111 mg/dL (Abnormal) Range: 65-99 23-Mze-277368:00 DRUG ASSAY-LITHIUM (94172) Comments: all these labs standing order prn; PATIENT NOT FASTINGPERFORMED BY: [facility]Saint [facility] HospitalQiwomn0822 [facility] [id number] [place] (Eskalith), Serum 0.9 mmol/L (Normal) Range: 0.6-1.4 Comments: Detection Limit = 0.1<0.1 indicates None Detected 40-Vjb-87492:16 METABOLIC PANEL, COMPREHENSIVE Comments: PATIENT NOT FASTINGPERFORMED BY: [facility]CoSaint [facility] HospitalPuosfk3130 [facility] [id number] ([id number]) A/G Ratio 1.3 (Normal) Range: 1.1-2.5 Alkaline [...] Glucose, Serum 207 mg/dL (Abnormal) Range: 65-99 44-Kpt-79637:16 CBC WITH MANUAL DIFF Comments: PATIENT NOT FASTINGPERFORMED BY: [facility] HospitalUjealq2327 [facility] [id number] Information: [id number] ([id number]) Baso (Absolute) 0.1 {x10E3/uL} (Normal) Range: 0.0-0.2 [...] CREATININE RATIO Comments: PATIENT NOT FASTINGPERFORMED BY: [facility]6[address] [facility] [id number] ([id number]) AND (50199) Microalb/Creat Ratio 6.2 {mg/g_creat} (Normal) Range: 0.0-30.0 Microalbumin, Urine 2.5 ug/mL (Normal) Range: 0.0-17.0 Creatinine, Urine 40.1 mg/dL (Normal) Range: 15.0-278.0 :38 HgA1C , Office (71948) HgA1C , Office 6.6 % (Normal) Range: 4.6 - 7.1 :38 Blood Glucose , Office (81947) Blood Glucose , Office 214 (Normal) 17-Udc-129209:05 URINE VERÓNICA CULTURE-IDENTIFICATN Comments: PATIENT NOT FASTINGPERFORMED BY: [facility] [id number] Information: [id number] ([id number]) Antimicrobial MIHEAD (Normal) Comments: S = Susceptible; [...] mL (Normal) Urine Final report (Normal) Culture,Comprehensive 59-Obq-163162:23 CHEST, PA AND LATERAL (MT) Radiology Report See Note (Normal) Comments: Exam Number: [id number] CLINICAL:58-year-old female with cough, pain and shortness [...] :23 B.pertussisB.parapertussis PCR Comments: PERFORMED BY: ELIESER KrwjEdh0244 [facility] [id number] Bordetella parapertussis DNA Negative (Normal) Comments: .This test was developed and its performance characteristics determinedby [employer]. It has not been cleared or approved by theU.S. Food and Drug Administration. The FDA has determined that s uchclearance or approval is not necessary. This test is used for clinicalpurposes. It should not be regarded as investigational or research. Bordetella pertussis DNA Negative (Normal) :50 HgA1C , Office (30935) HgA1C , Office 5.5 % (Normal) Range: 4.6 - 7.1 :50 Blood Glucose , Office (41154) Blood Glucose , Office 90 (Normal) :33 HgA1C , Office (77675) HgA1C , Office 5.6 % (Normal) Range: 4.6 - 7.1 :41 HgA1C , Office (51354) HgA1C , Office 5.5 % (Normal) Range: 4.6 - 7.1 Comments: cyril :41 Blood Glucose , Office (91451) Comments: 89 Blood Glucose , Office 89 [...] (Normal) Range: 0.34-4.82 :42 HgA1C , Office (03564) HgA1C , Office 5.4 % (Normal) Range: 4.6 - 7.1 :42 Blood Glucose , Office (63495) Blood Glucose , Office 103 (Normal) :20 [...] T PROT 8.0 g/dL (Normal) Range: 6.4-8.2 50-Syo-589951:20 LIPID CHOL 148 mg/dL (Normal) Comments: <200 [...] mg/dL VLDL 30 mg/dL (Normal) Range: 5-40 42-Vkh-736005:20 ROUTINE UA BILIRUBIN URINE SeeNote (Normal) Comments: [...] 0.2 EU/dl (Normal) Range: 0.2 - 1.0 74-Dnf-24617:06 THYROID (HP) Radiology Report See Note (Normal) Comments: Exam Number: [id number] THYROID ULTRASOUND HISTORYGoiter. There is borderline increase [...] 03, 2007. Reported By: PETRONA REGALADO M.D. 15-Res-53437:20 MAMM, UILAT DIAG DIGITAL & CAD Radiology Report See Note (Normal) Comments: Exam Number: [id number] UNILATERAL LEFT DIAGNOSTIC MAMMOGRAPHY CLINICAL STATEMENTLeft breast [...] The mammogramswere also examined with computer-aided detection software(i.Sec.). Reported By: REID KRUEGER M.D. 8-Enj-137663: TSH 0.94 {uIU/mL} Range: 0.34-4.82 50 (Normal) :06 MAMM, BILAT SCRN DIGITAL & CAD Radiology Report See Note (Normal) Comments: Exam Number: [id number] MAMMOGRAM, BILATERAL SCREENING DIGITAL AND CAD HISTORYRoutine [...] was rendered by a radiologist certified under [facility] Quality Standards Act of 1992 (MQSA). The mammograms werealso examined with computer-aided detection software (Neuralieve.). Reported By: PETRONA REGALADO M.D. :05 THYROID (HP) Radiology Report See Note (Normal) Comments: Exam Number: [id number] THYROID ULTRASOUND HISTORYGoiter. High resolution real time [...] 6 months. Reported By: PETRONA REGALADO M.D. 89-Twr-232567:22 HgA1C , Office (88854) HgA1C , Office 5.9 % (Normal) Range: 4.6 - 7.1 96-Mbg-015742:22 Blood Glucose , Office (99094) Blood Glucose , Office 88 (Normal) Plan [...] II, controlled Stress incontinence, female : Reviewed Rehabilitation Services Manager Letter Indication: Stress incontinence, female Diabetes [...] acute Planned Observations VITAMIN B12 AND FOLATES (51930)Indication: Neuropathic pain On: :08 Request Blood Glucose , Office (91220)Indication: Diabetes mellitus type II, controlled On: 82-Oqt-83062:04 Request LIPID PANEL (75660)Indication: Neuropathic pain On: :54 Request Blood Glucose , Office (35692)Indication: Diabetes mellitus type II, controlled On: 02-Nov-20178:55 Request D-Dimer (14829)Indication: Shortness of breath On: 43-Iil-285325:19 Request Metabolic Panel, Comprehensive (64885)Indication: Diabetes mellitus type II, controlled On: 65-Pur-898234:19 Request Comments: Nov 2017 LIPID PANEL (82142)Indication: Diabetes mellitus type II, controlled On: 90-Tpe-542110:19 Request Comments: Nov 2017 URINALYSIS (42815)Indication: Diabetes mellitus type II, controlled On: 10-Mjg-184933:19 Request Comments: Nov 2017 TSH (00355)Indication: Diabetes mellitus type II, controlled On: 36-Xud-984201:18 Request Comments: Nov 2017 CBC, Platelets & Auto Diff (62746)Indication: Diabetes mellitus type II, controlled On: 51-Qdx-450623:18 Request Comments: Nov 2017 MICROALBUMIN: CREATININE RATIO (55760) AND (37241)Indication: Diabetes mellitus type II, controlled On: 32-Iet-403682:18 Request Comments: Nov 2017 HgA1C , Office (99759)Indication: Diabetes mellitus type II, controlled On: 31-Nat-564407:44 Request Anaerobic & Aerobic Culture (94482)Indication: Mouth pain On: 9-Shx-169545:11 Request Metabolic Panel, Comprehensive (54159)Indication: Chronic kidney disease (CKD), stage I On: 88-Lid-088289:50 Request Comments: 2 weeks Metabolic Panel, Comprehensive (87172)Indication: Diabetes mellitus type II, controlled On: 46-Ipn-277963:56 Request Comments: today URINALYSIS (78811)Indication: Chronic kidney disease (CKD), stage I On: 76-Xha-225954:52 Request Comments: Jul 2017 MICROALBUMIN: CREATININE RATIO (91898) AND (90734)Indication: Chronic kidney disease (CKD), stage I On: 55-Dkf-370792:52 Request Comments: jul 2017 Lipid Panel (80119)Indication: Hypertension (Renamed from BP (high blood pressure)) On: 31-Qnk-859073:52 Request Comments: Jul 2017 TSH (55623)Indication: Leg weakness On: 18-Nkg-680485:52 Request Comments: Jul 2017 CBC, Platelets & Auto Diff (02231)Indication: Leg weakness On: 66-Qyi-266594:52 Request Comments: jul 2017 METABOLIC PANEL, COMPREHENSIVE (31596)Indication: Weakness On: 37-Yot-177886:55 Request METABOLIC PANEL, COMPREHENSIVE (67457)Indication: Hypokalemia On: :43 Request Comments: STAT SED RATE ERYTHROCYTE (92604)Indication: Weakness On: 18-Tur-946564:29 Request TSH (THYROID STIMULATING HORMONE) (79658)Indication: Unspecified abnormal involuntary movements On: :17 Request METABOLIC PANEL, COMPREHENSIVE (24609)Indication: Unspecified abnormal involuntary movements On: :17 Request CBC, PLATELETS & AUT DIFF (09096)Indication: Unspecified abnormal involuntary movements On: 69-Eby-950101:17 Request URINE VERÓNICA CULTURE-IDENTIFICATN (48488)Indication: Weakness On: 48-Qhi-885182:07 Request Blood Glucose , Office (33458)Indication: Unspecified abnormal involuntary movements On: 01-Bob-66496:59 Request VITAMIN B12 AND FOLATES (37064)Indication: Unspecified abnormal involuntary movements On: 98-Vya-21221:57 Request SPEP (87586)Indication: Elevated serum creatinine On: 58-Bkq-317111:31 Request CALCIFIDIOL (85741) VIT D 25Indication: Vitamin D deficiency (Renamed from Avitaminosis D) On: :27 Request TSH (19774)Indication: Hypothyroidism On: :27 Request MICROALBUMIN: CREATININE RATIO (75342) AND (02225)Indication: Diabetes mellitus type II, controlled On: :27 Request METABOLIC PANEL, COMPREHENSIVE (17622)Indication: Diabetes mellitus type II, controlled On: :27 Request LIPID PANEL (29177)Indication: Diabetes mellitus type II, controlled On: :27 Request CBC with auto diff (39144)Indication: Diabetes mellitus type II, controlled On: :27 Request CALCIFIDIOL (70274) VIT D 25Indication: Vitamin D deficiency (Renamed from Avitaminosis D) On: 13-Lbj-479849:15 Request Comments: in three months (approximately) METABOLIC PANEL, COMPREHENSIVE (79884)Indication: Diabetes mellitus type II, controlled On: 74-Tcn-567956:15 Request Comments: in three months (approximately) SODIUM URINE (16068)Indication: Hyponatremia On: :51 Request OSMOLALITY URINE (30657)Indication: Hyponatremia On: :50 Request OSMOLALITY BLOOD (15259)Indication: Hyponatremia On: :50 Request ASSAY, TROPONIN, QUANTITATIVE (aka Troponin I) (93372)Indication: Chest pain On: :40 Request Comments: stat D-Dimer (34222)Indication: Chest pain On: 51-Ucq-674768:40 Request Comments: stat TSH (54501)Indication: Chest pain On: :40 Request CBC WITH MANUAL DIFF (32334)Indication: Chest pain On: :40 Request METABOLIC PANEL, COMPREHENSIVE (11781)Indication: Chest pain On: 17-Yla-635825:40 Request URINE VERÓNICA CULTURE (SHARIFA COL COUNT) (14596)Indication: Dysuria (Renamed from Difficult or painful urination) On: 03-Nux-935843:24 Request Metabolic Panel, Comprehensive (02977)Indication: Hypertension (Renamed from BP (high blood pressure)) On: 97-Loh-559182:56 Request Metabolic Panel, Basic (78652)Indication: Elevated LFTs On: 20-Llv-784217:16 Request 24 hour urine for Protein (42001)Indication: Elevated serum creatinine On: 80-Fhu-897400:40 Request Comments: recheck in one week CREATININE CLEARANCE (02343)Indication: Elevated serum creatinine On: 35-Yit-700103:39 Request Comments: recheck in one week Blood Glucose , Office (68299)Indication: Diabetes mellitus type II, controlled On: 13-Lkc-00150:29 Request METABOLIC PANEL, COMPREHENSIVE (80733)Indication: Hypokalemia (Renamed from Decreased potassium in the blood) On: 42-Uvz-289052:52 Request MICROALBUMIN: CREATININE RATIO (69759) AND (30006)Indication: Diabetes mellitus type II, controlled On: 76-Okt-611504:14 Request FLURESCNT ANTIB SCRN EA (41163) celiac profileIndication: Irritable bowel syndrome (Renamed from Functional bowel disease) On: 8-Pps-509711:58 Request IMMUNOASSAY, ANALYTE (NON-INFECT) (23284) celiac profileIndication: Irritable bowel syndrome (Renamed from Functional bowel disease) On: 0-Wbj-875291:58 Request IGA/IGD/IGG/IGM-EACH (05744) celiac profileIndication: Irritable bowel syndrome (Renamed from Functional bowel disease) On: 2-Wve-314593:58 Request Potassium Serum (36056)Indication: Hypokalemia (Renamed from Decreased potassium in the blood) On: 7-Mha-239415:58 Request Celiac Disease Comphrehensive Profile (01137)Indication: Irritable bowel syndrome (Renamed from Functional bowel disease) On: 04-Nov-20129:56 Request METABOLIC PANEL, COMPREHENSIVE (53514)Indication: Diabetes mellitus type II, controlled On: 40-Eit-782533:32 Request LIPID PANEL (07949)Indication: Diabetes mellitus type II, controlled On: 25-Nde-414634:32 Request CBC WITH MANUAL DIFF (21277)Indication: Diabetes mellitus type II, controlled On: 07-Pos-235273:32 Request MICROALBUMIN: CREATININE RATIO (02019) AND (50310)Indication: Diabetes mellitus type II, controlled On: 82-Nrw-339425:32 Request TSH (28699)Indication: Hypothyroidism On: 75-Upa-957321:32 Request TSH (15923)Indication: Hypothyroidism On: 86-Yar-671664:26 Request MICROALBUMIN: CREATININE RATIO (29350) AND (47996)Indication: Diabetes mellitus type II, controlled On: 51-Cks-867039:26 Request METABOLIC PANEL, COMPREHENSIVE (71947)Indication: Diabetes mellitus type II, controlled On: 32-Fuz-083945: Request LIPID PANEL (37320)Indication: Diabetes mellitus type II, controlled On: :26 Request CBC WITH MANUAL DIFF (88128)Indication: Diabetes mellitus type II, controlled On: 75-Vnp-423505:26 Request URINE VERÓNICA CULTURE-SHARIFA COL COUNT (11785)Indication: Dysuria (Renamed from Difficult or painful urination) On: 69-Icg-051416:15 Request URINE VERÓNICA CULTURE-SHARIFA COL COUNT (60507)Indication: Dysuria (Renamed from Difficult or painful urination) On: 73-Tfx-127227:55 Request Ferritin (91901)Indication: Elevated LFTs On: 49-Vei-434034:50 Request Comments: repeat now per Dr. Cabral with iron level Iron Binding Capacity (TIBC) (82115)Indication: Elevated LFTs On: :50 Request Iron (48987)Indication: Elevated LFTs On: :49 Request CBC (Auto) (11243)Indication: Thrombocytopenia, unspecified On: 14-Tys-798706: Request Comments: nonclumping tube HEPATITIS PANEL (12410)Indication: Elevated LFTs On: 72-Evr-525697: Request FERRITIN (09853)Indication: Elevated LFTs On: 17-Zdk-008272:00 Request CERULOPLASMIN (09708)Indication: Elevated LFTs On: 93-Iev-069576:00 Request ASM (ANTI SMOOTH MUSCLE ANTIBODY) (34790)Indication: Elevated LFTs On: 97-Itj-472582:00 Request GAYATRI (ANTINUCLEAR ANTIBODY) (63757)Indication: Elevated LFTs On: 19-Dfu-752339:00 Request HEPATITIS PANEL (59371)Indication: Elevated LFTs On: :01 Request TSH (61212)Indication: Hypothyroidism On: 82-Soc-990966:16 Request LIPID PANEL (82357)Indication: Diabetes mellitus type II, controlled On: 20-Qzw-934814:15 Request DRUG ASSAY-LITHIUM (96560)Indication: Bipolar affective disorder, mixed On: 80-Rgf-293642:14 Request Metabolic Panel, Basic (42029)Indication: Bipolar affective disorder, mixed On: 17-Vvy-283846:13 Request Metabolic Panel, Basic (24802)Indication: Bipolar affective disorder, mixed On: 40-Mub-992325:22 Request DRUG ASSAY-LITHIUM (56904)Indication: Bipolar affective disorder, mixed On: 76-Sik-760953:22 Request Comments: 2 months Urinalysis, Office (24189)Indication: Urinary frequency On: 97-Cmz-877249:27 Request Comments: done pms HEPATIC FUNCTION PANEL (64689)Indication: Other and unspecified hyperlipidemia On: 8-Aoj-386482:45 Request Lipid Panel (39261)Indication: Other and unspecified hyperlipidemia On: 7-Nbc-690310:45 Request Lipid Panel (06123)Indication: Other and unspecified hyperlipidemia On: 77-Vzp-968155:17 Request CBC, Platelets & Auto Diff (77352)Indication: Other and unspecified hyperlipidemia On: :17 Request Metabolic Panel, Comprehensive (65070)Indication: Other and unspecified hyperlipidemia On: :17 Request TSH (54910)Indication: Hypothyroidism On: :15 Request Metabolic Panel, Basic (57331)Indication: Other and unspecified hyperlipidemia On: :55 Request Lipid Panel (41600)Indication: Other and unspecified hyperlipidemia On: :55 Request Comments: in three months (approximately) CBC (Auto) (71149)Indication: Intestinal disaccharidase deficiencies and disaccharide malabsorption On: :56 Request Metabolic Panel, Comprehensive (14632)Indication: Intestinal disaccharidase deficiencies and disaccharide malabsorption On: :56 Request Lipid Panel (08696)Indication: Intestinal disaccharidase deficiencies and disaccharide malabsorption On: :56 Request Comments: in three months (approximately) MICROALBUMIN 24 HOUR OR RANDOM On: 17-Lyg-776284:04 Request (76869) CREATININE CLEARANCE (92221) On: 10-Ozl-294814:03 Request CBC (Auto) (76841)Indication: Unspecified disorder of kidney and ureter On: :53 Request Lipid Panel (17200)Indication: Unspecified disorder of kidney and ureter On: :53 Request Metabolic Panel, Comprehensive (68983)Indication: Unspecified disorder of kidney and ureter On: :53 Request TSH (03981)Indication: Hypothyroidism On: :53 Request TSH (53298)Indication: Hypothyroidism On: 31-Vzs-181519:18 Request URINALYSIS (56195)Indication: Intestinal disaccharidase deficiencies and disaccharide malabsorption On: 42-Pks-067182:43 Request CBC (Auto) (15925)Indication: Intestinal disaccharidase deficiencies and disaccharide malabsorption On: 12-Hlx-410250:43 Request Lipid Panel (73189)Indication: Intestinal disaccharidase deficiencies and disaccharide malabsorption On: :43 Request Metabolic Panel, Comprehensive (84513)Indication: Intestinal disaccharidase deficiencies and disaccharide malabsorption On: 82-Iat-210749:43 Request Planned Procedures COMPUTED TOMOGRAPHY ANGIOGRAPHY OF On: 01-Aug-2018 Intent CHEST FOR PULMONARY EMBOLISM Comments: stat for PE (16885)By: Eli Bowmna CNP, CNP, Mary E Echo CompleteBy: Eli Bowman CNP On: 29-Jul-2018 Intent Eli Bowman CNP Spirometry (93522)By: Colby WATTERS, On: 29-Jul-2018 Intent Eli Mcelroy CNP Holter Monitor 24 hrsBy: Colby WATTERS, On: 29-Jul-2018 Intent Eli Mcelroy CNP CHEST XRAY, PA & LATERAL (31729)By: On: 29-Jul-2018 Intent Eli Bowman CNP, CNP, Mary E ELECTROCARDIOGRAM, COMPLETE (ECG) On: 29-Jul-2018 Intent (68847)By: Eli Bowman CNP Comments: sinus rhythm Eli WATTERS Aerosol Treatment (44542)By: Colby On: 29-Jul-2018 Intent Eli WATTERS CNP, Mary E Flu Vaccine (Quadrivalent) 01419Cc: On: 22-Jul-2018 Intent Tejal Ceron Comments: Lot #[id number]-L dltd, IMDose prefilled syringegiven by: Rosalie Ceron MA Toradol Injection, 30 mg (J1885)By: On: 09-May-2018 Intent Nunu Root Comments: lot [id number] 12/2029mgIMleft gmas, MICROSOFT EXCHANGE ARCHITECT SCREENING DIGITAL TOMOSYNTHESIS OF On: 18-Apr-2018 Intent BREAST (37741)By: Eli Bowman CNP E Eli Bowman CNP DEXA SCAN AXIAL SKELETON (68826)By: On: 18-Apr-2018 Intent Eli Bowman CNP E Colby WATTERS, Eli Lubin Toradol Injection, 30 mg (J1885)By: On: 22-Mar-2018 Intent Nunu Root Comments: toradol 30mg injection lot:[id number]:10/2019R GMpt tolerated wellMSMITH,MICROSOFT EXCHANGE ARCHITECT COMPLETE ELECTROMYOGRAPHY (EMG) WITH On: 22-Mar-2018 Intent NERVE CONDUCTION STUDIES OF EACH Comments: Bilateral lower legs EXTREMITY (16101)By: Nunu Root EMGBy: Eli Bowman CNP, CNP, On: 03-Jan-2018 Intent Eli Lubin Comments: both legs Nerve ConductionBy: Eli Bowman CNP On: 03-Jan-2018 Intent E Eli Bowman CNP Comments: both legs Toradol Injection, 30 mg (J1885)By: On: 23-Dec-2017 Intent Mayda Dobbins DO Comments: toradol 30mg injectionlot: [id number]: 06/2018L GMpt tolerated wellAD MICROSOFT EXCHANGE ARCHITECT Spirometry (31891)By: Dk, On: 16-Nov-2017 Intent Nunu Comments: Normal spirometry Aerosol Treatment (00016)By: Shilpi On: 30-Aug-2017 Intent Mayda COLEMAN Comments: less noise with forced exp Solu- Medrol Injection, 125mg On: 30-Aug-2017 Intent (J2930)By: Mayda Dobbins DO Comments: solumedrol 125mg injectionlot: [id number]: 12/2019R GMpt tolerated wellAD MICROS[employer]FT EXCHANGE ARCHITECT Radiology - Chest- PA and LatBy: On: 30-Aug-2017 Intent Mayda Dobbins DO Solu- Medrol Injection, 125mg On: 26-Aug-2017 Intent (J2930)By: Mayda Dobbins DO Comments: solumedrol 125mg injectionlot: [id number]: 12/2019L GMpt tolerated wellAD MICROS[employer]FT EXCHANGE ARCHITECT Aerosol Treatment (41850)By: Shilpi On: 26-Aug-2017 Mayda Bailey DO Comments: [place] Spirometry (39378)By: Shilpi COLEMAN On: 26-Aug-2017 Intent Mayda Comments: mild obstruction Radiology - Shoulder - RightBy: On: 20-Jul-2017 Intent Edita Cabral MD Radiology - Lumbar SpineBy: Misha On: 20-Jul-2017 Intent Edita PROCTOR DRAIN/INJECT MAJOR JOINT OR BURSA On: 13-Apr-2017 Intent (50959)By: Eli Bowman CNP Comments: injevted left knee today JANENE, Eli Lubin PHYSICAL THERAPY (44563)By: Dk, On: 08-Apr-2017 Intent Nunu Radiology - Knee - RightBy: Dk, On: 08-Apr-2017 Intent Nunu Radiology - Knee - LeftBy: Dk, On: 08-Apr-2017 Intent Nunu ATTENDED SLEEP STUDY (77930)By: On: 18-Jan-2017 Intent Eli Bowman CNP, CNP, Mary E DEXA SCAN AXIAL SKELETON (49438)By: On: 24-Nov-2016 Intent Donnie Gonzales MD MAMMOGRAM, SCREENING, BOTH BREAST On: 24-Nov-2016 Intent (69217)By: Donnie Gonzales MD US KIDNEY COMPLETE (52215)By: Janet On: 16-Jul-2016 Intent Donnie PROCTOR EsophagramBy: Edita Cabral MD On: 06-Feb-2016 Intent Comments: 12mm tablet X-RAY EXAM OF ESOPHAGUS (67229) - On: 04-Feb-2016 Intent Barium Swallow with 12mm tabletBy: Donnie Gonzales MD Carotid DopplerBy: Edita Cabral MD On: 16-Sep-2015 Intent Oz TD VACCINE ADULT (28459)By: Misha On: 16-Sep-2015 Intent Edita PROCTOR TDAP VACCINE >7 IM (03753)By: On: 16-Sep-2015 Intent Edita Cabral MD Pap Smear, Medicare (Q0091)By: On: 16-Sep-2015 Intent Edita Cabral MD MAMMOGRAM, SCREENING, BOTH BREAST On: 16-Sep-2015 Intent (64386)By: Edita Cabral MD Renal Artery DopplerBy: Misha PROCTOR, On: 04-Feb-2015 Intent Edita Clinton Ultrasound - RenalBy: Misha PROCTOR, On: 04-Feb-2015 Intent Edita Clinton DEXA SCAN AXIAL SKELETON (75464)By: On: 17-Jan-2015 Intent Edita Cabral MD Comments: postmenapausal MAMMOGRAM, SCREENING, BOTH BREAST On: 17-Jan-2015 Intent (40209)By: Edita Cabral MD Radiology - Shoulder - [...] with back pain- stat call results Spirometry (97619)By: Thee COLEMAN, On: 30-Apr-2014 Intent Erna Schaefer Comments: good effort and curve normal ELECTROCARDIOGRAM, COMPLETE (ECG) On: 30-Apr-2014 Intent (04619)By: Erna Kingston DO Eprescribed prescriptions (G8553)By: On: 12-Feb-2014 Intent Edita Cabral MD SPECIMEN HANDLING/TRANSPORT On: 15-Jan-2014 Intent (20593)By: Eli Bowman CNP, CNP, Mary E Eprescribed prescriptions (G8553)By: On: 11-Oct-2013 Intent Nunu Stephens LPN ADMINISTRATION OF INFLUENZA VIRUS On: 24-Jul-2013 Intent VACCINE (G0008)By: Edita Cabral MD FLU VAC, SPLIT, >3 YEARS, INTRAMUSC On: 24-Jul-2013 Intent (07721)By: Edita Cabral MD Echo CompleteBy: Edita Cabral MD On: 27-Jun-2013 Intent Carotid DopplerBy: Edita Cabral MD On: 27-Jun-2013 Intent Oz Eprescribed prescriptions (G8553)By: On: 27-Jun-2013 Intent Teressa Molina LPN MRI - BrainBy: Eli Bowman CNP On: 16-Jun-2013 Intent Eli Bowman CNP SPECIMEN HANDLING/TRANSPORT On: 16-May-2013 Intent (39345)By: Sue Ewing LPN Holter Monitor 24 hrsBy: Colby WATTERS, On: 28-Apr-2013 Intent Eli Mcelroy CNP ELECTROCARDIOGRAM, COMPLETE (ECG) On: 28-Apr-2013 Intent (16887)By: Eli Bowman CNP Comments: sinus bradycardia Eli WATTERS Bio Z (05660)By: Eli Bowman CNP E On: 28-Apr-2013 Intent Eli Bowman CNP EKG (22617)By: Edita Cabral MD On: 28-Mar-2013 Intent Comments: see scanned document of test done to see results reviewed today with patient Eprescribed prescriptions (G8553)By: On: 28-Mar-2013 Intent Teressa Molina LPN Eprescribed prescriptions ([id number])By: On: 08-Dec-2012 Intent Nunu Stephens LPN Spirometry ([id number])By: Shilpi COLEMAN, On: 25-Nov-2012 Intent Mayda Comments: Computer not running so not able to perform test Aerosol Treatment ([id number])By: Shilpi On: 25-Nov-2012 Mayda Bailey DO Spirometry ([id number])By: Thee COLEMAN, On: 21-Nov-2012 Intent Erna Schaefer Comments: good effort and curve normal Radiology - Chest- PA and LatBy: On: 21-Nov-2012 Intent Erna Kingston DO Eprescribed prescriptions ([id number])By: On: 21-Nov-2012 Intent Makayla Dilalrd LPN ADMINISTRATION OF PNEUMOCOCCAL On: 31-Oct-2012 Intent VACCINE (G0009)By: Edita Cabral MD Comments: Lot #[id number]-right deltoidDose0.5mlgiven by: [facility] per fax. M PNEUM VAC ADLT/IMUMNOSPR, SBC/INTRM On: 31-Oct-2012 Intent ([id number])By: Jodi Carvalho LPN Eprescribed prescriptions ([id number])By: On: 18-Oct-2012 Intent Jesse VICKERSNJasonn L FLU VAC, SPLIT, >3 YEARS, INTRAMUSC On: 01-Jul-2012 Intent ([id number])By: Eli Bowman CNP Comments: Lot:[id number]:6.13Amt:prefilled syringeSite: L Dltd, IMGiven by: MARISA Torres CNP, Elif ADMINISTRATION OF INFLUENZA VIRUS On: 01-Jul-2012 Intent VACCINE (G0008)By: Colby WATTERS ElifAmee Bowman CNP, Elif [employer]CIMEN HANDLING/TRANSPORT On: 01-Jul-2012 Intent ([id number])By: Sue Ewing LPN Solu -Medrol Injection, 125 mg On: 23-Nov-2011 Intent ([id number])By: Edita Cabral MD Comments: Lot [id number]-R hip, IMDose 125mggiven by:Teressa Radiology - ChestBy: Misha PROCTOR, On: 23-Nov-2011 Intent Edita Clinton Comments: wet read Pulse Oximetry ([id number])By: Benoit On: 23-Nov-2011 Intent AKBAR Aerosol Treatment ([id number])By: Colby On: 16-Nov-2011 Intent Eli WATTERS CNP Elif Pulse Oximetry ([id number])By: Vin, On: 16-Nov-2011 Intent Lynn Comments: 93 FLU VAC, SPLIT, >3 YEARS, INTRAMUSC On: 16-Nov-2011 Intent ([id number])By: Lynn Banuelos Comments: received at work [employer]CIMEN HANDLING/TRANSPORT On: 14-Sep-2011 Intent ([id number])By: Edita Cabral MD SPECIMEN HANDLING/TRANSPORT On: 26-Aug-2011 Intent ([id number])By: Sue Ewing LPN Ultrasound - LiverBy: Misha PROCTOR, On: 11-Jun-2011 Intent Edita Clinton EKG ([id number])By: Edita Cabral MD On: 16-Feb-2011 Intent MAMMOGRAM, SCREENING, BOTH BREASTS On: 13-Mar-2010 Intent ([id number])By: Edita Cabral MD MAMMOGRAM, SCREENING, BOTH BREASTS On: 06-Mar-2010 Intent ([id number])By: Edita Cabral MD MAMMOGRAM, SCREENING, BOTH BREASTS On: 13-Feb-2010 Intent ([id number])By: Edita Cabral MD Spirometry ([id number])By: Misha PROCTOR, On: 01-Oct-2009 Intent Edita Clinton ELECTROCARDIOGRAM, COMPLETE (ECG) On: 01-Oct-2009 Intent ([id number])By: Edita Cabral MD Pulse Oximetry ([id number])By: Benoit, On: 01-Oct-2009 Intent AKBAR Spirometry ([id number])By: Thee COLEMNA On: 30-Jul-2009 Intent Erna Schaefer Comments: good effort and curve normal Radiology - Chest- PA and LatBy: On: 30-Jul-2009 Intent Erna Kingston DO Pulse Oximetry ([id number])By: Vin, On: 30-Jul-2009 Intent Lynn Comments: 94%repeat 97-98 EKG ([id number])By: Erna Kingston DO On: 14-Jul-2009 Intent Comments: ekg showed normal sinus rhythym, normal axis, no acute st/t wave changes old t wave inversion noted on previous ekg Pulse Oximetry ([id number])By: Vin On: 11-Jul-2009 Intent Lynn Comments: 97% Solu -Medrol Injection, 125 mg On: 09-Jul-2009 Intent ([id number])By: Erna Kingston DO Comments: Lot #:[id number] date:mount given:125mgRoute:IM Site given:left buttockGiven by: MARIA DOLORES Cordon Aerosol Treatment ([id number])By: Thee On: 09-Jul-2009 Erna Bailey DO Pulse Oximetry ([id number])By: Thee COLEMAN On: 09-Jul-2009 Intent Erna Schaefer Comments: repeat after treatment was 96 Pulse Oximetry ([id number])By: Vin On: 09-Jul-2009 Intent Lynn Comments: 93% Spirometry ([id number])By: Gildardo SOUSA, On: 25-Jan-2009 Intent Sue MAMMOGRAM, SCREENING, BOTH BREASTS On: 29-May-2008 Intent ([id number])By: Edita Cabral MD EKG ([id number])By: Edita Cabral MD On: 29-May-2008 Intent Spirometry (10830)By: Misha PROCTOR, On: 27-Dec-2007 Intent Edita Clinton Ultrasound - ThyroidBy: Misha PROCTOR, On: 22-Mar-2007 Intent Edita Clinton MAMMOGRAM, SCREENING, BOTH BREASTS On: 22-Mar-2007 Intent ([id number])By: Edita Cabral MD MAMMOGRAM, SCREENING, BOTH BREASTS On: 22-Mar-2007 Intent ([id number])By: Edita Cabral MD ELECTROCARDIOGRAM, COMPLETE (ECG) On: 22-Mar-2007 Intent ([id number])By: Edita Cabral MD Planned Medications INJECTION, KETOROLAC [...] disease, bilateral : DISCONTINUED - POTASSIUM SERUM (40802) Indication: Active Meniere's disease, bilateral Elevated LFTs : DISCONTINUED - HEPATIC FUNCTION PANEL (98851) Indication: Elevated LFTs Diabetes mellitus type II, [...] reveiwing printed for pt to take to [facility] , [ADDITIONAL REASON] Weight Gain - Note [...] for Depression: Just started seeing couselor Mariia Zhang suggesting tweak meds a bit. Has [...] in ER on 12-29 after eating at [employer] and choking on a piece of potatoe had th End: 04-Jan-2017 11:17 amee hilario then went to urgent care, told to go to ER at [facility] diagnosed with Esophagitis was given pepcid [...] occurred following a specific injury (lifting at [employer] for years but no fall). The injury [...] [facility]: PAP smear (needs updated ), mammography (needs updated ) and colonoscopy (needs updated however patient refuse to have done bc she was hospitalized with the last one with infection for 5 days ). The patient does have durable power of trust and estates attorney and living will. The patient has [...] for Tdap vaccination (Renamed from Need for nhsbpxhwna-yelffxw-[id number] (Tdap) vaccine, adult/adolescent), Goiter (Renamed from Big [...] (240.9), Hypothyroidism(244.9) [facility] Payers MedicarePhysicians [place] Insurance Lilly Toro; silvano guarantor
--- OUTSIDE RECORDS SUMMARY | 2018-11-25 14:51 | XMS RPT_ITS | Continuity of Care Document ---
:1950 Author Organization [facility] Address [address] [place] [address] Phone Care Team Providers Name Role Phone Colby JANENEEli E Unavailable Mina Baer MD Unavailable Nhung Duval Unavailable [facility], [facility] Unavailable Kasi Scott Unavailable Mariia Zhang [...] with bottles, extensive review with nurse and [facility], med list updated Status: Active Postmenopausal (Renamed from Postmenopausal status) (Z78.0, V49.81) Status: Active Pregnancies () Comments: 2 Status: Active S/P hysterectomy (Z90.710, V88.01) Comments: for endometrial hyperplasia 2015 Status: Active Shortness of breath (R06.02, 786.05) Status: Active Sleep apnea (G47.30, 780.57) Comments: needs repeat sleep study at [facility] to get back on cpap Status: [...] Caitlin Delaney Start : 29-Jul-2018 Active Ergocalciferol 38496 UNIT Oral Capsule 1 Capsule twice weekly [...] tablet daily (15 MG) Active Comments:Catrachito Pen [place] 01/14 31G X 5 MM Miscellaneous 1 [...] Refills: 0 Ordered:16-May-2013 Colby WATTERS, Eli Yanez [facility], Eli Lubin Start : 16-May-2013 End : 23-May-2013 Inactive Cheratussin AC 100-10 MG/5ML Oral Syrup 1 Teaspoon(s) qhs prn cough for 0 days Quantity: 8 {Fluid_Ounce} Refills: 0 Ordered:16-Jun-2016 Priya Gillette Start : 12-Mar-2016 End : 16-Jun-2016 Inactive Comments:eight CIPRO, 500MG (Oral Tablet) 1 Tablet bid for 7 days Quantity: 14 {Tablet} Refills: 0 Ordered:15-Jan-2014 Colby [facility]ATTERS[facility] Start : 15-Jan-2014 End : 22-Jan-2014 [...] : 07-Nov-2012 End : 12-Feb-2014 Inactive Drisdol 87754 UNIT Oral Capsule 1 (one) Capsule once [...] : 29-Jul-2010 End : 30-Sep-2010 Inactive Nystatin 655310 UNIT/ML Mouth/Throat Suspension 4-6 Milliliter swish and [...] : 12-Dec-2015 End : 16-Jun-2016 Inactive Comments:per [facility] er Topamax 100 MG Oral Tablet [...] 03-Jan-2018 Inactive Comments:1 rambo as directed ZOSTAVAX, 44288LDG/0.65ML (Subcutaneous Solution Reconstituted) 1 For Solution once [...] Start : 04-Jan-2017 End : 04-Jan-2017 Discontinued Comments:[facility] er FLEXERIL, 10MG (Oral Tablet) 1 [...] : 13-Nov-2013 End : 13-Nov-2013 Discontinued Comments:ID [id number] Medrol 4 MG Oral Tablet Therapy Pack [...] 18-Jan-2017 End : 27-Jul-2017 Discontinued Vitamin D3 08457 UNIT Oral Tablet 1 (one) Tablet Tablet once a week for 60 days Quantity: 8 {Tablet} Refills: 0 Ordered:04-Jan-2017 Slarb ORDER DESK CALLERFaraza Start : 24-Nov-2016 End : 04-Jan-2017 Discontinued [...] for Tdap vaccination (Renamed from Need for jiejgjpwkr-qrmgjta-rnrnydovi (Tdap) vaccine, adult/adolescent) (Z23, V06.1) Status: Inactive as of 12-Dec-2015 Other and unspecified hyperlipidemia (E78.5, 272.4) Status: Inactive as of 24-Jul-2013 Pharyngitis, acute (J02.9, 462) Comments: rapid strep negativeCulture Status: Inactive as of 20-Jan-2016 Pneumonitis (J18.9, 486) Status: Inactive as of 14-May-2014 Pre-operative exam (Renamed from Preop examination) (Z01.818, V72.84) Comments: Getting 4 tooth out 07/17 next week, [facility] MARTHA has CPAP but not been using it for 2 years, need to see Bavis for retitration.Cr : 1.77 , repeat labs, US kidneyDM type 2: HBa1c 5.4 BMI:(obesit y increase the risk of wound infection, PE.Not malnourishedLabs:CBCCMPPT/INRtype and screen gel(55176)EK06/10/16: no acute changesHas good social support and [...] under good control Patient to use Mucinex vruo-fos-thdaabl which helped her. Status: Inactive as of [...] Completed Comments: 2000 Tubal ligation 1963 Completed [facility] Left endolymphatic sac Completed decompression with shunt and middle ear infusion with decadron 03/05 Date Value Details 01-Aug-2018 CTA Chest W/WO Contrast Result: Comments: See Note; NOTES: [facility] Imaging Services [address] [place] [address] CTA Chest W/WO Contrast MR#: [id number] Acct: [id number] Name: ELIZABETH TORO Rep #: [id number] : 1950 F 67 From: Hardeep Calix MD PCP: Eli Bowman NP Status: REG CLI Study: CTA Chest W/WO Contrast Date of Exam: 08/01/18 Exam# [id number] Ordering Dr: Eli Bowman STUDY: CTA CHEST/T [...] Service support , CC: Eli Bowman NP Hospital Plan Administrator: Signed 29-Jul-2018 Chest PA and Lateral Result: Comments: See Note; NOTES: [facility] Imaging Services [address] [place] [address] Chest PA and Lateral MR#: [id number] Acct: [id number] Name: ELIZABETH TORO Rep #: [id number] : 1950 F 67 From: Cami Klein MD PCP: Eli Bowman NP Status: REG CLI Study: Chest PA and Lateral Date of Exam: 07/29/18 Exam# [id number] Ordering Dr: Eli Bowman STUDY: X-RAY CHEST [...] Service support , CC: Eli Bowman NP Hospital Plan Administrator: Signed 21-Apr-2018 Downtime Report Result: Comments: See Note; NOTES: [facility] Medical Records Department [address] [place] [address] Downtime Report MR#: [id number] Acct: [id number] Name: ELIZABETH TORO Rep #: : 1950 67 From: Alon Klein PCP: Eli Bowman NP Status: REG RCR This patient was seen during an EMR downtime April 04, 2018 - April 11, 2018. This patient may have a combination of p aper and electronic documentation or all paper documentation. All documentation is viewable within the e-chart portion of [facility] for each patient visit. 12-Apr-2018 NCS and/or EMG Patient Result: Comments: See Note; NOTES: [facility] Pulmonary Services/Neurology [address] [place] [address] MR#: [id number] Acct: [id number] Name: ELIZABETH TORO Rep #: [id number] : 1950 67 From: Kal Hernandez MD Referring Dr: Eli Bowman NP Status: REG CLI Ordering Dr: Date: Location: [facility] Sex: F C NCS and/or EMG Patient [...] ____ Kal Hernandez MD CC: Eli Bowman NUCLEAR MEDICINE CHIEF TECHNOLOGIST; Kal Hernandez MD Date Dictated: 04/12/18949 Date Transcribed: 04/12/18949 Hospital Plan Administrator: MOHIT Signed 01-Feb-2018 PT D/C Summary (1) Result: Comments: See Note; NOTES: [facility] Physical Therapy [facility] [address] [place] [address]. [address] [place], [place] [address] Fax REHABILITATION SERVICES DISCHAR SUMMARY MR#: [id number] Acct: [id number] Name: ELIZABETH TORO Rep #: [id number] : 1950 67 From: Cristopher Francis PT, ATC Referring DrJose: Mayda Dobbins DO Status: REG R Insurance: [facility] PART A B PHYSICIAN [place] [employer] HP - PT D/C Summary [...] please feel free to call me at [phone]. Thank you for the referral of this patient. Sincerely, Cristopher Francis PT, <Electronically signed by Andrea Francis PT, ATC> 02/01/18 0823 CC: Eli Bowman NUCLEAR MEDICINE CHIEF TECHNOLOGIST; Mayda Dobbins DO [facility] Signed 30-Dec-2017 Inital Evaluation (1) - PT Result: Comments: See Note; NOTES: [facility] Physical Therapy [facility] [place] [address] Fax REHABILITATION SERVICES INITIAL EVALUATION MR#: [id number] Acct: [id number] Name: ELIZABETH TORO Rep #: [id number] : 1950 67 From: Cristopher Francis PT, ATC Referring DrJose: Mayda Dobbins DO Status: REG RCR Insurance: [employer] PART A B PHYSICIAN [employer] [...] to be FAXED BACK to us at [phone] for Medicare purposes. Please let me know if there are questions or concerns regarding this plan of care. Physician Signature: Date: <Electronically signed by Cristopher Francis PT, ATC> 12/30/17 1056 CC: Eli Bowman NP; Mayda Dobbins DT: 0 12/30/17 [facility] Signed For Medicare only, by signing this I certify the plan of care. Physicians Signature Date 08-Oct-2017 Operative Report Result: Comments: See Note; NOTES: [facility] Medical Records Department [address] [place] [address] Operative Report 10/08/172017 MR#: [id number] Acct: [id number] Name: XAVIER TORO Rep #: [id number] : 1950 67 From: Oscar Winston MD PCP: Eli Bowman NP Status: REG SDC Y Location: [place] [address] Problem List (1) Intrinsic (urethral) sphincter deficiency [...] Discharge Instruction Result: Comments: See Note; NOTES: [facility] Medical Records Department [address] [place] [address] Instructions for Home/Discharge Instructions 10/08/171950 MR#: [id number] Acct: [id number] Name: ELIZABETH TORO Rep #: [id number] : 1950 67 From: Oscar Winston MD PCP: Eli Bowman NP Status: REG [facility] Discharge Diet: Light diet - advance as [...] and Lateral Result: Comments: See Note; NOTES: [facility] Imaging Services [address] [place] [address] Chest PA and Lateral MR#: [id number] Acct: [id number] Name: JAYYELIZABETH A Rep #: [id number] : 1950 F 67 From: Yury Arthur MD PCP: Eli Bowman Status: REG CLI Study: Chest PA and Lateral Date of Exam: 08/30/17 Exam# [id number] Ordering Dr: Mayda Dobbins DO STUDY: X-RAY [...] , CC: Eli Bowman; Mayda Dobbins DO Hospital Plan Administrator: Signed 20-Jul-2017 L/S Spine Min 4 Views Result: Comments: See Note; NOTES: [facility] Imaging Services [address] [place] [address] L/S Spine Min 4 Views MR#: [id number] Acct: [id number] Name: ELIZABETH TORO Rep #: [id number] : 1950 F 66 From: Dionte Lujan DO PCP: Eli Bowman Status: REG CLI Study: L/S Spine Min 4 Views Date of Exam: 07/20/17 Exam# [id number] Ordering Dr: Edita Cabarl MD STUDY: X-RAY - LUMBAR SPINE REASON [...] Fax CC: Eli Bowman; Edita Cabral MD Hospital Plan Administrator: Signed 20-Jul-2017 Shoulder min 2 Views Result: Comments: See Note; NOTES: [facility] Imaging Services [address] [place] [address] Shoulder min 2 Views MR#: [id number] Acct: [id number] Name: ELIZABETH TORO Rep #: [id number] : 1950 F 66 From: Dionte Lujan DO PCP: Eli Bowman Status: REG CLI Study: Shoulder min 2 Views Date of Exam: 07/20/17 Exam# [id number] Ordering Dr: Edita Cabral MD STUDY: X-RAY - RIGHT [facility] REASON FOR EXAM: Female, 66 years [...] , CC: Eli Bowman; Edita Cabral MD Hospital Plan Administrator: Signed 11-May-2017 PT D/C Summary (1) Result: Comments: See Note; NOTES: [facility] Physical Therapy [facility] [address] [place], [place] [address] Fax REHABILITATION SERVICES DISCHAR GE SUMMARY MR#: [id number] Acct: [id number] Name: ELIZABETH TORO Rep #: [id number] : 1950 66 From: Naomi COMER Referring [...] please feel free to call me at [phone]. Thank you for the referral of this patient. Sincerely, Naomi Osorio <Electronically signed by Naomi Osorio MPT> 09/17 0919 CC: Nunu Root; Eli Bowman Signed 14-Apr-2017 Inital Evaluation (1) - PT Result: Comments: See Note; NOTES: [facility] Physical Therapy [facility] [address] [place] [address] Fax REHABILITATION SERVICES INITIAL EVALUATION MR#: [id number] Acct: [id number] Name: ELIZABETH TORO Rep #: [id number] : 1950 66 From: Naomi COMER Referring [...] to be FAXED BACK to us at [phone] for Medicare purposes. Please let me know if there are questions or concerns regarding this plan of care. Physician Signature: Date: <Electronically signed by Naomi Osorio MPT> 04/14/17 1906 CC: Nunu Root; Eli Bowman Signed For Medicare only, by sign ing this I certify the plan of care. Physicians Signature Date 08-Apr-2017 Knee 4 or More Views Result: Comments: See Note; NOTES: [facility] Imaging Services [address] [place] [address] Verdana 4d Knee 4 or More Views MR#: [id number] Acct: [id number] Name: ELIZABETH TORO p #: [id number] : 1950 F 66 From: Chalino Mancia MD PCP: Eli Bowman Status: REG CLI Study: Knee 4 or More Views Date of Exam: 04/08/17 Exam# [id number] Ordering Dr: Mayda Dobbins DO STUDY: X-RAY [...] , CC: Eli Bowman; Mayda Dobbins DO Hospital Plan Administrator: Signed 08-Apr-2017 Knee 4 or More Views Result: Comments: See Note; NOTES: [facility] Imaging Services [address] [place] [address] Verdana 4d Knee 4 or More Views MR#: [id number] Acct: [id number] Name: JAYYELIZABETH A Re p #: [id number] : 1950 F 66 From: Chalino Mancia MD PCP: Eli Bowman Status: REG CLI Study: Knee 4 or More Views Date of Exam: 04/08/17 Exam# [id number] Ordering Dr: Mayda Dobbins DO STUDY: X-RAY [...] , CC: Eli Bowman; Mayda Dobbins DO Hospital Plan Administrator: Signed 15-Mar-2017 Sleep Study Report Result: Comments: See Note; NOTES: [facility] SLEEP DISORDER CENTER [address] [place] [address] Polysomnography with NCPAP MR#: [id number] Acct: [id number] Name: ELIZABETH TORO p #: [id number] : 1950 66 From: Kal Hernandez MD [...] version). Please note that a reference to [facility] AHI in this report is consistent with the current Hypopnea definition according to Medicare Criteria and an AASM AHI reference is consistent with the current Hypopnea defini tion according to the AASM criteria and is recognized by [facility] as the RDI. PROCEDURE: The study was attended continuously by a facilities operations technician. Monitored parameters included left and right [...] body mass index of 30.9 and an [place] Sleepiness Scale score of 6. There is [...] requested. Kal Hernandez MD T: NTS JOB: [id number] CC: Kal Hernandez MD 115 1151 03/15/17 1451 <Electronically signed by Kal Hernandez MD> Date Kal Hernandez MD Co-signature (if applicable) Date Signed 05-Jan-2017 Esophagus Only Result: Comments: See Note; NOTES: [facility] Imaging Services [address] [place] [address] Verdadamian 4d Esophagus Only MR#: [id number] Acct: [id number] Name: ELIZABETH TORO Rep #: [id number] : 1950 F 66 From: Gabriela Ragland MD PCP: Eli Bowman Status: REG CLI Study: Esophagus Only Date of Exam: 01/05/17 Exam# [id number] Ordering Dr: Sofia Bragg MD STUDY: AIR-CONTRAST [...] , CC: Eli Bowman; Sofia Bragg MD Hospital Plan Administrator: Signed 29-Dec-2016 Emergency Department Summary Result: Comments: See Note; NOTES: [facility] Medical Records Department [address] [place] [address] Emergency Department Summary MR#: [id number] Acct: [id number] Name: XAVIER TORO Rep #: [id number] : 1950 66 From: Sofia Bragg MD PCP: Eli Bowman Status: DEP ER DATE OF SERVICE: 12/29/2016 CHIEF COMPLAINT: Sore throat. HISTORY OF PRESENT ILLNESS: This is a 66-year- old woman that states she was at [employer], choked on a piece of potato 5 [...] the case with Dr. Pena who is merchandising execution associate for GI and he suggested ordering an [...] C: Eli Pena MD T: NTS JOB: [id number] 12/29/16 <Electronically signed by Sofia Bragg MD> Date Sofia Bragg MD Cosigner Signature (If Indicated): Date CC: Eli Bowman; Junior Pena Date Dictated: 12/29/161828 Date Transcribed: 12/29/161828 Hospital Plan Administrator: Signed 29-Dec-2016 Discharge Instruction Result: Comments: See Note; NOTES: [facility] Medical Records Department [address] [place] [address] Discharge Instruction 12/29/161829 MR#: [id number] Acct: [id number] Name: ELIZABETH TORO Rep #: [id number] : 1950 66 From: Sofia Bragg MD [...] your Primary Care Provider. Call [facility] ([phone] ) or report to the closest Emergency Room. Call 911 if necessary. 12/29/161832 <Electronically signed by Sofia Bragg MD> Date Sofia elliott MD Cosigner Signature (If Indicated): Date CC: Eli Bowman 07-Aug-2016 Sleep Study Report Result: Comments: See Note; NOTES: [facility] SLEEP DISORDER CENTER [address] [place] [address] Split Night Sleep Study MR#: [id number] Acct: [id number] Name: ELIZABETH TORO Rep #: [id number] : 1950 65 From: Kal Hernandez MD [...] version). Please note that a reference to [facility] AHI in this report is consistent with the current Hypopnea definition according to Medicare Criteria and an [facility] AHI reference is consistent with the current Hypopnea defin ition according to the AASM criteria and is recognized by [facility] as the RDI. PROCEDURE: The study was attended continuously by a facilities operations technician. Monitored parameters included left and right [...] a body mass index of 29.3 and [place] Sleepiness Scale score of 2. There is [...] humidity. Kal Hernandez MD T: NTS JOB: [id number] CC : Kal Hernandez MD 1144 1144 08/07/16 0959 <Electronically signed by Kal Hernandez MD> Date Kal Hernandez MD Co-signature (if applicable) Date Signed -Aug-2016 Kidney and Bladder Result: Comments: See Note; NOTES: [facility] Imaging Services [address] [place] [address] Verdana 4d Kidney and Bladder MR#: [id number] Acct: [id number] Name: ELIZABETH TORO Rep #: [id number] : 1950 F 65 From: Anibal Lan MD PCP: Donnie Gonzales Status: [facility] CL Study: Kidney and Bladder Date of Exam: 08/04/16 Exam# [id number] Ordering Dr: Beto Henry MD UDY: RENAL [...] Anibal Lan MD at 11:16 EDT Tel [phone], Service support [phone], CC: Soumya Henry M.D.; Donnie Gonzales Hospital Plan Administrator: Signed 23-Jun-2016 Operative Report Result: Comments: See Note; NOTES: [facility] Medical Records Department [address] [place] [address] Operative Report MR#: [id number] Acct: [id number] Name: ELIZABETH TORO Rep #: [id number] : 1950 65 From: Gm Brush MD PCP: Donnie Gonzales Status: REG [facility] DATE OF SERVICE: 06/22/2016 DATE OF PROCEDURE: June 22, 2016 SURGEON: Gm Brush M.D. MACHINE COMPOSITOR: Lia jacinto. ANESTHESIA: Gem Shelby and Frank [...] ovaries. Gm Brush MD T: NTS JOB: [id number] 06/23/16 0725 <Electronically signed by Gm Brush MD> Date __ Gm Brush MD Cosigner Signature (If Indicated): Date CC: Gm Brush MD; Donnie Nolasco Dicta nahed: 06/22/161102 Date Transcribed: 06/22/161102 Hospital Plan Administrator: Signed 22-Jun-2016 Discharge Instruction Result: Comments: See Note; NOTES: [facility] Medical Records Department [address] [place] [address] Instructions for Home/Discharge Instructions 06/22/16 0904 MR#: [id number] Acct: [id number] Name: ELIZABETH TORO Rep #: [id number] : 1950 65 From: Gm Brush MD PCP: Donnie Gonzales Status: REG [facility] Discharge Diet: No Restrictions Discharge Activity: Return [...] CC: Donnie Gonzales 10-Jun-2016 ELECTROCARDIOGRAM, COMPLETE (ECG) (74576) Result: [MEASUREMENTS ANALYSIS] Date of Test: 06/10/2016 09:39:53; Heart Rate: 58; KS Interval: 208; QRS: 86; QT Interval: 480; Corrected QT Interval (QTc): 477; P Wave Union: 45; QRS Wave Union: 11; T Wave Union: 23; Blood Pressure: 112/70 [ECG DIAGNOSTIC STATEMENTS] Date of Test: 06/10/2016 09:39:53; Summary: Sinus Bradycardia - Negative T-waves -May be normal - possible Anteroseptal ischemia. BORDERLINE 13-Apr-2016 Operative Report Result: Comments: See Note; NOTES: [facility] Medical Records Department [address] [place] [address] Operative Report MR#: [id number] Acct: [id number] Name: XAVIER TORO Rep #: [id number] : 1950 65 From: Gm Brush MD PCP: Edita Cabral MD Status: [facility] DATE OF SERVICE: 04/13/2016 DATE OF PROCEDURE: [...] curettings. Gm Brush MD T: NTS JOB: [id number] 04/13/16 1838 <Electronically signed by Gm Brush MD> Date Gm Brush MD Cosigner Signature (If Indicated): Date CC: Edita Young; Gm Brush MD Date Dictated: 04/13/161030 Date Transcribed: 04/13/161030 Hospital Plan Administrator: Signed 13-Apr-2016 Discharge Instruction Result: Comments: See Note; NOTES: [facility] Medical Records Department [address] [place] [address] Instructions for Home/Discharge Instructions 04/13/16 1003 MR#: [id number] Acct: [id number] Name: ELIZABETH TORO Rep #: [id number] : 1950 65 From: Gm Brush MD PCP: Edita Cabral MD Status: REG [facility] Discharge Diet: No Restrictions Discharge Activity: R [...] mg PO DAILY 04/10/16 Hydrocodone Bitart/Apap 5-325 [[place] 5MG-325MG] 1 tablet PO Q4H PRN PRN #10 tablet 04/13/16 The followi ng prescriptions were given: Hydrocodone Bitart/Apap 5-325 [[place] 5MG-325MG] 1 tablet PO Q4H PRN PRN #10 tablet PRN Reason: Mod-Severe Pain () Please Follow Up With: Gm Brush When: 2-3 jason bowers 04/13/16 1004 <Electronically signed by Gm Brush MD> Date Gm Brush MD CC: Edita Cabral MD 22-Mar-2016 Emergency Department Summary Result: Comments: See Note; NOTES: [facility] Medical Records Department [address] [place] [address] Emergency Department Summary MR#: [id number] Acct: [id number] Name: ELIZABETH TORO Rep #: [id number] : 1950 65 From: Nando Fuller MD [...] C: Edita Brush MD T: NTS JOB: [id number] 03/22/16 0247 <Electronically signed by Nando Fuller MD&a mp;#62; Date Nando Fuller MD Cosigner Signature (If Indicated): Date CC: Edita Cabral MD; Otilia Brush MD Date Dictated: 03/21/1650 Date Transcribed: 03/21/1650 Hospital Plan Administrator: Signed 21-Mar-2016 Discharge Instruction Result: Comments: See Note; NOTES: [facility] Medical Records Department [facility] [place] [address] Discharge Instruction 03/21/16 0048 MR#: [id number] Acct: [id number] Name: ELIZABETH TORO Rep #: [id number] : 1950 65 From: Nando Fuller MD [...] ems, contact your doctor. Call [facility] ([phone]) or report to the closest Emergency Room. Call 911 if necessary. 03/21/16 0049 <Electronically signed by Nando Fuller MD&#6 2; Date Nando Fuller MD Cosigner Signature (If Indicated): Date CC: Edita Cabral MD 20-Mar-2016 Transvaginal Non- Result: Comments: See Note; NOTES: [facility] Imaging Services [address] [place] [address] Verdana 4d Transvaginal Non- MR#: [id number] Acct: [id number] Name: ELIZABETH DIAZ Rep #: [id number] : 1950 F 65 From: Jose Fu PCP: Edita Cabral MD Status: REG ER Study: Transvaginal Non- Date of Exam: 03/20/16 Exam# [id number] Ordering Dr: Oz Fuller MD STUDY: ULTRASOUND [...] DO at 0:42 EDT , Service support [phone], Fax CC: Edita Cabral MD; Nando Fuller MD Hospital Plan Administrator: Signed 25-Feb-2016 Esophagus Only Result: Comments: See Note; NOTES: [facility] Imaging Services [address] [place] [address] Verdana 4d Esophagus Only MR#: [id number] Acct: [id number] Name: XAVIER TORO Rep #: [id number] : 1950 F 65 From: Anibal Lan MD PCP: Edita Cabral MD Status: REG CLI Study: Esophagus Only Date of Exam: 02/25/16 Exam# [id number] Ordering Dr: Donnie Gonzales STUDY: X-RAY - [...] Anibal Lan MD at 10:35 EDT Tel [phone], Service support [phone], Fax RAD/Esophagus Only IMPRESSION: Normal plain film x-ray examination (barium swallow) of the esophagus. Electronically Signed: Anibal Lan MD at 10: 35 EDT Tel [phone], Service support [phone], CC: Edita Cabral MD; Donnie Gonzales Hospital Plan Administrator: Signed 25-Feb-2016 Esophagus Only Result: Comments: See Note; NOTES: [facility] Imaging Services [address] [place] [address] Verdana 4d Esophagus Only MR#: [id number] Acct: [id number] Name: XAVIER TORO Rep #: [id number] : 1950 F 65 From: Anibal Lan MD PCP: Edita Cabral MD Status: REG CLI Study: Esophagus Only Date of Exam: 02/25/16 Exam# [id number] Ordering Dr: Donnie Gonzales ADDENDUM by Anibal Lan MD on 03/31/16 at 0747 ADDENDUM This is an addendum report for PQRS purposes. 19 images were obtained. Electronically Signed: Anibal Lan MD at 7:47 EDT Tel [phone], Service support [phone], 03/31/16 0747 Date cc: Edita Cabral MD; [...] Anibal Lan MD at 10:35 EDT Tel [phone], Service support [phone], RAD/Esophagus Only IMPRESSION: Normal plain film x-ray examination (barium swallow) of the esophagus. Electronically Signed: Anibal Lan MD at 10:35 EDT Tel [phone], Service support [phone], CC: Edita Cabral MD; Donnie Gonzales Hospital Plan Administrator: Signed 10-Dec-2015 12 Lead Electrocardiogram Result: Comments: See Note; NOTES: [facility] Cardiovascular Services [address] [place] [address] 12 Lead EKG 12/08/15 1551 MR#: [id number] Acct: [id number] Name: ELIZABETH DASILVA Rep #: [id number] : 1950 65 From: Francisco Muller MD [...] ECG Confirmed by FRANCISCO MULLER MD ([id number]), assistant editor ZUNILDA KLEIN ([id number]) on 12/10/2015 9:33:10 AM Referred By: ROMEL Confirmed By:FRANCISCO MULLER MD 12/10/15 0933 Date ___ Francisco Muller MD CC: Edita Cabral MD Date Dictated: 12/08/151550 Date Transcribed: 12/08/151550 Hospital Plan Administrator: Signed 10-Dec-2015 Emergency Department Summary Result: Comments: See Note; NOTES: [facility] Medical Records Department [address] [place] [address] Emergency Department Summary MR#: [id number] Acct: [id number] Name: ELIZABETH TORO Rep #: [id number] : 1950 65 From: Sisi Severino MD [...] C: Edita Cabral MD T: NTS JOB: [id number] 12/10/15 0232 <Electronically deepti d by Sisi Severino MD> Date Sisi Severino MD Cosigner Signature (If Indicated): Date Dominguez C: Edita Cabral MD Date Dictated: 12/08/151705 Date Transcribed: 12/08/151705 Hospital Plan Administrator: Signed 08-Dec-2015 Discharge Instruction Result: Comments: See Note; NOTES: [facility] Medical Records Department [address] [place] [address] Discharge Instruction 12/08/15 1659 MR#: [id number] Acct: [id number] Name: ELIZABETH TORO Rep #: [id number] : 1950 65 From: Sisi Severino MD [...] problems, contact your doctor. Call [facility] ([phone]) or report to the closest Emergency Room. Call 911 if necessary. 12/08/15 1701 <Electronically signed by Sisi young MD> Date Sisi Severino MD Cosigner Signature (If Indicated): Date CC: Edita Cabral MD 08-Dec-2015 Chest PA and Lateral Result: Comments: See Note; NOTES: [facility] Imaging Services [address] [place] [address] Verdana 4d Chest PA and Lateral MR#: [id number] Acct: [id number] Name: ELIZABETH TORO Rep #: [id number] : 1950 F 65 From: Malaika Diana MD PCP: Edita Cabral MD Status: REG ER Study: Chest PA and Lateral Date of Exam: 12/08/15 Exam# [id number] Ordering Dr: Sisi Severino MD STUDY: X-RAY [...] MD at 16:41 EST , Service support [phone], RAD/Chest PA and Lateral IMPRESSION: No acute disease is demonstrated. Electronic ally Signed: Malaika Diana MD at 16:41 EST , Service support [phone], CC: Edita Cabral MD; Sisi Severino MD Hospital Plan Administrator: Signed 16-Sep-2015 EKG (56581) Result: [MEASUREMENTS ANALYSIS] Date of Test: 09/16/2015 09:46:37; Heart Rate: 74; KS Interval: 192; QRS: 88; QT Interval: 406; Corrected QT Interval (QTc): 430; P Wave Union: 28; QRS Wave Union: -3; T Wave Union: -1; Blood Pressure: 104/60 [ECG DIAGNOSTIC STATEMENTS] Date of Test: 09/16/2015 09:46:37; Summary: Sinus Rhythm Low voltage in precordial leads. - Nonspecific T-abnormality. ABNORMAL 11-Feb-2015 Kidney and Bladder Result: Comments: See Note; NOTES: [facility] Imaging Services [address] [place] [address] Ultrasound Report MR#: [id number] Acct: [id number] Name: ELIZABETH TORO Rep #: [id number] : 1950 F 64 From: Mina Cade MD PCP: Edita Cabral MD Status: REG CLI Study: Kidney and Bladder Date of Exam: 02/11/15 Exam# [id number] Ordering Dr: Edita Cabral MD STUDY: RE [...] MD at 23:11 EDT , Service support [phone], CC: Edita Cabral MD Hospital Plan Administrator: Signed 24-Jul-2014 PT Discharge Summary Result: Comments: See Note; NOTES: [facility] Physical Therapy [facility] [address] [place] [address]. [address] [place], [place] [address] Fax REHABILITATION SERVICES DISCHARGE SUMMARY MR#: [id number] Acct: [id number] Name: ELIZABETH TORO Rep #: [id number] : 1950 63 From: Naomi Osorio Referring [...] clinic. Naomi Osorio, PT T: NTS JOB: [id number] <Electronically signed by Faraz Osorio > 07/24/14 1350 CC: Signed 15-Jun-2014 PT Discharge Summary Result: Comments: See Note; NOTES: [facility] [address] [place] [address]. [address] [place] [address] Fax REHABILITATION SERVICES DISCHARGE SUMMARY MR#: [id number] Acct: [id number] Name: ELIZABEHT TORO Rep #: [id number] : 1950 63 From: Naomi Osorio Referring [...] our clinic. Sincerely, Naomi Osorio, PT T: [facility] JOB: [id number] <Electronically signed by Naomi Osorio & amp;#62; 06/15/14 1410 CC: Signed 25-May-2014 Inital Evaluation - PT Result: Comments: See Note; NOTES: [facility] [address] [place] [address]. [address] [place] [address] Fax REHABILITATION SERVICES INITIAL EVALUATION MR#: [id number] Acct: [id number] Name: ELIZABETH TORO Rep #: [id number] : 1950 63 From: Naomi Osorio Referring Dr.: Edita Cabral MD Status: REG RCR Insurance: [facility] PART A B Eval Date: PHYSICIAN MUTUAL [...] anterolateral shoulder. She is right-handed. 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 Naomi Osorio, PT T: MICHAEL JOB: [id number] <Electronically signed by Naomi Osorio > 4 1241 CC: Signed For Medicare only, by signing this I certify the plan of care. Physicians Signature Date 23-May-2014 Nuclear Stress Test - Chemical Result: Comments: See Note; NOTES: [facility] Imaging Services [address] [place] [address] Nuclear Medicine Report MR#: [id number] Acct: [id number] Name: ELIZABETH TORO Rep #: [id number] : 1950 F 63 From: Tano Nielsen MD PCP: Edita Cabral MD Status: REG CLI Study: Nuclear Stress Test - Chemical Date of Exam: 05/23/14 Exam# [id number] Ordering Dr: Álvaro Cabral MD EXERCISE TOLERANCE [...] LVEF of 61%. CC: Edita Cabral MD Hospital Plan Administrator: SHEKHAR Signed 14-May-2014 Shoulder min 2 Views Result: Comments: See Note; NOTES: [facility] Imaging Services [address] [place] [address] Radiology Report MR#: [id number] Acct: [id number] Name: ELIZABETH TORO Rep #: [id number] : 1950 F 63 From: Hardeep Dumont MD PCP: Erna Kingston DO Status: REG CLI Study: Shoulder min 2 Views Date of Exam: 05/14/14 Exam# [id number] Ordering Dr: Edita Cabral MD STUDY: X-RAY [...] Silvio Dumont MD at 12:18 EDT , TheFamilyi ce support [phone], CC: Edita Cabral MD; Erna Kingston DO Hospital Plan Administrator: Signed 30-Apr-2014 CTA Chest W/WO Contrast Result: Comments: See Note; NOTES: [facility] Imaging Services [address] [place] [address] CAT Scan Report MR#: [id number] Acct: [id number] Name: ELIZABETH TORO Rep #: [id number] : 1950 F 63 From: Hardeep Calix MD PCP: Erna Kingston DO Status: REG CLI Study: CTA Chest W/WO Contrast Date of Exam: 04/30/14 Exam# [id number] Ordering Dr: Erna Kingston DO STUDY: CTA CHEST REASON FOR EXAM: Female, 63 years old. Chest pain for 3 weeks. 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 RADIATION DOSAGE (If Supplied By Facility): CTDIvol = ( 16.24 ) mGy, DLP = ( 627.32 ) mGycm MARJROIE HNIQUE: The examination was performed with the [...] at 19 :01 EDT , Service support [phone], CC: Erna Kingston DO Hospital Plan Administrator: Signed Family History Unknown Family Member Name [...] Description Value Details :57 CREATININE FINGERSTICK Comments: [facility] [address] [place] [address] EGFR WB 55.0000 mL/min (Abnormal) CREATININE WB 1.1 mg/dL (Abnormal) Range: 0.55-1.02 35-Cvv-646882:19 D-Dimer (09582) Comments: PATIENT NOT FASTINGPERFORMED BY: [employer] Wttjsr3845 [facility] [id number] D-Dimer 0.57 {mg/L_FEU} (Abnormal) Range: 0.00-0.49 Comments: According to the assay 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 .D-dimer values increase with age and this can make VTE exclusion ofan older pop ulation difficult. To address this, the [employer], based on best available evidence [...] and an80 year old 0.80 mg/L FEU. 92-Jda-192594:19 Troponin I (51802) Comments: PATIENT NOT FASTINGPERFORMED BY: [facility]Fjajwp8624 [facility] [id number] Troponin I <0.01 ng/mL (Normal) Range: 0.00-0.04 26-Pcd-591996:19 CPK MB FRACTION (61180) Comments: PATIENT NOT FASTINGPERFORMED BY: [employer] [facility]Epjzyy1621 [facility] [id number] Creatine Kinase (CK), MB 2.5 ng/mL (Normal) Range: 0.0-5.3 36-Mol-429412:19 CREATINE KINASE TOTAL (64368) Comments: PATIENT NOT FASTINGPERFORMED BY: [facility] Inbumd[address] [place] [id number] Creatine Kinase,Total 103 U/L (Normal) Range: 24-173 35-Lkg-11025:16 CBC-Complete Blood Cnt No Diff Comments: [facility] [address] [place], [address] MPV 10.5 fL (Normal) Range: 6.2-12.0 [...] Range: 4.4-11.0 :16 Microalb:Creat Ratio,Random UR Comments: [facility] [address] [place], [address] MALB:CREAT Test not performed {mg/g_CRE} (Normal) MICROALBUMIN,UR < 5.0 mg/L (Normal) UR CREAT < 13.00 mg/dL (Normal) :16 PTHIN 51.5 pg/mL (Normal) Comments: [facility] [address] [place], [address] Range: 18.4-80.1 35-Sba-99377:16 Renal Profile Comments: [facility] [address] [place], [address] CO2 28.0 mmol/L (Normal) Range: 21.0-32.0 [...] Comments: Please note revised GLUCOSE reference range xbwuecrih51/02/2018. 15-Odv-68050:16 Vitamin D,25 Hydroxy Comments: [facility] [address] [place], [place], [address] Vitamin D 25-OH 69.4 ng/mL (Normal) Range: 29.95-100.01 Comments: Vitamin D 25(OH) Status Range Deficiency <20 ng/mL (50nmol/L) Insuffciency 20 - 30 ng/mL (50 - 75 nmol/L) Sufficiency 30 - 100 ng/mL (75 - 250 nmol/L) Toxicity >100 ng/mL (>250 nmol/L) :04 HgA1C , Office (15560) HgA1C , Office 5.5 % (Normal) Range: 4.6 - 7.1 :23 CALCIFEDIOL (16261) Comments: PATIENT WAS FASTINGPERFORMED BY: [facility]Ynhnfd7205 [facility] [id number] Vitamin D, 25-Hydroxy 43.2 ng/mL (Normal) Range: 30.0-100.0 Comments: Vitamin D deficiency has been defined by the [place] ofMedicine and an Endocrine Society practice guideline as alevel of serum 25-OH vitamin D less than 20 ng/mL (1,2).The Endocrine Society went on to further define vitamin Dinsufficiency as a level between 21 and 29 ng/mL (2).1. IOM ([place] of Medicine). 2010. Dietary reference intakes for calcium and D. [place]: The National Academies Press.2. Azael MF, Leslee NC, Hillary PHILLIPS, et al. Evaluation, treatment, and prevention of vitamin D deficiency: an Endocrine Society clinical practice guideline. JCEM. 2010; 96(7):1911-30. 46-Dyo-51363:23 CBC, Platelets & Auto Diff Comments: PATIENT WAS FASTINGPERFORMED BY: [facility]Biocpe9443 [facility] [id number] (99990) Immature Grans (Abs) 0.0 {x10E3/uL} (Normal) Range: [...] Panel, Comprehensive Comments: PATIENT WAS FASTINGPERFORMED BY: [employer] Dpeuqj7745 [facility] [id number] (48899) ALT (SGPT) 15 [iU]/L (Normal) Range: 0-32 [...] CREATININE RATIO Comments: PATIENT WAS FASTINGPERFORMED BY: [employer] WirelessCibola General HospitalQkwwun7121 [facility] [id number] (40055) AND (75319) Alb/Creat Ratio <5.6 {mg/g_creat} (Normal) Range: 0.0-30.0 Albumin, Urine <3.0 ug/mL (Normal) Creatinine, Urine 53.5 mg/dL (Normal) 97-Ffl-024799:31 Metabolic Panel, Basic Comments: PATIENT NOT FASTINGPERFORMED BY: [facility] [place] [id number] (61806) Calcium, Serum 9.9 mg/dL (Normal) Range: 8.7-10.3 [...] (Normal) Range: 65-99 02-Nov-20178:55 HgA1C , Office (13651) Comments: 5.5 HgA1C , Office 5.5 % (Normal) Range: 4.6 - 7.1 3-Ooi-113493:22 VITAMIN B12 AND FOLATES Comments: today; PATIENT NOT FASTINGPERFORMED BY: [facility] [place] [id number] (72174) Folate (Folic Acid), Serum >20.0 ng/mL (Normal) Comments: A serum folate concentration of less than 3.1 ng/mL isconsidered to represent clinical deficiency. Vitamin B12 655 pg/mL (Normal) Range: 232-1245 Comments: Please note reference interval change 91-Hjd-346248:58 CALCIFEDIOL (55504) Comments: PATIENT NOT FASTINGPERFORMED BY: Cherry Bird[address] [employer] [place] [id number] Vitamin D, 25-Hydroxy 25.2 ng/mL (Abnormal) Range: 30.0-100.0 Comments: Vitamin D deficiency has been defined by the [place] ofMedicine and an Endocrine Society practice guideline as alevel of serum 25-OH vitamin D less than 20 ng/mL (1,2).The Endocrine Society went on to further define vitamin Dinsufficiency as a level between 21 and 29 ng/mL (2).1. IOM ([place] of Medicine). 2010. Dietary reference intakes for calcium and D. [place]: The National Academies Press.2. Azael MF, Leslee LEMON, Hillary PHILLIPS, et al. Evaluation, treatment, and prevention of vitamin D deficiency: an Endocrine Society clinical practice guideline. JCEM. 2010; 96(7):1911-30. :58 TSH (THYROID STIMULATING Comments: PATIENT NOT FASTINGPERFORMED BY: [employer] [facility] Eaftzd0862 [address] [employer] [id number] HORMONE) (15184) TSH 2.410 {uIU/mL} (Normal) Range: 0.450-4.500 :58 CBC WITH MANUAL DIFF (10598) Comments: PATIENT NOT FASTINGPERFORMED BY: [facility] Laubzg5798 [facility] MediaNov[facility] Centerin [place] [id number] Immature Grans (Abs) 0.0 {x10E3/uL} (Normal) Range: [...] 3.77-5.28 WBC 7.7 {x10E3/uL} (Normal) Range: 3.4-10.8 96-Ato-637266:58 Metabolic Panel, Comprehensive Comments: PATIENT NOT FASTINGPERFORMED BY: [facility] Jrsxmw9345 [facility] [id number] (15814) ALT (SGPT) 13 [iU]/L (Normal) Range: 0-32 [...] Glucose, Serum 90 mg/dL (Normal) Range: 65-99 3-Gpb-217570:07 Bedside Glucose Comments: [facility] [address] [place] [address] BEDSIDE GLU 100 mg/dL (Normal) Range: 70-110 Comments: MANAGEMENT OF PATIENT CARE PER NURSING PROTOCOL 65-Fhj-612716:14 D-Dimer Quantitative (DVT/PE) Comments: Order Date: 08/30/17Order Info: 10916-7 - [facility] [address]vjc[address] [place], [place], [address] D-DIMER QUANT 0.35 {FEU/ug/m} (Normal) Range: 0.27-0.49 Comments: NORMAL D-Dimer level (<0.50) indicates no DVT or PE. 62-Pkz-525864:44 Blood Glucose , Office (46912) Blood Glucose , 129 (Normal) Office :2 Request Problem Final report Comments: PATIENT NOT FASTINGPERFORMED BY: [employer] [facility] Ilgxnv4149 [facility] [id number] Information: MOUTH SRC:MO 1 (Normal) Comments: Inappropriate source for anaerobic culture. A routine aerobic culturewas initiated. Contact the Microbiology Lab for further information. :2 Test Code Change SPRCS (Normal) Comments: PATIENT NOT FASTINGPERFORMED BY: [employer] [facility] Yjooao3970 [facility] [id number] 1 Comments: Please note that the Microbiology test code was changed to reflectthe specimen source or transport received. :21 Upper Respiratory Culture Comments: PATIENT NOT FASTINGPERFORMED BY: [employer] [facility] Iwflho3879 [facility] [id number] Result 1 RRF (Normal) Comments: Routine respiratory duyen Upper Respiratory Culture Final report (Normal) :59 Metabolic Panel, Comprehensive Comments: Jul 2017; PATIENT NOT FASTINGPERFORMED BY: [employer] [facility] Ftanfl2600 [facility] [id number] (86097) ALT (SGPT) 16 [iU]/L (Normal) Range: 0-32 [...] Glucose, Serum 80 mg/dL (Normal) Range: 65-99 74-Pbx-108258:59 MAGNESIUM (41023) Comments: today; PATIENT NOT FASTINGPERFORMED BY: [facility] Qtqeup0319 [facility] [id number] Magnesium, Serum 2.2 mg/dL (Normal) Range: 1.6-2.3 :04 Blood Glucose , Office (53895) Blood Glucose , Office 111 (Normal) :04 HgA1C , Office (98739) HgA1C , Office 5.5 % (Normal) Range: 4.6 - 7.1 :03 CBC W/Diff, Automated Comments: [facility] [address] [place], [place], [address] ; another doc Absolute Lymph 2.35 {X10_3/ul} [...] (Normal) Range: 4.4-11.0 :03 Protein+Creatinine Ratio,Urine Comments: [facility] [address] [place], [place], [address] PROT:CRE RATIO 403 {mg/g_CRE} (Abnormal) Range: 0-200 PROTEIN,UR.RAN. < 6.0 mg/dL (Normal) UR CREAT 13.90 mg/dL (Normal) 54-Wpj-12743:03 PTH,INTACT Comments: [facility] [address] [place], [place], [address] PTH,Intact 34 pg/mL (Normal) Range: 14-72 04-Jts-03220:03 Renal Profile Comments: [facility] [address] [place], [place], [address] CO2 26.0 mmol/L (Normal) Range: 21.0-32.0 CL [...] 7-18 GLU 109 mg/dL (Normal) Range: 70-110 12-Naa-91276:03 Vitamin D 1,25-Dihydroxy Comments: [facility] (refer to report for specific site)refer to report for address and phone number VITD 26434 48.5 pg/mL (Normal) Range: 19.9-79.3 Comments: Performed at: [address] [id number] Director: Navdeep Medley MD, Phone: [phone] 79-Hfo-262328:06 Metabolic Panel, Comprehensive Comments: PATIENT NOT FASTINGPERFORMED BY: [facility]Bzybgs7476 [facility] [id number] (92119) ALT (SGPT) 11 [iU]/L (Normal) Range: 0-32 [...] Glucose, Serum 78 mg/dL (Normal) Range: 65-99 51-Ims-082572:06 CBC, Platelets & Auto Diff Comments: PATIENT NOT FASTINGPERFORMED BY: [facility] Ajctya9930 [facility] [id number] (78037) Immature Grans (Abs) 0.0 {x10E3/uL} (Normal) Range: [...] 3.77-5.28 WBC 9.3 {x10E3/uL} (Normal) Range: 3.4-10.8 63-Xai-246190:06 TSH (64272) Comments: PATIENT NOT FASTINGPERFORMED BY: EMIL LabCoPronutria70 [facility] [id number] TSH 3.080 {uIU/mL} (Normal) Range: 0.450-4.500 50-Uxa-554626:56 HgA1C , Office (82108) HgA1C , Office 5.5 % (Normal) Range: 4.6 - 7.1 66-Ets-160687:56 Blood Glucose , Office (58615) Blood Glucose , Office 81 (Normal) :09 LIPID PANEL (56543) Comments: PATIENT WAS FASTINGPERFORMED BY: [employer] LabComapp2linkEyvwrz6025 [facility] [id number] LDL/HDL Ratio 2.0 {ratio_units} (Normal) Range: 0.0-3.2 [...] COMPREHENSIVE Comments: PATIENT WAS FASTINGPERFORMED BY: [facility]Hrmknf0405 [facility] [id number] (68958) ALT (SGPT) 15 [iU]/L (Normal) Range: 0-32 [...] Glucose, Serum 104 mg/dL (Abnormal) Range: 65-99 38-Inm-76983:04 METABOLIC PANEL, COMPREHENSIVE Comments: fax to Dr Henry; PATIENT WAS FASTINGPERFORMED BY: [facility] Obyykm5989 [facility] [id number] (65014) ALT (SGPT) 16 [iU]/L (Normal) Range: 0-32 [...] CREATININE RATIO Comments: PATIENT WAS FASTINGPERFORMED BY: [employer] Odeivq9560 [facility] MediaNov[facility] Centerin [place] [id number] (58315) AND (20407) Microalb/Creat Ratio <6.3 {mg/g_creat} (Normal) Range: 0.0-30.0 Microalbumin, Urine <3.0 ug/mL (Normal) Creatinine, Urine 48.0 mg/dL (Normal) :04 HGB A1C (10412) Comments: PATIENT WAS FASTINGPERFORMED BY: [employer] Mtoves8653 [address] [place] [address] [employer] [id number] Hemoglobin A1c 5.7 % (Abnormal) Range: 4.8-5.6 Comments: . Pre-diabetes: 5.7 - 6.4 Diabetes: >6.4 Glycemic control for adults with diabetes: <7.0 :04 CALCIFEDIOL (63677) Comments: PATIENT WAS FASTINGPERFORMED BY: [employer] Lyatbd5004 Monk [facility] [place] [id number] Vitamin D, 25-Hydroxy 24.2 ng/mL (Abnormal) Range: 30.0-100.0 Comments: Vitamin D deficiency has been defined by the [place] ofMedicine and an Endocrine Society practice guideline as alevel of serum 25-OH vitamin D less than 20 ng/mL (1,2).The Endocrine Society went on to further define vitamin Dinsufficiency as a level between 21 and 29 ng/mL (2).1. IOM ([place] of Medicine). 2010. Dietary reference intakes for calcium and D. [place]: The National Academies Press.2. Azael MF, Leslee NC, Hillary PHILLIPS, et al. Evaluation, treatment, and prevention of vitamin D deficiency: an Endocrine Society clinical practice guideline. JCEM. 2010; 96(7):1911-30. :04 TSH (THYROID STIMULATING Comments: PATIENT WAS FASTINGPERFORMED BY: [facility]CoSaavn Xsnusi5641 [address] [facility] HospitalDublin [place] [id number] HORMONE) (66231) TSH 2.710 {uIU/mL} (Normal) Range: 0.450-4.500 :04 LIPID PANEL (03852) Comments: PATIENT WAS FASTINGPERFORMED BY: [employer] WirelessJeff[facility]Bgbypv1913 [facility] [id number] LDL/HDL Ratio 1.7 {ratio_units} (Normal) Range: 0.0-3.2 [...] AUT DIFF Comments: PATIENT WAS FASTINGPERFORMED BY: Gluster6370 [facility] [id number] (56476) Immature Grans (Abs) 0.0 {x10E3/uL} (Normal) Range: [...] up testing of positive sera with both KS-3 and MPO- ANCA enzyme immunoassays. As many as 5% serumsamp les are positive only by EIA. Ref. AM J Clin Neojde7272;111:507-513. CYTOPLASMIC Ab <1:20 {titer} (Normal) :28 Anti-dsDNA Ab Comments: [facility] (refer to report for specific site)refer to report for address and phone number dsDNA AB <1 {IU/mL} (Normal) Range: 0-9 Comments: Negative <5 Equivocal 5 - 9 Positive >9Performed at: [address] [id number] D irector: Junior Valera PhD, Phone: [phone] :28 Complement C3 Comments: Is Patient Fasting? [facility] (refer to report for specific site)refer to report for address and phone number COMP C3 127 mg/dL (Normal) Range: 82-167 Comments: Performed at: CB - [facility] Getkpt6977 [place], [place] [id number] Director: Junior Valera PhD, Phone: [phone] :28 Complement C4 Comments: Is Patient Fasting? [...] electrophoresis scan will follow via computer,mail, or french professor delivery. LEOPOLDO RESULT,S Comment: (Normal) Comments: Presence of monoclonal protein is unclear at this time. Suggest repeat in 3 to 6 months if clinically indicated. A/G RATIO 0.9 (Normal) Range: 0.7-1.7 GLOBULIN, TOTAL 3.8 g/dL (Normal) Range: 2.2-3.9 M-SPIKE (Normal) Comments: Not Observed GAMMA GLOBULIN 1.4 g/dL (Normal) Range: 0.4-1.8 BETA GLOBULIN 1.3 g/dL (Normal) Range: 0.7-1.3 PWEUQ-5-LHKF 0.9 g/dL (Normal) Range: 0.4-1.0 ROJBM-1-CERY 0.2 g/dL (Normal) Range: 0.0-0.4 ALBUMIN 3.4 g/dL (Normal) Range: 2.9-4.4 IMMUNOGL M 44 mg/dL (Normal) Range: 26-217 IMMUNO A 614 mg/dL (Abnormal) Range: 87-352 IMMUNO G 1353 mg/dL (Normal) Range: 700-1600 PROTEIN,TOTAL 7.2 g/dL (Normal) Range: 6.0-8.5 :28 Protein+Creatinine Ratio,Urine Comments: [facility] [address] [place], [place], [id number] PROT:CRE RATIO 128 {mg/g_CRE} (Normal) Range: 0-200 PROTEIN,UR.RAN. 6.5 mg/dL (Normal) UR CREAT 50.60 mg/dL (Normal) :46 RENAL FUNCTION PANEL (03671) Comments: PATIENT NOT FASTINGPERFORMED BY: [facility]6370 [facility] [id number] Phosphorus, Serum 4.2 mg/dL (Normal) Range: 2.5-4.5 :46 PT (PROTHROMBIN TIME) (26549) Comments: PATIENT NOT FASTINGPERFORMED BY: [facility]6370 [facility] [id number] Prothrombin Time 10.9 {sec} (Normal) Range: 9.1-12.0 INR 1.1 (Normal) Range: 0.8-1.2 Comments: Reference interval is for non-anticoagulated patients. . Suggested INR therapeutic range for Vitamin K anta gonist therapy: Standard Dose (moderate intensity therapeutic range): 2.0 - 3.0 Higher intensity therapeutic range 2.5 - 3.5 :46 METABOLIC PANEL, COMPREHENSIVE Comments: PATIENT NOT FASTINGPERFORMED BY: [facility]6370 [facility] [id number] (72415) ALT (SGPT) 24 [iU]/L (Normal) Range: 0-32 [...] Glucose, Serum 109 mg/dL (Abnormal) Range: 65-99 82-Rls-931242:46 CBC, PLATELETS & AUT DIFF Comments: PATIENT NOT FASTINGPERFORMED BY: [facility] Bwnixj3224 [facility] [id number] Information: [id number], [id number] (76590) Immature Grans (Abs) 0.0 {x10E3/uL} (Normal) Range: [...] (Normal) Range: 3.4-10.8 :23 HgA1C , Office (81190) HgA1C , Office 5.4 % (Normal) Range: 4.6 - 7.1 :16 CBC-Complete Blood Cnt No Diff Comments: [facility] [address] [place], [address] MPV 8.8 fL (Normal) Range: [...] 4.4-11.0 :16 Serum Creatinine AND GFR Comments: [facility] [address] [place], [place], [id number] Estimated CRCL 27.75 ml/min (Normal) EST GFR - AA 37 mL/min (Abnormal) Comments: GFR Calc EST GFR 30 mL/min (Abnormal) Comments: Non- GFR Calc CREAT,SERUM 1.77 mg/dL (Abnormal) Range: 0.55-1.20 Comments: The validity of the calculated GFR AND GFRAA in patients over70 years has not been determined. Clinical correlation isessential. 47-Mkt-150845:15 Bedside Glucose Comments: [facility] LaboratoryPoint of [address] [place], [place] [address] BEDSIDE GLU 128 mg/dL (Abnormal) Range: 70-110 Comments: Policy and Physicians Orders followedMANAGEMENT OF PATIENT CARE PER NURSING PROTOCOL HYSTERECTOMY SPECIMEN See Note (Normal) Comments: [facility] [address] [place], [address] :39 Comments: Patient: ELIZABETH TORO : 1950 (65/F) Acct Num: [id number] Phys: Gonsalo PROCTOR,Gm Unit Num: [id number] Loc: MS1 [id number] Specimen: [id number] Received: 06/22/161336 Spec Ty pe: HYSTERECT TISSUES TISSUES: COMMENT Please make reference to previous specimen ([id number]) endometrial biopsy with diagnosis of consistent with atrophic endometrium and ([id number]) e ndometrium andpolyp, excision with diagnosis of [...] 1.2 x 0.7 x 0.6 cm. Security Systems Engineer sections are submitted inten cassettes as follows: [...] tube and ovary. / TONG:stormy 06/22/16 TC:1 CPT:21114 HEADER OPERATION: Lap robotic hysterectomy, BSO PRE-OP [...] Signed Sivakumar Mallory 06/23/16 <signature on file> 49-Och-13502:31 Bedside Glucose Comments: [facility] LaboratoryPoint of [address] [place] [address] BEDSIDE GLU 89 mg/dL (Normal) Range: 70-110 Comments: Physician Notified VBRBMANAGEMENT OF PATIENT CARE PER NURSING PROTOCOL 52-Htr-939284:31 CBC-Complete Blood Cnt No Diff Comments: [facility] [address] [place], [place], [address] MPV 10.1 fL (Normal) Range: 6.2-12.0 PLT [...] 4.2-5.4 WBC 7.6 K/mm3 (Normal) Range: 4.4-11.0 36-Otq-780708:31 Comprehensive Metabolic Profil Comments: [facility] [address] [place], [address] GAP 8 (Normal) Range: 5-15 CO2 24.0 [...] 7-18 GLU 87 mg/dL (Normal) Range: 70-110 79-Mcq-666222:31 Hemoglobin A1c Comments: [facility] [address] [place], [address] HGB A1C 5.6 % (Normal) Range: 4.2-6.3 :31 Partial Thromboplast Time Comments: [facility] [address] [place], [address] PTT 27.7 s (Normal) Range: 24.1-36.2 :31 Prothrombin Time w/INR Comments: [facility] [address] [place], [address] INR 1.1 (Normal) PROTIME 13.4 s (Normal) Range: 11.7-14.9 09-Zsz-390017:31 Thyroid Stim Hormone (TSH) Comments: [facility] [address] [place], [address] TSH 2.46 {uIU/mL} (Normal) Range: 0.358-3.74 01-Wwr-133902:31 Type AND Screen Comments: Surgery Date: 06/22/16Date of Last Transfusion (if within last 3 months) NHx of Preganancy in last 3 Months NoEver experience any problems with transfusion(s)? NHx of Transfusion in last 3 Months N Reason for Type AND Screen/Red Cells: SURGERYTime: 0600SURGICAL PROCEDURE: [facility] [address] [place], [address] Antibody Screen NEGATIVE (Normal) BLOOD TYPE GEL A NEGATIVE (Normal) 27-Szo-321610:28 Comprehensive Metabolic Profil Comments: Order Date: 06/10/16Order Date: 06/10/16[facility] [address] [place], [address] GAP 5 [...] 7-18 GLU 79 mg/dL (Normal) Range: 70-110 37-Xbx-844896:58 CBC W/Diff, Automated Comments: [facility] [address] [place], [place], [address] Absolute Lymph 2.98 {X10_3/ul} (Normal) Range: 0.83-4.51 [...] 4.2-5.4 WBC 8.7 K/mm3 (Normal) Range: 4.4-11.0 65-Exq-962831:58 Comprehensive Metabolic Profil Comments: Is Patient Taking Vitamins or Folic Acid Supplements? [facility] [address] [facility] [place], [place], [phone] GAP 8 (Normal) Range: 5-15 CO2 29.0 [...] Range: 70-110 :58 Erythrocyte Sed Rate Comments: [facility] [address] [place], [place], [address] SED RATE 25 mm/h (Normal) Range: 0-30 31-Plo-380437:58 Folates, (Folic Acid) Comments: Is Patient Taking Vitamins or Folic Acid Supplements? [facility] [address] [place], [place], [address] FOLATES 9.60 ng/mL (Normal) Range: 3.1-17.5 43-Inb-795318:58 Thyroid Stim Hormone (TSH) Comments: Is Patient Taking Vitamins or Folic Acid Supplements? [facility] [address] [place], [address] TSH 2.58 {uIU/mL} (Normal) Range: 0.358-3.74 81-Zxn-174899:58 Vitamin B12 543 pg/mL (Normal) Comments: [facility] [address] [place], [place], [address] Range: 211-911 92-Exw-933708:07 Urinalysis, Office (30351) UA - LEUKOCYTE ESTERASE Trace (Normal) UA - NITRITE Negative (Normal) URINE UROBILINGN SHARIFA TIMED Normal mg/dL (Normal) UA - PROTEIN Negative mg/dL (Normal) UA - PH 6.5 (Normal) UA - BLOOD Hemolyzed Trace (Normal) UA - SPECIFIC GRAVITY 1.005 (Normal) UA - KETONES Negative mg/dL (Normal) UA - BILIRUBIN Negative (Normal) UA - GLUCOSE Negative (Normal) 18-Bpn-094595:04 URINE VERÓNICA CULTURE-SHARIFA COL Comments: PATIENT NOT FASTINGPERFORMED BY: EMIL [facility] [address] [place] [id number] Information: SRC:[facility] [id number] COUNT (54021) Antimicrobial MIHEAD (Normal) Comments: S = Susceptible; [...] (Abnormal) Urine Final report Culture,Comprehensive (Abnormal) EGD ([facility]) See Note (Normal) Comments: [facility] [address] [place], [address]:04 Comments: Patient: ELIZABETH TORO : 1950 (65/F) Acct Num: [id number] Phys: Junior Pena Unit Num: [id number] Loc: LABSPEC Specimen: [id number] Received: 04/21/16 - 1638 Spec Type: EGD [...] in one cassette. / TONG:stormy 04/22/16 TC:3 CPT:56506 HEADER OPERATION: EGD with biopsy PRE-OP DIAGNOSIS: Dysphagia TISSUE SUBMITTED: Esophageal biopsy, R/O EE MICROSCOPIC DESCRIP TION Slides are reviewed. MICROSCOPIC DIAGNOSIS Esophageal biopsy: Fragments of squamous epithelium with mild chronic inflammation. See comment. SJ:stormy 04/23/16 Signed Sivakumar Mallory 04/23/16 <signature on file> CERVICAL See Note (Normal) Comments: [facility] [address], [address]:15 Comments: Patient: ELIZABETH TORO : 1950 (65/F) Acct Num: [id number] Phys: Gonsalo PROCTOR,[facility] Unit Num: [id number] Loc: [facility] Specimen: [id number] Received: 04/13/161335 Spec Type: CER V TISSUES [...] one cassette. / AM: 04/13/16 TC:5 CPT: 90927 x 2 HEADER OPERATION: Hysteroscopy, diagnostic, D AND C PRE-OP DIAGNOSIS: Postmenopausal bleeding TISSUE SUBMITTED: A - Endocervical curettings, B - Endometrial curettings and polyp [facility] DESCRIPTION Slides are reviewed. MICROSCOPIC DIAGNOSIS A. Endocervix, curettings: Strips of benign superficial endocervix. Rare strips of benign superficial ectocervix. B. Endom etrium and polyp, excision: Benign endometrial polyp with simple cystic hyperplasia without atypia. Scant strips of benign superficial endometrium. AM: 04/14/16 Signed Ras Easley 04/14/16 <signature on file> 14-Goc-81785:04 Bedside Glucose Comments: [facility] LaboratoryPoint of [address] [place] [address] BEDSIDE GLU 98 mg/dL (Normal) Range: 70-110 Comments: No Action RequiredMANAGEMENT OF PATIENT CARE PER NURSING PROTOCOL :08 CBC-Complete Blood Cnt No Diff Comments: [facility] [address] [place], [address] MPV 9.4 fL (Normal) Range: [...] Range: 4.4-11.0 :08 Comprehensive Metabolic Profil Comments: [facility] [address] [place], [address] GAP 8 (Normal) Range: 5-15 [...] Range: 70-110 :08 Partial Thromboplast Time Comments: [facility] [address] [place], [address] PTT 29.8 s (Normal) Range: 24.1-36.2 :08 Prothrombin Time w/INR Comments: [facility] [address] [place], [address] INR 1.1 (Normal) PROTIME 13.6 s (Normal) Range: 11.7-14.9 :08 Type AND Screen Comments: Surgery Date: 04/13/16Date of Last Transfusion (if within last 3 months) NHx of Preganancy in last 3 Months NoEver experience any problems with transfusion(s)? NHx of Transfusion in last 3 Months N Reason for Type AND Screen/Red Cells: SURGERYTime: 1015SURGICAL PROCEDURE: [facility] [address] [place], [address] Antibody Screen NEGATIVE (Normal) BLOOD TYPE GEL A NEGATIVE (Normal) ENDOMETRIAL See Note (Normal) Comments: [facility] [address] [place], [address] 6:00 BX/CURETTINGS Comments: Patient: ELIZABETH TORO : 1950 (65/F) Acct Num: [id number] Phys: Gonsalo PROCTOR,[facility] Unit Num: [id number] Loc: LABSPEC Specimen: [id number] Received: 03/26/16 - 1600 Spec Type: ENDOM [...] in one cassette. / AM:stormy 03/27/16 TC:4 CPT:91312 HEADER OPERATION: Endometrial biopsy PRE-OP DIAGNOSIS: N95.0 TISSUE SUBMITTED: EMB MICROSCOPIC DESCRIPTION Slides are r eviewed. MICROSCOPIC DIAGNOSIS Endometrial biopsy: Scant strips of benign endometrial epithelium, consistent with atrophic endometrium. Fragments of benign endocervical epithelium and mucous. SJ:stormy 03/31/16 Signed Sivakumar Mallory 03/31/16 <signature on file> 73-Wrg-712954:00 PAP I-G w/ Reflex to HR Comments: CYTOLOGY INFORMATION:- CLINICAL INFORMATION: POSTMENOPAUSAL- DATE LMP/MENOPAUSE: MENOPAUSE- COLLECTION VIAL: Thin Prep Vial- TOUR DRIVER SOURCE: CERVICAL/ENDOCERVICAL- COLLECTION TECHNIQUE: BRUSH/ SPATULASpeci HPV men Comment: [id number] Comment: No. of containers..01 CYTYC Thin Prep VialLabCorp (refer to report for specific site)refer to report for address and phone number HPV RFLX Comment (Normal) Comments: The HPV DNA reflex criteria were not met with this specimenresult therefore, no HPV testing was performed.Performed at: [address] [id number] Director: Annamaria Menezes MD, Phone: [phone] PAPSMR Comment (Normal) Comments: The Pap smear [...] system. PERFORM Comment (Normal) Comments: Adeline Singleton, [employer] (ASCP) ADEQ Comment (Normal) Comments: Satisfactory for evaluation. DIAGN Comment (Normal) Comments: NEGATIVE FOR INTRAEPITHELIAL LESION AND MALIGNANCY. 59-Kqz-37164:20 Urinalysis, Complete Comments: How was Urine Obtained? MELT SUPERINTENDANT TO SPECIFYThe [facility] [address] [place], [address] MUCUS, URINE 0 SEEN {/hpf} [...] (Normal) CLARITY Clear (Normal) COLOR Straw (Normal) 65-Rcw-798718:50 Basic Metabolic Profile (BMP) Comments: [facility] [address] [place], [address] GAP 7 (Normal) Range: 5-15 [...] <126 mg/dLsuggests IMPAIRED HOMEOSTASIS per A.D.A. criteria. 52-Xak-416017:50 CBC W/Diff, Automated Comments: [facility] [address] [place], [address] Absolute Lymph 3.53 {X10_3/ul} (Normal) Range: 0.83-4.51 [...] K/mm3 (Normal) Range: 4.4-11.0 :02 Rapid Flu (03105 x 2) Influenza A Ag negative (Normal) 3-Ioi-801671:31 SJOGREN ANTIBOIDIES Comments: PATIENT NOT FASTINGPERFORMED BY: [facility]Pxbccl2710 [facility] [id number] Information: [id number] (ANTI-SS-A/ANTI-SS-B) (79025) Sjogren's Anti-SS-B <0.2 {AI} (Normal) Range: 0.0-0.9 Sjogren's Anti-SS-A <0.2 {AI} (Normal) Range: 0.0-0.9 :28 Rapid Strep Test, Office (49779) Rapid Strep Test, Office Negative (Normal) 0-Hyd-094855:37 Throat Culture (88934) Comments: PATIENT NOT FASTINGPERFORMED BY: [facility]6370 [facility] [id number] Information: SRC:THRT [id number] Result 1 BETAGB (Abnormal) Comments: Beta hemolytic [...] 2011) Upper Respiratory Culture Final report (Abnormal) 1-Vmq-830002:45 Basic Metabolic Profile (BMP) Comments: 'TROP' Serial specimen #1, #2, #3, or #4: 1[facility] [address] [place], [address] GAP 9 (Normal) Range: 5-15 CO2 23.0 [...] 7-18 GLU 92 mg/dL (Normal) Range: 70-110 6-Ipy-460744:45 CBC W/Diff, Automated Comments: [facility] [address] [place], [place], [address] Absolute Lymph 2.03 {X10_3/ul} (Normal) Range: 0.83-4.51 [...] Serial specimen #1, #2, #3, or #4: [address] [place] [address] [address] [facility] [place], [address] TSH 1.50 {uIU/mL} (Normal) Range: 0.358-3.74 :45 Troponin-I Comments: 'TROP' Serial specimen #1, #2, #3, or #4: [address] [place] [address] [address] [place], [place], [address] TROPONIN-I < 0.02 ng/mL (Normal) Comments: TROPONIN-I EXPECTED VALUES <0.05 NEGATIVE 0.06 - 0.59 AT RISK OF AR > OR = 0.60 SUGGEST AR 69-Zhe-62765:53 Pap IG (Image Comments: Source.............Cervical;EndocervicalNo. of containers..01 CYTYC Thin Prep VialPATIENT NOT FASTINGPERFORMED BY: =G [facility] [address] [id number] BY: WB L Guided) [facility] [address] [id number] Note: PAPSMR (Normal) Comments: The Pap smear [...] of partially obscuring exudate are present.Z00.00Adeline Singleton [employer] ([employer]) :01 HgA1C , Office (44321) HgA1C , Office 5.9 % (Normal) Range: 4.6 - 7.1 :00 Blood Glucose , Office (76370) Blood Glucose , Office 126 (Normal) :53 Thin Prep Pap Comments: Source.............Cervical;EndocervicalNo. of containers..01 CYTYC Thin Prep VialPATIENT NOT FASTINGPERFORMED BY: =G [facility] Xautbphgro165 [facility] [id number] BY: SARAY Jose (94512) [facility] Ihanmpdxdn374 [facility] [id number] Information: [id number] Age Gdln ACOG Testing AGE4 (Normal) Comments: <21 or >65 or no age provided :34 METABOLIC PANEL, Comments: PATIENT WAS FASTINGPERFORMED BY: EMIL [facility] Nfekpu6869 [facility] [id number] Information: [id number] COMPREHENSIVE (08076) ALT (SGPT) 18 [iU]/L (Normal) Range: 0-32 [...] 83 mg/dL (Normal) Range: 65-99 :34 CALCIFIDIOL (57086) VIT D 25 Comments: PATIENT WAS FASTINGPERFORMED BY: [facility]Nuqzfa0048 [facility] [id number] Vitamin D, 25-Hydroxy 59.6 ng/mL (Normal) Range: 30.0-100.0 Comments: Vitamin D deficiency has been defined by the [place] [facility] and an Endocrine Society practice guideline as alevel of serum 25-OH vitamin D less than 20 ng/mL (1,2).The Endocrine Society went on to further define vitamin Dinsufficiency as a level between 21 and 29 ng/mL (2).1. IOM ([place] of Medicine). 2010. Dietary reference intakes for calcium and D. [place]: The National Academies Press.2. Azael MF, Leslee NC, Hillary PHILLIPS, et al. Evaluation, treatment, and prevention of vitamin D deficiency: an Endocrine Society clinical practice guideline. JCEM. 2010; 96(7):1911-30. :37 HgA1C , Office (69930) HgA1C , Office 6.1 % (Normal) Range: 4.6 - 7.1 :37 Blood Glucose , Office (58432) Blood Glucose , Office 107 (Normal) :27 TSH (THYROID STIMULATING Comments: PATIENT WAS FASTINGPERFORMED BY: [facility]6370 [facility] [id number] HORMONE) (45027) TSH 2.480 {uIU/mL} (Normal) Range: 0.450-4.500 :27 CALCIFEDIOL (97135) Comments: PATIENT WAS FASTINGPERFORMED BY: LabH[facility]6370 [facility] [id number] Vitamin D, 25-Hydroxy 16.7 ng/mL (Abnormal) Range: 30.0-100.0 Comments: Vitamin D deficiency has been defined by the [place] [facility] and an Endocrine Society practice guideline as alevel of serum 25-OH vitamin D less than 20 ng/mL (1,2).The Endocrine Society went on to further define vitamin Dinsufficiency as a level between 21 and 29 ng/mL (2).1. IOM ([place] of Medicine). 2010. Dietary reference intakes for calcium and D. [place]: The National Academies Press.2. Azael MF, Leslee NC, Hillary PHILLIPS, et al. Evaluation, treatment, and prevention of vitamin D deficiency: an Endocrine Society clinical practice guideline. JCEM. 2010; 96(7):1911-30. :27 LIPID PANEL (52471) Comments: PATIENT WAS FASTINGPERFORMED BY: [facility]6370 [facility] [id number] LDL/HDL Ratio 1.2 {ratio_units} (Normal) Range: 0.0-3.2 [...] PANEL, COMPREHENSIVE Comments: PATIENT WAS FASTINGPERFORMED BY: [employer] WirelessJeff[facility])Zwtcnw3228 [facility] [id number] (35420) ALT (SGPT) 19 [iU]/L (Normal) Range: 0-32 [...] & MANUAL Comments: PATIENT WAS FASTINGPERFORMED BY: [employer] WirelessJeff[facility])Iehfjr2025 [facility] [id number] Information: [id number], [id number] DIFF (93466) Immature Grans (Abs) 0.0 {x10E3/uL} (Normal) Range: [...] 3.77-5.28 WBC 7.0 {x10E3/uL} (Normal) Range: 3.4-10.8 30-Ztg-531802:31 CREATININE CLEARANCE Comments: PATIENT NOT FASTINGPERFORMED BY: [facility])Eykvts4961 [facility] [id number] Information: [id number] START @9AM FINISH 01/28/15@9 AM (06751) Creatinine Clearance 53 mL/min (Abnormal) Range: 88-128 [...] Hour Urine Comments: PATIENT NOT FASTINGPERFORMED BY: [facility]6370 [facility] [id number] (69512) Prot,24hr calculated 357.5 {mg/24_hr} (Abnormal) Range: 30.0-150.0 Protein,Total,Urine 13.0 mg/dL (Normal) Range: 0.0-15.0 :28 HgA1C , Office (63229) HgA1C , Office 5.9 % (Normal) Range: 4.6 - 7.1 :28 Blood Glucose , Office (97672) Blood Glucose , Office 136 (Normal) :53 TSH (27886) Comments: PATIENT WAS FASTINGPERFORMED BY: [facility]6370 [facility] [id number] TSH 4.370 {uIU/mL} (Normal) Range: 0.450-4.500 :53 MICROALBUMIN: CREATININE RATIO Comments: PATIENT WAS FASTINGPERFORMED BY: [facility]6370 [facility] [id number] (13562) AND (55871) Microalb/Creat Ratio 5.0 {mg/g_creat} (Normal) Range: 0.0-30.0 Microalbumin, Urine 4.5 ug/mL (Normal) Range: 0.0-17.0 Creatinine, Urine 90.5 mg/dL (Normal) Range: 15.0-278.0 :53 METABOLIC PANEL, COMPREHENSIVE Comments: PATIENT WAS FASTINGPERFORMED BY: [facility]6370 [facility] [id number] (87950) ALT (SGPT) 20 [iU]/L (Normal) Range: 0-32 [...] mg/dL (Abnormal) Range: 65-99 07-Jan-20158:53 LIPID PANEL (56877) Comments: PATIENT WAS FASTINGPERFORMED BY: LabH[facility]6370 [facility] [id number] LDL/HDL Ratio 1.4 {ratio_units} (Normal) Range: 0.0-3.2 [...] DIFF WBC Comments: PATIENT WAS FASTINGPERFORMED BY: [employer] [facility] [id number] Information: [id number] (46352) Immature Grans (Abs) 0.0 {x10E3/uL} (Normal) Range: [...] 7.8 {x10E3/uL} (Normal) Range: 3.4-10.8 :53 CALCIFIDIOL (36288) VIT D 25 Comments: PATIENT WAS FASTINGPERFORMED BY: [employer] Fjithk9588 [facility] [id number] Vitamin D, 25-Hydroxy 22.5 ng/mL (Abnormal) Range: 30.0-100.0 Comments: Vitamin D deficiency has been defined by the [place] ofMedicine and an Endocrine Society practice guideline as alevel of serum 25-OH vitamin D less than 20 ng/mL (1,2).The Endocrine Society went on to further define vitamin Dinsufficiency as a level between 21 and 29 ng/mL (2).1. IOM ([place] of Medicine). 2010. Dietary reference intakes for calcium and D. [place]: The National Academies Press.2. Azael MF, Leslee LEMON, Hillary PHILLIPS, et al. Evaluation, treatment, and prevention of vitamin D deficiency: an Endocrine Society clinical practice guideline. JCEM. 2010; 96(7):1911-30. :22 HgA1C , Office (55431) HgA1C , Office 6.0 % (Normal) Range: 4.6 - 7.1 :22 Blood Glucose , Office (44677) Blood Glucose , Office 132 (Normal) :27 Blood Glucose , Office (97950) Blood Glucose , Office 114 (Normal) :27 HgA1C , Office (69636) HgA1C , Office 5.9 % (Normal) Range: 4.6 - 7.1 :00 Basic Metabolic Panel (8) Comments: PATIENT NOT FASTINGPERFORMED BY: CB [facility] Hfbzbi2548 [facility] [id number] BY: [facility] [address] [id number] Calcium, Serum 9.8 mg/dL (Normal) Range: 8.6-10.2 [...] 287 {mOsmol/kg} Comments: PATIENT NOT FASTINGPERFORMED BY: [employer] Cuaidv7745 [facility] [id number] BY: [address] [id number] 00 (Normal) Range: 280-301 : Osmolality, Urine 259 {mOsmol/kg} Comments: PATIENT NOT FASTINGPERFORMED BY: [employer] Kywnxn0098 [facility] [id number] BY: [address] [id number] 00 (Normal) Comments: 24 hr : 300 - 900 Random: 50 - 1400 After 12hr fluid restriction: >850 : Sodium, Urine 11 mmol/L (Normal) Comments: PATIENT NOT FASTINGPERFORMED BY: WizeHiveJames [place] 1061970 [facility] [id number] BY: [address] [id number] 00 6-Kff-515032:06 Metabolic Panel, Basic Comments: PATIENT NOT FASTINGPERFORMED BY: [employer] Sfbflb7764 [facility] [id number] Information: [id number] (77661) Calcium, Serum 9.9 mg/dL (Normal) Range: 8.6-10.2 [...] 4.2-5.4 WBC 9.6 K/mm3 (Normal) Range: 4.4-11.0 83-Bik-979148:34 CMP Comments: 'TROP' Serial specimen #1, #2, [...] <0.05 NEGATIVE0.06 - 0.59 AT RISK OF AR> OR = 0.60 SUGGEST AR :34 TSH 2.32 {uIU/mL} (Normal) Comments: 'TROP' Serial specimen #1, #2, #3, or #4: 1 Range: 0.358-3.74 01-May-20140:00 Microscopic Examination Comments: PATIENT WAS FASTINGPERFORMED BY: [facility] Rcqsyd8789 [facility] [id number] Bacteria Few (Normal) Mucus Threads Present (Normal) Epithelial Cells (non renal) 0-10 {/hpf} (Normal) Range: 0 - 10 RBC 0-2 {/hpf} (Normal) Range: 0 - 2 WBC 11-30 {/hpf} (Abnormal) Range: 0 - 5 42-Oal-359159:15 TSH (46264) Comments: PATIENT WAS FASTINGPERFORMED BY: [facility] Bikbgn9377 [facility] [place] [id number] TSH 3.310 {uIU/mL} (Normal) Range: 0.450-4.500 11-Icq-203147:15 CALCIFIDIOL (99075) VIT D 25 Comments: PATIENT WAS FASTINGPERFORMED BY: [facility] Xeudge1183 [facility] [id number] Vitamin D, 25-Hydroxy 35.7 ng/mL (Normal) Range: 30.0-100.0 Comments: Vitamin D deficiency has been defined by the [place] [facility] and an Endocrine Society practice guideline as alevel of serum 25-OH vitamin D less than 20 ng/mL (1,2).The Endocrine Society went on to further define vitamin Dinsufficiency as a level between 21 and 29 ng/mL (2).1. IOM ([place] of Medicine). 2010. Dietary reference intakes for calcium and D. [place]: The National Academies Press.2. Azael MF, Leslee LEMON, Hillary PHILLIPS, et al. Evaluation, treatment, and prevention of vitamin D deficiency: an Endocrine Society clinical practice guideline. JCEM. 2010; 96(7):1911-30. 19-Biv-072382:15 URINALYSIS, W/ MICRO (05074) Comments: PATIENT WAS FASTINGPERFORMED BY: [facility] Opqcwv9871 [facility] [place] [id number] Microscopic Examination See below: (Normal) Nitrite, Urine Positive (Abnormal) Bilirubin Negative (Normal) Urobilinogen,Semi-Qn 0.2 mg/dL (Normal) Range: 0.0-1.9 Ketones Negative (Normal) Occult Blood Negative (Normal) Glucose Negative (Normal) Protein Negative (Normal) Appearance Clear (Normal) WBC Esterase 2+ (Abnormal) pH 6.5 (Normal) Range: 5.0-7.5 Urine-Color Yellow (Normal) Specific [place] 1.015 (Normal) Range: 1.005-1.030 75-Uwe-713292:15 METABOLIC PANEL, COMPREHENSIVE Comments: PATIENT WAS FASTINGPERFORMED BY: Novatel WirelessCibola General HospitalWrpoku2378 [facility] [id number] (94327) ALT (SGPT) 19 [iU]/L (Normal) Range: 0-32 [...] Glucose, Serum 118 mg/dL (Abnormal) Range: 65-99 61-Cwx-320170:15 LIPID PANEL (81552) Comments: PATIENT WAS FASTINGPERFORMED BY: [facility] WirelessJeff[facility]Cjqzus6657 [facility] [id number] LDL/HDL Ratio 1.7 {ratio_units} (Normal) Range: 0.0-3.2 LDL Cholesterol Calc 90 mg/dL (Normal) Range: 0-99 VLDL Cholesterol Hillary 33 mg/dL (Normal) Range: 5-40 HDL Cholesterol 53 mg/dL (Normal) Comments: According to ATP-III Guidelines, HDL-C >59 mg/dL is considered anegative risk factor for CHD. Triglycerides 166 mg/dL (Abnormal) Range: 0-149 Cholesterol, Total 176 mg/dL (Normal) Range: 100-199 43-Lms-850138:15 CBC WITH MANUAL DIFF Comments: PATIENT WAS FASTINGPERFORMED BY: [facility])Hzfrcd5392 [facility] [id number] Information: [id number] (11824) Immature Grans (Abs) 0.0 {x10E3/uL} (Normal) Range: [...] 3.77-5.28 WBC 7.0 {x10E3/uL} (Normal) Range: 3.4-10.8 68-Fqe-496599:20 Blood Glucose , Office (97406) Blood Glucose , Office 102 (Normal) 73-Apm-431810:20 HgA1C , Office (97587) HgA1C , Office 6.0 % (Normal) Range: 4.6 - 7.1 1-Tky-663643:27 URINE VERÓNICA CULTURE-IDENTIFICATN Comments: PATIENT NOT FASTINGPERFORMED BY: LabCoJames Ville 1061970 [facility] [id number] Information: [id number] (21099) Result 1 NG36 (Normal) Comments: No growth in 36 - 48 hours. Urine Culture,Comprehensive Final report (Normal) 4-Bfv-273576:03 URINALYSIS (13651) URINALYSIS neg for all (Normal) 64-Bxv-62783:31 URINE VERÓNICA CULTURE-SHARIFA COL Comments: PATIENT NOT FASTINGPERFORMED BY: LabXiimo Jkxklo7199 [facility] [id number] Information: SRC:UR [id number] COUNT (27363) Antimicrobial MIHEAD (Normal) Comments: S = Susceptible; [...] Final report Culture,Comprehensive (Normal) :26 Urinalysis, Office (57545) UA - LEUKOCYTE ESTERASE Moderate (Normal) UA - NITRITE Negative (Normal) URINE UROBILINGN SHARIFA TIMED Normal mg/dL (Normal) UA - PROTEIN Negative mg/dL (Normal) UA - PH 5 (Abnormal) UA - BLOOD Hemolyzed Small (Normal) UA - SPECIFIC GRAVITY 1.025 (Normal) UA - KETONES Negative mg/dL (Normal) UA - BILIRUBIN Negative (Normal) UA - GLUCOSE Negative (Normal) :52 LIPID PANEL (42072) Comments: PATIENT WAS FASTINGPERFORMED BY: Mitro70 [facility] [id number] Information: [id number] LDL/HDL Ratio 2.1 {ratio_units} (Normal) Range: 0.0-3.2 LDL Cholesterol Calc 111 mg/dL (Abnormal) Range: 0-99 VLDL Cholesterol Hillary 31 mg/dL (Normal) Range: 5-40 HDL Cholesterol 53 mg/dL (Normal) Comments: According to ATP-III Guidelines, HDL-C >59 mg/dL is considered anegative risk factor for CHD. Triglycerides 156 mg/dL (Abnormal) Range: 0-149 Cholesterol, Total 195 mg/dL (Normal) Range: 100-199 :52 HEPATIC FUNCTION PANEL (73637) Comments: PATIENT WAS FASTINGPERFORMED BY: [employer] [facility] [id number] ALT (SGPT) 17 [iU]/L (Normal) Range: 0-32 AST (SGOT) 23 [iU]/L (Normal) Range: 0-40 Alkaline Phosphatase, S 57 [iU]/L (Normal) Range: 39-117 Bilirubin, Direct 0.08 mg/dL (Normal) Range: 0.00-0.40 Bilirubin, Total 0.3 mg/dL (Normal) Range: 0.0-1.2 Albumin, Serum 4.3 g/dL (Normal) Range: 3.6-4.8 Protein, Total, Serum 7.2 g/dL (Normal) Range: 6.0-8.5 :52 CALCIFEDIOL (70471) Comments: PATIENT WAS FASTINGPERFORMED BY: Anvil Semiconductorslin6370 [facility] [id number] Vitamin D, 25-Hydroxy 13.8 ng/mL (Abnormal) Range: 30.0-100.0 Comments: Vitamin D deficiency has been defined by the [place] ofMedicine and an Endocrine Society practice guideline as alevel of serum 25-OH vitamin D less than 20 ng/mL (1,2).The Endocrine Society went on to further define vitamin Dinsufficiency as a level between 21 and 29 ng/mL (2).1. IOM ([place] of Medicine). 2010. Dietary reference intakes for calcium and D. [place]: The National Academies Press.2. Azael MF, Leslee LEMON, Hillary PHILLIPS, et al. Evaluation, treatment, and prevention of vitamin D deficiency: an Endocrine Society clinical practice guideline. JCEM. 2010; 96(7):1911-30. 41-Ggj-059964:38 Blood Glucose , Office (39225) Blood Glucose , Office 114 (Normal) 00-Asn-832908:38 HgA1C , Office (63511) HgA1C , Office 5.8 % (Normal) Range: 4.6 - 7.1 23-Qru-270129:23 Urinalysis, Office (79945) UA - BILIRUBIN Negative (Normal) UA - BLOOD Hemolyzed Trace (Normal) UA - GLUCOSE Negative (Normal) UA - KETONES Negative mg/dL (Normal) UA - LEUKOCYTE ESTERASE Small (Normal) UA - NITRITE Negative (Normal) UA - PH 5.0 (Normal) UA - PROTEIN Negative mg/dL (Normal) UA - SPECIFIC GRAVITY 1.025 (Normal) URINE UROBILINGN SHARIFA TIMED Normal mg/dL (Normal) 30-Vaj-272505:50 Metabolic Panel, Basic Comments: PATIENT NOT FASTINGPERFORMED BY: [facility])Fglbpv8443 [facility] [id number] Information: [id number] (20801) Calcium, Serum 9.9 mg/dL (Normal) Range: 8.6-10.2 [...] Glucose, Serum 84 mg/dL (Normal) Range: 65-99 97-Pyu-469672:39 BRAIN WITHOUT CONTRAST Radiology Report See Note [...] Sweeney M.D.July 12, 2013 at 4:19:02 PM [id number] Signed PV/PV If you are the referring physician and would like to consult with theradiologist who provided this interpretation, please contact Petrona molina M.D. at [phone]. If this radiologist is unavailable, youwillbe directed to another radiologist to assist. If you are a patient with a question regarding this report, pleasecontactyour referring physician directly. Professional Interpretation Provided By: [employer], Phone , These documents contain legally protected [...] one week; PATIENT NOT FASTINGPERFORMED BY: [facility])Xozqbi5235 [facility] [id number] Information: [id number] (21623) Calcium, Serum 9.7 mg/dL (Normal) Range: 8.6-10.2 [...] Panel, Basic Comments: PATIENT NOT FASTINGPERFORMED BY: Mitro70 Designqwest PlatformsFormerly [facility], [facility] [id number] Information: [id number] (41316) Calcium, Serum 9.5 mg/dL (Normal) Range: 8.6-10.2 [...] (Abnormal) Range: 65-99 :29 HgA1C , Office (82770) HgA1C , Office 5.7 % (Normal) Range: 4.6 - 7.1 :14 TSH (38119) Comments: PATIENT NOT FASTINGPERFORMED BY: AtTaskFormerly [facility], [facility] [id number] TSH 2.850 {uIU/mL} (Normal) Range: 0.450-4.500 34-Rzs-936190:14 CBC, Platelets & Auto Comments: PATIENT NOT FASTINGPERFORMED BY: [facility] Fclver7969 Lacho AlfonsoFormerly [facility], [facility] [id number] Information: [id number] Diff (72424) Immature Grans (Abs) 0.0 {x10E3/uL} (Normal) Range: [...] 3.77-5.28 WBC 7.5 {x10E3/uL} (Normal) Range: 4.0-10.5 82-Lyu-956279:14 Metabolic Panel, Comprehensive Comments: PATIENT NOT FASTINGPERFORMED BY: [facility])Djbset8283 [facility] [id number] (26546) ALT (SGPT) 19 [iU]/L (Normal) Range: 0-32 [...] Glucose, Serum 105 mg/dL (Abnormal) Range: 65-99 94-Qxx-371611:06 URINE VERÓNICA CULTURE-SHARIFA COL Comments: PATIENT NOT FASTINGPERFORMED BY: [facility]6370 [facility] [id number] Information: SRC:UR ADD [id number] COUNT (93418) Antimicrobial MIHEAD (Normal) Comments: S = Susceptible; [...] mL (Normal) Urine Final report Culture,Comprehensive (Normal) 03-Fyh-781614:09 Urinalysis, Office (80052) UA - BILIRUBIN Negative (Normal) UA - BLOOD Hemolyzed Moderate (Normal) UA - GLUCOSE Negative (Normal) UA - KETONES Negative mg/dL (Normal) UA - LEUKOCYTE ESTERASE Small (Normal) UA - NITRITE Negative (Normal) UA - PH 6.0 (Normal) UA - PROTEIN Negative mg/dL (Normal) UA - SPECIFIC GRAVITY 1.005 (Normal) URINE UROBILINGN SHARIFA TIMED 2 mg/dL (Normal) 7-Vim-754285:04 Renal function Panel Comments: PATIENT NOT FASTINGPERFORMED BY: [facility])Mbdphe0802 [facility] [id number] Information: [id number] (44650) Albumin, Serum 4.1 g/dL (Normal) Range: 3.6-4.8 [...] Glucose, Serum 110 mg/dL (Abnormal) Range: 65-99 50-Msy-397916:22 CALCIFEDIOL (79308) Comments: PATIENT NOT FASTINGPERFORMED BY: CB [facility] Niekmh6971 [address] RoadDublin [place] [id number] Vitamin D, 25-Hydroxy 16.7 ng/mL (Abnormal) Range: 30.0-100.0 Comments: Vitamin D deficiency has been defined by the [place] of[facility] and an Endocrine Society practice guideline as alevel of serum 25-OH vitamin D less than 20 ng/mL (1,2).The Endocrine Society went on to further define vitamin Dinsufficiency as a level between 21 and 29 ng/mL (2).1. IOM ([place] of Medicine). 2010. Dietary reference intakes for calcium and D. [place]: The National Academies Press.2. Azael MF, Leslee LEMON, Hillary PHILLIPS, et al. Evaluation, treatment, and prevention of vitamin D deficiency: an Endocrine Society clinical practice guideline. JCEM. 2010; 96(7):1911-30. 07-Mdm-983109:22 MAGNESIUM (00692) Comments: PATIENT NOT FASTINGPERFORMED BY: CB [facility] Wrwqgq3558 Monk RoadDublin [place] [id number] Magnesium, Serum 2.3 mg/dL (Normal) Range: 1.6-2.6 48-Syd-828766:22 T4, FREE (THYROXINE) (46895) Comments: PATIENT NOT FASTINGPERFORMED BY: [facility] Uykkfu0352 Monk RoadDublin [place] [id number] T4,Free(Direct) 1.50 ng/dL (Normal) Range: 0.82-1.77 79-Qwb-699776:22 T3, FREE (TRIDOTHYRONINE) (22530) Comments: PATIENT NOT FASTINGPERFORMED BY: CB [facility] Izehqq4858 [address]k RoadDublin [place] [id number] Triiodothyronine,Free,Serum 2.6 pg/mL (Normal) Range: 2.0-4.4 18-Ebw-129471:22 TSH (88176) Comments: PATIENT NOT FASTINGPERFORMED BY: CB [facility] Agwnzm9670 [address] RoadDublin [place] [id number] TSH 1.920 {uIU/mL} (Normal) Range: 0.450-4.500 :22 CBC, Platelets & Auto Comments: PATIENT NOT FASTINGPERFORMED BY: EMIL [facility] Qozhed1007 [address] [place] [id number] Information: [id number] Diff (66157) Immature Grans (Abs) 0.0 {x10E3/uL} (Normal) Range: [...] 3.77-5.28 WBC 8.5 {x10E3/uL} (Normal) Range: 4.0-10.5 61-Aki-062144:22 Metabolic Panel, Comprehensive Comments: PATIENT NOT FASTINGPERFORMED BY: EMIL [facility]outNowHills [facility] Hospital6370 [facility] [id number] (76498) ALT (SGPT) 21 [iU]/L (Normal) Range: 0-32 [...] Glucose, Serum 97 mg/dL (Normal) Range: 65-99 1-Pgz-473251:20 METABOLIC PANEL, COMPREHENSIVE Comments: PATIENT WAS FASTINGPERFORMED BY: [facility]6370 [facility] [id number] (12722) ALT (SGPT) 19 [iU]/L (Normal) Range: 0-32 [...] Glucose, Serum 102 mg/dL (Abnormal) Range: 65-99 6-Fjw-234547:20 CBC WITH MANUAL DIFF Comments: PATIENT WAS FASTINGPERFORMED BY: [facility] Junoai8788 [facility] [id number] Information: [id number] (93379) Immature Grans (Abs) 0.0 {x10E3/uL} (Normal) Range: [...] 3.77-5.28 WBC 7.4 {x10E3/uL} (Normal) Range: 3.4-10.8 3-Laa-655006:20 LIPID PANEL (56912) Comments: PATIENT WAS FASTINGPERFORMED BY: [employer] [facility] [id number] LDL/HDL Ratio 2.0 {ratio_units} (Normal) Range: 0.0-3.2 LDL Cholesterol Calc 109 mg/dL (Abnormal) Range: 0-99 VLDL Cholesterol Hillary 35 mg/dL (Normal) Range: 5-40 HDL Cholesterol 54 mg/dL (Normal) Comments: According to ATP-III Guidelines, HDL-C >59 mg/dL is considered anegative risk factor for CHD. Triglycerides 175 mg/dL (Abnormal) Range: 0-149 Cholesterol, Total 198 mg/dL (Normal) Range: 100-199 1-Rwm-156177:20 TSH (10747) Comments: PATIENT WAS FASTINGPERFORMED BY: Anvil Semiconductorslin6370 [facility] [id number] TSH 2.720 {uIU/mL} (Normal) Range: 0.450-4.500 07-Edc-161135:22 HgA1C , Office (39528) HgA1C , Office 6.0 % (Normal) Range: 4.6 - 7.1 02-Rqw-959640:22 Blood Glucose , Office (42588) Blood Glucose , Office 249 (Normal) Comments: has eaten in last 2h 32-Sxo-015115:20 CHEST, PA AND LATERAL Radiology Report See [...] Signed:Anibal Lan M.D.November 022012 at 8:14:34 AM [id number] Signed GP/GP If you are the referring physician and would like to consult with theradiologist who provided this interpretation, please contact Eliecer Bui M.D. at [phone]. If this radiologist is unavailable, youwill be directed to another radiologist to assist. If you are a patient with a question regarding this report, pleasecontactyour referring physician directly. Professional Interpretation Provided By: [employer], Phone , These documents contain legally protected [...] 11/22/12 0818 Sign by: Anibal Lan MD 55-Hfl-43697:19 VERÓNICA CULTURE-OTHER (04300) Comments: PATIENT NOT FASTINGPERFORMED BY: [facility] Fbyqlr4354 [facility] [id number] Information: SRC:THRT [id number] Result 1 RRF (Normal) Comments: Routine respiratory duyen Upper Respiratory Culture Final report (Normal) 65-Tyf-651769:33 Rapid Strep Test, Office (65671) Rapid Strep Test, Office Negative (Normal) 9-Mfy-410778:50 Celiac Disease Comprehensive Comments: PERFORMED BY: [employer] [facility] [id number] Immunoglobulin A, Qn, 364 mg/dL (Normal) Range: [...] Potassium, Serum 4.0 mmol/L Comments: PERFORMED BY: [employer] Qjtceq7152 [facility] [id number] 4:50 (Normal) Range: 3.5-5.2 7-Jdx-957120:30 CBCMD ANC 3.7 3/uL (Normal) Range: 2.0-7.7 [...] 4.2-5.4 WBC 7.0 {k/mm3} (Normal) Range: 4.4-11.0 3-Slo-471843:30 CMP GAP 11 (Normal) Range: 5-15 CO2 [...] 7-18 GLU 93 mg/dL (Normal) Range: 70-110 0-Hui-010397:30 LIPID LDL 108 mg/dL (Normal) Range: 0-130 [...] Very High > or = 500 mg/dL 7-Neo-869138:30 MIACRE MIALB 5.8 mg/L (Normal) tMICROCREAT 9.5 {mg/g_CRE} (Normal) CREU 60.7 mg/dL (Normal) 3-Bpy-200733:30 TSH 0.75 {uIU/mL} (Normal) Range: 0.358-3.74 :54 HgA1C , Office (24505) HgA1C , Office 5.5 % (Normal) Range: 4.6 - 7.1 :54 Blood Glucose , Office (27448) Blood Glucose , Office 116 (Normal) 07-Lrf-094747:26 URINE VERÓNICA CULTURE-SHARIFA COL Comments: PATIENT NOT FASTINGPERFORMED BY: [facility] Joubnm4781 [facility] [id number] Information: SRC:UR [id number] COUNT (96693) Result 1 MUG (Normal) Comments: Mixed urogenital flora50,000-100,000 colony forming units per mL Urine Final report (Normal) Culture,Comprehensive 55-Kip-037774:46 Urinalysis, Office (77853) UA - BILIRUBIN Small (Normal) UA - BLOOD Hemolyzed Small (Normal) UA - GLUCOSE Negative (Normal) UA - KETONES Small mg/dL (Normal) UA - LEUKOCYTE ESTERASE Moderate (Normal) UA - NITRITE Negative (Normal) UA - PH 6.0 (Normal) UA - PROTEIN Trace mg/dL (Normal) UA - SPECIFIC GRAVITY 1.025 (Normal) URINE UROBILINGN SHARIFA TIMED Normal mg/dL (Normal) 03-Hgh-900692:55 CHEST, PA AND LATERAL Radiology Report See [...] radiologist regarding this report, please call our [id number] line @ Dictated on 1518 by Isiah Lan MDranscribed on 11/23/11 161 by ITS IMPORTSign by Anibal Lan MD on 11/23/11 1611 Sign by: Anibal Lan MD 87-Bts-84414:51 Urinalysis, Office (21598) UA - BILIRUBIN Negative (Normal) UA - BLOOD Hemolyzed Small (Normal) UA - GLUCOSE Negative (Normal) UA - KETONES Negative mg/dL (Normal) UA - LEUKOCYTE ESTERASE Large (Normal) UA - NITRITE Negative (Normal) UA - PH 7.0 (Normal) UA - PROTEIN Negative mg/dL (Normal) UA - SPECIFIC GRAVITY 1.020 (Normal) URINE UROBILINGN SHARIFA TIMED 2 mg/dL (Normal) :51 HgA1C , Office (19211) HgA1C , Office 6.2 % (Normal) Range: 4.6 - 7.1 :50 Blood Glucose , Office (31597) Blood Glucose , Office 119 (Normal) :55 Urinalysis, Office (08509) UA - BILIRUBIN Negative (Normal) UA - [...] Ultrasound evaluation of the right upper quadrant [facility] [place] with real-time ultrasonography and static grayscale imaging. [...] Muscle) 13 {Units} (Normal) Comments: PERFORMED BY: [facility] [id number] :58 Antibody Range: 0-19 Comments: Negative 0 - 19 Weak positive 20 - 30 Moderate to strong positive >30 . Actin Antibodies are found in 52-85% of patients with autoimmune hepatitis or chronic active hepatitis and in 22% of patients with primary biliary cirrhosis. :58 Antinuclear Antibodies Direct Comments: PERFORMED BY: [facility] [id number] GAYATRI Direct Negative (Normal) :5 Ceruloplasmin 31.6 mg/dL (Normal) Comments: PERFORMED BY: [employer] [facility] [id number] Range: 16.0-45.0 :5 Ferritin, Serum 440 ng/mL (Abnormal) Comments: PERFORMED BY: [facility] [id number] Range: 13-150 :58 Hepatitis Panel (4) Comments: PERFORMED BY: [facility] [id number] Hep C Virus Ab 0.1 {s/co_ratio} (Normal) [...] (Normal) Hep A Ab, IgM Negative (Normal) 23-Zvq-23761:58 Iron and TIBC Comments: PERFORMED BY: [employer] [facility] [id number] Iron Saturation 37 % (Normal) Range: 15-55 Iron, Serum 96 ug/dL (Normal) Range: 35-155 UIBC 163 ug/dL (Normal) Range: 150-375 Iron Bind.Cap.(TIBC) 259 ug/dL (Normal) Range: 250-450 :58 Platelet Count on Citrated Comments: PERFORMED BY: [employer] [facility] [id number] Bld Plt Count, Citrated Bld 216 {X10E3/uL} Range: 140-415 (Normal) 11-Jun-2011 Written Authorization WAR (Normal) Comments: PERFORMED BY: [employer] [facility] [id number] 9:58 Comments: Written Authorization Received.Authorization received from [facility] [id number] by Elina Swain :30 HgA1C , Office (60575) HgA1C , Office 6.7 % (Normal) Range: 4.6 - 7.1 :30 Blood Glucose , Office (37094) Blood Glucose , Office 159 (Normal) :15 METABOLIC PANEL, COMPREHENSIVE Comments: PATIENT WAS FASTINGPERFORMED BY: [employer] Semiconductorslin6370 [facility] [id number] (12230) ALT (SGPT) 51 [iU]/L (Abnormal) Range: 0-40 [...] mg/dL (Abnormal) Range: 65-99 :15 LIPID PANEL (70633) Comments: PATIENT WAS FASTINGPERFORMED BY: [employer]6370 Designqwest PlatformsFormerly [facility], [facility] [id number] LDL/HDL Ratio 1.8 {ratio_units} (Normal) Range: 0.0-3.2 [...] MANUAL DIFF Comments: PATIENT WAS FASTINGPERFORMED BY: Mitro70 [facility] [id number] Information: [id number] (84015) Immature Grans (Abs) 0.0 {x10E3/uL} (Normal) Range: [...] 3.80-5.10 WBC 8.3 {x10E3/uL} (Normal) Range: 4.0-10.5 28-Fcl-681003:26 Hepatic Function Panel (7) Comments: PERFORMED BY: [facility]Udhtkd0427 [facility] [id number] ALT (SGPT) 63 [iU]/L (Abnormal) Range: 0-40 Alkaline Phosphatase, S 63 [iU]/L (Normal) Range: 25-165 AST (SGOT) 53 [iU]/L (Abnormal) Range: 0-40 Bilirubin, Direct 0.13 mg/dL (Normal) Range: 0.00-0.40 Bilirubin, Total 0.4 mg/dL (Normal) Range: 0.0-1.2 Albumin, Serum 4.5 g/dL (Normal) Range: 3.6-4.8 Protein, Total, Serum 7.8 g/dL (Normal) Range: 6.0-8.5 24-Tvl-083496:26 Hepatitis Panel (4) Comments: PERFORMED BY: [facility] Qczotz3598 [facility] [id number] Hep C Virus Ab <0.1 {s/co_ratio} (Normal) [...] (Normal) Hep A Ab, IgM Negative (Normal) 4-Dps-561475:04 LIVER D BILI 0.11 mg/dL (Normal) Range: 0.00-0.30 T BILI 0.30 mg/dL (Normal) Range: 0.00-1.00 ALK P 57 U/L (Normal) Range: 50-136 ALT 68 U/L (Normal) Range: 12-78 ALB 4.0 g/dL (Normal) Range: 3.4-5.0 AST 53 U/L (Abnormal) Range: 15-37 T PROT 8.0 g/dL (Normal) Range: 6.4-8.2 :59 HgA1C , Office (82813) HgA1C , Office 6.6 % (Normal) Range: 4.6 - 7.1 :59 Blood Glucose , Office (21817) Blood Glucose , Office 124 (Normal) :17 HgA1C , Office (31285) HgA1C , Office 6.4 % (Normal) Range: 4.6 - 7.1 93-Ruq-51291:17 Blood Glucose , Office (13325) Blood Glucose , Office 141 (Normal) 30-Rvk-130941:17 Hemoglobin Glyclated (HGB A1C) Comments: PATIENT WAS FASTINGPERFORMED BY: [facility]Now[facility]6370 [facility] [id number] (18647) Hemoglobin A1c 6.0 % (Abnormal) Range: 4.8-5.6 Comments: Increased risk for diabetes: 5.7 - 6.4 Diabetes: >6.4 Glycemic control for adults with diabetes: <7.0 66-Axf-256187:17 MICROALBUMIN: CREATININE RATIO Comments: PATIENT WAS FASTINGPERFORMED BY: [facility]Now[facility]6370 [facility] [id number] (64689) AND (08546) Microalb/Creat Ratio 2.9 {mg/g_creat} (Normal) Range: 0.0-30.0 Creatinine, Urine 49.0 mg/dL (Normal) Range: 15.0-278.0 Microalbumin, Urine 1.4 ug/mL (Normal) Range: 0.0-17.0 52-Qpv-644962:17 METABOLIC PANEL, COMPREHENSIVE Comments: PATIENT WAS FASTINGPERFORMED BY: Novatel WirelessCibola General HospitalLpkqhx4586 [facility] [id number] (24410) Alkaline Phosphatase, S 61 [iU]/L (Normal) Range: [...] Glucose, Serum 116 mg/dL (Abnormal) Range: 65-99 95-Qev-793365:17 LIPID PANEL (48371) Comments: PATIENT WAS FASTINGPERFORMED BY: [facility] Wfuhne5758 [facility] [id number] LDL/HDL Ratio 2.2 {ratio_units} (Normal) Range: 0.0-3.2 HDL Cholesterol 50 mg/dL (Normal) Comments: According to ATP-III Guidelines, HDL-C >59 mg/dL is considered anegative risk factor for CHD. LDL Cholesterol Calc 109 mg/dL (Abnormal) Range: 0-99 VLDL Cholesterol Hillary 56 mg/dL (Abnormal) Range: 5-40 Cholesterol, Total 215 mg/dL (Abnormal) Range: 100-199 Triglycerides 282 mg/dL (Abnormal) Range: 0-149 :17 CBC WITH MANUAL DIFF (00728) Comments: PATIENT WAS FASTINGPERFORMED BY: EMIL [employer] [facility] [id number] Immature Grans (Abs) 0.0 {x10E3/uL} (Normal) Range: [...] 3.80-5.10 WBC 8.6 {x10E3/uL} (Normal) Range: 4.0-10.5 35-Zia-055351:57 Folic Acid Serum (29559) Comments: PATIENT NOT FASTINGPERFORMED BY: [employer] Property Managerin [place] [id number] Folate (Folic Acid), Serum 12.6 ng/mL (Normal) Comments: Indeterminate: 2.2 - 3.0Deficient: <2.2 91-Qvr-101595:57 Vitamin B-12 (cyanocobalamin) Comments: PATIENT NOT FASTINGPERFORMED BY: [facility]6370 [facility] [id number] (49261) Vitamin B12 551 pg/mL (Normal) Range: 211-946 32-Smb-652030:57 CBC with manual diff Comments: PATIENT NOT FASTINGPERFORMED BY: [facility]6370 [facility] [id number] Information: [id number] (74253) Baso (Absolute) 0.1 {x10E3/uL} (Normal) Range: 0.0-0.2 [...] 3.80-5.10 WBC 9.4 {x10E3/uL} (Normal) Range: 4.0-10.5 37-Ieb-972194:57 Metabolic Panel, Comprehensive Comments: PATIENT NOT FASTINGPERFORMED BY: [facility][id number] [facility] [id number] ([id number]) ALT (SGPT) 18 [iU]/L (Normal) Range: 0-40 [...] mg/dL (Abnormal) Range: 65-99 :57 DRUG ASSAY-LITHIUM ([id number]) Comments: PATIENT NOT FASTINGPERFORMED BY: [facility] [facility] [id number] [place] ([place]), Serum 1.0 mmol/L (Normal) Range: 0.6-1.4 Comments: Detection Limit = 0.1<0.1 indicates None Detected :57 T4, FREE (THYROXINE) (19300) Comments: PATIENT NOT FASTINGPERFORMED BY: [place] [id number] [facility] [id number] T4,Free(Direct) 1.17 ng/dL (Normal) Range: 0.82-1.77 :57 T3, FREE (TRIDOTHYRONINE) (74629) Comments: PATIENT NOT FASTINGPERFORMED BY: [facility] [id number] Triiodothyronine,Free,Serum 2.1 pg/mL (Normal) Range: 2.0-4.4 :57 TSH (48422) Comments: PATIENT NOT FASTINGPERFORMED BY: [facility] [id number] TSH 4.080 {uIU/mL} (Normal) Range: 0.450-4.500 :43 HgA1C , Office (00798) HgA1C , Office 5.3 % (Normal) Range: 4.6 - 7.1 :43 Blood Glucose , Office (74036) Blood Glucose , Office 125 (Normal) :4 [...] 136-145 GLU 84 mg/dL (Normal) Range: 70-110 22-Mru-206711:42 LI 0.60 mmol/L (Normal) Comments: Therapeutic Range: 0.60 - 1.20 10-Est-868592:58 Thin prep Pap Comments: Source.............Cervical;EndocervicalNo. of containers..01 CYTYC Thin Prep VialPATIENT NOT FASTINGPERFORMED BY: [facility] [id number] Information: [id number] ([id number]) Note: PAPSMR (Normal) Comments: The Pap smear [...] atrophy.V 72.31 ; Routine gynecological examinationRita Gonzalez [employer] (ASCP) 76-Iuz-577372:00 TSH (54982) Comments: PATIENT NOT FASTINGPERFORMED BY: [facility] [id number] TSH 3.440 {uIU/mL} (Normal) Range: 0.450-4.500 45-Wdd-570845:00 CBC (Auto) (06122) Comments: PATIENT NOT FASTINGPERFORMED BY: [facility] [id number] Information: [id number] Platelets 258 {x10E3/uL} (Normal) Range: 140-415 RDW 13.6 % (Normal) Range: 11.7-15.0 Hematocrit 43.5 % (Normal) Range: 34.0-44.0 MCH 31.6 pg (Normal) Range: 27.0-34.0 MCHC 33.6 g/dL (Normal) Range: 32.0-36.0 MCV 94 fL (Normal) Range: 80-98 Hemoglobin 14.6 g/dL (Normal) Range: 11.5-15.0 RBC 4.61 {x10E6/uL} (Normal) Range: 3.80-5.10 WBC 8.6 {x10E3/uL} (Normal) Range: 4.0-10.5 95-Ete-068930:00 Metabolic Panel, Basic Comments: PATIENT NOT FASTINGPERFORMED BY: [facility]Pjouic4194 [facility] [id number] ([id number]) Calcium, Serum 9.1 mg/dL (Normal) Range: 8.6-10.2 [...] Glucose, Serum 111 mg/dL (Abnormal) Range: 65-99 81-Thb-100306:00 DRUG ASSAY-LITHIUM (54693) Comments: all these labs standing order prn; PATIENT NOT FASTINGPERFORMED BY: [facility]Jxsoal3658 [facility] [id number] [place] ([place]), Serum 0.9 mmol/L (Normal) Range: 0.6-1.4 Comments: Detection Limit = 0.1<0.1 indicates None Detected 88-Jlw-92797:16 METABOLIC PANEL, COMPREHENSIVE Comments: PATIENT NOT FASTINGPERFORMED BY: [facility]Szrfup[address] [facility] [id number] ([id number]) A/G Ratio 1.3 (Normal) Range: 1.1-2.5 Alkaline [...] Glucose, Serum 207 mg/dL (Abnormal) Range: 65-99 95-Rbw-68989:16 CBC WITH MANUAL DIFF Comments: PATIENT NOT FASTINGPERFORMED BY: [facility]Bkwqhw7848 [facility] [id number] Information: [id number] (78436) Baso (Absolute) 0.1 {x10E3/uL} (Normal) Range: 0.0-0.2 [...] CREATININE RATIO Comments: PATIENT NOT FASTINGPERFORMED BY: [facility] [id number] (93028) AND (15662) Microalb/Creat Ratio 6.2 {mg/g_creat} (Normal) Range: 0.0-30.0 Microalbumin, Urine 2.5 ug/mL (Normal) Range: 0.0-17.0 Creatinine, Urine 40.1 mg/dL (Normal) Range: 15.0-278.0 :38 HgA1C , Office (32558) HgA1C , Office 6.6 % (Normal) Range: 4.6 - 7.1 :38 Blood Glucose , Office (85007) Blood Glucose , Office 214 (Normal) 90-Fub-068717:05 URINE VERÓNICA CULTURE-IDENTIFICATN Comments: PATIENT NOT FASTINGPERFORMED BY: [facility]6370 [facility] [id number] Information: [id number] (57503) Antimicrobial MIHEAD (Normal) Comments: S = Susceptible; [...] mL (Normal) Urine Final report (Normal) Culture,Comprehensive 38-Euo-942998:23 CHEST, PA AND LATERAL (MT) Radiology Report See Note (Normal) Comments: Exam Number: [id number] CLINICAL:58-year-old female with cough, pain and shortness [...] :23 B.pertussisB.parapertussis PCR Comments: PERFORMED BY: ELIESER BoiwYqh0182 [facility] [id number] Bordetella parapertussis DNA Negative (Normal) Comments: .This test was developed and its performance characteristics determinedby [employer]. It has not been cleared or approved by theU.S. Food and Drug Administration. The FDA has determined that s uchclearance or approval is not necessary. This test is used for clinicalpurposes. It should not be regarded as investigational or research. Bordetella pertussis DNA Negative (Normal) :50 HgA1C , Office (90185) HgA1C , Office 5.5 % (Normal) Range: 4.6 - 7.1 :50 Blood Glucose , Office (40407) Blood Glucose , Office 90 (Normal) :33 HgA1C , Office (36011) HgA1C , Office 5.6 % (Normal) Range: 4.6 - 7.1 :41 HgA1C , Office (74685) HgA1C , Office 5.5 % (Normal) Range: 4.6 - 7.1 Comments: cyril :41 Blood Glucose , Office (48947) Comments: 89 Blood Glucose , Office 89 [...] (Normal) Range: 0.34-4.82 :42 HgA1C , Office (17270) HgA1C , Office 5.4 % (Normal) Range: 4.6 - 7.1 :42 Blood Glucose , Office (75858) Blood Glucose , Office 103 (Normal) :20 [...] T PROT 8.0 g/dL (Normal) Range: 6.4-8.2 32-Cuh-682497:20 LIPID CHOL 148 mg/dL (Normal) Comments: <200 [...] mg/dL VLDL 30 mg/dL (Normal) Range: 5-40 34-Sll-983680:20 ROUTINE UA BILIRUBIN URINE SeeNote (Normal) Comments: [...] 0.2 EU/dl (Normal) Range: 0.2 - 1.0 65-Cbg-69126:06 THYROID (HP) Radiology Report See Note (Normal) Comments: Exam Number: [id number] THYROID ULTRASOUND HISTORYGoiter. There is borderline increase [...] 03, 2007. Reported By: PETRONA REGALADO M.D. 54-Ydj-66510:20 MAMM, UILAT DIAG DIGITAL & CAD Radiology Report See Note (Normal) Comments: Exam Number: [id number] UNILATERAL LEFT DIAGNOSTIC MAMMOGRAPHY CLINICAL STATEMENTLeft breast [...] The mammogramswere also examined with computer-aided detection software([facility] Reported By: REID KRUEGER M.D. 1-Xvd-501294: TSH 0.94 {uIU/mL} Range: 0.34-4.82 50 (Normal) :06 MAMM, BILAT SCRN DIGITAL & CAD Radiology Report See Note (Normal) Comments: Exam Number: [id number] MAMMOGRAM, BILATERAL SCREENING DIGITAL AND CAD HISTORYRoutine [...] was rendered by a radiologist certified under [facility] Quality Standards Act of 1992 (MQSA). The mammograms werealso examined with computer-aided detection software ([employer].). Reported By: PETRONA REGLAADO M.D. :05 THYROID (HP) Radiology Report See Note (Normal) Comments: Exam Number: [id number] THYROID ULTRASOUND HISTORYGoiter. High resolution real time [...] 6 months. Reported By: PETRONA REGALADO M.D. 30-Ajn-727335:22 HgA1C , Office (25723) HgA1C , Office 5.9 % (Normal) Range: 4.6 - 7.1 20-Ttn-449118:22 Blood Glucose , Office (33171) Blood Glucose , Office 88 (Normal) Plan [...] II, controlled Stress incontinence, female : Reviewed Litigation Partner Letter Indication: Stress incontinence, female Diabetes mellitus [...] acute Planned Observations VITAMIN B12 AND FOLATES (64736)Indication: Neuropathic pain On: :08 Request Blood Glucose , Office (49646)Indication: Diabetes mellitus type II, controlled On: 78-Kui-33191:04 Request LIPID PANEL (19850)Indication: Neuropathic pain On: :54 Request Blood Glucose , Office (01093)Indication: Diabetes mellitus type II, controlled On: 02-Nov-20178:55 Request D-Dimer (94368)Indication: Shortness of breath On: 02-Cbo-727236:19 Request Metabolic Panel, Comprehensive (89696)Indication: Diabetes mellitus type II, controlled On: 30-Pmf-158715:19 Request Comments: Nov 2017 LIPID PANEL (51396)Indication: Diabetes mellitus type II, controlled On: 93-Wjj-531797:19 Request Comments: Nov 2017 URINALYSIS (54623)Indication: Diabetes mellitus type II, controlled On: 17-Jgk-876788:19 Request Comments: Nov 2017 TSH (64022)Indication: Diabetes mellitus type II, controlled On: 28-Ubu-309390:18 Request Comments: Nov 2017 CBC, Platelets & Auto Diff (92744)Indication: Diabetes mellitus type II, controlled On: 34-Dvo-957019:18 Request Comments: Nov 2017 MICROALBUMIN: CREATININE RATIO (18510) AND (00183)Indication: Diabetes mellitus type II, controlled On: 36-Nad-548801:18 Request Comments: Nov 2017 HgA1C , Office (68113)Indication: Diabetes mellitus type II, controlled On: 70-Vgm-393155:44 Request Anaerobic & Aerobic Culture (73828)Indication: Mouth pain On: 2-Cfg-163063:11 Request Metabolic Panel, Comprehensive (21665)Indication: Chronic kidney disease (CKD), stage I On: 36-Urw-404912:50 Request Comments: 2 weeks Metabolic Panel, Comprehensive (58528)Indication: Diabetes mellitus type II, controlled On: 62-Gik-004808:56 Request Comments: today URINALYSIS (94110)Indication: Chronic kidney disease (CKD), stage I On: 98-Ulx-292605:52 Request Comments: Jul 2017 MICROALBUMIN: CREATININE RATIO (99257) AND (94731)Indication: Chronic kidney disease (CKD), stage I On: 98-Hjg-474678:52 Request Comments: jul 2017 Lipid Panel (24269)Indication: Hypertension (Renamed from BP (high blood pressure)) On: 98-Jag-702408:52 Request Comments: Jul 2017 TSH (91689)Indication: Leg weakness On: 01-Fxt-978404:52 Request Comments: Jul 2017 CBC, Platelets & Auto Diff (69208)Indication: Leg weakness On: 11-Dkl-240609:52 Request Comments: jul 2017 METABOLIC PANEL, COMPREHENSIVE (07566)Indication: Weakness On: 91-Kjb-977020:55 Request METABOLIC PANEL, COMPREHENSIVE (48604)Indication: Hypokalemia On: :43 Request Comments: STAT SED RATE ERYTHROCYTE (78449)Indication: Weakness On: 45-Xez-819956:29 Request TSH (THYROID STIMULATING HORMONE) (95115)Indication: Unspecified abnormal involuntary movements On: :17 Request METABOLIC PANEL, COMPREHENSIVE (39964)Indication: Unspecified abnormal involuntary movements On: :17 Request CBC, PLATELETS & AUT DIFF (79193)Indication: Unspecified abnormal involuntary movements On: 70-Alp-097860:17 Request URINE VERÓNICA CULTURE-IDENTIFICATN (16130)Indication: Weakness On: 32-Tjy-967330:07 Request Blood Glucose , Office (82856)Indication: Unspecified abnormal involuntary movements On: 20-Taj-81638:59 Request VITAMIN B12 AND FOLATES (68855)Indication: Unspecified abnormal involuntary movements On: 89-Lgv-89304:57 Request SPEP (26842)Indication: Elevated serum creatinine On: 31-Cvw-438984:31 Request CALCIFIDIOL (96332) VIT D 25Indication: Vitamin D deficiency (Renamed from Avitaminosis D) On: :27 Request TSH (12384)Indication: Hypothyroidism On: :27 Request MICROALBUMIN: CREATININE RATIO (48785) AND (08379)Indication: Diabetes mellitus type II, controlled On: :27 Request METABOLIC PANEL, COMPREHENSIVE (71271)Indication: Diabetes mellitus type II, controlled On: :27 Request LIPID PANEL (68386)Indication: Diabetes mellitus type II, controlled On: :27 Request CBC with auto diff (35407)Indication: Diabetes mellitus type II, controlled On: :27 Request CALCIFIDIOL (83434) VIT D 25Indication: Vitamin D deficiency (Renamed from Avitaminosis D) On: 61-Dxj-228450:15 Request Comments: in three months (approximately) METABOLIC PANEL, COMPREHENSIVE (83800)Indication: Diabetes mellitus type II, controlled On: 27-Apz-659762:15 Request Comments: in three months (approximately) SODIUM URINE (26841)Indication: Hyponatremia On: :51 Request OSMOLALITY URINE (86184)Indication: Hyponatremia On: :50 Request OSMOLALITY BLOOD (90115)Indication: Hyponatremia On: :50 Request ASSAY, TROPONIN, QUANTITATIVE (aka Troponin I) (14428)Indication: Chest pain On: :40 Request Comments: stat D-Dimer (95246)Indication: Chest pain On: 59-Xzw-117353:40 Request Comments: stat TSH (86190)Indication: Chest pain On: :40 Request CBC WITH MANUAL DIFF (88170)Indication: Chest pain On: :40 Request METABOLIC PANEL, COMPREHENSIVE (54216)Indication: Chest pain On: 17-Iht-465752:40 Request URINE VERÓNICA CULTURE (SHARIFA COL COUNT) (97986)Indication: Dysuria (Renamed from Difficult or painful urination) On: 56-Jph-123749:24 Request Metabolic Panel, Comprehensive (02823)Indication: Hypertension (Renamed from BP (high blood pressure)) On: 51-Djh-262718:56 Request Metabolic Panel, Basic (39578)Indication: Elevated LFTs On: 58-Ilp-792289:16 Request 24 hour urine for Protein (49794)Indication: Elevated serum creatinine On: 91-Vkq-240577:40 Request Comments: recheck in one week CREATININE CLEARANCE (27641)Indication: Elevated serum creatinine On: 98-Miq-392589:39 Request Comments: recheck in one week Blood Glucose , Office (15817)Indication: Diabetes mellitus type II, controlled On: 70-Uhb-98307:29 Request METABOLIC PANEL, COMPREHENSIVE (53310)Indication: Hypokalemia (Renamed from Decreased potassium in the blood) On: 44-Rig-123740:52 Request MICROALBUMIN: CREATININE RATIO (36428) AND (55413)Indication: Diabetes mellitus type II, controlled On: 76-Zbn-307210:14 Request FLURESCNT ANTIB SCRN EA (60558) celiac profileIndication: Irritable bowel syndrome (Renamed from Functional bowel disease) On: 1-Zjd-368956:58 Request IMMUNOASSAY, ANALYTE (NON-INFECT) (54651) celiac profileIndication: Irritable bowel syndrome (Renamed from Functional bowel disease) On: 7-Gsy-943573:58 Request IGA/IGD/IGG/IGM-EACH (42005) celiac profileIndication: Irritable bowel syndrome (Renamed from Functional bowel disease) On: 3-Yvz-797884:58 Request Potassium Serum (56625)Indication: Hypokalemia (Renamed from Decreased potassium in the blood) On: 8-Jjn-327314:58 Request Celiac Disease Comphrehensive Profile (43410)Indication: Irritable bowel syndrome (Renamed from Functional bowel disease) On: 04-Nov-20129:56 Request METABOLIC PANEL, COMPREHENSIVE (10016)Indication: Diabetes mellitus type II, controlled On: 54-Vzs-357164:32 Request LIPID PANEL (04331)Indication: Diabetes mellitus type II, controlled On: 59-Ydo-177806:32 Request CBC WITH MANUAL DIFF (99903)Indication: Diabetes mellitus type II, controlled On: 28-Yuu-878276:32 Request MICROALBUMIN: CREATININE RATIO (22895) AND (76678)Indication: Diabetes mellitus type II, controlled On: 82-Hlv-281443:32 Request TSH (02939)Indication: Hypothyroidism On: 36-Osf-448601:32 Request TSH (63659)Indication: Hypothyroidism On: 34-Gdr-099823:26 Request MICROALBUMIN: CREATININE RATIO (57064) AND (17301)Indication: Diabetes mellitus type II, controlled On: 85-Gzq-453922:26 Request METABOLIC PANEL, COMPREHENSIVE (41475)Indication: Diabetes mellitus type II, controlled On: 17-Dnr-397726: Request LIPID PANEL (65344)Indication: Diabetes mellitus type II, controlled On: :26 Request CBC WITH MANUAL DIFF (12549)Indication: Diabetes mellitus type II, controlled On: 58-Jub-373629:26 Request URINE VERÓNICA CULTURE-SHARIFA COL COUNT (77626)Indication: Dysuria (Renamed from Difficult or painful urination) On: 55-Jta-874862:15 Request URINE VERÓNICA CULTURE-SHARIFA COL COUNT (49761)Indication: Dysuria (Renamed from Difficult or painful urination) On: 55-Lrb-626749:55 Request Ferritin (17114)Indication: Elevated LFTs On: 98-Fbm-036351:50 Request Comments: repeat now per Dr. Cabral with iron level Iron Binding Capacity (TIBC) (76572)Indication: Elevated LFTs On: :50 Request Iron (85027)Indication: Elevated LFTs On: :49 Request CBC (Auto) (24318)Indication: Thrombocytopenia, unspecified On: 28-Xwu-933713: Request Comments: nonclumping tube HEPATITIS PANEL (75007)Indication: Elevated LFTs On: 38-Fty-227185: Request FERRITIN (49438)Indication: Elevated LFTs On: 25-Gwv-531156:00 Request CERULOPLASMIN (24396)Indication: Elevated LFTs On: 03-Mdz-213518:00 Request ASM (ANTI SMOOTH MUSCLE ANTIBODY) (93697)Indication: Elevated LFTs On: 52-Hmt-117725:00 Request GAYATRI (ANTINUCLEAR ANTIBODY) (64260)Indication: Elevated LFTs On: 21-Ajj-012834:00 Request HEPATITIS PANEL (48691)Indication: Elevated LFTs On: :01 Request TSH (50501)Indication: Hypothyroidism On: 84-Qem-028926:16 Request LIPID PANEL (58091)Indication: Diabetes mellitus type II, controlled On: 83-Apt-896817:15 Request DRUG ASSAY-LITHIUM (98167)Indication: Bipolar affective disorder, mixed On: 84-Emp-851528:14 Request Metabolic Panel, Basic (85229)Indication: Bipolar affective disorder, mixed On: 97-Dud-609840:13 Request Metabolic Panel, Basic (20090)Indication: Bipolar affective disorder, mixed On: 02-Kff-815480:22 Request DRUG ASSAY-LITHIUM (74635)Indication: Bipolar affective disorder, mixed On: 64-Lrz-157488:22 Request Comments: 2 months Urinalysis, Office (84674)Indication: Urinary frequency On: 44-Rcl-064838:27 Request Comments: done pms HEPATIC FUNCTION PANEL (22938)Indication: Other and unspecified hyperlipidemia On: 0-Cut-970860:45 Request Lipid Panel (55841)Indication: Other and unspecified hyperlipidemia On: 8-Gyl-716017:45 Request Lipid Panel (01386)Indication: Other and unspecified hyperlipidemia On: 20-Hcl-647849:17 Request CBC, Platelets & Auto Diff (80630)Indication: Other and unspecified hyperlipidemia On: :17 Request Metabolic Panel, Comprehensive (90799)Indication: Other and unspecified hyperlipidemia On: :17 Request TSH (94840)Indication: Hypothyroidism On: :15 Request Metabolic Panel, Basic (88479)Indication: Other and unspecified hyperlipidemia On: :55 Request Lipid Panel (42580)Indication: Other and unspecified hyperlipidemia On: :55 Request Comments: in three months (approximately) CBC (Auto) (07253)Indication: Intestinal disaccharidase deficiencies and disaccharide malabsorption On: :56 Request Metabolic Panel, Comprehensive (17273)Indication: Intestinal disaccharidase deficiencies and disaccharide malabsorption On: :56 Request Lipid Panel (34032)Indication: Intestinal disaccharidase deficiencies and disaccharide malabsorption On: :56 Request Comments: in three months (approximately) MICROALBUMIN 24 HOUR OR RANDOM On: 39-Czu-410107:04 Request (34534) CREATININE CLEARANCE (89851) On: 35-Ktu-003442:03 Request CBC (Auto) (02966)Indication: Unspecified disorder of kidney and ureter On: :53 Request Lipid Panel (72644)Indication: Unspecified disorder of kidney and ureter On: :53 Request Metabolic Panel, Comprehensive (40895)Indication: Unspecified disorder of kidney and ureter On: :53 Request TSH (39328)Indication: Hypothyroidism On: :53 Request TSH (89137)Indication: Hypothyroidism On: 44-Nul-152044:18 Request URINALYSIS (62143)Indication: Intestinal disaccharidase deficiencies and disaccharide malabsorption On: 35-Mta-280411:43 Request CBC (Auto) (72233)Indication: Intestinal disaccharidase deficiencies and disaccharide malabsorption On: 46-Huy-884614:43 Request Lipid Panel (51760)Indication: Intestinal disaccharidase deficiencies and disaccharide malabsorption On: :43 Request Metabolic Panel, Comprehensive (27361)Indication: Intestinal disaccharidase deficiencies and disaccharide malabsorption On: 12-Ufm-999797:43 Request Planned Procedures COMPUTED TOMOGRAPHY ANGIOGRAPHY OF On: 01-Aug-2018 Intent CHEST FOR PULMONARY EMBOLISM Comments: stat for PE (66148)By: Eli Bowman CNP, CNP, Mary E Echo CompleteBy: Eli Bowman CNP On: 29-Jul-2018 Intent Eli Bowman CNP Spirometry (40129)By: Colby WATTERS, On: 29-Jul-2018 Intent Eli Mcelroy CNP Holter Monitor 24 hrsBy: Colby WATTERS, On: 29-Jul-2018 Intent Eli Mcelroy CNP CHEST XRAY, PA & LATERAL (55700)By: On: 29-Jul-2018 Intent Eli Bowman CNP, CNP, Mary E ELECTROCARDIOGRAM, COMPLETE (ECG) On: 29-Jul-2018 Intent (18200)By: Eli Bowman CNP Comments: sinus rhythm Eli WATTERS Aerosol Treatment (41090)By: Colby On: 29-Jul-2018 Intent Eli WATTERS CNP, Mary E Flu Vaccine (Quadrivalent) 67063Hh: On: 22-Jul-2018 Intent Tejal Ceron Comments: Lot #[id number]-L dltd, IMDose prefilled syringegiven by: Rosalie Ceron MA Toradol Injection, 30 mg (J1885)By: On: 09-May-2018 Intent Nunu Root Comments: lot [id number] 12/2029mgIMleft gmas, ORDER DESK CALLER SCREENING DIGITAL TOMOSYNTHESIS OF On: 18-Apr-2018 Intent BREAST (97748)By: Eli Bowman CNP E Eli Bowman CNP DEXA SCAN AXIAL SKELETON (86976)By: On: 18-Apr-2018 Intent Eli Bowman CNP E Colby WATTERS, Eli Lubin Toradol Injection, 30 mg (J1885)By: On: 22-Mar-2018 Intent Nunu Root Comments: toradol 30mg injection lot:07-824-BYbso:10/2019R GMpt tolerated wellMSMITH,ORDER DESK CALLER COMPLETE ELECTROMYOGRAPHY (EMG) WITH On: 22-Mar-2018 Intent NERVE CONDUCTION STUDIES OF EACH Comments: Bilateral lower legs EXTREMITY (78418)By: Nunu Root EMGBy: Eli Bowman CNP, CNP, On: 03-Jan-2018 Intent Eli Lubin Comments: both legs Nerve ConductionBy: Eli Bowman CNP On: 03-Jan-2018 Intent E Eli Bowman CNP Comments: both legs Toradol Injection, 30 mg (J1885)By: On: 23-Dec-2017 Intent Mayda Dobbins DO Comments: toradol 30mg injectionlot: 01-124-PVpcl: 06/2018L GMpt tolerated wellAD ORDER DESK CALLER Spirometry (60185)By: Dk, On: 16-Nov-2017 Intent Nunu Comments: Normal spirometry Aerosol Treatment (08669)By: Shilpi On: 30-Aug-2017 Intent Mayda COLEMAN Comments: less noise with forced exp Solu- Medrol Injection, 125mg On: 30-Aug-2017 Intent (J2930)By: Mayda Dobbins DO Comments: solumedrol 125mg injectionlot: [id number]: 12/2019R GMpt tolerated wellAD ORDER DESK CALLER Radiology - Chest- PA and LatBy: On: 30-Aug-2017 Intent Mayda Dobbins DO Solu- Medrol Injection, 125mg On: 26-Aug-2017 Intent (J2930)By: Mayda Dobbins DO Comments: solumedrol 125mg injectionlot: [id number]: 12/2019L GMpt tolerated wellAD ORDER DESK CALLER Aerosol Treatment (19596)By: Shilpi On: 26-Aug-2017 Mayda Bailey DO Comments: [place] Spirometry (16633)By: Shilpi COLEMAN On: 26-Aug-2017 Intent Mayda Comments: mild obstruction Radiology - Shoulder - RightBy: On: 20-Jul-2017 Intent Edita Cabral MD Radiology - Lumbar SpineBy: Misha On: 20-Jul-2017 Intent Edita PROCTOR DRAIN/INJECT MAJOR JOINT OR BURSA On: 13-Apr-2017 Intent (93401)By: Eli Bowman CNP Comments: injevted left knee today JANENE, Eli Lubin PHYSICAL THERAPY (18885)By: Dk, On: 08-Apr-2017 Intent Nunu Radiology - Knee - RightBy: Dk, On: 08-Apr-2017 Intent Nunu Radiology - Knee - LeftBy: Dk, On: 08-Apr-2017 Intent Nunu ATTENDED SLEEP STUDY (80043)By: On: 18-Jan-2017 Intent Eli Bowman CNP, CNP, Mary E DEXA SCAN AXIAL SKELETON (82761)By: On: 24-Nov-2016 Intent Donnie Gonzales MD MAMMOGRAM, SCREENING, BOTH BREAST On: 24-Nov-2016 Intent (54269)By: Donnie Gonzales MD US KIDNEY COMPLETE (05441)By: Janet On: 16-Jul-2016 Intent Donnie PROCTOR EsophagramBy: Edita Cabral MD On: 06-Feb-2016 Intent Comments: 12mm tablet X-RAY EXAM OF ESOPHAGUS (16596) - On: 04-Feb-2016 Intent Barium Swallow with 12mm tabletBy: Donnie Gonzales MD Carotid DopplerBy: Edita Cabral MD On: 16-Sep-2015 Intent Oz TD VACCINE ADULT (22366)By: Misha On: 16-Sep-2015 Intent Edita PROCTOR TDAP VACCINE >7 IM (06999)By: On: 16-Sep-2015 Intent Edita Cabral MD Pap Smear, Medicare (Q0091)By: On: 16-Sep-2015 Intent Edita Cabral MD MAMMOGRAM, SCREENING, BOTH BREAST On: 16-Sep-2015 Intent (90184)By: Edita Cabral MD Renal Artery DopplerBy: Misha PROCTOR, On: 04-Feb-2015 Intent Edita Clinton Ultrasound - RenalBy: Misha PROCTOR, On: 04-Feb-2015 Intent Edita Clinton DEXA SCAN AXIAL SKELETON (10512)By: On: 17-Jan-2015 Intent Edita Cabral MD Comments: postmenapausal MAMMOGRAM, SCREENING, BOTH BREAST On: 17-Jan-2015 Intent (87387)By: Edita Cabral MD Radiology - Shoulder - [...] with back pain- stat call results Spirometry (54041)By: Thee COLEMAN, On: 30-Apr-2014 Intent Erna Schaefer Comments: good effort and curve normal ELECTROCARDIOGRAM, COMPLETE (ECG) On: 30-Apr-2014 Intent (29297)By: Erna Kingston DO Eprescribed prescriptions (G8553)By: On: 12-Feb-2014 Intent Edita Cabral MD SPECIMEN HANDLING/TRANSPORT On: 15-Jan-2014 Intent (32734)By: Eli Bowman CNP, CNP, Mary E Eprescribed prescriptions (G8553)By: On: 11-Oct-2013 Intent Nunu Stephens LPN ADMINISTRATION OF INFLUENZA VIRUS On: 24-Jul-2013 Intent VACCINE (G0008)By: Edita Cabral MD FLU VAC, SPLIT, >3 YEARS, INTRAMUSC On: 24-Jul-2013 Intent ([id number])By: Edita Cabral MD Echo CompleteBy: Edita Cabral MD On: 27-Jun-2013 Intent Carotid DopplerBy: Edita Cabral MD On: 27-Jun-2013 Intent Oz Eprescribed prescriptions ([id number])By: On: 27-Jun-2013 Intent Teressa Molina LPN MRI - BrainBy: Eli Bowman CNP On: 16-Jun-2013 Intent Eli Bowman CNP SPECIMEN HANDLING/TRANSPORT On: 16-May-2013 Intent ([id number])By: Sue Ewing LPN Holter Monitor 24 hrsBy: Colby WATTERS, On: 28-Apr-2013 Intent Eli Mcelroy CNP ELECTROCARDIOGRAM, COMPLETE (ECG) On: 28-Apr-2013 Intent ([id number])By: Eli Bowman CNP Comments: sinus bradycardia Eli WATTERS Bio Z ([id number])By: Eli Bowman CNP E On: 28-Apr-2013 Intent Eli Bowman CNP EKG ([id number])By: Edita Cabral MD On: 28-Mar-2013 Intent Comments: see scanned document of test done to see results reviewed today with patient Eprescribed prescriptions ([id number])By: On: 28-Mar-2013 Intent Teressa Molina LPN Eprescribed prescriptions ([id number])By: On: 08-Dec-2012 Intent Nunu Stephens LPN Spirometry ([id number])By: Shilpi COLEMAN, On: 25-Nov-2012 Intent Mayda Comments: Computer not running so not able to perform test Aerosol Treatment ([id number])By: Shilpi On: 25-Nov-2012 Mayda Bailey DO Spirometry ([id number])By: Thee COLEMAN, On: 21-Nov-2012 Intent Erna Schaefer Comments: good effort and curve normal Radiology - Chest- PA and LatBy: On: 21-Nov-2012 Intent Erna Kingston DO Eprescribed prescriptions ([id number])By: On: 21-Nov-2012 Intent Makayla Dillard LPN ADMINISTRATION OF PNEUMOCOCCAL On: 31-Oct-2012 Intent VACCINE (G0009)By: Edita Cabral MD Comments: Lot #[id number]-right deltoidDose0.5mlgiven by: [facility] per fax. M PNEUM VAC ADLT/IMUMNOSPR, SBC/INTRM On: 31-Oct-2012 Intent ([id number])By: Jodi Carvalho LPN Eprescribed prescriptions ([id number])By: On: 18-Oct-2012 Intent Jesse VICKERSNJasonn L FLU VAC, SPLIT, >3 YEARS, INTRAMUSC On: 01-Jul-2012 Intent ([id number])By: Eli Bowman CNP Comments: Lot:[id number]:prefilled syringeSite: L Dltd, IMGiven by: MARISA Torres CNP, Elif ADMINISTRATION OF INFLUENZA VIRUS On: 01-Jul-2012 Intent VACCINE ([id number])By: Colby WATTERS ElifAmee Bowman CNP, Elif SPECIMEN HANDLING/TRANSPORT On: 01-Jul-2012 Intent ([id number])By: Sue Ewing LPN Solu -Medrol Injection, 125 mg On: 23-Nov-2011 Intent ([id number])By: Edita Cabral MD Comments: Lot [id number]-R hip, IMDose 125mggiven by:Teressa Radiology - ChestBy: Misha PROCTOR, On: 23-Nov-2011 Intent Edita Clinton Comments: wet read Pulse Oximetry ([id number])By: Benoit On: 23-Nov-2011 Intent AKBAR Aerosol Treatment ([id number])By: Colby On: 16-Nov-2011 Intent Eli WATTERS CNP Elif Pulse Oximetry ([id number])By: Vin, On: 16-Nov-2011 Intent Lynn Comments: 93 FLU VAC, SPLIT, >3 YEARS, INTRAMUSC On: 16-Nov-2011 Intent ([id number])By: Lynn Banuelos Comments: received at work SPECIMEN HANDLING/TRANSPORT On: 14-Sep-2011 Intent ([id number])By: Edita Cabral MD SPECIMEN HANDLING/TRANSPORT On: 26-Aug-2011 Intent ([id number])By: Sue Ewing LPN Ultrasound - LiverBy: Misha PROCTOR, On: 11-Jun-2011 Intent Edita Clinton EKG ([id number])By: Edita Cabral MD On: 16-Feb-2011 Intent MAMMOGRAM, SCREENING, BOTH BREASTS On: 13-Mar-2010 Intent ([id number])By: Edita Cabral MD MAMMOGRAM, SCREENING, BOTH BREASTS On: 06-Mar-2010 Intent ([id number])By: Edita Cabral MD MAMMOGRAM, SCREENING, BOTH BREASTS On: 13-Feb-2010 Intent ([id number])By: Edita Cabral MD Spirometry ([id number])By: Misha PROCTOR, On: 01-Oct-2009 Intent Edita Clinton ELECTROCARDIOGRAM, COMPLETE (ECG) On: 01-Oct-2009 Intent ([id number])By: Edita Cabral MD Pulse Oximetry ([id number])By: Benoit, On: 01-Oct-2009 Intent AKBAR Spirometry ([id number])By: Thee COLEMAN On: 30-Jul-2009 Intent Erna Schaefer Comments: good effort and curve normal Radiology - Chest- PA and LatBy: On: 30-Jul-2009 Intent Erna Kingston DO Pulse Oximetry ([id number])By: Vin, On: 30-Jul-2009 Intent Lynn Comments: 94%repeat 97-98 EKG ([id number])By: Erna Kingston DO On: 14-Jul-2009 Intent Comments: ekg showed normal sinus rhythym, normal axis, no acute st/t wave changes old t wave inversion noted on previous ekg Pulse Oximetry ([id number])By: Vin On: 11-Jul-2009 Intent Lynn Comments: 97% Solu -Medrol Injection, 125 mg On: 09-Jul-2009 Intent ([id number])By: Erna Kingston DO Comments: Lot #:[id number] date:mount given:125mgRoute:IM Site given:left buttockGiven by: MARIA DOLORES Cordon Aerosol Treatment ([id number])By: Thee On: 09-Jul-2009 Erna Bailey DO Pulse Oximetry ([id number])By: Thee COLEMAN On: 09-Jul-2009 Intent Erna Schaefer Comments: repeat after treatment was 96 Pulse Oximetry ([id number])By: Vin On: 09-Jul-2009 Intent Lynn Comments: 93% Spirometry (63713)By: Gildardo SOUSA, On: 25-Jan-2009 Intent Sue MAMMOGRAM, SCREENING, BOTH BREASTS On: 29-May-2008 Intent ([id number])By: Edita Cabral MD EKG ([id number])By: Edita Cabral MD On: 29-May-2008 Intent Spirometry ([id number])By: Misha PROCTOR, On: 27-Dec-2007 Intent Edita Clinton Ultrasound - ThyroidBy: Misha PROCTOR, On: 22-Mar-2007 Intent Edita Clinton MAMMOGRAM, SCREENING, BOTH BREASTS On: 22-Mar-2007 Intent ([id number])By: Edita Cabral MD MAMMOGRAM, SCREENING, BOTH BREASTS On: 22-Mar-2007 Intent ([id number])By: Edita Cabral MD ELECTROCARDIOGRAM, COMPLETE (ECG) On: 22-Mar-2007 Intent ([id number])By: Edita Cabral MD Planned Medications INJECTION, KETOROLAC [...] disease, bilateral : DISCONTINUED - POTASSIUM SERUM (54626) Indication: Active Meniere's disease, bilateral Elevated LFTs : DISCONTINUED - HEPATIC FUNCTION PANEL (57254) Indication: Elevated LFTs Diabetes mellitus type II, [...] reveiwing printed for pt to take to [facility] [place] , [ADDITIONAL REASON] Weight Gain - Note [...] in ER on 12-29 after eating at [employer] and choking on a piece of potatoe had th End: 04-Jan-2017 11:17 amee hilario then went to urgent care, told to go to ER at [facility] diagnosed with Esophagitis was given pepcid [...] occurred following a specific injury (lifting at [employer] for years but no fall). The injury [...] bathroom. [facility]: PAP smear (needs updated ), mammography (needs updated ) and colonoscopy (needs updated however patient refuse to have done bc she was hospitalized with the last one with infection for 5 days ). The patient does have durable power of assistant district attorney and living will. The patient has [...] for Tdap vaccination (Renamed from Need for gkxrjiviti-pnoldqs-bdzjvlkan (Tdap) vaccine, adult/adolescent), Goiter (Renamed from [place] [...] (240.9), Hypothyroidism(244.9) [facility] Payers [place] Insurance Lilly Toro; silvano guarantor
--- OUTSIDE RECORDS SUMMARY | 2018-11-25 14:54 | XMS RPT_ITS | Continuity of Care Document ---
:1950 Author Organization [facility] Address [address] [place] [address] Phone Care Team Providers Name Role Phone Colby JANENEEli E Unavailable Mina Baer MD Unavailable Nhung Duval Unavailable [facility], [facility] Unavailable Kasi Scott Unavailable Mariia [...] with bottles, extensive review with nurse and [facility], med list updated Status: Active Postmenopausal (Renamed from Postmenopausal status) (Z78.0, V49.81) Status: Active Pregnancies () Comments: 2 Status: Active S/P hysterectomy (Z90.710, V88.01) Comments: for endometrial hyperplasia 2015 Status: Active Shortness of breath (R06.02, 786.05) Status: Active Sleep apnea (G47.30, 780.57) Comments: needs repeat sleep study at [facility] to get back on cpap [...] Caitlin Delaney Start : 29-Jul-2018 Active Ergocalciferol 38833 UNIT Oral Capsule 1 Capsule twice weekly for 0 days Quantity: 24 {Capsule} Refills: 0 Ordered:23-Jun-2018 Colby WATTERS, Eli GONCALVESchace WATTERS, Elif Start : 23-Jun-2018 Active Gabapentin 100 MG Oral Capsule 3 (three) Capsule tid for 0 days Quantity: 180 {Capsule} Refills: 11 Ordered:22-Apr-2018 Mayda Dobbins DO Start : 22-Apr-2018 Active Comments:Oarrs reviewedDx M54.5 180 LORazepam 1 MG Oral Tablet 1 (one) Tablet Tablet 1 daily prn anxiety for 30 days Quantity: 30 {Tablet} Refills: 0 Ordered:26-Jul-2018 Robert Farzana Start : 26-Jul-2018 Active Comments:Thirtydo not fill until 07-31-18 Metoprolol Succinate ER 25 MG Oral Tablet Extended Release 24 Hour 1/2 Tablet daily for 0 days Quantity: 45 {Tablet} Refills: 3 Ordered:26-Jun-2018 Colby WATTERS, Eli Mejiasilvano WATTERS, Eli Lubin Start : 26-Jun-2018 End : 18-Jan-2018 Active Oxybutynin Chloride ER 15 MG Oral Tablet Extended Release 24 Hour one tablet daily (15 MG) Active Comments:Catrachito Pen Gap /16 31G X 5 MM Miscellaneous 1 (one) Misc Misc qd with Victoza for 0 days Quantity: 1 {Box} Refills: 3 Ordered:03-Feb-2018 Edita Cabral MD Start : 19-Jan-2018 Active ProAir HFA 108 (90 Base) MCG/ACT Inhalation Aerosol Solution 1-2 puffs Aerosol Soln every four hours, as needed for 30 days Quantity: 1 {Box} Refills: 3 Ordered:29-Jul-2018 Colby WATTERS, Eli Mejiasilvano WATTERS, Elif Start : 29-Jul-2018 Active Comments:Medication taken as needed. PROzac 40 MG Oral Capsule 2 (two) Capsule qd for 90 days Quantity: 180 {Capsule} Refills: 3 Ordered:18-Apr-2018 Colby WATTERS, Eli GONCALVESchace WATTERS Elif Start : 18-Apr-2018 Active Symbicort 80-4.5 MCG/ACT [...] days Quantity: 45 {Tablet} Refills: 1 Ordered:12-Oct-2017 Mo EMERGENCY MANAGEMENT CONSULTANTNaomi Watts Start : 13-Oct-2016 End : 12-Oct-2017 Inactive AUGMENTIN, 875-125MG (Oral Tablet) 1 (one) Tablet bid for 14 days Quantity: 28 {Tablet} Refills: 0 Ordered:06-Jan-2016 Lisamitcha INVESTMENT COUNSELOR, Eli Mejiaa INVESTMENT COUNSELOR, Elif Start : 06-Jan-2016 End : 20-Jan-2016 Inactive AZITHROMYCIN, 250MG (Oral Tablet) 2 (two) Tablet today then 1 qd for 4 days for 0 days Quantity: 6 {Tablet} Refills: 0 Ordered:08-Dec-2012 Nunu Stephens LPN Start : 21-Nov-2012 End : 08-Dec-2012 Inactive BACTRIM DS, 800-160MG (Oral Tablet) 1 Tablet bid for 7 days Quantity: 14 {Tablet} Refills: 0 Ordered:16-May-2013 José Miguela INVESTMENT COUNSELOR, Eli Mejiaa INVESTMENT COUNSELOR, Elif Start : 16-May-2013 End : 23-May-2013 Inactive Cheratussin AC 100-10 MG/5ML Oral Syrup 1 Teaspoon(s) qhs prn cough for 0 days Quantity: 8 {Fluid_Ounce} Refills: 0 Ordered:16-Jun-2016 Priya Gillette Start : 12-Mar-2016 End : 16-Jun-2016 Inactive Comments:eight CIPRO, 500MG (Oral Tablet) 1 Tablet bid for 7 days Quantity: 14 {Tablet} Refills: 0 Ordered:15-Jan-2014 José Miguela INVESTMENT COUNSELOR, Eli Mejiaa INVESTMENT COUNSELOR, Elif Start : 15-Jan-2014 End : 22-Jan-2014 [...] days Quantity: 30 {Capsule_ER_24HR} Refills: 3 Ordered:12-Feb-2014 AKABR South Start : 07-Nov-2012 End : 12-Feb-2014 Inactive Drisdol 73568 UNIT Oral Capsule 1 (one) Capsule once week for 90 days Quantity: 12 {Capsule} Refills: 1 Ordered:03-Jan-2018 SlaNaomi fine LPN Start : 10-Aug-2017 End : 03-Jan-2018 Inactive DULERA, 100-5MCG/ACT (Inhalation Aerosol) 1 Aerosol bid next 2 weeks for 0 days Quantity: 1 {Aerosol} Refills: 0 Ordered:07-Nov-2012 AKBAR South Start : 18-Oct-2012 End : 07-Nov-2012 Inactive ENABLEX, 7.5MG (Oral Tablet Extended Release 24 Hour) 1 (one) Tablet ER 24HR qd for 0 days Quantity: 30 {Tablet_ER_24HR} Refills: 6 Ordered:03-Aug-2011 Long EMERGENCY MANAGEMENT CONSULTANT, Teressa L Start : 11-Jun-2011 End : 03-Aug-2011 Inactive [...] Start : 21-Apr-2010 End : 08-Oct-2010 Inactive Lyrica 50 MG Oral Capsule 1 (one) Capsule tid for 0 days Quantity: 60 {Capsule} Refills: 3 Ordered:22-Mar-2018 Nunu Root Start : 18-Jan-2018 End : 22-Mar-2018 Inactive Comments:M79.2 Neruopathic pain Oarrs run MACRODANTIN, 100MG (Oral Capsule) 1 Capsule bid for 10 days Quantity: 20 {Capsule} Refills: 0 Ordered:26-Aug-2011 Colby WATTERS Eli Renata WATTERS, Elif Start : 26-Aug-2011 End : 05-Sep-2011 Inactive Maxzide 75-50 MG Oral Tablet 1 (one) Tablet qd for 90 days Quantity: 90 {Tablet} Refills: 0 Ordered:23-Apr-2017 Colby WATTERS Eli Renata WATTERS, Elif Start : 23-Apr-2017 [...] : 29-Jul-2010 End : 30-Sep-2010 Inactive Nystatin 155598 UNIT/ML Mouth/Throat Suspension 4-6 Milliliter swish and [...] : 12-Dec-2015 End : 16-Jun-2016 Inactive Comments:per [facility] Topamax 100 MG Oral Tablet 1 [...] 03-Jan-2018 Inactive Comments:1 rambo as directed ZOSTAVAX, 99112TZU/0.65ML (Subcutaneous Solution Reconstituted) 1 For Solution once [...] Quantity: 60 {Tablet} Refills: 6 Ordered:06-Sep-2017 Phyllis Seaz Start : 06-Sep-2017 End : 18-Jan-2018 Discontinued [...] days Quantity: 30 {Capsule} Refills: 0 Ordered:04-Jan-2017 Colby WATTERS, Eli Yanez CNP, Elif Start : 04-Jan-2017 End : 04-Jan-2017 Discontinued Comments:[facility] FLEXERIL, 10MG (Oral Tablet) 1 (one) [...] : 13-Nov-2013 End : 13-Nov-2013 Discontinued Comments:ID [id number] Medrol 4 MG Oral Tablet Therapy Pack [...] days Quantity: 15 {Tablet} Refills: 0 Ordered:18-Jan-2017 Namoi Hassan LPN Start : 16-Jul-2016 End : [...] days Quantity: 60 {Tablet} Refills: 0 Ordered:18-Jan-2018 Phyllis Saez Start : 12-Oct-2017 End : 18-Jan-2018 Discontinued Vitamin D3 5000 UNIT Oral Tablet 1 (one) Tablet daily for 0 days Quantity: 30 {Tablet} Refills: 0 Ordered:27-Jul-2017 Naomi Hassan LPN Start : 18-Jan-2017 End : 27-Jul-2017 Discontinued Vitamin D3 75816 UNIT Oral Tablet 1 (one) Tablet Tablet once a week for 60 days Quantity: 8 {Tablet} Refills: 0 Ordered:04-Jan-2017 Slarb EMERGENCY MANAGEMENT CONSULTANT, Naomi Start : 24-Nov-2016 End : 04-Jan-2017 Discontinued ZETIA, 10MG (Oral Tablet) 1 qd for 0 days Refills: 0 Ordered:26-Sep-2007 AKBAR [place] End : 26-Sep-2007 Discontinued Allergies and Adverse [...] for Tdap vaccination (Renamed from Need for gvrdyqlezu-innbnrw-vnhrxwmdl (Tdap) vaccine, adult/adolescent) (Z23, V06.1) Status: Inactive as of 12-Dec-2015 Other and unspecified hyperlipidemia (E78.5, 272.4) Status: Inactive as of 24-Jul-2013 Pharyngitis, acute (J02.9, 462) Comments: rapid strep negativeCulture Status: Inactive as of 20-Jan-2016 Pneumonitis (J18.9, 486) Status: Inactive as of 14-May-2014 Pre-operative exam (Renamed from Preop examination) (Z01.818, V72.84) Comments: Getting 4 tooth out 07/17 next week, [facility].HAs MARTHA has CPAP but not been using it for 2 years, need to see Bavis for retitration.Cr : 1.77 , repeat labs, US kidneyDM type 2: HBa1c 5.4 BMI:(obesit y increase the risk of wound infection, PE.Not malnourishedLabs:CBCCMPPT/INRtype and screen gel(04314)EK06/10/16: no acute changesHas good social support and [...] around the house.Denies previous history of anesthesia problems.(Samiamee rctomy 22 june 2016, no compliaction)Deniies anyone [...] under good control Patient to use Mucinex pnkd-vpy-ypgtzyi which helped her. Status: Inactive as of [...] Completed Comments: 2000 Tubal ligation 1963 Completed [facility] Left endolymphatic sac Completed decompression with shunt and middle ear infusion with decadron 03/05 Date Value Details 01-Aug-2018 CTA Chest W/WO Contrast Result: Comments: See Note; NOTES: [facility] Imaging Services [address] [place] [address] CTA Chest W/WO Contrast MR#: [id number] Acct: [id number] Name: ELIZABETH TORO Rep #: [id number] : 1950 F 67 From: Hardeep Calix MD PCP: Eli Bowman NP Status: REG CLI Study: CTA Chest W/WO Contrast Date of Exam: 08/01/18 Exam# [id number] Ordering Dr: Eli Bowman STUDY: CTA CHEST/T [...] Service support , CC: Eli Bowman NP Director Of Communications: Signed 29-Jul-2018 Chest PA and Lateral Result: Comments: See Note; NOTES: [facility] Imaging Services [address] [place] [address] Chest PA and Lateral MR#: [id number] Acct: [id number] Name: ELIZABETH TORO Rep #: [id number] : 1950 F 67 From: Cami Klein MD PCP: Eli Bowman NP Status: REG CLI Study: Chest PA and Lateral Date of Exam: 07/29/18 Exam# [id number] Ordering Dr: Eli Bowman STUDY: X-RAY CHEST [...] Service support , CC: Eli Bowman NP Director Of Communications: Signed 21-Apr-2018 Downtime Report Result: Comments: See Note; NOTES: [facility] Medical Records Department [address] [place] [address] Downtime Report MR#: [id number] Acct: [id number] Name: ELIZABETH TORO Rep #: : 1950 67 From: Alon Klein PCP: Eli Bowman NP Status: REG RCR This patient was seen during an EMR downtime April 04, 2018 - April 11, 2018. This patient may have a combination of p aper and electronic documentation or all paper documentation. All documentation is viewable within the e-chart portion of [facility] for each patient visit. 12-Apr-2018 NCS and/or EMG Patient Result: Comments: See Note; NOTES: [facility] Pulmonary Services/Neurology [address] [place] [address] MR#: [id number] Acct: [id number] Name: ELIZABETH TORO Rep #: [id number] : 1950 67 From: Kal Hernandez MD Referring Dr: Eli Bowman NP Status: REG CLI Ordering Dr: Date: Location: [facility] Sex: F C NCS and/or EMG [...] ____ Kal Hernandez MD CC: Eli Bowman CENTER HUMAN RESOURCES MANAGER; Kal Hernandez MD Date Dictated: 04/12/18949 Date Transcribed: 04/12/18949 Director Of Communications: MOHIT Signed 01-Feb-2018 PT D/C Summary (1) Result: Comments: See Note; NOTES: [facility] [address] [place] [address]. [address] [place] [id number] Fax REHABILITATION SERVICES DISCHAR SUMMARY MR#: [id number] Acct: [id number] Name: ELIZABETH TORO Rep #: [id number] : 1950 67 From: Cristopher Francis PT, ATC Referring DrJose: Mayda Dobbins DO Status: REG R Insurance: [facility] PART A B PHYSICIAN MUTUAL INS CO HP - PT D/C Summary It has been my pleasure to treat ELIZABETH TORO under orders from DR.KFEARO Jenny for the diagnosis of LBP with radiculopathy [...] please feel free to call me at [phone]. Thank you for the referral of this patient. Sincerely, Cristopher Francis PT, <Electronically signed by Andrea Francis PT, ATC> 02/01/18 0823 CC: Eli Bowman CENTER HUMAN RESOURCES MANAGER; Mayda Dobbins DO [facility] Signed 30-Dec-2017 Inital Evaluation (1) - PT Result: Comments: See Note; NOTES: [facility] [facility] [place] [address] Fax REHABILITATION SERVICES INITIAL EVALUATION MR#: [id number] Acct: [id number] Name: ELIZABETH TORO Rep #: [id number] : 1950 67 From: Cristopher Francis PT, ATC Referring DrJose: Mayda Dobbins DO Status: REG RCR Insurance: [employer] PART A B PHYSICIAN M[employer] CO Patient's Visit Information ELIZABETH TORO is a 67 year old F referred to Physical Therapy by Mayda Dobbins DR.KFEARO with a diagnosis of LBP with radiculop [...] to be FAXED BACK to us at [phone] for Medicare purposes. Please let me know if there are questions or concerns regarding this plan of care. Physician Signature: Date: <Electronically signed by Cristopher Francis PT, ATC> 12/30/17 1056 CC: Eli Bowman NP; Mayda Dobbins DO DT: 0 12/30/17 [facility] Signed For Medicare only, by signing this I certify the plan of care. Physicians Signature Date 08-Oct-2017 Operative Report Result: Comments: See Note; NOTES: [facility] Medical Records Department [address] [place] [address] Operative Report 10/08/172017 MR#: [id number] Acct: [id number] Name: XAVIER TORO Rep #: [id number] : 1950 67 From: Oscar Winston MD PCP: Eli Bowman NP Status: REG [facility] Y Location: [place] [address] Problem List (1) Intrinsic (urethral) sphincter deficiency [...] Discharge Instruction Result: Comments: See Note; NOTES: [facility] Medical Records Department [address] [place] [address] Instructions for Home/Discharge Instructions 10/08/171950 MR#: [id number] Acct: [id number] Name: ELIZABETH TORO Rep #: [id number] : 1950 67 From: Oscar Winston MD PCP: Eli Bowman NP Status: REG [facility] Discharge Diet: Light diet - advance as tolerated Discharge Activity: M ay not drive while taking narcotic pain medications. Call your doctor if your incision/area has: Continuous Slow Oozing, Sudden Increased Bleeding Suture Line Care: Avoid Pulling/Pushing, Avoid Pinching /Bending Allergies/Adverse Reactions: Allergies succinylcholine Allergy (Verified 10/04/17 15:08) MUSCLE CONTRACTED Medications to take at [...] and Lateral Result: Comments: See Note; NOTES: [facility] Imaging Services [address] [place] [address] Chest PA and Lateral MR#: [id number] Acct: [id number] Name: JAYYELIZABETH A Rep #: [id number] : 1950 F 67 From: Yury Arthur MD PCP: Eli Bowman Status: REG CLI Study: Chest PA and Lateral Date of Exam: 08/30/17 Exam# [id number] Ordering Dr: Mayda Dobbins DO STUDY: X-RAY [...] , CC: Eli Bowman; Mayda Dobbins DO Director Of Communications: Signed 20-Jul-2017 L/S Spine Min 4 Views Result: Comments: See Note; NOTES: [facility] Imaging Services [address] [place] [address] L/S Spine Min 4 Views MR#: [id number] Acct: [id number] Name: ELIZABETH TORO Rep #: [id number] : 1950 F 66 From: Dionte Lujan DO PCP: Eli Bowman Status: REG CLI Study: L/S Spine Min 4 Views Date of Exam: 07/20/17 Exam# [id number] Ordering Dr: Edita Cabral MD STUDY: X-RAY [...] Fax CC: Eli Bowman; Edita Cabral MD Director Of Communications: Signed 20-Jul-2017 Shoulder min 2 Views Result: Comments: See Note; NOTES: [facility] Imaging Services [address] [place] [address] Shoulder min 2 Views MR#: [id number] Acct: [id number] Name: ELIZABETH TORO Rep #: [id number] : 1950 F 66 From: Dionte Lujan DO PCP: Eli Bowman Status: REG CLI Study: Shoulder min 2 Views Date of Exam: 07/20/17 Exam# [id number] Ordering Dr: Edita Cabral MD STUDY: X-RAY - RIGHT [facility] REASON FOR EXAM: Female, 66 years [...] , CC: Eli Bowman; Edita Cabral MD Director Of Communications: Signed 11-May-2017 PT D/C Summary (1) Result: Comments: See Note; NOTES: [facility] [address] [place] [address] Fax REHABILITATION SERVICES DISCHAR GE SUMMARY MR#: [id number] Acct: [id number] Name: ELIZABETH TORO Rep #: [id number] : 1950 66 From: Naomi COMER Referring [...] please feel free to call me at [phone]. Thank you for the referral of this patient. Sincerely, Naomi Osorio <Electronically signed by Naomi Osorio MPT> 09/17 0919 CC: Nunu Root; Eli Bowman Signed 14-Apr-2017 Inital Evaluation (1) - PT Result: Comments: See Note; NOTES: [facility] [address] [facility] [place] [address] Fax REHABILITATION SERVICES INITIAL EVALUATION MR#: [id number] Acct: [id number] Name: ELIZABETH TORO Rep #: [id number] : 1950 66 From: Naomi COMER Referring [...] Frame: 4-6 Weeks - Rehabilitation Potential Rehabilitation [place] blevins: Good - Anticipated Interventions Therapeutic Exercise to [...] to be FAXED BACK to us at [phone] for Medicare purposes. Please let me know if there are questions or concerns regarding this plan of care. Physician Signature: Date: <Electronically signed by Naomi Osorio MPT> 04/14/17 1906 CC: Nunu Root; Eli Bowman Signed For Medicare only, by sign ing this I certify the plan of care. Physicians Signature Date 08-Apr-2017 Knee 4 or More Views Result: Comments: See Note; NOTES: [facility] Imaging Services [address] [place] [address] Verdana 4d Knee 4 or More Views MR#: [id number] Acct: [id number] Name: ELIZABETH TORO p #: [id number] : 1950 F 66 From: Chalino Mancia MD PCP: Eli Bowman Status: REG CLI Study: Knee 4 or More Views Date of Exam: 04/08/17 Exam# [id number] Ordering Dr: Mayda oDbbins DO STUDY: X-RAY - RIGHT KNEE REASON [...] knee. No fracture Electronically Signed: Chalino Mancia, 17/04/09 at 6:58 EDT Tel , Service support , CC: Eli Bowman; Mayda Dobbins DO Director Of Communications: Signed 08-Apr-2017 Knee 4 or More Views Result: Comments: See Note; NOTES: [facility] Imaging Services [address] [place] [address] Verdana 4d Knee 4 or More Views MR#: [id number] Acct: [id number] Name: ELIZABETH TORO Viridiana p #: [id number] : 1950 F 66 From: Chalino Mancia MD PCP: Eli Bowman Status: REG CLI Study: Knee 4 or More Views Date of Exam: 04/08/17 Exam# [id number] Ordering Dr: Mayda Dobbins DO STUDY: X-RAY [...] , CC: Eli Bowman; Mayda Dobbins DO Director Of Communications: Signed 15-Mar-2017 Sleep Study Report Result: Comments: See Note; NOTES: [facility] SLEEP DISORDER [facility] [address] [place] [address] Polysomnography with NCPAP MR#: [id number] Acct: [id number] Name: JAYYELIZABETH A Re p #: [id number] : 1950 66 From: Kal Hernandez MD [...] version). Please note that a reference to [facility] AHI in this report is consistent with the current Hypopnea definition according to Medicare Criteria and an AASM AHI reference is consistent with the current Hypopnea defini tion according to the AASM criteria and is recognized by [facility] as the RDI. PROCEDURE: The study was attended continuously by a police service technician. Monitored parameters included left and right [...] body mass index of 30.9 and an [place] Sleepiness Scale score of 6. There is [...] requested. Kal Hernandez MD T: NTS JOB: [id number] CC: Kal Hernandez MD 1151 1151 03/15/17 1451 <Electronically signed by Kal Hernandez MD> Date Kal Hernandez MD Co-signature (if applicable) Date Signed 05-Jan-2017 Esophagus Only Result: Comments: See Note; NOTES: [facility] Imaging Services [address] [place] [address] Verdana 4d Esophagus Only MR#: [id number] Acct: [id number] Name: ELIZABETH TORO Rep #: [id number] : 1950 F 66 From: Gabriela Ragland MD PCP: Eli Bowman Status: REG CLI Study: Esophagus Only Date of Exam: 01/05/17 Exam# [id number] Ordering Dr: Sofia Bragg MD STUDY: AIR-CONTRAST [...] at 8:43 EST Tel , Service support [phone], CC: Eli Bowman; Sofia Bragg MD Director Of Communications: Signed 29-Dec-2016 Emergency Department Summary Result: Comments: See Note; NOTES: [facility] Medical Records Department [address] [place] [address] Emergency Department Summary MR#: [id number] Acct: [id number] Name: XAVIER TORO Rep #: [id number] : 1950 66 From: Sofia Bragg MD PCP: Eli Bowman Status: DEP ER DATE OF SERVICE: 12/29/2016 CHIEF COMPLAINT: Sore throat. HISTORY OF PRESENT ILLNESS: This is a 66-year- old woman that states she was at [employer], choked on a piece of potato 5 [...] the case with Dr. Pena who is international logistics analyst for GI and he suggested ordering an [...] get a prescription for Pepcid. DIAGNOSIS: Esophagitis. Sofia Bragg MD C C: Eli Pena MD T: NTS JOB: [id number] 12/29/16 <Electronically signed by Sofia Bragg MD> Date Sofia Bragg MD Cosigner Signature (If Indicated): Date CC: Eli Bowman; Junior Pena Date Dictated: 12/29/161828 Date Transcribed: 12/29/161828 Director Of Communications: Signed 29-Dec-2016 Discharge Instruction Result: Comments: See Note; NOTES: [facility] Medical Records Department [address] [place] [address] Discharge Instruction 12/29/161829 MR#: [id number] Acct: [id number] Name: ELIZABETH TORO Rep #: [id number] : 1950 66 From: Sofia Bragg MD [...] your Primary Care Provider. Call [facility] ([phone] ) or report to the closest Emergency Room. Call 911 if necessary. 12/29/161832 <Electronically signed by Sofia Bragg MD> Date Sofia elliott MD Cosigner Signature (If Indicated): Date CC: Eli Bowman 07-Aug-2016 Sleep Study Report Result: Comments: See Note; NOTES: [facility] [address] [place] [address] Split Night Sleep Study MR#: [id number] Acct: [id number] Name: ELIZABETH TORO Rep #: [id number] : 1950 65 From: Kal Hernandez MD PCP: Donnei Gonzales Status: REG CLI Ordering DrJose: Donnie Gonzales Date: 08/03/16 Sex: F C DATE OF SERVICE: 08/03/2016 SCORING RULES: Respiratory ev ents were acquired and scored in accordance with the Recommended Standards and Specifications as outlined in the AASM Manual for the Scoring of Sleep and Associated Events ( most recent version). Please note that a reference to [facility] AHI in this report is consistent with the current Hypopnea definition according to Medicare Criteria and an [facility] AHI reference is consistent with the current Hypopnea defin ition according to the AASM criteria and is recognized by [facility] as the RDI. PROCEDURE: The study was attended continuously by a police service technician. Monitored parameters included left and right [...] a body mass index of 29.3 and [place] Sleepiness Scale score of 2. There is [...] humidity. Kal Hernandez MD T: NTS JOB: [id number] CC : Kal Hernandez MD 1144 1144 08/07/16 0959 <Electronically signed by Kal Hernandez MD> Date Kal Hernandez MD Co-signature (if applicable) Date Signed -Aug-2016 Kidney and Bladder Result: Comments: See Note; NOTES: [facility] Imaging Services [address] [place] [address] Verdana 4d Kidney and Bladder MR#: [id number] Acct: [id number] Name: ELIZABETH TORO Rep #: [id number] : 1950 F 65 From: Anibal Lan MD PCP: Donnie Gonzales Status: [facility] Study: Kidney and Bladder Date of Exam: 08/04/16 Exam# [id number] Ordering Dr: Beto Henry MD UDY: RENAL [...] Anibal Lan MD at 11:16 EDT Tel [phone], Service support [phone], CC: Soumya Henry M.D.; Donnie Gonzales Director Of Communications: Signed 23-Jun-2016 Operative Report Result: Comments: See Note; NOTES: [facility] Medical Records Department [address] [place] [address] Operative Report MR#: [id number] Acct: [id number] Name: ELIZABETH TORO Rep #: [id number] : 1950 65 From: Gm Brush MD PCP: Donnie Gonzales Status: REG [facility] DATE OF SERVICE: 06/22/2016 DATE OF PROCEDURE: June 22, 2016 SURGEON: Gm Brush M.D. MINING HELPER: Lia jacinto. ANESTHESIA: Gem Shelby and Frank [...] PROCEDURE: The patient was taken the opera ting room where after induction of general anesthesia, [...] ovaries. Gm Brush MD T: NTS JOB: [id number] 06/23/16 0725 <Electronically signed by Gm Brush MD> Date __ Gm Brush MD Cosigner Signature (If Indicated): Date CC: Gm Brush MD; Donnie Nolasco Dicta nahed: 06/22/161102 Date Transcribed: 06/22/161102 Director Of Communications: Signed 22-Jun-2016 Discharge Instruction Result: Comments: See Note; NOTES: [facility] Medical Records Department [address] [place] [address] Instructions for Home/Discharge Instructions 06/22/16 0904 MR#: [id number] Acct: [id number] Name: ELIZABETH TORO Rep #: [id number] : 1950 65 From: Gm Brsuh MD PCP: Donnie Gonzales Status[place] [facility] [place] Diet: No Restrictions Discharge Activity: Return [...] CC: Donnie Gonzales 10-Jun-2016 ELECTROCARDIOGRAM, COMPLETE (ECG) (51355) Result: [MEASUREMENTS ANALYSIS] Date of Test: 06/10/2016 09:39:53; Heart Rate: 58; NC Interval: 208; QRS: 86; QT Interval: 480; Corrected QT Interval (QTc): 477; P Wave [place]: 45; QRS Wave [place]: 11; T Wave [place]: 23; Blood Pressure: 112/70 [ECG DIAGNOSTIC STATEMENTS] Date of Test: 06/10/2016 09:39:53; Summary: Sinus Bradycardia - Negative T-waves -May be normal - possible Anteroseptal ischemia. BORDERLINE 13-Apr-2016 Operative Report Result: Comments: See Note; NOTES: [facility] Medical Records Department [address] [place] [address] Operative Report MR#: [id number] Acct: [id number] Name: XAVIER TORO LEILANI Schaefer Rep #: [id number] : 1950 65 From: Gm Brush MD PCP: Edita Cabral MD Status: [facility] DATE OF SERVICE: 04/13/2016 DATE OF PROCEDURE: [...] curettings. Gm Brush MD T: NTS JOB: [id number] 04/13/16 1838 <Electronically signed by Gm Brush MD> Date Gm Brush MD Cosigner Signature (If Indicated): Date CC: Edita Young; Gm Brush MD Date Dictated: 04/13/16 1031 Date Transcribed: 04/13/16 103 Director Of Communications: Signed 13-Apr-2016 Discharge Instruction Result: Comments: See Note; NOTES: [facility] Medical Records Department [address] [place] [address] Instructions for Home/Discharge Instructions 04/13/16 1003 MR#: [id number] Acct: [id number] Name: ELIZABETH TORO Rep #: [id number] : 1950 65 From: Gm Brush MD PCP: Edita Cabral MD Status: [place] [facility] Discharge Diet: No Restrictions Discharge Activity: R [...] mg PO DAILY 04/10/16 Hydrocodone Bitart/Apap 5-325 [[place] 5MG-325MG] 1 tablet PO Q4H PRN PRN #10 tablet 04/13/16 The followi ng prescriptions were given: Hydrocodone Bitart/Apap 5-325 [[place] 5MG-325MG] 1 tablet PO Q4H PRN PRN #10 tablet PRN Reason: Mod-Severe Pain () Please Follow Up With: Gm Brush When: 2-3 jason bowers 04/13/16 1004 <Electronically signed by Gm Brush MD> Date Gm Brush MD CC: Edita Cabral MD 22-Mar-2016 Emergency Department Summary Result: Comments: See Note; NOTES: [facility] Medical Records Department [address] [place] [address] Emergency Department Summary MR#: [id number] Acct: [id number] Name: ELIZABETH TORO Rep #: [id number] : 1950 65 From: aNndo Fuller MD PCP: Edita Cabral MD Status: [...] bleeding. 2. Chronic renal insufficiency. DISPOSITION: Home. Nando Fuller MD C C: Edita Brush MD T: NTS JOB: [id number] 03/22/16 0247 <Electronically signed by Nando Fuller MD&a mp;#62; Date Nando Fuller MD Cosigner Signature (If Indicated): Date CC: Edita Cabral MD; Otilia Brush MD Date Dictated: 03/21/1650 Date Transcribed: 03/21/1650 Director Of Communications: Signed 21-Mar-2016 Discharge Instruction Result: Comments: See Note; NOTES: [facility] Medical Records Department [address] [place] [address] Discharge Instruction 03/21/168 MR#: [id number] Acct: [id number] Name: ELIZABETH TORO Rep #: [id number] : 1950 65 From: Nando Fuller MD [...] ems, contact your doctor. Call [facility] ([phone]) or report to the closest Emergency Room. Call 911 if necessary. 03/21/16 0049 <Electronically signed by Nando Fuller MD&#6 2; Date Nando Fuller MD Cosigner Signature (If Indicated): Date CC: Edita Cabral MD 20-Mar-2016 Transvaginal Non- Result: Comments: See Note; NOTES: [facility] Imaging Services [address] [place] [address] Verdana 4d Transvaginal Non- MR#: [id number] Acct: [id number] Name: ELIZABETH DIAZ Rep #: [id number] : 1950 F 65 From: Jose Fu PCP: Edita Cabral MD Status: REG ER Study: Transvaginal Non- Date of Exam: 03/20/16 Exam# [id number] Ordering Dr: Oz Fuller MD STUDY: ULTRASOUND [...] DO at 0:42 EDT , Service support [phone], Fax CC: Edita Cabral MD; Nando Fuller MD Director Of Communications: Signed 25-Feb-2016 Esophagus Only Result: Comments: See Note; NOTES: [facility] Imaging Services [address] [place] [address] Verdana 4d Esophagus Only MR#: [id number] Acct: [id number] Name: XAVIER TORO Rep #: [id number] : 1950 F 65 From: Anibal Lan MD PCP: Edita Cabral MD Status: REG CLI Study: Esophagus Only Date of Exam: 02/25/16 Exam# [id number] Ordering Dr: Donnie Gonzales STUDY: X-RAY - [...] Anibal Lan MD at 10:35 EDT Tel [phone], Service support [phone], Fax RAD/Esophagus Only IMPRESSION: Normal plain film x-ray examination (barium swallow) of the esophagus. Electronically Signed: Anibal Lan MD at 10: 35 EDT Tel [phone], Service support [phone], CC: Edita Cabral MD; Donnie Gonzales Director Of Communications: Signed 25-Feb-2016 Esophagus Only Result: Comments: See Note; NOTES: [facility] Imaging Services [address] [place] [address] Verdana 4d Esophagus Only MR#: [id number] Acct: [id number] Name: XAVIER TORO Rep #: [id number] : 1950 F 65 From: Anibal Lan MD PCP: Edita Cabral MD Status: REG CLI Study: Esophagus Only Date of Exam: 02/25/16 Exam# [id number] Ordering Dr: Donnie Gonzales ADDENDUM by Anibal Lan MD on 03/31/16 at 0747 ADDENDUM This is an addendum report for PQRS purposes. 19 images were obtained. Electronically Signed: Anibal Lan MD at 7:47 EDT Tel [phone], Service support [phone], 03/31/16 0747 Date cc: Edita Cabral MD; [...] Anibal Lan MD at 10:35 EDT Tel [phone], Service support [phone], RAD/Esophagus Only IMPRESSION: Normal plain film x-ray examination (barium swallow) of the esophagus. Electronically Signed: Anibal Lan MD at 10:35 EDT Tel [phone], Service support [phone], CC: Edita Cabral MD; Donnie Gonzales Director Of Communications: Signed 10-Dec-2015 12 Lead Electrocardiogram Result: Comments: See Note; NOTES: [facility] Cardiovascular Services [address] [place] [address] 12 Lead EKG 12/08/15 1551 MR#: [id number] Acct: [id number] Name: ELIZABETH DASILVA Rep #: [id number] : 1950 65 From: Francisco Muller MD [...] ECG Confirmed by FRANCISCO MULLER MD ([id number]), graphic editor ZUNILDA KLEIN (56) on 12/10/2015 9:33:10 AM Referred By: ROMEL Confirmed By:FRANCISCO MULLER MD 12/10/15 0933 Date ___ Francisco Muller MD CC: Edita Cabral MD Date Dictated: 12/08/151550 Date Transcribed: 12/08/151550 Director Of Communications: Signed 10-Dec-2015 Emergency Department Summary Result: Comments: See Note; NOTES: [facility] Medical Records Department [address] [place] [address] Emergency Department Summary MR#: [id number] Acct: [id number] Name: ELIZABETH TORO Rep #: [id number] : 1950 65 From: Sisi Severino MD [...] Dominguez Galeano C: Edita Cabral MD T: [facility] JOB: [id number] 12/10/15 0232 <Electronically deepti d by Sisi Severino MD> Date Sisi Severino MD Cosigner Signature (If Indicated): Date Dominguez C: Edita Cabral MD Date Dictated: 12/08/151705 Date Transcribed: 12/08/151705 Director Of Communications: Signed 08-Dec-2015 Discharge Instruction Result: Comments: See Note; NOTES: [facility] Medical Records Department [address] [place] [address] Discharge Instruction 12/08/15 1659 MR#: [id number] Acct: [id number] Name: ELIZABETH TORO Rep #: [id number] : 1950 65 From: Sisi Severino MD [...] problems, contact your doctor. Call [facility] ([phone]) or report to the closest Emergency Room. Call 911 if necessary. 12/08/15 1701 <Electronically signed by Sisi young MD> Date Sisi Severino MD Cosigner Signature (If Indicated): Date CC: Edita Cabral MD 08-Dec-2015 Chest PA and Lateral Result: Comments: See Note; NOTES: [facility] Imaging Services [address] [place] [address] Verdana 4d Chest PA and Lateral MR#: [id number] Acct: [id number] Name: ELIZABETH TORO Rep #: [id number] : 1950 F 65 From: Malaika Diana MD PCP: Edita Cabral MD Status: REG ER Study: Chest PA and Lateral Date of Exam: 12/08/15 Exam# [id number] Ordering Dr: Sisi Severino MD STUDY: X-RAY [...] MD at 16:41 EST , Service support [phone], RAD/Chest PA and Lateral IMPRESSION: No acute disease is demonstrated. Electronic ally Signed: Malaika Diana MD at 16:41 EST , Service support [phone], CC: Edita Cabral MD; Sisi Severino MD Director Of Communications: Signed 16-Sep-2015 EKG (95166) Result: [MEASUREMENTS ANALYSIS] Date of Test: 09/16/2015 09:46:37; Heart Rate: 74; NC Interval: 192; QRS: 88; QT Interval: 406; Corrected QT Interval (QTc): 430; P Wave [place]: 28; QRS Wave [place]: -3; T Wave [place]: -1; Blood Pressure: 104/60 [ECG DIAGNOSTIC STATEMENTS] Date of Test: 09/16/2015 09:46:37; Summary: Sinus Rhythm Low voltage in precordial leads. - Nonspecific T-abnormality. ABNORMAL 11-Feb-2015 Kidney and Bladder Result: Comments: See Note; NOTES: [facility] Imaging Services [address] [place] [address] Ultrasound Report MR#: [id number] Acct: [id number] Name: ELIZABETH TORO Rep #: [id number] : 1950 F 64 From: Mina Cade MD PCP: Edita Cabral MD Status: REG CLI Study: Kidney and Bladder Date of Exam: 02/11/15 Exam# [id number] Ordering Dr: Edita Cabral MD STUDY: RE [...] MD at 23:11 EDT , Service support [phone], CC: Edita Cabral MD Director Of Communications: Signed 24-Jul-2014 PT Discharge Summary Result: Comments: See Note; NOTES: [facility] [address] [place] [address]. [address] [place], [place] [address] Fax REHABILITATION SERVICES DISCHARGE SUMMARY MR#: [id number] Acct: [id number] Name: ELIZABETH TORO Rep #: [id number] : 1950 63 From: Naomi Osorio Referring [...] clinic. Naomi Osorio, PT T: NTS JOB: [id number] <Electronically signed by Faraz Osorio > 07/24/14 0652 CC: Signed 15-Jun-2014 PT Discharge Summary Result: Comments: See Note; NOTES: [facility] [address] [place] [address]. [address] [place] [address] Fax REHABILITATION SERVICES DISCHARGE SUMMARY MR#: [id number] Acct: [id number] Name: ELIZABETH TORO Rep #: [id number] : 1950 63 From: Naomi Osorio Referring DrJose: Edita Cabral MD Status: REG RCR Eval Date: Disch arg Date: DATE OF SERVICE: REFERRING PHYSICIAN: Dr. [...] our clinic. Sincerely, Naomi Osorio, PT T: NTS JOB: [id number] <Electronically signed by Naomi Osorio & amp;#62; 06/15/14 1410 CC: Signed 25-May-2014 Inital Evaluation - PT Result: Comments: See Note; NOTES: [facility] [address] [place] [address]. [address] [place] [address] Fax REHABILITATION SERVICES INITIAL EVALUATION MR#: [id number] Acct: [id number] Name: ELIZABETH TORO Rep #: [id number] : 1950 63 From: Naomi Osorio Referring DrJose: Edita Cabral MD Status: REG RCR Insurance: [facility] Eval Date: PHYSICIAN MUTUAL [...] anterolateral shoulder. She is right-handed. 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 Received the shraddha vasquez's consent to treat. I plan on seeing the patient 2-3 times per week for 4-6 weeks for left shoulder passive range of motion, active assistive range of motion, active range of motion, left should er strength, postural exercises with a home exercise program and modalities as needed. Naomi Osorio, PT T: NTS JOB: [id number] <Electronically signed by Naomi Osorio > 4 1241 CC: Signed For Medicare only, by signing this I certify the plan of care. Physicians Signature Date 23-May-2014 Nuclear Stress Test - Chemical Result: Comments: See Note; NOTES: [facility] Imaging Services [address] [place] [address] Nuclear Medicine Report MR#: [id number] Acct: [id number] Name: ELIZABETH TORO Rep #: [id number] : 1950 F 63 From: Tano Nielsen MD PCP: Edita Cabral MD Status: REG CLI Study: Nuclear Stress Test - Chemical Date of Exam: 05/23/14 Exam# [id number] Ordering Dr: Álvaro Cabral MD EXERCISE TOLERANCE [...] LVEF of 61%. CC: Edita Cabral MD Director Of Communications: PHILLIPS Signed 14-May-2014 Shoulder min 2 Views Result: Comments: See Note; NOTES: [facility] Imaging Services [address] [place] [address] Radiology Report MR#: [id number] Acct: [id number] Name: ELIZABETH TORO Rep #: [id number] : 1950 F 63 From: Hardeep Dumont MD PCP: Erna Kingston DO Status: REG CLI Study: Shoulder min 2 Views Date of Exam: 05/14/14 Exam# [id number] Ordering Dr: Edita Cabral MD STUDY: X-RAY [...] Silvio Dumont MD at 12:18 EDT , Svpply ce support [phone], CC: Edita Cabral MD; Erna Kingston DO Director Of Communications: Signed 30-Apr-2014 CTA Chest W/WO Contrast Result: Comments: See Note; NOTES: [facility] Imaging Services [address] [place] [address] CAT Scan Report MR#: [id number] Acct: [id number] Name: ELIZABETH TORO Rep #: [id number] : 1950 F 63 From: Hardeep Calix MD PCP: Erna Kingston DO Status: REG CLI Study: CTA Chest W/WO Contrast Date of Exam: 04/30/14 Exam# [id number] Ordering Dr: Erna Kingston DO STUDY: CTA [...] at 19 :01 EDT , Service support [phone], CC: Erna Kingston DO Director Of Communications: Signed Family History Unknown Family Member Name [...] Description Value Details :57 CREATININE FINGERSTICK Comments: [facility] [address] [place] [address] EGFR WB 55.0000 mL/min (Abnormal) CREATININE WB 1.1 mg/dL (Abnormal) Range: 0.55-1.02 67-Rtc-577149:19 D-Dimer (32878) Comments: PATIENT NOT FASTINGPERFORMED BY: [employer] Bnlnwz0258 [facility] [id number] D-Dimer 0.57 {mg/L_FEU} (Abnormal) Range: 0.00-0.49 Comments: According to the assay contract modeler's published package insert, anormal (<0.50 mg/L FEU) D-dimer result in conjunction with a non-highclinical probability assessment, excludes deep vein thrombosis (D VT)and pulmonary embolism (PE) with high sensitivity. .D-dimer values increase with age and this can make VTE exclusion ofan older pop ulation difficult. To address this, the [employer], based on best available evidence [...] and an80 year old 0.80 mg/L FEU. 36-Wzp-949922:19 Troponin I (72121) Comments: PATIENT NOT FASTINGPERFORMED BY: [facility] [id number] Troponin I <0.01 ng/mL (Normal) Range: 0.00-0.04 72-Ost-453203:19 CPK MB FRACTION (11924) Comments: PATIENT NOT FASTINGPERFORMED BY: [facility] [id number] Creatine Kinase (CK), MB 2.5 ng/mL (Normal) Range: 0.0-5.3 34-Kyo-213676:19 CREATINE KINASE TOTAL (00093) Comments: PATIENT NOT FASTINGPERFORMED BY: [facility] Ypublm4426 [facility] Stout[facility] Health[facility]inal[facility] [place] [id number] Creatine Kinase,Total 103 U/L (Normal) Range: 24-173 04-Uek-69160:16 CBC-Complete Blood Cnt No Diff Comments: [facility] [address] [place], [address] MPV 10.5 fL (Normal) Range: 6.2-12.0 [...] Range: 4.4-11.0 :16 Microalb:Creat Ratio,Random UR Comments: [facility] [address] [place], [address] MALB:CREAT Test not performed {mg/g_CRE} (Normal) MICROALBUMIN,UR < 5.0 mg/L (Normal) UR CREAT < 13.00 mg/dL (Normal) :16 PTHIN 51.5 pg/mL (Normal) Comments: [facility] [address] [place], [address] Range: 18.4-80.1 70-Zdu-10664:16 Renal Profile Comments: [facility] [address] [place], [address] CO2 28.0 mmol/L (Normal) Range: 21.0-32.0 [...] Comments: Please note revised GLUCOSE reference range geimypehx52/02/2018. 61-Utq-72292:16 Vitamin D,25 Hydroxy Comments: [facility] [address] [place], [address] Vitamin D 25-OH 69.4 ng/mL (Normal) Range: 29.95-100.01 Comments: Vitamin D 25(OH) Status Range Deficiency <20 ng/mL (50nmol/L) Insuffciency 20 - 30 ng/mL (50 - 75 nmol/L) Sufficiency 30 - 100 ng/mL (75 - 250 nmol/L) Toxicity >100 ng/mL (>250 nmol/L) :04 HgA1C , Office (59484) HgA1C , Office 5.5 % (Normal) Range: 4.6 - 7.1 :23 CALCIFEDIOL (56599) Comments: PATIENT WAS FASTINGPERFORMED BY: [facility]Sqgsdr0103 [facility] [id number] Vitamin D, 25-Hydroxy 43.2 ng/mL (Normal) Range: 30.0-100.0 Comments: Vitamin D deficiency has been defined by the [place] ofMedicine and an Endocrine Society practice guideline as alevel of serum 25-OH vitamin D less than 20 ng/mL (1,2).The Endocrine Society went on to further define vitamin Dinsufficiency as a level between 21 and 29 ng/mL (2).1. IOM ([place] of Medicine). 2010. Dietary reference intakes for calcium and D. [place]: The National Academies Press.2. Azael MF, Leslee LEMON, Hillary PHILLIPS, et al. Evaluation, treatment, and prevention of vitamin D deficiency: an Endocrine Society clinical practice guideline. JCEM. 2010; 96(7):1911-30. 88-Oyr-23822:23 CBC, Platelets & Auto Diff Comments: PATIENT WAS FASTINGPERFORMED BY: [facility]Wauyga0583 [facility] [id number] (99295) Immature Grans (Abs) 0.0 {x10E3/uL} (Normal) Range: [...] Panel, Comprehensive Comments: PATIENT WAS FASTINGPERFORMED BY: [employer] Vfrewz2905 [facility] [id number] ([id number]) ALT (SGPT) 15 [iU]/L (Normal) Range: 0-32 [...] CREATININE RATIO Comments: PATIENT WAS FASTINGPERFORMED BY: [employer] Ksnvna2751 [facility] [id number] (42346) AND (79945) Alb/Creat Ratio <5.6 {mg/g_creat} (Normal) Range: 0.0-30.0 Albumin, Urine <3.0 ug/mL (Normal) Creatinine, Urine 53.5 mg/dL (Normal) 91-Shi-648216:31 Metabolic Panel, Basic Comments: PATIENT NOT FASTINGPERFORMED BY: [employer] [place] [id number] (14467) Calcium, Serum 9.9 mg/dL (Normal) Range: 8.7-10.3 [...] Glucose, Serum 85 mg/dL (Normal) Range: 65-99 :55 HgA1C , Office (79964) Comments: 5.5 HgA1C , Office 5.5 % (Normal) Range: 4.6 - 7.1 5-Znv-599937:22 VITAMIN B12 AND FOLATES Comments: today; PATIENT NOT FASTINGPERFORMED BY: [id number] [facility] [id number] (38915) Folate (Folic Acid), Serum >20.0 ng/mL (Normal) Comments: A serum folate concentration of less than 3.1 ng/mL isconsidered to represent clinical deficiency. Vitamin B12 655 pg/mL (Normal) Range: 232-1245 Comments: Please note reference interval change 85-Kcu-878030:58 CALCIFEDIOL (24312) Comments: PATIENT NOT FASTINGPERFORMED BY: [id number] [facility] [id number] Vitamin D, 25-Hydroxy 25.2 ng/mL (Abnormal) Range: 30.0-100.0 Comments: Vitamin D deficiency has been defined by the [place] ofMedicine and an Endocrine Society practice guideline as alevel of serum 25-OH vitamin D less than 20 ng/mL (1,2).The Endocrine Society went on to further define vitamin Dinsufficiency as a level between 21 and 29 ng/mL (2).1. IOM ([place] of Medicine). 2010. Dietary reference intakes for calcium and D. [place]: The National Academies Press.2. Azael MF, Leslee LEMON, Hillary PHILLIPS, et al. Evaluation, treatment, and prevention of vitamin D deficiency: an Endocrine Society clinical practice guideline. JCEM. 2010; 96(7):1911-30. 03-Ppj-175573:58 TSH (THYROID STIMULATING Comments: PATIENT NOT FASTINGPERFORMED BY: [facility] Ileibh1074 [facility] [id number] HORMONE) (29851) TSH 2.410 {uIU/mL} (Normal) Range: 0.450-4.500 :58 CBC WITH MANUAL DIFF (33821) Comments: PATIENT NOT FASTINGPERFORMED BY: [facility] Atnyjb3164 [facility] [id number] Immature Grans (Abs) 0.0 {x10E3/uL} (Normal) Range: [...] 3.77-5.28 WBC 7.7 {x10E3/uL} (Normal) Range: 3.4-10.8 48-Enw-401900:58 Metabolic Panel, Comprehensive Comments: PATIENT NOT FASTINGPERFORMED BY: [facility] Xluueq4677 [facility] [id number] (57968) ALT (SGPT) 13 [iU]/L (Normal) Range: 0-32 [...] Glucose, Serum 90 mg/dL (Normal) Range: 65-99 :07 Bedside Glucose Comments: [facility] [address] [place] [address] BEDSIDE GLU 100 mg/dL (Normal) Range: 70-110 Comments: MANAGEMENT OF PATIENT CARE PER NURSING PROTOCOL 39-Fsh-758437:14 D-Dimer Quantitative (DVT/PE) Comments: Order Date: 08/30/17Order Info: 63176-3 - [facility] [address] [place], [address] D-DIMER QUANT 0.35 {FEU/ug/m} (Normal) Range: 0.27-0.49 Comments: NORMAL D-Dimer level (<0.50) indicates no DVT or PE. 59-Jgj-211085:44 Blood Glucose , Office (62626) Blood Glucose , 129 (Normal) Office :2 Request Problem Final report Comments: PATIENT NOT FASTINGPERFORMED BY: [employer] Uwyxir7920 [facility] [id number] Information: MOUTH SRC:MO 1 (Normal) Comments: Inappropriate source for anaerobic culture. A routine aerobic culturewas initiated. Contact the Microbiology Lab for further information. :2 Test Code Change SPRCS (Normal) Comments: PATIENT NOT FASTINGPERFORMED BY: [facility] Lezhjq6319 [facility] [id number] 1 Comments: Please note that the Microbiology test code was changed to reflectthe specimen source or transport received. :21 Upper Respiratory Culture Comments: PATIENT NOT FASTINGPERFORMED BY: [employer] Ubxmrj0865 [facility] [id number] Result 1 RRF (Normal) Comments: Routine respiratory duyen Upper Respiratory Culture Final report (Normal) :59 Metabolic Panel, Comprehensive Comments: Jul 2017; PATIENT NOT FASTINGPERFORMED BY: [facility] Aqrffa9985 [facility] [id number] (41331) ALT (SGPT) 16 [iU]/L (Normal) Range: 0-32 [...] Glucose, Serum 80 mg/dL (Normal) Range: 65-99 06-Uxs-196174:59 MAGNESIUM (29641) Comments: today; PATIENT NOT FASTINGPERFORMED BY: [facility] Cznyne7981 [facility] [id number] Magnesium, Serum 2.2 mg/dL (Normal) Range: 1.6-2.3 :04 Blood Glucose , Office (32652) Blood Glucose , Office 111 (Normal) :04 HgA1C , Office (26518) HgA1C , Office 5.5 % (Normal) Range: 4.6 - 7.1 :03 CBC W/Diff, Automated Comments: [facility] [address] [place], [place], [address] ; another doc Absolute Lymph 2.35 {X10_3/ul} [...] (Normal) Range: 4.4-11.0 :03 Protein+Creatinine Ratio,Urine Comments: [facility] Xwqpjbuglp8500 [facility] [address] [place], [place], [address] PROT:CRE RATIO 403 {mg/g_CRE} (Abnormal) Range: 0-200 PROTEIN,UR.RAN. < 6.0 mg/dL (Normal) UR CREAT 13.90 mg/dL (Normal) :03 PTH,INTACT Comments: [facility] [address] [place], [address] PTH,Intact 34 pg/mL (Normal) Range: 14-72 :03 Renal Profile Comments: [facility] Morxthewam[address] [place], [address] CO2 26.0 mmol/L (Normal) Range: 21.0-32.0 CL [...] 7-18 GLU 109 mg/dL (Normal) Range: 70-110 :03 Vitamin D 1,25-Dihydroxy Comments: [facility] (refer to report for specific site)refer to report for address and phone number VITD 25 [address] 48.5 pg/mL (Normal) Range: 19.9-79.3 Comments: Performed at: - [address] [id number] Director: Navdeep Medley MD, Phone: [phone] 32-Uqd-517905:06 Metabolic Panel, Comprehensive Comments: PATIENT NOT FASTINGPERFORMED BY: [facility]Hoicgi4930 [facility] [id number] (46860) ALT (SGPT) 11 [iU]/L (Normal) Range: 0-32 [...] Glucose, Serum 78 mg/dL (Normal) Range: 65-99 96-Zuz-006919:06 CBC, Platelets & Auto Diff Comments: PATIENT NOT FASTINGPERFORMED BY: [facility] Vorapo6248 [facility] [id number] (95975) Immature Grans (Abs) 0.0 {x10E3/uL} (Normal) Range: [...] 3.77-5.28 WBC 9.3 {x10E3/uL} (Normal) Range: 3.4-10.8 96-Egb-351287:06 TSH (24141) Comments: PATIENT NOT FASTINGPERFORMED BY: [employer] [facility] Koscqk1938 [facility] [id number] TSH 3.080 {uIU/mL} (Normal) Range: 0.450-4.500 39-Fxi-781361:56 HgA1C , Office (32637) HgA1C , Office 5.5 % (Normal) Range: 4.6 - 7.1 22-Hpr-353122:56 Blood Glucose , Office (52924) Blood Glucose , Office 81 (Normal) :09 LIPID PANEL (96625) Comments: PATIENT WAS FASTINGPERFORMED BY: [employer] Vzzayf9183 [facility] [id number] LDL/HDL Ratio 2.0 {ratio_units} (Normal) Range: 0.0-3.2 [...] PANEL, COMPREHENSIVE Comments: PATIENT WAS FASTINGPERFORMED BY: [facility]Co Ribgxr0906 [facility] [id number] (04454) ALT (SGPT) 15 [iU]/L (Normal) Range: 0-32 [...] Glucose, Serum 104 mg/dL (Abnormal) Range: 65-99 86-Dnw-66299:04 METABOLIC PANEL, COMPREHENSIVE Comments: fax to Dr Henry; PATIENT WAS FASTINGPERFORMED BY: [facility]Ftnelb0697 [facility] [id number] (55757) ALT (SGPT) 16 [iU]/L (Normal) Range: 0-32 [...] CREATININE RATIO Comments: PATIENT WAS FASTINGPERFORMED BY: [employer] Vpmvbn[address] [facility] [place] [id number] (70174) AND (97705) Microalb/Creat Ratio <6.3 {mg/g_creat} (Normal) Range: 0.0-30.0 Microalbumin, Urine <3.0 ug/mL (Normal) Creatinine, Urine 48.0 mg/dL (Normal) :04 HGB A1C (97062) Comments: PATIENT WAS FASTINGPERFORMED BY: [facility] Yfcpzc3085 [address] [facility] HospitalD[facility] [place] [id number] Hemoglobin A1c 5.7 % (Abnormal) Range: 4.8-5.6 Comments: . Pre-diabetes: 5.7 - 6.4 Diabetes: >6.4 Glycemic control for adults with diabetes: <7.0 :04 CALCIFEDIOL (84997) Comments: PATIENT WAS FASTINGPERFORMED BY: [facility] Pofndb[address] [facility] [place] [id number] Vitamin D, 25-Hydroxy 24.2 ng/mL (Abnormal) Range: 30.0-100.0 Comments: Vitamin D deficiency has been defined by the [place] ofMedicine and an Endocrine Society practice guideline as alevel of serum 25-OH vitamin D less than 20 ng/mL (1,2).The Endocrine Society went on to further define vitamin Dinsufficiency as a level between 21 and 29 ng/mL (2).1. IOM ([place] of Medicine). 2010. Dietary reference intakes for calcium and D. [place]: The National Academies Press.2. Azael MF, Leslee NC, Hillary PHILLIPS, et al. Evaluation, treatment, and prevention of vitamin D deficiency: an Endocrine Society clinical practice guideline. JCEM. 2010; 96(7):1911-30. :04 TSH (THYROID STIMULATING Comments: PATIENT WAS FASTINGPERFORMED BY: CB [facility] Cqyfmf6314 Mon[address] [facility] HospitalDublin [place] [id number] HORMONE) (55864) TSH 2.710 {uIU/mL} (Normal) Range: 0.450-4.500 :04 LIPID PANEL (15456) Comments: PATIENT WAS FASTINGPERFORMED BY: [facility] Orth[facility] TechnologiesJefferson Washington [facility] Hospital [facility])Ovxsom9941 [facility] [id number] LDL/HDL Ratio 1.7 {ratio_units} (Normal) Range: 0.0-3.2 [...] AUT DIFF Comments: PATIENT WAS FASTINGPERFORMED BY: Kloud Angelslin6370 [facility] [id number] (09970) Immature Grans (Abs) 0.0 {x10E3/uL} (Normal) Range: [...] up testing of positive sera with both NC-3 and MPO- ANCA enzyme immunoassays. As many as 5% serumsamp les are positive only by EIA. Ref. AM J Clin Fkncpn0085;111:507-513. CYTOPLASMIC Ab <1:20 {titer} (Normal) :28 Anti-dsDNA Ab Comments: [facility] (refer to report for specific site)refer to report for address and phone number dsDNA AB <1 {IU/mL} (Normal) Range: 0-9 Comments: Negative <5 Equivocal 5 - 9 Positive >9Performed at: [facility] [id number] D irector: Junior Valera PhD, Phone: [phone] :28 Complement C3 Comments: Is Patient Fasting? Y[facility] (refer to report for specific site)refer to report for address and phone number COMP C3 127 mg/dL (Normal) Range: 82-167 Comments: Performed at: [facility]Bifiaq4865 [place], [place] [id number] Director: Junior Valera PhD, Phone: [phone] :[phone] Complement C4 Comments: Is Patient Fasting? [...] electrophoresis scan will follow via computer,mail, or data coder operator delivery. LEOPOLDO RESULT,S Comment: (Normal) Comments: Presence of monoclonal protein is unclear at this time. Suggest repeat in 3 to 6 months if clinically indicated. A/G RATIO 0.9 (Normal) Range: 0.7-1.7 GLOBULIN, TOTAL 3.8 g/dL (Normal) Range: 2.2-3.9 M-SPIKE (Normal) Comments: Not Observed GAMMA GLOBULIN 1.4 g/dL (Normal) Range: 0.4-1.8 BETA GLOBULIN 1.3 g/dL (Normal) Range: 0.7-1.3 TNGTK-7-EDTL 0.9 g/dL (Normal) Range: 0.4-1.0 AHYNS-3-IQXQ 0.2 g/dL (Normal) Range: 0.0-0.4 ALBUMIN 3.4 g/dL (Normal) Range: 2.9-4.4 IMMUNOGL M 44 mg/dL (Normal) Range: 26-217 IMMUNO A 614 mg/dL (Abnormal) Range: 87-352 IMMUNO G 1353 mg/dL (Normal) Range: 700-1600 PROTEIN,TOTAL 7.2 g/dL (Normal) Range: 6.0-8.5 :28 Protein+Creatinine Ratio,Urine Comments: [facility] [address]ps[address] [place], [place], [id number] PROT:CRE RATIO 128 {mg/g_CRE} (Normal) Range: 0-200 PROTEIN,UR.RAN. 6.5 mg/dL (Normal) UR CREAT 50.60 mg/dL (Normal) 31-Ium-102598:46 RENAL FUNCTION PANEL (53246) Comments: PATIENT NOT FASTINGPERFORMED BY: [facility]insulaRehabilitation Institute [facility] Michigan6370 [facility] [id number] Phosphorus, Serum 4.2 mg/dL (Normal) Range: 2.5-4.5 29-Vze-469895:46 PT (PROTHROMBIN TIME) (67230) Comments: PATIENT NOT FASTINGPERFORMED BY: [facility]insulaRe[facility]6370 [facility] [id number] Prothrombin Time 10.9 {sec} (Normal) Range: 9.1-12.0 INR 1.1 (Normal) Range: 0.8-1.2 Comments: Reference interval is for non-anticoagulated patients. . Suggested INR therapeutic range for Vitamin K anta gonist therapy: Standard Dose (moderate intensity therapeutic range): 2.0 - 3.0 Higher intensity therapeutic range 2.5 - 3.5 88-Pzj-824161:46 METABOLIC PANEL, COMPREHENSIVE Comments: PATIENT NOT FASTINGPERFORMED BY: [facility]Re[facility]6370 [facility] [id number] (68998) ALT (SGPT) 24 [iU]/L (Normal) Range: 0-32 [...] Glucose, Serum 109 mg/dL (Abnormal) Range: 65-99 71-Hng-953443:46 CBC, PLATELETS & AUT DIFF Comments: PATIENT NOT FASTINGPERFORMED BY: [facility] Pzkhqp2375 [facility] [id number] Information: [id number] (43482) Immature Grans (Abs) 0.0 {x10E3/uL} (Normal) Range: [...] (Normal) Range: 3.4-10.8 :23 HgA1C , Office (43541) HgA1C , Office 5.4 % (Normal) Range: 4.6 - 7.1 :16 CBC-Complete Blood Cnt No Diff Comments: [facility] [address] [place], [address] MPV 8.8 fL (Normal) Range: [...] 4.4-11.0 :16 Serum Creatinine AND GFR Comments: [facility] [address] [place], [place], [address] Estimated CRCL 27.75 ml/min (Normal) EST GFR - AA 37 mL/min (Abnormal) Comments: GFR Calc EST GFR 30 mL/min (Abnormal) Comments: Non- GFR Calc CREAT,SERUM 1.77 mg/dL (Abnormal) Range: 0.55-1.20 Comments: The validity of the calculated GFR AND GFRAA in patients over70 years has not been determined. Clinical correlation isessential. :15 Bedside Glucose Comments: [facility] LaboratoryPoint of [address] [place], [place] [address] BEDSIDE GLU 128 mg/dL (Abnormal) Range: 70-110 Comments: Policy and Physicians Orders followedMANAGEMENT OF PATIENT CARE PER NURSING PROTOCOL HYSTERECTOMY SPECIMEN See Note (Normal) Comments: [facility] [address]nb[address] [place], [address] :39 Comments: Patient: ELIZABETH TORO : 1950 (65/F) Acct Num: [id number] Phys: Gonsalo PROCTOR,Gm Unit Num: [id number] Loc: MS1 KD397-9 Specimen: [id number] Received: 06/22/161336 Spec Ty pe: HYSTERECT TISSUES TISSUES: COMMENT Please make reference to previous specimen () endometrial biopsy with diagnosis of consistent with atrophic endometrium and ([id number]) e ndometrium andpolyp, excision with diagnosis of [...] measures 1.2 x 0.7 x 0.6 cm. Application Support Intern sections are submitted inten cassettes as follows: [...] - left fallopian tube and ovary. / Sridevi 06/22/16 TC:1 CPT:26345 HEADER OPERATION: Lap robotic hysterectomy, BSO PRE-OP [...] Signed Sivakumar Mallory 06/23/16 <signature on file> 72-Lra-96241:31 Bedside Glucose Comments: [facility] LaboratoryPoint of [address] [place] [address] BEDSIDE GLU 89 mg/dL (Normal) Range: 70-110 Comments: Physician Notified VBRBMANAGEMENT OF PATIENT CARE PER NURSING PROTOCOL 86-Jck-891549:31 CBC-Complete Blood Cnt No Diff Comments: [facility] [address] [place], [place], [address] MPV 10.1 fL (Normal) Range: 6.2-12.0 PLT [...] 4.2-5.4 WBC 7.6 K/mm3 (Normal) Range: 4.4-11.0 48-Ykw-680170:31 Comprehensive Metabolic Profil Comments: [facility] [address] [place], [place], [address] GAP 8 (Normal) Range: 5-15 CO2 24.0 [...] 7-18 GLU 87 mg/dL (Normal) Range: 70-110 :31 Hemoglobin A1c Comments: [facility] [address] [place], [id number] HGB A1C 5.6 % (Normal) Range: 4.2-6.3 :31 Partial Thromboplast Time Comments: [facility] [address] [place], [address] PTT 27.7 s (Normal) Range: 24.1-36.2 :31 Prothrombin Time w/INR Comments: [facility] [address] [place], [address] INR 1.1 (Normal) PROTIME 13.4 s (Normal) Range: 11.7-14.9 :31 Thyroid Stim Hormone (TSH) Comments: [facility] [address] [place], [address] TSH 2.46 {uIU/mL} (Normal) Range: 0.358-3.74 :31 Type AND Screen Comments: Surgery Date: 06/22/16Date of Last Transfusion (if within last 3 months) NHx of Preganancy in last 3 Months NoEver experience any problems with transfusion(s)? NHx of Transfusion in last 3 Months N Reason for Type AND Screen/Red Cells: SURGERYTime: 0600SURGICAL PROCEDURE: [facility]STERGal[facility] [address]qiek[address] [place], [address] Antibody Screen NEGATIVE (Normal) BLOOD TYPE GEL A NEGATIVE (Normal) 06-Mbv-673208:28 Comprehensive Metabolic Profil Comments: Order Date: 06/10/16Order Date: 06/10/16[facility] [address] [place], [address] GAP 5 (Normal) Range: 5-15 CO2 28.0 [...] 7-18 GLU 79 mg/dL (Normal) Range: 70-110 07-Yql-114840:58 CBC W/Diff, Automated Comments: [facility] [address] [place], [address] Absolute Lymph 2.98 {X10_3/ul} (Normal) Range: 0.83-4.51 [...] 4.2-5.4 WBC 8.7 K/mm3 (Normal) Range: 4.4-11.0 96-Hjr-733169:58 Comprehensive Metabolic Profil Comments: Is Patient Taking Vitamins or Folic Acid Supplements? [facility] L[address]otm[address] [place], [place], [address] GAP 8 (Normal) Range: 5-15 CO2 29.0 [...] 7-18 GLU 95 mg/dL (Normal) Range: 70-110 80-Rsk-248220:58 Erythrocyte Sed Rate Comments: [facility] [address] [place], [address] SED RATE 25 mm/h (Normal) Range: 0-30 15-Gxm-221906:58 Folates, (Folic Acid) Comments: Is Patient Taking Vitamins or Folic Acid Supplements? [facility] [address] [place], [place], [address] FOLATES 9.60 ng/mL (Normal) Range: 3.1-17.5 00-Wcn-343051:58 Thyroid Stim Hormone (TSH) Comments: Is Patient Taking Vitamins or Folic Acid Supplements? [facility] [address] [place], [address] TSH 2.58 {uIU/mL} (Normal) Range: 0.358-3.74 02-Osn-199242:58 Vitamin B12 543 pg/mL (Normal) Comments: [facility] [address] [place], [address] Range: 211-911 24-Sic-297098:07 Urinalysis, Office (42291) UA - LEUKOCYTE ESTERASE Trace (Normal) UA - NITRITE Negative (Normal) URINE UROBILINGN SHARIFA TIMED Normal mg/dL (Normal) UA - PROTEIN Negative mg/dL (Normal) UA - PH 6.5 (Normal) UA - BLOOD Hemolyzed Trace (Normal) UA - SPECIFIC GRAVITY 1.005 (Normal) UA - KETONES Negative mg/dL (Normal) UA - BILIRUBIN Negative (Normal) UA - GLUCOSE Negative (Normal) 47-Kmf-345285:04 URINE VERÓNICA CULTURE-SHARIFA COL Comments: PATIENT NOT FASTINGPERFORMED BY: EMIL [facility] Nbtthm9833 [address] [place] [id number] Information: SRC:[facility] [id number] COUNT (09961) Antimicrobial MIHEAD (Normal) Comments: S = Susceptible; [...] (Abnormal) Urine Final report Culture,Comprehensive (Abnormal) EGD ([facility] S[facility]) See Note (Normal) Comments: [facility] [address] [place], [address]:04 Comments: Patient: ELIZABETH TORO : 1950 (65/F) Acct Num: [id number] Phys: Junior Pena Unit Num: [id number] Loc: LABSPEC Specimen: [id number] Received: 04/21/161637 Spec Type: EGD BIOPSY TISSUES TISSUES: COMMENT [...] totall y submitted in one cassette. / Sridevi 04/22/16 TC:3 CPT:99229 HEADER OPERATION: EGD with biopsy PRE-OP DIAGNOSIS: Dysphagia TISSUE SUBMITTED: Esophageal biopsy, R/O EE MICROSCOPIC DESCRIP TION Slides are reviewed. MICROSCOPIC DIAGNOSIS Esophageal biopsy: Fragments of squamous epithelium with mild chronic inflammation. See comment. Sridevi 04/23/16 Signed Sivakumar Mallory 04/23/16 <signature on file> CERVICAL See Note (Normal) Comments: [facility] [address] [place], [address]:15 Comments: Patient: ELIZABETH TORO : 1950 (65/F) Acct Num: [id number] Phys: Gonsalo PROCTOR,[facility] Unit Num: [id number] [place] [facility] [place]: [id number] Received: 04/13/161335 Spec Type: CER V TISSUES [...] one cassette. / AM: 04/13/16 TC:5 CPT: 06052 x 2 HEADER OPERATION: Hysteroscopy, diagnostic, D AND C PRE-OP DIAGNOSIS: Postmenopausal bleeding TISSUE SUBMITTED: A - Endocervical curettings, B - Endometrial curettings and polyp [facility] DESCRIPTION Slides are reviewed. MICROSCOPIC DIAGNOSIS A. Endocervix, curettings: Strips of benign superficial endocervix. Rare strips of benign superficial ectocervix. B. Endom etrium and polyp, excision: Benign endometrial polyp with simple cystic hyperplasia without atypia. Scant strips of benign superficial endometrium. AM: 04/14/16 Signed Ras Easley 04/14/16 <signature on file> 26-Ypk-44892:04 Bedside Glucose Comments: [facility] LaboratoryPoint of [address] [place] [address] BEDSIDE GLU 98 mg/dL (Normal) Range: 70-110 Comments: No Action RequiredMANAGEMENT OF PATIENT CARE PER NURSING PROTOCOL :08 CBC-Complete Blood Cnt No Diff Comments: [facility] [address] [place], [address] MPV 9.4 fL (Normal) Range: [...] Range: 4.4-11.0 :08 Comprehensive Metabolic Profil Comments: [facility] [address] [place], [address] GAP 8 (Normal) Range: 5-15 [...] Range: 70-110 :08 Partial Thromboplast Time Comments: [facility] [address] [place], [address] PTT 29.8 s (Normal) Range: 24.1-36.2 :08 Prothrombin Time w/INR Comments: [facility] [address] [place], [address] INR 1.1 (Normal) PROTIME 13.6 s (Normal) Range: 11.7-14.9 :08 Type AND Screen Comments: Surgery Date: 04/13/16Date of Last Transfusion (if within last 3 months) NHx of Preganancy in last 3 Months NoEver experience any problems with transfusion(s)? NHx of Transfusion in last 3 Months N Reason for Type AND Screen/Red Cells: SURGERYTime: 1015SURGICAL PROCEDURE: D [facility] [address]tgrt[address] [place], [address] Antibody Screen NEGATIVE (Normal) BLOOD TYPE GEL A NEGATIVE (Normal) ENDOMETRIAL See Note (Normal) Comments: [facility] [address] [place], [address] 6:00 BX/CURETTINGS Comments: Patient: ELIZABETH TORO : 1950 (65/F) Acct Num: [id number] Phys: Gonsalo PROCTOR,[facility] Unit Num: [id number] Loc: LABSPEC Specimen: [id number] Received: 03/26/16 - 1600 Spec Type: ENDOM [...] in one cassette. / AM:stormy 03/27/16 TC:4 CPT:02702 HEADER OPERATION: Endometrial biopsy PRE-OP DIAGNOSIS: N95.0 TISSUE SUBMITTED: EMB MICROSCOPIC DESCRIPTION Slides are r sharathiewed. MICROSCOPIC DIAGNOSIS Endometrial biopsy: Scant strips of benign endometrial epithelium, consistent with atrophic endometrium. Fragments of benign endocervical epithelium and mucous. 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 of containers..01 CYTYC Thin Prep VialLabCorp (refer to report for specific site)refer to report for address and phone number HPV RFLX Comment (Normal) Comments: The HPV DNA reflex criteria were not met with this specimenresult therefore, no HPV testing was performed.Performed at: [address] [place] [id number] Director: Annamaria Menezes MD, Phone: [phone] PAPSMR Comment (Normal) Comments: The Pap smear [...] system. PERFORM Comment (Normal) Comments: Adeline Singleton, Rotary Furnace Tender (ASCP) ADEQ Comment (Normal) Comments: Satisfactory for evaluation. DIAGN Comment (Normal) Comments: NEGATIVE FOR INTRAEPITHELIAL LESION AND MALIGNANCY. 66-Xti-00682:20 Urinalysis, Complete Comments: How was Urine Obtained? COREMAKER MACHINE TO SPECIFYGalion Hospital [address]ysl[address] [place], [address] MUCUS, URINE 0 SEEN {/hpf} [...] (Normal) CLARITY Clear (Normal) COLOR Straw (Normal) 70-Bsc-891726:50 Basic Metabolic Profile (BMP) Comments: [facility] [address] [place], [address] GAP 7 (Normal) Range: 5-15 [...] <126 mg/dLsuggests IMPAIRED HOMEOSTASIS per A.D.A. criteria. 12-Dki-837028:50 CBC W/Diff, Automated Comments: [facility] [address] [place], [address] Absolute Lymph 3.53 {X10_3/ul} (Normal) Range: 0.83-4.51 [...] K/mm3 (Normal) Range: 4.4-11.0 :02 Rapid Flu (31652 x 2) Influenza A Ag negative (Normal) 9-Qng-545313:31 SJOGREN ANTIBOIDIES Comments: PATIENT NOT FASTINGPERFORMED BY: [facility]CoJeff[facility])Oovpbu5187 [facility] [id number] Information: [id number] (ANTI-SS-A/ANTI-SS-B) (89118) Sjogren's Anti-SS-B <0.2 {AI} (Normal) Range: 0.0-0.9 Sjogren's Anti-SS-A <0.2 {AI} (Normal) Range: 0.0-0.9 :28 Rapid Strep Test, Office (70146) Rapid Strep Test, Office Negative (Normal) 8-Hdb-603034:37 Throat Culture (33909) Comments: PATIENT NOT FASTINGPERFORMED BY: [facility]6370 [facility] [id number] Information: SRC:THRT [id number] Result 1 BETAGB (Abnormal) Comments: Beta hemolytic [...] 2011) Upper Respiratory Culture Final report (Abnormal) 3-Nyc-826383:45 Basic Metabolic Profile (BMP) Comments: 'TROP' Serial specimen #1, #2, #3, or #4: 1WSelect [facility] [address]cyfza[address] [place], [place], [address] GAP 9 (Normal) Range: 5-15 CO2 23.0 [...] 7-18 GLU 92 mg/dL (Normal) Range: 70-110 2-Dtz-980861:45 CBC W/Diff, Automated Comments: [facility] [address] [place], [address] Absolute Lymph 2.03 {X10_3/ul} (Normal) Range: 0.83-4.51 [...] Serial specimen #1, #2, #3, or #4: [address] [place] [address] Vrfijbnjju6714 [facility] [place], [address] TSH 1.50 {uIU/mL} (Normal) Range: 0.358-3.74 :45 Troponin-I Comments: 'TROP' Serial specimen #1, #2, #3, or #4: [address] [place] [address] Ofduovlpcp9739 [facility] [address]. [place], [place], [address] TROPONIN-I < 0.02 ng/mL (Normal) Comments: TROPONIN-I EXPECTED VALUES <0.05 NEGATIVE 0.06 - 0.59 AT RISK OF RI > OR = 0.60 SUGGEST RI 66-Arc-29809:53 Pap IG (Image Comments: Source.............Cervical;EndocervicalNo. of containers..01 CYTYC Thin Prep VialPATIENT NOT FASTINGPERFORMED BY: =G [facility] [address] [id number] BY: WB L Guided) [facility] [address] [id number] Note: PAPSMR (Normal) Comments: The Pap smear [...] of partially obscuring exudate are present.Z00.00Adeline Singleton Rotary Furnace Tender (ASCP) :01 HgA1C , Office (69625) HgA1C , Office 5.9 % (Normal) Range: 4.6 - 7.1 :00 Blood Glucose , Office (84855) Blood Glucose , Office 126 (Normal) :53 Thin Prep Pap Comments: Source.............Cervical;EndocervicalNo. of containers..01 CYTYC Thin Prep VialPATIENT NOT FASTINGPERFORMED BY: =G [facility] Nngkpvzxos875 [facility] [id number] BY: SARAY Jose (86751) [facility] Gsgiiwgpmt272 [facility] [id number] Information: [id number] Age Gdln ACOG Testing AGE4 (Normal) Comments: <21 or >65 or no age provided :34 METABOLIC PANEL, Comments: PATIENT WAS FASTINGPERFORMED BY: EMIL [facility] Jaudiw4948 [facility] [id number] Information: [id number] COMPREHENSIVE (78632) ALT (SGPT) 18 [iU]/L (Normal) Range: 0-32 [...] 83 mg/dL (Normal) Range: 65-99 :34 CALCIFIDIOL (97370) VIT D 25 Comments: PATIENT WAS FASTINGPERFORMED BY: LabRehabilitation Institute Of Michigan6370 [facility] [id number] Vitamin D, 25-Hydroxy 59.6 ng/mL (Normal) Range: 30.0-100.0 Comments: Vitamin D deficiency has been defined by the [place] ofAultman Orrville Hospitalcine and an Endocrine Society practice guideline as alevel of serum 25-OH vitamin D less than 20 ng/mL (1,2).The Endocrine Society went on to further define vitamin Dinsufficiency as a level between 21 and 29 ng/mL (2).1. IOM ([place] of Medicine). 2010. Dietary reference intakes for calcium and D. [place]: The National Academies Press.2. Azael MF, Leslee NC, Hillary PHILLIPS, et al. Evaluation, treatment, and prevention of vitamin D deficiency: an Endocrine Society clinical practice guideline. JCEM. 2010; 96(7):1911-30. :37 HgA1C , Office (57098) HgA1C , Office 6.1 % (Normal) Range: 4.6 - 7.1 :37 Blood Glucose , Office (77829) Blood Glucose , Office 107 (Normal) :27 TSH (THYROID STIMULATING Comments: PATIENT WAS FASTINGPERFORMED BY: LabRehabilitation [facility]6370 [facility] [id number] HORMONE) (15449) TSH 2.480 {uIU/mL} (Normal) Range: 0.450-4.500 :27 CALCIFEDIOL (71373) Comments: PATIENT WAS FASTINGPERFORMED BY: [facility]CoJeff[facility])Uusrtl1382 [facility] [id number] Vitamin D, 25-Hydroxy 16.7 ng/mL (Abnormal) Range: 30.0-100.0 Comments: Vitamin D deficiency has been defined by the [place] ofMedicine and an Endocrine Society practice guideline as alevel of serum 25-OH vitamin D less than 20 ng/mL (1,2).The Endocrine Society went on to further define vitamin Dinsufficiency as a level between 21 and 29 ng/mL (2).1. IOM ([place] of Medicine). 2010. Dietary reference intakes for calcium and D. [place]: The National Academies Press.2. Azael MF, Leslee NC, Hillary PHILLIPS, et al. Evaluation, treatment, and prevention of vitamin D deficiency: an Endocrine Society clinical practice guideline. JCEM. 2010; 96(7):1911-30. :27 LIPID PANEL (98664) Comments: PATIENT WAS FASTINGPERFORMED BY: LabRehabilitation [facility] Michigan6370 [facility] [id number] LDL/HDL Ratio 1.2 {ratio_units} (Normal) Range: 0.0-3.2 [...] PANEL, COMPREHENSIVE Comments: PATIENT WAS FASTINGPERFORMED BY: EMIL [employer] Brqxjh1488 [facility] [id number] (33713) ALT (SGPT) 19 [iU]/L (Normal) Range: 0-32 [...] & MANUAL Comments: PATIENT WAS FASTINGPERFORMED BY: EMIL [employer] [facility]opedic TechnologiesRehoboth McKinley Christian Health Care ServicesQpcwhs5382 [facility] [id number] Information: [id number], [id number] DIFF (48857) Immature Grans (Abs) 0.0 {x10E3/uL} (Normal) Range: [...] 3.77-5.28 WBC 7.0 {x10E3/uL} (Normal) Range: 3.4-10.8 42-Txm-744413:31 CREATININE CLEARANCE Comments: PATIENT NOT FASTINGPERFORMED BY: [facility]CoJeff[facility])Uyctvw2246 [facility] [id number] Information: [id number] START @9AM FINISH 01/28/15@9 AM (56654) Creatinine Clearance 53 mL/min (Abnormal) Range: 88-128 [...] Hour Urine Comments: PATIENT NOT FASTINGPERFORMED BY: VinsulaJohn J. Pershing Va Medical CenterXqizjm7587 [facility] [id number] (62765) Prot,24hr calculated 357.5 {mg/24_hr} (Abnormal) Range: 30.0-150.0 Protein,Total,Urine 13.0 mg/dL (Normal) Range: 0.0-15.0 :28 HgA1C , Office (64165) HgA1C , Office 5.9 % (Normal) Range: 4.6 - 7.1 :28 Blood Glucose , Office (91827) Blood Glucose , Office 136 (Normal) :53 TSH (37480) Comments: PATIENT WAS FASTINGPERFORMED BY: [facility] [id number] TSH 4.370 {uIU/mL} (Normal) Range: 0.450-4.500 :53 MICROALBUMIN: CREATININE RATIO Comments: PATIENT WAS FASTINGPERFORMED BY: [facility]6[address] [facility] [id number] (08680) AND (75780) Microalb/Creat Ratio 5.0 {mg/g_creat} (Normal) Range: 0.0-30.0 Microalbumin, Urine 4.5 ug/mL (Normal) Range: 0.0-17.0 Creatinine, Urine 90.5 mg/dL (Normal) Range: 15.0-278.0 :53 METABOLIC PANEL, COMPREHENSIVE Comments: PATIENT WAS FASTINGPERFORMED BY: [facility] [id number] (83079) ALT (SGPT) 20 [iU]/L (Normal) Range: 0-32 [...] Glucose, Serum 104 mg/dL (Abnormal) Range: 65-99 :53 LIPID PANEL (40726) Comments: PATIENT WAS FASTINGPERFORMED BY: [facility]Pnbcco5503 [facility] [id number] LDL/HDL Ratio 1.4 {ratio_units} (Normal) Range: 0.0-3.2 [...] DIFF WBC Comments: PATIENT WAS FASTINGPERFORMED BY: [facility] Orthopedic TechnologiesJefferson [facility])Wzhejx4730 [facility] [id number] Information: [id number] (78944) Immature Grans (Abs) 0.0 {x10E3/uL} (Normal) Range: [...] 7.8 {x10E3/uL} (Normal) Range: 3.4-10.8 :53 CALCIFIDIOL (68445) VIT D 25 Comments: PATIENT WAS FASTINGPERFORMED BY: [facility] Orthopedic TechnologiesJeff[facility])Mpkxaq7890 [facility] [id number] Vitamin D, 25-Hydroxy 22.5 ng/mL (Abnormal) Range: 30.0-100.0 Comments: Vitamin D deficiency has been defined by the [place] ofMedicine and an Endocrine Society practice guideline as alevel of serum 25-OH vitamin D less than 20 ng/mL (1,2).The Endocrine Society went on to further define vitamin Dinsufficiency as a level between 21 and 29 ng/mL (2).1. IOM ([place] of Medicine). 2010. Dietary reference intakes for calcium and D. [place]: The National Academies Press.2. Azael MF, Leslee LEMON, Hillary PHILLIPS, et al. Evaluation, treatment, and prevention of vitamin D deficiency: an Endocrine Society clinical practice guideline. JCEM. 2010; 96(7):1911-30. :22 HgA1C , Office (12951) HgA1C , Office 6.0 % (Normal) Range: 4.6 - 7.1 :22 Blood Glucose , Office (33577) Blood Glucose , Office 132 (Normal) :27 Blood Glucose , Office (03672) Blood Glucose , Office 114 (Normal) :27 HgA1C , Office (45860) HgA1C , Office 5.9 % (Normal) Range: 4.6 - 7.1 :00 Basic Metabolic Panel (8) Comments: PATIENT NOT FASTINGPERFORMED BY: CB [facility] Loerxj7933 [facility] [id number] BY: BN [facility] [address] [id number] Calcium, Serum 9.8 mg/dL (Normal) Range: 8.6-10.2 [...] 287 {mOsmol/kg} Comments: PATIENT NOT FASTINGPERFORMED BY: [employer] Crtexp9285 [facility] [id number] BY: Vinsula[address] [id number] 00 (Normal) Range: 280-301 : Osmolality, Urine 259 {mOsmol/kg} Comments: PATIENT NOT FASTINGPERFORMED BY: [employer] Kesunh5085 [facility] [id number] BY: [employer] [id number] 00 (Normal) Comments: 24 hr : 300 - 900 Random: 50 - 1400 After 12hr fluid restriction: >850 : Sodium, Urine 11 mmol/L (Normal) Comments: PATIENT NOT FASTINGPERFORMED BY: [employer] Xeupef4515 [facility] [id number] BY: Vinsula[address] [id number] 00 9-Qpf-138786:06 Metabolic Panel, Basic Comments: PATIENT NOT FASTINGPERFORMED BY: [employer] Lzfklv9638 [facility] [id number] Information: [id number] (49254) Calcium, Serum 9.9 mg/dL (Normal) Range: 8.6-10.2 [...] 4.2-5.4 WBC 9.6 K/mm3 (Normal) Range: 4.4-11.0 :34 CMP Comments: 'TROP' Serial specimen #1, #2, [...] <0.05 NEGATIVE0.06 - 0.59 AT RISK OF RI> OR = 0.60 SUGGEST RI :34 TSH 2.32 {uIU/mL} (Normal) Comments: 'TROP' Serial specimen #1, #2, #3, or #4: 1 Range: 0.358-3.74 01-May-20140:00 Microscopic Examination Comments: PATIENT WAS FASTINGPERFORMED BY: [facility] Vqmwzs4965 [facility] [id number] Bacteria Few (Normal) Mucus Threads Present (Normal) Epithelial Cells (non renal) 0-10 {/hpf} (Normal) Range: 0 - 10 RBC 0-2 {/hpf} (Normal) Range: 0 - 2 WBC 11-30 {/hpf} (Abnormal) Range: 0 - 5 80-Tzf-899406:15 TSH (18808) Comments: PATIENT WAS FASTINGPERFORMED BY: [facility] Iecluz[address] [place] [id number] TSH 3.310 {uIU/mL} (Normal) Range: 0.450-4.500 94-Nts-322178:15 CALCIFIDIOL (28649) VIT D 25 Comments: PATIENT WAS FASTINGPERFORMED BY: [facility] Tvjnpe[address] [facility] [place] [id number] Vitamin D, 25-Hydroxy 35.7 ng/mL (Normal) Range: 30.0-100.0 Comments: Vitamin D deficiency has been defined by the [place] ofAult[facility] Orrville Hospitalcine and an Endocrine Society practice guideline as alevel of serum 25-OH vitamin D less than 20 ng/mL (1,2).The Endocrine Society went on to further define vitamin Dinsufficiency as a level between 21 and 29 ng/mL (2).1. IOM ([place] of Medicine). 2010. Dietary reference intakes for calcium and D. [place]: The National Academies Press.2. Azael MF, Leslee NC, Hillary PHILLIPS, et al. Evaluation, treatment, and prevention of vitamin D deficiency: an Endocrine Society clinical practice guideline. JCEM. 2010; 96(7):1911-30. 31-Iji-699860:15 URINALYSIS, W/ MICRO (21781) Comments: PATIENT WAS FASTINGPERFORMED BY: [facility] Anyxbk[address] [facility] [place] [id number] Microscopic Examination See below: (Normal) Nitrite, Urine Positive (Abnormal) Bilirubin Negative (Normal) Urobilinogen,Semi-Qn 0.2 mg/dL (Normal) Range: 0.0-1.9 Ketones Negative (Normal) Occult Blood Negative (Normal) Glucose Negative (Normal) Protein Negative (Normal) Appearance Clear (Normal) WBC Esterase 2+ (Abnormal) pH 6.5 (Normal) Range: 5.0-7.5 Urine-Color Yellow (Normal) Specific Ririe 1.015 (Normal) Range: 1.005-1.030 28-Wmq-462674:15 METABOLIC PANEL, COMPREHENSIVE Comments: PATIENT WAS FASTINGPERFORMED BY: Advanced Orthopedic TechnologiesRehoboth McKinley Christian Health Care ServicesVylkzs7270 [facility] [id number] (37776) ALT (SGPT) 19 [iU]/L (Normal) Range: 0-32 [...] Glucose, Serum 118 mg/dL (Abnormal) Range: 65-99 48-Yov-830783:15 LIPID PANEL (96419) Comments: PATIENT WAS FASTINGPERFORMED BY: [facility] TechnologiesJeff[facility])Ffczdz0831 [facility] [id number] LDL/HDL Ratio 1.7 {ratio_units} (Normal) Range: 0.0-3.2 LDL Cholesterol Calc 90 mg/dL (Normal) Range: 0-99 VLDL Cholesterol Hillary 33 mg/dL (Normal) Range: 5-40 HDL Cholesterol 53 mg/dL (Normal) Comments: According to ATP-III Guidelines, HDL-C >59 mg/dL is considered anegative risk factor for CHD. Triglycerides 166 mg/dL (Abnormal) Range: 0-149 Cholesterol, Total 176 mg/dL (Normal) Range: 100-199 51-Qaj-875585:15 CBC WITH MANUAL DIFF Comments: PATIENT WAS FASTINGPERFORMED BY: [facility])Orhodk2170 [facility] [id number] Information: [id number] (15395) Immature Grans (Abs) 0.0 {x10E3/uL} (Normal) Range: [...] 3.77-5.28 WBC 7.0 {x10E3/uL} (Normal) Range: 3.4-10.8 97-Six-471505:20 Blood Glucose , Office (20474) Blood Glucose , Office 102 (Normal) 81-Hke-520009:20 HgA1C , Office (37642) HgA1C , Office 6.0 % (Normal) Range: 4.6 - 7.1 7-Imf-517412:27 URINE VERÓNICA CULTURE-IDENTIFICATN Comments: PATIENT NOT FASTINGPERFORMED BY: [facility] Orthopedic TechnologiesJennifer [place] 5348570 [facility] [id number] Information: [id number] (41115) Result 1 NG36 (Normal) Comments: No growth in 36 - 48 hours. Urine Culture,Comprehensive Final report (Normal) 8-Wkq-937318:03 URINALYSIS (52645) URINALYSIS neg for all (Normal) 49-Jgl-70221:31 URINE VERÓNICA CULTURE-SHARIFA COL Comments: PATIENT NOT FASTINGPERFORMED BY: [facility] Krqmsw0422 [facility] [id number] Information: SRC:UR [id number] COUNT (64759) Antimicrobial MIHEAD (Normal) Comments: S = Susceptible; [...] Final report Culture,Comprehensive (Normal) :26 Urinalysis, Office (08589) UA - LEUKOCYTE ESTERASE Moderate (Normal) UA - NITRITE Negative (Normal) URINE UROBILINGN SHARIFA TIMED Normal mg/dL (Normal) UA - PROTEIN Negative mg/dL (Normal) UA - PH 5 (Abnormal) UA - BLOOD Hemolyzed Small (Normal) UA - SPECIFIC GRAVITY 1.025 (Normal) UA - KETONES Negative mg/dL (Normal) UA - BILIRUBIN Negative (Normal) UA - GLUCOSE Negative (Normal) :52 LIPID PANEL (88758) Comments: PATIENT WAS FASTINGPERFORMED BY: Advanced Orthopedic TechnologiesJennifer [place] 5348570 [facility] [id number] Information: [id number] LDL/HDL Ratio 2.1 {ratio_units} (Normal) Range: 0.0-3.2 LDL Cholesterol Calc 111 mg/dL (Abnormal) Range: 0-99 VLDL Cholesterol Hillary 31 mg/dL (Normal) Range: 5-40 HDL Cholesterol 53 mg/dL (Normal) Comments: According to ATP-III Guidelines, HDL-C >59 mg/dL is considered anegative risk factor for CHD. Triglycerides 156 mg/dL (Abnormal) Range: 0-149 Cholesterol, Total 195 mg/dL (Normal) Range: 100-199 :52 HEPATIC FUNCTION PANEL (65061) Comments: PATIENT WAS FASTINGPERFORMED BY: [employer] Gxahan5937 [facility] [id number] ALT (SGPT) 17 [iU]/L (Normal) Range: 0-32 AST (SGOT) 23 [iU]/L (Normal) Range: 0-40 Alkaline Phosphatase, S 57 [iU]/L (Normal) Range: 39-117 Bilirubin, Direct 0.08 mg/dL (Normal) Range: 0.00-0.40 Bilirubin, Total 0.3 mg/dL (Normal) Range: 0.0-1.2 Albumin, Serum 4.3 g/dL (Normal) Range: 3.6-4.8 Protein, Total, Serum 7.2 g/dL (Normal) Range: 6.0-8.5 :52 CALCIFEDIOL (75888) Comments: PATIENT WAS FASTINGPERFORMED BY: [facility] Orthopedic TechnologiesJennifer [place] 5348570 [facility] [id number] Vitamin D, 25-Hydroxy 13.8 ng/mL (Abnormal) Range: 30.0-100.0 Comments: Vitamin D deficiency has been defined by the [place] ofMedicine and an Endocrine Society practice guideline as alevel of serum 25-OH vitamin D less than 20 ng/mL (1,2).The Endocrine Society went on to further define vitamin Dinsufficiency as a level between 21 and 29 ng/mL (2).1. IOM ([place] of Medicine). 2010. Dietary reference intakes for calcium and D. [place]: The National Academies Press.2. Azael MF, Leslee LEMON, Hillary PHILLIPS, et al. Evaluation, treatment, and prevention of vitamin D deficiency: an Endocrine Society clinical practice guideline. JCEM. 2010; 96(7):1911-30. 28-Oxp-817563:38 Blood Glucose , Office (53453) Blood Glucose , Office 114 (Normal) 20-Hzl-242378:38 HgA1C , Office (85447) HgA1C , Office 5.8 % (Normal) Range: 4.6 - 7.1 29-Lam-166955:23 Urinalysis, Office (03871) UA - BILIRUBIN Negative (Normal) UA - BLOOD Hemolyzed Trace (Normal) UA - GLUCOSE Negative (Normal) UA - KETONES Negative mg/dL (Normal) UA - LEUKOCYTE ESTERASE Small (Normal) UA - NITRITE Negative (Normal) UA - PH 5.0 (Normal) UA - PROTEIN Negative mg/dL (Normal) UA - SPECIFIC GRAVITY 1.025 (Normal) URINE UROBILINGN SHARIFA TIMED Normal mg/dL (Normal) 26-Wsj-484344:50 Metabolic Panel, Basic Comments: PATIENT NOT FASTINGPERFORMED BY: [facility]6370 [facility] [id number] Information: [id number] (69192) Calcium, Serum 9.9 mg/dL (Normal) Range: 8.6-10.2 [...] Glucose, Serum 84 mg/dL (Normal) Range: 65-99 94-Gzj-054150:39 BRAIN WITHOUT CONTRAST Radiology Report See Note [...] Sweeney M.D.July 12, 2013 at 4:19:02 PM [id number] Signed PV/PV If you are the referring physician and would like to consult with theradiologist who provided this interpretation, please contact Petrona molina M.D. at [phone]. If this radiologist is unavailable, youwillbe directed to another radiologist to assist. If you are a patient with a question regarding this report, pleasecontactyour referring physician directly. Professional Interpretation Provided By: Rossolini, Phone , These documents contain legally protected [...] MDaTranscribed on 07/12/131620 by ITS IMPORTSign by Fantasma PROCTOR,Petrona on 07/12/131621 Sign by: Petrona Meek MD 6-Xkq-843534:39 CRE GFRAA 45 mL/min (Abnormal) GFR 37 mL/min (Abnormal) CREAT 1.5 mg/dL (Abnormal) Range: 0.6-1.0 :30 CRECLR Comments: 07-05-13 @ 830AMEND 07-06-13 @ 830AM CCREU [...] BY: [facility]Lgsygy7097 [facility] [id number] Information: [id number] (03118) Calcium, Serum 9.7 mg/dL (Normal) Range: 8.6-10.2 [...] Glucose, Serum 109 mg/dL (Abnormal) Range: 65-99 29-Rnw-10717:50 Metabolic Panel, Basic Comments: PATIENT NOT FASTINGPERFORMED BY: TAXI5.plNovant Health [facility] [id number] Information: [id number] (06091) Calcium, Serum 9.5 mg/dL (Normal) Range: 8.6-10.2 [...] (Abnormal) Range: 65-99 :29 HgA1C , Office (25900) HgA1C , Office 5.7 % (Normal) Range: 4.6 - 7.1 15-Gaw-119656:14 TSH (60883) Comments: PATIENT NOT FASTINGPERFORMED BY: [facility] Orthopedic TechnologiesJefferson [facility])Ixiagm4486 [facility] [id number] TSH 2.850 {uIU/mL} (Normal) Range: 0.450-4.500 83-Oyn-211161:14 CBC, Platelets & Auto Comments: PATIENT NOT FASTINGPERFORMED BY: EMIL [employer] Kjklhj9277 [address] [facility] [id number] Information: [id number] Diff (32094) Immature Grans (Abs) 0.0 {x10E3/uL} (Normal) Range: [...] 3.77-5.28 WBC 7.5 {x10E3/uL} (Normal) Range: 4.0-10.5 17-Ars-510583:14 Metabolic Panel, Comprehensive Comments: PATIENT NOT FASTINGPERFORMED BY: [facility]Etuayz4497 [facility] [id number] (80873) ALT (SGPT) 19 [iU]/L (Normal) Range: 0-32 [...] Glucose, Serum 105 mg/dL (Abnormal) Range: 65-99 05-Fex-914427:06 URINE VERÓNICA CULTURE-SHARIFA COL Comments: PATIENT NOT FASTINGPERFORMED BY: [facility]6370 [facility] [id number] Information: SRC:UR ADD [id number] COUNT (43358) Antimicrobial MIHEAD (Normal) Comments: S = Susceptible; [...] mL (Normal) Urine Final report Culture,Comprehensive (Normal) 70-Wce-446247:09 Urinalysis, Office (79077) UA - BILIRUBIN Negative (Normal) UA - BLOOD Hemolyzed Moderate (Normal) UA - GLUCOSE Negative (Normal) UA - KETONES Negative mg/dL (Normal) UA - LEUKOCYTE ESTERASE Small (Normal) UA - NITRITE Negative (Normal) UA - PH 6.0 (Normal) UA - PROTEIN Negative mg/dL (Normal) UA - SPECIFIC GRAVITY 1.005 (Normal) URINE UROBILINGN SHARIFA TIMED 2 mg/dL (Normal) 4-Mrz-670219:04 Renal function Panel Comments: PATIENT NOT FASTINGPERFORMED BY: [facility] Pdtkkr0718 [facility] [id number] Information: [id number] (36875) Albumin, Serum 4.1 g/dL (Normal) Range: 3.6-4.8 [...] Glucose, Serum 110 mg/dL (Abnormal) Range: 65-99 40-Fny-236662:22 CALCIFEDIOL (60824) Comments: PATIENT NOT FASTINGPERFORMED BY: CB [facility] Iubbdt2785 [address] RoadDublin [place] [id number] Vitamin D, 25-Hydroxy 16.7 ng/mL (Abnormal) Range: 30.0-100.0 Comments: Vitamin D deficiency has been defined by the [place] ofA[facility] Orr[facility] Hospitalcine and an Endocrine Society practice guideline as alevel of serum 25-OH vitamin D less than 20 ng/mL (1,2).The Endocrine Society went on to further define vitamin Dinsufficiency as a level between 21 and 29 ng/mL (2).1. IOM ([place] of Medicine). 2010. Dietary reference intakes for calcium and D. [place]: The National Academies Press.2. Azael MF, Leslee LEMON, Hillary PHILLIPS, et al. Evaluation, treatment, and prevention of vitamin D deficiency: an Endocrine Society clinical practice guideline. JCEM. 2010; 96(7):1911-30. 35-Xku-614394:22 MAGNESIUM (60141) Comments: PATIENT NOT FASTINGPERFORMED BY: CB [facility] Euwete6176 [address] RoadDublin [place] [id number] Magnesium, Serum 2.3 mg/dL (Normal) Range: 1.6-2.6 41-Sez-311655:22 T4, FREE (THYROXINE) (92106) Comments: PATIENT NOT FASTINGPERFORMED BY: CB [facility] Rmtksj6528 [address] RoadDublin [place] [id number] T4,Free(Direct) 1.50 ng/dL (Normal) Range: 0.82-1.77 50-Gem-799314:22 T3, FREE (TRIDOTHYRONINE) (63914) Comments: PATIENT NOT FASTINGPERFORMED BY: CB [facility] Jewbmm4443 [address] RoadDublin [place] [id number] Triiodothyronine,Free,Serum 2.6 pg/mL (Normal) Range: 2.0-4.4 24-Ubu-236304:22 TSH (72011) Comments: PATIENT NOT FASTINGPERFORMED BY: CB [facility] Fucnls1051 [address] RoadDublin [place] [id number] TSH 1.920 {uIU/mL} (Normal) Range: 0.450-4.500 :22 CBC, Platelets & Auto Comments: PATIENT NOT FASTINGPERFORMED BY: EMIL [employer]70 [facility] [id number] Information: [id number] Diff (99606) Immature Grans (Abs) 0.0 {x10E3/uL} (Normal) Range: [...] 3.77-5.28 WBC 8.5 {x10E3/uL} (Normal) Range: 4.0-10.5 16-Nin-613078:22 Metabolic Panel, Comprehensive Comments: PATIENT NOT FASTINGPERFORMED BY: EMIL Recondo6370 [facility] [id number] (51083) ALT (SGPT) 21 [iU]/L (Normal) Range: 0-32 [...] Glucose, Serum 97 mg/dL (Normal) Range: 65-99 9-Gpp-687746:20 METABOLIC PANEL, COMPREHENSIVE Comments: PATIENT WAS FASTINGPERFORMED BY: [facility]6370 [facility] [id number] (03567) ALT (SGPT) 19 [iU]/L (Normal) Range: 0-32 [...] Glucose, Serum 102 mg/dL (Abnormal) Range: 65-99 5-Cpl-149848:20 CBC WITH MANUAL DIFF Comments: PATIENT WAS FASTINGPERFORMED BY: [facility] Sztrxk3073 [facility] [id number] Information: [id number] (83873) Immature Grans (Abs) 0.0 {x10E3/uL} (Normal) Range: [...] 3.77-5.28 WBC 7.4 {x10E3/uL} (Normal) Range: 3.4-10.8 9-Oon-841806:20 LIPID PANEL (27600) Comments: PATIENT WAS FASTINGPERFORMED BY: [facility] [id number] LDL/HDL Ratio 2.0 {ratio_units} (Normal) Range: 0.0-3.2 LDL Cholesterol Calc 109 mg/dL (Abnormal) Range: 0-99 VLDL Cholesterol Hillary 35 mg/dL (Normal) Range: 5-40 HDL Cholesterol 54 mg/dL (Normal) Comments: According to ATP-III Guidelines, HDL-C >59 mg/dL is considered anegative risk factor for CHD. Triglycerides 175 mg/dL (Abnormal) Range: 0-149 Cholesterol, Total 198 mg/dL (Normal) Range: 100-199 3-Qym-273442:20 TSH (47991) Comments: PATIENT WAS FASTINGPERFORMED BY: [employer] Ittamb1141 [facility] [id number] TSH 2.720 {uIU/mL} (Normal) Range: 0.450-4.500 77-Obi-096265:22 HgA1C , Office (84331) HgA1C , Office 6.0 % (Normal) Range: 4.6 - 7.1 78-Pde-845378:22 Blood Glucose , Office (47343) Blood Glucose , Office 249 (Normal) Comments: has eaten in last 2h 24-Amn-139837:20 CHEST, PA AND LATERAL Radiology Report See [...] abdomen. IMPRESSION:No acute abnormality is seen. Signed:Anibal aLn M.D.November 022012 at 8:14:34 AM [id number] Signed GP/GP If you are the referring physician and would like to consult with theradiologist who provided this interpretation, please contact Eliecer Bui M.D. at [phone]. If this radiologist is unavailable, youwill be directed to another radiologist to assist. If you are a patient with a question regarding this report, pleasecontactyour referring physician directly. Professional Interpretation Provided By: Rossolini, Phone , These documents contain legally protected [...] the return or destructionofthese documents. Dictated on 11/21/121716 by Isiah Donahue MDranscribed on 11/22/12817 by ITS IMPORTSign by Anibal Lan MD on 01/22/13 0818 Sign by: Anibal Lan MD 67-Cco-08441:19 VERÓNICA CULTURE-OTHER (77456) Comments: PATIENT NOT FASTINGPERFORMED BY: [employer] Pdyduf2913 [facility] [id number] Information: SRC:THRT [id number] Result 1 RRF (Normal) Comments: Routine respiratory duyen Upper Respiratory Culture Final report (Normal) 93-Xcr-837120:33 Rapid Strep Test, Office (74537) Rapid Strep Test, Office Negative (Normal) 9-Nau-316742:50 Celiac Disease Comprehensive Comments: PERFORMED BY: [employer] [facility] [id number] Immunoglobulin A, Qn, 364 mg/dL (Normal) Range: [...] Potassium, Serum 4.0 mmol/L Comments: PERFORMED BY: LVL66370 [facility] [id number] 4:50 (Normal) Range: 3.5-5.2 1-Fvt-791186:30 CBCMD ANC 3.7 3/uL (Normal) Range: 2.0-7.7 [...] 4.2-5.4 WBC 7.0 {k/mm3} (Normal) Range: 4.4-11.0 3-Rcj-171113:30 CMP GAP 11 (Normal) Range: 5-15 CO2 [...] 7-18 GLU 93 mg/dL (Normal) Range: 70-110 9-Otc-492374:30 LIPID LDL 108 mg/dL (Normal) Range: 0-130 [...] Very High > or = 500 mg/dL 0-Mbn-259518:30 MIACRE MIALB 5.8 mg/L (Normal) tMICROCREAT 9.5 {mg/g_CRE} (Normal) CREU 60.7 mg/dL (Normal) 4-Kja-128004:30 TSH 0.75 {uIU/mL} (Normal) Range: 0.358-3.74 :54 HgA1C , Office (55995) HgA1C , Office 5.5 % (Normal) Range: 4.6 - 7.1 :54 Blood Glucose , Office (24988) Blood Glucose , Office 116 (Normal) 92-Zdk-763461:26 URINE VERÓNICA CULTURE-SHARIFA COL Comments: PATIENT NOT FASTINGPERFORMED BY: [facility] Imhtkz8403 [facility] [id number] Information: SRC:UR [id number] COUNT (35789) Result 1 MUG (Normal) Comments: Mixed urogenital flora50,000-100,000 colony forming units per mL Urine Final report (Normal) Culture,Comprehensive 97-Gnz-205411:46 Urinalysis, Office (29665) UA - BILIRUBIN Small (Normal) UA - BLOOD Hemolyzed Small (Normal) UA - GLUCOSE Negative (Normal) UA - KETONES Small mg/dL (Normal) UA - LEUKOCYTE ESTERASE Moderate (Normal) UA - NITRITE Negative (Normal) UA - PH 6.0 (Normal) UA - PROTEIN Trace mg/dL (Normal) UA - SPECIFIC GRAVITY 1.025 (Normal) URINE UROBILINGN SHARIFA TIMED Normal mg/dL (Normal) 25-Znn-414381:55 CHEST, PA AND LATERAL Radiology Report See Note (Normal) Comments: PROCEDURE: X-RAY CHEST REASON FOR EXAM: Female, 61 years old. Cough and shortness of breathforone week. TECHNIQUE: PA and lateral views of the chest. COMPARISON: Comparison is made with prior s lita dated September. FINDINGS: The lungs are hyper [...] radiologist regarding this report, please call our [id number] line @ Dictated on 1518 by Isiah Lan MDranscribed on 11/23/11 161 by ITS IMPORTSign by Anibal Lan MD on 11/23/11 161 Sign by: Anibal Lan MD 17-Bcy-72749:51 Urinalysis, Office (90393) UA - BILIRUBIN Negative (Normal) UA - BLOOD Hemolyzed Small (Normal) UA - GLUCOSE Negative (Normal) UA - KETONES Negative mg/dL (Normal) UA - LEUKOCYTE ESTERASE Large (Normal) UA - NITRITE Negative (Normal) UA - PH 7.0 (Normal) UA - PROTEIN Negative mg/dL (Normal) UA - SPECIFIC GRAVITY 1.020 (Normal) URINE UROBILINGN SHARIFA TIMED 2 mg/dL (Normal) :51 HgA1C , Office (26577) HgA1C , Office 6.2 % (Normal) Range: 4.6 - 7.1 :50 Blood Glucose , Office (94545) Blood Glucose , Office 119 (Normal) :55 Urinalysis, Office (98903) UA - BILIRUBIN Negative (Normal) UA - [...] Ultrasound evaluation of the right upper quadrant [facility] with real-time ultrasonography and static grayscale [...] Muscle) 13 {Units} (Normal) Comments: PERFORMED BY: [employer] [facility] [id number] Antibody Range: 0-19 Comments: Negative 0 - 19 Weak positive 20 - 30 Moderate to strong positive >30 . Actin Antibodies are found in 52-85% of patients with autoimmune hepatitis or chronic active hepatitis and in 22% of patients with primary biliary cirrhosis. :58 Antinuclear Antibodies Direct Comments: PERFORMED BY: [employer]70 [facility] [id number] GAYATRI Direct Negative (Normal) :5 Ceruloplasmin 31.6 mg/dL (Normal) Comments: PERFORMED BY: [employer] [facility] [id number] Range: 16.0-45.0 :5 Ferritin, Serum 440 ng/mL (Abnormal) Comments: PERFORMED BY: [employer] [facility] [id number] Range: 13-150 :58 Hepatitis Panel (4) Comments: PERFORMED BY: [employer] [facility] [id number] Hep C Virus Ab 0.1 {s/co_ratio} (Normal) [...] (Normal) Hep A Ab, IgM Negative (Normal) 98-Qat-60281:58 Iron and TIBC Comments: PERFORMED BY: [employer] [facility] [id number] Iron Saturation 37 % (Normal) Range: 15-55 Iron, Serum 96 ug/dL (Normal) Range: 35-155 UIBC 163 ug/dL (Normal) Range: 150-375 Iron Bind.Cap.(TIBC) 259 ug/dL (Normal) Range: 250-450 :58 Platelet Count on Citrated Comments: PERFORMED BY: [employer] [facility] [id number] Bld Plt Count, Citrated Bld 216 {X10E3/uL} Range: 140-415 (Normal) 11-Jun-2011 Written Authorization WAR (Normal) Comments: PERFORMED BY: [employer] [facility] [id number] 9:58 Comments: Written Authorization Received.Authorization received from [facility] [id number] by Elina Swain :30 HgA1C , Office (99720) HgA1C , Office 6.7 % (Normal) Range: 4.6 - 7.1 :30 Blood Glucose , Office (85345) Blood Glucose , Office 159 (Normal) :15 METABOLIC PANEL, COMPREHENSIVE Comments: PATIENT WAS FASTINGPERFORMED BY: [id number] [facility] [id number] (68925) ALT (SGPT) 51 [iU]/L (Abnormal) Range: 0-40 [...] mg/dL (Abnormal) Range: 65-99 :15 LIPID PANEL (66370) Comments: PATIENT WAS FASTINGPERFORMED BY: [facility] [id number] LDL/HDL Ratio 1.8 {ratio_units} (Normal) Range: 0.0-3.2 [...] MANUAL DIFF Comments: PATIENT WAS FASTINGPERFORMED BY: [facility] [id number] Information: [id number] (02267) Immature Grans (Abs) 0.0 {x10E3/uL} (Normal) Range: [...] 3.80-5.10 WBC 8.3 {x10E3/uL} (Normal) Range: 4.0-10.5 51-Lps-107759:26 Hepatic Function Panel (7) Comments: PERFORMED BY: [facility]6370 [facility] [id number] ALT (SGPT) 63 [iU]/L (Abnormal) Range: 0-40 Alkaline Phosphatase, S 63 [iU]/L (Normal) Range: 25-165 AST (SGOT) 53 [iU]/L (Abnormal) Range: 0-40 Bilirubin, Direct 0.13 mg/dL (Normal) Range: 0.00-0.40 Bilirubin, Total 0.4 mg/dL (Normal) Range: 0.0-1.2 Albumin, Serum 4.5 g/dL (Normal) Range: 3.6-4.8 Protein, Total, Serum 7.8 g/dL (Normal) Range: 6.0-8.5 26-Xbw-045277:26 Hepatitis Panel (4) Comments: [facility]FORMED BY: [facility] [id number] Hep C Virus Ab <0.1 {s/co_ratio} (Normal) [...] (Normal) Hep A Ab, IgM Negative (Normal) 2-Rwq-829828:04 LIVER D BILI 0.11 mg/dL (Normal) Range: 0.00-0.30 T BILI 0.30 mg/dL (Normal) Range: 0.00-1.00 ALK P 57 U/L (Normal) Range: 50-136 ALT 68 U/L (Normal) Range: 12-78 ALB 4.0 g/dL (Normal) Range: 3.4-5.0 AST 53 U/L (Abnormal) Range: 15-37 T PROT 8.0 g/dL (Normal) Range: 6.4-8.2 :59 HgA1C , Office (79078) HgA1C , Office 6.6 % (Normal) Range: 4.6 - 7.1 :59 Blood Glucose , Office (25628) Blood Glucose , Office 124 (Normal) :17 HgA1C , Office (78960) HgA1C , Office 6.4 % (Normal) Range: 4.6 - 7.1 :17 Blood Glucose , Office (24579) Blood Glucose , Office 141 (Normal) 59-Bta-874736:17 Hemoglobin Glyclated (HGB A1C) Comments: PATIENT WAS FASTINGPERFORMED BY: [facility] [id number] (20376) Hemoglobin A1c 6.0 % (Abnormal) Range: 4.8-5.6 Comments: Increased risk for diabetes: 5.7 - 6.4 Diabetes: >6.4 Glycemic control for adults with diabetes: <7.0 93-Vze-972977:17 MICROALBUMIN: CREATININE RATIO Comments: PATIENT WAS FASTINGPERFORMED BY: [facility]Jeff[facility]Uyyjyh3686 [facility] [id number] (08473) AND (78997) Microalb/Creat Ratio 2.9 {mg/g_creat} (Normal) Range: 0.0-30.0 Creatinine, Urine 49.0 mg/dL (Normal) Range: 15.0-278.0 Microalbumin, Urine 1.4 ug/mL (Normal) Range: 0.0-17.0 19-Yac-795510:17 METABOLIC PANEL, COMPREHENSIVE Comments: PATIENT WAS FASTINGPERFORMED BY: [facility] [id number] (38975) Alkaline Phosphatase, S 61 [iU]/L (Normal) Range: [...] Age Male Female <18 years 9 - 27 9 - 25 18 - 39 years 8 - 8 - 40 - 59 years 9 - 9 - 60 years and older 11 - 26 Creatinine, Serum 1.32 mg/dL (Abnormal) Range: 0.57-1.00 [...] Glucose, Serum 116 mg/dL (Abnormal) Range: 65-99 00-Guc-901237:17 LIPID PANEL (02530) Comments: PATIENT WAS FASTINGPERFORMED BY: [facility]Qxjojr8205 [facility] [id number] LDL/HDL Ratio 2.2 {ratio_units} (Normal) Range: 0.0-3.2 HDL Cholesterol 50 mg/dL (Normal) Comments: According to ATP-III Guidelines, HDL-C >59 mg/dL is considered anegative risk factor for CHD. LDL Cholesterol Calc 109 mg/dL (Abnormal) Range: 0-99 VLDL Cholesterol Hillary 56 mg/dL (Abnormal) Range: 5-40 Cholesterol, Total 215 mg/dL (Abnormal) Range: 100-199 Triglycerides 282 mg/dL (Abnormal) Range: 0-149 :17 CBC WITH MANUAL DIFF (51516) Comments: PATIENT WAS FASTINGPERFORMED BY: [facility] TechnologiesJeff[facility]Zraisi9320 [facility] [id number] Immature Grans (Abs) 0.0 {x10E3/uL} (Normal) Range: [...] 3.80-5.10 WBC 8.6 {x10E3/uL} (Normal) Range: 4.0-10.5 15-Ful-771243:57 Folic Acid Serum (53860) Comments: PATIENT NOT FASTINGPERFORMED BY: [facility]Trfhxi0982 [facility] [id number] Folate (Folic Acid), Serum 12.6 ng/mL (Normal) Comments: Indeterminate: 2.2 - 3.0Deficient: <2.2 13-Uif-764287:57 Vitamin B-12 (cyanocobalamin) Comments: PATIENT NOT FASTINGPERFORMED BY: [facility]Xejieg1555 [facility] [id number] (04807) Vitamin B12 551 pg/mL (Normal) Range: 211-946 42-Xbr-318362:57 CBC with manual diff Comments: PATIENT NOT FASTINGPERFORMED BY: [facility])Vsldco8187 [facility] [id number] Information: [id number] (97904) Baso (Absolute) 0.1 {x10E3/uL} (Normal) Range: 0.0-0.2 [...] 3.80-5.10 WBC 9.4 {x10E3/uL} (Normal) Range: 4.0-10.5 :57 Metabolic Panel, Comprehensive Comments: PATIENT NOT FASTINGPERFORMED BY: [facility]Hflhvw9989 [facility] [id number] (53535) ALT (SGPT) 18 [iU]/L (Normal) Range: 0-40 [...] mg/dL (Abnormal) Range: 65-99 :57 DRUG ASSAY-LITHIUM (54416) Comments: PATIENT NOT FASTINGPERFORMED BY: [facility]6370 [facility] [id number] Rotonda (Eskalith), Serum 1.0 mmol/L (Normal) Range: 0.6-1.4 Comments: Detection Limit = 0.1<0.1 indicates None Detected :57 T4, FREE (THYROXINE) (67294) Comments: PATIENT NOT FASTINGPERFORMED BY: [place] 3228970 [facility] [id number] T4,Free(Direct) 1.17 ng/dL (Normal) Range: 0.82-1.77 :57 T3, FREE (TRIDOTHYRONINE) (66900) Comments: PATIENT NOT FASTINGPERFORMED BY: [facility]6370 [facility] [id number] Triiodothyronine,Free,Serum 2.1 pg/mL (Normal) Range: 2.0-4.4 :57 TSH (33778) Comments: PATIENT NOT FASTINGPERFORMED BY: [facility]6370 [facility] [id number] TSH 4.080 {uIU/mL} (Normal) Range: 0.450-4.500 :43 HgA1C , Office (08166) HgA1C , Office 5.3 % (Normal) Range: 4.6 - 7.1 :43 Blood Glucose , Office (33392) Blood Glucose , Office 125 (Normal) :4 [...] 136-145 GLU 84 mg/dL (Normal) Range: 70-110 20-Tld-998666:42 LI 0.60 mmol/L (Normal) Comments: Therapeutic Range: 0.60 - 1.20 43-Epx-899911:58 Thin prep Pap Comments: Source.............Cervical;EndocervicalNo. of containers..01 CYTYC Thin Prep VialPATIENT NOT FASTINGPERFORMED BY: Lab[address] [id number] Information: [id number] (55487) Note: PAPSMR (Normal) Comments: The Pap smear [...] cases of atrophy.V 72.31 ; Routine gynecological examinationiRta Gonzalez [employer] (ASCP) 36-Fmo-864778:00 TSH (64840) Comments: PATIENT NOT FASTINGPERFORMED BY: [facility]6370 [facility] [id number] TSH 3.440 {uIU/mL} (Normal) Range: 0.450-4.500 82-Fwj-150809:00 CBC (Auto) (36874) Comments: PATIENT NOT FASTINGPERFORMED BY: [facility]6370 [facility] [id number] Information: [id number] Platelets 258 {x10E3/uL} (Normal) Range: 140-415 RDW 13.6 % (Normal) Range: 11.7-15.0 Hematocrit 43.5 % (Normal) Range: 34.0-44.0 MCH 31.6 pg (Normal) Range: 27.0-34.0 MCHC 33.6 g/dL (Normal) Range: 32.0-36.0 MCV 94 fL (Normal) Range: 80-98 Hemoglobin 14.6 g/dL (Normal) Range: 11.5-15.0 RBC 4.61 {x10E6/uL} (Normal) Range: 3.80-5.10 WBC 8.6 {x10E3/uL} (Normal) Range: 4.0-10.5 21-Gem-388534:00 Metabolic Panel, Basic Comments: PATIENT NOT FASTINGPERFORMED BY: LabCoRe[facility] Care ServicesPzdamz6120 [facility] HospitalSky StorageNovant [facility] [id number] (44503) Calcium, Serum 9.1 mg/dL (Normal) Range: 8.6-10.2 [...] Glucose, Serum 111 mg/dL (Abnormal) Range: 65-99 29-Zme-139918:00 DRUG ASSAY-LITHIUM (51585) Comments: all these labs standing order prn; PATIENT NOT FASTINGPERFORMED BY: [facility]Mebklx6042 [facility] [id number] Rotonda (Eskalith), Serum 0.9 mmol/L (Normal) Range: 0.6-1.4 Comments: Detection Limit = 0.1<0.1 indicates None Detected 55-Jgo-57906:16 METABOLIC PANEL, COMPREHENSIVE Comments: PATIENT NOT FASTINGPERFORMED BY: EMIL [facility])Eefujd4476 [facility] [id number] (91300) A/G Ratio 1.3 (Normal) Range: 1.1-2.5 Alkaline [...] Glucose, Serum 207 mg/dL (Abnormal) Range: 65-99 :16 CBC WITH MANUAL DIFF Comments: PATIENT NOT FASTINGPERFORMED BY: [facility]6370 [facility] [id number] Information: [id number] (90950) Baso (Absolute) 0.1 {x10E3/uL} (Normal) Range: 0.0-0.2 [...] CREATININE RATIO Comments: PATIENT NOT FASTINGPERFORMED BY: [facility]6370 [facility] [id number] (73617) AND (62819) Microalb/Creat Ratio 6.2 {mg/g_creat} (Normal) Range: 0.0-30.0 Microalbumin, Urine 2.5 ug/mL (Normal) Range: 0.0-17.0 Creatinine, Urine 40.1 mg/dL (Normal) Range: 15.0-278.0 :38 HgA1C , Office (24231) HgA1C , Office 6.6 % (Normal) Range: 4.6 - 7.1 :38 Blood Glucose , Office (98318) Blood Glucose , Office 214 (Normal) 76-Gco-212732:05 URINE VERÓNICA CULTURE-IDENTIFICATN Comments: PATIENT NOT FASTINGPERFORMED BY: [facility])Yoyngl6350 [facility] [id number] Information: [id number] (20951) Antimicrobial MIHEAD (Normal) Comments: S = Susceptible; [...] mL (Normal) Urine Final report (Normal) Culture,Comprehensive 49-Cgv-589088:23 CHEST, PA AND LATERAL (MT) Radiology Report See Note (Normal) Comments: Exam Number: [id number] CLINICAL:58-year-old female with cough, pain and shortness [...] :23 B.pertussisB.parapertussis PCR Comments: PERFORMED BY: ELIESER WnnbIhk5945 [facility] [id number] Bordetella parapertussis DNA Negative (Normal) Comments: .This test was developed and its performance characteristics determinedby [employer]. It has not been cleared or approved by theU.S. Food and Drug Administration. The FDA has determined that s uchclearance or approval is not necessary. This test is used for clinicalpurposes. It should not be regarded as investigational or research. Bordetella pertussis DNA Negative (Normal) :50 HgA1C , Office (95126) HgA1C , Office 5.5 % (Normal) Range: 4.6 - 7.1 :50 Blood Glucose , Office (28232) Blood Glucose , Office 90 (Normal) :33 HgA1C , Office (98178) HgA1C , Office 5.6 % (Normal) Range: 4.6 - 7.1 :41 HgA1C , Office (81379) HgA1C , Office 5.5 % (Normal) Range: 4.6 - 7.1 Comments: aw :41 Blood Glucose , Office (88137) Comments: 89 Blood Glucose , Office 89 [...] (Normal) Range: 0.34-4.82 :42 HgA1C , Office (00619) HgA1C , Office 5.4 % (Normal) Range: 4.6 - 7.1 :42 Blood Glucose , Office (49309) Blood Glucose , Office 103 (Normal) :20 [...] T PROT 8.0 g/dL (Normal) Range: 6.4-8.2 55-Lpk-308337:20 LIPID CHOL 148 mg/dL (Normal) Comments: <200 [...] mg/dL VLDL 30 mg/dL (Normal) Range: 5-40 31-Bhh-045318:20 ROUTINE UA BILIRUBIN URINE SeeNote (Normal) Comments: [...] 0.2 EU/dl (Normal) Range: 0.2 - 1.0 :06 THYROID (HP) Radiology Report See Note (Normal) Comments: Exam Number: [id number] THYROID ULTRASOUND HISTORYGoiter. There is borderline increase [...] 03, 2007. Reported By: PETRONA REGALADO M.D. 11-Yug-19581:20 MAMM, UILAT DIAG DIGITAL & CAD Radiology Report See Note (Normal) Comments: Exam Number: [id number] UNILATERAL LEFT DIAGNOSTIC MAMMOGRAPHY CLINICAL STATEMENTLeft breast [...] The mammogramswere also examined with computer-aided detection software([employer].). Reported By: REID KRUEGER M.D. 3-Zzg-015194: TSH 0.94 {uIU/mL} Range: 0.34-4.82 50 (Normal) :06 MAMM, BILAT SCRN DIGITAL & CAD Radiology Report See Note (Normal) Comments: Exam Number: [id number] MAMMOGRAM, BILATERAL SCREENING DIGITAL AND CAD HISTORYRoutine [...] was rendered by a radiologist certified under [facility] Quality Standards Act of 1992 (MQSA). The mammograms werealso examined with computer-aided detection software ([employer], [employer] Reported By: PETRONA REGALADO M.D. :05 THYROID (HP) Radiology Report See Note (Normal) Comments: Exam Number: [id number] THYROID ULTRASOUND HISTORYGoiter. High resolution real time [...] 6 months. Reported By: PETRONA REGALADO M.D. 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 Indication: Stress incontinence, female Diabetes mellitus [...] acute Planned Observations VITAMIN B12 AND FOLATES (92432)Indication: Neuropathic pain On: :08 Request Blood Glucose , Office (56863)Indication: Diabetes mellitus type II, controlled On: 17-Uta-99446:04 Request LIPID PANEL (72966)Indication: Neuropathic pain On: :54 Request Blood Glucose , Office (96349)Indication: Diabetes mellitus type II, controlled On: 02-Nov-20178:55 Request D-Dimer (87521)Indication: Shortness of breath On: 85-Dvg-621747:19 Request Metabolic Panel, Comprehensive (44165)Indication: Diabetes mellitus type II, controlled On: 14-Ist-764493:19 Request Comments: Nov 2017 LIPID PANEL (34707)Indication: Diabetes mellitus type II, controlled On: 71-Zbf-971539:19 Request Comments: Nov 2017 URINALYSIS (64038)Indication: Diabetes mellitus type II, controlled On: 26-Nxb-330791:19 Request Comments: Nov 2017 TSH (62405)Indication: Diabetes mellitus type II, controlled On: 72-Hzp-357823:18 Request Comments: Nov 2017 CBC, Platelets & Auto Diff (75234)Indication: Diabetes mellitus type II, controlled On: 54-Yhm-108198:18 Request Comments: Nov 2017 MICROALBUMIN: CREATININE RATIO (00541) AND (58064)Indication: Diabetes mellitus type II, controlled On: 25-Wle-982631:18 Request Comments: Nov 2017 HgA1C , Office (45361)Indication: Diabetes mellitus type II, controlled On: 50-Nkz-531836:44 Request Anaerobic & Aerobic Culture (77620)Indication: Mouth pain On: 7-Pdo-546219:11 Request Metabolic Panel, Comprehensive (10885)Indication: Chronic kidney disease (CKD), stage I On: 91-Oqr-363850:50 Request Comments: 2 weeks Metabolic Panel, Comprehensive (61711)Indication: Diabetes mellitus type II, controlled On: 92-Fja-795209:56 Request Comments: today URINALYSIS (00856)Indication: Chronic kidney disease (CKD), stage I On: 87-Ipi-096306:52 Request Comments: Jul 2017 MICROALBUMIN: CREATININE RATIO (27230) AND (82903)Indication: Chronic kidney disease (CKD), stage I On: 69-Xpu-452295:52 Request Comments: jul 2017 Lipid Panel (75076)Indication: Hypertension (Renamed from BP (high blood pressure)) On: 54-Gho-040499:52 Request Comments: Jul 2017 TSH (92161)Indication: Leg weakness On: 11-Qjm-967457:52 Request Comments: Jul 2017 CBC, Platelets & Auto Diff (29558)Indication: Leg weakness On: 16-Hix-160697:52 Request Comments: jul 2017 METABOLIC PANEL, COMPREHENSIVE (81717)Indication: Weakness On: 03-Bar-031278:55 Request METABOLIC PANEL, COMPREHENSIVE (64327)Indication: Hypokalemia On: :43 Request Comments: STAT SED RATE ERYTHROCYTE (10159)Indication: Weakness On: 15-Bpr-597051:29 Request TSH (THYROID STIMULATING HORMONE) (54540)Indication: Unspecified abnormal involuntary movements On: 67-Ggb-098281:17 Request METABOLIC PANEL, COMPREHENSIVE (45403)Indication: Unspecified abnormal involuntary movements On: :17 Request CBC, PLATELETS & AUT DIFF (62495)Indication: Unspecified abnormal involuntary movements On: 39-Plu-981623:17 Request URINE VERÓNICA CULTURE-IDENTIFICATN (98564)Indication: Weakness On: 80-Zkj-216758:07 Request Blood Glucose , Office (88516)Indication: Unspecified abnormal involuntary movements On: 41-Zhf-61277:59 Request VITAMIN B12 AND FOLATES (69423)Indication: Unspecified abnormal involuntary movements On: 13-Sux-53143:57 Request SPEP (52685)Indication: Elevated serum creatinine On: 87-Fgg-221649:31 Request CALCIFIDIOL (07533) VIT D 25Indication: Vitamin D deficiency (Renamed from Avitaminosis D) On: :27 Request TSH (03739)Indication: Hypothyroidism On: : Request MICROALBUMIN: CREATININE RATIO (98006) AND (43159)Indication: Diabetes mellitus type II, controlled On: :27 Request METABOLIC PANEL, COMPREHENSIVE (77375)Indication: Diabetes mellitus type II, controlled On: :27 Request LIPID PANEL (75721)Indication: Diabetes mellitus type II, controlled On: :27 Request CBC with auto diff (97152)Indication: Diabetes mellitus type II, controlled On: :27 Request CALCIFIDIOL (98286) VIT D 25Indication: Vitamin D deficiency (Renamed from Avitaminosis D) On: 22-Xkq-527586:15 Request Comments: in three months (approximately) METABOLIC PANEL, COMPREHENSIVE (56791)Indication: Diabetes mellitus type II, controlled On: 40-Tnh-996446:15 Request Comments: in three months (approximately) SODIUM URINE (89328)Indication: Hyponatremia On: :51 Request OSMOLALITY URINE (11614)Indication: Hyponatremia On: :50 Request OSMOLALITY BLOOD (02905)Indication: Hyponatremia On: :50 Request ASSAY, TROPONIN, QUANTITATIVE (aka Troponin I) (10107)Indication: Chest pain On: :40 Request Comments: stat D-Dimer (39572)Indication: Chest pain On: :40 Request Comments: stat TSH (27311)Indication: Chest pain On: :40 Request CBC WITH MANUAL DIFF (27479)Indication: Chest pain On: :40 Request METABOLIC PANEL, COMPREHENSIVE (72865)Indication: Chest pain On: 30-Hqi-949638:40 Request URINE VERÓNICA CULTURE (SHARIFA COL COUNT) (57255)Indication: Dysuria (Renamed from Difficult or painful urination) On: 52-Lgi-243089:24 Request Metabolic Panel, Comprehensive (35514)Indication: Hypertension (Renamed from BP (high blood pressure)) On: 09-Nki-456962:56 Request Metabolic Panel, Basic (94594)Indication: Elevated LFTs On: 77-Mcb-651297:16 Request 24 hour urine for Protein (44358)Indication: Elevated serum creatinine On: 13-Lmv-083576:40 Request Comments: recheck in one week CREATININE CLEARANCE (90361)Indication: Elevated serum creatinine On: 90-Yff-433754:39 Request Comments: recheck in one week Blood Glucose , Office (73862)Indication: Diabetes mellitus type II, controlled On: 50-Chy-38926:29 Request METABOLIC PANEL, COMPREHENSIVE (92688)Indication: Hypokalemia (Renamed from Decreased potassium in the blood) On: 46-Trm-727777:52 Request MICROALBUMIN: CREATININE RATIO (09475) AND (95650)Indication: Diabetes mellitus type II, controlled On: 95-Fvu-658977:14 Request FLURESCNT ANTIB SCRN EA (60535) celiac profileIndication: Irritable bowel syndrome (Renamed from Functional bowel disease) On: 5-Htr-080988:58 Request IMMUNOASSAY, ANALYTE (NON-INFECT) (87240) celiac profileIndication: Irritable bowel syndrome (Renamed from Functional bowel disease) On: 9-Stc-060979:58 Request IGA/IGD/IGG/IGM-EACH (50182) celiac profileIndication: Irritable bowel syndrome (Renamed from Functional bowel disease) On: 8-Smd-742395:58 Request Potassium Serum (43590)Indication: Hypokalemia (Renamed from Decreased potassium in the blood) On: 7-Gee-765209:58 Request Celiac Disease Comphrehensive Profile (92641)Indication: Irritable bowel syndrome (Renamed from Functional bowel disease) On: 04-Nov-20129:56 Request METABOLIC PANEL, COMPREHENSIVE (32943)Indication: Diabetes mellitus type II, controlled On: 23-Pmk-357580:32 Request LIPID PANEL (38877)Indication: Diabetes mellitus type II, controlled On: 11-Luv-235543:32 Request CBC WITH MANUAL DIFF (73615)Indication: Diabetes mellitus type II, controlled On: 90-Bpn-117255:32 Request MICROALBUMIN: CREATININE RATIO (61998) AND (04439)Indication: Diabetes mellitus type II, controlled On: 19-Gpd-980141:32 Request TSH (58118)Indication: Hypothyroidism On: 66-Joc-102094:32 Request TSH (04626)Indication: Hypothyroidism On: 51-Njj-429787:26 Request MICROALBUMIN: CREATININE RATIO (08304) AND (98458)Indication: Diabetes mellitus type II, controlled On: 20-Awg-833115: Request METABOLIC PANEL, COMPREHENSIVE (72719)Indication: Diabetes mellitus type II, controlled On: : Request LIPID PANEL (58564)Indication: Diabetes mellitus type II, controlled On: :26 Request CBC WITH MANUAL DIFF (20403)Indication: Diabetes mellitus type II, controlled On: 14-Gwi-043264:26 Request URINE VERÓNICA CULTURE-SHARIFA COL COUNT (95377)Indication: Dysuria (Renamed from Difficult or painful urination) On: 92-Acd-020088:15 Request URINE VERÓNICA CULTURE-SHARIFA COL COUNT (61458)Indication: Dysuria (Renamed from Difficult or painful urination) On: 65-Slv-952846:55 Request Ferritin (89992)Indication: Elevated LFTs On: 50-Adp-378216:50 Request Comments: repeat now per Dr. Cabral with iron level Iron Binding Capacity (TIBC) (03322)Indication: Elevated LFTs On: :50 Request Iron (90861)Indication: Elevated LFTs On: :49 Request CBC (Auto) (20860)Indication: Thrombocytopenia, unspecified On: :01 Request Comments: nonclumping tube HEPATITIS PANEL (03355)Indication: Elevated LFTs On: : Request FERRITIN (90089)Indication: Elevated LFTs On: 27-Hyj-521651:00 Request CERULOPLASMIN (82650)Indication: Elevated LFTs On: 68-Nhh-861871:00 Request ASM (ANTI SMOOTH MUSCLE ANTIBODY) (81300)Indication: Elevated LFTs On: 81-Rdm-969245:00 Request GAYATRI (ANTINUCLEAR ANTIBODY) (84852)Indication: Elevated LFTs On: 99-Rie-668595:00 Request HEPATITIS PANEL (50346)Indication: Elevated LFTs On: :01 Request TSH (34498)Indication: Hypothyroidism On: 01-Uro-061445:16 Request LIPID PANEL (96768)Indication: Diabetes mellitus type II, controlled On: 34-Etb-480940:15 Request DRUG ASSAY-LITHIUM (97969)Indication: Bipolar affective disorder, mixed On: 05-Ipl-746294:14 Request Metabolic Panel, Basic (60197)Indication: Bipolar affective disorder, mixed On: 92-Byd-875312:13 Request Metabolic Panel, Basic (88568)Indication: Bipolar affective disorder, mixed On: 28-Bmy-520614:22 Request DRUG ASSAY-LITHIUM (78363)Indication: Bipolar affective disorder, mixed On: 21-Wdn-539169:22 Request Comments: 2 months Urinalysis, Office (06736)Indication: Urinary frequency On: 92-Jyg-559714:27 Request Comments: done pms HEPATIC FUNCTION PANEL (33319)Indication: Other and unspecified hyperlipidemia On: 8-Fel-701494:45 Request Lipid Panel (22787)Indication: Other and unspecified hyperlipidemia On: 4-Fww-931964:45 Request Lipid Panel (02679)Indication: Other and unspecified hyperlipidemia On: 40-Hfe-365348:17 Request CBC, Platelets & Auto Diff (46238)Indication: Other and unspecified hyperlipidemia On: :17 Request Metabolic Panel, Comprehensive (81509)Indication: Other and unspecified hyperlipidemia On: :17 Request TSH (93175)Indication: Hypothyroidism On: 36-Zyq-479864:15 Request Metabolic Panel, Basic (89195)Indication: Other and unspecified hyperlipidemia On: :55 Request Lipid Panel (24998)Indication: Other and unspecified hyperlipidemia On: :55 Request Comments: in three months (approximately) CBC (Auto) (08996)Indication: Intestinal disaccharidase deficiencies and disaccharide malabsorption On: :56 Request Metabolic Panel, Comprehensive (28065)Indication: Intestinal disaccharidase deficiencies and disaccharide malabsorption On: :56 Request Lipid Panel ([id number])Indication: Intestinal disaccharidase deficiencies and disaccharide malabsorption On: :56 Request Comments: in three months (approximately) MICROALBUMIN 24 HOUR OR RANDOM On: 06-Yfe-004386:04 Request ([id number]) CREATININE CLEARANCE ([id number]) On: 21-Nvv-802328:03 Request CBC (Auto) ([id number])Indication: Unspecified disorder of kidney and ureter On: :53 Request Lipid Panel ([id number])Indication: Unspecified disorder of kidney and ureter On: :53 Request Metabolic Panel, Comprehensive ([id number])Indication: Unspecified disorder of kidney and ureter On: :53 Request TSH ([id number])Indication: Hypothyroidism On: :53 Request TSH ([id number])Indication: Hypothyroidism On: 58-Bcb-864016:18 Request URINALYSIS ([id number])Indication: Intestinal disaccharidase deficiencies and disaccharide malabsorption On: :43 Request CBC (Auto) ([id number])Indication: Intestinal disaccharidase deficiencies and disaccharide malabsorption On: 02-Yzw-347287:43 Request Lipid Panel ([id number])Indication: Intestinal disaccharidase deficiencies and disaccharide malabsorption On: 37-Ovg-214227:43 Request Metabolic Panel, Comprehensive ([id number])Indication: Intestinal disaccharidase deficiencies and disaccharide malabsorption On: :43 Request Planned Procedures COMPUTED TOMOGRAPHY ANGIOGRAPHY OF On: 01-Aug-2018 Intent CHEST FOR PULMONARY EMBOLISM Comments: stat for PE ([id number])By: Eli Bowman CNP, CNP, Mary E Echo CompleteBy: Eli Bowman CNP On: 29-Jul-2018 Intent Eli Bowman CNP Spirometry ([id number])By: Colby WATTERS, On: 29-Jul-2018 Intent Eli Mcelroy CNP Holter Monitor 24 hrsBy: Colby WATTERS, On: 29-Jul-2018 Intent Eli Mcelroy CNP CHEST XRAY, PA & LATERAL ([id number])By: On: 29-Jul-2018 Intent Eli Bowman CNP, CNP, Mary E ELECTROCARDIOGRAM, COMPLETE (ECG) On: 29-Jul-2018 Intent ([id number])By: Eli Bowman CNP Comments: sinus rhythm Eli WATTERS Aerosol Treatment ([id number])By: Colby On: 29-Jul-2018 Intent Eli WATTERS CNP, Mary E Flu Vaccine (Quadrivalent) 42435Dt: On: 22-Jul-2018 Intent Tejal Ceron Comments: Lot #[id number] dltd, IMDose prefilled syringegiven by: Rosalie Ceron MA Toradol Injection, 30 mg ([id number])By: On: 09-May-2018 Intent Nunu Root Comments: lot [id number] 12/2029mgIMleft gmas, EMERGENCY MANAGEMENT CONSULTANT SCREENING DIGITAL TOMOSYNTHESIS OF On: 18-Apr-2018 Intent BREAST ([id number])By: Eli Bowman CNPesa INVESTMENT COUNSELOR, Elif DEXA SCAN AXIAL SKELETON ([id number])By: On: 18-Apr-2018 Intent Eli Bowman CNP E Eli Bowman CNP Toradol Injection, 30 mg ([id number])By: On: 22-Mar-2018 Intent Nunu Root Comments: toradol 30mg injection lot:[id number]:10/2019R GMpt tolerated wellMSMITH,EMERGENCY MANAGEMENT CONSULTANT COMPLETE ELECTROMYOGRAPHY (EMG) WITH On: 22-Mar-2018 Intent NERVE CONDUCTION STUDIES OF EACH Comments: Bilateral lower legs EXTREMITY ([id number])By: Nunu Root EMGBy: Eli Bowman CNP, CNP, On: 03-Jan-2018 Intent Eli Lubin Comments: both legs Nerve ConductionBy: Eli Bowman CNP On: 03-Jan-2018 Intent E Eli Bowman CNP Comments: both legs Toradol Injection, 30 mg ([id number])By: On: 23-Dec-2017 Intent Mayda Dobbins DO Comments: toradol 30mg injectionlot: [id number]: 06/2018L GMpt tolerated wellAD EMERGENCY MANAGEMENT CONSULTANT Spirometry ([id number])By: Dk, On: 16-Nov-2017 Intent Nunu Comments: Normal spirometry Aerosol Treatment ([id number])By: Shilpi On: 30-Aug-2017 Mayda Bailey DO Comments: less noise with forced exp Solu- Medrol Injection, 125mg On: 30-Aug-2017 Intent ([id number])By: Mayda Dobbins DO Comments: solumedrol 125mg injectionlot: [id number]: 12/2019R GMpt tolerated wellAD EMERGENCY MANAGEMENT CONSULTANT Radiology - Chest- PA and LatBy: On: 30-Aug-2017 Intent Mayda Dobbins DO Solu- Medrol Injection, 125mg On: 26-Aug-2017 Intent ([id number])By: Mayda Dobbins DO Comments: solumedrol 125mg injectionlot: [id number]: 12/2019L GMpt tolerated wellAD EMERGENCY MANAGEMENT CONSULTANT Aerosol Treatment ([id number])By: Shilpi On: 26-Aug-2017 Mayda Bailey DO Comments: [place] Spirometry ([id number])By: Shilpi COLEMAN, On: 26-Aug-2017 Intent Mayda Comments: mild obstruction Radiology - Shoulder - RightBy: On: 20-Jul-2017 Intent Edita Cabral MD Radiology - Lumbar SpineBy: Misha On: 20-Jul-2017 Intent Edita PROCTOR DRAIN/INJECT MAJOR JOINT OR BURSA On: 13-Apr-2017 Intent ([id number])By: Eli Bowman CNP Comments: injevted left knee today JANENE, Eli Lubin PHYSICAL THERAPY ([id number])By: Dk On: 08-Apr-2017 Intent Nunu Radiology - Knee - RightBy: Dk, On: 08-Apr-2017 Intent Nunu Radiology - Knee - LeftBy: Dk, On: 08-Apr-2017 Intent Nunu ATTENDED SLEEP STUDY ([id number])By: On: 18-Jan-2017 Intent Eli Bowman CNP, CNP, Mary E DEXA SCAN AXIAL SKELETON ([id number])By: On: 24-Nov-2016 Intent Donnie Gonzales MD MAMMOGRAM, SCREENING, BOTH BREAST On: 24-Nov-2016 Intent ([id number])By: Donnie Gonzales MD US KIDNEY COMPLETE ([id number])By: Janet On: 16-Jul-2016 Intent Donnie PROCTOR EsophagramBy: Edita Cabral MD On: 06-Feb-2016 Intent Comments: 12mm tablet X-RAY EXAM OF ESOPHAGUS ([id number]) - On: 04-Feb-2016 Intent Barium Swallow with 12mm tabletBy: Donnie Gonzales MD Carotid DopplerBy: Edita Cabral MD On: 16-Sep-2015 Intent M TD VACCINE ADULT ([id number])By: Misha On: 16-Sep-2015 Intent Edita PROCTOR TDAP VACCINE >7 IM ([id number])By: On: 16-Sep-2015 Intent Edita Cabral MD Pap Smear, Medicare ([id number])By: On: 16-Sep-2015 Intent Edita Cabral MD MAMMOGRAM, SCREENING, BOTH BREAST On: 16-Sep-2015 Intent ([id number])By: Edita Cabral MD Renal Artery DopplerBy: Misha PROCTOR, On: 04-Feb-2015 Intent Edita Clinton Ultrasound - RenalBy: Misha PROCTOR, On: 04-Feb-2015 Intent Edita Clinton DEXA SCAN AXIAL SKELETON ([id number])By: On: 17-Jan-2015 Intent Edita Cabral MD Comments: postmenapausal MAMMOGRAM, SCREENING, BOTH BREAST On: 17-Jan-2015 Intent ([id number])By: Edita Cabral MD Radiology - Shoulder - [...] with back pain- stat call results Spirometry ([id number])By: Thee COLEMAN, On: 30-Apr-2014 Intent Erna Schaefer Comments: good effort and curve normal ELECTROCARDIOGRAM, COMPLETE (ECG) On: 30-Apr-2014 Intent ([id number])By: Erna Kingston DO Eprescribed prescriptions ([id number])By: On: 12-Feb-2014 Intent Edita Cabral MD SPECIMEN HANDLING/TRANSPORT On: 15-Jan-2014 Intent ([id number])By: Eli Bowman CNP, CNP, Mary E Eprescribed prescriptions ([id number])By: On: 11-Oct-2013 Intent Nunu Stephens LPN ADMINISTRATION OF INFLUENZA VIRUS On: 24-Jul-2013 Intent VACCINE ([id number])By: Edita Cabral MD FLU VAC, SPLIT, >3 YEARS, INTRAMUSC On: 24-Jul-2013 Intent ([id number])By: Edita Cabral MD Echo CompleteBy: Edita Cabral MD On: 27-Jun-2013 Intent Carotid DopplerBy: Edita Cabral MD On: 27-Jun-2013 Intent M Eprescribed prescriptions ([id number])By: On: 27-Jun-2013 Intent Teressa Molina LPN MRI - BrainBy: Eli Bowman CNP On: 16-Jun-2013 Intent Eli Bowman CNP SPECIMEN HANDLING/TRANSPORT On: 16-May-2013 Intent ([id number])By: Sue Ewing LPN Holter Monitor 24 hrsBy: Colby WATTERS, On: 28-Apr-2013 Intent Eli Mcelroy CNP ELECTROCARDIOGRAM, COMPLETE (ECG) On: 28-Apr-2013 Intent ([id number])By: Colby WATTERS Eli Lubin Colby Comments: sinus bradycardia Eli WATTERS Bio Z ([id number])By: Colby JANENE Eli Lubin On: 28-Apr-2013 Intent Eli Bowman CNP EKG ([id number])By: Edita Cabral MD On: 28-Mar-2013 Intent Comments: see scanned document of test done to see results reviewed today with patient Eprescribed prescriptions ([id number])By: On: 28-Mar-2013 Intent Teressa Molina LPN Eprescribed prescriptions ([id number])By: On: 08-Dec-2012 Intent Nunu Stephens LPN Spirometry ([id number])By: Shilpi COLEMAN, On: 25-Nov-2012 Intent Mayda Comments: Computer not running so not able to perform test Aerosol Treatment ([id number])By: Shilpi On: 25-Nov-2012 Mayda Bailey DO Spirometry ([id number])By: Thee COLEMAN, On: 21-Nov-2012 Intent Erna A Comments: good effort and curve normal Radiology - Chest- PA and LatBy: On: 21-Nov-2012 Intent Erna Kingston DO Eprescribed prescriptions ([id number])By: On: 21-Nov-2012 Intent Makayla Dillard LPN ADMINISTRATION OF PNEUMOCOCCAL On: 31-Oct-2012 Intent VACCINE ([id number])By: Edita Cabral MD Comments: Lot #[id number]/14Site-right deltoidDose0.5mlgiven by: [facility] per fax. M PNEUM VAC ADLT/IMUMNOSPR, SBC/INTRM On: 31-Oct-2012 Intent ([id number])By: Jodi Carvalho LPN Eprescribed prescriptions ([id number])By: On: 18-Oct-2012 Intent Teressa Molina LPN L FLU VAC, SPLIT, >3 YEARS, INTRAMUSC On: 01-Jul-2012 Intent ([id number])By: Eli Bowman CNP Comments: Lot:[id number]:6.13Amt:prefilled syringeSite: L Dltd, IMGiven by: MERRY TorresVIS joy WATTERS, Elif ADMINISTRATION OF INFLUENZA VIRUS On: 01-Jul-2012 Intent VACCINE ([id number])By: Colby WATTERS ElifAmee Bowman CNP Elif SPECIMEN HANDLING/TRANSPORT On: 01-Jul-2012 Intent ([id number])By: Sue Ewing LPN Solu -Medrol Injection, 125 mg On: 23-Nov-2011 Intent ([id number])By: Edita Cabral MD Comments: Lot [id number]-R hip, IMDose 125mggiven by:Teressa Radiology - ChestBy: Misha PROCTOR, On: 23-Nov-2011 Intent Edita Clinton Comments: wet read Pulse Oximetry ([id number])By: Benoit On: 23-Nov-2011 Intent AKBAR Aerosol Treatment (35712)By: Colby On: 16-Nov-2011 Intent Eli WATTERS CNP Elif Pulse Oximetry (70198)By: Vin On: 16-Nov-2011 Intent Lynn Comments: 93 FLU VAC, SPLIT, >3 YEARS, INTRAMUSC On: 16-Nov-2011 Intent (03487)By: Lynn Banuelos Comments: received at work SPECIMEN HANDLING/TRANSPORT On: 14-Sep-2011 Intent ([id number])By: Edita Cabral MD SPECIMEN HANDLING/TRANSPORT On: 26-Aug-2011 Intent ([id number])By: Sue Ewing LPN Ultrasound - LiverBy: Misha PROCTOR, On: 11-Jun-2011 Intent Edita Clinton EKG (17033)By: Edita Cabral MD On: 16-Feb-2011 Intent MAMMOGRAM, SCREENING, BOTH BREASTS On: 13-Mar-2010 Intent ([id number])By: Edita Cabral MD MAMMOGRAM, SCREENING, BOTH BREASTS On: 06-Mar-2010 Intent ([id number])By: Edita Cabral MD MAMMOGRAM, SCREENING, BOTH BREASTS On: 13-Feb-2010 Intent ([id number])By: Edita Cabral MD Spirometry ([id number])By: Misha PROCTOR, On: 01-Oct-2009 Intent Edita Clinton ELECTROCARDIOGRAM, COMPLETE (ECG) On: 01-Oct-2009 Intent ([id number])By: Edita Cabral MD Pulse Oximetry (60089)By: Benoit, On: 01-Oct-2009 Intent AKBAR Spirometry ([id number])By: Thee COLEMAN, On: 30-Jul-2009 Intent Erna Schaefer Comments: good effort and curve normal Radiology - Chest- PA and LatBy: On: 30-Jul-2009 Intent Erna Kingston DO Pulse Oximetry ([id number])By: Vin, On: 30-Jul-2009 Intent Lynn Comments: 94%repeat 97-98 EKG (15043)By: Erna Kingston DO On: 14-Jul-2009 Intent Comments: ekg showed normal sinus rhythym, normal axis, no acute st/t wave changes old t wave inversion noted on previous ekg Pulse Oximetry ([id number])By: Vin On: 11-Jul-2009 Intent Lynn Comments: 97% Solu -Medrol Injection, 125 mg On: 09-Jul-2009 Intent ([id number])By: Erna Kingston DO Comments: Lot #:[id number] date:mount given:125mgRoute:IM Site given:left buttockGiven by: MARIA DOLORES Cordon Aerosol Treatment ([id number])By: Thee On: 09-Jul-2009 Erna Bailey DO Pulse Oximetry ([id number])By: Thee COLEMAN On: 09-Jul-2009 Intent Erna Schaefer Comments: repeat after treatment was 96 Pulse Oximetry ([id number])By: Vin On: 09-Jul-2009 Intent Lynn Comments: 93% Spirometry (25316)By: Gildardo SOUSA, On: 25-Jan-2009 Intent Sue MAMMOGRAM, SCREENING, BOTH BREASTS On: 29-May-2008 Intent ([id number])By: Edita Cabral MD EKG (43780)By: Edita Cabral MD On: 29-May-2008 Intent Spirometry (52185)By: Misha PROCTOR, On: 27-Dec-2007 Intent Edita Clinton Ultrasound - ThyroidBy: Misha PROCTOR, On: 22-Mar-2007 Intent Edita Clinton MAMMOGRAM, SCREENING, BOTH BREASTS On: 22-Mar-2007 Intent ([id number])By: Edita Cabral MD MAMMOGRAM, SCREENING, BOTH BREASTS On: 22-Mar-2007 Intent ([id number])By: Edita Cabral MD ELECTROCARDIOGRAM, COMPLETE (ECG) On: 22-Mar-2007 Intent (73592)By: Edita Cabral MD Planned Medications INJECTION, KETOROLAC [...] UP TO 125 MG Ordered: 26-Aug-2017 Pending Shilpi COLEMAN Mayda INJECTION, METHYLPREDNISOLONE SODIUM SUCCINATE, UP TO 125 [...] disease, bilateral : DISCONTINUED - POTASSIUM SERUM (94786) Indication: Active Meniere's disease, bilateral Elevated LFTs : DISCONTINUED - HEPATIC FUNCTION PANEL (82530) Indication: Elevated LFTs Diabetes mellitus type II, [...] reveiwing printed for pt to take to [facility] , [ADDITIONAL REASON] Weight Gain - Note [...] in ER on 12-29 after eating at [employer] and choking on a piece of potatoe had th End: 04-Jan-2017 11:17 amee hilario then went to urgent care, told to go to ER at [facility] diagnosed with Esophagitis was given [...] occurred following a specific injury (lifting at [employer] for years but no fall). The injury [...] Encounter Diagnosis: Group beta Strep positive End: 7-Mar-2016 12:06 [facility] Office Visit On: [...] bathroom. The patient has completed the f [facility] preventative measures: PAP smear (needs updated ), mammography (needs updated ) and colonoscopy (needs updated however patient refuse to have done bc she was hospitalized with the last one with infection for 5 days ). The patient does have durable power of cardiac rehab nurse and living will. The patient has noticed [...] for Tdap vaccination (Renamed from Need for [id number] (Tdap) vaccine, adult/adolescent), Goiter (Renamed from [place] [...] (240.9), Hypothyroidism(244.9) [facility] Payers [employer] [place] [employer] Lilly Toro; a guarantor
--- OUTSIDE RECORDS SUMMARY | 2018-11-25 14:57 | XMS RPT_ITS | Continuity of Care Document ---
:1950 Author Organization [facility] Address [address] [place] [address] Phone Care Team Providers Name Role Phone Colby JANENEEli E Unavailable Mina Baer MD Unavailable Nhung Duval Unavailable [facility], [facility] Unavailable Kasi Scott Unavailable Mariia Zhang Unavailable Dr. Junior Pena Unavailable Navdeep Fox Unavailable Elie Russo Unavailable Tanphaichitr - Bauer, Aaron Unavailable Be Middleton Unavailable MD Tyrone, Génesis Unavailable Damion Alas Unavailable Sisi Perez Unavailable MERRY Stephens Unavailable Unavailable Paul Weathers Unavailable Unavailable Caitlin Delaney Unavailable Unavailable Mayda Dobbins DO Unavailable Esme Guo Unavailable Unavailable Phyllis Saez [...] disease (CKD), stage I (N18.1, 585.1) Comments: Repeat-2016 1.45(GFR 38, so back to baseline)Dr Henry [...] nasal cpap Status: Active Osteoarthritis (M19.90, 715.90) Status: Active Osteoarthritis of both knees, unspecified osteoarthritis type (M17.0, 715.96) Status: Active Osteoarthritis of both knees, unspecified osteoarthritis type (M17.0, 715.96) Status: Active Pain in both knees, unspecified chronicity (M25.561, 719.46) Status: Active Polyneuropathy (G62.9, 356.9) Comments: currently on 100mg tid increase to 200mg tid Status: Active Polypharmacy (Z79.899, V58.69) Comments: multiple meds but pt unsure what they are, pt sent home to bring meds in with bottles, extensive review with nurse and [facility], med list updated Status: Active Postmenopausal (Renamed from Postmenopausal status) (Z78.0, V49.81) Status: Active Pregnancies () Comments: 2 Status: Active S/P hysterectomy (Z90.710, V88.01) Comments: for endometrial hyperplasia 2015 Status: Active Shortness of breath (R06.02, 786.05) Status: Active Sleep apnea (G47.30, 780.57) Comments: needs repeat sleep study at [facility] per [facility] to get back on cpap Status: [...] using it , needs readjustment, refer to [facility] uterine bleeding X2 months, Dr Brush doing hystrectomy on 06/22/16Diabetes :on victoza, blood [...] Ativan 1 MG Oral Tablet 1 Tablet take one qod x 3 days x 2 weeks, then q5 days x 2 weeks then dc for 0 days Quantity: 30 {Tablet} Refills: 0 Ordered:16-Sep-2018 Eli Bowman CNP, CNP, Mary E Start : 16-Sep-2018 Active Comments:Thirty OARRS Reviewed B12 Active BD [...] Caitlin Delaney Start : 29-Jul-2018 Active Ergocalciferol 85461 UNIT Oral Capsule 1 Capsule twice weekly for 0 days Quantity: 24 {Capsule} Refills: 0 Ordered:23-Jun-2018 Eli Bowman CNP, CNP Elif Start : 23-Jun-2018 Active Gabapentin 100 MG Oral Capsule 3 (three) Capsule tid for 0 days Quantity: 180 {Capsule} Refills: 11 Ordered:22-Apr-2018 Mayda Dobbins DO Start : 22-Apr-2018 Active Comments:Oarrs reviewedDx M54.5 180 LORazepam 1 MG Oral Tablet 1 (one) Tablet 1 daily prn anxiety for 30 days Quantity: 30 {Tablet} Refills: 0 Ordered:28-Sep-2018 Eli Bowman CNP, CNP Elif Start : 28-Sep-2018 Active Comments:ThirtyOarrs run Fill after Oct 05 Metoprolol Succinate ER 25 MG Oral Tablet Extended Release 24 Hour 1/2 Tablet daily for 0 days Quantity: 45 {Tablet} Refills: 3 Ordered:26-Jun-2018 Eli Bowman CNP, CNP Eli Lubin Start : 26-Jun-2018 End : 18-Jan-2018 Active Oxybutynin Chloride ER 15 MG Oral Tablet Extended Release 24 Hour one tablet daily (15 MG) Active Comments:Catrachito Pen [place] 3/16 31G X 5 MM Miscellaneous 1 (one) Misc Misc qd with Victoza for 0 days Quantity: 1 {Box} Refills: 3 Ordered:03-Feb-2018 Edita Cabral MD Start : 19-Jan-2018 Active ProAir HFA 108 (90 Base) MCG/ACT Inhalation Aerosol Solution 1-2 puffs Aerosol Soln every four hours, as needed for 30 days Quantity: 1 {Box} Refills: 3 Ordered:29-Jul-2018 Eli Bowman CNP, CNP Elif Start : 29-Jul-2018 Active Comments:Medication taken as needed. PROzac 40 MG Oral Capsule 2 (two) Capsule qd for 90 days Quantity: 180 {Capsule} Refills: 3 Ordered:18-Apr-2018 Ciesa DAIRY CLERK, Eli Roman CNP Start : 18-Apr-2018 Active Symbicort 80-4.5 MCG/ACT Inhalation Aerosol 1 (one) Puff Puff bid for 0 days Quantity: 1 {Inhaler} Refills: 0 Ordered:02-Sep-2017 Nunu Stephens LPN Start : 30-Aug-2017 Active Synthroid 75 MCG Oral Tablet uad Tablet qd except 1 1/2 on Sundays for 90 days Quantity: 102 {Tablet} Refills: 1 Ordered:20-Jul-2018 Colby WATTERS, Eli Roman CNP Start : 20-Jul-2018 Active Victoza 18 MG/3ML Subcutaneous Solution Pen-injector 1 (one) Soln Pen-inj 0.6 mg SC daily for 0 days Quantity: 1 {Each} Refills: 6 Ordered:02-Nov-2017 Colby WATTERS, Eli Roman CNP Start : 02-Nov-2017 Active Comments:with needles ZyPREXA 10 MG Oral Tablet 1 Tablet at night for 0 days Quantity: 90 {Tablet} Refills: 1 Ordered:26-Jul-2018 Colby WATTERS, Eli Roman CNP Start : 26-Jul-2018 Active ABILIFY, 15MG (Oral Tablet) Tablet qhs / HS for 0 days Quantity: 30 {Tablet} Refills: 6 Ordered:25-Sep-2009 AKBAR South Start : 25-Sep-2009 Inactive Comments:instead of the 5mg 3 tablets a day breathing issues Amoxicillin 875 MG Oral Tablet 1 (one) Tablet bid for 10 days Quantity: 20 {Tablet} Refills: 0 Ordered:01-Aug-2018 Colby WATTERS, Eli Roman CNP Start : 01-Aug-2018 End : 11-Aug-2018 Inactive [...] days Quantity: 28 {Tablet} Refills: 0 Ordered:06-Jan-2016 Eli Bowman CNP, CNP Elif Start : 06-Jan-2016 End : 20-Jan-2016 Inactive AZITHROMYCIN, 250MG (Oral Tablet) 2 (two) Tablet today then 1 qd for 4 days for 0 days Quantity: 6 {Tablet} Refills: 0 Ordered:08-Dec-2012 Nunu Stephens LPN Start : 21-Nov-2012 End : 08-Dec-2012 Inactive BACTRIM DS, 800-160MG (Oral Tablet) 1 Tablet bid for 7 days Quantity: 14 {Tablet} Refills: 0 Ordered:16-May-2013 Eli Bowman CNP, CNP Elif Start : 16-May-2013 End : 23-May-2013 Inactive Cheratussin AC 100-10 MG/5ML Oral Syrup 1 Teaspoon(s) qhs prn cough for 0 days Quantity: 8 {Fluid_Ounce} Refills: 0 Ordered:16-Jun-2016 Priya Gillette Start : 12-Mar-2016 End : 16-Jun-2016 Inactive Comments:eight CIPRO, 500MG (Oral Tablet) 1 Tablet bid for 7 days Quantity: 14 {Tablet} Refills: 0 Ordered:15-Jan-2014 Eli Bowman CNP, CNP Elif Start : 15-Jan-2014 End : 22-Jan-2014 [...] : 07-Nov-2012 End : 12-Feb-2014 Inactive Drisdol 31856 UNIT Oral Capsule 1 (one) Capsule once week for 90 days Quantity: 12 {Capsule} Refills: 1 Ordered:03-Jan-2018 Naomi Hassan LPN Start : 10-Aug-2017 End : 03-Jan-2018 [...] days Quantity: 20 {Capsule} Refills: 0 Ordered:26-Aug-2011 Eli Bowman CNP, CNP, Elif Start : 26-Aug-2011 End : 05-Sep-2011 Inactive Maxzide 75-50 MG Oral Tablet 1 (one) Tablet qd for 90 days Quantity: 90 {Tablet} Refills: 0 Ordered:23-Apr-2017 Colby WATTERS, Eli Yanez CNP, Elif Start : 23-Apr-2017 End : 22-Jul-2017 [...] : 29-Jul-2010 End : 30-Sep-2010 Inactive Nystatin 805355 UNIT/ML Mouth/Throat Suspension 4-6 Milliliter swish and [...] 13-Oct-2016 End : 12-Oct-2017 Inactive Potassium Chloride Mareln ER 20 MEQ Oral Tablet Extended Release [...] : 12-Dec-2015 End : 16-Jun-2016 Inactive Comments:per [facility] er Topamax 100 MG Oral Tablet [...] 03-Jan-2018 Inactive Comments:1 rambo as directed ZOSTAVAX, 22508WKR/0.65ML (Subcutaneous Solution Reconstituted) 1 For Solution once [...] Start : 04-Jan-2017 End : 04-Jan-2017 Discontinued Comments:[facility] er FLEXERIL, 10MG (Oral Tablet) 1 [...] : 13-Nov-2013 End : 13-Nov-2013 Discontinued Comments:ID [id number] Medrol 4 MG Oral Tablet Therapy Pack [...] Refills: 1 Ordered:04-Jan-2017 Eli Bowman CNP, CNP, Eli Lubin Start : 04-Jan-2017 End : 04-Jan-2017 Discontinued [...] 18-Jan-2017 End : 27-Jul-2017 Discontinued Vitamin D3 00901 UNIT Oral Tablet 1 (one) Tablet Tablet once a week for 60 days Quantity: 8 {Tablet} Refills: 0 Ordered:04-Jan-2017 Naomi Hassan LPN Start : 24-Nov-2016 End : 04-Jan-2017 Discontinued [...] for Tdap vaccination (Renamed from Need for xuxuqqztwg-yxlzbag-sixarwnea (Tdap) vaccine, adult/adolescent) (Z23, V06.1) Status: Inactive as of 12-Dec-2015 Other and unspecified hyperlipidemia (E78.5, 272.4) Status: Inactive as of 24-Jul-2013 Pharyngitis, acute (J02.9, 462) Comments: rapid strep negativeCulture Status: Inactive as of 20-Jan-2016 Pneumonitis (J18.9, 486) Status: Inactive as of 14-May-2014 Pre-operative exam (Renamed from Preop examination) (Z01.818, V72.84) Comments: Getting 4 tooth out 07/17 next week, [facility]HAs MARTHA has CPAP but not been using it for 2 years, need to see Ana for retitration.Cr : 1.77 , repeat labs, US kidneyDM type 2: HBa1c 5.4 BMI:(obesit y increase the risk of wound infection, PE.Not malnourishedLabs:CBCCMPPT/INRtype and screen gel(30353)EK06/10/16: no acute changesHas good social support and [...] under good control Patient to use Mucinex rqjj-xfj-msonjdo which helped her. Status: Inactive as of [...] Completed Comments: 2000 Tubal ligation 1963 Completed [facility] Left endolymphatic sac Completed decompression with shunt and middle ear infusion with decadron 03/05 Date Value Details 01-Aug-2018 CTA Chest W/WO Contrast Result: Comments: See Note; NOTES: [facility] Imaging Services [address] [place] [address] CTA Chest W/WO Contrast MR#: [id number] Acct: [id number] Name: ELIZABETH TORO Rep #: [id number] : 1950 F 67 From: Hardeep Calxi MD PCP: Eli Bowman NP Status: REG CLI Study: CTA Chest W/WO Contrast Date of Exam: 08/01/18 Exam# [id number] Ordering Dr: Eli Bowman STUDY: CTA CHEST/T [...] , CC: Eli Bowman NP Director Of Diagnostic Imaging: Signed 29-Jul-2018 Chest PA and Lateral Result: Comments: See Note; NOTES: [facility] Imaging Services [address] [place] [address] Chest PA and Lateral MR#: [id number] Acct: [id number] Name: ELIZABETH TORO Rep #: [id number] : 1950 F 67 From: Cami Klein MD PCP: Eli Bowman NP Status: REG CLI Study: Chest PA and Lateral Date of Exam: 07/29/18 Exam# [id number] Ordering Dr: Eli Bowman STUDY: X-RAY CHEST [...] , CC: Eli Bowman NP Director Of Diagnostic Imaging: Signed 21-Apr-2018 Downtime Report Result: Comments: See Note; NOTES: [facility] Medical Records Department [address] [place] [address] Downtime Report MR#: [id number] Acct: [id number] Name: ELIZABETH TORO Rep #: : 1950 67 From: Alon Klein PCP: Eli Bowman NP Status: REG RCR This patient was seen during an EMR downtime April 04, 2018 - April 11, 2018. This patient may have a combination of p aper and electronic documentation or all paper documentation. All documentation is viewable within the e-chart portion of [employer] for each patient visit. 12-Apr-2018 NCS and/or EMG Patient Result: Comments: See Note; NOTES: [facility] Pulmonary Services/Neurology [address] [place] [address] MR#: [id number] Acct: [id number] Name: ELIZABETH TORO Rep #: [id number] : 1950 67 From: Kal Hernandez MD Referring Dr: Eli Bowman NP Status: REG CLI Ordering Dr: Date: Location: [facility] Sex: F C NCS and/or [...] ____ Kal Hernandez MD CC: Eli Bowman CNC MANAGER; Kal Hernandez MD Date Dictated: 04/12/1850 Date Transcribed: 04/12/18949 Director Of Diagnostic Imaging: NF Signed 01-Feb-2018 PT D/C Summary (1) Result: Comments: See Note; NOTES: [facility] Physical Therapy [facility] [address] [place] [address]. [address] [place] [address] Fax REHABILITATION SERVICES DISCHAR GE SUMMARY MR#: [id number] Acct: [id number] Name: ELIZABETH TORO Rep #: [id number] : 1950 67 From: Cristopher Francis PT, ATC Referring DrJose: Mayda Dobbins DO Status: REG RCR Insurance: [facility] PART A B PHYSICIAN [employer] INS CO [...] please feel free to call me at [phone]. Thank you for the referral of this patient. Sincerely, Cristopher Francis, PT, <Electronically signed by Andrea Francis PT, ATC> 02/01/18 0823 CC: Eli Bowman CNC MANAGER; Mayda Dobbins DO [facility] Signed 30-Dec-2017 Inital Evaluation (1) - PT Result: Comments: See Note; NOTES: [facility] Physical Therapy [facility] [address] [place] [address]. [address] [place], [place] [address] Fax REHABILITATION SERVICES INITIAL EVALUATION MR#: [id number] Acct: [id number] Name: ELIZABETH TORO Rep #: [id number] : 1950 67 From: Cristopher Francis PT, ATC Referring Dr.: Mayda Dobbins DO Status: REG RCR Insurance: [employer] PART A B PHYSICIAN [employer] CO Patient's Visit Information ELIZABETH TORO is a 67 year old F referred to Physical Therapy by Mayda Dobbins DR.KFNADEENO with a diagnosis of LBP with radiculop athy. Date of Evaluation: 12/30/17 Physical Therapist: Cristopher Francis, PT, - Visit Plan Frequency: 2-3x /Week [...] to be FAXED BACK to us at [phone] for Medicare purposes. Please let me know if there are questions or concerns regarding this plan of care. Physician Signature: Date: <Electronically signed by Cristopher Francis PT, ATC> 12/30/17 1056 CC: Eli Bowman NP; Mayda Dobbins DT: 0 12/30/17 [facility] Signed For Medicare only, by signing this I certify the plan of care. Physicians Signature Date 08-Oct-2017 Operative Report Result: Comments: See Note; NOTES: [facility] Medical Records Department [address] [place] [address] Operative Report 10/08/172017 MR#: [id number] Acct: [id number] Name: JAYYMARTHAXAVIERREINALDO PUENTES Rep #: [id number] : 1950 67 From: Oscar Winston MD PCP: Eli Bowman NP Status: REG [facility] Y Location: [place] [address] Problem List (1) Intrinsic (urethral) sphincter deficiency [...] Discharge Instruction Result: Comments: See Note; NOTES: [facility] Medical Records Department [address] [place] [address] Instructions for Home/Discharge Instructions 10/08/171950 MR#: [id number] Acct: [id number] Name: ELIZABETH TORO Rep #: [id number] : 1950 67 From: Oscar Winston MD PCP: Eli Bowman NP Status: REG [facility] Discharge Diet: Light diet - advance as [...] and Lateral Result: Comments: See Note; NOTES: [facility] Imaging Services [address] [place] [address] Chest PA and Lateral MR#: [id number] Acct: [id number] Name: ELIZABETH TORO Rep #: [id number] : 1950 F 67 From: Yury Arthur MD PCP: Eli Bowman Status: REG CLI Study: Chest PA and Lateral Date of Exam: 08/30/17 Exam# [id number] Ordering Dr: Mayda Dobbins DO STUDY: X-RAY [...] Eli Bowman; Mayda Dobbins DO Director Of Diagnostic Imaging: Signed 20-Jul-2017 L/S Spine Min 4 Views Result: Comments: See Note; NOTES: [facility] Imaging Services [address] [place] [address] L/S Spine Min 4 Views MR#: [id number] Acct: [id number] Name: ELIZABETH TORO Rep #: [id number] : 1950 F 66 From: Dionte Lujan DO PCP: Eli Bowman Status: REG CLI Study: L/S Spine Min 4 Views Date of Exam: 07/20/17 Exam# [id number] Ordering Dr: Edita Cabral MD STUDY: X-RAY [...] Eli Bowman; Edita Cabral MD Director Of Diagnostic Imaging: Signed 20-Jul-2017 Shoulder min 2 Views Result: Comments: See Note; NOTES: [facility] Imaging Services [address] [place] [address] Shoulder min 2 Views MR#: [id number] Acct: [id number] Name: ELIZABETH TORO Rep #: [id number] : 1950 F 66 From: Dionte Lujan DO PCP: Eli Bowman Status: REG CLI Study: Shoulder min 2 Views Date of Exam: 07/20/17 Exam# [id number] Ordering Dr: Edita Cabral MD STUDY: X-RAY - RIGHT [facility] REASON FOR EXAM: Female, 66 years [...] Eli Bowman; Edita Cabral MD Director Of Diagnostic Imaging: Signed 11-May-2017 PT D/C Summary (1) Result: Comments: See Note; NOTES: [facility] Physical Therapy [facility] [address] [place], [place] [address] Fax REHABILITATION SERVICES DISCHAR GE SUMMARY MR#: [id number] Acct: [id number] Name: ELIZABETH TORO Rep #: [id number] : 1950 66 From: Naomi Osorio MPT Referring Dr.: Nunu Root Status: REG RCR [...] please feel free to call me at [phone]. Thank you for the referral of this patient. Sincerely, Naomi Osorio <Electronically signed by Naomi Osorio MPT> 09/17 0919 CC: Nunu Root; Eli Bowman Signed 14-Apr-2017 Inital Evaluation (1) - PT Result: Comments: See Note; NOTES: [facility] Physical Therapy [facility] [address] [place] [address] Fax REHABILITATION SERVICES INITIAL EVALUATION MR#: [id number] Acct: [id number] Name: ELIZABETH TORO Rep #: [id number] : 1950 66 From: Naomi COMER Referring [...] to be FAXED BACK to us at [phone] for Medicare purposes. Please let me know if there are questions or concerns regarding this plan of care. Physician Signature: Date: <Electronically signed by Naomi Osorio MPT> 04/14/17 1906 CC: Nunu Root; Eli Bowman Signed For Medicare only, by sign ing this I certify the plan of care. Physicians Signature Date 08-Apr-2017 Knee 4 or More Views Result: Comments: See Note; NOTES: [facility] Imaging Services [address] [address] Verdana 4d Knee 4 or More Views MR#: [id number] Acct: [id number] Name: ELIZABETH TORO p #: [id number] : 1950 F 66 From: Chalino Mancia MD PCP: Eli Bowman Status: REG CLI Study: Knee 4 or More Views Date of Exam: 04/08/17 Exam# [id number] Ordering Dr: Mayda Dobbins DO STUDY: X-RAY [...] Eli Bowman; Mayda Dobbins DO Director Of Diagnostic Imaging: Signed 08-Apr-2017 Knee 4 or More Views Result: Comments: See Note; NOTES: [facility] Imaging Services [address] [place] [address] Verdana 4d Knee 4 or More Views MR#: [id number] Acct: [id number] Name: ELIZABETH TORO p #: [id number] : 1950 F 66 From: Chalino Mancia MD PCP: Eli Bowman Status: REG CLI Study: Knee 4 or More Views Date of Exam: 04/08/17 Exam# [id number] Ordering Dr: Mayda Dobbins DO STUDY: X-RAY [...] Eli Bowman; Mayda Dobbins DO Director Of Diagnostic Imaging: Signed 15-Mar-2017 Sleep Study Report Result: Comments: See Note; NOTES: [facility] [address] [place] [address] Polysomnography with NCPAP MR#: [id number] Acct: [id number] Name: ELIZABETH TORO Viridiana p #: [id number] : 1950 66 From: Kal Hernandez MD [...] version). Please note that a reference to [facility] AHI in this report is consistent with the current Hypopnea definition according to Medicare Criteria and an AASM AHI reference is consistent with the current Hypopnea defini tion according to the AASM criteria and is recognized by [facility] as the RDI. PROCEDURE: The study was attended continuously by a photovoltaic fabrication technician. Monitored parameters included left and right [...] body mass index of 30.9 and an Chesapeake Sleepiness Scale score of 6. There is [...] can be requested. Kal Hernandez MD T: [facility] JOB: [id number] CC: Kal Hernandez MD 1151 1151 03/15/17 1451 <Electronically signed by Kal Hernandez MD> Date Kal Hernandez MD Co-signature (if applicable) Date Signed 05-Jan-2017 Esophagus Only Result: Comments: See Note; NOTES: [facility] Imaging Services [address] [place] [address] Verdana 4d Esophagus Only MR#: [id number] Acct: [id number] Name: ELIZABETH TORO Rep #: [id number] : 1950 F 66 From: Gabriela Ragland MD PCP: Eli Bowman Status: REG CLI Study: Esophagus Only Date of Exam: 01/05/17 Exam# [id number] Ordering Dr: Sofia Bragg MD STUDY: AIR-CONTRAST [...] , CC: Eli Bowman; Sofia Bragg MD Director Of Diagnostic Imaging: Signed 29-Dec-2016 Emergency Department Summary Result: Comments: See Note; NOTES: [facility] Medical Records Department [address] [place] [address] Emergency Department Summary MR#: [id number] Acct: [id number] Name: XAVIER TORO Rep #: [id number] : 1950 66 From: Sofia Bragg MD PCP: Eli Bowman Status: DEP ER DATE OF SERVICE: 12/29/2016 CHIEF COMPLAINT: Sore throat. HISTORY OF PRESENT ILLNESS: This is a 66-year- old woman that states she was at [employer], choked on a piece of potato 5 [...] the case with Dr. Pena who is macaroni maker for GI and he suggested ordering an [...] C: Eli Pena MD T: [facility] JOB: [id number] 12/29/16 <Electronically signed by Sofia Bragg MD> Date Sofia Bragg MD Cosigner Signature (If Indicated): Date CC: Eli Bowman; Junior Pena Date Dictated: 12/29/161828 Date Transcribed: 12/29/161828 Director Of Diagnostic Imaging: Signed 29-Dec-2016 Discharge Instruction Result: Comments: See Note; NOTES: [facility] Medical Records Department [address] [place] [address] Discharge Instruction 12/29/161829 MR#: [id number] Acct: [id number] Name: ELIZABETH TORO Rep #: [id number] : 1950 66 From: Sofia Bragg MD [...] your Primary Care Provider. Call [facility] ([phone] ) or report to the closest Emergency Room. Call 911 if necessary. 12/29/161832 <Electronically signed by Sofia Bragg MD> Date Sofia Sylvesterignmariposa Signature (If Indicated): Date CC: Eli Bowman 07-Aug-2016 Sleep Study Report Result: Comments: See Note; NOTES: [facility] [address] [place] [address] Split Night Sleep Study MR#: [id number] Acct: [id number] Name: ELIZABETH TORO Rep #: [id number] : 1950 65 From: Kal Hernandez MD [...] version). Please note that a reference to [facility] AHI in this report is consistent with the current Hypopnea definition according to Medicare Criteria and an AAS AHI reference is consistent with the current Hypopnea defin ition according to the AASM criteria and is recognized by [facility] as the RDI. PROCEDURE: The study was attended continuously by a photovoltaic fabrication technician. Monitored parameters included left and right [...] a body mass index of 29.3 and [place] Sleepiness Scale score of 2. There is a history of hypertension and previous diagnosis of obstructive sleep apnea; however, no records are avail able. There is also history of diabetes, Meniere's disease, coronary artery disease, bipolar disorder. MASK USED DURING THE STUDY: AirFit P10 extra small mask with heated humidity. SLEEP SUMMARY: Duri ng the diagnostic portion of the test, lights [...] humidity. Kal Hernandez MD T: [facility] JOB: [id number] CC : Kal Hernandez MD 1144 1144 08/07/16 0959 <Electronically signed by Kal Hernandez MD> Date Kal Hernandez MD Co-signature (if applicable) Date Signed -Aug-2016 Kidney and Bladder Result: Comments: See Note; NOTES: [facility] Imaging Services [address] [place] [address] Verdana 4d Kidney and Bladder MR#: [id number] Acct: [id number] Name: ELIZABETH TORO Rep #: [id number] : 1950 F 65 From: Anibal Lan MD PCP: Donnie Gonzales Status: [facility] Study: Kidney and Bladder Date of Exam: 08/04/16 Exam# [id number] Ordering Dr: Beto Henry MD UDY: RENAL [...] Anibal Lan MD at 11:16 EDT Tel [phone], Service support [phone], CC: Soumya Henry M.D.; Donnie Gonzales Director Of Diagnostic Imaging: Signed 23-Jun-2016 Operative Report Result: Comments: See Note; NOTES: [facility] Medical Records Department [address] [place] [address] Operative Report MR#: [id number] Acct: [id number] Name: ELIZABETH TORO Rep #: [id number] : 1950 65 From: Gm Brush MD PCP: Donnie Gonzales Status: REG [facility] DATE OF SERVICE: 06/22/2016 DATE OF PROCEDURE: June 22, 2016 SURGEON: Gm Brush M.D. MYSQL DEVELOPER: Lia jacinto. ANESTHESIA: Gem Shelby and Frank [...] ovaries. Gm Brush MD T: [facility] JOB: [id number] 06/23/16 0725 <Electronically signed by Gm Brush MD> Date __ Gm Brush MD Cosigner Signature (If Indicated): Date CC: Gm Brush MD; Donnie Nolasco Dicta nahed: 06/22/161102 Date Transcribed: 06/22/161102 Director Of Diagnostic Imaging: Signed 22-Jun-2016 Discharge Instruction Result: Comments: See Note; NOTES: [facility] Medical Records Department [address] [place] [address] Instructions for Home/Discharge Instructions 06/22/16 0904 MR#: [id number] Acct: [id number] Name: ELIZABETH TORO Rep #: [id number] : 1950 65 From: Gm Brush MD PCP: Donnie Gonzales Status: REG [facility] Discharge Diet: No Restrictions Discharge Activity: Return [...] CC: Donnie Gonzales 10-Jun-2016 ELECTROCARDIOGRAM, COMPLETE (ECG) ([id number]) Result: [MEASUREMENTS ANALYSIS] Date of Test: 06/10/2016 09:39:53; Heart Rate: 58; AK Interval: 208; QRS: 86; QT Interval: 480; Corrected QT Interval (QTc): 477; P Wave [place]: 45; QRS Wave [place]: 11; T Wave [place]: 23; Blood Pressure: 112/70 [ECG DIAGNOSTIC STATEMENTS] Date of Test: 06/10/2016 09:39:53; Summary: Sinus Bradycardia - Negative T-waves -May be normal - possible Anteroseptal ischemia. BORDERLINE 13-Apr-2016 Operative Report Result: Comments: See Note; NOTES: [facility] Medical Records Department [address] [place] [address] Operative Report MR#: [id number] Acct: [id number] Name: XAVIER TORO Rep #: [id number] : 1950 65 From: Gm Brush MD PCP: Edita Cabral MD Status[facility] DATE OF SERVICE: 04/13/2016 DATE OF PROCEDURE: [...] curettings. Gm Brush MD T: NTS JOB: [id number] 04/13/16 1838 <Electronically signed by Gm Brush MD> Date Gm Brush MD Cosigner Signature (If Indicated): Date CC: Edita Young; Gm Brush MD Date Dictated: 04/13/161030 Date Transcribed: 04/13/16 103 Director Of Diagnostic Imaging: Signed 13-Apr-2016 Discharge Instruction Result: Comments: See Note; NOTES: [facility] Medical Records Department [address] [place] [address] Instructions for Home/Discharge Instructions 04/13/16 1003 MR#: [id number] Acct: [id number] Name: ELIZABETH TORO Rep #: [id number] : 1950 65 From: Gm Brush MD PCP: Edita Cabral MD Status: REG MTC Discharge Diet: No Restrictions Discharge Activity: R [...] mg PO DAILY 04/10/16 Hydrocodone Bitart/Apap 5-325 [Burtrum 5MG-325MG] 1 tablet PO Q4H PRN PRN #10 tablet 04/13/16 The followi ng prescriptions were given: Hydrocodone Bitart/Apap 5-325 [Burtrum 5MG-325MG] 1 tablet PO Q4H PRN PRN #10 tablet PRN Reason: Mod-Severe Pain (-08/10) Please Follow Up With: Gm Brush When: 2-3 jason bowers 04/13/16 1004 <Electronically signed by Gm Brush MD> Date Gm Brush MD CC: Edita Cabral MD 22-Mar-2016 Emergency Department Summary Result: Comments: See Note; NOTES: [facility] Medical Records Department [address] [place] [address] Emergency Department Summary MR#: [id number] Acct: [id number] Name: ELIZABETH TORO Rep #: [id number] : 1950 65 From: Nando Fuller MD [...] C: Edita Brush MD T: NTS JOB: [id number] 03/22/16 0247 <Electronically signed by Nando Fuller MD&a mp;#62; Date Nando Fuller MD Cosigner Signature (If Indicated): Date CC: Edita Cabral MD; Otilia Brush MD Date Dictated: 03/21/1650 Date Transcribed: 03/21/1650 Director Of Diagnostic Imaging: Signed 21-Mar-2016 Discharge Instruction Result: Comments: See Note; NOTES: [facility] Medical Records Department [address] [place] [address] Discharge Instruction 03/21/16 0048 MR#: [id number] Acct: [id number] Name: ELIZABETH TORO Rep #: [id number] : 1950 65 From: Nando Fuller MD [...] ems, contact your doctor. Call [facility] ([phone]) or report to the closest Emergency Room. Call 911 if necessary. 03/21/16 0049 <Electronically signed by Nando Fuller MD&#6 2; Date Nando Fuller MD Cosigner Signature (If Indicated): Date CC: Edita Cabral MD 20-Mar-2016 Transvaginal Non- Result: Comments: See Note; NOTES: [facility] Imaging Services [address] [place] [address] Verdana 4d Transvaginal Non- MR#: [id number] Acct: [id number] Name: ELIZABETH DIAZ Rep #: [id number] : 1950 F 65 From: Jose Fu PCP: Edita Cabral MD Status: [facility] Study: Transvaginal Non- Date of Exam: 03/20/16 Exam# [id number] Ordering Dr: Oz Fuller MD STUDY: ULTRASOUND [...] DO at 0:42 EDT , Service support [phone], Fax CC: Edita Cabral MD; Nando Fuller MD Director Of Diagnostic Imaging: Signed 25-Feb-2016 Esophagus Only Result: Comments: See Note; NOTES: [facility] Imaging Services [address] [place] [address] Verdana 4d Esophagus Only MR#: [id number] Acct: [id number] Name: XAVIER TORO Rep #: [id number] : 1950 F 65 From: Anibal Lan MD PCP: Edita Cabral MD Status: REG CLI Study: Esophagus Only Date of Exam: 02/25/16 Exam# [id number] Ordering Dr: Donnie Gonzales STUDY: X-RAY - [...] Anibal Lan MD at 10:35 EDT Tel [phone], Service support [phone], Fax RAD/Esophagus Only IMPRESSION: Normal plain film x-ray examination (barium swallow) of the esophagus. Electronically Signed: Anibal Lan MD at 10: 35 EDT Tel [phone], Service support [phone], CC: Edita Cabral MD; Donnie Gonzales Director Of Diagnostic Imaging: Signed 25-Feb-2016 Esophagus Only Result: Comments: See Note; NOTES: [facility] Imaging Services [address] [place] [address] Verdana 4d Esophagus Only MR#: [id number] Acct: [id number] Name: XAVIER TORO Rep #: [id number] : 1950 F 65 From: Anibal Lan MD PCP: Edita Cabral MD Status: REG CLI Study: Esophagus Only Date of Exam: 02/25/16 Exam# [id number] Ordering Dr: Donnie Gonzales ADDENDUM by Anibal Lan MD on 03/31/16 at 0747 ADDENDUM This is an addendum report for PQRS purposes. 19 images were obtained. Electronically Signed: Anibal Lan MD at 7:47 EDT Tel [phone], Service support [phone], 03/31/16 0747 Date cc: Edita Cabral MD; [...] Anibal Lan MD at 10:35 EDT Tel [phone], Service support [phone], RAD/Esophagus Only IMPRESSION: Normal plain film x-ray examination (barium swallow) of the esophagus. Electronically Signed: Anibal Lan MD at 10:35 EDT Tel [phone], Service support [phone], CC: Edita Cabral MD; Donnie Gonzales Director Of Diagnostic Imaging: Signed 10-Dec-2015 12 Lead Electrocardiogram Result: Comments: See Note; NOTES: [facility] Cardiovascular Services [address] [place] [address] 12 Lead EKG 12/08/15 1551 MR#: [id number] Acct: [id number] Name: ELIZABETH DASILVA Rep #: [id number] : 1950 65 From: Francisco Muller MD [...] ECG Confirmed by FRANCISCO MULLER MD ([id number]), editor magazine ZUNILDA KLEIN ([id number]) on 12/10/2015 9:33:10 AM Referred By: ROMEL Confirmed By:FRANCISCO MULLER MD 12/10/15 0933 Date ___ Francisco Muller MD CC: Edita Cabral MD Date Dictated: 12/08/15 155 Date Transcribed: 12/08/151550 Director Of Diagnostic Imaging: Signed 10-Dec-2015 Emergency Department Summary Result: Comments: See Note; NOTES: [facility] Medical Records Department [address] [place] [address] Emergency Department Summary MR#: [id number] Acct: [id number] Name: ELIZABETH TORO Rep #: [id number] : 1950 65 From: Sisi Severino MD [...] C: Edita Cabral MD T: NTS JOB: [id number] 12/10/15 0232 <Electronically deepti d by Sisi Severino MD> Date Sisi Severino MD Cosigner Signature (If Indicated): Date C C: Edita Cabral MD Date Dictated: 12/08/151705 Date Transcribed: 12/08/151705 Director Of Diagnostic Imaging: Signed 08-Dec-2015 Discharge Instruction Result: Comments: See Note; NOTES: [facility] Medical Records Department [address] [place] [address] Discharge Instruction 12/08/15 1659 MR#: [id number] Acct: [id number] Name: ELIZABETH TORO Rep #: [id number] : 1950 65 From: Sisi Severino MD [...] unexp ected problems, contact your doctor. Call [facility] ([phone]) or report to the closest Emergency Room. Call 911 if necessary. 12/08/15 1701 <Electronically signed by Sisi young MD> Date Sisi Severino MD Cosigner Signature (If Indicated): Date CC: Edita Cabral MD 08-Dec-2015 Chest PA and Lateral Result: Comments: See Note; NOTES: [facility] Imaging Services [address] [place] [address] Verdana 4d Chest PA and Lateral MR#: [id number] Acct: [id number] Name: ELIZABETH TORO Rep #: [id number] : 1950 F 65 From: Malaika Diana MD PCP: Edita Cabral MD Status: REG ER Study: Chest PA and Lateral Date of Exam: 12/08/15 Exam# [id number] Ordering Dr: Sisi Severino MD STUDY: X-RAY [...] MD at 16:41 EST , Service support [phone], RAD/Chest PA and Lateral IMPRESSION: No acute disease is demonstrated. Electronic ally Signed: Malaika Diana MD at 16:41 EST , Service support [phone], CC: Edita Cabral MD; Sisi Severino MD Director Of Diagnostic Imaging: Signed 16-Sep-2015 EKG (67480) Result: [MEASUREMENTS ANALYSIS] Date of Test: 09/16/2015 09:46:37; Heart Rate: 74; AK Interval: 192; QRS: 88; QT Interval: 406; Corrected QT Interval (QTc): 430; P Wave [place]: 28; QRS Wave [place]: -3; T Wave [place]: -1; Blood Pressure: 104/60 [ECG DIAGNOSTIC STATEMENTS] Date of Test: 09/16/2015 09:46:37; Summary: Sinus Rhythm Low voltage in precordial leads. - Nonspecific T-abnormality. ABNORMAL 11-Feb-2015 Kidney and Bladder Result: Comments: See Note; NOTES: [facility] Imaging Services [address] [place] [address] Ultrasound Report MR#: [id number] Acct: [id number] Name: ELIZABETH TORO Rep #: [id number] : 1950 F 64 From: Mina Cade MD PCP: Edita Cabral MD Status: REG CLI Study: Kidney and Bladder Date of Exam: 02/11/15 Exam# [id number] Ordering Dr: Edita Cabral MD STUDY: RE [...] MD at 23:11 EDT , Service support [phone], CC: Edita Cabral MD Director Of Diagnostic Imaging: Signed 24-Jul-2014 PT Discharge Summary Result: Comments: See Note; NOTES: [facility] Physical Therapy [facility] [address] [place] [address] Fax REHABILITATION SERVICES DISCHARGE SUMMARY MR#: [id number] Acct: [id number] Name: ELIZABETH TORO Rep #: [id number] : 1950 63 From: Naomi Osorio Referring [...] clinic. Naomi Osorio, PT T: NTS JOB: [id number] <Electronically signed by Faraz Osorio > 07/24/14 1248 CC: Signed 15-Jun-2014 PT Discharge Summary Result: Comments: See Note; NOTES: [facility] Physical Therapy [facility] [address] [place], [place] [address] Fax REHABILITATION SERVICES DISCHARGE SUMMARY MR#: [id number] Acct: [id number] Name: ELIZABETH TORO Rep #: [id number] : 1950 63 From: Naomi Osorio Referring Dr.: Edita Cabral MD Status: REG RCR Eval [...] Sincerely, Naomi Osorio, PT T: NTS JOB: [id number] <Electronically signed by Naomi Osorio & amp;#62; 06/15/14 1410 CC: Signed 25-May-2014 Inital Evaluation - PT Result: Comments: See Note; NOTES: [facility] Physical Therapy [address] [place], [place] [address] Fax REHABILITATION SERVICES INITIAL EVALUATION MR#: [id number] Acct: [id number] Name: ELIZABETH TORO Rep #: [id number] : 1950 63 From: Naomi Osorio Referring Dr.: Edita Cabral MD Status: REG R Insurance: [facility] PART A B Eval Date: [...] anterolateral shoulder. She is right-handed. Right hand vp cardiovascular service line strength is 50 pounds, left is 22 [...] needed. Naomi Osorio, PT T: NTS JOB: [id number] <Electronically signed by Naomi Osorio > 4 1241 CC: Signed For Medicare only, by signing this I certify the plan of care. Physicians Signature Date 23-May-2014 Nuclear Stress Test - Chemical Result: Comments: See Note; NOTES: [facility] Imaging Services [address] [place] [address] Nuclear Medicine Report MR#: [id number] Acct: [id number] Name: ELIZABETH TORO Rep #: [id number] : 1950 F 63 From: Tano Nielsen MD PCP: Edita Cabral MD Status: REG CLI Study: Nuclear Stress Test - Chemical Date of Exam: 05/23/14 Exam# [id number] Ordering Dr: Álvaro Cabral MD EXERCISE TOLERANCE [...] 61%. CC: Edita Cabral MD Director Of Diagnostic Imaging: SHEKHAR Signed 14-May-2014 Shoulder min 2 Views Result: Comments: See Note; NOTES: [facility] Imaging Services [facility] [place] [address] Radiology Report MR#: [id number] Acct: [id number] Name: ELIZABETH TORO Rep #: [id number] : 1950 F 63 From: Hardeep Dumont MD PCP: Erna Kingston DO Status: REG CLI Study: Shoulder min 2 Views Date of Exam: 05/14/14 Exam# [id number] Ordering Dr: Edita Cabral MD STUDY: X-RAY [...] Silvio Dumont MD at 12:18 EDT , Servi ce support [phone], CC: Edita Cabral MD; Erna Kingston DO Director Of Diagnostic Imaging: Signed 30-Apr-2014 CTA Chest W/WO Contrast Result: Comments: See Note; NOTES: [facility] Imaging Services [address] [place] [address] CAT Scan Report MR#: [id number] Acct: [id number] Name: ELIZABETH TORO Rep #: [id number] : 1950 F 63 From: Hardeep Calix MD PCP: Erna Kingston DO Status: REG CLI Study: CTA Chest W/WO Contrast Date of Exam: 04/30/14 Exam# [id number] Ordering Dr: Erna Kingston DO STUDY: CTA [...] at 19 :01 EDT , Service support [phone], CC: Erna Kingston DO Director Of Diagnostic Imaging: Signed Family History Unknown Family Member Name [...] Status: Active Living Situation Comments: as of 05-15 ( of heart failure waiting for transplant) Status: Active No Drug Use Status: Active Non Drinker/No Alcohol Use Status: Active Non Smoker/No Tobacco Use Status: Active Tobacco use: Never smoker. Status: Active Smoking Status Name Dates Details Never smoker Vital Signs Date Test Result Details :17 Pulse 65 /min Comments: Pattern: Regular Respiration Rate 18 /min Comments: Pattern: Unlabored O2 SAT 95 % Comments: Room air BP Systolic 120 mm[Hg] Comments: Patient Position: Sitting; Cuff Location: Left Arm; Cuff Size: Large BP Diastolic 62 mm[Hg] Comments: Patient Position: Sitting; Cuff Location: Left Arm; Cuff Size: Large Weight 209.5 lb Height 64 in Body Mass Index Calculated 35.96 kg/m2 Body Surface Area Calculated 2 m2 :28 Temperature 98.8 f Comments: Method: Temporal [...] kg/m2 Body Surface Area Calculated 1.91 m2 99-Dha-821123:07 Pulse 73 /min Comments: Pattern: Regular Respiration [...] Description Value Details :57 CREATININE FINGERSTICK Comments: [facility] [address] [place], [place] [address] EGFR WB 55.0000 mL/min (Abnormal) CREATININE WB 1.1 mg/dL (Abnormal) Range: 0.55-1.02 87-Ham-201199:19 D-Dimer (31357) Comments: PATIENT NOT FASTINGPERFORMED BY: EMIL Nusirt Gvhdqm2883 [facility] [id number] D-Dimer 0.57 {mg/L_FEU} (Abnormal) Range: 0.00-0.49 Comments: According to the assay pc network technician's published package insert, anormal (<0.50 mg/L FEU) [...] and an78 year old 0.80 mg/L FEU. 43-Vko-844478:19 Troponin I (64604) Comments: PATIENT NOT FASTINGPERFORMED BY: [facility]6370 [facility] [id number] Troponin I <0.01 ng/mL (Normal) Range: 0.00-0.04 25-Wdg-532859:19 CPK MB FRACTION (03730) Comments: PATIENT NOT FASTINGPERFORMED BY: [facility]6370 [facility] [id number] Creatine Kinase (CK), MB 2.5 ng/mL (Normal) Range: 0.0-5.3 49-Qqy-691703:19 CREATINE KINASE TOTAL (61407) Comments: PATIENT NOT FASTINGPERFORMED BY: [facility]6370 [facility] [id number] Creatine Kinase,Total 103 U/L (Normal) Range: 24-173 :16 CBC-Complete Blood Cnt No Diff Comments: [facility] [address] [place], [address] MPV 10.5 fL (Normal) Range: 6.2-12.0 [...] Range: 4.4-11.0 :16 Microalb:Creat Ratio,Random UR Comments: [facility] [address] [place], [address] MALB:CREAT Test not performed {mg/g_CRE} (Normal) MICROALBUMIN,UR < 5.0 mg/L (Normal) UR CREAT < 13.00 mg/dL (Normal) :16 PTHIN 51.5 pg/mL (Normal) Comments: [facility] [address] [place], [id number] Range: 18.4-80.1 :16 Renal Profile Comments: [facility] [address] [place], [address] CO2 28.0 mmol/L (Normal) Range: 21.0-32.0 [...] Comments: Please note revised GLUCOSE reference range qwulmhfzh42/02/2018. 31-Iae-34574:16 Vitamin D,25 Hydroxy Comments: [facility] [address] [place], [id number] Vitamin D 25-OH 69.4 ng/mL (Normal) Range: 29.95-100.01 Comments: Vitamin D 25(OH) Status Range Deficiency <20 ng/mL (50nmol/L) Insuffciency 20 - 30 ng/mL (50 - 75 nmol/L) Sufficiency 30 - 100 ng/mL (75 - 250 nmol/L) Toxicity >100 ng/mL (>250 nmol/L) :04 HgA1C , Office (64729) HgA1C , Office 5.5 % (Normal) Range: 4.6 - 7.1 :23 CALCIFEDIOL (40696) Comments: PATIENT WAS FASTINGPERFORMED BY: [facility] [id number] Vitamin D, 25-Hydroxy 43.2 ng/mL (Normal) Range: 30.0-100.0 Comments: Vitamin D deficiency has been defined by the [place] of[place]icine and an Endocrine Society practice guideline as alevel of serum 25-OH vitamin D less than 20 ng/mL (1,2).The Endocrine Society went on to further define vitamin Dinsufficiency as a level between 21 and 29 ng/mL (2).1. IOM ([place] of Medicine). 2010. Dietary reference intakes for calcium and D. [place]: The National Academies Press.2. Azael MF, Leslee [place], Hillary PHILLIPS, et al. Evaluation, treatment, and prevention of vitamin D deficiency: an Endocrine Society clinical practice guideline. JCEM. 2010; 96(7):1911-30. :23 CBC, Platelets & Auto Diff Comments: PATIENT WAS FASTINGPERFORMED BY: LabCoKindred Hospital at MorrisSqijkj0797 [facility] [id number] ([id number]) Immature Grans (Abs) 0.0 {x10E3/uL} (Normal) Range: [...] 3.77-5.28 WBC 7.1 {x10E3/uL} (Normal) Range: 3.4-10.8 08-Tty-16523:23 Metabolic Panel, Comprehensive Comments: PATIENT WAS FASTINGPERFORMED BY: LabCoKindred Hospital at MorrisBrhmem7486 [facility] [id number] (48583) ALT (SGPT) 15 [iU]/L (Normal) Range: 0-32 [...] Glucose, Serum 82 mg/dL (Normal) Range: 65-99 63-Qfe-33599:23 MICROALBUMIN: CREATININE RATIO Comments: PATIENT WAS FASTINGPERFORMED BY: [employer] Wind[employer] Power ProductsECU [facility] [id number] (53308) AND (63570) Alb/Creat Ratio <5.6 {mg/g_creat} (Normal) Range: 0.0-30.0 Albumin, Urine <3.0 ug/mL (Normal) Creatinine, Urine 53.5 mg/dL (Normal) 19-Tmh-444409:31 Metabolic Panel, Basic Comments: PATIENT NOT FASTINGPERFORMED BY: Think SiliconECU [facility] [id number] (69706) Calcium, Serum 9.9 mg/dL (Normal) Range: 8.7-10.3 [...] (Normal) Range: 65-99 :55 HgA1C , Office (58891) Comments: 5.5 HgA1C , Office 5.5 % (Normal) Range: 4.6 - 7.1 3-Dmk-268048:22 VITAMIN B12 AND FOLATES Comments: today; PATIENT NOT FASTINGPERFORMED BY: [employer] Jmcyqw1265 MonkeduFireECU [facility] Hospital [id number] (82663) Folate (Folic Acid), Serum >20.0 ng/mL (Normal) Comments: A serum folate concentration of less than 3.1 ng/mL isconsidered to represent clinical deficiency. Vitamin B12 655 pg/mL (Normal) Range: 232-1245 Comments: Please note reference interval change :58 CALCIFEDIOL (06843) Comments: PATIENT NOT FASTINGPERFORMED BY: [facility] Zq[address]axj2125 Monk RoadDublin [place] [id number] Vitamin D, 25-Hydroxy 25.2 ng/mL (Abnormal) Range: 30.0-100.0 Comments: Vitamin D deficiency has been defined by the [place] of[place]icine and an Endocrine Society practice guideline as alevel of serum 25-OH vitamin D less than 20 ng/mL (1,2).The Endocrine Society went on to further define vitamin Dinsufficiency as a level between 21 and 29 ng/mL (2).1. IOM ([place] of Medicine). 2010. Dietary reference intakes for calcium and D. [place]: The National Academies Press.2. Azael MF, Leslee [place], Hillary PHILLIPS, et al. Evaluation, treatment, and prevention of vitamin D deficiency: an Endocrine Society clinical practice guideline. JCEM. 2010; 96(7):1911-30. 38-Etg-204800:58 TSH (THYROID STIMULATING Comments: PATIENT NOT FASTINGPERFORMED BY: [facility] Wcjhcr0654 Monk RoadDublin [place] [id number] HORMONE) (67335) TSH 2.410 {uIU/mL} (Normal) Range: 0.450-4.500 :58 CBC WITH MANUAL DIFF (93793) Comments: PATIENT NOT FASTINGPERFORMED BY: CB [facility] Qerbov[address] [facility] HospitalDublin [place] [id number] Immature Grans (Abs) 0.0 {x10E3/uL} (Normal) Range: [...] 3.77-5.28 WBC 7.7 {x10E3/uL} (Normal) Range: 3.4-10.8 13-Szb-205664:58 Metabolic Panel, Comprehensive Comments: PATIENT NOT FASTINGPERFORMED BY: LabCoKindred Hospital at MorrisTomibu1916 [facility] [id number] (43752) ALT (SGPT) 13 [iU]/L (Normal) Range: 0-32 [...] (Normal) Range: 65-99 :07 Bedside Glucose Comments: [facility] [address] [place] [address] BEDSIDE GLU 100 mg/dL (Normal) Range: 70-110 Comments: MANAGEMENT OF PATIENT CARE PER NURSING PROTOCOL 19-Enc-309442:14 D-Dimer Quantitative (DVT/PE) Comments: Order Date: 08/30/17Order Info: 58423-4 - [facility] Dewxnknyxt[address] [place], [address] D-DIMER QUANT 0.35 {FEU/ug/m} (Normal) Range: 0.27-0.49 Comments: NORMAL D-Dimer level (<0.50) indicates no DVT or PE. 34-Vjk-571693:44 Blood Glucose , Office (48435) Blood Glucose , 129 (Normal) Office :2 Request Problem Final report Comments: PATIENT NOT FASTINGPERFORMED BY: [employer] Zueath8630 [facility] [id number] Information: MOUTH SRC:MO 1 (Normal) Comments: Inappropriate source for anaerobic culture. A routine aerobic culturewas initiated. Contact the Microbiology Lab for further information. :2 Test Code Change SPRCS (Normal) Comments: PATIENT NOT FASTINGPERFORMED BY: LabCo Any.DO [facility] [id number] 1 Comments: Please note that the Microbiology test code was changed to reflectthe specimen source or transport received. 03-Jun-20171:21 Upper Respiratory Culture Comments: PATIENT NOT FASTINGPERFORMED BY: [facility]6370 [facility] [id number] Result 1 RRF (Normal) Comments: Routine respiratory duyen Upper Respiratory Culture Final report (Normal) 74-Ikq-699485:59 Metabolic Panel, Comprehensive Comments: Jul 2017; PATIENT NOT FASTINGPERFORMED BY: [facility]6370 [facility] [id number] (56229) ALT (SGPT) 16 [iU]/L (Normal) Range: 0-32 [...] Glucose, Serum 80 mg/dL (Normal) Range: 65-99 43-Qpu-591065:59 MAGNESIUM (28238) Comments: today; PATIENT NOT FASTINGPERFORMED BY: [facility] Krukry7102 [facility] [id number] Magnesium, Serum 2.2 mg/dL (Normal) Range: 1.6-2.3 :04 Blood Glucose , Office (66535) Blood Glucose , Office 111 (Normal) :04 HgA1C , Office (48709) HgA1C , Office 5.5 % (Normal) Range: 4.6 - 7.1 :03 CBC W/Diff, Automated Comments: [facility] [address] [place], [place], [id number] ; another doc Absolute Lymph 2.35 {X10_3/ul} [...] (Normal) Range: 4.4-11.0 :03 Protein+Creatinine Ratio,Urine Comments: [facility] [address] [place], [address] PROT:CRE RATIO 403 {mg/g_CRE} (Abnormal) Range: 0-200 PROTEIN,UR.RAN. < 6.0 mg/dL (Normal) UR CREAT 13.90 mg/dL (Normal) :03 PTH,INTACT Comments: [facility] [address] [place], [address] PTH,Intact 34 pg/mL (Normal) Range: 14-72 :03 Renal Profile Comments: [facility] [address] [place], [id number] CO2 26.0 mmol/L (Normal) Range: 21.0-32.0 CL [...] report for address and phone number VITD 55542 48.5 pg/mL (Normal) Range: 19.9-79.3 Comments: Performed at: [address] [id number] Director: Navdeep Medley MD, Phone: [phone] 85-Umv-354754:06 Metabolic Panel, Comprehensive Comments: PATIENT NOT FASTINGPERFORMED BY: Next PerformanceKindred Hospital at MorrisRmcjvx9182 [facility] [id number] ([id number]) ALT (SGPT) 11 [iU]/L (Normal) Range: 0-32 [...] Glucose, Serum 78 mg/dL (Normal) Range: 65-99 16-Rma-689886:06 CBC, Platelets & Auto Diff Comments: PATIENT NOT FASTINGPERFORMED BY: [employer] Any.DO [facility] [id number] (53307) Immature Grans (Abs) 0.0 {x10E3/uL} (Normal) Range: [...] 3.77-5.28 WBC 9.3 {x10E3/uL} (Normal) Range: 3.4-10.8 56-Whh-206897:06 TSH (94981) Comments: PATIENT NOT FASTINGPERFORMED BY: [facility] Topneu3061 [facility] [id number] TSH 3.080 {uIU/mL} (Normal) Range: 0.450-4.500 21-Shu-435836:56 HgA1C , Office (68004) HgA1C , Office 5.5 % (Normal) Range: 4.6 - 7.1 07-Hlu-121377:56 Blood Glucose , Office (76229) Blood Glucose , Office 81 (Normal) 31-Dec-20168:09 LIPID PANEL (33673) Comments: PATIENT WAS FASTINGPERFORMED BY: Next PerformanceKindred Hospital at MorrisVgucjz6663 [facility] [id number] LDL/HDL Ratio 2.0 {ratio_units} (Normal) Range: 0.0-3.2 [...] PANEL, COMPREHENSIVE Comments: PATIENT WAS FASTINGPERFORMED BY: Nusirt Ngszuk0475 [facility] [id number] (65065) ALT (SGPT) 15 [iU]/L (Normal) Range: 0-32 [...] Glucose, Serum 104 mg/dL (Abnormal) Range: 65-99 47-Xwr-19850:04 METABOLIC PANEL, COMPREHENSIVE Comments: fax to Dr Henry; PATIENT WAS FASTINGPERFORMED BY: LabCoKindred Hospital at MorrisDrwsng0687 [facility] [id number] (44128) ALT (SGPT) 16 [iU]/L (Normal) Range: 0-32 [...] CREATININE RATIO Comments: PATIENT WAS FASTINGPERFORMED BY: [facility] [id number] (45071) AND (89149) Microalb/Creat Ratio <6.3 {mg/g_creat} (Normal) Range: 0.0-30.0 Microalbumin, Urine <3.0 ug/mL (Normal) Creatinine, Urine 48.0 mg/dL (Normal) :04 HGB A1C (01335) Comments: PATIENT WAS FASTINGPERFORMED BY: [facility] [id number] Hemoglobin A1c 5.7 % (Abnormal) Range: 4.8-5.6 Comments: . Pre-diabetes: 5.7 - 6.4 Diabetes: >6.4 Glycemic control for adults with diabetes: <7.0 :04 CALCIFEDIOL (67034) Comments: PATIENT WAS FASTINGPERFORMED BY: [facility] [id number] Vitamin D, 25-Hydroxy 24.2 ng/mL (Abnormal) Range: 30.0-100.0 Comments: Vitamin D deficiency has been defined by the [place] of[place]icine and an Endocrine Society practice guideline as alevel of serum 25-OH vitamin D less than 20 ng/mL (1,2).The Endocrine Society went on to further define vitamin Dinsufficiency as a level between 21 and 29 ng/mL (2).1. IOM ([place] of Medicine). 2010. Dietary reference intakes for calcium and D. [place]: The National Academies Press.2. Azael MF, Leslee NC, Hillary PHILLIPS, et al. Evaluation, treatment, and prevention of vitamin D deficiency: an Endocrine Society clinical practice guideline. JCEM. 2010; 96(7):5821-30. :04 TSH (THYROID STIMULATING Comments: PATIENT WAS FASTINGPERFORMED BY: Next Performance Any.DO [facility] [id number] HORMONE) (86664) TSH 2.710 {uIU/mL} (Normal) Range: 0.450-4.500 :04 LIPID PANEL (12352) Comments: PATIENT WAS FASTINGPERFORMED BY: [employer] Csdklv1917 [facility] [id number] LDL/HDL Ratio 1.7 {ratio_units} (Normal) Range: 0.0-3.2 [...] AUT DIFF Comments: PATIENT WAS FASTINGPERFORMED BY: [employer] Performance Qishyb6436 [facility] [id number] (93578) Immature Grans (Abs) 0.0 {x10E3/uL} (Normal) Range: [...] up testing of positive sera with both AK-3 and MPO- ANCA enzyme immunoassays. As many as 5% serumsamp les are positive only by EIA. Ref. AM J Clin Mcqxgm6932;111:507-513. CYTOPLASMIC Ab <1:20 {titer} (Normal) :28 Anti-dsDNA Ab Comments: [facility] (refer to report for specific site)refer to report for address and phone number dsDNA AB <1 {IU/mL} (Normal) Range: 0-9 Comments: Negative <5 Equivocal 5 - 9 Positive >9Performed at: [facility] Next Performance[address] [id number] D irector: Junior Valera PhD, Phone: [phone] :[phone] Complement C3 Comments: Is Patient Fasting? [facility] (refer to report for specific site)refer to report for address and phone number COMP C3 127 mg/dL (Normal) Range: 82-167 Comments: Performed at: [facility] DocLanding[address] [id number] Director: Junior Valera PhD, Phone: [phone] :28 Complement C4 Comments: Is Patient Fasting? [...] electrophoresis scan will follow via computer,mail, or dairy farm worker delivery. LEOPOLDO RESULT,S Comment: (Normal) Comments: Presence of monoclonal protein is unclear at this time. Suggest repeat in 3 to 6 months if clinically indicated. A/G RATIO 0.9 (Normal) Range: 0.7-1.7 GLOBULIN, TOTAL 3.8 g/dL (Normal) Range: 2.2-3.9 M-SPIKE (Normal) Comments: Not Observed GAMMA GLOBULIN 1.4 g/dL (Normal) Range: 0.4-1.8 BETA GLOBULIN 1.3 g/dL (Normal) Range: 0.7-1.3 HRWEZ-4-RKDF 0.9 g/dL (Normal) Range: 0.4-1.0 TTQTW-3-LXJO 0.2 g/dL (Normal) Range: 0.0-0.4 ALBUMIN 3.4 g/dL (Normal) Range: 2.9-4.4 IMMUNOGL M 44 mg/dL (Normal) Range: 26-217 IMMUNO A 614 mg/dL (Abnormal) Range: 87-352 IMMUNO G 1353 mg/dL (Normal) Range: 700-1600 PROTEIN,TOTAL 7.2 g/dL (Normal) Range: 6.0-8.5 :28 Protein+Creatinine Ratio,Urine Comments: [facility] [address] [place], [address] PROT:CRE RATIO 128 {mg/g_CRE} (Normal) Range: 0-200 PROTEIN,UR.RAN. 6.5 mg/dL (Normal) UR CREAT 50.60 mg/dL (Normal) :46 RENAL FUNCTION PANEL (82677) Comments: PATIENT NOT FASTINGPERFORMED BY: Farfetch6370 [facility] [id number] Phosphorus, Serum 4.2 mg/dL (Normal) Range: 2.5-4.5 :46 PT (PROTHROMBIN TIME) (55685) Comments: PATIENT NOT FASTINGPERFORMED BY: Farfetch6370 [facility] [id number] Prothrombin Time 10.9 {sec} (Normal) Range: 9.1-12.0 INR 1.1 (Normal) Range: 0.8-1.2 Comments: Reference interval is for non-anticoagulated patients. . Suggested INR therapeutic range for Vitamin K anta gonist therapy: Standard Dose (moderate intensity therapeutic range): 2.0 - 3.0 Higher intensity therapeutic range 2.5 - 3.5 :46 METABOLIC PANEL, COMPREHENSIVE Comments: PATIENT NOT FASTINGPERFORMED BY: Farfetch6370 [facility] [id number] (70734) ALT (SGPT) 24 [iU]/L (Normal) Range: 0-32 [...] Glucose, Serum 109 mg/dL (Abnormal) Range: 65-99 45-Bpa-687531:46 CBC, PLATELETS & AUT DIFF Comments: PATIENT NOT FASTINGPERFORMED BY: [facility] Ejfswl2722 [facility] [id number] Information: [id number] (69468) Immature Grans (Abs) 0.0 {x10E3/uL} (Normal) Range: [...] (Normal) Range: 3.4-10.8 :23 HgA1C , Office (14916) HgA1C , Office 5.4 % (Normal) Range: 4.6 - 7.1 :16 CBC-Complete Blood Cnt No Diff Comments: [facility] [address] [place], [place], [phone] MPV 8.8 fL (Normal) Range: 6.2-12.0 PLT [...] 4.4-11.0 :16 Serum Creatinine AND GFR Comments: [facility] [address] [place], [place], [address] Estimated CRCL 27.75 ml/min (Normal) EST GFR - AA 37 mL/min (Abnormal) Comments: GFR Calc EST GFR 30 mL/min (Abnormal) Comments: Non- GFR Calc CREAT,SERUM 1.77 mg/dL (Abnormal) Range: 0.55-1.20 Comments: The validity of the calculated GFR AND GFRAA in patients over70 years has not been determined. Clinical correlation isessential. 27-Knh-588514:15 Bedside Glucose Comments: [facility] LaboratoryPoint of [address]fj[address] [place], [place] [address] BEDSIDE GLU 128 mg/dL (Abnormal) Range: 70-110 Comments: Policy and Physicians Orders followedMANAGEMENT OF PATIENT CARE PER NURSING PROTOCOL HYSTERECTOMY SPECIMEN See Note (Normal) Comments: [facility] [address] [place], [place], [phone] :39 Comments: Patient: ELIZABETH TORO : 1950 (65/F) Acct Num: [id number] Phys: Gonsalo PROCTOR,Gm Unit Num: [id number] Loc: MS1 [id number] Specimen: [id number] Received: 06/22/161336 Spec Ty pe: HYSTERECT TISSUES TISSUES: COMMENT Please make reference to previous specimen ([id number]) endometrial biopsy with diagnosis of consistent with atrophic endometrium and ([id number]) e ndometrium andpolyp, excision with diagnosis of [...] measures 1.2 x 0.7 x 0.6 cm. Nut Threader sections are submitted inten cassettes as follows: [...] tube and ovary. / Sridevi 06/22/16 TC:1 CPT:26023 HEADER OPERATION: Lap robotic hysterectomy, BSO PRE-OP [...] Signed Sivakumar Mallory 06/23/16 <signature on file> 15-Eij-63621:31 Bedside Glucose Comments: [facility] LaboratoryPoint of [address]yg[address] [place], [place] [address] BEDSIDE GLU 89 mg/dL (Normal) Range: 70-110 Comments: Physician Notified VBRBMANAGEMENT OF PATIENT CARE PER NURSING PROTOCOL 16-Wnv-261611:31 CBC-Complete Blood Cnt No Diff Comments: [facility] [address] [place], [address] MPV 10.1 fL (Normal) Range: 6.2-12.0 PLT [...] 4.2-5.4 WBC 7.6 K/mm3 (Normal) Range: 4.4-11.0 :31 Comprehensive Metabolic Profil Comments: [facility] Jnqchobhks6914 [facility] [place], [address] GAP 8 (Normal) Range: 5-15 [...] 7-18 GLU 87 mg/dL (Normal) Range: 70-110 53-Lmg-112308:31 Hemoglobin A1c Comments: [facility] [address] [place], [place], [address] HGB A1C 5.6 % (Normal) Range: 4.2-6.3 95-Qly-255118:31 Partial Thromboplast Time Comments: [facility] [address] [place], [place], [address](253) PTT 27.7 s (Normal) Range: 24.1-36.2 52-Uyc-116450:31 Prothrombin Time w/INR Comments: [facility] [address] [place], [place], [phone](573) INR 1.1 (Normal) PROTIME 13.4 s (Normal) Range: 11.7-14.9 98-Wah-467763:31 Thyroid Stim Hormone (TSH) Comments: [facility] [address] [place], [place], [address] TSH 2.46 {uIU/mL} (Normal) Range: 0.358-3.74 73-Fjk-251050:31 Type AND Screen Comments: Surgery Date: 06/22/16Date of Last Transfusion (if within last 3 months) NHx of Preganancy in last 3 Months NoEver experience any problems with transfusion(s)? NHx of Transfusion in last 3 Months N Reason for Type AND Screen/Red Cells: SURGERYTime: 0600SURGICAL PROCEDURE: [facility] [address] [place], [place], [address] Antibody Screen NEGATIVE (Normal) BLOOD TYPE GEL A NEGATIVE (Normal) 70-Fyl-454927:28 Comprehensive Metabolic Profil Comments: Order Date: 06/10/16Order Date: 06/10/16[facility] [address] [place], [address] GAP 5 (Normal) Range: 5-15 CO2 28.0 [...] 7-18 GLU 79 mg/dL (Normal) Range: 70-110 01-Zou-926803:58 CBC W/Diff, Automated Comments: [facility] [address] [place], [address] Absolute Lymph 2.98 {X10_3/ul} (Normal) Range: 0.83-4.51 [...] 4.2-5.4 WBC 8.7 K/mm3 (Normal) Range: 4.4-11.0 70-Rho-992448:58 Comprehensive Metabolic Profil Comments: Is Patient Taking Vitamins or Folic Acid Supplements? [facility] [address] [place], [address] GAP 8 (Normal) Range: 5-15 CO2 29.0 [...] 7-18 GLU 95 mg/dL (Normal) Range: 70-110 92-Qqk-001682:58 Erythrocyte Sed Rate Comments: [facility] [address] [place], [place], [phone] SED RATE 25 mm/h (Normal) Range: 0-30 80-Nbo-142428:58 Folates, (Folic Acid) Comments: Is Patient Taking Vitamins or Folic Acid Supplements? [facility] [address] [place], [place], [phone] FOLATES 9.60 ng/mL (Normal) Range: 3.1-17.5 46-Wit-654154:58 Thyroid Stim Hormone (TSH) Comments: Is Patient Taking Vitamins or Folic Acid Supplements? [facility] [address] [place], [place], [address] TSH 2.58 {uIU/mL} (Normal) Range: 0.358-3.74 53-Fsa-940787:58 Vitamin B12 543 pg/mL (Normal) Comments: [facility] [address] [place], [place], [address] Range: 211-911 44-Qgq-910734:07 Urinalysis, Office (17200) UA - LEUKOCYTE ESTERASE Trace (Normal) UA - NITRITE Negative (Normal) URINE UROBILINGN SHARIFA TIMED Normal mg/dL (Normal) UA - PROTEIN Negative mg/dL (Normal) UA - PH 6.5 (Normal) UA - BLOOD Hemolyzed Trace (Normal) UA - SPECIFIC GRAVITY 1.005 (Normal) UA - KETONES Negative mg/dL (Normal) UA - BILIRUBIN Negative (Normal) UA - GLUCOSE Negative (Normal) 90-Bny-728180:04 URINE VERÓNICA CULTURE-SHARIFA COL Comments: PATIENT NOT FASTINGPERFORMED BY: [facility] Vubakg0506 [facility] [id number] Information: SRC:[facility] [place] [id number] COUNT (23688) Antimicrobial MIHEAD (Normal) Comments: S = Susceptible; [...] (Abnormal) Urine Final report Culture,Comprehensive (Abnormal) EGD ([facility]) See Note (Normal) Comments: [facility] [address] [place], [place], [address]:04 Comments: Patient: ELIZABETH TORO : 1950 (65/F) Acct Num: [id number] Phys: Junior Pena Unit Num: [id number] Loc: LABSPEC Specimen: [id number] Received: 04/21/161637 Spec Type: EGD BIOPSY TISSUES [...] totall y submitted in one cassette. / SJ:stormy 04/22/16 TC:3 CPT:20231 HEADER OPERATION: EGD with biopsy PRE-OP DIAGNOSIS: Dysphagia TISSUE SUBMITTED: Esophageal biopsy, R/O EE MICROSCOPIC DESCRIP TION Slides are reviewed. MICROSCOPIC DIAGNOSIS Esophageal biopsy: Fragments of squamous epithelium with mild chronic inflammation. See comment. SJ:stormy 04/23/16 Signed Sivakumar Mallory 04/23/16 <signature on file> CERVICAL See Note (Normal) Comments: [facility] [address]rf[address] [facility] [place], [address]:15 Comments: Patient: ELIZABETH TORO : 1950 (65/F) Acct Num: [id number] Phys: Gonsalo PROCTOR,[facility] Unit Num: [id number] Loc: [facility] Specimen: [id number] Received: 04/13/161335 Spec Type: CER V TISSUES [...] one cassette. / AM: 04/13/16 TC:5 CPT: 16529 x 2 HEADER OPERATION: Hysteroscopy, diagnostic, D AND C PRE-OP DIAGNOSIS: Postmenopausal bleeding TISSUE SUBMITTED: A - Endocervical curettings, B - Endometrial curettings and polyp [facility] DESCRIPTION Slides are reviewed. MICROSCOPIC DIAGNOSIS A. Endocervix, curettings: Strips of benign superficial endocervix. Rare strips of benign superficial ectocervix. B. Endom etrium and polyp, excision: Benign endometrial polyp with simple cystic hyperplasia without atypia. Scant strips of benign superficial endometrium. AM:trena 04/14/16 Signed Ras Kaushal 04/14/16 <signature on file> :04 Bedside Glucose Comments: [facility] LaboratoryPoint of [address] [place], [place] [address] BEDSIDE GLU 98 mg/dL (Normal) Range: 70-110 Comments: No Action RequiredMANAGEMENT OF PATIENT CARE PER NURSING PROTOCOL :08 CBC-Complete Blood Cnt No Diff Comments: [facility] [address] [place], [address] MPV 9.4 fL (Normal) Range: [...] Range: 4.4-11.0 :08 Comprehensive Metabolic Profil Comments: [facility] [address] [place], [place], [address] GAP 8 (Normal) Range: 5-15 CO2 24.0 [...] Range: 70-110 :08 Partial Thromboplast Time Comments: [facility] [address] [place], [place], [phone] PTT 29.8 s (Normal) Range: 24.1-36.2 :08 Prothrombin Time w/INR Comments: [facility] [address] [place], [place], [phone] INR 1.1 (Normal) PROTIME 13.6 s (Normal) Range: 11.7-14.9 :08 Type AND Screen Comments: Surgery Date: 04/13/16Date of Last Transfusion (if within last 3 months) NHx of Preganancy in last 3 Months NoEver experience any problems with transfusion(s)? NHx of Transfusion in last 3 Months N Reason for Type AND Screen/Red Cells: SURGERYTime: 1015SURGICAL PROCEDURE: D [facility] [address] [place], [place], [address] Antibody Screen NEGATIVE (Normal) BLOOD TYPE GEL A NEGATIVE (Normal) ENDOMETRIAL See Note (Normal) Comments: [facility] [address] [place], [address] 6:00 BX/CURETTINGS Comments: Patient: ELIZABETH TORO : 1950 (65/F) Acct Num: [id number] Phys: Gonsalo PROCTOR,Gm Unit Num: [id number] Loc: LABSPEC Specimen: [id number] Received: 03/26/16 - 1600 Spec Type: ENDOM [...] in one cassette. / AM:stormy 03/27/16 TC:4 CPT:96172 HEADER OPERATION: Endometrial biopsy PRE-OP DIAGNOSIS: N95.0 TISSUE SUBMITTED: EMB MICROSCOPIC DESCRIPTION Slides are r felipeweevelia. MICROSCOPIC DIAGNOSIS Endometrial biopsy: Scant strips of benign endometrial epithelium, consistent with atrophic endometrium. Fragments of benign endocervical epithelium and mucous. SJ:stormy 03/31/16 Signed Sivakumar Mallory 03/31/16 <signature on file> 59-Xxe-837110:00 PAP I-G w/ Reflex to HR Comments: CYTOLOGY INFORMATION:- CLINICAL INFORMATION: POSTMENOPAUSAL- DATE LMP/MENOPAUSE: MENOPAUSE- COLLECTION VIAL: Thin Prep Vial- DIRECTOR TARGETED MARKETING SOURCE: CERVICAL/ENDOCERVICAL- COLLECTION TECHNIQUE: BRUSH/ SPATULASpeci HPV men Comment: [id number] Comment: No. of containers..01 CYTYC Thin Prep VialLabCorp (refer to report for specific site)refer to report for address and phone number HPV RFLX Comment (Normal) Comments: The HPV DNA reflex criteria were not met with this specimenresult therefore, no HPV testing was performed.Performed at: [address] [place] [id number] Director: Annamaria Menezes MD, Phone: [phone] PAPSMR Comment (Normal) Comments: The Pap smear [...] system. PERFORM Comment (Normal) Comments: Adeline Singleton, Donor Recruitment Manager (ASCP) ADEQ Comment (Normal) Comments: Satisfactory for evaluation. DIAGN Comment (Normal) Comments: NEGATIVE FOR INTRAEPITHELIAL LESION AND MALIGNANCY. 84-Fjw-27963:20 Urinalysis, Complete Comments: How was Urine Obtained? INSPECTOR MACHINE PARTS TO SPECIFYMer[facility] St[facility] [address]gmh[address] [facility] [place], [place], [phone] MUCUS, URINE 0 SEEN {/hpf} (Normal) BACTERIA [...] (Normal) CLARITY Clear (Normal) COLOR Straw (Normal) 43-Mmc-231309:50 Basic Metabolic Profile (BMP) Comments: [facility] [address] [place], [place], [address] GAP 7 (Normal) Range: 5-15 CO2 26.0 [...] <126 mg/dLsuggests IMPAIRED HOMEOSTASIS per A.D.A. criteria. :50 CBC W/Diff, Automated Comments: [facility] [address] [place], [place], [address] Absolute Lymph 3.53 {X10_3/ul} (Normal) Range: 0.83-4.51 [...] K/mm3 (Normal) Range: 4.4-11.0 :02 Rapid Flu (44833 x 2) Influenza A Ag negative (Normal) 2-Shn-547484:31 SJOGREN ANTIBOIDIES Comments: PATIENT NOT FASTINGPERFORMED BY: LabFormerly [facility]6370 [facility] [id number] Information: [id number] (ANTI-SS-A/ANTI-SS-B) (24912) Sjogren's Anti-SS-B <0.2 {AI} (Normal) Range: 0.0-0.9 Sjogren's Anti-SS-A <0.2 {AI} (Normal) Range: 0.0-0.9 :28 Rapid Strep Test, Office (32804) Rapid Strep Test, Office Negative (Normal) 0-Fff-183790:37 Throat Culture (48460) Comments: PATIENT NOT FASTINGPERFORMED BY: [place] [id number] [facility] [id number] Information: SRC:THRT [id number] Result 1 BETAGB (Abnormal) Comments: Beta hemolytic [...] 2011) Upper Respiratory Culture Final report (Abnormal) :45 Basic Metabolic Profile (BMP) Comments: 'TROP' Serial specimen #1, #2, #3, or #4: 1WMer[facility] [address]jht[address] [place], [place], [address] GAP 9 (Normal) Range: 5-15 CO2 23.0 [...] 7-18 GLU 92 mg/dL (Normal) Range: 70-110 :45 CBC W/Diff, Automated Comments: [facility] [address] [place], [address] Absolute Lymph 2.03 {X10_3/ul} (Normal) Range: 0.83-4.51 [...] Serial specimen #1, #2, #3, or #4: [address] [place] [address] [address] [place], [address] TSH 1.50 {uIU/mL} (Normal) Range: 0.358-3.74 :45 Troponin-I Comments: 'TROP' Serial specimen #1, #2, #3, or #4: [address] [place] [address] [address] [place], [address] TROPONIN-I < 0.02 ng/mL (Normal) Comments: TROPONIN-I EXPECTED VALUES <0.05 NEGATIVE 0.06 - 0.59 AT RISK OF PA > OR = 0.60 SUGGEST PA :53 Pap IG (Image Comments: Source.............Cervical;EndocervicalNo. of containers..01 CYTYC Thin Prep VialPATIENT NOT FASTINGPERFORMED BY: =G LabChemo Beaniesrp Zblhnmbjro356 [facility] W [id number] BY: WB L Guided) [facility] J[address] [id number] Note: PAPSMR (Normal) Comments: The Pap smear [...] of partially obscuring exudate are present.Z00.00Adeline Singleton Donor Recruitment Manager (ASCP) :01 HgA1C , Office (06243) HgA1C , Office 5.9 % (Normal) Range: 4.6 - 7.1 :00 Blood Glucose , Office (63237) Blood Glucose , Office 126 (Normal) :53 Thin Prep Pap Comments: Source.............Cervical;EndocervicalNo. of containers..01 CYTYC Thin Prep VialPATIENT NOT FASTINGPERFORMED BY: =G [facility] [address] [id number] BY: WB L ([address]20) [address] [id number] Information: [id number] Age Gdln ACOG Testing AGE4 (Normal) Comments: <21 or >65 or no age provided :34 METABOLIC PANEL, Comments: PATIENT WAS FASTINGPERFORMED BY: LabCoKindred Hospital at MorrisBvherq5572 [facility] [id number] Information: [id number] COMPREHENSIVE (91730) ALT (SGPT) 18 [iU]/L (Normal) Range: 0-32 [...] Glucose, Serum 83 mg/dL (Normal) Range: 65-99 14-Kkl-61772:34 CALCIFIDIOL (63319) VIT D 25 Comments: PATIENT WAS FASTINGPERFORMED BY: [facility]6370 [facility] [id number] Vitamin D, 25-Hydroxy 59.6 ng/mL (Normal) Range: 30.0-100.0 Comments: Vitamin D deficiency has been defined by the [place] ofMedicine and an Endocrine Society practice guideline as alevel of serum 25-OH vitamin D less than 20 ng/mL (1,2).The Endocrine Society went on to further define vitamin Dinsufficiency as a level between 21 and 29 ng/mL (2).1. IOM ([place] of Medicine). 2010. Dietary reference intakes for calcium and D. [place]: The National Academies Press.2. Leslee Chapin, Hillary PHILLIPS, et al. Evaluation, treatment, and prevention of vitamin D deficiency: an Endocrine Society clinical practice guideline. JCEM. 2010; 96(7):1911-30. :37 HgA1C , Office (09234) HgA1C , Office 6.1 % (Normal) Range: 4.6 - 7.1 :37 Blood Glucose , Office (52092) Blood Glucose , Office 107 (Normal) :27 TSH (THYROID STIMULATING Comments: PATIENT WAS FASTINGPERFORMED BY: CB [facility] Sqhtjb8868 [address] RoadDublin [place] [id number] HORMONE) (90562) TSH 2.480 {uIU/mL} (Normal) Range: 0.450-4.500 : CALCIFEDIOL (16338) Comments: PATIENT WAS FASTINGPERFORMED BY: CB [facility] Ultseo8791 [address]k RoadDublin [place] [id number] Vitamin D, 25-Hydroxy 16.7 ng/mL (Abnormal) Range: 30.0-100.0 Comments: Vitamin D deficiency has been defined by the [place] of[place]icine and an Endocrine Society practice guideline as alevel of serum 25-OH vitamin D less than 20 ng/mL (1,2).The Endocrine Society went on to further define vitamin Dinsufficiency as a level between 21 and 29 ng/mL (2).1. IOM ([place] of Medicine). 2010. Dietary reference intakes for calcium and D. [place]: The National Academies Press.2. Leslee Chapin, Hillary PHILLIPS, et al. Evaluation, treatment, and prevention of vitamin D deficiency: an Endocrine Society clinical practice guideline. JCEM. 2010; 96(7):1911-30. :27 LIPID PANEL (90098) Comments: PATIENT WAS FASTINGPERFORMED BY: CB [facility] Cyvwpq2540 [address]k RoadDublin [place] [id number] LDL/HDL Ratio 1.2 {ratio_units} (Normal) Range: 0.0-3.2 [...] Cholesterol, Total 138 mg/dL (Normal) Range: 100-199 97-Whb-39188:27 METABOLIC PANEL, COMPREHENSIVE Comments: PATIENT WAS FASTINGPERFORMED BY: [facility] Pprdin1698 [facility] [id number] (05520) ALT (SGPT) 19 [iU]/L (Normal) Range: 0-32 [...] & MANUAL Comments: PATIENT WAS FASTINGPERFORMED BY: Next PerformanceKindred Hospital at MorrisUknaaa5872 [facility] [id number] Information: [id number], [id number] DIFF (80637) Immature Grans (Abs) 0.0 {x10E3/uL} (Normal) Range: [...] 3.77-5.28 WBC 7.0 {x10E3/uL} (Normal) Range: 3.4-10.8 19-Tzn-679904:31 CREATININE CLEARANCE Comments: PATIENT NOT FASTINGPERFORMED BY: Next PerformanceKindred Hospital at MorrisIqhegw1295 [facility] [id number] Information: [id number] START @9AM FINISH 01/28/15@9 AM (38128) Creatinine Clearance 53 mL/min (Abnormal) Range: 88-128 [...] Hour Urine Comments: PATIENT NOT FASTINGPERFORMED BY: DocLandingFormerly [facility]6370 [facility] [id number] (55721) Prot,24hr calculated 357.5 {mg/24_hr} (Abnormal) Range: 30.0-150.0 Protein,Total,Urine 13.0 mg/dL (Normal) Range: 0.0-15.0 :28 HgA1C , Office (22127) HgA1C , Office 5.9 % (Normal) Range: 4.6 - 7.1 :28 Blood Glucose , Office (64179) Blood Glucose , Office 136 (Normal) :53 TSH (56164) Comments: PATIENT WAS FASTINGPERFORMED BY: [facility]6370 [facility] [id number] TSH 4.370 {uIU/mL} (Normal) Range: 0.450-4.500 :53 MICROALBUMIN: CREATININE RATIO Comments: PATIENT WAS FASTINGPERFORMED BY: [facility]6370 [facility] [id number] (37111) AND (71278) Microalb/Creat Ratio 5.0 {mg/g_creat} (Normal) Range: 0.0-30.0 Microalbumin, Urine 4.5 ug/mL (Normal) Range: 0.0-17.0 Creatinine, Urine 90.5 mg/dL (Normal) Range: 15.0-278.0 :53 METABOLIC PANEL, COMPREHENSIVE Comments: PATIENT WAS FASTINGPERFORMED BY: FilmTrack70 [facility] [id number] (06450) ALT (SGPT) 20 [iU]/L (Normal) Range: 0-32 [...] mg/dL (Abnormal) Range: 65-99 :53 LIPID PANEL (49179) Comments: PATIENT WAS FASTINGPERFORMED BY: SeoPult Vworrn6698 [facility] [id number] LDL/HDL Ratio 1.4 {ratio_units} (Normal) Range: 0.0-3.2 [...] Cholesterol, Total 137 mg/dL (Normal) Range: 100-199 07-Jan-20158:53 CBC W/AUTO DIFF WBC Comments: PATIENT WAS FASTINGPERFORMED BY: LabCoKindred Hospital at MorrisKvksjq3832 [facility] [id number] Information: [id number] (78641) Immature Grans (Abs) 0.0 {x10E3/uL} (Normal) Range: [...] 7.8 {x10E3/uL} (Normal) Range: 3.4-10.8 :53 CALCIFIDIOL (99885) VIT D 25 Comments: PATIENT WAS FASTINGPERFORMED BY: DocLandingFormerly [facility]6370 [facility] [id number] Vitamin D, 25-Hydroxy 22.5 ng/mL (Abnormal) Range: 30.0-100.0 Comments: Vitamin D deficiency has been defined by the [place] [facility] Hospitalcine and an Endocrine Society practice guideline as alevel of serum 25-OH vitamin D less than 20 ng/mL (1,2).The Endocrine Society went on to further define vitamin Dinsufficiency as a level between 21 and 29 ng/mL (2).1. IOM ([place] of Medicine). 2010. Dietary reference intakes for calcium and D. [place]: The National Academies Press.2. Azael MF, Leslee LEMON, Hillary PHILLIPS, et al. Evaluation, treatment, and prevention of vitamin D deficiency: an Endocrine Society clinical practice guideline. JCEM. 2010; 96(7):1911-30. :22 HgA1C , Office (41375) HgA1C , Office 6.0 % (Normal) Range: 4.6 - 7.1 :22 Blood Glucose , Office (32388) Blood Glucose , Office 132 (Normal) :27 Blood Glucose , Office (80962) Blood Glucose , Office 114 (Normal) :27 HgA1C , Office (33718) HgA1C , Office 5.9 % (Normal) Range: 4.6 - 7.1 :00 Basic Metabolic Panel (8) Comments: PATIENT NOT FASTINGPERFORMED BY: LabFormerly [facility]6370 [facility] [id number] BY: [address] [id number] Calcium, Serum 9.8 mg/dL (Normal) Range: 8.6-10.2 [...] 287 {mOsmol/kg} Comments: PATIENT NOT FASTINGPERFORMED BY: BioSTL [facility] [id number] BY: DocLanding[address] [id number] 00 (Normal) Range: 280-301 : Osmolality, Urine 259 {mOsmol/kg} Comments: PATIENT NOT FASTINGPERFORMED BY: FilmTrack70 [facility] [id number] BY: Next Performance[address] [id number] 00 (Normal) Comments: 24 hr : 300 - 900 Random: 50 - 1400 After 12hr fluid restriction: >850 : Sodium, Urine 11 mmol/L (Normal) Comments: PATIENT NOT FASTINGPERFORMED BY: Neuroneticslin6370 [facility] [id number] BY: DocLanding[address] [id number] 00 5-Oxl-777660:06 Metabolic Panel, Basic Comments: PATIENT NOT FASTINGPERFORMED BY: TopPatchKindred Hospital at MorrisWrjiev9453 [facility] [id number] Information: [id number] (94063) Calcium, Serum 9.9 mg/dL (Normal) Range: 8.6-10.2 [...] Glucose, Serum 108 mg/dL (Abnormal) Range: 65-99 81-Ybp-446538:34 CBCD Comments: pt has apt with db [...] <0.05 NEGATIVE0.06 - 0.59 AT RISK OF PA> OR = 0.60 SUGGEST PA 05-Zdb-668255:34 TSH 2.32 {uIU/mL} (Normal) Comments: 'TROP' Serial specimen #1, #2, #3, or #4: 1 Range: 0.358-3.74 01-May-20140:00 Microscopic Examination Comments: PATIENT WAS FASTINGPERFORMED BY: [facility] Hqldti6339 [address] RoadDublin [place] [id number] Bacteria Few (Normal) Mucus Threads Present (Normal) Epithelial Cells (non renal) 0-10 {/hpf} (Normal) Range: 0 - 10 RBC 0-2 {/hpf} (Normal) Range: 0 - 2 WBC 11-30 {/hpf} (Abnormal) Range: 0 - 5 54-Fdh-531351:15 TSH (19271) Comments: PATIENT WAS FASTINGPERFORMED BY: [facility] Mktzta6934 [address] RoadDublin [place] [id number] TSH 3.310 {uIU/mL} (Normal) Range: 0.450-4.500 46-Lom-723865:15 CALCIFIDIOL (57446) VIT D 25 Comments: PATIENT WAS FASTINGPERFORMED BY: CB [facility] Taenws3958 [address] RoadDublin [place] [id number] Vitamin D, 25-Hydroxy 35.7 ng/mL (Normal) Range: 30.0-100.0 Comments: Vitamin D deficiency has been defined by the [place] [facility] Hospitalcine and an Endocrine Society practice guideline as alevel of serum 25-OH vitamin D less than 20 ng/mL (1,2).The Endocrine Society went on to further define vitamin Dinsufficiency as a level between 21 and 29 ng/mL (2).1. IOM ([place] of Medicine). 2010. Dietary reference intakes for calcium and D. [place]: The National Academies Press.2. Azael MF, Leslee LEMON, Hillary PHILLIPS, et al. Evaluation, treatment, and prevention of vitamin D deficiency: an Endocrine Society clinical practice guideline. JCEM. 2010; 96(7):1911-30. 65-Iit-415525:15 URINALYSIS, W/ MICRO (36490) Comments: PATIENT WAS FASTINGPERFORMED BY: LabCoKindred Hospital at MorrisIcuiir6279 [facility] [id number] Microscopic Examination See below: (Normal) Nitrite, Urine Positive (Abnormal) Bilirubin Negative (Normal) Urobilinogen,Semi-Qn 0.2 mg/dL (Normal) Range: 0.0-1.9 Ketones Negative (Normal) Occult Blood Negative (Normal) Glucose Negative (Normal) Protein Negative (Normal) Appearance Clear (Normal) WBC Esterase 2+ (Abnormal) pH 6.5 (Normal) Range: 5.0-7.5 Urine-Color Yellow (Normal) Specific [place] 1.015 (Normal) Range: 1.005-1.030 47-Kql-836193:15 METABOLIC PANEL, COMPREHENSIVE Comments: PATIENT WAS FASTINGPERFORMED BY: LabCoKindred Hospital at MorrisKnaczq9149 [facility] [id number] (57572) ALT (SGPT) 19 [iU]/L (Normal) Range: 0-32 [...] Glucose, Serum 118 mg/dL (Abnormal) Range: 65-99 83-Xfh-711462:15 LIPID PANEL (44744) Comments: PATIENT WAS FASTINGPERFORMED BY: Next PerformanceKindred Hospital at MorrisPtlpmc8414 [facility] [id number] LDL/HDL Ratio 1.7 {ratio_units} (Normal) Range: 0.0-3.2 LDL Cholesterol Calc 90 mg/dL (Normal) Range: 0-99 VLDL Cholesterol Hillary 33 mg/dL (Normal) Range: 5-40 HDL Cholesterol 53 mg/dL (Normal) Comments: According to ATP-III Guidelines, HDL-C >59 mg/dL is considered anegative risk factor for CHD. Triglycerides 166 mg/dL (Abnormal) Range: 0-149 Cholesterol, Total 176 mg/dL (Normal) Range: 100-199 03-Ydb-981276:15 CBC WITH MANUAL DIFF Comments: PATIENT WAS FASTINGPERFORMED BY: LabKuapay Lcqxhp7742 [facility] [id number] Information: [id number] (45007) Immature Grans (Abs) 0.0 {x10E3/uL} (Normal) Range: [...] 3.77-5.28 WBC 7.0 {x10E3/uL} (Normal) Range: 3.4-10.8 28-Smn-068148:20 Blood Glucose , Office (68944) Blood Glucose , Office 102 (Normal) 22-Oaw-924526:20 HgA1C , Office (38986) HgA1C , Office 6.0 % (Normal) Range: 4.6 - 7.1 7-Nbi-715068:27 URINE VERÓNICA CULTURE-IDENTIFICATN Comments: PATIENT NOT FASTINGPERFORMED BY: LabCoSteven [place] 9125070 [facility] [id number] Information: [id number] (05607) Result 1 NG36 (Normal) Comments: No growth in 36 - 48 hours. Urine Culture,Comprehensive Final report (Normal) 0-Jkg-485600:03 URINALYSIS (73569) URINALYSIS neg for all (Normal) 96-Qkb-24907:31 URINE VERÓNICA CULTURE-SHARIFA COL Comments: PATIENT NOT FASTINGPERFORMED BY: LabCoSteven [place] 9125070 [facility] [id number] Information: SRC:UR [id number] COUNT (72341) Antimicrobial MIHEAD (Normal) Comments: S = Susceptible; [...] mL (Normal) Urine Final report Culture,Comprehensive (Normal) 41-Rkg-34199:26 Urinalysis, Office (45368) UA - LEUKOCYTE ESTERASE Moderate (Normal) UA - NITRITE Negative (Normal) URINE UROBILINGN SHARIFA TIMED Normal mg/dL (Normal) UA - PROTEIN Negative mg/dL (Normal) UA - PH 5 (Abnormal) UA - BLOOD Hemolyzed Small (Normal) UA - SPECIFIC GRAVITY 1.025 (Normal) UA - KETONES Negative mg/dL (Normal) UA - BILIRUBIN Negative (Normal) UA - GLUCOSE Negative (Normal) :52 LIPID PANEL (82596) Comments: PATIENT WAS FASTINGPERFORMED BY: FilmTrack70 [employer] [facility] HospitalAppShareECU [facility] [id number] Information: [id number] LDL/HDL Ratio 2.1 {ratio_units} (Normal) Range: 0.0-3.2 LDL Cholesterol Calc 111 mg/dL (Abnormal) Range: 0-99 VLDL Cholesterol Hillary 31 mg/dL (Normal) Range: 5-40 HDL Cholesterol 53 mg/dL (Normal) Comments: According to ATP-III Guidelines, HDL-C >59 mg/dL is considered anegative risk factor for CHD. Triglycerides 156 mg/dL (Abnormal) Range: 0-149 Cholesterol, Total 195 mg/dL (Normal) Range: 100-199 :52 HEPATIC FUNCTION PANEL (19800) Comments: PATIENT WAS FASTINGPERFORMED BY: FilmTrack70 RLJ EntertainmentECU [facility] [id number] ALT (SGPT) 17 [iU]/L (Normal) Range: 0-32 AST (SGOT) 23 [iU]/L (Normal) Range: 0-40 Alkaline Phosphatase, S 57 [iU]/L (Normal) Range: 39-117 Bilirubin, Direct 0.08 mg/dL (Normal) Range: 0.00-0.40 Bilirubin, Total 0.3 mg/dL (Normal) Range: 0.0-1.2 Albumin, Serum 4.3 g/dL (Normal) Range: 3.6-4.8 Protein, Total, Serum 7.2 g/dL (Normal) Range: 6.0-8.5 :52 CALCIFEDIOL (76146) Comments: PATIENT WAS FASTINGPERFORMED BY: SeoPult Epilna2307 [facility] [id number] Vitamin D, 25-Hydroxy 13.8 ng/mL (Abnormal) Range: 30.0-100.0 Comments: Vitamin D deficiency has been defined by the [place] of[place]icine and an Endocrine Society practice guideline as alevel of serum 25-OH vitamin D less than 20 ng/mL (1,2).The Endocrine Society went on to further define vitamin Dinsufficiency as a level between 21 and 29 ng/mL (2).1. IOM ([place] of Medicine). 2010. Dietary reference intakes for calcium and D. [place]: The National Academies Press.2. Azael MF, Leslee [place], Hillary PHILLIPS, et al. Evaluation, treatment, and prevention of vitamin D deficiency: an Endocrine Society clinical practice guideline. JCEM. 2010; 96(7):1911-30. 57-Ots-391175:38 Blood Glucose , Office (40829) Blood Glucose , Office 114 (Normal) 92-Nsi-832574:38 HgA1C , Office (69689) HgA1C , Office 5.8 % (Normal) Range: 4.6 - 7.1 13-Zyi-620934:23 Urinalysis, Office (64805) UA - BILIRUBIN Negative (Normal) UA - BLOOD Hemolyzed Trace (Normal) UA - GLUCOSE Negative (Normal) UA - KETONES Negative mg/dL (Normal) UA - LEUKOCYTE ESTERASE Small (Normal) UA - NITRITE Negative (Normal) UA - PH 5.0 (Normal) UA - PROTEIN Negative mg/dL (Normal) UA - SPECIFIC GRAVITY 1.025 (Normal) URINE UROBILINGN SAHRIFA TIMED Normal mg/dL (Normal) 78-Hhw-937003:50 Metabolic Panel, Basic Comments: PATIENT NOT FASTINGPERFORMED BY: CheckBonus LabCo Brrigt2674 [facility] [id number] Information: [id number] (69497) Calcium, Serum 9.9 mg/dL (Normal) Range: 8.6-10.2 [...] Glucose, Serum 84 mg/dL (Normal) Range: 65-99 40-Okf-570627:39 BRAIN WITHOUT CONTRAST Radiology Report See Note [...] Sweeney M.D.July 12, 2013 at 4:19:02 PM [id number] Signed PV/PV If you are the referring physician and would like to consult with theradiologist who provided this interpretation, please contact Petrona molina M.D. at [phone]. If this radiologist is unavailable, youwillbe directed to another radiologist to assist. If you are a patient with a question regarding this report, pleasecontactyour referring physician directly. Professional Interpretation Provided By: [employer], Phone , These documents contain legally protected [...] ITS IMPORTSign by Petrona Meek MD on 07/12/13 162 Sign by: Petrona Meek MD 1-Gjn-635606:39 CRE GFRAA 45 mL/min (Abnormal) GFR 37 [...] 3000 mL (Normal) UPCT 24.0 {HOURS} (Normal) 4-Dqw-693490:39 Metabolic Panel, Basic Comments: recheck in one week; PATIENT NOT FASTINGPERFORMED BY: [facility]6370 [facility] [id number] Information: [id number] (40600) Calcium, Serum 9.7 mg/dL (Normal) Range: 8.6-10.2 [...] Glucose, Serum 109 mg/dL (Abnormal) Range: 65-99 81-Wqd-52949:50 Metabolic Panel, Basic Comments: PATIENT NOT FASTINGPERFORMED BY: LabCoKindred Hospital at MorrisSltqyp1200 [facility] [id number] Information: [id number] (42063) Calcium, Serum 9.5 mg/dL (Normal) Range: 8.6-10.2 [...] Glucose, Serum 110 mg/dL (Abnormal) Range: 65-99 20-Elk-28032:29 HgA1C , Office (86668) HgA1C , Office 5.7 % (Normal) Range: 4.6 - 7.1 04-Zqw-192905:14 TSH (06890) Comments: PATIENT NOT FASTINGPERFORMED BY: [facility]6370 [facility] [id number] TSH 2.850 {uIU/mL} (Normal) Range: 0.450-4.500 :14 CBC, Platelets & Auto Comments: PATIENT NOT FASTINGPERFORMED BY: LabFormerly [facility]6370 [facility] [id number] Information: [id number] Diff (67211) Immature Grans (Abs) 0.0 {x10E3/uL} (Normal) Range: [...] 3.77-5.28 WBC 7.5 {x10E3/uL} (Normal) Range: 4.0-10.5 81-Vvg-908638:14 Metabolic Panel, Comprehensive Comments: PATIENT NOT FASTINGPERFORMED BY: LabCoKindred Hospital at MorrisHvtajn5670 [facility] [id number] (98874) ALT (SGPT) 19 [iU]/L (Normal) Range: 0-32 [...] Glucose, Serum 105 mg/dL (Abnormal) Range: 65-99 75-Tvr-068194:06 URINE VERÓNICA CULTURE-SHARIFA COL Comments: PATIENT NOT FASTINGPERFORMED BY: [facility]6370 [facility] [id number] Information: SRC:UR ADD [id number] COUNT (08563) Antimicrobial MIHEAD (Normal) Comments: S = Susceptible; [...] mL (Normal) Urine Final report Culture,Comprehensive (Normal) 96-Per-893594:09 Urinalysis, Office (51439) UA - BILIRUBIN Negative (Normal) UA - BLOOD Hemolyzed Moderate (Normal) UA - GLUCOSE Negative (Normal) UA - KETONES Negative mg/dL (Normal) UA - LEUKOCYTE ESTERASE Small (Normal) UA - NITRITE Negative (Normal) UA - PH 6.0 (Normal) UA - PROTEIN Negative mg/dL (Normal) UA - SPECIFIC GRAVITY 1.005 (Normal) URINE UROBILINGN SHARIFA TIMED 2 mg/dL (Normal) 2-Mvm-718697:04 Renal function Panel Comments: PATIENT NOT FASTINGPERFORMED BY: LabFormerly [facility]6370 [facility] [id number] Information: [id number] (32548) Albumin, Serum 4.1 g/dL (Normal) Range: 3.6-4.8 [...] Glucose, Serum 110 mg/dL (Abnormal) Range: 65-99 20-Eng-973415:22 CALCIFEDIOL (20338) Comments: PATIENT NOT FASTINGPERFORMED BY: Next Performance Cwgnsl4131 RLJ Entertainmentin [place] [id number] Vitamin D, 25-Hydroxy 16.7 ng/mL (Abnormal) Range: 30.0-100.0 Comments: Vitamin D deficiency has been defined by the [place] [facility]cine and an Endocrine Society practice guideline as alevel of serum 25-OH vitamin D less than 20 ng/mL (1,2).The Endocrine Society went on to further define vitamin Dinsufficiency as a level between 21 and 29 ng/mL (2).1. IOM ([place] of Medicine). 2010. Dietary reference intakes for calcium and D. [place]: The National Academies Press.2. Azael MF, Leslee LEMON, Hillary PHILLIPS, et al. Evaluation, treatment, and prevention of vitamin D deficiency: an Endocrine Society clinical practice guideline. JCEM. 2010; 96(7):1911-30. 48-Xad-074193:22 MAGNESIUM (02664) Comments: PATIENT NOT FASTINGPERFORMED BY: [facility] Gtyhll[address] [facility] Hospitalblin [place] [id number] Magnesium, Serum 2.3 mg/dL (Normal) Range: 1.6-2.6 73-Mdr-811692:22 T4, FREE (THYROXINE) (87891) Comments: PATIENT NOT FASTINGPERFORMED BY: [facility] Kugouw6008 [address] RoadDublin [place] [id number] T4,Free(Direct) 1.50 ng/dL (Normal) Range: 0.82-1.77 46-Nki-647166:22 T3, FREE (TRIDOTHYRONINE) (63393) Comments: PATIENT NOT FASTINGPERFORMED BY: [facility]6370 [facility] [id number] Triiodothyronine,Free,Serum 2.6 pg/mL (Normal) Range: 2.0-4.4 :22 TSH (65653) Comments: PATIENT NOT FASTINGPERFORMED BY: [facility]6370 [facility] [id number] TSH 1.920 {uIU/mL} (Normal) Range: 0.450-4.500 :22 CBC, Platelets & Auto Comments: PATIENT NOT FASTINGPERFORMED BY: [facility]6370 [facility] [id number] Information: [id number] Diff (21987) Immature Grans (Abs) 0.0 {x10E3/uL} (Normal) Range: [...] 3.77-5.28 WBC 8.5 {x10E3/uL} (Normal) Range: 4.0-10.5 84-Eqw-998520:22 Metabolic Panel, Comprehensive Comments: PATIENT NOT FASTINGPERFORMED BY: [facility] Xufabw6286 [facility] [id number] (85576) ALT (SGPT) 21 [iU]/L (Normal) Range: 0-32 [...] Glucose, Serum 97 mg/dL (Normal) Range: 65-99 1-Bby-290770:20 METABOLIC PANEL, COMPREHENSIVE Comments: PATIENT WAS FASTINGPERFORMED BY: Next PerformanceKindred Hospital at MorrisZoejap3056 [facility] [id number] (74106) ALT (SGPT) 19 [iU]/L (Normal) Range: 0-32 [...] Glucose, Serum 102 mg/dL (Abnormal) Range: 65-99 0-Hdp-698915:20 CBC WITH MANUAL DIFF Comments: PATIENT WAS FASTINGPERFORMED BY: [facility]6370 [facility] [id number] Information: [id number] (44207) Immature Grans (Abs) 0.0 {x10E3/uL} (Normal) Range: [...] 3.77-5.28 WBC 7.4 {x10E3/uL} (Normal) Range: 3.4-10.8 1-Imn-499601:20 LIPID PANEL (49397) Comments: PATIENT WAS FASTINGPERFORMED BY: LabCoKindred Hospital at MorrisMqlkwp0308 [facility] [id number] LDL/HDL Ratio 2.0 {ratio_units} (Normal) Range: 0.0-3.2 LDL Cholesterol Calc 109 mg/dL (Abnormal) Range: 0-99 VLDL Cholesterol Hillary 35 mg/dL (Normal) Range: 5-40 HDL Cholesterol 54 mg/dL (Normal) Comments: According to ATP-III Guidelines, HDL-C >59 mg/dL is considered anegative risk factor for CHD. Triglycerides 175 mg/dL (Abnormal) Range: 0-149 Cholesterol, Total 198 mg/dL (Normal) Range: 100-199 0-Qqz-303527:20 TSH (33228) Comments: PATIENT WAS FASTINGPERFORMED BY: LabCo Xlhijk4403 [address] [facility] [id number] TSH 2.720 {uIU/mL} (Normal) Range: 0.450-4.500 15-Gdj-065154:22 HgA1C , Office (11749) HgA1C , Office 6.0 % (Normal) Range: 4.6 - 7.1 39-Ugs-621977:22 Blood Glucose , Office (36430) Blood Glucose , Office 249 (Normal) Comments: has eaten in last 2h 44-Yom-394341:20 CHEST, PA AND LATERAL Radiology Report See [...] Signed:Anibal Lan M.D.November 022012 at 8:14:34 AM [id number] Signed GP/GP If you are the referring physician and would like to consult with theradiologist who provided this interpretation, please contact Eliecer Bui M.D. at [phone]. If this radiologist is unavailable, youwill be directed to another radiologist to assist. If you are a patient with a question regarding this report, pleasecontactyour referring physician directly. Professional Interpretation Provided By: [employer], Phone , These documents contain legally protected [...] destructionofthese documents. Dictated on 11/21/12 1717 by Chhaya ortiz MD,AguilariRakelranscribed on 11/22/12817 by ITS IMPORTSign by Anibal Lan MD on 11/22/12817 Sign by: Anibal Lan MD 62-Rjx-74204:19 VERÓNICA CULTURE-OTHER (38860) Comments: PATIENT NOT FASTINGPERFORMED BY: LabCoKindred Hospital at MorrisForcnu4998 [facility] [id number] Information: SRC:THRT [id number] Result 1 RRF (Normal) Comments: Routine respiratory duyen Upper Respiratory Culture Final report (Normal) 70-Csu-885182:33 Rapid Strep Test, Office (42664) Rapid Strep Test, Office Negative (Normal) 9-Ohm-303175:50 Celiac Disease Comprehensive Comments: PERFORMED BY: CheckBonus [facility] Ltjxlj3933 [facility] [id number] Immunoglobulin A, Qn, 364 mg/dL (Normal) Range: [...] Potassium, Serum 4.0 mmol/L Comments: PERFORMED BY: EMIL LabCoKindred Hospital at MorrisAcvnzz3965 [facility] [id number] 4:50 (Normal) Range: 3.5-5.2 5-Bsq-797090:30 CBCMD ANC 3.7 3/uL (Normal) Range: 2.0-7.7 [...] 4.2-5.4 WBC 7.0 {k/mm3} (Normal) Range: 4.4-11.0 2-Wej-952915:30 CMP GAP 11 (Normal) Range: 5-15 CO2 [...] 7-18 GLU 93 mg/dL (Normal) Range: 70-110 4-Jpd-876010:30 LIPID LDL 108 mg/dL (Normal) Range: 0-130 [...] Very High > or = 500 mg/dL 8-Pgz-429022:30 MIACRE MIALB 5.8 mg/L (Normal) tMICROCREAT 9.5 {mg/g_CRE} (Normal) CREU 60.7 mg/dL (Normal) 2-Xrb-311285:30 TSH 0.75 {uIU/mL} (Normal) Range: 0.358-3.74 :54 HgA1C , Office (74630) HgA1C , Office 5.5 % (Normal) Range: 4.6 - 7.1 74-Isf-37803:54 Blood Glucose , Office (91847) Blood Glucose , Office 116 (Normal) 87-Nbi-890672:26 URINE VERÓNICA CULTURE-SHARIFA COL Comments: PATIENT NOT FASTINGPERFORMED BY: EMIL [facility] Gtyahz9534 [address] [place] [id number] Information: SRC:CLAUDINE [id number] COUNT (42131) Result 1 MUG (Normal) Comments: Mixed urogenital flora50,000-100,000 colony forming units per mL Urine Final report (Normal) Culture,Comprehensive 53-Pyo-575699:46 Urinalysis, Office (74163) UA - BILIRUBIN Small (Normal) UA - BLOOD Hemolyzed Small (Normal) UA - GLUCOSE Negative (Normal) UA - KETONES Small mg/dL (Normal) UA - LEUKOCYTE ESTERASE Moderate (Normal) UA - NITRITE Negative (Normal) UA - PH 6.0 (Normal) UA - PROTEIN Trace mg/dL (Normal) UA - SPECIFIC GRAVITY 1.025 (Normal) URINE UROBILINGN SHARIFA TIMED Normal mg/dL (Normal) 49-Tey-697076:55 CHEST, PA AND LATERAL Radiology Report See Note (Normal) Comments: PROCEDURE: X-RAY CHEST REASON FOR EXAM: Female, 61 years old. Cough and shortness of breathforone week. TECHNIQUE: PA and lateral views of the chest. COMPARISON: Comparison is made with prior s tudy dated September. FINDINGS: The lungs are hyper [...] radiologist regarding this report, please call our 40O2hshbrsu line @ Dictated on 1518 by Rebeca Lan MDscribed on 11/23/11 1611 by ITS IMPORTSign by Anibal Lan MD on 11/23/11 1611 Sign by: Anibal Lan MD :51 Urinalysis, Office (20516) UA - BILIRUBIN Negative (Normal) UA - BLOOD Hemolyzed Small (Normal) UA - GLUCOSE Negative (Normal) UA - KETONES Negative mg/dL (Normal) UA - LEUKOCYTE ESTERASE Large (Normal) UA - NITRITE Negative (Normal) UA - PH 7.0 (Normal) UA - PROTEIN Negative mg/dL (Normal) UA - SPECIFIC GRAVITY 1.020 (Normal) URINE UROBILINGN SHARIFA TIMED 2 mg/dL (Normal) :51 HgA1C , Office (19681) HgA1C , Office 6.2 % (Normal) Range: 4.6 - 7.1 :50 Blood Glucose , Office (60389) Blood Glucose , Office 119 (Normal) :55 Urinalysis, Office (88388) UA - BILIRUBIN Negative (Normal) UA - [...] Ultrasound evaluation of the right upper quadrant wasperfor med with real-time ultrasonography and static grayscale imaging. [...] Muscle) 13 {Units} (Normal) Comments: PERFORMED BY: [employer] [place] [id number] :58 Antibody Range: 0-19 Comments: Negative 0 - 19 Weak positive 20 - 30 Moderate to strong positive >30 . Actin Antibodies are found in 52-85% of patients with autoimmune hepatitis or chronic active hepatitis and in 22% of patients with primary biliary cirrhosis. :58 Antinuclear Antibodies Direct Comments: PERFORMED BY: [employer]6370 [facility]otionUniversity [facility] [id number] GAYATRI Direct Negative (Normal) :5 Ceruloplasmin 31.6 mg/dL (Normal) Comments: PERFORMED BY: [employer] [place] [id number] Range: 16.0-45.0 :5 Ferritin, Serum 440 ng/mL (Abnormal) Comments: PERFORMED BY: [employer] [place] [id number] Range: 13-150 89-Svk-87309:58 Hepatitis Panel (4) Comments: PERFORMED BY: [facility]6370 [facility] [id number] Hep C Virus Ab 0.1 {s/co_ratio} (Normal) Range: 0.0-0.9 Comments: Negative: < 0.8 Indeterminate 0.8 - 0.9 Positive: > 0.9 . In order to reduce the incidence of a false positive result, the [facility] recommends that all s/co ratios between 1.0 and 10.9 be confirmed with additional RIBA or PCR testing. Hep B Core Ab, IgM Negative (Normal) HBsAg Screen Negative (Normal) Hep A Ab, IgM Negative (Normal) 25-Myc-90839:58 Iron and TIBC Comments: PERFORMED BY: [facility]6[address] [facility] [id number] Iron Saturation 37 % (Normal) Range: 15-55 Iron, Serum 96 ug/dL (Normal) Range: 35-155 UIBC 163 ug/dL (Normal) Range: 150-375 Iron Bind.Cap.(TIBC) 259 ug/dL (Normal) Range: 250-450 :58 Platelet Count on Citrated Comments: PERFORMED BY: [facility]6[address] [facility] [id number] Bld Plt Count, Citrated Bld 216 {X10E3/uL} Range: 140-415 (Normal) 11-Jun-2011 Written Authorization WAR (Normal) Comments: PERFORMED BY: [facility]6[address] [facility] [id number] 9:58 Comments: Written Authorization Received.Authorization received from [facility] [id number] by Elina Swain :30 HgA1C , Office (84594) HgA1C , Office 6.7 % (Normal) Range: 4.6 - 7.1 :30 Blood Glucose , Office (95482) Blood Glucose , Office 159 (Normal) :15 METABOLIC PANEL, COMPREHENSIVE Comments: PATIENT WAS FASTINGPERFORMED BY: [place] [id number] [facility] [id number] (40267) ALT (SGPT) 51 [iU]/L (Abnormal) Range: 0-40 [...] Glucose, Serum 111 mg/dL (Abnormal) Range: 65-99 03-Jun-20119:15 LIPID PANEL (83627) Comments: PATIENT WAS FASTINGPERFORMED BY: [facility] MorrisRcrbzt7691 [facility] [id number] LDL/HDL Ratio 1.8 {ratio_units} (Normal) Range: 0.0-3.2 LDL Cholesterol Calc 85 mg/dL (Normal) Range: 0-99 VLDL Cholesterol Hillary 33 mg/dL (Normal) Range: 5-40 HDL Cholesterol 46 mg/dL (Normal) Comments: According to ATP-III Guidelines, HDL-C >59 mg/dL is considered anegative risk factor for CHD. Triglycerides 167 mg/dL (Abnormal) Range: 0-149 Cholesterol, Total 164 mg/dL (Normal) Range: 100-199 03-Jun-20119:15 CBC WITH MANUAL DIFF Comments: PATIENT WAS FASTINGPERFORMED BY: [facility]CoKind[facility] at MorrisUjpdqm5397 [facility] [id number] Information: [id number] (90916) Immature Grans (Abs) 0.0 {x10E3/uL} (Normal) Range: [...] 3.80-5.10 WBC 8.3 {x10E3/uL} (Normal) Range: 4.0-10.5 53-Hkg-103692:26 Hepatic Function Panel (7) Comments: PERFORMED BY: [facility] PerformanceKind[facility] at MorrisVqwshl3398 [facility] [id number] ALT (SGPT) 63 [iU]/L (Abnormal) Range: 0-40 Alkaline Phosphatase, S 63 [iU]/L (Normal) Range: 25-165 AST (SGOT) 53 [iU]/L (Abnormal) Range: 0-40 Bilirubin, Direct 0.13 mg/dL (Normal) Range: 0.00-0.40 Bilirubin, Total 0.4 mg/dL (Normal) Range: 0.0-1.2 Albumin, Serum 4.5 g/dL (Normal) Range: 3.6-4.8 Protein, Total, Serum 7.8 g/dL (Normal) Range: 6.0-8.5 :26 Hepatitis Panel (4) Comments: PERFORMED BY: [facility] PerformanceKind[facility] at MorrisIjfwhj3418 [facility] [id number] Hep C Virus Ab <0.1 {s/co_ratio} (Normal) [...] (Normal) Hep A Ab, IgM Negative (Normal) 0-Gat-652558:04 LIVER D BILI 0.11 mg/dL (Normal) Range: 0.00-0.30 T BILI 0.30 mg/dL (Normal) Range: 0.00-1.00 ALK P 57 U/L (Normal) Range: 50-136 ALT 68 U/L (Normal) Range: 12-78 ALB 4.0 g/dL (Normal) Range: 3.4-5.0 AST 53 U/L (Abnormal) Range: 15-37 T PROT 8.0 g/dL (Normal) Range: 6.4-8.2 :59 HgA1C , Office (38496) HgA1C , Office 6.6 % (Normal) Range: 4.6 - 7.1 :59 Blood Glucose , Office (10076) Blood Glucose , Office 124 (Normal) :17 HgA1C , Office (43796) HgA1C , Office 6.4 % (Normal) Range: 4.6 - 7.1 :17 Blood Glucose , Office (30676) Blood Glucose , Office 141 (Normal) 60-Dii-926673:17 Hemoglobin Glyclated (HGB A1C) Comments: PATIENT WAS FASTINGPERFORMED BY: [employer]70 [facility] [id number] (39803) Hemoglobin A1c 6.0 % (Abnormal) Range: 4.8-5.6 Comments: Increased risk for diabetes: 5.7 - 6.4 Diabetes: >6.4 Glycemic control for adults with diabetes: <7.0 58-Pmi-462456:17 MICROALBUMIN: CREATININE RATIO Comments: PATIENT WAS FASTINGPERFORMED BY: [employer] [facility] [id number] (25359) AND (13751) Microalb/Creat Ratio 2.9 {mg/g_creat} (Normal) Range: 0.0-30.0 Creatinine, Urine 49.0 mg/dL (Normal) Range: 15.0-278.0 Microalbumin, Urine 1.4 ug/mL (Normal) Range: 0.0-17.0 42-Gyk-247794:17 METABOLIC PANEL, COMPREHENSIVE Comments: PATIENT WAS FASTINGPERFORMED BY: [employer] [facility] [id number] (02745) Alkaline Phosphatase, S 61 [iU]/L (Normal) Range: [...] to: Age Male Female <18 years 9 18 - 39 years 8 - 8 - 20 40 - 59 years 9 - 9 - 60 years and older 10 11 - 26 Creatinine, Serum 1.32 mg/dL [...] Glucose, Serum 116 mg/dL (Abnormal) Range: 65-99 82-Omq-543101:17 LIPID PANEL (09868) Comments: PATIENT WAS FASTINGPERFORMED BY: [facility]CoKind[facility] Hospital at MorrisYmhmed9422 [facility] [id number] LDL/HDL Ratio 2.2 {ratio_units} (Normal) Range: 0.0-3.2 HDL Cholesterol 50 mg/dL (Normal) Comments: According to ATP-III Guidelines, HDL-C >59 mg/dL is considered anegative risk factor for CHD. LDL Cholesterol Calc 109 mg/dL (Abnormal) Range: 0-99 VLDL Cholesterol Hillary 56 mg/dL (Abnormal) Range: 5-40 Cholesterol, Total 215 mg/dL (Abnormal) Range: 100-199 Triglycerides 282 mg/dL (Abnormal) Range: 0-149 39-Dtu-671054:17 CBC WITH MANUAL DIFF (14547) Comments: PATIENT WAS FASTINGPERFORMED BY: [facility] Qirtgt4118 [facility] [id number] Immature Grans (Abs) 0.0 {x10E3/uL} (Normal) Range: [...] 3.80-5.10 WBC 8.6 {x10E3/uL} (Normal) Range: 4.0-10.5 :57 Folic Acid Serum (98047) Comments: PATIENT NOT FASTINGPERFORMED BY: LabChemo BeaniesKindred Hospital at MorrisWfiiak3426 [facility] [id number] Folate (Folic Acid), Serum 12.6 ng/mL (Normal) Comments: Indeterminate: 2.2 - 3.0Deficient: <2.2 :57 Vitamin B-12 (cyanocobalamin) Comments: PATIENT NOT FASTINGPERFORMED BY: Next PerformanceKindred Hospital at MorrisIdcnia1863 [facility] [id number] (28895) Vitamin B12 551 pg/mL (Normal) Range: 211-946 :57 CBC with manual diff Comments: PATIENT NOT FASTINGPERFORMED BY: DocLandingShelly [place] [id number] [facility] [id number] Information: [id number] (58457) Baso (Absolute) 0.1 {x10E3/uL} (Normal) Range: 0.0-0.2 [...] 3.80-5.10 WBC 9.4 {x10E3/uL} (Normal) Range: 4.0-10.5 33-Kun-098465:57 Metabolic Panel, Comprehensive Comments: PATIENT NOT FASTINGPERFORMED BY: LabCoKindred Hospital at MorrisApboox8527 [facility] [id number] (24792) ALT (SGPT) 18 [iU]/L (Normal) Range: 0-40 [...] mg/dL (Abnormal) Range: 65-99 :57 DRUG ASSAY-LITHIUM (16119) Comments: PATIENT NOT FASTINGPERFORMED BY: [employer] Any.DO [facility] [id number] [place] (Eskalith), Serum 1.0 mmol/L (Normal) Range: 0.6-1.4 Comments: Detection Limit = 0.1<0.1 indicates None Detected :57 T4, FREE (THYROXINE) (59264) Comments: PATIENT NOT FASTINGPERFORMED BY: [employer] Bvtvwf0693 [facility] [id number] T4,Free(Direct) 1.17 ng/dL (Normal) Range: 0.82-1.77 :57 T3, FREE (TRIDOTHYRONINE) (20945) Comments: PATIENT NOT FASTINGPERFORMED BY: [employer] Vhxpvz7375 [facility] [id number] Triiodothyronine,Free,Serum 2.1 pg/mL (Normal) Range: 2.0-4.4 :57 TSH (13426) Comments: PATIENT NOT FASTINGPERFORMED BY: [employer] Yikkvz2697 [facility] [id number] TSH 4.080 {uIU/mL} (Normal) Range: 0.450-4.500 41-Bfq-866496:43 HgA1C , Office (29146) HgA1C , Office 5.3 % (Normal) Range: 4.6 - 7.1 :43 Blood Glucose , Office (42676) Blood Glucose , Office 125 (Normal) :4 [...] 136-145 GLU 84 mg/dL (Normal) Range: 70-110 63-Ryd-010175:42 LI 0.60 mmol/L (Normal) Comments: Therapeutic Range: 0.60 - 1.20 43-Wrf-014669:58 Thin prep Pap Comments: Source.............Cervical;EndocervicalNo. of containers..01 CYTYC Thin Prep VialPATIENT NOT FASTINGPERFORMED BY: [facility] [address] [id number] Information: [id number] (65793) Note: PAPSMR (Normal) Comments: The Pap smear [...] cases of atrophy.V 72.31 ; Routine gynecological examinationRaxander Gonzalez Donor Recruitment Manager (ASCP) 43-Rsh-167675:00 TSH (45420) Comments: PATIENT NOT FASTINGPERFORMED BY: [facility] Dfchqp1603 [facility] [id number] TSH 3.440 {uIU/mL} (Normal) Range: 0.450-4.500 57-Eex-492178:00 CBC (Auto) (28956) Comments: PATIENT NOT FASTINGPERFORMED BY: [place] 4321070 [facility] [id number] Information: [id number] Platelets 258 {x10E3/uL} (Normal) Range: 140-415 RDW 13.6 % (Normal) Range: 11.7-15.0 Hematocrit 43.5 % (Normal) Range: 34.0-44.0 MCH 31.6 pg (Normal) Range: 27.0-34.0 MCHC 33.6 g/dL (Normal) Range: 32.0-36.0 MCV 94 fL (Normal) Range: 80-98 Hemoglobin 14.6 g/dL (Normal) Range: 11.5-15.0 RBC 4.61 {x10E6/uL} (Normal) Range: 3.80-5.10 WBC 8.6 {x10E3/uL} (Normal) Range: 4.0-10.5 40-Jrm-887872:00 Metabolic Panel, Basic Comments: PATIENT NOT FASTINGPERFORMED BY: LabCoKindred Hospital at MorrisPwzgec4108 [facility] [id number] (91339) Calcium, Serum 9.1 mg/dL (Normal) Range: 8.6-10.2 [...] Glucose, Serum 111 mg/dL (Abnormal) Range: 65-99 93-Frn-132968:00 DRUG ASSAY-LITHIUM (03995) Comments: all these labs standing order prn; PATIENT NOT FASTINGPERFORMED BY: LabCoKindred Hospital at MorrisPqujbi2054 [facility] [id number] [place] (Eskalith), Serum 0.9 mmol/L (Normal) Range: 0.6-1.4 Comments: Detection Limit = 0.1<0.1 indicates None Detected 67-Idp-42998:16 METABOLIC PANEL, COMPREHENSIVE Comments: PATIENT NOT FASTINGPERFORMED BY: [facility]CoKindred Hospital at MorrisCltqkg8804 [facility] [id number] (69793) A/G Ratio 1.3 (Normal) Range: 1.1-2.5 Alkaline [...] Glucose, Serum 207 mg/dL (Abnormal) Range: 65-99 57-Zic-97836:16 CBC WITH MANUAL DIFF Comments: PATIENT NOT FASTINGPERFORMED BY: [facility] Vetmos9981 [facility] [id number] Information: [id number] (46515) Baso (Absolute) 0.1 {x10E3/uL} (Normal) Range: 0.0-0.2 [...] CREATININE RATIO Comments: PATIENT NOT FASTINGPERFORMED BY: [facility]LandingFormerly [facility]6370 [facility] [id number] (25441) AND (81734) Microalb/Creat Ratio 6.2 {mg/g_creat} (Normal) Range: 0.0-30.0 Microalbumin, Urine 2.5 ug/mL (Normal) Range: 0.0-17.0 Creatinine, Urine 40.1 mg/dL (Normal) Range: 15.0-278.0 :38 HgA1C , Office (57141) HgA1C , Office 6.6 % (Normal) Range: 4.6 - 7.1 :38 Blood Glucose , Office (55082) Blood Glucose , Office 214 (Normal) 51-Fjk-264501:05 URINE VERÓNICA CULTURE-IDENTIFICATN Comments: PATIENT NOT FASTINGPERFORMED BY: [facility]6370 [facility] [id number] Information: [id number] (33127) Antimicrobial MIHEAD (Normal) Comments: S = Susceptible; [...] mL (Normal) Urine Final report (Normal) Culture,Comprehensive 87-Gcb-424443:23 CHEST, PA AND LATERAL (MT) Radiology Report See Note (Normal) Comments: Exam Number: [id number] CLINICAL:58-year-old female with cough, pain and shortness [...] otherwise unremarkable. Reported By: SISI MART Dr. 62-Iek-42598:23 B.pertussisB.parapertussis PCR Comments: PERFORMED BY: ELIESER WgnqTlv5367 [facility] [id number] Bordetella parapertussis DNA Negative (Normal) Comments: .This test was developed and its performance characteristics determinedby [employer]. It has not been cleared or approved by theU.S. Food and Drug Administration. The FDA has determined that s uchclearance or approval is not necessary. This test is used for clinicalpurposes. It should not be regarded as investigational or research. Bordetella pertussis DNA Negative (Normal) 66-Bne-927875:50 HgA1C , Office (86084) HgA1C , Office 5.5 % (Normal) Range: 4.6 - 7.1 75-Mxp-757695:50 Blood Glucose , Office (90621) Blood Glucose , Office 90 (Normal) 66-Gbx-67195:33 HgA1C , Office (58869) HgA1C , Office 5.6 % (Normal) Range: 4.6 - 7.1 :41 HgA1C , Office (85890) HgA1C , Office 5.5 % (Normal) Range: 4.6 - 7.1 Comments: :41 Blood Glucose , Office (98490) Comments: 89 Blood Glucose , Office 89 (Normal) Comments: :15 CBC HCT 42.8 % (Normal) Range: [...] (Normal) Range: 0.34-4.82 :42 HgA1C , Office (05486) HgA1C , Office 5.4 % (Normal) Range: 4.6 - 7.1 :42 Blood Glucose , Office (92150) Blood Glucose , Office 103 (Normal) :20 CBC HCT 44.0 % (Normal) Range: 37-47 HGB 15.2 g/dL (Normal) Range: 12.0-16.0 MCH 31.7 pg (Normal) Range: 27.0-32.0 MCHC 34.6 g/dL (Normal) Range: 32-36 MCV 91.5 fL (Normal) Range: 81-99 PLT 306 K/mm3 (Normal) Range: 150-450 RBC 4.81 {M/mm3} (Normal) Range: 4.2-5.4 RDW 12.2 % (Normal) Range: 11.6-14.6 WBC 6.7 K/mm3 (Normal) Range: 4.4-11.0 42-Kpy-572268:20 COMP METABOLIC A/G 1.0 {RATIO} (Normal) Range: [...] T PROT 8.0 g/dL (Normal) Range: 6.4-8.2 79-Ebr-290880:20 LIPID CHOL 148 mg/dL (Normal) Comments: <200 [...] mg/dL VLDL 30 mg/dL (Normal) Range: 5-40 00-Mtd-466285:20 ROUTINE UA BILIRUBIN URINE SeeNote (Normal) Comments: [...] 0.2 EU/dl (Normal) Range: 0.2 - 1.0 05-Fvo-80410:06 THYROID (HP) Radiology Report See Note (Normal) Comments: Exam Number: [id number] THYROID ULTRASOUND HISTORYGoiter. There is borderline increase [...] 03, 2007. Reported By: PETRONA REGALADO M.D. 21-Fwd-47090:20 MAMM, UILAT DIAG DIGITAL & CAD Radiology Report See Note (Normal) Comments: Exam Number: [id number] UNILATERAL LEFT DIAGNOSTIC MAMMOGRAPHY CLINICAL STATEMENTLeft breast [...] The mammogramswere also examined with computer-aided detection software([employer]). Reported By: REID KRUEGER M.D. 6-Zat-722941: TSH 0.94 {uIU/mL} Range: 0.34-4.82 50 (Normal) 6-Msv-636239:06 MAMM, BILAT SCRN DIGITAL & CAD Radiology Report See Note (Normal) Comments: Exam Number: [id number] MAMMOGRAM, BILATERAL SCREENING DIGITAL AND CAD HISTORYRoutine [...] was rendered by a radiologist certified under theMammogra phy Quality Standards Act of 1992 (MQSA). The mammograms werealso examined with computer-aided detection software ([employer].). Reported By: PETRONA REGALADO M.D. 4-Fai-803612:05 THYROID (HP) Radiology Report See Note (Normal) Comments: Exam Number: [id number] THYROID ULTRASOUND HISTORYGoiter. High resolution real time [...] 6 months. Reported By: PETRONA REGALADO M.D. 90-Ovt-367391:22 HgA1C , Office (58786) HgA1C , Office 5.9 % (Normal) Range: 4.6 - 7.1 22-Dke-193187:22 Blood Glucose , Office (54497) Blood Glucose , Office 88 (Normal) Plan of Care Name Dates Details Instructions Pain in both knees, unspecified chronicity : Knee Injections-L Indication: Pain in both knees, unspecified chronicity Pain in both knees, unspecified chronicity : Knee Injections-R Indication: Pain in both knees, unspecified chronicity Chest pain : Reviewed Lab Indication: Chest [...] II, controlled Stress incontinence, female : Reviewed Ex Chef Letter Indication: Stress incontinence, female Diabetes mellitus [...] acute Planned Observations VITAMIN B12 AND FOLATES (28465)Indication: Neuropathic pain On: :08 Request Blood Glucose , Office (93213)Indication: Diabetes mellitus type II, controlled On: 85-Xrf-00927:04 Request LIPID PANEL (39939)Indication: Neuropathic pain On: 99-Pok-11351:54 Request Blood Glucose , Office (17973)Indication: Diabetes mellitus type II, controlled On: 02-Nov-20178:55 Request D-Dimer (59958)Indication: Shortness of breath On: 36-Xax-795256:19 Request Metabolic Panel, Comprehensive (15487)Indication: Diabetes mellitus type II, controlled On: :19 Request Comments: Nov 2017 LIPID PANEL (48616)Indication: Diabetes mellitus type II, controlled On: 32-Irj-136343:19 Request Comments: Nov 2017 URINALYSIS (66999)Indication: Diabetes mellitus type II, controlled On: 33-Cii-943961:19 Request Comments: Nov 2017 TSH (38694)Indication: Diabetes mellitus type II, controlled On: :18 Request Comments: Nov 2017 CBC, Platelets & Auto Diff (14265)Indication: Diabetes mellitus type II, controlled On: 52-Dwo-161043:18 Request Comments: Nov 2017 MICROALBUMIN: CREATININE RATIO (31707) AND (12863)Indication: Diabetes mellitus type II, controlled On: 54-Oex-455148:18 Request Comments: Nov 2017 HgA1C , Office (27166)Indication: Diabetes mellitus type II, controlled On: 76-Ixf-421790:44 Request Anaerobic & Aerobic Culture (33349)Indication: Mouth pain On: 2-Hjo-157045:11 Request Metabolic Panel, Comprehensive (27394)Indication: Chronic kidney disease (CKD), stage I On: 62-Jds-350557:50 Request Comments: 2 weeks Metabolic Panel, Comprehensive (15959)Indication: Diabetes mellitus type II, controlled On: 99-Ych-658536:56 Request Comments: today URINALYSIS (22699)Indication: Chronic kidney disease (CKD), stage I On: 84-Dbo-831291:52 Request Comments: Jul 2017 MICROALBUMIN: CREATININE RATIO (65098) AND (19805)Indication: Chronic kidney disease (CKD), stage I On: 27-Ckf-088122:52 Request Comments: jul 2017 Lipid Panel (57532)Indication: Hypertension (Renamed from BP (high blood pressure)) On: 30-Tgq-677394:52 Request Comments: Jul 2017 TSH (84341)Indication: Leg weakness On: 66-Vsy-191817:52 Request Comments: Jul 2017 CBC, Platelets & Auto Diff (86829)Indication: Leg weakness On: 93-Sjj-492189:52 Request Comments: jul 2017 METABOLIC PANEL, COMPREHENSIVE (25135)Indication: Weakness On: 51-Cst-906106:55 Request METABOLIC PANEL, COMPREHENSIVE (47595)Indication: Hypokalemia On: 97-Pwy-27091:43 Request Comments: STAT SED RATE ERYTHROCYTE (52975)Indication: Weakness On: 55-Fmo-347574:29 Request TSH (THYROID STIMULATING HORMONE) (94768)Indication: Unspecified abnormal involuntary movements On: 30-Znf-262957:17 Request METABOLIC PANEL, COMPREHENSIVE (66009)Indication: Unspecified abnormal involuntary movements On: :17 Request CBC, PLATELETS & AUT DIFF (69552)Indication: Unspecified abnormal involuntary movements On: 84-Zlf-916246:17 Request URINE VERÓNICA CULTURE-IDENTIFICATN (52143)Indication: Weakness On: :07 Request Blood Glucose , Office (02093)Indication: Unspecified abnormal involuntary movements On: 20-Bap-43586:59 Request VITAMIN B12 AND FOLATES (29819)Indication: Unspecified abnormal involuntary movements On: 79-Weq-90514:57 Request SPEP (34353)Indication: Elevated serum creatinine On: 47-Bfe-873618:31 Request CALCIFIDIOL (75789) VIT D 25Indication: Vitamin D deficiency (Renamed from Avitaminosis D) On: : Request TSH (31378)Indication: Hypothyroidism On: : Request MICROALBUMIN: CREATININE RATIO (61526) AND (24575)Indication: Diabetes mellitus type II, controlled On: : Request METABOLIC PANEL, COMPREHENSIVE (31494)Indication: Diabetes mellitus type II, controlled On: : Request LIPID PANEL (43096)Indication: Diabetes mellitus type II, controlled On: : Request CBC with auto diff (64827)Indication: Diabetes mellitus type II, controlled On: : Request CALCIFIDIOL (05841) VIT D 25Indication: Vitamin D deficiency (Renamed from Avitaminosis D) On: 93-Bbu-345364:15 Request Comments: in three months (approximately) METABOLIC PANEL, COMPREHENSIVE (13175)Indication: Diabetes mellitus type II, controlled On: 84-Wik-212868:15 Request Comments: in three months (approximately) SODIUM URINE (59067)Indication: Hyponatremia On: 7-Iwd-753048:51 Request OSMOLALITY URINE (93528)Indication: Hyponatremia On: 8-Diw-811448:50 Request OSMOLALITY BLOOD (67509)Indication: Hyponatremia On: 0-Krl-296964:50 Request ASSAY, TROPONIN, QUANTITATIVE (aka Troponin I) (70189)Indication: Chest pain On: 17-Hhg-558017:40 Request Comments: stat D-Dimer (00954)Indication: Chest pain On: :40 Request Comments: stat TSH (18431)Indication: Chest pain On: :40 Request CBC WITH MANUAL DIFF (69389)Indication: Chest pain On: :40 Request METABOLIC PANEL, COMPREHENSIVE (50082)Indication: Chest pain On: 42-Pjg-954144:40 Request URINE VERÓNICA CULTURE (SHARIFA COL COUNT) (85219)Indication: Dysuria (Renamed from Difficult or painful urination) On: 57-Zpj-386033:24 Request Metabolic Panel, Comprehensive (87103)Indication: Hypertension (Renamed from BP (high blood pressure)) On: 90-Gvm-491075:56 Request Metabolic Panel, Basic (75025)Indication: Elevated LFTs On: 23-Qyq-393129:16 Request 24 hour urine for Protein (73955)Indication: Elevated serum creatinine On: 31-Ass-971822:40 Request Comments: recheck in one week CREATININE CLEARANCE (22492)Indication: Elevated serum creatinine On: 43-Ruj-726655:39 Request Comments: recheck in one week Blood Glucose , Office (48236)Indication: Diabetes mellitus type II, controlled On: 94-Sqn-76905:29 Request METABOLIC PANEL, COMPREHENSIVE (90563)Indication: Hypokalemia (Renamed from Decreased potassium in the blood) On: 27-Dbd-554402:52 Request MICROALBUMIN: CREATININE RATIO (85394) AND (95818)Indication: Diabetes mellitus type II, controlled On: 58-Zmn-825127:14 Request FLURESCNT ANTIB SCRN EA (19949) celiac profileIndication: Irritable bowel syndrome (Renamed from Functional bowel disease) On: 0-Zqo-659943:58 Request IMMUNOASSAY, ANALYTE (NON-INFECT) (23563) celiac profileIndication: Irritable bowel syndrome (Renamed from Functional bowel disease) On: 8-Lkk-394230:58 Request IGA/IGD/IGG/IGM-EACH (63409) celiac profileIndication: Irritable bowel syndrome (Renamed from Functional bowel disease) On: 2-Wux-809015:58 Request Potassium Serum (28071)Indication: Hypokalemia (Renamed from Decreased potassium in the blood) On: 0-Muj-385099:58 Request Celiac Disease Comphrehensive Profile (59691)Indication: Irritable bowel syndrome (Renamed from Functional bowel disease) On: 04-Nov-20129:56 Request METABOLIC PANEL, COMPREHENSIVE (60059)Indication: Diabetes mellitus type II, controlled On: 10-Xya-502424:32 Request LIPID PANEL (05317)Indication: Diabetes mellitus type II, controlled On: 89-Nms-658306:32 Request CBC WITH MANUAL DIFF (92286)Indication: Diabetes mellitus type II, controlled On: 64-Dpv-151057:32 Request MICROALBUMIN: CREATININE RATIO (97378) AND (49203)Indication: Diabetes mellitus type II, controlled On: :32 Request TSH (50748)Indication: Hypothyroidism On: :32 Request TSH (53273)Indication: Hypothyroidism On: : Request MICROALBUMIN: CREATININE RATIO (27721) AND (93663)Indication: Diabetes mellitus type II, controlled On: : Request METABOLIC PANEL, COMPREHENSIVE (72401)Indication: Diabetes mellitus type II, controlled On: : Request LIPID PANEL (78557)Indication: Diabetes mellitus type II, controlled On: : Request CBC WITH MANUAL DIFF (01924)Indication: Diabetes mellitus type II, controlled On: : Request URINE VERÓNICA CULTURE-SHARIFA COL COUNT (36015)Indication: Dysuria (Renamed from Difficult or painful urination) On: 67-Jzv-531503:15 Request URINE VERÓNICA CULTURE-SHARIFA COL COUNT (73699)Indication: Dysuria (Renamed from Difficult or painful urination) On: 41-Onx-851381:55 Request Ferritin (89148)Indication: Elevated LFTs On: 96-Hah-471981:50 Request Comments: repeat now per Dr. Cabral with iron level Iron Binding Capacity (TIBC) (61446)Indication: Elevated LFTs On: 05-Avd-186376:50 Request Iron (00627)Indication: Elevated LFTs On: 83-Ttp-125723:49 Request CBC (Auto) (92840)Indication: Thrombocytopenia, unspecified On: 18-Qub-613520:01 Request Comments: nonclumping tube HEPATITIS PANEL (29220)Indication: Elevated LFTs On: : Request FERRITIN (80844)Indication: Elevated LFTs On: 63-Qnz-567479:00 Request CERULOPLASMIN (40184)Indication: Elevated LFTs On: 02-Lnv-169976:00 Request ASM (ANTI SMOOTH MUSCLE ANTIBODY) (52186)Indication: Elevated LFTs On: 06-Cqy-025007:00 Request GAYATRI (ANTINUCLEAR ANTIBODY) (60801)Indication: Elevated LFTs On: 25-Xhe-394641:00 Request HEPATITIS PANEL ([id number])Indication: Elevated LFTs On: :01 Request TSH ([id number])Indication: Hypothyroidism On: 38-Vbt-267561:16 Request LIPID PANEL ([id number])Indication: Diabetes mellitus type II, controlled On: 05-Buf-859344:15 Request DRUG ASSAY-LITHIUM ([id number])Indication: Bipolar affective disorder, mixed On: 20-Mwd-453815:14 Request Metabolic Panel, Basic ([id number])Indication: Bipolar affective disorder, mixed On: 36-Clv-484694:13 Request Metabolic Panel, Basic ([id number])Indication: Bipolar affective disorder, mixed On: 95-Qbu-011326:22 Request DRUG ASSAY-LITHIUM ([id number])Indication: Bipolar affective disorder, mixed On: 27-Mmz-032400:22 Request Comments: 2 months Urinalysis, Office ([id number])Indication: Urinary frequency On: 19-Cbn-218951:27 Request Comments: done pms HEPATIC FUNCTION PANEL ([id number])Indication: Other and unspecified hyperlipidemia On: 8-Exk-768091:45 Request Lipid Panel ([id number])Indication: Other and unspecified hyperlipidemia On: 5-Qla-203202:45 Request Lipid Panel ([id number])Indication: Other and unspecified hyperlipidemia On: 35-Nrs-533770:17 Request CBC, Platelets & Auto Diff ([id number])Indication: Other and unspecified hyperlipidemia On: 84-Gzn-175686:17 Request Metabolic Panel, Comprehensive ([id number])Indication: Other and unspecified hyperlipidemia On: 19-Jqw-037735:17 Request TSH ([id number])Indication: Hypothyroidism On: 56-Qsp-454021:15 Request Metabolic Panel, Basic ([id number])Indication: Other and unspecified hyperlipidemia On: :55 Request Lipid Panel ([id number])Indication: Other and unspecified hyperlipidemia On: :55 Request Comments: in three months (approximately) CBC (Auto) ([id number])Indication: Intestinal disaccharidase deficiencies and disaccharide malabsorption On: :56 Request Metabolic Panel, Comprehensive ([id number])Indication: Intestinal disaccharidase deficiencies and disaccharide malabsorption On: :56 Request Lipid Panel ([id number])Indication: Intestinal disaccharidase deficiencies and disaccharide malabsorption On: :56 Request Comments: in three months (approximately) MICROALBUMIN 24 HOUR OR RANDOM On: 29-Kzd-188937:04 Request ([id number]) CREATININE CLEARANCE (25254) On: 65-Xdg-694634:03 Request CBC (Auto) ([id number])Indication: Unspecified disorder of kidney and ureter On: :53 Request Lipid Panel ([id number])Indication: Unspecified disorder of kidney and ureter On: :53 Request Metabolic Panel, Comprehensive ([id number])Indication: Unspecified disorder of kidney and ureter On: :53 Request TSH ([id number])Indication: Hypothyroidism On: :53 Request TSH ([id number])Indication: Hypothyroidism On: 27-Meo-004745:18 Request URINALYSIS ([id number])Indication: Intestinal disaccharidase deficiencies and disaccharide malabsorption On: 50-Xjh-961598:43 Request CBC (Auto) ([id number])Indication: Intestinal disaccharidase deficiencies and disaccharide malabsorption On: 71-Zek-444317:43 Request Lipid Panel ([id number])Indication: Intestinal disaccharidase deficiencies and disaccharide malabsorption On: 92-Nfi-404493:43 Request Metabolic Panel, Comprehensive ([id number])Indication: Intestinal disaccharidase deficiencies and disaccharide malabsorption On: 85-Hnb-676818:43 Request Planned Procedures COMPUTED TOMOGRAPHY ANGIOGRAPHY OF On: 01-Aug-2018 Intent CHEST FOR PULMONARY EMBOLISM Comments: stat for PE ([id number])By: Eli Bowman CNP, CNP, Mary E Echo CompleteBy: Eli Bowman CNP On: 29-Jul-2018 Intent Eli Bowman CNP Spirometry ([id number])By: Colby WATTERS On: 29-Jul-2018 Intent Eli Mcelroy CNP Holter Monitor 24 hrsBy: Colby WATTERS, On: 29-Jul-2018 Intent Eli Mcelroy CNP CHEST XRAY, PA & LATERAL ([id number])By: On: 29-Jul-2018 Intent Eli Bowman CNP, CNP, Mary E ELECTROCARDIOGRAM, COMPLETE (ECG) On: 29-Jul-2018 Intent ([id number])By: Colby WATTERS Eli Bowman Comments: sinus rhythm Eli WATTERS Aerosol Treatment ([id number])By: Colby On: 29-Jul-2018 Intent Eli WATTERS CNP, Mary E Flu Vaccine (Quadrivalent) 88782Lw: On: 22-Jul-2018 Intent Tejal Ceron Comments: Lot #[id number]-L dltd, IMDose prefilled syringegiven by: Rosalie Ceron MA Toradol Injection, 30 mg ([id number])By: On: 09-May-2018 Intent Nunu Root Comments: lot [id number] 12/2029mgIMleft gmas, INTERNAL CONTROL CONSULTANT SCREENING DIGITAL TOMOSYNTHESIS OF On: 18-Apr-2018 Intent BREAST ([id number])By: Colby WATTERS Eli Mcelroy CNP DEXA SCAN AXIAL SKELETON ([id number])By: On: 18-Apr-2018 Intent Lisamitchezio Eli WATTERS CNP, Mary E Toradol Injection, 30 mg ([id number])By: On: 22-Mar-2018 Intent Nunu Root Comments: toradol 30mg injection lot:[id number]:10/2019R GMpt tolerated wellMSMITH,INTERNAL CONTROL CONSULTANT COMPLETE ELECTROMYOGRAPHY (EMG) WITH On: 22-Mar-2018 Intent NERVE CONDUCTION STUDIES OF EACH Comments: Bilateral lower legs EXTREMITY ([id number])By: Nunu Root EMGBy: José Miguelezio Eli WATTERS CNP, On: 03-Jan-2018 Intent Eli Lubin Comments: both legs Nerve ConductionBy: José Miguelezio Eli WATTERS On: 03-Jan-2018 Intent Eli Hurtado CNP Comments: both legs Toradol Injection, 30 mg ([id number])By: On: 23-Dec-2017 Intent Mayda Dobbins DO Comments: toradol 30mg injectionlot: [id number]: 06/2018L GMpt tolerated wellAD INTERNAL CONTROL CONSULTANT Spirometry ([id number])By: Dk, On: 16-Nov-2017 Intent Nunu Comments: Normal spirometry Aerosol Treatment ([id number])By: Shilpi On: 30-Aug-2017 Intent Mayda COLEMAN Comments: less noise with forced exp Solu- Medrol Injection, 125mg On: 30-Aug-2017 Intent ([id number])By: Mayda Dobbins DO Comments: solumedrol 125mg injectionlot: [id number]: GMpt tolerated wellAD INTERNAL CONTROL CONSULTANT Radiology - Chest- PA and LatBy: On: 30-Aug-2017 Intent Mayda Dobbins DO Solu- Medrol Injection, 125mg On: 26-Aug-2017 Intent ([id number])By: Mayda Dobbins DO Comments: solumedrol 125mg injectionlot: [id number]: 12/2019L GMpt tolerated wellAD INTERNAL CONTROL CONSULTANT Aerosol Treatment ([id number])By: Shilpi On: 26-Aug-2017 Mayda Bailey DO Comments: [place] Spirometry (31784)By: Shilpi COLEMAN, On: 26-Aug-2017 Intent Mayda Comments: mild obstruction Radiology - Shoulder - RightBy: On: 20-Jul-2017 Intent Edita Cabral MD Radiology - Lumbar SpineBy: Misha On: 20-Jul-2017 Intent Edita PROCTOR DRAIN/INJECT MAJOR JOINT OR BURSA On: 13-Apr-2017 Intent ([id number])By: Eli Bowman CNP Comments: injevted left knee today Eli WATTERS PHYSICAL THERAPY ([id number])By: Dk On: 08-Apr-2017 Intent Nunu Radiology - Knee - RightBy: Dk On: 08-Apr-2017 Intent Nunu Radiology - Knee - LeftBy: Dk, On: 08-Apr-2017 Intent Nunu ATTENDED SLEEP STUDY ([id number])By: On: 18-Jan-2017 Intent Eli Bowman CNP, CNP, Mary E DEXA SCAN AXIAL SKELETON ([id number])By: On: 24-Nov-2016 Intent Donnie Gonzales MD MAMMOGRAM, SCREENING, BOTH BREAST On: 24-Nov-2016 Intent ([id number])By: Donnie Gonzales MD US KIDNEY COMPLETE ([id number])By: Janet On: 16-Jul-2016 Intent Donnie PROCTOR EsophagramBy: Edita Cabral MD On: 06-Feb-2016 Intent Comments: 12mm tablet X-RAY EXAM OF ESOPHAGUS ([id number]) - On: 04-Feb-2016 Intent Barium Swallow with 12mm tabletBy: Donnie Gonzales MD Carotid DopplerBy: Edita Cabral MD On: 16-Sep-2015 Intent M TD VACCINE ADULT ([id number])By: Misha On: 16-Sep-2015 Intent Edita PROCTOR TDAP VACCINE >7 IM ([id number])By: On: 16-Sep-2015 Intent Edita Cabral MD Pap Smear, Medicare ([id number])By: On: 16-Sep-2015 Intent Edita Cabral MD MAMMOGRAM, SCREENING, BOTH BREAST On: 16-Sep-2015 Intent ([id number])By: Edita Cabral MD Renal Artery DopplerBy: Misha PROCTOR, On: 04-Feb-2015 Intent Edita Clinton Ultrasound - RenalBy: Misha PROCTOR, On: 04-Feb-2015 Intent Edita Clinton DEXA SCAN AXIAL SKELETON ([id number])By: On: 17-Jan-2015 Intent Edita Cabral MD Comments: postmenapausal MAMMOGRAM, SCREENING, BOTH BREAST On: 17-Jan-2015 Intent ([id number])By: Edita Cabral MD Radiology - Shoulder - [...] with back pain- stat call results Spirometry ([id number])By: Thee COLEMAN, On: 30-Apr-2014 Intent Erna Schaefer Comments: good effort and curve normal ELECTROCARDIOGRAM, COMPLETE (ECG) On: 30-Apr-2014 Intent ([id number])By: Erna Kingston DO Eprescribed prescriptions ([id number])By: On: 12-Feb-2014 Intent Edita Cabral MD SPECIMEN HANDLING/TRANSPORT On: 15-Jan-2014 Intent ([id number])By: Eli Bowman CNP, CNP, Mary E Eprescribed prescriptions ([id number])By: On: 11-Oct-2013 Intent Nunu Stephens LPN ADMINISTRATION OF INFLUENZA VIRUS On: 24-Jul-2013 Intent VACCINE ([id number])By: Edita Cabral MD FLU VAC, SPLIT, >3 YEARS, INTRAMUSC On: 24-Jul-2013 Intent ([id number])By: Edita Cabral MD Echo CompleteBy: Edita Cabral MD On: 27-Jun-2013 Intent Carotid DopplerBy: Edita Cabral MD On: 27-Jun-2013 Intent M Eprescribed prescriptions ([id number])By: On: 27-Jun-2013 Intent Teressa Molina LPN MRI - BrainBy: Eli Bowman CNP On: 16-Jun-2013 Intent Eli Bowman CNP SPECIMEN HANDLING/TRANSPORT On: 16-May-2013 Intent ([id number])By: Sue Ewing LPN Holter Monitor 24 hrsBy: Colby WATTERS, On: 28-Apr-2013 Intent Eli Bowman CNP Elif ELECTROCARDIOGRAM, COMPLETE (ECG) On: 28-Apr-2013 Intent ([id number])By: Eli Bowman CNP Comments: sinus bradycardia JANENE Elif Bio Z ([id number])By: Eli Bowman CNP On: 28-Apr-2013 Intent Colby WATTERS Elif EKG (69201)By: Edita Cabral MD On: 28-Mar-2013 Intent Comments: see scanned document of test done to see results reviewed today with patient Eprescribed prescriptions ([id number])By: On: 28-Mar-2013 Intent Teressa Molina LPN L Eprescribed prescriptions ([id number])By: On: 08-Dec-2012 Intent Nunu Stephens LPN Spirometry (32182)By: Shilpi COLEMAN, On: 25-Nov-2012 Intent Mayda Comments: Computer not running so not able to perform test Aerosol Treatment (06407)By: Shilpi On: 25-Nov-2012 Intent Madya COLEMAN Spirometry (64744)By: Thee COLEMAN, On: 21-Nov-2012 Intent Erna Schaefer Comments: good effort and curve normal Radiology - Chest- PA and LatBy: On: 21-Nov-2012 Intent Erna Kingston DO Eprescribed prescriptions ([id number])By: On: 21-Nov-2012 Intent Makayla Dillard LPN ADMINISTRATION OF PNEUMOCOCCAL On: 31-Oct-2012 Intent VACCINE (G0009)By: Edita Cabral MD Comments: Lot #[id number]/19/14Site-right deltoidDose0.5mlgiven by: [facility] per fax. M PNEUM VAC ADLT/IMUMNOSPR, SBC/INTRM On: 31-Oct-2012 Intent ([id number])By: Jodi Carvalho LPN Eprescribed prescriptions ([id number])By: On: 18-Oct-2012 Intent Teressa Molina LPN FLU VAC, SPLIT, >3 YEARS, INTRAMUSC On: 01-Jul-2012 Intent (60167)By: Eli Bowman CNP Comments: Lot:[id number]:6.13Amt:prefilled syringeSite: L Dltd, IMGiven by: MARISA Torres CNP, Mary E ADMINISTRATION OF INFLUENZA VIRUS On: 01-Jul-2012 Intent VACCINE (G0008)By: Eli Bowman CNP, CNP, Mary E SPECIMEN HANDLING/TRANSPORT On: 01-Jul-2012 Intent (31578)By: uSe Ewing LPN Solu -Medrol Injection, 125 mg On: 23-Nov-2011 Intent (J2930)By: Edita Cabral MD Comments: Lot [id number]-R hip, IMDose 125mggiven by:Teressa Radiology - ChestBy: Misha PROCTOR, On: 23-Nov-2011 Intent Edita Clinton Comments: wet read Pulse Oximetry (31538)By: Benoit On: 23-Nov-2011 Intent AKBAR Aerosol Treatment (60329)By: Colby On: 16-Nov-2011 Intent Eli WATTERS CNP, Mary E Pulse Oximetry (06640)By: Vin On: 16-Nov-2011 Intent Lynn Comments: 93 FLU VAC, SPLIT, >3 YEARS, INTRAMUSC On: 16-Nov-2011 Intent ([id number])By: Lynn Banuelos Comments: received at work SPECIMEN HANDLING/TRANSPORT On: 14-Sep-2011 Intent (48549)By: Edita Cabral MD SPECIMEN HANDLING/TRANSPORT On: 26-Aug-2011 Intent (37534)By: Sue Ewing LPN Ultrasound - LiverBy: Msiha PROCTOR, On: 11-Jun-2011 Intent Edita Clinton EKG (03173)By: Edita Cabral MD On: 16-Feb-2011 Intent MAMMOGRAM, SCREENING, BOTH BREASTS On: 13-Mar-2010 Intent (51291)By: Edita Cabral MD MAMMOGRAM, SCREENING, BOTH BREASTS On: 06-Mar-2010 Intent ([id number])By: Edita Cabral MD MAMMOGRAM, SCREENING, BOTH BREASTS On: 13-Feb-2010 Intent ([id number])By: Edita Cabral MD Spirometry (03044)By: Misha PROCTOR, On: 01-Oct-2009 Intent Edita Clinton ELECTROCARDIOGRAM, COMPLETE (ECG) On: 01-Oct-2009 Intent ([id number])By: Edita Cabral MD Pulse Oximetry (20184)By: Benoit On: 01-Oct-2009 Intent AKBAR Spirometry (80211)By: Thee COLEMAN, On: 30-Jul-2009 Intent Erna Schaefer Comments: good effort and curve normal Radiology - Chest- PA and LatBy: On: 30-Jul-2009 Intent Erna Kingston DO Pulse Oximetry (95805)By: Vin, On: 30-Jul-2009 Intent Lynn Comments: 94%repeat 97-98 EKG (26321)By: Erna Kingston DO On: 14-Jul-2009 Intent Comments: ekg showed normal sinus rhythym, normal axis, no acute st/t wave changes old t wave inversion noted on previous ekg Pulse Oximetry (08965)By: Vin, On: 11-Jul-2009 Intent Lynn Comments: 97% Solu -Medrol Injection, 125 mg On: 09-Jul-2009 Intent ([id number])By: Erna Kingston DO Comments: Lot #:[id number] date:mount given:125mgRoute:IM Site given:left buttockGiven by: MARIA DOLORES Cordon Aerosol Treatment (63342)By: Thee On: 09-Jul-2009 Intent Erna COLEMAN Pulse Oximetry (03437)By: Thee COLEMAN, On: 09-Jul-2009 Intent Erna A Comments: repeat after treatment was 96 Pulse Oximetry (40573)By: Vin, On: 09-Jul-2009 Intent Lynn Comments: 93% Spirometry (74186)By: Gildardo SOUSA, On: 25-Jan-2009 Intent Sue MAMMOGRAM, SCREENING, BOTH BREASTS On: 29-May-2008 Intent (17325)By: Edita Cabral MD EKG (37814)By: Edita Cabral MD On: 29-May-2008 Intent Spirometry (38200)By: Misha PROCTOR, On: 27-Dec-2007 Intent Edita Clinton Ultrasound - ThyroidBy: Misha PROCTOR, On: 22-Mar-2007 Intent Edita Clinton MAMMOGRAM, SCREENING, BOTH BREASTS On: 22-Mar-2007 Intent ([id number])By: Edita Cabral MD MAMMOGRAM, SCREENING, BOTH BREASTS On: 22-Mar-2007 Intent (67873)By: Edita Cabral MD ELECTROCARDIOGRAM, COMPLETE (ECG) On: 22-Mar-2007 Intent (01081)By: Edita Cabral MD Planned Medications INJECTION, KETOROLAC [...] Non-smoker Non-smoker : Patient Instructions Indication: Non-smoker Non-smoker : How to access [...] disease, bilateral : DISCONTINUED - POTASSIUM SERUM (83523) Indication: Active Meniere's disease, bilateral Elevated LFTs : DISCONTINUED - HEPATIC FUNCTION PANEL (95254) Indication: Elevated LFTs Diabetes mellitus type II, controlled : Patient Instructions Indication: Diabetes mellitus type II, controlled Cough : Patient Instructions Indication: Cough Pharyngitis, acute : Patient Instructions Indication: Pharyngitis, acute Asthma in adult : Patient Instructions Indication: Asthma in adult Active Meniere's disease, bilateral : Patient Instructions Indication: Active Meniere's disease, bilateral Encounters Annotation/Addendum On: 28-Sep-2018 15:43 Encounter Diagnosis: Unspecified Diagnosis End: 28-Sep-2018 15:49 [facility] Annotation/Addendum On: 16-Sep-2018 13:31 Encounter Diagnosis: Unspecified Diagnosis End: 16-Sep-2018 13:45 [facility] Office Visit On: 12-Sep-2018 9:13 Encounter Reason: Knee Pain - This condition occurred without any known injury. The injury involved the left knee and right knee. This occurred 1 month(s) ago. Symptoms include knee pain. Symptoms are located in the left End: 12-Sep-2018 10:01 knee and right knee. The symptoms occur constantly.Encounter Diagnosis: BMI 35.0- 35.9,adult, Non-smoker, Pain in both knees, unspecified chronicity, Osteoarthritis, Neuropathic pain [facility] Office Visit On: 23-Aug-2018 14:24 Encounter Reason: [...] printed for pt to take to [facility] , [ADDITIONAL REASON] Weight Gain [...] 2 week(s) ago.Encounter Diagnosis: BMI 34.0-34.9,adult, End: 16-Oct-2017 17:28 Current nonsmoker (Renamed from Current non-smoker), [...] in ER on 12-29 after eating at [employer] and choking on a piece of potatoe had th End: 04-Jan-2017 11:17 amee hilario then went to urgent care, told to go to ER at [facility] diagnosed with Esophagitis was given pepcid and [...] occurred following a specific injury (lifting at [employer] for years but no fall). The injury [...] in bathroom. The patient has completed the [facility] ([facility]) express preventative measures: PAP smear (needs updated ), mammography (needs updated ) and colonoscopy (needs updated however patient refuse to have done bc she was hospitalized with the last one with infection for 5 days ). The patient does have durable power of environmental attorney and living will. The patient has [...] for Tdap vaccination (Renamed from Need for srcziibwkc-emaatgl-umiufqnxo (Tdap) vaccine, adult/adolescent), Goiter (Renamed from Big [...] Woman Exam (V72.31) (Pap,Mammo,Routine Female) (Renamed from [employer] Woman V72.31 (p,m)), Fatigue, Goiter (Renamed from [...] Woman Exam (V72.31) (Pap,Mammo,Routine Female) (Renamed from [employer] Woman V72.31 (p,m)), Hypothyroidism(244.9), Carotid Stenosis (433.10), [...] (240.9), Hypothyroidism(244.9) [facility] Payers [employer] Lilly Toro; a guarantor
--- OUTSIDE RECORDS SUMMARY | 2018-11-25 15:00 | XMS RPT_ITS | Continuity of Care Document ---
:1950 Author Organization [facility] Address [address] [place] [address] Phone Care Team Providers Name Role Phone Colby JANENEEli E Unavailable Mina Baer MD Unavailable Nhung Duval Unavailable [facility], [facility] Unavailable Kasi Scott Unavailable Mariia [...] [phone] Comments: needs repeat sleep study at [facility] per [facility] to get back on cpap Status: [...] to Yobani uterine bleeding X2 months, Dr Brush doing [...] Quantity: 1 {box} Refills: 3 Ordered:29-Jul-2018 Eli oBwman CNP, CNP, Mary E Start : 29-Jul-2018 [...] Caitlin Delaney Start : 29-Jul-2018 Active Ergocalciferol 41898 UNIT Oral Capsule 1 Capsule twice weekly for 0 days Quantity: 24 {Capsule} Refills: 0 Ordered:23-Jun-2018 Ciesa JANENE, Eli Mejiasilvano WATTERS, Eli Lubin Start : 23-Jun-2018 Active Gabapentin [...] tablet daily (15 MG) Active Comments:Catrachito Pen [place] /16 31G X 5 MM Miscellaneous 1 (one) Misc Misc qd with Victoza for 0 days Quantity: 1 {Box} Refills: 3 Ordered:03-Feb-2018 Edita Cabral MD Start : 19-Jan-2018 Active ProAir HFA 108 (90 Base) MCG/ACT Inhalation Aerosol Solution 1-2 puffs Aerosol Soln every four hours, as needed for 30 days Quantity: 1 {Box} Refills: 3 Ordered:29-Jul-2018 Lisamitchsilvano WATTERS, Eli Mejiasilvano WATTERS, Eli Lubin Start : 29-Jul-2018 Active Comments:Medication taken as needed. PROzac 40 MG Oral Capsule 2 (two) Capsule qd for 90 days Quantity: 180 {Capsule} Refills: 3 Ordered:18-Apr-2018 Cimitchsilvano WATTERS, Eli Mejiasilvano WATTERS, Eli Lubin Start : 18-Apr-2018 Active Symbicort [...] Quantity: 45 {Tablet} Refills: 1 Ordered:12-Oct-2017 Mo SOUSANaomi Start : 13-Oct-2016 End : 12-Oct-2017 Inactive AUGMENTIN, 875-125MG (Oral Tablet) 1 (one) Tablet bid for 14 days Quantity: 28 {Tablet} Refills: 0 Ordered:06-Jan-2016 José Miguel SALESPERSON PARTS, Eli [facility], Eli Lubin Start : 06-Jan-2016 End : 20-Jan-2016 Inactive AZITHROMYCIN, 250MG (Oral Tablet) 2 (two) Tablet today then 1 qd for 4 days for 0 days Quantity: 6 {Tablet} Refills: 0 Ordered:08-Dec-2012 Nunu Stephens LPN Start : 21-Nov-2012 End : 08-Dec-2012 Inactive BACTRIM DS, 800-160MG (Oral Tablet) 1 Tablet bid for 7 days Quantity: 14 {Tablet} Refills: 0 Ordered:16-May-2013 José Miguel SALESPERSON PARTS, Eli [facility], Elif Start : 16-May-2013 End : 23-May-2013 Inactive Cheratussin AC 100-10 MG/5ML Oral Syrup 1 Teaspoon(s) qhs prn cough for 0 days Quantity: 8 {Fluid_Ounce} Refills: 0 Ordered:16-Jun-2016 Priya Gillette Start : 12-Mar-2016 End : 16-Jun-2016 Inactive Comments:eight CIPRO, 500MG (Oral Tablet) 1 Tablet bid for 7 days Quantity: 14 {Tablet} Refills: 0 Ordered:15-Jan-[address] [facility], Eli [facility], Elif Start : 15-Jan-2014 End : [...] : 07-Nov-2012 End : 12-Feb-2014 Inactive Drisdol 23841 UNIT Oral Capsule 1 (one) Capsule once [...] {Capsule} Refills: 0 Ordered:26-Aug-2011 Colby WATTERS, Eli Yanez CNP, Elif Start : 26-Aug-2011 End : 05-Sep-2011 Inactive Maxzide 75-50 MG Oral Tablet 1 (one) Tablet qd for 90 days Quantity: 90 {Tablet} Refills: 0 Ordered:23-Apr-2017 Ciesa SALESPERSON PARTS, Eli ECjeannea JANENE, Elif Start : 23-Apr-2017 End : 22-Jul-2017 [...] : 29-Jul-2010 End : 30-Sep-2010 Inactive Nystatin 392684 UNIT/ML Mouth/Throat Suspension 4-6 Milliliter swish and [...] : 12-Dec-2015 End : 16-Jun-2016 Inactive Comments:[facility] Topamax 100 MG Oral Tablet [...] 03-Jan-2018 Inactive Comments:1 rambo as directed ZOSTAVAX, 46992KAK/0.65ML (Subcutaneous Solution Reconstituted) 1 For Solution once [...] Refills: 0 Ordered:04-Jan-2017 Eli Bowman CNP, CNP, Elif Start : 04-Jan-2017 End : 04-Jan-2017 Discontinued Comments:[facility] er FLEXERIL, 10MG (Oral Tablet) 1 [...] : 13-Nov-2013 End : 13-Nov-2013 Discontinued Comments:ID [id number] Medrol 4 MG Oral Tablet Therapy Pack [...] days Quantity: 90 {Tablet} Refills: 1 Ordered:04-Jan-2017 lEi Bowman CNP, CNP, Mary E Start : 04-Jan-2017 End : 04-Jan-[address] 500 MG Oral Tablet Delayed Release 1 (one) tablet daily prn for 30 days Quantity: 30 {Tablet} Refills: 3 Ordered:18-Jan-2018 Phlylis Saez Start : 23-Dec-2017 End : 18-Jan-2018 [...] days Quantity: 30 {Tablet} Refills: 0 Ordered:27-Jul-2017 Julitarb Faraz SOUSAa Start : 18-Jan-2017 End : 27-Jul-2017 Discontinued Vitamin D3 25779 UNIT Oral Tablet 1 (one) Tablet Tablet once a week for 60 days Quantity: 8 {Tablet} Refills: 0 Ordered:04-Jan-2017 Slarb ANGLE BENDER, Naomi Start : 24-Nov-2016 End : 04-Jan-2017 [...] for Tdap vaccination (Renamed from Need for bfkubfndyg-iodrcqm-nwilnhvyt (Tdap) vaccine, adult/adolescent) (Z23, V06.1) Status: Inactive [...] of wound infection, PE.Not malnourishedLabs:CBCCMPPT/INRtype and screen gel(77303)EK06/10/16: no acute changesHas good social support and [...] under good control Patient to use Mucinex adnn-kut-jktiqxf which helped her. Status: Inactive as of [...] Comments: 2000 Tubal ligation 1963 Completed [facility] Left endolymphatic sac Completed decompression with shunt and middle ear infusion with decadron 03/05 Date Value Details 01-Aug-2018 CTA Chest W/WO Contrast Result: Comments: See Note; NOTES: [facility] Imaging Services [address] [place] [address] CTA Chest W/WO Contrast MR#: [id number] Acct: [id number] Name: ELIZABETH TORO Rep #: [id number] : 1950 F 67 From: Hardeep Calix MD PCP: Eli Bowman NP Status: REG CLI Study: CTA Chest W/WO Contrast Date of Exam: 08/01/18 Exam# [id number] Ordering Dr: Eli Bowman STUDY: CTA CHEST/T [...] Service support , CC: Eli Bowman NP Fuel Assembler: Signed 29-Jul-2018 Chest PA and Lateral Result: Comments: See Note; NOTES: [facility] Imaging Services [address] [place] [address] Chest PA and Lateral MR#: [id number] Acct: [id number] Name: ELIZABETH TORO Rep #: [id number] : 1950 F 67 From: Cami Klein MD PCP: Eli Bowman NP Status: REG CLI Study: Chest PA and Lateral Date of Exam: 07/29/18 Exam# [id number] Ordering Dr: Eli Bowman STUDY: X-RAY CHEST [...] Service support , CC: Eli Bowman NP Fuel Assembler: Signed 21-Apr-2018 Downtime Report Result: Comments: See Note; NOTES: [facility] Medical Records Department [address] [place] [address] Downtime Report MR#: [id number] Acct: [id number] Name: ELIZABETH TORO Rep #: : 1950 67 From: Alon Klein PCP: Eli Bowman NP Status: REG RCR This patient was seen during an EMR downtime April 04, 2018 - April 11, 2018. This patient may have a combination of p aper and electronic documentation or all paper documentation. All documentation is viewable within the e-chart portion of [facility] [employer] for each patient visit. 12-Apr-2018 NCS and/or EMG Patient Result: Comments: See Note; NOTES: [facility] Pulmonary Services/Neurology [address] [place] [address] MR#: [id number] Acct: [id number] Name: ELIZABETH TORO Rep #: [id number] : 1950 67 From: Kal Hernandez MD Referring Dr: Eli Bowman NP Status: REG CLI Ordering Dr: Date: Location[facility] Sex: F C NCS and/or EMG [...] ____ Kal Hernandez MD CC: Eli Bowman COMMERCIAL LINES UNDERWRITER; Kal Hernandez MD Date Dictated: 04/12/18949 Date Transcribed: 04/12/18949 Fuel Assembler: NF Signed 01-Feb-2018 PT D/C Summary (1) Result: Comments: See Note; NOTES: [facility] [address] [place] [address]. [address] [place] [address] Fax REHABILITATION SERVICES DISCHAR SUMMARY MR#: [id number] Acct: [id number] Name: ELIZABETH TORO Rep #: [id number] : 1950 67 From: Cristopher Francis PT, ATC Referring DrJose: Mayda Dobbins DO Status: REG RCR Insurance: [facility] PART A B PHYSICIAN MUT[employer] INS CO [...] please feel free to call me at [phone]. Thank you for the referral of this patient. Sincerely, Cristopher Francis, PT, <Electronically signed by Andrea Francis PT, ATC> 02/01/18 0823 CC: Eli Bowman COMMERCIAL LINES UNDERWRITER; Mayda Dobbins DO [facility] Signed 30-Dec-2017 Inital Evaluation (1) - PT Result: Comments: See Note; NOTES: [facility] [address] [place] [address]. [address] [place] [address] Fax REHABILITATION SERVICES INITIAL EVALUATION MR#: [id number] Acct: [id number] Name: ELIZABETH TORO Rep #: [id number] : 1950 67 From: Cristopher Francis PT, ATC Referring DrJose: Mayda Dobbins DO Status: REG RCR Insurance: MED ICARE PART A B PHYSICIAN MUTUAL INS CO [...] to be FAXED BACK to us at [phone] for Medicare purposes. Please let me know if there are questions or concerns regarding this plan of care. Physician Signature: Date: <Electronically signed by Cristopher Francis PT, ATC> 12/30/17 1056 CC: Eli Bowman NP; Mayda Dobbins DO DT: 0 12/30/17 [facility] Signed For Medicare only, by signing this I certify the plan of care. Physicians Signature Date 08-Oct-2017 Operative Report Result: Comments: See Note; NOTES: [facility] Medical Records Department [address] [place] [address] Operative Report 10/08/172017 MR#: [id number] Acct: [id number] Name: XAVIER TORO LEILANI Schaefer Rep #: [id number] : 1950 67 From: Oscar Winston MD PCP: Eli Bowman NP Status: REG [facility] Y Location: [place] [address] Problem List (1) Intrinsic (urethral) sphincter deficiency [...] normal she did have a mild cystoc sacrlet. I then first use the needle with [...] Discharge Instruction Result: Comments: See Note; NOTES: [facility] Medical Records Department [address] [place] [address] Instructions for Home/Discharge Instructions 10/08/171950 MR#: [id number] Acct: [id number] Name: ELIZABETH TORO Rep #: [id number] : 1950 67 From: Oscar Winston MD PCP: Eli Bowman NP Status: REG MEC Discharge Diet: Light diet - advance as [...] and Lateral Result: Comments: See Note; NOTES: [facility] Imaging Services [address] [place] [address] Chest PA and Lateral MR#: [id number] Acct: [id number] Name: ELIZABETH TORO Rep #: [id number] : 1950 F 67 From: Yury Arthur MD PCP: Eli Bowman Status: REG CLI Study: Chest PA and Lateral Date of Exam: 08/30/17 Exam# [id number] Ordering Dr: Mayda Dobbins DO STUDY: X-RAY CHES T REASON FOR EXAM: Female, 67 years old. Difficulty breathing TECHNIQUE: PA and lateral views of the chest. COMPARISON: Chest x-rays from December 08, 2015. FINDIN GS: The lungs are clear and expanded. There is no demonstrated pleural abnormality. Normal size heart. Normal mediastinum and tbaby. Normal visualized pulmonary arteries. Normal visualized aortic [...] , CC: Eli Bowman; Mayda Dobbins DO Fuel Assembler: Signed 20-Jul-2017 L/S Spine Min 4 Views Result: Comments: See Note; NOTES: [facility] Imaging Services [address] [place] [address] L/S Spine Min 4 Views MR#: [id number] Acct: [id number] Name: ELIZABETH TORO Rep #: [id number] : 1950 F 66 From: Dionte Lujan DO PCP: Eli Bowman Status: REG CLI Study: L/S Spine Min 4 Views Date of Exam: 07/20/17 Exam# [id number] Ordering Dr: Edita Cabral MD STUDY: X-RAY [...] Fax CC: Eli Bowman; Edita Cabral MD Fuel Assembler: Signed 20-Jul-2017 Shoulder min 2 Views Result: Comments: See Note; NOTES: [facility] Imaging Services [address] [place] [address] Shoulder min 2 Views MR#: [id number] Acct: [id number] Name: ELIZABETH TORO Rep #: [id number] : 1950 F 66 From: Dionte Lujan DO PCP: Eli Bowman Status: REG CLI Study: Shoulder min 2 Views Date of Exam: 07/20/17 Exam# [id number] Ordering Dr: Edita Cabral MD STUDY: [facility] REASON FOR EXAM: Female, 66 years [...] , CC: Eli Bowman; Edita Cabral MD Fuel Assembler: Signed 11-May-2017 PT D/C Summary (1) Result: Comments: See Note; NOTES: [facility] [address] [place] [address] Fax REHABILITATION SERVICES DISCHAR GE SUMMARY MR#: [id number] Acct: [id number] Name: ELIZABETH TORO Rep #: [id number] : 1950 66 From: Naomi Osorio MPT [...] please feel free to call me at [phone]. Thank you for the referral of this patient. Sincerely, Naomi Osorio <Electronically signed by Naomi Osorio MPT> 09/17 0919 CC: Nunu Root; Eli Bowman Signed 14-Apr-2017 Inital Evaluation (1) - PT Result: Comments: See Note; NOTES: [facility] [address] [place], [place] [address] Fax REHABILITATION SERVICES INITIAL EVALUATION MR#: [id number] Acct: [id number] Name: ELIZABETH TORO Rep #: [id number] : 1950 66 From: Naomi COMER Referring [...] to be FAXED BACK to us at [phone] for Medicare purposes. Please let me know if there are questions or concerns regarding this plan of care. Physician Signature: Date: <Electronically signed by Naomi Osorio MPT> 04/14/17 1906 CC: Nunu Root; Eli Bowman Signed For Medicare only, by sign ing this I certify the plan of care. Physicians Signature Date 08-Apr-2017 Knee 4 or More Views Result: Comments: See Note; NOTES: [facility] Imaging Services [address] [place] [address] Shaddadamian 4d Knee 4 or More Views MR#: [id number] Acct: [id number] Name: ELIZABETH TORO p #: [id number] : 1950 F 66 From: Chalino Mancia MD PCP: Eli Bowman Status: REG CLI Study: Knee 4 or More Views Date of Exam: 04/08/17 Exam# [id number] Ordering Dr: Mayda Dobbins DO STUDY: X-RAY [...] , CC: Eli Bowman; Mayda Dobbins DO Fuel Assembler: Signed 08-Apr-2017 Knee 4 or More Views Result: Comments: See Note; NOTES: [facility] Imaging Services [address] [place] [address] Verdana 4d Knee 4 or More Views MR#: [id number] Acct: [id number] Name: ELIZABETH TORO p #: [id number] : 1950 F 66 From: Chalino Mancia MD PCP: Eli Bowman Status: REG CLI Study: Knee 4 or More Views Date of Exam: 04/08/17 Exam# [id number] Ordering Dr: Mayda Dobbins DO STUDY: X-RAY [...] , CC: Eli Bowman; Mayda Dobbins DO Fuel Assembler: Signed 15-Mar-2017 Sleep Study Report Result: Comments: See Note; NOTES: [facility] [address] [place] [address] Polysomnography with NCPAP MR#: [id number] Acct: [id number] Name: ELIZABETH TORO Viridiana p #: [id number] : 1950 66 From: Kal Hernandez MD PCP: Eli Bowman Status: REG CLI Ordering Dr.: Eli Bowamn Date: 03/01/17 Sex: F C DATE OF SERVICE: 03/01/2017 SCORING RULES: Respiratory otilia nts were acquired and scored in accordance with the Recommended Standards and Specifications as outlined in the AASM Manual for the Scoring of Sleep and Associated Events ( most recent version). Please note that a reference to [facility] AHI in this report is consistent with the current Hypopnea definition according to Medicare Criteria and an AAS AHI reference is consistent with the current Hypopnea defini tion according to the AASM criteria and is recognized by [facility] as the RDI. PROCEDURE: The study was attended continuously by a tractor technician. Monitored parameters included left and right [...] body mass index of 30.9 and an [place] Sleepiness Scale score of 6. There is [...] can be requested. Kal Hernandez MD T: [facility] JOB: [id number] CC: Kal Hernandez MD 1151 1151 03/15/17 1451 <Electronically signed by Kal Hernandez MD> Date aKl Hernandez MD Co-signature (if applicable) Date Signed 05-Jan-2017 Esophagus Only Result: Comments: See Note; NOTES: [facility] Imaging Services [address] [place] [address] Ale 4d Esophagus Only MR#: [id number] Acct: [id number] Name: ELIZABETH TORO Rep #: [id number] : 1950 F 66 From: Gabriela Ragland MD PCP: Eli Bowman Status: REG CLI Study: Esophagus Only Date of Exam: 01/05/17 Exam# [id number] Ordering Dr: Sofia Bragg MD STUDY: AIR-CONTRAST [...] at 8:43 EST Tel , Service support [phone], CC: Eli Bowman; Sofia Bragg MD Fuel Assembler: Signed 29-Dec-2016 Emergency Department Summary Result: Comments: See Note; NOTES: [facility] Medical Records Department [address] [place] [address] Emergency Department Summary MR#: [id number] Acct: [id number] Name: XAVIER TORO Rep #: [id number] : 1950 66 From: Sofia Bragg MD PCP: Eli Bowman Status: DEP ER DATE OF SERVICE: 12/29/2016 CHIEF COMPLAINT: Sore throat. HISTORY OF PRESENT ILLNESS: This is a 66-year- old woman that states she was at [employer], choked on a piece of potato 5 [...] the case with Dr. Pena who is marketing regional consultant for GI and he suggested ordering [...] C: Eli Pena MD T: NTS JOB: [id number] 12/29/16 <Electronically signed by Sofia Bragg MD> Date Sofia Bragg MD Cosigner Signature (If Indicated): Date CC: Eli Bowman; Junior Pena Date Dictated: 12/29/161828 Date Transcribed: 12/29/161828 Fuel Assembler: Signed 29-Dec-2016 Discharge Instruction Result: Comments: See Note; NOTES: [facility] Medical Records Department [address] [place] [address] Discharge Instruction 12/29/161829 MR#: [id number] Acct: [id number] Name: ELIZABETH TORO Rep #: [id number] : 1950 66 From: Sofia Bragg MD [...] problems, contact your Primary Care Provider. Call [facility] ([phone] ) or report to the closest Emergency Room. Call 911 if necessary. 12/29/161832 <Electronically signed by Sofia Bragg MD> Date Sofia Siddiqui Signature (If Indicated): Date CC: Eli Bowman 07-Aug-2016 Sleep Study Report Result: Comments: See Note; NOTES: [facility] [address] [place] [address] Split Night Sleep Study MR#: [id number] Acct: [id number] Name: ELIZABETH TORO Rep #: [id number] : 1950 65 From: Kal Hernandez MD [...] version). Please note that a reference to [facility] AHI in this report is consistent with the current Hypopnea definition according to Medicare Criteria and an AAS AHI reference is consistent with the current Hypopnea defin ition according to the AASM criteria and is recognized by [facility] as the RDI. PROCEDURE: The study was attended continuously by a tractor technician. Monitored parameters included left and right [...] a body mass index of 29.3 and [place] Sleepiness Scale score of 2. There is [...] humidity. Kal Hernandez MD T: NTS JOB: [id number] CC : Kal Hernandez MD 1144 1144 08/07/16 0959 <Electronically signed by Kal Hernandez MD> Date Kal Hernandez MD Co-signature (if applicable) Date Signed -Aug-2016 Kidney and Bladder Result: Comments: See Note; NOTES: [facility] Imaging Services [address] [place] [address] Verdana 4d Kidney and Bladder MR#: [id number] Acct: [id number] Name: JAYYELIZABETH A Rep #: [id number] : 1950 F 65 From: Anibal Lan MD PCP: Donnie Gonzales Status: [facility] CLI Study: Kidney and Bladder Date of Exam: 08/04/16 Exam# [id number] Ordering Dr: Beto Henry MD UDY: RENAL [...] Anibal Lan MD at 11:16 EDT Tel [phone], Service support [phone], CC: Soumya Henry M.D.; Donnie Gonzales Fuel Assembler: Signed 23-Jun-2016 Operative Report Result: Comments: See Note; NOTES: [facility] Medical Records Department [address] [place] [address] Operative Report MR#: [id number] Acct: [id number] Name: ELIZABETH TORO Rep #: [id number] : 1950 65 From: Gm Brush MD PCP: Donnie Gonzales Status: REG [facility] DATE OF SERVICE: 06/22/2016 DATE OF PROCEDURE: June 22, 2016 SURGEON: Gm Brush M.D. FRUIT RAISER: Lia jacinto. ANESTHESIA: Gem Shelby and Frank [...] ovaries. Gm Brush MD T: NTS JOB: [id number] 06/23/16 0725 <Electronically signed by Gm Brush MD> Date __ Gm rBush MD Cosigner Signature (If Indicated): Date CC: Gm Brush MD; Donnie Nolasco Dicta nahed: 06/22/161102 Date Transcribed: 06/22/161102 Fuel Assembler: Signed 22-Jun-2016 Discharge Instruction Result: Comments: See Note; NOTES: [facility] Medical Records Department [address] [place] [address] Instructions for Home/Discharge Instructions 06/22/16 0904 MR#: [id number] Acct: [id number] Name: ELIZABETH TORO Rep #: [id number] : 1950 65 From: Gm Brush MD PCP: Donnie Gonzales Status: REG [facility] Discharge Diet: No Restrictions Discharge Activity: Return [...] #20 tablet PRN Reason: Mod- Severe Pain () Docusate Sodium [Co lace] 100 mg PO BID PRN PRN #60 capsule PRN Reason: Constipation Please Follow Up With: Gm Brush When: 2-3 weeks 06/22/16 0904 <Electronically signed by Gm Brush MD> Date ____ Gm Brush MD CC: Donnie Gonzales 10-Jun-2016 ELECTROCARDIOGRAM, COMPLETE (ECG) (08863) Result: [MEASUREMENTS ANALYSIS] Date of Test: 06/10/2016 09:39:53; Heart Rate: 58; [place] Interval: 208; QRS: 86; QT Interval: 480; Corrected QT Interval (QTc): 477; P Wave [place]: 45; QRS Wave [place]: 11; T Wave [place]: 23; Blood Pressure: 112/70 [ECG DIAGNOSTIC STATEMENTS] Date of Test: 06/10/2016 09:39:53; Summary: Sinus Bradycardia - Negative T-waves -May be normal - possible Anteroseptal ischemia. BORDERLINE 13-Apr-2016 Operative Report Result: Comments: See Note; NOTES: [facility] Medical Records Department [address] [place] [address] Operative Report MR#: [id number] Acct: [id number] Name: XAVIER TORO Rep #: [id number] : 1950 65 From: Gm Brush MD [...] curettings. Gm Brush MD T: NTS JOB: [id number] 04/13/16 1838 <Electronically signed by Gm Brush MD> Date Gm Brush MD Cosigner Signature (If Indicated): Date CC: Edita Young; Gm Brush MD Date Dictated: 04/13/16 1031 Date Transcribed: 04/13/161030 Fuel Assembler: Signed 13-Apr-2016 Discharge Instruction Result: Comments: See Note; NOTES: [facility] Medical Records Department [address] [place] [address] Instructions for Home/Discharge Instructions 04/13/16 1003 MR#: [id number] Acct: [id number] Name: ELIZABETH TORO Rep #: [id number] : 1950 65 From: Gm Brush MD PCP: Edita Cabral MD Status: REG SDC Discharge Diet: No Restrictions Discharge Activity: R [...] mg PO DAILY 04/10/16 Hydrocodone Bitart/Apap 5-325 [[place] 5MG-325MG] 1 tablet PO Q4H PRN PRN #10 tablet 04/13/16 The followi ng prescriptions were given: Hydrocodone Bitart/Apap 5-325 [[place] 5MG-325MG] 1 tablet PO Q4H PRN PRN #10 tablet PRN Reason: Mod-Severe Pain () Please Follow Up With: Gm Brush When: 2-3 jason bowers 04/13/16 1004 <Electronically signed by Gm Brush MD> Date Gm Brush MD CC: Edita Cabral MD 22-Mar-2016 Emergency Department Summary Result: Comments: See Note; NOTES: [facility] Medical Records Department [address] [place] [address] Emergency Department Summary MR#: [id number] Acct: [id number] Name: ELIZABETH TORO Rep #: [id number] : 1950 65 From: Nando Fuller MD [...] C: Edita Brush MD T: NTS JOB: [id number] 03/22/16 0247 <Electronically signed by Nando Fuller MD&a mp;#62; Date Nando Fuller MD Cosigner Signature (If Indicated): Date CC: Edita Cabral MD; Otilia Brush MD Date Dictated: 03/21/1650 Date Transcribed: 03/21/1650 Fuel Assembler: Signed 21-Mar-2016 Discharge Instruction Result: Comments: See Note; NOTES: [facility] Medical Records Department [address] [place] [address] Discharge Instruction 03/21/168 MR#: [id number] Acct: [id number] Name: ELIZABETH TORO Rep #: [id number] : 1950 65 From: Nando Fuller MD [...] ems, contact your doctor. Call [facility] ([phone]) or report to the closest Emergency Room. Call 911 if necessary. 03/21/16 0049 <Electronically signed by Nando Fuller MD&#6 2; Date Nando Fuller MD Cosigner Signature (If Indicated): Date CC: Edita Cabral MD 20-Mar-2016 Transvaginal Non- Result: Comments: See Note; NOTES: [facility] Imaging Services [address] [place] [address] Verdana 4d Transvaginal Non- MR#: [id number] Acct: [id number] Name: ELIZABETH DIAZ Rep #: [id number] : 1950 F 65 From: Jose Fu PCP: Edita Cabral MD Status: [facility] ER Study: Transvaginal Non- Date of Exam: 03/20/16 Exam# [id number] Ordering Dr: Oz Fuller MD STUDY: ULTRASOUND [...] DO at 0:42 EDT , Service support [phone], Fax CC: Edita Cabral MD; Nando Fuller MD Fuel Assembler: Signed 25-Feb-2016 Esophagus Only Result: Comments: See Note; NOTES: [facility] Imaging Services [address] [place] [address] Verdana 4d Esophagus Only MR#: [id number] Acct: [id number] Name: XAVIER TORO Rep #: [id number] : 1950 F 65 From: Anibal Lan MD PCP: Edita Cabral MD Status: REG CLI Study: Esophagus Only Date of Exam: 02/25/16 Exam# [id number] Ordering Dr: Donnie Gonzales STUDY: X-RAY - [...] Anibal Lan MD at 10:35 EDT Tel [phone], Service support [phone], Fax RAD/Esophagus Only IMPRESSION: Normal plain film x-ray examination (barium swallow) of the esophagus. Electronically Signed: Anibal Lan MD at 10: 35 EDT Tel [phone], Service support [phone], CC: Edita Cabral MD; Donnie Gonzales Fuel Assembler: Signed 25-Feb-2016 Esophagus Only Result: Comments: See Note; NOTES: [facility] Imaging Services [address] [place] [address] Verdana 4d Esophagus Only MR#: [id number] Acct: [id number] Name: XAVIER TORO Rep #: [id number] : 1950 F 65 From: Anibal Lan MD PCP: Edita Cabral MD Status: REG CLI Study: Esophagus Only Date of Exam: 02/25/16 Exam# [id number] Ordering Dr: Donnie Gonzales ADDENDUM by Anibal Lan MD on 03/31/16 at 0747 ADDENDUM This is an addendum report for PQRS purposes. 19 images were obtained. Electronically Signed: Anibal Lan MD at 7:47 EDT Tel [phone], Service support [phone], 03/31/16 0747 Date cc: Edita Cabral MD; [...] Anibal Lan MD at 10:35 EDT Tel [phone], Service support [phone], RAD/Esophagus Only IMPRESSION: Normal plain film x-ray examination (barium swallow) of the esophagus. Electronically Signed: Anibal Lan MD at 10:35 EDT Tel [phone], Service support [phone], CC: Edita Cabral MD; Donnie Gonzales Fuel Assembler: Signed 10-Dec-2015 12 Lead Electrocardiogram Result: Comments: See Note; NOTES: [facility] Cardiovascular Services [address] [place] [address] 12 Lead EKG 12/08/15 1551 MR#: [id number] Acct: [id number] Name: ELIZABETH DASILVA Rep #: [id number] : 1950 65 From: Francisco Muller MD [...] Confirmed by FRANCISCO MULLER MD ([id number]), editor managing newspaper ZUNILDA KLEIN ([id number]) on 12/10/2015 9:33:10 AM Referred By: ROMEL Confirmed By:FRANCISCO MULLER MD 12/10/15 0933 Date ___ Francisco Muller MD CC: Edita Cabral MD Date Dictated: 12/08/15 155 Date Transcribed: 12/08/151550 Fuel Assembler: Signed 10-Dec-2015 Emergency Department Summary Result: Comments: See Note; NOTES: [facility] Medical Records Department [address] [place] [address] Emergency Department Summary MR#: [id number] Acct: [id number] Name: ELIZABETH TORO Rep #: [id number] : 1950 65 From: Sisi Severino MD [...] C: Edita Cabral MD T: NTS JOB: [id number] 12/10/15 0232 <Electronically deepti d by Sisi Severino MD> Date Sisi Severino MD Cosigner Signature (If Indicated): Date C C: Edita Cabral MD Date Dictated: 12/08/151705 Date Transcribed: 12/08/151705 Fuel Assembler: Signed 08-Dec-2015 Discharge Instruction Result: Comments: See Note; NOTES: [facility] Medical Records Department [address] [place] [address] Discharge Instruction 12/08/15 1659 MR#: [id number] Acct: [id number] Name: ELIZABETH TORO Rep #: [id number] : 1950 65 From: Sisi Severino MD [...] unexp ected problems, contact your doctor. Call [facility] ([phone]) or report to the closest Emergency Room. Call 911 if necessary. 12/08/15 1701 <Electronically signed by Sisi young MD> Date Sisi Severino MD Cosigner Signature (If Indicated): Date CC: Edita Cabral MD 08-Dec-2015 Chest PA and Lateral Result: Comments: See Note; NOTES: [facility] Imaging Services [address] [place] [address] Verdana 4d Chest PA and Lateral MR#: [id number] Acct: [id number] Name: ELIZABETH TORO Rep #: [id number] : 1950 F 65 From: Malaika Diana MD PCP: Edita Cabral MD Status: REG ER Study: Chest PA and Lateral Date of Exam: 12/08/15 Exam# [id number] Ordering Dr: Sisi Severino MD STUDY: X-RAY [...] MD at 16:41 EST , Service support [phone], RAD/Chest PA and Lateral IMPRESSION: No acute disease is demonstrated. Electronic ally Signed: Malaika Diana MD at 16:41 EST , Service support [phone], CC: Edita Cabral MD; Sisi Severino MD Fuel Assembler: Signed 16-Sep-2015 EKG (69804) Result: [MEASUREMENTS ANALYSIS] Date of Test: 09/16/2015 09:46:37; Heart Rate: 74; [place] Interval: 192; QRS: 88; QT Interval: 406; Corrected QT Interval (QTc): 430; P Wave [place]: 28; QRS Wave [place]: -3; T Wave [place]: -1; Blood Pressure: 104/60 [ECG DIAGNOSTIC STATEMENTS] Date of Test: 09/16/2015 09:46:37; Summary: Sinus Rhythm Low voltage in precordial leads. - Nonspecific T-abnormality. ABNORMAL 11-Feb-2015 Kidney and Bladder Result: Comments: See Note; NOTES: [facility] Imaging Services [address] [place] [address] Ultrasound Report MR#: [id number] Acct: [id number] Name: ELIZABETH TORO Rep #: [id number] : 1950 F 64 From: Mina Cade MD PCP: Edita Cabral MD Status: REG CLI Study: Kidney and Bladder Date of Exam: 02/11/15 Exam# [id number] Ordering Dr: Edita Cabral MD STUDY: RE [...] MD at 23:11 EDT , Service support [phone], CC: Edita Cabral MD Fuel Assembler: Signed 24-Jul-2014 PT Discharge Summary Result: Comments: See Note; NOTES: [facility] [address] [place] [address] [address] [place], [place] [address] Fax REHABILITATION SERVICES DISCHARGE SUMMARY MR#: [id number] Acct: [id number] Name: ELIZABETH TORO Rep #: [id number] : 1950 63 From: Naomi Osorio Referring [...] clinic. Naomi Osorio, PT T: NTS JOB: [id number] <Electronically signed by Faraz Osorio > 07/24/14 6820 CC: Signed 15-Jun-2014 PT Discharge Summary Result: Comments: See Note; NOTES: [facility] [address] [place] [address] [address] [place], [place] [address] Fax REHABILITATION SERVICES DISCHARGE SUMMARY MR#: [id number] Acct: [id number] Name: ELIZABETH TORO Rep #: [id number] : 1950 63 From: Naomi Osorio Referring [...] Sincerely, Naomi Osorio, PT T: NTS JOB: [id number] <Electronically signed by Naomi Osorio & amp;#62; 06/15/14 1410 CC: Signed 25-May-2014 Inital Evaluation - PT Result: Comments: See Note; NOTES: [facility] [address] [place] [address]. [address] [place], [place] [address] Fax REHABILITATION SERVICES INITIAL EVALUATION MR#: [id number] Acct: [id number] Name: ELIZABETH TORO Rep #: [id number] : 1950 63 From: Naomi Osorio Referring Dr.: Edita Cabral MD Status: REG RCR Insurance: [facility] Eval Date: PHYSICIAN [...] anterolateral shoulder. She is right-handed. 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 Naomi Osorio, PT T: NTS JOB: [id number] <Electronically signed by Naomi Osorio > 4 1241 CC: Signed For Medicare only, by signing this I certify the plan of care. Physicians Signature Date 23-May-2014 Nuclear Stress Test - Chemical Result: Comments: See Note; NOTES: [facility] Imaging Services [address] [place] [address] Nuclear Medicine Report MR#: [id number] Acct: [id number] Name: ELIZABETH TORO Rep #: [id number] : 1950 F 63 From: Tano Nielsen MD PCP: Edita Cabral MD Status: REG CLI Study: Nuclear Stress Test - Chemical Date of Exam: 05/23/14 Exam# [id number] Ordering Dr: Álvaro Cabral MD EXERCISE TOLERANCE [...] LVEF of 61%. CC: Edita Cabral MD Fuel Assembler: SHEKHAR Signed 14-May-2014 Shoulder min 2 Views Result: Comments: See Note; NOTES: [facility] Imaging Services [address] [place] [address] Radiology Report MR#: [id number] Acct: [id number] Name: ELIZABETH TORO Rep #: [id number] : 1950 F 63 From: Hardeep Dumont MD PCP: Erna Kingston DO Status: REG CLI Study: Shoulder min 2 Views Date of Exam: 05/14/14 Exam# [id number] Ordering Dr: Edita Cabral MD STUDY: X-RAY [...] Silvio Dumont MD at 12:18 EDT , Clickable[employer] ce support [phone], CC: Edita Cabral MD; Erna Kingston DO Fuel Assembler: Signed 30-Apr-2014 CTA Chest W/WO Contrast Result: Comments: See Note; NOTES: [facility] Imaging Services [address] [place] [address] CAT Scan Report MR#: [id number] Acct: [id number] Name: ELIZABETH TORO Rep #: [id number] : 1950 F 63 From: Hardeep Calix MD PCP: Erna Kingston DO Status: REG CLI Study: CTA Chest W/WO Contrast Date of Exam: 04/30/14 Exam# [id number] Ordering Dr: Erna Kingston DO STUDY: CTA [...] at 19 :01 EDT , Service support [phone], CC: Erna Kingston DO Fuel Assembler: Signed Family History Unknown Family Member Name [...] kg/m2 Body Surface Area Calculated 1.91 m2 08-Jzo-687495:07 Pulse 73 /min Comments: Pattern: Regular Respiration [...] kg/m2 Body Surface Area Calculated 1.96 m2 02-Rra-819415:01 Temperature 98.1 f Comments: Method: Oral Pulse [...] 0.00 cm Results Date Description Value Details 4-Irr-568758:57 CREATININE FINGERSTICK Comments: [facility] [address] [place] [address] EGFR WB 55.0000 mL/min (Abnormal) CREATININE WB 1.1 mg/dL (Abnormal) Range: 0.55-1.02 60-Cyp-127179:19 D-Dimer (84989) Comments: PATIENT NOT FASTINGPERFORMED BY: EMIL [employer] [facility] [id number] D-Dimer 0.57 {mg/L_FEU} (Abnormal) Range: 0.00-0.49 Comments: According to the assay desktop technician's published package insert, anormal (<0.50 mg/L FEU) D-dimer result in conjunction with a non-highclinical probability assessment, excludes deep vein thrombosis (D VT)and pulmonary embolism (PE) with high sensitivity. .D-dimer values increase with age and this can make VTE exclusion ofan older pop ulation difficult. To address this, the [employer] [employer], based on best available evidence [...] and an80 year old 0.80 mg/L FEU. 13-Ykf-666322:19 Troponin I (04787) Comments: PATIENT NOT FASTINGPERFORMED BY: [facility] [id number] Troponin I <0.01 ng/mL (Normal) Range: 0.00-0.04 27-Ees-607427:19 CPK MB FRACTION (02239) Comments: PATIENT NOT FASTINGPERFORMED BY: [facility] [id number] Creatine Kinase (CK), MB 2.5 ng/mL (Normal) Range: 0.0-5.3 47-Hvx-735929:19 CREATINE KINASE TOTAL (36083) Comments: PATIENT NOT FASTINGPERFORMED BY: [facility] [id number] Creatine Kinase,Total 103 U/L (Normal) Range: 24-173 :16 CBC-Complete Blood Cnt No Diff Comments: [facility] [address] [facility] [address] [place], [place], [address] MPV 10.5 fL (Normal) Range: 6.2-12.0 PLT [...] Range: 4.4-11.0 :16 Microalb:Creat Ratio,Random UR Comments: [facility] [address] [facility] [address] [place], [place], [address] MALB:CREAT Test not performed {mg/g_CRE} (Normal) MICROALBUMIN,UR < 5.0 mg/L (Normal) UR CREAT < 13.00 mg/dL (Normal) :16 PTHIN 51.5 pg/mL (Normal) Comments: [facility] [address] [place], [address] Range: 18.4-80.1 :16 Renal Profile Comments: [facility] [address] [place], [address] CO2 28.0 mmol/L (Normal) Range: 21.0-32.0 CL [...] Comments: Please note revised GLUCOSE reference range ehuwibpfq89/02/2018. 51-Rzt-55867:16 Vitamin D,25 Hydroxy Comments: [facility] [address] [place], [address] Vitamin D 25-OH 69.4 ng/mL (Normal) Range: 29.95-100.01 Comments: Vitamin D 25(OH) Status Range Deficiency <20 ng/mL (50nmol/L) Insuffciency 20 - 30 ng/mL (50 - 75 nmol/L) Sufficiency 30 - 100 ng/mL (75 - 250 nmol/L) Toxicity >100 ng/mL (>250 nmol/L) :04 HgA1C , Office (49465) HgA1C , Office 5.5 % (Normal) Range: 4.6 - 7.1 :23 CALCIFEDIOL (92196) Comments: PATIENT WAS FASTINGPERFORMED BY: [facility] [id number] Vitamin D, 25-Hydroxy 43.2 ng/mL (Normal) Range: 30.0-100.0 Comments: Vitamin D deficiency has been defined by the [place] of[place]icine and an Endocrine Society practice guideline as alevel of serum 25-OH vitamin D less than 20 ng/mL (1,2).The Endocrine Society went on to further define vitamin Dinsufficiency as a level between 21 and 29 ng/mL (2).1. IOM ([place] of Medicine). 2010. Dietary reference intakes for calcium and D. [place]: The National Academies Press.2. Azael MF, Leslee NC, Hillary PHILLIPS, et al. Evaluation, treatment, and prevention of vitamin D deficiency: an Endocrine Society clinical practice guideline. JCEM. 2010; 96(7):1911-30. :23 CBC, Platelets & Auto Diff Comments: PATIENT WAS FASTINGPERFORMED BY: [facility] CenterYsfxmo8193 [facility] [id number] (67867) Immature Grans (Abs) 0.0 {x10E3/uL} (Normal) Range: [...] 3.77-5.28 WBC 7.1 {x10E3/uL} (Normal) Range: 3.4-10.8 41-Jhk-14161:23 Metabolic Panel, Comprehensive Comments: PATIENT WAS FASTINGPERFORMED BY: [facility] CenterDakfqo7028 [facility] [id number] (06404) ALT (SGPT) 15 [iU]/L (Normal) Range: 0-32 [...] Glucose, Serum 82 mg/dL (Normal) Range: 65-99 89-Jto-49400:23 MICROALBUMIN: CREATININE RATIO Comments: PATIENT WAS FASTINGPERFORMED BY: [employer] [facility] TechnologiesAllegh[facility] [id number] (15579) AND (67695) Alb/Creat Ratio <5.6 {mg/g_creat} (Normal) Range: 0.0-30.0 Albumin, Urine <3.0 ug/mL (Normal) Creatinine, Urine 53.5 mg/dL (Normal) 61-Xqk-264058:31 Metabolic Panel, Basic Comments: PATIENT NOT FASTINGPERFORMED BY: [facility] [id number] (39971) Calcium, Serum 9.9 mg/dL (Normal) Range: 8.7-10.3 [...] (Normal) Range: 65-99 :55 HgA1C , Office (35326) Comments: 5.5 HgA1C , Office 5.5 % (Normal) Range: 4.6 - 7.1 6-Vzn-784314:22 VITAMIN B12 AND FOLATES Comments: today; PATIENT NOT FASTINGPERFORMED BY: [facility] MonkBlaze DFMAlleghany Health [id number] (98543) Folate (Folic Acid), Serum >20.0 ng/mL (Normal) Comments: A serum folate concentration of less than 3.1 ng/mL isconsidered to represent clinical deficiency. Vitamin B12 655 pg/mL (Normal) Range: 232-1245 Comments: Please note reference interval change :58 CALCIFEDIOL (45540) Comments: PATIENT NOT FASTINGPERFORMED BY: [employer] [address]qyow[address] [place] [id number] Vitamin D, 25-Hydroxy 25.2 ng/mL (Abnormal) Range: 30.0-100.0 Comments: Vitamin D deficiency has been defined by the [place] of[place]icine and an Endocrine Society practice guideline as alevel of serum 25-OH vitamin D less than 20 ng/mL (1,2).The Endocrine Society went on to further define vitamin Dinsufficiency as a level between 21 and 29 ng/mL (2).1. IOM ([place] of Medicine). 2010. Dietary reference intakes for calcium and D. [place]: The National Academies Press.2. Azael MF, Leslee NC, Hillary PHILLIPS, et al. Evaluation, treatment, and prevention of vitamin D deficiency: an Endocrine Society clinical practice guideline. JCEM. 2010; 96(7):1911-30. 16-Kcj-618008:58 TSH (THYROID STIMULATING Comments: PATIENT NOT FASTINGPERFORMED BY: [facility] Vxvauh7260 [address] [facility] HospitalDublin [place] [id number] HORMONE) (93187) TSH 2.410 {uIU/mL} (Normal) Range: 0.450-4.500 :58 CBC WITH MANUAL DIFF (52562) Comments: PATIENT NOT FASTINGPERFORMED BY: CB [facility] Kwrexn1015 Mon[address] [facility] HospitalDublin [place] [id number] Immature Grans (Abs) 0.0 {x10E3/uL} (Normal) Range: [...] 3.77-5.28 WBC 7.7 {x10E3/uL} (Normal) Range: 3.4-10.8 76-Fqc-493468:58 Metabolic Panel, Comprehensive Comments: PATIENT NOT FASTINGPERFORMED BY: [facility] CenterGvcwuc4727 [facility] [id number] (45051) ALT (SGPT) 13 [iU]/L (Normal) Range: 0-32 [...] Glucose, Serum 90 mg/dL (Normal) Range: 65-99 3-Qzr-359113:07 Bedside Glucose Comments: [facility] [address] [place] [address] BEDSIDE GLU 100 mg/dL (Normal) Range: 70-110 Comments: MANAGEMENT OF PATIENT CARE PER NURSING PROTOCOL 51-Azc-996312:14 D-Dimer Quantitative (DVT/PE) Comments: Order Date: 08/30/17Order Info: 70529-9 - [facility]WGe[facility] Ymjhpzynlf6707 [facility] [place], [place], [address] D-DIMER QUANT 0.35 {FEU/ug/m} (Normal) Range: 0.27-0.49 Comments: NORMAL D-Dimer level (<0.50) indicates no DVT or PE. 03-Qtq-096721:44 Blood Glucose , Office (90915) Blood Glucose , 129 (Normal) Office :2 Request Problem Final report Comments: PATIENT NOT FASTINGPERFORMED BY: [facility]Border[facility] Ljzcwr8776 [facility] [id number] Information: MOUTH SRC:MO 1 (Normal) Comments: Inappropriate source for anaerobic culture. A routine aerobic culturewas initiated. Contact the Microbiology Lab for further information. :2 Test Code Change SPRCS (Normal) Comments: PATIENT NOT FASTINGPERFORMED BY: [facility] InteKrin [facility] [id number] 1 Comments: Please note that the Microbiology test code was changed to reflectthe specimen source or transport received. :21 Upper Respiratory Culture Comments: PATIENT NOT FASTINGPERFORMED BY: [facility]6370 [facility] [id number] Result 1 RRF (Normal) Comments: Routine respiratory duyen Upper Respiratory Culture Final report (Normal) 93-Xbr-959154:59 Metabolic Panel, Comprehensive Comments: Jul 2017; PATIENT NOT FASTINGPERFORMED BY: [facility] [id number] (74722) ALT (SGPT) 16 [iU]/L (Normal) Range: 0-32 [...] Glucose, Serum 80 mg/dL (Normal) Range: 65-99 81-Woq-630165:59 MAGNESIUM (96893) Comments: today; PATIENT NOT FASTINGPERFORMED BY: [facility] Bwxcdq1189 [facility] [id number] Magnesium, Serum 2.2 mg/dL (Normal) Range: 1.6-2.3 :04 Blood Glucose , Office (92970) Blood Glucose , Office 111 (Normal) :04 HgA1C , Office (68666) HgA1C , Office 5.5 % (Normal) Range: 4.6 - 7.1 :03 CBC W/Diff, Automated Comments: [facility] [address]qj[address] [place], [place], [address] ; another doc Absolute Lymph 2.35 {X10_3/ul} [...] (Normal) Range: 4.4-11.0 :03 Protein+Creatinine Ratio,Urine Comments: [facility] [address]prmbbzqpo[address] [place], [address] PROT:CRE RATIO 403 {mg/g_CRE} (Abnormal) Range: 0-200 PROTEIN,UR.RAN. < 6.0 mg/dL (Normal) UR CREAT 13.90 mg/dL (Normal) :03 PTH,INTACT Comments: [facility] Ribvx[address]rl[address] [facility] [address] [place], [address] PTH,Intact 34 pg/mL (Normal) Range: 14-72 :03 Renal Profile Comments: [facility] [address]js[address] [place], [address] CO2 26.0 mmol/L (Normal) Range: 21.0-32.0 CL [...] report for address and phone number VITD 33041 48.5 pg/mL (Normal) Range: 19.9-79.3 Comments: Performed at: [address] [id number] Director: Navdeep Medley MD, Phone: [phone] 11-Yqn-751648:06 Metabolic Panel, Comprehensive Comments: PATIENT NOT FASTINGPERFORMED BY: [employer] Mtemfv5250 [facility] VisionAl[facility] [id number] (98095) ALT (SGPT) 11 [iU]/L (Normal) Range: 0-32 [...] Glucose, Serum 78 mg/dL (Normal) Range: 65-99 58-Xsq-141552:06 CBC, Platelets & Auto Diff Comments: PATIENT NOT FASTINGPERFORMED BY: [employer] Rszlcf6878 Monk [facility] [id number] (65076) Immature Grans (Abs) 0.0 {x10E3/uL} (Normal) Range: [...] 3.77-5.28 WBC 9.3 {x10E3/uL} (Normal) Range: 3.4-10.8 99-Yjy-930720:06 TSH (91759) Comments: PATIENT NOT FASTINGPERFORMED BY: [facility] Deqwyu1811 L[address] [facility] [id number] TSH 3.080 {uIU/mL} (Normal) Range: 0.450-4.500 16-Xkc-278580:56 HgA1C , Office (68017) HgA1C , Office 5.5 % (Normal) Range: 4.6 - 7.1 88-Trl-507761:56 Blood Glucose , Office (78013) Blood Glucose , Office 81 (Normal) 31-Dec-20168:09 LIPID PANEL (22002) Comments: PATIENT WAS FASTINGPERFORMED BY: [facility]6370 [facility] [id number] LDL/HDL Ratio 2.0 {ratio_units} (Normal) Range: 0.0-3.2 [...] PANEL, COMPREHENSIVE Comments: PATIENT WAS FASTINGPERFORMED BY: [facility]6370 [facility] [id number] (25310) ALT (SGPT) 15 [iU]/L (Normal) Range: 0-32 [...] Glucose, Serum 104 mg/dL (Abnormal) Range: 65-99 32-Zyw-08005:04 METABOLIC PANEL, COMPREHENSIVE Comments: fax to Dr Henry; PATIENT WAS FASTINGPERFORMED BY: [facility] Ddsypa1965 [facility] [id number] (59790) ALT (SGPT) 16 [iU]/L (Normal) Range: 0-32 [...] CREATININE RATIO Comments: PATIENT WAS FASTINGPERFORMED BY: [facility] [id number] (19590) AND (68069) Microalb/Creat Ratio <6.3 {mg/g_creat} (Normal) Range: 0.0-30.0 Microalbumin, Urine <3.0 ug/mL (Normal) Creatinine, Urine 48.0 mg/dL (Normal) :04 HGB A1C (58139) Comments: PATIENT WAS FASTINGPERFORMED BY: [employer]70 [facility] Vision[facility] [id number] Hemoglobin A1c 5.7 % (Abnormal) Range: 4.8-5.6 Comments: . Pre-diabetes: 5.7 - 6.4 Diabetes: >6.4 Glycemic control for adults with diabetes: <7.0 :04 CALCIFEDIOL (80217) Comments: PATIENT WAS FASTINGPERFORMED BY: [employer]70 [facility] [id number] Vitamin D, 25-Hydroxy 24.2 ng/mL (Abnormal) Range: 30.0-100.0 Comments: Vitamin D deficiency has been defined by the [place] ofMedicine and an Endocrine Society practice guideline as alevel of serum 25-OH vitamin D less than 20 ng/mL (1,2).The Endocrine Society went on to further define vitamin Dinsufficiency as a level between 21 and 29 ng/mL (2).1. IOM ([place] of Medicine). 2010. Dietary reference intakes for calcium and D. [place]: The National Academies Press.2. Azael MF, Leslee NC, Hillary PHILLIPS, et al. Evaluation, treatment, and prevention of vitamin D deficiency: an Endocrine Society clinical practice guideline. JCEM. 2010; 96(5):6601-30. :04 TSH (THYROID STIMULATING Comments: PATIENT WAS FASTINGPERFORMED BY: [employer] [facility] Quantum TechnologiesAllegh[facility] Health [id number] HORMONE) (49742) TSH 2.710 {uIU/mL} (Normal) Range: 0.450-4.500 :04 LIPID PANEL (04956) Comments: PATIENT WAS FASTINGPERFORMED BY: [employer] Inte[employer]rin Monk [facility] [id number] LDL/HDL Ratio 1.7 {ratio_units} (Normal) Range: 0.0-3.2 [...] AUT DIFF Comments: PATIENT WAS FASTINGPERFORMED BY: [employer] Fbapyy7419 [facility] [id number] (10159) Immature Grans (Abs) 0.0 {x10E3/uL} (Normal) Range: [...] only by EIA. Ref. AM J Clin Dutsze8892;111:507-513. CYTOPLASMIC Ab <1:20 {titer} (Normal) :28 Anti-dsDNA Ab Comments: [facility] (refer to report for specific site)refer to report for address and phone number dsDNA AB <1 {IU/mL} (Normal) Range: 0-9 Comments: Negative <5 Equivocal 5 - 9 Positive >9Performed at: [facility] [employer] [id number] D irector: Junior Valera PhD, Phone: [phone] :28 Complement C3 Comments: Is Patient Fasting? [facility] (refer to report for specific site)refer to report for address and phone number COMP C3 127 mg/dL (Normal) Range: 82-167 Comments: Performed at: [facility] [id number] Director: Junior Valera PhD, Phone: [phone] :28 Complement C4 Comments: Is Patient Fasting? [...] electrophoresis scan will follow via computer,mail, or hearing therapy director delivery. LEOPOLDO RESULT,S Comment: (Normal) Comments: Presence of monoclonal protein is unclear at this time. Suggest repeat in 3 to 6 months if clinically indicated. A/G RATIO 0.9 (Normal) Range: 0.7-1.7 GLOBULIN, TOTAL 3.8 g/dL (Normal) Range: 2.2-3.9 M-SPIKE (Normal) Comments: Not Observed GAMMA GLOBULIN 1.4 g/dL (Normal) Range: 0.4-1.8 BETA GLOBULIN 1.3 g/dL (Normal) Range: 0.7-1.3 PWEUR-5-FENS 0.9 g/dL (Normal) Range: 0.4-1.0 MYVDV-3-KBET 0.2 g/dL (Normal) Range: 0.0-0.4 ALBUMIN 3.4 g/dL (Normal) Range: 2.9-4.4 IMMUNOGL M 44 mg/dL (Normal) Range: 26-217 IMMUNO A 614 mg/dL (Abnormal) Range: 87-352 IMMUNO G 1353 mg/dL (Normal) Range: 700-1600 PROTEIN,TOTAL 7.2 g/dL (Normal) Range: 6.0-8.5 :28 Protein+Creatinine Ratio,Urine Comments: [facility] [address] [place], [address] PROT:CRE RATIO 128 {mg/g_CRE} (Normal) Range: 0-200 PROTEIN,UR.RAN. 6.5 mg/dL (Normal) UR CREAT 50.60 mg/dL (Normal) :46 RENAL FUNCTION PANEL (01895) Comments: PATIENT NOT FASTINGPERFORMED BY: MotorwayBuddy6370 [facility] [id number] Phosphorus, Serum 4.2 mg/dL (Normal) Range: 2.5-4.5 :46 PT (PROTHROMBIN TIME) (01569) Comments: PATIENT NOT FASTINGPERFORMED BY: Kymeta LabCobyUsShtxrn8196 [facility] [id number] Prothrombin Time 10.9 {sec} (Normal) Range: 9.1-12.0 INR 1.1 (Normal) Range: 0.8-1.2 Comments: Reference interval is for non-anticoagulated patients. . Suggested INR therapeutic range for Vitamin K anta gonist therapy: Standard Dose (moderate intensity therapeutic range): 2.0 - 3.0 Higher intensity therapeutic range 2.5 - 3.5 :46 METABOLIC PANEL, COMPREHENSIVE Comments: PATIENT NOT FASTINGPERFORMED BY: [employer] Ilfjez6966 [facility] [id number] (60871) ALT (SGPT) 24 [iU]/L (Normal) Range: 0-32 [...] Glucose, Serum 109 mg/dL (Abnormal) Range: 65-99 64-Ngf-115294:46 CBC, PLATELETS & AUT DIFF Comments: PATIENT NOT FASTINGPERFORMED BY: [facility] Psjhfn9433 [facility] [id number] Information: [id number] (61084) Immature Grans (Abs) 0.0 {x10E3/uL} (Normal) Range: [...] (Normal) Range: 3.4-10.8 :23 HgA1C , Office (63804) HgA1C , Office 5.4 % (Normal) Range: 4.6 - 7.1 :16 CBC-Complete Blood Cnt No Diff Comments: [facility] [address] [place], [address] MPV 8.8 fL (Normal) Range: [...] 4.4-11.0 :16 Serum Creatinine AND GFR Comments: [facility] Iv[address]qh[address] [facility] [address] [place], [place], [address] Estimated CRCL 27.75 ml/min (Normal) EST GFR - AA 37 mL/min (Abnormal) Comments: GFR Calc EST GFR 30 mL/min (Abnormal) Comments: Non- GFR Calc CREAT,SERUM 1.77 mg/dL (Abnormal) Range: 0.55-1.20 Comments: The validity of the calculated GFR AND GFRAA in patients over70 years has not been determined. Clinical correlation isessential. 64-Bni-385738:15 Bedside Glucose Comments: [facility] LaboratoryPoint of [address]lvk[address] [place], [place] [address] BEDSIDE GLU 128 mg/dL (Abnormal) Range: 70-110 Comments: Policy and Physicians Orders followedMANAGEMENT OF PATIENT CARE PER NURSING PROTOCOL HYSTERECTOMY SPECIMEN See Note (Normal) Comments: [facility] [address] [place], [place], [id number] :39 Comments: Patient: ELIZABETH TORO : 1950 (65/F) Acct Num: [id number] Phys: Gonsalo PROCTOR,Gm Unit Num: [id number] Loc: MS1 GG095-1 Specimen: [id number] Received: 06/22/161336 Spec Ty pe: HYSTERECT TISSUES TISSUES: COMMENT Please make reference to previous specimen ([id number]) endometrial biopsy with diagnosis of consistent with atrophic endometrium and ([id number]) e ndometrium andpolyp, excision with diagnosis of [...] measures 1.2 x 0.7 x 0.6 cm. Time Broker sections are submitted inten cassettes as follows: [...] tube and ovary. / Sridevi 06/22/16 TC:1 CPT:31081 HEADER OPERATION: Lap robotic hysterectomy, BSO PRE-OP [...] Signed Sivakumar Mallory 06/23/16 <signature on file> 98-Rfv-04736:31 Bedside Glucose Comments: [facility] LaboratoryPoint of [address]dw[address] [place] [address] BEDSIDE GLU 89 mg/dL (Normal) Range: 70-110 Comments: Physician Notified VBRBMANAGEMENT OF PATIENT CARE PER NURSING PROTOCOL 26-Zkb-252821:31 CBC-Complete Blood Cnt No Diff Comments: [facility] [address] [place], [address] MPV 10.1 fL (Normal) Range: [...] Range: 4.4-11.0 :31 Comprehensive Metabolic Profil Comments: [facility] [address]is[address] [place], [address] GAP 8 (Normal) Range: 5-15 [...] (Normal) Range: 70-110 :31 Hemoglobin A1c Comments: [facility] [address]rel[address] [place], [place], [address] HGB A1C 5.6 % (Normal) Range: 4.2-6.3 :31 Partial Thromboplast Time Comments: [facility] [address] [place], [place], [address] PTT 27.7 s (Normal) Range: 24.1-36.2 97-Fib-299381:31 Prothrombin Time w/INR Comments: [facility] [address] [place], [place], [address] INR 1.1 (Normal) PROTIME 13.4 s (Normal) Range: 11.7-14.9 50-Bko-827196:31 Thyroid Stim Hormone (TSH) Comments: [facility] [address] [place], [place], [address] TSH 2.46 {uIU/mL} (Normal) Range: 0.358-3.74 :31 Type AND Screen Comments: Surgery Date: 06/22/16Date of Last Transfusion (if within last 3 months) NHx of Preganancy in last 3 Months NoEver experience any problems with transfusion(s)? NHx of Transfusion in last 3 Months N Reason for Type AND Screen/Red Cells: SURGERYTime: 0600SURGICAL PROCEDURE: [facility]STERReg[facility] [address]rosetxgpa[address] [place], [place], [address] Antibody Screen NEGATIVE (Normal) BLOOD TYPE GEL A NEGATIVE (Normal) 67-Mze-737971:28 Comprehensive Metabolic Profil Comments: Order Date: 06/10/16Order Date: 06/10/16[facility] [address] [place], [address] GAP 5 (Normal) Range: 5-15 CO2 28.0 [...] 7-18 GLU 79 mg/dL (Normal) Range: 70-110 48-Fwu-862907:58 CBC W/Diff, Automated Comments: [facility] [address] [place], [address] Absolute Lymph 2.98 {X10_3/ul} (Normal) Range: [...] 4.2-5.4 WBC 8.7 K/mm3 (Normal) Range: 4.4-11.0 48-Myr-544757:58 Comprehensive Metabolic Profil Comments: Is Patient Taking Vitamins or Folic Acid Supplements? [facility] [address]df[address] [place], [address] GAP 8 (Normal) Range: 5-15 CO2 [...] 7-18 GLU 95 mg/dL (Normal) Range: 70-110 10-Xne-410981:58 Erythrocyte Sed Rate Comments: [facility] Dj[address] [facility] [address] [place], [place], [address] SED RATE 25 mm/h (Normal) Range: 0-30 20-Oec-118698:58 Folates, (Folic Acid) Comments: Is Patient Taking Vitamins or Folic Acid Supplements? [facility] [address] [place], [place], [address] FOLATES 9.60 ng/mL (Normal) Range: 3.1-17.5 93-Blc-574768:58 Thyroid Stim Hormone (TSH) Comments: Is Patient Taking Vitamins or Folic Acid Supplements? [facility] [address] [place], [place], [address] TSH 2.58 {uIU/mL} (Normal) Range: 0.358-3.74 23-Vfx-271270:58 Vitamin B12 543 pg/mL (Normal) Comments: [facility] [address]xr[address] [place], [place], [address] Range: 211-911 09-Tmb-982540:07 Urinalysis, Office (12398) UA - LEUKOCYTE ESTERASE Trace (Normal) UA - NITRITE Negative (Normal) URINE UROBILINGN SHARIFA TIMED Normal mg/dL (Normal) UA - PROTEIN Negative mg/dL (Normal) UA - PH 6.5 (Normal) UA - BLOOD Hemolyzed Trace (Normal) UA - SPECIFIC GRAVITY 1.005 (Normal) UA - KETONES Negative mg/dL (Normal) UA - BILIRUBIN Negative (Normal) UA - GLUCOSE Negative (Normal) 95-Xdi-440214:04 URINE VERÓNICA CULTURE-SHARIFA COL Comments: PATIENT NOT FASTINGPERFORMED BY: [facility] Wrkfeg4335 [facility] [id number] Information: SRC:URC [id number] COUNT (56710) Antimicrobial MIHEAD (Normal) Comments: S = Susceptible; [...] (Abnormal) Urine Final report Culture,Comprehensive (Abnormal) EGD ([facility]) See Note (Normal) Comments: [facility] Ivfx[address]idcsz[address] [place], [place], [address]:04 Comments: Patient: ELIZABETH TORO : 1950 (65/F) Acct Num: [id number] Phys: JonnysaraJunior Unit Num: [id number] Loc: LABSPEC Specimen: [id number] Received: 04/21/161637 Spec Type: EGD BIOPSY TISSUES [...] in one cassette. / SJ:stormy 04/22/16 TC:3 CPT:97363 HEADER OPERATION: EGD with biopsy PRE-OP DIAGNOSIS: Dysphagia TISSUE SUBMITTED: Esophageal biopsy, R/O EE MICROSCOPIC DESCRIP TION Slides are reviewed. MICROSCOPIC DIAGNOSIS Esophageal biopsy: Fragments of squamous epithelium with mild chronic inflammation. See comment. SJ:stormy 04/23/16 Signed Sivakumartrey Mallory 04/23/16 <signature on file> CERVICAL See Note (Normal) Comments: [facility] [address] [place], [address]:15 Comments: Patient: ELIZABETH TORO : 1950 (65/F) Acct Num: [id number] Phys: Gonsalo PROCTOR,[facility] Unit Num: [id number] Loc: [facility] Specimen: [id number] Received: 04/13/16 1336 Spec Type: CER V TISSUES TISSUES: GROSS [...] one cassette. / AM: 04/13/16 TC:5 CPT: 21507 x 2 HEADER OPERATION: Hysteroscopy, diagnostic, D AND C PRE-OP DIAGNOSIS: Postmenopausal bleeding TISSUE SUBMITTED: A - Endocervical curettings, B - Endometrial curettings and polyp MICROSC OPI DESCRIPTION Slides are reviewed. MICROSCOPIC DIAGNOSIS A. Endocervix, curettings: Strips of benign superficial endocervix. Rare strips of benign superficial ectocervix. B. Endom etrium and polyp, excision: Benign endometrial polyp with simple cystic hyperplasia without atypia. Scant strips of benign superficial endometrium. AM:trena 04/14/16 Signed Ras Kaushal 04/14/16 <signature on file> :04 Bedside Glucose Comments: [facility] LaboratoryPoint of Bydb[address] [place] [address] BEDSIDE GLU 98 mg/dL (Normal) Range: 70-110 Comments: No Action RequiredMANAGEMENT OF PATIENT CARE PER NURSING PROTOCOL :08 CBC-Complete Blood Cnt No Diff Comments: [facility] [address] [place], [address] MPV 9.4 fL (Normal) Range: [...] Range: 4.4-11.0 :08 Comprehensive Metabolic Profil Comments: [facility] [address] [place], [place], [address] GAP 8 (Normal) Range: 5-15 CO2 24.0 [...] Range: 70-110 :08 Partial Thromboplast Time Comments: [facility] [address] [place], [address] PTT 29.8 s (Normal) Range: 24.1-36.2 :08 Prothrombin Time w/INR Comments: [facility] [address] [place], [place], [address] INR 1.1 (Normal) PROTIME 13.6 s (Normal) Range: 11.7-14.9 :08 Type AND Screen Comments: Surgery Date: 04/13/16Date of Last Transfusion (if within last 3 months) NHx of Preganancy in last 3 Months NoEver experience any problems with transfusion(s)? NHx of Transfusion in last 3 Months N Reason for Type AND Screen/Red Cells: SURGERYTime: 1015SURGICAL PROCEDURE: [facility] [address]nthinnfpn[address] [place], [place], [address] Antibody Screen NEGATIVE (Normal) BLOOD TYPE GEL A NEGATIVE (Normal) ENDOMETRIAL See Note (Normal) Comments: [facility] [address] [place], [address] 6:00 BX/CURETTINGS Comments: Patient: ELIZABETH TORO : 1950 (65/F) Acct Num: [id number] Phys: Gonsalo PROCTOR,[facility] Unit Num: [id number] Loc: LABSPEC Specimen: [id number] Received: 03/26/16 - 1600 Spec Type: ENDOM [...] in one cassette. / AM:stormy 03/27/16 TC:4 CPT:38773 HEADER OPERATION: Endometrial biopsy PRE-OP DIAGNOSIS: N95.0 TISSUE SUBMITTED: EMB MICROSCOPIC DESCRIPTION Slides are r eviewed. MICROSCOPIC DIAGNOSIS Endometrial biopsy: Scant strips of benign endometrial epithelium, consistent with atrophic endometrium. Fragments of benign endocervical epithelium and mucous. 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 of containers..01 CYTYC Thin Prep VialLabCorp (refer to report for specific site)refer to report for address and phone number HPV RFLX Comment (Normal) Comments: The HPV DNA reflex criteria were not met with this specimenresult therefore, no HPV testing was performed.Performed at: 95 [address]Zenon [address] [id number] Director: Annamaria Menezes MD, Phone: [phone] PAPSMR Comment (Normal) Comments: The Pap smear [...] system. PERFORM Comment (Normal) Comments: Adeline Singleton, Leather Roller (ASCP) ADEQ Comment (Normal) Comments: Satisfactory for evaluation. DIAGN Comment (Normal) Comments: NEGATIVE FOR INTRAEPITHELIAL LESION AND MALIGNANCY. 64-Tea-20517:20 Urinalysis, Complete Comments: How was Urine Obtained? DERRICK WORKER WELL SERVICE TO SPECIFYRegency Hospital Company Qfcrnotkel24[address] [facility] [place], [place], [address] MUCUS, URINE 0 SEEN {/hpf} (Normal) BACTERIA [...] (Normal) CLARITY Clear (Normal) COLOR Straw (Normal) 75-Isi-698710:50 Basic Metabolic Profile (BMP) Comments: [facility] [address] [place], [place], [address] GAP 7 (Normal) Range: 5-15 CO2 26.0 [...] <126 mg/dLsuggests IMPAIRED HOMEOSTASIS per A.D.A. criteria. 21-Ouw-436878:50 CBC W/Diff, Automated Comments: [facility] [address]vj[address] [place], [place], [address] Absolute Lymph 3.53 {X10_3/ul} (Normal) Range: 0.83-4.51 [...] K/mm3 (Normal) Range: 4.4-11.0 :02 Rapid Flu (68112 x 2) Influenza A Ag negative (Normal) 9-Yeq-909889:31 SJOGREN ANTIBOIDIES Comments: PATIENT NOT FASTINGPERFORMED BY: LabCoNewark [facility] Medical CenterZpqxgp4573 [facility] [id number] Information: [id number] (ANTI-SS-A/ANTI-SS-B) (70086) Sjogren's Anti-SS-B <0.2 {AI} (Normal) Range: 0.0-0.9 Sjogren's Anti-SS-A <0.2 {AI} (Normal) Range: 0.0-0.9 :28 Rapid Strep Test, Office (38121) Rapid Strep Test, Office Negative (Normal) 3-Shq-760020:37 Throat Culture (78836) Comments: PATIENT NOT FASTINGPERFORMED BY: [facility]6370 [facility] [id number] Information: SRC:THRT [id number] Result 1 BETAGB (Abnormal) Comments: Beta hemolytic [...] 2011) Upper Respiratory Culture Final report (Abnormal) 4-Yhu-338677:45 Basic Metabolic Profile (BMP) Comments: 'TROP' Serial specimen #1, #2, #3, or #4: [facility]WGe[facility] [address]wdwzmjyub8[address] [place], [place], [address] GAP 9 (Normal) Range: 5-15 CO2 23.0 [...] Range: 70-110 :45 CBC W/Diff, Automated Comments: [facility] [address] [place], [place], [address] Absolute Lymph 2.03 {X10_3/ul} (Normal) Range: 0.83-4.51 [...] 4.2-5.4 WBC 6.0 K/mm3 (Normal) Range: 4.4-11.0 7-Iyb-796549:45 Thyroid Stim Hormone (TSH) Comments: 'TROP' Serial specimen #1, #2, #3, or #4: [address] [place] [address] [address]ds[address]f6828 [place], [address] TSH 1.50 {uIU/mL} (Normal) Range: 0.358-3.74 :45 Troponin-I Comments: 'TROP' Serial specimen #1, #2, #3, or #4: [address] [place] [address] J[address]od8133 [place], [address] TROPONIN-I < 0.02 ng/mL (Normal) Comments: TROPONIN-I EXPECTED VALUES <0.05 NEGATIVE 0.06 - 0.59 AT RISK OF ND > OR = 0.60 SUGGEST ND :53 Pap IG (Image Comments: Source.............Cervical;EndocervicalNo. of containers..01 CYTYC Thin Prep VialPATIENT NOT FASTINGPERFORMED BY: =G [place] [address] [facility] HospitalvickyExcela [facility] [id number] BY: WB L Guided) Jennifer Jordanton120 [facility] [id number] Note: PAPSMR (Normal) Comments: The Pap smear [...] of partially obscuring exudate are present.Z00.00Adeline Singleton Leather Roller (ASCP) :01 HgA1C , Office (27637) HgA1C , Office 5.9 % (Normal) Range: 4.6 - 7.1 :00 Blood Glucose , Office (08475) Blood Glucose , Office 126 (Normal) 59-Qgk-02249:53 Thin Prep Pap Comments: Source.............Cervical;EndocervicalNo. of containers..01 CYTYC Thin Prep VialPATIENT NOT FASTINGPERFORMED BY: =G LabFortegra Financial Wmfwqzkybz401 [facility] [id number] BY: WB L (42555) [facility] Hospitalwalter JordanWoxfhxubic[address] [id number] Information: [id number] Age Gdln ACOG Testing AGE4 (Normal) Comments: <21 or >65 or no age provided :34 METABOLIC PANEL, Comments: PATIENT WAS FASTINGPERFORMED BY: LabCo Hrotge0714 [facility] [id number] Information: [id number] COMPREHENSIVE (33199) ALT (SGPT) 18 [iU]/L (Normal) Range: 0-32 [...] Glucose, Serum 83 mg/dL (Normal) Range: 65-99 28-Zkp-40533:34 CALCIFIDIOL (73184) VIT D 25 Comments: PATIENT WAS FASTINGPERFORMED BY: LabBeaumont Hospital6370 [facility] [id number] Vitamin D, 25-Hydroxy 59.6 ng/mL (Normal) Range: 30.0-100.0 Comments: Vitamin D deficiency has been defined by the [place] of[place]icine and an Endocrine Society practice guideline as alevel of serum 25-OH vitamin D less than 20 ng/mL (1,2).The Endocrine Society went on to further define vitamin Dinsufficiency as a level between 21 and 29 ng/mL (2).1. IOM ([place] of Medicine). 2010. Dietary reference intakes for calcium and D. [place]: The National AcademRentHome.ru Press.2. Leslee Chapin, Hillary PHILLIPS, et al. Evaluation, treatment, and prevention of vitamin D deficiency: an Endocrine Society clinical practice guideline. JCEM. 2010; 96(7):1911-30. :37 HgA1C , Office (63328) HgA1C , Office 6.1 % (Normal) Range: 4.6 - 7.1 :37 Blood Glucose , Office (32307) Blood Glucose , Office 107 (Normal) :27 TSH (THYROID STIMULATING Comments: PATIENT WAS FASTINGPERFORMED BY: Kymeta [facility] Dlsjoz0751 [address]k RoadDublin [place] [id number] HORMONE) (09836) TSH 2.480 {uIU/mL} (Normal) Range: 0.450-4.500 : CALCIFEDIOL (66272) Comments: PATIENT WAS FASTINGPERFORMED BY: CB [facility] Krjfye8496 Monk RoadDublin [place] [id number] Vitamin D, 25-Hydroxy 16.7 ng/mL (Abnormal) Range: 30.0-100.0 Comments: Vitamin D deficiency has been defined by the [place] ofMedicine and an Endocrine Society practice guideline as alevel of serum 25-OH vitamin D less than 20 ng/mL (1,2).The Endocrine Society went on to further define vitamin Dinsufficiency as a level between 21 and 29 ng/mL (2).1. IOM ([place] of Medicine). 2010. Dietary reference intakes for calcium and D. [place]: The National Academies Press.2. Leslee Chapin, Hillary PHILLIPS, et al. Evaluation, treatment, and prevention of vitamin D deficiency: an Endocrine Society clinical practice guideline. JCEM. 2010; 96(7):1911-30. :27 LIPID PANEL (79915) Comments: PATIENT WAS FASTINGPERFORMED BY: CB [facility] Etwnvb7812 Monk RoadDublin [place] [id number] LDL/HDL Ratio 1.2 {ratio_units} (Normal) Range: 0.0-3.2 [...] Cholesterol, Total 138 mg/dL (Normal) Range: 100-199 57-Cvm-05201:27 METABOLIC PANEL, COMPREHENSIVE Comments: PATIENT WAS FASTINGPERFORMED BY: LabCoNewark Beth Israel Medical CenterOjjqyh2241 [facility] [id number] (00854) ALT (SGPT) 19 [iU]/L (Normal) Range: 0-32 [...] & MANUAL Comments: PATIENT WAS FASTINGPERFORMED BY: SynappioNewark Beth Israel Medical CenterGfwpgy4664 [facility] [id number] Information: [id number], [id number] DIFF (55396) Immature Grans (Abs) 0.0 {x10E3/uL} (Normal) Range: [...] 3.77-5.28 WBC 7.0 {x10E3/uL} (Normal) Range: 3.4-10.8 43-Wqt-754330:31 CREATININE CLEARANCE Comments: PATIENT NOT FASTINGPERFORMED BY: SynappioNewark Beth Israel Medical CenterRbvael6212 [facility] [id number] Information: [id number] START @9AM FINISH 01/28/15@9 AM (24506) Creatinine Clearance 53 mL/min (Abnormal) Range: 88-128 [...] Hour Urine Comments: PATIENT NOT FASTINGPERFORMED BY: [employer] SolutionsCedar County Memorial HospitalYhruip5851 [facility] [id number] (41995) Prot,24hr calculated 357.5 {mg/24_hr} (Abnormal) Range: 30.0-150.0 Protein,Total,Urine 13.0 mg/dL (Normal) Range: 0.0-15.0 :28 HgA1C , Office (21057) HgA1C , Office 5.9 % (Normal) Range: 4.6 - 7.1 :28 Blood Glucose , Office (77456) Blood Glucose , Office 136 (Normal) :53 TSH (38120) Comments: PATIENT WAS FASTINGPERFORMED BY: [facility]6370 [facility] [id number] TSH 4.370 {uIU/mL} (Normal) Range: 0.450-4.500 :53 MICROALBUMIN: CREATININE RATIO Comments: PATIENT WAS FASTINGPERFORMED BY: [facility]6370 [facility] [id number] (14438) AND (13393) Microalb/Creat Ratio 5.0 {mg/g_creat} (Normal) Range: 0.0-30.0 Microalbumin, Urine 4.5 ug/mL (Normal) Range: 0.0-17.0 Creatinine, Urine 90.5 mg/dL (Normal) Range: 15.0-278.0 :53 METABOLIC PANEL, COMPREHENSIVE Comments: PATIENT WAS FASTINGPERFORMED BY: [employer] Hiwlzt0142 [facility] [id number] (69928) ALT (SGPT) 20 [iU]/L (Normal) Range: 0-32 [...] mg/dL (Abnormal) Range: 65-99 :53 LIPID PANEL (62926) Comments: PATIENT WAS FASTINGPERFORMED BY: [employer]6370 [facility] [id number] LDL/HDL Ratio 1.4 {ratio_units} (Normal) Range: 0.0-3.2 [...] DIFF WBC Comments: PATIENT WAS FASTINGPERFORMED BY: LabCoNewark [facility] Israel Medical CenterRsoosa2601 [facility] [id number] Information: [id number] (31602) Immature Grans (Abs) 0.0 {x10E3/uL} (Normal) Range: [...] 7.8 {x10E3/uL} (Normal) Range: 3.4-10.8 :53 CALCIFIDIOL (78367) VIT D 25 Comments: PATIENT WAS FASTINGPERFORMED BY: Syn[employer]io Rhobcy1162 [facility] [id number] Vitamin D, 25-Hydroxy 22.5 ng/mL (Abnormal) Range: 30.0-100.0 Comments: Vitamin D deficiency has been defined by the [place] of[facility] and an Endocrine Society practice guideline as alevel of serum 25-OH vitamin D less than 20 ng/mL (1,2).The Endocrine Society went on to further define vitamin Dinsufficiency as a level between 21 and 29 ng/mL (2).1. IOM ([place] of Medicine). 2010. Dietary reference intakes for calcium and D. [place]: The National Academies Press.2. Azael MF, Leslee LEMON, Hillary PHILLIPS, et al. Evaluation, treatment, and prevention of vitamin D deficiency: an Endocrine Society clinical practice guideline. JCEM. 2010; 96(7):1911-30. :22 HgA1C , Office (54714) HgA1C , Office 6.0 % (Normal) Range: 4.6 - 7.1 :22 Blood Glucose , Office (84823) Blood Glucose , Office 132 (Normal) :27 Blood Glucose , Office (27223) Blood Glucose , Office 114 (Normal) :27 HgA1C , Office (36737) HgA1C , Office 5.9 % (Normal) Range: 4.6 - 7.1 :00 Basic Metabolic Panel (8) Comments: PATIENT NOT FASTINGPERFORMED BY: LabCoNewark [facility] Israel Medical CenterEyeecc9859 [facility] [id number] BY: [address] [id number] Calcium, Serum 9.8 mg/dL (Normal) Range: 8.6-10.2 [...] 287 {mOsmol/kg} Comments: PATIENT NOT FASTINGPERFORMED BY: [employer]70 [facility] [id number] BY: Synappio[address] [id number] 00 (Normal) Range: 280-301 : Osmolality, Urine 259 {mOsmol/kg} Comments: PATIENT NOT FASTINGPERFORMED BY: [employer]70 [facility] [id number] BY: Synappio[address] [id number] 00 (Normal) Comments: 24 hr : 300 - 900 Random: 50 - 1400 After 12hr fluid restriction: >850 : Sodium, Urine 11 mmol/L (Normal) Comments: PATIENT NOT FASTINGPERFORMED BY: [employer]70 [facility] [id number] BY: Synappio[address] [id number] 00 6-Rff-126387:06 Metabolic Panel, Basic Comments: PATIENT NOT FASTINGPERFORMED BY: [employer]70 [facility] [id number] Information: [id number] (36615) Calcium, Serum 9.9 mg/dL (Normal) Range: 8.6-10.2 [...] Glucose, Serum 108 mg/dL (Abnormal) Range: 65-99 97-Imn-900681:34 CBCD Comments: pt has apt with db [...] <0.05 NEGATIVE0.06 - 0.59 AT RISK OF ND> OR = 0.60 SUGGEST ND 72-Thh-255289:34 TSH 2.32 {uIU/mL} (Normal) Comments: 'TROP' Serial specimen #1, #2, #3, or #4: 1 Range: 0.358-3.74 01-May-20140:00 Microscopic Examination Comments: PATIENT WAS FASTINGPERFORMED BY: [facility] Vnxbjz7985 [address] [place] [id number] Bacteria Few (Normal) Mucus Threads Present (Normal) Epithelial Cells (non renal) 0-10 {/hpf} (Normal) Range: 0 - 10 RBC 0-2 {/hpf} (Normal) Range: 0 - 2 WBC 11-30 {/hpf} (Abnormal) Range: 0 - 5 46-Byc-424690:15 TSH (76040) Comments: PATIENT WAS FASTINGPERFORMED BY: [facility] Zpmpop7577 [address]k RoadDublin [place] [id number] TSH 3.310 {uIU/mL} (Normal) Range: 0.450-4.500 97-Sbw-221140:15 CALCIFIDIOL (01047) VIT D 25 Comments: PATIENT WAS FASTINGPERFORMED BY: CB [facility] Mvvcbp4512 [address] [facility] [place] [id number] Vitamin D, 25-Hydroxy 35.7 ng/mL (Normal) Range: 30.0-100.0 Comments: Vitamin D deficiency has been defined by the [place] [facility] and an Endocrine Society practice guideline as alevel of serum 25-OH vitamin D less than 20 ng/mL (1,2).The Endocrine Society went on to further define vitamin Dinsufficiency as a level between 21 and 29 ng/mL (2).1. IOM ([place] of Medicine). 2010. Dietary reference intakes for calcium and D. [place]: The National Academies Press.2. Azael MF, Leslee NC, Hillary PHILLIPS, et al. Evaluation, treatment, and prevention of vitamin D deficiency: an Endocrine Society clinical practice guideline. JCEM. 2010; 96(7):1911-30. 32-Cmj-858513:15 URINALYSIS, W/ MICRO (21381) Comments: PATIENT WAS FASTINGPERFORMED BY: [facility] CenterQpmnlj0593 [facility] [id number] Microscopic Examination See below: (Normal) Nitrite, Urine Positive (Abnormal) Bilirubin Negative (Normal) Urobilinogen,Semi-Qn 0.2 mg/dL (Normal) Range: 0.0-1.9 Ketones Negative (Normal) Occult Blood Negative (Normal) Glucose Negative (Normal) Protein Negative (Normal) Appearance Clear (Normal) WBC Esterase 2+ (Abnormal) pH 6.5 (Normal) Range: 5.0-7.5 Urine-Color Yellow (Normal) Specific [place] 1.015 (Normal) Range: 1.005-1.030 55-Ilc-834006:15 METABOLIC PANEL, COMPREHENSIVE Comments: PATIENT WAS FASTINGPERFORMED BY: [facility] CenterEbzhpq7648 [facility] [id number] (91153) ALT (SGPT) 19 [iU]/L (Normal) Range: 0-32 [...] Glucose, Serum 118 mg/dL (Abnormal) Range: 65-99 86-Eet-631608:15 LIPID PANEL (56929) Comments: PATIENT WAS FASTINGPERFORMED BY: [facility]appioNew[facility] CenterOxvsrz4775 [facility] [id number] LDL/HDL Ratio 1.7 {ratio_units} (Normal) Range: 0.0-3.2 LDL Cholesterol Calc 90 mg/dL (Normal) Range: 0-99 VLDL Cholesterol Hillary 33 mg/dL (Normal) Range: 5-40 HDL Cholesterol 53 mg/dL (Normal) Comments: According to ATP-III Guidelines, HDL-C >59 mg/dL is considered anegative risk factor for CHD. Triglycerides 166 mg/dL (Abnormal) Range: 0-149 Cholesterol, Total 176 mg/dL (Normal) Range: 100-199 24-Yqm-576792:15 CBC WITH MANUAL DIFF Comments: PATIENT WAS FASTINGPERFORMED BY: [facility] Hohrpl7618 [facility] [id number] Information: [id number] (26304) Immature Grans (Abs) 0.0 {x10E3/uL} (Normal) Range: [...] 3.77-5.28 WBC 7.0 {x10E3/uL} (Normal) Range: 3.4-10.8 50-Kwk-850274:20 Blood Glucose , Office (13979) Blood Glucose , Office 102 (Normal) 18-Fld-169024:20 HgA1C , Office (98615) HgA1C , Office 6.0 % (Normal) Range: 4.6 - 7.1 2-Zmv-017203:27 URINE VERÓNICA CULTURE-IDENTIFICATN Comments: PATIENT NOT FASTINGPERFORMED BY: [facility] CenterSpvins7830 [facility] [id number] Information: [id number] (03332) Result 1 NG36 (Normal) Comments: No growth in 36 - 48 hours. Urine Culture,Comprehensive Final report (Normal) 3-Mog-867975:03 URINALYSIS (08959) URINALYSIS neg for all (Normal) 81-Fyh-63078:31 URINE VERÓNICA CULTURE-SHARIFA COL Comments: PATIENT NOT FASTINGPERFORMED BY: [facility] CenterVndecj4087 [facility] [id number] Information: SRC:UR [id number] COUNT ([id number]) Antimicrobial MIHEAD (Normal) Comments: S = Susceptible; [...] mL (Normal) Urine Final report Culture,Comprehensive (Normal) 16-Pqw-35410:26 Urinalysis, Office (58971) UA - LEUKOCYTE ESTERASE Moderate (Normal) UA - NITRITE Negative (Normal) URINE UROBILINGN SHARIFA TIMED Normal mg/dL (Normal) UA - PROTEIN Negative mg/dL (Normal) UA - PH 5 (Abnormal) UA - BLOOD Hemolyzed Small (Normal) UA - SPECIFIC GRAVITY 1.025 (Normal) UA - KETONES Negative mg/dL (Normal) UA - BILIRUBIN Negative (Normal) UA - GLUCOSE Negative (Normal) :52 LIPID PANEL (30958) Comments: PATIENT WAS FASTINGPERFORMED BY: [employer] [facility] [id number] Information: [id number] LDL/HDL Ratio 2.1 {ratio_units} (Normal) Range: 0.0-3.2 LDL Cholesterol Calc 111 mg/dL (Abnormal) Range: 0-99 VLDL Cholesterol Hillary 31 mg/dL (Normal) Range: 5-40 HDL Cholesterol 53 mg/dL (Normal) Comments: According to ATP-III Guidelines, HDL-C >59 mg/dL is considered anegative risk factor for CHD. Triglycerides 156 mg/dL (Abnormal) Range: 0-149 Cholesterol, Total 195 mg/dL (Normal) Range: 100-199 :52 HEPATIC FUNCTION PANEL (43348) Comments: PATIENT WAS FASTINGPERFORMED BY: [employer]70 [facility] [id number] ALT (SGPT) 17 [iU]/L (Normal) Range: 0-32 AST (SGOT) 23 [iU]/L (Normal) Range: 0-40 Alkaline Phosphatase, S 57 [iU]/L (Normal) Range: 39-117 Bilirubin, Direct 0.08 mg/dL (Normal) Range: 0.00-0.40 Bilirubin, Total 0.3 mg/dL (Normal) Range: 0.0-1.2 Albumin, Serum 4.3 g/dL (Normal) Range: 3.6-4.8 Protein, Total, Serum 7.2 g/dL (Normal) Range: 6.0-8.5 :52 CALCIFEDIOL (44795) Comments: PATIENT WAS FASTINGPERFORMED BY: [employer] Fjnohk6156 [facility] [id number] Vitamin D, 25-Hydroxy 13.8 ng/mL (Abnormal) Range: 30.0-100.0 Comments: Vitamin D deficiency has been defined by the [place] ofMedicine and an Endocrine Society practice guideline as alevel of serum 25-OH vitamin D less than 20 ng/mL (1,2).The Endocrine Society went on to further define vitamin Dinsufficiency as a level between 21 and 29 ng/mL (2).1. IOM ([place] of Medicine). 2010. Dietary reference intakes for calcium and D. [place]: The National Academies Press.2. Azael MF, Leslee NC, Hillary PHILLIPS, et al. Evaluation, treatment, and prevention of vitamin D deficiency: an Endocrine Society clinical practice guideline. JCEM. 2010; 96(7):1911-30. 23-Pgf-879590:38 Blood Glucose , Office (73737) Blood Glucose , Office 114 (Normal) 03-Kwm-601321:38 HgA1C , Office (09879) HgA1C , Office 5.8 % (Normal) Range: 4.6 - 7.1 30-Hcg-845940:23 Urinalysis, Office (54510) UA - BILIRUBIN Negative (Normal) UA - BLOOD Hemolyzed Trace (Normal) UA - GLUCOSE Negative (Normal) UA - KETONES Negative mg/dL (Normal) UA - LEUKOCYTE ESTERASE Small (Normal) UA - NITRITE Negative (Normal) UA - PH 5.0 (Normal) UA - PROTEIN Negative mg/dL (Normal) UA - SPECIFIC GRAVITY 1.025 (Normal) URINE UROBILINGN SHARIFA TIMED Normal mg/dL (Normal) 09-Kah-790090:50 Metabolic Panel, Basic Comments: PATIENT NOT FASTINGPERFORMED BY: [facility] Mpqsoq2156 [facility] [id number] Information: [id number] (53621) Calcium, Serum 9.9 mg/dL (Normal) Range: 8.6-10.2 [...] Glucose, Serum 84 mg/dL (Normal) Range: 65-99 13-Xgm-018251:39 BRAIN WITHOUT CONTRAST Radiology Report See Note [...] Sweeney M.D.July 12, 2013 at 4:19:02 PM [id number] Signed PV/PV If you are the referring physician and would like to consult with theradiologist who provided this interpretation, please contact Petrona molina M.D. at [phone]. If this radiologist is unavailable, youwillbe directed to another radiologist to assist. If you are a patient with a question regarding this report, pleasecontactyour referring physician directly. Professional Interpretation Provided By: Envoimoinscher, Phone , These documents contain legally protected [...] Dictated on 07/12/13 1619 by Annie Meek MD amelaTranscribed on 07/12/13 1621 by ITS IMPORTSign by Petrona Meek MD on 07/12/13 1622 Sign by: Petrona Meek MD 9-Wgp-366376:39 CRE GFRAA 45 mL/min (Abnormal) GFR 37 mL/min (Abnormal) CREAT 1.5 mg/dL (Abnormal) Range: 0.6-1.0 :30 CRECLR Comments: START 07-05-13 @ 830AMEND 07-06-13 @ 830AM CCREU 26.9 mg/dL (Normal) GFR 37 mL/min (Abnormal) tCRECL 37 ml/min (Abnormal) Range: 100-200 CCTV 3000 mL (Normal) tCREAT 1.5 mg/dL (Abnormal) Range: 0.6-1.0 CCC 24.0 {HOURS} (Normal) :30 PROU Comments: START 07-05-13 @ 830AMEND 07-06-13 @ 830AM uPRO24 180 {MG/24HR} (Abnormal) uPRO < 6.0 mg/dL (Normal) Comments: Protein in this specimen is below the assay range;therefore, the calculation for 24 Hour Protein can not bedetermined. UPTV 3000 mL (Normal) UPCT 24.0 {HOURS} (Normal) 4-Nlu-873855:39 Metabolic Panel, Basic Comments: recheck in one week; PATIENT NOT FASTINGPERFORMED BY: [facility] CenterHziqyy4493 [facility] [id number] Information: [id number] (37068) Calcium, Serum 9.7 mg/dL (Normal) Range: 8.6-10.2 [...] Glucose, Serum 109 mg/dL (Abnormal) Range: 65-99 89-Rbb-67310:50 Metabolic Panel, Basic Comments: PATIENT NOT FASTINGPERFORMED BY: [facility] CenterMaodzm9112 [facility] [id number] Information: [id number] (71639) Calcium, Serum 9.5 mg/dL (Normal) Range: 8.6-10.2 [...] (Abnormal) Range: 65-99 :29 HgA1C , Office (97858) HgA1C , Office 5.7 % (Normal) Range: 4.6 - 7.1 30-Bzy-348372:14 TSH (59328) Comments: PATIENT NOT FASTINGPERFORMED BY: [facility]6370 [facility] [id number] TSH 2.850 {uIU/mL} (Normal) Range: 0.450-4.500 :14 CBC, Platelets & Auto Comments: PATIENT NOT FASTINGPERFORMED BY: [facility]6370 [facility] [id number] Information: [id number] Diff (27845) Immature Grans (Abs) 0.0 {x10E3/uL} (Normal) Range: [...] 3.77-5.28 WBC 7.5 {x10E3/uL} (Normal) Range: 4.0-10.5 57-Mon-693158:14 Metabolic Panel, Comprehensive Comments: PATIENT NOT FASTINGPERFORMED BY: [facility] Fcnebt1342 [facility] [id number] (37912) ALT (SGPT) 19 [iU]/L (Normal) Range: 0-32 [...] Glucose, Serum 105 mg/dL (Abnormal) Range: 65-99 80-Eqk-421979:06 URINE VERÓNICA CULTURE-SHARIFA COL Comments: PATIENT NOT FASTINGPERFORMED BY: [employer] [facility] SolutionsBe[facility] Hospital6370 [facility] [id number] Information: SRC:UR ADD [id number] COUNT (22769) Antimicrobial MIHEAD (Normal) Comments: S = Susceptible; [...] mL (Normal) Urine Final report Culture,Comprehensive (Normal) 92-Fry-776690:09 Urinalysis, Office (40439) UA - BILIRUBIN Negative (Normal) UA - BLOOD Hemolyzed Moderate (Normal) UA - GLUCOSE Negative (Normal) UA - KETONES Negative mg/dL (Normal) UA - LEUKOCYTE ESTERASE Small (Normal) UA - NITRITE Negative (Normal) UA - PH 6.0 (Normal) UA - PROTEIN Negative mg/dL (Normal) UA - SPECIFIC GRAVITY 1.005 (Normal) URINE UROBILINGN SHARIFA TIMED 2 mg/dL (Normal) 7-Bpw-578996:04 Renal function Panel Comments: PATIENT NOT FASTINGPERFORMED BY: [facility]6370 [facility] [id number] Information: [id number] (56515) Albumin, Serum 4.1 g/dL (Normal) Range: 3.6-4.8 [...] Glucose, Serum 110 mg/dL (Abnormal) Range: 65-99 69-Xby-537379:22 CALCIFEDIOL (31947) Comments: PATIENT NOT FASTINGPERFORMED BY: [employer] [place] [id number] Vitamin D, 25-Hydroxy 16.7 ng/mL (Abnormal) Range: 30.0-100.0 Comments: Vitamin D deficiency has been defined by the [place] [facility] and an Endocrine Society practice guideline as alevel of serum 25-OH vitamin D less than 20 ng/mL (1,2).The Endocrine Society went on to further define vitamin Dinsufficiency as a level between 21 and 29 ng/mL (2).1. IOM ([place] of Medicine). 2010. Dietary reference intakes for calcium and D. [place]: The National Academies Press.2. Azael MF, Leslee LEMON, Hillary PHILLIPS, et al. Evaluation, treatment, and prevention of vitamin D deficiency: an Endocrine Society clinical practice guideline. JCEM. 2010; 96(7):1911-30. 23-Vxi-832066:22 MAGNESIUM (85534) Comments: PATIENT NOT FASTINGPERFORMED BY: K[employer]eta [facility] Cddtcr5709 [address] RoadDublin [place] [id number] Magnesium, Serum 2.3 mg/dL (Normal) Range: 1.6-2.6 :22 T4, FREE (THYROXINE) (90418) Comments: PATIENT NOT FASTINGPERFORMED BY: [facility] Mwnlxp5525 [address]k RoadDublin [place] [id number] T4,Free(Direct) 1.50 ng/dL (Normal) Range: 0.82-1.77 :22 T3, FREE (TRIDOTHYRONINE) (31139) Comments: PATIENT NOT FASTINGPERFORMED BY: [facility]6370 [facility] [id number] Triiodothyronine,Free,Serum 2.6 pg/mL (Normal) Range: 2.0-4.4 :22 TSH (99101) Comments: PATIENT NOT FASTINGPERFORMED BY: [facility]6370 [facility] [id number] TSH 1.920 {uIU/mL} (Normal) Range: 0.450-4.500 :22 CBC, Platelets & Auto Comments: PATIENT NOT FASTINGPERFORMED BY: [facility]6370 [facility] [id number] Information: [id number] Diff (34481) Immature Grans (Abs) 0.0 {x10E3/uL} (Normal) Range: [...] 3.77-5.28 WBC 8.5 {x10E3/uL} (Normal) Range: 4.0-10.5 70-Pze-695136:22 Metabolic Panel, Comprehensive Comments: PATIENT NOT FASTINGPERFORMED BY: [facility] CenterBwsjmv1029 [facility] [id number] (91193) ALT (SGPT) 21 [iU]/L (Normal) Range: 0-32 [...] Glucose, Serum 97 mg/dL (Normal) Range: 65-99 5-Mjr-985138:20 METABOLIC PANEL, COMPREHENSIVE Comments: PATIENT WAS FASTINGPERFORMED BY: EMIL [employer] Iogkyu6902 [facility] [id number] (53944) ALT (SGPT) 19 [iU]/L (Normal) Range: 0-32 [...] Glucose, Serum 102 mg/dL (Abnormal) Range: 65-99 4-Qao-595254:20 CBC WITH MANUAL DIFF Comments: PATIENT WAS FASTINGPERFORMED BY: [facility]ioNew[facility] Medical CenterGlgyzk0341 [facility] [id number] Information: [id number] (09554) Immature Grans (Abs) 0.0 {x10E3/uL} (Normal) Range: [...] 3.77-5.28 WBC 7.4 {x10E3/uL} (Normal) Range: 3.4-10.8 4-Ley-344203:20 LIPID PANEL (48388) Comments: PATIENT WAS FASTINGPERFORMED BY: [facility] Qbhmgi1742 [facility] [id number] LDL/HDL Ratio 2.0 {ratio_units} (Normal) Range: 0.0-3.2 LDL Cholesterol Calc 109 mg/dL (Abnormal) Range: 0-99 VLDL Cholesterol Hillary 35 mg/dL (Normal) Range: 5-40 HDL Cholesterol 54 mg/dL (Normal) Comments: According to ATP-III Guidelines, HDL-C >59 mg/dL is considered anegative risk factor for CHD. Triglycerides 175 mg/dL (Abnormal) Range: 0-149 Cholesterol, Total 198 mg/dL (Normal) Range: 100-199 2-Ipy-004520:20 TSH (32971) Comments: PATIENT WAS FASTINGPERFORMED BY: [facility]CoUNM Cancer CenterTcjucd8950 [address] [place] [id number] TSH 2.720 {uIU/mL} (Normal) Range: 0.450-4.500 42-Atk-089412:22 HgA1C , Office (54589) HgA1C , Office 6.0 % (Normal) Range: 4.6 - 7.1 81-Ser-790332:22 Blood Glucose , Office (55845) Blood Glucose , Office 249 (Normal) Comments: has eaten in last 2h 86-Pte-108958:20 CHEST, PA AND LATERAL Radiology Report See [...] Signed:Anibal Lan M.D.November 022012 at 8:14:34 AM [phone] Signed GP/GP If you are the referring physician and would like to consult with theradiologist who provided this interpretation, please contact Eliecer Bui M.D. at [phone]. If this radiologist is unavailable, youwill be directed to another radiologist to assist. If you are a patient with a question regarding this report, pleasecontactyour referring physician directly. Professional Interpretation Provided By: Envoimoinscher, Phone , These documents contain legally protected [...] the return or destructionofthese documents. Dictated on 11/21/127 by Chhaya ortiz MD,Isiahranscribed on 11/22/12817 by ITS IMPORTSign by Anibal Lan MD on 11/22/12817 Sign by: Anibal Lan MD 16-Qeb-00146:19 VERÓNICA CULTURE-OTHER (92398) Comments: PATIENT NOT FASTINGPERFORMED BY: K[employer] [facility]Co[facility] Medical CenterCtopre1890 [facility] [id number] Information: SRC:THRT [id number] Result 1 RRF (Normal) Comments: Routine respiratory duyen Upper Respiratory Culture Final report (Normal) 16-Nho-959440:33 Rapid Strep Test, Office (24659) Rapid Strep Test, Office Negative (Normal) 8-Tvw-892555:50 Celiac Disease Comprehensive Comments: PERFORMED BY: Kymeta LabCoScutumCwvucw8363 [facility] [id number] Immunoglobulin A, Qn, 364 mg/dL (Normal) Range: [...] Potassium, Serum 4.0 mmol/L Comments: PERFORMED BY: [facility] Azfynh1106 [facility] [id number] 4:50 (Normal) Range: 3.5-5.2 6-Men-712066:30 CBCMD ANC 3.7 3/uL (Normal) Range: 2.0-7.7 [...] 4.2-5.4 WBC 7.0 {k/mm3} (Normal) Range: 4.4-11.0 5-Yxt-141573:30 CMP GAP 11 (Normal) Range: 5-15 CO2 [...] 7-18 GLU 93 mg/dL (Normal) Range: 70-110 5-Jur-524488:30 LIPID LDL 108 mg/dL (Normal) Range: 0-130 [...] Very High > or = 500 mg/dL 8-Pup-300731:30 MIACRE MIALB 5.8 mg/L (Normal) tMICROCREAT 9.5 {mg/g_CRE} (Normal) CREU 60.7 mg/dL (Normal) 9-Jhc-517392:30 TSH 0.75 {uIU/mL} (Normal) Range: 0.358-3.74 :54 HgA1C , Office (51416) HgA1C , Office 5.5 % (Normal) Range: 4.6 - 7.1 63-Uyv-24165:54 Blood Glucose , Office (17504) Blood Glucose , Office 116 (Normal) 27-Hzx-004394:26 URINE VERÓNICA CULTURE-SHARIFA COL Comments: PATIENT NOT FASTINGPERFORMED BY: [facility] Dttowi08[address] [place] [id number] Information: SRC:CLAUDINE [id number] COUNT (14404) Result 1 MUG (Normal) Comments: Mixed urogenital flora50,000-100,000 colony forming units per mL Urine Final report (Normal) Culture,Comprehensive 44-Pqn-879978:46 Urinalysis, Office (82845) UA - BILIRUBIN Small (Normal) UA - BLOOD Hemolyzed Small (Normal) UA - GLUCOSE Negative (Normal) UA - KETONES Small mg/dL (Normal) UA - LEUKOCYTE ESTERASE Moderate (Normal) UA - NITRITE Negative (Normal) UA - PH 6.0 (Normal) UA - PROTEIN Trace mg/dL (Normal) UA - SPECIFIC GRAVITY 1.025 (Normal) URINE UROBILINGN SHARIFA TIMED Normal mg/dL (Normal) 19-Jze-799449:55 CHEST, PA AND LATERAL Radiology Report See [...] radiologist regarding this report, please call our 65I7vaybjkr line @ Dictated on 1518 by Isiah Lan MDranscribed on 11/23/11 1611 by ITS IMPORTSign by Anibal Lan MD on 11/23/11 1611 Sign by: Edyta PROCTORAnibal :51 Urinalysis, Office (09964) UA - BILIRUBIN Negative (Normal) UA - BLOOD Hemolyzed Small (Normal) UA - GLUCOSE Negative (Normal) UA - KETONES Negative mg/dL (Normal) UA - LEUKOCYTE ESTERASE Large (Normal) UA - NITRITE Negative (Normal) UA - PH 7.0 (Normal) UA - PROTEIN Negative mg/dL (Normal) UA - SPECIFIC GRAVITY 1.020 (Normal) URINE UROBILINGN SHARIFA TIMED 2 mg/dL (Normal) :51 HgA1C , Office (37997) HgA1C , Office 6.2 % (Normal) Range: 4.6 - 7.1 :50 Blood Glucose , Office (63326) Blood Glucose , Office 119 (Normal) :55 Urinalysis, Office (98401) UA - BILIRUBIN Negative (Normal) UA - [...] Ultrasound evaluation of the right upper [facility] with real-time ultrasonography and static grayscale [...] Muscle) 13 {Units} (Normal) Comments: PERFORMED BY: [employer] [place] [id number] :58 Antibody Range: 0-19 Comments: Negative 0 - 19 Weak positive 20 - 30 Moderate to strong positive >30 . Actin Antibodies are found in 52-85% of patients with autoimmune hepatitis or chronic active hepatitis and in 22% of patients with primary biliary cirrhosis. :58 Antinuclear Antibodies Direct Comments: PERFORMED BY: [employer] [place] [id number] GAYATRI Direct Negative (Normal) :5 Ceruloplasmin 31.6 mg/dL (Normal) Comments: PERFORMED BY: [employer] [place] [id number] Range: 16.0-45.0 :5 Ferritin, Serum 440 ng/mL (Abnormal) Comments: PERFORMED BY: [employer] [place] [id number] Range: 13-150 :58 Hepatitis Panel (4) Comments: PERFORMED BY: [facility]6370 [facility] [id number] Hep C Virus Ab 0.1 {s/co_ratio} (Normal) Range: 0.0-0.9 Comments: Negative: < 0.8 Indeterminate 0.8 - 0.9 Positive: > 0.9 . In order to reduce the incidence of a false positive result, the [facility] recommends that all s/co ratios between 1.0 and 10.9 be confirmed with additional RIBA or PCR testing. Hep B Core Ab, IgM Negative (Normal) HBsAg Screen Negative (Normal) Hep A Ab, IgM Negative (Normal) 58-Yrf-90145:58 Iron and TIBC Comments: PERFORMED BY: [facility]6370 [facility] [id number] Iron Saturation 37 % (Normal) Range: 15-55 Iron, Serum 96 ug/dL (Normal) Range: 35-155 UIBC 163 ug/dL (Normal) Range: 150-375 Iron Bind.Cap.(TIBC) 259 ug/dL (Normal) Range: 250-450 :58 Platelet Count on Citrated Comments: PERFORMED BY: [facility]6370 [facility] [id number] Bld Plt Count, Citrated Bld 216 {X10E3/uL} Range: 140-415 (Normal) 11-Jun-2011 Written Authorization WAR (Normal) Comments: PERFORMED BY: [facility]6370 [facility] [id number] 9:58 Comments: Written Authorization Received.Authorization received from [facility] [id number] by Elian Swain :30 HgA1C , Office (52144) HgA1C , Office 6.7 % (Normal) Range: 4.6 - 7.1 :30 Blood Glucose , Office (48765) Blood Glucose , Office 159 (Normal) :15 METABOLIC PANEL, COMPREHENSIVE Comments: PATIENT WAS FASTINGPERFORMED BY: [facility]6370 [facility] [id number] (46750) ALT (SGPT) 51 [iU]/L (Abnormal) Range: 0-40 [...] mg/dL (Abnormal) Range: 65-99 03-Jun-20119:15 LIPID PANEL (72100) Comments: PATIENT WAS FASTINGPERFORMED BY: [facility] Jdovoa7784 [facility] [id number] LDL/HDL Ratio 1.8 {ratio_units} (Normal) Range: 0.0-3.2 [...] MANUAL DIFF Comments: PATIENT WAS FASTINGPERFORMED BY: [facility]Co[facility] CenterFmqxdx5949 [facility] [id number] Information: [id number] (92559) Immature Grans (Abs) 0.0 {x10E3/uL} (Normal) Range: [...] 3.80-5.10 WBC 8.3 {x10E3/uL} (Normal) Range: 4.0-10.5 :26 Hepatic Function Panel (7) Comments: PERFORMED BY: [facility]appioNewark [facility] CenterTkphel1348 [facility] [id number] ALT (SGPT) 63 [iU]/L (Abnormal) Range: 0-40 Alkaline Phosphatase, S 63 [iU]/L (Normal) Range: 25-165 AST (SGOT) 53 [iU]/L (Abnormal) Range: 0-40 Bilirubin, Direct 0.13 mg/dL (Normal) Range: 0.00-0.40 Bilirubin, Total 0.4 mg/dL (Normal) Range: 0.0-1.2 Albumin, Serum 4.5 g/dL (Normal) Range: 3.6-4.8 Protein, Total, Serum 7.8 g/dL (Normal) Range: 6.0-8.5 :26 Hepatitis Panel (4) Comments: PERFORMED BY: [facility]appioNewark [facility] CenterLgwatq7500 [facility] [id number] Hep C Virus Ab <0.1 {s/co_ratio} (Normal) [...] (Normal) Hep A Ab, IgM Negative (Normal) 1-Ulr-602642:04 LIVER D BILI 0.11 mg/dL (Normal) Range: 0.00-0.30 T BILI 0.30 mg/dL (Normal) Range: 0.00-1.00 ALK P 57 U/L (Normal) Range: 50-136 ALT 68 U/L (Normal) Range: 12-78 ALB 4.0 g/dL (Normal) Range: 3.4-5.0 AST 53 U/L (Abnormal) Range: 15-37 T PROT 8.0 g/dL (Normal) Range: 6.4-8.2 :59 HgA1C , Office (80133) HgA1C , Office 6.6 % (Normal) Range: 4.6 - 7.1 :59 Blood Glucose , Office (06078) Blood Glucose , Office 124 (Normal) :17 HgA1C , Office (55352) HgA1C , Office 6.4 % (Normal) Range: 4.6 - 7.1 :17 Blood Glucose , Office (25088) Blood Glucose , Office 141 (Normal) :17 Hemoglobin Glyclated (HGB A1C) Comments: PATIENT WAS FASTINGPERFORMED BY: SynappioUNM Cancer CenterYufsph2753 [facility] [id number] (36150) Hemoglobin A1c 6.0 % (Abnormal) Range: 4.8-5.6 Comments: Increased risk for diabetes: 5.7 - 6.4 Diabetes: >6.4 Glycemic control for adults with diabetes: <7.0 :17 MICROALBUMIN: CREATININE RATIO Comments: PATIENT WAS FASTINGPERFORMED BY: SynappioUNM Cancer CenterIxklyp1949 [facility] [id number] (83259) AND (38399) Microalb/Creat Ratio 2.9 {mg/g_creat} (Normal) Range: 0.0-30.0 Creatinine, Urine 49.0 mg/dL (Normal) Range: 15.0-278.0 Microalbumin, Urine 1.4 ug/mL (Normal) Range: 0.0-17.0 :17 METABOLIC PANEL, COMPREHENSIVE Comments: PATIENT WAS FASTINGPERFORMED BY: [employer] Fwocwa9350 [facility] [id number] ([id number]) Alkaline Phosphatase, S 61 [iU]/L (Normal) Range: [...] Age Male Female <18 years 9 - 25 18 - 39 years [...] Glucose, Serum 116 mg/dL (Abnormal) Range: 65-99 10-Eww-905875:17 LIPID PANEL (80660) Comments: PATIENT WAS FASTINGPERFORMED BY: LabCoNewark [facility] CenterAnsrza4843 [facility] [id number] LDL/HDL Ratio 2.2 {ratio_units} (Normal) Range: 0.0-3.2 HDL Cholesterol 50 mg/dL (Normal) Comments: According to ATP-III Guidelines, HDL-C >59 mg/dL is considered anegative risk factor for CHD. LDL Cholesterol Calc 109 mg/dL (Abnormal) Range: 0-99 VLDL Cholesterol Hillary 56 mg/dL (Abnormal) Range: 5-40 Cholesterol, Total 215 mg/dL (Abnormal) Range: 100-199 Triglycerides 282 mg/dL (Abnormal) Range: 0-149 83-Izv-862636:17 CBC WITH MANUAL DIFF (52774) Comments: PATIENT WAS FASTINGPERFORMED BY: LabPurThread TechnologiesNewark [facility] Israel Medical CenterLcyqxv3012 [facility] [id number] Immature Grans (Abs) 0.0 {x10E3/uL} (Normal) Range: [...] (Normal) Range: 4.0-10.5 :57 Folic Acid Serum (67965) Comments: PATIENT NOT FASTINGPERFORMED BY: [facility]appioNewark [facility] Medical CenterDqmdwt4861 [facility] [id number] Folate (Folic Acid), Serum 12.6 ng/mL (Normal) Comments: Indeterminate: 2.2 - 3.0Deficient: <2.2 :57 Vitamin B-12 (cyanocobalamin) Comments: PATIENT NOT FASTINGPERFORMED BY: [place] 3421870 [facility] [id number] ([id number]) Vitamin B12 551 pg/mL (Normal) Range: 211-946 :57 CBC with manual diff Comments: PATIENT NOT FASTINGPERFORMED BY: [facility]6370 [facility] [id number] Information: [id number] (69135) Baso (Absolute) 0.1 {x10E3/uL} (Normal) Range: 0.0-0.2 [...] 3.80-5.10 WBC 9.4 {x10E3/uL} (Normal) Range: 4.0-10.5 97-Phk-101801:57 Metabolic Panel, Comprehensive Comments: PATIENT NOT FASTINGPERFORMED BY: [facility]CoNew[facility] CenterLsrfno3665 [facility] [id number] ([id number]) ALT (SGPT) 18 [iU]/L (Normal) Range: 0-40 [...] mg/dL (Abnormal) Range: 65-99 :57 DRUG ASSAY-LITHIUM (35302) Comments: PATIENT NOT FASTINGPERFORMED BY: [employer] Efsejy7187 [facility] [id number] [place] (Eskalith), Serum 1.0 mmol/L (Normal) Range: 0.6-1.4 Comments: Detection Limit = 0.1<0.1 indicates None Detected :57 T4, FREE (THYROXINE) (03819) Comments: PATIENT NOT FASTINGPERFORMED BY: [employer] Tqgsbx8826 [facility] [id number] T4,Free(Direct) 1.17 ng/dL (Normal) Range: 0.82-1.77 :57 T3, FREE (TRIDOTHYRONINE) (53311) Comments: PATIENT NOT FASTINGPERFORMED BY: [employer] Evejbk8062 [facility] [id number] Triiodothyronine,Free,Serum 2.1 pg/mL (Normal) Range: 2.0-4.4 :57 TSH (82617) Comments: PATIENT NOT FASTINGPERFORMED BY: [employer] Gzmosd1237 [facility] [id number] TSH 4.080 {uIU/mL} (Normal) Range: 0.450-4.500 07-Feh-534355:43 HgA1C , Office (55247) HgA1C , Office 5.3 % (Normal) Range: 4.6 - 7.1 :43 Blood Glucose , Office (51299) Blood Glucose , Office 125 (Normal) :4 [...] 136-145 GLU 84 mg/dL (Normal) Range: 70-110 04-Vev-197364:42 LI 0.60 mmol/L (Normal) Comments: Therapeutic Range: 0.60 - 1.20 05-Ifd-068382:58 Thin prep Pap Comments: Source.............Cervical;EndocervicalNo. of containers..01 CYTYC Thin Prep VialPATIENT NOT FASTINGPERFORMED BY: [facility] [address] [id number] Information: [id number] ([id number]) Note: PAPSMR (Normal) Comments: The Pap smear [...] atrophy.V 72.31 ; Routine gynecological examinationRaxander Gonzalez Leather Roller (ASCP) 66-Yox-575318:00 TSH (03765) Comments: PATIENT NOT FASTINGPERFORMED BY: CB [facility] Dtsaej9072 [facility] [id number] TSH 3.440 {uIU/mL} (Normal) Range: 0.450-4.500 96-Thl-258560:00 CBC (Auto) (79758) Comments: PATIENT NOT FASTINGPERFORMED BY: [facility]6370 [facility] [id number] Information: [id number] Platelets 258 {x10E3/uL} (Normal) Range: 140-415 RDW 13.6 % (Normal) Range: 11.7-15.0 Hematocrit 43.5 % (Normal) Range: 34.0-44.0 MCH 31.6 pg (Normal) Range: 27.0-34.0 MCHC 33.6 g/dL (Normal) Range: 32.0-36.0 MCV 94 fL (Normal) Range: 80-98 Hemoglobin 14.6 g/dL (Normal) Range: 11.5-15.0 RBC 4.61 {x10E6/uL} (Normal) Range: 3.80-5.10 WBC 8.6 {x10E3/uL} (Normal) Range: 4.0-10.5 30-Dry-130378:00 Metabolic Panel, Basic Comments: PATIENT NOT FASTINGPERFORMED BY: [employer] [facility] SolutionsBeaumont Hospital6370 [facility] [id number] (06644) Calcium, Serum 9.1 mg/dL (Normal) Range: 8.6-10.2 [...] Glucose, Serum 111 mg/dL (Abnormal) Range: 65-99 25-Idg-103575:00 DRUG ASSAY-LITHIUM (06952) Comments: all these labs standing order prn; PATIENT NOT FASTINGPERFORMED BY: LabCoNew[facility] CenterXzwhrq6803 [facility] [id number] [place] (Eskalith), Serum 0.9 mmol/L (Normal) Range: 0.6-1.4 Comments: Detection Limit = 0.1<0.1 indicates None Detected 20-Hzo-89144:16 METABOLIC PANEL, COMPREHENSIVE Comments: PATIENT NOT FASTINGPERFORMED BY: [facility]CoNew[facility] CenterYvhtzz6217 [facility] [id number] ([id number]) A/G Ratio 1.3 (Normal) Range: 1.1-2.5 Alkaline [...] Glucose, Serum 207 mg/dL (Abnormal) Range: 65-99 51-Lla-58831:16 CBC WITH MANUAL DIFF Comments: PATIENT NOT FASTINGPERFORMED BY: [facility]CoNew[facility] CenterDjghhp0779 [facility] [id number] Information: [id number] (69453) Baso (Absolute) 0.1 {x10E3/uL} (Normal) Range: 0.0-0.2 [...] CREATININE RATIO Comments: PATIENT NOT FASTINGPERFORMED BY: [facility]6370 [facility] [id number] ([id number]) AND (83890) Microalb/Creat Ratio 6.2 {mg/g_creat} (Normal) Range: 0.0-30.0 Microalbumin, Urine 2.5 ug/mL (Normal) Range: 0.0-17.0 Creatinine, Urine 40.1 mg/dL (Normal) Range: 15.0-278.0 :38 HgA1C , Office (38443) HgA1C , Office 6.6 % (Normal) Range: 4.6 - 7.1 :38 Blood Glucose , Office (90982) Blood Glucose , Office 214 (Normal) 49-Hro-877093:05 URINE VERÓNICA CULTURE-IDENTIFICATN Comments: PATIENT NOT FASTINGPERFORMED BY: [facility]6370 [facility] [id number] Information: [id number] (15874) Antimicrobial MIHEAD (Normal) Comments: S = Susceptible; [...] mL (Normal) Urine Final report (Normal) Culture,Comprehensive 03-Oga-346530:23 CHEST, PA AND LATERAL (MT) Radiology Report See Note (Normal) Comments: Exam Number: [id number] CLINICAL:58-year-old female with cough, pain and shortness [...] otherwise unremarkable. Reported By: SISI MART Dr. 77-Zxi-17851:23 B.pertussisB.parapertussis PCR Comments: PERFORMED BY: [place] [address] [place] [address] [id number] Bordetella parapertussis DNA Negative (Normal) Comments: .This test was developed and its performance characteristics determinedby [employer]. It has not been cleared or approved by theU.S. Food and Drug Administration. The FDA has determined that s uchclearance or approval is not necessary. This test is used for clinicalpurposes. It should not be regarded as investigational or research. Bordetella pertussis DNA Negative (Normal) 39-Wst-218752:50 HgA1C , Office (47433) HgA1C , Office 5.5 % (Normal) Range: 4.6 - 7.1 :50 Blood Glucose , Office (89524) Blood Glucose , Office 90 (Normal) :33 HgA1C , Office (07602) HgA1C , Office 5.6 % (Normal) Range: 4.6 - 7.1 :41 HgA1C , Office (40563) HgA1C , Office 5.5 % (Normal) Range: 4.6 - 7.1 Comments: :41 Blood Glucose , Office (79404) Comments: 89 Blood Glucose , Office 89 [...] (Normal) Range: 0.34-4.82 :42 HgA1C , Office (66933) HgA1C , Office 5.4 % (Normal) Range: 4.6 - 7.1 :42 Blood Glucose , Office (56979) Blood Glucose , Office 103 (Normal) :20 CBC HCT 44.0 % (Normal) Range: 37-47 HGB 15.2 g/dL (Normal) Range: 12.0-16.0 MCH 31.7 pg (Normal) Range: 27.0-32.0 MCHC 34.6 g/dL (Normal) Range: 32-36 MCV 91.5 fL (Normal) Range: 81-99 PLT 306 K/mm3 (Normal) Range: 150-450 RBC 4.81 {M/mm3} (Normal) Range: 4.2-5.4 RDW 12.2 % (Normal) Range: 11.6-14.6 WBC 6.7 K/mm3 (Normal) Range: 4.4-11.0 80-Xqj-678120:20 COMP METABOLIC A/G 1.0 {RATIO} (Normal) Range: [...] T PROT 8.0 g/dL (Normal) Range: 6.4-8.2 01-Ezx-548618:20 LIPID CHOL 148 mg/dL (Normal) Comments: <200 [...] mg/dL VLDL 30 mg/dL (Normal) Range: 5-40 43-Nik-348529:20 ROUTINE UA BILIRUBIN URINE SeeNote (Normal) Comments: [...] 0.2 EU/dl (Normal) Range: 0.2 - 1.0 13-Vas-68990:06 THYROID (HP) Radiology Report See Note (Normal) Comments: Exam Number: [id number] THYROID ULTRASOUND HISTORYGoiter. There is borderline increase [...] 03, 2007. Reported By: PETRONA REGALADO M.D. 05-Fal-75958:20 MAMM, UILAT DIAG DIGITAL & CAD Radiology Report See Note (Normal) Comments: Exam Number: [id number] UNILATERAL LEFT DIAGNOSTIC MAMMOGRAPHY CLINICAL STATEMENTLeft breast [...] The mammogramswere also examined with computer-aided detection software([employer] Reported By: REID KRUEGER M.D. : TSH 0.94 {uIU/mL} Range: 0.34-4.82 50 (Normal) :06 MAMM, BILAT SCRN DIGITAL & CAD Radiology Report See Note (Normal) Comments: Exam Number: [id number] MAMMOGRAM, BILATERAL SCREENING DIGITAL AND CAD HISTORYRoutine [...] mammograms werealso examined with computer-aided detection software ([employer] Reported By: PETRONA REGALADO M.D. 9-Rfr-366500:05 THYROID () Radiology Report See Note (Normal) Comments: Exam Number: [id number] THYROID ULTRASOUND HISTORYGoiter. High resolution real time [...] 6 months. Reported By: PETRONA REGALADO M.D. 63-Shh-809313:22 HgA1C , Office (01591) HgA1C , Office 5.9 % (Normal) Range: 4.6 - 7.1 33-Xns-134627:22 Blood Glucose , Office (55520) Blood Glucose , Office 88 (Normal) Plan [...] II, controlled Stress incontinence, female : Reviewed Honing Machine Try Out Setter Letter Indication: Stress incontinence, female Diabetes mellitus [...] acute Planned Observations VITAMIN B12 AND FOLATES (80131)Indication: Neuropathic pain On: :08 Request Blood Glucose , Office (69438)Indication: Diabetes mellitus type II, controlled On: 33-Zsi-40501:04 Request LIPID PANEL (99473)Indication: Neuropathic pain On: 76-Azb-32833:54 Request Blood Glucose , Office (73457)Indication: Diabetes mellitus type II, controlled On: 02-Nov-20178:55 Request D-Dimer (71522)Indication: Shortness of breath On: 69-Vwl-705611:19 Request Metabolic Panel, Comprehensive (27012)Indication: Diabetes mellitus type II, controlled On: 12-Hnl-871405:19 Request Comments: Nov 2017 LIPID PANEL (03226)Indication: Diabetes mellitus type II, controlled On: 85-Mxs-527412:19 Request Comments: Nov 2017 URINALYSIS (52440)Indication: Diabetes mellitus type II, controlled On: 16-Srk-097677:19 Request Comments: Nov 2017 TSH (30373)Indication: Diabetes mellitus type II, controlled On: 88-Elk-152411:18 Request Comments: Nov 2017 CBC, Platelets & Auto Diff (70345)Indication: Diabetes mellitus type II, controlled On: 40-Sjf-289901:18 Request Comments: Nov 2017 MICROALBUMIN: CREATININE RATIO (09324) AND (84326)Indication: Diabetes mellitus type II, controlled On: 80-Cdp-612049:18 Request Comments: Nov 2017 HgA1C , Office (45123)Indication: Diabetes mellitus type II, controlled On: 29-Vvg-880457:44 Request Anaerobic & Aerobic Culture (53079)Indication: Mouth pain On: 0-Bja-449844:11 Request Metabolic Panel, Comprehensive (81402)Indication: Chronic kidney disease (CKD), stage I On: 97-Flr-923049:50 Request Comments: 2 weeks Metabolic Panel, Comprehensive (06008)Indication: Diabetes mellitus type II, controlled On: 13-Qfc-498541:56 Request Comments: today URINALYSIS (25448)Indication: Chronic kidney disease (CKD), stage I On: 32-Oxq-223337:52 Request Comments: Jul 2017 MICROALBUMIN: CREATININE RATIO (63184) AND (83642)Indication: Chronic kidney disease (CKD), stage I On: 14-Tta-309851:52 Request Comments: jul 2017 Lipid Panel (62311)Indication: Hypertension (Renamed from BP (high blood pressure)) On: 62-Ltc-209063:52 Request Comments: Jul 2017 TSH (63649)Indication: Leg weakness On: 21-Vkr-554490:52 Request Comments: Jul 2017 CBC, Platelets & Auto Diff (52918)Indication: Leg weakness On: 21-Wbl-252794:52 Request Comments: jul 2017 METABOLIC PANEL, COMPREHENSIVE (53745)Indication: Weakness On: 08-Jqa-042172:55 Request METABOLIC PANEL, COMPREHENSIVE (52931)Indication: Hypokalemia On: :43 Request Comments: STAT SED RATE ERYTHROCYTE (96028)Indication: Weakness On: 91-Vjh-099781:29 Request TSH (THYROID STIMULATING HORMONE) (66767)Indication: Unspecified abnormal involuntary movements On: 89-Isn-627135:17 Request METABOLIC PANEL, COMPREHENSIVE (40557)Indication: Unspecified abnormal involuntary movements On: :17 Request CBC, PLATELETS & AUT DIFF (06388)Indication: Unspecified abnormal involuntary movements On: 37-Nvk-973193:17 Request URINE VERÓNICA CULTURE-IDENTIFICATN (16340)Indication: Weakness On: 85-Muw-815969:07 Request Blood Glucose , Office (29434)Indication: Unspecified abnormal involuntary movements On: 59-Idv-49579:59 Request VITAMIN B12 AND FOLATES (02445)Indication: Unspecified abnormal involuntary movements On: :57 Request SPEP (29256)Indication: Elevated serum creatinine On: 14-Ftc-799385:31 Request CALCIFIDIOL (37316) VIT D 25Indication: Vitamin D deficiency (Renamed from Avitaminosis D) On: :27 Request TSH (08811)Indication: Hypothyroidism On: : Request MICROALBUMIN: CREATININE RATIO (30915) AND (86902)Indication: Diabetes mellitus type II, controlled On: : Request METABOLIC PANEL, COMPREHENSIVE (55726)Indication: Diabetes mellitus type II, controlled On: : Request LIPID PANEL (88200)Indication: Diabetes mellitus type II, controlled On: : Request CBC with auto diff (61303)Indication: Diabetes mellitus type II, controlled On: : Request CALCIFIDIOL (75332) VIT D 25Indication: Vitamin D deficiency (Renamed from Avitaminosis D) On: 78-Yia-188335:15 Request Comments: in three months (approximately) METABOLIC PANEL, COMPREHENSIVE (87296)Indication: Diabetes mellitus type II, controlled On: 97-Ngk-779076:15 Request Comments: in three months (approximately) SODIUM URINE (62966)Indication: Hyponatremia On: 0-Dgu-669946:51 Request OSMOLALITY URINE (37343)Indication: Hyponatremia On: 4-Vvn-617383:50 Request OSMOLALITY BLOOD (50429)Indication: Hyponatremia On: 1-Ekj-042168:50 Request ASSAY, TROPONIN, QUANTITATIVE (aka Troponin I) (58455)Indication: Chest pain On: 92-Jxw-204614:40 Request Comments: stat D-Dimer (33864)Indication: Chest pain On: 41-Ozg-049681:40 Request Comments: stat TSH (15239)Indication: Chest pain On: :40 Request CBC WITH MANUAL DIFF (86337)Indication: Chest pain On: 06-Fzy-500780:40 Request METABOLIC PANEL, COMPREHENSIVE (11372)Indication: Chest pain On: 03-Qtu-869143:40 Request URINE VERÓNICA CULTURE (SHARIFA COL COUNT) (50146)Indication: Dysuria (Renamed from Difficult or painful urination) On: 35-Iic-498588:24 Request Metabolic Panel, Comprehensive (43067)Indication: Hypertension (Renamed from BP (high blood pressure)) On: 70-Qti-509652:56 Request Metabolic Panel, Basic (24861)Indication: Elevated LFTs On: 59-Awo-185324:16 Request 24 hour urine for Protein (49498)Indication: Elevated serum creatinine On: 25-Rxb-639220:40 Request Comments: recheck in one week CREATININE CLEARANCE (25814)Indication: Elevated serum creatinine On: 65-Pme-901441:39 Request Comments: recheck in one week Blood Glucose , Office (07136)Indication: Diabetes mellitus type II, controlled On: 88-Fim-36731:29 Request METABOLIC PANEL, COMPREHENSIVE (15889)Indication: Hypokalemia (Renamed from Decreased potassium in the blood) On: 06-Mqw-971475:52 Request MICROALBUMIN: CREATININE RATIO (44886) AND (60074)Indication: Diabetes mellitus type II, controlled On: 74-Eal-028956:14 Request FLURESCNT ANTIB SCRN EA (97867) celiac profileIndication: Irritable bowel syndrome (Renamed from Functional bowel disease) On: 6-Fma-913982:58 Request IMMUNOASSAY, ANALYTE (NON-INFECT) (37435) celiac profileIndication: Irritable bowel syndrome (Renamed from Functional bowel disease) On: 1-Sut-416582:58 Request IGA/IGD/IGG/IGM-EACH (72028) celiac profileIndication: Irritable bowel syndrome (Renamed from Functional bowel disease) On: 8-Ngm-381248:58 Request Potassium Serum (31791)Indication: Hypokalemia (Renamed from Decreased potassium in the blood) On: 7-Ojw-783812:58 Request Celiac Disease Comphrehensive Profile (15391)Indication: Irritable bowel syndrome (Renamed from Functional bowel disease) On: 04-Nov-20129:56 Request METABOLIC PANEL, COMPREHENSIVE (83585)Indication: Diabetes mellitus type II, controlled On: 79-Dza-384647:32 Request LIPID PANEL (94309)Indication: Diabetes mellitus type II, controlled On: 03-Pze-733709:32 Request CBC WITH MANUAL DIFF (32148)Indication: Diabetes mellitus type II, controlled On: 96-Seu-821550:32 Request MICROALBUMIN: CREATININE RATIO (48109) AND (54252)Indication: Diabetes mellitus type II, controlled On: :32 Request TSH (65967)Indication: Hypothyroidism On: :32 Request TSH (17451)Indication: Hypothyroidism On: : Request MICROALBUMIN: CREATININE RATIO (83253) AND (74299)Indication: Diabetes mellitus type II, controlled On: : Request METABOLIC PANEL, COMPREHENSIVE (17029)Indication: Diabetes mellitus type II, controlled On: : Request LIPID PANEL (11440)Indication: Diabetes mellitus type II, controlled On: : Request CBC WITH MANUAL DIFF (14039)Indication: Diabetes mellitus type II, controlled On: : Request URINE VERÓNICA CULTURE-SHARIFA COL COUNT (02431)Indication: Dysuria (Renamed from Difficult or painful urination) On: 96-Nok-563252:15 Request URINE VERÓNICA CULTURE-SHARIFA COL COUNT (45127)Indication: Dysuria (Renamed from Difficult or painful urination) On: 97-Oec-553576:55 Request Ferritin (53592)Indication: Elevated LFTs On: 44-Mtn-509799:50 Request Comments: repeat now per Dr. Cabral with iron level Iron Binding Capacity (TIBC) (51511)Indication: Elevated LFTs On: 44-Obq-260870:50 Request Iron (87575)Indication: Elevated LFTs On: 33-Xbq-131143:49 Request CBC (Auto) (54596)Indication: Thrombocytopenia, unspecified On: 87-Nxe-109911: Request Comments: nonclumping tube HEPATITIS PANEL (76586)Indication: Elevated LFTs On: : Request FERRITIN (84093)Indication: Elevated LFTs On: 44-Cdn-277228:00 Request CERULOPLASMIN (20727)Indication: Elevated LFTs On: 38-Wgb-971277:00 Request ASM (ANTI SMOOTH MUSCLE ANTIBODY) (02312)Indication: Elevated LFTs On: 87-Gwt-518465:00 Request GAYATRI (ANTINUCLEAR ANTIBODY) (06091)Indication: Elevated LFTs On: 06-Vum-131631:00 Request HEPATITIS PANEL (29163)Indication: Elevated LFTs On: 53-Hft-43900:01 Request TSH (59036)Indication: Hypothyroidism On: 91-Cxt-053699:16 Request LIPID PANEL (94199)Indication: Diabetes mellitus type II, controlled On: 49-Mud-009184:15 Request DRUG ASSAY-LITHIUM (40198)Indication: Bipolar affective disorder, mixed On: 98-Eqi-804134:14 Request Metabolic Panel, Basic (93995)Indication: Bipolar affective disorder, mixed On: 10-Yai-834423:13 Request Metabolic Panel, Basic (87735)Indication: Bipolar affective disorder, mixed On: 86-Kvo-030567:22 Request DRUG ASSAY-LITHIUM (09127)Indication: Bipolar affective disorder, mixed On: 71-Yqj-961480:22 Request Comments: 2 months Urinalysis, Office (73461)Indication: Urinary frequency On: 70-Tvt-990674:27 Request Comments: done pms HEPATIC FUNCTION PANEL (14328)Indication: Other and unspecified hyperlipidemia On: 0-Ugx-432377:45 Request Lipid Panel (12175)Indication: Other and unspecified hyperlipidemia On: 7-Hdh-568264:45 Request Lipid Panel (81127)Indication: Other and unspecified hyperlipidemia On: 01-Nfc-653112:17 Request CBC, Platelets & Auto Diff (61691)Indication: Other and unspecified hyperlipidemia On: 08-Qqu-116760:17 Request Metabolic Panel, Comprehensive (04156)Indication: Other and unspecified hyperlipidemia On: 41-Xvf-033260:17 Request TSH (97332)Indication: Hypothyroidism On: 37-Kom-977210:15 Request Metabolic Panel, Basic (52027)Indication: Other and unspecified hyperlipidemia On: :55 Request Lipid Panel (59540)Indication: Other and unspecified hyperlipidemia On: :55 Request Comments: in three months (approximately) CBC (Auto) (92827)Indication: Intestinal disaccharidase deficiencies and disaccharide malabsorption On: :56 Request Metabolic Panel, Comprehensive (83188)Indication: Intestinal disaccharidase deficiencies and disaccharide malabsorption On: :56 Request Lipid Panel (71070)Indication: Intestinal disaccharidase deficiencies and disaccharide malabsorption On: 81-Auh-51438:56 Request Comments: in three months (approximately) MICROALBUMIN 24 HOUR OR RANDOM On: 66-Wwu-850606:04 Request (12299) CREATININE CLEARANCE (63713) On: 30-Tzr-620501:03 Request CBC (Auto) (90555)Indication: Unspecified disorder of kidney and ureter On: :53 Request Lipid Panel (41089)Indication: Unspecified disorder of kidney and ureter On: :53 Request Metabolic Panel, Comprehensive (49730)Indication: Unspecified disorder of kidney and ureter On: :53 Request TSH (92488)Indication: Hypothyroidism On: :53 Request TSH (93947)Indication: Hypothyroidism On: 32-Avt-328325:18 Request URINALYSIS (83057)Indication: Intestinal disaccharidase deficiencies and disaccharide malabsorption On: 94-Ufn-654168:43 Request CBC (Auto) (12075)Indication: Intestinal disaccharidase deficiencies and disaccharide malabsorption On: 87-Vai-223172:43 Request Lipid Panel (32459)Indication: Intestinal disaccharidase deficiencies and disaccharide malabsorption On: 61-Bda-159618:43 Request Metabolic Panel, Comprehensive (96127)Indication: Intestinal disaccharidase deficiencies and disaccharide malabsorption On: 86-Bax-266917:43 Request Planned Procedures COMPUTED TOMOGRAPHY ANGIOGRAPHY OF On: 01-Aug-2018 Intent CHEST FOR PULMONARY EMBOLISM Comments: stat for PE (31551)By: Eli Bowman CNP, CNP, Mary E Echo CompleteBy: Eli Bowman CNP On: 29-Jul-2018 Intent Eli Bowman CNP Spirometry (18660)By: Colby WATTERS On: 29-Jul-2018 Intent Eli Mcelroy CNP Holter Monitor 24 hrsBy: Colby WATTERS, On: 29-Jul-2018 Intent Eli Mcelroy CNP CHEST XRAY, PA & LATERAL (09398)By: On: 29-Jul-2018 Intent Eli Bowman CNP, CNP, Mary E ELECTROCARDIOGRAM, COMPLETE (ECG) On: 29-Jul-2018 Intent (01009)By: Colby WATTERS Eli Bowman Comments: sinus rhythm Eli WATTERS Aerosol Treatment (91206)By: Colby On: 29-Jul-2018 Intent Eli WATTERS CNP, Mary E Flu Vaccine (Quadrivalent) 81683Us: On: 22-Jul-2018 Intent Tejal Ceron Comments: Lot #[id number]-L dltd, IMDose prefilled syringegiven by: Rosalie Ceron MA Toradol Injection, 30 mg (J1885)By: On: 09-May-2018 Intent Nunu Root Comments: lot [id number] 12/2029mgIMleft gmas, ANGLE BENDER SCREENING DIGITAL TOMOSYNTHESIS OF On: 18-Apr-2018 Intent BREAST (47420)By: Colby WATTERS Eli Mcelroy CNP DEXA SCAN AXIAL SKELETON (36782)By: On: 18-Apr-2018 Intent Colby WATTERSEli CNP, Mary E Toradol Injection, 30 mg (J1885)By: On: 22-Mar-2018 Intent Nunu Root Comments: toradol 30mg injection lot:62-950-KTffo:10/2019R GMpt tolerated wellMSMITH,ANGLE BENDER COMPLETE ELECTROMYOGRAPHY (EMG) WITH On: 22-Mar-2018 Intent NERVE CONDUCTION STUDIES OF EACH Comments: Bilateral lower legs EXTREMITY (74192)By: Nunu Root EMGBy: José Miguelsilvano Eli WATTERS CNP, On: 03-Jan-2018 Intent Eli Lubin Comments: both legs Nerve ConductionBy: Lisajanna Eli WATTERS On: 03-Jan-2018 Intent Eli Hurtado CNP Comments: both legs Toradol Injection, 30 mg (J1885)By: On: 23-Dec-2017 Intent Mayda Dobbins DO Comments: toradol 30mg injectionlot: 23-454-MXnsd: 06/2018L GMpt tolerated wellAD ANGLE BENDER Spirometry (62399)By: Dk, On: 16-Nov-2017 Intent Nunu Comments: Normal spirometry Aerosol Treatment (01805)By: Shilpi On: 30-Aug-2017 Mayda Bailey DO Comments: less noise with forced exp Solu- Medrol Injection, 125mg On: 30-Aug-2017 Intent (J2930)By: Mayda Dobbins DO Comments: solumedrol 125mg injectionlot: [id number]: GMpt tolerated wellAD ANGLE BENDER Radiology - Chest- PA and LatBy: On: 30-Aug-2017 Intent Mayda Dobbins DO Solu- Medrol Injection, 125mg On: 26-Aug-2017 Intent ([id number])By: Mayda Dobbins DO Comments: solumedrol 125mg injectionlot: [id number]: 12/2019L GMpt tolerated wellAD ANGLE BENDER Aerosol Treatment ([id number])By: Shilpi On: 26-Aug-2017 Intent Mayda COLEMAN Comments: [place]anta a/e Spirometry ([id number])By: Shilpi COLEMAN, On: 26-Aug-2017 Intent Mayda Comments: mild obstruction Radiology - Shoulder - RightBy: On: 20-Jul-2017 Intent Edita Cabral MD Radiology - Lumbar SpineBy: Misha On: 20-Jul-2017 Intent Edita PROCTOR DRAIN/INJECT MAJOR JOINT OR BURSA On: 13-Apr-2017 Intent ([id number])By: Eli Bowman CNP Comments: injevted left knee today Eli WATTERS PHYSICAL THERAPY ([id number])By: Dk On: 08-Apr-2017 Intent N[facility]u Radiology - Knee - RightBy: Dk On: 08-Apr-2017 Intent [facility] Radiology - Knee - LeftBy: Dk, On: 08-Apr-2017 Intent Nunu ATTENDED SLEEP STUDY ([id number])By: On: 18-Jan-2017 Intent Eli Bowman CNP, CNP, Mary E DEXA SCAN AXIAL SKELETON ([id number])By: On: 24-Nov-2016 Intent Donnie Gonzales MD MAMMOGRAM, SCREENING, BOTH BREAST On: 24-Nov-2016 Intent ([id number])By: Donnie Gonzales MD US KIDNEY COMPLETE ([id number])By: Janet On: 16-Jul-2016 Intent Donnie PROCTOR EsophagramBy: Edita Cabral MD On: 06-Feb-2016 Intent Comments: 12mm tablet X-RAY EXAM OF ESOPHAGUS ([id number]) - On: 04-Feb-2016 Intent Barium Swallow with 12mm tabletBy: Donnie Gonzales MD Carotid DopplerBy: Edita Cabral MD On: 16-Sep-2015 Intent M TD VACCINE ADULT ([id number])By: Misha On: 16-Sep-2015 Intent Edita PROCTOR TDAP VACCINE >7 IM ([id number])By: On: 16-Sep-2015 Intent Edita Cabral MD Pap Smear, Medicare ([id number])By: On: 16-Sep-2015 Intent Edita Cabral MD MAMMOGRAM, SCREENING, BOTH BREAST On: 16-Sep-2015 Intent ([id number])By: Edita Cabral MD Renal Artery DopplerBy: Misha PROCTOR, On: 04-Feb-2015 Intent Edita Clinton Ultrasound - RenalBy: Misha PROCTOR, On: 04-Feb-2015 Intent Edita Clinton DEXA SCAN AXIAL SKELETON ([id number])By: On: 17-Jan-2015 Intent Edita Cabral MD Comments: postmenapausal MAMMOGRAM, SCREENING, BOTH BREAST On: 17-Jan-2015 Intent ([id number])By: Edita Cabral MD Radiology - Shoulder - [...] with back pain- stat call results Spirometry ([id number])By: Thee COLEMAN, On: 30-Apr-2014 Intent Erna Schaefer Comments: good effort and curve normal ELECTROCARDIOGRAM, COMPLETE (ECG) On: 30-Apr-2014 Intent ([id number])By: Erna Kingston DO Eprescribed prescriptions ([id number])By: On: 12-Feb-2014 Intent Edita Cabral MD SPECIMEN HANDLING/TRANSPORT On: 15-Jan-2014 Intent ([id number])By: Eli Bowman CNP, CNP, Mary E Eprescribed prescriptions ([id number])By: On: 11-Oct-2013 Intent Nunu Stephens LPN ADMINISTRATION OF INFLUENZA VIRUS On: 24-Jul-2013 Intent VACCINE ([id number])By: Edita Cabral MD FLU VAC, SPLIT, >3 YEARS, INTRAMUSC On: 24-Jul-2013 Intent ([id number])By: Edita Cabral MD Echo CompleteBy: Edita Cabrla MD On: 27-Jun-2013 Intent Carotid DopplerBy: Edita Cabral MD On: 27-Jun-2013 Intent M Eprescribed prescriptions ([id number])By: On: 27-Jun-2013 Intent Teressa Molina LPN L MRI - BrainBy: Eli Bowman CNP On: 16-Jun-2013 Intent Eli Bowman CNP SPECIMEN HANDLING/TRANSPORT On: 16-May-2013 Intent ([id number])By: Sue Ewing LPN Holter Monitor 24 hrsBy: Colby WATTERS, On: 28-Apr-2013 Intent Eli Mcelroy CNP ELECTROCARDIOGRAM, COMPLETE (ECG) On: 28-Apr-2013 Intent ([id number])By: Eli Bowman CNP Comments: sinus bradycardia Eli WATTERS Bio Z ([id number])By: Eli Bowman CNP On: 28-Apr-2013 Intent Eli Bowman CNP EKG ([id number])By: Edita Cabral MD On: 28-Mar-2013 Intent Comments: see scanned document of test done to see results reviewed today with patient Eprescribed prescriptions ([id number])By: On: 28-Mar-2013 Intent Jason Molina LPNn L Eprescribed prescriptions ([id number])By: On: 08-Dec-2012 Intent Nunu Stephens LPN Spirometry ([id number])By: Shilpi COLEMAN, On: 25-Nov-2012 Intent Mayda Comments: Computer not running so not able to perform test Aerosol Treatment ([id number])By: Shilpi On: 25-Nov-2012 Intent Mayda COLEMAN Spirometry ([id number])By: Thee COLEMAN, On: 21-Nov-2012 Intent Erna A Comments: good effort and curve normal Radiology - Chest- PA and LatBy: On: 21-Nov-2012 Intent Thee COLEMAN Erna A Eprescribed prescriptions ([id number])By: On: 21-Nov-2012 Intent Makayla Dillard LPN ADMINISTRATION OF PNEUMOCOCCAL On: 31-Oct-2012 Intent VACCINE (G0009)By: Edita Cabral MD Comments: Lot #[id number]/19/14Site-right deltoidDose0.5mlgiven by: [facility] per fax. M PNEUM VAC ADLT/IMUMNOSPR, SBC/INTRM On: 31-Oct-2012 Intent ([id number])By: Jodi Carvalho LPN Eprescribed prescriptions ([id number])By: On: 18-Oct-2012 Intent Teressa Molina LPN FLU VAC, SPLIT, >3 YEARS, INTRAMUSC On: 01-Jul-2012 Intent ([id number])By: Eli Bowman CNP Comments: Lot:[id number]:6.13Amt:prefilled syringeSite: L Dltd, IMGiven by: MRAISA Torres CNP, Mary E ADMINISTRATION OF INFLUENZA VIRUS On: 01-Jul-2012 Intent VACCINE (G0008)By: Eli Bowman CNP, CNP, Mary E SPECIMEN HANDLING/TRANSPORT On: 01-Jul-2012 Intent ([id number])By: Sue Ewing LPN Solu -Medrol Injection, 125 mg On: 23-Nov-2011 Intent ([id number])By: Edita Cabral MD Comments: Lot [id number]-R hip, IMDose 125mggiven by:Teressa Radiology - ChestBy: Misha PROCTOR, On: 23-Nov-2011 Intent Edita Clinton Comments: wet read Pulse Oximetry ([id number])By: Benoit On: 23-Nov-2011 Intent AKBAR Aerosol Treatment ([id number])By: Colby On: 16-Nov-2011 Intent Eli WATTERS CNP, Mary E Pulse Oximetry (52605)By: Vin On: 16-Nov-2011 Intent Lynn Comments: 93 FLU VAC, SPLIT, >3 YEARS, INTRAMUSC On: 16-Nov-2011 Intent ([id number])By: Lynn Banuelos Comments: received at work SPECIMEN HANDLING/TRANSPORT On: 14-Sep-2011 Intent ([id number])By: Edita Cabral MD SPECIMEN HANDLING/TRANSPORT On: 26-Aug-2011 Intent ([id number])By: Sue Ewing LPN Ultrasound - LiverBy: Misha PROCTOR, On: 11-Jun-2011 Intent Edita Clinton EKG ([id number])By: Edita Cabral MD On: 16-Feb-2011 Intent MAMMOGRAM, SCREENING, BOTH BREASTS On: 13-Mar-2010 Intent ([id number])By: Edita Cabral MD MAMMOGRAM, SCREENING, BOTH BREASTS On: 06-Mar-2010 Intent ([id number])By: Edita Cabral MD MAMMOGRAM, SCREENING, BOTH BREASTS On: 13-Feb-2010 Intent ([id number])By: Edita Cabral MD Spirometry (31270)By: Misha PROCTOR, On: 01-Oct-2009 Intent Edita Clinton ELECTROCARDIOGRAM, COMPLETE (ECG) On: 01-Oct-2009 Intent ([id number])By: Edita Cabral MD Pulse Oximetry ([id number])By: Benoit On: 01-Oct-2009 Intent AKBAR Spirometry (58085)By: Thee COLEMAN, On: 30-Jul-2009 Intent Erna Schaefer Comments: good effort and curve normal Radiology - Chest- PA and LatBy: On: 30-Jul-2009 Intent Erna Kingston DO Pulse Oximetry ([id number])By: Vin, On: 30-Jul-2009 Intent Lynn Comments: 94%repeat 97-98 EKG (03050)By: Erna Kingston DO On: 14-Jul-2009 Intent Comments: ekg showed normal sinus rhythym, normal axis, no acute st/t wave changes old t wave inversion noted on previous ekg Pulse Oximetry (28329)By: Vin, On: 11-Jul-2009 Intent Lynn Comments: 97% Solu -Medrol Injection, 125 mg On: 09-Jul-2009 Intent ([id number])By: Erna Kingston DO Comments: Lot #:[id number] date:mount given:125mgRoute:IM Site given:left buttockGiven by: MARIA DOLORES Cordon Aerosol Treatment ([id number])By: Thee On: 09-Jul-2009 Erna Bailey DO Pulse Oximetry ([id number])By: Thee COLEMAN, On: 09-Jul-2009 Intent Erna A Comments: repeat after treatment was 96 Pulse Oximetry (29248)By: Vin, On: 09-Jul-2009 Intent Lynn Comments: 93% Spirometry (85752)By: Gildardo SOUSA, On: 25-Jan-2009 Intent Sue MAMMOGRAM, SCREENING, BOTH BREASTS On: 29-May-2008 Intent ([id number])By: Edita Cabral MD EKG (11039)By: Edita Cabral MD On: 29-May-2008 Intent Spirometry ([id number])By: Misha PROCTOR, On: 27-Dec-2007 Intent Edita Clinton Ultrasound - ThyroidBy: Misha PROCTOR, On: 22-Mar-2007 Intent Edita Clinton MAMMOGRAM, SCREENING, BOTH BREASTS On: 22-Mar-2007 Intent ([id number])By: Edita Cabral MD MAMMOGRAM, SCREENING, BOTH BREASTS On: 22-Mar-2007 Intent ([id number])By: Edita Cabral MD ELECTROCARDIOGRAM, COMPLETE (ECG) On: 22-Mar-2007 Intent (82165)By: Edita Cabral MD Planned Medications INJECTION, KETOROLAC [...] disease, bilateral : DISCONTINUED - POTASSIUM SERUM (38125) Indication: Active Meniere's disease, bilateral Elevated LFTs : DISCONTINUED - HEPATIC FUNCTION PANEL (11088) Indication: Elevated LFTs Diabetes mellitus type II, controlled : Patient Instructions Indication: Diabetes mellitus type II, controlled Cough : Patient Instructions Indication: Cough Pharyngitis, acute : Patient Instructions Indication: Pharyngitis, acute Asthma in adult : Patient Instructions Indication: Asthma in adult Active Meniere's disease, bilateral : Patient Instructions Indication: Active Meniere's disease, bilateral Encounters Annotation/Addendum On: 16-Sep-2018 13:31 Encounter Diagnosis: Unspecified [...] breath, Bronchitis [facility] Annotation/Addendum On: 2-Derek-2018 14:22 [facility] End: 02-Nov-2017 14:25 [...] reveiwing printed for pt to take to [facility] , [ADDITIONAL REASON] Weight Gain [...] in ER on 12-29 after eating at [employer] and choking on a piece of potatoe had th End: 04-Jan-2017 11:17 amee hilario then went to urgent care, told to go to ER at [facility] diagnosed with Esophagitis was given [...] occurred following a specific injury (lifting at [employer] for years but no fall). The injury [...] surgeon for the procedure will be [facility] (Dr Alexa Swanson).Encounter Diagnosis: End: 16-Jul-2016 18:45 [...] bathroom. The [facility] prevent[facility] measures: PAP smear (needs updated ), mammography (needs updated ) and colonoscopy (needs updated however patient refuse to have done bc she was hospitalized with the last one with infection for 5 days ). 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 The patient has noticed [...] for Tdap vaccination (Renamed from Need for ocziirgkme-drqtgfk-cgfyoremf (Tdap) vaccine, adult/adolescent), Goiter (Renamed from [place] [...] (240.9), Hypothyroidism(244.9) [facility] Payers MedicarePhys[facility] [place] [employer] Lilly Toro; a guarantor
--- OUTSIDE RECORDS SUMMARY | 2018-11-25 15:03 | XMS RPT_ITS | Continuity of Care Document ---
:1950 Author Organization [facility] Address [address] [place] [address] Phone Care Team Providers Name Role Phone Colby JANENEEli E Unavailable Mina Baer MD Unavailable Nhung Duval Unavailable [facility], [facility] Unavailable Kasi Scott Unavailable Mariia Zhang Unavailable Dr. Junior Pena Unavailable Navdeep Fox Unavailable Elie Russo Unavailable Tanphaichitr - Bauer, Aaron Unavailable Be Middleton Unavailable MD Tyrone, Génesis Unavailable Damion Alas Unavailable Sisi Perez Unavailable MERRY Stephens Unavailable Unavailable Paul Weathers Unavailable Unavailable Caitlin Dleaney Unavailable Unavailable Mayda Dobbins DO Unavailable Esme [...] with bottles, extensive review with nurse and [facility], med list updated Status: Active Postmenopausal (Renamed from Postmenopausal status) (Z78.0, V49.81) Status: Active Pregnancies () Comments: 2 Status: Active S/P hysterectomy (Z90.710, V88.01) Comments: for endometrial hyperplasia 2015 Status: Active Shortness of breath (R06.02, 786.05) Status: Active Sleep apnea (G47.30, 780.57) Comments: needs repeat sleep study at [facility] per [facility] to get back on cpap [...] Caitlin Delaney Start : 29-Jul-2018 Active Ergocalciferol 96618 UNIT Oral Capsule 1 Capsule twice weekly [...] tablet daily (15 MG) Active Comments:Catrachito Pen Katy /16 31G X 5 MM Miscellaneous 1 (one) Misc Misc qd with Victoza for 0 days Quantity: 1 {Box} Refills: 3 Ordered:03-Feb-2018 Edita Cabral MD Start : 19-Jan-2018 Active ProAir HFA 108 (90 Base) MCG/ACT Inhalation Aerosol Solution 1-2 puffs Aerosol Soln every four hours, as needed for 30 days Quantity: 1 {Box} Refills: 3 Ordered:29-Jul-2018 Lisamitchsivlano WATTERS, Eli Mejiasilavno WATTERS, Eli Lubin Start : 29-Jul-2018 Active [...] 28 {Tablet} Refills: 0 Ordered:06-Jan-2016 José Miguel STICK ROLLER, [facility], Eli Lubin Start : 06-Jan-2016 End : 20-Jan-2016 Inactive AZITHROMYCIN, 250MG (Oral Tablet) 2 (two) Tablet today then 1 qd for 4 days for 0 days Quantity: 6 {Tablet} Refills: 0 Ordered:08-Dec-2012 Nunu Stephens LPN Start : 21-Nov-2012 End : 08-Dec-2012 Inactive BACTRIM DS, 800-160MG (Oral Tablet) 1 Tablet bid for 7 days Quantity: 14 {Tablet} Refills: 0 Ordered:16-May-2013 José Miguel STICK ROLLER, Eil [facility], Elif Start : 16-May-2013 End : 23-May-2013 Inactive Cheratussin AC 100-10 MG/5ML Oral Syrup 1 Teaspoon(s) qhs prn cough for 0 days Quantity: 8 {Fluid_Ounce} Refills: 0 Ordered:16-Jun-2016 Priya Gillette Start : 12-Mar-2016 End : 16-Jun-2016 Inactive Comments:eight CIPRO, 500MG (Oral Tablet) 1 Tablet bid for 7 days Quantity: 14 {Tablet} Refills: 0 Ordered:15-Jan-2014 [facility], [facility], Elif Start : 15-Jan-2014 End [...] : 07-Nov-2012 End : 12-Feb-2014 Inactive Drisdol 37746 UNIT Oral Capsule 1 (one) Capsule once [...] Quantity: 90 {Tablet} Refills: 0 Ordered:23-Apr-2017 Ciesa STICK ROLLER, Eli ECjeannea JANENE, Elif Start : 23-Apr-2017 [...] : 29-Jul-2010 End : 30-Sep-2010 Inactive Nystatin 713665 UNIT/ML Mouth/Throat Suspension 4-6 Milliliter swish and [...] : 12-Dec-2015 End : 16-Jun-2016 Inactive Comments:per f [facility] Topamax 100 MG Oral Tablet [...] 03-Jan-2018 Inactive Comments:1 rambo as directed ZOSTAVAX, 08261MLM/0.65ML (Subcutaneous Solution Reconstituted) 1 For Solution once [...] Start : 04-Jan-2017 End : 04-Jan-2017 Discontinued Comments:f [facility] FLEXERIL, 10MG (Oral Tablet) 1 [...] : 13-Nov-2013 End : 13-Nov-2013 Discontinued Comments:ID [id number] Medrol 4 MG Oral Tablet Therapy Pack [...] Refills: 1 Ordered:04-Jan-2017 Eli Bowman CNP, CNP, Mary E [...] 18-Jan-2017 End : 27-Jul-2017 Discontinued Vitamin D3 05775 UNIT Oral Tablet 1 (one) Tablet Tablet once a week for 60 days Quantity: 8 {Tablet} Refills: 0 Ordered:04-Jan-2017 Slarb MASCARA MOLDER, Naomi Start : 24-Nov-2016 End : 04-Jan-2017 [...] for Tdap vaccination (Renamed from Need for dqcwdyhyde-lkniron-idhepumle (Tdap) vaccine, adult/adolescent) (Z23, V06.1) Status: Inactive [...] of wound infection, PE.Not malnourishedLabs:CBCCMPPT/INRtype and screen gel(57202)EK06/10/16: no acute changesHas good social support and [...] under good control Patient to use Mucinex vlmz-xbf-xauswzu which helped her. Status: Inactive as of [...] Completed Comments: 2000 Tubal ligation 1963 Completed [facility] Left endolymphatic sac Completed decompression with shunt and middle ear infusion with decadron 03/05 Date Value Details 01-Aug-2018 CTA Chest W/WO Contrast Result: Comments: See Note; NOTES: [facility] Imaging Services [address] [place] [address] CTA Chest W/WO Contrast MR#: [id number] Acct: [id number] Name: ELIZABETH TORO Rep #: [id number] : 1950 F 67 From: Hardeep Calix MD PCP: Eli Bowman NP Status: REG CLI Study: CTA Chest W/WO Contrast Date of Exam: 08/01/18 Exam# [id number] Ordering Dr: Eli Bowman STUDY: CTA CHEST/T [...] Service support , CC: Eli Bowman NP Hogshead Wrecker: Signed 29-Jul-2018 Chest PA and Lateral Result: Comments: See Note; NOTES: [facility] Imaging Services [address] [place] [address] Chest PA and Lateral MR#: [id number] Acct: [id number] Name: ELIZABETH TORO Rep #: [id number] : 1950 F 67 From: Cami Klein MD PCP: Eli Bowman NP Status: REG CLI Study: Chest PA and Lateral Date of Exam: 07/29/18 Exam# [id number] Ordering Dr: Eli Bowman STUDY: X-RAY CHEST [...] Service support , CC: Eli Bowman NP Hogshead Wrecker: Signed 21-Apr-2018 Downtime Report Result: Comments: See Note; NOTES: [facility] Medical Records Department [address] [place] [address] Downtime Report MR#: [id number] Acct: [id number] Name: ELIZABETH TORO Rep #: : 1950 67 From: Alon Klein PCP: Eli Bowman NP Status: REG RCR This patient was seen during an EMR downtime April 04, 2018 - April 11, 2018. This patient may have a combination of p aper and electronic documentation or all paper documentation. All documentation is viewable within the e-chart portion of [employer] for each patient visit. 12-Apr-2018 NCS and/or EMG Patient Result: Comments: See Note; NOTES: [facility] Pulmonary Services/Neurology [address] [place] [address] MR#: [id number] Acct: [id number] Name: ELIZABETH TORO Rep #: [id number] : 1950 67 From: Kal Hernandez MD Referring Dr: Eli Bowman NP Status: REG CLI Ordering Dr: Date: Location: [facility] Sex: F C NCS and/or EMG [...] ____ Kal Hernandez MD CC: Eli Bowman ORNAMENT STAPLER; Kal Hernandez MD Date Dictated: 04/12/18949 Date Transcribed: 04/12/18949 Hogshead Wrecker: NF Signed 01-Feb-2018 PT D/C Summary (1) Result: Comments: See Note; NOTES: [facility] Physical Therapy [facility] [address] [place] [address]. [address] [place] [address] Fax REHABILITATION SERVICES DISCHAR SUMMARY MR#: [id number] Acct: [id number] Name: ELIZABETH TORO Rep #: [id number] : 1950 67 From: Cristopher Francis PT, ATC Referring DrJose: Mayda Dobbins DO Status: REG RCR Insurance: [facility] [employer]ICIAN [employer] CO [...] please feel free to call me at [phone]. Thank you for the referral of this patient. Sincerely, Cristopher Francis, PT, <Electronically signed by Andrea Francis PT, ATC> 02/01/18 0823 CC: Eli Bowman ORNAMENT STAPLER; Mayda Dobbins DO [facility] Signed 30-Dec-2017 Inital Evaluation (1) - PT Result: Comments: See Note; NOTES: [facility] Physical Therapy [facility] [address] [place] [address]. [address] [place] [address] Fax REHABILITATION SERVICES INITIAL EVALUATION MR#: [id number] Acct: [id number] Name: ELIZABETH TORO Rep #: [id number] : 1950 67 From: Cristopher Francis PT, [...] to be FAXED BACK to us at [phone] for Medicare purposes. Please let me know if there are questions or concerns regarding this plan of care. Physician Signature: Date: <Electronically signed by Crsitopher Francis PT, ATC> 12/30/17 1056 CC: Eli Bowman NP; Mayda Dobbins DO DT: 0 12/30/17 [facility] Signed For Medicare only, by signing this I certify the plan of care. Physicians Signature Date 08-Oct-2017 Operative Report Result: Comments: See Note; NOTES: [facility] Medical Records Department [address] [place] [address] Operative Report 10/08/172017 MR#: [id number] Acct: [id number] Name: XAVIER TORO LEILANI Schaefer Rep #: [id number] : 1950 67 From: Oscar Winston MD PCP: Eli Bowman NP Status: REG [facility] Y Location: [place] [address] Problem List (1) Intrinsic (urethral) sphincter deficiency [...] Discharge Instruction Result: Comments: See Note; NOTES: [facility] Medical Records Department [address] [place] [address] Instructions for Home/Discharge Instructions 10/08/171950 MR#: [id number] Acct: [id number] Name: ELIZABETH TORO Rep #: [id number] : 1950 67 From: Oscar Winston MD PCP: Eli Bowman NP Status: REG MIC Discharge Diet: Light diet - advance as [...] and Lateral Result: Comments: See Note; NOTES: [facility] Imaging Services [address] [place] [address] Chest PA and Lateral MR#: [id number] Acct: [id number] Name: ELIZABETH TORO Rep #: [id number] : 1950 F 67 From: Yury Arthur MD PCP: Eli Bowman Status: REG CLI Study: Chest PA and Lateral Date of Exam: 08/30/17 Exam# [id number] Ordering Dr: Mayda Dobbins DO STUDY: X-RAY [...] , CC: Eli Bowman; Mayda Dobbins DO Hogshead Wrecker: Signed 20-Jul-2017 L/S Spine Min 4 Views Result: Comments: See Note; NOTES: [facility] Imaging Services [address] [place] [address] L/S Spine Min 4 Views MR#: [id number] Acct: [id number] Name: ELIZABETH TORO Rep #: [id number] : 1950 F 66 From: Dionte Lujan DO PCP: Eli Bowman Status: REG CLI Study: L/S Spine Min 4 Views Date of Exam: 07/20/17 Exam# [id number] Ordering Dr: Edita Cabral MD STUDY: X-RAY [...] Fax CC: Eli Bowman; Edita Cabral MD Hogshead Wrecker: Signed 20-Jul-2017 Shoulder min 2 Views Result: Comments: See Note; NOTES: [facility] Imaging Services [address] [place] [address] Shoulder min 2 Views MR#: [id number] Acct: [id number] Name: ELIZABETH TORO Rep #: [id number] : 1950 F 66 From: Dionte Lujan DO PCP: Eli Bowman Status: REG CLI Study: Shoulder min 2 Views Date of Exam: 07/20/17 Exam# [id number] Ordering Dr: Edita Cabral MD STUDY: X-RAY - RIGHT [facility] REASON FOR EXAM: Female, 66 years [...] , CC: Eli Bowman; Edita Cabral MD Hogshead Wrecker: Signed 11-May-2017 PT D/C Summary (1) Result: Comments: See Note; NOTES: [facility] Physical Therapy [facility] [address] [place] [address] Fax REHABILITATION SERVICES DISCHAR GE SUMMARY MR#: [id number] Acct: [id number] Name: ELIZABETH TORO Rep #: [id number] : 1950 66 From: Naomi Osorio MPT [...] please feel free to call me at [phone]. Thank you for the referral of this patient. Sincerely, Naomi Osorio <Electronically signed by Naomi Osorio MPT> 09/17 0919 CC: Nunu Root; Eli Bowman Signed 14-Apr-2017 Inital Evaluation (1) - PT Result: Comments: See Note; NOTES: [facility] Physical Therapy [facility] [address] [place], [place] [address] Fax REHABILITATION SERVICES INITIAL EVALUATION MR#: [id number] Acct: [id number] Name: ELIZABETH TORO Rep #: [id number] : 1950 66 From: Naomi COMER Referring [...] to be FAXED BACK to us at [phone] for Medicare purposes. Please let me know if there are questions or concerns regarding this plan of care. Physician Signature: Date: <Electronically signed by Naomi Osorio MPT> 04/14/17 1906 CC: Nunu Root; Eli Bowman Signed For Medicare only, by sign ing this I certify the plan of care. Physicians Signature Date 08-Apr-2017 Knee 4 or More Views Result: Comments: See Note; NOTES: [facility] Imaging Services [address] [place] [address] Shaddadamian 4d Knee 4 or More Views MR#: [id number] Acct: [id number] Name: ELIZABETH TORO p #: [id number] : 1950 F 66 From: Chalino Mancia MD PCP: Eli Bowman Status: REG CLI Study: Knee 4 or More Views Date of Exam: 04/08/17 Exam# [id number] Ordering Dr: Mayda Dobbins DO STUDY: X-RAY [...] , CC: Eli Bowman; Mayda Dobbins DO Hogshead Wrecker: Signed 08-Apr-2017 Knee 4 or More Views Result: Comments: See Note; NOTES: [facility] Imaging Services [address] [place] [address] Verdana 4d Knee 4 or More Views MR#: [id number] Acct: [id number] Name: ELIZABETH TORO p #: [id number] : 1950 F 66 From: Chalino Mancia MD PCP: Eli Bowman Status: REG CLI Study: Knee 4 or More Views Date of Exam: 04/08/17 Exam# [id number] Ordering Dr: Mayda Dobbins DO STUDY: X-RAY [...] , CC: Eli Bowman; Mayda Dobbins DO Hogshead Wrecker: Signed 15-Mar-2017 Sleep Study Report Result: Comments: See Note; NOTES: [facility] SLEEP DISORDER CENTER [address] [place] [address] Polysomnography with NCPAP MR#: [id number] Acct: [id number] Name: ELIZABETH TORO Viridiana p #: [id number] : 1950 66 From: Kal Hernandez MD [...] version). Please note that a reference to [facility] AHI in this report is consistent with the current Hypopnea definition according to Medicare Criteria and an AAS AHI reference is consistent with the current Hypopnea defini tion according to the AASM criteria and is recognized by [facility] as the RDI. PROCEDURE: The study was attended continuously by a health care technician. Monitored parameters included left and right [...] body mass index of 30.9 and an [place] Sleepiness Scale score of 6. There is [...] can be requested. Kal Hernandez MD T: [facility] JOB: [id number] CC: Kal Hernandez MD 1151 1151 03/15/17 1451 <Electronically signed by Kal Hernandez MD> Date Kal Hernandez MD Co-signature (if applicable) Date Signed 05-Jan-2017 Esophagus Only Result: Comments: See Note; NOTES: [facility] Imaging Services [address] [place] [address] Ale 4d Esophagus Only MR#: [id number] Acct: [id number] Name: ELIZABETH TORO Rep #: [id number] : 1950 F 66 From: Gabriela Ragland MD PCP: Eli Bowman Status: REG CLI Study: Esophagus Only Date of Exam: 01/05/17 Exam# [id number] Ordering Dr: Sofia Bragg MD STUDY: AIR-CONTRAST [...] at 8:43 EST Tel , Service support [phone], CC: Eli Bowman; Sofia Bragg MD Hogshead Wrecker: Signed 29-Dec-2016 Emergency Department Summary Result: Comments: See Note; NOTES: [facility] Medical Records Department [address] [place] [address] Emergency Department Summary MR#: [id number] Acct: [id number] Name: XAVIER TORO Rep #: [id number] : 1950 66 From: Sofia Bragg MD PCP: Eli Bowman Status: DEP ER DATE OF SERVICE: 12/29/2016 CHIEF COMPLAINT: Sore throat. HISTORY OF PRESENT ILLNESS: This is a 66-year- old woman that states she was at [employer], choked on a piece of potato 5 [...] the case with Dr. Pena who is call center receptionist for GI and he suggested ordering an [...] C: Eli Pena MD T: [facility] JOB: [id number] 12/29/16 <Electronically signed by Sofia Bragg MD> Date Sofia Bragg MD Cosigner Signature (If Indicated): Date CC: Eli Bowman; Junior Pena Date Dictated: 12/29/161828 Date Transcribed: 12/29/161828 Hogshead Wrecker: Signed 29-Dec-2016 Discharge Instruction Result: Comments: See Note; NOTES: [facility] Medical Records Department [facility] [place] [address] Discharge Instruction 12/29/161829 MR#: [id number] Acct: [id number] Name: ELIZABETH TORO Rep #: [id number] : 1950 66 From: Sofai Bragg MD PCP: Eli Bowman Status: REG [...] problems, contact your Primary Care Provider. Call [email or web address] ([phone] ) or report to the closest Emergency Room. Call 911 if necessary. 12/29/161832 <Electronically signed by Sofia Bragg MD> Date Sofia Siddiqui Signature (If Indicated): Date CC: Eli Bowman 07-Aug-2016 Sleep Study Report Result: Comments: See Note; NOTES: [facility] SLEEP DISORDER CENTER [address] [place] [address] Split Night Sleep Study MR#: [id number] Acct: [id number] Name: ELIZABETH TORO Rep #: [id number] : 1950 65 From: Kal Hernandez MD [...] version). Please note that a reference to [facility] AHI in this report is consistent with the current Hypopnea definition according to Medicare Criteria and an AAS AHI reference is consistent with the current Hypopnea defin ition according to the AASM criteria and is recognized by [facility] as the RDI. PROCEDURE: The study was attended continuously by a health care technician. Monitored parameters included left and right [...] a body mass index of 29.3 and [place] Sleepiness Scale score of 2. There is [...] humidity. Kal Hernandez MD T: [facility] JOB: [id number] CC : Kal Hernandez MD 1144 1144 08/07/16 0959 <Electronically signed by Kal Hernandez MD> Date Kal Hernandez MD Co-signature (if applicable) Date Signed -Aug-2016 Kidney and Bladder Result: Comments: See Note; NOTES: [facility] Imaging Services [address] [place] [address] Verdana 4d Kidney and Bladder MR#: [id number] Acct: [id number] Name: JAYYELIZABETH A Rep #: [id number] : 1950 F 65 From: Anibal Lan MD PCP: Donnie Gonzales Status: [facility] CLI Study: Kidney and Bladder Date of Exam: 08/04/16 Exam# [id number] Ordering Dr: Beto Henry MD UDY: RENAL [...] Anibal Lan MD at 11:16 EDT Tel [phone], Service support [phone], CC: Soumya Henry M.D.; Donnie Gonzales Hogshead Wrecker: Signed 23-Jun-2016 Operative Report Result: Comments: See Note; NOTES: [facility] Medical Records Department [address] [place] [address] Operative Report MR#: [id number] Acct: [id number] Name: ELIZABETH TORO Rep #: [id number] : 1950 65 From: Gm Brush MD PCP: Donnie Gonzales Status: REG [facility] DATE OF SERVICE: 06/22/2016 DATE OF PROCEDURE: June 22, 2016 SURGEON: Gm Brush M.D. ELEMENTARY ELL TEACHER: Lia jacinto. ANESTHESIA: Gem Shelby and Frank [...] ovaries. Gm Brush MD T: [facility] JOB: [id number] 06/23/16 0725 <Electronically signed by Gm Brush MD> Date __ Gm Brush MD Cosigner Signature (If Indicated): Date CC: Gm Brush MD; Donnie Nolasco Dicta nahed: 06/22/161102 Date Transcribed: 06/22/161102 Hogshead Wrecker: Signed 22-Jun-2016 Discharge Instruction Result: Comments: See Note; NOTES: [facility] Medical Records Department [address] [place] [address] Instructions for Home/Discharge Instructions 06/22/16 0904 MR#: [id number] Acct: [id number] Name: ELIZABETH TORO Rep #: [id number] : 1950 65 From: Gm Brush MD PCP: Donnie Gonzales Status: REG [facility] Discharge Diet: No Restrictions Discharge Activity: Return [...] CC: Donnie Gonzales 10-Jun-2016 ELECTROCARDIOGRAM, COMPLETE (ECG) (59961) Result: [MEASUREMENTS ANALYSIS] Date of Test: 06/10/2016 09:39:53; Heart Rate: 58; SC Interval: 208; QRS: 86; QT Interval: 480; Corrected QT Interval (QTc): 477; P Wave Hardin: 45; QRS Wave Hardin: 11; T Wave Hardin: 23; Blood Pressure: 112/70 [ECG DIAGNOSTIC STATEMENTS] Date of Test: 06/10/2016 09:39:53; Summary: Sinus Bradycardia - Negative T-waves -May be normal - possible Anteroseptal ischemia. BORDERLINE 13-Apr-2016 Operative Report Result: Comments: See Note; NOTES: [facility] Medical Records Department [address] [place] [address] Operative Report MR#: [id number] Acct: [id number] Name: XAVIER TORO Rep #: [id number] : 1950 65 From: Gm Brush MD PCP: Edita Cabral MD Status: [facility] DATE OF SERVICE: 04/13/2016 DATE [...] curettings. Gm Brush MD T: NTS JOB: [id number] 04/13/16 1838 <Electronically signed by Gm Brush MD> Date Gm Brush MD Cosigner Signature (If Indicated): Date CC: Edita Young; Gm Brush MD Date Dictated: 04/13/16 1031 Date Transcribed: 04/13/161030 Hogshead Wrecker: Signed 13-Apr-2016 Discharge Instruction Result: Comments: See Note; NOTES: [facility] Medical Records Department [address] [place] [address] Instructions for Home/Discharge Instructions 04/13/16 1003 MR#: [id number] Acct: [id number] Name: ELIZABETH TORO Rep #: [id number] : 1950 65 From: Gm Brush MD [...] mg PO DAILY 04/10/16 Hydrocodone Bitart/Apap 5-325 [Bennett 5MG-325MG] 1 tablet PO Q4H PRN PRN #10 tablet 04/13/16 The followi ng prescriptions were given: Hydrocodone Bitart/Apap 5-325 [Bennett 5MG-325MG] 1 tablet PO Q4H PRN PRN #10 tablet PRN Reason: Mod-Severe Pain () Please Follow Up With: Gm Brush When: 2-3 jason bowers 04/13/16 1004 <Electronically signed by Gm Brush MD> Date Gm Brush MD CC: Edita Cabral MD 22-Mar-2016 Emergency Department Summary Result: Comments: See Note; NOTES: [facility] Medical Records Department [address] [place] [address] Emergency Department Summary MR#: [id number] Acct: [id number] Name: ELIZABETH TORO Rep #: [id number] : 1950 65 From: Nando Fuller MD [...] C: Edita Brush MD T: NTS JOB: [id number] 03/22/16 0247 <Electronically signed by Nando Fuller MD&a mp;#62; Date Nando Fuller MD Cosigner Signature (If Indicated): Date CC: Edita Cabral MD; Otilia Brush MD Date Dictated: 03/21/1650 Date Transcribed: 03/21/1650 Hogshead Wrecker: Signed 21-Mar-2016 Discharge Instruction Result: Comments: See Note; NOTES: [facility] Medical Records Department [address] [place] [address] Discharge Instruction 03/21/168 MR#: [id number] Acct: [id number] Name: ELIZABETH TORO Rep #: [id number] : 1950 65 From: Nando Fuller MD [...] ems, contact your doctor. Call [facility] ([phone]) or report to the closest Emergency Room. Call 911 if necessary. 03/21/16 0049 <Electronically signed by Nando Fuller MD&#6 2; Date Nando Fuller MD Cosigner Signature (If Indicated): Date CC: Edita Cabral MD 20-Mar-2016 Transvaginal Non- Result: Comments: See Note; NOTES: [facility] Imaging Services [address] [place] [address] Verdana 4d Transvaginal Non- MR#: [id number] Acct: [id number] Name: ELIZABETH DIAZ Rep #: [id number] : 1950 F 65 From: Jose Fu PCP: Edita Cabral MD Status: [facility] ER Study: Transvaginal Non- Date of Exam: 03/20/16 Exam# [id number] Ordering Dr: Oz Fuller MD STUDY: ULTRASOUND [...] DO at 0:42 EDT , Service support [phone], Fax CC: Edita Cabral MD; Nando Fuller MD Hogshead Wrecker: Signed 25-Feb-2016 Esophagus Only Result: Comments: See Note; NOTES: [facility] Imaging Services [address] [place] [address] Verdana 4d Esophagus Only MR#: [id number] Acct: [id number] Name: XAVIER TORO Rep #: [id number] : 1950 F 65 From: Anibal Lan MD PCP: Edita Cabral MD Status: REG CLI Study: Esophagus Only Date of Exam: 02/25/16 Exam# [id number] Ordering Dr: Donnie Gonzales STUDY: X-RAY - [...] Anibal Lan MD at 10:35 EDT Tel [phone], Service support [phone], Fax RAD/Esophagus Only IMPRESSION: Normal plain film x-ray examination (barium swallow) of the esophagus. Electronically Signed: Anibal Lan MD at 10: 35 EDT Tel [phone], Service support [phone], CC: Edita Cabral MD; Donnie Gonzales Hogshead Wrecker: Signed 25-Feb-2016 Esophagus Only Result: Comments: See Note; NOTES: [facility] Imaging Services [address] [place] [address] Verdana 4d Esophagus Only MR#: [id number] Acct: [id number] Name: XAVIER TORO Rep #: [id number] : 1950 F 65 From: Anibal Lan MD PCP: Edita Cabral MD Status: REG CLI Study: Esophagus Only Date of Exam: 02/25/16 Exam# [id number] Ordering Dr: Donnie Gonzales ADDENDUM by Anibal Lan MD on 03/31/16 at 0747 ADDENDUM This is an addendum report for PQRS purposes. 19 images were obtained. Electronically Signed: Anibal Lan MD at 7:47 EDT Tel [phone], Service support [phone], 03/31/16 0747 Date cc: Edita Cabral MD; [...] Anibal Lan MD at 10:35 EDT Tel [phone], Service support [phone], RAD/Esophagus Only IMPRESSION: Normal plain film x-ray examination (barium swallow) of the esophagus. Electronically Signed: Anibal Lan MD at 10:35 EDT Tel [phone], Service support [phone], CC: Edita Cabral MD; Donnie Gonzales Hogshead Wrecker: Signed 10-Dec-2015 12 Lead Electrocardiogram Result: Comments: See Note; NOTES: [facility] Cardiovascular Services [address] [place] [address] 12 Lead EKG 12/08/15 1551 MR#: [id number] Acct: [id number] Name: ELIZABETH DASILVA Rep #: [id number] : 1950 65 From: Francisco Muller MD [...] ECG Confirmed by FRANCISCO MULLER MD ([id number]), movie editor ZUNILDA KLEIN ([id number]) on 12/10/2015 9:33:10 AM Referred By: ROMEL Confirmed By:FRANCISCO MULLER MD 12/10/15 0933 Date ___ Francisco Muller MD CC: Edita Cabral MD Date Dictated: 12/08/15 155 Date Transcribed: 12/08/151550 Hogshead Wrecker: Signed 10-Dec-2015 Emergency Department Summary Result: Comments: See Note; NOTES: [facility] Medical Records Department [address] [place] [address] Emergency Department Summary MR#: [id number] Acct: [id number] Name: ELIZABETH TORO Rep #: [id number] : 1950 65 From: Sisi Severino MD [...] C: Edita Cabral MD T: NTS JOB: [id number] 12/10/15 0232 <Electronically deepti d by Sisi Severino MD> Date Sisi Severino MD Cosigner Signature (If Indicated): Date C C: Edita Cabral MD Date Dictated: 12/08/151705 Date Transcribed: 12/08/151705 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 Call [email or web address] ([phone]) or report to the closest Emergency Room. Call 911 if necessary. 12/08/15 1701 <Electronically signed by Sisi young MD> Date Sisi Severino MD Cosigner Signature (If Indicated): Date CC: Edita Cabral MD 08-Dec-2015 Chest PA and Lateral Result: Comments: See Note; NOTES: [facility] Imaging Services [address] [place] [address] Verdana 4d Chest PA and Lateral MR#: [id number] Acct: [id number] Name: ELIZABETH TORO Rep #: [id number] : 1950 F 65 From: Malaika Diana MD PCP: Edita Cabral MD Status: REG ER Study: Chest PA and Lateral Date of Exam: 12/08/15 Exam# [id number] Ordering Dr: Sisi Severino MD STUDY: X-RAY [...] MD at 16:41 EST , Service support [phone], RAD/Chest PA and Lateral IMPRESSION: No acute disease is demonstrated. Electronic ally Signed: Malaika Diana MD at 16:41 EST , Service support [phone], CC: Edita Cabral MD; Sisi Severino MD Hogshead Wrecker: Signed 16-Sep-2015 EKG (47785) Result: [MEASUREMENTS ANALYSIS] Date of Test: 09/16/2015 09:46:37; Heart Rate: 74; SC Interval: 192; QRS: 88; QT Interval: 406; Corrected QT Interval (QTc): 430; P Wave Hardin: 28; QRS Wave Hardin: -3; T Wave Hardin: -1; Blood Pressure: 104/60 [ECG DIAGNOSTIC STATEMENTS] Date of Test: 09/16/2015 09:46:37; Summary: Sinus Rhythm Low voltage in precordial leads. - Nonspecific T-abnormality. ABNORMAL 11-Feb-2015 Kidney and Bladder Result: Comments: See Note; NOTES: [facility] Imaging Services [address] [place] [address] Ultrasound Report MR#: [id number] Acct: [id number] Name: ELIZABETH TORO Rep #: [id number] : 1950 F 64 From: Mina Cade MD PCP: Edita Cabral MD Status: REG CLI Study: Kidney and Bladder Date of Exam: 02/11/15 Exam# [id number] Ordering Dr: Edita Cabral MD STUDY: RE [...] MD at 23:11 EDT , Service support [phone], CC: Edita Cabral MD Hogshead Wrecker: Signed 24-Jul-2014 PT Discharge Summary Result: Comments: See Note; NOTES: [facility] Therapy [facility] [address] [place] [address] [address] [place], [place] [address] Fax REHABILITATION SERVICES DISCHARGE SUMMARY MR#: [id number] Acct: [id number] Name: ELIZABETH TORO Rep #: [id number] : 1950 63 From: Naomi Osorio Referring [...] clinic. Naomi Osorio, PT T: NTS JOB: [id number] <Electronically signed by Faraz Osorio > 07/24/14 4170 CC: Signed 15-Jun-2014 PT Discharge Summary Result: Comments: See Note; NOTES: [facility] [address] [place] [address] [address] [place], [place] [address] Fax REHABILITATION SERVICES DISCHARGE SUMMARY MR#: [id number] Acct: [id number] Name: ELIZABETH TORO Rep #: [id number] : 1950 63 From: Naomi Osorio Referring [...] Sincerely, Naomi Osorio, PT T: NTS JOB: [id number] <Electronically signed by Naomi Osorio & amp;#62; 06/15/14 1410 CC: Signed 25-May-2014 Inital Evaluation - PT Result: Comments: See Note; NOTES: [facility] [address] [place] [address]. [address] [place], [place] [address] Fax REHABILITATION SERVICES INITIAL EVALUATION MR#: [id number] Acct: [id number] Name: ELIZABETH TORO Rep #: [id number] : 1950 63 From: Naomi Osorio Referring Dr.: Edita Cabral MD Status: REG RCR Insurance: [facility] Eval Date: PHYSICIAN MUTUAL [...] anterolateral shoulder. She is right-handed. 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 Naomi Osorio, PT T: NTS JOB: [id number] <Electronically signed by Naomi Osorio > 4 1241 CC: Signed For Medicare only, by signing this I certify the plan of care. Physicians Signature Date 23-May-2014 Nuclear Stress Test - Chemical Result: Comments: See Note; NOTES: [facility] Imaging Services [address] [place] [address] Nuclear Medicine Report MR#: [id number] Acct: [id number] Name: ELIZABETH TORO Rep #: [id number] : 1950 F 63 From: Tano Nielsen MD PCP: Edita Cabral MD Status: REG CLI Study: Nuclear Stress Test - Chemical Date of Exam: 05/23/14 Exam# [id number] Ordering Dr: Álvaro Cabral MD EXERCISE TOLERANCE [...] LVEF of 61%. CC: Edita Cabral MD Hogshead Wrecker: SHEKHRA Signed 14-May-2014 Shoulder min 2 Views Result: Comments: See Note; NOTES: [facility] Imaging Services [address] [place] [address] Radiology Report MR#: [id number] Acct: [id number] Name: ELIZABETH TORO Rep #: [id number] : 1950 F 63 From: Hardeep Dumont MD PCP: Erna Kingston DO Status: REG CLI Study: Shoulder min 2 Views Date of Exam: 05/14/14 Exam# [id number] Ordering Dr: Edita Cabral MD STUDY: X-RAY [...] Silvio Dumont MD at 12:18 EDT , [email or web address] ce support [phone], CC: Edita Cabral MD; Erna Kingston DO Hogshead Wrecker: Signed 30-Apr-2014 CTA Chest W/WO Contrast Result: Comments: See Note; NOTES: [facility] Imaging Services [address] [place] [address] CAT Scan Report MR#: [id number] Acct: [id number] Name: ELIZABETH TORO Rep #: [id number] : 1950 F 63 From: Hardeep Calix MD PCP: Erna Kingston DO Status: REG CLI Study: CTA Chest W/WO Contrast Date of Exam: 04/30/14 Exam# [id number] Ordering Dr: Erna Kingston DO STUDY: CTA [...] at 19 :01 EDT , Service support [phone], CC: Erna Kingston DO Hogshead Wrecker: Signed Family History Unknown Family Member Name [...] kg/m2 Body Surface Area Calculated 1.91 m2 23-Myb-189834:07 Pulse 73 /min Comments: Pattern: Regular Respiration [...] kg/m2 Body Surface Area Calculated 1.96 m2 76-Pbv-061120:01 Temperature 98.1 f Comments: Method: Oral Pulse [...] 0.00 cm Results Date Description Value Details 4-Hrw-504532:57 CREATININE FINGERSTICK Comments: [facility] [address] [place] [address] EGFR WB 55.0000 mL/min (Abnormal) CREATININE WB 1.1 mg/dL (Abnormal) Range: 0.55-1.02 89-Sgb-540078:19 D-Dimer (83816) Comments: PATIENT NOT FASTINGPERFORMED BY: EMIL Dishablecassidy StoutAtrium Health Cabarrus [id number] D-Dimer 0.57 {mg/L_FEU} (Abnormal) Range: 0.00-0.49 Comments: According to the assay aviation project manager's published package insert, anormal (<0.50 mg/L FEU) D-dimer result in conjunction with a non-highclinical probability assessment, excludes deep vein thrombosis (D VT)and pulmonary embolism (PE) with high sensitivity. .D-dimer values increase with age and this can make VTE exclusion ofan older pop ulation difficult. To address this, the [employer] [employer], based on best available evidence [...] and an80 year old 0.80 mg/L FEU. 99-Dum-558647:19 Troponin I (02375) Comments: PATIENT NOT FASTINGPERFORMED BY: [facility]6370 [facility] [id number] Troponin I <0.01 ng/mL (Normal) Range: 0.00-0.04 47-Dgr-607278:19 CPK MB FRACTION (56974) Comments: PATIENT NOT FASTINGPERFORMED BY: [facility]6370 [facility] [id number] Creatine Kinase (CK), MB 2.5 ng/mL (Normal) Range: 0.0-5.3 91-Htz-140259:19 CREATINE KINASE TOTAL (43740) Comments: PATIENT NOT FASTINGPERFORMED BY: [facility]6370 [facility] [id number] Creatine Kinase,Total 103 U/L (Normal) Range: 24-173 :16 CBC-Complete Blood Cnt No Diff Comments: [facility] Velermsrzm[address] [facility] [address] [place], [place], [address] MPV 10.5 fL (Normal) Range: 6.2-12.0 PLT [...] Range: 4.4-11.0 :16 Microalb:Creat Ratio,Random UR Comments: [facility] [address] [facility] [address] [place], [place], [address] MALB:CREAT Test not performed {mg/g_CRE} (Normal) MICROALBUMIN,UR < 5.0 mg/L (Normal) UR CREAT < 13.00 mg/dL (Normal) :16 PTHIN 51.5 pg/mL (Normal) Comments: [facility] [address] [place], [address] Range: 18.4-80.1 :16 Renal Profile Comments: [facility] [address] [place], [id number] CO2 28.0 mmol/L (Normal) Range: 21.0-32.0 CL [...] Comments: Please note revised GLUCOSE reference range ajzgblrcu98/02/2018. 95-Qcs-67307:16 Vitamin D,25 Hydroxy Comments: [facility] [address] [place], [address] Vitamin D 25-OH 69.4 ng/mL (Normal) Range: 29.95-100.01 Comments: Vitamin D 25(OH) Status Range Deficiency <20 ng/mL (50nmol/L) Insuffciency 20 - 30 ng/mL (50 - 75 nmol/L) Sufficiency 30 - 100 ng/mL (75 - 250 nmol/L) Toxicity >100 ng/mL (>250 nmol/L) :04 HgA1C , Office (20152) HgA1C , Office 5.5 % (Normal) Range: 4.6 - 7.1 :23 CALCIFEDIOL (33366) Comments: PATIENT WAS FASTINGPERFORMED BY: [facility]6370 [facility] [id number] Vitamin D, 25-Hydroxy 43.2 ng/mL (Normal) Range: 30.0-100.0 Comments: Vitamin D deficiency has been defined by the [place] ofMedicine and an Endocrine Society practice guideline as alevel of serum 25-OH vitamin D less than 20 ng/mL (1,2).The Endocrine Society went on to further define vitamin Dinsufficiency as a level between 21 and 29 ng/mL (2).1. IOM ([place] of Medicine). 2010. Dietary reference intakes for calcium and D. [place]: The National Academies Press.2. Azael MF, Leslee NC, Hillary PHILLIPS, et al. Evaluation, treatment, and prevention of vitamin D deficiency: an Endocrine Society clinical practice guideline. JCEM. 2010; 96(7):1911-30. :23 CBC, Platelets & Auto Diff Comments: PATIENT WAS FASTINGPERFORMED BY: [facility]CoRobert [facility] SomersetExiyox8077 [facility] [id number] (35344) Immature Grans (Abs) 0.0 {x10E3/uL} (Normal) Range: [...] 3.77-5.28 WBC 7.1 {x10E3/uL} (Normal) Range: 3.4-10.8 35-Ffo-94557:23 Metabolic Panel, Comprehensive Comments: PATIENT WAS FASTINGPERFORMED BY: LabCoRobert [facility] Johnson [facility] Hospital SomersetPzvgbr5978 [facility] [id number] (75845) ALT (SGPT) 15 [iU]/L (Normal) Range: 0-32 [...] Glucose, Serum 82 mg/dL (Normal) Range: 65-99 97-Zwh-53749:23 MICROALBUMIN: CREATININE RATIO Comments: PATIENT WAS FASTINGPERFORMED BY: [employer] ABFIT ProductsAngel Medical Center [id number] (55031) AND (93813) Alb/Creat Ratio <5.6 {mg/g_creat} (Normal) Range: 0.0-30.0 Albumin, Urine <3.0 ug/mL (Normal) Creatinine, Urine 53.5 mg/dL (Normal) 63-Ocw-982147:31 Metabolic Panel, Basic Comments: PATIENT NOT FASTINGPERFORMED BY: CaratLaneAngel Medical Center [id number] (90121) Calcium, Serum 9.9 mg/dL (Normal) Range: 8.7-10.3 [...] (Normal) Range: 65-99 :55 HgA1C , Office (35853) Comments: 5.5 HgA1C , Office 5.5 % (Normal) Range: 4.6 - 7.1 2-Sbi-712434:22 VITAMIN B12 AND FOLATES Comments: today; PATIENT NOT FASTINGPERFORMED BY: [employer] MonkSeptRxAngel Medical Center [id number] (37085) Folate (Folic Acid), Serum >20.0 ng/mL (Normal) Comments: A serum folate concentration of less than 3.1 ng/mL isconsidered to represent clinical deficiency. Vitamin B12 655 pg/mL (Normal) Range: 232-1245 Comments: Please note reference interval change :58 CALCIFEDIOL (12268) Comments: PATIENT NOT FASTINGPERFORMED BY: [facility] Mpazdo[address] [place] [id number] Vitamin D, 25-Hydroxy 25.2 ng/mL (Abnormal) Range: 30.0-100.0 Comments: Vitamin D deficiency has been defined by the [place] ofMedicine and an Endocrine Society practice guideline as alevel of serum 25-OH vitamin D less than 20 ng/mL (1,2).The Endocrine Society went on to further define vitamin Dinsufficiency as a level between 21 and 29 ng/mL (2).1. IOM ([place] of Medicine). 2010. Dietary reference intakes for calcium and D. [place]: The National Academies Press.2. Azael MF, Leslee NC, Hillary PHILLIPS, et al. Evaluation, treatment, and prevention of vitamin D deficiency: an Endocrine Society clinical practice guideline. JCEM. 2010; 96(7):1911-30. 80-Ohk-530443:58 TSH (THYROID STIMULATING Comments: PATIENT NOT FASTINGPERFORMED BY: [facility] Iwtdkd3558 Monk [facility] HospitalD[facility] [place] [id number] HORMONE) (30831) TSH 2.410 {uIU/mL} (Normal) Range: 0.450-4.500 :58 CBC WITH MANUAL DIFF (71551) Comments: PATIENT NOT FASTINGPERFORMED BY: CB [facility] Egkwem0518 Monk [facility] HospitalDublin [place] [id number] Immature Grans (Abs) 0.0 {x10E3/uL} (Normal) Range: [...] 3.77-5.28 WBC 7.7 {x10E3/uL} (Normal) Range: 3.4-10.8 51-Oah-821818:58 Metabolic Panel, Comprehensive Comments: PATIENT NOT FASTINGPERFORMED BY: LabCoRobert [facility] SomersetUammbp5256 [facility] [id number] (33116) ALT (SGPT) 13 [iU]/L (Normal) Range: 0-32 [...] Glucose, Serum 90 mg/dL (Normal) Range: 65-99 2-Fum-881465:07 Bedside Glucose Comments: [facility] Trmq[address] [place] [address] BEDSIDE GLU 100 mg/dL (Normal) Range: 70-110 Comments: MANAGEMENT OF PATIENT CARE PER NURSING PROTOCOL 24-Oba-359379:14 D-Dimer Quantitative (DVT/PE) Comments: Order Date: 08/30/17Order Info: [id number] - [facility]-DIMERWCher[facility] Ymtimgreql9919 [facility] [place], [place], [address] D-DIMER QUANT 0.35 {FEU/ug/m} (Normal) Range: 0.27-0.49 Comments: NORMAL D-Dimer level (<0.50) indicates no DVT or PE. 51-Ikk-807621:44 Blood Glucose , Office (64703) Blood Glucose , 129 (Normal) Office :2 Request Problem Final report Comments: PATIENT NOT FASTINGPERFORMED BY: [facility] Nupyai0433 [facility] World [facility] PicturesAtrium Health Cabarrus [id number] Information: MOUTH SRC:MO 1 (Normal) Comments: Inappropriate source for anaerobic culture. A routine aerobic culturewas initiated. Contact the Microbiology Lab for further information. :2 Test Code Change SPRCS (Normal) Comments: PATIENT NOT FASTINGPERFORMED BY: [facility] [employer] [facility] [id number] 1 Comments: Please note that the Microbiology test code was changed to reflectthe specimen source or transport received. :21 Upper Respiratory Culture Comments: PATIENT NOT FASTINGPERFORMED BY: [facility]6370 [facility] [id number] Result 1 RRF (Normal) Comments: Routine respiratory duyen Upper Respiratory Culture Final report (Normal) 36-Jpv-767108:59 Metabolic Panel, Comprehensive Comments: Jul 2017; PATIENT NOT FASTINGPERFORMED BY: [facility]6370 [facility] [id number] (93900) ALT (SGPT) 16 [iU]/L (Normal) Range: 0-32 [...] Glucose, Serum 80 mg/dL (Normal) Range: 65-99 58-Lyq-127471:59 MAGNESIUM (87359) Comments: today; PATIENT NOT FASTINGPERFORMED BY: [facility] Ghzmlb6318 [facility] [id number] Magnesium, Serum 2.2 mg/dL (Normal) Range: 1.6-2.3 :04 Blood Glucose , Office (17847) Blood Glucose , Office 111 (Normal) :04 HgA1C , Office (73606) HgA1C , Office 5.5 % (Normal) Range: 4.6 - 7.1 :03 CBC W/Diff, Automated Comments: [facility] [address] [place], [place], [address] ; another doc Absolute Lymph 2.35 {X10_3/ul} [...] (Normal) Range: 4.4-11.0 :03 Protein+Creatinine Ratio,Urine Comments: [facility] [address]dpujqcyt[address] [place], [address] PROT:CRE RATIO 403 {mg/g_CRE} (Abnormal) Range: 0-200 PROTEIN,UR.RAN. < 6.0 mg/dL (Normal) UR CREAT 13.90 mg/dL (Normal) :03 PTH,INTACT Comments: [facility] Unk[address]af[address] [facility] [address] [place], [address] PTH,Intact 34 pg/mL (Normal) Range: 14-72 :03 Renal Profile Comments: [facility] Viaqaomvog[address] [place], [address] CO2 26.0 mmol/L (Normal) Range: 21.0-32.0 CL [...] report for address and phone number VITD 76837 48.5 pg/mL (Normal) Range: 19.9-79.3 Comments: Performed at: [address] [id number] Director: Navdeep Medley MD, Phone: [phone] 02-Cff-822413:06 Metabolic Panel, Comprehensive Comments: PATIENT NOT FASTINGPERFORMED BY: [facility] Ygsrge0317 [facility]GushAngel Medical Center [id number] (68645) ALT (SGPT) 11 [iU]/L (Normal) Range: 0-32 [...] Glucose, Serum 78 mg/dL (Normal) Range: 65-99 18-Fjp-964990:06 CBC, Platelets & Auto Diff Comments: PATIENT NOT FASTINGPERFORMED BY: [facility] Dnroeb3764 Monk [facility] [id number] (03368) Immature Grans (Abs) 0.0 {x10E3/uL} (Normal) Range: [...] 3.77-5.28 WBC 9.3 {x10E3/uL} (Normal) Range: 3.4-10.8 97-Uvo-081806:06 TSH (61118) Comments: PATIENT NOT FASTINGPERFORMED BY: [facility] Mmwmnf5018 Lacho [facility] [id number] TSH 3.080 {uIU/mL} (Normal) Range: 0.450-4.500 53-Qal-558622:56 HgA1C , Office (12962) HgA1C , Office 5.5 % (Normal) Range: 4.6 - 7.1 96-Crn-398274:56 Blood Glucose , Office (84625) Blood Glucose , Office 81 (Normal) 31-Dec-20168:09 LIPID PANEL (21054) Comments: PATIENT WAS FASTINGPERFORMED BY: [employer]6370 [facility] [id number] LDL/HDL Ratio 2.0 {ratio_units} (Normal) Range: 0.0-3.2 [...] PANEL, COMPREHENSIVE Comments: PATIENT WAS FASTINGPERFORMED BY: [employer]6370 [facility] [id number] (73408) ALT (SGPT) 15 [iU]/L (Normal) Range: 0-32 [...] Glucose, Serum 104 mg/dL (Abnormal) Range: 65-99 99-Gjc-75396:04 METABOLIC PANEL, COMPREHENSIVE Comments: fax to Dr Henry; PATIENT WAS FASTINGPERFORMED BY: [facility] Axsued1199 [facility] [id number] (96170) ALT (SGPT) 16 [iU]/L (Normal) Range: 0-32 [...] CREATININE RATIO Comments: PATIENT WAS FASTINGPERFORMED BY: CaratLaneAngel Medical Center [id number] (08953) AND (29953) Microalb/Creat Ratio <6.3 {mg/g_creat} (Normal) Range: 0.0-30.0 Microalbumin, Urine <3.0 ug/mL (Normal) Creatinine, Urine 48.0 mg/dL (Normal) :04 HGB A1C (54424) Comments: PATIENT WAS FASTINGPERFORMED BY: [employer]70 WeGushAngel Medical Center [id number] Hemoglobin A1c 5.7 % (Abnormal) Range: 4.8-5.6 Comments: . Pre-diabetes: 5.7 - 6.4 Diabetes: >6.4 Glycemic control for adults with diabetes: <7.0 :04 CALCIFEDIOL (92933) Comments: PATIENT WAS FASTINGPERFORMED BY: [employer]70 [facility] World [facility] PicturesAtrium Health Cabarrus [id number] Vitamin D, 25-Hydroxy 24.2 ng/mL (Abnormal) Range: 30.0-100.0 Comments: Vitamin D deficiency has been defined by the [place] ofMedicine and an Endocrine Society practice guideline as alevel of serum 25-OH vitamin D less than 20 ng/mL (1,2).The Endocrine Society went on to further define vitamin Dinsufficiency as a level between 21 and 29 ng/mL (2).1. IOM ([place] of Medicine). 2010. Dietary reference intakes for calcium and D. [place]: The National Academies Press.2. Azael MF, Leslee NC, Hillary PHILLIPS, et al. Evaluation, treatment, and prevention of vitamin D deficiency: an Endocrine Society clinical practice guideline. JCEM. 2010; 96(4):1891-30. :04 TSH (THYROID STIMULATING Comments: PATIENT WAS FASTINGPERFORMED BY: [facility] ABFIT ProductsAngel Medical Center [id number] HORMONE) (87778) TSH 2.710 {uIU/mL} (Normal) Range: 0.450-4.500 :04 LIPID PANEL (76075) Comments: PATIENT WAS FASTINGPERFORMED BY: [employer] Monk [facility] [id number] LDL/HDL Ratio 1.7 {ratio_units} (Normal) Range: 0.0-3.2 [...] AUT DIFF Comments: PATIENT WAS FASTINGPERFORMED BY: [employer] Burxbo6953 [facility] [id number] (25772) Immature Grans (Abs) 0.0 {x10E3/uL} (Normal) Range: [...] up testing of positive sera with both SC-3 and MPO- ANCA enzyme immunoassays. As many as 5% serumsamp les are positive only by EIA. Ref. AM J Clin Mmaqyr2027;111:507-513. CYTOPLASMIC Ab <1:20 {titer} (Normal) :28 Anti-dsDNA Ab Comments: [facility] (refer to report for specific site)refer to report for address and phone number dsDNA AB <1 {IU/mL} (Normal) Range: 0-9 Comments: Negative <5 Equivocal 5 - 9 Positive >9Performed at: [facility] VeraLight[address] [id number] D irector: Junior Valera PhD, Phone: [phone] :28 Complement C3 Comments: Is Patient Fasting? [facility] (refer to report for specific site)refer to report for address and phone number COMP C3 127 mg/dL (Normal) Range: 82-167 Comments: Performed at: [facility]GG[address] [id number] Director: Junior Valera PhD, Phone: [phone] :28 Complement C4 Comments: Is Patient Fasting? [...] electrophoresis scan will follow via computer,mail, or dough sheeter delivery. LEOPOLDO RESULT,S Comment: (Normal) Comments: Presence of monoclonal protein is unclear at this time. Suggest repeat in 3 to 6 months if clinically indicated. A/G RATIO 0.9 (Normal) Range: 0.7-1.7 GLOBULIN, TOTAL 3.8 g/dL (Normal) Range: 2.2-3.9 M-SPIKE (Normal) Comments: Not Observed GAMMA GLOBULIN 1.4 g/dL (Normal) Range: 0.4-1.8 BETA GLOBULIN 1.3 g/dL (Normal) Range: 0.7-1.3 DGLVD-3-IDFF 0.9 g/dL (Normal) Range: 0.4-1.0 ZPQWM-7-HQGK 0.2 g/dL (Normal) Range: 0.0-0.4 ALBUMIN 3.4 g/dL (Normal) Range: 2.9-4.4 IMMUNOGL M 44 mg/dL (Normal) Range: 26-217 IMMUNO A 614 mg/dL (Abnormal) Range: 87-352 IMMUNO G 1353 mg/dL (Normal) Range: 700-1600 PROTEIN,TOTAL 7.2 g/dL (Normal) Range: 6.0-8.5 :28 Protein+Creatinine Ratio,Urine Comments: [facility] [address]ebcvsi[address] [place], [address] PROT:CRE RATIO 128 {mg/g_CRE} (Normal) Range: 0-200 PROTEIN,UR.RAN. 6.5 mg/dL (Normal) UR CREAT 50.60 mg/dL (Normal) :46 RENAL FUNCTION PANEL (53053) Comments: PATIENT NOT FASTINGPERFORMED BY: [employer]6370 [facility] [id number] Phosphorus, Serum 4.2 mg/dL (Normal) Range: 2.5-4.5 :46 PT (PROTHROMBIN TIME) (11252) Comments: PATIENT NOT FASTINGPERFORMED BY: [employer] LabCo2heuresavantLersrm3064 [facility] [id number] Prothrombin Time 10.9 {sec} (Normal) Range: 9.1-12.0 INR 1.1 (Normal) Range: 0.8-1.2 Comments: Reference interval is for non-anticoagulated patients. . Suggested INR therapeutic range for Vitamin K anta gonist therapy: Standard Dose (moderate intensity therapeutic range): 2.0 - 3.0 Higher intensity therapeutic range 2.5 - 3.5 :46 METABOLIC PANEL, COMPREHENSIVE Comments: PATIENT NOT FASTINGPERFORMED BY: [employer] Rbangm4194 [facility] [id number] (56190) ALT (SGPT) 24 [iU]/L (Normal) Range: 0-32 [...] Glucose, Serum 109 mg/dL (Abnormal) Range: 65-99 09-Gmc-976917:46 CBC, PLATELETS & AUT DIFF Comments: PATIENT NOT FASTINGPERFORMED BY: [facility] Kcvnhv1158 [facility] [id number] Information: [id number] (46882) Immature Grans (Abs) 0.0 {x10E3/uL} (Normal) Range: [...] (Normal) Range: 3.4-10.8 :23 HgA1C , Office (36638) HgA1C , Office 5.4 % (Normal) Range: 4.6 - 7.1 :16 CBC-Complete Blood Cnt No Diff Comments: [facility] [address] [place], [address] MPV 8.8 fL (Normal) Range: [...] 4.4-11.0 :16 Serum Creatinine AND GFR Comments: [facility] [address] [place], [place], [id number] Estimated CRCL 27.75 ml/min (Normal) EST GFR - AA 37 mL/min (Abnormal) Comments: GFR Calc EST GFR 30 mL/min (Abnormal) Comments: Non- GFR Calc CREAT,SERUM 1.77 mg/dL (Abnormal) Range: 0.55-1.20 Comments: The validity of the calculated GFR AND GFRAA in patients over70 years has not been determined. Clinical correlation isessential. 38-Iaw-904414:15 Bedside Glucose Comments: [facility] LaboratoryPoint of [address]ug[address] [place], [place] [address] BEDSIDE GLU 128 mg/dL (Abnormal) Range: 70-110 Comments: Policy and Physicians Orders followedMANAGEMENT OF PATIENT CARE PER NURSING PROTOCOL HYSTERECTOMY SPECIMEN See Note (Normal) Comments: [facility] [address] [place], [place], [id number] :39 Comments: Patient: ELIZABETH TORO : 1950 (65/F) Acct Num: [id number] Phys: Gonsalo PROCTOR,Gm Unit Num: [id number] Loc: MS1 [id number] Specimen: [id number] Received: 06/22/161336 Spec Ty pe: HYSTERECT TISSUES TISSUES: COMMENT Please make reference to previous specimen ([id number]) endometrial biopsy with diagnosis of consistent with atrophic endometrium and ([id number]) e ndometrium andpolyp, excision with diagnosis of [...] measures 1.2 x 0.7 x 0.6 cm. Materials Scheduler sections are submitted inten cassettes as follows: [...] tube and ovary. / Sridevi 06/22/16 TC:1 CPT:14590 HEADER OPERATION: Lap robotic hysterectomy, BSO PRE-OP [...] Signed Sivakumar Mallory 06/23/16 <signature on file> 73-Tpb-40056:31 Bedside Glucose Comments: [facility] LaboratoryPoint of [address] [place] [address] BEDSIDE GLU 89 mg/dL (Normal) Range: 70-110 Comments: Physician Notified VBRBMANAGEMENT OF PATIENT CARE PER NURSING PROTOCOL 54-Ugn-769589:31 CBC-Complete Blood Cnt No Diff Comments: [facility] [address] [place], [address] MPV 10.1 fL (Normal) Range: [...] Range: 4.4-11.0 :31 Comprehensive Metabolic Profil Comments: [facility] [address] [place], [address] GAP 8 (Normal) Range: 5-15 [...] (Normal) Range: 70-110 :31 Hemoglobin A1c Comments: [facility] [address] [place], [place], [address] HGB A1C 5.6 % (Normal) Range: 4.2-6.3 :31 Partial Thromboplast Time Comments: [facility] [address] [place], [place], [address] PTT 27.7 s (Normal) Range: 24.1-36.2 35-Vch-408497:31 Prothrombin Time w/INR Comments: [facility] [address] [place], [place], [address] INR 1.1 (Normal) PROTIME 13.4 s (Normal) Range: 11.7-14.9 32-Qks-679742:31 Thyroid Stim Hormone (TSH) Comments: [facility] [address] [place], [place], [address] TSH 2.46 {uIU/mL} (Normal) Range: 0.358-3.74 :31 Type AND Screen Comments: Surgery Date: 06/22/16Date of Last Transfusion (if within last 3 months) NHx of Preganancy in last 3 Months NoEver experience any problems with transfusion(s)? NHx of Transfusion in last 3 Months N Reason for Type AND Screen/Red Cells: SURGERYTime: 0600SURGICAL PROCEDURE: [facility] [address] [place], [place], [address] Antibody Screen NEGATIVE (Normal) BLOOD TYPE GEL A NEGATIVE (Normal) 64-Wiu-559807:28 Comprehensive Metabolic Profil Comments: Order Date: 06/10/16Order Date: 06/10/16[facility] [address] [place], [address] GAP 5 (Normal) Range: 5-15 CO2 28.0 [...] 7-18 GLU 79 mg/dL (Normal) Range: 70-110 06-Whz-464561:58 CBC W/Diff, Automated Comments: [facility] [address] [place], [address] Absolute Lymph 2.98 {X10_3/ul} (Normal) [...] 4.2-5.4 WBC 8.7 K/mm3 (Normal) Range: 4.4-11.0 21-Cif-593270:58 Comprehensive Metabolic Profil Comments: Is Patient Taking Vitamins or Folic Acid Supplements? [facility] [address] [place], [address] GAP 8 (Normal) Range: 5-15 CO2 [...] 7-18 GLU 95 mg/dL (Normal) Range: 70-110 23-Jxu-366530:58 Erythrocyte Sed Rate Comments: [facility] [address] [place], [place], [address] SED RATE 25 mm/h (Normal) Range: 0-30 73-Lqs-059152:58 Folates, (Folic Acid) Comments: Is Patient Taking Vitamins or Folic Acid Supplements? [facility] [address] [place], [place], [address] FOLATES 9.60 ng/mL (Normal) Range: 3.1-17.5 36-Qwc-383613:58 Thyroid Stim Hormone (TSH) Comments: Is Patient Taking Vitamins or Folic Acid Supplements? [facility] [address] [place], [place], [address] TSH 2.58 {uIU/mL} (Normal) Range: 0.358-3.74 36-Nra-694885:58 Vitamin B12 543 pg/mL (Normal) Comments: [facility] [address] [place], [place], [address] Range: 211-911 69-Trh-111501:07 Urinalysis, Office (70993) UA - LEUKOCYTE ESTERASE Trace (Normal) UA - NITRITE Negative (Normal) URINE UROBILINGN SHARIFA TIMED Normal mg/dL (Normal) UA - PROTEIN Negative mg/dL (Normal) UA - PH 6.5 (Normal) UA - BLOOD Hemolyzed Trace (Normal) UA - SPECIFIC GRAVITY 1.005 (Normal) UA - KETONES Negative mg/dL (Normal) UA - BILIRUBIN Negative (Normal) UA - GLUCOSE Negative (Normal) 27-Beh-721207:04 URINE VERÓNICA CULTURE-SHARIFA COL Comments: PATIENT NOT FASTINGPERFORMED BY: [facility] Ejolaa3939 [facility] [id number] Information: SRC:URC [id number] COUNT (39505) Antimicrobial MIHEAD (Normal) Comments: S = Susceptible; [...] (Abnormal) Urine Final report Culture,Comprehensive (Abnormal) EGD ([facility] S[facility]) See Note (Normal) Comments: [facility] [address] [place], [place], [address]:04 Comments: Patient: ELIZABETH TORO : 1950 (65/F) Acct Num: [id number] Phys: JonnysaraJunior Unit Num: [id number] Loc: LABSPEC Specimen: [id number] Received: 04/21/161637 Spec Type: EGD BIOPSY TISSUES [...] in one cassette. / SJ:stormy 04/22/16 TC:3 CPT:34758 HEADER OPERATION: EGD with biopsy PRE-OP DIAGNOSIS: Dysphagia TISSUE SUBMITTED: Esophageal biopsy, R/O EE MICROSCOPIC DESCRIP TION Slides are reviewed. MICROSCOPIC DIAGNOSIS Esophageal biopsy: Fragments of squamous epithelium with mild chronic inflammation. See comment. SJ:stormy 04/23/16 Signed Sivakumartrey Mallory 04/23/16 <signature on file> CERVICAL See Note (Normal) Comments: [facility] [address] [place], [address]63:15 Comments: Patient: ELIZABETH TORO : 1950 (65/F) Acct Num: [id number] Phys: Gonsalo PROCTOR,[facility] Unit Num: [id number] Loc: [facility] Specimen: [id number] Received: 04/13/16 1336 Spec Type: CER V [...] one cassette. / AM: 04/13/16 TC:5 CPT: 83117 x 2 HEADER OPERATION: Hysteroscopy, diagnostic, D [...] <signature on file> :04 Bedside Glucose Comments: [facility] LaboratoryPoint of Znwp[address] [place] [address] BEDSIDE GLU 98 mg/dL (Normal) Range: 70-110 Comments: No Action RequiredMANAGEMENT OF PATIENT CARE PER NURSING PROTOCOL :08 CBC-Complete Blood Cnt No Diff Comments: [facility] [address] [place], [address] MPV 9.4 fL (Normal) Range: [...] Range: 4.4-11.0 :08 Comprehensive Metabolic Profil Comments: [facility] [address] [place], [place], [address] GAP 8 (Normal) Range: 5-15 CO2 24.0 [...] Range: 70-110 :08 Partial Thromboplast Time Comments: [facility] [address] [place], [address] PTT 29.8 s (Normal) Range: 24.1-36.2 :08 Prothrombin Time w/INR Comments: [facility] [address] [place], [place], [address] INR 1.1 (Normal) PROTIME 13.6 s (Normal) Range: 11.7-14.9 :08 Type AND Screen Comments: Surgery Date: 04/13/16Date of Last Transfusion (if within last 3 months) NHx of Preganancy in last 3 Months NoEver experience any problems with transfusion(s)? NHx of Transfusion in last 3 Months N Reason for Type AND Screen/Red Cells: SURGERYTime: 1015SURGICAL PROCEDURE: [facility] [address]ofu[address] [place], [place], [address] Antibody Screen NEGATIVE (Normal) BLOOD TYPE GEL A NEGATIVE (Normal) ENDOMETRIAL See Note (Normal) Comments: [facility] [address] [place], [address] 6:00 BX/CURETTINGS Comments: Patient: ELIZABETH TORO : 1950 (65/F) Acct Num: [id number] Phys: Gonsalo PROCTOR,[facility] Unit Num: [id number] Loc: LABSPEC Specimen: [id number] Received: 03/26/16 - 1600 Spec Type: ENDOM [...] in one cassette. / AM:stormy 03/27/16 TC:4 CPT:45998 HEADER OPERATION: Endometrial biopsy PRE-OP DIAGNOSIS: N95.0 TISSUE SUBMITTED: EMB MICROSCOPIC DESCRIPTION Slides are r eviewed. MICROSCOPIC DIAGNOSIS Endometrial biopsy: Scant strips of benign endometrial epithelium, consistent with atrophic endometrium. Fragments of benign endocervical epithelium and mucous. SJ:stormy 03/31/16 Signed Sivakumar Mallory 03/31/16 <signature on file> 57-Czo-856439:00 PAP I-G w/ Reflex to HR Comments: CYTOLOGY INFORMATION:- CLINICAL INFORMATION: POSTMENOPAUSAL- DATE LMP/MENOPAUSE: MENOPAUSE- COLLECTION VIAL: Thin Prep Vial- LADIES LOCKER ROOM ATTENDANT SOURCE: CERVICAL/ENDOCERVICAL- COLLECTION TECHNIQUE: BRUSH/ SPATULASpeci HPV men Comment: [id number] Comment: No. of containers..01 CYTYC Thin Prep VialLabCorp (refer to report for specific site)refer to report for address and phone number HPV RFLX Comment (Normal) Comments: The HPV DNA reflex criteria were not met with this specimenresult therefore, no HPV testing was performed.Performed at: [address]Zenon [address] [id number] Director: Annamaria Menezes MD, Phone: [phone] PAPSMR Comment (Normal) Comments: The Pap smear [...] image guided system. PERFORM Comment (Normal) Comments: Adelnie Singleton, Residential Fee Appraiser (ASCP) ADEQ Comment (Normal) Comments: Satisfactory for evaluation. DIAGN Comment (Normal) Comments: NEGATIVE FOR INTRAEPITHELIAL LESION AND MALIGNANCY. 27-Koq-45680:20 Urinalysis, Complete Comments: How was Urine Obtained? RECOVERER TO SPECIFYCinc[facility] [address]mah[address] [facility] [place], [place], [address] MUCUS, URINE 0 SEEN {/hpf} (Normal) BACTERIA [...] (Normal) CLARITY Clear (Normal) COLOR Straw (Normal) 96-Rnq-775381:50 Basic Metabolic Profile (BMP) Comments: [facility] [address] [place], [place], [address] GAP 7 (Normal) Range: 5-15 CO2 26.0 [...] <126 mg/dLsuggests IMPAIRED HOMEOSTASIS per A.D.A. criteria. 61-Vvb-988117:50 CBC W/Diff, Automated Comments: [facility] [address] [place], [place], [address] Absolute Lymph 3.53 {X10_3/ul} (Normal) Range: 0.83-4.51 [...] K/mm3 (Normal) Range: 4.4-11.0 :02 Rapid Flu (34420 x 2) Influenza A Ag negative (Normal) 9-Bhn-749112:31 SJOGREN ANTIBOIDIES Comments: PATIENT NOT FASTINGPERFORMED BY: [facility]CoRobert [facility] SomersetPibzqa2775 [facility] [id number] Information: [id number] (ANTI-SS-A/ANTI-SS-B) (06756) Sjogren's Anti-SS-B <0.2 {AI} (Normal) Range: 0.0-0.9 Sjogren's Anti-SS-A <0.2 {AI} (Normal) Range: 0.0-0.9 :28 Rapid Strep Test, Office (01633) Rapid Strep Test, Office Negative (Normal) 8-Tem-262905:37 Throat Culture (25281) Comments: PATIENT NOT FASTINGPERFORMED BY: [facility]6370 [facility] [id number] Information: SRC:THRT [id number] Result 1 BETAGB (Abnormal) Comments: Beta hemolytic [...] 2011) Upper Respiratory Culture Final report (Abnormal) 7-Eic-155151:45 Basic Metabolic Profile (BMP) Comments: 'TROP' Serial specimen #1, #2, #3, or #4: [facility] [address]xqqi[address] [place], [place], [address] GAP 9 (Normal) Range: 5-15 CO2 23.0 [...] Range: 70-110 :45 CBC W/Diff, Automated Comments: [facility] [address] [place], [place], [address] Absolute Lymph 2.03 {X10_3/ul} (Normal) Range: 0.83-4.51 [...] 4.2-5.4 WBC 6.0 K/mm3 (Normal) Range: 4.4-11.0 8-Bhm-570932:45 Thyroid Stim Hormone (TSH) Comments: 'TROP' Serial specimen #1, #2, #3, or #4: [address] [place] [address] [address] [place], [address] TSH 1.50 {uIU/mL} (Normal) Range: 0.358-3.74 :45 Troponin-I Comments: 'TROP' Serial specimen #1, #2, #3, or #4: [address] [place] [address] [address]fs[address]33 [place], [address] TROPONIN-I < 0.02 ng/mL (Normal) Comments: TROPONIN-I EXPECTED VALUES <0.05 NEGATIVE 0.06 - 0.59 AT RISK OF MD > OR = 0.60 SUGGEST MD :53 Pap IG (Image Comments: Source.............Cervical;EndocervicalNo. of containers..01 CYTYC Thin Prep VialPATIENT NOT FASTINGPERFORMED BY: =G [place] [address] [facility] CentervickyDoylestown Health [id number] BY: WB L Guided) Jennifer Jordanton120 [facility] [id number] Note: PAPSMR (Normal) Comments: The Pap smear [...] of partially obscuring exudate are present.Z00.00Adeline Singleton Residential Fee Appraiser (ASCP) :01 HgA1C , Office (52571) HgA1C , Office 5.9 % (Normal) Range: 4.6 - 7.1 :00 Blood Glucose , Office (56255) Blood Glucose , Office 126 (Normal) 52-Uxt-01191:53 Thin Prep Pap Comments: Source.............Cervical;EndocervicalNo. of containers..01 CYTYC Thin Prep VialPATIENT NOT FASTINGPERFORMED BY: =G LabLinksy Usvcttzlqk301 [facility] [id number] BY: WB L (76028) [facility] Hospitalwalter JordanQpwrcysauj[address] [id number] Information: [id number] Age Gdln ACOG Testing AGE4 (Normal) Comments: <21 or >65 or no age provided :34 METABOLIC PANEL, Comments: PATIENT WAS FASTINGPERFORMED BY: LabCo Bghbxn8126 [facility] [id number] Information: [id number] COMPREHENSIVE (34574) ALT (SGPT) 18 [iU]/L (Normal) Range: 0-32 [...] Glucose, Serum 83 mg/dL (Normal) Range: 65-99 41-Pov-56456:34 CALCIFIDIOL (61011) VIT D 25 Comments: PATIENT WAS FASTINGPERFORMED BY: LabMclaren Flint6370 [facility] [id number] Vitamin D, 25-Hydroxy 59.6 ng/mL (Normal) Range: 30.0-100.0 Comments: Vitamin D deficiency has been defined by the [place] ofMedicine and an Endocrine Society practice guideline as alevel of serum 25-OH vitamin D less than 20 ng/mL (1,2).The Endocrine Society went on to further define vitamin Dinsufficiency as a level between 21 and 29 ng/mL (2).1. IOM ([place] of Medicine). 2010. Dietary reference intakes for calcium and D. [place]: The National AcademTrialReach Press.2. Leslee Chapin, Hillary PHILLIPS, et al. Evaluation, treatment, and prevention of vitamin D deficiency: an Endocrine Society clinical practice guideline. JCEM. 2010; 96(7):1911-30. :37 HgA1C , Office (97413) HgA1C , Office 6.1 % (Normal) Range: 4.6 - 7.1 :37 Blood Glucose , Office (45290) Blood Glucose , Office 107 (Normal) :27 TSH (THYROID STIMULATING Comments: PATIENT WAS FASTINGPERFORMED BY: Speedyboy [facility] Rjxlei[address] Road[address] [place] [id number] HORMONE) (24664) TSH 2.480 {uIU/mL} (Normal) Range: 0.450-4.500 : CALCIFEDIOL (72646) Comments: PATIENT WAS FASTINGPERFORMED BY: CB [facility] Eybkao5905 [address] RoadDublin [place] [id number] Vitamin D, 25-Hydroxy 16.7 ng/mL (Abnormal) Range: 30.0-100.0 Comments: Vitamin D deficiency has been defined by the [place] of[place]icine and an Endocrine Society practice guideline as alevel of serum 25-OH vitamin D less than 20 ng/mL (1,2).The Endocrine Society went on to further define vitamin Dinsufficiency as a level between 21 and 29 ng/mL (2).1. IOM ([place] of [employer]). 2010. Dietary reference intakes for calcium and D. [place]: The National Academies Press.2. Leslee Chapin, Hillary PHILLIPS, et al. Evaluation, treatment, and prevention of vitamin D deficiency: an Endocrine Society clinical practice guideline. JCEM. 2010; 96(7):1911-30. :27 LIPID PANEL (29860) Comments: PATIENT WAS FASTINGPERFORMED BY: CB [facility] Tkuduy8853 [address] RoadDublin [place] [id number] LDL/HDL Ratio 1.2 {ratio_units} (Normal) Range: 0.0-3.2 [...] Cholesterol, Total 138 mg/dL (Normal) Range: 100-199 73-Cxz-24227:27 METABOLIC PANEL, COMPREHENSIVE Comments: PATIENT WAS FASTINGPERFORMED BY: LabCoRobert [facility] Johnson [facility] Hospital SomersetLhbbou5794 [facility] [id number] (35800) ALT (SGPT) 19 [iU]/L (Normal) Range: 0-32 [...] & MANUAL Comments: PATIENT WAS FASTINGPERFORMED BY: VeraLightRobert Wood Johnson University Hospital SomersetKkuede4334 [facility] [id number] Information: [id number] DIFF (22827) Immature Grans (Abs) 0.0 {x10E3/uL} (Normal) Range: [...] 3.77-5.28 WBC 7.0 {x10E3/uL} (Normal) Range: 3.4-10.8 75-Rig-891700:31 CREATININE CLEARANCE Comments: PATIENT NOT FASTINGPERFORMED BY: VeraLightRobert Wood Johnson [facility] Hospital SomersetEcfncs2947 [facility] [id number] Information: [id number] START @9AM FINISH 01/28/15@9 AM (13382) Creatinine Clearance 53 mL/min (Abnormal) Range: 88-128 [...] Hour Urine Comments: PATIENT NOT FASTINGPERFORMED BY: ImmunotEGGFreeman Cancer InstituteEkruuz7936 [facility] [id number] (67602) Prot,24hr calculated 357.5 {mg/24_hr} (Abnormal) Range: 30.0-150.0 Protein,Total,Urine 13.0 mg/dL (Normal) Range: 0.0-15.0 :28 HgA1C , Office (52040) HgA1C , Office 5.9 % (Normal) Range: 4.6 - 7.1 :28 Blood Glucose , Office (11946) Blood Glucose , Office 136 (Normal) :53 TSH (40244) Comments: PATIENT WAS FASTINGPERFORMED BY: [facility]6370 [facility] [id number] TSH 4.370 {uIU/mL} (Normal) Range: 0.450-4.500 :53 MICROALBUMIN: CREATININE RATIO Comments: PATIENT WAS FASTINGPERFORMED BY: [facility]6370 [facility] [id number] (03279) AND (58888) Microalb/Creat Ratio 5.0 {mg/g_creat} (Normal) Range: 0.0-30.0 Microalbumin, Urine 4.5 ug/mL (Normal) Range: 0.0-17.0 Creatinine, Urine 90.5 mg/dL (Normal) Range: 15.0-278.0 :53 METABOLIC PANEL, COMPREHENSIVE Comments: PATIENT WAS FASTINGPERFORMED BY: VeraLight Vbrxef7244 [facility] [id number] (87089) ALT (SGPT) 20 [iU]/L (Normal) Range: 0-32 [...] mg/dL (Abnormal) Range: 65-99 :53 LIPID PANEL (65647) Comments: PATIENT WAS FASTINGPERFORMED BY: ZestFinance6370 [facility] [id number] LDL/HDL Ratio 1.4 {ratio_units} (Normal) Range: 0.0-3.2 [...] DIFF WBC Comments: PATIENT WAS FASTINGPERFORMED BY: LabCoRobert Wood Johnson [facility] Hospital SomersetCkuqvu2782 [facility] [id number] Information: [id number] (73952) Immature Grans (Abs) 0.0 {x10E3/uL} (Normal) Range: [...] 7.8 {x10E3/uL} (Normal) Range: 3.4-10.8 :53 CALCIFIDIOL (53905) VIT D 25 Comments: PATIENT WAS FASTINGPERFORMED BY: VeraLight Hltslr5324 [facility] [id number] Vitamin D, 25-Hydroxy 22.5 ng/mL (Abnormal) Range: 30.0-100.0 Comments: Vitamin D deficiency has been defined by the [place] ofWood County Hospitalcine and an Endocrine Society practice guideline as alevel of serum 25-OH vitamin D less than 20 ng/mL (1,2).The Endocrine Society went on to further define vitamin Dinsufficiency as a level between 21 and 29 ng/mL (2).1. IOM ([place] of Medicine). 2010. Dietary reference intakes for calcium and D. [place]: The National Academies Press.2. Azael MF, Leslee LEMON, Hillary PHILLIPS, et al. Evaluation, treatment, and prevention of vitamin D deficiency: an Endocrine Society clinical practice guideline. JCEM. 2010; 96(7):1911-30. :22 HgA1C , Office (65735) HgA1C , Office 6.0 % (Normal) Range: 4.6 - 7.1 :22 Blood Glucose , Office (23552) Blood Glucose , Office 132 (Normal) :27 Blood Glucose , Office (50045) Blood Glucose , Office 114 (Normal) :27 HgA1C , Office (33123) HgA1C , Office 5.9 % (Normal) Range: 4.6 - 7.1 :00 Basic Metabolic Panel (8) Comments: PATIENT NOT FASTINGPERFORMED BY: LabCoRobert Wood Johnson [facility] Hospital SomersetGzbown2863 [facility] [id number] BY: [address] [id number] Calcium, Serum 9.8 mg/dL (Normal) Range: 8.6-10.2 [...] 287 {mOsmol/kg} Comments: PATIENT NOT FASTINGPERFORMED BY: [employer]70 [facility] [id number] BY: VeraLight[address] [id number] 00 (Normal) Range: 280-301 : Osmolality, Urine 259 {mOsmol/kg} Comments: PATIENT NOT FASTINGPERFORMED BY: [employer]70 [facility] [id number] BY: VeraLight[address] [id number] 00 (Normal) Comments: 24 hr : 300 - 900 Random: 50 - 1400 After 12hr fluid restriction: >850 : Sodium, Urine 11 mmol/L (Normal) Comments: PATIENT NOT FASTINGPERFORMED BY: [employer]70 [facility] [id number] BY: VeraLight[address] [id number] 00 7-Plo-778581:06 Metabolic Panel, Basic Comments: PATIENT NOT FASTINGPERFORMED BY: [employer]70 [facility] [id number] Information: [id number] (04852) Calcium, Serum 9.9 mg/dL (Normal) Range: 8.6-10.2 [...] Glucose, Serum 108 mg/dL (Abnormal) Range: 65-99 91-Qob-678462:34 CBCD Comments: pt has apt with db [...] <0.05 NEGATIVE0.06 - 0.59 AT RISK OF MD> OR = 0.60 SUGGEST MD 98-Cng-215271:34 TSH 2.32 {uIU/mL} (Normal) Comments: 'TROP' Serial specimen #1, #2, #3, or #4: 1 Range: 0.358-3.74 01-May-20140:00 Microscopic Examination Comments: PATIENT WAS FASTINGPERFORMED BY: [facility] Urzxrk7380 [address] [place] [id number] Bacteria Few (Normal) Mucus Threads Present (Normal) Epithelial Cells (non renal) 0-10 {/hpf} (Normal) Range: 0 - 10 RBC 0-2 {/hpf} (Normal) Range: 0 - 2 WBC 11-30 {/hpf} (Abnormal) Range: 0 - 5 05-Vgr-837273:15 TSH (91587) Comments: PATIENT WAS FASTINGPERFORMED BY: [facility] Bcqkph4442 [address] RoadDublin [place] [id number] TSH 3.310 {uIU/mL} (Normal) Range: 0.450-4.500 21-Drr-025526:15 CALCIFIDIOL (08899) VIT D 25 Comments: PATIENT WAS FASTINGPERFORMED BY: CB [facility] Cpbrnk2607 [address] [facility] Systembl[facility] [place] [id number] Vitamin D, 25-Hydroxy 35.7 ng/mL (Normal) Range: 30.0-100.0 Comments: Vitamin D deficiency has been defined by the [place] ofWood County Hospitalcine and an Endocrine Society practice guideline as alevel of serum 25-OH vitamin D less than 20 ng/mL (1,2).The Endocrine Society went on to further define vitamin Dinsufficiency as a level between 21 and 29 ng/mL (2).1. IOM ([place] of Medicine). 2010. Dietary reference intakes for calcium and D. [place]: The National Academies Press.2. Azael MF, Leslee NC, Hillary PHILLIPS, et al. Evaluation, treatment, and prevention of vitamin D deficiency: an Endocrine Society clinical practice guideline. JCEM. 2010; 96(7):1911-30. 75-Mkl-103380:15 URINALYSIS, W/ MICRO (12835) Comments: PATIENT WAS FASTINGPERFORMED BY: LabCoRobert Wood Johnson [facility] Hospital SomersetWxjmcz6669 [facility] [id number] Microscopic Examination See below: (Normal) Nitrite, Urine Positive (Abnormal) Bilirubin Negative (Normal) Urobilinogen,Semi-Qn 0.2 mg/dL (Normal) Range: 0.0-1.9 Ketones Negative (Normal) Occult Blood Negative (Normal) Glucose Negative (Normal) Protein Negative (Normal) Appearance Clear (Normal) WBC Esterase 2+ (Abnormal) pH 6.5 (Normal) Range: 5.0-7.5 Urine-Color Yellow (Normal) Specific [place] 1.015 (Normal) Range: 1.005-1.030 87-Gie-329749:15 METABOLIC PANEL, COMPREHENSIVE Comments: PATIENT WAS FASTINGPERFORMED BY: [facility]CoRobert [facility] SomersetOhonrf8907 [facility] [id number] (14631) ALT (SGPT) 19 [iU]/L (Normal) Range: 0-32 [...] Glucose, Serum 118 mg/dL (Abnormal) Range: 65-99 23-Mai-585889:15 LIPID PANEL (48796) Comments: PATIENT WAS FASTINGPERFORMED BY: VeraLightRobert Wood Johnson University Hospital SomersetIrryvh2149 [facility] [id number] LDL/HDL Ratio 1.7 {ratio_units} (Normal) Range: 0.0-3.2 LDL Cholesterol Calc 90 mg/dL (Normal) Range: 0-99 VLDL Cholesterol Hillary 33 mg/dL (Normal) Range: 5-40 HDL Cholesterol 53 mg/dL (Normal) Comments: According to ATP-III Guidelines, HDL-C >59 mg/dL is considered anegative risk factor for CHD. Triglycerides 166 mg/dL (Abnormal) Range: 0-149 Cholesterol, Total 176 mg/dL (Normal) Range: 100-199 62-Ths-092214:15 CBC WITH MANUAL DIFF Comments: PATIENT WAS FASTINGPERFORMED BY: LabCo Tvngfa3659 [facility] [id number] Information: [id number] (85381) Immature Grans (Abs) 0.0 {x10E3/uL} (Normal) Range: [...] 3.77-5.28 WBC 7.0 {x10E3/uL} (Normal) Range: 3.4-10.8 26-Jht-570345:20 Blood Glucose , Office (18733) Blood Glucose , Office 102 (Normal) 52-Rzc-277675:20 HgA1C , Office (51082) HgA1C , Office 6.0 % (Normal) Range: 4.6 - 7.1 0-Lim-279021:27 URINE VERÓNICA CULTURE-IDENTIFICATN Comments: PATIENT NOT FASTINGPERFORMED BY: [facility]CoRobert [facility] SomersetMoaqoa6097 [facility] [id number] Information: [id number] (53725) Result 1 NG36 (Normal) Comments: No growth in 36 - 48 hours. Urine Culture,Comprehensive Final report (Normal) 7-Kaa-045117:03 URINALYSIS (72771) URINALYSIS neg for all (Normal) 68-Fsu-88315:31 URINE VERÓNICA CULTURE-SHARIFA COL Comments: PATIENT NOT FASTINGPERFORMED BY: LabCoRobert [facility] Hospital SomersetApzwxt1139 [facility] [id number] Information: SRC:UR [id number] COUNT (49873) Antimicrobial MIHEAD (Normal) Comments: S = Susceptible; [...] mL (Normal) Urine Final report Culture,Comprehensive (Normal) 82-Tec-57222:26 Urinalysis, Office (69713) UA - LEUKOCYTE ESTERASE Moderate (Normal) UA - NITRITE Negative (Normal) URINE UROBILINGN SHARIFA TIMED Normal mg/dL (Normal) UA - PROTEIN Negative mg/dL (Normal) UA - PH 5 (Abnormal) UA - BLOOD Hemolyzed Small (Normal) UA - SPECIFIC GRAVITY 1.025 (Normal) UA - KETONES Negative mg/dL (Normal) UA - BILIRUBIN Negative (Normal) UA - GLUCOSE Negative (Normal) :52 LIPID PANEL (83063) Comments: PATIENT WAS FASTINGPERFORMED BY: [employer]70 [address] [facility] [id number] Information: [id number] LDL/HDL Ratio 2.1 {ratio_units} (Normal) Range: 0.0-3.2 LDL Cholesterol Calc 111 mg/dL (Abnormal) Range: 0-99 VLDL Cholesterol Hillary 31 mg/dL (Normal) Range: 5-40 HDL Cholesterol 53 mg/dL (Normal) Comments: According to ATP-III Guidelines, HDL-C >59 mg/dL is considered anegative risk factor for CHD. Triglycerides 156 mg/dL (Abnormal) Range: 0-149 Cholesterol, Total 195 mg/dL (Normal) Range: 100-199 :52 HEPATIC FUNCTION PANEL (92905) Comments: PATIENT WAS FASTINGPERFORMED BY: [employer]70 [facility] [id number] ALT (SGPT) 17 [iU]/L (Normal) Range: 0-32 AST (SGOT) 23 [iU]/L (Normal) Range: 0-40 Alkaline Phosphatase, S 57 [iU]/L (Normal) Range: 39-117 Bilirubin, Direct 0.08 mg/dL (Normal) Range: 0.00-0.40 Bilirubin, Total 0.3 mg/dL (Normal) Range: 0.0-1.2 Albumin, Serum 4.3 g/dL (Normal) Range: 3.6-4.8 Protein, Total, Serum 7.2 g/dL (Normal) Range: 6.0-8.5 :52 CALCIFEDIOL (35644) Comments: PATIENT WAS FASTINGPERFORMED BY: [employer] Rrjlum6719 [facility] [id number] Vitamin D, 25-Hydroxy 13.8 ng/mL (Abnormal) Range: 30.0-100.0 Comments: Vitamin D deficiency has been defined by the [place] of[place]icine and an Endocrine Society practice guideline as alevel of serum 25-OH vitamin D less than 20 ng/mL (1,2).The Endocrine Society went on to further define vitamin Dinsufficiency as a level between 21 and 29 ng/mL (2).1. IOM ([place] of Medicine). 2010. Dietary reference intakes for calcium and D. [place]: The National Academies Press.2. Azael MF, Leslee NC, Hillary PHILLIPS, et al. Evaluation, treatment, and prevention of vitamin D deficiency: an Endocrine Society clinical practice guideline. JCEM. 2010; 96(7):1911-30. 60-Bne-428145:38 Blood Glucose , Office (96811) Blood Glucose , Office 114 (Normal) 39-Pus-717648:38 HgA1C , Office (58196) HgA1C , Office 5.8 % (Normal) Range: 4.6 - 7.1 06-Klf-445058:23 Urinalysis, Office (53449) UA - BILIRUBIN Negative (Normal) UA - BLOOD Hemolyzed Trace (Normal) UA - GLUCOSE Negative (Normal) UA - KETONES Negative mg/dL (Normal) UA - LEUKOCYTE ESTERASE Small (Normal) UA - NITRITE Negative (Normal) UA - PH 5.0 (Normal) UA - PROTEIN Negative mg/dL (Normal) UA - SPECIFIC GRAVITY 1.025 (Normal) URINE UROBILINGN SHARIFA TIMED Normal mg/dL (Normal) 36-Sin-377340:50 Metabolic Panel, Basic Comments: PATIENT NOT FASTINGPERFORMED BY: [facility]Co Mijsuw9342 [facility] [id number] Information: [id number] (40764) Calcium, Serum 9.9 mg/dL (Normal) Range: 8.6-10.2 [...] Glucose, Serum 84 mg/dL (Normal) Range: 65-99 72-Bms-567415:39 BRAIN WITHOUT CONTRAST Radiology Report See Note [...] Sweeney M.D.July 12, 2013 at 4:19:02 PM [id number] Signed PV/PV If you are the referring physician and would like to consult with theradiologist who provided this interpretation, please contact Petrona molina M.D. at [phone]. If this radiologist is unavailable, youwillbe directed to another radiologist to assist. If you are a patient with a question regarding this report, pleasecontactyour referring physician directly. Professional Interpretation Provided By: [employer], Phone , These documents contain legally protected [...] 07/12/13 1622 Sign by: Petrona Meek MD 5-Hbi-484912:39 CRE GFRAA 45 mL/min (Abnormal) GFR 37 [...] 3000 mL (Normal) UPCT 24.0 {HOURS} (Normal) 9-Joh-465765:39 Metabolic Panel, Basic Comments: recheck in one week; PATIENT NOT FASTINGPERFORMED BY: LabCoRobert [facility] Hospital SomersetXvvknk3825 [facility] [id number] Information: [id number] (35840) Calcium, Serum 9.7 mg/dL (Normal) Range: 8.6-10.2 [...] Glucose, Serum 109 mg/dL (Abnormal) Range: 65-99 29-Exp-57947:50 Metabolic Panel, Basic Comments: PATIENT NOT FASTINGPERFORMED BY: LabCoRobert [facility] Hospital SomersetYnzaoy8588 [facility] [id number] Information: [id number] (24999) Calcium, Serum 9.5 mg/dL (Normal) Range: 8.6-10.2 [...] (Abnormal) Range: 65-99 :29 HgA1C , Office (96586) HgA1C , Office 5.7 % (Normal) Range: 4.6 - 7.1 92-Lbr-314602:14 TSH (86180) Comments: PATIENT NOT FASTINGPERFORMED BY: [facility]6370 [facility] [id number] TSH 2.850 {uIU/mL} (Normal) Range: 0.450-4.500 :14 CBC, Platelets & Auto Comments: PATIENT NOT FASTINGPERFORMED BY: [facility]6370 [facility] [id number] Information: [id number] Diff (54006) Immature Grans (Abs) 0.0 {x10E3/uL} (Normal) Range: [...] 3.77-5.28 WBC 7.5 {x10E3/uL} (Normal) Range: 4.0-10.5 97-Vpz-370736:14 Metabolic Panel, Comprehensive Comments: PATIENT NOT FASTINGPERFORMED BY: [facility] Offjbw8955 [facility] [id number] (14438) ALT (SGPT) 19 [iU]/L (Normal) Range: 0-32 [...] Glucose, Serum 105 mg/dL (Abnormal) Range: 65-99 03-Hyd-418640:06 URINE VERÓNICA CULTURE-SHARIFA COL Comments: PATIENT NOT FASTINGPERFORMED BY: ImmunotEGGMclaren Flint6370 [facility] [id number] Information: SRC:UR ADD [id number] COUNT (45281) Antimicrobial MIHEAD (Normal) Comments: S = Susceptible; [...] mL (Normal) Urine Final report Culture,Comprehensive (Normal) 78-Osr-940050:09 Urinalysis, Office (15090) UA - BILIRUBIN Negative (Normal) UA - BLOOD Hemolyzed Moderate (Normal) UA - GLUCOSE Negative (Normal) UA - KETONES Negative mg/dL (Normal) UA - LEUKOCYTE ESTERASE Small (Normal) UA - NITRITE Negative (Normal) UA - PH 6.0 (Normal) UA - PROTEIN Negative mg/dL (Normal) UA - SPECIFIC GRAVITY 1.005 (Normal) URINE UROBILINGN SHARIFA TIMED 2 mg/dL (Normal) 0-Xpi-910266:04 Renal function Panel Comments: PATIENT NOT FASTINGPERFORMED BY: [facility]6370 [facility] [id number] Information: [id number] (18802) Albumin, Serum 4.1 g/dL (Normal) Range: 3.6-4.8 [...] Glucose, Serum 110 mg/dL (Abnormal) Range: 65-99 76-Grb-100189:22 CALCIFEDIOL (13970) Comments: PATIENT NOT FASTINGPERFORMED BY: [employer]6370 We[place]ush[address] [place] [id number] Vitamin D, 25-Hydroxy 16.7 ng/mL (Abnormal) Range: 30.0-100.0 Comments: Vitamin D deficiency has been defined by the [place] ofWood [facility] Hospitalcine and an Endocrine Society practice guideline as alevel of serum 25-OH vitamin D less than 20 ng/mL (1,2).The Endocrine Society went on to further define vitamin Dinsufficiency as a level between 21 and 29 ng/mL (2).1. IOM ([place] of Medicine). 2010. Dietary reference intakes for calcium and D. [place]: The National Academies Press.2. Azael MF, Leslee LEMON, Hillary PHILLIPS, et al. Evaluation, treatment, and prevention of vitamin D deficiency: an Endocrine Society clinical practice guideline. JCEM. 2010; 96(7):1911-30. 51-Trn-738853:22 MAGNESIUM (91626) Comments: PATIENT NOT FASTINGPERFORMED BY: Speedyboy [facility] Ghhgzo8749 Monk RoadDublin [place] [id number] Magnesium, Serum 2.3 mg/dL (Normal) Range: 1.6-2.6 :22 T4, FREE (THYROXINE) (70191) Comments: PATIENT NOT FASTINGPERFORMED BY: [facility] Sovqoy4762 Monk RoadDublin [place] [id number] T4,Free(Direct) 1.50 ng/dL (Normal) Range: 0.82-1.77 :22 T3, FREE (TRIDOTHYRONINE) (29139) Comments: PATIENT NOT FASTINGPERFORMED BY: [facility]6370 [facility] [id number] Triiodothyronine,Free,Serum 2.6 pg/mL (Normal) Range: 2.0-4.4 :22 TSH (13600) Comments: PATIENT NOT FASTINGPERFORMED BY: [facility]6370 [facility] [id number] TSH 1.920 {uIU/mL} (Normal) Range: 0.450-4.500 :22 CBC, Platelets & Auto Comments: PATIENT NOT FASTINGPERFORMED BY: [facility]6370 [facility] [id number] Information: [id number] Diff (09077) Immature Grans (Abs) 0.0 {x10E3/uL} (Normal) Range: [...] 3.77-5.28 WBC 8.5 {x10E3/uL} (Normal) Range: 4.0-10.5 58-Vzm-018213:22 Metabolic Panel, Comprehensive Comments: PATIENT NOT FASTINGPERFORMED BY: LabCoRobert [facility] Hospital SomersetVlnjog3242 [facility] [id number] (14788) ALT (SGPT) 21 [iU]/L (Normal) Range: 0-32 [...] Glucose, Serum 97 mg/dL (Normal) Range: 65-99 4-Fjd-926536:20 METABOLIC PANEL, COMPREHENSIVE Comments: PATIENT WAS FASTINGPERFORMED BY: EMIL [employer] Kopbpx0583 [facility] [id number] (10598) ALT (SGPT) 19 [iU]/L (Normal) Range: 0-32 [...] Glucose, Serum 102 mg/dL (Abnormal) Range: 65-99 6-Vgb-984314:20 CBC WITH MANUAL DIFF Comments: PATIENT WAS FASTINGPERFORMED BY: VeraLightRobert Wood Johnson [facility] Hospital SomersetWrebav7304 [facility] [id number] Information: [id number] (04498) Immature Grans (Abs) 0.0 {x10E3/uL} (Normal) Range: [...] 3.77-5.28 WBC 7.4 {x10E3/uL} (Normal) Range: 3.4-10.8 1-Orf-048588:20 LIPID PANEL (26210) Comments: PATIENT WAS FASTINGPERFORMED BY: [facility] Atvyre3690 [facility] [id number] LDL/HDL Ratio 2.0 {ratio_units} (Normal) Range: 0.0-3.2 LDL Cholesterol Calc 109 mg/dL (Abnormal) Range: 0-99 VLDL Cholesterol Hillary 35 mg/dL (Normal) Range: 5-40 HDL Cholesterol 54 mg/dL (Normal) Comments: According to ATP-III Guidelines, HDL-C >59 mg/dL is considered anegative risk factor for CHD. Triglycerides 175 mg/dL (Abnormal) Range: 0-149 Cholesterol, Total 198 mg/dL (Normal) Range: 100-199 6-Qry-867282:20 TSH (11190) Comments: PATIENT WAS FASTINGPERFORMED BY: LabCoGallup Indian Medical CenterCbiovw6979 [address] [place] [id number] TSH 2.720 {uIU/mL} (Normal) Range: 0.450-4.500 90-Dzi-316630:22 HgA1C , Office (34766) HgA1C , Office 6.0 % (Normal) Range: 4.6 - 7.1 09-Bxy-187074:22 Blood Glucose , Office (69073) Blood Glucose , Office 249 (Normal) Comments: has eaten in last 2h 52-Wvi-795744:20 CHEST, PA AND LATERAL Radiology Report See [...] Signed:Anibal Lan M.D.November 022012 at 8:14:34 AM [phone] Signed GP/GP If you are the referring physician and would like to consult with theradiologist who provided this interpretation, please contact Eliecer uBi M.D. at [phone]. If this radiologist is unavailable, youwill be directed to another radiologist to assist. If you are a patient with a question regarding this report, pleasecontactyour referring physician directly. Professional Interpretation Provided By: [employer], Phone , These documents contain legally protected [...] on 11/22/12817 Sign by: Anibal Lan MD 83-Imh-37313:19 VERÓNICA CULTURE-OTHER (15508) Comments: PATIENT NOT FASTINGPERFORMED BY: Speedyboy LabCoRobert Wood Johnson [facility] Hospital SomersetYwtyaz3871 [facility] [id number] Information: SRC:THRT [id number] Result 1 RRF (Normal) Comments: Routine respiratory duyen Upper Respiratory Culture Final report (Normal) 20-Ipv-803078:33 Rapid Strep Test, Office (77195) Rapid Strep Test, Office Negative (Normal) 8-Fpw-624553:50 Celiac Disease Comprehensive Comments: PERFORMED BY: Speedyboy LabCoBioNumerik PharmaceuticalsTygjng9635 [facility] [id number] Immunoglobulin A, Qn, 364 mg/dL (Normal) Range: [...] Serum 4.0 mmol/L Comments: PERFORMED BY: [facility] Nyxkct2014 [facility] [id number] 4:50 (Normal) Range: 3.5-5.2 0-Jzn-607585:30 CBCMD ANC 3.7 3/uL (Normal) Range: 2.0-7.7 [...] 4.2-5.4 WBC 7.0 {k/mm3} (Normal) Range: 4.4-11.0 7-Plo-022956:30 CMP GAP 11 (Normal) Range: 5-15 CO2 [...] 7-18 GLU 93 mg/dL (Normal) Range: 70-110 2-Xvn-628021:30 LIPID LDL 108 mg/dL (Normal) Range: 0-130 [...] Very High > or = 500 mg/dL 6-Alz-091738:30 MIACRE MIALB 5.8 mg/L (Normal) tMICROCREAT 9.5 {mg/g_CRE} (Normal) CREU 60.7 mg/dL (Normal) 8-Dhz-641637:30 TSH 0.75 {uIU/mL} (Normal) Range: 0.358-3.74 :54 HgA1C , Office (17726) HgA1C , Office 5.5 % (Normal) Range: 4.6 - 7.1 27-Boo-50745:54 Blood Glucose , Office (37529) Blood Glucose , Office 116 (Normal) 55-Zlu-372308:26 URINE VERÓNICA CULTURE-SHARIFA COL Comments: PATIENT NOT FASTINGPERFORMED BY: [facility] Sgvtft8993 [address] [place] [id number] Information: SRC:CLAUDINE [id number] COUNT (55100) Result 1 MUG (Normal) Comments: Mixed urogenital flora50,000-100,000 colony forming units per mL Urine Final report (Normal) Culture,Comprehensive 60-Evu-419082:46 Urinalysis, Office (12768) UA - BILIRUBIN Small (Normal) UA - BLOOD Hemolyzed Small (Normal) UA - GLUCOSE Negative (Normal) UA - KETONES Small mg/dL (Normal) UA - LEUKOCYTE ESTERASE Moderate (Normal) UA - NITRITE Negative (Normal) UA - PH 6.0 (Normal) UA - PROTEIN Trace mg/dL (Normal) UA - SPECIFIC GRAVITY 1.025 (Normal) URINE UROBILINGN SHARIFA TIMED Normal mg/dL (Normal) 05-Ryh-451581:55 CHEST, PA AND LATERAL Radiology Report See [...] radiologist regarding this report, please call our [id number] line @ Dictated on 1518 by Isiah Lan MDranscribed on 11/23/11 1611 by ITS IMPORTSign by Anibal Lan MD on 11/23/11 1611 Sign by: Edyta PROCTORAnibal :51 Urinalysis, Office (39465) UA - BILIRUBIN Negative (Normal) UA - BLOOD Hemolyzed Small (Normal) UA - GLUCOSE Negative (Normal) UA - KETONES Negative mg/dL (Normal) UA - LEUKOCYTE ESTERASE Large (Normal) UA - NITRITE Negative (Normal) UA - PH 7.0 (Normal) UA - PROTEIN Negative mg/dL (Normal) UA - SPECIFIC GRAVITY 1.020 (Normal) URINE UROBILINGN SHARIFA TIMED 2 mg/dL (Normal) :51 HgA1C , Office (79681) HgA1C , Office 6.2 % (Normal) Range: 4.6 - 7.1 :50 Blood Glucose , Office (97003) Blood Glucose , Office 119 (Normal) :55 Urinalysis, Office (36573) UA - BILIRUBIN Negative (Normal) UA - [...] Ultrasound evaluation of the right upper quadrant [facility] with real-time ultrasonography and static [...] by Marta PROCTOR,Gela on 06/24/112035 Sign by: Matra PROCTOR,Gela Actin (Smooth Muscle) 13 {Units} (Normal) Comments: PERFORMED BY: [employer] [place] [id number] :58 Antibody Range: 0-19 Comments: Negative 0 - 19 Weak positive 20 - 30 Moderate to strong positive >30 . Actin Antibodies are found in 52-85% of patients with autoimmune hepatitis or chronic active hepatitis and in 22% of patients with primary biliary cirrhosis. :58 Antinuclear Antibodies Direct Comments: PERFORMED BY: [employer]6370 [employer] [place] [id number] GAYATRI Direct Negative (Normal) :5 Ceruloplasmin 31.6 mg/dL (Normal) Comments: PERFORMED BY: [employer] [place] [id number] Range: 16.0-45.0 :5 Ferritin, Serum 440 ng/mL (Abnormal) Comments: PERFORMED BY: [employer] [place] [id number] Range: 13-150 :58 Hepatitis Panel (4) Comments: PERFORMED BY: [facility]6370 [facility] [id number] Hep C Virus Ab 0.1 {s/co_ratio} (Normal) Range: 0.0-0.9 Comments: Negative: < 0.8 Indeterminate 0.8 - 0.9 Positive: > 0.9 . In order to reduce the incidence of a false positive result, the [facility] recommends that all s/co ratios between 1.0 and 10.9 be confirmed with additional RIBA or PCR testing. Hep B Core Ab, IgM Negative (Normal) HBsAg Screen Negative (Normal) Hep A Ab, IgM Negative (Normal) 51-Dts-77370:58 Iron and TIBC Comments: PERFORMED BY: [facility]6370 [facility] [id number] Iron Saturation 37 % (Normal) Range: 15-55 Iron, Serum 96 ug/dL (Normal) Range: 35-155 UIBC 163 ug/dL (Normal) Range: 150-375 Iron Bind.Cap.(TIBC) 259 ug/dL (Normal) Range: 250-450 :58 Platelet Count on Citrated Comments: PERFORMED BY: [facility]6370 [facility] [id number] Bld Plt Count, Citrated Bld 216 {X10E3/uL} Range: 140-415 (Normal) 11-Jun-2011 Written Authorization WAR (Normal) Comments: PERFORMED BY: [facility]6370 [facility] [id number] 9:58 Comments: Written Authorization Received.Authorization received from [facility] [id number] by Elina Swain :30 HgA1C , Office (86916) HgA1C , Office 6.7 % (Normal) Range: 4.6 - 7.1 :30 Blood Glucose , Office (18603) Blood Glucose , Office 159 (Normal) :15 METABOLIC PANEL, COMPREHENSIVE Comments: PATIENT WAS FASTINGPERFORMED BY: [facility]6370 [facility] [id number] (94044) ALT (SGPT) 51 [iU]/L (Abnormal) Range: 0-40 [...] mg/dL (Abnormal) Range: 65-99 03-Jun-20119:15 LIPID PANEL (74869) Comments: PATIENT WAS FASTINGPERFORMED BY: [facility] Prissz6507 [facility] [id number] LDL/HDL Ratio 1.8 {ratio_units} (Normal) Range: 0.0-3.2 [...] MANUAL DIFF Comments: PATIENT WAS FASTINGPERFORMED BY: LabCoRobert Wood Johnson [facility] Hospital SomersetOyexeg0732 [facility] [id number] Information: [id number] (12360) Immature Grans (Abs) 0.0 {x10E3/uL} (Normal) Range: [...] Hepatic Function Panel (7) Comments: PERFORMED BY: VeraLightRobert Wood Johnson [facility] Hospital SomersetPbhzui2414 [facility] [id number] ALT (SGPT) 63 [iU]/L (Abnormal) Range: 0-40 Alkaline Phosphatase, S 63 [iU]/L (Normal) Range: 25-165 AST (SGOT) 53 [iU]/L (Abnormal) Range: 0-40 Bilirubin, Direct 0.13 mg/dL (Normal) Range: 0.00-0.40 Bilirubin, Total 0.4 mg/dL (Normal) Range: 0.0-1.2 Albumin, Serum 4.5 g/dL (Normal) Range: 3.6-4.8 Protein, Total, Serum 7.8 g/dL (Normal) Range: 6.0-8.5 :26 Hepatitis Panel (4) Comments: PERFORMED BY: VeraLightRobert Wood Johnson [facility] Hospital SomersetXqepqs0582 [facility] [id number] Hep C Virus Ab <0.1 {s/co_ratio} (Normal) [...] (Normal) Hep A Ab, IgM Negative (Normal) 6-Nny-457530:04 LIVER D BILI 0.11 mg/dL (Normal) Range: 0.00-0.30 T BILI 0.30 mg/dL (Normal) Range: 0.00-1.00 ALK P 57 U/L (Normal) Range: 50-136 ALT 68 U/L (Normal) Range: 12-78 ALB 4.0 g/dL (Normal) Range: 3.4-5.0 AST 53 U/L (Abnormal) Range: 15-37 T PROT 8.0 g/dL (Normal) Range: 6.4-8.2 :59 HgA1C , Office (76717) HgA1C , Office 6.6 % (Normal) Range: 4.6 - 7.1 :59 Blood Glucose , Office (56632) Blood Glucose , Office 124 (Normal) :17 HgA1C , Office (91844) HgA1C , Office 6.4 % (Normal) Range: 4.6 - 7.1 :17 Blood Glucose , Office (33433) Blood Glucose , Office 141 (Normal) :17 Hemoglobin Glyclated (HGB A1C) Comments: PATIENT WAS FASTINGPERFORMED BY: VeraLightGallup Indian Medical CenterXmuacl6260 [facility] [id number] (35558) Hemoglobin A1c 6.0 % (Abnormal) Range: 4.8-5.6 Comments: Increased risk for diabetes: 5.7 - 6.4 Diabetes: >6.4 Glycemic control for adults with diabetes: <7.0 :17 MICROALBUMIN: CREATININE RATIO Comments: PATIENT WAS FASTINGPERFORMED BY: VeraLightGallup Indian Medical CenterZydhxk1657 [facility] [id number] (77298) AND (13169) Microalb/Creat Ratio 2.9 {mg/g_creat} (Normal) Range: 0.0-30.0 Creatinine, Urine 49.0 mg/dL (Normal) Range: 15.0-278.0 Microalbumin, Urine 1.4 ug/mL (Normal) Range: 0.0-17.0 :17 METABOLIC PANEL, COMPREHENSIVE Comments: PATIENT WAS FASTINGPERFORMED BY: [employer] Aaosba9720 [facility] [id number] (53723) Alkaline Phosphatase, S 61 [iU]/L (Normal) Range: [...] Glucose, Serum 116 mg/dL (Abnormal) Range: 65-99 67-Dpp-665155:17 LIPID PANEL (07583) Comments: PATIENT WAS FASTINGPERFORMED BY: LabCoRobert Wood Johnson [facility] SomersetMckhyt6910 [facility] [id number] LDL/HDL Ratio 2.2 {ratio_units} (Normal) Range: 0.0-3.2 HDL Cholesterol 50 mg/dL (Normal) Comments: According to ATP-III Guidelines, HDL-C >59 mg/dL is considered anegative risk factor for CHD. LDL Cholesterol Calc 109 mg/dL (Abnormal) Range: 0-99 VLDL Cholesterol Hillary 56 mg/dL (Abnormal) Range: 5-40 Cholesterol, Total 215 mg/dL (Abnormal) Range: 100-199 Triglycerides 282 mg/dL (Abnormal) Range: 0-149 83-Viy-736947:17 CBC WITH MANUAL DIFF (81144) Comments: PATIENT WAS FASTINGPERFORMED BY: LabRainforestRobert Wood Johnson [facility] Hospital SomersetCgglhz3240 [facility] [id number] Immature Grans (Abs) 0.0 {x10E3/uL} (Normal) Range: [...] (Normal) Range: 4.0-10.5 :57 Folic Acid Serum (75892) Comments: PATIENT NOT FASTINGPERFORMED BY: VeraLightRobert Wood Johnson [facility] Hospital SomersetOesbai5598 [facility] [id number] Folate (Folic Acid), Serum 12.6 ng/mL (Normal) Comments: Indeterminate: 2.2 - 3.0Deficient: <2.2 :57 Vitamin B-12 (cyanocobalamin) Comments: PATIENT NOT FASTINGPERFORMED BY: [place] 4097070 [facility] [id number] (75576) Vitamin B12 551 pg/mL (Normal) Range: 211-946 :57 CBC with manual diff Comments: PATIENT NOT FASTINGPERFORMED BY: [facility]6370 [facility] [id number] Information: [id number] (31276) Baso (Absolute) 0.1 {x10E3/uL} (Normal) Range: 0.0-0.2 [...] 3.80-5.10 WBC 9.4 {x10E3/uL} (Normal) Range: 4.0-10.5 68-Fpo-118587:57 Metabolic Panel, Comprehensive Comments: PATIENT NOT FASTINGPERFORMED BY: LabCoRobert Wood Johnson [facility] Hospital SomersetVzyuhi3944 [facility] [id number] (73788) ALT (SGPT) 18 [iU]/L (Normal) Range: 0-40 [...] mg/dL (Abnormal) Range: 65-99 :57 DRUG ASSAY-LITHIUM (62222) Comments: PATIENT NOT FASTINGPERFORMED BY: [employer] Vviqmq0839 [facility] [id number] [place] ([place]), Serum 1.0 mmol/L (Normal) Range: 0.6-1.4 Comments: Detection Limit = 0.1<0.1 indicates None Detected :57 T4, FREE (THYROXINE) (79316) Comments: PATIENT NOT FASTINGPERFORMED BY: [employer] [id number] [facility] [id number] T4,Free(Direct) 1.17 ng/dL (Normal) Range: 0.82-1.77 :57 T3, FREE (TRIDOTHYRONINE) (72846) Comments: PATIENT NOT FASTINGPERFORMED BY: [employer] Wqswxi7339 [facility] [id number] Triiodothyronine,Free,Serum 2.1 pg/mL (Normal) Range: 2.0-4.4 :57 TSH (27392) Comments: PATIENT NOT FASTINGPERFORMED BY: [employer] Fqoflz9519 [facility] [id number] TSH 4.080 {uIU/mL} (Normal) Range: 0.450-4.500 44-Jvz-935743:43 HgA1C , Office (22073) HgA1C , Office 5.3 % (Normal) Range: 4.6 - 7.1 :43 Blood Glucose , Office (09413) Blood Glucose , Office 125 (Normal) :4 [...] 136-145 GLU 84 mg/dL (Normal) Range: 70-110 01-Zwl-792440:42 LI 0.60 mmol/L (Normal) Comments: Therapeutic Range: 0.60 - 1.20 07-Kld-463008:58 Thin prep Pap Comments: Source.............Cervical;EndocervicalNo. of containers..01 CYTYC Thin Prep VialPATIENT NOT FASTINGPERFORMED BY: [facility] [address] [id number] Information: [id number] ([id number]) Note: PAPSMR (Normal) Comments: The Pap smear [...] atrophy.V 72.31 ; Routine gynecological examinationRaxander Gonzalez Residential Fee Appraiser (ASCP) 13-Pgu-632770:00 TSH (76757) Comments: PATIENT NOT FASTINGPERFORMED BY: CB [facility] Vhiwpp2990 [facility] [id number] TSH 3.440 {uIU/mL} (Normal) Range: 0.450-4.500 85-Ecq-397373:00 CBC (Auto) (04385) Comments: PATIENT NOT FASTINGPERFORMED BY: [facility]6370 [facility] [id number] Information: [id number] Platelets 258 {x10E3/uL} (Normal) Range: 140-415 RDW 13.6 % (Normal) Range: 11.7-15.0 Hematocrit 43.5 % (Normal) Range: 34.0-44.0 MCH 31.6 pg (Normal) Range: 27.0-34.0 MCHC 33.6 g/dL (Normal) Range: 32.0-36.0 MCV 94 fL (Normal) Range: 80-98 Hemoglobin 14.6 g/dL (Normal) Range: 11.5-15.0 RBC 4.61 {x10E6/uL} (Normal) Range: 3.80-5.10 WBC 8.6 {x10E3/uL} (Normal) Range: 4.0-10.5 11-Qtv-151687:00 Metabolic Panel, Basic Comments: PATIENT NOT FASTINGPERFORMED BY: [facility]6370 [facility] [id number] ([id number]) Calcium, Serum 9.1 mg/dL (Normal) Range: 8.6-10.2 [...] Glucose, Serum 111 mg/dL (Abnormal) Range: 65-99 61-Czz-615298:00 DRUG ASSAY-LITHIUM (19718) Comments: all these labs standing order prn; PATIENT NOT FASTINGPERFORMED BY: [facility] SomersetQgzbwx4841 [facility] [id number] [place] ([place]), Serum 0.9 mmol/L (Normal) Range: 0.6-1.4 Comments: Detection Limit = 0.1<0.1 indicates None Detected 98-Oht-33354:16 METABOLIC PANEL, COMPREHENSIVE Comments: PATIENT NOT FASTINGPERFORMED BY: [facility] SomersetJswuzl0273 [facility] [id number] ([id number]) A/G Ratio 1.3 (Normal) Range: 1.1-2.5 Alkaline [...] Glucose, Serum 207 mg/dL (Abnormal) Range: 65-99 68-Kdz-61525:16 CBC WITH MANUAL DIFF Comments: PATIENT NOT FASTINGPERFORMED BY: [facility] SomersetVfzddz3613 [facility] [id number] Information: [id number] ([id number]) Baso (Absolute) 0.1 {x10E3/uL} (Normal) Range: 0.0-0.2 [...] CREATININE RATIO Comments: PATIENT NOT FASTINGPERFORMED BY: [facility]6370 [facility] [id number] ([id number]) AND (17971) Microalb/Creat Ratio 6.2 {mg/g_creat} (Normal) Range: 0.0-30.0 Microalbumin, Urine 2.5 ug/mL (Normal) Range: 0.0-17.0 Creatinine, Urine 40.1 mg/dL (Normal) Range: 15.0-278.0 :38 HgA1C , Office (76859) HgA1C , Office 6.6 % (Normal) Range: 4.6 - 7.1 :38 Blood Glucose , Office (95940) Blood Glucose , Office 214 (Normal) 07-Nyn-634125:05 URINE VERÓNICA CULTURE-IDENTIFICATN Comments: PATIENT NOT FASTINGPERFORMED BY: [facility]6370 [facility] [id number] Information: [id number] ([id number]) Antimicrobial MIHEAD (Normal) Comments: S = Susceptible; [...] mL (Normal) Urine Final report (Normal) Culture,Comprehensive 17-Tev-613069:23 CHEST, PA AND LATERAL (MT) Radiology Report See Note (Normal) Comments: Exam Number: [id number] CLINICAL:58-year-old female with cough, pain and shortness [...] otherwise unremarkable. Reported By: SISI MART Dr. 59-Uze-85131:23 B.pertussisB.parapertussis PCR Comments: PERFORMED BY: [place] [address] [place] [address] [id number] Bordetella parapertussis DNA Negative (Normal) Comments: .This test was developed and its performance characteristics determinedby [employer]. It has not been cleared or approved by theU.S. Food and Drug Administration. The FDA has determined that s uchclearance or approval is not necessary. This test is used for clinicalpurposes. It should not be regarded as investigational or research. Bordetella pertussis DNA Negative (Normal) 38-Mfm-275079:50 HgA1C , Office (94917) HgA1C , Office 5.5 % (Normal) Range: 4.6 - 7.1 :50 Blood Glucose , Office (84328) Blood Glucose , Office 90 (Normal) :33 HgA1C , Office (22142) HgA1C , Office 5.6 % (Normal) Range: 4.6 - 7.1 :41 HgA1C , Office (36049) HgA1C , Office 5.5 % (Normal) Range: 4.6 - 7.1 Comments: :41 Blood Glucose , Office (82185) Comments: 89 Blood Glucose , Office 89 [...] (Normal) Range: 0.34-4.82 :42 HgA1C , Office (88593) HgA1C , Office 5.4 % (Normal) Range: 4.6 - 7.1 :42 Blood Glucose , Office (07346) Blood Glucose , Office 103 (Normal) :20 CBC HCT 44.0 % (Normal) Range: 37-47 HGB 15.2 g/dL (Normal) Range: 12.0-16.0 MCH 31.7 pg (Normal) Range: 27.0-32.0 MCHC 34.6 g/dL (Normal) Range: 32-36 MCV 91.5 fL (Normal) Range: 81-99 PLT 306 K/mm3 (Normal) Range: 150-450 RBC 4.81 {M/mm3} (Normal) Range: 4.2-5.4 RDW 12.2 % (Normal) Range: 11.6-14.6 WBC 6.7 K/mm3 (Normal) Range: 4.4-11.0 26-Bvd-109549:20 COMP METABOLIC A/G 1.0 {RATIO} (Normal) Range: [...] T PROT 8.0 g/dL (Normal) Range: 6.4-8.2 82-Lsd-057501:20 LIPID CHOL 148 mg/dL (Normal) Comments: <200 [...] mg/dL VLDL 30 mg/dL (Normal) Range: 5-40 32-Xcl-443056:20 ROUTINE UA BILIRUBIN URINE SeeNote (Normal) Comments: [...] 0.2 EU/dl (Normal) Range: 0.2 - 1.0 31-Nlo-51104:06 THYROID (HP) Radiology Report See Note (Normal) Comments: Exam Number: [id number] THYROID ULTRASOUND HISTORYGoiter. There is borderline increase [...] 03, 2007. Reported By: PETRONA REGALADO M.D. 39-Xtz-09397:20 MAMM, UILAT DIAG DIGITAL & CAD Radiology Report See Note (Normal) Comments: Exam Number: [id number] UNILATERAL LEFT DIAGNOSTIC MAMMOGRAPHY CLINICAL STATEMENTLeft breast [...] The mammogramswere also examined with computer-aided detection software([employer] Reported By: REID KRUEGER M.D. : TSH 0.94 {uIU/mL} Range: 0.34-4.82 50 (Normal) :06 MAMM, BILAT SCRN DIGITAL & CAD Radiology Report See Note (Normal) Comments: Exam Number: [id number] MAMMOGRAM, BILATERAL SCREENING DIGITAL AND CAD HISTORYRoutine [...] mammograms werealso examined with computer-aided detection software ([employer] Reported By: PETRONA REGALADO M.D. 5-Edm-220038:05 THYROID () Radiology Report See Note (Normal) Comments: Exam Number: [id number] THYROID ULTRASOUND HISTORYGoiter. High resolution real time [...] 6 months. Reported By: PETRONA REGALADO M.D. 75-Pwk-239656:22 HgA1C , Office (69233) HgA1C , Office 5.9 % (Normal) Range: 4.6 - 7.1 23-Khe-754395:22 Blood Glucose , Office (50409) Blood Glucose , Office 88 (Normal) Plan [...] II, controlled Stress incontinence, female : Reviewed Cloth Winder Letter Indication: Stress incontinence, female Diabetes mellitus [...] acute Planned Observations VITAMIN B12 AND FOLATES (04241)Indication: Neuropathic pain On: :08 Request Blood Glucose , Office (83381)Indication: Diabetes mellitus type II, controlled On: 10-Vqv-98214:04 Request LIPID PANEL (69115)Indication: Neuropathic pain On: 05-Equ-80620:54 Request Blood Glucose , Office (15453)Indication: Diabetes mellitus type II, controlled On: 02-Nov-20178:55 Request D-Dimer (35145)Indication: Shortness of breath On: 06-Jcm-887791:19 Request Metabolic Panel, Comprehensive (67949)Indication: Diabetes mellitus type II, controlled On: 58-Qxs-745961:19 Request Comments: Nov 2017 LIPID PANEL (44764)Indication: Diabetes mellitus type II, controlled On: 25-Evq-951773:19 Request Comments: Nov 2017 URINALYSIS (50961)Indication: Diabetes mellitus type II, controlled On: 24-Qab-817852:19 Request Comments: Nov 2017 TSH (96808)Indication: Diabetes mellitus type II, controlled On: 97-Xem-762823:18 Request Comments: Nov 2017 CBC, Platelets & Auto Diff (33653)Indication: Diabetes mellitus type II, controlled On: 46-Lua-927701:18 Request Comments: Nov 2017 MICROALBUMIN: CREATININE RATIO (05998) AND (29316)Indication: Diabetes mellitus type II, controlled On: 98-Ong-670785:18 Request Comments: Nov 2017 HgA1C , Office (01204)Indication: Diabetes mellitus type II, controlled On: 30-Idv-417124:44 Request Anaerobic & Aerobic Culture (32645)Indication: Mouth pain On: 6-Onp-692349:11 Request Metabolic Panel, Comprehensive (90860)Indication: Chronic kidney disease (CKD), stage I On: 88-Ltw-423350:50 Request Comments: 2 weeks Metabolic Panel, Comprehensive (06003)Indication: Diabetes mellitus type II, controlled On: 24-Vyu-122354:56 Request Comments: today URINALYSIS (03342)Indication: Chronic kidney disease (CKD), stage I On: 09-Dsb-350715:52 Request Comments: Jul 2017 MICROALBUMIN: CREATININE RATIO (63230) AND (16065)Indication: Chronic kidney disease (CKD), stage I On: 24-Tuk-875986:52 Request Comments: jul 2017 Lipid Panel (75028)Indication: Hypertension (Renamed from BP (high blood pressure)) On: 82-Rhp-289010:52 Request Comments: Jul 2017 TSH (39814)Indication: Leg weakness On: 66-Iyj-303921:52 Request Comments: Jul 2017 CBC, Platelets & Auto Diff (52471)Indication: Leg weakness On: 18-Mdi-246409:52 Request Comments: jul 2017 METABOLIC PANEL, COMPREHENSIVE (11652)Indication: Weakness On: 88-Oco-989885:55 Request METABOLIC PANEL, COMPREHENSIVE (88514)Indication: Hypokalemia On: :43 Request Comments: STAT SED RATE ERYTHROCYTE (24296)Indication: Weakness On: 97-Yvf-603316:29 Request TSH (THYROID STIMULATING HORMONE) (22697)Indication: Unspecified abnormal involuntary movements On: 61-Ngn-857987:17 Request METABOLIC PANEL, COMPREHENSIVE (71125)Indication: Unspecified abnormal involuntary movements On: :17 Request CBC, PLATELETS & AUT DIFF (42005)Indication: Unspecified abnormal involuntary movements On: 93-Oap-834858:17 Request URINE VERÓNICA CULTURE-IDENTIFICATN (06628)Indication: Weakness On: 26-Wbj-739005:07 Request Blood Glucose , Office (86711)Indication: Unspecified abnormal involuntary movements On: 31-Fmy-07017:59 Request VITAMIN B12 AND FOLATES (33870)Indication: Unspecified abnormal involuntary movements On: :57 Request SPEP (87008)Indication: Elevated serum creatinine On: 94-Tpp-741888:31 Request CALCIFIDIOL (40776) VIT D 25Indication: Vitamin D deficiency (Renamed from Avitaminosis D) On: :27 Request TSH (86538)Indication: Hypothyroidism On: : Request MICROALBUMIN: CREATININE RATIO (77501) AND (41992)Indication: Diabetes mellitus type II, controlled On: : Request METABOLIC PANEL, COMPREHENSIVE (77259)Indication: Diabetes mellitus type II, controlled On: : Request LIPID PANEL (16022)Indication: Diabetes mellitus type II, controlled On: : Request CBC with auto diff (09506)Indication: Diabetes mellitus type II, controlled On: : Request CALCIFIDIOL (13704) VIT D 25Indication: Vitamin D deficiency (Renamed from Avitaminosis D) On: 42-Aud-767475:15 Request Comments: in three months (approximately) METABOLIC PANEL, COMPREHENSIVE (14843)Indication: Diabetes mellitus type II, controlled On: 88-Tas-264157:15 Request Comments: in three months (approximately) SODIUM URINE (46296)Indication: Hyponatremia On: 0-Vrw-317163:51 Request OSMOLALITY URINE (10646)Indication: Hyponatremia On: 9-Wmb-082338:50 Request OSMOLALITY BLOOD (24280)Indication: Hyponatremia On: 4-Fdv-690118:50 Request ASSAY, TROPONIN, QUANTITATIVE (aka Troponin I) (74242)Indication: Chest pain On: 22-Evs-208126:40 Request Comments: stat D-Dimer (68930)Indication: Chest pain On: 97-Ivf-518840:40 Request Comments: stat TSH (29968)Indication: Chest pain On: :40 Request CBC WITH MANUAL DIFF (47127)Indication: Chest pain On: 03-Zri-974804:40 Request METABOLIC PANEL, COMPREHENSIVE (55436)Indication: Chest pain On: 49-Hhm-678977:40 Request URINE VERÓNICA CULTURE (SHARIFA COL COUNT) (86964)Indication: Dysuria (Renamed from Difficult or painful urination) On: 06-Iyi-184783:24 Request Metabolic Panel, Comprehensive (81617)Indication: Hypertension (Renamed from BP (high blood pressure)) On: 14-Yeb-145344:56 Request Metabolic Panel, Basic (10020)Indication: Elevated LFTs On: 08-Sau-571083:16 Request 24 hour urine for Protein (45714)Indication: Elevated serum creatinine On: 21-Xsu-424787:40 Request Comments: recheck in one week CREATININE CLEARANCE (25395)Indication: Elevated serum creatinine On: 10-Ipc-657870:39 Request Comments: recheck in one week Blood Glucose , Office (67340)Indication: Diabetes mellitus type II, controlled On: 63-Spa-61999:29 Request METABOLIC PANEL, COMPREHENSIVE (51065)Indication: Hypokalemia (Renamed from Decreased potassium in the blood) On: 30-Old-034078:52 Request MICROALBUMIN: CREATININE RATIO (89652) AND (29589)Indication: Diabetes mellitus type II, controlled On: 85-Hdq-786800:14 Request FLURESCNT ANTIB SCRN EA (96018) celiac profileIndication: Irritable bowel syndrome (Renamed from Functional bowel disease) On: 0-Jun-022963:58 Request IMMUNOASSAY, ANALYTE (NON-INFECT) (49927) celiac profileIndication: Irritable bowel syndrome (Renamed from Functional bowel disease) On: 3-Aeq-741564:58 Request IGA/IGD/IGG/IGM-EACH (91503) celiac profileIndication: Irritable bowel syndrome (Renamed from Functional bowel disease) On: 2-Vba-033043:58 Request Potassium Serum (93089)Indication: Hypokalemia (Renamed from Decreased potassium in the blood) On: 2-Bby-952463:58 Request Celiac Disease Comphrehensive Profile (03949)Indication: Irritable bowel syndrome (Renamed from Functional bowel disease) On: 04-Nov-20129:56 Request METABOLIC PANEL, COMPREHENSIVE (17620)Indication: Diabetes mellitus type II, controlled On: 33-Iqu-903298:32 Request LIPID PANEL (25170)Indication: Diabetes mellitus type II, controlled On: 00-Ayk-881760:32 Request CBC WITH MANUAL DIFF (91100)Indication: Diabetes mellitus type II, controlled On: 93-Kyt-701802:32 Request MICROALBUMIN: CREATININE RATIO (08898) AND (05174)Indication: Diabetes mellitus type II, controlled On: :32 Request TSH (93071)Indication: Hypothyroidism On: :32 Request TSH (02718)Indication: Hypothyroidism On: : Request MICROALBUMIN: CREATININE RATIO (39550) AND (35702)Indication: Diabetes mellitus type II, controlled On: : Request METABOLIC PANEL, COMPREHENSIVE (99170)Indication: Diabetes mellitus type II, controlled On: : Request LIPID PANEL (42495)Indication: Diabetes mellitus type II, controlled On: : Request CBC WITH MANUAL DIFF (50234)Indication: Diabetes mellitus type II, controlled On: : Request URINE VERÓNICA CULTURE-SHARIFA COL COUNT (18094)Indication: Dysuria (Renamed from Difficult or painful urination) On: 22-Ipt-243076:15 Request URINE VERÓNICA CULTURE-SHARIFA COL COUNT (11754)Indication: Dysuria (Renamed from Difficult or painful urination) On: 63-Zou-864760:55 Request Ferritin (56456)Indication: Elevated LFTs On: 39-Olg-933781:50 Request Comments: repeat now per Dr. Cabral with iron level Iron Binding Capacity (TIBC) (01190)Indication: Elevated LFTs On: 18-Vmd-927003:50 Request Iron (65641)Indication: Elevated LFTs On: 15-Tei-487348:49 Request CBC (Auto) (04482)Indication: Thrombocytopenia, unspecified On: 22-Wtk-085830: Request Comments: nonclumping tube HEPATITIS PANEL (14887)Indication: Elevated LFTs On: : Request FERRITIN (07419)Indication: Elevated LFTs On: 90-Eix-739866:00 Request CERULOPLASMIN (08015)Indication: Elevated LFTs On: 78-Kpm-023228:00 Request ASM (ANTI SMOOTH MUSCLE ANTIBODY) (99317)Indication: Elevated LFTs On: 98-Nmy-340341:00 Request GAYATRI (ANTINUCLEAR ANTIBODY) (92132)Indication: Elevated LFTs On: 65-Qcb-473576:00 Request HEPATITIS PANEL (71961)Indication: Elevated LFTs On: 51-Tfv-02115:01 Request TSH (58255)Indication: Hypothyroidism On: 78-Xwu-377570:16 Request LIPID PANEL (66936)Indication: Diabetes mellitus type II, controlled On: 65-Rtz-539696:15 Request DRUG ASSAY-LITHIUM (48092)Indication: Bipolar affective disorder, mixed On: 86-Cps-082353:14 Request Metabolic Panel, Basic (37540)Indication: Bipolar affective disorder, mixed On: 67-Mja-381872:13 Request Metabolic Panel, Basic (79688)Indication: Bipolar affective disorder, mixed On: 79-Rlm-579398:22 Request DRUG ASSAY-LITHIUM (17928)Indication: Bipolar affective disorder, mixed On: 21-Czh-125972:22 Request Comments: 2 months Urinalysis, Office (33640)Indication: Urinary frequency On: 01-Mfl-830032:27 Request Comments: done pms HEPATIC FUNCTION PANEL (06385)Indication: Other and unspecified hyperlipidemia On: 4-Bdk-424710:45 Request Lipid Panel (40032)Indication: Other and unspecified hyperlipidemia On: 4-Tqf-621506:45 Request Lipid Panel (57820)Indication: Other and unspecified hyperlipidemia On: 95-Smg-598536:17 Request CBC, Platelets & Auto Diff (03647)Indication: Other and unspecified hyperlipidemia On: 95-Jjl-537739:17 Request Metabolic Panel, Comprehensive (82500)Indication: Other and unspecified hyperlipidemia On: 00-Lat-451944:17 Request TSH (00521)Indication: Hypothyroidism On: 34-Vch-332012:15 Request Metabolic Panel, Basic (39927)Indication: Other and unspecified hyperlipidemia On: :55 Request Lipid Panel (17995)Indication: Other and unspecified hyperlipidemia On: :55 Request Comments: in three months (approximately) CBC (Auto) (25890)Indication: Intestinal disaccharidase deficiencies and disaccharide malabsorption On: :56 Request Metabolic Panel, Comprehensive (05477)Indication: Intestinal disaccharidase deficiencies and disaccharide malabsorption On: :56 Request Lipid Panel (43977)Indication: Intestinal disaccharidase deficiencies and disaccharide malabsorption On: 22-Qiq-08602:56 Request Comments: in three months (approximately) MICROALBUMIN 24 HOUR OR RANDOM On: 59-Imv-947552:04 Request (11487) CREATININE CLEARANCE (16178) On: 77-Nop-645426:03 Request CBC (Auto) (41672)Indication: Unspecified disorder of kidney and ureter On: :53 Request Lipid Panel (20611)Indication: Unspecified disorder of kidney and ureter On: :53 Request Metabolic Panel, Comprehensive (74349)Indication: Unspecified disorder of kidney and ureter On: :53 Request TSH (06633)Indication: Hypothyroidism On: :53 Request TSH (36941)Indication: Hypothyroidism On: 04-Xxl-226478:18 Request URINALYSIS (00308)Indication: Intestinal disaccharidase deficiencies and disaccharide malabsorption On: 28-Msu-887509:43 Request CBC (Auto) (55771)Indication: Intestinal disaccharidase deficiencies and disaccharide malabsorption On: 77-Iuw-388162:43 Request Lipid Panel (66951)Indication: Intestinal disaccharidase deficiencies and disaccharide malabsorption On: 78-Alc-257174:43 Request Metabolic Panel, Comprehensive (47235)Indication: Intestinal disaccharidase deficiencies and disaccharide malabsorption On: 41-Qxh-294123:43 Request Planned Procedures COMPUTED TOMOGRAPHY ANGIOGRAPHY OF On: 01-Aug-2018 Intent CHEST FOR PULMONARY EMBOLISM Comments: stat for PE (31358)By: Eli Bowman CNP, CNP, Mary E Echo CompleteBy: Eli Bowman CNP On: 29-Jul-2018 Intent Eli Bowman CNP Spirometry (31306)By: Colby WATTERS On: 29-Jul-2018 Intent Eli Mcelroy CNP Holter Monitor 24 hrsBy: Colby WATTERS, On: 29-Jul-2018 Intent Eli Mcelroy CNP CHEST XRAY, PA & LATERAL (74965)By: On: 29-Jul-2018 Intent Eli Bowman CNP, CNP, Mary E ELECTROCARDIOGRAM, COMPLETE (ECG) On: 29-Jul-2018 Intent (37294)By: Colby WATTERS Eli Bowman Comments: sinus rhythm Eli WATTERS Aerosol Treatment (09206)By: Colby On: 29-Jul-2018 Intent Eli WATTERS CNP, Mary E Flu Vaccine (Quadrivalent) 63575Oo: On: 22-Jul-2018 Intent Tejal Ceron Comments: Lot #[id number]-L dltd, IMDose prefilled syringegiven by: Rosalie Ceron MA Toradol Injection, 30 mg (J1885)By: On: 09-May-2018 Intent Nunu Root Comments: lot [id number] 12/2029mgIMleft gmas, MASCARA MOLDER SCREENING DIGITAL TOMOSYNTHESIS OF On: 18-Apr-2018 Intent BREAST (23104)By: Colby WATTERS Eli Mcelroy CNP DEXA SCAN AXIAL SKELETON (84064)By: On: 18-Apr-2018 Intent Colby WATTERSEli CNP, Mary E Toradol Injection, 30 mg (J1885)By: On: 22-Mar-2018 Intent Nunu Root Comments: toradol 30mg injection lot:03-775-LJwyv:10/2019R GMpt tolerated wellMSMITH,MASCARA MOLDER COMPLETE ELECTROMYOGRAPHY (EMG) WITH On: 22-Mar-2018 Intent NERVE CONDUCTION STUDIES OF EACH Comments: Bilateral lower legs EXTREMITY (58934)By: Nunu Root EMGBy: José Miguelsilvano Eli WATTERS CNP, On: 03-Jan-2018 Intent Eli Lubin Comments: both legs Nerve ConductionBy: Lisajanna Eli WATTERS On: 03-Jan-2018 Intent Eli Hurtado CNP Comments: both legs Toradol Injection, 30 mg (J1885)By: On: 23-Dec-2017 Intent Mayda Dobbins DO Comments: toradol 30mg injectionlot: 96-500-PMeft: 06/2018L GMpt tolerated wellAD MASCARA MOLDER Spirometry (87423)By: Dk, On: 16-Nov-2017 Intent Nunu Comments: Normal spirometry Aerosol Treatment (65381)By: Shilpi On: 30-Aug-2017 Mayda Bailey DO Comments: less noise with forced exp Solu- Medrol Injection, 125mg On: 30-Aug-2017 Intent (J2930)By: Mayda Dobbins DO Comments: solumedrol 125mg injectionlot: [id number]: GMpt tolerated wellAD MASCARA MOLDER Radiology - Chest- PA and LatBy: On: 30-Aug-2017 Intent Mayda Dobbins DO Solu- Medrol Injection, 125mg On: 26-Aug-2017 Intent (J2930)By: Mayda Dobbins DO Comments: solumedrol 125mg injectionlot: [id number]: 12/2019L GMpt tolerated wellAD MASCARA MOLDER Aerosol Treatment (42516)By: Shilpi On: 26-Aug-2017 Intent Mayda COLEMAN Comments: [place] Spirometry (54747)By: Shilpi COLEMAN, On: 26-Aug-2017 Intent Mayda Comments: mild obstruction Radiology - Shoulder - RightBy: On: 20-Jul-2017 Intent Edita Cabral MD Radiology - Lumbar SpineBy: Misha On: 20-Jul-2017 Intent Edita PROCTOR DRAIN/INJECT MAJOR JOINT OR BURSA On: 13-Apr-2017 Intent (00398)By: Eli Bowman CNP Comments: injevted left knee today Eli WATTERS PHYSICAL THERAPY (15758)By: Dk On: 08-Apr-2017 Intent Nunu Radiology - Knee - RightBy: Dk On: 08-Apr-2017 Intent Nunu Radiology - Knee - LeftBy: Dk, On: 08-Apr-2017 Intent Nunu ATTENDED SLEEP STUDY (36388)By: On: 18-Jan-2017 Intent Eli Bowman CNP, CNP, Mary E DEXA SCAN AXIAL SKELETON (16881)By: On: 24-Nov-2016 Intent Donnie Gonzales MD MAMMOGRAM, SCREENING, BOTH BREAST On: 24-Nov-2016 Intent (88113)By: Donnie Gonzales MD US KIDNEY COMPLETE (92702)By: Janet On: 16-Jul-2016 Intent Donnie PROCTOR EsophagramBy: Edita Cabral MD On: 06-Feb-2016 Intent Comments: 12mm tablet X-RAY EXAM OF ESOPHAGUS (99740) - On: 04-Feb-2016 Intent Barium Swallow with 12mm tabletBy: Donnie Gonzales MD Carotid DopplerBy: Edita Cabral MD On: 16-Sep-2015 Intent M TD VACCINE ADULT (40900)By: Misha On: 16-Sep-2015 Intent Edita PROCTOR TDAP VACCINE >7 IM (85967)By: On: 16-Sep-2015 Intent Edita Cabral MD Pap Smear, Medicare (Q0091)By: On: 16-Sep-2015 Intent Edita Cabral MD MAMMOGRAM, SCREENING, BOTH BREAST On: 16-Sep-2015 Intent (52706)By: Edita Cabral MD Renal Artery DopplerBy: Misha PROCTOR, On: 04-Feb-2015 Intent Edita Clinton Ultrasound - RenalBy: Misha PROCTOR, On: 04-Feb-2015 Intent Edita Clinton DEXA SCAN AXIAL SKELETON (95940)By: On: 17-Jan-2015 Intent Edita Cabral MD Comments: postmenapausal MAMMOGRAM, SCREENING, BOTH BREAST On: 17-Jan-2015 Intent (02903)By: Edita Cabral MD Radiology - Shoulder - [...] with back pain- stat call results Spirometry (18198)By: Thee COLEMAN, On: 30-Apr-2014 Intent Erna Schaefer Comments: good effort and curve normal ELECTROCARDIOGRAM, COMPLETE (ECG) On: 30-Apr-2014 Intent (72292)By: Erna [place] DO Eprescribed prescriptions ([id number])By: On: 12-Feb-2014 Intent Edita Cabral MD SPECIMEN HANDLING/TRANSPORT On: 15-Jan-2014 Intent ([id number])By: Eli Bowman CNP, CNP, Mary E Eprescribed prescriptions ([id number])By: On: 11-Oct-2013 Intent Nunu Stephens LPN ADMINISTRATION OF INFLUENZA VIRUS On: 24-Jul-2013 Intent VACCINE ([id number])By: Edita Cabral MD FLU VAC, SPLIT, >3 YEARS, INTRAMUSC On: 24-Jul-2013 Intent ([id number])By: Edita Cabral MD Echo CompleteBy: Edita Cabral MD On: 27-Jun-2013 Intent Carotid DopplerBy: Edita Cabral MD On: 27-Jun-2013 Intent M Eprescribed prescriptions ([id number])By: On: 27-Jun-2013 Intent Teressa Molina LPN L MRI - BrainBy: Eli Bowman CNP On: 16-Jun-2013 Intent Eli Bowman CNP SPECIMEN HANDLING/TRANSPORT On: 16-May-2013 Intent ([id number])By: Sue Ewing LPN Holter Monitor 24 hrsBy: Colby WATTERS, On: 28-Apr-2013 Intent Eli Mcelroy CNP ELECTROCARDIOGRAM, COMPLETE (ECG) On: 28-Apr-2013 Intent ([id number])By: Eli Bowman CNP Comments: sinus bradycardia Eli WATTERS Bio Z ([id number])By: Eli Bowman CNP On: 28-Apr-2013 Intent Eli Bowman CNP EKG ([id number])By: Edita Cabral MD On: 28-Mar-2013 Intent Comments: see scanned document of test done to see results reviewed today with patient Eprescribed prescriptions ([id number])By: On: 28-Mar-2013 Intent Jason Molina LPNn L Eprescribed prescriptions ([id number])By: On: 08-Dec-2012 Intent Nunu Stephens LPN Spirometry ([id number])By: Shilpi COLEMAN, On: 25-Nov-2012 Intent Mayda Comments: Computer not running so not able to perform test Aerosol Treatment ([id number])By: Shilpi On: 25-Nov-2012 Intent Mayda COLEMAN Spirometry ([id number])By: Thee COLEMAN, On: 21-Nov-2012 Intent Erna A Comments: good effort and curve normal Radiology - Chest- PA and LatBy: On: 21-Nov-2012 Intent Thee COLEMAN Erna A Eprescribed prescriptions ([id number])By: On: 21-Nov-2012 Intent Makayla Dillard LPN ADMINISTRATION OF PNEUMOCOCCAL On: 31-Oct-2012 Intent VACCINE (G0009)By: Edita Cabral MD Comments: Lot #[id number]/19/14Site-right deltoidDose0.5mlgiven by: [facility] per fax. M PNEUM VAC ADLT/IMUMNOSPR, SBC/INTRM On: 31-Oct-2012 Intent ([id number])By: Jodi Carvalho LPN Eprescribed prescriptions ([id number])By: On: 18-Oct-2012 Intent Teressa Molina LPN FLU VAC, SPLIT, >3 YEARS, INTRAMUSC On: 01-Jul-2012 Intent ([id number])By: Eli Bowman CNP Comments: Lot:[id number]:6.13Amt:prefilled syringeSite: L Dltd, IMGiven by: MARISA Torres CNP, Mary E ADMINISTRATION OF INFLUENZA VIRUS On: 01-Jul-2012 Intent VACCINE (G0008)By: Eli Bowman CNP, CNP, Mary E SPECIMEN HANDLING/TRANSPORT On: 01-Jul-2012 Intent ([id number])By: Sue Ewing LPN Solu -Medrol Injection, 125 mg On: 23-Nov-2011 Intent ([id number])By: Edita Cabral MD Comments: Lot [id number]-R hip, IMDose 125mggiven by:Teressa Radiology - ChestBy: Misha PROCTOR, On: 23-Nov-2011 Intent Edita Clinton Comments: wet read Pulse Oximetry ([id number])By: Benoit On: 23-Nov-2011 Intent AKBAR Aerosol Treatment ([id number])By: Colby On: 16-Nov-2011 Intent Eil WATTERS CNP, Mary E Pulse Oximetry ([id number])By: Vin On: 16-Nov-2011 Intent Lynn Comments: 93 FLU VAC, SPLIT, >3 YEARS, INTRAMUSC On: 16-Nov-2011 Intent ([id number])By: Lynn Banuelos Comments: received at work SPECIMEN HANDLING/TRANSPORT On: 14-Sep-2011 Intent ([id number])By: Edita Cabral MD SPECIMEN HANDLING/TRANSPORT On: 26-Aug-2011 Intent ([id number])By: Sue Ewing LPN Ultrasound - LiverBy: Misha PROCTOR, On: 11-Jun-2011 Intent Edita Clinton EKG ([id number])By: Edita Cabral MD On: 16-Feb-2011 Intent MAMMOGRAM, SCREENING, BOTH BREASTS On: 13-Mar-2010 Intent ([id number])By: Edita Cabral MD MAMMOGRAM, SCREENING, BOTH BREASTS On: 06-Mar-2010 Intent ([id number])By: Edita Cabarl MD MAMMOGRAM, SCREENING, BOTH BREASTS On: 13-Feb-2010 Intent ([id number])By: Edita Cabral MD Spirometry ([id number])By: Misha PROCTOR, On: 01-Oct-2009 Intent Edita Clinton ELECTROCARDIOGRAM, COMPLETE (ECG) On: 01-Oct-2009 Intent ([id number])By: Edita Cabral MD Pulse Oximetry ([id number])By: Benoit On: 01-Oct-2009 Intent AKBAR Spirometry ([id number])By: Thee COLEMAN, On: 30-Jul-2009 Intent Erna Schaefer Comments: good effort and curve normal Radiology - Chest- PA and LatBy: On: 30-Jul-2009 Intent Erna Kingston DO Pulse Oximetry ([id number])By: Vin, On: 30-Jul-2009 Intent Lynn Comments: 94%repeat 97-98 EKG ([id number])By: Erna Kingston DO On: 14-Jul-2009 Intent Comments: ekg showed normal sinus rhythym, normal axis, no acute st/t wave changes old t wave inversion noted on previous ekg Pulse Oximetry (08091)By: Vin, On: 11-Jul-2009 Intent Lynn Comments: 97% Solu -Medrol Injection, 125 mg On: 09-Jul-2009 Intent ([id number])By: Erna Kingston DO Comments: Lot #:[id number] date:mount given:125mgRoute:IM Site given:left buttockGiven by: MARIA DOLORES Cordon Aerosol Treatment ([id number])By: Thee On: 09-Jul-2009 Erna Bailey DO Pulse Oximetry ([id number])By: Thee COLEMAN, On: 09-Jul-2009 Intent Erna A Comments: repeat after treatment was 96 Pulse Oximetry ([id number])By: Vin, On: 09-Jul-2009 Intent Lynn Comments: 93% Spirometry ([id number])By: Gildardo SOUSA, On: 25-Jan-2009 Intent Sue MAMMOGRAM, SCREENING, BOTH BREASTS On: 29-May-2008 Intent ([id number])By: Edita Cabral MD EKG ([id number])By: Edita Cabral MD On: 29-May-2008 Intent Spirometry ([id number])By: Misha PROCTOR, On: 27-Dec-2007 Intent Edita Clinton Ultrasound - ThyroidBy: Misha PROCTOR, On: 22-Mar-2007 Intent Edita Clinton MAMMOGRAM, SCREENING, BOTH BREASTS On: 22-Mar-2007 Intent ([id number])By: Edita Cabral MD MAMMOGRAM, SCREENING, BOTH BREASTS On: 22-Mar-2007 Intent ([id number])By: Edita Cabral MD ELECTROCARDIOGRAM, COMPLETE (ECG) On: 22-Mar-2007 Intent ([id number])By: Edita Cabral MD Planned Medications INJECTION, KETOROLAC [...] disease, bilateral : DISCONTINUED - POTASSIUM SERUM (13351) Indication: Active Meniere's disease, bilateral Elevated LFTs : DISCONTINUED - HEPATIC FUNCTION PANEL (99415) Indication: Elevated LFTs Diabetes mellitus type II, [...] reveiwing printed for pt to take to [facility] , [ADDITIONAL REASON] Weight Gain [...] care, told to go to ER at [facility] diagnosed with Esophagitis was given [...] occurred following a specific injury (lifting at [employer] for years but no fall). The injury [...] bathroom. The patient has completed the f [facility] preventative measures: PAP smear (needs [...] for Tdap vaccination (Renamed from Need for [id number] (Tdap) vaccine, adult/adolescent), Goiter (Renamed from Big [...] (240.9), Hypothyroidism(244.9) [facility] Payers MedicarePhys[employer] Lilly Toro; a guarantor
--- OUTSIDE RECORDS SUMMARY | 2018-11-25 15:06 | XMS RPT_ITS | Continuity of Care Document ---
:1950 Author Organization [facility] Address [address] [place] [address] Phone Care Team Providers Name Role Phone Colby JANENEEli E Unavailable Mina Baer MD Unavailable Nhung Duval Unavailable [facility] Unavailable Kasi Scott Unavailable Mariia Zhang [...] with bottles, extensive review with nurse and [facility], med list updated Status: Active Postmenopausal (Renamed from Postmenopausal status) (Z78.0, V49.81) Status: Active Pregnancies () Comments: 2 Status: Active S/P hysterectomy (Z90.710, V88.01) Comments: for endometrial hyperplasia 2015 Status: Active Shortness of breath (R06.02, 786.05) Status: Active Sleep apnea (G47.30, 780.57) Comments: needs repeat sleep study at [facility] to get back on cpap Status: [...] Caitlin Delaney Start : 29-Jul-2018 Active Ergocalciferol 40847 UNIT Oral Capsule 1 Capsule twice weekly for 0 days Quantity: 24 {Capsule} Refills: 0 Ordered:23-Jun-2018 Colby WATTERS Eli Mejiasilvano WATTERS Eli Lubin Start : 23-Jun-2018 Active [...] tablet daily (15 MG) Active Comments:Catrachito Pen [place] /16 31G X 5 MM Miscellaneous 1 (one) Misc Misc qd with Victoza for 0 days Quantity: 1 {Box} Refills: 3 Ordered:03-Feb-2018 Edita Cabral MD Start : 19-Jan-2018 Active ProAir HFA 108 (90 Base) MCG/ACT Inhalation Aerosol Solution 1-2 puffs Aerosol Soln every four hours, as needed for 30 days Quantity: 1 {Box} Refills: 3 Ordered:29-Jul-2018 Colby WATTERS Eli Mejiasilvano WATTERS Eli Lubin Start : 29-Jul-2018 Active Comments:Medication taken as needed. PROzac 40 MG Oral Capsule 2 (two) Capsule qd for 90 days Quantity: 180 {Capsule} Refills: 3 Ordered:18-Apr-2018 Colby WATTERS Eli Mejiasilvano WATTERS Eli Lubin Start [...] Refills: 0 Ordered:16-May-2013 Colby WATTERS, Eli Yanez CNP, Eli Lubin Start : 16-May-2013 End : 23-May-2013 Inactive Cheratussin AC 100-10 MG/5ML Oral Syrup 1 Teaspoon(s) qhs prn cough for 0 days Quantity: 8 {Fluid_Ounce} Refills: 0 Ordered:16-Jun-2016 Priya Gillette Start : 12-Mar-2016 End : 16-Jun-2016 Inactive Comments:eight CIPRO, 500MG (Oral Tablet) 1 Tablet bid for 7 days Quantity: 14 {Tablet} Refills: 0 Ordered:15-Jan-2014 Colby WATTERS, Eli Yanez CNP, Eli Lubin Start : 15-Jan-2014 End : 22-Jan-2014 Inactive [...] : 07-Nov-2012 End : 12-Feb-2014 Inactive Drisdol 97655 UNIT Oral Capsule 1 (one) Capsule once [...] Quantity: 30 {Tablet_ER_24HR} Refills: 6 Ordered:03-Aug-2011 Long Teressa SOUSA Start : 11-Jun-2011 End : 03-Aug-2011 Inactive [...] for 900 days Refills: 0 Ordered:30-Sep-2010 AKBAR oSuth Start : 29-Jul-2010 End : 30-Sep-2010 Inactive Nystatin 976452 UNIT/ML Mouth/Throat Suspension 4-6 Milliliter swish and [...] : 12-Dec-2015 End : 16-Jun-2016 Inactive Comments:per [facility] er Topamax 100 MG Oral Tablet 1 [...] 03-Jan-2018 Inactive Comments:1 rambo as directed ZOSTAVAX, 12789TUT/0.65ML (Subcutaneous Solution Reconstituted) 1 For Solution once [...] Start : 04-Jan-2017 End : 04-Jan-2017 Discontinued Comments:[facility] er FLEXERIL, 10MG (Oral Tablet) 1 (one) [...] : 13-Nov-2013 End : 13-Nov-2013 Discontinued Comments:ID [id number] Medrol 4 MG Oral Tablet Therapy Pack [...] 18-Jan-2017 End : 27-Jul-2017 Discontinued Vitamin D3 91142 UNIT Oral Tablet 1 (one) Tablet Tablet once a week for 60 days Quantity: 8 {Tablet} Refills: 0 Ordered:04-Jan-2017 Slarb UTILITY LOCATOR, Naomi Start : 24-Nov-2016 End : 04-Jan-2017 [...] for Tdap vaccination (Renamed from Need for mlapgpngcb-asspwjp-lvhinbeji (Tdap) vaccine, adult/adolescent) (Z23, V06.1) Status: Inactive as of 12-Dec-2015 Other and unspecified hyperlipidemia (E78.5, 272.4) Status: Inactive as of 24-Jul-2013 Pharyngitis, acute (J02.9, 462) Comments: rapid strep negativeCulture Status: Inactive as of 20-Jan-2016 Pneumonitis (J18.9, 486) Status: Inactive as of 14-May-2014 Pre-operative exam (Renamed from Preop examination) (Z01.818, V72.84) Comments: Getting 4 tooth out 07/17 next week, [place] [facility] MARTHA has CPAP but not been using it for 2 years, need to see Bavis for retitration.Cr : 1.77 , repeat labs, US kidneyDM type 2: HBa1c 5.4 BMI:(obesit y increase the risk of wound infection, PE.Not malnourishedLabs:CBCCMPPT/INRtype and screen gel(77306)EK06/10/16: no acute changesHas good social support and [...] under good control Patient to use Mucinex izrz-azv-uirjifd which helped her. Status: Inactive as of [...] Completed Comments: 2000 Tubal ligation 1963 Completed [facility] Left endolymphatic sac Completed decompression with shunt and middle ear infusion with decadron 03/05 Date Value Details 01-Aug-2018 CTA Chest W/WO Contrast Result: Comments: See Note; NOTES: [facility] Imaging Services [address] [place] [address] CTA Chest W/WO Contrast MR#: [id number] Acct: [id number] Name: ELIZABETH TORO Rep #: [id number] : 1950 F 67 From: Hardeep Calix MD PCP: Eli Bowman NP Status: REG CLI Study: CTA Chest W/WO Contrast Date of Exam: 08/01/18 Exam# [id number] Ordering Dr: Eli Bowman STUDY: CTA CHEST/T [...] Service support , CC: Eli Bowman NP Maintenance Supervisor 2Nd Shift: Signed 29-Jul-2018 Chest PA and Lateral Result: Comments: See Note; NOTES: [facility] Imaging Services [address] [place] [address] Chest PA and Lateral MR#: [id number] Acct: [id number] Name: ELIZABETH TORO Rep #: [id number] : 1950 F 67 From: Cami Klein MD PCP: Eli Bowman NP Status: REG CLI Study: Chest PA and Lateral Date of Exam: 07/29/18 Exam# [id number] Ordering Dr: Eli Bowman STUDY: X-RAY CHEST [...] Service support , CC: Eli Bowman NP Maintenance Supervisor 2Nd Shift: Signed 21-Apr-2018 Downtime Report Result: Comments: See Note; NOTES: [facility] Medical Records Department [address] [place] [address] Downtime Report MR#: [id number] Acct: [id number] Name: ELIZABETH TORO Rep #: : 1950 67 From: Alon Klein PCP: Eli Bowman NP Status: REG RCR This patient was seen during an EMR downtime April 04, 2018 - April 11, 2018. This patient may have a combination of p aper and electronic documentation or all paper documentation. All documentation is viewable within the e-chart portion of [employer] for each patient visit. 12-Apr-2018 NCS and/or EMG Patient Result: Comments: See Note; NOTES: [facility] Pulmonary Services/Neurology [address] [place] [address] MR#: [id number] Acct: [id number] Name: ELIZABETH TORO Rep #: [id number] : 1950 67 From: Kal Hernandez MD [...] ____ Kal Hernandez MD CC: Eli Bowman TRIMMER MACHINE; Kal Hernandez MD Date Dictated: 04/12/18949 Date Transcribed: 04/12/18949 Maintenance Supervisor 2Nd Shift: MOHIT Signed 01-Feb-2018 PT D/C Summary (1) Result: Comments: See Note; NOTES: [facility] [address] [place] [address]. [address] [place] [phone] Fax REHABILITATION SERVICES DISCHAR SUMMARY MR#: [id number] Acct: [id number] Name: ELIZABETH TORO Rep #: [id number] : 1950 67 From: Cristopher Francis PT, ATC Referring DrJose: Mayda Dobbins DO Status: REG R Insurance: [facility] PART A B PHYSICIAN [employer] CO [...] please feel free to call me at [phone]. Thank you for the referral of this patient. Sincerely, Cristopher Francis PT, <Electronically signed by Andrea Francis PT, ATC> 02/01/18 0823 CC: Eli Bowman TRIMMER MACHINE; Mayda Dobbins DO [facility] Signed 30-Dec-2017 Inital Evaluation (1) - PT Result: Comments: See Note; NOTES: [facility] [facility] [address] [place] [address] Fax REHABILITATION SERVICES INITIAL EVALUATION MR#: [id number] Acct: [id number] Name: ELIZABETH TORO Rep #: [id number] : 1950 67 From: Cristopher Francis PT, ATC Referring DrJose: Mayda Dobbins DO Status: REG RCR Insurance: [employer] PART A B PHYSICIAN [employer] CO [...] to be FAXED BACK to us at [phone] for Medicare purposes. Please let me know [...] Operative Report Result: Comments: See Note; NOTES: [facility] Medical Records Department [address] [place] [address] Operative Report 10/08/172017 MR#: [id number] Acct: [id number] Name: XAVIER TORO Rep #: [id number] : 1950 67 From: Oscar Winston MD PCP: Eli Bowman NP Status: REG [facility] Y Location: [place] [address] Problem List (1) Intrinsic (urethral) sphincter deficiency [...] Discharge Instruction Result: Comments: See Note; NOTES: [facility] Medical Records Department [address] [place] [address] Instructions for Home/Discharge Instructions 10/08/171950 MR#: [id number] Acct: [id number] Name: ELIZABETH TORO Rep #: [id number] : 1950 67 From: Oscar Winston MD PCP: Eli Bowman NP Status: REG [facility] Discharge Diet: Light diet - advance as [...] and Lateral Result: Comments: See Note; NOTES: [facility] Imaging Services [address] [place] [address] Chest PA and Lateral MR#: [id number] Acct: [id number] Name: JAYYELIZABETH A Rep #: [id number] : 1950 F 67 From: Yury Arthur MD PCP: Eli Bowman Status: REG CLI Study: Chest PA and Lateral Date of Exam: 08/30/17 Exam# [id number] Ordering Dr: Mayda Dobbins DO STUDY: X-RAY CHES T REASON FOR EXAM: Female, 67 years old. Difficulty breathing TECHNIQUE: PA and lateral views of the chest. COMPARISON: Chest x-rays from December 08, 2015. FINDIN GS: The lungs are clear and expanded. There is no demonstrated pleural abnormality. Normal size heart. Normal mediastinum and atbby. Normal visualized pulmonary arteries. Normal visualized aortic [...] , CC: Eli Bowman; Mayda Dobbins DO Maintenance Supervisor 2Nd Shift: Signed 20-Jul-2017 L/S Spine Min 4 Views Result: Comments: See Note; NOTES: [facility] Imaging Services [address] [place] [address] L/S Spine Min 4 Views MR#: [id number] Acct: [id number] Name: ELIZABETH TORO Rep #: [id number] : 1950 F 66 From: Dionte Lujan DO PCP: Eli Bowman Status: REG CLI Study: L/S Spine Min 4 Views Date of Exam: 07/20/17 Exam# [id number] Ordering Dr: Edita Cabral MD STUDY: X-RAY [...] Fax CC: Eli Bowman; Edita Cabral MD Maintenance Supervisor 2Nd Shift: Signed 20-Jul-2017 Shoulder min 2 Views Result: Comments: See Note; NOTES: [facility] Imaging Services [address] [place] [address] Shoulder min 2 Views MR#: [id number] Acct: [id number] Name: ELIZABETH TORO Rep #: [id number] : 1950 F 66 From: Dionte Lujan DO PCP: Eli Bowman Status: REG CLI Study: Shoulder min 2 Views Date of Exam: 07/20/17 Exam# [id number] Ordering Dr: Edita Cabral MD STUDY: X-RAY - RIGHT [facility] REASON FOR EXAM: Female, 66 [...] , CC: Eli Bowman; Edita Cabral MD Maintenance Supervisor 2Nd Shift: Signed 11-May-2017 PT D/C Summary (1) Result: Comments: See Note; NOTES: [facility] [address] [place] [address] Fax REHABILITATION SERVICES DISCHAR GE SUMMARY MR#: [id number] Acct: [id number] Name: ELIZABETH TORO Rep #: [id number] : 1950 66 From: Naomi COMER Referring [...] please feel free to call me at [phone]. Thank you for the referral of this patient. Sincerely, Naomi Osorio <Electronically signed by Naomi Osorio MPT> 09/17 0919 CC: Nunu Root; Eli Bowman Signed 14-Apr-2017 Inital Evaluation (1) - PT Result: Comments: See Note; NOTES: [facility] [address] [place] [address] Fax REHABILITATION SERVICES INITIAL EVALUATION MR#: [id number] Acct: [id number] Name: ELIZABETH TORO Rep #: [id number] : 1950 66 From: Naomi COMER Referring [...] to be FAXED BACK to us at [phone] for Medicare purposes. Please let me know if there are questions or concerns regarding this plan of care. Physician Signature: Date: <Electronically signed by Naomi Osorio MPT> 04/14/17 1906 CC: Nunu Root; Eli Bowman Signed For Medicare only, by sign ing this I certify the plan of care. Physicians Signature Date 08-Apr-2017 Knee 4 or More Views Result: Comments: See Note; NOTES: [facility] Imaging Services [address] [place] [address] Verdana 4d Knee 4 or More Views MR#: [id number] Acct: [id number] Name: ELIZABETH TORO p #: [id number] : 1950 F 66 From: Chalino Mancia MD PCP: Eli Bowman Status: REG CLI Study: Knee 4 or More Views Date of Exam: 04/08/17 Exam# [id number] Ordering Dr: Mayda Dobbins DO STUDY: X-RAY [...] , CC: Eli Bowman; Mayda Dobbins DO Maintenance Supervisor 2Nd Shift: Signed 08-Apr-2017 Knee 4 or More Views Result: Comments: See Note; NOTES: [facility] Imaging Services [address] [place] [address] Verdana 4d Knee 4 or More Views MR#: [id number] Acct: [id number] Name: ELIZABETH TORO Viridiana p #: [id number] : 1950 F 66 From: Chalino Mancia MD PCP: Eli Bowman Status: REG CLI Study: Knee 4 or More Views Date of Exam: 04/08/17 Exam# [id number] Ordering Dr: Mayda Dobbins DO STUDY: X-RAY [...] , CC: Eli Bowman; Mayda Dobbins DO Maintenance Supervisor 2Nd Shift: Signed 15-Mar-2017 Sleep Study Report Result: Comments: See Note; NOTES: [facility]ORDER [facility] [address] [place] [address] Polysomnography with NCPAP MR#: [id number] Acct: [id number] Name: JAYYELIZABETH A Re p #: [id number] : 1950 66 From: Kal Hernandez MD [...] version). Please note that a reference to [facility] AHI in this report is consistent with the current Hypopnea definition according to Medicare Criteria and an AASM AHI reference is consistent with the current Hypopnea defini tion according to the AASM criteria and is recognized by [facility] as the RDI. PROCEDURE: The study was attended continuously by a hvac technician. Monitored parameters included left and right [...] body mass index of 30.9 and an [place] Sleepiness Scale score of 6. There is [...] requested. Kal Hernandez MD T: NTS JOB: [id number] CC: Kal Hernandez MD 1151 1151 03/15/17 1451 <Electronically signed by Kal Hernandez MD> Date Kal Hernandez MD Co-signature (if applicable) Date Signed 05-Jan-2017 Esophagus Only Result: Comments: See Note; NOTES: [facility] Imaging Services [address] [place] [address] Verdana 4d Esophagus Only MR#: [id number] Acct: [id number] Name: ELIZABETH TORO Rep #: [id number] : 1950 F 66 From: Gabriela Ragland MD PCP: Eli Bowman Status: REG CLI Study: Esophagus Only Date of Exam: 01/05/17 Exam# [id number] Ordering Dr: Sofia Bragg MD STUDY: AIR-CONTRAST [...] , CC: Eli Bowman; Sofia Bragg MD Maintenance Supervisor 2Nd Shift: Signed 29-Dec-2016 Emergency Department Summary Result: Comments: See Note; NOTES: [facility] Medical Records Department [address] [place] [address] Emergency Department Summary MR#: [id number] Acct: [id number] Name: XAVIER TORO Rep #: [id number] : 1950 66 From: Sofia Bragg MD PCP: Eli Bowman Status: DEP ER DATE OF SERVICE: 12/29/2016 CHIEF COMPLAINT: Sore throat. HISTORY OF PRESENT ILLNESS: This is a 66-year- old woman that states she was at [employer], choked on a piece of potato 5 [...] the case with Dr. Pena who is double end tenoner setter for GI and he suggested ordering an [...] C: Eli Pena MD T: NTS JOB: [id number] 12/29/16 <Electronically signed by Sofia Bragg MD> Date Sofia Bragg MD Cosigner Signature (If Indicated): Date CC: Eli Bowman; Junior Pena Date Dictated: 12/29/161828 Date Transcribed: 12/29/161828 Maintenance Supervisor 2Nd Shift: Signed 29-Dec-2016 Discharge Instruction Result: Comments: See Note; NOTES: [facility] Medical Records Department [address] [place] [address] Discharge Instruction 12/29/161829 MR#: [id number] Acct: [id number] Name: ELIZABETH TORO Rep #: [id number] : 1950 66 From: Sofia Bragg MD [...] your Primary Care Provider. Call [facility] ([phone] ) or report to the closest Emergency Room. Call 911 if necessary. 12/29/161832 <Electronically signed by Sofia Bragg MD> Date Sofia elliott MD Cosigner Signature (If Indicated): Date CC: Eli Bowman 07-Aug-2016 Sleep Study Report Result: Comments: See Note; NOTES: [facility] [address] [place] [address] Split Night Sleep Study MR#: [id number] Acct: [id number] Name: ELIZABETH TORO Rep #: [id number] : 1950 65 From: Kal Hernandez MD PCP: Donnie Gonzales Status: REG CLI Ordering DrJose: Donnie Gonzales Date: 08/03/16 Sex: F C DATE OF SERVICE: 08/03/2016 SCORING RULES: Respiratory ev ents were acquired and scored in accordance with the Recommended Standards and Specifications as outlined in the AASM Manual for the Scoring of Sleep and Associated Events ( most recent version). Please note that a reference to [facility] AHI in this report is consistent with the current Hypopnea definition according to Medicare Criteria and an [facility] AHI reference is consistent with the current Hypopnea defin ition according to the AASM criteria and is recognized by [facility] as the RDI. PROCEDURE: The study was attended continuously by a hvac technician. Monitored parameters included left and right [...] a body mass index of 29.3 and [place] Sleepiness Scale score of 2. There is [...] humidity. Kal Hernandez MD T: NTS JOB: [id number] CC : Kal Hernanedz MD 1144 1144 08/07/16 0959 <Electronically signed by Kal Hernandez MD> Date Kal Hernandez MD Co-signature (if applicable) Date Signed -Aug-2016 Kidney and Bladder Result: Comments: See Note; NOTES: [facility] Imaging Services [address] [place] [address] Verdana 4d Kidney and Bladder MR#: [id number] Acct: [id number] Name: ELIZABETH TORO Rep #: [id number] : 1950 F 65 From: Anibal Lan MD PCP: Donnie Gonzales Status: [facility] Study: Kidney and Bladder Date of Exam: 08/04/16 Exam# [id number] Ordering Dr: Beto Henry MD UDY: RENAL [...] Anibal Lan MD at 11:16 EDT Tel [phone], Service support [phone], CC: Soumya Henry M.D.; Donnie Gonzales Maintenance Supervisor 2Nd Shift: Signed 23-Jun-2016 Operative Report Result: Comments: See Note; NOTES: [facility] Medical Records Department [address] [place] [address] Operative Report MR#: [id number] Acct: [id number] Name: ELIZABETH TORO Rep #: [id number] : 1950 65 From: Gm Brush MD PCP: Donnie Gonzales Status: REG [facility] DATE OF SERVICE: 06/22/2016 DATE OF PROCEDURE: June 22, 2016 SURGEON: Gm Brush M.D. MINING PLANT OPERATOR: Lia jacinto. ANESTHESIA: Gem Shelby and [...] ovaries. Gm Brush MD T: NTS JOB: [id number] 06/23/16 0725 <Electronically signed by Gm Brush MD> Date __ Gm Brush MD Cosigner Signature (If Indicated): Date CC: Gm Brush MD; Donnie Nolasco Dicta nahed: 06/22/161102 Date Transcribed: 06/22/161102 Maintenance Supervisor 2Nd Shift: Signed 22-Jun-2016 Discharge Instruction Result: Comments: See Note; NOTES: [facility] Medical Records Department [address] [place] [address] Instructions for Home/Discharge Instructions 06/22/16 0904 MR#: [id number] Acct: [id number] Name: ELIZABETH TORO Rep #: [id number] : 1950 65 From: Gm Brush MD PCP: Donnie Gonzales Status: REG [facility] Discharge Diet: No Restrictions Discharge Activity: Return [...] CC: Donnie Gonzales 10-Jun-2016 ELECTROCARDIOGRAM, COMPLETE (ECG) (68778) Result: [MEASUREMENTS ANALYSIS] Date of Test: 06/10/2016 09:39:53; Heart Rate: 58; IN Interval: 208; QRS: 86; QT Interval: 480; Corrected QT Interval (QTc): 477; P Wave [place]: 45; QRS Wave [place]: 11; T Wave [place]: 23; Blood Pressure: 112/70 [ECG DIAGNOSTIC STATEMENTS] Date of Test: 06/10/2016 09:39:53; Summary: Sinus Bradycardia - Negative T-waves -May be normal - possible Anteroseptal ischemia. BORDERLINE 13-Apr-2016 Operative Report Result: Comments: See Note; NOTES: [facility] Medical Records Department [address] [place] [address] Operative Report MR#: [id number] Acct: [id number] Name: XAVIER TORO LEILANI Schaefer Rep #: [id number] : 1950 65 From: Gm Brush MD PCP: Edita Cabral MD Status: [facility] DATE OF SERVICE: 04/13/2016 DATE [...] curettings. Gm Brush MD T: NTS JOB: [id number] 04/13/16 1838 <Electronically signed by Gm Brush MD> Date Gm Brush MD Cosigner Signature (If Indicated): Date CC: Edita Young; Gm Brush MD Date Dictated: 04/13/16 1031 Date Transcribed: 04/13/16 103 Maintenance Supervisor 2Nd Shift: Signed 13-Apr-2016 Discharge Instruction Result: Comments: See Note; NOTES: [facility] Medical Records Department [address] [place] [address] Instructions for Home/Discharge Instructions 04/13/16 1003 MR#: [id number] Acct: [id number] Name: ELIZABETH TORO Rep #: [id number] : 1950 65 From: Gm Brush MD PCP: Edita Cabral MD Status: REG [facility] Discharge Diet: No Restrictions Discharge Activity: R [...] mg PO DAILY 04/10/16 Hydrocodone Bitart/Apap 5-325 [[place] 5MG-325MG] 1 tablet PO Q4H PRN PRN #10 tablet 04/13/16 The followi ng prescriptions were given: Hydrocodone Bitart/Apap 5-325 [[place] 5MG-325MG] 1 tablet PO Q4H PRN PRN #10 tablet PRN Reason: Mod-Severe Pain () Please Follow Up With: Gm Brush When: 2-3 jason bowers 04/13/16 1004 <Electronically signed by Gm Brush MD> Date Gm Brush MD CC: Edita Cabral MD 22-Mar-2016 Emergency Department Summary Result: Comments: See Note; NOTES: [facility] Medical Records Department [address] [place] [address] Emergency Department Summary MR#: [id number] Acct: [id number] Name: ELIZABETH TORO Rep #: [id number] : 1950 65 From: Nando Fuller MD [...] C: Edita Brush MD T: NTS JOB: [id number] 03/22/16 0247 <Electronically signed by Nando Fuller MD&a mp;#62; Date Nando Fuller MD Cosigner Signature (If Indicated): Date CC: Edita Cabral MD; Otilia Brush MD Date Dictated: 03/21/1650 Date Transcribed: 03/21/1650 Maintenance Supervisor 2Nd Shift: Signed 21-Mar-2016 Discharge Instruction Result: Comments: See Note; NOTES: [facility] Medical Records Department [address] [place] [address] Discharge Instruction 03/21/168 MR#: [id number] Acct: [id number] Name: ELIZABETH TORO Rep #: [id number] : 1950 65 From: Nando Fuller MD [...] ems, contact your doctor. Call [facility] ([phone]) or report to the closest Emergency Room. Call 911 if necessary. 03/21/16 0049 <Electronically signed by Nando Fuller MD&#6 2; Date Nando Fuller MD Cosigner Signature (If Indicated): Date CC: Edita Cabral MD 20-Mar-2016 Transvaginal Non- Result: Comments: See Note; NOTES: [facility] Imaging Services [address] [place] [address] Verdana 4d Transvaginal Non- MR#: [id number] Acct: [id number] Name: ELIZABETH DIAZ Rep #: [id number] : 1950 F 65 From: Jose Fu PCP: Edita Cabral MD Status: REG ER Study: Transvaginal Non- Date of Exam: 03/20/16 Exam# [id number] Ordering Dr: Oz Fuller MD STUDY: ULTRASOUND [...] DO at 0:42 EDT , Service support [phone], Fax CC: Edita Cabral MD; Nando Fuller MD Maintenance Supervisor 2Nd Shift: Signed 25-Feb-2016 Esophagus Only Result: Comments: See Note; NOTES: [facility] Imaging Services [address] [place] [address] Verdana 4d Esophagus Only MR#: [id number] Acct: [id number] Name: XAVIER TORO Rep #: [id number] : 1950 F 65 From: Anibal Lan MD PCP: Edita Cabral MD Status: REG CLI Study: Esophagus Only Date of Exam: 02/25/16 Exam# [id number] Ordering Dr: Donnie Gonzales STUDY: X-RAY - [...] Anibal Lan MD at 10:35 EDT Tel [phone], Service support [phone], Fax RAD/Esophagus Only IMPRESSION: Normal plain film x-ray examination (barium swallow) of the esophagus. Electronically Signed: Anibal Lan MD at 10: 35 EDT Tel [phone], Service support [phone], CC: Edita Cabral MD; Donnie Gonzales Maintenance Supervisor 2Nd Shift: Signed 25-Feb-2016 Esophagus Only Result: Comments: See Note; NOTES: [facility] Imaging Services [address] [place] [address] Verdana 4d Esophagus Only MR#: [id number] Acct: [id number] Name: XAVIER TORO Rep #: [id number] : 1950 F 65 From: Anibal Lan MD PCP: Eidta Cabral MD Status: REG CLI Study: Esophagus Only Date of Exam: 02/25/16 Exam# [id number] Ordering Dr: Donnie Gonzales ADDENDUM by Anibal Lan MD on 03/31/16 at 0747 ADDENDUM This is an addendum report for PQRS purposes. 19 images were obtained. Electronically Signed: Anibal Lan MD at 7:47 EDT Tel [phone], Service support [phone], 03/31/16 0747 Date cc: Edita Cabral MD; [...] Anibal Lan MD at 10:35 EDT Tel [phone], Service support [phone], RAD/Esophagus Only IMPRESSION: Normal plain film x-ray examination (barium swallow) of the esophagus. Electronically Signed: Anibal Lan MD at 10:35 EDT Tel [phone], Service support [phone], CC: Edita Cabral MD; Donnie Gonzales Maintenance Supervisor 2Nd Shift: Signed 10-Dec-2015 12 Lead Electrocardiogram Result: Comments: See Note; NOTES: [facility] Cardiovascular Services [address] [place] [address] 12 Lead EKG 12/08/15 1551 MR#: [id number] Acct: [id number] Name: ELIZABETH DASILVA Rep #: [id number] : 1950 65 From: Francisco Muller MD [...] ECG Confirmed by FRANCISCO MULLER MD ([id number]), mapping editor ZUNILDA KLEIN ([id number]) on 12/10/2015 9:33:10 AM Referred By: ROMEL Confirmed By:FRANCISCO MULLER MD 12/10/15 0933 Date ___ Francisco Muller MD CC: Edita Cabral MD Date Dictated: 12/08/151550 Date Transcribed: 12/08/151550 Maintenance Supervisor 2Nd Shift: Signed 10-Dec-2015 Emergency Department Summary Result: Comments: See Note; NOTES: [facility] Medical Records Department [address] [place] [address] Emergency Department Summary MR#: [id number] Acct: [id number] Name: ELIZABETH TORO Rep #: [id number] : 1950 65 From: Sisi Severino MD [...] Dominguez Galeano C: Edita Cabral MD T: [facility] JOB: [id number] 12/10/15 0232 <Electronically deepti d by Sisi Severino MD> Date Sisi Severino MD Cosigner Signature (If Indicated): Date Dominguez C: Edita Cabral MD Date Dictated: 12/08/151705 Date Transcribed: 12/08/151705 Maintenance Supervisor 2Nd Shift: Signed 08-Dec-2015 Discharge Instruction Result: Comments: See Note; NOTES: [facility] Medical Records Department [address] [place] [address] Discharge Instruction 12/08/15 1659 MR#: [id number] Acct: [id number] Name: ELIZABETH TORO Rep #: [id number] : 1950 65 From: Sisi Severino MD [...] problems, contact your doctor. Call [facility] ([phone]) or report to the closest Emergency Room. Call 911 if necessary. 12/08/15 1701 <Electronically signed by Sisi young MD> Date Sisi Severino MD Cosigner Signature (If Indicated): Date CC: Edita Cabral MD 08-Dec-2015 Chest PA and Lateral Result: Comments: See Note; NOTES: [facility] Imaging Services [address] [place] [address] Verdana 4d Chest PA and Lateral MR#: [id number] Acct: [id number] Name: ELIZABETH TORO Rep #: [id number] : 1950 F 65 From: Malaika Diana MD PCP: Edita Cabral MD Status: REG ER Study: Chest PA and Lateral Date of Exam: 12/08/15 Exam# [id number] Ordering Dr: Sisi Severino MD STUDY: X-RAY [...] MD at 16:41 EST , Service support [phone], RAD/Chest PA and Lateral IMPRESSION: No acute disease is demonstrated. Electronic ally Signed: Malaika Diana MD at 16:41 EST , Service support [phone], CC: Edita Cabral MD; Sisi Severino MD Maintenance Supervisor 2Nd Shift: Signed 16-Sep-2015 EKG (13334) Result: [MEASUREMENTS ANALYSIS] Date of Test: 09/16/2015 09:46:37; Heart Rate: 74; IN Interval: 192; QRS: 88; QT Interval: 406; Corrected QT Interval (QTc): 430; P Wave Paris: 28; QRS Wave [place]: -3; T Wave [place]: -1; Blood Pressure: 104/60 [ECG DIAGNOSTIC STATEMENTS] Date of Test: 09/16/2015 09:46:37; Summary: Sinus Rhythm Low voltage in precordial leads. - Nonspecific T-abnormality. ABNORMAL 11-Feb-2015 Kidney and Bladder Result: Comments: See Note; NOTES: [facility] Imaging Services [address] [place] [address] Ultrasound Report MR#: [id number] Acct: [id number] Name: ELIZABETH TORO Rep #: [id number] : 1950 F 64 From: Mina Cade MD PCP: Edita Cabral MD Status: REG CLI Study: Kidney and Bladder Date of Exam: 02/11/15 Exam# [id number] Ordering Dr: Edita Cabral MD STUDY: RE [...] MD at 23:11 EDT , Service support [phone], CC: Edita Cabral MD Maintenance Supervisor 2Nd Shift: Signed 24-Jul-2014 PT Discharge Summary Result: Comments: See Note; NOTES: [facility] [address] [place] [address]. [address] [place], [place] [address] Fax REHABILITATION SERVICES DISCHARGE SUMMARY MR#: [id number] Acct: [id number] Name: ELIZABETH TORO Rep #: [id number] : 1950 63 From: Naomi Osorio Referring [...] clinic. Naomi Osorio, PT T: [facility] JOB: [id number] <Electronically signed by Faraz Osorio > 07/24/14 7691 CC: Signed 15-Jun-2014 PT Discharge Summary Result: Comments: See Note; NOTES: [facility] [address] [place] [address]. [address] [place] [address] Fax REHABILITATION SERVICES DISCHARGE SUMMARY MR#: [id number] Acct: [id number] Name: ELIZABETH TORO Rep #: [id number] : 1950 63 From: Naomi Osorio Referring [...] Sincerely, Naomi Osorio, PT T: [facility] JOB: [id number] <Electronically signed by Naomi Osorio & amp;#62; 06/15/14 1410 CC: Signed 25-May-2014 Inital Evaluation - PT Result: Comments: See Note; NOTES: [facility] [address] [place] [address]. [address] [place] [address] Fax REHABILITATION SERVICES INITIAL EVALUATION MR#: [id number] Acct: [id number] Name: ELIZABETH TORO Rep #: [id number] : 1950 63 From: Naomi Osorio Referring DrJose: Edita Cabral MD Status: REG RCR Insurance: [facility] PART [facility] B Eval Date: PHYSICIAN MUTUAL [...] anterolateral shoulder. She is right-handed. 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 Naomi Osorio, PT T: [facility] JOB: [id number] <Electronically signed by Naomi Osorio > 4 1241 CC: Signed For Medicare only, by signing this I certify the plan of care. Physicians Signature Date 23-May-2014 Nuclear Stress Test - Chemical Result: Comments: See Note; NOTES: [facility] Imaging Services [address] [place] [address] Nuclear Medicine Report MR#: [id number] Acct: [id number] Name: ELIZABETH TORO Rep #: [id number] : 1950 F 63 From: Tano Nielsen MD PCP: Edita Cabral MD Status: REG CLI Study: Nuclear Stress Test - Chemical Date of Exam: 05/23/14 Exam# [id number] Ordering Dr: Álvaro Cabral MD EXERCISE TOLERANCE [...] LVEF of 61%. CC: Edita Cabral MD Maintenance Supervisor 2Nd Shift: PHILLIPS Signed 14-May-2014 Shoulder min 2 Views Result: Comments: See Note; NOTES: [facility] Imaging Services [address] [place] [address] Radiology Report MR#: [id number] Acct: [id number] Name: ELIZABETH TORO Rep #: [id number] : 1950 F 63 From: Hardeep Dumont MD PCP: Erna Kingston DO Status: REG CLI Study: Shoulder min 2 Views Date of Exam: 05/14/14 Exam# [id number] Ordering Dr: Edita Cabral MD STUDY: X-RAY [...] Silvio Dumont MD at 12:18 EDT , [employer] ce support [phone], CC: Edita Cabral MD; Erna Kingston DO Maintenance Supervisor 2Nd Shift: Signed 30-Apr-2014 CTA Chest W/WO Contrast Result: Comments: See Note; NOTES: [facility] Imaging Services [address] [place] [address] CAT Scan Report MR#: [id number] Acct: [id number] Name: ELIZABETH TORO Rep #: [id number] : 1950 F 63 From: Hardeep Calix MD PCP: Erna Kingston DO Status: REG CLI Study: CTA Chest W/WO Contrast Date of Exam: 04/30/14 Exam# [id number] Ordering Dr: Erna Kingston DO STUDY: CTA [...] at 19 :01 EDT , Service support [phone], CC: Erna Kingston DO Maintenance Supervisor 2Nd Shift: Signed Family History Unknown Family Member Name [...] kg/m2 Body Surface Area Calculated 1.91 m2 40-Cfq-70589:04 Pulse 63 /min Comments: Pattern: Regular Respiration [...] kg/m2 Body Surface Area Calculated 1.91 m2 75-Ntq-352172:07 Pulse 73 /min Comments: Pattern: Regular Respiration [...] kg/m2 Body Surface Area Calculated 1.96 m2 75-Cxc-689380:45 Pulse 80 /min Comments: Pattern: Regular Respiration [...] kg/m2 Body Surface Area Calculated 1.99 m2 18-Ahv-060791:03 Pulse 70 /min Comments: Pattern: Regular Respiration [...] kg/m2 Body Surface Area Calculated 1.96 m2 51-Jok-871707:01 Temperature 98.1 f Comments: Method: Oral Pulse [...] kg/m2 Body Surface Area Calculated 1.96 m2 88-Ehj-620425:00 Temperature 97.6 f Comments: Method: Oral Pulse [...] 0.00 cm Results Date Description Value Details 4-Wfx-429893:57 CREATININE FINGERSTICK Comments: [facility] [address] [place] [address] EGFR WB 55.0000 mL/min (Abnormal) CREATININE WB 1.1 mg/dL (Abnormal) Range: 0.55-1.02 34-Smi-278281:19 D-Dimer (95809) Comments: PATIENT NOT FASTINGPERFORMED BY: [employer] [place] [id number] D-Dimer 0.57 {mg/L_FEU} (Abnormal) Range: 0.00-0.49 Comments: According to the assay manager baby's published package insert, anormal (<0.50 mg/L FEU) D-dimer result in conjunction with a non-highclinical probability assessment, excludes deep vein thrombosis (D VT)and pulmonary embolism (PE) with high sensitivity. .D-dimer values increase with age and this can make VTE exclusion ofan older pop ulation difficult. To address this, the [employer], based on best available evidence [...] and an80 year old 0.80 mg/L FEU. 56-Vms-628451:19 Troponin I (67623) Comments: PATIENT NOT FASTINGPERFORMED BY: [employer] Ffuvnz2455 908 DevicesAtrium Health [facility] Island [id number] Troponin I <0.01 ng/mL (Normal) Range: 0.00-0.04 50-Nee-589249:19 CPK MB FRACTION (06333) Comments: PATIENT NOT FASTINGPERFORMED BY: [facility] [facility] [id number] Creatine Kinase (CK), MB 2.5 ng/mL (Normal) Range: 0.0-5.3 05-Qmj-384273:19 CREATINE KINASE TOTAL (60936) Comments: PATIENT NOT FASTINGPERFORMED BY: [facility] [facility] [id number] Creatine Kinase,Total 103 U/L (Normal) Range: 24-173 :16 CBC-Complete Blood Cnt No Diff Comments: [facility] Oqtguxsjor[address] [facility] [place], [place], [address] MPV 10.5 fL (Normal) Range: 6.2-12.0 PLT [...] Range: 4.4-11.0 :16 Microalb:Creat Ratio,Random UR Comments: [facility] [address] [facility] [address] [place], [place], [address] MALB:CREAT Test not performed {mg/g_CRE} (Normal) MICROALBUMIN,UR < 5.0 mg/L (Normal) UR CREAT < 13.00 mg/dL (Normal) :16 PTHIN 51.5 pg/mL (Normal) Comments: [facility] [address], [id number] Range: 18.4-80.1 :16 Renal Profile Comments: [facility] Nhnygpvtgw26[address], [address] CO2 28.0 mmol/L (Normal) Range: 21.0-32.0 CL [...] Comments: Please note revised GLUCOSE reference range grgcthopa22/02/2018. 75-Lmp-21922:16 Vitamin D,25 Hydroxy Comments: [facility] Pnjod[address]us[address], [address] Vitamin D 25-OH 69.4 ng/mL (Normal) Range: 29.95-100.01 Comments: Vitamin D 25(OH) Status Range Deficiency <20 ng/mL (50nmol/L) Insuffciency 20 - 30 ng/mL (50 - 75 nmol/L) Sufficiency 30 - 100 ng/mL (75 - 250 nmol/L) Toxicity >100 ng/mL (>250 nmol/L) :04 HgA1C , Office (14604) HgA1C , Office 5.5 % (Normal) Range: 4.6 - 7.1 :23 CALCIFEDIOL (29859) Comments: PATIENT WAS FASTINGPERFORMED BY: [employer] [facility] [id number] Vitamin D, 25-Hydroxy 43.2 ng/mL (Normal) Range: 30.0-100.0 Comments: Vitamin D deficiency has been defined by the [place] of[facility] Hospitalcine and an Endocrine Society practice guideline as alevel of serum 25-OH vitamin D less than 20 ng/mL (1,2).The Endocrine Society went on to further define vitamin Dinsufficiency as a level between 21 and 29 ng/mL (2).1. IOM ([place] of Medicine). 2010. Dietary reference intakes for calcium and D. [place]: The National Academies Press.2. Azael MF, Leslee LEMON, Hillary PHILLIPS, et al. Evaluation, treatment, and prevention of vitamin D deficiency: an Endocrine Society clinical practice guideline. JCEM. 2010; 96(7):1911-30. 11-Jfo-24584:23 CBC, Platelets & Auto Diff Comments: PATIENT WAS FASTINGPERFORMED BY: LabCoSt. Francis Medical CenterXpgvwf8[address] [facility] [id number] (82258) Immature Grans (Abs) 0.0 {x10E3/uL} (Normal) Range: [...] 3.77-5.28 WBC 7.1 {x10E3/uL} (Normal) Range: 3.4-10.8 27-Dai-11994:23 Metabolic Panel, Comprehensive Comments: PATIENT WAS FASTINGPERFORMED BY: LabCoSt. Francis Medical CenterFgqmml0344 [facility] [id number] (26893) ALT (SGPT) 15 [iU]/L (Normal) Range: 0-32 [...] Glucose, Serum 82 mg/dL (Normal) Range: 65-99 58-Hdk-90081:23 MICROALBUMIN: CREATININE RATIO Comments: PATIENT WAS FASTINGPERFORMED BY: SparkroomRUSTMsjkui1344 [facility] [id number] (72208) AND (00758) Alb/Creat Ratio <5.6 {mg/g_creat} (Normal) Range: 0.0-30.0 Albumin, Urine <3.0 ug/mL (Normal) Creatinine, Urine 53.5 mg/dL (Normal) 60-Bsn-451198:31 Metabolic Panel, Basic Comments: PATIENT NOT FASTINGPERFORMED BY: [employer] [facility] [id number] (91350) Calcium, Serum 9.9 mg/dL (Normal) Range: 8.7-10.3 [...] (Normal) Range: 65-99 :55 HgA1C , Office (90114) Comments: 5.5 HgA1C , Office 5.5 % (Normal) Range: 4.6 - 7.1 8-Jvf-112213:22 VITAMIN B12 AND FOLATES Comments: today; PATIENT NOT FASTINGPERFORMED BY: [employer]BuildHenry [facility] Hospital[address] [facility] [id number] (84854) Folate (Folic Acid), Serum >20.0 ng/mL (Normal) Comments: A serum folate concentration of less than 3.1 ng/mL isconsidered to represent clinical deficiency. Vitamin B12 655 pg/mL (Normal) Range: 232-1245 Comments: Please note reference interval change :58 CALCIFEDIOL (07295) Comments: PATIENT NOT FASTINGPERFORMED BY: [employer] Fcudia9561 [facility] [id number] Vitamin D, 25-Hydroxy 25.2 ng/mL (Abnormal) Range: 30.0-100.0 Comments: Vitamin D deficiency has been defined by the [place] ofMedicine and an Endocrine Society practice guideline as alevel of serum 25-OH vitamin D less than 20 ng/mL (1,2).The Endocrine Society went on to further define vitamin Dinsufficiency as a level between 21 and 29 ng/mL (2).1. IOM ([place] of Medicine). 2010. Dietary reference intakes for calcium and D. [place]: The National Academies Press.2. Azael MF, Leslee NC, Hillary PHILLIPS, et al. Evaluation, treatment, and prevention of vitamin D deficiency: an Endocrine Society clinical practice guideline. JCEM. 2010; 96(7):1911-30. 44-Ctp-680773:58 TSH (THYROID STIMULATING Comments: PATIENT NOT FASTINGPERFORMED BY: [employer] Rgxwku7469 [facility] [id number] HORMONE) (00301) TSH 2.410 {uIU/mL} (Normal) Range: 0.450-4.500 :58 CBC WITH MANUAL DIFF (56985) Comments: PATIENT NOT FASTINGPERFORMED BY: [employer] Byahdl4912 [facility] [id number] Immature Grans (Abs) 0.0 {x10E3/uL} (Normal) Range: [...] 3.77-5.28 WBC 7.7 {x10E3/uL} (Normal) Range: 3.4-10.8 58-Cqq-131065:58 Metabolic Panel, Comprehensive Comments: PATIENT NOT FASTINGPERFORMED BY: [facility] Oomwar[address] [facility] [id number] (17411) ALT (SGPT) 13 [iU]/L (Normal) Range: 0-32 [...] (Normal) Range: 65-99 :07 Bedside Glucose Comments: [facility] [address]xwd[address] [place], [place] [address] BEDSIDE GLU 100 mg/dL (Normal) Range: 70-110 Comments: MANAGEMENT OF PATIENT CARE PER NURSING PROTOCOL 55-Hky-421760:14 D-Dimer Quantitative (DVT/PE) Comments: Order Date: 08/30/17Order Info: [id number] - [facility]-DIMERWMer[facility] Zlyksiqtvp6123 [facility] [place], [address] D-DIMER QUANT 0.35 {FEU/ug/m} (Normal) Range: 0.27-0.49 Comments: NORMAL D-Dimer level (<0.50) indicates no DVT or PE. 47-Kds-492919:44 Blood Glucose , Office (61152) Blood Glucose , 129 (Normal) Office :2 Request Problem Final report Comments: PATIENT NOT FASTINGPERFORMED BY: [employer]-BuildCoSt. Francis Medical CenterHquymr17[address] [facility] [id number] Information: MOUTH SRC:MO 1 (Normal) Comments: Inappropriate source for anaerobic culture. A routine aerobic culturewas initiated. Contact the Microbiology Lab for further information. :2 Test Code Change SPR (Normal) Comments: PATIENT NOT FASTINGPERFORMED BY: LabCoSt. Francis Medical CenterInktcp9[address] [facility] [id number] 1 Comments: Please note that the Microbiology test code was changed to reflectthe specimen source or transport received. 03-Jun-20171:21 Upper Respiratory Culture Comments: PATIENT NOT FASTINGPERFORMED BY: [employer] Jftoty8847 [facility] [id number] Result 1 RRF (Normal) Comments: Routine respiratory duyen Upper Respiratory Culture Final report (Normal) 92-Ack-566690:59 Metabolic Panel, Comprehensive Comments: Jul 2017; PATIENT NOT FASTINGPERFORMED BY: [employer] Zfjyzj9890 [facility] [id number] (84821) ALT (SGPT) 16 [iU]/L (Normal) Range: 0-32 [...] Glucose, Serum 80 mg/dL (Normal) Range: 65-99 71-Rnl-364798:59 MAGNESIUM (12656) Comments: today; PATIENT NOT FASTINGPERFORMED BY: [employer] Yrtkqe8911 [facility] [id number] Magnesium, Serum 2.2 mg/dL (Normal) Range: 1.6-2.3 :04 Blood Glucose , Office (52623) Blood Glucose , Office 111 (Normal) :04 HgA1C , Office (34537) HgA1C , Office 5.5 % (Normal) Range: 4.6 - 7.1 :03 CBC W/Diff, Automated Comments: [facility] Fdmildyyxv[address] [place], [address] ; another doc Absolute Lymph 2.35 {X10_3/ul} [...] (Normal) Range: 4.4-11.0 :03 Protein+Creatinine Ratio,Urine Comments: [facility] Idpirkmage[address] [place], [address] PROT:CRE RATIO 403 {mg/g_CRE} (Abnormal) Range: 0-200 PROTEIN,UR.RAN. < 6.0 mg/dL (Normal) UR CREAT 13.90 mg/dL (Normal) :03 PTH,INTACT Comments: [facility] Czt[address]rrbr[address] [place], [address] PTH,Intact 34 pg/mL (Normal) Range: 14-72 :03 Renal Profile Comments: [facility] Eumnfnzmsn[address] [place], [address] CO2 26.0 mmol/L (Normal) Range: 21.0-32.0 CL [...] report for address and phone number VITD [address]10 48.5 pg/mL (Normal) Range: 19.9-79.3 Comments: Performed at: [address] [id number] Director: Navdeep Medley MD, Phone: [phone] 80-Pye-747391:06 Metabolic Panel, Comprehensive Comments: PATIENT NOT FASTINGPERFORMED BY: [facility] [facility] [id number] (54670) ALT (SGPT) 11 [iU]/L (Normal) Range: 0-32 [...] Glucose, Serum 78 mg/dL (Normal) Range: 65-99 32-Oxq-512542:06 CBC, Platelets & Auto Diff Comments: PATIENT NOT FASTINGPERFORMED BY: [facility] [facility] [id number] (00821) Immature Grans (Abs) 0.0 {x10E3/uL} (Normal) Range: [...] 3.77-5.28 WBC 9.3 {x10E3/uL} (Normal) Range: 3.4-10.8 :06 TSH (33796) Comments: PATIENT NOT FASTINGPERFORMED BY: LabCoSt. Francis Medical CenterOtfvfw3705 [facility] [id number] TSH 3.080 {uIU/mL} (Normal) Range: 0.450-4.500 :56 HgA1C , Office (16043) HgA1C , Office 5.5 % (Normal) Range: 4.6 - 7.1 :56 Blood Glucose , Office (75359) Blood Glucose , Office 81 (Normal) :09 LIPID PANEL (05911) Comments: PATIENT WAS FASTINGPERFORMED BY: [facility] Vylhpx9848 [facility] [id number] LDL/HDL Ratio 2.0 {ratio_units} (Normal) Range: 0.0-3.2 [...] COMPREHENSIVE Comments: PATIENT WAS FASTINGPERFORMED BY: [facility] Knabxw4368 [facility] [id number] (10630) ALT (SGPT) 15 [iU]/L (Normal) Range: 0-32 [...] Glucose, Serum 104 mg/dL (Abnormal) Range: 65-99 02-Gme-87470:04 METABOLIC PANEL, COMPREHENSIVE Comments: fax to Dr Henry; PATIENT WAS FASTINGPERFORMED BY: [facility] Xvvmbc1848 [facility] [id number] (36284) ALT (SGPT) 16 [iU]/L (Normal) Range: 0-32 [...] CREATININE RATIO Comments: PATIENT WAS FASTINGPERFORMED BY: i'mmaFormerly [facility] [id number] (04134) AND (82705) Microalb/Creat Ratio <6.3 {mg/g_creat} (Normal) Range: 0.0-30.0 Microalbumin, Urine <3.0 ug/mL (Normal) Creatinine, Urine 48.0 mg/dL (Normal) :04 HGB A1C (80146) Comments: PATIENT WAS FASTINGPERFORMED BY: [employer]6370 [employer] [place] [id number] Hemoglobin A1c 5.7 % (Abnormal) Range: 4.8-5.6 Comments: . Pre-diabetes: 5.7 - 6.4 Diabetes: >6.4 Glycemic control for adults with diabetes: <7.0 :04 CALCIFEDIOL (87263) Comments: PATIENT WAS FASTINGPERFORMED BY: [employer]6370 908 DevicesAtrium Health Mountain [facility] [id number] Vitamin D, 25-Hydroxy 24.2 ng/mL (Abnormal) Range: 30.0-100.0 Comments: Vitamin D deficiency has been defined by the [place] ofMedicine and an Endocrine Society practice guideline as alevel of serum 25-OH vitamin D less than 20 ng/mL (1,2).The Endocrine Society went on to further define vitamin Dinsufficiency as a level between 21 and 29 ng/mL (2).1. IOM ([place] of Medicine). 2010. Dietary reference intakes for calcium and D. [place]: The National Academies Press.2. Azael RUTH, Leslee LEMON, Hillary PHILLIPS, et al. Evaluation, treatment, and prevention of vitamin D deficiency: an Endocrine Society clinical practice guideline. JCEM. 2010; 96(7):1911-30. :04 TSH (THYROID STIMULATING Comments: PATIENT WAS FASTINGPERFORMED BY: [employer]BuildHenry [facility] Hospital[address] [facility] [id number] HORMONE) (81030) TSH 2.710 {uIU/mL} (Normal) Range: 0.450-4.500 :04 LIPID PANEL (25953) Comments: PATIENT WAS FASTINGPERFORMED BY: LabHenry [facility] Hospital[address] [facility] [id number] LDL/HDL Ratio 1.7 {ratio_units} (Normal) Range: 0.0-3.2 [...] AUT DIFF Comments: PATIENT WAS FASTINGPERFORMED BY: LabHenry Ford [facility] Hospital[address] [facility] [id number] (59339) Immature Grans (Abs) 0.0 {x10E3/uL} (Normal) Range: [...] up testing of positive sera with both IN-3 and MPO- ANCA enzyme immunoassays. As many as 5% serumsamp les are positive only by EIA. Ref. AM J Clin Mbuafg4378;111:507-513. CYTOPLASMIC Ab <1:20 {titer} (Normal) :28 Anti-dsDNA Ab Comments: [facility] (refer to report for specific site)refer to report for address and phone number dsDNA AB <1 {IU/mL} (Normal) Range: 0-9 Comments: Negative <5 Equivocal 5 - 9 Positive >9Performed at: [facility] LabHenry [facility] [place], [place] [id number] D irector: Junior Valera PhD, Phone: [phone] :28 Complement C3 Comments: Is Patient Fasting? [facility] (refer to report for specific site)refer to report for address and phone number COMP C3 127 mg/dL (Normal) Range: 82-167 Comments: Performed at: [facility] LabCo[address] [id number] Director: Junior Valera PhD, Phone: [phone] 08-Sep-20168:28 Complement C4 Comments: Is Patient Fasting? [facility] (refer to report for specific site)refer to report for address and phone number COMP C4 31 mg/dL (Normal) Range: 14-44 :28 LEOPOLDO + Protein Elect, Serum Comments: Is Patient Fasting? [facility] (refer to report for specific site)refer to report for address and phone number NOTE: Comment (Normal) Comments: Protein electrophoresis scan will follow via computer,mail, or social welfare administrator delivery. LEOPOLDO RESULT,S Comment: (Normal) Comments: Presence of monoclonal protein is unclear at this time. Suggest repeat in 3 to 6 months if clinically indicated. A/G RATIO 0.9 (Normal) Range: 0.7-1.7 GLOBULIN, TOTAL 3.8 g/dL (Normal) Range: 2.2-3.9 M-SPIKE (Normal) Comments: Not Observed GAMMA GLOBULIN 1.4 g/dL (Normal) Range: 0.4-1.8 BETA GLOBULIN 1.3 g/dL (Normal) Range: 0.7-1.3 ORPZP-6-YJLY 0.9 g/dL (Normal) Range: 0.4-1.0 BPSUT-6-SOGB 0.2 g/dL (Normal) Range: 0.0-0.4 ALBUMIN 3.4 g/dL (Normal) Range: 2.9-4.4 IMMUNOGL M 44 mg/dL (Normal) Range: 26-217 IMMUNO A 614 mg/dL (Abnormal) Range: 87-352 IMMUNO G 1353 mg/dL (Normal) Range: 700-1600 PROTEIN,TOTAL 7.2 g/dL (Normal) Range: 6.0-8.5 :28 Protein+Creatinine Ratio,Urine Comments: [facility] [address]lbug[address] [place], [address] PROT:CRE RATIO 128 {mg/g_CRE} (Normal) Range: 0-200 PROTEIN,UR.RAN. 6.5 mg/dL (Normal) UR CREAT 50.60 mg/dL (Normal) :46 RENAL FUNCTION PANEL (71834) Comments: PATIENT NOT FASTINGPERFORMED BY: LabCoRUSTAqgblm3002 [facility] [id number] Phosphorus, Serum 4.2 mg/dL (Normal) Range: 2.5-4.5 :46 PT (PROTHROMBIN TIME) (78563) Comments: PATIENT NOT FASTINGPERFORMED BY: LabCoRUSTLgtoff7040 [facility] [id number] Prothrombin Time 10.9 {sec} (Normal) Range: 9.1-12.0 INR 1.1 (Normal) Range: 0.8-1.2 Comments: Reference interval is for non-anticoagulated patients. . Suggested INR therapeutic range for Vitamin K anta gonist therapy: Standard Dose (moderate intensity therapeutic range): 2.0 - 3.0 Higher intensity therapeutic range 2.5 - 3.5 :46 METABOLIC PANEL, COMPREHENSIVE Comments: PATIENT NOT FASTINGPERFORMED BY: LabCoRUSTJuycdg6486 [facility] [id number] (06779) ALT (SGPT) 24 [iU]/L (Normal) Range: 0-32 [...] Glucose, Serum 109 mg/dL (Abnormal) Range: 65-99 96-Ttv-946243:46 CBC, PLATELETS & AUT DIFF Comments: PATIENT NOT FASTINGPERFORMED BY: LabCoSt. Francis Medical CenterVjccuw5431 [facility] [id number] Information: [id number] (79653) Immature Grans (Abs) 0.0 {x10E3/uL} (Normal) Range: [...] (Normal) Range: 3.4-10.8 :23 HgA1C , Office (70750) HgA1C , Office 5.4 % (Normal) Range: 4.6 - 7.1 :16 CBC-Complete Blood Cnt No Diff Comments: [facility] Rqbmmmrgpf6907 [place], [address] MPV 8.8 fL (Normal) Range: [...] 4.4-11.0 :16 Serum Creatinine AND GFR Comments: [facility] Xkkymukovf[address] [facility] [address] [place], [place], [address] Estimated CRCL 27.75 ml/min (Normal) EST GFR - AA 37 mL/min (Abnormal) Comments: GFR Calc EST GFR 30 mL/min (Abnormal) Comments: Non- GFR Calc CREAT,SERUM 1.77 mg/dL (Abnormal) Range: 0.55-1.20 Comments: The validity of the calculated GFR AND GFRAA in patients over70 years has not been determined. Clinical correlation isessential. 60-Psc-561229:15 Bedside Glucose Comments: [facility] LaboratoryPoint of Zlkw[address] [place] [address] BEDSIDE GLU 128 mg/dL (Abnormal) Range: 70-110 Comments: Policy and Physicians Orders followedMANAGEMENT OF PATIENT CARE PER NURSING PROTOCOL HYSTERECTOMY SPECIMEN See Note (Normal) Comments: [facility] [address]kekmvr[address] [place], [address] :39 Comments: Patient: ELIZABETH TORO : 1950 (65/) Acct Num: [id number] Phys: Gonsalo PROCTOR,Gm Unit Num: [id number] Loc: MS1 [id number] Specimen: [id number] Received: 06/22/161336 Spec Ty pe: HYSTERECT TISSUES TISSUES: COMMENT Please make reference to previous specimen ([id number]) endometrial biopsy with diagnosis of consistent with atrophic endometrium and ([id number]) e ndometrium andpolyp, excision with diagnosis of [...] measures 1.2 x 0.7 x 0.6 cm. Material Requirements Worker sections are submitted inten cassettes as follows: [...] tube and ovary. / Sridevi 06/22/16 TC:1 CPT:17279 HEADER OPERATION: Lap robotic hysterectomy, BSO PRE-OP [...] Signed Sivakumar Mallory 06/23/16 <signature on file> 50-Ahv-35124:31 Bedside Glucose Comments: [facility] LaboratoryPoint of Pjln[address] [place] [address] BEDSIDE GLU 89 mg/dL (Normal) Range: 70-110 Comments: Physician Notified VBRBMANAGEMENT OF PATIENT CARE PER NURSING PROTOCOL :31 CBC-Complete Blood Cnt No Diff Comments: [facility] [address]pviduhiib[address] [place], [place], [address] MPV 10.1 fL (Normal) Range: 6.2-12.0 PLT [...] Range: 4.4-11.0 :31 Comprehensive Metabolic Profil Comments: [facility] [address]yuewyiayt[address] [place], [place], [address] GAP 8 (Normal) Range: 5-15 CO2 24.0 [...] 7-18 GLU 87 mg/dL (Normal) Range: 70-110 40-Hfu-183587:31 Hemoglobin A1c Comments: [facility] [address]xbyvretj[address] [place], [place], [address] HGB A1C 5.6 % (Normal) Range: 4.2-6.3 :31 Partial Thromboplast Time Comments: [facility] Rtaujakyag[address] [place], [place], [address] PTT 27.7 s (Normal) Range: 24.1-36.2 54-Epa-135532:31 Prothrombin Time w/INR Comments: [facility] [address]kpunuhy[address] [place], [place], [address] INR 1.1 (Normal) PROTIME 13.4 s (Normal) Range: 11.7-14.9 12-Qzl-222238:31 Thyroid Stim Hormone (TSH) Comments: [facility] Qmoecuonkw[address] [place], [place], [address] TSH 2.46 {uIU/mL} (Normal) Range: 0.358-3.74 97-Hkz-431143:31 Type AND Screen Comments: Surgery Date: 06/22/16Date of Last Transfusion (if within last 3 months) NHx of Preganancy in last 3 Months NoEver experience any problems with transfusion(s)? NHx of Transfusion in last 3 Months N Reason for Type AND Screen/Red Cells: SURGERYTime: 0600SURGICAL PROCEDURE: [facility] Blkvoxogjz[address] [place], [address] Antibody Screen NEGATIVE (Normal) BLOOD TYPE GEL A NEGATIVE (Normal) 42-Jku-406257:28 Comprehensive Metabolic Profil Comments: Order Date: 06/10/16Order Date: [facility] Naklccwtso[address] [place], [address] GAP 5 (Normal) Range: 5-15 CO2 [...] 7-18 GLU 79 mg/dL (Normal) Range: 70-110 82-Vss-161028:58 CBC W/Diff, Automated Comments: [facility] Bixwailhga[address] [place], [address] Absolute Lymph 2.98 {X10_3/ul} (Normal) [...] 4.2-5.4 WBC 8.7 K/mm3 (Normal) Range: 4.4-11.0 28-Zrj-641509:58 Comprehensive Metabolic Profil Comments: Is Patient Taking Vitamins or Folic Acid Supplements? [facility] [address]jkgwwdyrz[address] [place], [place], [address] GAP 8 (Normal) Range: 5-15 CO2 29.0 [...] 7-18 GLU 95 mg/dL (Normal) Range: 70-110 99-Zto-992476:58 Erythrocyte Sed Rate Comments: [facility] [address] [place], [address] SED RATE 25 mm/h (Normal) Range: 0-30 56-Lmq-282906:58 Folates, (Folic Acid) Comments: Is Patient Taking Vitamins or Folic Acid Supplements? [facility] Cd[address]qdvskj[address] [place], [place], [address] FOLATES 9.60 ng/mL (Normal) Range: 3.1-17.5 10-Fac-129690:58 Thyroid Stim Hormone (TSH) Comments: Is Patient Taking Vitamins or Folic Acid Supplements? [facility] [address]af[address] [place], [address] TSH 2.58 {uIU/mL} (Normal) Range: 0.358-3.74 36-Brw-222067:58 Vitamin B12 543 pg/mL (Normal) Comments: [facility] [address] [place], [address] Range: 211-911 37-Ghd-719469:07 Urinalysis, Office (06783) UA - LEUKOCYTE ESTERASE Trace (Normal) UA - NITRITE Negative (Normal) URINE UROBILINGN SHARIFA TIMED Normal mg/dL (Normal) UA - PROTEIN Negative mg/dL (Normal) UA - PH 6.5 (Normal) UA - BLOOD Hemolyzed Trace (Normal) UA - SPECIFIC GRAVITY 1.005 (Normal) UA - KETONES Negative mg/dL (Normal) UA - BILIRUBIN Negative (Normal) UA - GLUCOSE Negative (Normal) 99-Mji-853650:04 URINE VERÓNICA CULTURE-SHARIFA COL Comments: PATIENT NOT FASTINGPERFORMED BY: [facility] Odpbxp2934 [facility] [id number] Information: SRC:[facility] [id number] COUNT (63557) Antimicrobial MIHEAD (Normal) Comments: S = Susceptible; [...] (Abnormal) Urine Final report Culture,Comprehensive (Abnormal) EGD ([facility]) See Note (Normal) Comments: [facility] Ryifohcdyg[address] [place], [address] 9[address]62:04 Comments: Patient: ELIZABETH TORO : 1950 (65/F) Acct Num: [id number] Phys: Junior Pena Unit Num: [id number] Loc: LABSPEC Specimen: [id number] Received: 04/21/16 - 5705 Spec Type: EGD BIOPSY TISSUES TISSUES: COMMENT [...] in one cassette. / SJ:stormy 04/22/16 TC:3 CPT:71431 HEADER OPERATION: EGD with biopsy PRE-OP DIAGNOSIS: Dysphagia TISSUE SUBMITTED: Esophageal biopsy, R/O EE MICROSCOPIC DESCRIP TION Slides are reviewed. MICROSCOPIC DIAGNOSIS Esophageal biopsy: Fragments of squamous epithelium with mild chronic inflammation. See comment. SJ:stormy 04/23/16 Signed Sivakumar Mallory 04/23/16 <signature on file> CERVICAL See Note (Normal) Comments: [facility] [address]jfgf[address] [place], [address] 84614:15 Comments: Patient: ELIZABETH TORO : 1950 (65/F) Acct Num: [id number] Phys: Gonsalo PROCTOR,[facility] Unit Num: [id number] Loc: [facility] Specimen: [id number] Received: 04/13/161335 Spec Type: CER V TISSUES [...] one cassette. / AM: 04/13/16 TC:5 CPT: 02645 x 2 HEADER OPERATION: Hysteroscopy, diagnostic, D AND C PRE-OP DIAGNOSIS: Postmenopausal bleeding TISSUE SUBMITTED: A - Endocervical curettings, B - Endometrial curettings and polyp [facility] DESCRIPTION Slides are reviewed. MICROSCOPIC DIAGNOSIS A. Endocervix, curettings: Strips of benign superficial endocervix. Rare strips of benign superficial ectocervix. B. Endom etrium and polyp, excision: Benign endometrial polyp with simple cystic hyperplasia without atypia. Scant strips of benign superficial endometrium. AM:trena 04/14/16 Signed Ras Easley 04/14/16 <signature on file> :04 Bedside Glucose Comments: [facility] LaboratoryPoint of Ihbd[address] [place], [place] [address] BEDSIDE GLU 98 mg/dL (Normal) Range: 70-110 Comments: No Action RequiredMANAGEMENT OF PATIENT CARE PER NURSING PROTOCOL :08 CBC-Complete Blood Cnt No Diff Comments: [facility] Jnycvijamk[address] [place], [address] MPV 9.4 fL (Normal) Range: [...] Range: 4.4-11.0 :08 Comprehensive Metabolic Profil Comments: [facility] Vhwbptqxdu94[address] [place], [place], [address] GAP 8 (Normal) Range: 5-15 CO2 24.0 [...] Range: 70-110 :08 Partial Thromboplast Time Comments: [facility] Mtcwtltsiw4022 [facility] [place], [place], [address] PTT 29.8 s (Normal) Range: 24.1-36.2 :08 Prothrombin Time w/INR Comments: [facility] Citjxzwqcn6491 [facility] [place], [place], [address] INR 1.1 (Normal) PROTIME 13.6 s (Normal) Range: 11.7-14.9 :08 Type AND Screen Comments: Surgery Date: 04/13/16Date of Last Transfusion (if within last 3 months) NHx of Preganancy in last 3 Months NoEver experience any problems with transfusion(s)? NHx of Transfusion in last 3 Months N Reason for Type AND Screen/Red Cells: SURGERYTime: 1015SURGICAL PROCEDURE: [facility] Mpqawvcyxc6465 [place], [address] Antibody Screen NEGATIVE (Normal) BLOOD TYPE GEL A NEGATIVE (Normal) ENDOMETRIAL See Note (Normal) Comments: [facility] [address]ucpit[address] [place], [address] 6:00 BX/CURETTINGS Comments: Patient: ELIZABETH TORO : 1950 (65/F) Acct Num: [id number] Phys: Gonsalo PROCTOR,Gm Unit Num: [id number] Loc: LABSPEC Specimen: [id number] Received: 03/26/16 - 1599 Spec Type: ENDOM BX/C TISSUES TISSUES: COMMENT [...] in one cassette. / AM:stormy 03/27/16 TC:4 CPT:36611 HEADER OPERATION: Endometrial biopsy PRE-OP DIAGNOSIS: N95.0 TISSUE SUBMITTED: EMB MICROSCOPIC DESCRIPTION Slides are vicky boyer. MICROSCOPIC DIAGNOSIS Endometrial biopsy: Scant strips of benign endometrial epithelium, consistent with atrophic endometrium. Fragments of benign endocervical epithelium and mucous. SJ:stormy 03/31/16 Signed Sivakumar Mallory 03/31/16 <signature on file> 76-Dam-453233:00 PAP I-G w/ Reflex to HR Comments: CYTOLOGY INFORMATION:- CLINICAL INFORMATION: POSTMENOPAUSAL- DATE LMP/MENOPAUSE: MENOPAUSE- COLLECTION VIAL: Thin Prep Vial- BACK TENDER CLOTH PRINTING SOURCE: CERVICAL/ENDOCERVICAL- COLLECTION TECHNIQUE: BRUSH/ SPATULASpeci HPV men Comment: [id number] Comment: No. of containers..01 CYTYC Thin Prep VialLabCorp (refer to report for specific site)refer to report for address and phone number HPV RFLX Comment (Normal) Comments: The HPV DNA reflex criteria were not met with this specimenresult therefore, no HPV testing was performed.Performed at: [address] StreetZenon martínez [place] [id number] Director: Annamaria Menezes MD, Phone: [phone] PAPSMR Comment (Normal) Comments: The Pap smear [...] system. PERFORM Comment (Normal) Comments: Adeline Singleton, B2B Sales Consultant (ASCP) ADEQ Comment (Normal) Comments: Satisfactory for evaluation. DIAGN Comment (Normal) Comments: NEGATIVE FOR INTRAEPITHELIAL LESION AND MALIGNANCY. 61-Eyc-36986:20 Urinalysis, Complete Comments: How was Urine Obtained? STUDENT DEVELOPMENT ADVISOR TO SPECIFYHolzer Health System Tvugiqdjyo06[address] [place], [place], [address] MUCUS, URINE 0 SEEN {/hpf} (Normal) BACTERIA [...] (Normal) CLARITY Clear (Normal) COLOR Straw (Normal) 70-Cnl-752648:50 Basic Metabolic Profile (BMP) Comments: [facility] Ffymsjmtgr[address] [place], [address] GAP 7 (Normal) Range: 5-15 [...] <126 mg/dLsuggests IMPAIRED HOMEOSTASIS per A.D.A. criteria. 37-Wse-425152:50 CBC W/Diff, Automated Comments: [facility] [address]sqnmpyvc[address] [place], [address] Absolute Lymph 3.53 {X10_3/ul} (Normal) Range: 0.83-4.51 [...] K/mm3 (Normal) Range: 4.4-11.0 :02 Rapid Flu (56887 x 2) Influenza A Ag negative (Normal) 8-Ukg-549631:31 SJOGREN ANTIBOIDIES Comments: PATIENT NOT FASTINGPERFORMED BY: LabCoSt. Francis Medical CenterRtymdt4136 [facility] [id number] Information: [id number] (ANTI-SS-A/ANTI-SS-B) (74525) Sjogren's Anti-SS-B <0.2 {AI} (Normal) Range: 0.0-0.9 Sjogren's Anti-SS-A <0.2 {AI} (Normal) Range: 0.0-0.9 :28 Rapid Strep Test, Office (41369) Rapid Strep Test, Office Negative (Normal) 1-Eud-022733:37 Throat Culture (32592) Comments: PATIENT NOT FASTINGPERFORMED BY: LabCoSt. Francis Medical CenterSfzvjt2941 [facility] [id number] Information: SRC:THRT [id number] Result 1 BETAGB (Abnormal) Comments: Beta hemolytic [...] #1, #2, #3, or #4: 1[facility] Rtccvtfsin[address] [place], [place], [address] GAP 9 (Normal) Range: 5-15 CO2 23.0 [...] Range: 70-110 :45 CBC W/Diff, Automated Comments: [facility] [address]ieqqbjut[address] [place], [place], [address] Absolute Lymph 2.03 {X10_3/ul} (Normal) Range: 0.83-4.51 [...] Serial specimen #1, #2, #3, or #4: [address] [place] [address] Yukncvcons3710 [place], [address] TSH 1.50 {uIU/mL} (Normal) Range: 0.358-3.74 1-Rqu-671068:45 Troponin-I Comments: 'TROP' Serial specimen #1, #2, #3, or #4: [address] [place] [address] Tzfqjzvyfe0267 [place], [address] TROPONIN-I < 0.02 ng/mL (Normal) Comments: TROPONIN-I EXPECTED VALUES <0.05 NEGATIVE 0.06 - 0.59 AT RISK OF VT > OR = 0.60 SUGGEST VT :53 Pap IG (Image Comments: Source.............Cervical;EndocervicalNo. of containers..01 CYTYC Thin Prep VialPATIENT NOT FASTINGPERFORMED BY: =G [address] [id number] BY: WB L Guided) [facility] [id number] Note: PAPSMR (Normal) Comments: The Pap smear [...] of partially obscuring exudate are present.Z00.00Adeline Singleton B2B Sales Consultant (ASCP) :01 HgA1C , Office (46152) HgA1C , Office 5.9 % (Normal) Range: 4.6 - 7.1 :00 Blood Glucose , Office (12403) Blood Glucose , Office 126 (Normal) :53 Thin Prep Pap Comments: Source.............Cervical;EndocervicalNo. of containers..01 CYTYC Thin Prep VialPATIENT NOT FASTINGPERFORMED BY: =Rodríguez [facility] [address] [place] [address] [id number] BY: SARAY Jose (64395) [facility] [id number] Information: [id number] Age Gdln ACOG Testing AGE4 (Normal) Comments: <21 or >65 or no age provided :34 METABOLIC PANEL, Comments: PATIENT WAS FASTINGPERFORMED BY: EMIL [facility] Vhrazg6526 [facility] [id number] Information: [id number] COMPREHENSIVE (99164) ALT (SGPT) 18 [iU]/L (Normal) Range: 0-32 [...] Glucose, Serum 83 mg/dL (Normal) Range: 65-99 61-Nrv-20785:34 CALCIFIDIOL (27902) VIT D 25 Comments: PATIENT WAS FASTINGPERFORMED BY: [facility]6370 [facility] [id number] Vitamin D, 25-Hydroxy 59.6 ng/mL (Normal) Range: 30.0-100.0 Comments: Vitamin D deficiency has been defined by the [place] of[place]icine and an Endocrine Society practice guideline as alevel of serum 25-OH vitamin D less than 20 ng/mL (1,2).The Endocrine Society went on to further define vitamin Dinsufficiency as a level between 21 and 29 ng/mL (2).1. IOM ([place] of [employer]). 2010. Dietary reference intakes for calcium and D. [place]: The National Academies Press.2. Azael RUTH, Leslee LEMON, Hillary PHILLIPS, et al. Evaluation, treatment, and prevention of vitamin D deficiency: an Endocrine Society clinical practice guideline. JCEM. 2010; 96(7):1911-30. :37 HgA1C , Office (81152) HgA1C , Office 6.1 % (Normal) Range: 4.6 - 7.1 :37 Blood Glucose , Office (45971) Blood Glucose , Office 107 (Normal) :27 TSH (THYROID STIMULATING Comments: PATIENT WAS FASTINGPERFORMED BY: [facility] Zpgfbu2456 [address] RoadDublin [place] [id number] HORMONE) (72001) TSH 2.480 {uIU/mL} (Normal) Range: 0.450-4.500 : CALCIFEDIOL (08256) Comments: PATIENT WAS FASTINGPERFORMED BY: [facility] Hqnamt8223 [address] RoadDublin [place] [id number] Vitamin D, 25-Hydroxy 16.7 ng/mL (Abnormal) Range: 30.0-100.0 Comments: Vitamin D deficiency has been defined by the [place] of[place] and an Endocrine Society practice guideline as alevel of serum 25-OH vitamin D less than 20 ng/mL (1,2).The Endocrine Society went on to further define vitamin Dinsufficiency as a level between 21 and 29 ng/mL (2).1. IOM ([place] [employer]). 2010. Dietary reference intakes for calcium and D. [place]: The National Academies Press.2. Azael RUTH, Leslee LEMON, Hillary PHILLIPS, et al. Evaluation, treatment, and prevention of vitamin D deficiency: an Endocrine Society clinical practice guideline. JCEM. 2010; 96(7):1911-30. :27 LIPID PANEL (72891) Comments: PATIENT WAS FASTINGPERFORMED BY: [facility] Okhrjb2105 [address] RoadDublin [place] [id number] LDL/HDL Ratio 1.2 {ratio_units} (Normal) Range: 0.0-3.2 [...] Cholesterol, Total 138 mg/dL (Normal) Range: 100-199 39-Qzb-42265:27 METABOLIC PANEL, COMPREHENSIVE Comments: PATIENT WAS FASTINGPERFORMED BY: LabCoSt. Francis Medical CenterJgqcez4467 [facility] [id number] (73035) ALT (SGPT) 19 [iU]/L (Normal) Range: 0-32 [...] Glucose, Serum 121 mg/dL (Abnormal) Range: 65-99 04-Ovt-54427:27 CBC, PLATELETS & MANUAL Comments: PATIENT WAS FASTINGPERFORMED BY: SparkroomSt. Francis Medical CenterFaxgzb3197 [facility] [id number] Information: [id number], [id number] DIFF (92597) Immature Grans (Abs) 0.0 {x10E3/uL} (Normal) Range: [...] 3.77-5.28 WBC 7.0 {x10E3/uL} (Normal) Range: 3.4-10.8 51-Rom-810491:31 CREATININE CLEARANCE Comments: PATIENT NOT FASTINGPERFORMED BY: LabCoSt. Francis Medical CenterBffyrj3458 [facility] [id number] Information: [id number] START @9AM FINISH 01/28/15@9 AM (58524) Creatinine Clearance 53 mL/min (Abnormal) Range: 88-128 [...] Hour Urine Comments: PATIENT NOT FASTINGPERFORMED BY: [facility] [id number] (85123) Prot,24hr calculated 357.5 {mg/24_hr} (Abnormal) Range: 30.0-150.0 Protein,Total,Urine 13.0 mg/dL (Normal) Range: 0.0-15.0 :28 HgA1C , Office (88792) HgA1C , Office 5.9 % (Normal) Range: 4.6 - 7.1 :28 Blood Glucose , Office (36343) Blood Glucose , Office 136 (Normal) :53 TSH (79760) Comments: PATIENT WAS FASTINGPERFORMED BY: [facility] Ckbdoz4313 [facility] [id number] TSH 4.370 {uIU/mL} (Normal) Range: 0.450-4.500 :53 MICROALBUMIN: CREATININE RATIO Comments: PATIENT WAS FASTINGPERFORMED BY: [facility] [employer] [facility] [id number] (16271) AND (91053) Microalb/Creat Ratio 5.0 {mg/g_creat} (Normal) Range: 0.0-30.0 Microalbumin, Urine 4.5 ug/mL (Normal) Range: 0.0-17.0 Creatinine, Urine 90.5 mg/dL (Normal) Range: 15.0-278.0 :53 METABOLIC PANEL, COMPREHENSIVE Comments: PATIENT WAS FASTINGPERFORMED BY: EMIL Cartagenia70 [facility] [id number] (83914) ALT (SGPT) 20 [iU]/L (Normal) Range: 0-32 [...] mg/dL (Abnormal) Range: 65-99 :53 LIPID PANEL (22459) Comments: PATIENT WAS FASTINGPERFORMED BY: Visterra6370 [facility] [id number] LDL/HDL Ratio 1.4 {ratio_units} (Normal) Range: 0.0-3.2 [...] DIFF WBC Comments: PATIENT WAS FASTINGPERFORMED BY: LabCoSt. Francis Medical CenterVhyclz4873 [facility] [id number] Information: [id number] (66290) Immature Grans (Abs) 0.0 {x10E3/uL} (Normal) Range: [...] 7.8 {x10E3/uL} (Normal) Range: 3.4-10.8 :53 CALCIFIDIOL (61010) VIT D 25 Comments: PATIENT WAS FASTINGPERFORMED BY: LabCo Uvlpus2309 [facility] [id number] Vitamin D, 25-Hydroxy 22.5 ng/mL (Abnormal) Range: 30.0-100.0 Comments: Vitamin D deficiency has been defined by the [place] of[place] and an Endocrine Society practice guideline as alevel of serum 25-OH vitamin D less than 20 ng/mL (1,2).The Endocrine Society went on to further define vitamin Dinsufficiency as a level between 21 and 29 ng/mL (2).1. IOM ([place] [employer]). 2010. Dietary reference intakes for calcium and D. [place]: The National Academies Press.2. Azael MF, Leslee LEMON, Hillary PHILLIPS, et al. Evaluation, treatment, and prevention of vitamin D deficiency: an Endocrine Society clinical practice guideline. JCEM. 2010; 96(7):1911-30. :22 HgA1C , Office (65394) HgA1C , Office 6.0 % (Normal) Range: 4.6 - 7.1 :22 Blood Glucose , Office (40766) Blood Glucose , Office 132 (Normal) :27 Blood Glucose , Office (12233) Blood Glucose , Office 114 (Normal) :27 HgA1C , Office (95950) HgA1C , Office 5.9 % (Normal) Range: 4.6 - 7.1 :00 Basic Metabolic Panel (8) Comments: PATIENT NOT FASTINGPERFORMED BY: LabCoSt. Francis Medical CenterQcacrn9928 [facility] [id number] BY: Lab[address] [id number] Calcium, Serum 9.8 mg/dL (Normal) Range: 8.6-10.2 [...] 287 {mOsmol/kg} Comments: PATIENT NOT FASTINGPERFORMED BY: [facility] Uyvdvd6857 [facility] [id number] BY: [facility] [id number] 00 (Normal) Range: 280-301 : Osmolality, Urine 259 {mOsmol/kg} Comments: PATIENT NOT FASTINGPERFORMED BY: WageWorkslin6370 [facility] [id number] BY: [facility] [id number] 00 (Normal) Comments: 24 hr : 300 - 900 Random: 50 - 1400 After 12hr fluid restriction: >850 : Sodium, Urine 11 mmol/L (Normal) Comments: PATIENT NOT FASTINGPERFORMED BY: [facility] Rlahfx3003 [facility] [id number] BY: [facility] [id number] 00 7-Hxh-999338:06 Metabolic Panel, Basic Comments: PATIENT NOT FASTINGPERFORMED BY: [facility] Xdibjo8379 [facility] [id number] Information: [id number] (02588) Calcium, Serum 9.9 mg/dL (Normal) Range: 8.6-10.2 [...] Glucose, Serum 108 mg/dL (Abnormal) Range: 65-99 19-Jgv-775348:34 CBCD Comments: pt has apt with db [...] <0.05 NEGATIVE0.06 - 0.59 AT RISK OF VT> OR = 0.60 SUGGEST VT 62-Pnj-826550:34 TSH 2.32 {uIU/mL} (Normal) Comments: 'TROP' Serial specimen #1, #2, #3, or #4: 1 Range: 0.358-3.74 01-May-20140:00 Microscopic Examination Comments: PATIENT WAS FASTINGPERFORMED BY: [facility] Xfyfec9601 [address] RoadDublin [place] [id number] Bacteria Few (Normal) Mucus Threads Present (Normal) Epithelial Cells (non renal) 0-10 {/hpf} (Normal) Range: 0 - 10 RBC 0-2 {/hpf} (Normal) Range: 0 - 2 WBC 11-30 {/hpf} (Abnormal) Range: 0 - 5 83-Khg-088374:15 TSH (79202) Comments: PATIENT WAS FASTINGPERFORMED BY: [facility] Jxfrgg7740 [address] RoadDublin [place] [id number] TSH 3.310 {uIU/mL} (Normal) Range: 0.450-4.500 [id number]:15 CALCIFIDIOL (98916) VIT D 25 Comments: PATIENT WAS FASTINGPERFORMED BY: CB [facility] [id number]Dublin [place] [id number] Vitamin D, 25-Hydroxy 35.7 ng/mL (Normal) Range: 30.0-100.0 Comments: Vitamin D deficiency has been defined by the [place] [employer] and an Endocrine Society practice guideline as alevel of serum 25-OH vitamin D less than 20 ng/mL (1,2).The Endocrine Society went on to further define vitamin Dinsufficiency as a level between 21 and 29 ng/mL (2).1. IOM ([place] [employer]). 2010. Dietary reference intakes for calcium and D. [place]: The National Academies Press.2. Azael MF, Leslee NC, Hillary PHILLIPS, et al. Evaluation, treatment, and prevention of vitamin D deficiency: an Endocrine Society clinical practice guideline. JCEM. 2010; 96(7):1911-30. 58-Hwm-559856:15 URINALYSIS, W/ MICRO (40043) Comments: PATIENT WAS FASTINGPERFORMED BY: [facility] Jjeadi7677 [facility] [id number] Microscopic Examination See below: (Normal) Nitrite, Urine Positive (Abnormal) Bilirubin Negative (Normal) Urobilinogen,Semi-Qn 0.2 mg/dL (Normal) Range: 0.0-1.9 Ketones Negative (Normal) Occult Blood Negative (Normal) Glucose Negative (Normal) Protein Negative (Normal) Appearance Clear (Normal) WBC Esterase 2+ (Abnormal) pH 6.5 (Normal) Range: 5.0-7.5 Urine-Color Yellow (Normal) Specific [place] 1.015 (Normal) Range: 1.005-1.030 89-Tjo-050384:15 METABOLIC PANEL, COMPREHENSIVE Comments: PATIENT WAS FASTINGPERFORMED BY: [facility] Brwgse1685 [facility] [id number] (34294) ALT (SGPT) 19 [iU]/L (Normal) Range: 0-32 [...] Glucose, Serum 118 mg/dL (Abnormal) Range: 65-99 33-Evr-505856:15 LIPID PANEL (74423) Comments: PATIENT WAS FASTINGPERFORMED BY: [facility] CenterRsfqcf6759 [facility] [id number] LDL/HDL Ratio 1.7 {ratio_units} (Normal) Range: 0.0-3.2 LDL Cholesterol Calc 90 mg/dL (Normal) Range: 0-99 VLDL Cholesterol Hillary 33 mg/dL (Normal) Range: 5-40 HDL Cholesterol 53 mg/dL (Normal) Comments: According to ATP-III Guidelines, HDL-C >59 mg/dL is considered anegative risk factor for CHD. Triglycerides 166 mg/dL (Abnormal) Range: 0-149 Cholesterol, Total 176 mg/dL (Normal) Range: 100-199 59-Nce-223938:15 CBC WITH MANUAL DIFF Comments: PATIENT WAS FASTINGPERFORMED BY: [facility]roomSt. [facility] CenterVavqef3908 [facility] [id number] Information: [id number] (33645) Immature Grans (Abs) 0.0 {x10E3/uL} (Normal) Range: [...] 3.77-5.28 WBC 7.0 {x10E3/uL} (Normal) Range: 3.4-10.8 18-Bxj-119619:20 Blood Glucose , Office (65335) Blood Glucose , Office 102 (Normal) 16-Jfy-378895:20 HgA1C , Office (45897) HgA1C , Office 6.0 % (Normal) Range: 4.6 - 7.1 9-Pcz-662834:27 URINE VERÓNICA CULTURE-IDENTIFICATN Comments: PATIENT NOT FASTINGPERFORMED BY: [facility] Aonnou7398 [facility] [id number] Information: [id number] (41663) Result 1 NG36 (Normal) Comments: No growth in 36 - 48 hours. Urine Culture,Comprehensive Final report (Normal) 9-Yba-370916:03 URINALYSIS (16837) URINALYSIS neg for all (Normal) 63-Suo-15197:31 URINE VERÓNICA CULTURE-SHARIFA COL Comments: PATIENT NOT FASTINGPERFORMED BY: [facility] Kkatbh6986 [facility] [id number] Information: SRC:UR [id number] COUNT (89020) Antimicrobial MIHEAD (Normal) Comments: S = Susceptible; [...] Final report Culture,Comprehensive (Normal) :26 Urinalysis, Office (82453) UA - LEUKOCYTE ESTERASE Moderate (Normal) UA - NITRITE Negative (Normal) URINE UROBILINGN SHARIFA TIMED Normal mg/dL (Normal) UA - PROTEIN Negative mg/dL (Normal) UA - PH 5 (Abnormal) UA - BLOOD Hemolyzed Small (Normal) UA - SPECIFIC GRAVITY 1.025 (Normal) UA - KETONES Negative mg/dL (Normal) UA - BILIRUBIN Negative (Normal) UA - GLUCOSE Negative (Normal) :52 LIPID PANEL (31346) Comments: PATIENT WAS FASTINGPERFORMED BY: [facility]70 [facility] [id number] Information: [id number] LDL/HDL Ratio 2.1 {ratio_units} (Normal) Range: 0.0-3.2 LDL Cholesterol Calc 111 mg/dL (Abnormal) Range: 0-99 VLDL Cholesterol Hillary 31 mg/dL (Normal) Range: 5-40 HDL Cholesterol 53 mg/dL (Normal) Comments: According to ATP-III Guidelines, HDL-C >59 mg/dL is considered anegative risk factor for CHD. Triglycerides 156 mg/dL (Abnormal) Range: 0-149 Cholesterol, Total 195 mg/dL (Normal) Range: 100-199 :52 HEPATIC FUNCTION PANEL (89395) Comments: PATIENT WAS FASTINGPERFORMED BY: [facility]70 [facility] [id number] ALT (SGPT) 17 [iU]/L (Normal) Range: 0-32 AST (SGOT) 23 [iU]/L (Normal) Range: 0-40 Alkaline Phosphatase, S 57 [iU]/L (Normal) Range: 39-117 Bilirubin, Direct 0.08 mg/dL (Normal) Range: 0.00-0.40 Bilirubin, Total 0.3 mg/dL (Normal) Range: 0.0-1.2 Albumin, Serum 4.3 g/dL (Normal) Range: 3.6-4.8 Protein, Total, Serum 7.2 g/dL (Normal) Range: 6.0-8.5 :52 CALCIFEDIOL (69033) Comments: PATIENT WAS FASTINGPERFORMED BY: [facility] Xvajvj6078 [facility] [id number] Vitamin D, 25-Hydroxy 13.8 ng/mL (Abnormal) Range: 30.0-100.0 Comments: Vitamin D deficiency has been defined by the [place] [facility] and an Endocrine Society practice guideline as alevel of serum 25-OH vitamin D less than 20 ng/mL (1,2).The Endocrine Society went on to further define vitamin Dinsufficiency as a level between 21 and 29 ng/mL (2).1. IOM ([place] of Medicine). 2010. Dietary reference intakes for calcium and D. [place]: The National Academies Press.2. Azael MF, Leslee LEMON, Hillary PHILLIPS, et al. Evaluation, treatment, and prevention of vitamin D deficiency: an Endocrine Society clinical practice guideline. JCEM. 2010; 96(7):1911-30. 44-Vgf-215875:38 Blood Glucose , Office (27621) Blood Glucose , Office 114 (Normal) 15-Xfw-834980:38 HgA1C , Office (66089) HgA1C , Office 5.8 % (Normal) Range: 4.6 - 7.1 90-Khe-709939:23 Urinalysis, Office (33952) UA - BILIRUBIN Negative (Normal) UA - BLOOD Hemolyzed Trace (Normal) UA - GLUCOSE Negative (Normal) UA - KETONES Negative mg/dL (Normal) UA - LEUKOCYTE ESTERASE Small (Normal) UA - NITRITE Negative (Normal) UA - PH 5.0 (Normal) UA - PROTEIN Negative mg/dL (Normal) UA - SPECIFIC GRAVITY 1.025 (Normal) URINE UROBILINGN SHARIFA TIMED Normal mg/dL (Normal) 23-Kja-933211:50 Metabolic Panel, Basic Comments: PATIENT NOT FASTINGPERFORMED BY: [facility]roomSt. [facility] CenterQvzqee4064 [facility] [id number] Information: [id number] (30344) Calcium, Serum 9.9 mg/dL (Normal) Range: 8.6-10.2 [...] Glucose, Serum 84 mg/dL (Normal) Range: 65-99 01-Uou-075894:39 BRAIN WITHOUT CONTRAST Radiology Report See Note [...] Sweeney M.D.July 12, 2013 at 4:19:02 PM [phone] Signed PV/PV If you are the referring physician and would like to consult with theradiologist who provided this interpretation, please contact Petrona molina M.D. at [phone]. If this radiologist is unavailable, youwillbe directed to another radiologist to assist. If you are a patient with a question regarding this report, pleasecontactyour referring physician directly. Professional Interpretation Provided By: [email or web address], Phone , These documents contain legally protected [...] 07/12/13 1619 by Annie Meek MDaTranscribed on 07/12/13 162 by ITS IMPORTSign by Petrona Meek MD on 07/12/13 1622 Sign by: Petrona Meek MD 1-Hqm-020762:39 CRE GFRAA 45 mL/min (Abnormal) GFR 37 mL/min (Abnormal) CREAT 1.5 mg/dL (Abnormal) Range: 0.6-1.0 :30 CRECLR Comments: START 07-05-13 @ 830AMEN07-06-13 @ 830AM CCREU 26.9 mg/dL (Normal) GFR [...] 3000 mL (Normal) UPCT 24.0 {HOURS} (Normal) 0-Poy-849568:39 Metabolic Panel, Basic Comments: recheck in one week; PATIENT NOT FASTINGPERFORMED BY: [place] [id number] [facility] [id number] Information: [id number] (23018) Calcium, Serum 9.7 mg/dL (Normal) Range: 8.6-10.2 [...] Glucose, Serum 109 mg/dL (Abnormal) Range: 65-99 31-Jkn-92505:50 Metabolic Panel, Basic Comments: PATIENT NOT FASTINGPERFORMED BY: [facility] [facility] [id number] Information: [id number] (25279) Calcium, Serum 9.5 mg/dL (Normal) Range: 8.6-10.2 [...] (Abnormal) Range: 65-99 :29 HgA1C , Office (20054) HgA1C , Office 5.7 % (Normal) Range: 4.6 - 7.1 :14 TSH (37806) Comments: PATIENT NOT FASTINGPERFORMED BY: [facility] [id number] TSH 2.850 {uIU/mL} (Normal) Range: 0.450-4.500 :14 CBC, Platelets & Auto Comments: PATIENT NOT FASTINGPERFORMED BY: [facility]CoSt. [facility] CenterRftbnd[address] [facility] [id number] Information: [id number] Diff (33650) Immature Grans (Abs) 0.0 {x10E3/uL} (Normal) Range: [...] 3.77-5.28 WBC 7.5 {x10E3/uL} (Normal) Range: 4.0-10.5 80-Oex-324903:14 Metabolic Panel, Comprehensive Comments: PATIENT NOT FASTINGPERFORMED BY: [facility]CoSt. [facility] Medical CenterGgemkb2705 [facility] [id number] (52510) ALT (SGPT) 19 [iU]/L (Normal) Range: 0-32 [...] Glucose, Serum 105 mg/dL (Abnormal) Range: 65-99 37-Wln-823514:06 URINE VERÓNICA CULTURE-SHARIFA COL Comments: PATIENT NOT FASTINGPERFORMED BY: [facility] Hbsayk9715 [facility] [id number] Information: SRC:UR ADD [id number] COUNT (45877) Antimicrobial MIHEAD (Normal) Comments: S = Susceptible; [...] mL (Normal) Urine Final report Culture,Comprehensive (Normal) 27-Zfl-632796:09 Urinalysis, Office (35414) UA - BILIRUBIN Negative (Normal) UA - BLOOD Hemolyzed Moderate (Normal) UA - GLUCOSE Negative (Normal) UA - KETONES Negative mg/dL (Normal) UA - LEUKOCYTE ESTERASE Small (Normal) UA - NITRITE Negative (Normal) UA - PH 6.0 (Normal) UA - PROTEIN Negative mg/dL (Normal) UA - SPECIFIC GRAVITY 1.005 (Normal) URINE UROBILINGN SHARIFA TIMED 2 mg/dL (Normal) 8-Zjs-028860:04 Renal function Panel Comments: PATIENT NOT FASTINGPERFORMED BY: [facility] Nfudme7777 [facility] [id number] Information: [id number] (77987) Albumin, Serum 4.1 g/dL (Normal) Range: 3.6-4.8 [...] Glucose, Serum 110 mg/dL (Abnormal) Range: 65-99 28-Tql-446988:22 CALCIFEDIOL (52391) Comments: PATIENT NOT FASTINGPERFORMED BY: [facility] Noyqlu3080 [facility] [id number] Vitamin D, 25-Hydroxy 16.7 ng/mL (Abnormal) Range: 30.0-100.0 Comments: Vitamin D deficiency has been defined by the [place] of[place]icine and an Endocrine Society practice guideline as alevel of serum 25-OH vitamin D less than 20 ng/mL (1,2).The Endocrine Society went on to further define vitamin Dinsufficiency as a level between 21 and 29 ng/mL (2).1. IOM ([place] of Medicine). 2010. Dietary reference intakes for calcium and D. [place]: The National Academies Press.2. Azael MF, Leslee [place], Hillary PHILLIPS, et al. Evaluation, treatment, and prevention of vitamin D deficiency: an Endocrine Society clinical practice guideline. JCEM. 2010; 96(7):1911-30. :22 MAGNESIUM (98101) Comments: PATIENT NOT FASTINGPERFORMED BY: [facility] Clkxey8346 [facility] [id number] Magnesium, Serum 2.3 mg/dL (Normal) Range: 1.6-2.6 :22 T4, FREE (THYROXINE) (15018) Comments: PATIENT NOT FASTINGPERFORMED BY: [facility] Aqqnef4560 [facility] [id number] T4,Free(Direct) 1.50 ng/dL (Normal) Range: 0.82-1.77 75-Ply-497876:22 T3, FREE (TRIDOTHYRONINE) (95197) Comments: PATIENT NOT FASTINGPERFORMED BY: [facility] [facility] [id number] Triiodothyronine,Free,Serum 2.6 pg/mL (Normal) Range: 2.0-4.4 65-Sfu-294743:22 TSH (16577) Comments: PATIENT NOT FASTINGPERFORMED BY: [facility] [facility] [id number] TSH 1.920 {uIU/mL} (Normal) Range: 0.450-4.500 20-Iyr-882350:22 CBC, Platelets & Auto Comments: PATIENT NOT FASTINGPERFORMED BY: [facility]6[address] [facility] [id number] Information: [id number] Diff (22450) Immature Grans (Abs) 0.0 {x10E3/uL} (Normal) Range: [...] 3.77-5.28 WBC 8.5 {x10E3/uL} (Normal) Range: 4.0-10.5 :22 Metabolic Panel, Comprehensive Comments: PATIENT NOT FASTINGPERFORMED BY: LabCoSt. [facility] Medical CenterVzwzqf1719 [facility] [id number] (56575) ALT (SGPT) 21 [iU]/L (Normal) Range: 0-32 [...] Glucose, Serum 97 mg/dL (Normal) Range: 65-99 4-Rbe-502550:20 METABOLIC PANEL, COMPREHENSIVE Comments: PATIENT WAS FASTINGPERFORMED BY: [facility]6[address] [facility] [id number] (35174) ALT (SGPT) 19 [iU]/L (Normal) Range: 0-32 [...] Glucose, Serum 102 mg/dL (Abnormal) Range: 65-99 2-Adx-066161:20 CBC WITH MANUAL DIFF Comments: PATIENT WAS FASTINGPERFORMED BY: [facility]6[address] [facility] [id number] Information: [id number] (52729) Immature Grans (Abs) 0.0 {x10E3/uL} (Normal) Range: [...] 3.77-5.28 WBC 7.4 {x10E3/uL} (Normal) Range: 3.4-10.8 0-Wwk-373457:20 LIPID PANEL (59216) Comments: PATIENT WAS FASTINGPERFORMED BY: [facility]CoSt. [facility] Medical CenterFjsovk5107 [facility] [id number] LDL/HDL Ratio 2.0 {ratio_units} (Normal) Range: 0.0-3.2 LDL Cholesterol Calc 109 mg/dL (Abnormal) Range: 0-99 VLDL Cholesterol Hillary 35 mg/dL (Normal) Range: 5-40 HDL Cholesterol 54 mg/dL (Normal) Comments: According to ATP-III Guidelines, HDL-C >59 mg/dL is considered anegative risk factor for CHD. Triglycerides 175 mg/dL (Abnormal) Range: 0-149 Cholesterol, Total 198 mg/dL (Normal) Range: 100-199 5-Bka-164599:20 TSH (11362) Comments: PATIENT WAS FASTINGPERFORMED BY: [facility]CoSt. [facility] Medical CenterQxthyf4826 [facility] [id number] TSH 2.720 {uIU/mL} (Normal) Range: 0.450-4.500 93-Lff-773213:22 HgA1C , Office (21793) HgA1C , Office 6.0 % (Normal) Range: 4.6 - 7.1 69-Pmq-391768:22 Blood Glucose , Office (50266) Blood Glucose , Office 249 (Normal) Comments: has eaten in last 2h 85-Dvl-402653:20 CHEST, PA AND LATERAL Radiology Report See [...] Signed:Anibal Lan M.D.November 022012 at 8:14:34 AM [id number] Signed GP/GP If you are the referring physician and would like to consult with theradiologist who provided this interpretation, please contact Eliecer Bui M.D. at [phone]. If this radiologist is unavailable, youwill be directed to another radiologist to assist. If you are a patient with a question regarding this report, pleasecontactyour referring physician directly. Professional Interpretation Provided By: [email or web address], Phone , These documents contain legally protected [...] or destructionofthese documents. Dictated on 11/21/121716 by Chhaya ortiz MD,AguilarieleTranscribed on 11/22/12817 by ITS IMPORTSign by Edyta PROCTOR,Anibal on 11/22/12817 Sign by: Anibal Lan MD 80-Pwj-67431:19 VERÓNICA CULTURE-OTHER (14508) Comments: PATIENT NOT FASTINGPERFORMED BY: [employer] Nbcsln9695 [facility] [id number] Information: SRC:IVETTT [id number] Result 1 RRF (Normal) Comments: Routine respiratory duyen Upper Respiratory Culture Final report (Normal) 07-Vpd-784373:33 Rapid Strep Test, Office (13083) Rapid Strep Test, Office Negative (Normal) 6-Xgh-043789:50 Celiac Disease Comprehensive Comments: PERFORMED BY: [employer]6[address] [facility] [id number] Immunoglobulin A, Qn, 364 mg/dL (Normal) Range: [...] Potassium, Serum 4.0 mmol/L Comments: PERFORMED BY: LabCoSt. [facility] Medical CenterRgnhep0162 [facility] [id number] 4:50 (Normal) Range: 3.5-5.2 4-Ivu-595910:30 CBCMD ANC 3.7 3/uL (Normal) Range: 2.0-7.7 [...] 4.2-5.4 WBC 7.0 {k/mm3} (Normal) Range: 4.4-11.0 :30 CMP GAP 11 (Normal) Range: 5-15 CO2 [...] 7-18 GLU 93 mg/dL (Normal) Range: 70-110 1-Qzt-815554:30 LIPID LDL 108 mg/dL (Normal) Range: 0-130 [...] Very High > or = 500 mg/dL 8-Ovy-998266:30 MIACRE MIALB 5.8 mg/L (Normal) tMICROCREAT 9.5 {mg/g_CRE} (Normal) CREU 60.7 mg/dL (Normal) 1-Oxa-707815:30 TSH 0.75 {uIU/mL} (Normal) Range: 0.358-3.74 :54 HgA1C , Office (06257) HgA1C , Office 5.5 % (Normal) Range: 4.6 - 7.1 :54 Blood Glucose , Office (65103) Blood Glucose , Office 116 (Normal) 86-Eux-198304:26 URINE VERÓNICA CULTURE-SHARIFA COL Comments: PATIENT NOT FASTINGPERFORMED BY: [facility] Nnpphh9174 [facility]outC[facility] Healthreinal[facility] [place] [id number] Information: SRC:UR [id number] COUNT (91058) Result 1 MUG (Normal) Comments: Mixed urogenital flora50,000-100,000 colony forming units per mL Urine Final report (Normal) Culture,Comprehensive 21-Vee-297805:46 Urinalysis, Office (78536) UA - BILIRUBIN Small (Normal) UA - BLOOD Hemolyzed Small (Normal) UA - GLUCOSE Negative (Normal) UA - KETONES Small mg/dL (Normal) UA - LEUKOCYTE ESTERASE Moderate (Normal) UA - NITRITE Negative (Normal) UA - PH 6.0 (Normal) UA - PROTEIN Trace mg/dL (Normal) UA - SPECIFIC GRAVITY 1.025 (Normal) URINE UROBILINGN SHARIFA TIMED Normal mg/dL (Normal) 34-Zfx-631070:55 CHEST, PA AND LATERAL Radiology Report See [...] radiologist regarding this report, please call our [id number] line @ Dictated on 1518 by Edyta PROCTOR,Isiahranscribed on 11/23/111610 by ITS IMPORTSign by Anibal Lan MD on 11/23/11 161 Sign by: Edyta PROCTOR,Anibal :51 Urinalysis, Office (65285) UA - BILIRUBIN Negative (Normal) UA - BLOOD Hemolyzed Small (Normal) UA - GLUCOSE Negative (Normal) UA - KETONES Negative mg/dL (Normal) UA - LEUKOCYTE ESTERASE Large (Normal) UA - NITRITE Negative (Normal) UA - PH 7.0 (Normal) UA - PROTEIN Negative mg/dL (Normal) UA - SPECIFIC GRAVITY 1.020 (Normal) URINE UROBILINGN SHARIFA TIMED 2 mg/dL (Normal) :51 HgA1C , Office (02955) HgA1C , Office 6.2 % (Normal) Range: 4.6 - 7.1 :50 Blood Glucose , Office (88910) Blood Glucose , Office 119 (Normal) :55 Urinalysis, Office (49634) UA - BILIRUBIN Negative (Normal) UA - [...] Ultrasound evaluation of the right upper quadrant [facility] with real-time ultrasonography and static [...] Muscle) 13 {Units} (Normal) Comments: PERFORMED BY: [employer] [place] [id number] :58 Antibody Range: 0-19 Comments: Negative 0 - 19 Weak positive 20 - 30 Moderate to strong positive >30 . Actin Antibodies are found in 52-85% of patients with autoimmune hepatitis or chronic active hepatitis and in 22% of patients with primary biliary cirrhosis. :58 Antinuclear Antibodies Direct Comments: PERFORMED BY: [facility]70 [facility] [id number] GAYATRI Direct Negative (Normal) :5 Ceruloplasmin 31.6 mg/dL (Normal) Comments: PERFORMED BY: [employer] [place] [id number] Range: 16.0-45.0 :5 Ferritin, Serum 440 ng/mL (Abnormal) Comments: PERFORMED BY: [employer] [place] [id number] 8 Range: 13-150 :58 Hepatitis Panel (4) Comments: PERFORMED BY: SparkroomSt. [facility] Medical CenterUrogag8272 [facility] [id number] Hep C Virus Ab 0.1 {s/co_ratio} (Normal) [...] (Normal) Hep A Ab, IgM Negative (Normal) :58 Iron and TIBC Comments: PERFORMED BY: [facility] [employer] [facility] [id number] Iron Saturation 37 % (Normal) Range: 15-55 Iron, Serum 96 ug/dL (Normal) Range: 35-155 UIBC 163 ug/dL (Normal) Range: 150-375 Iron Bind.Cap.(TIBC) 259 ug/dL (Normal) Range: 250-450 :58 Platelet Count on Citrated Comments: PERFORMED BY: [facility] Rcuemy5061 [facility] [id number] Bld Plt Count, Citrated Bld 216 {X10E3/uL} Range: 140-415 (Normal) 11-Jun-2011 Written Authorization WAR (Normal) Comments: PERFORMED BY: [facility] [facility] [facility] [id number] 9:58 Comments: Written Authorization Received.Authorization received from [place] [place] [id number] by Elina Swain :30 HgA1C , Office (20786) HgA1C , Office 6.7 % (Normal) Range: 4.6 - 7.1 :30 Blood Glucose , Office (03821) Blood Glucose , Office 159 (Normal) :15 METABOLIC PANEL, COMPREHENSIVE Comments: PATIENT WAS FASTINGPERFORMED BY: [facility] [facility] [id number] (23447) ALT (SGPT) 51 [iU]/L (Abnormal) Range: 0-40 [...] mg/dL (Abnormal) Range: 65-99 03-Jun-20119:15 LIPID PANEL (38010) Comments: PATIENT WAS FASTINGPERFORMED BY: LabCoSt. [facility] Medical CenterVcdcfe2235 [facility] [id number] LDL/HDL Ratio 1.8 {ratio_units} (Normal) Range: 0.0-3.2 [...] MANUAL DIFF Comments: PATIENT WAS FASTINGPERFORMED BY: LabCoSt. [facility] Medical CenterZtmhsg0679 [facility] [id number] Information: [id number] (81148) Immature Grans (Abs) 0.0 {x10E3/uL} (Normal) Range: [...] Hepatic Function Panel (7) Comments: PERFORMED BY: SparkroomSt. Francis Medical CenterLxxsqt6092 [facility] [id number] ALT (SGPT) 63 [iU]/L (Abnormal) Range: 0-40 Alkaline Phosphatase, S 63 [iU]/L (Normal) Range: 25-165 AST (SGOT) 53 [iU]/L (Abnormal) Range: 0-40 Bilirubin, Direct 0.13 mg/dL (Normal) Range: 0.00-0.40 Bilirubin, Total 0.4 mg/dL (Normal) Range: 0.0-1.2 Albumin, Serum 4.5 g/dL (Normal) Range: 3.6-4.8 Protein, Total, Serum 7.8 g/dL (Normal) Range: 6.0-8.5 :26 Hepatitis Panel (4) Comments: PERFORMED BY: SparkroomSt. [facility] Medical CenterRcmqdd3648 [facility] [id number] Hep C Virus Ab <0.1 {s/co_ratio} (Normal) [...] (Normal) Hep A Ab, IgM Negative (Normal) 1-Qxv-232454:04 LIVER D BILI 0.11 mg/dL (Normal) Range: 0.00-0.30 T BILI 0.30 mg/dL (Normal) Range: 0.00-1.00 ALK P 57 U/L (Normal) Range: 50-136 ALT 68 U/L (Normal) Range: 12-78 ALB 4.0 g/dL (Normal) Range: 3.4-5.0 AST 53 U/L (Abnormal) Range: 15-37 T PROT 8.0 g/dL (Normal) Range: 6.4-8.2 :59 HgA1C , Office (75485) HgA1C , Office 6.6 % (Normal) Range: 4.6 - 7.1 :59 Blood Glucose , Office (25023) Blood Glucose , Office 124 (Normal) :17 HgA1C , Office (35369) HgA1C , Office 6.4 % (Normal) Range: 4.6 - 7.1 :17 Blood Glucose , Office (95267) Blood Glucose , Office 141 (Normal) :17 Hemoglobin Glyclated (HGB A1C) Comments: PATIENT WAS FASTINGPERFORMED BY: [facility] [facility] [id number] (61410) Hemoglobin A1c 6.0 % (Abnormal) Range: 4.8-5.6 Comments: Increased risk for diabetes: 5.7 - 6.4 Diabetes: >6.4 Glycemic control for adults with diabetes: <7.0 :17 MICROALBUMIN: CREATININE RATIO Comments: PATIENT WAS FASTINGPERFORMED BY: [facility] [id number] (56877) AND (53203) Microalb/Creat Ratio 2.9 {mg/g_creat} (Normal) Range: 0.0-30.0 Creatinine, Urine 49.0 mg/dL (Normal) Range: 15.0-278.0 Microalbumin, Urine 1.4 ug/mL (Normal) Range: 0.0-17.0 :17 METABOLIC PANEL, COMPREHENSIVE Comments: PATIENT WAS FASTINGPERFORMED BY: [facility] [id number] (22052) Alkaline Phosphatase, S 61 [iU]/L (Normal) Range: [...] Glucose, Serum 116 mg/dL (Abnormal) Range: 65-99 79-Nph-899117:17 LIPID PANEL (46493) Comments: PATIENT WAS FASTINGPERFORMED BY: LabCoSt. [facility] Medical CenterStxjeh3519 [facility] [id number] LDL/HDL Ratio 2.2 {ratio_units} (Normal) Range: 0.0-3.2 HDL Cholesterol 50 mg/dL (Normal) Comments: According to ATP-III Guidelines, HDL-C >59 mg/dL is considered anegative risk factor for CHD. LDL Cholesterol Calc 109 mg/dL (Abnormal) Range: 0-99 VLDL Cholesterol Hillary 56 mg/dL (Abnormal) Range: 5-40 Cholesterol, Total 215 mg/dL (Abnormal) Range: 100-199 Triglycerides 282 mg/dL (Abnormal) Range: 0-149 15-Sgf-596984:17 CBC WITH MANUAL DIFF (90819) Comments: PATIENT WAS FASTINGPERFORMED BY: [facility] Xbmqup5709 [facility] [id number] Immature Grans (Abs) 0.0 {x10E3/uL} (Normal) Range: [...] (Normal) Range: 4.0-10.5 :57 Folic Acid Serum (36678) Comments: PATIENT NOT FASTINGPERFORMED BY: [employer] Jwnphd9032 [facility] [id number] Folate (Folic Acid), Serum 12.6 ng/mL (Normal) Comments: Indeterminate: 2.2 - 3.0Deficient: <2.2 :57 Vitamin B-12 (cyanocobalamin) Comments: PATIENT NOT FASTINGPERFORMED BY: [employer] Hwvwuz3123 [facility]24[facility] [id number] (37776) Vitamin B12 551 pg/mL (Normal) Range: 211-946 :57 CBC with manual diff Comments: PATIENT NOT FASTINGPERFORMED BY: [employer] Qfjzcc8684 [facility] [id number] Information: [id number] (24244) Baso (Absolute) 0.1 {x10E3/uL} (Normal) Range: 0.0-0.2 [...] 3.80-5.10 WBC 9.4 {x10E3/uL} (Normal) Range: 4.0-10.5 [id number]:57 Metabolic Panel, Comprehensive Comments: PATIENT NOT FASTINGPERFORMED BY: [facility] [id number] [id number] (01718) ALT (SGPT) 18 [iU]/L (Normal) Range: 0-40 [...] mg/dL (Abnormal) Range: 65-99 :57 DRUG ASSAY-LITHIUM (27486) Comments: PATIENT NOT FASTINGPERFORMED BY: [facility] [id number] [facility] [id number] Leando (Eskalith), Serum 1.0 mmol/L (Normal) Range: 0.6-1.4 Comments: Detection Limit = 0.1<0.1 indicates None Detected :57 T4, FREE (THYROXINE) (98945) Comments: PATIENT NOT FASTINGPERFORMED BY: [facility] [id number] [facility] [id number] T4,Free(Direct) 1.17 ng/dL (Normal) Range: 0.82-1.77 :57 T3, FREE (TRIDOTHYRONINE) (09766) Comments: PATIENT NOT FASTINGPERFORMED BY: [facility] [id number] [facility] [id number] Triiodothyronine,Free,Serum 2.1 pg/mL (Normal) Range: 2.0-4.4 :57 TSH (16390) Comments: PATIENT NOT FASTINGPERFORMED BY: [facility] [id number] [facility] [id number] TSH 4.080 {uIU/mL} (Normal) Range: 0.450-4.500 :43 HgA1C , Office (24570) HgA1C , Office 5.3 % (Normal) Range: 4.6 - 7.1 :43 Blood Glucose , Office (92444) Blood Glucose , Office 125 (Normal) :4 [...] 136-145 GLU 84 mg/dL (Normal) Range: 70-110 11-Vjy-505451:42 LI 0.60 mmol/L (Normal) Comments: Therapeutic Range: 0.60 - 1.20 54-Arw-417131:58 Thin prep Pap Comments: Source.............Cervical;EndocervicalNo. of containers..01 CYTYC Thin Prep VialPATIENT NOT FASTINGPERFORMED BY: [facility] [address] [id number] Information: [id number] ([id number]) Note: PAPSMR (Normal) Comments: The Pap smear [...] atrophy.V 72.31 ; Routine gynecological examinationRaxander Gonzalez B2B Sales Consultant (ASCP) 97-Ocf-377846:00 TSH (30990) Comments: PATIENT NOT FASTINGPERFORMED BY: [facility] [address] [facility] [id number] TSH 3.440 {uIU/mL} (Normal) Range: 0.450-4.500 51-Qnc-048721:00 CBC (Auto) (61775) Comments: PATIENT NOT FASTINGPERFORMED BY: [facility] [facility] [id number] Information: [id number] Platelets 258 {x10E3/uL} (Normal) Range: 140-415 RDW 13.6 % (Normal) Range: 11.7-15.0 Hematocrit 43.5 % (Normal) Range: 34.0-44.0 MCH 31.6 pg (Normal) Range: 27.0-34.0 MCHC 33.6 g/dL (Normal) Range: 32.0-36.0 MCV 94 fL (Normal) Range: 80-98 Hemoglobin 14.6 g/dL (Normal) Range: 11.5-15.0 RBC 4.61 {x10E6/uL} (Normal) Range: 3.80-5.10 WBC 8.6 {x10E3/uL} (Normal) Range: 4.0-10.5 57-Nvg-510982:00 Metabolic Panel, Basic Comments: PATIENT NOT FASTINGPERFORMED BY: [facility] [facility] [id number] ([id number]) Calcium, Serum 9.1 mg/dL (Normal) Range: 8.6-10.2 [...] Glucose, Serum 111 mg/dL (Abnormal) Range: 65-99 73-Gsk-164924:00 DRUG ASSAY-LITHIUM (88482) Comments: all these labs standing order prn; PATIENT NOT FASTINGPERFORMED BY: [facility] CenterPaftcp[address] [facility] [id number] Leando (Eskalith), Serum 0.9 mmol/L (Normal) Range: 0.6-1.4 Comments: Detection Limit = 0.1<0.1 indicates None Detected 24-Qyo-89084:16 METABOLIC PANEL, COMPREHENSIVE Comments: PATIENT NOT FASTINGPERFORMED BY: [facility]St[facility] CenterHjdjxk69[address] [facility] [id number] ([id number]) A/G Ratio 1.3 (Normal) Range: 1.1-2.5 Alkaline [...] Glucose, Serum 207 mg/dL (Abnormal) Range: 65-99 96-Cww-40872:16 CBC WITH MANUAL DIFF Comments: PATIENT NOT FASTINGPERFORMED BY: [facility] Frpswn[address] [facility] [id number] Information: [id number] (94428) Baso (Absolute) 0.1 {x10E3/uL} (Normal) Range: 0.0-0.2 [...] CREATININE RATIO Comments: PATIENT NOT FASTINGPERFORMED BY: [place] [id number] [facility] [id number] (64415) AND (27162) Microalb/Creat Ratio 6.2 {mg/g_creat} (Normal) Range: 0.0-30.0 Microalbumin, Urine 2.5 ug/mL (Normal) Range: 0.0-17.0 Creatinine, Urine 40.1 mg/dL (Normal) Range: 15.0-278.0 :38 HgA1C , Office (90285) HgA1C , Office 6.6 % (Normal) Range: 4.6 - 7.1 :38 Blood Glucose , Office (20331) Blood Glucose , Office 214 (Normal) 23-Yta-505619:05 URINE VERÓNICA CULTURE-IDENTIFICATN Comments: PATIENT NOT FASTINGPERFORMED BY: [facility] [facility] [id number] Information: [id number] (09716) Antimicrobial MIHEAD (Normal) Comments: S = Susceptible; [...] mL (Normal) Urine Final report (Normal) Culture,Comprehensive 56-Alq-876078:23 CHEST, PA AND LATERAL (MT) Radiology Report See Note (Normal) Comments: Exam Number: [id number] CLINICAL:58-year-old female with cough, pain and shortness [...] otherwise unremarkable. Reported By: SISI MART Dr. 66-Zqm-09304:23 B.pertussisB.parapertussis PCR Comments: PERFORMED BY: ELIESER YoceKvb8975 [facility] [id number] Bordetella parapertussis DNA Negative (Normal) Comments: .This test was developed and its performance characteristics determinedby [employer]. It has not been cleared or approved by theU.S. Food and Drug Administration. The FDA has determined that s uchclearance or approval is not necessary. This test is used for clinicalpurposes. It should not be regarded as investigational or research. Bordetella pertussis DNA Negative (Normal) :50 HgA1C , Office (09896) HgA1C , Office 5.5 % (Normal) Range: 4.6 - 7.1 :50 Blood Glucose , Office (85155) Blood Glucose , Office 90 (Normal) :33 HgA1C , Office (07610) HgA1C , Office 5.6 % (Normal) Range: 4.6 - 7.1 :41 HgA1C , Office (40773) HgA1C , Office 5.5 % (Normal) Range: 4.6 - 7.1 Comments: :41 Blood Glucose , Office (39730) Comments: 89 Blood Glucose , Office 89 [...] (Normal) Range: 0.34-4.82 :42 HgA1C , Office (85601) HgA1C , Office 5.4 % (Normal) Range: 4.6 - 7.1 :42 Blood Glucose , Office (71037) Blood Glucose , Office 103 (Normal) :20 [...] T PROT 8.0 g/dL (Normal) Range: 6.4-8.2 63-Swe-787553:20 LIPID CHOL 148 mg/dL (Normal) Comments: <200 [...] mg/dL VLDL 30 mg/dL (Normal) Range: 5-40 11-Hfw-249564:20 ROUTINE UA BILIRUBIN URINE SeeNote (Normal) Comments: [...] 0.2 EU/dl (Normal) Range: 0.2 - 1.0 43-Tba-64776:06 THYROID (HP) Radiology Report See Note (Normal) Comments: Exam Number: [id number] THYROID ULTRASOUND HISTORYGoiter. There is borderline increase [...] 03, 2007. Reported By: PETRONA REGALADO M.D. 55-Avh-67784:20 MAMM, UILAT DIAG DIGITAL & CAD Radiology Report See Note (Normal) Comments: Exam Number: [id number] UNILATERAL LEFT DIAGNOSTIC MAMMOGRAPHY CLINICAL STATEMENTLeft breast [...] The mammogramswere also examined with computer-aided detection software([employer] Reported By: REID KRUEGER M.D. : TSH 0.94 {uIU/mL} Range: 0.34-4.82 50 (Normal) :06 MAMM, BILAT SCRN DIGITAL & CAD Radiology Report See Note (Normal) Comments: Exam Number: [id number] MAMMOGRAM, BILATERAL SCREENING DIGITAL AND CAD HISTORYRoutine [...] mammograms werealso examined with computer-aided detection software ([employer] Reported By: PETRONA REGALADO M.D. :05 THYROID (HP) Radiology Report See Note (Normal) Comments: Exam Number: [id number] THYROID ULTRASOUND HISTORYGoiter. High resolution real time [...] 6 months. Reported By: PETRONA REGALADO M.D. 34-Fux-714422:22 HgA1C , Office (33771) HgA1C , Office 5.9 % (Normal) Range: 4.6 - 7.1 29-Xup-050887:22 Blood Glucose , Office (27850) Blood Glucose , Office 88 (Normal) Plan [...] II, controlled Stress incontinence, female : Reviewed Disc Ruler Operator Letter Indication: Stress incontinence, female Diabetes mellitus [...] acute Planned Observations VITAMIN B12 AND FOLATES (23011)Indication: Neuropathic pain On: :08 Request Blood Glucose , Office (71322)Indication: Diabetes mellitus type II, controlled On: :04 Request LIPID PANEL (43688)Indication: Neuropathic pain On: 35-Snc-46764:54 Request Blood Glucose , Office (63872)Indication: Diabetes mellitus type II, controlled On: 02-Nov-20178:55 Request D-Dimer (05904)Indication: Shortness of breath On: 60-Cdt-716513:19 Request Metabolic Panel, Comprehensive (67182)Indication: Diabetes mellitus type II, controlled On: 14-Gli-980569:19 Request Comments: Nov 2017 LIPID PANEL (73318)Indication: Diabetes mellitus type II, controlled On: 52-Wog-766326:19 Request Comments: Nov 2017 URINALYSIS (87275)Indication: Diabetes mellitus type II, controlled On: :19 Request Comments: Nov 2017 TSH (73237)Indication: Diabetes mellitus type II, controlled On: 67-Lgc-591662:18 Request Comments: Nov 2017 CBC, Platelets & Auto Diff (02721)Indication: Diabetes mellitus type II, controlled On: 82-Ljd-610816:18 Request Comments: Nov 2017 MICROALBUMIN: CREATININE RATIO (54381) AND (58881)Indication: Diabetes mellitus type II, controlled On: 96-Gyw-538261:18 Request Comments: Nov 2017 HgA1C , Office (53569)Indication: Diabetes mellitus type II, controlled On: 86-Ubu-125296:44 Request Anaerobic & Aerobic Culture (78042)Indication: Mouth pain On: 9-Miq-792181:11 Request Metabolic Panel, Comprehensive (44068)Indication: Chronic kidney disease (CKD), stage I On: 10-Ksq-233082:50 Request Comments: 2 weeks Metabolic Panel, Comprehensive (27793)Indication: Diabetes mellitus type II, controlled On: 53-Ehn-590978:56 Request Comments: today URINALYSIS (78638)Indication: Chronic kidney disease (CKD), stage I On: 66-Eop-921423:52 Request Comments: Jul 2017 MICROALBUMIN: CREATININE RATIO (31992) AND (41904)Indication: Chronic kidney disease (CKD), stage I On: 73-Hnk-364854:52 Request Comments: jul 2017 Lipid Panel (80657)Indication: Hypertension (Renamed from BP (high blood pressure)) On: 45-Ese-846774:52 Request Comments: Jul 2017 TSH (90913)Indication: Leg weakness On: 00-Rze-113727:52 Request Comments: Jul 2017 CBC, Platelets & Auto Diff (65374)Indication: Leg weakness On: 37-Akh-174031:52 Request Comments: jul 2017 METABOLIC PANEL, COMPREHENSIVE (80021)Indication: Weakness On: 62-Riz-910431:55 Request METABOLIC PANEL, COMPREHENSIVE (62847)Indication: Hypokalemia On: 36-Ksy-29741:43 Request Comments: STAT SED RATE ERYTHROCYTE (55958)Indication: Weakness On: 89-Rqz-794102:29 Request TSH (THYROID STIMULATING HORMONE) (20945)Indication: Unspecified abnormal involuntary movements On: 39-Klp-807972:17 Request METABOLIC PANEL, COMPREHENSIVE (89342)Indication: Unspecified abnormal involuntary movements On: 01-Pwl-253533:17 Request CBC, PLATELETS & AUT DIFF (62536)Indication: Unspecified abnormal involuntary movements On: 95-Nrf-729278:17 Request URINE VERÓNICA CULTURE-IDENTIFICATN (19941)Indication: Weakness On: 05-Daa-237830:07 Request Blood Glucose , Office (02749)Indication: Unspecified abnormal involuntary movements On: 09-Awb-15913:59 Request VITAMIN B12 AND FOLATES (29657)Indication: Unspecified abnormal involuntary movements On: :57 Request SPEP (83727)Indication: Elevated serum creatinine On: 95-Zqv-794685:31 Request CALCIFIDIOL (12892) VIT D 25Indication: Vitamin D deficiency (Renamed from Avitaminosis D) On: : Request TSH (71300)Indication: Hypothyroidism On: : Request MICROALBUMIN: CREATININE RATIO (26476) AND (47606)Indication: Diabetes mellitus type II, controlled On: : Request METABOLIC PANEL, COMPREHENSIVE (64251)Indication: Diabetes mellitus type II, controlled On: : Request LIPID PANEL (94422)Indication: Diabetes mellitus type II, controlled On: : Request CBC with auto diff (25972)Indication: Diabetes mellitus type II, controlled On: : Request CALCIFIDIOL (70231) VIT D 25Indication: Vitamin D deficiency (Renamed from Avitaminosis D) On: 97-Upm-967730:15 Request Comments: in three months (approximately) METABOLIC PANEL, COMPREHENSIVE (21340)Indication: Diabetes mellitus type II, controlled On: 21-Hgp-594778:15 Request Comments: in three months (approximately) SODIUM URINE (11322)Indication: Hyponatremia On: 8-Wus-951266:51 Request OSMOLALITY URINE (46336)Indication: Hyponatremia On: 9-Wsb-622059:50 Request OSMOLALITY BLOOD (23296)Indication: Hyponatremia On: 9-Mbu-687058:50 Request ASSAY, TROPONIN, QUANTITATIVE (aka Troponin I) (72453)Indication: Chest pain On: 85-Rfk-207773:40 Request Comments: stat D-Dimer (03135)Indication: Chest pain On: 22-Dyk-954286:40 Request Comments: stat TSH (03510)Indication: Chest pain On: :40 Request CBC WITH MANUAL DIFF (26535)Indication: Chest pain On: :40 Request METABOLIC PANEL, COMPREHENSIVE (66723)Indication: Chest pain On: 68-Bzp-149826:40 Request URINE VERÓNICA CULTURE (SHARIFA COL COUNT) (90370)Indication: Dysuria (Renamed from Difficult or painful urination) On: 69-Skd-890423:24 Request Metabolic Panel, Comprehensive (16740)Indication: Hypertension (Renamed from BP (high blood pressure)) On: 65-Epf-152284:56 Request Metabolic Panel, Basic (05536)Indication: Elevated LFTs On: 15-Yza-265145:16 Request 24 hour urine for Protein (55479)Indication: Elevated serum creatinine On: 76-Jyc-086386:40 Request Comments: recheck in one week CREATININE CLEARANCE (34812)Indication: Elevated serum creatinine On: 60-Nks-961443:39 Request Comments: recheck in one week Blood Glucose , Office (70411)Indication: Diabetes mellitus type II, controlled On: 31-Tmm-69105:29 Request METABOLIC PANEL, COMPREHENSIVE (14760)Indication: Hypokalemia (Renamed from Decreased potassium in the blood) On: 88-Mxi-565075:52 Request MICROALBUMIN: CREATININE RATIO (34212) AND (92008)Indication: Diabetes mellitus type II, controlled On: 25-Shg-589180:14 Request FLURESCNT ANTIB SCRN EA (92664) celiac profileIndication: Irritable bowel syndrome (Renamed from Functional bowel disease) On: 2-Hqj-619314:58 Request IMMUNOASSAY, ANALYTE (NON-INFECT) (96026) celiac profileIndication: Irritable bowel syndrome (Renamed from Functional bowel disease) On: 6-Ztg-982714:58 Request IGA/IGD/IGG/IGM-EACH (17127) celiac profileIndication: Irritable bowel syndrome (Renamed from Functional bowel disease) On: 9-Unr-916304:58 Request Potassium Serum (74017)Indication: Hypokalemia (Renamed from Decreased potassium in the blood) On: 4-Vqg-513327:58 Request Celiac Disease Comphrehensive Profile (91181)Indication: Irritable bowel syndrome (Renamed from Functional bowel disease) On: 04-Nov-20129:56 Request METABOLIC PANEL, COMPREHENSIVE (64921)Indication: Diabetes mellitus type II, controlled On: 48-Oyc-079096:32 Request LIPID PANEL (26671)Indication: Diabetes mellitus type II, controlled On: 13-Uiq-722953:32 Request CBC WITH MANUAL DIFF (88101)Indication: Diabetes mellitus type II, controlled On: 54-Xuj-660031:32 Request MICROALBUMIN: CREATININE RATIO (28736) AND (80617)Indication: Diabetes mellitus type II, controlled On: :32 Request TSH (17538)Indication: Hypothyroidism On: : Request TSH (21993)Indication: Hypothyroidism On: : Request MICROALBUMIN: CREATININE RATIO (29973) AND (09956)Indication: Diabetes mellitus type II, controlled On: : Request METABOLIC PANEL, COMPREHENSIVE (59452)Indication: Diabetes mellitus type II, controlled On: : Request LIPID PANEL (18318)Indication: Diabetes mellitus type II, controlled On: : Request CBC WITH MANUAL DIFF (83266)Indication: Diabetes mellitus type II, controlled On: : Request URINE VERÓNICA CULTURE-SHARIFA COL COUNT (35943)Indication: Dysuria (Renamed from Difficult or painful urination) On: 41-Vbu-709046:15 Request URINE VERÓNICA CULTURE-SHARIFA COL COUNT (31302)Indication: Dysuria (Renamed from Difficult or painful urination) On: 29-Oaj-710441:55 Request Ferritin (16528)Indication: Elevated LFTs On: 31-Pmt-189138:50 Request Comments: repeat now per Dr. Cabral with iron level Iron Binding Capacity (TIBC) (68007)Indication: Elevated LFTs On: 99-Rgp-225198:50 Request Iron (66513)Indication: Elevated LFTs On: 10-Wti-266978:49 Request CBC (Auto) (66005)Indication: Thrombocytopenia, unspecified On: : Request Comments: nonclumping tube HEPATITIS PANEL (45118)Indication: Elevated LFTs On: : Request FERRITIN (81553)Indication: Elevated LFTs On: :00 Request CERULOPLASMIN (58796)Indication: Elevated LFTs On: :00 Request ASM (ANTI SMOOTH MUSCLE ANTIBODY) (68743)Indication: Elevated LFTs On: :00 Request GAYATRI (ANTINUCLEAR ANTIBODY) (14289)Indication: Elevated LFTs On: 32-Zlt-131625:00 Request HEPATITIS PANEL (99478)Indication: Elevated LFTs On: 54-Nae-30022:01 Request TSH (38658)Indication: Hypothyroidism On: 19-Fxb-752406:16 Request LIPID PANEL (28765)Indication: Diabetes mellitus type II, controlled On: 35-Eow-558490:15 Request DRUG ASSAY-LITHIUM (30420)Indication: Bipolar affective disorder, mixed On: 97-Urp-404404:14 Request Metabolic Panel, Basic (31725)Indication: Bipolar affective disorder, mixed On: 89-Iur-320308:13 Request Metabolic Panel, Basic (73446)Indication: Bipolar affective disorder, mixed On: 57-Rpd-805174:22 Request DRUG ASSAY-LITHIUM (69521)Indication: Bipolar affective disorder, mixed On: :22 Request Comments: 2 months Urinalysis, Office (48660)Indication: Urinary frequency On: 18-Wbb-632286:27 Request Comments: done pms HEPATIC FUNCTION PANEL (21675)Indication: Other and unspecified hyperlipidemia On: 4-Too-053803:45 Request Lipid Panel (12104)Indication: Other and unspecified hyperlipidemia On: 0-Kab-783407:45 Request Lipid Panel (18219)Indication: Other and unspecified hyperlipidemia On: 58-Tsw-541955:17 Request CBC, Platelets & Auto Diff (24327)Indication: Other and unspecified hyperlipidemia On: 24-Qyf-381476:17 Request Metabolic Panel, Comprehensive (25035)Indication: Other and unspecified hyperlipidemia On: 39-Qmh-038484:17 Request TSH (86666)Indication: Hypothyroidism On: 14-Mdu-000400:15 Request Metabolic Panel, Basic (53152)Indication: Other and unspecified hyperlipidemia On: :55 Request Lipid Panel (54080)Indication: Other and unspecified hyperlipidemia On: :55 Request Comments: in three months (approximately) CBC (Auto) (84045)Indication: Intestinal disaccharidase deficiencies and disaccharide malabsorption On: :56 Request Metabolic Panel, Comprehensive (83203)Indication: Intestinal disaccharidase deficiencies and disaccharide malabsorption On: :56 Request Lipid Panel (79933)Indication: Intestinal disaccharidase deficiencies and disaccharide malabsorption On: :56 Request Comments: in three months (approximately) MICROALBUMIN 24 HOUR OR RANDOM On: 50-Ltn-878759:04 Request (97427) CREATININE CLEARANCE (47581) On: 47-Mxm-228496:03 Request CBC (Auto) (52145)Indication: Unspecified disorder of kidney and ureter On: 65-Jql-77726:53 Request Lipid Panel (51740)Indication: Unspecified disorder of kidney and ureter On: :53 Request Metabolic Panel, Comprehensive (51262)Indication: Unspecified disorder of kidney and ureter On: :53 Request TSH (51781)Indication: Hypothyroidism On: :53 Request TSH (89798)Indication: Hypothyroidism On: 85-Klf-004854:18 Request URINALYSIS (95284)Indication: Intestinal disaccharidase deficiencies and disaccharide malabsorption On: 51-Cpr-763632:43 Request CBC (Auto) (00296)Indication: Intestinal disaccharidase deficiencies and disaccharide malabsorption On: 56-Nkr-350950:43 Request Lipid Panel (28810)Indication: Intestinal disaccharidase deficiencies and disaccharide malabsorption On: 99-Gta-797026:43 Request Metabolic Panel, Comprehensive (89047)Indication: Intestinal disaccharidase deficiencies and disaccharide malabsorption On: 79-Som-032158:43 Request Planned Procedures COMPUTED TOMOGRAPHY ANGIOGRAPHY OF On: 01-Aug-2018 Intent CHEST FOR PULMONARY EMBOLISM Comments: stat for PE (91236)By: Eli Bowman CNP, CNP, Mary E Echo CompleteBy: Eli Bowman CNP On: 29-Jul-2018 Intent Eli Bowman CNP Spirometry (01175)By: Colby WATTERS, On: 29-Jul-2018 Intent Eli Mcelroy CNP Holter Monitor 24 hrsBy: Colby WATTERS, On: 29-Jul-2018 Intent Eli Mcelroy CNP CHEST XRAY, PA & LATERAL (41311)By: On: 29-Jul-2018 Intent Eli Bowman CNP, CNP, Mary E ELECTROCARDIOGRAM, COMPLETE (ECG) On: 29-Jul-2018 Intent (54751)By: Eli Bowman CNP Comments: sinus rhythm Eli WATTERS Aerosol Treatment (30795)By: Colby On: 29-Jul-2018 Intent Eli WATTERS CNP, Mary E Flu Vaccine (Quadrivalent) 82582Ah: On: 22-Jul-2018 Intent Tejal Ceron Comments: Lot #[id number]-L dltd, IMDose prefilled syringegiven by: Rosalie Ceron MA Toradol Injection, 30 mg (J1885)By: On: 09-May-2018 Intent Nunu Root Comments: lot [id number] 12/2029mgIMleft gmas, UTILITY LOCATOR SCREENING DIGITAL TOMOSYNTHESIS OF On: 18-Apr-2018 Intent BREAST (09150)By: Colby WATTERS Eli Bowman JANENEEli DEXA SCAN AXIAL SKELETON (54650)By: On: 18-Apr-2018 Intent Colby WATTERS Eli Mcelroy CNP Toradol Injection, 30 mg (J1885)By: On: 22-Mar-2018 Intent Nunu Roto Comments: toradol 30mg injection lot:[id number]:10/2019R GMpt tolerated wellMSMITH,UTILITY LOCATOR COMPLETE ELECTROMYOGRAPHY (EMG) WITH On: 22-Mar-2018 Intent NERVE CONDUCTION STUDIES OF EACH Comments: Bilateral lower legs EXTREMITY (33500)By: Nunu Root EMGBy: Colby WATTERS Eli Lubin Lisajanna JANENE, On: 03-Jan-2018 Intent Eli Lubin Comments: both legs Nerve ConductionBy: Colby WATTERS Eli On: 03-Jan-2018 Intent Amee Gonzalezmitchsilvano WATTERS Eli Lubin Comments: both legs Toradol Injection, 30 mg (J1885)By: On: 23-Dec-2017 Intent Mayda Dobbins DO Comments: toradol 30mg injectionlot: [id number]: 06/2018L GMpt tolerated wellAD UTILITY LOCATOR Spirometry (52615)By: Dk On: 16-Nov-2017 Intent Nunu Comments: Normal spirometry Aerosol Treatment (62736)By: Shilpi On: 30-Aug-2017 Mayda Bailey DO Comments: less noise with forced exp Solu- Medrol Injection, 125mg On: 30-Aug-2017 Intent (J2930)By: Mayda Dobbins DO Comments: solumedrol 125mg injectionlot: [id number]: 12/2019R GMpt tolerated wellAD UTILITY LOCATOR Radiology - Chest- PA and LatBy: On: 30-Aug-2017 Intent Mayda Dobbins DO Solu- Medrol Injection, 125mg On: 26-Aug-2017 Intent (J2930)By: Mayda Dobbins DO Comments: solumedrol 125mg injectionlot: [id number]: 12/2019L GMpt tolerated wellAD UTILITY LOCATOR Aerosol Treatment (03926)By: Shilpi On: 26-Aug-2017 Intent Mayda COLEMAN Comments: [place] Spirometry (84612)By: Shilpi COLEMAN, On: 26-Aug-2017 Intent Mayda Comments: mild obstruction Radiology - Shoulder - RightBy: On: 20-Jul-2017 Intent Edita Cabral MD Radiology - Lumbar SpineBy: Misha On: 20-Jul-2017 Intent Edita PROCTOR DRAIN/INJECT MAJOR JOINT OR BURSA On: 13-Apr-2017 Intent (13005)By: Eli Bowman CNP Comments: injevted left knee today Eli WATTERS PHYSICAL THERAPY (63597)By: Dk On: 08-Apr-2017 Intent Nunu Radiology - Knee - RightBy: Dk On: 08-Apr-2017 Intent Nunu Radiology - Knee - LeftBy: Dk, On: 08-Apr-2017 Intent Nunu ATTENDED SLEEP STUDY (78174)By: On: 18-Jan-2017 Intent Eli Bowman CNP, CNP, Mary E DEXA SCAN AXIAL SKELETON (65024)By: On: 24-Nov-2016 Intent Donnie Gonzales MD MAMMOGRAM, SCREENING, BOTH BREAST On: 24-Nov-2016 Intent (66140)By: Donnie Gonzales MD US KIDNEY COMPLETE (51013)By: Janet On: 16-Jul-2016 Intent Donnie PROCTOR EsophagramBy: Edita Cabral MD On: 06-Feb-2016 Intent Comments: 12mm tablet X-RAY EXAM OF ESOPHAGUS (87376) - On: 04-Feb-2016 Intent Barium Swallow with 12mm tabletBy: Donnie Gonzales MD Carotid DopplerBy: Edita Cabral MD On: 16-Sep-2015 Intent Oz TD VACCINE ADULT (74170)By: Misha On: 16-Sep-2015 Intent Edita PROCTOR TDAP VACCINE >7 IM (76479)By: On: 16-Sep-2015 Intent Edita Cabral MD Pap Smear, Medicare (Q0091)By: On: 16-Sep-2015 Intent Edtia Cabral MD MAMMOGRAM, SCREENING, BOTH BREAST On: 16-Sep-2015 Intent (71115)By: Edita Cabral MD Renal Artery DopplerBy: Misha PROCTOR, On: 04-Feb-2015 Intent Edita Clinton Ultrasound - RenalBy: Misha PROCTOR, On: 04-Feb-2015 Intent Edita Clinton DEXA SCAN AXIAL SKELETON (34799)By: On: 17-Jan-2015 Intent Edita Cabral MD Comments: postmenapausal MAMMOGRAM, SCREENING, BOTH BREAST On: 17-Jan-2015 Intent (96904)By: Edita Cabral MD Radiology - Shoulder - [...] with back pain- stat call results Spirometry (54907)By: Thee COLEMAN, On: 30-Apr-2014 Intent Erna Schaefer Comments: good effort and curve normal ELECTROCARDIOGRAM, COMPLETE (ECG) On: 30-Apr-2014 Intent (69166)By: Erna Kingston DO Eprescribed prescriptions (G8553)By: On: 12-Feb-2014 Intent Edita Cabral MD SPECIMEN HANDLING/TRANSPORT On: 15-Jan-2014 Intent (94011)By: Eli Bowman CNP, CNP, Mary E Eprescribed prescriptions (G8553)By: On: 11-Oct-2013 Intent Nunu Stephens LPN ADMINISTRATION OF INFLUENZA VIRUS On: 24-Jul-2013 Intent VACCINE (G0008)By: Edita Cabral MD FLU VAC, SPLIT, >3 YEARS, INTRAMUSC On: 24-Jul-2013 Intent (56756)By: Edita Cabral MD Echo CompleteBy: Edita Cabral MD On: 27-Jun-2013 Intent Carotid DopplerBy: Edita Cabral MD On: 27-Jun-2013 Intent M Eprescribed prescriptions (G8553)By: On: 27-Jun-2013 Intent Teressa Molina LPN MRI - BrainBy: Eli Bowman CNP On: 16-Jun-2013 Intent Eli Bowman CNP SPECIMEN HANDLING/TRANSPORT On: 16-May-2013 Intent (59992)By: Sue Ewing LPN Holter Monitor 24 hrsBy: Colby WATTERS, On: 28-Apr-2013 Intent Eli Mcelroy CNP ELECTROCARDIOGRAM, COMPLETE (ECG) On: 28-Apr-2013 Intent (54188)By: Eli Bowman CNP Comments: sinus bradycardia Eli WATTERS Bio Z (16789)By: Eli Bowman CNP On: 28-Apr-2013 Intent Eli Bowman CNP EKG (35694)By: Edita Cabral MD On: 28-Mar-2013 Intent Comments: see scanned document of test done to see results reviewed today with patient Eprescribed prescriptions (G8553)By: On: 28-Mar-2013 Intent Teressa Molina LPN L Eprescribed prescriptions (G8553)By: On: 08-Dec-2012 Intent Nunu Stephens LPN Spirometry (97908)By: Shilpi COLEMAN, On: 25-Nov-2012 Intent Mayda Comments: Computer not running so not able to perform test Aerosol Treatment (60591)By: Shilpi On: 25-Nov-2012 Mayda Bailey DO Spirometry ([id number])By: Thee COLEMAN, On: 21-Nov-2012 Intent Erna A Comments: good effort and curve normal Radiology - Chest- PA and LatBy: On: 21-Nov-2012 Intent Erna Kingston DO Eprescribed prescriptions ([id number])By: On: 21-Nov-2012 Intent Makayla Dillard LPN ADMINISTRATION OF PNEUMOCOCCAL On: 31-Oct-2012 Intent VACCINE (G0009)By: Edita Cabral MD Comments: Lot #[id number]/19/14Site-right deltoidDose0.5mlgiven by: [facility] per fax. M PNEUM VAC ADLT/IMUMNOSPR, SBC/INTRM On: 31-Oct-2012 Intent ([id number])By: Jodi Carvalho LPNcribed prescriptions ([id number])By: On: 18-Oct-2012 Intent Teressa Molina LPN FLU VAC, SPLIT, >3 YEARS, INTRAMUSC On: 01-Jul-2012 Intent ([id number])By: Eli Bowman CNP Comments: Lot:[id number]:6.13Amt:prefilled syringeSite: L Dltd, IMGiven by: MARISA Torres CNP, Mary E ADMINISTRATION OF INFLUENZA VIRUS On: 01-Jul-2012 Intent VACCINE (G0008)By: Eli Bowman CNP, CNP, Mary E [employer]CIMEN HANDLING/TRANSPORT On: 01-Jul-2012 Intent ([id number])By: Sue Ewing LPN Solu -Medrol Injection, 125 mg On: 23-Nov-2011 Intent ([id number])By: Edita Cabral MD Comments: Lot [id number]-R hip, IMDose 125mggiven by:Teressa Radiology - ChestBy: Misha PROCTOR, On: 23-Nov-2011 Intent Edita Clinton Comments: wet read Pulse Oximetry ([id number])By: Benoit On: 23-Nov-2011 Intent AKBAR Aerosol Treatment ([id number])By: Colby On: 16-Nov-2011 Intent Eli WATTERS CNP Elif Pulse Oximetry ([id number])By: Vin, On: 16-Nov-2011 Intent Lynn Comments: 93 FLU VAC, SPLIT, >3 YEARS, INTRAMUSC On: 16-Nov-2011 Intent ([id number])By: Lynn Banuelos Comments: received at work [employer]CIMEN HANDLING/TRANSPORT On: 14-Sep-2011 Intent ([id number])By: Edita Cabral MD SPECIMEN HANDLING/TRANSPORT On: 26-Aug-2011 Intent ([id number])By: Sue Ewing LPN Ultrasound - LiverBy: Misha PROCTOR, On: 11-Jun-2011 Intent Edita Clinton EKG ([id number])By: Edita Cabral MD On: 16-Feb-2011 Intent MAMMOGRAM, SCREENING, BOTH BREASTS On: 13-Mar-2010 Intent ([id number])By: Edita Cabral MD MAMMOGRAM, SCREENING, BOTH BREASTS On: 06-Mar-2010 Intent ([id number])By: Edita Cabral MD MAMMOGRAM, SCREENING, BOTH BREASTS On: 13-Feb-2010 Intent ([id number])By: Edita Cabral MD Spirometry ([id number])By: Misha PROCTOR, On: 01-Oct-2009 Intent Edita Clinton ELECTROCARDIOGRAM, COMPLETE (ECG) On: 01-Oct-2009 Intent ([id number])By: Edita Cabral MD Pulse Oximetry ([id number])By: Benoit On: 01-Oct-2009 Intent AKBAR Spirometry ([id number])By: Thee COLEMAN, On: 30-Jul-2009 Intent Erna Schaefer Comments: good effort and curve normal Radiology - Chest- PA and LatBy: On: 30-Jul-2009 Intent Erna Kingston DO Pulse Oximetry ([id number])By: Vin, On: 30-Jul-2009 Intent Lynn Comments: 94%repeat 97-98 EKG ([id number])By: Erna Kingston DO On: 14-Jul-2009 Intent Comments: ekg showed normal sinus rhythym, normal axis, no acute st/t wave changes old t wave inversion noted on previous ekg Pulse Oximetry ([id number])By: Vin, On: 11-Jul-2009 Intent Lynn Comments: 97% Solu -Medrol Injection, 125 mg On: 09-Jul-2009 Intent ([id number])By: Erna Kingston DO Comments: Lot #:[id number] date:mount given:125mgRoute:IM Site given:left buttockGiven by: MARIA DOLORES Cordon Aerosol Treatment ([id number])By: Thee On: 09-Jul-2009 Erna Bailey DO Pulse Oximetry ([id number])By: Thee COLEMAN, On: 09-Jul-2009 Intent Erna Schaefer Comments: repeat after treatment was 96 Pulse Oximetry ([id number])By: Vin On: 09-Jul-2009 Intent Lynn Comments: 93% Spirometry (48106)By: Gildardo SOUSA, On: 25-Jan-2009 Intent Sue MAMMOGRAM, SCREENING, BOTH BREASTS On: 29-May-2008 Intent ([id number])By: Edita Cabral MD EKG ([id number])By: Edita Cabral MD On: 29-May-2008 Intent Spirometry ([id number])By: Misha PROCTOR, On: 27-Dec-2007 Intent Edita Clinton Ultrasound - ThyroidBy: Misha PROCTOR, On: 22-Mar-2007 Intent Edita Clinton MAMMOGRAM, SCREENING, BOTH BREASTS On: 22-Mar-2007 Intent ([id number])By: Edita Cabral MD MAMMOGRAM, SCREENING, BOTH BREASTS On: 22-Mar-2007 Intent ([id number])By: Edita Cabral MD ELECTROCARDIOGRAM, COMPLETE (ECG) On: 22-Mar-2007 Intent ([id number])By: Edita Cabral MD Planned Medications INJECTION, KETOROLAC [...] disease, bilateral : DISCONTINUED - POTASSIUM SERUM (09982) Indication: Active Meniere's disease, bilateral Elevated LFTs : DISCONTINUED - HEPATIC FUNCTION PANEL (73387) Indication: Elevated LFTs Diabetes mellitus type II, controlled : Patient Instructions Indication: Diabetes mellitus type II, controlled Cough : Patient Instructions Indication: Cough Pharyngitis, acute : Patient Instructions Indication: Pharyngitis, acute Asthma in adult : Patient Instructions Indication: Asthma in adult Active Meniere's disease, bilateral : Patient Instructions Indication: Active Meniere's disease, bilateral Encounters Office Visit On: 12-Sep-2018 9:13 Encounter Reason: [...] reveiwing printed for pt to take to [facility] , [ADDITIONAL REASON] Weight Gain - [...] care, told to go to ER at [facility] diagnosed with Esophagitis was given pepcid [...] occurred following a specific injury (lifting at [employer] for years but no fall). The injury [...] in bathroom. The patient has completed the [facility] preventative measures: PAP smear (needs updated ), mammography (needs updated ) and colonoscopy (needs updated however patient refuse to have done bc she was hospitalized with the last one with infection for 5 days ). The patient does have durable power of trademark attorney and living will. The patient has [...] for Tdap vaccination (Renamed from Need for sxufladysm-xrpyqmd-ayfanpabi (Tdap) vaccine, adult/adolescent), Goiter (Renamed from Big [...] (240.9), Hypothyroidism(244.9) [facility] Payers [employer] [place] [employer] Lilly Toro; a guarantor
--- OUTSIDE RECORDS SUMMARY | 2018-11-25 15:09 | XMS RPT_ITS | Continuity of Care Document ---
:1950 Author Organization [facility] Address [address] [place] [address] Phone Care Team Providers Name Role Phone Colby JANENEEli E Unavailable Mina Baer MD Unavailable Nhung Duval Unavailable [facility], [facility] Unavailable Kasi Scott Unavailable Mariia Zhang Unavailable Dr. Junior Pena Unavailable Navdeep oFx Unavailable Elie Russo Unavailable [facility], [...] with bottles, extensive review with nurse and [facility], med list updated Status: Active Postmenopausal (Renamed from Postmenopausal status) (Z78.0, V49.81) Status: Active Pregnancies () Comments: 2 Status: Active S/P hysterectomy (Z90.710, V88.01) Comments: for endometrial hyperplasia 2015 Status: Active Shortness of breath (R06.02, 786.05) Status: Active Sleep apnea (G47.30, 780.57) Comments: needs repeat sleep study at [facility] per [facility] to get back on cpap Status: Active [...] Caitlin Delaney Start : 29-Jul-2018 Active Ergocalciferol 87708 UNIT Oral Capsule 1 Capsule twice weekly [...] tablet daily (15 MG) Active Comments:Catrachito Pen [place] /16 31G X 5 MM Miscellaneous 1 [...] : 07-Nov-2012 End : 12-Feb-2014 Inactive Drisdol 23434 UNIT Oral Capsule 1 (one) Capsule once [...] : 29-Jul-2010 End : 30-Sep-2010 Inactive Nystatin 240376 UNIT/ML Mouth/Throat Suspension 4-6 Milliliter swish and [...] : 12-Dec-2015 End : 16-Jun-2016 Inactive Comments:per [facility] Topamax 100 MG Oral Tablet [...] 03-Jan-2018 Inactive Comments:1 rambo as directed ZOSTAVAX, 89472YWK/0.65ML (Subcutaneous Solution Reconstituted) 1 For Solution once [...] Start : 04-Jan-2017 End : 04-Jan-2017 Discontinued Comments:[facility] FLEXERIL, 10MG (Oral Tablet) 1 [...] : 13-Nov-2013 End : 13-Nov-2013 Discontinued Comments:ID [id number] Medrol 4 MG Oral Tablet Therapy Pack [...] 18-Jan-2017 End : 27-Jul-2017 Discontinued Vitamin D3 21011 UNIT Oral Tablet 1 (one) Tablet Tablet once a week for 60 days Quantity: 8 {Tablet} Refills: 0 Ordered:04-Jan-2017 Slarb GOLD ASSAYER, Naomi Start : 24-Nov-2016 End : 04-Jan-2017 [...] for Tdap vaccination (Renamed from Need for jtojltjbdp-ktzmksd-culfqfgby (Tdap) vaccine, adult/adolescent) (Z23, V06.1) Status: Inactive as of 12-Dec-2015 Other and unspecified hyperlipidemia (E78.5, 272.4) Status: Inactive as of 24-Jul-2013 Pharyngitis, acute (J02.9, 462) Comments: rapid strep negativeCulture Status: Inactive as of 20-Jan-2016 Pneumonitis (J18.9, 486) Status: Inactive as of 14-May-2014 Pre-operative exam (Renamed from Preop examination) (Z01.818, V72.84) Comments: Getting 4 tooth out 07/17 next week, [facility].HAs MARTHA has CPAP but not been using it for 2 years, need to see Bavis for retitration.Cr : 1.77 , repeat labs, US kidneyDM type 2: HBa1c 5.4 BMI:(obesit y increase the risk of wound infection, PE.Not malnourishedLabs:CBCCMPPT/INRtype and screen gel(59669)EK06/10/16: no acute changesHas good social support and [...] under good control Patient to use Mucinex pydd-ztt-bqorpkc which helped her. Status: Inactive as of [...] Completed Comments: 2000 Tubal ligation 1963 Completed [facility] Left endolymphatic sac Completed decompression with shunt and middle ear infusion with decadron 03/05 Date Value Details 01-Aug-2018 CTA Chest W/WO Contrast Result: Comments: See Note; NOTES: [facility] Imaging Services [address] [place] [address] CTA Chest W/WO Contrast MR#: [id number] Acct: [id number] Name: ELIZABETH TORO Rep #: [id number] : 1950 F 67 From: Hardeep Calix MD PCP: Eli Bowman NP Status: REG CLI Study: CTA Chest W/WO Contrast Date of Exam: 08/01/18 Exam# [id number] Ordering Dr: Eli Bowman STUDY: CTA CHEST/T [...] Service support , CC: Eli Bowman NP Motor Brakeman: Signed 29-Jul-2018 Chest PA and Lateral Result: Comments: See Note; NOTES: [facility] Imaging Services [address] [place] [address] Chest PA and Lateral MR#: [id number] Acct: [id number] Name: ELIZABETH TORO Rep #: [id number] : 1950 F 67 From: Cami Klein MD PCP: Eli Bowman NP Status: REG CLI Study: Chest PA and Lateral Date of Exam: 07/29/18 Exam# [id number] Ordering Dr: Eli Bowman STUDY: X-RAY CHEST [...] Service support , CC: Eli Bowman NP Motor Brakeman: Signed 21-Apr-2018 Downtime Report Result: Comments: See Note; NOTES: [facility] Medical Records Department [address] [place] [address] Downtime Report MR#: [id number] Acct: [id number] Name: ELIZABETH TORO Rep #: : 1950 67 From: Alon Klein PCP: Eli Bowman NP Status: REG RCR This patient was seen during an EMR downtime April 04, 2018 - April 11, 2018. This patient may have a combination of p aper and electronic documentation or all paper documentation. All documentation is viewable within the e-chart portion of [facility] for each patient visit. 12-Apr-2018 NCS and/or EMG Patient Result: Comments: See Note; NOTES: [facility] Pulmonary Services/Neurology [address] [place] [address] MR#: [id number] Acct: [id number] Name: ELIZABETH TORO Rep #: [id number] : 1950 67 From: Kal Hernandez MD Referring Dr: Eli Bowman NP Status: REG CLI Ordering Dr: Date: Location: [facility] Sex: F C NCS and/or EMG [...] ____ Kal Hernandez MD CC: Eli Bowman SENIOR CYBER SECURITY ANALYST; Kal Hernandez MD Date Dictated: 04/12/18949 Date Transcribed: 04/12/18949 Motor Brakeman: MOHIT Signed 01-Feb-2018 PT D/C Summary (1) Result: Comments: See Note; NOTES: [facility] [address] [place] [address]. [address] [place] [phone] Fax REHABILITATION SERVICES DISCHAR SUMMARY MR#: [id number] Acct: [id number] Name: ELIZABETH TORO Rep #: [id number] : 1950 67 From: Cristopher Francis PT, ATC Referring DrJose: Mayda Dobbins DO Status: REG R Insurance: [facility] PART A B PHYSICIAN [employer] INS CO [...] please feel free to call me at [phone]. Thank you for the referral of this patient. Sincerely, Cristopher Francis PT, <Electronically signed by Andrea Francis PT, ATC> 02/01/18 0823 CC: Eli Bowman SENIOR CYBER SECURITY ANALYST; Mayda Dobbins DO [facility] Signed 30-Dec-2017 Inital Evaluation (1) - PT Result: Comments: See Note; NOTES: [facility] [facility] [place] [address] Fax REHABILITATION SERVICES INITIAL EVALUATION MR#: [id number] Acct: [id number] Name: ELIZABETH TORO Rep #: [id number] : 1950 67 From: Cristopher Francis PT, ATC Referring DrJose: Mayda Dobbins DO Status: REG RCR Insurance: [employer] PART A B PHYSICIAN M[employer] INS CO [...] to be FAXED BACK to us at [phone] for Medicare purposes. Please let me know if there are questions or concerns regarding this plan of care. Physician Signature: Date: <Electronically signed by Cristopher Francis PT, ATC> 12/30/17 1056 CC: Eli Bowman NP; Mayda Dobbins DO DT: 0 12/30/17 [facility] Signed For Medicare only, by signing this I certify the plan of care. Physicians Signature Date 08-Oct-2017 Operative Report Result: Comments: See Note; NOTES: [facility] Medical Records Department [address] [place] [address] Operative Report 10/08/172017 MR#: [id number] Acct: [id number] Name: XAVIER TORO Rep #: [id number] : 1950 67 From: Oscar Winston MD PCP: Eli Bowman NP Status: REG [facility] Y Location: [place] [address] Problem List (1) Intrinsic (urethral) sphincter deficiency [...] Discharge Instruction Result: Comments: See Note; NOTES: [facility] Medical Records Department [address] [place] [address] Instructions for Home/Discharge Instructions 10/08/171950 MR#: [id number] Acct: [id number] Name: ELIZABETH TORO Rep #: [id number] : 1950 67 From: Oscar Winston MD [...] an appointment. 10/08/171950 <Electronically signed by Oscar Winstno MD&# 62; Date Oscar Winston MD CC: Eil Bowman NP 30-Aug-2017 Chest PA and Lateral Result: Comments: See Note; NOTES: [facility] Imaging Services [address] [place] [address] Chest PA and Lateral MR#: [id number] Acct: [id number] Name: JAYYELIZABETH A Rep #: [id number] : 1950 F 67 From: Yury Arthur MD PCP: Eli Bowman Status: REG CLI Study: Chest PA and Lateral Date of Exam: 08/30/17 Exam# [id number] Ordering Dr: Mayda Dobbins DO STUDY: X-RAY [...] , CC: Eli Bowman; Mayda Dobbins DO Motor Brakeman: Signed 20-Jul-2017 L/S Spine Min 4 Views Result: Comments: See Note; NOTES: [facility] Imaging Services [address] [place] [address] L/S Spine Min 4 Views MR#: [id number] Acct: [id number] Name: ELIZABETH TORO Rep #: [id number] : 1950 F 66 From: Dionte Lujan DO PCP: Eli Bowman Status: REG CLI Study: L/S Spine Min 4 Views Date of Exam: 07/20/17 Exam# [id number] Ordering Dr: Edita Cabral MD STUDY: X-RAY [...] Fax CC: Eli Bowman; Edita Cabral MD Motor Brakeman: Signed 20-Jul-2017 Shoulder min 2 Views Result: Comments: See Note; NOTES: [facility] Imaging Services [address] [place] [address] Shoulder min 2 Views MR#: [id number] Acct: [id number] Name: ELIZABETH TORO Rep #: [id number] : 1950 F 66 From: Dionte Lujan DO PCP: Eli Bowman Status: REG CLI Study: Shoulder min 2 Views Date of Exam: 07/20/17 Exam# [id number] Ordering Dr: Edita Cabral MD STUDY: X-RAY - RIGHT [facility] REASON FOR EXAM: Female, 66 years old. [...] , CC: Eli Bowman; Edita Cabral MD Motor Brakeman: Signed 11-May-2017 PT D/C Summary (1) Result: Comments: See Note; NOTES: [facility] [address] [place] [address] Fax REHABILITATION SERVICES DISCHAR GE SUMMARY MR#: [id number] Acct: [id number] Name: ELIZABETH TORO Rep #: [id number] : 1950 66 From: Naomi COMER Referring [...] please feel free to call me at [phone]. Thank you for the referral of this patient. Sincerely, Naomi Osorio <Electronically signed by Naomi Osorio MPT> 09/17 0919 CC: Nunu Root; Eli Bowman Signed 14-Apr-2017 Inital Evaluation (1) - PT Result: Comments: See Note; NOTES: [facility] [address] [facility] [place] [address] Fax REHABILITATION SERVICES INITIAL EVALUATION MR#: [id number] Acct: [id number] Name: ELIZABETH TORO Rep #: [id number] : 1950 66 From: Naomi COMER Referring [...] to be FAXED BACK to us at [phone] for Medicare purposes. Please let me know if there are questions or concerns regarding this plan of care. Physician Signature: Date: <Electronically signed by Naomi Osorio MPT> 04/14/17 1906 CC: Nunu Root; Eli Bowman Signed For Medicare only, by sign ing this I certify the plan of care. Physicians Signature Date 08-Apr-2017 Knee 4 or More Views Result: Comments: See Note; NOTES: [facility] Imaging Services [address] [place] [address] Verdana 4d Knee 4 or More Views MR#: [id number] Acct: [id number] Name: ELIZABETH TORO p #: [id number] : 1950 F 66 From: Chalino Mancia MD PCP: Eli Bowman Status: REG CLI Study: Knee 4 or More Views Date of Exam: 04/08/17 Exam# [id number] Ordering Dr: Mayda Dobbins DO STUDY: X-RAY [...] , CC: Eli Bowman; Mayda Dobbins DO Motor Brakeman: Signed 08-Apr-2017 Knee 4 or More Views Result: Comments: See Note; NOTES: [facility] Imaging Services [address] [place] [address] Verdana 4d Knee 4 or More Views MR#: [id number] Acct: [id number] Name: ELIZABETH TORO Viridiana p #: [id number] : 1950 F 66 From: Chalino Mancia MD PCP: Eli Bowman Status: REG CLI Study: Knee 4 or More Views Date of Exam: 04/08/17 Exam# [id number] Ordering Dr: Mayda Dobbins DO STUDY: X-RAY [...] , CC: Eli Bowman; Mayda Dobbins DO Motor Brakeman: Signed 15-Mar-2017 Sleep Study Report Result: Comments: See Note; NOTES: [facility] [address] [place] [address] Polysomnography with NCPAP MR#: [id number] Acct: [id number] Name: JAYYELIZABETH A Re p #: [id number] : 1950 66 From: Kal Hernandez MD [...] version). Please note that a reference to [facility] AHI in this report is consistent with the current Hypopnea definition according to Medicare Criteria and an AASM AHI reference is consistent with the current Hypopnea defini tion according to the AASM criteria and is recognized by [facility] as the RDI. PROCEDURE: The study was attended continuously by a boiler/chiller technician. Monitored parameters included left and right [...] body mass index of 30.9 and an [place] Sleepiness Scale score of 6. There is [...] requested. Kal Hernandez MD T: NTS JOB: [id number] CC: Kal Hernandez MD 1151 1151 03/15/17 1451 <Electronically signed by Kal Hernandez MD> Date Kal Hernandez MD Co-signature (if applicable) Date Signed 05-Jan-2017 Esophagus Only Result: Comments: See Note; NOTES: [facility] Imaging Services [address] [place] [address] Verdana 4d Esophagus Only MR#: [id number] Acct: [id number] Name: ELIZABETH TORO Rep #: [id number] : 1950 F 66 From: Gabriela Ragland MD PCP: Eli Bowman Status: REG CLI Study: Esophagus Only Date of Exam: 01/05/17 Exam# [id number] Ordering Dr: Sofia Bragg MD STUDY: AIR-CONTRAST [...] , CC: Eli Bowman; Sofia Bragg MD Motor Brakeman: Signed 29-Dec-2016 Emergency Department Summary Result: Comments: See Note; NOTES: [facility] Medical Records Department [address] [place] [address] Emergency Department Summary MR#: [id number] Acct: [id number] Name: XAVIER TORO Rep #: [id number] : 1950 66 From: Sofia Bragg MD PCP: Eli Bowman Status: DEP ER DATE OF SERVICE: 12/29/2016 CHIEF COMPLAINT: Sore throat. HISTORY OF PRESENT ILLNESS: This is a 66-year- old woman that states she was at [employer], choked on a piece of potato 5 [...] the case with Dr. Pena who is stone splitter for GI and he suggested ordering an [...] C: Eli Pena MD T: NTS JOB: [id number] 12/29/16 <Electronically signed by Sofia Bragg MD> Date Sofia Bragg MD Cosigner Signature (If Indicated): Date CC: Eli Bowman; Junior Pena Date Dictated: 12/29/161828 Date Transcribed: 12/29/161828 Motor Brakeman: Signed 29-Dec-2016 Discharge Instruction Result: Comments: See Note; NOTES: [facility] Medical Records Department [address] [place] [address] Discharge Instruction 12/29/161829 MR#: [id number] Acct: [id number] Name: ELIZABETH TORO Rep #: [id number] : 1950 66 From: Sofia Bragg MD [...] your Primary Care Provider. Call [facility] ([phone] ) or report to the closest Emergency Room. Call 911 if necessary. 12/29/161832 <Electronically signed by Sofia Bragg MD> Date Sofia elliott MD Cosigner Signature (If Indicated): Date CC: Eli Bowman 07-Aug-2016 Sleep Study Report Result: Comments: See Note; NOTES: [facility] [address] [place] [address] Split Night Sleep Study MR#: [id number] Acct: [id number] Name: ELIZABETH TORO Rep #: [id number] : 1950 65 From: Kal Hernandez MD [...] version). Please note that a reference to [facility] AHI in this report is consistent with the current Hypopnea definition according to Medicare Criteria and an [facility] AHI reference is consistent with the current Hypopnea defin ition according to the AASM criteria and is recognized by [facility] as the RDI. PROCEDURE: The study was attended continuously by a boiler/chiller technician. Monitored parameters included left and right [...] a body mass index of 29.3 and [place] Sleepiness Scale score of 2. There is [...] humidity. Kal Hernandez MD T: NTS JOB: [id number] CC : Kal Hernandez MD 1144 1144 08/07/16 0959 <Electronically signed by Kal Hernandez MD> Date Kal Hernandez MD Co-signature (if applicable) Date Signed -Aug-2016 Kidney and Bladder Result: Comments: See Note; NOTES: [facility] Imaging Services [address] [place] [address] Verdana 4d Kidney and Bladder MR#: [id number] Acct: [id number] Name: ELIZABETH TORO Rep #: [id number] : 1950 F 65 From: Anibal Lan MD PCP: Donnie Gonzales Status: [facility] Study: Kidney and Bladder Date of Exam: 08/04/16 Exam# [id number] Ordering Dr: Beto Henry MD UDY: RENAL [...] Anibal Lan MD at 11:16 EDT Tel [phone], Service support [phone], CC: Soumya Henry M.D.; Donnie Gonzales Motor Brakeman: Signed 23-Jun-2016 Operative Report Result: Comments: See Note; NOTES: [facility] Medical Records Department [address] [place] [address] Operative Report MR#: [id number] Acct: [id number] Name: ELIZABETH TORO Rep #: [id number] : 1950 65 From: Gm Brush MD PCP: Donnie Gonzales Status: REG [facility] DATE OF SERVICE: 06/22/2016 DATE OF PROCEDURE: June 22, 2016 SURGEON: Gm Brush M.D. FILM HISTORIAN: Lia jacinto. ANESTHESIA: Gem Shelby and Frank [...] ovaries. Gm Brush MD T: NTS JOB: [id number] 06/23/16 0725 <Electronically signed by Gm Brush MD> Date __ Gm Brush MD Cosigner Signature (If Indicated): Date CC: Gm Brush MD; Donnie Nolasco Dicta nahed: 06/22/161102 Date Transcribed: 06/22/161102 Motor Brakeman: Signed 22-Jun-2016 Discharge Instruction Result: Comments: See Note; NOTES: [facility] Medical Records Department [address] [place] [address] Instructions for Home/Discharge Instructions 06/22/16 0904 MR#: [id number] Acct: [id number] Name: ELIZABETH TORO Rep #: [id number] : 1950 65 From: Gm Brush MD [...] CC: Donnie Gonzales 10-Jun-2016 ELECTROCARDIOGRAM, COMPLETE (ECG) (56174) Result: [MEASUREMENTS ANALYSIS] Date of Test: 06/10/2016 09:39:53; Heart Rate: 58; CT Interval: 208; QRS: 86; QT Interval: 480; Corrected QT Interval (QTc): 477; P Wave Byron: 45; QRS Wave Byron: 11; T Wave Byron: 23; Blood Pressure: 112/70 [ECG DIAGNOSTIC STATEMENTS] Date of Test: 06/10/2016 09:39:53; Summary: Sinus Bradycardia - Negative T-waves -May be normal - possible Anteroseptal ischemia. BORDERLINE 13-Apr-2016 Operative Report Result: Comments: See Note; NOTES: [facility] Medical Records Department [address] [place] [address] Operative Report MR#: [id number] Acct: [id number] Name: XAVIER TORO LEILANI Schaefer Rep #: [id number] : 1950 65 From: Gm Brush MD PCP: Edita Cabral MD Status: [facility] DATE OF SERVICE: 04/13/2016 DATE OF PROCEDURE: [...] curettings. Gm Brush MD T: NTS JOB: [id number] 04/13/16 1838 <Electronically signed by Gm Brush MD> Date Gm Brush MD Cosigner Signature (If Indicated): Date CC: Edita Young; Gm Brush MD Date Dictated: 04/13/16 1031 Date Transcribed: 04/13/16 103 Motor Brakeman: Signed 13-Apr-2016 Discharge Instruction Result: Comments: See Note; NOTES: [facility] Medical Records Department [address] [place] [address] Instructions for Home/Discharge Instructions 04/13/16 1003 MR#: [id number] Acct: [id number] Name: ELIZABETH TORO Rep #: [id number] : 1950 65 From: Gm Brush MD PCP: Edita Cabral MD Status: REG [facility] Discharge Diet: No Restrictions Discharge Activity: R [...] mg PO DAILY 04/10/16 Hydrocodone Bitart/Apap 5-325 [Goliad 5MG-325MG] 1 tablet PO Q4H PRN PRN #10 tablet 04/13/16 The followi ng prescriptions were given: Hydrocodone Bitart/Apap 5-325 [Goliad 5MG-325MG] 1 tablet PO Q4H PRN PRN #10 tablet PRN Reason: Mod-Severe Pain () Please Follow Up With: Gm Brush When: 2-3 jason bowers 04/13/16 1004 <Electronically signed by Gm Brush MD> Date Gm Brush MD CC: Edita Cabral MD 22-Mar-2016 Emergency Department Summary Result: Comments: See Note; NOTES: [facility] Medical Records Department [address] [place] [address] Emergency Department Summary MR#: [id number] Acct: [id number] Name: ELIZABETH TORO Rep #: [id number] : 1950 65 From: Nando Fuller MD [...] C: Edita Brush MD T: NTS JOB: [id number] 03/22/16 0247 <Electronically signed by Nando Fuller MD&a mp;#62; Date Nando Fuller MD Cosigner Signature (If Indicated): Date CC: Edita Cabral MD; Otilia Brush MD Date Dictated: 03/21/1650 Date Transcribed: 03/21/1650 Motor Brakeman: Signed 21-Mar-2016 Discharge Instruction Result: Comments: See Note; NOTES: [facility] Medical Records Department [address] [place] [address] Discharge Instruction 03/21/168 MR#: [id number] Acct: [id number] Name: ELIZABETH TORO Rep #: [id number] : 1950 65 From: Nando Fuller MD [...] ems, contact your doctor. Call [facility] ([phone]) or report to the closest Emergency Room. Call 911 if necessary. 03/21/16 0049 <Electronically signed by Nando Fuller MD&#6 2; Date Nando Fuller MD Cosigner Signature (If Indicated): Date CC: Edita Cabral MD 20-Mar-2016 Transvaginal Non- Result: Comments: See Note; NOTES: [facility] Imaging Services [address] [place] [address] Verdana 4d Transvaginal Non- MR#: [id number] Acct: [id number] Name: ELIZABETH DIAZ Rep #: [id number] : 1950 F 65 From: Jose Fu PCP: Edita Cabral MD Status: REG ER Study: Transvaginal Non- Date of Exam: 03/20/16 Exam# [id number] Ordering Dr: Oz Fuller MD STUDY: ULTRASOUND [...] DO at 0:42 EDT , Service support [phone], Fax CC: Edita Cabral MD; Nando Fuller MD Motor Brakeman: Signed 25-Feb-2016 Esophagus Only Result: Comments: See Note; NOTES: [facility] Imaging Services [address] [place] [address] Verdana 4d Esophagus Only MR#: [id number] Acct: [id number] Name: XAVIER TORO Rep #: [id number] : 1950 F 65 From: Anibal Lan MD PCP: Edita Cabral MD Status: REG CLI Study: Esophagus Only Date of Exam: 02/25/16 Exam# [id number] Ordering Dr: Donnie Gonzales STUDY: X-RAY - [...] Anibal Lan MD at 10:35 EDT Tel [phone], Service support [phone], Fax RAD/Esophagus Only IMPRESSION: Normal plain film x-ray examination (barium swallow) of the esophagus. Electronically Signed: Anibal Lan MD at 10: 35 EDT Tel [phone], Service support [phone], CC: Edita Cabral MD; Donnie Gonzales Motor Brakeman: Signed 25-Feb-2016 Esophagus Only Result: Comments: See Note; NOTES: [facility] Imaging Services [address] [place] [address] Verdana 4d Esophagus Only MR#: [id number] Acct: [id number] Name: XAVIER TORO Rep #: [id number] : 1950 F 65 From: Anibal Lan MD PCP: Edita Cabral MD Status: REG CLI Study: Esophagus Only Date of Exam: 02/25/16 Exam# [id number] Ordering Dr: Donnie Gonzales ADDENDUM by Anibal Lan MD on 03/31/16 at 0747 ADDENDUM This is an addendum report for PQRS purposes. 19 images were obtained. Electronically Signed: Anibal Lan MD at 7:47 EDT Tel [phone], Service support [phone], 03/31/16 0747 Date cc: Edita Cabral MD; [...] Anibal Lan MD at 10:35 EDT Tel [phone], Service support [phone], RAD/Esophagus Only IMPRESSION: Normal plain film x-ray examination (barium swallow) of the esophagus. Electronically Signed: Anibal Lan MD at 10:35 EDT Tel [phone], Service support [phone], CC: Edita Cabral MD; Donnie Gonzales Motor Brakeman: Signed 10-Dec-2015 12 Lead Electrocardiogram Result: Comments: See Note; NOTES: [facility] Cardiovascular Services [address] [place] [address] 12 Lead EKG 12/08/15 1551 MR#: [id number] Acct: [id number] Name: ELIZABETH DASILVA Rep #: [id number] : 1950 65 From: Francisco Muller MD [...] ECG Confirmed by FRANCISCO MULLER MD ([id number]), editorial project manager ZUNILDA KLEIN ([id number]) on 12/10/2015 9:33:10 AM Referred By: ROMEL Confirmed By:FRANCISCO MULLER MD 12/10/15 0933 Date ___ Francisco Muller MD CC: Edita Cabral MD Date Dictated: 12/08/151550 Date Transcribed: 12/08/151550 Motor Brakeman: Signed 10-Dec-2015 Emergency Department Summary Result: Comments: See Note; NOTES: [facility] Medical Records Department [address] [place] [address] Emergency Department Summary MR#: [id number] Acct: [id number] Name: ELIZABETH TORO Rep #: [id number] : 1950 65 From: Sisi Severino MD [...] Dominguez Galeano C: Edita Cabral MD T: [facility] JOB: [id number] 12/10/15 0232 <Electronically deepti d by Sisi Severino MD> Date Sisi Severino MD Cosigner Signature (If Indicated): Date Dominguez C: Edita Cabral MD Date Dictated: 12/08/151705 Date Transcribed: 12/08/151705 Motor Brakeman: Signed 08-Dec-2015 Discharge Instruction Result: Comments: See Note; NOTES: [facility] Medical Records Department [address] [place] [address] Discharge Instruction 12/08/15 1659 MR#: [id number] Acct: [id number] Name: ELIZABETH TORO Rep #: [id number] : 1950 65 From: Sisi Severino MD [...] problems, contact your doctor. Call [facility] ([phone]) or report to the closest Emergency Room. Call 911 if necessary. 12/08/15 1701 <Electronically signed by Sisi young MD> Date Sisi Severino MD Cosigner Signature (If Indicated): Date CC: Edita Cabral MD 08-Dec-2015 Chest PA and Lateral Result: Comments: See Note; NOTES: [facility] Imaging Services [address] [place] [address] Verdana 4d Chest PA and Lateral MR#: [id number] Acct: [id number] Name: ELIZABETH TORO Rep #: [id number] : 1950 F 65 From: Malaika Diana MD PCP: Edita Cabral MD Status: REG ER Study: Chest PA and Lateral Date of Exam: 12/08/15 Exam# [id number] Ordering Dr: Sisi Severino MD STUDY: X-RAY [...] MD at 16:41 EST , Service support [phone], RAD/Chest PA and Lateral IMPRESSION: No acute disease is demonstrated. Electronic ally Signed: Malaika Diana MD at 16:41 EST , Service support [phone], CC: Edita Cabral MD; Sisi Severino MD Motor Brakeman: Signed 16-Sep-2015 EKG (42015) Result: [MEASUREMENTS ANALYSIS] Date of Test: 09/16/2015 09:46:37; Heart Rate: 74; CT Interval: 192; QRS: 88; QT Interval: 406; Corrected QT Interval (QTc): 430; P Wave Byron: 28; QRS Wave Byron: -3; T Wave Byron: -1; Blood Pressure: 104/60 [ECG DIAGNOSTIC STATEMENTS] Date of Test: 09/16/2015 09:46:37; Summary: Sinus Rhythm Low voltage in precordial leads. - Nonspecific T-abnormality. ABNORMAL 11-Feb-2015 Kidney and Bladder Result: Comments: See Note; NOTES: [facility] Imaging Services [address] [place] [address] Ultrasound Report MR#: [id number] Acct: [id number] Name: ELIZABETH TORO Rep #: [id number] : 1950 F 64 From: Mina Cade MD PCP: Edita Cabral MD Status: REG CLI Study: Kidney and Bladder Date of Exam: 02/11/15 Exam# [id number] Ordering Dr: Edita Cabral MD STUDY: RE [...] MD at 23:11 EDT , Service support [phone], CC: Edita Cabral MD Motor Brakeman: Signed 24-Jul-2014 PT Discharge Summary Result: Comments: See Note; NOTES: [facility] [address] [place] [address]. [address] [place], [place] [address] Fax REHABILITATION SERVICES DISCHARGE SUMMARY MR#: [id number] Acct: [id number] Name: ELIZABETH TORO Rep #: [id number] : 1950 63 From: Naomi Osorio Referring [...] clinic. Naomi Osorio, PT T: NTS JOB: [id number] <Electronically signed by Faraz Osorio > 07/24/14 3360 CC: Signed 15-Jun-2014 PT Discharge Summary Result: Comments: See Note; NOTES: [facility] [address] [place] [address]. [address] [place] [address] Fax REHABILITATION SERVICES DISCHARGE SUMMARY MR#: [id number] Acct: [id number] Name: ELIZABETH TORO Rep #: [id number] : 1950 63 From: Naomi Osorio Referring [...] Sincerely, Naomi Osorio, PT T: NTS JOB: [id number] <Electronically signed by Naomi Osorio & amp;#62; 06/15/14 1410 CC: Signed 25-May-2014 Inital Evaluation - PT Result: Comments: See Note; NOTES: [facility] [address] [place] [address]. [address] [place] [address] Fax REHABILITATION SERVICES INITIAL EVALUATION MR#: [id number] Acct: [id number] Name: ELIZABETH TORO Rep #: [id number] : 1950 63 From: Naomi Osorio Referring DrJose: Edita Cabral MD Status: REG RCR Insurance: [facility] PART [facility] B Eval Date: PHYSICIAN MUTUAL [...] anterolateral shoulder. She is right-handed. 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 Naomi Osorio, PT T: NTS JOB: [id number] <Electronically signed by Naomi Osorio > 4 1241 CC: Signed For Medicare only, by signing this I certify the plan of care. Physicians Signature Date 23-May-2014 Nuclear Stress Test - Chemical Result: Comments: See Note; NOTES: [facility] Imaging Services [address] [place] [address] Nuclear Medicine Report MR#: [id number] Acct: [id number] Name: ELIZABETH TORO Rep #: [id number] : 1950 F 63 From: Tano Nielsen MD PCP: Edita Cabral MD Status: REG CLI Study: Nuclear Stress Test - Chemical Date of Exam: 05/23/14 Exam# [id number] Ordering Dr: Álvaro Cabral MD EXERCISE TOLERANCE [...] LVEF of 61%. CC: Edita Cabral MD Motor Brakeman: PHILLIPS Signed 14-May-2014 Shoulder min 2 Views Result: Comments: See Note; NOTES: [facility] Services [address] [place] [address] Radiology Report MR#: [id number] Acct: [id number] Name: ELIZABETH TORO Rep #: [id number] : 1950 F 63 From: Hardeep Dumont MD PCP: Erna Kingston DO Status: REG CLI Study: Shoulder min 2 Views Date of Exam: 05/14/14 Exam# [id number] Ordering Dr: Edita Cabral MD STUDY: X-RAY [...] Silvio Dumont MD at 12:18 EDT , Via ce support [phone], CC: Edita Cabral MD; Erna Kingston DO Motor Brakeman: Signed 30-Apr-2014 CTA Chest W/WO Contrast Result: Comments: See Note; NOTES: [facility] Imaging Services [address] [place] [address] CAT Scan Report MR#: [id number] Acct: [id number] Name: ELIZABETH TORO Rep #: [id number] : 1950 F 63 From: Hardeep Calix MD PCP: Erna Kingston DO Status: REG CLI Study: CTA Chest W/WO Contrast Date of Exam: 04/30/14 Exam# [id number] Ordering Dr: Erna Kingston DO STUDY: CTA [...] at 19 :01 EDT , Service support [phone], CC: Erna Kingston DO Motor Brakeman: Signed Family History Unknown Family Member Name [...] kg/m2 Body Surface Area Calculated 1.91 m2 10-Xaj-67791:04 Pulse 63 /min Comments: Pattern: Regular Respiration [...] kg/m2 Body Surface Area Calculated 1.91 m2 35-Ukz-455189:07 Pulse 73 /min Comments: Pattern: Regular Respiration [...] kg/m2 Body Surface Area Calculated 1.96 m2 27-Gsl-202917:45 Pulse 80 /min Comments: Pattern: Regular Respiration [...] kg/m2 Body Surface Area Calculated 1.99 m2 68-Eat-916079:03 Pulse 70 /min Comments: Pattern: Regular Respiration [...] kg/m2 Body Surface Area Calculated 1.96 m2 33-Dce-511989:01 Temperature 98.1 f Comments: Method: Oral Pulse [...] kg/m2 Body Surface Area Calculated 1.96 m2 00-Gkd-718566:00 Temperature 97.6 f Comments: Method: Oral Pulse [...] 0.00 cm Results Date Description Value Details 2-Pas-453016:57 CREATININE FINGERSTICK Comments: [facility] [address] [address] EGFR WB 55.0000 mL/min (Abnormal) CREATININE WB 1.1 mg/dL (Abnormal) Range: 0.55-1.02 93-Idw-430321:19 D-Dimer (81257) Comments: PATIENT NOT FASTINGPERFORMED BY: [employer] [place] [id number] D-Dimer 0.57 {mg/L_FEU} (Abnormal) Range: 0.00-0.49 Comments: According to the assay dispatcher tugboat's published package insert, anormal (<0.50 mg/L FEU) D-dimer result in conjunction with a non-highclinical probability assessment, excludes deep vein thrombosis (D VT)and pulmonary embolism (PE) with high sensitivity. .D-dimer values increase with age and this can make VTE exclusion ofan older pop ulation difficult. To address this, the [employer] [employer], based on best available evidence [...] and an80 year old 0.80 mg/L FEU. 87-Mzz-434594:19 Troponin I (35702) Comments: PATIENT NOT FASTINGPERFORMED BY: [employer] Bdmkuv8426 [employer] [id number] Troponin I <0.01 ng/mL (Normal) Range: 0.00-0.04 62-Wba-621357:19 CPK MB FRACTION (01485) Comments: PATIENT NOT FASTINGPERFORMED BY: [facility] [facility] [id number] Creatine Kinase (CK), MB 2.5 ng/mL (Normal) Range: 0.0-5.3 90-Akc-628884:19 CREATINE KINASE TOTAL (87685) Comments: PATIENT NOT FASTINGPERFORMED BY: [facility] [facility] [id number] Creatine Kinase,Total 103 U/L (Normal) Range: 24-173 :16 CBC-Complete Blood Cnt No Diff Comments: [facility] Pgcradknkl4943 [facility]. [place], [place], [id number] MPV 10.5 fL (Normal) Range: 6.2-12.0 PLT [...] Range: 4.4-11.0 :16 Microalb:Creat Ratio,Random UR Comments: [facility] S[address]ambu[address] [facility] [address] [place], [place], [address] MALB:CREAT Test not performed {mg/g_CRE} (Normal) MICROALBUMIN,UR < 5.0 mg/L (Normal) UR CREAT < 13.00 mg/dL (Normal) :16 PTHIN 51.5 pg/mL (Normal) Comments: [facility] [address]xs[address], [id number] Range: 18.4-80.1 :16 Renal Profile Comments: [facility] Dcglltluze[address], [address] CO2 28.0 mmol/L (Normal) Range: 21.0-32.0 CL [...] Comments: Please note revised GLUCOSE reference range nhpfsimuc93/02/2018. 22-Vsb-62786:16 Vitamin D,25 Hydroxy Comments: [facility] [address]pmrk[address], [address] Vitamin D 25-OH 69.4 ng/mL (Normal) Range: 29.95-100.01 Comments: Vitamin D 25(OH) Status Range Deficiency <20 ng/mL (50nmol/L) Insuffciency 20 - 30 ng/mL (50 - 75 nmol/L) Sufficiency 30 - 100 ng/mL (75 - 250 nmol/L) Toxicity >100 ng/mL (>250 nmol/L) :04 HgA1C , Office (24899) HgA1C , Office 5.5 % (Normal) Range: 4.6 - 7.1 :23 CALCIFEDIOL (67516) Comments: PATIENT WAS FASTINGPERFORMED BY: [facility] [facility] [id number] Vitamin D, 25-Hydroxy 43.2 ng/mL (Normal) Range: 30.0-100.0 Comments: Vitamin D deficiency has been defined by the [place] ofMer[facility] Hospitalcine and an Endocrine Society practice guideline as alevel of serum 25-OH vitamin D less than 20 ng/mL (1,2).The Endocrine Society went on to further define vitamin Dinsufficiency as a level between 21 and 29 ng/mL (2).1. IOM ([place] of Medicine). 2010. Dietary reference intakes for calcium and D. [place]: The National Academies Press.2. Azael MF, Leslee LEMON, Hillary PHILLIPS, et al. Evaluation, treatment, and prevention of vitamin D deficiency: an Endocrine Society clinical practice guideline. JCEM. 2010; 96(7):1911-30. 06-Vmm-49867:23 CBC, Platelets & Auto Diff Comments: PATIENT WAS FASTINGPERFORMED BY: LabCoSaint Peter's University HospitalAjqqhq1142 [facility] [id number] (09777) Immature Grans (Abs) 0.0 {x10E3/uL} (Normal) Range: [...] 3.77-5.28 WBC 7.1 {x10E3/uL} (Normal) Range: 3.4-10.8 92-Ygk-87083:23 Metabolic Panel, Comprehensive Comments: PATIENT WAS FASTINGPERFORMED BY: LabCoSaint Peter's University HospitalRombuc7[address] [facility] [id number] (06183) ALT (SGPT) 15 [iU]/L (Normal) Range: 0-32 [...] Glucose, Serum 82 mg/dL (Normal) Range: 65-99 93-Kpb-94414:23 MICROALBUMIN: CREATININE RATIO Comments: PATIENT WAS FASTINGPERFORMED BY: Solve MediaLea Regional Medical CenterXyntno0252 [facility] [id number] (65263) AND (48305) Alb/Creat Ratio <5.6 {mg/g_creat} (Normal) Range: 0.0-30.0 Albumin, Urine <3.0 ug/mL (Normal) Creatinine, Urine 53.5 mg/dL (Normal) 20-Iyg-431418:31 Metabolic Panel, Basic Comments: PATIENT NOT FASTINGPERFORMED BY: [employer] FetchDog [facility] [id number] (36911) Calcium, Serum 9.9 mg/dL (Normal) Range: 8.7-10.3 [...] (Normal) Range: 65-99 :55 HgA1C , Office (02512) Comments: 5.5 HgA1C , Office 5.5 % (Normal) Range: 4.6 - 7.1 6-Ksb-449172:22 VITAMIN B12 AND FOLATES Comments: today; PATIENT NOT FASTINGPERFORMED BY: [facility]Mym[facility] [facility] [id number] (09134) Folate (Folic Acid), Serum >20.0 ng/mL (Normal) Comments: A serum folate concentration of less than 3.1 ng/mL isconsidered to represent clinical deficiency. Vitamin B12 655 pg/mL (Normal) Range: 232-1245 Comments: Please note reference interval change :58 CALCIFEDIOL (17841) Comments: PATIENT NOT FASTINGPERFORMED BY: [employer] Kuwsna[address] [facility] [id number] Vitamin D, 25-Hydroxy 25.2 ng/mL (Abnormal) Range: 30.0-100.0 Comments: Vitamin D deficiency has been defined by the [place] ofMedicine and an Endocrine Society practice guideline as alevel of serum 25-OH vitamin D less than 20 ng/mL (1,2).The Endocrine Society went on to further define vitamin Dinsufficiency as a level between 21 and 29 ng/mL (2).1. IOM ([place] of Medicine). 2010. Dietary reference intakes for calcium and D. [place]: The National Academies Press.2. Azael MF, Leslee NC, Hillary PHILLIPS, et al. Evaluation, treatment, and prevention of vitamin D deficiency: an Endocrine Society clinical practice guideline. JCEM. 2010; 96(7):1911-30. 24-Lib-855889:58 TSH (THYROID STIMULATING Comments: PATIENT NOT FASTINGPERFORMED BY: [employer] Trmxfd5[address] [facility] [id number] HORMONE) (85177) TSH 2.410 {uIU/mL} (Normal) Range: 0.450-4.500 :58 CBC WITH MANUAL DIFF (09998) Comments: PATIENT NOT FASTINGPERFORMED BY: [employer]PillPack Ixzges36[address] [facility] [id number] Immature Grans (Abs) 0.0 {x10E3/uL} (Normal) Range: [...] 3.77-5.28 WBC 7.7 {x10E3/uL} (Normal) Range: 3.4-10.8 25-Xus-183615:58 Metabolic Panel, Comprehensive Comments: PATIENT NOT FASTINGPERFORMED BY: [facility] Zrozoj34[address] [facility] [id number] (14601) ALT (SGPT) 13 [iU]/L (Normal) Range: 0-32 [...] (Normal) Range: 65-99 :07 Bedside Glucose Comments: [facility] Evuo[address] [place], [place] [address] BEDSIDE GLU 100 mg/dL (Normal) Range: 70-110 Comments: MANAGEMENT OF PATIENT CARE PER NURSING PROTOCOL 47-Jfh-558598:14 D-Dimer Quantitative (DVT/PE) Comments: Order Date: 08/30/17Order Info: 27989-7 - [facility]IMERWGlen[facility] Evpkltnfaw2523 [facility] [place], [address] D-DIMER QUANT 0.35 {FEU/ug/m} (Normal) Range: 0.27-0.49 Comments: NORMAL D-Dimer level (<0.50) indicates no DVT or PE. 41-Mer-527462:44 Blood Glucose , Office (44709) Blood Glucose , 129 (Normal) Office :2 Request Problem Final report Comments: PATIENT NOT FASTINGPERFORMED BY: KamidaCoSaint Peter's University HospitalEfkhcz6710 [facility] [id number] Information: MOUTH SRC:MO 1 (Normal) Comments: Inappropriate source for anaerobic culture. A routine aerobic culturewas initiated. Contact the Microbiology Lab for further information. :2 Test Code Change SPR (Normal) Comments: PATIENT NOT FASTINGPERFORMED BY: LabCoSaint Peter's University HospitalDtkhwg0991 [facility] [id number] 1 Comments: Please note that the Microbiology test code was changed to reflectthe specimen source or transport received. 03-Jun-20171:21 Upper Respiratory Culture Comments: PATIENT NOT FASTINGPERFORMED BY: [employer] Vzokcp2803 [facility] [id number] Result 1 RRF (Normal) Comments: Routine respiratory duyen Upper Respiratory Culture Final report (Normal) 77-Ifv-724511:59 Metabolic Panel, Comprehensive Comments: Jul 2017; PATIENT NOT FASTINGPERFORMED BY: [employer] Uaxmbw10[address] [facility] [id number] (00767) ALT (SGPT) 16 [iU]/L (Normal) Range: 0-32 [...] Glucose, Serum 80 mg/dL (Normal) Range: 65-99 48-Kry-146458:59 MAGNESIUM (10682) Comments: today; PATIENT NOT FASTINGPERFORMED BY: [employer] Acsbgy7[address] [facility] [id number] Magnesium, Serum 2.2 mg/dL (Normal) Range: 1.6-2.3 :04 Blood Glucose , Office (60668) Blood Glucose , Office 111 (Normal) :04 HgA1C , Office (23925) HgA1C , Office 5.5 % (Normal) Range: 4.6 - 7.1 :03 CBC W/Diff, Automated Comments: [facility] [address]otgcnxh[address] [place], [address] ; another doc Absolute Lymph 2.35 {X10_3/ul} [...] (Normal) Range: 4.4-11.0 :03 Protein+Creatinine Ratio,Urine Comments: [facility] Ekhcqoeirm[address] [place], [address] PROT:CRE RATIO 403 {mg/g_CRE} (Abnormal) Range: 0-200 PROTEIN,UR.RAN. < 6.0 mg/dL (Normal) UR CREAT 13.90 mg/dL (Normal) :03 PTH,INTACT Comments: [facility] Knndxahbhb[address] [place], [address] PTH,Intact 34 pg/mL (Normal) Range: 14-72 :03 Renal Profile Comments: [facility] Ozdcwplsqh[address] [place], [address] CO2 26.0 mmol/L (Normal) Range: 21.0-32.0 CL [...] report for address and phone number VITD 93891 48.5 pg/mL (Normal) Range: 19.9-79.3 Comments: Performed at: [address] [id number] Director: Navdeep Medley MD, Phone: [phone] 67-Rua-201126:06 Metabolic Panel, Comprehensive Comments: PATIENT NOT FASTINGPERFORMED BY: [facility] [facility] [id number] (65717) ALT (SGPT) 11 [iU]/L (Normal) Range: 0-32 [...] Glucose, Serum 78 mg/dL (Normal) Range: 65-99 55-Llj-675559:06 CBC, Platelets & Auto Diff Comments: PATIENT NOT FASTINGPERFORMED BY: [facility] [facility] [id number] (56851) Immature Grans (Abs) 0.0 {x10E3/uL} (Normal) Range: [...] 9.3 {x10E3/uL} (Normal) Range: 3.4-10.8 :06 TSH (81721) Comments: PATIENT NOT FASTINGPERFORMED BY: LabCoSaint Peter's University HospitalNjukyv4715 [facility] [id number] TSH 3.080 {uIU/mL} (Normal) Range: 0.450-4.500 :56 HgA1C , Office (97167) HgA1C , Office 5.5 % (Normal) Range: 4.6 - 7.1 :56 Blood Glucose , Office (88724) Blood Glucose , Office 81 (Normal) :09 LIPID PANEL (44792) Comments: PATIENT WAS FASTINGPERFORMED BY: [facility] Vghiij32[address] [facility] [id number] LDL/HDL Ratio 2.0 {ratio_units} (Normal) Range: 0.0-3.2 [...] COMPREHENSIVE Comments: PATIENT WAS FASTINGPERFORMED BY: [facility] Wsfhra6514 [facility] [id number] (30450) ALT (SGPT) 15 [iU]/L (Normal) Range: 0-32 [...] Glucose, Serum 104 mg/dL (Abnormal) Range: 65-99 64-Jgq-33072:04 METABOLIC PANEL, COMPREHENSIVE Comments: fax to Dr Henry; PATIENT WAS FASTINGPERFORMED BY: [facility] Ycxunv9463 [facility] [id number] (28385) ALT (SGPT) 16 [iU]/L (Normal) Range: 0-32 [...] CREATININE RATIO Comments: PATIENT WAS FASTINGPERFORMED BY: [facility]AlertB[facility] [id number] (73697) AND (68772) Microalb/Creat Ratio <6.3 {mg/g_creat} (Normal) Range: 0.0-30.0 Microalbumin, Urine <3.0 ug/mL (Normal) Creatinine, Urine 48.0 mg/dL (Normal) :04 HGB A1C (69891) Comments: PATIENT WAS FASTINGPERFORMED BY: [employer]6370 [employer] [place] [id number] Hemoglobin A1c 5.7 % (Abnormal) Range: 4.8-5.6 Comments: . Pre-diabetes: 5.7 - 6.4 Diabetes: >6.4 Glycemic control for adults with diabetes: <7.0 :04 CALCIFEDIOL (19492) Comments: PATIENT WAS FASTINGPERFORMED BY: [employer]6370 [employer] [id number] Vitamin D, 25-Hydroxy 24.2 ng/mL (Abnormal) Range: 30.0-100.0 Comments: Vitamin D deficiency has been defined by the [place] ofMedicine and an Endocrine Society practice guideline as alevel of serum 25-OH vitamin D less than 20 ng/mL (1,2).The Endocrine Society went on to further define vitamin Dinsufficiency as a level between 21 and 29 ng/mL (2).1. IOM ([place] of Medicine). 2010. Dietary reference intakes for calcium and D. [place]: The National Academies Press.2. Azael RUTH, Leslee LEMON, Hillary PHILLIPS, et al. Evaluation, treatment, and prevention of vitamin D deficiency: an Endocrine Society clinical practice guideline. JCEM. 2010; 96(7):1911-30. :04 TSH (THYROID STIMULATING Comments: PATIENT WAS FASTINGPERFORMED BY: [facility]Mym[facility] [facility] [id number] HORMONE) (49966) TSH 2.710 {uIU/mL} (Normal) Range: 0.450-4.500 :04 LIPID PANEL (60609) Comments: PATIENT WAS FASTINGPERFORMED BY: LabMymichigan [facility] [facility] [id number] LDL/HDL Ratio 1.7 {ratio_units} (Normal) Range: 0.0-3.2 [...] AUT DIFF Comments: PATIENT WAS FASTINGPERFORMED BY: LabMym[facility] [facility] [id number] (25208) Immature Grans (Abs) 0.0 {x10E3/uL} (Normal) Range: [...] up testing of positive sera with both CT-3 and MPO- ANCA enzyme immunoassays. As many as 5% serumsamp les are positive only by EIA. Ref. AM J Clin Nlljkl6775;111:507-513. CYTOPLASMIC Ab <1:20 {titer} (Normal) :28 Anti-dsDNA Ab Comments: [facility] (refer to report for specific site)refer to report for address and phone number dsDNA AB <1 {IU/mL} (Normal) Range: 0-9 Comments: Negative <5 Equivocal 5 - 9 Positive >9Performed at: [facility] LabMym[facility]6[address] [place], [place] [id number] D irector: Junior Valera PhD, Phone: [phone] :28 Complement C3 Comments: Is Patient Fasting? [facility] (refer to report for specific site)refer to report for address and phone number COMP C3 127 mg/dL (Normal) Range: 82-167 Comments: Performed at: [facility] LabCo[address] [id number] Director: Junior Valera PhD, Phone: [phone] 08-Sep-20168:28 Complement C4 Comments: Is Patient Fasting? [...] electrophoresis scan will follow via computer,mail, or manager of investigations delivery. LEOPOLDO RESULT,S Comment: (Normal) Comments: Presence of monoclonal protein is unclear at this time. Suggest repeat in 3 to 6 months if clinically indicated. A/G RATIO 0.9 (Normal) Range: 0.7-1.7 GLOBULIN, TOTAL 3.8 g/dL (Normal) Range: 2.2-3.9 M-SPIKE (Normal) Comments: Not Observed GAMMA GLOBULIN 1.4 g/dL (Normal) Range: 0.4-1.8 BETA GLOBULIN 1.3 g/dL (Normal) Range: 0.7-1.3 FLCZD-4-QUZI 0.9 g/dL (Normal) Range: 0.4-1.0 FPTXZ-3-RQJD 0.2 g/dL (Normal) Range: 0.0-0.4 ALBUMIN 3.4 g/dL (Normal) Range: 2.9-4.4 IMMUNOGL M 44 mg/dL (Normal) Range: 26-217 IMMUNO A 614 mg/dL (Abnormal) Range: 87-352 IMMUNO G 1353 mg/dL (Normal) Range: 700-1600 PROTEIN,TOTAL 7.2 g/dL (Normal) Range: 6.0-8.5 :28 Protein+Creatinine Ratio,Urine Comments: [facility] Livgsevmwv[address] [place], [address] PROT:CRE RATIO 128 {mg/g_CRE} (Normal) Range: 0-200 PROTEIN,UR.RAN. 6.5 mg/dL (Normal) UR CREAT 50.60 mg/dL (Normal) :46 RENAL FUNCTION PANEL (13895) Comments: PATIENT NOT FASTINGPERFORMED BY: LabCoLea Regional Medical CenterVfqdqt8751 [facility] [id number] Phosphorus, Serum 4.2 mg/dL (Normal) Range: 2.5-4.5 :46 PT (PROTHROMBIN TIME) (59618) Comments: PATIENT NOT FASTINGPERFORMED BY: LabCoLea Regional Medical CenterEqaztm4046 [facility] [id number] Prothrombin Time 10.9 {sec} (Normal) Range: 9.1-12.0 INR 1.1 (Normal) Range: 0.8-1.2 Comments: Reference interval is for non-anticoagulated patients. . Suggested INR therapeutic range for Vitamin K anta gonist therapy: Standard Dose (moderate intensity therapeutic range): 2.0 - 3.0 Higher intensity therapeutic range 2.5 - 3.5 :46 METABOLIC PANEL, COMPREHENSIVE Comments: PATIENT NOT FASTINGPERFORMED BY: LabCoLea Regional Medical CenterLpxstv7128 [facility] [id number] (97942) ALT (SGPT) 24 [iU]/L (Normal) Range: 0-32 [...] Glucose, Serum 109 mg/dL (Abnormal) Range: 65-99 51-Udc-023250:46 CBC, PLATELETS & AUT DIFF Comments: PATIENT NOT FASTINGPERFORMED BY: LabCoSaint Peter's University HospitalYdhdvp3356 [facility] [id number] Information: [id number] (26370) Immature Grans (Abs) 0.0 {x10E3/uL} (Normal) Range: [...] (Normal) Range: 3.4-10.8 :23 HgA1C , Office (87941) HgA1C , Office 5.4 % (Normal) Range: 4.6 - 7.1 :16 CBC-Complete Blood Cnt No Diff Comments: [facility] Nbqmneeppv7954 [facility] [place], [address] MPV 8.8 fL (Normal) Range: [...] 4.4-11.0 :16 Serum Creatinine AND GFR Comments: [facility] Dyugrlnevk[address] [facility] [address] [place], [place], [id number] Estimated CRCL 27.75 ml/min (Normal) EST GFR - AA 37 mL/min (Abnormal) Comments: GFR Calc EST GFR 30 mL/min (Abnormal) Comments: Non- GFR Calc CREAT,SERUM 1.77 mg/dL (Abnormal) Range: 0.55-1.20 Comments: The validity of the calculated GFR AND GFRAA in patients over70 years has not been determined. Clinical correlation isessential. 76-Rzg-632108:15 Bedside Glucose Comments: [facility]Point of Hnnb[address] [place] [address] BEDSIDE GLU 128 mg/dL (Abnormal) Range: 70-110 Comments: Policy and Physicians Orders followedMANAGEMENT OF PATIENT CARE PER NURSING PROTOCOL HYSTERECTOMY SPECIMEN See Note (Normal) Comments: [facility] [address]qnzcy[address] [place], [address] :39 Comments: Patient: ELIZABETH TORO : 1950 (65/) Acct Num: [id number] Phys: Gonsalo PROCTOR,Gm Unit Num: [id number] Loc: MS1 [id number] Specimen: [id number] Received: 06/22/161336 Spec Ty pe: HYSTERECT TISSUES TISSUES: COMMENT Please make reference to previous specimen ([id number]) endometrial biopsy with diagnosis of consistent with atrophic endometrium and ([id number]) e ndometrium andpolyp, excision with diagnosis of [...] measures 1.2 x 0.7 x 0.6 cm. New Account Interviewer sections are submitted inten cassettes as follows: [...] tube and ovary. / Sridevi 06/22/16 TC:1 CPT:12389 HEADER OPERATION: Lap robotic hysterectomy, BSO PRE-OP [...] Signed Sivakumar Mallory 06/23/16 <signature on file> 59-Mnl-60479:31 Bedside Glucose Comments: [facility] LaboratoryPoint of Aczz[address] [place] [address] BEDSIDE GLU 89 mg/dL (Normal) Range: 70-110 Comments: Physician Notified VBRBMANAGEMENT OF PATIENT CARE PER NURSING PROTOCOL :31 CBC-Complete Blood Cnt No Diff Comments: [facility] Bzzrftuvie[address] [place], [place], [id number] MPV 10.1 fL (Normal) Range: 6.2-12.0 PLT [...] Range: 4.4-11.0 :31 Comprehensive Metabolic Profil Comments: [facility] Lqpcjxpmnm[address] [place], [place], [address] GAP 8 (Normal) Range: 5-15 CO2 24.0 [...] 7-18 GLU 87 mg/dL (Normal) Range: 70-110 72-Zfd-692660:31 Hemoglobin A1c Comments: [facility] Drwydazpas[address] [place], [place], [address] HGB A1C 5.6 % (Normal) Range: 4.2-6.3 :31 Partial Thromboplast Time Comments: [facility] Pzgysrcjea[address] [place], [place], [address] PTT 27.7 s (Normal) Range: 24.1-36.2 38-Rim-834125:31 Prothrombin Time w/INR Comments: [facility] G[address]jshobsy[address] [place], [place], [address] INR 1.1 (Normal) PROTIME 13.4 s (Normal) Range: 11.7-14.9 20-Uig-162053:31 Thyroid Stim Hormone (TSH) Comments: [facility] Fsdrsnwgyf[address] [place], [place], [address] TSH 2.46 {uIU/mL} (Normal) Range: 0.358-3.74 13-Rws-639300:31 Type AND Screen Comments: Surgery Date: 06/22/16Date of Last Transfusion (if within last 3 months) NHx of Preganancy in last 3 Months NoEver experience any problems with transfusion(s)? NHx of Transfusion in last 3 Months N Reason for Type AND Screen/Red Cells: SURGERYTime: 0600SURGICAL PROCEDURE: [facility] C[address]wh[address] [place], [address] Antibody Screen NEGATIVE (Normal) BLOOD TYPE GEL A NEGATIVE (Normal) 54-Ntt-099475:28 Comprehensive Metabolic Profil Comments: Order Date: 06/10/16[facility] [address]zrdnw[address] [place], [address] GAP 5 (Normal) Range: 5-15 [...] 7-18 GLU 79 mg/dL (Normal) Range: 70-110 11-Fub-534984:58 CBC W/Diff, Automated Comments: [facility] F[address]hvxzu[address] [place], [address] Absolute Lymph 2.98 {X10_3/ul} (Normal) [...] 4.2-5.4 WBC 8.7 K/mm3 (Normal) Range: 4.4-11.0 21-Dlv-880662:58 Comprehensive Metabolic Profil Comments: Is Patient Taking Vitamins or Folic Acid Supplements? [facility] Gqlnwstdfq[address] [place], [place], [address] GAP 8 (Normal) Range: 5-15 CO2 29.0 [...] 7-18 GLU 95 mg/dL (Normal) Range: 70-110 42-Veh-665805:58 Erythrocyte Sed Rate Comments: [facility] L[address] [place], [address] SED RATE 25 mm/h (Normal) Range: 0-30 83-Dvr-522767:58 Folates, (Folic Acid) Comments: Is Patient Taking Vitamins or Folic Acid Supplements? [facility] [address] [place], [place], [phone] FOLATES 9.60 ng/mL (Normal) Range: 3.1-17.5 94-Vvw-236682:58 Thyroid Stim Hormone (TSH) Comments: Is Patient Taking Vitamins or Folic Acid Supplements? [facility] I[address] [place], [address] TSH 2.58 {uIU/mL} (Normal) Range: 0.358-3.74 85-Kuv-753383:58 Vitamin B12 543 pg/mL (Normal) Comments: [facility] [address] [place], [address] Range: 211-911 00-Hqc-071765:07 Urinalysis, Office (04954) UA - LEUKOCYTE ESTERASE Trace (Normal) UA - NITRITE Negative (Normal) URINE UROBILINGN SHARIFA TIMED Normal mg/dL (Normal) UA - PROTEIN Negative mg/dL (Normal) UA - PH 6.5 (Normal) UA - BLOOD Hemolyzed Trace (Normal) UA - SPECIFIC GRAVITY 1.005 (Normal) UA - KETONES Negative mg/dL (Normal) UA - BILIRUBIN Negative (Normal) UA - GLUCOSE Negative (Normal) 51-Kyf-183678:04 URINE VERÓNICA CULTURE-SHARIFA COL Comments: PATIENT NOT FASTINGPERFORMED BY: [facility] Rzttmn6573 [facility] [id number] Information: SRC:[facility] [id number] COUNT (68638) Antimicrobial MIHEAD (Normal) Comments: S = Susceptible; [...] (Abnormal) Urine Final report Culture,Comprehensive (Abnormal) EGD ([facility]) See Note (Normal) Comments: [facility] Icf[address]qvcjv[address] [place], [address] 7[address]:04 Comments: Patient: ELIZABETH TORO : 1950 (65/F) Acct Num: [id number] Phys: Junior Pena Unit Num: [id number] Loc: LABSPEC Specimen: [id number] Received: 04/21/16 - 1715 Spec Type: EGD BIOPSY TISSUES TISSUES: COMMENT [...] in one cassette. / SJ:stormy 04/22/16 TC:3 CPT:75887 HEADER OPERATION: EGD with biopsy PRE-OP DIAGNOSIS: Dysphagia TISSUE SUBMITTED: Esophageal biopsy, R/O EE MICROSCOPIC DESCRIP TION Slides are reviewed. MICROSCOPIC DIAGNOSIS Esophageal biopsy: Fragments of squamous epithelium with mild chronic inflammation. See comment. SJ:stormy 04/23/16 Signed Sivakumar Malolry 04/23/16 <signature on file> CERVICAL See Note (Normal) Comments: [facility] [address]feaw[address] [place], [address]25:15 Comments: Patient: ELIZABETH TORO : 1950 (65/F) Acct Num: [id number] Phys: Gonsalo PROCTOR,[facility] Unit Num: [id number] Loc: [facility] Specimen: [id number] Received: 04/13/161335 Spec Type: CER V TISSUES [...] one cassette. / AM: 04/13/16 TC:5 CPT: 05063 x 2 HEADER OPERATION: Hysteroscopy, diagnostic, D AND C PRE-OP DIAGNOSIS: Postmenopausal bleeding TISSUE SUBMITTED: A - Endocervical curettings, B - Endometrial curettings and polyp [facility] DESCRIPTION Slides are reviewed. MICROSCOPIC DIAGNOSIS A. Endocervix, curettings: Strips of benign superficial endocervix. Rare strips of benign superficial ectocervix. B. Endom etrium and polyp, excision: Benign endometrial polyp with simple cystic hyperplasia without atypia. Scant strips of benign superficial endometrium. AM:trena 04/14/16 Signed Ras Easley 04/14/16 <signature on file> :04 Bedside Glucose Comments: [facility] LaboratoryPoint of Ivol[address] [place] [address] BEDSIDE GLU 98 mg/dL (Normal) Range: 70-110 Comments: No Action RequiredMANAGEMENT OF PATIENT CARE PER NURSING PROTOCOL :08 CBC-Complete Blood Cnt No Diff Comments: [facility] R[address]bfxglb[address] [place], [address] MPV 9.4 fL (Normal) Range: [...] Range: 4.4-11.0 :08 Comprehensive Metabolic Profil Comments: [facility] Wqjrgonayk[address] [place], [place], [address] GAP 8 (Normal) Range: 5-15 CO2 24.0 [...] Range: 70-110 :08 Partial Thromboplast Time Comments: [facility] Tuiqdhvngy0716 [facility] [place], [place], [address] PTT 29.8 s (Normal) Range: 24.1-36.2 :08 Prothrombin Time w/INR Comments: [facility] Kohtfhzvrr9820 [facility]. [place], [place], [address] INR 1.1 (Normal) PROTIME 13.6 s (Normal) Range: 11.7-14.9 :08 Type AND Screen Comments: Surgery Date: 04/13/16Date of Last Transfusion (if within last 3 months) NHx of Preganancy in last 3 Months NoEver experience any problems with transfusion(s)? NHx of Transfusion in last 3 Months N Reason for Type AND Screen/Red Cells: SURGERYTime: 1015S[facility]GICAL PROCEDURE[facility] [address]asycsovl9[address] [place], [address] Antibody Screen NEGATIVE (Normal) BLOOD TYPE GEL A NEGATIVE (Normal) ENDOMETRIAL See Note (Normal) Comments: [facility] [address] [place], [address] 6:00 BX/CURETTINGS Comments: Patient: ELIZABETH TORO : 1950 (65/F) Acct Num: [id number] Phys: Gonsalo PROCTOR,Gm Unit Num: [id number] Loc: LABSPEC Specimen: [id number] Received: 03/26/16 - 1599 Spec Type: ENDOM [...] in one cassette. / AM:stormy 03/27/16 TC:4 CPT:77805 HEADER OPERATION: Endometrial biopsy PRE-OP DIAGNOSIS: N95.0 TISSUE SUBMITTED: EMB MICROSCOPIC DESCRIPTION Slides are vicky boyer. MICROSCOPIC DIAGNOSIS Endometrial biopsy: Scant strips of benign endometrial epithelium, consistent with atrophic endometrium. Fragments of benign endocervical epithelium and mucous. SJ:stormy 03/31/16 Signed Sivakumar Mallory 03/31/16 <signature on file> 42-Ene-473333:00 PAP I-G w/ Reflex to HR Comments: CYTOLOGY INFORMATION:- CLINICAL INFORMATION: POSTMENOPAUSAL- DATE LMP/MENOPAUSE: MENOPAUSE- COLLECTION VIAL: Thin Prep Vial- PHARMACIST'S AIDE SOURCE: CERVICAL/ENDOCERVICAL- COLLECTION TECHNIQUE: BRUSH/ SPATULASpeci HPV men Comment: [id number] Comment: No. of containers..01 CYTYC Thin Prep VialLabCorp (refer to report for specific site)refer to report for address and phone number HPV RFLX Comment (Normal) Comments: The HPV DNA reflex criteria were not met with this specimenresult therefore, no HPV testing was performed.Performed at: [address] StreetZenon martínez [place] [id number] Director: Annamaria Menezes MD, Phone: [phone] PAPSMR Comment (Normal) Comments: The Pap smear [...] system. PERFORM Comment (Normal) Comments: Adeline Singleton, Jewel Cupping Machine Operator (ASCP) ADEQ Comment (Normal) Comments: Satisfactory for evaluation. DIAGN Comment (Normal) Comments: NEGATIVE FOR INTRAEPITHELIAL LESION AND MALIGNANCY. 10-Svn-24442:20 Urinalysis, Complete Comments: How was Urine Obtained? CONDOMINIUM PROPERTY MANAGER TO SPECIFYKind[facility] Jrxjlyyvye[address] [place], [place], [address] MUCUS, URINE 0 SEEN {/hpf} (Normal) BACTERIA [...] (Normal) CLARITY Clear (Normal) COLOR Straw (Normal) 72-Umj-530704:50 Basic Metabolic Profile (BMP) Comments: [facility] Q[address]ipympuk[address] [place], [address] GAP 7 (Normal) Range: 5-15 [...] <126 mg/dLsuggests IMPAIRED HOMEOSTASIS per A.D.A. criteria. 79-Luv-051789:50 CBC W/Diff, Automated Comments: [facility] Egardqgtwo47[address] [place], [address] Absolute Lymph 3.53 {X10_3/ul} (Normal) [...] K/mm3 (Normal) Range: 4.4-11.0 :02 Rapid Flu (14230 x 2) Influenza A Ag negative (Normal) 3-Idm-209046:31 SJOGREN ANTIBOIDIES Comments: PATIENT NOT FASTINGPERFORMED BY: LabCoSaint Peter's University HospitalCbjtme5716 [facility] [id number] Information: [id number] (ANTI-SS-A/ANTI-SS-B) (07302) Sjogren's Anti-SS-B <0.2 {AI} (Normal) Range: 0.0-0.9 Sjogren's Anti-SS-A <0.2 {AI} (Normal) Range: 0.0-0.9 :28 Rapid Strep Test, Office (74357) Rapid Strep Test, Office Negative (Normal) 2-Woy-408801:37 Throat Culture (45444) Comments: PATIENT NOT FASTINGPERFORMED BY: LabCoSaint Peter's University HospitalWcgotc1090 [facility] [id number] Information: SRC:THRT [id number] Result 1 BETAGB (Abnormal) Comments: Beta hemolytic [...] Serial specimen #1, #2, #3, or #4: [facility] Tpnihdshnm7[address] [place], [place], [address] GAP 9 (Normal) Range: 5-15 CO2 23.0 [...] Range: 70-110 :45 CBC W/Diff, Automated Comments: [facility] Gmdzbwdelk89[address] [place], [place], [address] Absolute Lymph 2.03 {X10_3/ul} (Normal) Range: 0.83-4.51 [...] Serial specimen #1, #2, #3, or #4: [address] [place] [address] Zfkygluxfp3073 [place], [address] TSH 1.50 {uIU/mL} (Normal) Range: 0.358-3.74 9-Hhf-957732:45 Troponin-I Comments: 'TROP' Serial specimen #1, #2, #3, or #4: [address] [place] [address] Mztfhycmhr4260 [place], [address] TROPONIN-I < 0.02 ng/mL (Normal) Comments: TROPONIN-I EXPECTED VALUES <0.05 NEGATIVE 0.06 - 0.59 AT RISK OF [place] > OR = 0.60 SUGGEST [place] :53 Pap IG (Image Comments: Source.............Cervical;EndocervicalNo. of containers..01 CYTYC Thin Prep VialPATIENT NOT FASTINGPERFORMED BY: =G [address] [id number] BY: WB L Guided) ELERTS[address] [id number] Note: PAPSMR (Normal) Comments: The Pap smear [...] of partially obscuring exudate are present.Z00.00Adeline Singleton Jewel Cupping Machine Operator (ASCP) :01 HgA1C , Office (33176) HgA1C , Office 5.9 % (Normal) Range: 4.6 - 7.1 :00 Blood Glucose , Office (27843) Blood Glucose , Office 126 (Normal) :53 Thin Prep Pap Comments: Source.............Cervical;EndocervicalNo. of containers..01 CYTYC Thin Prep VialPATIENT NOT FASTINGPERFORMED BY: =Rodríguez [facility] [address] [place] [address] [id number] BY: SARAY Jose ([address]119) [address] [id number] Information: [id number] Age Gdln ACOG Testing AGE4 (Normal) Comments: <21 or >65 or no age provided :34 METABOLIC PANEL, Comments: PATIENT WAS FASTINGPERFORMED BY: EMIL [facility] Bheyok7[address] [facility] [id number] Information: [id number] COMPREHENSIVE (33240) ALT (SGPT) 18 [iU]/L (Normal) Range: 0-32 [...] Glucose, Serum 83 mg/dL (Normal) Range: 65-99 06-Pvj-12409:34 CALCIFIDIOL (43788) VIT D 25 Comments: PATIENT WAS FASTINGPERFORMED BY: [facility] [facility] [id number] Vitamin D, 25-Hydroxy 59.6 ng/mL (Normal) Range: 30.0-100.0 Comments: Vitamin D deficiency has been defined by the [place] of[place]icine and an Endocrine Society practice guideline as alevel of serum 25-OH vitamin D less than 20 ng/mL (1,2).The Endocrine Society went on to further define vitamin Dinsufficiency as a level between 21 and 29 ng/mL (2).1. IOM ([place] of Medicine). 2010. Dietary reference intakes for calcium and D. [place]: The National Academies Press.2. Azael RUTH, Leslee LEMON, Hillary PHILLIPS, et al. Evaluation, treatment, and prevention of vitamin D deficiency: an Endocrine Society clinical practice guideline. JCEM. 2010; 96(7):1911-30. :37 HgA1C , Office (56290) HgA1C , Office 6.1 % (Normal) Range: 4.6 - 7.1 :37 Blood Glucose , Office (15965) Blood Glucose , Office 107 (Normal) :27 TSH (THYROID STIMULATING Comments: PATIENT WAS FASTINGPERFORMED BY: [facility] Udmlyl1535 [address] RoadDublin [place] [id number] HORMONE) (41823) TSH 2.480 {uIU/mL} (Normal) Range: 0.450-4.500 : CALCIFEDIOL (28980) Comments: PATIENT WAS FASTINGPERFORMED BY: [facility] Wmpsql3715 [address] RoadDublin [place] [id number] Vitamin D, 25-Hydroxy 16.7 ng/mL (Abnormal) Range: 30.0-100.0 Comments: Vitamin D deficiency has been defined by the [place] of[place]icine and an Endocrine Society practice guideline as alevel of serum 25-OH vitamin D less than 20 ng/mL (1,2).The Endocrine Society went on to further define vitamin Dinsufficiency as a level between 21 and 29 ng/mL (2).1. IOM ([place] of Medicine). 2010. Dietary reference intakes for calcium and D. [place]: The National Academies Press.2. Azael RUTH, Leslee LEMON, Hillary PHILLIPS, et al. Evaluation, treatment, and prevention of vitamin D deficiency: an Endocrine Society clinical practice guideline. JCEM. 2010; 96(7):1911-30. :27 LIPID PANEL (35427) Comments: PATIENT WAS FASTINGPERFORMED BY: [facility] Ixyjug9192 [address] RoadDublin [place] [id number] LDL/HDL Ratio 1.2 {ratio_units} (Normal) Range: 0.0-3.2 [...] Cholesterol, Total 138 mg/dL (Normal) Range: 100-199 85-Uts-45764:27 METABOLIC PANEL, COMPREHENSIVE Comments: PATIENT WAS FASTINGPERFORMED BY: LabCoSaint Peter's University HospitalLxvdqh8025 [facility] [id number] (36354) ALT (SGPT) 19 [iU]/L (Normal) Range: 0-32 [...] Glucose, Serum 121 mg/dL (Abnormal) Range: 65-99 27-Dhe-87574:27 CBC, PLATELETS & MANUAL Comments: PATIENT WAS FASTINGPERFORMED BY: Solve MediaSaint Peter's University HospitalXkcsmh9050 [facility] [id number] Information: [id number] DIFF (53396) Immature Grans (Abs) 0.0 {x10E3/uL} (Normal) Range: [...] 3.77-5.28 WBC 7.0 {x10E3/uL} (Normal) Range: 3.4-10.8 77-Exm-158000:31 CREATININE CLEARANCE Comments: PATIENT NOT FASTINGPERFORMED BY: LabCoSaint Peter's University HospitalTtcsbz2778 [facility] [id number] Information: [id number] START @9AM FINISH 01/28/15@9 AM (77885) Creatinine Clearance 53 mL/min (Abnormal) Range: 88-128 [...] Hour Urine Comments: PATIENT NOT FASTINGPERFORMED BY: [employer] locr [facility] [id number] (25617) Prot,24hr calculated 357.5 {mg/24_hr} (Abnormal) Range: 30.0-150.0 Protein,Total,Urine 13.0 mg/dL (Normal) Range: 0.0-15.0 :28 HgA1C , Office (40879) HgA1C , Office 5.9 % (Normal) Range: 4.6 - 7.1 :28 Blood Glucose , Office (01438) Blood Glucose , Office 136 (Normal) :53 TSH (80890) Comments: PATIENT WAS FASTINGPERFORMED BY: [employer] Wafgso5597 [facility] [id number] TSH 4.370 {uIU/mL} (Normal) Range: 0.450-4.500 :53 MICROALBUMIN: CREATININE RATIO Comments: PATIENT WAS FASTINGPERFORMED BY: [employer] FetchDog [facility] [id number] (03989) AND (25140) Microalb/Creat Ratio 5.0 {mg/g_creat} (Normal) Range: 0.0-30.0 Microalbumin, Urine 4.5 ug/mL (Normal) Range: 0.0-17.0 Creatinine, Urine 90.5 mg/dL (Normal) Range: 15.0-278.0 :53 METABOLIC PANEL, COMPREHENSIVE Comments: PATIENT WAS FASTINGPERFORMED BY: EMIL [employer] [facility] [id number] (26180) ALT (SGPT) 20 [iU]/L (Normal) Range: 0-32 [...] mg/dL (Abnormal) Range: 65-99 :53 LIPID PANEL (49831) Comments: PATIENT WAS FASTINGPERFORMED BY: MySmartPrice[address] [facility] [id number] LDL/HDL Ratio 1.4 {ratio_units} (Normal) Range: 0.0-3.2 [...] DIFF WBC Comments: PATIENT WAS FASTINGPERFORMED BY: LabCoSaint Peter's University HospitalSkvakm3870 [facility] [id number] Information: [id number] (46165) Immature Grans (Abs) 0.0 {x10E3/uL} (Normal) Range: [...] 7.8 {x10E3/uL} (Normal) Range: 3.4-10.8 :53 CALCIFIDIOL (94100) VIT D 25 Comments: PATIENT WAS FASTINGPERFORMED BY: Lab[facility] Mfvoky9531 [facility] [id number] Vitamin D, 25-Hydroxy 22.5 ng/mL (Abnormal) Range: 30.0-100.0 Comments: Vitamin D deficiency has been defined by the [place] of[place]icine and an Endocrine Society practice guideline as alevel of serum 25-OH vitamin D less than 20 ng/mL (1,2).The Endocrine Society went on to further define vitamin Dinsufficiency as a level between 21 and 29 ng/mL (2).1. IOM ([place] of Medicine). 2010. Dietary reference intakes for calcium and D. [place]: The National Academies Press.2. Azael MF, Leslee LEMON, Hillary PHILLIPS, et al. Evaluation, treatment, and prevention of vitamin D deficiency: an Endocrine Society clinical practice guideline. JCEM. 2010; 96(7):1911-30. :22 HgA1C , Office (81487) HgA1C , Office 6.0 % (Normal) Range: 4.6 - 7.1 :22 Blood Glucose , Office (30399) Blood Glucose , Office 132 (Normal) :27 Blood Glucose , Office (91004) Blood Glucose , Office 114 (Normal) :27 HgA1C , Office (05375) HgA1C , Office 5.9 % (Normal) Range: 4.6 - 7.1 :00 Basic Metabolic Panel (8) Comments: PATIENT NOT FASTINGPERFORMED BY: LabCoSaint Peter's University HospitalBhtwdv3097 [facility] [id number] BY: Lab[address] [id number] Calcium, Serum 9.8 mg/dL (Normal) Range: 8.6-10.2 [...] 287 {mOsmol/kg} Comments: PATIENT NOT FASTINGPERFORMED BY: [employer] Tmlhwa7928 [facility] [id number] BY: [employer] [id number] 00 (Normal) Range: 280-301 : Osmolality, Urine 259 {mOsmol/kg} Comments: PATIENT NOT FASTINGPERFORMED BY: WebCurfewlin6[address] [facility] [id number] BY: [employer] [id number] 00 (Normal) Comments: 24 hr : 300 - 900 Random: 50 - 1400 After 12hr fluid restriction: >850 : Sodium, Urine 11 mmol/L (Normal) Comments: PATIENT NOT FASTINGPERFORMED BY: [employer] Vbeodi8232 [facility] [id number] BY: [employer] [id number] 00 7-Qvy-588324:06 Metabolic Panel, Basic Comments: PATIENT NOT FASTINGPERFORMED BY: [employer] Amhogq25[address] [facility] [id number] Information: [id number] (69552) Calcium, Serum 9.9 mg/dL (Normal) Range: 8.6-10.2 [...] Glucose, Serum 108 mg/dL (Abnormal) Range: 65-99 94-Ufn-019486:34 CBCD Comments: pt has apt with db [...] <0.05 NEGATIVE0.06 - 0.59 AT RISK OF [place]> OR = 0.60 SUGGEST [place] 31-Djj-902028:34 TSH 2.32 {uIU/mL} (Normal) Comments: 'TROP' Serial specimen #1, #2, #3, or #4: 1 Range: 0.358-3.74 01-May-20140:00 Microscopic Examination Comments: PATIENT WAS FASTINGPERFORMED BY: [facility] Gxilgy3522 [address] RoadDublin [place] [id number] Bacteria Few (Normal) Mucus Threads Present (Normal) Epithelial Cells (non renal) 0-10 {/hpf} (Normal) Range: 0 - 10 RBC 0-2 {/hpf} (Normal) Range: 0 - 2 WBC 11-30 {/hpf} (Abnormal) Range: 0 - 5 03-Alr-508709:15 TSH (24290) Comments: PATIENT WAS FASTINGPERFORMED BY: [facility] Wiqklk4354 [address] RoadDublin [place] [id number] TSH 3.310 {uIU/mL} (Normal) Range: 0.450-4.500 27-Hqu-016242:15 CALCIFIDIOL (06976) VIT D 25 Comments: PATIENT WAS FASTINGPERFORMED BY: CB [facility] Llctlk7222 [address] RoadDublin [place] [id number] Vitamin D, 25-Hydroxy 35.7 ng/mL (Normal) Range: 30.0-100.0 Comments: Vitamin D deficiency has been defined by the [place] of[place]icine and an Endocrine Society practice guideline as alevel of serum 25-OH vitamin D less than 20 ng/mL (1,2).The Endocrine Society went on to further define vitamin Dinsufficiency as a level between 21 and 29 ng/mL (2).1. IOM ([place] of Medicine). 2010. Dietary reference intakes for calcium and D. [place]: The National Academies Press.2. Azael MF, Leslee NC, Hillary PHILLIPS, et al. Evaluation, treatment, and prevention of vitamin D deficiency: an Endocrine Society clinical practice guideline. JCEM. 2010; 96(7):1911-30. 78-Dbv-034436:15 URINALYSIS, W/ MICRO (37077) Comments: PATIENT WAS FASTINGPERFORMED BY: [facility] Ywwqug10[address] [facility] [id number] Microscopic Examination See below: (Normal) Nitrite, Urine Positive (Abnormal) Bilirubin Negative (Normal) Urobilinogen,Semi-Qn 0.2 mg/dL (Normal) Range: 0.0-1.9 Ketones Negative (Normal) Occult Blood Negative (Normal) Glucose Negative (Normal) Protein Negative (Normal) Appearance Clear (Normal) WBC Esterase 2+ (Abnormal) pH 6.5 (Normal) Range: 5.0-7.5 Urine-Color Yellow (Normal) Specific [place]ity 1.015 (Normal) Range: 1.005-1.030 52-Wex-313930:15 METABOLIC PANEL, COMPREHENSIVE Comments: PATIENT WAS FASTINGPERFORMED BY: [facility] Aditba64[address] [facility] [id number] (50451) ALT (SGPT) 19 [iU]/L (Normal) Range: 0-32 [...] Glucose, Serum 118 mg/dL (Abnormal) Range: 65-99 44-Anl-223776:15 LIPID PANEL (30758) Comments: PATIENT WAS FASTINGPERFORMED BY: Solve MediaSaint Peter's University HospitalApynes50[address] [facility] [id number] LDL/HDL Ratio 1.7 {ratio_units} (Normal) Range: 0.0-3.2 LDL Cholesterol Calc 90 mg/dL (Normal) Range: 0-99 VLDL Cholesterol Hillary 33 mg/dL (Normal) Range: 5-40 HDL Cholesterol 53 mg/dL (Normal) Comments: According to ATP-III Guidelines, HDL-C >59 mg/dL is considered anegative risk factor for CHD. Triglycerides 166 mg/dL (Abnormal) Range: 0-149 Cholesterol, Total 176 mg/dL (Normal) Range: 100-199 03-Nlg-559193:15 CBC WITH MANUAL DIFF Comments: PATIENT WAS FASTINGPERFORMED BY: Solve MediaSaint Peter's University HospitalGenmqx2165 [facility] [id number] Information: [id number] (99915) Immature Grans (Abs) 0.0 {x10E3/uL} (Normal) Range: [...] 3.77-5.28 WBC 7.0 {x10E3/uL} (Normal) Range: 3.4-10.8 13-Jkj-009816:20 Blood Glucose , Office (69934) Blood Glucose , Office 102 (Normal) 51-Moz-460133:20 HgA1C , Office (21549) HgA1C , Office 6.0 % (Normal) Range: 4.6 - 7.1 [id number]-Xwr-[id number]:27 URINE VERÓNICA CULTURE-IDENTIFICATN Comments: PATIENT NOT FASTINGPERFORMED BY: [facility] Nozoqu[address] [facility] [id number] Information: [id number] ([id number]) Result 1 NG36 (Normal) Comments: No growth in 36 - 48 hours. Urine Culture,Comprehensive Final report (Normal) 9-Dcq-[id number]:03 URINALYSIS (04053) URINALYSIS neg for all (Normal) 02-Ymf-17241:31 URINE VERÓNICA CULTURE-SHARIFA COL Comments: PATIENT NOT FASTINGPERFORMED BY: [facility] Pvslob66[address] [facility] [id number] Information: SRC:UR [id number] COUNT ([id number]) Antimicrobial MIHEAD (Normal) Comments: S = Susceptible; [...] Final report Culture,Comprehensive (Normal) :26 Urinalysis, Office (82287) UA - LEUKOCYTE ESTERASE Moderate (Normal) UA - NITRITE Negative (Normal) URINE UROBILINGN SHARIFA TIMED Normal mg/dL (Normal) UA - PROTEIN Negative mg/dL (Normal) UA - PH 5 (Abnormal) UA - BLOOD Hemolyzed Small (Normal) UA - SPECIFIC GRAVITY 1.025 (Normal) UA - KETONES Negative mg/dL (Normal) UA - BILIRUBIN Negative (Normal) UA - GLUCOSE Negative (Normal) :52 LIPID PANEL (27863) Comments: PATIENT WAS FASTINGPERFORMED BY: Buzzoek70 [facility] [id number] Information: [id number] LDL/HDL Ratio 2.1 {ratio_units} (Normal) Range: 0.0-3.2 LDL Cholesterol Calc 111 mg/dL (Abnormal) Range: 0-99 VLDL Cholesterol Hillary 31 mg/dL (Normal) Range: 5-40 HDL Cholesterol 53 mg/dL (Normal) Comments: According to ATP-III Guidelines, HDL-C >59 mg/dL is considered anegative risk factor for CHD. Triglycerides 156 mg/dL (Abnormal) Range: 0-149 Cholesterol, Total 195 mg/dL (Normal) Range: 100-199 :52 HEPATIC FUNCTION PANEL (53164) Comments: PATIENT WAS FASTINGPERFORMED BY: Buzzoek70 [facility] [id number] ALT (SGPT) 17 [iU]/L (Normal) Range: 0-32 AST (SGOT) 23 [iU]/L (Normal) Range: 0-40 Alkaline Phosphatase, S 57 [iU]/L (Normal) Range: 39-117 Bilirubin, Direct 0.08 mg/dL (Normal) Range: 0.00-0.40 Bilirubin, Total 0.3 mg/dL (Normal) Range: 0.0-1.2 Albumin, Serum 4.3 g/dL (Normal) Range: 3.6-4.8 Protein, Total, Serum 7.2 g/dL (Normal) Range: 6.0-8.5 :52 CALCIFEDIOL (24765) Comments: PATIENT WAS FASTINGPERFORMED BY: [employer] Mlpwod36[address] [facility] [id number] Vitamin D, 25-Hydroxy 13.8 ng/mL (Abnormal) Range: 30.0-100.0 Comments: Vitamin D deficiency has been defined by the [place] of[facility] and an Endocrine Society practice guideline as alevel of serum 25-OH vitamin D less than 20 ng/mL (1,2).The Endocrine Society went on to further define vitamin Dinsufficiency as a level between 21 and 29 ng/mL (2).1. IOM ([place] of Medicine). 2010. Dietary reference intakes for calcium and D. [place]: The National Academies Press.2. Azael MF, Leslee LEMON, Hillary PHILLIPS, et al. Evaluation, treatment, and prevention of vitamin D deficiency: an Endocrine Society clinical practice guideline. JCEM. 2010; 96(7):1911-30. 84-Cmx-126877:38 Blood Glucose , Office (28098) Blood Glucose , Office 114 (Normal) 20-Kjl-042692:38 HgA1C , Office (01729) HgA1C , Office 5.8 % (Normal) Range: 4.6 - 7.1 18-Bmt-556985:23 Urinalysis, Office (07634) UA - BILIRUBIN Negative (Normal) UA - BLOOD Hemolyzed Trace (Normal) UA - GLUCOSE Negative (Normal) UA - KETONES Negative mg/dL (Normal) UA - LEUKOCYTE ESTERASE Small (Normal) UA - NITRITE Negative (Normal) UA - PH 5.0 (Normal) UA - PROTEIN Negative mg/dL (Normal) UA - SPECIFIC GRAVITY 1.025 (Normal) URINE UROBILINGN SHARIFA TIMED Normal mg/dL (Normal) 18-Zdo-869567:50 Metabolic Panel, Basic Comments: PATIENT NOT FASTINGPERFORMED BY: Solve MediaSaint Peter's University HospitalGixjdd5475 [facility] [id number] Information: [id number] (17779) Calcium, Serum 9.9 mg/dL (Normal) Range: 8.6-10.2 [...] Glucose, Serum 84 mg/dL (Normal) Range: 65-99 90-Rqm-535572:39 BRAIN WITHOUT CONTRAST Radiology Report See Note [...] Sweeney M.D.July 12, 2013 at 4:19:02 PM [id number] Signed PV/PV If you are the referring physician and would like to consult with theradiologist who provided this interpretation, please contact Petrona molina M.D. at [phone]. If this radiologist is unavailable, youwillbe directed to another radiologist to assist. If you are a patient with a question regarding this report, pleasecontactyour referring physician directly. Professional Interpretation Provided By: Quarterly, Phone , These documents contain legally protected [...] 07/12/13 1622 Sign by: Petrona Meek MD 2-Gvs-085124:39 CRE GFRAA 45 mL/min (Abnormal) GFR 37 [...] 3000 mL (Normal) UPCT 24.0 {HOURS} (Normal) 6-Xyb-685828:39 Metabolic Panel, Basic Comments: recheck in one week; PATIENT NOT FASTINGPERFORMED BY: [place] 5558970 [facility] [id number] Information: [id number] (18614) Calcium, Serum 9.7 mg/dL (Normal) Range: 8.6-10.2 [...] Glucose, Serum 109 mg/dL (Abnormal) Range: 65-99 05-Fwi-57138:50 Metabolic Panel, Basic Comments: PATIENT NOT FASTINGPERFORMED BY: [facility] [facility] [id number] Information: [id number] (10061) Calcium, Serum 9.5 mg/dL (Normal) Range: 8.6-10.2 [...] (Abnormal) Range: 65-99 :29 HgA1C , Office (41714) HgA1C , Office 5.7 % (Normal) Range: 4.6 - 7.1 :14 TSH (90126) Comments: PATIENT NOT FASTINGPERFORMED BY: [facility] [facility] [id number] TSH 2.850 {uIU/mL} (Normal) Range: 0.450-4.500 :14 CBC, Platelets & Auto Comments: PATIENT NOT FASTINGPERFORMED BY: LabCoSaint Peter's University HospitalKujjwr6631 [facility] [id number] Information: [id number] Diff (86902) Immature Grans (Abs) 0.0 {x10E3/uL} (Normal) Range: [...] 3.77-5.28 WBC 7.5 {x10E3/uL} (Normal) Range: 4.0-10.5 49-Ygy-999846:14 Metabolic Panel, Comprehensive Comments: PATIENT NOT FASTINGPERFORMED BY: LabCoSaint Peter's University HospitalJkpagr4432 [facility] [id number] (74724) ALT (SGPT) 19 [iU]/L (Normal) Range: 0-32 [...] Glucose, Serum 105 mg/dL (Abnormal) Range: 65-99 30-Sjt-020867:06 URINE VERÓNICA CULTURE-SHARIFA COL Comments: PATIENT NOT FASTINGPERFORMED BY: [employer] Aitlpo2913 [facility] [id number] Information: SRC:UR ADD [id number] COUNT (08576) Antimicrobial MIHEAD (Normal) Comments: S = Susceptible; [...] mL (Normal) Urine Final report Culture,Comprehensive (Normal) 82-Byt-560843:09 Urinalysis, Office (39977) UA - BILIRUBIN Negative (Normal) UA - BLOOD Hemolyzed Moderate (Normal) UA - GLUCOSE Negative (Normal) UA - KETONES Negative mg/dL (Normal) UA - LEUKOCYTE ESTERASE Small (Normal) UA - NITRITE Negative (Normal) UA - PH 6.0 (Normal) UA - PROTEIN Negative mg/dL (Normal) UA - SPECIFIC GRAVITY 1.005 (Normal) URINE UROBILINGN SHARIFA TIMED 2 mg/dL (Normal) 2-Gqa-172828:04 Renal function Panel Comments: PATIENT NOT FASTINGPERFORMED BY: [employer] Ebhfdy7037 [facility] [id number] Information: [id number] (65859) Albumin, Serum 4.1 g/dL (Normal) Range: 3.6-4.8 [...] Glucose, Serum 110 mg/dL (Abnormal) Range: 65-99 68-Gnj-843038:22 CALCIFEDIOL (82630) Comments: PATIENT NOT FASTINGPERFORMED BY: [employer] Kdooit7254 [facility] [id number] Vitamin D, 25-Hydroxy 16.7 ng/mL (Abnormal) Range: 30.0-100.0 Comments: Vitamin D deficiency has been defined by the [place] ofMedicine and an Endocrine Society practice guideline as alevel of serum 25-OH vitamin D less than 20 ng/mL (1,2).The Endocrine Society went on to further define vitamin Dinsufficiency as a level between 21 and 29 ng/mL (2).1. IOM ([place] of Medicine). 2010. Dietary reference intakes for calcium and D. [place]: The National Academies Press.2. Azael MF, Leslee [place], Hillary PHILLIPS, et al. Evaluation, treatment, and prevention of vitamin D deficiency: an Endocrine Society clinical practice guideline. JCEM. 2010; 96(7):1911-30. :22 MAGNESIUM (92023) Comments: PATIENT NOT FASTINGPERFORMED BY: [employer] Mbjxrb6[address] [facility] [id number] Magnesium, Serum 2.3 mg/dL (Normal) Range: 1.6-2.6 :22 T4, FREE (THYROXINE) (87835) Comments: PATIENT NOT FASTINGPERFORMED BY: [employer] Zayyod44[address] [facility] [id number] T4,Free(Direct) 1.50 ng/dL (Normal) Range: 0.82-1.77 57-Rde-737060:22 T3, FREE (TRIDOTHYRONINE) (24020) Comments: PATIENT NOT FASTINGPERFORMED BY: [facility] [facility] [id number] Triiodothyronine,Free,Serum 2.6 pg/mL (Normal) Range: 2.0-4.4 52-Nqv-647488:22 TSH (45052) Comments: PATIENT NOT FASTINGPERFORMED BY: [facility] [facility] [id number] TSH 1.920 {uIU/mL} (Normal) Range: 0.450-4.500 31-Pxt-336542:22 CBC, Platelets & Auto Comments: PATIENT NOT FASTINGPERFORMED BY: [facility] [facility] [id number] Information: [id number] Diff (05537) Immature Grans (Abs) 0.0 {x10E3/uL} (Normal) Range: [...] PATIENT NOT FASTINGPERFORMED BY: LabCoSaint Peter's University HospitalGrqqen6374 [facility] [id number] (89388) ALT (SGPT) 21 [iU]/L (Normal) Range: 0-32 [...] Glucose, Serum 97 mg/dL (Normal) Range: 65-99 5-Ztf-041504:20 METABOLIC PANEL, COMPREHENSIVE Comments: PATIENT WAS FASTINGPERFORMED BY: [facility] [facility] [id number] (61379) ALT (SGPT) 19 [iU]/L (Normal) Range: 0-32 [...] Glucose, Serum 102 mg/dL (Abnormal) Range: 65-99 9-Ibu-312886:20 CBC WITH MANUAL DIFF Comments: PATIENT WAS FASTINGPERFORMED BY: [facility] [facility] [id number] Information: [id number] (66497) Immature Grans (Abs) 0.0 {x10E3/uL} (Normal) Range: [...] 3.77-5.28 WBC 7.4 {x10E3/uL} (Normal) Range: 3.4-10.8 6-Uul-821966:20 LIPID PANEL (47462) Comments: PATIENT WAS FASTINGPERFORMED BY: LabCoSaint Peter's University HospitalGolitl8993 [facility] [id number] LDL/HDL Ratio 2.0 {ratio_units} (Normal) Range: 0.0-3.2 LDL Cholesterol Calc 109 mg/dL (Abnormal) Range: 0-99 VLDL Cholesterol Hillary 35 mg/dL (Normal) Range: 5-40 HDL Cholesterol 54 mg/dL (Normal) Comments: According to ATP-III Guidelines, HDL-C >59 mg/dL is considered anegative risk factor for CHD. Triglycerides 175 mg/dL (Abnormal) Range: 0-149 Cholesterol, Total 198 mg/dL (Normal) Range: 100-199 5-Whl-787927:20 TSH (03646) Comments: PATIENT WAS FASTINGPERFORMED BY: LabCoSaint Peter's University HospitalAafnsd1123 [facility] [id number] TSH 2.720 {uIU/mL} (Normal) Range: 0.450-4.500 89-Nxu-756957:22 HgA1C , Office (73296) HgA1C , Office 6.0 % (Normal) Range: 4.6 - 7.1 36-Uin-271317:22 Blood Glucose , Office (91903) Blood Glucose , Office 249 (Normal) Comments: has eaten in last 2h 71-Cof-083535:20 CHEST, PA AND LATERAL Radiology Report See [...] Signed:Anibal Lan M.D.November 022012 at 8:14:34 AM [id number] Signed GP/GP If you are the referring physician and would like to consult with theradiologist who provided this interpretation, please contact Eliecer Bui M.D. at [phone]. If this radiologist is unavailable, youwill be directed to another radiologist to assist. If you are a patient with a question regarding this report, pleasecontactyour referring physician directly. Professional Interpretation Provided By: Quarterly, Phone , These documents contain legally protected [...] on 11/22/12817 Sign by: Anibal Lan MD 41-Blx-22998:19 VERÓNICA CULTURE-OTHER (72721) Comments: PATIENT NOT FASTINGPERFORMED BY: [employer] [facility]ill[facility] Vihlva37[address] [facility] [id number] Information: SRC:IVETTT [id number] Result 1 RRF (Normal) Comments: Routine respiratory duyen Upper Respiratory Culture Final report (Normal) 29-Zpk-603892:33 Rapid Strep Test, Office (64489) Rapid Strep Test, Office Negative (Normal) 9-Wrc-127854:50 Celiac Disease Comprehensive Comments: PERFORMED BY: WebCurfewlin[address] [facility] [id number] Immunoglobulin A, Qn, 364 mg/dL (Normal) Range: [...] Potassium, Serum 4.0 mmol/L Comments: PERFORMED BY: LabCoSaint Peter's University HospitalIrpvqh0063 [facility] [id number] 4:50 (Normal) Range: 3.5-5.2 4-Ewd-829507:30 CBCMD ANC 3.7 3/uL (Normal) Range: 2.0-7.7 [...] 7-18 GLU 93 mg/dL (Normal) Range: 70-110 1-Hnc-433776:30 LIPID LDL 108 mg/dL (Normal) Range: 0-130 [...] Very High > or = 500 mg/dL 6-Kpf-543182:30 MIACRE MIALB 5.8 mg/L (Normal) tMICROCREAT 9.5 {mg/g_CRE} (Normal) CREU 60.7 mg/dL (Normal) 0-Rtb-693660:30 TSH 0.75 {uIU/mL} (Normal) Range: 0.358-3.74 :54 HgA1C , Office (07620) HgA1C , Office 5.5 % (Normal) Range: 4.6 - 7.1 :54 Blood Glucose , Office (66231) Blood Glucose , Office 116 (Normal) 88-Tpr-635468:26 URINE VERÓNICA CULTURE-SHARIFA COL Comments: PATIENT NOT FASTINGPERFORMED BY: [facility] Hefihd5446 [place] StoutAffinity Health Partnersreinaldo [place] [id number] Information: SRC:UR [id number] COUNT (37075) Result 1 MUG (Normal) Comments: Mixed urogenital flora50,000-100,000 colony forming units per mL Urine Final report (Normal) Culture,Comprehensive 45-Fwi-702035:46 Urinalysis, Office (44372) UA - BILIRUBIN Small (Normal) UA - BLOOD Hemolyzed Small (Normal) UA - GLUCOSE Negative (Normal) UA - KETONES Small mg/dL (Normal) UA - LEUKOCYTE ESTERASE Moderate (Normal) UA - NITRITE Negative (Normal) UA - PH 6.0 (Normal) UA - PROTEIN Trace mg/dL (Normal) UA - SPECIFIC GRAVITY 1.025 (Normal) URINE UROBILINGN SHARIFA TIMED Normal mg/dL (Normal) 87-Qsu-236963:55 CHEST, PA AND LATERAL Radiology Report See [...] radiologist regarding this report, please call our 60X2aiulonl line @ Dictated on 1518 by Edyta PROCTOR,Isiahranscribed on 11/23/111610 by ITS IMPORTSign by Anibal Lan MD on 11/23/11 161 Sign by: Edyta PROCTOR,Anibal :51 Urinalysis, Office (97295) UA - BILIRUBIN Negative (Normal) UA - BLOOD Hemolyzed Small (Normal) UA - GLUCOSE Negative (Normal) UA - KETONES Negative mg/dL (Normal) UA - LEUKOCYTE ESTERASE Large (Normal) UA - NITRITE Negative (Normal) UA - PH 7.0 (Normal) UA - PROTEIN Negative mg/dL (Normal) UA - SPECIFIC GRAVITY 1.020 (Normal) URINE UROBILINGN SHARIFA TIMED 2 mg/dL (Normal) :51 HgA1C , Office (72048) HgA1C , Office 6.2 % (Normal) Range: 4.6 - 7.1 :50 Blood Glucose , Office (02760) Blood Glucose , Office 119 (Normal) :55 Urinalysis, Office (61639) UA - BILIRUBIN Negative (Normal) UA - [...] Ultrasound evaluation of the right upper quadrant [facility] with real-time ultrasonography and static grayscale [...] Muscle) 13 {Units} (Normal) Comments: PERFORMED BY: [employer] [place] [id number] :58 Antibody Range: 0-19 Comments: Negative 0 - 19 Weak positive 20 - 30 Moderate to strong positive >30 . Actin Antibodies are found in 52-85% of patients with autoimmune hepatitis or chronic active hepatitis and in 22% of patients with primary biliary cirrhosis. :58 Antinuclear Antibodies Direct Comments: PERFORMED BY: Buzzoek70 [facility] [id number] GAYATRI Direct Negative (Normal) :5 Ceruloplasmin 31.6 mg/dL (Normal) Comments: PERFORMED BY: [employer] [place] [id number] Range: 16.0-45.0 :5 Ferritin, Serum 440 ng/mL (Abnormal) Comments: PERFORMED BY: [employer] [place] [id number] Range: 13-150 :58 Hepatitis Panel (4) Comments: PERFORMED BY: Solve MediaSaint Peter's University HospitalRpphua2653 [facility] [id number] Hep C Virus Ab 0.1 {s/co_ratio} (Normal) [...] :58 Iron and TIBC Comments: PERFORMED BY: [employer] FetchDog [facility] [id number] Iron Saturation 37 % (Normal) Range: 15-55 Iron, Serum 96 ug/dL (Normal) Range: 35-155 UIBC 163 ug/dL (Normal) Range: 150-375 Iron Bind.Cap.(TIBC) 259 ug/dL (Normal) Range: 250-450 :58 Platelet Count on Citrated Comments: PERFORMED BY: [employer] Khscio0893 [facility] [id number] Bld Plt Count, Citrated Bld 216 {X10E3/uL} Range: 140-415 (Normal) 11-Jun-2011 Written Authorization WAR (Normal) Comments: PERFORMED BY: [facility] [facility] [id number] 9:58 Comments: Written Authorization Received.Authorization received from [facility] [id number] by Elina Swain :30 HgA1C , Office (18241) HgA1C , Office 6.7 % (Normal) Range: 4.6 - 7.1 :30 Blood Glucose , Office (69154) Blood Glucose , Office 159 (Normal) :15 METABOLIC PANEL, COMPREHENSIVE Comments: PATIENT WAS FASTINGPERFORMED BY: [facility] [facility] [id number] (69586) ALT (SGPT) 51 [iU]/L (Abnormal) Range: 0-40 [...] mg/dL (Abnormal) Range: 65-99 03-Jun-20119:15 LIPID PANEL (77546) Comments: PATIENT WAS FASTINGPERFORMED BY: LabCoSaint Peter's University HospitalIlwtki5670 [facility] [id number] LDL/HDL Ratio 1.8 {ratio_units} (Normal) Range: 0.0-3.2 [...] PATIENT WAS FASTINGPERFORMED BY: LabCoSaint Peter's University HospitalLouyzz7491 [facility] [id number] Information: [id number] (80898) Immature Grans (Abs) 0.0 {x10E3/uL} (Normal) Range: [...] Hepatic Function Panel (7) Comments: PERFORMED BY: Solve MediaSaint Peter's University HospitalOrqhje2773 [facility] [id number] ALT (SGPT) 63 [iU]/L (Abnormal) Range: 0-40 Alkaline Phosphatase, S 63 [iU]/L (Normal) Range: 25-165 AST (SGOT) 53 [iU]/L (Abnormal) Range: 0-40 Bilirubin, Direct 0.13 mg/dL (Normal) Range: 0.00-0.40 Bilirubin, Total 0.4 mg/dL (Normal) Range: 0.0-1.2 Albumin, Serum 4.5 g/dL (Normal) Range: 3.6-4.8 Protein, Total, Serum 7.8 g/dL (Normal) Range: 6.0-8.5 :26 Hepatitis Panel (4) Comments: PERFORMED BY: Solve MediaSaint Peter's University HospitalZntnzk6813 [facility] [id number] Hep C Virus Ab <0.1 {s/co_ratio} (Normal) [...] (Normal) Hep A Ab, IgM Negative (Normal) 6-Hgt-044157:04 LIVER D BILI 0.11 mg/dL (Normal) Range: 0.00-0.30 T BILI 0.30 mg/dL (Normal) Range: 0.00-1.00 ALK P 57 U/L (Normal) Range: 50-136 ALT 68 U/L (Normal) Range: 12-78 ALB 4.0 g/dL (Normal) Range: 3.4-5.0 AST 53 U/L (Abnormal) Range: 15-37 T PROT 8.0 g/dL (Normal) Range: 6.4-8.2 :59 HgA1C , Office (69339) HgA1C , Office 6.6 % (Normal) Range: 4.6 - 7.1 :59 Blood Glucose , Office (47645) Blood Glucose , Office 124 (Normal) :17 HgA1C , Office (57850) HgA1C , Office 6.4 % (Normal) Range: 4.6 - 7.1 :17 Blood Glucose , Office (23382) Blood Glucose , Office 141 (Normal) :17 Hemoglobin Glyclated (HGB A1C) Comments: PATIENT WAS FASTINGPERFORMED BY: [employer] [facility] [id number] (03959) Hemoglobin A1c 6.0 % (Abnormal) Range: 4.8-5.6 Comments: Increased risk for diabetes: 5.7 - 6.4 Diabetes: >6.4 Glycemic control for adults with diabetes: <7.0 :17 MICROALBUMIN: CREATININE RATIO Comments: PATIENT WAS FASTINGPERFORMED BY: [employer] [facility] [id number] (39854) AND (47521) Microalb/Creat Ratio 2.9 {mg/g_creat} (Normal) Range: 0.0-30.0 Creatinine, Urine 49.0 mg/dL (Normal) Range: 15.0-278.0 Microalbumin, Urine 1.4 ug/mL (Normal) Range: 0.0-17.0 :17 METABOLIC PANEL, COMPREHENSIVE Comments: PATIENT WAS FASTINGPERFORMED BY: [employer] [facility] [id number] (74437) Alkaline Phosphatase, S 61 [iU]/L (Normal) Range: [...] Glucose, Serum 116 mg/dL (Abnormal) Range: 65-99 66-Gyd-493274:17 LIPID PANEL (28356) Comments: PATIENT WAS FASTINGPERFORMED BY: LabCoSaint Peter's University HospitalCnecem0441 [facility] [id number] LDL/HDL Ratio 2.2 {ratio_units} (Normal) Range: 0.0-3.2 HDL Cholesterol 50 mg/dL (Normal) Comments: According to ATP-III Guidelines, HDL-C >59 mg/dL is considered anegative risk factor for CHD. LDL Cholesterol Calc 109 mg/dL (Abnormal) Range: 0-99 VLDL Cholesterol Hillary 56 mg/dL (Abnormal) Range: 5-40 Cholesterol, Total 215 mg/dL (Abnormal) Range: 100-199 Triglycerides 282 mg/dL (Abnormal) Range: 0-149 92-Dwg-729746:17 CBC WITH MANUAL DIFF (06847) Comments: PATIENT WAS FASTINGPERFORMED BY: [facility] Iirura5315 [facility] [id number] Immature Grans (Abs) 0.0 {x10E3/uL} (Normal) Range: [...] (Normal) Range: 4.0-10.5 :57 Folic Acid Serum (22198) Comments: PATIENT NOT FASTINGPERFORMED BY: [employer] Tnczql9184 [facility] [id number] Folate (Folic Acid), Serum 12.6 ng/mL (Normal) Comments: Indeterminate: 2.2 - 3.0Deficient: <2.2 :57 Vitamin B-12 (cyanocobalamin) Comments: PATIENT NOT FASTINGPERFORMED BY: [employer] Vmdane2879 [facility]PayR[facility] [id number] (02144) Vitamin B12 551 pg/mL (Normal) Range: 211-946 :57 CBC with manual diff Comments: PATIENT NOT FASTINGPERFORMED BY: [employer] Snxsvd4124 [facility] [id number] Information: [id number] (39579) Baso (Absolute) 0.1 {x10E3/uL} (Normal) Range: 0.0-0.2 [...] 3.80-5.10 WBC 9.4 {x10E3/uL} (Normal) Range: 4.0-10.5 68-Pnt-773630:57 Metabolic Panel, Comprehensive Comments: PATIENT NOT FASTINGPERFORMED BY: LabCoSaint Peter's University HospitalUecjwl8286 [facility] [id number] (20767) ALT (SGPT) 18 [iU]/L (Normal) Range: 0-40 [...] mg/dL (Abnormal) Range: 65-99 :57 DRUG ASSAY-LITHIUM (19491) Comments: PATIENT NOT FASTINGPERFORMED BY: [employer] [facility] Vipusi9459 [facility] [id number] Mcdougal (Eskalith), Serum 1.0 mmol/L (Normal) Range: 0.6-1.4 Comments: Detection Limit = 0.1<0.1 indicates None Detected :57 T4, FREE (THYROXINE) (47853) Comments: PATIENT NOT FASTINGPERFORMED BY: [facility] Xlxuaj4812 [facility] [id number] T4,Free(Direct) 1.17 ng/dL (Normal) Range: 0.82-1.77 :57 T3, FREE (TRIDOTHYRONINE) (04842) Comments: PATIENT NOT FASTINGPERFORMED BY: [employer] [facility] Zbtwme2264 [facility] [id number] Triiodothyronine,Free,Serum 2.1 pg/mL (Normal) Range: 2.0-4.4 :57 TSH (39670) Comments: PATIENT NOT FASTINGPERFORMED BY: [employer] [facility] Yfnwrl112[address] [facility] [id number] TSH 4.080 {uIU/mL} (Normal) Range: 0.450-4.500 :43 HgA1C , Office (29329) HgA1C , Office 5.3 % (Normal) Range: 4.6 - 7.1 :43 Blood Glucose , Office (81046) Blood Glucose , Office 125 (Normal) :4 [...] 136-145 GLU 84 mg/dL (Normal) Range: 70-110 69-Ytu-314159:42 LI 0.60 mmol/L (Normal) Comments: Therapeutic Range: 0.60 - 1.20 10-Hgb-802623:58 Thin prep Pap Comments: Source.............Cervical;EndocervicalNo. of containers..01 CYTYC Thin Prep VialPATIENT NOT FASTINGPERFORMED BY: [facility] [address] [id number] Information: [id number] (96573) Note: PAPSMR (Normal) Comments: The Pap smear [...] atrophy.V 72.31 ; Routine gynecological examinationRaxander Gonzalez Jewel Cupping Machine Operator (ASCP) 60-Ale-643597:00 TSH (56718) Comments: PATIENT NOT FASTINGPERFORMED BY: [facility] Pykcih2502 [facility] [id number] TSH 3.440 {uIU/mL} (Normal) Range: 0.450-4.500 79-Uwi-919266:00 CBC (Auto) (97422) Comments: PATIENT NOT FASTINGPERFORMED BY: [facility] [facility] [id number] Information: [id number] Platelets 258 {x10E3/uL} (Normal) Range: 140-415 RDW 13.6 % (Normal) Range: 11.7-15.0 Hematocrit 43.5 % (Normal) Range: 34.0-44.0 MCH 31.6 pg (Normal) Range: 27.0-34.0 MCHC 33.6 g/dL (Normal) Range: 32.0-36.0 MCV 94 fL (Normal) Range: 80-98 Hemoglobin 14.6 g/dL (Normal) Range: 11.5-15.0 RBC 4.61 {x10E6/uL} (Normal) Range: 3.80-5.10 WBC 8.6 {x10E3/uL} (Normal) Range: 4.0-10.5 [id number]-Fxd-[id number]:00 Metabolic Panel, Basic Comments: PATIENT NOT FASTINGPERFORMED BY: [facility] [facility] [id number] ([id number]) Calcium, Serum 9.1 mg/dL (Normal) Range: 8.6-10.2 [...] Glucose, Serum 111 mg/dL (Abnormal) Range: 65-99 10-Koe-476888:00 DRUG ASSAY-LITHIUM ([id number]) Comments: all these labs standing order prn; PATIENT NOT FASTINGPERFORMED BY: [facility]Qdnyps[address] [facility] [id number] Mcdougal (Eskalith), Serum 0.9 mmol/L (Normal) Range: 0.6-1.4 Comments: Detection Limit = 0.1<0.1 indicates None Detected 17-Ach-03023:16 METABOLIC PANEL, COMPREHENSIVE Comments: PATIENT NOT FASTINGPERFORMED BY: [facility] HospitalKryzfo[address] [facility] [id number] ([id number]) A/G Ratio 1.3 (Normal) Range: 1.1-2.5 Alkaline [...] Glucose, Serum 207 mg/dL (Abnormal) Range: 65-99 52-Ssj-80301:16 CBC WITH MANUAL DIFF Comments: PATIENT NOT FASTINGPERFORMED BY: [id number] [facility] [id number] Information: [id number] ([id number]) Baso (Absolute) 0.1 {x10E3/uL} (Normal) Range: 0.0-0.2 [...] CREATININE RATIO Comments: PATIENT NOT FASTINGPERFORMED BY: [place] [id number] [facility] [id number] ([id number]) AND (30324) Microalb/Creat Ratio 6.2 {mg/g_creat} (Normal) Range: 0.0-30.0 Microalbumin, Urine 2.5 ug/mL (Normal) Range: 0.0-17.0 Creatinine, Urine 40.1 mg/dL (Normal) Range: 15.0-278.0 :38 HgA1C , Office (82352) HgA1C , Office 6.6 % (Normal) Range: 4.6 - 7.1 :38 Blood Glucose , Office (37509) Blood Glucose , Office 214 (Normal) 47-Aip-941555:05 URINE VERÓNICA CULTURE-IDENTIFICATN Comments: PATIENT NOT FASTINGPERFORMED BY: [facility] [facility] [id number] Information: [id number] ([id number]) Antimicrobial MIHEAD (Normal) Comments: S = Susceptible; [...] mL (Normal) Urine Final report (Normal) Culture,Comprehensive 99-Xke-432913:23 CHEST, PA AND LATERAL (MT) Radiology Report See Note (Normal) Comments: Exam Number: [id number] CLINICAL:58-year-old female with cough, pain and shortness [...] otherwise unremarkable. Reported By: SISI MART Dr. 88-Wsv-19535:23 B.pertussisB.parapertussis PCR Comments: PERFORMED BY: ELIESER IrboHwt3259 [facility] [id number] Bordetella parapertussis DNA Negative (Normal) Comments: .This test was developed and its performance characteristics determinedby [employer]. It has not been cleared or approved by theU.S. Food and Drug Administration. The FDA has determined that s uchclearance or approval is not necessary. This test is used for clinicalpurposes. It should not be regarded as investigational or research. Bordetella pertussis DNA Negative (Normal) :50 HgA1C , Office (19310) HgA1C , Office 5.5 % (Normal) Range: 4.6 - 7.1 :50 Blood Glucose , Office (42614) Blood Glucose , Office 90 (Normal) :33 HgA1C , Office (61861) HgA1C , Office 5.6 % (Normal) Range: 4.6 - 7.1 :41 HgA1C , Office (45012) HgA1C , Office 5.5 % (Normal) Range: 4.6 - 7.1 Comments: :41 Blood Glucose , Office (69051) Comments: 89 Blood Glucose , Office 89 [...] (Normal) Range: 0.34-4.82 :42 HgA1C , Office (98572) HgA1C , Office 5.4 % (Normal) Range: 4.6 - 7.1 :42 Blood Glucose , Office (41756) Blood Glucose , Office 103 (Normal) :20 [...] T PROT 8.0 g/dL (Normal) Range: 6.4-8.2 87-Ojy-143704:20 LIPID CHOL 148 mg/dL (Normal) Comments: <200 [...] mg/dL VLDL 30 mg/dL (Normal) Range: 5-40 63-Aju-733417:20 ROUTINE UA BILIRUBIN URINE SeeNote (Normal) Comments: [...] 0.2 EU/dl (Normal) Range: 0.2 - 1.0 07-Mnj-60074:06 THYROID (HP) Radiology Report See Note (Normal) Comments: Exam Number: [id number] THYROID ULTRASOUND HISTORYGoiter. There is borderline increase [...] 03, 2007. Reported By: PETRONA REGALADO M.D. 26-Nhv-74793:20 MAMM, UILAT DIAG DIGITAL & CAD Radiology Report See Note (Normal) Comments: Exam Number: [id number] UNILATERAL LEFT DIAGNOSTIC MAMMOGRAPHY CLINICAL STATEMENTLeft breast [...] The mammogramswere also examined with computer-aided detection software([employer].). Reported By: REID KRUEGER M.D. : TSH 0.94 {uIU/mL} Range: 0.34-4.82 50 (Normal) :06 MAMM, BILAT SCRN DIGITAL & CAD Radiology Report See Note (Normal) Comments: Exam Number: [id number] MAMMOGRAM, BILATERAL SCREENING DIGITAL AND CAD HISTORYRoutine [...] mammograms werealso examined with computer-aided detection software ([employer] Reported By: PETRONA REGALADO M.D. :05 THYROID (HP) Radiology Report See Note (Normal) Comments: Exam Number: [id number] THYROID ULTRASOUND HISTORYGoiter. High resolution real time [...] 6 months. Reported By: PETRONA REGALADO M.D. 73-Jru-933120:22 HgA1C , Office (26279) HgA1C , Office 5.9 % (Normal) Range: 4.6 - 7.1 66-Cpb-585320:22 Blood Glucose , Office (33585) Blood Glucose , Office 88 (Normal) Plan [...] II, controlled Stress incontinence, female : Reviewed [employer] Letter Indication: Stress incontinence, female Diabetes mellitus [...] acute Planned Observations VITAMIN B12 AND FOLATES (64020)Indication: Neuropathic pain On: :08 Request Blood Glucose , Office (47622)Indication: Diabetes mellitus type II, controlled On: :04 Request LIPID PANEL (52998)Indication: Neuropathic pain On: 15-Xpe-45378:54 Request Blood Glucose , Office (94679)Indication: Diabetes mellitus type II, controlled On: 02-Nov-20178:55 Request D-Dimer (87423)Indication: Shortness of breath On: 52-Kjy-353419:19 Request Metabolic Panel, Comprehensive (44103)Indication: Diabetes mellitus type II, controlled On: 60-Hsu-221665:19 Request Comments: Nov 2017 LIPID PANEL (45406)Indication: Diabetes mellitus type II, controlled On: 48-Let-074692:19 Request Comments: Nov 2017 URINALYSIS (13322)Indication: Diabetes mellitus type II, controlled On: :19 Request Comments: Nov 2017 TSH (87146)Indication: Diabetes mellitus type II, controlled On: 93-Ift-395742:18 Request Comments: Nov 2017 CBC, Platelets & Auto Diff (01276)Indication: Diabetes mellitus type II, controlled On: 87-Qlv-104078:18 Request Comments: Nov 2017 MICROALBUMIN: CREATININE RATIO (20607) AND (04925)Indication: Diabetes mellitus type II, controlled On: 20-Fim-745993:18 Request Comments: Nov 2017 HgA1C , Office (38019)Indication: Diabetes mellitus type II, controlled On: 65-Wjb-385864:44 Request Anaerobic & Aerobic Culture (88685)Indication: Mouth pain On: 3-Nes-957117:11 Request Metabolic Panel, Comprehensive (30657)Indication: Chronic kidney disease (CKD), stage I On: 92-Ixd-279792:50 Request Comments: 2 weeks Metabolic Panel, Comprehensive (34573)Indication: Diabetes mellitus type II, controlled On: 91-Keu-187199:56 Request Comments: today URINALYSIS (58990)Indication: Chronic kidney disease (CKD), stage I On: 88-Eye-025156:52 Request Comments: Jul 2017 MICROALBUMIN: CREATININE RATIO (09414) AND (73247)Indication: Chronic kidney disease (CKD), stage I On: 61-Eyk-512647:52 Request Comments: jul 2017 Lipid Panel (14563)Indication: Hypertension (Renamed from BP (high blood pressure)) On: 03-Qzl-107545:52 Request Comments: Jul 2017 TSH (52034)Indication: Leg weakness On: 01-Nun-888304:52 Request Comments: Jul 2017 CBC, Platelets & Auto Diff (33437)Indication: Leg weakness On: 18-Ktc-809410:52 Request Comments: jul 2017 METABOLIC PANEL, COMPREHENSIVE (01533)Indication: Weakness On: 28-Hdt-883172:55 Request METABOLIC PANEL, COMPREHENSIVE (48016)Indication: Hypokalemia On: 49-Pma-44011:43 Request Comments: STAT SED RATE ERYTHROCYTE (38450)Indication: Weakness On: 00-Gar-398403:29 Request TSH (THYROID STIMULATING HORMONE) (82307)Indication: Unspecified abnormal involuntary movements On: 51-Muj-082884:17 Request METABOLIC PANEL, COMPREHENSIVE (52116)Indication: Unspecified abnormal involuntary movements On: 07-Wpk-769462:17 Request CBC, PLATELETS & AUT DIFF (30064)Indication: Unspecified abnormal involuntary movements On: 41-Kzp-527245:17 Request URINE VERÓNICA CULTURE-IDENTIFICATN (63358)Indication: Weakness On: 51-Eyy-780759:07 Request Blood Glucose , Office (14064)Indication: Unspecified abnormal involuntary movements On: 87-Vmw-08354:59 Request VITAMIN B12 AND FOLATES (21591)Indication: Unspecified abnormal involuntary movements On: :57 Request SPEP (69409)Indication: Elevated serum creatinine On: 27-Jsi-583083:31 Request CALCIFIDIOL (87453) VIT D 25Indication: Vitamin D deficiency (Renamed from Avitaminosis D) On: : Request TSH (45890)Indication: Hypothyroidism On: : Request MICROALBUMIN: CREATININE RATIO (39446) AND (92030)Indication: Diabetes mellitus type II, controlled On: : Request METABOLIC PANEL, COMPREHENSIVE (59694)Indication: Diabetes mellitus type II, controlled On: : Request LIPID PANEL (50924)Indication: Diabetes mellitus type II, controlled On: : Request CBC with auto diff (57614)Indication: Diabetes mellitus type II, controlled On: : Request CALCIFIDIOL (19271) VIT D 25Indication: Vitamin D deficiency (Renamed from Avitaminosis D) On: 69-Zbx-973270:15 Request Comments: in three months (approximately) METABOLIC PANEL, COMPREHENSIVE (51172)Indication: Diabetes mellitus type II, controlled On: 10-Wtx-158864:15 Request Comments: in three months (approximately) SODIUM URINE (39406)Indication: Hyponatremia On: 3-Gyn-332863:51 Request OSMOLALITY URINE (64566)Indication: Hyponatremia On: 3-Kxe-879053:50 Request OSMOLALITY BLOOD (71290)Indication: Hyponatremia On: 5-Iim-606582:50 Request ASSAY, TROPONIN, QUANTITATIVE (aka Troponin I) (88866)Indication: Chest pain On: 45-Fuv-046057:40 Request Comments: stat D-Dimer (44409)Indication: Chest pain On: 23-Hny-559177:40 Request Comments: stat TSH (90578)Indication: Chest pain On: :40 Request CBC WITH MANUAL DIFF (23280)Indication: Chest pain On: :40 Request METABOLIC PANEL, COMPREHENSIVE (30282)Indication: Chest pain On: 99-Kii-538288:40 Request URINE VERÓNICA CULTURE (SHARIFA COL COUNT) (27016)Indication: Dysuria (Renamed from Difficult or painful urination) On: 68-Ygn-364440:24 Request Metabolic Panel, Comprehensive (17420)Indication: Hypertension (Renamed from BP (high blood pressure)) On: 22-Evq-014780:56 Request Metabolic Panel, Basic (65694)Indication: Elevated LFTs On: 51-Vvk-984493:16 Request 24 hour urine for Protein (09039)Indication: Elevated serum creatinine On: 42-Zjd-787790:40 Request Comments: recheck in one week CREATININE CLEARANCE (05274)Indication: Elevated serum creatinine On: 24-Qkc-167440:39 Request Comments: recheck in one week Blood Glucose , Office (33109)Indication: Diabetes mellitus type II, controlled On: 84-Roq-52248:29 Request METABOLIC PANEL, COMPREHENSIVE (84492)Indication: Hypokalemia (Renamed from Decreased potassium in the blood) On: 90-Fvb-541698:52 Request MICROALBUMIN: CREATININE RATIO (05723) AND (05587)Indication: Diabetes mellitus type II, controlled On: 89-Ahm-516144:14 Request FLURESCNT ANTIB SCRN EA (47113) celiac profileIndication: Irritable bowel syndrome (Renamed from Functional bowel disease) On: 9-Ary-691398:58 Request IMMUNOASSAY, ANALYTE (NON-INFECT) (04368) celiac profileIndication: Irritable bowel syndrome (Renamed from Functional bowel disease) On: 2-Ezl-390969:58 Request IGA/IGD/IGG/IGM-EACH (47864) celiac profileIndication: Irritable bowel syndrome (Renamed from Functional bowel disease) On: 7-Pwl-000223:58 Request Potassium Serum (62043)Indication: Hypokalemia (Renamed from Decreased potassium in the blood) On: 0-Vwn-848254:58 Request Celiac Disease Comphrehensive Profile (81559)Indication: Irritable bowel syndrome (Renamed from Functional bowel disease) On: 04-Nov-20129:56 Request METABOLIC PANEL, COMPREHENSIVE (99051)Indication: Diabetes mellitus type II, controlled On: 05-Fni-984611:32 Request LIPID PANEL (13093)Indication: Diabetes mellitus type II, controlled On: 31-Asn-387853:32 Request CBC WITH MANUAL DIFF (72341)Indication: Diabetes mellitus type II, controlled On: 89-Nsi-400847:32 Request MICROALBUMIN: CREATININE RATIO (05708) AND (47363)Indication: Diabetes mellitus type II, controlled On: :32 Request TSH (77392)Indication: Hypothyroidism On: : Request TSH (99268)Indication: Hypothyroidism On: : Request MICROALBUMIN: CREATININE RATIO (42445) AND (28835)Indication: Diabetes mellitus type II, controlled On: : Request METABOLIC PANEL, COMPREHENSIVE (00569)Indication: Diabetes mellitus type II, controlled On: : Request LIPID PANEL (61216)Indication: Diabetes mellitus type II, controlled On: : Request CBC WITH MANUAL DIFF (60583)Indication: Diabetes mellitus type II, controlled On: : Request URINE VERÓNICA CULTURE-SHARIFA COL COUNT (58458)Indication: Dysuria (Renamed from Difficult or painful urination) On: 38-Jgj-145196:15 Request URINE VERÓNICA CULTURE-SHARIFA COL COUNT (60639)Indication: Dysuria (Renamed from Difficult or painful urination) On: 35-Uxr-812427:55 Request Ferritin (23580)Indication: Elevated LFTs On: 13-Eht-442389:50 Request Comments: repeat now per Dr. Cabral with iron level Iron Binding Capacity (TIBC) (77893)Indication: Elevated LFTs On: 34-Hza-204154:50 Request Iron (25908)Indication: Elevated LFTs On: 31-Qqi-011471:49 Request CBC (Auto) (72904)Indication: Thrombocytopenia, unspecified On: : Request Comments: nonclumping tube HEPATITIS PANEL (38840)Indication: Elevated LFTs On: : Request FERRITIN (94561)Indication: Elevated LFTs On: :00 Request CERULOPLASMIN (89351)Indication: Elevated LFTs On: :00 Request ASM (ANTI SMOOTH MUSCLE ANTIBODY) (98190)Indication: Elevated LFTs On: :00 Request GAYATRI (ANTINUCLEAR ANTIBODY) (66138)Indication: Elevated LFTs On: 40-Fyg-855219:00 Request HEPATITIS PANEL (99772)Indication: Elevated LFTs On: 06-Mtu-08059:01 Request TSH (93802)Indication: Hypothyroidism On: 35-Jmz-215728:16 Request LIPID PANEL (12050)Indication: Diabetes mellitus type II, controlled On: 55-Nvz-088516:15 Request DRUG ASSAY-LITHIUM (65707)Indication: Bipolar affective disorder, mixed On: 02-Ibf-829250:14 Request Metabolic Panel, Basic (57600)Indication: Bipolar affective disorder, mixed On: 87-Ogo-499746:13 Request Metabolic Panel, Basic (40676)Indication: Bipolar affective disorder, mixed On: 09-Hfv-297118:22 Request DRUG ASSAY-LITHIUM (61238)Indication: Bipolar affective disorder, mixed On: :22 Request Comments: 2 months Urinalysis, Office (34882)Indication: Urinary frequency On: 07-Csh-656037:27 Request Comments: done pms HEPATIC FUNCTION PANEL (26509)Indication: Other and unspecified hyperlipidemia On: 5-Hiw-160680:45 Request Lipid Panel (50417)Indication: Other and unspecified hyperlipidemia On: 2-Adj-979424:45 Request Lipid Panel (59593)Indication: Other and unspecified hyperlipidemia On: 10-Arh-796488:17 Request CBC, Platelets & Auto Diff (81104)Indication: Other and unspecified hyperlipidemia On: 66-Jel-401556:17 Request Metabolic Panel, Comprehensive (91243)Indication: Other and unspecified hyperlipidemia On: 56-Drw-060443:17 Request TSH (17729)Indication: Hypothyroidism On: 47-Zey-432920:15 Request Metabolic Panel, Basic (17296)Indication: Other and unspecified hyperlipidemia On: :55 Request Lipid Panel (64445)Indication: Other and unspecified hyperlipidemia On: :55 Request Comments: in three months (approximately) CBC (Auto) (86825)Indication: Intestinal disaccharidase deficiencies and disaccharide malabsorption On: :56 Request Metabolic Panel, Comprehensive (90945)Indication: Intestinal disaccharidase deficiencies and disaccharide malabsorption On: :56 Request Lipid Panel (53949)Indication: Intestinal disaccharidase deficiencies and disaccharide malabsorption On: :56 Request Comments: in three months (approximately) MICROALBUMIN 24 HOUR OR RANDOM On: 83-Tzq-079859:04 Request (22885) CREATININE CLEARANCE (68618) On: 69-Wiy-811670:03 Request CBC (Auto) (74745)Indication: Unspecified disorder of kidney and ureter On: 43-Hiv-92624:53 Request Lipid Panel (08427)Indication: Unspecified disorder of kidney and ureter On: :53 Request Metabolic Panel, Comprehensive (33290)Indication: Unspecified disorder of kidney and ureter On: :53 Request TSH (58665)Indication: Hypothyroidism On: :53 Request TSH (75272)Indication: Hypothyroidism On: 70-Zca-576437:18 Request URINALYSIS (35259)Indication: Intestinal disaccharidase deficiencies and disaccharide malabsorption On: 69-Bqk-397497:43 Request CBC (Auto) (21943)Indication: Intestinal disaccharidase deficiencies and disaccharide malabsorption On: 44-Cqz-710660:43 Request Lipid Panel (10672)Indication: Intestinal disaccharidase deficiencies and disaccharide malabsorption On: 73-Hhc-359821:43 Request Metabolic Panel, Comprehensive (57388)Indication: Intestinal disaccharidase deficiencies and disaccharide malabsorption On: 78-Oqn-292752:43 Request Planned Procedures COMPUTED TOMOGRAPHY ANGIOGRAPHY OF On: 01-Aug-2018 Intent CHEST FOR PULMONARY EMBOLISM Comments: stat for PE (16884)By: Eli Bowman CNP, CNP, Mary E Echo CompleteBy: Eli Bowman CNP On: 29-Jul-2018 Intent Eil Bowman CNP Spirometry (19709)By: Colby WATTERS, On: 29-Jul-2018 Intent Eli Mcelroy CNP Holter Monitor 24 hrsBy: Colby WATTERS, On: 29-Jul-2018 Intent Eli Mcelroy CNP CHEST XRAY, PA & LATERAL (73040)By: On: 29-Jul-2018 Intent Eli Bowman CNP, CNP, Mary E ELECTROCARDIOGRAM, COMPLETE (ECG) On: 29-Jul-2018 Intent (86672)By: Eli Bowman CNP Comments: sinus rhythm Eli WATTERS Aerosol Treatment (86207)By: Colby On: 29-Jul-2018 Intent Eli WATTERS CNP, Mary E Flu Vaccine (Quadrivalent) 77100Ws: On: 22-Jul-2018 Intent Tejal Ceron Comments: Lot #[id number]-L dltd, IMDose prefilled syringegiven by: Rosalie Ceron MA Toradol Injection, 30 mg (J1885)By: On: 09-May-2018 Intent Nunu Root Comments: lot [id number] 12/2029mgIMleft gmas, GOLD ASSAYER SCREENING DIGITAL TOMOSYNTHESIS OF On: 18-Apr-2018 Intent BREAST (33997)By: Colby WATTERS Eli Bowman JANENEEli DEXA SCAN AXIAL SKELETON (66057)By: On: 18-Apr-2018 Intent Colby WATTERS Eli Mcelroy CNP Toradol Injection, 30 mg (J1885)By: On: 22-Mar-2018 Intent Nunu Root Comments: toradol 30mg injection lot:57-755-HZiaw:10/2019R GMpt tolerated wellMSMITH,GOLD ASSAYER COMPLETE ELECTROMYOGRAPHY (EMG) WITH On: 22-Mar-2018 Intent NERVE CONDUCTION STUDIES OF EACH Comments: Bilateral lower legs EXTREMITY (28917)By: Nunu Root EMGBy: Colby WATTERS Eli Lubin Lisajanna JANENE, On: 03-Jan-2018 Intent Eli Lubin Comments: both legs Nerve ConductionBy: Colby WATTERS Eli On: 03-Jan-2018 Intent Amee Gonzalezmitchsilvano WATTERS Eli Lubin Comments: both legs Toradol Injection, 30 mg (J1885)By: On: 23-Dec-2017 Intent Mayda Dobbins DO Comments: toradol 30mg injectionlot: 72-515-[id number]: 06/2018L GMpt tolerated wellAD GOLD ASSAYER Spirometry (05350)By: Dk On: 16-Nov-2017 Intent Nunu Comments: Normal spirometry Aerosol Treatment (71681)By: Shilpi On: 30-Aug-2017 Mayda Bailey DO Comments: less noise with forced exp Solu- Medrol Injection, 125mg On: 30-Aug-2017 Intent (J2930)By: Mayda Dobbins DO Comments: solumedrol 125mg injectionlot: [id number]: 12/2019R GMpt tolerated wellAD GOLD ASSAYER Radiology - Chest- PA and LatBy: On: 30-Aug-2017 Intent Mayda Dobbins DO Solu- Medrol Injection, 125mg On: 26-Aug-2017 Intent (J2930)By: Mayda Dobbins DO Comments: solumedrol 125mg injectionlot: [id number]: 12/2019L GMpt tolerated wellAD GOLD ASSAYER Aerosol Treatment (41128)By: Shilpi On: 26-Aug-2017 Intent Mayda COLEMAN Comments: [place] Spirometry (02317)By: Shilpi COLEMAN, On: 26-Aug-2017 Intent Mayda Comments: mild obstruction Radiology - Shoulder - RightBy: On: 20-Jul-2017 Intent Edita Cabral MD Radiology - Lumbar SpineBy: Misha On: 20-Jul-2017 Intent Edita PROCTOR DRAIN/INJECT MAJOR JOINT OR BURSA On: 13-Apr-2017 Intent (67658)By: Eli Bowman CNP Comments: injevted left knee today Eli WATTERS PHYSICAL THERAPY (00745)By: Dk On: 08-Apr-2017 Intent Nunu Radiology - Knee - RightBy: Dk On: 08-Apr-2017 Intent Nunu Radiology - Knee - LeftBy: Dk, On: 08-Apr-2017 Intent Nunu ATTENDED SLEEP STUDY (34358)By: On: 18-Jan-2017 Intent Eli Bowman CNP, CNP, Mary E DEXA SCAN AXIAL SKELETON (38614)By: On: 24-Nov-2016 Intent Donnie Gonzales MD MAMMOGRAM, SCREENING, BOTH BREAST On: 24-Nov-2016 Intent (47590)By: Donnie Gonzales MD US KIDNEY COMPLETE (40839)By: Janet On: 16-Jul-2016 Intent Donnie PROCTOR EsophagramBy: Edita Cabral MD On: 06-Feb-2016 Intent Comments: 12mm tablet X-RAY EXAM OF ESOPHAGUS (43139) - On: 04-Feb-2016 Intent Barium Swallow with 12mm tabletBy: Donnie Gonzales MD Carotid DopplerBy: Edita Cabral MD On: 16-Sep-2015 Intent Oz TD VACCINE ADULT (36067)By: Misha On: 16-Sep-2015 Intent Edita PROCTOR TDAP VACCINE >7 IM (94980)By: On: 16-Sep-2015 Intent Edita Cabral MD Pap Smear, Medicare (Q0091)By: On: 16-Sep-2015 Intent Edita Cabral MD MAMMOGRAM, SCREENING, BOTH BREAST On: 16-Sep-2015 Intent (70227)By: Edita Cabral MD Renal Artery DopplerBy: Misha PROCTOR, On: 04-Feb-2015 Intent Edita Clinton Ultrasound - RenalBy: Misha PROCTOR, On: 04-Feb-2015 Intent Edita Clinton DEXA SCAN AXIAL SKELETON (47036)By: On: 17-Jan-2015 Intent Edita Cabral MD Comments: postmenapausal MAMMOGRAM, SCREENING, BOTH BREAST On: 17-Jan-2015 Intent (08841)By: Edita Cabral MD Radiology - Shoulder - [...] with back pain- stat call results Spirometry (54267)By: Thee COLEMAN, On: 30-Apr-2014 Intent Erna Schaefer Comments: good effort and curve normal ELECTROCARDIOGRAM, COMPLETE (ECG) On: 30-Apr-2014 Intent (28196)By: Erna Kingston DO Eprescribed prescriptions (G8553)By: On: 12-Feb-2014 Intent Edita Cabral MD SPECIMEN HANDLING/TRANSPORT On: 15-Jan-2014 Intent (40435)By: Eli Bowman CNP, CNP, Mary E Eprescribed prescriptions (G8553)By: On: 11-Oct-2013 Intent Nunu Stephens LPN ADMINISTRATION OF INFLUENZA VIRUS On: 24-Jul-2013 Intent VACCINE (G0008)By: Edita Cabral MD FLU VAC, SPLIT, >3 YEARS, INTRAMUSC On: 24-Jul-2013 Intent (84973)By: Edita Cabral MD Echo CompleteBy: Edita Cabral MD On: 27-Jun-2013 Intent Carotid DopplerBy: Edita Cabral MD On: 27-Jun-2013 Intent M Eprescribed prescriptions (G8553)By: On: 27-Jun-2013 Intent Teressa Molina LPN MRI - BrainBy: Eli Bowman CNP On: 16-Jun-2013 Intent Eli Bowman CNP SPECIMEN HANDLING/TRANSPORT On: 16-May-2013 Intent (96909)By: Sue Ewing LPN Holter Monitor 24 hrsBy: Colby WATTERS, On: 28-Apr-2013 Intent Eli Mcelroy CNP ELECTROCARDIOGRAM, COMPLETE (ECG) On: 28-Apr-2013 Intent (06273)By: Eli Bowman CNP Comments: sinus bradycardia Eli WATTERS Bio Z (06696)By: Eli Bowman CNP On: 28-Apr-2013 Intent Eli Bowman CNP EKG (54014)By: Edita Cabral MD On: 28-Mar-2013 Intent Comments: see scanned document of test done to see results reviewed today with patient Eprescribed prescriptions (G8553)By: On: 28-Mar-2013 Intent Teressa Molina LPN L Eprescribed prescriptions (G8553)By: On: 08-Dec-2012 Intent Nunu Stephens LPN Spirometry (36628)By: Shilpi COLEMAN, On: 25-Nov-2012 Intent Mayda Comments: Computer not running so not able to perform test Aerosol Treatment (92635)By: Shilpi On: 25-Nov-2012 Mayda Bailey DO Spirometry (77949)By: Thee COLEMAN, On: 21-Nov-2012 Intent Erna A Comments: good effort and curve normal Radiology - Chest- PA and LatBy: On: 21-Nov-2012 Intent Erna Kingston DO Eprescribed prescriptions (G8553)By: On: 21-Nov-2012 Intent Makayla Dillard LPN ADMINISTRATION OF PNEUMOCOCCAL On: 31-Oct-2012 Intent VACCINE (G0009)By: Edita Cabral MD Comments: Lot #[id number]/19/14Site-right deltoidDose0.5mlgiven by: [facility] per fax. M PNEUM VAC ADLT/IMUMNOSPR, SBC/INTRM On: 31-Oct-2012 Intent (63992)By: Jodi Carvalho LPNcribed prescriptions (G8553)By: On: 18-Oct-2012 Intent Teressa Molina LPN FLU VAC, SPLIT, >3 YEARS, INTRAMUSC On: 01-Jul-2012 Intent (02572)By: Eli Bowman CNP Comments: Lot:[id number]:6.13Amt:prefilled syringeSite: L Dltd, IMGiven by: MARISA Torres CNP, Mary E ADMINISTRATION OF INFLUENZA VIRUS On: 01-Jul-2012 Intent VACCINE (G0008)By: Eli Bowman CNP, CNP, Mary E SPECIMEN HANDLING/TRANSPORT On: 01-Jul-2012 Intent (32601)By: Sue Ewing LPN Solu -Medrol Injection, 125 mg On: 23-Nov-2011 Intent (J2930)By: Edita Cabral MD Comments: Lot [id number]-R hip, IMDose 125mggiven by:Teressa Radiology - ChestBy: Misha PROCTOR, On: 23-Nov-2011 Intent Edita Clinton Comments: wet read Pulse Oximetry (86057)By: Benoit On: 23-Nov-2011 Intent AKBAR Aerosol Treatment (38597)By: Colby On: 16-Nov-2011 Intent Eli WATTERS CNP Elif Pulse Oximetry (69465)By: Vin, On: 16-Nov-2011 Intent Lynn Comments: 93 FLU VAC, SPLIT, >3 YEARS, INTRAMUSC On: 16-Nov-2011 Intent (68985)By: Lynn Banuelos Comments: received at work SPECIMEN HANDLING/TRANSPORT On: 14-Sep-2011 Intent (73733)By: Edita Cabral MD SPECIMEN HANDLING/TRANSPORT On: 26-Aug-2011 Intent (91366)By: Sue Ewing LPN Ultrasound - LiverBy: Misha PROCTOR, On: 11-Jun-2011 Intent Edita Clinton EKG (01723)By: Edita Cabral MD On: 16-Feb-2011 Intent MAMMOGRAM, SCREENING, BOTH BREASTS On: 13-Mar-2010 Intent (53546)By: Edita Cabral MD MAMMOGRAM, SCREENING, BOTH BREASTS On: 06-Mar-2010 Intent (80770)By: Edita Cabral MD MAMMOGRAM, SCREENING, BOTH BREASTS On: 13-Feb-2010 Intent (56158)By: Edita Cabral MD Spirometry (60132)By: Misha PROCTOR, On: 01-Oct-2009 Intent Edita Clinton ELECTROCARDIOGRAM, COMPLETE (ECG) On: 01-Oct-2009 Intent ([id number])By: Edita Cabral MD Pulse Oximetry ([id number])By: Benoit On: 01-Oct-2009 Intent AKBAR Spirometry ([id number])By: Thee COLEMAN, On: 30-Jul-2009 Intent Erna Schaefer Comments: good effort and curve normal Radiology - Chest- PA and LatBy: On: 30-Jul-2009 Intent Erna Kingston DO Pulse Oximetry ([id number])By: Vin, On: 30-Jul-2009 Intent Lynn Comments: 94%repeat 97-98 EKG ([id number])By: Erna Kingston DO On: 14-Jul-2009 Intent Comments: ekg showed normal sinus rhythym, normal axis, no acute st/t wave changes old t wave inversion noted on previous ekg Pulse Oximetry ([id number])By: Vin, On: 11-Jul-2009 Intent Lynn Comments: 97% Solu -Medrol Injection, 125 mg On: 09-Jul-2009 Intent ([id number])By: Erna Kingston DO Comments: Lot #:[id number] date:mount given:125mgRoute:IM Site given:left buttockGiven by: MARIA DOLORES Cordon Aerosol Treatment ([id number])By: Thee On: 09-Jul-2009 Erna Bailey DO Pulse Oximetry ([id number])By: Thee COLEMAN, On: 09-Jul-2009 Intent Erna Schaefer Comments: repeat after treatment was 96 Pulse Oximetry ([id number])By: Vin On: 09-Jul-2009 Intent Lynn Comments: 93% Spirometry ([id number])By: Gildardo SOUSA, On: 25-Jan-2009 Intent Sue MAMMOGRAM, SCREENING, BOTH BREASTS On: 29-May-2008 Intent ([id number])By: Edita Cabral MD EKG ([id number])By: Edita Cabral MD On: 29-May-2008 Intent Spirometry ([id number])By: Misha PROCTOR, On: 27-Dec-2007 Intent Edita Clinton Ultrasound - ThyroidBy: Misha PROCTOR, On: 22-Mar-2007 Intent Edita Clinton MAMMOGRAM, SCREENING, BOTH BREASTS On: 22-Mar-2007 Intent ([id number])By: Edita Cabral MD MAMMOGRAM, SCREENING, BOTH BREASTS On: 22-Mar-2007 Intent ([id number])By: Edita Cabral MD ELECTROCARDIOGRAM, COMPLETE (ECG) On: 22-Mar-2007 Intent ([id number])By: Edita Cabral MD Planned Medications INJECTION, KETOROLAC [...] disease, bilateral : DISCONTINUED - POTASSIUM SERUM (45915) Indication: Active Meniere's disease, bilateral Elevated LFTs : DISCONTINUED - HEPATIC FUNCTION PANEL (88146) Indication: Elevated LFTs Diabetes mellitus type II, [...] reveiwing printed for pt to take to [facility] , [ADDITIONAL REASON] Weight Gain [...] care, told to go to ER at [facility] diagnosed with Esophagitis was given pepcid [...] occurred following a specific injury (lifting at [employer] for years but no fall). The injury [...] in bathroom. The patient has completed the [facility] preventative measures: PAP smear (needs updated ), mammography (needs updated ) and colonoscopy (needs updated however patient refuse to have done bc she was hospitalized with the last one with infection for 5 days ). 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 The patient has noticed [...] for Tdap vaccination (Renamed from Need for brejlgfcpn-tuxlvdq-[id number] (Tdap) vaccine, adult/adolescent), Goiter (Renamed from [place] [...] (240.9), Hypothyroidism(244.9) [facility] Payers [employer] Lilly Toro; a guarantor
--- OUTSIDE RECORDS SUMMARY | 2018-11-25 15:12 | XMS RPT_ITS | Continuity of Care Document ---
:1950 Author Organization [facility] Address [address] [place] [address] Phone Care Team Providers Name Role Phone Colby JANENEEli E Unavailable Mina Baer MD Unavailable Nhung Duval Unavailable Merged with [facility] Unavailable Kasi Scott Unavailable Mariia Zhang [...] extensive review with nurse and [facility], med list updated Status: Active Postmenopausal (Renamed from Postmenopausal status) (Z78.0, V49.81) Status: Active Pregnancies () Comments: 2 Status: Active S/P hysterectomy (Z90.710, V88.01) Comments: for endometrial hyperplasia 2015 Status: Active Shortness of breath (R06.02, 786.05) Status: Active Sleep apnea (G47.30, 780.57) Comments: needs repeat sleep study at [facility] to get back on cpap Status: [...] Caitlin Delaney Start : 29-Jul-2018 Active Ergocalciferol 17586 UNIT Oral Capsule 1 Capsule twice weekly [...] tablet daily (15 MG) Active Comments:Catrachito Pen Fleming /16 31G X 5 MM Miscellaneous 1 [...] Quantity: 45 {Tablet} Refills: 1 Ordered:12-Oct-2017 Mo 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Naomi Watts Start : 13-Oct-2016 End : 12-Oct-2017 Inactive AUGMENTIN, 875-125MG (Oral Tablet) 1 (one) Tablet bid for 14 days Quantity: 28 {Tablet} Refills: 0 Ordered:06-Jan-2016 Lisamitcha APPOINTMENT MANAGER, Eli Mejiaa APPOINTMENT MANAGER, Elif Start : 06-Jan-2016 End : 20-Jan-2016 Inactive AZITHROMYCIN, 250MG (Oral Tablet) 2 (two) Tablet today then 1 qd for 4 days for 0 days Quantity: 6 {Tablet} Refills: 0 Ordered:08-Dec-2012 Nunu Stephens LPN Start : 21-Nov-2012 End : 08-Dec-2012 Inactive BACTRIM DS, 800-160MG (Oral Tablet) 1 Tablet bid for 7 days Quantity: 14 {Tablet} Refills: 0 Ordered:16-May-2013 José Miguela APPOINTMENT MANAGER, Eli Mejiaa APPOINTMENT MANAGER, Elif Start : 16-May-2013 End : 23-May-2013 Inactive Cheratussin AC 100-10 MG/5ML Oral Syrup 1 Teaspoon(s) qhs prn cough for 0 days Quantity: 8 {Fluid_Ounce} Refills: 0 Ordered:16-Jun-2016 Priya Gillette Start : 12-Mar-2016 End : 16-Jun-2016 Inactive Comments:eight CIPRO, 500MG (Oral Tablet) 1 Tablet bid for 7 days Quantity: 14 {Tablet} Refills: 0 Ordered:15-Jan-2014 José Miguela APPOINTMENT MANAGER, Eli Mejiaa APPOINTMENT MANAGER, Elif Start : 15-Jan-2014 End : 22-Jan-2014 [...] : 07-Nov-2012 End : 12-Feb-2014 Inactive Drisdol 96665 UNIT Oral Capsule 1 (one) Capsule once [...] Quantity: 30 {Tablet_ER_24HR} Refills: 6 Ordered:03-Aug-2011 Long 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, Teressa L Start : 11-Jun-2011 End : [...] : 29-Jul-2010 End : 30-Sep-2010 Inactive Nystatin 759501 UNIT/ML Mouth/Throat Suspension 4-6 Milliliter swish and [...] : 12-Dec-2015 End : 16-Jun-2016 Inactive Comments:per [facility] er Topamax 100 MG Oral [...] 03-Jan-2018 Inactive Comments:1 rambo as directed ZOSTAVAX, 60062AAH/0.65ML (Subcutaneous Solution Reconstituted) 1 For Solution once [...] Start : 04-Jan-2017 End : 04-Jan-2017 Discontinued Comments:[facility] er FLEXERIL, 10MG (Oral Tablet) [...] : 13-Nov-2013 End : 13-Nov-2013 Discontinued Comments:ID [id number] Medrol 4 MG Oral Tablet Therapy Pack [...] 18-Jan-2017 End : 27-Jul-2017 Discontinued Vitamin D3 75635 UNIT Oral Tablet 1 (one) Tablet Tablet once a week for 60 days Quantity: 8 {Tablet} Refills: 0 Ordered:04-Jan-2017 Slarb 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, Naomi Start : 24-Nov-2016 End : 04-Jan-2017 [...] for Tdap vaccination (Renamed from Need for ixejckhmcu-omudtjw-dlwhgabmw (Tdap) vaccine, adult/adolescent) (Z23, V06.1) Status: Inactive as of 12-Dec-2015 Other and unspecified hyperlipidemia (E78.5, 272.4) Status: Inactive as of 24-Jul-2013 Pharyngitis, acute (J02.9, 462) Comments: rapid strep negativeCulture Status: Inactive as of 20-Jan-2016 Pneumonitis (J18.9, 486) Status: Inactive as of 14-May-2014 Pre-operative exam (Renamed from Preop examination) (Z01.818, V72.84) Comments: Getting 4 tooth out 07/17 next week, [facility].HAs MARTHA has CPAP but not been using it for 2 years, need to see Bavis for retitration.Cr : 1.77 , repeat labs, US kidneyDM type 2: HBa1c 5.4 BMI:(obesit y increase the risk of wound infection, PE.Not malnourishedLabs:CBCCMPPT/INRtype and screen gel(85447)EK06/10/16: no acute changesHas good social support and [...] around the house.Denies previous history of anesthesia problems.(Saimamee rctomy 22 june 2016, no compliaction)Deniies anyone [...] under good control Patient to use Mucinex qllj-iez-ifhtbsh which helped her. Status: Inactive as of [...] Comments: 2000 Tubal ligation 1963 Completed [facility] Left endolymphatic sac Completed decompression with shunt and middle ear infusion with decadron 03/05 Date Value Details 01-Aug-2018 CTA Chest W/WO Contrast Result: Comments: See Note; NOTES: [facility] Imaging Services [address] [place] [address] CTA Chest W/WO Contrast MR#: [id number] Acct: [id number] Name: ELIZABETH TORO Rep #: [id number] : 1950 F 67 From: Hardeep Calix MD PCP: Eli Bowman NP Status: REG CLI Study: CTA Chest W/WO Contrast Date of Exam: 08/01/18 Exam# [id number] Ordering Dr: Eli Bowman STUDY: CTA CHEST/T [...] Service support , CC: Eli Bowman NP Swimming Pool Installer And Servicer: Signed 29-Jul-2018 Chest PA and Lateral Result: Comments: See Note; NOTES: [facility] Imaging Services [address] [place] [address] Chest PA and Lateral MR#: [id number] Acct: [id number] Name: ELIZABETH TORO Rep #: [id number] : 1950 F 67 From: Cami Klein MD PCP: Eli Bowman NP Status: REG CLI Study: Chest PA and Lateral Date of Exam: 07/29/18 Exam# [id number] Ordering Dr: Eli Bowman STUDY: X-RAY CHEST [...] Service support , CC: Eli Bowman NP Swimming Pool Installer And Servicer: Signed 21-Apr-2018 Downtime Report Result: Comments: See Note; NOTES: [facility] Medical Records Department [address] [place] [address] Downtime Report MR#: [id number] Acct: [id number] Name: ELIZABETH TORO Rep #: : 1950 67 From: Alon Klein PCP: Eli Bowman NP Status: REG RCR This patient was seen during an EMR downtime April 04, 2018 - April 11, 2018. This patient may have a combination of p aper and electronic documentation or all paper documentation. All documentation is viewable within the e-chart portion of [facility] for each patient visit. 12-Apr-2018 NCS and/or EMG Patient Result: Comments: See Note; NOTES: [facility] Pulmonary Services/Neurology [address] [place] [address] MR#: [id number] Acct: [id number] Name: ELIZABETH TORO Rep #: [id number] : 1950 67 From: Kal Hernandez MD Referring Dr: Eli Bowman NP Status: REG CLI Ordering Dr: Date: Location: [facility] Sex: F C NCS and/or [...] ____ Kal Hernandez MD CC: Eli Bowman AIRPLANE INSPECTOR; Kal Hernandez MD Date Dictated: 04/12/18949 Date Transcribed: 04/12/18949 Swimming Pool Installer And Servicer: MOHIT Signed 01-Feb-2018 PT D/C Summary (1) Result: Comments: See Note; NOTES: [facility] [address] [place] [address]. [address] [place] [phone] Fax REHABILITATION SERVICES DISCHAR SUMMARY MR#: [id number] Acct: [id number] Name: ELIZABETH TORO Rep #: [id number] : 1950 67 From: Cristopher Francis PT, ATC Referring DrJose: Mayda Dobbins DO Status: REG R Insurance: [facility] PART A B PHYSICIAN MUTUAL [...] please feel free to call me at [phone]. Thank you for the referral of this patient. Sincerely, Cristopher Francis PT, <Electronically signed by Andrea Francis PT, ATC> 02/01/18 0823 CC: Eli Bowman AIRPLANE INSPECTOR; Mayda Dobbins DO [facility] Signed 30-Dec-2017 Inital Evaluation (1) - PT Result: Comments: See Note; NOTES: [facility] [place] [address] Fax REHABILITATION SERVICES INITIAL EVALUATION MR#: [id number] Acct: [id number] Name: ELIZABETH TORO Rep #: [id number] : 1950 67 From: Cristopher Francis PT, ATC Referring DrJose: Mayda Dobbins DO Status: REG RCR Insurance: [employer] PART A B PHYSICIAN MUTUAL INS CO [...] to be FAXED BACK to us at [phone] for Medicare purposes. Please let me know if there are questions or concerns regarding this plan of care. Physician Signature: Date: <Electronically signed by Cristopher Francis PT, ATC> 12/30/17 1056 CC: Eli Bowman NP; Mayda Dobbins DO DT: 0 12/30/17 [facility] Signed For Medicare only, by signing this I certify the plan of care. Physicians Signature Date 08-Oct-2017 Operative Report Result: Comments: See Note; NOTES: [facility] Medical Records Department [address] [place] [address] Operative Report 10/08/172017 MR#: [id number] Acct: [id number] Name: XAVIER TORO Rep #: [id number] : 1950 67 From: Oscar Winston MD PCP: Eli Bowman NP Status: REG [facility] [place] Location: [place] [address] Problem List (1) Intrinsic (urethral) sphincter deficiency [...] [facility] Medical Records Department [address] [place] [address] Instructions for Home/Discharge Instructions 10/08/171950 MR#: [id number] Acct: [id number] Name: ELIZABETH TORO Rep #: [id number] : 1950 67 From: Oscar Winston MD PCP: Eli Bowman NP Status: REG [facility] Discharge Diet: Light diet - advance as [...] Note; NOTES: [facility] Imaging Services [address] [place] [address] Chest PA and Lateral MR#: [id number] Acct: [id number] Name: JAYYELIZABETH A Rep #: [id number] : 1950 F 67 From: Yury Arthur MD PCP: Eli Bowman Status: REG CLI Study: Chest PA and Lateral Date of Exam: 08/30/17 Exam# [id number] Ordering Dr: Mayda Dobbins DO STUDY: X-RAY [...] , CC: Eli Bowman; Mayda Dobbins DO Swimming Pool Installer And Servicer: Signed 20-Jul-2017 L/S Spine Min 4 Views Result: Comments: See Note; NOTES: [facility] Imaging Services [address] [place] [address] L/S Spine Min 4 Views MR#: [id number] Acct: [id number] Name: ELIZABETH TORO Rep #: [id number] : 1950 F 66 From: Dionte Lujan DO PCP: Eli Bowman Status: REG CLI Study: L/S Spine Min 4 Views Date of Exam: 07/20/17 Exam# [id number] Ordering Dr: Edita Cabral MD STUDY: X-RAY [...] Fax CC: Eli Bowman; Edita Cabral MD Swimming Pool Installer And Servicer: Signed 20-Jul-2017 Shoulder min 2 Views Result: Comments: See Note; NOTES: [facility] Imaging Services [address] [place] [address] Shoulder min 2 Views MR#: [id number] Acct: [id number] Name: ELIZABETH TORO Rep #: [id number] : 1950 F 66 From: Dionte Lujan DO PCP: Eli Bowman Status: REG CLI Study: Shoulder min 2 Views Date of Exam: 07/20/17 Exam# [id number] Ordering Dr: Edita Cabral MD STUDY: X-RAY - RIGHT [facility] REASON FOR EXAM: Female, 66 years old. [...] , CC: Eli Bowman; Edita Cabral MD Swimming Pool Installer And Servicer: Signed 11-May-2017 PT D/C Summary (1) Result: Comments: See Note; NOTES: [facility] [address] [place] [address] Fax REHABILITATION SERVICES DISCHAR GE SUMMARY MR#: [id number] Acct: [id number] Name: ELIZABETH TORO Rep #: [id number] : 1950 66 From: Naomi COMER Referring [...] please feel free to call me at [phone]. Thank you for the referral of this patient. Sincerely, Naomi Osorio <Electronically signed by Naomi Osorio MPT> 09/17 0919 CC: Nunu Root; Eli Bowman Signed 14-Apr-2017 Inital Evaluation (1) - PT Result: Comments: See Note; NOTES: [facility] [address] [place] [address] Fax REHABILITATION SERVICES INITIAL EVALUATION MR#: [id number] Acct: [id number] Name: ELIZABETH TORO Rep #: [id number] : 1950 66 From: Naomi COMER Referring [...] to be FAXED BACK to us at [phone] for Medicare purposes. Please let me know [...] NOTES: [facility] Imaging Services [address] [place] [address] Verdana 4d Knee 4 or More Views MR#: [id number] Acct: [id number] Name: ELIZABETH TORO p #: [id number] : 1950 F 66 From: Chalino Mancia MD PCP: Eli Bowman Status: REG CLI Study: Knee 4 or More Views Date of Exam: 04/08/17 Exam# [id number] Ordering Dr: Mayda Dobbins DO STUDY: X-RAY [...] , CC: Eli Bowman; Mayda Dobbins DO Swimming Pool Installer And Servicer: Signed 08-Apr-2017 Knee 4 or More Views Result: Comments: See Note; NOTES: [facility] Imaging Services [address] [place] [address] Verdana 4d Knee 4 or More Views MR#: [id number] Acct: [id number] Name: ELIZABETH TORO Viridiana p #: [id number] : 1950 F 66 From: Chalino Mancia MD PCP: Eli Bowman Status: REG CLI Study: Knee 4 or More Views Date of Exam: 04/08/17 Exam# [id number] Ordering Dr: Mayda Dobbins DO STUDY: X-RAY [...] , CC: Eli Bowman; Mayda Dobbins DO Swimming Pool Installer And Servicer: Signed 15-Mar-2017 Sleep Study Report Result: Comments: See Note; NOTES: [facility] SLEEP DISORDER [facility] [address] [place] [address] Polysomnography with NCPAP MR#: [id number] Acct: [id number] Name: JAYYELIZABETH A Re p #: [id number] : 1950 66 From: Kal Hernandez MD [...] Please note that a reference to [facility] AHI in this report is consistent with the current Hypopnea definition according to Medicare Criteria and an AASM AHI reference is consistent with the current Hypopnea defini tion according to the AASM criteria and is recognized by [facility] as the RDI. PROCEDURE: The study was attended continuously by a alarm technician. Monitored parameters included left and right [...] body mass index of 30.9 and an Tenino Sleepiness Scale score of 6. There is [...] requested. Kal Hernandez MD T: NTS JOB: [id number] CC: Kal Hernandez MD 1151 1151 03/15/17 1451 <Electronically signed by Kal Hernandez MD> Date Kal Hernandez MD Co-signature (if applicable) Date Signed 05-Jan-2017 Esophagus Only Result: Comments: See Note; NOTES: [facility] Imaging Services [address] [place] [address] Verdana 4d Esophagus Only MR#: [id number] Acct: [id number] Name: ELIZABETH TORO Rep #: [id number] : 1950 F 66 From: Gabriela Ragland MD PCP: Eli Bowman Status: REG CLI Study: Esophagus Only Date of Exam: 01/05/17 Exam# [id number] Ordering Dr: Sofia Bragg MD STUDY: AIR-CONTRAST [...] , CC: Eli Bowman; Sofia Bragg MD Swimming Pool Installer And Servicer: Signed 29-Dec-2016 Emergency Department Summary Result: Comments: See Note; NOTES: [facility] Medical Records Department [address] [place] [address] Emergency Department Summary MR#: [id number] Acct: [id number] Name: XAVIER TORO Rep #: [id number] : 1950 66 From: Sofia Bragg MD PCP: Eli Bowman Status: DEP ER DATE OF SERVICE: 12/29/2016 CHIEF COMPLAINT: Sore throat. HISTORY OF PRESENT ILLNESS: This is a 66-year- old woman that states she was at [employer], choked on a piece of potato 5 [...] the case with Dr. Pena who is motor vehicle or caravan salesperson for GI and he suggested ordering an [...] C: Eli Pena MD T: NTS JOB: [id number] 12/29/16 <Electronically signed by Sofia Bragg MD> Date Sofia Bragg MD Cosigner Signature (If Indicated): Date CC: Eli Bowman; Junior Pena Date Dictated: 12/29/161828 Date Transcribed: 12/29/161828 Swimming Pool Installer And Servicer: Signed 29-Dec-2016 Discharge Instruction Result: Comments: See Note; NOTES: [facility] Medical Records Department [address] [place] [address] Discharge Instruction 12/29/161829 MR#: [id number] Acct: [id number] Name: ELIZABETH TORO Rep #: [id number] : 1950 66 From: Sofia Bragg MD [...] your Primary Care Provider. Call [facility] ([phone] ) or report to the closest Emergency Room. Call 911 if necessary. 12/29/161832 <Electronically signed by Sofia Bragg MD> Date Sofia elliott MD Cosigner Signature (If Indicated): Date CC: Eli Bowman 07-Aug-2016 Sleep Study Report Result: Comments: See Note; NOTES: [facility]ORDER [facility] [address] [place] [address] Split Night Sleep Study MR#: [id number] Acct: [id number] Name: ELIZABETH TORO Rep #: [id number] : 1950 65 From: Kal Hernandez MD [...] Please note that a reference to [facility] AHI in this report is consistent with the current Hypopnea definition according to Medicare Criteria and an [facility] AHI reference is consistent with the current Hypopnea defin ition according to the AASM criteria and is recognized by [facility] as the RDI. PROCEDURE: The study was attended continuously by a alarm technician. Monitored parameters included left and right [...] a body mass index of 29.3 and Tenino Sleepiness Scale score of 2. There is [...] humidity. Kal Hernandez MD T: NTS JOB: [id number] CC : Kal Hernandez MD 1144 1144 08/07/16 0959 <Electronically signed by Kal Hernandez MD> Date Kal Hernandez MD Co-signature (if applicable) Date Signed -Aug-2016 Kidney and Bladder Result: Comments: See Note; NOTES: [facility] Imaging Services [address] [place] [address] Verdana 4d Kidney and Bladder MR#: [id number] Acct: [id number] Name: ELIZABETH TORO Rep #: [id number] : 1950 F 65 From: Anibal Lan MD PCP: Donnie Gonzales Status: [facility] Study: Kidney and Bladder Date of Exam: 08/04/16 Exam# [id number] Ordering Dr: Beto Henry MD UDY: RENAL [...] Anibal Lan MD at 11:16 EDT Tel [phone], Service support [phone], CC: Soumya Henry M.D.; Donnie Gonzales Swimming Pool Installer And Servicer: Signed 23-Jun-2016 Operative Report Result: Comments: See Note; NOTES: [facility] Medical Records Department [address] [place] [address] Operative Report MR#: [id number] Acct: [id number] Name: ELIZABETH TORO Rep #: [id number] : 1950 65 From: Gm Brush MD PCP: Donnie Gonzales Status: REG [facility] DATE OF SERVICE: 06/22/2016 DATE OF PROCEDURE: June 22, 2016 SURGEON: Gm Brush M.D. ASSOCIATE RESEARCH SCIENTIST: Lia jacinto. ANESTHESIA: Gem Shelby and Frank [...] ovaries. Gm Brush MD T: NTS JOB: [id number] 06/23/16 0725 <Electronically signed by Gm Brush MD> Date __ Gm Brush MD Cosigner Signature (If Indicated): Date CC: Gm Brush MD; Donnie Nolasco Dicta nahed: 06/22/161102 Date Transcribed: 06/22/161102 Swimming Pool Installer And Servicer: Signed 22-Jun-2016 Discharge Instruction Result: Comments: See Note; NOTES: [facility] Medical Records Department [address] [place] [address] Instructions for Home/Discharge Instructions 06/22/16 0904 MR#: [id number] Acct: [id number] Name: ELIZABETH TORO Rep #: [id number] : 1950 65 From: Gm Brush MD PCP: Donnie Gonzales Status: REG [facility] Discharge Diet: No Restrictions Discharge Activity: Return [...] CC: Donnie Gonzales 10-Jun-2016 ELECTROCARDIOGRAM, COMPLETE (ECG) (10211) Result: [MEASUREMENTS ANALYSIS] Date of Test: 06/10/2016 09:39:53; Heart Rate: 58; DC Interval: 208; QRS: 86; QT Interval: 480; Corrected QT Interval (QTc): 477; P Wave [place]: 45; QRS Wave [place]: 11; T Wave [place]: 23; Blood Pressure: 112/70 [ECG DIAGNOSTIC STATEMENTS] Date of Test: 06/10/2016 09:39:53; Summary: Sinus Bradycardia - Negative T-waves -May be normal - possible Anteroseptal ischemia. BORDERLINE 13-Apr-2016 Operative Report Result: Comments: See Note; NOTES: [facility] Medical Records Department [address] [place] [address] Operative Report MR#: [id number] Acct: [id number] Name: XAVIER TORO LEILANI Schaefer Rep #: [id number] : 1950 65 From: Gm Brush MD PCP: Edita Cabral MD Status: [facility] DATE OF SERVICE: 04/13/2016 DATE OF [...] curettings. Gm Brush MD T: NTS JOB: [id number] 04/13/16 1838 <Electronically signed by Gm Brush MD> Date Gm Brush MD Cosigner Signature (If Indicated): Date CC: Edita Young; Gm Brush MD Date Dictated: 04/13/16 1031 Date Transcribed: 04/13/16 103 Swimming Pool Installer And Servicer: Signed 13-Apr-2016 Discharge Instruction Result: Comments: See Note; NOTES: [facility] Medical Records Department [address] [place] [address] Instructions for Home/Discharge Instructions 04/13/16 1003 MR#: [id number] Acct: [id number] Name: ELIZABETH TORO Rep #: [id number] : 1950 65 From: Gm Brush MD PCP: Edita Cabral MD Status: REG [facility] Discharge Diet: No Restrictions Discharge Activity: R [...] mg PO DAILY 04/10/16 Hydrocodone Bitart/Apap 5-325 [[place] 5MG-325MG] 1 tablet PO Q4H PRN PRN #10 tablet 04/13/16 The followi ng prescriptions were given: Hydrocodone Bitart/Apap 5-325 [[place] 5MG-325MG] 1 tablet PO Q4H PRN PRN #10 tablet PRN Reason: Mod-Severe Pain () Please Follow Up With: Gm Brush When: 2-3 jason bowers 04/13/16 1004 <Electronically signed by Gm Brush MD> Date Gm Brush MD CC: Edita Cabral MD 22-Mar-2016 Emergency Department Summary Result: Comments: See Note; NOTES: [facility] Medical Records Department [address] [place] [address] Emergency Department Summary MR#: [id number] Acct: [id number] Name: ELIZABETH TORO Rep #: [id number] : 1950 65 From: Nando Fuller MD [...] C: Edita Brush MD T: NTS JOB: [id number] 03/22/16 0247 <Electronically signed by Nando Fuller MD&a mp;#62; Date Nando Fuller MD Cosigner Signature (If Indicated): Date CC: Edita Cabral MD; Otilia Brush MD Date Dictated: 03/21/1650 Date Transcribed: 03/21/1650 Swimming Pool Installer And Servicer: Signed 21-Mar-2016 Discharge Instruction Result: Comments: See Note; NOTES: [facility] Medical Records Department [address] [place] [address] Discharge Instruction 03/21/168 MR#: [id number] Acct: [id number] Name: ELIZABETH TORO Rep #: [id number] : 1950 65 From: Nando Fuller MD [...] ems, contact your doctor. Call [facility] ([phone]) or report to the closest Emergency Room. Call 911 if necessary. 03/21/16 0049 <Electronically signed by Nando Fuller MD&#6 2; Date Nando Fuller MD Cosigner Signature (If Indicated): Date CC: Edita Cabral MD 20-Mar-2016 Transvaginal Non- Result: Comments: See Note; NOTES: [facility] Imaging Services [address] [place] [address] Verdana 4d Transvaginal Non- MR#: [id number] Acct: [id number] Name: ELIZABETH DIAZ Rep #: [id number] : 1950 F 65 From: Jose Fu PCP: Edita Cabral MD Status: REG ER Study: Transvaginal Non- Date of Exam: 03/20/16 Exam# [id number] Ordering Dr: Oz Fuller MD STUDY: ULTRASOUND [...] DO at 0:42 EDT , Service support [phone], Fax CC: Edita Cabral MD; Nando Fuller MD Swimming Pool Installer And Servicer: Signed 25-Feb-2016 Esophagus Only Result: Comments: See Note; NOTES: [facility] Imaging Services [address] [place] [address] Verdana 4d Esophagus Only MR#: [id number] Acct: [id number] Name: XAVIER TORO Rep #: [id number] : 1950 F 65 From: Anibal Lan MD PCP: Ediat Cabral MD Status: REG CLI Study: Esophagus Only Date of Exam: 02/25/16 Exam# [id number] Ordering Dr: Donnie Gonzales STUDY: X-RAY - [...] Anibal Lan MD at 10:35 EDT Tel [phone], Service support [phone], Fax RAD/Esophagus Only IMPRESSION: Normal plain film x-ray examination (barium swallow) of the esophagus. Electronically Signed: Anibal Lan MD at 10: 35 EDT Tel [phone], Service support [phone], CC: Edita Cabral MD; Donnie Gonzales Swimming Pool Installer And Servicer: Signed 25-Feb-2016 Esophagus Only Result: Comments: See Note; NOTES: [facility] Imaging Services [address] [place] [address] Verdana 4d Esophagus Only MR#: [id number] Acct: [id number] Name: XAVIER TORO Rep #: [id number] : 1950 F 65 From: Anibal Lan MD PCP: Edita Cabral MD Status: REG CLI Study: Esophagus Only Date of Exam: 02/25/16 Exam# [id number] Ordering Dr: Donnie Gonzales ADDENDUM by Anibal Lan MD on 03/31/16 at 0747 ADDENDUM This is an addendum report for PQRS purposes. 19 images were obtained. Electronically Signed: Anibal Lan MD at 7:47 EDT Tel [phone], Service support [phone], 03/31/16 0747 Date cc: Edita Cabral MD; [...] Anibal Lan MD at 10:35 EDT Tel [phone], Service support [phone], RAD/Esophagus Only IMPRESSION: Normal plain film x-ray examination (barium swallow) of the esophagus. Electronically Signed: Anibal Lan MD at 10:35 EDT Tel [phone], Service support [phone], CC: Edita Cabral MD; Donnie Gonzales Swimming Pool Installer And Servicer: Signed 10-Dec-2015 12 Lead Electrocardiogram Result: Comments: See Note; NOTES: [facility] Cardiovascular Services [address] [place] [address] 12 Lead EKG 12/08/15 1551 MR#: [id number] Acct: [id number] Name: ELIZABETH DASILVA Rep #: [id number] : 1950 65 From: Francisco Muller MD [...] ECG Confirmed by FRANCISCO MULLER MD ([id number]), writer editor ZUNILDA KLEIN ([id number]) on 12/10/2015 9:33:10 AM Referred By: ROMEL Confirmed By:FRANCISCO MULLER MD 12/10/15 0933 Date ___ Francisco Muller MD CC: Edita Cabral MD Date Dictated: 12/08/151550 Date Transcribed: 12/08/151550 Swimming Pool Installer And Servicer: Signed 10-Dec-2015 Emergency Department Summary Result: Comments: See Note; NOTES: [facility] Medical Records Department [address] [place] [address] Emergency Department Summary MR#: [id number] Acct: [id number] Name: ELIZABETH TORO Rep #: [id number] : 1950 65 From: Sisi Severino MD [...] Dominguez Galeano C: Edita Cabral MD T: [facility] JOB: [id number] 12/10/15 0232 <Electronically deepti d by Sisi Severino MD> Date Sisi Severino MD Cosigner Signature (If Indicated): Date Dominguez C: Edita Cabral MD Date Dictated: 12/08/151705 Date Transcribed: 12/08/151705 Swimming Pool Installer And Servicer: Signed 08-Dec-2015 Discharge Instruction Result: Comments: See Note; NOTES: [facility] Medical Records Department [address] [place] [address] Discharge Instruction 12/08/15 1659 MR#: [id number] Acct: [id number] Name: ELIZABETH TORO Rep #: [id number] : 1950 65 From: Sisi Severino MD [...] problems, contact your doctor. Call [facility] ([phone]) or report to the closest Emergency Room. Call 911 if necessary. 12/08/15 1701 <Electronically signed by Sisi young MD> Date Sisi Severino MD Cosigner Signature (If Indicated): Date CC: Edita Cabral MD 08-Dec-2015 Chest PA and Lateral Result: Comments: See Note; NOTES: [facility] Imaging Services [address] [place] [address] Verdana 4d Chest PA and Lateral MR#: [id number] Acct: [id number] Name: ELIZABETH TORO Rep #: [id number] : 1950 F 65 From: Malaika Diana MD PCP: Edita Cabral MD Status: REG ER Study: Chest PA and Lateral Date of Exam: 12/08/15 Exam# [id number] Ordering Dr: Sisi Severino MD STUDY: X-RAY [...] MD at 16:41 EST , Service support [phone], RAD/Chest PA and Lateral IMPRESSION: No acute disease is demonstrated. Electronic ally Signed: Malaika Diana MD at 16:41 EST , Service support [phone], CC: Edita Cabral MD; Sisi Severino MD Swimming Pool Installer And Servicer: Signed 16-Sep-2015 EKG (73356) Result: [MEASUREMENTS ANALYSIS] Date of Test: 09/16/2015 09:46:37; Heart Rate: 74; DC Interval: 192; QRS: 88; QT Interval: 406; Corrected QT Interval (QTc): 430; P Wave [place]: 28; QRS Wave [place]: -3; T Wave [place]: -1; Blood Pressure: 104/60 [ECG DIAGNOSTIC STATEMENTS] Date of Test: 09/16/2015 09:46:37; Summary: Sinus Rhythm Low voltage in precordial leads. - Nonspecific T-abnormality. ABNORMAL 11-Feb-2015 Kidney and Bladder Result: Comments: See Note; NOTES: [facility] Imaging Services [address] [place] [address] Ultrasound Report MR#: [id number] Acct: [id number] Name: ELIZABETH TORO Rep #: [id number] : 1950 F 64 From: Mina Cade MD PCP: Edita Cabral MD Status: REG CLI Study: Kidney and Bladder Date of Exam: 02/11/15 Exam# [id number] Ordering Dr: Edita Cabral MD STUDY: RE [...] MD at 23:11 EDT , Service support [phone], CC: Edita Cabral MD Swimming Pool Installer And Servicer: Signed 24-Jul-2014 PT Discharge Summary Result: Comments: See Note; NOTES: [facility] [address] [place] [address]. [address] [place], [place] [address] Fax REHABILITATION SERVICES DISCHARGE SUMMARY MR#: [id number] Acct: [id number] Name: ELIZABETH TORO Rep #: [id number] : 1950 63 From: Naomi Osorio Referring [...] clinic. Naomi Osorio, PT T: [facility] JOB: [id number] <Electronically signed by Faraz Osorio > 07/24/14 1214 CC: Signed 15-Jun-2014 PT Discharge Summary Result: Comments: See Note; NOTES: [facility] [address] [place] [address]. [address] [place] [address] Fax REHABILITATION SERVICES DISCHARGE SUMMARY MR#: [id number] Acct: [id number] Name: ELIZABETH TORO Rep #: [id number] : 1950 63 From: Naomi Osorio Referring [...] Sincerely, Naomi Osorio, PT T: [facility] JOB: [id number] <Electronically signed by Naomi Osorio & amp;#62; 06/15/14 1410 CC: Signed 25-May-2014 Inital Evaluation - PT Result: Comments: See Note; NOTES: [facility] [address] [place] [address]. [address] [place] [address] Fax REHABILITATION SERVICES INITIAL EVALUATION MR#: [id number] Acct: [id number] Name: ELIZABETH TORO Rep #: [id number] : 1950 63 From: Naomi Osorio Referring [...] anterolateral shoulder. She is right-handed. 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 Naomi Osorio, PT T: [facility] JOB: [id number] <Electronically signed by Naomi Osorio > 4 1241 CC: Signed For Medicare only, by signing this I certify the plan of care. Physicians Signature Date 23-May-2014 Nuclear Stress Test - Chemical Result: Comments: See Note; NOTES: [facility] Imaging Services [address] [place] [address] Nuclear Medicine Report MR#: [id number] Acct: [id number] Name: ELIZABETH TORO Rep #: [id number] : 1950 F 63 From: Tano Nielsen MD PCP: Edita Cabral MD Status: REG CLI Study: Nuclear Stress Test - Chemical Date of Exam: 05/23/14 Exam# [id number] Ordering Dr: Álvaro Cabral MD EXERCISE TOLERANCE [...] LVEF of 61%. CC: Edita Cabral MD Swimming Pool Installer And Servicer: PHILLIPS Signed 14-May-2014 Shoulder min 2 Views Result: Comments: See Note; NOTES: [facility] Imaging Services [address] [place] [address] Radiology Report MR#: [id number] Acct: [id number] Name: ELIZABETH TORO Rep #: [id number] : 1950 F 63 From: Hardeep Dumont MD PCP: Erna Kingston DO Status: REG CLI Study: Shoulder min 2 Views Date of Exam: 05/14/14 Exam# [id number] Ordering Dr: Edita Cabral MD STUDY: X-RAY [...] Silvio Dumont MD at 12:18 EDT , CertiVox ce support [phone], CC: Edita Cabral MD; Erna Kingston DO Swimming Pool Installer And Servicer: Signed 30-Apr-2014 CTA Chest W/WO Contrast Result: Comments: See Note; NOTES: [facility] Imaging Services [address] [place] [address] CAT Scan Report MR#: [id number] Acct: [id number] Name: ELIZABETH TORO Rep #: [id number] : 1950 F 63 From: Hardeep Calix MD PCP: Erna Kingston DO Status: REG CLI Study: CTA Chest W/WO Contrast Date of Exam: 04/30/14 Exam# [id number] Ordering Dr: Erna Kingston DO STUDY: CTA [...] at 19 :01 EDT , Service support [phone], CC: Erna Kingston DO Swimming Pool Installer And Servicer: Signed Family History Unknown Family Member Name [...] Value Details :57 CREATININE FINGERSTICK Comments: [facility] [address] [place] [address] EGFR WB 55.0000 mL/min (Abnormal) CREATININE WB 1.1 mg/dL (Abnormal) Range: 0.55-1.02 86-Qqi-567611:19 D-Dimer (46725) Comments: PATIENT NOT FASTINGPERFORMED BY: [employer] Axwonr5100 [facility] [id number] D-Dimer 0.57 {mg/L_FEU} (Abnormal) Range: 0.00-0.49 Comments: According to the assay video rental clerk's published package insert, anormal (<0.50 mg/L FEU) [...] and an78 year old 0.80 mg/L FEU. 99-Ohx-427157:19 Troponin I (03968) Comments: PATIENT NOT FASTINGPERFORMED BY: [facility]6370 [facility] [id number] Troponin I <0.01 ng/mL (Normal) Range: 0.00-0.04 89-Wql-619231:19 CPK MB FRACTION (80767) Comments: PATIENT NOT FASTINGPERFORMED BY: [facility]6370 [facility] [id number] Creatine Kinase (CK), MB 2.5 ng/mL (Normal) Range: 0.0-5.3 13-Wtp-569402:19 CREATINE KINASE TOTAL (51112) Comments: PATIENT NOT FASTINGPERFORMED BY: [facility] Lhaxrn3470 L[facility] StoutCentral Harnett Hospitalreinaldo [place] [id number] Creatine Kinase,Total 103 U/L (Normal) Range: 24-173 88-Poe-42697:16 CBC-Complete Blood Cnt No Diff Comments: [facility] [address] [place], [address] MPV 10.5 fL (Normal) Range: 6.2-12.0 [...] 4.4-11.0 :16 Microalb:Creat Ratio,Random UR Comments: [facility] [address] [place], [address] MALB:CREAT Test not performed {mg/g_CRE} (Normal) MICROALBUMIN,UR < 5.0 mg/L (Normal) UR CREAT < 13.00 mg/dL (Normal) :16 PTHIN 51.5 pg/mL (Normal) Comments: [facility] [address] [place], [address] Range: 18.4-80.1 19-Apl-61915:16 Renal Profile Comments: [facility] [address] [place], [address] CO2 28.0 mmol/L (Normal) Range: 21.0-32.0 [...] Comments: Please note revised GLUCOSE reference range crtwqrsxy62/02/2018. 99-Uri-77576:16 Vitamin D,25 Hydroxy Comments: [facility] [address] [place], [address] Vitamin D 25-OH 69.4 ng/mL (Normal) Range: 29.95-100.01 Comments: Vitamin D 25(OH) Status Range Deficiency <20 ng/mL (50nmol/L) Insuffciency 20 - 30 ng/mL (50 - 75 nmol/L) Sufficiency 30 - 100 ng/mL (75 - 250 nmol/L) Toxicity >100 ng/mL (>250 nmol/L) :04 HgA1C , Office (12367) HgA1C , Office 5.5 % (Normal) Range: 4.6 - 7.1 :23 CALCIFEDIOL (33672) Comments: PATIENT WAS FASTINGPERFORMED BY: [facility]CoSt. [facility]'s HospitalLduawd7013 [facility] [id number] Vitamin D, 25-Hydroxy 43.2 ng/mL (Normal) Range: 30.0-100.0 Comments: Vitamin D deficiency has been defined by the [place] of[place]icine and an Endocrine Society practice guideline as alevel of serum 25-OH vitamin D less than 20 ng/mL (1,2).The Endocrine Society went on to further define vitamin Dinsufficiency as a level between 21 and 29 ng/mL (2).1. IOM ([place] of Medicine). 2010. Dietary reference intakes for calcium and D. [place]: The National Academies Press.2. Azael MF, Leslee LEMON, Hillary PHILLIPS, et al. Evaluation, treatment, and prevention of vitamin D deficiency: an Endocrine Society clinical practice guideline. JCEM. 2010; 96(7):1911-30. 55-Yyr-01982:23 CBC, Platelets & Auto Diff Comments: PATIENT WAS FASTINGPERFORMED BY: [facility]CoSt. Mary's HospitalRlcdoa0675 [facility] [id number] (37453) Immature Grans (Abs) 0.0 {x10E3/uL} (Normal) Range: [...] Panel, Comprehensive Comments: PATIENT WAS FASTINGPERFORMED BY: [employer] Eibcsw2138 [facility] [id number] (81402) ALT (SGPT) 15 [iU]/L (Normal) Range: 0-32 [...] CREATININE RATIO Comments: PATIENT WAS FASTINGPERFORMED BY: [employer] Rbkjxz1856 [facility] [id number] (65929) AND (59651) Alb/Creat Ratio <5.6 {mg/g_creat} (Normal) Range: 0.0-30.0 Albumin, Urine <3.0 ug/mL (Normal) Creatinine, Urine 53.5 mg/dL (Normal) 36-Pdw-391167:31 Metabolic Panel, Basic Comments: PATIENT NOT FASTINGPERFORMED BY: [employer] [place] [id number] (60626) Calcium, Serum 9.9 mg/dL (Normal) Range: 8.7-10.3 [...] (Normal) Range: 65-99 :55 HgA1C , Office (62635) Comments: 5.5 HgA1C , Office 5.5 % (Normal) Range: 4.6 - 7.1 1-Whk-337250:22 VITAMIN B12 AND FOLATES Comments: today; PATIENT NOT FASTINGPERFORMED BY: [employer]6370 [facility] [id number] (52925) Folate (Folic Acid), Serum >20.0 ng/mL (Normal) Comments: A serum folate concentration of less than 3.1 ng/mL isconsidered to represent clinical deficiency. Vitamin B12 655 pg/mL (Normal) Range: 232-1245 Comments: Please note reference interval change 26-Mkj-948745:58 CALCIFEDIOL (67997) Comments: PATIENT NOT FASTINGPERFORMED BY: [employer] [facility]6370 [facility] [id number] Vitamin D, 25-Hydroxy 25.2 ng/mL (Abnormal) Range: 30.0-100.0 Comments: Vitamin D deficiency has been defined by the [place] of[place]icine and an Endocrine Society practice guideline as alevel of serum 25-OH vitamin D less than 20 ng/mL (1,2).The Endocrine Society went on to further define vitamin Dinsufficiency as a level between 21 and 29 ng/mL (2).1. IOM ([place] of Medicine). 2010. Dietary reference intakes for calcium and D. [place]: The National Academies Press.2. Azael MF, Leslee LEMON, Hillary PHILLIPS, et al. Evaluation, treatment, and prevention of vitamin D deficiency: an Endocrine Society clinical practice guideline. JCEM. 2010; 96(7):1911-30. 15-Gbv-924027:58 TSH (THYROID STIMULATING Comments: PATIENT NOT FASTINGPERFORMED BY: [facility] Rbtdrk8275 [facility] [id number] HORMONE) (20882) TSH 2.410 {uIU/mL} (Normal) Range: 0.450-4.500 :58 CBC WITH MANUAL DIFF (61340) Comments: PATIENT NOT FASTINGPERFORMED BY: [facility] Jortqs2366 [facility] [id number] Immature Grans (Abs) 0.0 {x10E3/uL} (Normal) Range: [...] 3.77-5.28 WBC 7.7 {x10E3/uL} (Normal) Range: 3.4-10.8 10-Fxb-326422:58 Metabolic Panel, Comprehensive Comments: PATIENT NOT FASTINGPERFORMED BY: [facility] Vldpvx7306 [facility] [id number] (33568) ALT (SGPT) 13 [iU]/L (Normal) Range: 0-32 [...] (Normal) Range: 65-99 :07 Bedside Glucose Comments: [facility] [address] [place] [address] BEDSIDE GLU 100 mg/dL (Normal) Range: 70-110 Comments: MANAGEMENT OF PATIENT CARE PER NURSING PROTOCOL 56-Xwl-481763:14 D-Dimer Quantitative (DVT/PE) Comments: Order Date: 08/30/17Order Info: 50626-5 - [facility] [address]zjqv[address] [place], [address] D-DIMER QUANT 0.35 {FEU/ug/m} (Normal) Range: 0.27-0.49 Comments: NORMAL D-Dimer level (<0.50) indicates no DVT or PE. 22-Qrb-726408:44 Blood Glucose , Office (42137) Blood Glucose , 129 (Normal) Office :2 Request Problem Final report Comments: PATIENT NOT FASTINGPERFORMED BY: J. [facility] Ocxbyf8902 [facility] [id number] Information: MOUTH SRC:MO 1 (Normal) Comments: Inappropriate source for anaerobic culture. A routine aerobic culturewas initiated. Contact the Microbiology Lab for further information. :2 Test Code Change SPRCS (Normal) Comments: PATIENT NOT FASTINGPERFORMED BY: [employer] [facility] Ltdaip8412 [facility] [id number] 1 Comments: Please note that the Microbiology test code was changed to reflectthe specimen source or transport received. :21 Upper Respiratory Culture Comments: PATIENT NOT FASTINGPERFORMED BY: [employer] Dzyiwn5624 [facility] [id number] Result 1 RRF (Normal) Comments: Routine respiratory duyen Upper Respiratory Culture Final report (Normal) :59 Metabolic Panel, Comprehensive Comments: Jul 2017; PATIENT NOT FASTINGPERFORMED BY: [employer] [facility] Dilyqn1480 [facility] [id number] (53119) ALT (SGPT) 16 [iU]/L (Normal) Range: 0-32 [...] Glucose, Serum 80 mg/dL (Normal) Range: 65-99 26-Vgz-710527:59 MAGNESIUM (81316) Comments: today; PATIENT NOT FASTINGPERFORMED BY: [facility] Iwqeob3930 [facility] [id number] Magnesium, Serum 2.2 mg/dL (Normal) Range: 1.6-2.3 :04 Blood Glucose , Office (15023) Blood Glucose , Office 111 (Normal) :04 HgA1C , Office (42360) HgA1C , Office 5.5 % (Normal) Range: 4.6 - 7.1 :03 CBC W/Diff, Automated Comments: [facility] [address] [place], [place], [address] ; another doc Absolute Lymph 2.35 {X10_3/ul} [...] Range: 4.4-11.0 :03 Protein+Creatinine Ratio,Urine Comments: [facility] [address]pzy[address] [facility] [address] [place], [place], [id number] PROT:CRE RATIO 403 {mg/g_CRE} (Abnormal) Range: 0-200 PROTEIN,UR.RAN. < 6.0 mg/dL (Normal) UR CREAT 13.90 mg/dL (Normal) :03 PTH,INTACT Comments: [facility] [address] [place], [address] PTH,Intact 34 pg/mL (Normal) Range: 14-72 :03 Renal Profile Comments: [facility] L[address]ugqmi[address] [place], [address] CO2 26.0 mmol/L (Normal) Range: 21.0-32.0 CL [...] for address and phone number VITD 25 [address]471 48.5 pg/mL (Normal) Range: 19.9-79.3 Comments: Performed at: - [address] [id number] Director: Navdeep Medley MD, Phone: [phone] 15-Bfp-767002:06 Metabolic Panel, Comprehensive Comments: PATIENT NOT FASTINGPERFORMED BY: LabCoSt. Mary's HospitalToetci4007 [facility] [id number] (53661) ALT (SGPT) 11 [iU]/L (Normal) Range: 0-32 [...] Glucose, Serum 78 mg/dL (Normal) Range: 65-99 93-Koo-808897:06 CBC, Platelets & Auto Diff Comments: PATIENT NOT FASTINGPERFORMED BY: [facility] Axpwmy3662 [facility] [id number] (56166) Immature Grans (Abs) 0.0 {x10E3/uL} (Normal) Range: [...] 3.77-5.28 WBC 9.3 {x10E3/uL} (Normal) Range: 3.4-10.8 10-Nmu-974972:06 TSH (13308) Comments: PATIENT NOT FASTINGPERFORMED BY: [employer] [facility] Anrcus2080 [facility] [id number] TSH 3.080 {uIU/mL} (Normal) Range: 0.450-4.500 44-Eyw-234288:56 HgA1C , Office (79845) HgA1C , Office 5.5 % (Normal) Range: 4.6 - 7.1 79-Pho-582614:56 Blood Glucose , Office (49017) Blood Glucose , Office 81 (Normal) :09 LIPID PANEL (10990) Comments: PATIENT WAS FASTINGPERFORMED BY: [employer] [facility] [employer] Hcvvlr4707 [facility] [id number] LDL/HDL Ratio 2.0 {ratio_units} (Normal) Range: 0.0-3.2 [...] COMPREHENSIVE Comments: PATIENT WAS FASTINGPERFORMED BY: [facility] Dnqfqi3350 [facility] [id number] (74995) ALT (SGPT) 15 [iU]/L (Normal) Range: 0-32 [...] Glucose, Serum 104 mg/dL (Abnormal) Range: 65-99 33-Cjs-25307:04 METABOLIC PANEL, COMPREHENSIVE Comments: fax to Dr Henry; PATIENT WAS FASTINGPERFORMED BY: LabCoSt. Mary's HospitalXdjfpy6254 [facility] [id number] (46763) ALT (SGPT) 16 [iU]/L (Normal) Range: 0-32 [...] CREATININE RATIO Comments: PATIENT WAS FASTINGPERFORMED BY: [employer] Sxebtr3368 [facility] [place] [id number] (35492) AND (37839) Microalb/Creat Ratio <6.3 {mg/g_creat} (Normal) Range: 0.0-30.0 Microalbumin, Urine <3.0 ug/mL (Normal) Creatinine, Urine 48.0 mg/dL (Normal) :04 HGB A1C (45219) Comments: PATIENT WAS FASTINGPERFORMED BY: [facility] Bbpmqo0467 [address] [facility] HospitalD[facility] [place] [id number] Hemoglobin A1c 5.7 % (Abnormal) Range: 4.8-5.6 Comments: . Pre-diabetes: 5.7 - 6.4 Diabetes: >6.4 Glycemic control for adults with diabetes: <7.0 :04 CALCIFEDIOL (51768) Comments: PATIENT WAS FASTINGPERFORMED BY: [facility] Oumzla7812 [address] [place] [id number] Vitamin D, 25-Hydroxy 24.2 ng/mL (Abnormal) Range: 30.0-100.0 Comments: Vitamin D deficiency has been defined by the [place] of[place]icine and an Endocrine Society practice guideline as alevel of serum 25-OH vitamin D less than 20 ng/mL (1,2).The Endocrine Society went on to further define vitamin Dinsufficiency as a level between 21 and 29 ng/mL (2).1. IOM ([place] of Medicine). 2010. Dietary reference intakes for calcium and D. [place]: The National Academies Press.2. Azael MF, Leslee NC, Hillary PHILLIPS, et al. Evaluation, treatment, and prevention of vitamin D deficiency: an Endocrine Society clinical practice guideline. JCEM. 2010; 96(7):1911-30. :04 TSH (THYROID STIMULATING Comments: PATIENT WAS FASTINGPERFORMED BY: CB [facility] Qibxqs0695 Monk [facility] HospitalD[facility] [place] [id number] HORMONE) (42502) TSH 2.710 {uIU/mL} (Normal) Range: 0.450-4.500 :04 LIPID PANEL (66081) Comments: PATIENT WAS FASTINGPERFORMED BY: [employer] SolutionsSt. Mary's HospitalLjepxc6566 [facility] [id number] LDL/HDL Ratio 1.7 {ratio_units} (Normal) Range: 0.0-3.2 [...] AUT DIFF Comments: PATIENT WAS FASTINGPERFORMED BY: [employer]6370 [facility] [id number] (61911) Immature Grans (Abs) 0.0 {x10E3/uL} (Normal) Range: [...] up testing of positive sera with both DC-3 and MPO- ANCA enzyme immunoassays. As many as 5% serumsamp les are positive only by EIA. Ref. AM J Clin Bwjyip0115;111:507-513. CYTOPLASMIC Ab <1:20 {titer} (Normal) :28 Anti-dsDNA Ab Comments: [facility] (refer to report for specific site)refer to report for address and phone number dsDNA AB <1 {IU/mL} (Normal) Range: 0-9 Comments: Negative <5 Equivocal 5 - 9 Positive >9Performed at: [facility] [id number] D irector: Junior Valera PhD, Phone: [phone] :28 Complement C3 Comments: Is Patient Fasting? [facility] (refer to report for specific site)refer to report for address and phone number COMP C3 127 mg/dL (Normal) Range: 82-167 Comments: Performed at: eduClipperSt. Mary's HospitalBcczjb5303 [place], [place] [id number] Director: Junior Valera PhD, Phone: [phone] :28 Complement C4 Comments: Is Patient Fasting? [...] electrophoresis scan will follow via computer,mail, or agency service coordinator delivery. LEOPOLDO RESULT,S Comment: (Normal) Comments: Presence of monoclonal protein is unclear at this time. Suggest repeat in 3 to 6 months if clinically indicated. A/G RATIO 0.9 (Normal) Range: 0.7-1.7 GLOBULIN, TOTAL 3.8 g/dL (Normal) Range: 2.2-3.9 M-SPIKE (Normal) Comments: Not Observed GAMMA GLOBULIN 1.4 g/dL (Normal) Range: 0.4-1.8 BETA GLOBULIN 1.3 g/dL (Normal) Range: 0.7-1.3 YSMQZ-2-YQXP 0.9 g/dL (Normal) Range: 0.4-1.0 AQRYH-5-PGFZ 0.2 g/dL (Normal) Range: 0.0-0.4 ALBUMIN 3.4 g/dL (Normal) Range: 2.9-4.4 IMMUNOGL M 44 mg/dL (Normal) Range: 26-217 IMMUNO A 614 mg/dL (Abnormal) Range: 87-352 IMMUNO G 1353 mg/dL (Normal) Range: 700-1600 PROTEIN,TOTAL 7.2 g/dL (Normal) Range: 6.0-8.5 :28 Protein+Creatinine Ratio,Urine Comments: [facility] [address]jyfm[address] [place], [place], [id number] PROT:CRE RATIO 128 {mg/g_CRE} (Normal) Range: 0-200 PROTEIN,UR.RAN. 6.5 mg/dL (Normal) UR CREAT 50.60 mg/dL (Normal) 98-Dyi-470757:46 RENAL FUNCTION PANEL (63670) Comments: PATIENT NOT FASTINGPERFORMED BY: langtaojinChelsea Hospital6370 [facility] [id number] Phosphorus, Serum 4.2 mg/dL (Normal) Range: 2.5-4.5 64-Gim-212307:46 PT (PROTHROMBIN TIME) (21089) Comments: PATIENT NOT FASTINGPERFORMED BY: langtaojinChelsea Hospital6370 [facility] [id number] Prothrombin Time 10.9 {sec} (Normal) Range: 9.1-12.0 INR 1.1 (Normal) Range: 0.8-1.2 Comments: Reference interval is for non-anticoagulated patients. . Suggested INR therapeutic range for Vitamin K anta gonist therapy: Standard Dose (moderate intensity therapeutic range): 2.0 - 3.0 Higher intensity therapeutic range 2.5 - 3.5 57-Esa-043595:46 METABOLIC PANEL, COMPREHENSIVE Comments: PATIENT NOT FASTINGPERFORMED BY: langtaojinChelsea Hospital6370 [facility] [id number] (17421) ALT (SGPT) 24 [iU]/L (Normal) Range: 0-32 [...] Glucose, Serum 109 mg/dL (Abnormal) Range: 65-99 07-Wov-777902:46 CBC, PLATELETS & AUT DIFF Comments: PATIENT NOT FASTINGPERFORMED BY: [facility] Clespr4841 [facility] [id number] Information: [id number], 596146 (14215) Immature Grans (Abs) 0.0 {x10E3/uL} (Normal) Range: [...] (Normal) Range: 3.4-10.8 :23 HgA1C , Office (02673) HgA1C , Office 5.4 % (Normal) Range: 4.6 - 7.1 :16 CBC-Complete Blood Cnt No Diff Comments: [facility] [address] [place], [address] MPV 8.8 fL (Normal) Range: [...] :16 Serum Creatinine AND GFR Comments: [facility] [address] [place], [place], [id number] Estimated CRCL 27.75 ml/min (Normal) EST GFR - AA 37 mL/min (Abnormal) Comments: GFR Calc EST GFR 30 mL/min (Abnormal) Comments: Non- GFR Calc CREAT,SERUM 1.77 mg/dL (Abnormal) Range: 0.55-1.20 Comments: The validity of the calculated GFR AND GFRAA in patients over70 years has not been determined. Clinical correlation isessential. :15 Bedside Glucose Comments: [facility] [address] [place], [place] [address] BEDSIDE GLU 128 mg/dL (Abnormal) Range: 70-110 Comments: Policy and Physicians Orders followedMANAGEMENT OF PATIENT CARE PER NURSING PROTOCOL HYSTERECTOMY SPECIMEN See Note (Normal) Comments: [facility] [address] [place], [address] :39 Comments: Patient: ELIZABETH TORO : 1950 (65/F) Acct Num: [id number] Phys: Gonsalo PROCTOR,Gm Unit Num: [id number] Loc: MS1 TA460-1 Specimen: [id number] Received: 06/22/161336 Spec Ty pe: HYSTERECT TISSUES TISSUES: COMMENT Please make reference to previous specimen () endometrial biopsy with diagnosis of consistent with atrophic endometrium and ([id number]) e ndometrium andpolyp, excision with diagnosis of [...] measures 1.2 x 0.7 x 0.6 cm. Reinforcing Steel Erector sections are submitted inten cassettes as follows: [...] tube and ovary. / Sridevi 06/22/16 TC:1 CPT:00422 HEADER OPERATION: Lap robotic hysterectomy, BSO PRE-OP [...] Signed Sivakumar Mallory 06/23/16 <signature on file> 96-Kvz-95196:31 Bedside Glucose Comments: [facility] [address] [place] [address] BEDSIDE GLU 89 mg/dL (Normal) Range: 70-110 Comments: Physician Notified VBRBMANAGEMENT OF PATIENT CARE PER NURSING PROTOCOL 98-Poc-890704:31 CBC-Complete Blood Cnt No Diff Comments: [facility] [address] [place], [place], [address] MPV 10.1 fL (Normal) Range: 6.2-12.0 PLT [...] 4.2-5.4 WBC 7.6 K/mm3 (Normal) Range: 4.4-11.0 99-Kat-402756:31 Comprehensive Metabolic Profil Comments: [facility] [address] [place], [place], [address] GAP 8 (Normal) Range: 5-15 CO2 24.0 [...] (Normal) Range: 70-110 :31 Hemoglobin A1c Comments: [facility] [address] [place], [id number] HGB A1C 5.6 % (Normal) Range: 4.2-6.3 :31 Partial Thromboplast Time Comments: [facility] [address] [place], [id number] PTT 27.7 s (Normal) Range: 24.1-36.2 :31 Prothrombin Time w/INR Comments: [facility] [address] [place], [address] INR 1.1 (Normal) PROTIME 13.4 s (Normal) Range: 11.7-14.9 :31 Thyroid Stim Hormone (TSH) Comments: [facility] [address] [place], [address] TSH 2.46 {uIU/mL} (Normal) Range: 0.358-3.74 :31 Type AND Screen Comments: Surgery Date: 06/22/16Date of Last Transfusion (if within last 3 months) NHx of Preganancy in last 3 Months NoEver experience any problems with transfusion(s)? NHx of Transfusion in last 3 Months N Reason for Type AND Screen/Red Cells: SURGERYTime: 0600SURGICAL PROCEDURE: [facility] [address]iq[address] [place], [address] Antibody Screen NEGATIVE (Normal) BLOOD TYPE GEL A NEGATIVE (Normal) 52-Toz-207505:28 Comprehensive Metabolic Profil Comments: Order Date: 06/10/16Order Date: 06/10/16[facility] [address] [place], [id number] GAP 5 (Normal) Range: 5-15 CO2 28.0 [...] 7-18 GLU 79 mg/dL (Normal) Range: 70-110 69-Hjs-033111:58 CBC W/Diff, Automated Comments: [facility] [address] [place], [address] Absolute Lymph 2.98 {X10_3/ul} (Normal) Range: 0.83-4.51 [...] 4.2-5.4 WBC 8.7 K/mm3 (Normal) Range: 4.4-11.0 17-Kth-178445:58 Comprehensive Metabolic Profil Comments: Is Patient Taking Vitamins or Folic Acid Supplements? [facility] [address]sl[address] [place], [place], [address] GAP 8 (Normal) Range: 5-15 CO2 29.0 [...] 7-18 GLU 95 mg/dL (Normal) Range: 70-110 52-Nin-097530:58 Erythrocyte Sed Rate Comments: [facility] [address] [place], [address] SED RATE 25 mm/h (Normal) Range: 0-30 61-Kez-753076:58 Folates, (Folic Acid) Comments: Is Patient Taking Vitamins or Folic Acid Supplements? [facility] [address] [place], [place], [address] FOLATES 9.60 ng/mL (Normal) Range: 3.1-17.5 69-Sng-845718:58 Thyroid Stim Hormone (TSH) Comments: Is Patient Taking Vitamins or Folic Acid Supplements? [facility] [address] [place], [address] TSH 2.58 {uIU/mL} (Normal) Range: 0.358-3.74 60-Hex-439196:58 Vitamin B12 543 pg/mL (Normal) Comments: [facility] [address] [place], [address] Range: 211-911 51-Zxk-805682:07 Urinalysis, Office (16686) UA - LEUKOCYTE ESTERASE Trace (Normal) UA - NITRITE Negative (Normal) URINE UROBILINGN SHARIFA TIMED Normal mg/dL (Normal) UA - PROTEIN Negative mg/dL (Normal) UA - PH 6.5 (Normal) UA - BLOOD Hemolyzed Trace (Normal) UA - SPECIFIC GRAVITY 1.005 (Normal) UA - KETONES Negative mg/dL (Normal) UA - BILIRUBIN Negative (Normal) UA - GLUCOSE Negative (Normal) 06-Dqt-377157:04 URINE VERÓNICA CULTURE-SHARIFA COL Comments: PATIENT NOT FASTINGPERFORMED BY: EMIL [facility] [address]zlij[address] [place] [id number] Information: SRC:[facility] [id number] COUNT (83509) Antimicrobial MIHEAD (Normal) Comments: S = Susceptible; [...] (Abnormal) Urine Final report Culture,Comprehensive (Abnormal) EGD ([facility]) See Note (Normal) Comments: [facility] [address] [place], [address]:04 Comments: Patient: ELIZABETH TORO : 1950 (65/F) Acct Num: [id number] Phys: Junior Pena Unit Num: [id number] Loc: LABSPEC Specimen: [id number] Received: 04/21/161637 Spec Type: EGD BIOPSY TISSUES [...] in one cassette. / Sridevi 04/22/16 TC:3 CPT:94655 HEADER OPERATION: EGD with biopsy PRE-OP DIAGNOSIS: Dysphagia TISSUE SUBMITTED: Esophageal biopsy, R/O EE MICROSCOPIC DESCRIP TION Slides are reviewed. MICROSCOPIC DIAGNOSIS Esophageal biopsy: Fragments of squamous epithelium with mild chronic inflammation. See comment. Sridevi 04/23/16 Signed Sivakumar Mallory 04/23/16 <signature on file> CERVICAL See Note (Normal) Comments: [facility] [address] [place], [address]:15 Comments: Patient: ELIZABETH TORO : 1950 (65/F) Acct Num: [id number] Phys: Gonsalo PROCTOR,[facility] Unit Num: [id number] [place] [facility] [place] Specimen: [id number] Received: 04/13/161335 Spec Type: CER V TISSUES [...] one cassette. / AM: 04/13/16 TC:5 CPT: 09727 x 2 HEADER OPERATION: Hysteroscopy, diagnostic, D AND C PRE-OP DIAGNOSIS: Postmenopausal bleeding TISSUE SUBMITTED: A - Endocervical curettings, B - Endometrial curettings and polyp [facility] DES[facility] Slides are reviewed. MICROSCOPIC DIAGNOSIS A. Endocervix, curettings: Strips of benign superficial endocervix. Rare strips of benign superficial ectocervix. B. Endom etrium and polyp, excision: Benign endometrial polyp with simple cystic hyperplasia without atypia. Scant strips of benign superficial endometrium. AM: 04/14/16 Signed Ras Easley 04/14/16 <signature on file> 99-Yup-88308:04 Bedside Glucose Comments: [facility] [address] [place] [address] BEDSIDE GLU 98 mg/dL (Normal) Range: 70-110 Comments: No Action RequiredMANAGEMENT OF PATIENT CARE PER NURSING PROTOCOL :08 CBC-Complete Blood Cnt No Diff Comments: [facility] [address] [place], [address] MPV 9.4 fL (Normal) Range: [...] 4.4-11.0 :08 Comprehensive Metabolic Profil Comments: [facility] [address] [place], [address] GAP 8 (Normal) Range: 5-15 [...] 70-110 :08 Partial Thromboplast Time Comments: [facility] [address]le[address] [place], [address] PTT 29.8 s (Normal) Range: 24.1-36.2 :08 Prothrombin Time w/INR Comments: [facility] [address]emxi[address] [place], [address] INR 1.1 (Normal) PROTIME 13.6 s (Normal) Range: 11.7-14.9 :08 Type AND Screen Comments: Surgery Date: 04/13/16Date of Last Transfusion (if within last 3 months) NHx of Preganancy in last 3 Months NoEver experience any problems with transfusion(s)? NHx of Transfusion in last 3 Months N Reason for Type AND Screen/Red Cells: SURGERYTime: 1015SURGICAL PROCEDURE: [facility] [address]hedkjusp35[address] [place], [address] Antibody Screen NEGATIVE (Normal) BLOOD TYPE GEL A NEGATIVE (Normal) ENDOMETRIAL See Note (Normal) Comments: [facility] [address]ak[address] [place], [address] 6:00 BX/CURETTINGS Comments: Patient: ELIZABETH TORO : 1950 (65/F) Acct Num: [id number] Phys: Gonsalo PROCTOR,[facility] Unit Num: [id number] Loc: LABSPEC Specimen: [id number] Received: 03/26/16 - 1600 Spec Type: ENDOM [...] in one cassette. / AM:stormy 03/27/16 TC:4 CPT:73983 HEADER OPERATION: Endometrial biopsy PRE-OP DIAGNOSIS: N95.0 TISSUE SUBMITTED: EMB MICROSCOPIC DESCRIPTION Slides are r sharathiewed. MICROSCOPIC DIAGNOSIS Endometrial biopsy: Scant strips of benign endometrial epithelium, consistent with atrophic endometrium. Fragments of benign endocervical epithelium and mucous. SJ:stormy 03/31/16 Signed Sivakumar Mallory 03/31/16 <signature on file> 23-Iyk-218898:00 PAP I-G w/ Reflex to HR Comments: CYTOLOGY INFORMATION:- CLINICAL INFORMATION: POSTMENOPAUSAL- DATE LMP/MENOPAUSE: MENOPAUSE- COLLECTION VIAL: Thin Prep Vial- SEMICONDUCTORS WAFER BREAKER SOURCE: CERVICAL/ENDOCERVICAL- COLLECTION TECHNIQUE: BRUSH/ SPATULASpeci HPV men Comment: [id number] Comment: No. of containers..01 CYTYC Thin Prep VialLabCorp (refer to report for specific site)refer to report for address and phone number HPV RFLX Comment (Normal) Comments: The HPV DNA reflex criteria were not met with this specimenresult therefore, no HPV testing was performed.Performed at: [address] [place] [id number] Director: Annamaria Menezes MD, Phone: [phone] PAPSMR Comment (Normal) Comments: The Pap smear [...] system. PERFORM Comment (Normal) Comments: Adeline Singleton, Web Knitter (ASCP) ADEQ Comment (Normal) Comments: Satisfactory for evaluation. DIAGN Comment (Normal) Comments: NEGATIVE FOR INTRAEPITHELIAL LESION AND MALIGNANCY. 32-Qgj-88125:20 Urinalysis, Complete Comments: How was Urine Obtained? RACE CAR MECHANIC TO SPECIFYThe [facility] [address]qt[address] [place], [address] MUCUS, URINE 0 SEEN {/hpf} [...] (Normal) CLARITY Clear (Normal) COLOR Straw (Normal) 11-Vkr-235940:50 Basic Metabolic Profile (BMP) Comments: [facility] [address] [place], [address] GAP 7 (Normal) Range: 5-15 [...] <126 mg/dLsuggests IMPAIRED HOMEOSTASIS per A.D.A. criteria. 53-Spp-383189:50 CBC W/Diff, Automated Comments: [facility] [address]fs[address]ff[address] [place], [address] Absolute Lymph 3.53 {X10_3/ul} (Normal) Range: 0.83-4.51 [...] K/mm3 (Normal) Range: 4.4-11.0 :02 Rapid Flu (74045 x 2) Influenza A Ag negative (Normal) 7-Emx-568651:31 SJOGREN ANTIBOIDIES Comments: PATIENT NOT FASTINGPERFORMED BY: LabCoSt. Mary's HospitalVgxukt7672 [facility] [id number] Information: [id number] (ANTI-SS-A/ANTI-SS-B) (23845) Sjogren's Anti-SS-B <0.2 {AI} (Normal) Range: 0.0-0.9 Sjogren's Anti-SS-A <0.2 {AI} (Normal) Range: 0.0-0.9 :28 Rapid Strep Test, Office (93348) Rapid Strep Test, Office Negative (Normal) 7-Giq-918859:37 Throat Culture (69374) Comments: PATIENT NOT FASTINGPERFORMED BY: [facility]6370 [facility] [id number] Information: SRC:THRT [id number] Result 1 BETAGB (Abnormal) Comments: Beta hemolytic [...] 2011) Upper Respiratory Culture Final report (Abnormal) 0-Bxx-146343:45 Basic Metabolic Profile (BMP) Comments: 'TROP' Serial specimen #1, #2, #3, or #4: 1W[facility] [address]jbvgtci[address] [place], [place], [address] GAP 9 (Normal) Range: 5-15 CO2 23.0 [...] 7-18 GLU 92 mg/dL (Normal) Range: 70-110 5-Hno-575032:45 CBC W/Diff, Automated Comments: [facility] X[address]ct[address]krnp[address] [place], [address] Absolute Lymph 2.03 {X10_3/ul} (Normal) Range: 0.83-4.51 [...] specimen #1, #2, #3, or #4: [address] [place] [address] Wxczcrmdvr2233 [facility] [place], [address] TSH 1.50 {uIU/mL} (Normal) Range: 0.358-3.74 :45 Troponin-I Comments: 'TROP' Serial specimen #1, #2, #3, or #4: [address] [place] [address] [facility] Kart[address]. [place], [place], [address] TROPONIN-I < 0.02 ng/mL (Normal) Comments: TROPONIN-I EXPECTED VALUES <0.05 NEGATIVE 0.06 - 0.59 AT RISK OF IN > OR = 0.60 SUGGEST IN 49-Pqq-36753:53 Pap IG (Image Comments: Source.............Cervical;EndocervicalNo. of containers..01 CYTYC Thin Prep VialPATIENT NOT FASTINGPERFORMED BY: =G [facility] [address] [id number] BY: WB L Guided) [facility] [address] [id number] Note: PAPSMR (Normal) Comments: The Pap smear [...] of partially obscuring exudate are present.Z00.00Adeline Singleton Web Knitter (ASCP) :01 HgA1C , Office (14805) HgA1C , Office 5.9 % (Normal) Range: 4.6 - 7.1 :00 Blood Glucose , Office (66560) Blood Glucose , Office 126 (Normal) :53 Thin Prep Pap Comments: Source.............Cervical;EndocervicalNo. of containers..01 CYTYC Thin Prep VialPATIENT NOT FASTINGPERFORMED BY: =G [facility] Goetrcgtfb544 [facility] [id number] BY: SARAY Jose (52599) [facility] Yanzhumbnt534 [facility] [id number] Information: [id number] Age Gdln ACOG Testing AGE4 (Normal) Comments: <21 or >65 or no age provided :34 METABOLIC PANEL, Comments: PATIENT WAS FASTINGPERFORMED BY: EMIL [facility] Tdbsnt5099 [facility] [id number] Information: [id number] COMPREHENSIVE (13460) ALT (SGPT) 18 [iU]/L (Normal) Range: 0-32 [...] 83 mg/dL (Normal) Range: 65-99 :34 CALCIFIDIOL (93166) VIT D 25 Comments: PATIENT WAS FASTINGPERFORMED BY: [facility]6370 [facility] [id number] Vitamin D, 25-Hydroxy 59.6 ng/mL (Normal) Range: 30.0-100.0 Comments: Vitamin D deficiency has been defined by the [place] ofUniversity Hospitals Tripoint Medical Centercine and an Endocrine Society practice guideline as alevel of serum 25-OH vitamin D less than 20 ng/mL (1,2).The Endocrine Society went on to further define vitamin Dinsufficiency as a level between 21 and 29 ng/mL (2).1. IOM ([place] of Medicine). 2010. Dietary reference intakes for calcium and D. [place]: The National Academies Press.2. Azael MF, Leslee NC, Hillary PHILLIPS, et al. Evaluation, treatment, and prevention of vitamin D deficiency: an Endocrine Society clinical practice guideline. JCEM. 2010; 96(7):1911-30. :37 HgA1C , Office (69668) HgA1C , Office 6.1 % (Normal) Range: 4.6 - 7.1 :37 Blood Glucose , Office (75666) Blood Glucose , Office 107 (Normal) :27 TSH (THYROID STIMULATING Comments: PATIENT WAS FASTINGPERFORMED BY: [facility]6370 [facility] [id number] HORMONE) (11796) TSH 2.480 {uIU/mL} (Normal) Range: 0.450-4.500 :27 CALCIFEDIOL (11389) Comments: PATIENT WAS FASTINGPERFORMED BY: LabCoSt. Mary's HospitalYqqylx6469 [facility] [id number] Vitamin D, 25-Hydroxy 16.7 ng/mL (Abnormal) Range: 30.0-100.0 Comments: Vitamin D deficiency has been defined by the [place] ofMedicine and an Endocrine Society practice guideline as alevel of serum 25-OH vitamin D less than 20 ng/mL (1,2).The Endocrine Society went on to further define vitamin Dinsufficiency as a level between 21 and 29 ng/mL (2).1. IOM ([place] of Medicine). 2010. Dietary reference intakes for calcium and D. [place]: The National Academies Press.2. Azael MF, Leslee NC, Hillary PHILLIPS, et al. Evaluation, treatment, and prevention of vitamin D deficiency: an Endocrine Society clinical practice guideline. JCEM. 2010; 96(7):1911-30. :27 LIPID PANEL (94664) Comments: PATIENT WAS FASTINGPERFORMED BY: [facility]6370 [facility] [id number] LDL/HDL Ratio 1.2 {ratio_units} (Normal) Range: 0.0-3.2 [...] COMPREHENSIVE Comments: PATIENT WAS FASTINGPERFORMED BY: EMIL [employer] Ubuoga9479 [facility] [id number] (27074) ALT (SGPT) 19 [iU]/L (Normal) Range: 0-32 [...] MANUAL Comments: PATIENT WAS FASTINGPERFORMED BY: EMIL Orsus SolutionsLovelace Women's HospitalXdzwgx8153 [facility] [id number] Information: [id number] DIFF (16265) Immature Grans (Abs) 0.0 {x10E3/uL} (Normal) Range: [...] 3.77-5.28 WBC 7.0 {x10E3/uL} (Normal) Range: 3.4-10.8 49-Ngl-907098:31 CREATININE CLEARANCE Comments: PATIENT NOT FASTINGPERFORMED BY: LabCoSt. Mary's HospitalJjogho3921 [facility] [id number] Information: [id number] START @9AM FINISH 01/28/15@9 AM (32077) Creatinine Clearance 53 mL/min (Abnormal) Range: 88-128 [...] Hour Urine Comments: PATIENT NOT FASTINGPERFORMED BY: langtaojinI-70 Community HospitalYdceeh1561 [facility] [id number] (11045) Prot,24hr calculated 357.5 {mg/24_hr} (Abnormal) Range: 30.0-150.0 Protein,Total,Urine 13.0 mg/dL (Normal) Range: 0.0-15.0 :28 HgA1C , Office (90065) HgA1C , Office 5.9 % (Normal) Range: 4.6 - 7.1 :28 Blood Glucose , Office (22035) Blood Glucose , Office 136 (Normal) :53 TSH (00890) Comments: PATIENT WAS FASTINGPERFORMED BY: langtaojinChelsea Hospital6370 [facility] [id number] TSH 4.370 {uIU/mL} (Normal) Range: 0.450-4.500 :53 MICROALBUMIN: CREATININE RATIO Comments: PATIENT WAS FASTINGPERFORMED BY: [facility]6370 [facility] [id number] (97292) AND (70128) Microalb/Creat Ratio 5.0 {mg/g_creat} (Normal) Range: 0.0-30.0 Microalbumin, Urine 4.5 ug/mL (Normal) Range: 0.0-17.0 Creatinine, Urine 90.5 mg/dL (Normal) Range: 15.0-278.0 :53 METABOLIC PANEL, COMPREHENSIVE Comments: PATIENT WAS FASTINGPERFORMED BY: langtaojinChelsea Hospital6370 [facility] [id number] (98661) ALT (SGPT) 20 [iU]/L (Normal) Range: 0-32 [...] mg/dL (Abnormal) Range: 65-99 :53 LIPID PANEL (18868) Comments: PATIENT WAS FASTINGPERFORMED BY: LabCoSt. Mary's HospitalVabfas8521 [facility] [id number] LDL/HDL Ratio 1.4 {ratio_units} (Normal) Range: 0.0-3.2 [...] DIFF WBC Comments: PATIENT WAS FASTINGPERFORMED BY: Orsus SolutionsSt. Mary's HospitalVwrvno5395 [facility] [id number] Information: [id number] (78757) Immature Grans (Abs) 0.0 {x10E3/uL} (Normal) Range: [...] 7.8 {x10E3/uL} (Normal) Range: 3.4-10.8 :53 CALCIFIDIOL (71185) VIT D 25 Comments: PATIENT WAS FASTINGPERFORMED BY: Or[facility] SolutionsSt. Mary's HospitalPqlhtz2076 [facility] [id number] Vitamin D, 25-Hydroxy 22.5 ng/mL (Abnormal) Range: 30.0-100.0 Comments: Vitamin D deficiency has been defined by the [place] ofMedicine and an Endocrine Society practice guideline as alevel of serum 25-OH vitamin D less than 20 ng/mL (1,2).The Endocrine Society went on to further define vitamin Dinsufficiency as a level between 21 and 29 ng/mL (2).1. IOM ([place] of Medicine). 2010. Dietary reference intakes for calcium and D. [place]: The National Academies Press.2. Azael MF, Leslee LEMON, Hillary PHILLIPS, et al. Evaluation, treatment, and prevention of vitamin D deficiency: an Endocrine Society clinical practice guideline. JCEM. 2010; 96(7):1911-30. :22 HgA1C , Office (68074) HgA1C , Office 6.0 % (Normal) Range: 4.6 - 7.1 :22 Blood Glucose , Office (98915) Blood Glucose , Office 132 (Normal) :27 Blood Glucose , Office (28891) Blood Glucose , Office 114 (Normal) :27 HgA1C , Office (94262) HgA1C , Office 5.9 % (Normal) Range: 4.6 - 7.1 :00 Basic Metabolic Panel (8) Comments: PATIENT NOT FASTINGPERFORMED BY: CB [facility] Gorguo8652 [facility] [id number] BY: BN [facility] [address] [id number] Calcium, Serum 9.8 mg/dL (Normal) Range: 8.6-10.2 [...] 287 {mOsmol/kg} Comments: PATIENT NOT FASTINGPERFORMED BY: J. Hilburn Swjpgm8701 [facility] [id number] BY: langtaojin[address] [id number] 00 (Normal) Range: 280-301 : Osmolality, Urine 259 {mOsmol/kg} Comments: PATIENT NOT FASTINGPERFORMED BY: J. Hilburn Qnkizq4426 [facility] [id number] BY: [employer] [id number] 00 (Normal) Comments: 24 hr : 300 - 900 Random: 50 - 1400 After 12hr fluid restriction: >850 : Sodium, Urine 11 mmol/L (Normal) Comments: PATIENT NOT FASTINGPERFORMED BY: J. Hilburn Ijyosy2464 [facility] [id number] BY: langtaojin[address] [id number] 00 9-Xwt-984749:06 Metabolic Panel, Basic Comments: PATIENT NOT FASTINGPERFORMED BY: J. Hilburn Ihzvcg7669 [facility] [id number] Information: [id number] (16648) Calcium, Serum 9.9 mg/dL (Normal) Range: 8.6-10.2 [...] <0.05 NEGATIVE0.06 - 0.59 AT RISK OF IN> OR = 0.60 SUGGEST IN :34 TSH 2.32 {uIU/mL} (Normal) Comments: 'TROP' Serial specimen #1, #2, #3, or #4: 1 Range: 0.358-3.74 01-May-20140:00 Microscopic Examination Comments: PATIENT WAS FASTINGPERFORMED BY: LabCo Dlyfub0582 [facility] [id number] Bacteria Few (Normal) Mucus Threads Present (Normal) Epithelial Cells (non renal) 0-10 {/hpf} (Normal) Range: 0 - 10 RBC 0-2 {/hpf} (Normal) Range: 0 - 2 WBC 11-30 {/hpf} (Abnormal) Range: 0 - 5 76-Uej-468358:15 TSH (31075) Comments: PATIENT WAS FASTINGPERFORMED BY: [facility] Fdrbem1461 [address] [place] [id number] TSH 3.310 {uIU/mL} (Normal) Range: 0.450-4.500 52-Ntj-748673:15 CALCIFIDIOL (73469) VIT D 25 Comments: PATIENT WAS FASTINGPERFORMED BY: [facility] Gjhefh0291 [address] [facility] [place] [id number] Vitamin D, 25-Hydroxy 35.7 ng/mL (Normal) Range: 30.0-100.0 Comments: Vitamin D deficiency has been defined by the [place] ofUniversity Hospitals Tripoint Medical Centercine and an Endocrine Society practice guideline as alevel of serum 25-OH vitamin D less than 20 ng/mL (1,2).The Endocrine Society went on to further define vitamin Dinsufficiency as a level between 21 and 29 ng/mL (2).1. IOM ([place] of Medicine). 2010. Dietary reference intakes for calcium and D. [place]: The National Academies Press.2. Azael MF, Leslee NC, Hillary PHILLIPS, et al. Evaluation, treatment, and prevention of vitamin D deficiency: an Endocrine Society clinical practice guideline. JCEM. 2010; 96(7):1911-30. 24-Nmf-126302:15 URINALYSIS, W/ MICRO (75615) Comments: PATIENT WAS FASTINGPERFORMED BY: [facility] Ulbcmz4410 [address] [facility] [place] [id number] Microscopic Examination See below: (Normal) Nitrite, Urine Positive (Abnormal) Bilirubin Negative (Normal) Urobilinogen,Semi-Qn 0.2 mg/dL (Normal) Range: 0.0-1.9 Ketones Negative (Normal) Occult Blood Negative (Normal) Glucose Negative (Normal) Protein Negative (Normal) Appearance Clear (Normal) WBC Esterase 2+ (Abnormal) pH 6.5 (Normal) Range: 5.0-7.5 Urine-Color Yellow (Normal) Specific Alexander 1.015 (Normal) Range: 1.005-1.030 23-Rys-327192:15 METABOLIC PANEL, COMPREHENSIVE Comments: PATIENT WAS FASTINGPERFORMED BY: Or[employer] SolutionsLovelace Women's HospitalTegbjg3015 [facility] [id number] (91532) ALT (SGPT) 19 [iU]/L (Normal) Range: 0-32 [...] Glucose, Serum 118 mg/dL (Abnormal) Range: 65-99 78-Yuq-703913:15 LIPID PANEL (96998) Comments: PATIENT WAS FASTINGPERFORMED BY: Orsus SolutionsSt. Mary's HospitalMgdcht6212 [facility] [id number] LDL/HDL Ratio 1.7 {ratio_units} (Normal) Range: 0.0-3.2 LDL Cholesterol Calc 90 mg/dL (Normal) Range: 0-99 VLDL Cholesterol Hillary 33 mg/dL (Normal) Range: 5-40 HDL Cholesterol 53 mg/dL (Normal) Comments: According to ATP-III Guidelines, HDL-C >59 mg/dL is considered anegative risk factor for CHD. Triglycerides 166 mg/dL (Abnormal) Range: 0-149 Cholesterol, Total 176 mg/dL (Normal) Range: 100-199 32-Haa-615527:15 CBC WITH MANUAL DIFF Comments: PATIENT WAS FASTINGPERFORMED BY: LabCoSt. Mary's HospitalQrqdqt5247 [facility] [id number] Information: [id number] ([id number]) Immature Grans (Abs) 0.0 {x10E3/uL} (Normal) Range: [...] 3.77-5.28 WBC 7.0 {x10E3/uL} (Normal) Range: 3.4-10.8 67-Ayo-843339:20 Blood Glucose , Office (90532) Blood Glucose , Office 102 (Normal) 84-Fju-190048:20 HgA1C , Office (49307) HgA1C , Office 6.0 % (Normal) Range: 4.6 - 7.1 4-Xea-923908:27 URINE VERÓNICA CULTURE-IDENTIFICATN Comments: PATIENT NOT FASTINGPERFORMED BY: Orsus SolutionsJanet Ville 7760070 [facility] [id number] Information: [id number] (64801) Result 1 NG36 (Normal) Comments: No growth in 36 - 48 hours. Urine Culture,Comprehensive Final report (Normal) 6-Twt-259087:03 URINALYSIS (45857) URINALYSIS neg for all (Normal) 35-Mfi-56207:31 URINE VERÓNICA CULTURE-SHARIFA COL Comments: PATIENT NOT FASTINGPERFORMED BY: [facility] Wjqqvc0272 [facility] [id number] Information: SRC:UR [id number] COUNT ([id number]) Antimicrobial MIHEAD (Normal) Comments: S = Susceptible; [...] Final report Culture,Comprehensive (Normal) :26 Urinalysis, Office (82548) UA - LEUKOCYTE ESTERASE Moderate (Normal) UA - NITRITE Negative (Normal) URINE UROBILINGN SHARIFA TIMED Normal mg/dL (Normal) UA - PROTEIN Negative mg/dL (Normal) UA - PH 5 (Abnormal) UA - BLOOD Hemolyzed Small (Normal) UA - SPECIFIC GRAVITY 1.025 (Normal) UA - KETONES Negative mg/dL (Normal) UA - BILIRUBIN Negative (Normal) UA - GLUCOSE Negative (Normal) :52 LIPID PANEL (27822) Comments: PATIENT WAS FASTINGPERFORMED BY: Orsus SolutionsJanet Ville 7760070 [facility] [id number] Information: [id number] LDL/HDL Ratio 2.1 {ratio_units} (Normal) Range: 0.0-3.2 LDL Cholesterol Calc 111 mg/dL (Abnormal) Range: 0-99 VLDL Cholesterol Hillary 31 mg/dL (Normal) Range: 5-40 HDL Cholesterol 53 mg/dL (Normal) Comments: According to ATP-III Guidelines, HDL-C >59 mg/dL is considered anegative risk factor for CHD. Triglycerides 156 mg/dL (Abnormal) Range: 0-149 Cholesterol, Total 195 mg/dL (Normal) Range: 100-199 :52 HEPATIC FUNCTION PANEL (97240) Comments: PATIENT WAS FASTINGPERFORMED BY: [employer] Viwgsg9355 [facility] [id number] ALT (SGPT) 17 [iU]/L (Normal) Range: 0-32 AST (SGOT) 23 [iU]/L (Normal) Range: 0-40 Alkaline Phosphatase, S 57 [iU]/L (Normal) Range: 39-117 Bilirubin, Direct 0.08 mg/dL (Normal) Range: 0.00-0.40 Bilirubin, Total 0.3 mg/dL (Normal) Range: 0.0-1.2 Albumin, Serum 4.3 g/dL (Normal) Range: 3.6-4.8 Protein, Total, Serum 7.2 g/dL (Normal) Range: 6.0-8.5 :52 CALCIFEDIOL (77402) Comments: PATIENT WAS FASTINGPERFORMED BY: Orsus SolutionsJanet [place] 7760070 [facility] [id number] Vitamin D, 25-Hydroxy 13.8 ng/mL (Abnormal) Range: 30.0-100.0 Comments: Vitamin D deficiency has been defined by the [place] and an Endocrine Society practice guideline as alevel of serum 25-OH vitamin D less than 20 ng/mL (1,2).The Endocrine Society went on to further define vitamin Dinsufficiency as a level between 21 and 29 ng/mL (2).1. IOM ([place] of Medicine). 2010. Dietary reference intakes for calcium and D. [place]: The National Academies Press.2. Azael MF, Leslee LEMON, Hillary PHILLIPS, et al. Evaluation, treatment, and prevention of vitamin D deficiency: an Endocrine Society clinical practice guideline. JCEM. 2010; 96(7):1911-30. 90-Prl-516442:38 Blood Glucose , Office (38302) Blood Glucose , Office 114 (Normal) 69-Jzx-885607:38 HgA1C , Office (33841) HgA1C , Office 5.8 % (Normal) Range: 4.6 - 7.1 46-Zof-404990:23 Urinalysis, Office (07324) UA - BILIRUBIN Negative (Normal) UA - BLOOD Hemolyzed Trace (Normal) UA - GLUCOSE Negative (Normal) UA - KETONES Negative mg/dL (Normal) UA - LEUKOCYTE ESTERASE Small (Normal) UA - NITRITE Negative (Normal) UA - PH 5.0 (Normal) UA - PROTEIN Negative mg/dL (Normal) UA - SPECIFIC GRAVITY 1.025 (Normal) URINE UROBILINGN SHARIFA TIMED Normal mg/dL (Normal) 42-Djz-771239:50 Metabolic Panel, Basic Comments: PATIENT NOT FASTINGPERFORMED BY: [facility] [id number] Information: [id number] (13714) Calcium, Serum 9.9 mg/dL (Normal) Range: 8.6-10.2 [...] Glucose, Serum 84 mg/dL (Normal) Range: 65-99 38-Iah-790377:39 BRAIN WITHOUT CONTRAST Radiology Report See Note [...] Sweeney M.D.July 12, 2013 at 4:19:02 PM [id number] Signed PV/PV If you are the referring physician and would like to consult with theradiologist who provided this interpretation, please contact Petrona molina M.D. at [phone]. If this radiologist is unavailable, youwillbe directed to another radiologist to assist. If you are a patient with a question regarding this report, pleasecontactyour referring physician directly. Professional Interpretation Provided By: [employer], Phone , These documents contain legally protected [...] on 07/12/131621 Sign by: Petrona Meek MD 5-Lyd-925064:39 CRE GFRAA 45 mL/min (Abnormal) GFR 37 [...] in one week; PATIENT NOT FASTINGPERFORMED BY: LabCoSt. Mary's HospitalUkpbxa9728 [facility] [id number] Information: [id number] (77659) Calcium, Serum 9.7 mg/dL (Normal) Range: 8.6-10.2 [...] Glucose, Serum 109 mg/dL (Abnormal) Range: 65-99 66-Ill-85144:50 Metabolic Panel, Basic Comments: PATIENT NOT FASTINGPERFORMED BY: [facility] [id number] Information: [id number] (83053) Calcium, Serum 9.5 mg/dL (Normal) Range: 8.6-10.2 [...] (Abnormal) Range: 65-99 :29 HgA1C , Office (06508) HgA1C , Office 5.7 % (Normal) Range: 4.6 - 7.1 79-Ztm-094226:14 TSH (57452) Comments: PATIENT NOT FASTINGPERFORMED BY: Orsus SolutionsSt. Mary's HospitalDgljtw4940 [facility] [id number] TSH 2.850 {uIU/mL} (Normal) Range: 0.450-4.500 23-Vfz-432989:14 CBC, Platelets & Auto Comments: PATIENT NOT FASTINGPERFORMED BY: EMIL [employer] Zzlxty2550 [facility] [id number] Information: [id number] Diff (70938) Immature Grans (Abs) 0.0 {x10E3/uL} (Normal) Range: [...] 3.77-5.28 WBC 7.5 {x10E3/uL} (Normal) Range: 4.0-10.5 35-Vnw-566744:14 Metabolic Panel, Comprehensive Comments: PATIENT NOT FASTINGPERFORMED BY: LabCoSt. Mary's HospitalEhocnk8289 [facility] [id number] (63654) ALT (SGPT) 19 [iU]/L (Normal) Range: 0-32 [...] Glucose, Serum 105 mg/dL (Abnormal) Range: 65-99 82-Qeu-864668:06 URINE VERÓNICA CULTURE-SHARIFA COL Comments: PATIENT NOT FASTINGPERFORMED BY: [facility] [id number] Information: SRC:UR ADD [id number] COUNT (21589) Antimicrobial MIHEAD (Normal) Comments: S = Susceptible; [...] mL (Normal) Urine Final report Culture,Comprehensive (Normal) 41-Qag-686734:09 Urinalysis, Office (46648) UA - BILIRUBIN Negative (Normal) UA - BLOOD Hemolyzed Moderate (Normal) UA - GLUCOSE Negative (Normal) UA - KETONES Negative mg/dL (Normal) UA - LEUKOCYTE ESTERASE Small (Normal) UA - NITRITE Negative (Normal) UA - PH 6.0 (Normal) UA - PROTEIN Negative mg/dL (Normal) UA - SPECIFIC GRAVITY 1.005 (Normal) URINE UROBILINGN SHARIFA TIMED 2 mg/dL (Normal) 4-Sml-726071:04 Renal function Panel Comments: PATIENT NOT FASTINGPERFORMED BY: [facility] Wciekb0276 [facility] [id number] Information: [id number] (72719) Albumin, Serum 4.1 g/dL (Normal) Range: 3.6-4.8 [...] Glucose, Serum 110 mg/dL (Abnormal) Range: 65-99 16-Brh-039405:22 CALCIFEDIOL (75992) Comments: PATIENT NOT FASTINGPERFORMED BY: CB [facility] Zyvfqs4848 [address] RoadDublin [place] [id number] Vitamin D, 25-Hydroxy 16.7 ng/mL (Abnormal) Range: 30.0-100.0 Comments: Vitamin D deficiency has been defined by the [place] of[facility] Centerc[facility] and an Endocrine Society practice guideline as alevel of serum 25-OH vitamin D less than 20 ng/mL (1,2).The Endocrine Society went on to further define vitamin Dinsufficiency as a level between 21 and 29 ng/mL (2).1. IOM ([place] [employer]). 2010. Dietary reference intakes for calcium and D. [place]: The National Academies Press.2. Azael MF, Leslee LEMON, Hillary PHILLIPS, et al. Evaluation, treatment, and prevention of vitamin D deficiency: an Endocrine Society clinical practice guideline. JCEM. 2010; 96(7):1911-30. 50-Vha-897146:22 MAGNESIUM (93769) Comments: PATIENT NOT FASTINGPERFORMED BY: CB [facility] Odhznx8845 Monk RoadDublin [place] [id number] Magnesium, Serum 2.3 mg/dL (Normal) Range: 1.6-2.6 37-Lqo-584909:22 T4, FREE (THYROXINE) (25787) Comments: PATIENT NOT FASTINGPERFORMED BY: CB [facility] Wnwgxc4714 [address]k RoadDublin [place] [id number] T4,Free(Direct) 1.50 ng/dL (Normal) Range: 0.82-1.77 17-Qra-987334:22 T3, FREE (TRIDOTHYRONINE) (27892) Comments: PATIENT NOT FASTINGPERFORMED BY: CB [facility] Atcetf8203 [address]k RoadDublin [place] [id number] Triiodothyronine,Free,Serum 2.6 pg/mL (Normal) Range: 2.0-4.4 17-Sdx-239609:22 TSH (91429) Comments: PATIENT NOT FASTINGPERFORMED BY: CB [facility] Xhfugs0651 [address] RoadDublin [place] [id number] TSH 1.920 {uIU/mL} (Normal) Range: 0.450-4.500 :22 CBC, Platelets & Auto Comments: PATIENT NOT FASTINGPERFORMED BY: EMIL [facility] [employer] [facility]70 [facility] [id number] Information: [id number] Diff (06776) Immature Grans (Abs) 0.0 {x10E3/uL} (Normal) Range: [...] 3.77-5.28 WBC 8.5 {x10E3/uL} (Normal) Range: 4.0-10.5 95-Vgt-128057:22 Metabolic Panel, Comprehensive Comments: PATIENT NOT FASTINGPERFORMED BY: EMIL [employer]6370 [facility] [id number] (03707) ALT (SGPT) 21 [iU]/L (Normal) Range: 0-32 [...] Glucose, Serum 97 mg/dL (Normal) Range: 65-99 9-Erf-839201:20 METABOLIC PANEL, COMPREHENSIVE Comments: PATIENT WAS FASTINGPERFORMED BY: [facility]6370 [facility] [id number] (95927) ALT (SGPT) 19 [iU]/L (Normal) Range: 0-32 [...] Glucose, Serum 102 mg/dL (Abnormal) Range: 65-99 3-Igj-501031:20 CBC WITH MANUAL DIFF Comments: PATIENT WAS FASTINGPERFORMED BY: [facility] Hmeuud7333 [facility] [id number] Information: [id number] (00602) Immature Grans (Abs) 0.0 {x10E3/uL} (Normal) Range: [...] 3.77-5.28 WBC 7.4 {x10E3/uL} (Normal) Range: 3.4-10.8 4-Gms-948800:20 LIPID PANEL (57000) Comments: PATIENT WAS FASTINGPERFORMED BY: [employer] [facility] [id number] LDL/HDL Ratio 2.0 {ratio_units} (Normal) Range: 0.0-3.2 LDL Cholesterol Calc 109 mg/dL (Abnormal) Range: 0-99 VLDL Cholesterol Hillary 35 mg/dL (Normal) Range: 5-40 HDL Cholesterol 54 mg/dL (Normal) Comments: According to ATP-III Guidelines, HDL-C >59 mg/dL is considered anegative risk factor for CHD. Triglycerides 175 mg/dL (Abnormal) Range: 0-149 Cholesterol, Total 198 mg/dL (Normal) Range: 100-199 0-Xdk-994507:20 TSH (24807) Comments: PATIENT WAS FASTINGPERFORMED BY: [employer] Stbohw8715 [facility] [id number] TSH 2.720 {uIU/mL} (Normal) Range: 0.450-4.500 53-Pzu-907954:22 HgA1C , Office (07055) HgA1C , Office 6.0 % (Normal) Range: 4.6 - 7.1 98-Cxa-014873:22 Blood Glucose , Office (35326) Blood Glucose , Office 249 (Normal) Comments: has eaten in last 2h 50-Gby-598755:20 CHEST, PA AND LATERAL Radiology Report See [...] Signed:Anibal Lan M.D.November 022012 at 8:14:34 AM [id number] Signed GP/GP If you are the referring physician and would like to consult with theradiologist who provided this interpretation, please contact Eliecer Bui M.D. at [phone]. If this radiologist is unavailable, youwill be directed to another radiologist to assist. If you are a patient with a question regarding this report, pleasecontactyour referring physician directly. Professional Interpretation Provided By: [employer], Phone , These documents contain legally protected [...] 01/22/13 0818 Sign by: Anibal Lan MD 38-Fsj-25874:19 VERÓNICA CULTURE-OTHER (42988) Comments: PATIENT NOT FASTINGPERFORMED BY: [employer] Fmabhb4419 [facility] [id number] Information: SRC:THRT [id number] Result 1 RRF (Normal) Comments: Routine respiratory duyen Upper Respiratory Culture Final report (Normal) 09-Wlc-410829:33 Rapid Strep Test, Office (84501) Rapid Strep Test, Office Negative (Normal) 6-Cvo-314245:50 Celiac Disease Comprehensive Comments: PERFORMED BY: Sxbbm [facility] [id number] Immunoglobulin A, Qn, 364 mg/dL (Normal) Range: [...] Potassium, Serum 4.0 mmol/L Comments: PERFORMED BY: [facility] [facility]6370 [facility] [id number] 4:50 (Normal) Range: 3.5-5.2 6-Yax-753817:30 CBCMD ANC 3.7 3/uL (Normal) Range: 2.0-7.7 [...] 4.2-5.4 WBC 7.0 {k/mm3} (Normal) Range: 4.4-11.0 3-Xkj-281648:30 CMP GAP 11 (Normal) Range: 5-15 CO2 [...] 7-18 GLU 93 mg/dL (Normal) Range: 70-110 9-Unu-412002:30 LIPID LDL 108 mg/dL (Normal) Range: 0-130 [...] Very High > or = 500 mg/dL 6-Wwt-911490:30 MIACRE MIALB 5.8 mg/L (Normal) tMICROCREAT 9.5 {mg/g_CRE} (Normal) CREU 60.7 mg/dL (Normal) 2-Dsp-343529:30 TSH 0.75 {uIU/mL} (Normal) Range: 0.358-3.74 :54 HgA1C , Office (96876) HgA1C , Office 5.5 % (Normal) Range: 4.6 - 7.1 :54 Blood Glucose , Office (21187) Blood Glucose , Office 116 (Normal) 09-Cvx-781902:26 URINE VERÓNICA CULTURE-SHARIFA COL Comments: PATIENT NOT FASTINGPERFORMED BY: [facility] Imdyev2636 [facility] [id number] Information: SRC:UR [id number] COUNT (47883) Result 1 MUG (Normal) Comments: Mixed urogenital flora50,000-100,000 colony forming units per mL Urine Final report (Normal) Culture,Comprehensive 77-Lrv-030185:46 Urinalysis, Office (73270) UA - BILIRUBIN Small (Normal) UA - BLOOD Hemolyzed Small (Normal) UA - GLUCOSE Negative (Normal) UA - KETONES Small mg/dL (Normal) UA - LEUKOCYTE ESTERASE Moderate (Normal) UA - NITRITE Negative (Normal) UA - PH 6.0 (Normal) UA - PROTEIN Trace mg/dL (Normal) UA - SPECIFIC GRAVITY 1.025 (Normal) URINE UROBILINGN SHARIFA TIMED Normal mg/dL (Normal) 05-Vtn-602446:55 CHEST, PA AND LATERAL Radiology Report See Note (Normal) Comments: PROCEDURE: X-RAY CHEST REASON FOR EXAM: Female, 61 years old. Cough and shortness of breathforone week. TECHNIQUE: PA and lateral views of the chest. COMPARISON: Comparison is made with prior s ilta dated September. FINDINGS: The lungs are hyper [...] radiologist regarding this report, please call our [id number] line @ Dictated on 1518 by Isiah Lan MDranscribed on 11/23/11 161 by ITS IMPORTSign by Anibal Lan MD on 11/23/11 161 Sign by: Anibal Lan MD 06-Mys-29489:51 Urinalysis, Office (03131) UA - BILIRUBIN Negative (Normal) UA - BLOOD Hemolyzed Small (Normal) UA - GLUCOSE Negative (Normal) UA - KETONES Negative mg/dL (Normal) UA - LEUKOCYTE ESTERASE Large (Normal) UA - NITRITE Negative (Normal) UA - PH 7.0 (Normal) UA - PROTEIN Negative mg/dL (Normal) UA - SPECIFIC GRAVITY 1.020 (Normal) URINE UROBILINGN SHARIFA TIMED 2 mg/dL (Normal) :51 HgA1C , Office (36264) HgA1C , Office 6.2 % (Normal) Range: 4.6 - 7.1 :50 Blood Glucose , Office (63874) Blood Glucose , Office 119 (Normal) :55 Urinalysis, Office (47719) UA - BILIRUBIN Negative (Normal) UA - [...] Ultrasound evaluation of the right upper quadrant [facility] with real-time ultrasonography and static grayscale [...] Muscle) 13 {Units} (Normal) Comments: PERFORMED BY: Sxbbm [facility] [id number] :58 Antibody Range: 0-19 Comments: Negative 0 - 19 Weak positive 20 - 30 Moderate to strong positive >30 . Actin Antibodies are found in 52-85% of patients with autoimmune hepatitis or chronic active hepatitis and in 22% of patients with primary biliary cirrhosis. :58 Antinuclear Antibodies Direct Comments: PERFORMED BY: [employer]70 [facility] [id number] GAYATRI Direct Negative (Normal) :5 Ceruloplasmin 31.6 mg/dL (Normal) Comments: PERFORMED BY: [employer] [facility] [id number] Range: 16.0-45.0 :5 Ferritin, Serum 440 ng/mL (Abnormal) Comments: PERFORMED BY: Sxbbm [facility] [id number] Range: 13-150 :58 Hepatitis Panel (4) Comments: PERFORMED BY: Sxbbm [facility] [id number] Hep C Virus Ab 0.1 {s/co_ratio} (Normal) [...] (Normal) Hep A Ab, IgM Negative (Normal) 44-Dqd-46920:58 Iron and TIBC Comments: PERFORMED BY: [facility] [id number] Iron Saturation 37 % (Normal) Range: 15-55 Iron, Serum 96 ug/dL (Normal) Range: 35-155 UIBC 163 ug/dL (Normal) Range: 150-375 Iron Bind.Cap.(TIBC) 259 ug/dL (Normal) Range: 250-450 :58 Platelet Count on Citrated Comments: PERFORMED BY: Sxbbm [facility] [id number] Bld Plt Count, Citrated Bld 216 {X10E3/uL} Range: 140-415 (Normal) 11-Jun-2011 Written Authorization WAR (Normal) Comments: PERFORMED BY: Sxbbm [facility] [id number] 9:58 Comments: Written Authorization Received.Authorization received from [facility] [id number] by Elina Swain :30 HgA1C , Office (23868) HgA1C , Office 6.7 % (Normal) Range: 4.6 - 7.1 :30 Blood Glucose , Office (30524) Blood Glucose , Office 159 (Normal) :15 METABOLIC PANEL, COMPREHENSIVE Comments: PATIENT WAS FASTINGPERFORMED BY: [facility] [facility]6370 [facility] [id number] (76163) ALT (SGPT) 51 [iU]/L (Abnormal) Range: 0-40 [...] mg/dL (Abnormal) Range: 65-99 :15 LIPID PANEL (83330) Comments: PATIENT WAS FASTINGPERFORMED BY: [facility] [id number] LDL/HDL Ratio 1.8 {ratio_units} (Normal) Range: 0.0-3.2 [...] MANUAL DIFF Comments: PATIENT WAS FASTINGPERFORMED BY: [facility] [id number] Information: [id number] (25992) Immature Grans (Abs) 0.0 {x10E3/uL} (Normal) Range: [...] 3.80-5.10 WBC 8.3 {x10E3/uL} (Normal) Range: 4.0-10.5 65-Ubd-068646:26 Hepatic Function Panel (7) Comments: PERFORMED BY: [facility]6370 [facility] [id number] ALT (SGPT) 63 [iU]/L (Abnormal) Range: 0-40 Alkaline Phosphatase, S 63 [iU]/L (Normal) Range: 25-165 AST (SGOT) 53 [iU]/L (Abnormal) Range: 0-40 Bilirubin, Direct 0.13 mg/dL (Normal) Range: 0.00-0.40 Bilirubin, Total 0.4 mg/dL (Normal) Range: 0.0-1.2 Albumin, Serum 4.5 g/dL (Normal) Range: 3.6-4.8 Protein, Total, Serum 7.8 g/dL (Normal) Range: 6.0-8.5 93-Rgl-286062:26 Hepatitis Panel (4) Comments: PERFORMED BY: [facility] [id number] Hep C Virus Ab <0.1 {s/co_ratio} (Normal) [...] (Normal) Hep A Ab, IgM Negative (Normal) 9-Vaz-062459:04 LIVER D BILI 0.11 mg/dL (Normal) Range: 0.00-0.30 T BILI 0.30 mg/dL (Normal) Range: 0.00-1.00 ALK P 57 U/L (Normal) Range: 50-136 ALT 68 U/L (Normal) Range: 12-78 ALB 4.0 g/dL (Normal) Range: 3.4-5.0 AST 53 U/L (Abnormal) Range: 15-37 T PROT 8.0 g/dL (Normal) Range: 6.4-8.2 :59 HgA1C , Office (24463) HgA1C , Office 6.6 % (Normal) Range: 4.6 - 7.1 :59 Blood Glucose , Office (42437) Blood Glucose , Office 124 (Normal) :17 HgA1C , Office (79860) HgA1C , Office 6.4 % (Normal) Range: 4.6 - 7.1 :17 Blood Glucose , Office (74966) Blood Glucose , Office 141 (Normal) 77-Sfm-002933:17 Hemoglobin Glyclated (HGB A1C) Comments: PATIENT WAS FASTINGPERFORMED BY: [facility]taojinChelsea Hospital6370 [facility] [id number] (16796) Hemoglobin A1c 6.0 % (Abnormal) Range: 4.8-5.6 Comments: Increased risk for diabetes: 5.7 - 6.4 Diabetes: >6.4 Glycemic control for adults with diabetes: <7.0 89-Kvb-030014:17 MICROALBUMIN: CREATININE RATIO Comments: PATIENT WAS FASTINGPERFORMED BY: Orsus SolutionsSt. Mary's HospitalMwrllq1365 [facility] [id number] (45157) AND (56282) Microalb/Creat Ratio 2.9 {mg/g_creat} (Normal) Range: 0.0-30.0 Creatinine, Urine 49.0 mg/dL (Normal) Range: 15.0-278.0 Microalbumin, Urine 1.4 ug/mL (Normal) Range: 0.0-17.0 09-Scn-538603:17 METABOLIC PANEL, COMPREHENSIVE Comments: PATIENT WAS FASTINGPERFORMED BY: langtaojinChelsea Hospital6370 [facility] [id number] (61250) Alkaline Phosphatase, S 61 [iU]/L (Normal) Range: [...] Glucose, Serum 116 mg/dL (Abnormal) Range: 65-99 44-Tsc-303494:17 LIPID PANEL (49383) Comments: PATIENT WAS FASTINGPERFORMED BY: LabCoSt. Mary's HospitalOxuyvu4187 [facility] [id number] LDL/HDL Ratio 2.2 {ratio_units} (Normal) Range: 0.0-3.2 HDL Cholesterol 50 mg/dL (Normal) Comments: According to ATP-III Guidelines, HDL-C >59 mg/dL is considered anegative risk factor for CHD. LDL Cholesterol Calc 109 mg/dL (Abnormal) Range: 0-99 VLDL Cholesterol Hillary 56 mg/dL (Abnormal) Range: 5-40 Cholesterol, Total 215 mg/dL (Abnormal) Range: 100-199 Triglycerides 282 mg/dL (Abnormal) Range: 0-149 :17 CBC WITH MANUAL DIFF (36832) Comments: PATIENT WAS FASTINGPERFORMED BY: Orsus SolutionsSt. Mary's HospitalGxmhqg9777 [facility] [id number] Immature Grans (Abs) 0.0 {x10E3/uL} (Normal) Range: [...] 3.80-5.10 WBC 8.6 {x10E3/uL} (Normal) Range: 4.0-10.5 54-Fxa-776376:57 Folic Acid Serum (41093) Comments: PATIENT NOT FASTINGPERFORMED BY: langtaojinCoSt. Mary's HospitalIgwgwe4491 [facility] [id number] Folate (Folic Acid), Serum 12.6 ng/mL (Normal) Comments: Indeterminate: 2.2 - 3.0Deficient: <2.2 57-Oiz-866960:57 Vitamin B-12 (cyanocobalamin) Comments: PATIENT NOT FASTINGPERFORMED BY: LabCoSt. Mary's HospitalVaevit2993 [facility] [id number] (27710) Vitamin B12 551 pg/mL (Normal) Range: 211-946 52-Psj-553385:57 CBC with manual diff Comments: PATIENT NOT FASTINGPERFORMED BY: LabCoSt. Mary's HospitalCpvnaf2484 [facility] [id number] Information: [id number] (65772) Baso (Absolute) 0.1 {x10E3/uL} (Normal) Range: 0.0-0.2 [...] Comprehensive Comments: PATIENT NOT FASTINGPERFORMED BY: LabCoSt. Mary's HospitalOmempg1222 [facility] [id number] (13298) ALT (SGPT) 18 [iU]/L (Normal) Range: 0-40 [...] mg/dL (Abnormal) Range: 65-99 :57 DRUG ASSAY-LITHIUM (69747) Comments: PATIENT NOT FASTINGPERFORMED BY: [facility]6370 [facility] [id number] [place] (Eskalith), Serum 1.0 mmol/L (Normal) Range: 0.6-1.4 Comments: Detection Limit = 0.1<0.1 indicates None Detected :57 T4, FREE (THYROXINE) (45200) Comments: PATIENT NOT FASTINGPERFORMED BY: [place] 7071570 [facility] [id number] T4,Free(Direct) 1.17 ng/dL (Normal) Range: 0.82-1.77 :57 T3, FREE (TRIDOTHYRONINE) (14794) Comments: PATIENT NOT FASTINGPERFORMED BY: [facility]6370 [facility] [id number] Triiodothyronine,Free,Serum 2.1 pg/mL (Normal) Range: 2.0-4.4 :57 TSH (41768) Comments: PATIENT NOT FASTINGPERFORMED BY: [facility]6370 [facility] [id number] TSH 4.080 {uIU/mL} (Normal) Range: 0.450-4.500 :43 HgA1C , Office (83398) HgA1C , Office 5.3 % (Normal) Range: 4.6 - 7.1 :43 Blood Glucose , Office (24583) Blood Glucose , Office 125 (Normal) :4 [...] 136-145 GLU 84 mg/dL (Normal) Range: 70-110 07-Hwk-465646:42 LI 0.60 mmol/L (Normal) Comments: Therapeutic Range: 0.60 - 1.20 87-Tsu-163841:58 Thin prep Pap Comments: Source.............Cervical;EndocervicalNo. of containers..01 CYTYC Thin Prep VialPATIENT NOT FASTINGPERFORMED BY: Lab[address] [id number] Information: [id number] (96674) Note: PAPSMR (Normal) Comments: The Pap smear [...] atrophy.V 72.31 ; Routine gynecological examinationRita Gonzalez Web Knitter (ASCP) 69-Pzv-254340:00 TSH (02401) Comments: PATIENT NOT FASTINGPERFORMED BY: [facility]6370 [facility] [id number] TSH 3.440 {uIU/mL} (Normal) Range: 0.450-4.500 04-Tet-335761:00 CBC (Auto) ([id number]) Comments: PATIENT NOT FASTINGPERFORMED BY: [facility] [facility] [id number] Information: [id number] Platelets 258 {x10E3/uL} (Normal) Range: 140-415 RDW 13.6 % (Normal) Range: 11.7-15.0 Hematocrit 43.5 % (Normal) Range: 34.0-44.0 MCH 31.6 pg (Normal) Range: 27.0-34.0 MCHC 33.6 g/dL (Normal) Range: 32.0-36.0 MCV 94 fL (Normal) Range: 80-98 Hemoglobin 14.6 g/dL (Normal) Range: 11.5-15.0 RBC 4.61 {x10E6/uL} (Normal) Range: 3.80-5.10 WBC 8.6 {x10E3/uL} (Normal) Range: 4.0-10.5 23-Xgh-782333:00 Metabolic Panel, Basic Comments: PATIENT NOT FASTINGPERFORMED BY: LabCoLovel[facility] HospitalInllcj[address] [id number] ([id number]) Calcium, Serum 9.1 mg/dL (Normal) Range: 8.6-10.2 [...] Glucose, Serum 111 mg/dL (Abnormal) Range: 65-99 61-Vyf-875463:00 DRUG ASSAY-LITHIUM (13059) Comments: all these labs standing order prn; PATIENT NOT FASTINGPERFORMED BY: LabCoSt. Mary's HospitalLkfnwq6892 [facility] [id number] [place] ([place]), Serum 0.9 mmol/L (Normal) Range: 0.6-1.4 Comments: Detection Limit = 0.1<0.1 indicates None Detected 66-Mvu-27827:16 METABOLIC PANEL, COMPREHENSIVE Comments: PATIENT NOT FASTINGPERFORMED BY: EMIL LabCoSt. Mary's HospitalIphxnv9353 [facility] [id number] ([id number]) A/G Ratio 1.3 (Normal) Range: 1.1-2.5 Alkaline [...] MANUAL DIFF Comments: PATIENT NOT FASTINGPERFORMED BY: [facility]6370 [facility] [id number] Information: [id number] ([id number]) Baso (Absolute) 0.1 {x10E3/uL} (Normal) Range: 0.0-0.2 [...] CREATININE RATIO Comments: PATIENT NOT FASTINGPERFORMED BY: [facility]6370 [facility] [id number] ([id number]) AND ([id number]) Microalb/Creat Ratio 6.2 {mg/g_creat} (Normal) Range: 0.0-30.0 Microalbumin, Urine 2.5 ug/mL (Normal) Range: 0.0-17.0 Creatinine, Urine 40.1 mg/dL (Normal) Range: 15.0-278.0 :38 HgA1C , Office (62011) HgA1C , Office 6.6 % (Normal) Range: 4.6 - 7.1 :38 Blood Glucose , Office (36739) Blood Glucose , Office 214 (Normal) 78-Tjf-884583:05 URINE VERÓNICA CULTURE-IDENTIFICATN Comments: PATIENT NOT FASTINGPERFORMED BY: LabCoSt. Mary's HospitalIznsii4573 [facility] [id number] Information: [id number] ([id number]) Antimicrobial MIHEAD (Normal) Comments: S = Susceptible; [...] mL (Normal) Urine Final report (Normal) Culture,Comprehensive 89-Mnn-843028:23 CHEST, PA AND LATERAL (MT) Radiology Report See Note (Normal) Comments: Exam Number: [id number] CLINICAL:58-year-old female with cough, pain and shortness [...] :23 B.pertussisB.parapertussis PCR Comments: PERFORMED BY: ELIESER FlvfMir3940 [facility] [id number] Bordetella parapertussis DNA Negative (Normal) Comments: .This test was developed and its performance characteristics determinedby [employer]. It has not been cleared or approved by theU.S. Food and Drug Administration. The FDA has determined that s uchclearance or approval is not necessary. This test is used for clinicalpurposes. It should not be regarded as investigational or research. Bordetella pertussis DNA Negative (Normal) :50 HgA1C , Office (66654) HgA1C , Office 5.5 % (Normal) Range: 4.6 - 7.1 :50 Blood Glucose , Office (02516) Blood Glucose , Office 90 (Normal) :33 HgA1C , Office (88650) HgA1C , Office 5.6 % (Normal) Range: 4.6 - 7.1 :41 HgA1C , Office (79710) HgA1C , Office 5.5 % (Normal) Range: 4.6 - 7.1 Comments: aw :41 Blood Glucose , Office (89978) Comments: 89 Blood Glucose , Office 89 [...] (Normal) Range: 0.34-4.82 :42 HgA1C , Office (46449) HgA1C , Office 5.4 % (Normal) Range: 4.6 - 7.1 :42 Blood Glucose , Office (30837) Blood Glucose , Office 103 (Normal) :20 [...] T PROT 8.0 g/dL (Normal) Range: 6.4-8.2 71-Eor-758193:20 LIPID CHOL 148 mg/dL (Normal) Comments: <200 [...] mg/dL VLDL 30 mg/dL (Normal) Range: 5-40 70-Oja-138505:20 ROUTINE UA BILIRUBIN URINE SeeNote (Normal) Comments: [...] Report See Note (Normal) Comments: Exam Number: [id number] THYROID ULTRASOUND HISTORYGoiter. There is borderline increase [...] 03, 2007. Reported By: PETRONA REGALADO M.D. 70-Qsv-16713:20 MAMM, UILAT DIAG DIGITAL & CAD Radiology Report See Note (Normal) Comments: Exam Number: [id number] UNILATERAL LEFT DIAGNOSTIC MAMMOGRAPHY CLINICAL STATEMENTLeft breast [...] The mammogramswere also examined with computer-aided detection software([employer] Reported By: REID KRUEGER M.D. 8-Dpv-666915: TSH 0.94 {uIU/mL} Range: 0.34-4.82 50 (Normal) :06 MAMM, BILAT SCRN DIGITAL & CAD Radiology Report See Note (Normal) Comments: Exam Number: [id number] MAMMOGRAM, BILATERAL SCREENING DIGITAL AND CAD HISTORYRoutine [...] was rendered by a radiologist certified under [facility] Quality Standards Act of 1992 (MQSA). The mammograms werealso examined with computer-aided detection software ([employer], [employer] Reported By: PETRONA REGALADO M.D. :05 THYROID (HP) Radiology Report See Note (Normal) Comments: Exam Number: [id number] THYROID ULTRASOUND HISTORYGoiter. High resolution real time [...] 6 months. Reported By: PETRONA REGALADO M.D. 54-Fqg-560875:22 HgA1C , Office (69916) HgA1C , Office 5.9 % (Normal) Range: 4.6 - 7.1 32-Qnn-656515:22 Blood Glucose , Office (08693) Blood Glucose , Office 88 (Normal) Plan [...] II, controlled Stress incontinence, female : Reviewed Religious Education Coordinator Letter Indication: Stress incontinence, female Diabetes mellitus [...] acute Planned Observations VITAMIN B12 AND FOLATES (42410)Indication: Neuropathic pain On: :08 Request Blood Glucose , Office (88593)Indication: Diabetes mellitus type II, controlled On: 21-Xvh-81343:04 Request LIPID PANEL (54039)Indication: Neuropathic pain On: :54 Request Blood Glucose , Office (72827)Indication: Diabetes mellitus type II, controlled On: 02-Nov-20178:55 Request D-Dimer (66809)Indication: Shortness of breath On: 18-Fit-281620:19 Request Metabolic Panel, Comprehensive (98686)Indication: Diabetes mellitus type II, controlled On: 36-Qhc-655295:19 Request Comments: Nov 2017 LIPID PANEL (80092)Indication: Diabetes mellitus type II, controlled On: 07-Tkc-119968:19 Request Comments: Nov 2017 URINALYSIS (95718)Indication: Diabetes mellitus type II, controlled On: 58-Dzh-798930:19 Request Comments: Nov 2017 TSH (44399)Indication: Diabetes mellitus type II, controlled On: 63-Pby-348907:18 Request Comments: Nov 2017 CBC, Platelets & Auto Diff (82236)Indication: Diabetes mellitus type II, controlled On: 40-Ysu-754863:18 Request Comments: Nov 2017 MICROALBUMIN: CREATININE RATIO (86322) AND (83598)Indication: Diabetes mellitus type II, controlled On: 50-Ogt-009922:18 Request Comments: Nov 2017 HgA1C , Office (17530)Indication: Diabetes mellitus type II, controlled On: 59-Ndm-846243:44 Request Anaerobic & Aerobic Culture (52624)Indication: Mouth pain On: 9-Mbz-204754:11 Request Metabolic Panel, Comprehensive (66747)Indication: Chronic kidney disease (CKD), stage I On: 41-Yzo-482071:50 Request Comments: 2 weeks Metabolic Panel, Comprehensive (21561)Indication: Diabetes mellitus type II, controlled On: 54-Ncv-202166:56 Request Comments: today URINALYSIS (32609)Indication: Chronic kidney disease (CKD), stage I On: 83-Coy-374618:52 Request Comments: Jul 2017 MICROALBUMIN: CREATININE RATIO (75977) AND (51121)Indication: Chronic kidney disease (CKD), stage I On: 43-Xkz-118735:52 Request Comments: jul 2017 Lipid Panel (61757)Indication: Hypertension (Renamed from BP (high blood pressure)) On: 54-Jpc-893198:52 Request Comments: Jul 2017 TSH (15415)Indication: Leg weakness On: 31-Kbm-392833:52 Request Comments: Jul 2017 CBC, Platelets & Auto Diff (90285)Indication: Leg weakness On: 80-Jwt-223548:52 Request Comments: jul 2017 METABOLIC PANEL, COMPREHENSIVE (06909)Indication: Weakness On: 49-Roy-955726:55 Request METABOLIC PANEL, COMPREHENSIVE (23955)Indication: Hypokalemia On: :43 Request Comments: STAT SED RATE ERYTHROCYTE (62150)Indication: Weakness On: 10-Zai-234153:29 Request TSH (THYROID STIMULATING HORMONE) (46385)Indication: Unspecified abnormal involuntary movements On: 00-Tjy-860608:17 Request METABOLIC PANEL, COMPREHENSIVE (31405)Indication: Unspecified abnormal involuntary movements On: :17 Request CBC, PLATELETS & AUT DIFF (12133)Indication: Unspecified abnormal involuntary movements On: 19-Fbu-915441:17 Request URINE VERÓNICA CULTURE-IDENTIFICATN (72354)Indication: Weakness On: 66-Zyl-895860:07 Request Blood Glucose , Office (68338)Indication: Unspecified abnormal involuntary movements On: 07-Gex-33473:59 Request VITAMIN B12 AND FOLATES (21928)Indication: Unspecified abnormal involuntary movements On: 71-Ubj-71879:57 Request SPEP (40924)Indication: Elevated serum creatinine On: 62-Sww-622332:31 Request CALCIFIDIOL (44650) VIT D 25Indication: Vitamin D deficiency (Renamed from Avitaminosis D) On: :27 Request TSH (41166)Indication: Hypothyroidism On: : Request MICROALBUMIN: CREATININE RATIO (22611) AND (68416)Indication: Diabetes mellitus type II, controlled On: :27 Request METABOLIC PANEL, COMPREHENSIVE (37738)Indication: Diabetes mellitus type II, controlled On: :27 Request LIPID PANEL (50639)Indication: Diabetes mellitus type II, controlled On: :27 Request CBC with auto diff (37533)Indication: Diabetes mellitus type II, controlled On: :27 Request CALCIFIDIOL (41844) VIT D 25Indication: Vitamin D deficiency (Renamed from Avitaminosis D) On: 92-Dyu-914515:15 Request Comments: in three months (approximately) METABOLIC PANEL, COMPREHENSIVE (68354)Indication: Diabetes mellitus type II, controlled On: 84-Uia-422682:15 Request Comments: in three months (approximately) SODIUM URINE (61825)Indication: Hyponatremia On: :51 Request OSMOLALITY URINE (20515)Indication: Hyponatremia On: :50 Request OSMOLALITY BLOOD (22896)Indication: Hyponatremia On: :50 Request ASSAY, TROPONIN, QUANTITATIVE (aka Troponin I) (78071)Indication: Chest pain On: :40 Request Comments: stat D-Dimer (76178)Indication: Chest pain On: :40 Request Comments: stat TSH (10594)Indication: Chest pain On: :40 Request CBC WITH MANUAL DIFF (02497)Indication: Chest pain On: :40 Request METABOLIC PANEL, COMPREHENSIVE (65884)Indication: Chest pain On: 77-Ber-190511:40 Request URINE EVRÓNICA CULTURE (SHARIFA COL COUNT) (42997)Indication: Dysuria (Renamed from Difficult or painful urination) On: 03-Ham-926924:24 Request Metabolic Panel, Comprehensive (40565)Indication: Hypertension (Renamed from BP (high blood pressure)) On: 81-Itw-238931:56 Request Metabolic Panel, Basic (49831)Indication: Elevated LFTs On: 65-Wfm-977802:16 Request 24 hour urine for Protein (82814)Indication: Elevated serum creatinine On: 41-Dxt-174622:40 Request Comments: recheck in one week CREATININE CLEARANCE (95821)Indication: Elevated serum creatinine On: 02-Iog-451483:39 Request Comments: recheck in one week Blood Glucose , Office (18252)Indication: Diabetes mellitus type II, controlled On: 75-Yuv-60424:29 Request METABOLIC PANEL, COMPREHENSIVE (55031)Indication: Hypokalemia (Renamed from Decreased potassium in the blood) On: 30-Kvx-664768:52 Request MICROALBUMIN: CREATININE RATIO (06523) AND (17580)Indication: Diabetes mellitus type II, controlled On: 74-Zvw-295828:14 Request FLURESCNT ANTIB SCRN EA (26116) celiac profileIndication: Irritable bowel syndrome (Renamed from Functional bowel disease) On: 1-Uef-800407:58 Request IMMUNOASSAY, ANALYTE (NON-INFECT) (19944) celiac profileIndication: Irritable bowel syndrome (Renamed from Functional bowel disease) On: 5-Chq-321196:58 Request IGA/IGD/IGG/IGM-EACH (02517) celiac profileIndication: Irritable bowel syndrome (Renamed from Functional bowel disease) On: 6-Kkd-874215:58 Request Potassium Serum (62680)Indication: Hypokalemia (Renamed from Decreased potassium in the blood) On: 3-Raj-563101:58 Request Celiac Disease Comphrehensive Profile (27470)Indication: Irritable bowel syndrome (Renamed from Functional bowel disease) On: 04-Nov-20129:56 Request METABOLIC PANEL, COMPREHENSIVE (25915)Indication: Diabetes mellitus type II, controlled On: 41-Urd-868526:32 Request LIPID PANEL (10371)Indication: Diabetes mellitus type II, controlled On: 95-Bpr-801486:32 Request CBC WITH MANUAL DIFF (60966)Indication: Diabetes mellitus type II, controlled On: 35-Ami-891887:32 Request MICROALBUMIN: CREATININE RATIO (31763) AND (41071)Indication: Diabetes mellitus type II, controlled On: 12-Btw-349778:32 Request TSH (72891)Indication: Hypothyroidism On: 37-Ths-670115:32 Request TSH (39482)Indication: Hypothyroidism On: 61-Shd-273914:26 Request MICROALBUMIN: CREATININE RATIO (27078) AND (77396)Indication: Diabetes mellitus type II, controlled On: 15-Rfw-721048: Request METABOLIC PANEL, COMPREHENSIVE (12586)Indication: Diabetes mellitus type II, controlled On: : Request LIPID PANEL (58426)Indication: Diabetes mellitus type II, controlled On: :26 Request CBC WITH MANUAL DIFF (32172)Indication: Diabetes mellitus type II, controlled On: 08-Qtn-763448:26 Request URINE VERÓNICA CULTURE-SHARIFA COL COUNT (34879)Indication: Dysuria (Renamed from Difficult or painful urination) On: 47-Qli-642678:15 Request URINE VERÓNICA CULTURE-SHARIFA COL COUNT (22718)Indication: Dysuria (Renamed from Difficult or painful urination) On: 82-Inp-048367:55 Request Ferritin (34584)Indication: Elevated LFTs On: 42-Qny-612317:50 Request Comments: repeat now per Dr. Cabral with iron level Iron Binding Capacity (TIBC) (57677)Indication: Elevated LFTs On: :50 Request Iron (70880)Indication: Elevated LFTs On: :49 Request CBC (Auto) (65931)Indication: Thrombocytopenia, unspecified On: :01 Request Comments: nonclumping tube HEPATITIS PANEL (34575)Indication: Elevated LFTs On: : Request FERRITIN (82647)Indication: Elevated LFTs On: 41-Nhx-736330:00 Request CERULOPLASMIN (94266)Indication: Elevated LFTs On: 24-Yrw-644731:00 Request ASM (ANTI SMOOTH MUSCLE ANTIBODY) (99815)Indication: Elevated LFTs On: 17-Xfa-233736:00 Request GAYATRI (ANTINUCLEAR ANTIBODY) (60530)Indication: Elevated LFTs On: 04-Spk-616396:00 Request HEPATITIS PANEL (70333)Indication: Elevated LFTs On: :01 Request TSH (26020)Indication: Hypothyroidism On: 60-Ihs-444819:16 Request LIPID PANEL (41081)Indication: Diabetes mellitus type II, controlled On: 43-Uro-109113:15 Request DRUG ASSAY-LITHIUM (25342)Indication: Bipolar affective disorder, mixed On: 55-Yzo-239211:14 Request Metabolic Panel, Basic (19467)Indication: Bipolar affective disorder, mixed On: 26-Ozh-474825:13 Request Metabolic Panel, Basic (37031)Indication: Bipolar affective disorder, mixed On: 91-Ffv-587851:22 Request DRUG ASSAY-LITHIUM (72918)Indication: Bipolar affective disorder, mixed On: 05-Nmi-770576:22 Request Comments: 2 months Urinalysis, Office (91478)Indication: Urinary frequency On: 01-Epp-291156:27 Request Comments: done pms HEPATIC FUNCTION PANEL (41964)Indication: Other and unspecified hyperlipidemia On: 2-Wdr-414094:45 Request Lipid Panel (73860)Indication: Other and unspecified hyperlipidemia On: 4-Zmg-553673:45 Request Lipid Panel (96152)Indication: Other and unspecified hyperlipidemia On: 77-Vrt-454274:17 Request CBC, Platelets & Auto Diff (42717)Indication: Other and unspecified hyperlipidemia On: :17 Request Metabolic Panel, Comprehensive (17892)Indication: Other and unspecified hyperlipidemia On: :17 Request TSH (64537)Indication: Hypothyroidism On: 41-Xxo-676813:15 Request Metabolic Panel, Basic (25305)Indication: Other and unspecified hyperlipidemia On: :55 Request Lipid Panel (43833)Indication: Other and unspecified hyperlipidemia On: :55 Request Comments: in three months (approximately) CBC (Auto) (35495)Indication: Intestinal disaccharidase deficiencies and disaccharide malabsorption On: :56 Request Metabolic Panel, Comprehensive (24982)Indication: Intestinal disaccharidase deficiencies and disaccharide malabsorption On: :56 Request Lipid Panel (08227)Indication: Intestinal disaccharidase deficiencies and disaccharide malabsorption On: :56 Request Comments: in three months (approximately) MICROALBUMIN 24 HOUR OR RANDOM On: 65-Npq-512784:04 Request (10742) CREATININE CLEARANCE (23951) On: 73-Wyu-511505:03 Request CBC (Auto) (03262)Indication: Unspecified disorder of kidney and ureter On: :53 Request Lipid Panel (25179)Indication: Unspecified disorder of kidney and ureter On: :53 Request Metabolic Panel, Comprehensive (18791)Indication: Unspecified disorder of kidney and ureter On: :53 Request TSH (18204)Indication: Hypothyroidism On: :53 Request TSH (47865)Indication: Hypothyroidism On: 79-Wdq-194877:18 Request URINALYSIS (79989)Indication: Intestinal disaccharidase deficiencies and disaccharide malabsorption On: :43 Request CBC (Auto) (43859)Indication: Intestinal disaccharidase deficiencies and disaccharide malabsorption On: 51-Raj-606693:43 Request Lipid Panel (78885)Indication: Intestinal disaccharidase deficiencies and disaccharide malabsorption On: 19-Kvk-049334:43 Request Metabolic Panel, Comprehensive (77117)Indication: Intestinal disaccharidase deficiencies and disaccharide malabsorption On: :43 Request Planned Procedures COMPUTED TOMOGRAPHY ANGIOGRAPHY OF On: 01-Aug-2018 Intent CHEST FOR PULMONARY EMBOLISM Comments: stat for PE (18997)By: Eli Bowman CNP, CNP, Mary E Echo CompleteBy: Eli Bowman CNP On: 29-Jul-2018 Intent Eli Bowman CNP Spirometry (67611)By: Colby WATTERS, On: 29-Jul-2018 Intent Eli Mcelroy CNP Holter Monitor 24 hrsBy: Colby WATTERS, On: 29-Jul-2018 Intent Eli Mcelroy CNP CHEST XRAY, PA & LATERAL (39289)By: On: 29-Jul-2018 Intent Eli Bowman CNP, CNP, Mary E ELECTROCARDIOGRAM, COMPLETE (ECG) On: 29-Jul-2018 Intent (31570)By: Eli Bowman CNP Comments: sinus rhythm Eli WATTERS Aerosol Treatment (35477)By: Colby On: 29-Jul-2018 Intent Eli WATTERS CNP, Mary E Flu Vaccine (Quadrivalent) 71059Bv: On: 22-Jul-2018 Intent Tejal Ceron Comments: Lot #[id number]-[id number] dltd, IMDose prefilled syringegiven by: Rosalie Ceron MA Toradol Injection, 30 mg (J1885)By: On: 09-May-2018 Intent Nunu Root Comments: lot [id number] 12/2029mgIMleft gmas, 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 SCREENING DIGITAL TOMOSYNTHESIS OF On: 18-Apr-2018 Intent BREAST (37914)By: Eli Bowman CNPesa APPOINTMENT MANAGER, Elif DEXA SCAN AXIAL SKELETON (01917)By: On: 18-Apr-2018 Intent Eli Bowman CNP E Eli Bowman CNP Toradol Injection, 30 mg (J1885)By: On: 22-Mar-2018 Intent Nunu Root Comments: toradol 30mg injection lot:[id number]:10/2019R GMpt tolerated wellMSMITH,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 COMPLETE ELECTROMYOGRAPHY (EMG) WITH On: 22-Mar-2018 Intent NERVE CONDUCTION STUDIES OF EACH Comments: Bilateral lower legs EXTREMITY (44666)By: Nunu Root EMGBy: Eli Bowman CNP, CNP, On: 03-Jan-2018 Intent Eli Lubin Comments: both legs Nerve ConductionBy: Eli Bowman CNP On: 03-Jan-2018 Intent E Eli Bowman CNP Comments: both legs Toradol Injection, 30 mg (J1885)By: On: 23-Dec-2017 Intent Mayda Dobbins DO Comments: toradol 30mg injectionlot: [id number]: 06/2018L GMpt tolerated wellAD 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 Spirometry (97383)By: Dk, On: 16-Nov-2017 Intent Nunu Comments: Normal spirometry Aerosol Treatment (64886)By: Shilpi On: 30-Aug-2017 Mayda Bailey DO Comments: less noise with forced exp Solu- Medrol Injection, 125mg On: 30-Aug-2017 Intent (J2930)By: Mayda Dobbins DO Comments: solumedrol 125mg injectionlot: [id number]: 12/2019R GMpt tolerated wellAD 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 Radiology - Chest- PA and LatBy: On: 30-Aug-2017 Intent Mayda Dobbins DO Solu- Medrol Injection, 125mg On: 26-Aug-2017 Intent (J2930)By: Mayda Dobbins DO Comments: solumedrol 125mg injectionlot: [id number]: 12/2019L GMpt tolerated wellAD 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 Aerosol Treatment (28128)By: Shilpi On: 26-Aug-2017 Mayda Bailey DO Comments: [place] Spirometry (65799)By: Shilpi COLEMAN, On: 26-Aug-2017 Intent Mayda Comments: mild obstruction Radiology - Shoulder - RightBy: On: 20-Jul-2017 Intent Edita Cabral MD Radiology - Lumbar SpineBy: Misha On: 20-Jul-2017 Intent Edita PROCTOR DRAIN/INJECT MAJOR JOINT OR BURSA On: 13-Apr-2017 Intent (49675)By: Eli Bowman CNP Comments: injevted left knee today JANENE, Eli Lubin PHYSICAL THERAPY (35525)By: Dk On: 08-Apr-2017 Intent Nunu Radiology - Knee - RightBy: Dk, On: 08-Apr-2017 Intent Nunu Radiology - Knee - LeftBy: Dk, On: 08-Apr-2017 Intent Nunu ATTENDED SLEEP STUDY (64919)By: On: 18-Jan-2017 Intent Eli Bowman CNP, CNP, Mary E DEXA SCAN AXIAL SKELETON (79540)By: On: 24-Nov-2016 Intent Donnie Gonzales MD MAMMOGRAM, SCREENING, BOTH BREAST On: 24-Nov-2016 Intent (27153)By: Donnie Gonzales MD US KIDNEY COMPLETE (48876)By: Janet On: 16-Jul-2016 Intent Donnie PROCTOR EsophagramBy: Edita Cabral MD On: 06-Feb-2016 Intent Comments: 12mm tablet X-RAY EXAM OF ESOPHAGUS (56560) - On: 04-Feb-2016 Intent Barium Swallow with 12mm tabletBy: Donnie Gonzales MD Carotid DopplerBy: Edita Cabral MD On: 16-Sep-2015 Intent M TD VACCINE ADULT (44570)By: Misha On: 16-Sep-2015 Intent Edita PROCTOR TDAP VACCINE >7 IM (49009)By: On: 16-Sep-2015 Intent Edita Cabral MD Pap Smear, Medicare (Q0091)By: On: 16-Sep-2015 Intent Edita Cabral MD MAMMOGRAM, SCREENING, BOTH BREAST On: 16-Sep-2015 Intent (76829)By: Edita Cabral MD Renal Artery DopplerBy: Misha PROCTOR, On: 04-Feb-2015 Intent Edita Clinton Ultrasound - RenalBy: Misha PROCTOR, On: 04-Feb-2015 Intent Edita Clinton DEXA SCAN AXIAL SKELETON (97772)By: On: 17-Jan-2015 Intent Edita Cabral MD Comments: postmenapausal MAMMOGRAM, SCREENING, BOTH BREAST On: 17-Jan-2015 Intent (63307)By: Edita Cabral MD Radiology - Shoulder - [...] with back pain- stat call results Spirometry (90119)By: Thee COLEMAN, On: 30-Apr-2014 Intent Erna Schaefer Comments: good effort and curve normal ELECTROCARDIOGRAM, COMPLETE (ECG) On: 30-Apr-2014 Intent (99104)By: Erna Kingston DO Eprescribed prescriptions (G8553)By: On: 12-Feb-2014 Intent Edita Cabral MD SPECIMEN HANDLING/TRANSPORT On: 15-Jan-2014 Intent (92435)By: Eli Bowman CNP, CNP, Mary E Eprescribed prescriptions (G8553)By: On: 11-Oct-2013 Intent Nunu Stephens LPN ADMINISTRATION OF INFLUENZA VIRUS On: 24-Jul-2013 Intent VACCINE (G0008)By: Edita Cabral MD FLU VAC, SPLIT, >3 YEARS, INTRAMUSC On: 24-Jul-2013 Intent (95585)By: Edita Cabral MD Echo CompleteBy: Edita Cabral MD On: 27-Jun-2013 Intent Carotid DopplerBy: Edita Cabral MD On: 27-Jun-2013 Intent M Eprescribed prescriptions (G8553)By: On: 27-Jun-2013 Intent Teressa Molina LPN MRI - BrainBy: Eli Bowman CNP On: 16-Jun-2013 Intent Eli Bowman CNP SPECIMEN HANDLING/TRANSPORT On: 16-May-2013 Intent (19583)By: Sue Ewing LPN Holter Monitor 24 hrsBy: Colby WATTERS, On: 28-Apr-2013 Intent Eli Mcelroy CNP ELECTROCARDIOGRAM, COMPLETE (ECG) On: 28-Apr-2013 Intent (80928)By: Colby WATTERS Eli Lubin Colby Comments: sinus bradycardia Eli WATTERS Bio Z (76205)By: Colby JANENE Eli Lubin On: 28-Apr-2013 Intent Eli Bowman CNP EKG (89569)By: Edita Cabral MD On: 28-Mar-2013 Intent Comments: see scanned document of test done to see results reviewed today with patient Eprescribed prescriptions (G8553)By: On: 28-Mar-2013 Intent Teressa Molina LPN Eprescribed prescriptions (G8553)By: On: 08-Dec-2012 Intent Nunu Stephens LPN Spirometry (90821)By: Shilpi COLEMAN, On: 25-Nov-2012 Intent Mayda Comments: Computer not running so not able to perform test Aerosol Treatment (39947)By: Shilpi On: 25-Nov-2012 Mayda Bailey DO Spirometry (46724)By: Thee COLEMAN, On: 21-Nov-2012 Intent Erna A Comments: good effort and curve normal Radiology - Chest- PA and LatBy: On: 21-Nov-2012 Intent Erna Kingston DO Eprescribed prescriptions (G8553)By: On: 21-Nov-2012 Intent Makayla Dillard LPN ADMINISTRATION OF PNEUMOCOCCAL On: 31-Oct-2012 Intent VACCINE (G0009)By: Edita Cabral MD Comments: Lot #[id number]-right deltoidDose0.5mlgiven by: [facility] per fax. M PNEUM VAC ADLT/IMUMNOSPR, SBC/INTRM On: 31-Oct-2012 Intent (35371)By: Jodi Carvalho LPN Eprescribed prescriptions (G8553)By: On: 18-Oct-2012 Intent Teressa Molina LPN L FLU VAC, SPLIT, >3 YEARS, INTRAMUSC On: 01-Jul-2012 Intent (63335)By: Eli Bowman CNP Comments: Lot:[id number]:6.13Amt:prefilled syringeSite: L Dltd, IMGiven by: MERRY TorresVIS joy WATTERS, Elif ADMINISTRATION OF INFLUENZA VIRUS On: 01-Jul-2012 Intent VACCINE (G0008)By: Colby WATTERS ElifAmee Bowman CNP Elif SPECIMEN HANDLING/TRANSPORT On: 01-Jul-2012 Intent (09396)By: Sue Ewing LPN Solu -Medrol Injection, 125 mg On: 23-Nov-2011 Intent (J2930)By: Edita Cabral MD Comments: Lot [id number]-R hip, IMDose 125mggiven by:Teressa Radiology - ChestBy: Misha PROCTOR, On: 23-Nov-2011 Intent Edita Clinton Comments: wet read Pulse Oximetry (87540)By: Benoit On: 23-Nov-2011 Intent AKBAR Aerosol Treatment (08147)By: Colby On: 16-Nov-2011 Intent Eli WATTERS CNP Elif Pulse Oximetry (50315)By: Vin On: 16-Nov-2011 Intent Lynn Comments: 93 FLU VAC, SPLIT, >3 YEARS, INTRAMUSC On: 16-Nov-2011 Intent (83329)By: Lynn Banuelos Comments: received at work SPECIMEN HANDLING/TRANSPORT On: 14-Sep-2011 Intent (33866)By: Edita Cabral MD SPECIMEN HANDLING/TRANSPORT On: 26-Aug-2011 Intent (64067)By: Sue Ewing LPN Ultrasound - LiverBy: Misha PROCTOR, On: 11-Jun-2011 Intent Edita Clinton EKG (95212)By: Edita Cabral MD On: 16-Feb-2011 Intent MAMMOGRAM, SCREENING, BOTH BREASTS On: 13-Mar-2010 Intent ([id number])By: Edita Cabral MD MAMMOGRAM, SCREENING, BOTH BREASTS On: 06-Mar-2010 Intent ([id number])By: Edita Cabral MD MAMMOGRAM, SCREENING, BOTH BREASTS On: 13-Feb-2010 Intent ([id number])By: Edita Cabral MD Spirometry ([id number])By: Misha PROCTOR, On: 01-Oct-2009 Intent Edita Clinton ELECTROCARDIOGRAM, COMPLETE (ECG) On: 01-Oct-2009 Intent ([id number])By: Edita Cabral MD Pulse Oximetry ([id number])By: Benoit, On: 01-Oct-2009 Intent AKBAR Spirometry ([id number])By: Thee COLEMAN, On: 30-Jul-2009 Intent Erna Schaefer Comments: good effort and curve normal Radiology - Chest- PA and LatBy: On: 30-Jul-2009 Intent Erna Kingston DO Pulse Oximetry ([id number])By: Vin, On: 30-Jul-2009 Intent Lynn Comments: 94%repeat 97-98 EKG ([id number])By: Erna Kingston DO On: 14-Jul-2009 Intent Comments: ekg showed normal sinus rhythym, normal axis, no acute st/t wave changes old t wave inversion noted on previous ekg Pulse Oximetry ([id number])By: Vin On: 11-Jul-2009 Intent Lynn Comments: 97% Solu -Medrol Injection, 125 mg On: 09-Jul-2009 Intent ([id number])By: Erna Kingston DO Comments: Lot #:[id number] date:mount given:125mgRoute:IM Site given:left buttockGiven by: MARIA DOLORES Cordon Aerosol Treatment ([id number])By: Thee On: 09-Jul-2009 Erna Bailey DO Pulse Oximetry ([id number])By: Thee COLEMAN On: 09-Jul-2009 Intent Erna Schaefer Comments: repeat after treatment was 96 Pulse Oximetry ([id number])By: Vin On: 09-Jul-2009 Intent Lynn Comments: 93% Spirometry ([id number])By: Gildardo SOUSA, On: 25-Jan-2009 Intent Sue MAMMOGRAM, SCREENING, BOTH BREASTS On: 29-May-2008 Intent ([id number])By: Edita Cabral MD EKG ([id number])By: Edita Cabral MD On: 29-May-2008 Intent Spirometry ([id number])By: Misha PROCTOR, On: 27-Dec-2007 Intent Edita Clinton Ultrasound - ThyroidBy: Misha PROCTOR, On: 22-Mar-2007 Intent Edita Clinton MAMMOGRAM, SCREENING, BOTH BREASTS On: 22-Mar-2007 Intent ([id number])By: Edita Cabral MD MAMMOGRAM, SCREENING, BOTH BREASTS On: 22-Mar-2007 Intent ([id number])By: Edita Cabral MD ELECTROCARDIOGRAM, COMPLETE (ECG) On: 22-Mar-2007 Intent ([id number])By: Edita Cabral MD Planned Medications INJECTION, KETOROLAC [...] disease, bilateral : DISCONTINUED - POTASSIUM SERUM (47227) Indication: Active Meniere's disease, bilateral Elevated LFTs : DISCONTINUED - HEPATIC FUNCTION PANEL (36265) Indication: Elevated LFTs Diabetes mellitus type II, [...] in ER on 12-29 after eating at [employer] and choking on a piece of potatoe had th End: 04-Jan-2017 11:17 amee hilario then went to urgent care, told to go to ER at [facility] diagnosed with Esophagitis was given pepcid [...] occurred following a specific injury (lifting at [employer] for years but no fall). The injury [...] bathroom. The patient has completed the f [facility] preventative measures: PAP smear (needs updated ), mammography (needs updated ) and colonoscopy (needs updated however patient refuse to have done bc she was hospitalized with the last one with infection for 5 days ). The patient does have durable power of civil litigation attorney and living will. The patient has [...] for Tdap vaccination (Renamed from Need for jdhlpiqpyc-ubtlfto-bigauortm (Tdap) vaccine, adult/adolescent), Goiter (Renamed from Big [...] (240.9), Hypothyroidism(244.9) [facility] Payers [employer]Phys[employer] [place] [employer] Lilly Toro; a guarantor
--- OUTSIDE RECORDS SUMMARY | 2018-11-25 15:15 | XMS RPT_ITS | Continuity of Care Document ---
:1950 Author Organization [facility] Address [address] [place] [address] Phone Care Team Providers Name Role Phone Colby JANENEEli E Unavailable Mina Baer MD Unavailable Nhung Duval Unavailable [facility], [facility] Unavailable Kasi Scott Unavailable Mariia Zhang Unavailable Dr. Junior Pena Unavailable Navdeep Fox Unavailable Elie Russo Unavailable Tanphaichitr - Bauer, Aaron Unavailable Be Middleton Unavailable MD Tyrone, Génesis Unavailable Damion Alas Unavailable Sisi Perez Unavailable Farzana Jones Unavailable Unavailable MERRY Stephens Unavailable Unavailable Paul [...] (Z68.35, V85.35) Status: Active Bronchiectasis (J47.9, 494.0) Status: Active Bronchitis (J40, 490) Status: Active Burping (R14.2, 787.3) Status: Active Candidiasis (B37.9, 112.9) Status: Active Carotid stenosis (I65.29, 433.10) Comments: 50% 8-13 Status: Active Chest pain (R07.9, 786.50) Status: Active Choking (T17.308A, 933.1) Comments: esophagram [...] Status: Active Nonsmoker (Z78.9, V49.89) Status: Active Obesity, unspecified (E66.9, [...] with bottles, extensive review with nurse and [facility], med list updated Status: Active Postmenopausal (Renamed from Postmenopausal status) (Z78.0, V49.81) Status: Active Pregnancies () Comments: 2 Status: Active S/P hysterectomy (Z90.710, V88.01) Comments: for endometrial hyperplasia 2015 Status: Active Shortness of breath (R06.02, 786.05) Status: Active Sleep apnea (G47.30, 780.57) Comments: needs repeat sleep study at [facility] to get back on cpap Status: Active [...] using it , needs readjustment, refer [place] uterine bleeding X2 months, Dr Brush doing [...] {box} Refills: 3 Ordered:29-Jul-2018 Eli Bowman CNP, CNP Elif Start : 29-Jul-2018 Active Amoxicillin 875 MG Oral Tablet 1 (one) Tablet bid for 10 days Quantity: 20 {Tablet} Refills: 0 Ordered:01-Aug-2018 Colby WATTERS Eli Renata WATTERS Elif Start : 01-Aug-2018 Active Ativan 1 MG Oral Tablet 1 Tablet qd/prn for 0 days Quantity: 30 {Tablet} Refills: 0 Ordered:15-Feb-2018 Eli Bowman CNP, CNP Elif Start : 15-Feb-2018 Active Comments:Thirty OARRS Reviewed B12 Active BD Pen Needle Ange U/F 32G X 4 MM Miscellaneous 1 (one) Misc Misc uad for 0 days Quantity: 1 {Box} Refills: 6 Ordered:19-Jan-2018 Eli Bowman CNP, CNP Elif Start : 19-Jan-2018 Active BusPIRone HCl 15 MG Oral Tablet 1 (one) Tablet Tablet bid for 0 days Quantity: 60 {Tablet} Refills: 6 Ordered:26-Jul-2018 Farzana Jones Start : 26-Jul-2018 Active Cheratussin AC 100-10 MG/5ML Oral Solution 4 Milliliter qhs prn for cough for 0 days Quantity: 120 {Milliliter} Refills: 0 Ordered:29-Jul-2018 Colby WATTERS, Eli Yanez CNP, Eli Lubin Start : 29-Jul-2018 Active Ergocalciferol 85846 UNIT Oral Capsule 1 Capsule twice weekly for 0 days Quantity: 24 {Capsule} Refills: 0 Ordered:23-Jun-2018 Colby WATTERS, Eli Yanez CNP, Eli Lubin Start : 23-Jun-2018 Active Gabapentin 100 MG Oral Capsule 3 (three) Capsule tid for 0 days Quantity: 180 {Capsule} Refills: 11 Ordered:22-Apr-2018 Mayda Dobbins DO Start : 22-Apr-2018 Active Comments:Oarrs reviewedDx M54.5 180 LORazepam 1 MG Oral Tablet 1 (one) Tablet Tablet 1 daily prn anxiety for 30 days Quantity: 30 {Tablet} Refills: 0 Ordered:26-Jul-2018 Farzana Jones Start : 26-Jul-2018 Active Comments:Thirtydo not fill until 07-31-18 Metoprolol Succinate ER 25 MG Oral Tablet Extended Release 24 Hour 1/2 Tablet daily for 0 days Quantity: 45 {Tablet} Refills: 3 Ordered:26-Jun-2018 Colby WATTERS, Eli Yanez CNP, Eli Lubin Start : 26-Jun-2018 End : 18-Jan-2018 Active Oxybutynin Chloride ER 15 MG Oral Tablet Extended Release 24 Hour one tablet daily (15 MG) Active Comments:Catrachito Pen [place] 3/16 31G X 5 MM Miscellaneous 1 (one) Misc Misc qd with Victoza for 0 days Quantity: 1 {Box} Refills: 3 Ordered:03-Feb-2018 Misha PROCTOR, Edita Clinton Start : 19-Jan-2018 Active ProAir HFA 108 (90 Base) MCG/ACT Inhalation Aerosol Solution 1-2 puffs Aerosol Soln every four hours, as needed for 30 days Quantity: 1 {Box} Refills: 3 Ordered:29-Jul-2018 Colby WATTERS, Eli Yanez CNP, Eli Lubin Start : 29-Jul-2018 Active Comments:Medication taken as needed. PROzac 40 MG Oral Capsule 2 (two) Capsule qd for 90 days Quantity: 180 {Capsule} Refills: 3 Ordered:18-Apr-2018 Colby WATTERS, Eli Yanez CNP, Eli Lubin Start : 18-Apr-2018 Active Symbicort [...] 5mg 3 tablets a day breathing issues ASMANEX 30 METERED DOSES, 110MCG/INH (Inhalation Aerosol [...] Refills: 0 Ordered:06-Jan-2016 Colby WATTERS, Eli Yanez INDUSTRIAL AUTOMATION ENGINEER, Eli Lubin Start : 06-Jan-2016 End : 20-Jan-2016 Inactive AZITHROMYCIN, 250MG (Oral Tablet) 2 (two) Tablet today then 1 qd for 4 days for 0 days Quantity: 6 {Tablet} Refills: 0 Ordered:08-Dec-2012 Nunu Stephens LPN Start : 21-Nov-2012 End : 08-Dec-2012 Inactive BACTRIM DS, 800-160MG (Oral Tablet) 1 Tablet bid for 7 days Quantity: 14 {Tablet} Refills: 0 Ordered:16-May-2013 Colby WATTERS, [facility] Eli Lubin Start : 16-May-2013 End : 23-May-2013 Inactive Cheratussin AC 100-10 MG/5ML Oral Syrup 1 Teaspoon(s) qhs prn cough for 0 days Quantity: 8 {Fluid_Ounce} Refills: 0 Ordered:16-Jun-2016 Priya Gillette Start : 12-Mar-2016 End : 16-Jun-2016 Inactive Comments:eight CIPRO, 500MG (Oral Tablet) 1 Tablet bid for 7 days Quantity: 14 {Tablet} Refills: 0 Ordered:15-Jan-2014 [facility], Elif Start : 15-Jan-2014 [...] : 07-Nov-2012 End : 12-Feb-2014 Inactive Drisdol 22080 UNIT Oral Capsule 1 (one) Capsule once week for 90 days Quantity: 12 {Capsule} Refills: 1 Ordered:03-Jan-2018 Slarb MERRYNaomi Start : 10-Aug-2017 End : 03-Jan-2018 Inactive [...] days Quantity: 20 {Capsule} Refills: 0 Ordered:26-Aug-2011 Lisamitchsilvano WATTERS, Eli Yanez [facility], Eli Lubin Start : 26-Aug-2011 End : 05-Sep-2011 Inactive Maxzide 75-50 MG Oral Tablet 1 (one) Tablet qd for 90 days Quantity: 90 {Tablet} Refills: 0 Ordered:23-Apr-2017 Colby WATTERS, Eli Yanez INDUSTRIAL AUTOMATION ENGINEER, Eli Lubin Start : 23-Apr-2017 End : 22-Jul-2017 Inactive [...] : 29-Jul-2010 End : 30-Sep-2010 Inactive Nystatin 509575 UNIT/ML Mouth/Throat Suspension 4-6 Milliliter swish and [...] : 12-Dec-2015 End : 16-Jun-2016 Inactive Comments:per [facility] Topamax 100 MG Oral [...] 03-Jan-2018 Inactive Comments:1 rambo as directed ZOSTAVAX, 18726QTI/0.65ML (Subcutaneous Solution Reconstituted) 1 For Solution once [...] Start : 04-Jan-2017 End : 04-Jan-2017 Discontinued Comments:[facility] FLEXERIL, 10MG (Oral Tablet) [...] : 13-Nov-2013 End : 13-Nov-2013 Discontinued Comments:ID [id number] Medrol 4 MG Oral Tablet Therapy Pack [...] days Quantity: 90 {Tablet} Refills: 1 Ordered:04-Jan-2017 Colby WATTERS, Eli Renata INDUSTRIAL AUTOMATION ENGINEER, Elif Start : 04-Jan-2017 End : 04-Jan-2017 [...] days Quantity: 30 {Tablet} Refills: 0 Ordered:27-Jul-2017 Slarb 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, Naomi Start : 18-Jan-2017 End : 27-Jul-2017 Discontinued Vitamin D3 81593 UNIT Oral Tablet 1 (one) Tablet Tablet once a week for 60 days Quantity: 8 {Tablet} Refills: 0 Ordered:04-Jan-2017 Slarb 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, Naomi Start : 24-Nov-2016 End : 04-Jan-2017 [...] for Tdap vaccination (Renamed from Need for elhglmmtnr-ztrwuir-njttidyxu (Tdap) vaccine, adult/adolescent) (Z23, V06.1) Status: Inactive as of 12-Dec-2015 Other and unspecified hyperlipidemia (E78.5, 272.4) Status: Inactive as of 24-Jul-2013 Pharyngitis, acute (J02.9, 462) Comments: rapid strep negativeCulture Status: Inactive as of 20-Jan-2016 Pneumonitis (J18.9, 486) Status: Inactive as of 14-May-2014 Pre-operative exam (Renamed from Preop examination) (Z01.818, V72.84) Comments: Getting 4 tooth out 07/17 next week, [facility].HAs MARTHA has CPAP but not been using it for 2 years, need to see Bavis for retitration.Cr : 1.77 , repeat labs, US kidneyDM type 2: HBa1c 5.4 BMI:(obesit y increase the risk of wound infection, PE.Not malnourishedLabs:CBCCMPPT/INRtype and screen gel(33764)EK06/10/16: no acute changesHas good social support and [...] under good control Patient to use Mucinex zxcu-alo-xsfbnxf which helped her. Status: Inactive as of [...] Completed Comments: 2000 Tubal ligation 1963 Completed [facility] hospital Left endolymphatic sac Completed decompression with shunt and middle ear infusion with decadron 03/05 Date Value Details 01-Aug-2018 CTA Chest W/WO Contrast Result: Comments: See Note; NOTES: [facility] Imaging Services [address] [place] [address] CTA Chest W/WO Contrast MR#: [id number] Acct: [id number] Name: ELIZABETH TORO Rep #: [id number] : 1950 F 67 From: Hardeep Calix MD PCP: Eli Bowman NP Status: REG CLI Study: CTA Chest W/WO Contrast Date of Exam: 08/01/18 Exam# [id number] Ordering Dr: Eli Bowman STUDY: CTA CHEST/T [...] Service support , CC: Eli Bowman NP Teaching Dietitian: Signed 29-Jul-2018 Chest PA and Lateral Result: Comments: See Note; NOTES: [facility] Imaging Services [address] [place] [address] Chest PA and Lateral MR#: [id number] Acct: [id number] Name: ELIZABETH TORO Rep #: [id number] : 1950 F 67 From: Cami Klein MD PCP: Eli Bowman NP Status: REG CLI Study: Chest PA and Lateral Date of Exam: 07/29/18 Exam# [id number] Ordering Dr: Eli Bowman STUDY: X-RAY CHEST [...] Service support , CC: Eli Bowman NP Teaching Dietitian: Signed 21-Apr-2018 Downtime Report Result: Comments: See Note; NOTES: [facility] Medical Records Department [address] [place] [address] Downtime Report MR#: [id number] Acct: [id number] Name: ELIZABETH TORO Rep #: 1 : 1950 67 From: Alon Klein PCP: Eli Bowman NP Status: REG RCR This patient was seen during an EMR downtime April 04, 2018 - April 11, 2018. This patient may have a combination of p aper and electronic documentation or all paper documentation. All documentation is viewable within the e-chart portion of [facility] for each patient visit. 12-Apr-2018 NCS and/or EMG Patient Result: Comments: See Note; NOTES: [facility] Pulmonary Services/Neurology [address] [place] [address] MR#: [id number] Acct: [id number] Name: ELIZABETH TORO Rep #: [id number] : 1950 67 From: Kal Hernandez MD Referring Dr: Eli Bowman NP Status: REG CLI Ordering Dr: Date: Location: N Sex: F C NCS and/or EMG Patient [...] ____ Kal Hernandez MD CC: Eli Bowman SEPHORA OPERATIONS CONSULTANT; Kal Hernandez MD Date Dictated: 04/12/18949 Date Transcribed: 04/12/18949 Teaching Dietitian: NF Signed 01-Feb-2018 PT D/C Summary (1) Result: Comments: See Note; NOTES: [facility] [address] [place] [address] Fax REHABILITATION SERVICES DISCHAR GE SUMMARY MR#: [id number] Acct: [id number] Name: ELIZABETH TORO Rep #: [id number] : 1950 67 From: Cristopher Francis PT, ATC Referring DrJose: Mayda Dobbins DO Status: REG RCR Insurance: [facility] PART A B PHYSICIAN MUTUAL INS CO [...] please feel free to call me at [phone]. Thank you for the referral of this patient. Sincerely, Cristopher Francis PT, <Electronically signed by Andrea Francis PT, ATC> 02/01/18 0823 CC: Eli Bowman SEPHORA OPERATIONS CONSULTANT; Mayda Dobbins DO [facility] Signed 30-Dec-2017 Inital Evaluation (1) - PT Result: Comments: See Note; NOTES: [facility] [address] [place] [address] Fax REHABILITATION SERVICES INITIAL EVALUATION MR#: [id number] Acct: [id number] Name: ELIZABETH TORO Rep #: [id number] : 1950 67 From: Cristopher Francis PT, ATC Referring Dr.: Mayda Dobbins DO Status: REG RCR Insurance: [employer] PART A B PHYSICIAN MUTUAL INS CO [...] to be FAXED BACK to us at [phone] for Medicare purposes. Please let me know if there are questions or concerns regarding this plan of care. Physician Signature: Date: <Electronically signed by Cristopher Francis PT, ATC> 12/30/17 1056 CC: Eli Bowman NP; Mayda Dobbins DO DT: 0 12/30/17 [facility] Signed For Medicare only, by signing this I certify the plan of care. Physicians Signature Date 08-Oct-2017 Operative Report Result: Comments: See Note; NOTES: [facility] Medical Records Department [address] [place] [address] Operative Report 10/08/172017 MR#: [id number] Acct: [id number] Name: XAVIER TORO Rep #: [id number] : 1950 67 From: Oscar iWnston MD PCP: Eli Bowman NP Status: REG [facility] Y Location: [place] [address] Problem List (1) Intrinsic (urethral) sphincter deficiency [...] Instruction Result: Comments: See Note; NOTES: [facility] Medical Records Department [address] [place] [address] Instructions for Home/Discharge Instructions 10/08/171950 MR#: [id number] Acct: [id number] Name: ELIZABETH TORO Rep #: [id number] : 1950 67 From: Oscar Winston MD PCP: Eli Bowman NP Status: REG [facility] Discharge Diet: Light diet - advance as [...] Lateral Result: Comments: See Note; NOTES: [facility] Imaging Services [address] [place] [address] Chest PA and Lateral MR#: [id number] Acct: [id number] Name: ELIZABETH TORO Rep #: [id number] : 1950 F 67 From: Yury Arthur MD PCP: Eli Bowman Status: REG CLI Study: Chest PA and Lateral Date of Exam: 08/30/17 Exam# [id number] Ordering Dr: Mayda Dobbins DO STUDY: X-RAY [...] , CC: Eli Bowman; Mayda Dobbins DO Teaching Dietitian: Signed 20-Jul-2017 L/S Spine Min 4 Views Result: Comments: See Note; NOTES: [facility] Imaging Services [address] [place] [address] L/S Spine Min 4 Views MR#: [id number] Acct: [id number] Name: ELIZABETH TORO Silvano Rep #: [id number] : 1950 F 66 From: Dionte Lujan DO PCP: Eli Bowman Status: REG CLI Study: L/S Spine Min 4 Views Date of Exam: 07/20/17 Exam# [id number] Ordering Dr: Edita Cabral MD STUDY: X-RAY [...] , Service support , Fax CC: Eli Cabral MD Teaching Dietitian: Signed 20-Jul-2017 Shoulder min 2 Views Result: Comments: See Note; NOTES: [facility] Imaging Services [address] [place] [address] Shoulder min 2 Views MR#: [id number] Acct: [id number] Name: ELIZBAETH TORO Rep #: [id number] : 1950 F 66 From: Dionte Lujan DO PCP: Eli Bowman Status: REG CLI Study: Shoulder min 2 Views Date of Exam: 07/20/17 Exam# [id number] Ordering Dr: Edita Cabral MD STUDY: X-RAY - RIGHT [facility] REASON FOR EXAM: Female, 66 [...] Tel , Service support , CC: Eli Cabral MD Teaching Dietitian: Signed 11-May-2017 PT D/C Summary (1) Result: Comments: See Note; NOTES: [facility] [address] [place], [place] [address] Fax REHABILITATION SERVICES LAYNE CARLISLE SUMMARY MR#: [id number] Acct: [id number] Name: ELIZABETH TORO Rep #: [id number] : 1950 66 From: Naomi COMER Referring [...] please feel free to call me at [phone]. Thank you for the referral of this patient. Sincerely, Naomi Osorio <Electronically signed by Naomi Osorio MPT> 09/17 0919 CC: Nunu Root; Eli Bowman Signed 14-Apr-2017 Inital Evaluation (1) - PT Result: Comments: See Note; NOTES: [facility] [address] [place] [address] Fax REHABILITATION SERVICES INITIAL EVALUATION MR#: [id number] Acct: [id number] Name: ELIZABETH TORO Rep #: [id number] : 1950 66 From: Naomi COMER Referring Dr.: Nunu Root Status: REG RCR Insurance: MEDICARE PART A B PHYSICIAN MUTUAL INS CO Patient's Visit Information ELIZABETH TORO is a 66 year old F referred to Physical Therapy by JUDITH Dilalo with a diagnosis of IT Band Syndrome [...] muscle activitation and pt reports that Dr Fxo said it was due to anxiety. L [...] to be FAXED BACK to us at [phone] for Medicare purposes. Please let me know if there are questions or concerns regarding this plan of care. Physician Signature: Date: <Electronically signed by Naomi Osorio MPT> 04/14/17 1906 CC: Nunu Root; Eli Bowman Signed For Medicare only, by sign ing this I certify the plan of care. Physicians Signature Date 08-Apr-2017 Knee 4 or More Views Result: Comments: See Note; NOTES: [facility] Imaging Services [address] [place] [address] Verdana 4d Knee 4 or More Views MR#: [id number] Acct: [id number] Name: ELIZABETH TORO p #: [id number] : 1950 F 66 From: Chalino Mancia MD PCP: Eli Bowman Status: REG CLI Study: Knee 4 or More Views Date of Exam: 04/08/17 Exam# [id number] Ordering Dr: Mayda Dobbins DO STUDY: X-RAY [...] , CC: Eli Bowman; Mayda Dobbins DO Teaching Dietitian: Signed 08-Apr-2017 Knee 4 or More Views Result: Comments: See Note; NOTES: [facility] Imaging Services [address] [place] [address] Verdana 4d Knee 4 or More Views MR#: [id number] Acct: [id number] Name: ELIZABETH TORO Viridiana p #: [id number] : 1950 F 66 From: Chalino Mancia MD PCP: Eli Bowman Status: REG CLI Study: Knee 4 or More Views Date of Exam: 04/08/17 Exam# [id number] Ordering Dr: Mayda Dobbins DO STUDY: X-RAY [...] , CC: Eli Bowman; Mayda Dobbins DO Teaching Dietitian: Signed 15-Mar-2017 Sleep Study Report Result: Comments: See Note; NOTES: [facility] SLEEP DISORDER CENTER [address] [place] [address] Polysomnography with NCPAP MR#: [id number] Acct: [id number] Name: ELIZABETH TORO p #: [id number] : 1950 66 From: Kal Hernandez MD [...] version). Please note that a reference to [facility] AHI in this report is consistent with the current Hypopnea definition according to Medicare Criteria and an AAS AHI reference is consistent with the current Hypopnea defini tion according to the AASM criteria and is recognized by [facility] as the RDI. PROCEDURE: The study was attended continuously by a transmission technician. Monitored parameters included left and right [...] body mass index of 30.9 and an [place] Sleepiness Scale score of 6. There is [...] requested. Kal Hernandez MD T: NTS JOB: [id number] CC: Kal Hernandez MD 115 1151 03/15/17 1451 <Electronically signed by Kal Hernandez MD> Date Kal Hernandez MD Co-signature (if applicable) Date Signed 05-Jan-2017 Esophagus Only Result: Comments: See Note; NOTES: [facility] Imaging Services [address] [place] [address] Verdana 4d Esophagus Only MR#: [id number] Acct: [id number] Name: ELIZABETH TORO Rep #: [id number] : 1950 F 66 From: Gabriela Ragland MD PCP: Eli Bowman Status: REG CLI Study: Esophagus Only Date of Exam: 01/05/17 Exam# [id number] Ordering Dr: Sofia Bragg MD STUDY: AIR-CONTRAST [...] at 8:43 EST Tel , Service support [phone], CC: Eli Bowman; Sofia Bragg MD Teaching Dietitian: Signed 29-Dec-2016 Emergency Department Summary Result: Comments: See Note; NOTES: [facility] Medical Records Department [address] [place] [address] Emergency Department Summary MR#: [id number] Acct: [id number] Name: XAVIER TORO Rep #: [id number] : 1950 66 From: Sofia Bragg MD PCP: Eli Bowman Status: DEP ER DATE OF SERVICE: 12/29/2016 CHIEF COMPLAINT: Sore throat. HISTORY OF PRESENT ILLNESS: This is a 66-year- old woman that states she was at boarding pass, choked on a piece of potato 5 [...] the case with Dr. Pena who is condenser tester for GI and he suggested ordering an [...] C: Eli Pena MD T: NTS JOB: [id number] 12/29/16 19 29 <Electronically signed by Sofia Bragg MD> Date Sofia Bragg MD Cosigner Signature (If Indicated): Date CC: Eli Bowman; Junior Pena Date Dictated: 12/29/161828 Date Transcribed: 12/29/161828 Teaching Dietitian: Signed 29-Dec-2016 Discharge Instruction Result: Comments: See Note; NOTES: [facility] Medical Records Department [address] [place] [address] Discharge Instruction 12/29/161829 MR#: [id number] Acct: [id number] Name: ELIZABETH TORO Rep #: [id number] : 1950 66 From: Sofia Bragg MD [...] your Primary Care Provider. Call [facility] ([phone] ) or report to the closest Emergency Room. Call 911 if necessary. 12/29/161832 <Electronically signed by Sofia Bragg MD> Date Sofia elliott MD Cosigner Signature (If Indicated): Date CC: Eli Bowman 07-Aug-2016 Sleep Study Report Result: Comments: See Note; NOTES: [facility] [address] [place] [address] Split Night Sleep Study MR#: [id number] Acct: [id number] Name: ELIZABETH TORO Rep #: [id number] : 1950 65 From: Kal Hernandez MD [...] version). Please note that a reference to [facility] AHI in this report is consistent with the current Hypopnea definition according to Medicare Criteria and an [facility] AHI reference is consistent with the current Hypopnea defin ition according to the AASM criteria and is recognized by [facility] as the RDI. PROCEDURE: The study was attended continuously by a transmission technician. Monitored parameters included left and right [...] a body mass index of 29.3 and [place] Sleepiness Scale score of 2. There is a history of hypertension and previous diagnosis of obstructive sleep apnea; however, no records are avail able. There is also history of diabetes, Meniere's disease, coronary artery disease, bipolar disorder. MASK USED DURING THE STUDY: AirFit P10 extra small mask with heated humidity. SLEEP SUMMARY: Janee ng the diagnostic portion of the test, [...] and heated humidity. Kal Hernandez MD T: MICHAEL JOB: [id number] CC : Kal Hernandez MD 1144 1144 08/07/16 0959 <Electronically signed by Kal Hernandez MD> Date Kal Hernandez MD Co-signature (if applicable) Date Signed -Aug-2016 Kidney and Bladder Result: Comments: See Note; NOTES: [facility] Imaging Services [address] [place] [address] Verdana 4d Kidney and Bladder MR#: [id number] Acct: [id number] Name: ELIZABETH TORO Rep #: [id number] : 1950 F 65 From: Anibal Lan MD PCP: Donnie Gonzales Status: [facility] CLI Study: Kidney and Bladder Date of Exam: 08/04/16 Exam# [id number] Ordering Dr: Beto Henry MD ST UDY: RENAL ULTRASOUND - COMPLETE REASON FOR [...] Anibal Lan MD at 11:16 EDT Tel [phone], Service support [phone], CC: Soumya Henry M.D.; Donnie Gonzales Teaching Dietitian: Signed 23-Jun-2016 Operative Report Result: Comments: See Note; NOTES: [facility] Medical Records Department [address] [place] [address] Operative Report MR#: [id number] Acct: [id number] Name: ELIZABETH TORO Rep #: [id number] : 1950 65 From: Gm Brush MD PCP: Donnie Gonzales Status: REG [facility] DATE OF SERVICE: 06/22/2016 DATE OF PROCEDURE: June 22, 2016 SURGEON: Gm Brush M.D. SUPERVISOR PUTTY AND CALUKING: Lia jacinto. ANESTHESIA: Gem Shelby and Frank [...] ovaries. Gm Brush MD T: NTS JOB: [id number] 06/23/16 0725 <Electronically signed by Gm Brush MD> Date __ Gm Brush MD Cosigner Signature (If Indicated): Date CC: Gm Brush MD; Donnie Gonzales Date Dicta nahed: 06/22/161102 Date Transcribed: 06/22/161102 Teaching Dietitian: Signed 22-Jun-2016 Discharge Instruction Result: Comments: See Note; NOTES: [facility] Medical Records Department [address] [place] [address] Instructions for Home/Discharge Instructions 06/22/16 0904 MR#: [id number] Acct: [id number] Name: ELIZABETH TORO Rep #: [id number] : 1950 65 From: Gm Brush MD PCP: Donnie Gonzales Status: REG [facility] Discharge Diet: No Restrictions Discharge Activity: Return [...] With: Gm Brush When: 2-3 weeks 06/22/16 09 <Electronically signed by Gm Brush MD> Date ____ Gm Brush MD CC: Donnie Gonzales 10-Jun-2016 ELECTROCARDIOGRAM, COMPLETE (ECG) (64487) Result: [MEASUREMENTS ANALYSIS] Date of Test: 06/10/2016 09:39:53; Heart Rate: 58; WA Interval: 208; QRS: 86; QT Interval: 480; Corrected QT Interval (QTc): 477; P Wave [place]: 45; QRS [place]: 11; T Wave [place]: 23; Blood Pressure: 112/70 [ECG DIAGNOSTIC STATEMENTS] Date of Test: 06/10/2016 09:39:53; Summary: Sinus Bradycardia - Negative T-waves -May be normal - possible Anteroseptal ischemia. BORDERLINE 13-Apr-2016 Operative Report Result: Comments: See Note; NOTES: [facility] Medical Records Department [address] [place] [address] Operative Report MR#: [id number] Acct: [id number] Name: XAVIER TORO LEILANI Schaefer Rep #: [id number] : 1950 65 From: Gm Brush MD PCP: Edita Cabral MD Status: [facility] DATE OF SERVICE: 04/13/2016 DATE [...] and endometrial curettings. Gm Brush MD T: [facility] JOB: [id number] 04/13/16 1838 <Electronically signed by Gm Brush MD> Date Gm Brush MD Cosigner Signature (If Indicated): Date CC: Edita Young; Gm Brush MD Date Dictated: 04/13/16 1031 Date Transcribed: 04/13/16 1031 Teaching Dietitian: Signed 13-Apr-2016 Discharge Instruction Result: Comments: See Note; NOTES: [facility] Medical Records Department [address] [place] [address] Instructions for Home/Discharge Instructions 04/13/16 1003 MR#: [id number] Acct: [id number] Name: ELIZABETH TORO Rep #: [id number] : 1950 65 From: Gm Brush MD PCP: Edita Cabral MD Status: REG [facility] [place] Discharge Diet: No Restrictions Discharge Activity: R [...] mg PO DAILY 04/10/16 Hydrocodone Bitart/Apap 5-325 [[place] 5MG-325MG] 1 tablet PO Q4H PRN PRN #10 tablet 04/13/16 The followi ng prescriptions were given: Hydrocodone Bitart/Apap 5-325 [[place] 5MG-325MG] 1 tablet PO Q4H PRN PRN #10 tablet PRN Reason: Mod-Severe Pain () Please Follow Up With: Gm Brush When: 2-3 jason bowers 04/13/16 1004 <Electronically signed by Gm Brush MD> Date Gm Brush MD CC: Edita Cabral MD 22-Mar-2016 Emergency Department Summary Result: Comments: See Note; NOTES: [facility] Medical Records Department [address] [place] [address] Emergency Department Summary MR#: [id number] Acct: [id number] Name: ELIZABETH TORO Rep #: [id number] : 1950 65 From: Nando Fuller MD [...] C: Edita Brush MD T: [facility] JOB: [id number] 03/22/16 0247 <Electronically signed by Nando Fuller MD&a hayden;#62; Date Nando Fuller MD Cosigner Signature (If Indicated): Date CC: Edita Cabral MD; Otilia Brush MD Date Dictated: 03/21/1650 Date Transcribed: 03/21/1650 Teaching Dietitian: Signed 21-Mar-2016 Discharge Instruction Result: Comments: See Note; NOTES: [facility] Medical Records Department [facility] [place] [address] Discharge Instruction 03/21/168 MR#: [id number] Acct: [id number] Name: ELIZABETH TORO Rep #: [id number] : 1950 65 From: Nando Fuller MD [...] unexpected probl ems, contact your doctor. Call [facility] ([phone]) or report to the closest Emergency Room. Call 911 if necessary. 03/21/16 0049 <Electronically signed by Nando Fuller MD&#6 2; Date Nando Fuller MD Cosigner Signature (If Indicated): Date CC: Edita Cabral MD 20-Mar-2016 Transvaginal Non- Result: Comments: See Note; NOTES: [facility] Imaging Services [address] [place] [address] Verdana 4d Transvaginal Non- MR#: [id number] Acct: [id number] Name: ELIZABETH DIAZ Rep #: [id number] : 1950 F 65 From: Jose Fu PCP: Edita Cabral MD Status: REG ER Study: Transvaginal Non- Date of Exam: 03/20/16 Exam# [id number] Ordering Dr: Oz Fuller MD STUDY: ULTRASOUND [...] DO at 0:42 EDT , Service support [phone], Fax CC: Edita Cabral MD; Nando Fuller MD Teaching Dietitian: Signed 25-Feb-2016 Esophagus Only Result: Comments: See Note; NOTES: [facility] Imaging Services [address] [place] [address] Verdana 4d Esophagus Only MR#: [id number] Acct: [id number] Name: XAVIER TORO Rep #: [id number] : 1950 F 65 From: Anibal Lan MD PCP: Edtia Cabral MD Status: REG CLI Study: Esophagus Only Date of Exam: 02/25/16 Exam# [id number] Ordering Dr: Donnie Gonzales STUDY: X-RAY - [...] Anibal Lan MD at 10:35 EDT Tel [phone], Service support [phone], Fax RAD/Esophagus Only IMPRESSION: Normal plain film x-ray examination (barium swallow) of the esophagus. Electronically Signed: Anibal Lan MD at 10: 35 EDT Tel [phone], Service support [phone], CC: Edita Cabral MD; Donnie Gonzales Teaching Dietitian: Signed 25-Feb-2016 Esophagus Only Result: Comments: See Note; NOTES: [facility] Imaging Services [address] [place] [address] Verdana 4d Esophagus Only MR#: [id number] Acct: [id number] Name: XAVIER TORO Rep #: [id number] : 1950 F 65 From: Anibal Lan MD PCP: Edita Cabral MD Status: REG CLI Study: Esophagus Only Date of Exam: 02/25/16 Exam# [id number] Ordering Dr: Donnie Gonzales ADDENDUM by Anibal Lan MD on 03/31/16 at 0747 ADDENDUM This is an addendum report for PQRS purposes. 19 images were obtained. Electronically Signed: Anibal Lan MD at 7:47 EDT Tel [phone], Service support [phone], 03/31/16 0747 Date cc: Edita Cabral MD; [...] Anibal Lan MD at 10:35 EDT Tel [phone], Service support [phone], RAD/Esophagus Only IMPRESSION: Normal plain film x-ray examination (barium swallow) of the esophagus. Electronically Signed: Anibal Lan MD at 10:35 EDT Tel [phone], Service support [phone], CC: Edita Cabral MD; Donnie Gonzales Teaching Dietitian: Signed 10-Dec-2015 12 Lead Electrocardiogram Result: Comments: See Note; NOTES: [facility] Cardiovascular Services [address] [place] [address] 12 Lead EKG 12/08/15 1551 MR#: [id number] Acct: [id number] Name: ELIZABETH DASILVA Rep #: [id number] : 1950 65 From: Francisco Muller MD [...] Low voltage QRS Borderline ECG Confirmed by KAVITA PROCTOR, FRANCISCO ([id number]), television news video editor ZUNILDA KLEIN (56) on 12/10/2015 9:33:10 AM Referred By: ROMEL Confirmed By:FRANCISCO MULLER MD 12/10/15 0933 Date ___ Francisco Muller MD CC: Edita Cabral MD Date Dictated: 12/08/151550 Date Transcribed: 12/08/151550 Teaching Dietitian: Signed 10-Dec-2015 Emergency Department Summary Result: Comments: See Note; NOTES: [facility] Medical Records Department [address] [place] [address] Emergency Department Summary MR#: [id number] Acct: [id number] Name: ELIZABETH TORO Rep #: [id number] : 1950 65 From: Sisi Severino MD [...] C: Edita Cabral MD T: [facility] JOB: [id number] 12/10/15 0232 <Electronically deepti d by Sisi Severino MD> Date Sisi Severino MD Cosigner Signature (If Indicated): Date C C: Edita Cabral MD Date Dictated: 12/08/151705 Date Transcribed: 12/08/151705 Teaching Dietitian: Signed 08-Dec-2015 Discharge Instruction Result: Comments: See Note; NOTES: [facility] Medical Records Department [address] [place] [address] Discharge Instruction 12/08/15 1659 MR#: [id number] Acct: [id number] Name: ELIZABETH TORO Rep #: [id number] : 1950 65 From: Sisi Severino MD [...] problems, contact your doctor. Call [facility] ([phone]) or report to the closest Emergency Room. Call 911 if necessary. 12/08/15 1701 <Electronically signed by Sisi young MD> Date Sisi Severino MD Cosigner Signature (If Indicated): Date CC: Edtia Cabral MD 08-Dec-2015 Chest PA and Lateral Result: Comments: See Note; NOTES: [facility] Imaging Services [address] [place] [address] Verda 4d Chest PA and Lateral MR#: [id number] Acct: [id number] Name: ELIZABETH TORO Rep #: [id number] : 1950 F 65 From: Malaika Diana MD PCP: Edita Cabral MD Status: REG ER Study: Chest PA and Lateral Date of Exam: 12/08/15 Exam# [id number] Ordering Dr: Sisi Severino MD STUDY: X-RAY [...] MD at 16:41 EST , Service support [phone], RAD/Chest PA and Lateral IMPRESSION: No acute disease is demonstrated. Electronic ally Signed: Malaika Diana MD at 16:41 EST , Service support [phone], CC: Edita Cabral MD; Sisi Severino MD Teaching Dietitian: Signed 16-Sep-2015 EKG (63133) Result: [MEASUREMENTS ANALYSIS] Date of Test: 09/16/2015 09:46:37; Heart Rate: 74; WA Interval: 192; QRS: 88; QT Interval: 406; Corrected QT Interval (QTc): 430; P Wave [place]: 28; QRS Wave [place]: -3; T Wave [place]: -1; Blood Pressure: 104/60 [ECG DIAGNOSTIC STATEMENTS] Date of Test: 09/16/2015 09:46:37; Summary: Sinus Rhythm Low voltage in precordial leads. - Nonspecific T-abnormality. ABNORMAL 11-Feb-2015 Kidney and Bladder Result: Comments: See Note; NOTES: [facility] Imaging Services [address] [place] [address] Ultrasound Report MR#: [id number] Acct: [id number] Name: ELIZABETH TORO Rep #: [id number] : 1950 F 64 From: Mina Cade MD PCP: Edita Cabral MD Status: REG CLI Study: Kidney and Bladder Date of Exam: 02/11/15 Exam# [id number] Ordering Dr: Edita Cabral MD STUDY: RE [...] MD at 23:11 EDT , Service support [phone], CC: Edita Cabral MD Teaching Dietitian: Signed 24-Jul-2014 PT Discharge Summary Result: Comments: See Note; NOTES: [facility] [address] [place] [address]. [address] [place], [place] [phone] Fax REHABILITATION SERVICES DISCHARGE SUMMARY MR#: [id number] Acct: [id number] Name: ELIZABETH TORO Rep #: [id number] : 1950 63 From: Naomi Osorio Referring DrJose: Edita Cabral MD Status: DIS RCR Eval [...] clinic. Naomi Osorio, PT T: [facility] JOB: [id number] <Electronically signed by Faraz Osorio > 07/24/14 1350 CC: Signed 15-Jun-2014 PT Discharge Summary Result: Comments: See Note; NOTES: [facility] [address] [place] [address]. [address] [place] [phone] Fax REHABILITATION SERVICES DISCHARGE SUMMARY MR#: [id number] Acct: [id number] Name: ELIZABETH TORO Rep #: [id number] : 1950 63 From: Naomi Osorio Referring [...] Sincerely, Naomi Osorio, PT T: NTS JOB: [id number] <Electronically signed by Naomi Osorio & amp;#62; 06/15/14 1410 CC: Signed 25-May-2014 Inital Evaluation - PT Result: Comments: See Note; NOTES: [facility] [address] [place] [address]. [address] [place], [place] [address] Fax REHABILITATION SERVICES INITIAL EVALUATION MR#: [id number] Acct: [id number] Name: ELIZABETH TORO Rep #: [id number] : 1950 63 From: Naomi Osorio Referring : Edita Cabral MD Status: REG RCR Insurance: [facility] Eval Date: PHYSICIAN MUTUAL [...] anterolateral shoulder. She is right-handed. Right hand critical care rn strength is 50 pounds, left is 22 [...] needed. Naomi Osorio, PT T: NTS JOB: [id number] <Electronically signed by Naomi Osorio > 4 1241 CC: Signed For Medicare only, by signing this I certify the plan of care. Physicians Signature Date 23-May-2014 Nuclear Stress Test - Chemical Result: Comments: See Note; NOTES: [facility] Imaging Services [address] [place] [address] Nuclear Medicine Report MR#: [id number] Acct: [id number] Name: JAYYELIZABETH Schaefer Rep #: [id number] : 1950 F 63 From: Tano Nielsen MD PCP: Edita Cabral MD Status: REG CLI Study: Nuclear Stress Test - Chemical Date of Exam: 05/23/14 Exam# [id number] Ordering Dr: Álvaro Cabral MD EXERCISE TOLERANCE [...] LVEF of 61%. CC: Edita Cabral MD Teaching Dietitian: PHILLIPS Signed 14-May-2014 Shoulder min 2 Views Result: Comments: See Note; NOTES: [facility] Imaging Services [address] [place] [address] Radiology Report MR#: [id number] Acct: [id number] Name: ELIZABETH TORO Rep #: [id number] : 1950 F 63 From: Hardeep Dmuont MD PCP: Erna Kingston DO Status: REG CLVito Study: Shoulder min 2 Views Date of Exam: 05/14/14 Exam# [id number] Ordering Dr: Edita Cabral MD STUDY: X-RAY [...] at 12:18 EDT , Servi ce support [phone], CC: Edita Cabral MD; Erna Kingston DO Teaching Dietitian: Signed 30-Apr-2014 CTA Chest W/WO Contrast Result: Comments: See Note; NOTES: [facility] Imaging Services [address] [place] [address] CAT Scan Report MR#: [id number] Acct: [id number] Name: ELIZABETH TORO Rep #: [id number] : 1950 F 63 From: Hardeep Calix MD PCP: Erna Kingston DO Status: REG CLI Study: CTA Chest W/WO Contrast Date of Exam: 04/30/14 Exam# [id number] Ordering Dr: Erna Kingston DO STUDY: CTA [...] at 19 :01 EDT , Service support [phone], CC: Erna Kingston DO Teaching Dietitian: Signed Family History Unknown Family Member Name [...] smoker Vital Signs Date Test Result Details 23-Edb-54779:14 Temperature 98.2 f Comments: Method: Temporal Pulse [...] kg/m2 Body Surface Area Calculated 1.87 m2 94-Uno-041337:47 Comments: Down 20 pounds in last 3 [...] 0.00 cm Results Date Description Value Details 9-Fii-445598:57 CREATININE FINGERSTICK Comments: [facility] [address] [place], [place] [address] EGFR WB 55.0000 mL/min (Abnormal) CREATININE WB 1.1 mg/dL (Abnormal) Range: 0.55-1.02 33-Kbt-837603:19 D-Dimer (51889) Comments: PATIENT NOT FASTINGPERFORMED BY: [facility] Pohqck6528 [facility] [id number] D-Dimer 0.57 {mg/L_FEU} (Abnormal) Range: 0.00-0.49 Comments: According to the assay tie mill operator's published package insert, anormal (<0.50 mg/L FEU) D-dimer result in conjunction with a non-highclinical probability assessment, excludes deep vein thrombosis (D VT)and pulmonary embolism (PE) with high sensitivity. .D-dimer values increase with age and this can make VTE exclusion ofan older pop ulation difficult. To address this, the [employer], based on best available evidence [...] and an78 year old 0.80 mg/L FEU. 87-Ghg-424572:19 Troponin I (06185) Comments: PATIENT NOT FASTINGPERFORMED BY: [facility] [facility] [address] [id number] Troponin I <0.01 ng/mL (Normal) Range: 0.00-0.04 43-Zje-949369:19 CPK MB FRACTION (10879) Comments: PATIENT NOT FASTINGPERFORMED BY: [facility] [facility] [facility] [id number] Creatine Kinase (CK), MB 2.5 ng/mL (Normal) Range: 0.0-5.3 07-Mht-885718:19 CREATINE KINASE TOTAL (17892) Comments: PATIENT NOT FASTINGPERFORMED BY: [facility] [facility] [id number] Creatine Kinase,Total 103 U/L (Normal) Range: 24-173 32-Hpi-51723:16 CBC-Complete Blood Cnt No Diff Comments: [facility] [address] [place], [place], [phone] MPV 10.5 fL (Normal) Range: 6.2-12.0 PLT [...] Range: 4.4-11.0 :16 Microalb:Creat Ratio,Random UR Comments: [facility] [address] [place], [phone] MALB:CREAT Test not performed {mg/g_CRE} (Normal) MICROALBUMIN,UR < 5.0 mg/L (Normal) UR CREAT < 13.00 mg/dL (Normal) :16 PTHIN 51.5 pg/mL (Normal) Comments: [facility] [address] [place], [phone] Range: 18.4-80.1 :16 Renal Profile Comments: [facility] [address] [place], [phone] CO2 28.0 mmol/L (Normal) Range: 21.0-32.0 CL [...] Comments: Please note revised GLUCOSE reference range nxvbbgylp75/02/2018. 25-Vpd-59075:16 Vitamin D,25 Hydroxy Comments: [facility] [address] [place], [address] Vitamin D 25-OH 69.4 ng/mL (Normal) Range: 29.95-100.01 Comments: Vitamin D 25(OH) Status Range Deficiency <20 ng/mL (50nmol/L) Insuffciency 20 - 30 ng/mL (50 - 75 nmol/L) Sufficiency 30 - 100 ng/mL (75 - 250 nmol/L) Toxicity >100 ng/mL (>250 nmol/L) :04 HgA1C , Office (37352) HgA1C , Office 5.5 % (Normal) Range: 4.6 - 7.1 :23 CALCIFEDIOL (80701) Comments: PATIENT WAS FASTINGPERFORMED BY: [employer] [place] [id number] Vitamin D, 25-Hydroxy 43.2 ng/mL (Normal) Range: 30.0-100.0 Comments: Vitamin D deficiency has been defined by the Accident ofMedicine and an Endocrine Society practice guideline as alevel of serum 25-OH vitamin D less than 20 ng/mL (1,2).The Endocrine Society went on to further define vitamin Dinsufficiency as a level between 21 and 29 ng/mL (2).1. IOM (Accident of Medicine). 2010. Dietary reference intakes for calcium and D. [place]: The National Academies Press.2. Azael MF, Leslee NC, Phani-Benny PHILLIPS, et al. Evaluation, treatment, and prevention of vitamin D deficiency: an Endocrine Society clinical practice guideline. JCEM. 2010; 96(7):1911-30. :23 CBC, Platelets & Auto Diff Comments: PATIENT WAS FASTINGPERFORMED BY: [employer] [facility] [address] RoadDublin [place] [id number] (52857) Immature Grans (Abs) 0.0 {x10E3/uL} (Normal) Range: [...] 3.77-5.28 WBC 7.1 {x10E3/uL} (Normal) Range: 3.4-10.8 51-Xpm-59412:23 Metabolic Panel, Comprehensive Comments: PATIENT WAS FASTINGPERFORMED BY: LabCoAnn [facility]nsic CenterMvmqbf[address] [facility] [id number] (86114) ALT (SGPT) 15 [iU]/L (Normal) Range: 0-32 [...] Glucose, Serum 82 mg/dL (Normal) Range: 65-99 54-Dfp-70695:23 MICROALBUMIN: CREATININE RATIO Comments: PATIENT WAS FASTINGPERFORMED BY: [employer] [address] [facility] [id number] (72948) AND (39482) Alb/Creat Ratio <5.6 {mg/g_creat} (Normal) Range: 0.0-30.0 Albumin, Urine <3.0 ug/mL (Normal) Creatinine, Urine 53.5 mg/dL (Normal) 91-Oze-976263:31 Metabolic Panel, Basic Comments: PATIENT NOT FASTINGPERFORMED BY: Torn[employer] Medical SystemsAnn Klein Forensic CenterLjfeml[address] [facility] [id number] (13873) Calcium, Serum 9.9 mg/dL (Normal) Range: 8.7-10.3 [...] (Normal) Range: 65-99 02-Nov-20178:55 HgA1C , Office (64558) Comments: 5.5 HgA1C , Office 5.5 % (Normal) Range: 4.6 - 7.1 5-Ytb-538230:22 VITAMIN B12 AND FOLATES Comments: today; PATIENT NOT FASTINGPERFORMED BY: Packet DesignSaint Luke's HospitalCanadian SolarSelect Specialty [facility] [id number] (92526) Folate (Folic Acid), Serum >20.0 ng/mL (Normal) Comments: A serum folate concentration of less than 3.1 ng/mL isconsidered to represent clinical deficiency. Vitamin B12 655 pg/mL (Normal) Range: 232-1245 Comments: Please note reference interval change :58 CALCIFEDIOL (38981) Comments: PATIENT NOT FASTINGPERFORMED BY: BeMyGuestSelect [facility]ty Hospital [facility] [id number] Vitamin D, 25-Hydroxy 25.2 ng/mL (Abnormal) Range: 30.0-100.0 Comments: Vitamin D deficiency has been defined by the Accident ofMedicine and an Endocrine Society practice guideline as alevel of serum 25-OH vitamin D less than 20 ng/mL (1,2).The Endocrine Society went on to further define vitamin Dinsufficiency as a level between 21 and 29 ng/mL (2).1. IOM (Accident of Medicine). 2010. Dietary reference intakes for calcium and D. [place]: The National Academies Press.2. Azael MF, Leslee LEMON, Hillary PHILLIPS, et al. Evaluation, treatment, and prevention of vitamin D deficiency: an Endocrine Society clinical practice guideline. JCEM. 2010; 96(7):1911-30. 87-Rmn-618952:58 TSH (THYROID STIMULATING Comments: PATIENT NOT FASTINGPERFORMED BY: [employer] Tele[employer]rp Anthill [facility] [id number] HORMONE) (39254) TSH 2.410 {uIU/mL} (Normal) Range: 0.450-4.500 :58 CBC WITH MANUAL DIFF (36197) Comments: PATIENT NOT FASTINGPERFORMED BY: J.[facility] Memorial HospitalSmartZip AnalyticsAnn Klein Forensic CenterAquyyq[address] [facility] [id number] Immature Grans (Abs) 0.0 {x10E3/uL} (Normal) Range: [...] 3.77-5.28 WBC 7.7 {x10E3/uL} (Normal) Range: 3.4-10.8 :58 Metabolic Panel, Comprehensive Comments: PATIENT NOT FASTINGPERFORMED BY: LabCoAnn [facility] Forensic CenterSinjkl[address] [facility] [id number] (09250) ALT (SGPT) 13 [iU]/L (Normal) Range: 0-32 [...] Glucose, Serum 90 mg/dL (Normal) Range: 65-99 3-Ecx-478189:07 Bedside Glucose Comments: [facility] [address] [place] [address] BEDSIDE GLU 100 mg/dL (Normal) Range: 70-110 Comments: MANAGEMENT OF PATIENT CARE PER NURSING PROTOCOL 80-Buf-083350:14 D-Dimer Quantitative (DVT/PE) Comments: Order Date: 08/30/17Order Info: 05584-5 - [facility]IMERWDay[facility] Potpmiomfi6094 [facility] [place], [address] D-DIMER QUANT 0.35 {FEU/ug/m} (Normal) Range: 0.27-0.49 Comments: NORMAL D-Dimer level (<0.50) indicates no DVT or PE. 05-Ztj-817354:44 Blood Glucose , Office (35000) Blood Glucose , 129 (Normal) Office :2 Request Problem Final report Comments: PATIENT NOT FASTINGPERFORMED BY: LabAudrain [facility] U[address]ftn[address] [facility] [address] [id number] Information: MOUTH SRC:MO 1 (Normal) Comments: Inappropriate source for anaerobic culture. A routine aerobic culturewas initiated. Contact the Microbiology Lab for further information. :2 Test Code Change SPRCS (Normal) Comments: PATIENT NOT FASTINGPERFORMED BY: [facility]boothAud[facility] [address]kgj[address] [facility] [id number] 1 Comments: Please note that the Microbiology test code was changed to reflectthe specimen source or transport received. :21 Upper Respiratory Culture Comments: PATIENT NOT FASTINGPERFORMED BY: [facility] [address]ruzd[address] [facility] [id number] Result 1 RRF (Normal) Comments: Routine respiratory duyen Upper Respiratory Culture Final report (Normal) 19-Xtq-043328:59 Metabolic Panel, Comprehensive Comments: Jul 2017; PATIENT NOT FASTINGPERFORMED BY: [facility] Vtfete[address] [facility] [id number] (55938) ALT (SGPT) 16 [iU]/L (Normal) Range: 0-32 [...] Glucose, Serum 80 mg/dL (Normal) Range: 65-99 88-Xld-982458:59 MAGNESIUM (11094) Comments: today; PATIENT NOT FASTINGPERFORMED BY: LabCoAnn Klein Forensic CenterPhnkdi[address] [facility] [id number] Magnesium, Serum 2.2 mg/dL (Normal) Range: 1.6-2.3 :04 Blood Glucose , Office (55321) Blood Glucose , Office 111 (Normal) :04 HgA1C , Office (09044) HgA1C , Office 5.5 % (Normal) Range: 4.6 - 7.1 :03 CBC W/Diff, Automated Comments: [facility] [address]rx[address] [place], [place], [phone] ; another doc Absolute Lymph 2.35 {X10_3/ul} [...] (Normal) Range: 4.4-11.0 :03 Protein+Creatinine Ratio,Urine Comments: [facility] [address] [place], [place], [phone] PROT:CRE RATIO 403 {mg/g_CRE} (Abnormal) Range: 0-200 PROTEIN,UR.RAN. < 6.0 mg/dL (Normal) UR CREAT 13.90 mg/dL (Normal) :03 PTH,INTACT Comments: [facility] [address] [place], [place], [address] PTH,Intact 34 pg/mL (Normal) Range: 14-72 :03 Renal Profile Comments: [facility] [address] [place], [place], [address] CO2 26.0 mmol/L (Normal) Range: 21.0-32.0 CL [...] 7-18 GLU 109 mg/dL (Normal) Range: 70-110 67-Clm-28231:03 Vitamin D 1,25-Dihydroxy Comments: [facility] (refer to report for specific site)refer to report for address and phone number VITD ,13 [address] 48.5 pg/mL (Normal) Range: 19.9-79.3 Comments: Performed at: - [address] [id number] Director: Navdeep Medley MD, Phone: [phone] 24-Gnc-322722:06 Metabolic Panel, Comprehensive Comments: PATIENT NOT FASTINGPERFORMED BY: [facility] [facility] [address] [id number] (13980) ALT (SGPT) 11 [iU]/L (Normal) Range: 0-32 [...] Glucose, Serum 78 mg/dL (Normal) Range: 65-99 28-Bbw-752278:06 CBC, Platelets & Auto Diff Comments: PATIENT NOT FASTINGPERFORMED BY: [facility] [address]ve[address] [facility] [id number] (55580) Immature Grans (Abs) 0.0 {x10E3/uL} (Normal) Range: [...] 9.3 {x10E3/uL} (Normal) Range: 3.4-10.8 :06 TSH (40224) Comments: PATIENT NOT FASTINGPERFORMED BY: [employer] [facility] [id number] TSH 3.080 {uIU/mL} (Normal) Range: 0.450-4.500 :56 HgA1C , Office (58400) HgA1C , Office 5.5 % (Normal) Range: 4.6 - 7.1 :56 Blood Glucose , Office (25699) Blood Glucose , Office 81 (Normal) :09 LIPID PANEL (91292) Comments: PATIENT WAS FASTINGPERFORMED BY: [employer] [facility] [id number] LDL/HDL Ratio 2.0 {ratio_units} (Normal) Range: 0.0-3.2 Comments: LDL/HDL Ratio Men Women 1/2 Avg.Risk 1.0 1.5 Av g.Risk 3.6 3.2 2X Avg.Risk 6.2 5.0 3X Avg.Risk 8.0 6.1 LDL Cholesterol Calc 106 mg/dL (Abnormal) Range: 0-99 VLDL Cholesterol Hillary 25 mg/dL (Normal) Range: 5-40 HDL Cholesterol 53 mg/dL (Normal) Triglycerides 125 mg/dL (Normal) Range: 0-149 Cholesterol, Total 184 mg/dL (Normal) Range: 100-199 :09 METABOLIC PANEL, COMPREHENSIVE Comments: PATIENT WAS FASTINGPERFORMED BY: [employer] [facility] [id number] (17363) ALT (SGPT) 15 [iU]/L (Normal) Range: 0-32 [...] Glucose, Serum 104 mg/dL (Abnormal) Range: 65-99 20-Day-38742:04 METABOLIC PANEL, COMPREHENSIVE Comments: fax to Dr Henry; PATIENT WAS FASTINGPERFORMED BY: LabCoAnn [facility] CenterZpscfu[address] [facility] [id number] (71431) ALT (SGPT) 16 [iU]/L (Normal) Range: 0-32 [...] CREATININE RATIO Comments: PATIENT WAS FASTINGPERFORMED BY: [employer] [facility] [id number] (59231) AND (15034) Microalb/Creat Ratio <6.3 {mg/g_creat} (Normal) Range: 0.0-30.0 Microalbumin, Urine <3.0 ug/mL (Normal) Creatinine, Urine 48.0 mg/dL (Normal) :04 HGB A1C (77479) Comments: PATIENT WAS FASTINGPERFORMED BY: [employer]70 [facility] [id number] Hemoglobin A1c 5.7 % (Abnormal) Range: 4.8-5.6 Comments: . Pre-diabetes: 5.7 - 6.4 Diabetes: >6.4 Glycemic control for adults with diabetes: <7.0 :04 CALCIFEDIOL (89572) Comments: PATIENT WAS FASTINGPERFORMED BY: [employer] Ncqmrn[address] [facility] [id number] Vitamin D, 25-Hydroxy 24.2 ng/mL (Abnormal) Range: 30.0-100.0 Comments: Vitamin D deficiency has been defined by the Accident ofMedicine and an Endocrine Society practice guideline as alevel of serum 25-OH vitamin D less than 20 ng/mL (1,2).The Endocrine Society went on to further define vitamin Dinsufficiency as a level between 21 and 29 ng/mL (2).1. IOM (Accident of Medicine). 2010. Dietary reference intakes for calcium and D. [place]: The National Academies Press.2. Azael MF, Leslee NC, Hillary PHILLIPS, et al. Evaluation, treatment, and prevention of vitamin D deficiency: an Endocrine Society clinical practice guideline. JCEM. 2010; 96(7):1911-30. :04 TSH (THYROID STIMULATING Comments: PATIENT WAS FASTINGPERFORMED BY: [employer] Otwfyp[address] [facility] [id number] HORMONE) (46362) TSH 2.710 {uIU/mL} (Normal) Range: 0.450-4.500 :04 LIPID PANEL (35231) Comments: PATIENT WAS FASTINGPERFORMED BY: [employer] TelematicsAnn [facility] Forensic CenterQqqvvm3515 [facility] [id number] LDL/HDL Ratio 1.7 {ratio_units} (Normal) Range: 0.0-3.2 [...] AUT DIFF Comments: PATIENT WAS FASTINGPERFORMED BY: [facility] Bkuffn7144 [facility] [id number] (56735) Immature Grans (Abs) 0.0 {x10E3/uL} (Normal) Range: [...] up testing of positive sera with both WA-3 and MPO- ANCA enzyme immunoassays. As many as 5% serumsamp les are positive only by EIA. Ref. AM J Clin Ejtmhk5716;111:507-513. CYTOPLASMIC Ab <1:20 {titer} (Normal) :28 Anti-dsDNA Ab Comments: [facility] (refer to report for specific site)refer to report for address and phone number dsDNA AB <1 {IU/mL} (Normal) Range: 0-9 Comments: Negative <5 Equivocal 5 - 9 Positive >9Performed at: [facility] [place] [id number] D irector: Junior Valera PhD, Phone: [phone] 08-Sep-20168:28 Complement C3 Comments: Is Patient Fasting? Y[facility] (refer to report for specific site)refer to report for address and phone number COMP C3 127 mg/dL (Normal) Range: 82-167 Comments: Performed at: [facility] [address] [id number] Director: Junior Valera PhD, Phone: [phone] :28 Complement C4 Comments: Is Patient Fasting? [...] electrophoresis scan will follow via computer,mail, or network support administrator delivery. LEOPOLDO RESULT,S Comment: (Normal) Comments: Presence of monoclonal protein is unclear at this time. Suggest repeat in 3 to 6 months if clinically indicated. A/G RATIO 0.9 (Normal) Range: 0.7-1.7 GLOBULIN, TOTAL 3.8 g/dL (Normal) Range: 2.2-3.9 M-SPIKE (Normal) Comments: Not Observed GAMMA GLOBULIN 1.4 g/dL (Normal) Range: 0.4-1.8 BETA GLOBULIN 1.3 g/dL (Normal) Range: 0.7-1.3 IIYMX-6-ASJN 0.9 g/dL (Normal) Range: 0.4-1.0 EYRNT-3-RVFF 0.2 g/dL (Normal) Range: 0.0-0.4 ALBUMIN 3.4 g/dL (Normal) Range: 2.9-4.4 IMMUNOGL M 44 mg/dL (Normal) Range: 26-217 IMMUNO A 614 mg/dL (Abnormal) Range: 87-352 IMMUNO G 1353 mg/dL (Normal) Range: 700-1600 PROTEIN,TOTAL 7.2 g/dL (Normal) Range: 6.0-8.5 :28 Protein+Creatinine Ratio,Urine Comments: [facility] Lwdvsathhg37[address] [place], [place], [address] PROT:CRE RATIO 128 {mg/g_CRE} (Normal) Range: 0-200 PROTEIN,UR.RAN. 6.5 mg/dL (Normal) UR CREAT 50.60 mg/dL (Normal) :46 RENAL FUNCTION PANEL (69482) Comments: PATIENT NOT FASTINGPERFORMED BY: [employer] [facility] Nyqwzv[address] [facility] [id number] Phosphorus, Serum 4.2 mg/dL (Normal) Range: 2.5-4.5 :46 PT (PROTHROMBIN TIME) (28489) Comments: PATIENT NOT FASTINGPERFORMED BY: [employer] [facility] Xtkxje[address] [facility] [id number] Prothrombin Time 10.9 {sec} (Normal) Range: 9.1-12.0 INR 1.1 (Normal) Range: 0.8-1.2 Comments: Reference interval is for non-anticoagulated patients. . Suggested INR therapeutic range for Vitamin K anta gonist therapy: Standard Dose (moderate intensity therapeutic range): 2.0 - 3.0 Higher intensity therapeutic range 2.5 - 3.5 33-Hcx-427874:46 METABOLIC PANEL, COMPREHENSIVE Comments: PATIENT NOT FASTINGPERFORMED BY: [facility]oth[facility] [facility] [id number] (47721) ALT (SGPT) 24 [iU]/L (Normal) Range: 0-32 [...] Glucose, Serum 109 mg/dL (Abnormal) Range: 65-99 67-Dtu-760086:46 CBC, PLATELETS & AUT DIFF Comments: PATIENT NOT FASTINGPERFORMED BY: [facility] [facility] [id number] Information: [id number], [id number] (24166) Immature Grans (Abs) 0.0 {x10E3/uL} (Normal) Range: [...] (Normal) Range: 3.4-10.8 :23 HgA1C , Office (31689) HgA1C , Office 5.4 % (Normal) Range: 4.6 - 7.1 :16 CBC-Complete Blood Cnt No Diff Comments: [facility] [address] [place], [address] MPV 8.8 fL (Normal) Range: [...] 4.4-11.0 :16 Serum Creatinine AND GFR Comments: [facility] [address] [place], [address] Estimated CRCL 27.75 ml/min (Normal) EST GFR - AA 37 mL/min (Abnormal) Comments: GFR Calc EST GFR 30 mL/min (Abnormal) Comments: Non- GFR Calc CREAT,SERUM 1.77 mg/dL (Abnormal) Range: 0.55-1.20 Comments: The validity of the calculated GFR AND GFRAA in patients over70 years has not been determined. Clinical correlation isessential. 69-Opy-647142:15 Bedside Glucose Comments: [facility] LaboratoryPoint [facility] [address] [place] [address] BEDSIDE GLU 128 mg/dL (Abnormal) Range: 70-110 Comments: Policy and Physicians Orders followedMANAGEMENT OF PATIENT CARE PER NURSING PROTOCOL HYSTERECTOMY SPECIMEN See Note (Normal) Comments: [facility] [address] [place], [address] :39 Comments: Patient: ELIZABETH TORO : 1950 (65/F) Acct Num: [id number] Phys: Gonsalo PROCTOR,Gm Unit Num: [id number] Loc: MS1 OU489-0 Specimen: [id number] Received: 06/22/16 - 1336 Spec Ty pe: HYSTERECT TISSUES TISSUES: COMMENT Please make reference to previous specimen ([id number]) endometrial biopsy with diagnosis of consistent with atrophic endometrium and ([id number]) e ndometrium andpolyp, excision with diagnosis of [...] measures 1.2 x 0.7 x 0.6 cm. Doorkeeper sections are submitted inten cassettes as follows: [...] tube and ovary. / TONG:stormy 06/22/16 TC:1 CPT:73602 HEADER OPERATION: Lap robotic hysterectomy, BSO PRE-OP [...] diagnosis. Bilateral ovaries - no pathologic diagnosis. SJ:vicky fung 06/23/16 Signed Sivakumar Mallory 06/23/16 <signature on file> :31 Bedside Glucose Comments: [facility]Point [facility] Vagy[address] [place], [place] [address] BEDSIDE GLU 89 mg/dL (Normal) Range: 70-110 Comments: Physician Notified VBRBMANAGEMENT OF PATIENT CARE PER NURSING PROTOCOL :31 CBC-Complete Blood Cnt No Diff Comments: [facility] [address] [place], [place], [id number] MPV 10.1 fL (Normal) Range: 6.2-12.0 PLT [...] Range: 4.4-11.0 :31 Comprehensive Metabolic Profil Comments: [facility] [address] [place], [address] GAP 8 (Normal) Range: 5-15 [...] 7-18 GLU 87 mg/dL (Normal) Range: 70-110 27-Zak-632764:31 Hemoglobin A1c Comments: [facility] [address] [place], [address] HGB A1C 5.6 % (Normal) Range: 4.2-6.3 :31 Partial Thromboplast Time Comments: [facility] [address] [place], [address] PTT 27.7 s (Normal) Range: 24.1-36.2 79-Dok-345907:31 Prothrombin Time w/INR Comments: [facility] [address], [id number] INR 1.1 (Normal) PROTIME 13.4 s (Normal) Range: 11.7-14.9 99-Fzn-471486:31 Thyroid Stim Hormone (TSH) Comments: [facility] [address] [place], [address] TSH 2.46 {uIU/mL} (Normal) Range: 0.358-3.74 28-Qpy-742428:31 Type AND Screen Comments: Surgery Date: 06/22/16Date of Last Transfusion (if within last 3 months) NHx of Preganancy in last 3 Months NoEver experience any problems with transfusion(s)? NHx of Transfusion in last 3 Months N Reason for Type AND Screen/Red Cells: SURGERYTime: 0600SURGICAL PROCEDURE: [facility] [address]txxhexozv[address], [id number] Antibody Screen NEGATIVE (Normal) BLOOD TYPE GEL A NEGATIVE (Normal) 68-Sis-462224:28 Comprehensive Metabolic Profil Comments: Order Date: 06/10/16Order Date: 06/10/16[facility] [address], [id number] GAP 5 (Normal) Range: 5-15 CO2 28.0 [...] 7-18 GLU 79 mg/dL (Normal) Range: 70-110 99-Emb-496770:58 CBC W/Diff, Automated Comments: [facility] [address] [place], [address] Absolute Lymph 2.98 {X10_3/ul} (Normal) Range: 0.83-4.51 [...] 4.2-5.4 WBC 8.7 K/mm3 (Normal) Range: 4.4-11.0 94-Rhn-743366:58 Comprehensive Metabolic Profil Comments: Is Patient Taking Vitamins or Folic Acid Supplements? [facility] [address] [place], [place], [address] GAP 8 (Normal) Range: 5-15 CO2 29.0 [...] 7-18 GLU 95 mg/dL (Normal) Range: 70-110 68-Mtq-328883:58 Erythrocyte Sed Rate Comments: [facility] [address] [place], [address] SED RATE 25 mm/h (Normal) Range: 0-30 74-Lwz-435165:58 Folates, (Folic Acid) Comments: Is Patient Taking Vitamins or Folic Acid Supplements? [facility] [address] [place], [address] FOLATES 9.60 ng/mL (Normal) Range: 3.1-17.5 87-Qnl-966882:58 Thyroid Stim Hormone (TSH) Comments: Is Patient Taking Vitamins or Folic Acid Supplements? [facility] [address] [place], [address] TSH 2.58 {uIU/mL} (Normal) Range: 0.358-3.74 50-Bge-682318:58 Vitamin B12 543 pg/mL (Normal) Comments: [facility] [address] [place], [address] Range: 211-911 13-Nza-067491:07 Urinalysis, Office (74314) UA - LEUKOCYTE ESTERASE Trace (Normal) UA - NITRITE Negative (Normal) URINE UROBILINGN SHARIFA TIMED Normal mg/dL (Normal) UA - PROTEIN Negative mg/dL (Normal) UA - PH 6.5 (Normal) UA - BLOOD Hemolyzed Trace (Normal) UA - SPECIFIC GRAVITY 1.005 (Normal) UA - KETONES Negative mg/dL (Normal) UA - BILIRUBIN Negative (Normal) UA - GLUCOSE Negative (Normal) 60-Fst-312532:04 URINE VERÓNICA CULTURE-SHARIFA COL Comments: PATIENT NOT FASTINGPERFORMED BY: [facility] Kaqbxc[address] [facility] [id number] Information: [place] [id number] COUNT (01911) Antimicrobial MIHEAD (Normal) Comments: S = Susceptible; [...] (Abnormal) Urine Final report Culture,Comprehensive (Abnormal) [facility] See Note (Normal) Comments: [facility] [address] [place], [address]:04 Comments: Patient: ELIZABETH TORO : 1950 (65/F) Acct Num: [id number] Phys: Junior Pean Unit Num: [id number] Loc: LABSPEC Specimen: [id number] Received: 04/21/161637 Spec Type: EGD BIOPSY TISSUES [...] in one cassette. / SJ:stormy 04/22/16 TC:3 CPT:41787 HEADER OPERATION: EGD with biopsy PRE-OP DIAGNOSIS: Dysphagia TISSUE SUBMITTED: Esophageal biopsy, R/O EE MICROSCOPIC DESCRIP TION Slides are reviewed. MICROSCOPIC DIAGNOSIS Esophageal biopsy: Fragments of squamous epithelium with mild chronic inflammation. See comment. SJ:stormy 04/23/16 Signed Sivakumar Mallory 04/23/16 <signature on file> CERVICAL See Note (Normal) Comments: [facility] [address] [place], [address]:15 Comments: Patient: ELIZABETH TORO : 1950 (65/F) Acct Num: [id number] Phys: Gm Brush MD Unit Num: [id number] Loc: [facility] Specimen: [id number] Received: 04/13/161335 Spec Type: CER V TISSUES [...] one cassette. / AM: 04/13/16 TC:5 CPT: 69799 x 2 HEADER OPERATION: Hysteroscopy, diagnostic, D AND C PRE-OP DIAGNOSIS: Postmenopausal bleeding TISSUE SUBMITTED: A - Endocervical curettings, B - Endometrial curettings and polyp [facility] DESCRIPTION Slides are reviewed. MICROSCOPIC DIAGNOSIS A. Endocervix, curettings: Strips of benign superficial endocervix. Rare strips of benign superficial ectocervix. B. Endom etrium and polyp, excision: Benign endometrial polyp with simple cystic hyperplasia without atypia. Scant strips of benign superficial endometrium. AM: 04/14/16 Signed Ras [facility] 04/14/16 <signature on file> :04 Bedside Glucose Comments: [facility] [address] [place], [place] [address] BEDSIDE GLU 98 mg/dL (Normal) Range: 70-110 Comments: No Action RequiredMANAGEMENT OF PATIENT CARE PER NURSING PROTOCOL :08 CBC-Complete Blood Cnt No Diff Comments: [facility] [address] [place], [address] MPV 9.4 fL (Normal) Range: [...] 4.2-5.4 WBC 7.1 K/mm3 (Normal) Range: 4.4-11.0 09-Apr-20169:08 Comprehensive Metabolic Profil Comments: [facility] [address] [place], [address] GAP 8 (Normal) Range: 5-15 CO2 24.0 [...] Range: 70-110 :08 Partial Thromboplast Time Comments: [facility] [address]vregivegt[address] [place], [address] PTT 29.8 s (Normal) Range: 24.1-36.2 :08 Prothrombin Time w/INR Comments: [facility] [address] [place], [address] INR 1.1 (Normal) PROTIME 13.6 s (Normal) Range: 11.7-14.9 :08 Type AND Screen Comments: Surgery Date: 04/13/16Date of Last Transfusion (if within last 3 months) NHx of Preganancy in last 3 Months NoEver experience any problems with transfusion(s)? NHx of Transfusion in last 3 Months N Reason for Type AND Screen/Red Cells: SURGERYTime: 1015SURGICAL PROCEDURE: [facility] [address]hengdf[address] [place], [id number] Antibody Screen NEGATIVE (Normal) BLOOD TYPE GEL A NEGATIVE (Normal) ENDOMETRIAL See Note (Normal) Comments: [facility] [address] [place], [address] 6:00 BX/CURETTINGS Comments: Patient: ELIZABETH TORO : 1950 (65/F) Acct Num: [id number] Phys: Gm Brush MD Unit Num: [id number] Loc: LABSPEC Specimen: [id number] Received: 03/26/16 - 1600 Spec Type: ENDOM [...] t otally submitted in one cassette. / AM:rg 03/27/16 TC:4 CPT:47285 HEADER OPERATION: Endometrial biopsy PRE-OP DIAGNOSIS: N95.0 TISSUE SUBMITTED: EMB MICROSCOPIC DESCRIPTION Slides are vicky boyer. MICROSCOPIC DIAGNOSIS Endometrial biopsy: Scant strips of benign endometrial epithelium, consistent with atrophic endometrium. Fragments of benign endocervical epithelium and mucous. SJ:stormy 03/31/16 Signed Sivakumar Mallory 03/31/16 <signature on file> 77-Eli-802717:00 PAP I-G w/ Reflex to HR Comments: CYTOLOGY INFORMATION:- CLINICAL INFORMATION: POSTMENOPAUSAL- DATE LMP/MENOPAUSE: MENOPAUSE- COLLECTION VIAL: Thin Prep Vial- EMERGENCY ROOM TECHNICIAN SOURCE: CERVICAL/ENDOCERVICAL- COLLECTION TECHNIQUE: BRUSH/ SPATULASpeci HPV men Comment: [id number] Comment: No. of containers..01 CYTYC Thin Prep VialLabCorp (refer to report for specific site)refer to report for address and phone number HPV RFLX Comment (Normal) Comments: The HPV DNA reflex criteria were not met with this specimenresult therefore, no HPV testing was performed.Performed at: [facility] [address] [id number] Director: Annamaria Menezes MD, Phone: [phone] PAPSMR Comment (Normal) Comments: The Pap smear [...] system. PERFORM Comment (Normal) Comments: Adeline Singleton, Cash Register Operator (ASCP) ADEQ Comment (Normal) Comments: Satisfactory for evaluation. DIAGN Comment (Normal) Comments: NEGATIVE FOR INTRAEPITHELIAL LESION AND MALIGNANCY. 72-Rvj-31010:20 Urinalysis, Complete Comments: How was Urine Obtained? ENTRY LEVEL WEB DEVELOPER TO SPECIFYKettering Health [facility] [address]joimz[address] [place], [place], [address] MUCUS, URINE 0 SEEN {/hpf} (Normal) BACTERIA [...] (Normal) CLARITY Clear (Normal) COLOR Straw (Normal) 98-Uny-864115:50 Basic Metabolic Profile (BMP) Comments: [facility] [address]wl[address] [place], [place], [address] GAP 7 (Normal) Range: 5-15 CO2 26.0 [...] <126 mg/dLsuggests IMPAIRED HOMEOSTASIS per A.D.A. criteria. 14-Oaa-189622:50 CBC W/Diff, Automated Comments: [facility] [address] [place], [address] Absolute Lymph 3.53 {X10_3/ul} (Normal) Range: 0.83-4.51 [...] K/mm3 (Normal) Range: 4.4-11.0 :02 Rapid Flu (32236 x 2) Influenza A Ag negative (Normal) 0-Eqp-517891:31 SJOGREN ANTIBOIDIES Comments: PATIENT NOT FASTINGPERFORMED BY: [facility] Ddjsyb[address] [facility] [id number] Information: [id number] (ANTI-SS-A/ANTI-SS-B) (22745) Sjogren's Anti-SS-B <0.2 {AI} (Normal) Range: 0.0-0.9 Sjogren's Anti-SS-A <0.2 {AI} (Normal) Range: 0.0-0.9 :28 Rapid Strep Test, Office (66904) Rapid Strep Test, Office Negative (Normal) :37 Throat Culture (33258) Comments: PATIENT NOT FASTINGPERFORMED BY: [facility] Jpsnra[address] [facility] [id number] Information: SRC:IVETTKeith [id number] Result 1 BETAGB (Abnormal) Comments: Beta hemolytic [...] 2011) Upper Respiratory Culture Final report (Abnormal) 2-Igo-659330:45 Basic Metabolic Profile (BMP) Comments: 'TROP' Serial specimen #1, #2, #3, or #4: 1[facility] [address]xjrvjn[address] [place], [place], [address] GAP 9 (Normal) Range: 5-15 CO2 23.0 [...] 7-18 GLU 92 mg/dL (Normal) Range: 70-110 0-Has-511787:45 CBC W/Diff, Automated Comments: [facility] [address] [place], [place], [address] Absolute Lymph 2.03 {X10_3/ul} (Normal) Range: 0.83-4.51 [...] Serial specimen #1, #2, #3, or #4: 1[facility] [address]kmwq[address] [place], [place], [address] TSH 1.50 {uIU/mL} (Normal) Range: 0.358-3.74 7-Wjs-899165:45 Troponin-I Comments: 'TROP' Serial specimen #1, #2, #3, or #4: 1W[facility] [address]llad[address] [place], [address] TROPONIN-I < 0.02 ng/mL (Normal) Comments: TROPONIN-I EXPECTED VALUES <0.05 NEGATIVE 0.06 - 0.59 AT RISK OF SD > OR = 0.60 SUGGEST SD :53 Pap IG (Image Comments: Source.............Cervical;EndocervicalNo. of containers..01 CYTYC Thin Prep VialPATIENT NOT FASTINGPERFORMED BY: =G [facility] Zjhljrbfwl307 [facility] [id number] BY: WB L Guided) [facility] Djgrnvdipw025 [facility] W [id number] Note: PAPSMR (Normal) Comments: The Pap smear [...] of partially obscuring exudate are present.Z00.00Adeline Singleton Cash Register Operator (ASCP) :01 HgA1C , Office (27888) HgA1C , Office 5.9 % (Normal) Range: 4.6 - 7.1 :00 Blood Glucose , Office (67412) Blood Glucose , Office 126 (Normal) :53 Thin Prep Pap Comments: Source.............Cervical;EndocervicalNo. of containers..01 CYTYC Thin Prep VialPATIENT NOT FASTINGPERFORMED BY: =G [facility] [address] [id number] BY: SARAY Jose (34561) [facility] [address]xcvgulk[address] [id number] Information: [id number] Age Gdln ACOG Testing AGE4 (Normal) Comments: <21 or >65 or no age provided 19-Gom-27106:34 METABOLIC PANEL, Comments: PATIENT WAS FASTINGPERFORMED BY: EMIL [facility] S[address]jx[address] [facility] [id number] Information: [id number] COMPREHENSIVE (34111) ALT (SGPT) 18 [iU]/L (Normal) Range: 0-32 [...] 83 mg/dL (Normal) Range: 65-99 :34 CALCIFIDIOL (79424) VIT D 25 Comments: PATIENT WAS FASTINGPERFORMED BY: RedboothPemiscot Memorial Health SystemsIjumpi58[address] [facility] [id number] Vitamin D, 25-Hydroxy 59.6 ng/mL (Normal) Range: 30.0-100.0 Comments: Vitamin D deficiency has been defined by the Accident ofAfrican Grain Companycine and an Endocrine Society practice guideline as alevel of serum 25-OH vitamin D less than 20 ng/mL (1,2).The Endocrine Society went on to further define vitamin Dinsufficiency as a level between 21 and 29 ng/mL (2).1. IOM (Accident of Medicine). 2010. Dietary reference intakes for calcium and D. [place]: The National AcademNauchime.org Press.2. Azael MF, Leslee NC, Hillary PHILLIPS, et al. Evaluation, treatment, and prevention of vitamin D deficiency: an Endocrine Society clinical practice guideline. JCEM. 2010; 96(7):1911-30. 60-Ckm-905710:37 HgA1C , Office (45488) HgA1C , Office 6.1 % (Normal) Range: 4.6 - 7.1 :37 Blood Glucose , Office (96359) Blood Glucose , Office 107 (Normal) :27 TSH (THYROID STIMULATING Comments: PATIENT WAS FASTINGPERFORMED BY: [facility] [facility] [id number] HORMONE) (67494) TSH 2.480 {uIU/mL} (Normal) Range: 0.450-4.500 :27 CALCIFEDIOL (08907) Comments: PATIENT WAS FASTINGPERFORMED BY: [facility] [facility] [id number] Vitamin D, 25-Hydroxy 16.7 ng/mL (Abnormal) Range: 30.0-100.0 Comments: Vitamin D deficiency has been defined by the Accident ofAfrican Grain Companycine and an Endocrine Society practice guideline as alevel of serum 25-OH vitamin D less than 20 ng/mL (1,2).The Endocrine Society went on to further define vitamin Dinsufficiency as a level between 21 and 29 ng/mL (2).1. IOM (Accident of Medicine). 2010. Dietary reference intakes for calcium and D. [place]: The National Academies Press.2. Azael MF, Leslee LEMON, Hillary PHILLIPS, et al. Evaluation, treatment, and prevention of vitamin D deficiency: an Endocrine Society clinical practice guideline. JCEM. 2010; 96(7):1911-30. :27 LIPID PANEL (24971) Comments: PATIENT WAS FASTINGPERFORMED BY: [employer] [facility] [id number] LDL/HDL Ratio 1.2 {ratio_units} (Normal) Range: 0.0-3.2 [...] PANEL, COMPREHENSIVE Comments: PATIENT WAS FASTINGPERFORMED BY: [employer] [facility] [id number] (88603) ALT (SGPT) 19 [iU]/L (Normal) Range: 0-32 [...] Glucose, Serum 121 mg/dL (Abnormal) Range: 65-99 87-Rzs-37105:27 CBC, PLATELETS & MANUAL Comments: PATIENT WAS FASTINGPERFORMED BY: [facility] [address]loa[address] [facility] [id number] Information: [id number], [id number] DIFF (09032) Immature Grans (Abs) 0.0 {x10E3/uL} (Normal) Range: [...] 3.77-5.28 WBC 7.0 {x10E3/uL} (Normal) Range: 3.4-10.8 22-Abe-555929:31 CREATININE CLEARANCE Comments: PATIENT NOT FASTINGPERFORMED BY: [facility] Mobile TelematicsAnn Klein Forensic CenterYhwhmb[address] [facility] [id number] Information: [id number] START @9AM FINISH 01/28/15@9 AM ([id number]) Creatinine Clearance 53 mL/min (Abnormal) Range: 88-128 Comments: The above range is based on 1.73 square meter average body surfacearea. Creatinine, Ur 24hr 1075.3 {mg/24_hr} (Normal) Range: 800.0-1800.0 Creatinine, Urine 39.1 mg/dL (Normal) Range: 15.0-278.0 eGFR If Africn Am 45 mL/min/1.73 (Abnormal) eGFR If NonAfricn Am 39 mL/min/1.73 (Abnormal) Creatinine, Serum 1.40 mg/dL (Abnormal) Range: 0.57-1.00 [id number] Total Protein,24 Hour Urine Comments: PATIENT NOT FASTINGPERFORMED BY: Cambridge Mobile TelematicsAnn Klein Forensic CenterUeqasb[address] [facility] [id number] (45239) Prot,24hr calculated 357.5 {mg/24_hr} (Abnormal) Range: 30.0-150.0 Protein,Total,Urine 13.0 mg/dL (Normal) Range: 0.0-15.0 :28 HgA1C , Office (02344) HgA1C , Office 5.9 % (Normal) Range: 4.6 - 7.1 :28 Blood Glucose , Office (76626) Blood Glucose , Office 136 (Normal) :53 TSH (80352) Comments: PATIENT WAS FASTINGPERFORMED BY: [facility] [facility] [address] [id number] TSH 4.370 {uIU/mL} (Normal) Range: 0.450-4.500 :53 MICROALBUMIN: CREATININE RATIO Comments: PATIENT WAS FASTINGPERFORMED BY: [facility] [facility] [address] [facility] [id number] (44334) AND (12890) Microalb/Creat Ratio 5.0 {mg/g_creat} (Normal) Range: 0.0-30.0 Microalbumin, Urine 4.5 ug/mL (Normal) Range: 0.0-17.0 Creatinine, Urine 90.5 mg/dL (Normal) Range: 15.0-278.0 :53 METABOLIC PANEL, COMPREHENSIVE Comments: PATIENT WAS FASTINGPERFORMED BY: [facility] [facility] [address] [id number] (72070) ALT (SGPT) 20 [iU]/L (Normal) Range: 0-32 [...] mg/dL (Abnormal) Range: 65-99 :53 LIPID PANEL (68076) Comments: PATIENT WAS FASTINGPERFORMED BY: Tornado Medical SystemsAnn Klein Forensic CenterMxvglm[address] [facility] [id number] LDL/HDL Ratio 1.4 {ratio_units} (Normal) Range: 0.0-3.2 [...] DIFF WBC Comments: PATIENT WAS FASTINGPERFORMED BY: [facility] Mobile TelematicsAnn Klein Forensic CenterYedppz[address] [facility] [id number] Information: [id number] (12862) Immature Grans (Abs) 0.0 {x10E3/uL} (Normal) Range: [...] 7.8 {x10E3/uL} (Normal) Range: 3.4-10.8 :53 CALCIFIDIOL (06246) VIT D 25 Comments: PATIENT WAS FASTINGPERFORMED BY: [facility] [facility] [address] [id number] Vitamin D, 25-Hydroxy 22.5 ng/mL (Abnormal) Range: 30.0-100.0 Comments: Vitamin D deficiency has been defined by the Accident ofKindred Healthcarecine and an Endocrine Society practice guideline as alevel of serum 25-OH vitamin D less than 20 ng/mL (1,2).The Endocrine Society went on to further define vitamin Dinsufficiency as a level between 21 and 29 ng/mL (2).1. IOM (Accident of Medicine). 2010. Dietary reference intakes for calcium and D. [place]: The National Academies Press.2. Azael MF, Leslee LEMON, Hillary PHILLIPS, et al. Evaluation, treatment, and prevention of vitamin D deficiency: an Endocrine Society clinical practice guideline. JCEM. 2010; 96(7):1911-30. :22 HgA1C , Office (39806) HgA1C , Office 6.0 % (Normal) Range: 4.6 - 7.1 :22 Blood Glucose , Office (81826) Blood Glucose , Office 132 (Normal) :27 Blood Glucose , Office (37250) Blood Glucose , Office 114 (Normal) :27 HgA1C , Office (54138) HgA1C , Office 5.9 % (Normal) Range: 4.6 - 7.1 :00 Basic Metabolic Panel (8) Comments: PATIENT NOT FASTINGPERFORMED BY: [employer] [address]ijfh[address] [facility] [id number] BY: [employer] [id number] Calcium, Serum 9.8 mg/dL (Normal) Range: 8.6-10.2 [...] 287 {mOsmol/kg} Comments: PATIENT NOT FASTINGPERFORMED BY: [employer] Knbxcg[address] [facility] [id number] BY: [place] Mobile TelematicsWalter Ville 554377 [facility] [id number] 00 (Normal) Range: 280-301 : Osmolality, Urine 259 {mOsmol/kg} Comments: PATIENT NOT FASTINGPERFORMED BY: [employer] Aswhhh[address] [facility] [id number] BY: [place]boothLori [place] 643797 [facility] [id number] 00 (Normal) Comments: 24 hr : 300 - 900 Random: 50 - 1400 After 12hr fluid restriction: >850 03-May-20142: Sodium, Urine 11 mmol/L (Normal) Comments: PATIENT NOT FASTINGPERFORMED BY: [facility] [facility] [address] [facility] [id number] BY: [place]oth[place] 643797 [facility] [id number] 00 4-Kmc-519742:06 Metabolic Panel, Basic Comments: PATIENT NOT FASTINGPERFORMED BY: [place]boothK[place] 15157[address] [facility] [id number] Information: [id number] (22934) Calcium, Serum 9.9 mg/dL (Normal) Range: 8.6-10.2 [...] Glucose, Serum 108 mg/dL (Abnormal) Range: 65-99 43-Apb-615394:34 CBCD Comments: pt has apt with db [...] 4.2-5.4 WBC 9.6 K/mm3 (Normal) Range: 4.4-11.0 61-Phy-774244:34 CMP Comments: 'TROP' Serial specimen #1, #2, [...] 7-18 GLU 88 mg/dL (Normal) Range: 70-110 41-Wke-348298:34 DDIMQ 0.29 {FEU/ug/m} (Normal) Range: 0.27-0.49 Comments: NORMAL D-Dimer level (<0.50) indicates no DVT or PE. :34 TROP < 0.02 ng/mL (Normal) Comments: 'TROP' Serial specimen #1, #2, #3, or #4: 1 Comments: TROPONIN-I EXPECTED VALUES <0.05 NEGATIVE0.06 - 0.59 AT RISK OF SD> OR = 0.60 SUGGEST SD :34 TSH 2.32 {uIU/mL} (Normal) Comments: 'TROP' Serial specimen #1, #2, #3, or #4: 1 Range: 0.358-3.74 01-May-20140:00 Microscopic Examination Comments: PATIENT WAS FASTINGPERFORMED BY: [employer]6370 [facility] [id number] Bacteria Few (Normal) Mucus Threads Present (Normal) Epithelial Cells (non renal) 0-10 {/hpf} (Normal) Range: 0 - 10 RBC 0-2 {/hpf} (Normal) Range: 0 - 2 WBC 11-30 {/hpf} (Abnormal) Range: 0 - 5 73-Din-250657:15 TSH (71194) Comments: PATIENT WAS FASTINGPERFORMED BY: [employer]6370 [facility] [place] [id number] TSH 3.310 {uIU/mL} (Normal) Range: 0.450-4.500 62-Jse-883343:15 CALCIFIDIOL (22045) VIT D 25 Comments: PATIENT WAS FASTINGPERFORMED BY: [employer] [facility] [id number] Vitamin D, 25-Hydroxy 35.7 ng/mL (Normal) Range: 30.0-100.0 Comments: Vitamin D deficiency has been defined by the Accident ofMedicine and an Endocrine Society practice guideline as alevel of serum 25-OH vitamin D less than 20 ng/mL (1,2).The Endocrine Society went on to further define vitamin Dinsufficiency as a level between 21 and 29 ng/mL (2).1. IOM (Accident of Medicine). 2010. Dietary reference intakes for calcium and D. [place]: The National Academies Press.2. Azael MF, Leslee LEMON, Hillary PHILLPIS, et al. Evaluation, treatment, and prevention of vitamin D deficiency: an Endocrine Society clinical practice guideline. JCEM. 2010; 96(7):1911-30. 33-Szb-096572:15 URINALYSIS, W/ MICRO (53247) Comments: PATIENT WAS FASTINGPERFORMED BY: [employer] [place] [id number] Microscopic Examination See below: (Normal) Nitrite, Urine Positive (Abnormal) Bilirubin Negative (Normal) Urobilinogen,Semi-Qn 0.2 mg/dL (Normal) Range: 0.0-1.9 Ketones Negative (Normal) Occult Blood Negative (Normal) Glucose Negative (Normal) Protein Negative (Normal) Appearance Clear (Normal) WBC Esterase 2+ (Abnormal) pH 6.5 (Normal) Range: 5.0-7.5 Urine-Color Yellow (Normal) Specific Nesbit 1.015 (Normal) Range: 1.005-1.030 86-Gcn-556385:15 METABOLIC PANEL, COMPREHENSIVE Comments: PATIENT WAS FASTINGPERFORMED BY: [employer]6370 SocialDiabetesSelect [facility] [id number] (57678) ALT (SGPT) 19 [iU]/L (Normal) Range: 0-32 [...] Glucose, Serum 118 mg/dL (Abnormal) Range: 65-99 05-Qvq-787031:15 LIPID PANEL (49801) Comments: PATIENT WAS FASTINGPERFORMED BY: [employer] Ivxzlk[address] [facility] [id number] LDL/HDL Ratio 1.7 {ratio_units} (Normal) Range: 0.0-3.2 LDL Cholesterol Calc 90 mg/dL (Normal) Range: 0-99 VLDL Cholesterol Hillary 33 mg/dL (Normal) Range: 5-40 HDL Cholesterol 53 mg/dL (Normal) Comments: According to ATP-III Guidelines, HDL-C >59 mg/dL is considered anegative risk factor for CHD. Triglycerides 166 mg/dL (Abnormal) Range: 0-149 Cholesterol, Total 176 mg/dL (Normal) Range: 100-199 30-Ght-435044:15 CBC WITH MANUAL DIFF Comments: PATIENT WAS FASTINGPERFORMED BY: [facility] Mobile TelematicsAnn Klein Forensic CenterCapped[address] [facility] [id number] Information: [id number] (70391) Immature Grans (Abs) 0.0 {x10E3/uL} (Normal) Range: [...] 3.77-5.28 WBC 7.0 {x10E3/uL} (Normal) Range: 3.4-10.8 01-Lhl-639349:20 Blood Glucose , Office (27895) Blood Glucose , Office 102 (Normal) 86-Dfj-438987:20 HgA1C , Office (39010) HgA1C , Office 6.0 % (Normal) Range: 4.6 - 7.1 :27 URINE VERÓNICA CULTURE-IDENTIFICATN Comments: PATIENT NOT FASTINGPERFORMED BY: [facility] Qoivtp[address] [facility] [id number] Information: [id number] (50357) Result 1 NG36 (Normal) Comments: No growth in 36 - 48 hours. Urine Culture,Comprehensive Final report (Normal) 2-Uyl-461987:03 URINALYSIS (40046) URINALYSIS neg for all (Normal) :31 URINE VERÓNICA CULTURE-SHARIFA COL Comments: PATIENT NOT FASTINGPERFORMED BY: LabCoAnn Klein Forensic CenterVlrqlq34[address] [facility] [id number] Information: SRC:UR [id number] COUNT (84558) Antimicrobial MIHEAD (Normal) Comments: S = Susceptible; [...] mL (Normal) Urine Final report Culture,Comprehensive (Normal) 80-Yvf-96780:26 Urinalysis, Office (82170) UA - LEUKOCYTE ESTERASE Moderate (Normal) UA - NITRITE Negative (Normal) URINE UROBILINGN SHARIFA TIMED Normal mg/dL (Normal) UA - PROTEIN Negative mg/dL (Normal) UA - PH 5 (Abnormal) UA - BLOOD Hemolyzed Small (Normal) UA - SPECIFIC GRAVITY 1.025 (Normal) UA - KETONES Negative mg/dL (Normal) UA - BILIRUBIN Negative (Normal) UA - GLUCOSE Negative (Normal) 05-Feb-20149:52 LIPID PANEL (94753) Comments: PATIENT WAS FASTINGPERFORMED BY: [facility] Zpdaen[address] [facility] [id number] Information: [id number] LDL/HDL Ratio 2.1 {ratio_units} (Normal) Range: 0.0-3.2 LDL Cholesterol Calc 111 mg/dL (Abnormal) Range: 0-99 VLDL Cholesterol Hillary 31 mg/dL (Normal) Range: 5-40 HDL Cholesterol 53 mg/dL (Normal) Comments: According to ATP-III Guidelines, HDL-C >59 mg/dL is considered anegative risk factor for CHD. Triglycerides 156 mg/dL (Abnormal) Range: 0-149 Cholesterol, Total 195 mg/dL (Normal) Range: 100-199 :52 HEPATIC FUNCTION PANEL (88621) Comments: PATIENT WAS FASTINGPERFORMED BY: [employer] Mcpfwt[address] [facility] [id number] ALT (SGPT) 17 [iU]/L (Normal) Range: 0-32 AST (SGOT) 23 [iU]/L (Normal) Range: 0-40 Alkaline Phosphatase, S 57 [iU]/L (Normal) Range: 39-117 Bilirubin, Direct 0.08 mg/dL (Normal) Range: 0.00-0.40 Bilirubin, Total 0.3 mg/dL (Normal) Range: 0.0-1.2 Albumin, Serum 4.3 g/dL (Normal) Range: 3.6-4.8 Protein, Total, Serum 7.2 g/dL (Normal) Range: 6.0-8.5 :52 CALCIFEDIOL (54580) Comments: PATIENT WAS FASTINGPERFORMED BY: [facility] Dgkoyy[address] [facility] [id number] Vitamin D, 25-Hydroxy 13.8 ng/mL (Abnormal) Range: 30.0-100.0 Comments: Vitamin D deficiency has been defined by the Accident ofMedicine and an Endocrine Society practice guideline as alevel of serum 25-OH vitamin D less than 20 ng/mL (1,2).The Endocrine Society went on to further define vitamin Dinsufficiency as a level between 21 and 29 ng/mL (2).1. IOM (Accident of Medicine). 2010. Dietary reference intakes for calcium and D. [place]: The National Academies Press.2. Azael MF, Leslee NC, Hillary PHILLIPS, et al. Evaluation, treatment, and prevention of vitamin D deficiency: an Endocrine Society clinical practice guideline. JCEM. 2010; 96(7):1911-30. 84-Fdo-053147:38 Blood Glucose , Office (92288) Blood Glucose , Office 114 (Normal) 89-Fro-223816:38 HgA1C , Office (15934) HgA1C , Office 5.8 % (Normal) Range: 4.6 - 7.1 02-Qbn-979682:23 Urinalysis, Office (37728) UA - BILIRUBIN Negative (Normal) UA - BLOOD Hemolyzed Trace (Normal) UA - GLUCOSE Negative (Normal) UA - KETONES Negative mg/dL (Normal) UA - LEUKOCYTE ESTERASE Small (Normal) UA - NITRITE Negative (Normal) UA - PH 5.0 (Normal) UA - PROTEIN Negative mg/dL (Normal) UA - SPECIFIC GRAVITY 1.025 (Normal) URINE UROBILINGN SHARIFA TIMED Normal mg/dL (Normal) 09-Jzb-975091:50 Metabolic Panel, Basic Comments: PATIENT NOT FASTINGPERFORMED BY: [facility] [facility] [address] [place] [id number] Information: [id number] (13064) Calcium, Serum 9.9 mg/dL (Normal) Range: 8.6-10.2 [...] Glucose, Serum 84 mg/dL (Normal) Range: 65-99 :39 BRAIN WITHOUT CONTRAST Radiology Report See Note [...] Sweeney M.D.July 12, 2013 at 4:19:02 PM [id number] Signed PV/PV If you are the referring physician and would like to consult with theradiologist who provided this interpretation, please contact Petrona molina M.D. at [phone]. If this radiologist is unavailable, youwillbe directed to another radiologist to assist. If you are a patient with a question regarding this report, pleasecontactyour referring physician directly. Professional Interpretation Provided By: [employer], Phone , These documents contain legally protected [...] 07/12/13 1622 Sign by: Petrona Meek MD 8-Rin-997763:39 CRE GFRAA 45 mL/min (Abnormal) GFR 37 [...] 3000 mL (Normal) UPCT 24.0 {HOURS} (Normal) 1-Qmi-171516:39 Metabolic Panel, Basic Comments: recheck in one week; PATIENT NOT FASTINGPERFORMED BY: LabCoAnn Klein Forensic CenterOgopkt[address] [facility] [id number] Information: [id number] (72537) Calcium, Serum 9.7 mg/dL (Normal) Range: 8.6-10.2 [...] Glucose, Serum 109 mg/dL (Abnormal) Range: 65-99 32-Rho-20575:50 Metabolic Panel, Basic Comments: PATIENT NOT FASTINGPERFORMED BY: [place] [address] [facility] [id number] Information: [id number] (75169) Calcium, Serum 9.5 mg/dL (Normal) Range: 8.6-10.2 [...] (Abnormal) Range: 65-99 :29 HgA1C , Office (88763) HgA1C , Office 5.7 % (Normal) Range: 4.6 - 7.1 :14 TSH (92504) Comments: PATIENT NOT FASTINGPERFORMED BY: [facility] [facility] [address] [place] [id number] TSH 2.850 {uIU/mL} (Normal) Range: 0.450-4.500 :14 CBC, Platelets & Auto Comments: PATIENT NOT FASTINGPERFORMED BY: [facility] [facility] [address] [place] [id number] Information: [id number] Diff (83080) Immature Grans (Abs) 0.0 {x10E3/uL} (Normal) Range: [...] 3.77-5.28 WBC 7.5 {x10E3/uL} (Normal) Range: 4.0-10.5 99-Aok-054502:14 Metabolic Panel, Comprehensive Comments: PATIENT NOT FASTINGPERFORMED BY: LabCoAnn Klein Forensic CenterIwpivx[address] [facility] [id number] (06631) ALT (SGPT) 19 [iU]/L (Normal) Range: 0-32 [...] Glucose, Serum 105 mg/dL (Abnormal) Range: 65-99 27-Aok-556639:06 URINE VERÓNICA CULTURE-SHARIFA COL Comments: PATIENT NOT FASTINGPERFORMED BY: LabCoAnn Klein Forensic CenterGnfdhl[address] [facility] [id number] Information: SRC:UR ADD [id number] COUNT (40857) Antimicrobial MIHEAD (Normal) Comments: S = Susceptible; [...] mL (Normal) Urine Final report Culture,Comprehensive (Normal) 91-Snf-515150:09 Urinalysis, Office (92463) UA - BILIRUBIN Negative (Normal) UA - BLOOD Hemolyzed Moderate (Normal) UA - GLUCOSE Negative (Normal) UA - KETONES Negative mg/dL (Normal) UA - LEUKOCYTE ESTERASE Small (Normal) UA - NITRITE Negative (Normal) UA - PH 6.0 (Normal) UA - PROTEIN Negative mg/dL (Normal) UA - SPECIFIC GRAVITY 1.005 (Normal) URINE UROBILINGN SHARIFA TIMED 2 mg/dL (Normal) 6-Whz-660380:04 Renal function Panel Comments: PATIENT NOT FASTINGPERFORMED BY: [facility] [facility] [address] [place] [id number] Information: [id number] (80862) Albumin, Serum 4.1 g/dL (Normal) Range: 3.6-4.8 [...] Glucose, Serum 110 mg/dL (Abnormal) Range: 65-99 57-Rqm-167011:22 CALCIFEDIOL (78303) Comments: PATIENT NOT FASTINGPERFORMED BY: [facility] [facility] [address] [place] [id number] Vitamin D, 25-Hydroxy 16.7 ng/mL (Abnormal) Range: 30.0-100.0 Comments: Vitamin D deficiency has been defined by the Accident ofMedicine and an Endocrine Society practice guideline as alevel of serum 25-OH vitamin D less than 20 ng/mL (1,2).The Endocrine Society went on to further define vitamin Dinsufficiency as a level between 21 and 29 ng/mL (2).1. IOM (Accident of Medicine). 2010. Dietary reference intakes for calcium and D. [place]: The National Academies Press.2. Azael MF, Leslee LEMON, Hillary PHILLIPS, et al. Evaluation, treatment, and prevention of vitamin D deficiency: an Endocrine Society clinical practice guideline. JCEM. 2010; 96(7):1911-30. :22 MAGNESIUM (71454) Comments: PATIENT NOT FASTINGPERFORMED BY: [facility] Bwaqtc2142 [address]k RoadDublin [place] [id number] Magnesium, Serum 2.3 mg/dL (Normal) Range: 1.6-2.6 :22 T4, FREE (THYROXINE) (84986) Comments: PATIENT NOT FASTINGPERFORMED BY: CB [facility] Gxqwai9838 Monk RoadDublin [place] [id number] T4,Free(Direct) 1.50 ng/dL (Normal) Range: 0.82-1.77 :22 T3, FREE (TRIDOTHYRONINE) (33068) Comments: PATIENT NOT FASTINGPERFORMED BY: [facility] Ctwtiz4921 [address]k RoadDublin [place] [id number] Triiodothyronine,Free,Serum 2.6 pg/mL (Normal) Range: 2.0-4.4 :22 TSH (03545) Comments: PATIENT NOT FASTINGPERFORMED BY: CB [facility] Zgnqbz1366 [address]k RoadDublin [place] [id number] TSH 1.920 {uIU/mL} (Normal) Range: 0.450-4.500 :22 CBC, Platelets & Auto Comments: PATIENT NOT FASTINGPERFORMED BY: CB [facility] Skgozu9074 Monk RoadDublin [place] [id number] Information: [id number] Diff (95469) Immature Grans (Abs) 0.0 {x10E3/uL} (Normal) Range: [...] 3.77-5.28 WBC 8.5 {x10E3/uL} (Normal) Range: 4.0-10.5 79-Grn-678315:22 Metabolic Panel, Comprehensive Comments: PATIENT NOT FASTINGPERFORMED BY: LabCoAnn Klein Forensic CenterDvecrr[address] [facility] [id number] (08394) ALT (SGPT) 21 [iU]/L (Normal) Range: 0-32 [...] Glucose, Serum 97 mg/dL (Normal) Range: 65-99 4-Bbs-392568:20 METABOLIC PANEL, COMPREHENSIVE Comments: PATIENT WAS FASTINGPERFORMED BY: LabCoAnn [facility] Forensic CenterTelysg[address] [facility] [id number] (15327) ALT (SGPT) 19 [iU]/L (Normal) Range: 0-32 [...] Glucose, Serum 102 mg/dL (Abnormal) Range: 65-99 9-Xzp-154402:20 CBC WITH MANUAL DIFF Comments: PATIENT WAS FASTINGPERFORMED BY: LabCoAnn [facility] Forensic CenterByihta[address] [facility] [place] [id number] Information: [id number] (80766) Immature Grans (Abs) 0.0 {x10E3/uL} (Normal) Range: [...] 3.77-5.28 WBC 7.4 {x10E3/uL} (Normal) Range: 3.4-10.8 8-Dpi-370462:20 LIPID PANEL (99879) Comments: PATIENT WAS FASTINGPERFORMED BY: LabCoAnn [facility] Forensic CenterIbbyei[address] [facility] [id number] LDL/HDL Ratio 2.0 {ratio_units} (Normal) Range: 0.0-3.2 LDL Cholesterol Calc 109 mg/dL (Abnormal) Range: 0-99 VLDL Cholesterol Hillary 35 mg/dL (Normal) Range: 5-40 HDL Cholesterol 54 mg/dL (Normal) Comments: According to ATP-III Guidelines, HDL-C >59 mg/dL is considered anegative risk factor for CHD. Triglycerides 175 mg/dL (Abnormal) Range: 0-149 Cholesterol, Total 198 mg/dL (Normal) Range: 100-199 0-Xts-108018:20 TSH (54789) Comments: PATIENT WAS FASTINGPERFORMED BY: LabCoAnn [facility] Forensic CenterIenlfw[address] [facility] [id number] TSH 2.720 {uIU/mL} (Normal) Range: 0.450-4.500 68-Xqc-806396:22 HgA1C , Office (59002) HgA1C , Office 6.0 % (Normal) Range: 4.6 - 7.1 45-Jdg-334042:22 Blood Glucose , Office (07837) Blood Glucose , Office 249 (Normal) Comments: has eaten in last 2h 44-Iqk-360460:20 CHEST, PA AND LATERAL Radiology Report See [...] Signed:Anibal Lan M.D.November 022012 at 8:14:34 AM [id number] Signed GP/GP If you are the referring physician and would like to consult with theradiologist who provided this interpretation, please contact Eliecer Bui M.D. at [phone]. If this radiologist is unavailable, youwill be directed to another radiologist to assist. If you are a patient with a question regarding this report, pleasecontactyour referring physician directly. Professional Interpretation Provided By: [employer], Phone , These documents contain legally protected [...] 11/21/12 1717 by Isiah Donahue MDranscribed on 11/22/12817 by ITS IMPORTSign by Anibal Lan MD on 11/22/12817 Sign by: Anibal Lan MD 83-Yfh-74182:19 VERÓNICA CULTURE-OTHER (46875) Comments: PATIENT NOT FASTINGPERFORMED BY: [employer] Hvbbih[address] Synterna TechnologiesSelect Specialty Hospital [facility] [id number] Information: SRC:THRT [id number] Result 1 RRF (Normal) Comments: Routine respiratory duyen Upper Respiratory Culture Final report (Normal) 88-Cgo-092288:33 Rapid Strep Test, Office (78527) Rapid Strep Test, Office Negative (Normal) 1-Jzy-441767:50 Celiac Disease Comprehensive Comments: PERFORMED BY: [facility] BioEnergySelect Specialty Hospital [facility] [id number] Immunoglobulin A, Qn, 364 mg/dL (Normal) Range: [...] Potassium, Serum 4.0 mmol/L Comments: PERFORMED BY: LabCoAnn [facility] Forensic CenterOylhvl[address] [facility] [id number] 4:50 (Normal) Range: 3.5-5.2 0-Esd-107290:30 CBCMD ANC 3.7 3/uL (Normal) Range: 2.0-7.7 [...] 4.2-5.4 WBC 7.0 {k/mm3} (Normal) Range: 4.4-11.0 5-Ejg-778957:30 CMP GAP 11 (Normal) Range: 5-15 CO2 [...] 7-18 GLU 93 mg/dL (Normal) Range: 70-110 0-Zvg-257274:30 LIPID LDL 108 mg/dL (Normal) Range: 0-130 [...] Very High > or = 500 mg/dL 5-Dle-392969:30 MIACRE MIALB 5.8 mg/L (Normal) tMICROCREAT 9.5 {mg/g_CRE} (Normal) CREU 60.7 mg/dL (Normal) 9-Ukr-232522:30 TSH 0.75 {uIU/mL} (Normal) Range: 0.358-3.74 :54 HgA1C , Office (25359) HgA1C , Office 5.5 % (Normal) Range: 4.6 - 7.1 :54 Blood Glucose , Office (75675) Blood Glucose , Office 116 (Normal) 71-Rwu-189122:26 URINE VERÓNICA CULTURE-SHARIFA COL Comments: PATIENT NOT FASTINGPERFORMED BY: [facility] Nvsewu[address] [facility] [id number] Information: SRC:UR [id number] COUNT (56507) Result 1 MUG (Normal) Comments: Mixed urogenital flora50,000-100,000 colony forming units per mL Urine Final report (Normal) Culture,Comprehensive 54-Uyy-376589:46 Urinalysis, Office (99615) UA - BILIRUBIN Small (Normal) UA - BLOOD Hemolyzed Small (Normal) UA - GLUCOSE Negative (Normal) UA - KETONES Small mg/dL (Normal) UA - LEUKOCYTE ESTERASE Moderate (Normal) UA - NITRITE Negative (Normal) UA - PH 6.0 (Normal) UA - PROTEIN Trace mg/dL (Normal) UA - SPECIFIC GRAVITY 1.025 (Normal) URINE UROBILINGN SHARIFA TIMED Normal mg/dL (Normal) 01-Ahi-081383:55 CHEST, PA AND LATERAL Radiology Report See [...] radiologist regarding this report, please call our [id number] line @ Dictated on 1518 by Isiah Lan MDranscribed on 11/23/111610 by ITS IMPORTSign by Anibal Lan MD on 11/23/111610 Sign by: Anibal Lan MD :51 Urinalysis, Office (03250) UA - BILIRUBIN Negative (Normal) UA - BLOOD Hemolyzed Small (Normal) UA - GLUCOSE Negative (Normal) UA - KETONES Negative mg/dL (Normal) UA - LEUKOCYTE ESTERASE Large (Normal) UA - NITRITE Negative (Normal) UA - PH 7.0 (Normal) UA - PROTEIN Negative mg/dL (Normal) UA - SPECIFIC GRAVITY 1.020 (Normal) URINE UROBILINGN SHARIFA TIMED 2 mg/dL (Normal) :51 HgA1C , Office (38724) HgA1C , Office 6.2 % (Normal) Range: 4.6 - 7.1 :50 Blood Glucose , Office (18140) Blood Glucose , Office 119 (Normal) :55 Urinalysis, Office (33645) UA - BILIRUBIN Negative (Normal) UA - [...] Ultrasound evaluation of the right upper quadrant [facility] with real-time ultrasonography and static grayscale imaging. [...] Muscle) 13 {Units} (Normal) Comments: PERFORMED BY: [facility] [facility] [place] [id number] :58 Antibody Range: 0-19 Comments: Negative 0 - 19 Weak positive 20 - 30 Moderate to strong positive >30 . Actin Antibodies are found in 52-85% of patients with autoimmune hepatitis or chronic active hepatitis and in 22% of patients with primary biliary cirrhosis. :58 Antinuclear Antibodies Direct Comments: PERFORMED BY: [facility] [id number] GAYATRI Direct Negative (Normal) :5 Ceruloplasmin 31.6 mg/dL (Normal) Comments: PERFORMED BY: [employer] [facility] [facility] [id number] Range: 16.0-45.0 :5 Ferritin, Serum 440 ng/mL (Abnormal) Comments: PERFORMED BY: [facility] [id number] Range: 13-150 :58 Hepatitis Panel (4) Comments: PERFORMED BY: [facility] [id number] Hep C Virus Ab 0.1 {s/co_ratio} (Normal) [...] :58 Iron and TIBC Comments: PERFORMED BY: [employer] [facility] [id number] Iron Saturation 37 % (Normal) Range: 15-55 Iron, Serum 96 ug/dL (Normal) Range: 35-155 UIBC 163 ug/dL (Normal) Range: 150-375 Iron Bind.Cap.(TIBC) 259 ug/dL (Normal) Range: 250-450 :58 Platelet Count on Citrated Comments: PERFORMED BY: Twitch [facility] [id number] Bld Plt Count, Citrated Bld 216 {X10E3/uL} Range: 140-415 (Normal) 11-Jun-2011 Written Authorization WAR (Normal) Comments: PERFORMED BY: [employer] Ywllgh[address] [facility] [id number] 9:58 Comments: Written Authorization Received.Authorization received from [facility] [id number] by Elina Swain :30 HgA1C , Office (50008) HgA1C , Office 6.7 % (Normal) Range: 4.6 - 7.1 :30 Blood Glucose , Office (69047) Blood Glucose , Office 159 (Normal) :15 METABOLIC PANEL, COMPREHENSIVE Comments: PATIENT WAS FASTINGPERFORMED BY: [employer] Ivcbhj[address] [facility] [id number] (91873) ALT (SGPT) 51 [iU]/L (Abnormal) Range: 0-40 [...] mg/dL (Abnormal) Range: 65-99 :15 LIPID PANEL (78150) Comments: PATIENT WAS FASTINGPERFORMED BY: [employer] [facility] [id number] LDL/HDL Ratio 1.8 {ratio_units} (Normal) Range: 0.0-3.2 [...] MANUAL DIFF Comments: PATIENT WAS FASTINGPERFORMED BY: [employer] [facility] [id number] Information: [id number] (85639) Immature Grans (Abs) 0.0 {x10E3/uL} (Normal) Range: [...] 3.80-5.10 WBC 8.3 {x10E3/uL} (Normal) Range: 4.0-10.5 85-Dmj-260261:26 Hepatic Function Panel (7) Comments: PERFORMED BY: [employer] [facility] [id number] ALT (SGPT) 63 [iU]/L (Abnormal) Range: 0-40 Alkaline Phosphatase, S 63 [iU]/L (Normal) Range: 25-165 AST (SGOT) 53 [iU]/L (Abnormal) Range: 0-40 Bilirubin, Direct 0.13 mg/dL (Normal) Range: 0.00-0.40 Bilirubin, Total 0.4 mg/dL (Normal) Range: 0.0-1.2 Albumin, Serum 4.5 g/dL (Normal) Range: 3.6-4.8 Protein, Total, Serum 7.8 g/dL (Normal) Range: 6.0-8.5 97-Ads-545983:26 Hepatitis Panel (4) Comments: PERFORMED BY: [employer] Lnitaf0272 [facility] [id number] Hep C Virus Ab <0.1 {s/co_ratio} (Normal) [...] (Normal) Hep A Ab, IgM Negative (Normal) 5-Smj-329072:04 LIVER D BILI 0.11 mg/dL (Normal) Range: 0.00-0.30 T BILI 0.30 mg/dL (Normal) Range: 0.00-1.00 ALK P 57 U/L (Normal) Range: 50-136 ALT 68 U/L (Normal) Range: 12-78 ALB 4.0 g/dL (Normal) Range: 3.4-5.0 AST 53 U/L (Abnormal) Range: 15-37 T PROT 8.0 g/dL (Normal) Range: 6.4-8.2 :59 HgA1C , Office (78124) HgA1C , Office 6.6 % (Normal) Range: 4.6 - 7.1 :59 Blood Glucose , Office (12739) Blood Glucose , Office 124 (Normal) :17 HgA1C , Office (00144) HgA1C , Office 6.4 % (Normal) Range: 4.6 - 7.1 :17 Blood Glucose , Office (79366) Blood Glucose , Office 141 (Normal) 28-Abj-746857:17 Hemoglobin Glyclated (HGB A1C) Comments: PATIENT WAS FASTINGPERFORMED BY: [employer] [facility] TelematicsFort Defiance Indian HospitalKiixgb8[address] [facility] [id number] (69666) Hemoglobin A1c 6.0 % (Abnormal) Range: 4.8-5.6 Comments: Increased risk for diabetes: 5.7 - 6.4 Diabetes: >6.4 Glycemic control for adults with diabetes: <7.0 32-Byc-374740:17 MICROALBUMIN: CREATININE RATIO Comments: PATIENT WAS FASTINGPERFORMED BY: [employer] Dttudc[address] [facility] [id number] (61995) AND (52783) Microalb/Creat Ratio 2.9 {mg/g_creat} (Normal) Range: 0.0-30.0 Creatinine, Urine 49.0 mg/dL (Normal) Range: 15.0-278.0 Microalbumin, Urine 1.4 ug/mL (Normal) Range: 0.0-17.0 05-Mvg-741775:17 METABOLIC PANEL, COMPREHENSIVE Comments: PATIENT WAS FASTINGPERFORMED BY: [facility] [facility] [id number] (25507) Alkaline Phosphatase, S 61 [iU]/L (Normal) Range: [...] <18 years 9 - 27 9 - 18 - 39 years 8 - 8 - 20 40 - 59 years 9 - 9 - 60 years and older 10 - 11 - 26 Creatinine, Serum 1.32 mg/dL [...] Glucose, Serum 116 mg/dL (Abnormal) Range: 65-99 57-Dwy-903289:17 LIPID PANEL (58560) Comments: PATIENT WAS FASTINGPERFORMED BY: [employer] LabCoZapMe70 [facility] [id number] LDL/HDL Ratio 2.2 {ratio_units} (Normal) Range: 0.0-3.2 HDL Cholesterol 50 mg/dL (Normal) Comments: According to ATP-III Guidelines, HDL-C >59 mg/dL is considered anegative risk factor for CHD. LDL Cholesterol Calc 109 mg/dL (Abnormal) Range: 0-99 VLDL Cholesterol Hillary 56 mg/dL (Abnormal) Range: 5-40 Cholesterol, Total 215 mg/dL (Abnormal) Range: 100-199 Triglycerides 282 mg/dL (Abnormal) Range: 0-149 98-Gnv-201918:17 CBC WITH MANUAL DIFF (84008) Comments: PATIENT WAS FASTINGPERFORMED BY: [employer] [facility] Vipqft[address] [facility] [id number] Immature Grans (Abs) 0.0 {x10E3/uL} (Normal) Range: [...] (Normal) Range: 4.0-10.5 :57 Folic Acid Serum (51068) Comments: PATIENT NOT FASTINGPERFORMED BY: [employer] [facility] TelematicsAnn Klein Forensic CenterHnujte4994 [facility] [id number] Folate (Folic Acid), Serum 12.6 ng/mL (Normal) Comments: Indeterminate: 2.2 - 3.0Deficient: <2.2 :57 Vitamin B-12 (cyanocobalamin) Comments: PATIENT NOT FASTINGPERFORMED BY: [employer] [facility] TelematicsAnn Klein Forensic CenterJoooed[address] [facility] [id number] (20958) Vitamin B12 551 pg/mL (Normal) Range: 211-946 :57 CBC with manual diff Comments: PATIENT NOT FASTINGPERFORMED BY: [employer] TelematicsAnn Klein Forensic CenterItvlth8[address] [facility] [id number] Information: [id number] (58035) Baso (Absolute) 0.1 {x10E3/uL} (Normal) Range: 0.0-0.2 [...] 3.80-5.10 WBC 9.4 {x10E3/uL} (Normal) Range: 4.0-10.5 48-Rwu-948199:57 Metabolic Panel, Comprehensive Comments: PATIENT NOT FASTINGPERFORMED BY: LabCoAnn Klein Forensic CenterMccpnx24[address] [facility] [id number] (06804) ALT (SGPT) 18 [iU]/L (Normal) Range: 0-40 [...] Glucose, Serum 105 mg/dL (Abnormal) Range: 65-99 14-Txi-560827:57 DRUG ASSAY-LITHIUM (16040) Comments: PATIENT NOT FASTINGPERFORMED BY: [employer] TelematicsAnn Klein Forensic CenterVzygqf1425 [facility] [id number] [place] (Eskalith), Serum 1.0 mmol/L (Normal) Range: 0.6-1.4 Comments: Detection Limit = 0.1<0.1 indicates None Detected :57 T4, FREE (THYROXINE) (49032) Comments: PATIENT NOT FASTINGPERFORMED BY: RedboothPemiscot Memorial Health SystemsVrqhxr220[address] [facility] [id number] T4,Free(Direct) 1.17 ng/dL (Normal) Range: 0.82-1.77 :57 T3, FREE (TRIDOTHYRONINE) (42366) Comments: PATIENT NOT FASTINGPERFORMED BY: [facility] [facility] [id number] Triiodothyronine,Free,Serum 2.1 pg/mL (Normal) Range: 2.0-4.4 :57 TSH (67673) Comments: PATIENT NOT FASTINGPERFORMED BY: [facility] [facility] [id number] TSH 4.080 {uIU/mL} (Normal) Range: 0.450-4.500 :43 HgA1C , Office (92486) HgA1C , Office 5.3 % (Normal) Range: 4.6 - 7.1 :43 Blood Glucose , Office (62339) Blood Glucose , Office 125 (Normal) :4 [...] 136-145 GLU 84 mg/dL (Normal) Range: 70-110 :42 LI 0.60 mmol/L (Normal) Comments: Therapeutic Range: 0.60 - 1.20 :58 Thin prep Pap Comments: Source.............Cervical;EndocervicalNo. of containers..01 CYTYC Thin Prep VialPATIENT NOT FASTINGPERFORMED BY: [facility] [address] [id number] Information: [id number] (04050) Note: PAPSMR (Normal) Comments: The Pap smear [...] atrophy.V 72.31 ; Routine gynecological examinationRaxander Gonzalez Cash Register Operator (ASCP) : TSH (34995) Comments: PATIENT NOT FASTINGPERFORMED BY: [facility]MyGuestSelect [facility] [id number] TSH 3.440 {uIU/mL} (Normal) Range: 0.450-4.500 : CBC (Auto) (01043) Comments: PATIENT NOT FASTINGPERFORMED BY: [employer] Da[facility]e [facility] [id number] Information: [id number] Platelets 258 {x10E3/uL} (Normal) Range: 140-415 RDW 13.6 % (Normal) Range: 11.7-15.0 Hematocrit 43.5 % (Normal) Range: 34.0-44.0 MCH 31.6 pg (Normal) Range: 27.0-34.0 MCHC 33.6 g/dL (Normal) Range: 32.0-36.0 MCV 94 fL (Normal) Range: 80-98 Hemoglobin 14.6 g/dL (Normal) Range: 11.5-15.0 RBC 4.61 {x10E6/uL} (Normal) Range: 3.80-5.10 WBC 8.6 {x10E3/uL} (Normal) Range: 4.0-10.5 77-Nvc-227523:00 Metabolic Panel, Basic Comments: PATIENT NOT FASTINGPERFORMED BY: [employer]70 [facility]lio[facility] [id number] (08654) Calcium, Serum 9.1 mg/dL (Normal) Range: 8.6-10.2 [...] Glucose, Serum 111 mg/dL (Abnormal) Range: 65-99 16-Iwi-125855:00 DRUG ASSAY-LITHIUM (00754) Comments: all these labs standing order prn; PATIENT NOT FASTINGPERFORMED BY: [employer] [facility] Cxkdrx[address] [facility] [id number] [place] (Eskalith), Serum 0.9 mmol/L (Normal) Range: 0.6-1.4 Comments: Detection Limit = 0.1<0.1 indicates None Detected 71-Gso-96602:16 METABOLIC PANEL, COMPREHENSIVE Comments: PATIENT NOT FASTINGPERFORMED BY: [facility] Uwgtjr[address] [facility] [id number] (79417) A/G Ratio 1.3 (Normal) Range: 1.1-2.5 Alkaline [...] Glucose, Serum 207 mg/dL (Abnormal) Range: 65-99 40-Vae-96937:16 CBC WITH MANUAL DIFF Comments: PATIENT NOT FASTINGPERFORMED BY: [facility] Mpywfo[address] [facility] [id number] Information: [id number] (80019) Baso (Absolute) 0.1 {x10E3/uL} (Normal) Range: 0.0-0.2 [...] CREATININE RATIO Comments: PATIENT NOT FASTINGPERFORMED BY: LabAud[facility] Vkeusq20[address] [facility] [id number] (35646) AND (23173) Microalb/Creat Ratio 6.2 {mg/g_creat} (Normal) Range: 0.0-30.0 Microalbumin, Urine 2.5 ug/mL (Normal) Range: 0.0-17.0 Creatinine, Urine 40.1 mg/dL (Normal) Range: 15.0-278.0 :38 HgA1C , Office (53281) HgA1C , Office 6.6 % (Normal) Range: 4.6 - 7.1 :38 Blood Glucose , Office (24465) Blood Glucose , Office 214 (Normal) 53-Ocp-941057:05 URINE VERÓNICA CULTURE-IDENTIFICATN Comments: PATIENT NOT FASTINGPERFORMED BY: EMIL [facility] Yeioaz7509 [facility] StoutCritical Access Hospitalreinaldo [place] [id number] Information: [id number] (58341) Antimicrobial MIHEAD (Normal) Comments: S = Susceptible; [...] mL (Normal) Urine Final report (Normal) Culture,Comprehensive 10-Ywq-673340:23 CHEST, PA AND LATERAL (MT) Radiology Report See Note (Normal) Comments: Exam Number: [id number] CLINICAL:58-year-old female with cough, pain and shortness [...] otherwise unremarkable. Reported By: SISI MART Dr. 45-Myo-85026:23 B.pertussisB.parapertussis PCR Comments: PERFORMED BY: ELIESER BhspYlk0398 Jacinto [facility] HospitalneilPascack [facility] [id number] Bordetella parapertussis DNA Negative (Normal) Comments: .This test was developed and its performance characteristics determinedby [employer]. It has not been cleared or approved by theU.S. Food and Drug Administration. The FDA has determined that s uchclearance or approval is not necessary. This test is used for clinicalpurposes. It should not be regarded as investigational or research. Bordetella pertussis DNA Negative (Normal) :50 HgA1C , Office (50090) HgA1C , Office 5.5 % (Normal) Range: 4.6 - 7.1 :50 Blood Glucose , Office (00774) Blood Glucose , Office 90 (Normal) :33 HgA1C , Office (56522) HgA1C , Office 5.6 % (Normal) Range: 4.6 - 7.1 :41 HgA1C , Office (67167) HgA1C , Office 5.5 % (Normal) Range: 4.6 - 7.1 Comments: :41 Blood Glucose , Office (72151) Comments: 89 Blood Glucose , Office 89 [...] (Normal) Range: 0.34-4.82 :42 HgA1C , Office (77750) HgA1C , Office 5.4 % (Normal) Range: 4.6 - 7.1 :42 Blood Glucose , Office (50975) Blood Glucose , Office 103 (Normal) :20 [...] T PROT 8.0 g/dL (Normal) Range: 6.4-8.2 52-Gce-477962:20 LIPID CHOL 148 mg/dL (Normal) Comments: <200 [...] mg/dL VLDL 30 mg/dL (Normal) Range: 5-40 27-Fst-169907:20 ROUTINE UA BILIRUBIN URINE SeeNote (Normal) Comments: [...] 0.2 EU/dl (Normal) Range: 0.2 - 1.0 09-Zsq-59565:06 THYROID (HP) Radiology Report See Note (Normal) Comments: Exam Number: [id number] THYROID ULTRASOUND HISTORYGoiter. There is borderline increase [...] 03, 2007. Reported By: PETRONA REGALADO M.D. 97-Mev-70646:20 MAMMCATALINA DIGITAL & CAD Radiology Report See Note (Normal) Comments: Exam Number: [id number] UNILATERAL LEFT DIAGNOSTIC MAMMOGRAPHY CLINICAL STATEMENTLeft breast [...] The mammogramswere also examined with computer-aided detection software([employer]cept[employer].). Reported By: REID KRUEGER M.D. 4-Rhb-295510: TSH 0.94 {uIU/mL} Range: 0.34-4.82 50 (Normal) 1-Djh-195866:06 MAMMLINDSEY DIGITAL & CAD Radiology Report See Note (Normal) Comments: Exam Number: [id number] MAMMOGRAM, BILATERAL SCREENING DIGITAL AND CAD HISTORYRoutine [...] was rendered by a radiologist certified under [facility] Quality Standards Act of 1992 (MQSA). The mammograms werealso examined with computer-aided detection software (Combat Stroke.). Reported By: PETRONA REGALADO M.D. 6-Suf-650614:05 THYROID (HP) Radiology Report See Note (Normal) Comments: Exam Number: [id number] THYROID ULTRASOUND HISTORYGoiter. High resolution real time [...] 6 months. Reported By: PETRONA REGALADO M.D. 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 Letter Indication: Stress incontinence, female Diabetes mellitus [...] acute Planned Observations VITAMIN B12 AND FOLATES (67531)Indication: Neuropathic pain On: 89-Tem-13522:08 Request Blood Glucose , Office (85329)Indication: Diabetes mellitus type II, controlled On: 22-Rwo-23076:04 Request LIPID PANEL (30373)Indication: Neuropathic pain On: 87-Byc-28613:54 Request Blood Glucose , Office (99936)Indication: Diabetes mellitus type II, controlled On: 02-Nov-20178:55 Request D-Dimer (92319)Indication: Shortness of breath On: 92-Lsj-391942:19 Request Metabolic Panel, Comprehensive (70026)Indication: Diabetes mellitus type II, controlled On: 50-Slh-129903:19 Request Comments: Nov 2017 LIPID PANEL (49793)Indication: Diabetes mellitus type II, controlled On: 50-Ffd-161267:19 Request Comments: Nov 2017 URINALYSIS (43629)Indication: Diabetes mellitus type II, controlled On: 40-Lty-645498:19 Request Comments: Nov 2017 TSH (91722)Indication: Diabetes mellitus type II, controlled On: 55-Xlv-798618:18 Request Comments: Nov 2017 CBC, Platelets & Auto Diff (31911)Indication: Diabetes mellitus type II, controlled On: 04-Zdx-437926:18 Request Comments: Nov 2017 MICROALBUMIN: CREATININE RATIO (51324) AND (35631)Indication: Diabetes mellitus type II, controlled On: 15-Fre-412449:18 Request Comments: Nov 2017 HgA1C , Office (17983)Indication: Diabetes mellitus type II, controlled On: 36-Goq-282884:44 Request Anaerobic & Aerobic Culture (82692)Indication: Mouth pain On: 1-Lev-870080:11 Request Metabolic Panel, Comprehensive (70297)Indication: Chronic kidney disease (CKD), stage I On: 47-Cfy-886145:50 Request Comments: 2 weeks Metabolic Panel, Comprehensive (06491)Indication: Diabetes mellitus type II, controlled On: 93-Stz-364734:56 Request Comments: today URINALYSIS (91763)Indication: Chronic kidney disease (CKD), stage I On: 98-Xxn-579199:52 Request Comments: Jul 2017 MICROALBUMIN: CREATININE RATIO (58882) AND (63876)Indication: Chronic kidney disease (CKD), stage I On: 36-Fte-935265:52 Request Comments: jul 2017 Lipid Panel (50991)Indication: Hypertension (Renamed from BP (high blood pressure)) On: 53-Pya-643111:52 Request Comments: Jul 2017 TSH (64106)Indication: Leg weakness On: 72-Ngp-039850:52 Request Comments: Jul 2017 CBC, Platelets & Auto Diff (66072)Indication: Leg weakness On: 26-Aps-335281:52 Request Comments: jul 2017 METABOLIC PANEL, COMPREHENSIVE (07774)Indication: Weakness On: 00-Zyn-953052:55 Request METABOLIC PANEL, COMPREHENSIVE (65584)Indication: Hypokalemia On: :43 Request Comments: STAT SED RATE ERYTHROCYTE (96135)Indication: Weakness On: 27-Jiz-362281:29 Request TSH (THYROID STIMULATING HORMONE) (33831)Indication: Unspecified abnormal involuntary movements On: 65-Nve-787999:17 Request METABOLIC PANEL, COMPREHENSIVE (87525)Indication: Unspecified abnormal involuntary movements On: :17 Request CBC, PLATELETS & AUT DIFF (38778)Indication: Unspecified abnormal involuntary movements On: 90-Anl-469298:17 Request URINE VERÓNICA CULTURE-IDENTIFICATN (99300)Indication: Weakness On: 56-Iuz-187807:07 Request Blood Glucose , Office (83707)Indication: Unspecified abnormal involuntary movements On: 70-Mng-03894:59 Request VITAMIN B12 AND FOLATES (53225)Indication: Unspecified abnormal involuntary movements On: :57 Request SPEP (00089)Indication: Elevated serum creatinine On: 55-Azd-683764:31 Request CALCIFIDIOL (75353) VIT D 25Indication: Vitamin D deficiency (Renamed from Avitaminosis D) On: : Request TSH (61479)Indication: Hypothyroidism On: :27 Request MICROALBUMIN: CREATININE RATIO (00701) AND (76683)Indication: Diabetes mellitus type II, controlled On: :27 Request METABOLIC PANEL, COMPREHENSIVE (06737)Indication: Diabetes mellitus type II, controlled On: :27 Request LIPID PANEL (87453)Indication: Diabetes mellitus type II, controlled On: :27 Request CBC with auto diff (70205)Indication: Diabetes mellitus type II, controlled On: :27 Request CALCIFIDIOL (40549) VIT D 25Indication: Vitamin D deficiency (Renamed from Avitaminosis D) On: 62-Npt-455024:15 Request Comments: in three months (approximately) METABOLIC PANEL, COMPREHENSIVE (03515)Indication: Diabetes mellitus type II, controlled On: 79-Mta-189637:15 Request Comments: in three months (approximately) SODIUM URINE (93011)Indication: Hyponatremia On: 6-Fse-700070:51 Request OSMOLALITY URINE (50330)Indication: Hyponatremia On: 4-Hzz-685756:50 Request OSMOLALITY BLOOD (05169)Indication: Hyponatremia On: 8-Tjq-838142:50 Request ASSAY, TROPONIN, QUANTITATIVE (aka Troponin I) (88235)Indication: Chest pain On: 98-Ymj-479643:40 Request Comments: stat D-Dimer (90656)Indication: Chest pain On: 76-Cax-434587:40 Request Comments: stat TSH (35931)Indication: Chest pain On: 49-Zcb-246258:40 Request CBC WITH MANUAL DIFF (27288)Indication: Chest pain On: 86-Fac-575016:40 Request METABOLIC PANEL, COMPREHENSIVE (36612)Indication: Chest pain On: 57-Svu-012296:40 Request URINE VERÓNICA CULTURE (SHARIFA COL COUNT) (12501)Indication: Dysuria (Renamed from Difficult or painful urination) On: 13-Ktv-487435:24 Request Metabolic Panel, Comprehensive (34723)Indication: Hypertension (Renamed from BP (high blood pressure)) On: 72-Vmx-838297:56 Request Metabolic Panel, Basic (42242)Indication: Elevated LFTs On: 55-Zml-936248:16 Request 24 hour urine for Protein (95477)Indication: Elevated serum creatinine On: 50-Sdu-134861:40 Request Comments: recheck in one week CREATININE CLEARANCE (86932)Indication: Elevated serum creatinine On: 20-Chq-182163:39 Request Comments: recheck in one week Blood Glucose , Office (50673)Indication: Diabetes mellitus type II, controlled On: 97-Yyz-27996:29 Request METABOLIC PANEL, COMPREHENSIVE (35522)Indication: Hypokalemia (Renamed from Decreased potassium in the blood) On: 95-Nfg-824461:52 Request MICROALBUMIN: CREATININE RATIO (13712) AND (31292)Indication: Diabetes mellitus type II, controlled On: 59-Ysv-961918:14 Request FLURESCNT ANTIB SCRN EA (01231) celiac profileIndication: Irritable bowel syndrome (Renamed from Functional bowel disease) On: 9-Jij-859956:58 Request IMMUNOASSAY, ANALYTE (NON-INFECT) (69169) celiac profileIndication: Irritable bowel syndrome (Renamed from Functional bowel disease) On: 5-Gyg-954729:58 Request IGA/IGD/IGG/IGM-EACH (68034) celiac profileIndication: Irritable bowel syndrome (Renamed from Functional bowel disease) On: 6-Tpn-069479:58 Request Potassium Serum (05927)Indication: Hypokalemia (Renamed from Decreased potassium in the blood) On: 2-Mly-546873:58 Request Celiac Disease Comphrehensive Profile (95197)Indication: Irritable bowel syndrome (Renamed from Functional bowel disease) On: 04-Nov-20129:56 Request METABOLIC PANEL, COMPREHENSIVE (71718)Indication: Diabetes mellitus type II, controlled On: 84-Yyz-279814:32 Request LIPID PANEL (95486)Indication: Diabetes mellitus type II, controlled On: 63-Dcj-955660:32 Request CBC WITH MANUAL DIFF (03849)Indication: Diabetes mellitus type II, controlled On: 19-Mgj-329822:32 Request MICROALBUMIN: CREATININE RATIO (50214) AND (44013)Indication: Diabetes mellitus type II, controlled On: 32-Vsq-265727:32 Request TSH (96691)Indication: Hypothyroidism On: : Request TSH (51923)Indication: Hypothyroidism On: 71-Eiy-458596:26 Request MICROALBUMIN: CREATININE RATIO (32980) AND (28384)Indication: Diabetes mellitus type II, controlled On: 53-Xhv-208101: Request METABOLIC PANEL, COMPREHENSIVE (79676)Indication: Diabetes mellitus type II, controlled On: 64-Bfo-490153:26 Request LIPID PANEL (91295)Indication: Diabetes mellitus type II, controlled On: 81-Mcz-379557: Request CBC WITH MANUAL DIFF (11297)Indication: Diabetes mellitus type II, controlled On: 19-Duj-455163:26 Request URINE VERÓNICA CULTURE-SHARIFA COL COUNT (97769)Indication: Dysuria (Renamed from Difficult or painful urination) On: 29-Pbn-350807:15 Request URINE VERÓNICA CULTURE-SHARIFA COL COUNT (81202)Indication: Dysuria (Renamed from Difficult or painful urination) On: 18-Jfs-859117:55 Request Ferritin (01503)Indication: Elevated LFTs On: 24-Sso-903617:50 Request Comments: repeat now per Dr. Cabral with iron level Iron Binding Capacity (TIBC) (92494)Indication: Elevated LFTs On: 86-Amo-849962:50 Request Iron (70558)Indication: Elevated LFTs On: 14-Jgb-730440:49 Request CBC (Auto) (04071)Indication: Thrombocytopenia, unspecified On: 73-Fwv-533516:01 Request Comments: nonclumping tube HEPATITIS PANEL (97570)Indication: Elevated LFTs On: 49-Qjx-996999:01 Request FERRITIN (75915)Indication: Elevated LFTs On: 72-Kxq-708562:00 Request CERULOPLASMIN (56898)Indication: Elevated LFTs On: 20-Drm-956649:00 Request ASM (ANTI SMOOTH MUSCLE ANTIBODY) (90333)Indication: Elevated LFTs On: 76-Uov-365560:00 Request GAYATRI (ANTINUCLEAR ANTIBODY) (23237)Indication: Elevated LFTs On: 71-Ibc-550218:00 Request HEPATITIS PANEL (32088)Indication: Elevated LFTs On: :01 Request TSH (35666)Indication: Hypothyroidism On: 27-Pnt-801142:16 Request LIPID PANEL (14748)Indication: Diabetes mellitus type II, controlled On: 37-Qfz-319235:15 Request DRUG ASSAY-LITHIUM (69468)Indication: Bipolar affective disorder, mixed On: 92-Urd-200331:14 Request Metabolic Panel, Basic (45966)Indication: Bipolar affective disorder, mixed On: 72-Ijz-129907:13 Request Metabolic Panel, Basic (37497)Indication: Bipolar affective disorder, mixed On: 44-Ooi-871920:22 Request DRUG ASSAY-LITHIUM (30636)Indication: Bipolar affective disorder, mixed On: 71-Zdm-106604:22 Request Comments: 2 months Urinalysis, Office (45218)Indication: Urinary frequency On: 11-Nof-355689:27 Request Comments: done pms HEPATIC FUNCTION PANEL (99221)Indication: Other and unspecified hyperlipidemia On: 0-Xbv-319523:45 Request Lipid Panel (40428)Indication: Other and unspecified hyperlipidemia On: 2-Vqm-107034:45 Request Lipid Panel (95705)Indication: Other and unspecified hyperlipidemia On: 57-Wmd-917204:17 Request CBC, Platelets & Auto Diff (06032)Indication: Other and unspecified hyperlipidemia On: 82-Wiu-915322:17 Request Metabolic Panel, Comprehensive (77644)Indication: Other and unspecified hyperlipidemia On: 12-Pds-494564:17 Request TSH (98545)Indication: Hypothyroidism On: 63-Bdt-868674:15 Request Metabolic Panel, Basic (61602)Indication: Other and unspecified hyperlipidemia On: 26-Yhz-87204:55 Request Lipid Panel (06359)Indication: Other and unspecified hyperlipidemia On: :55 Request Comments: in three months (approximately) CBC (Auto) (23207)Indication: Intestinal disaccharidase deficiencies and disaccharide malabsorption On: :56 Request Metabolic Panel, Comprehensive (13580)Indication: Intestinal disaccharidase deficiencies and disaccharide malabsorption On: :56 Request Lipid Panel (31931)Indication: Intestinal disaccharidase deficiencies and disaccharide malabsorption On: :56 Request Comments: in three months (approximately) MICROALBUMIN 24 HOUR OR RANDOM On: 21-Plb-975827:04 Request (27609) CREATININE CLEARANCE (09285) On: 29-Tvc-472645:03 Request CBC (Auto) ([id number])Indication: Unspecified disorder of kidney and ureter On: :53 Request Lipid Panel ([id number])Indication: Unspecified disorder of kidney and ureter On: :53 Request Metabolic Panel, Comprehensive ([id number])Indication: Unspecified disorder of kidney and ureter On: :53 Request TSH ([id number])Indication: Hypothyroidism On: :53 Request TSH ([id number])Indication: Hypothyroidism On: 26-Luh-325193:18 Request URINALYSIS ([id number])Indication: Intestinal disaccharidase deficiencies and disaccharide malabsorption On: 48-Ngp-021589:43 Request CBC (Auto) ([id number])Indication: Intestinal disaccharidase deficiencies and disaccharide malabsorption On: 61-Yon-137994:43 Request Lipid Panel ([id number])Indication: Intestinal disaccharidase deficiencies and disaccharide malabsorption On: 32-Key-654314:43 Request Metabolic Panel, Comprehensive ([id number])Indication: Intestinal disaccharidase deficiencies and disaccharide malabsorption On: 43-Dca-727363:43 Request Planned Encounters Medical; 1 Week FU - On: 08-Aug-2018 14:45 [facility] Eli Bowman CNP, CNP, Mary E Planned Procedures COMPUTED TOMOGRAPHY ANGIOGRAPHY OF On: 01-Aug-2018 Intent CHEST FOR PULMONARY EMBOLISM Comments: stat for PE ([id number])By: Eli Bowman CNP, CNP, Mary E Echo CompleteBy: Eli Bowman CNP On: 29-Jul-2018 Intent Eli Bowman CNP Spirometry ([id number])By: Lisamitchsilvano WATTERS, On: 29-Jul-2018 Intent Eli Mcelroy CNP Holter Monitor 24 hrsBy: Lisamitchsilvano JANENE, On: 29-Jul-2018 Intent Eli Mcelroy CNP CHEST XRAY, PA & LATERAL ([id number])By: On: 29-Jul-2018 Intent Colby JANENEEli INDUSTRIAL AUTOMATION ENGINEEREli ELECTROCARDIOGRAM, COMPLETE (ECG) On: 29-Jul-2018 Intent ([id number])By: Colby WATTERS Eli Bowman Comments: sinus rhythm Eli WATTERS Aerosol Treatment ([id number])By: Colby On: 29-Jul-2018 Intent Eli WATTERS CNP, Mary E Flu Vaccine (Quadrivalent) 02487Ax: On: 22-Jul-2018 Intent Tejal Ceron Comments: Lot #[id number]-L dltd, IMDose prefilled syringegiven by: Rosalie Ceron MA Toradol Injection, 30 mg ([id number])By: On: 09-May-2018 Intent Nunu Root Comments: lot [id number] 12/2029mgIMleft gmas, 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 SCREENING DIGITAL TOMOSYNTHESIS OF On: 18-Apr-2018 Intent BREAST ([id number])By: Colby WATTERSEli Lisajanna JANENEEli DEXA SCAN AXIAL SKELETON ([id number])By: On: 18-Apr-2018 Intent Colby JANENEEli CNP, Mary E Toradol Injection, 30 mg ([id number])By: On: 22-Mar-2018 Intent Nunu Root Comments: toradol 30mg injection lot:[id number]:10/2019R GMpt tolerated wellMSMITH,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 COMPLETE ELECTROMYOGRAPHY (EMG) WITH On: 22-Mar-2018 Intent NERVE CONDUCTION STUDIES OF EACH Comments: Bilateral lower legs EXTREMITY ([id number])By: Nunu Root EMGBy: Colby WATTERS Eli Lubin Lisajanna JANENE, On: 03-Jan-2018 Intent Eli Lubin Comments: both legs Nerve ConductionBy: Eli Bowman CNP On: 03-Jan-2018 Intent E Colby WATTERS Eli Lubin Comments: both legs Toradol Injection, 30 mg ([id number])By: On: 23-Dec-2017 Intent Mayda Dobbins DO Comments: toradol 30mg injectionlot: [id number]: 06/2018L GMpt tolerated wellAD 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 Spirometry ([id number])By: Dk On: 16-Nov-2017 Intent Nunu Comments: Normal spirometry Aerosol Treatment ([id number])By: Shilpi On: 30-Aug-2017 Mayda Bailey DO Comments: less noise with forced exp Solu- Medrol Injection, 125mg On: 30-Aug-2017 Intent ([id number])By: Mayda Dobbins DO Comments: solumedrol 125mg injectionlot: [id number]: 12/2019R GMpt tolerated wellAD 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 Radiology - Chest- PA and LatBy: On: 30-Aug-2017 Mayda Collier DO Solu- Medrol Injection, 125mg On: 26-Aug-2017 Intent ([id number])By: Mayda Dobbins DO Comments: solumedrol 125mg injectionlot: [id number]: 12/2019L GMpt tolerated wellAD 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 Aerosol Treatment ([id number])By: Shilpi On: 26-Aug-2017 Mayda Bailey DO Comments: [place] Spirometry ([id number])By: Shilpi COLEMAN On: 26-Aug-2017 Intent Mayda Comments: mild obstruction Radiology - Shoulder - RightBy: On: 20-Jul-2017 Intent Edita Cabral MD Radiology - Lumbar SpineBy: Misha On: 20-Jul-2017 Intent Edita PROCTOR DRAIN/INJECT MAJOR JOINT OR BURSA On: 13-Apr-2017 Intent ([id number])By: Eli Bowman CNP Comments: injevted left knee today Eli WATTERS PHYSICAL THERAPY ([id number])By: Dk On: 08-Apr-2017 Intent Nunu Radiology - Knee - RightBy: Dk On: 08-Apr-2017 Intent Nunu Radiology - Knee - LeftBy: Dk, On: 08-Apr-2017 Intent Nunu ATTENDED SLEEP STUDY ([id number])By: On: 18-Jan-2017 Intent Eli Bowman CNP, CNP, Mary E DEXA SCAN AXIAL SKELETON ([id number])By: On: 24-Nov-2016 Intent Donnie Gonzales MD MAMMOGRAM, SCREENING, BOTH BREAST On: 24-Nov-2016 Intent ([id number])By: Donnie Gonzales MD US KIDNEY COMPLETE ([id number])By: Janet On: 16-Jul-2016 Intent Donnie PROCTOR EsophagramBy: Edita Cabral MD On: 06-Feb-2016 Intent Comments: 12mm tablet X-RAY EXAM OF ESOPHAGUS ([id number]) - On: 04-Feb-2016 Intent Barium Swallow with 12mm tabletBy: Donnie Gonzales MD Carotid DopplerBy: Edita Cabral MD On: 16-Sep-2015 Intent M TD VACCINE ADULT ([id number])By: Misha On: 16-Sep-2015 Intent Edita PROCTOR TDAP VACCINE >7 IM ([id number])By: On: 16-Sep-2015 Intent Edita Cabral MD Pap Smear, Medicare ([id number])By: On: 16-Sep-2015 Intent Edita Cabral MD MAMMOGRAM, SCREENING, BOTH BREAST On: 16-Sep-2015 Intent ([id number])By: Edita Cabral MD Renal Artery DopplerBy: Misha PROCTOR, On: 04-Feb-2015 Intent Edita Clinton Ultrasound - RenalBy: Misha PROCTOR, On: 04-Feb-2015 Intent Edita Clinton DEXA SCAN AXIAL SKELETON ([id number])By: On: 17-Jan-2015 Intent Edita Cabral MD Comments: postmenapausal MAMMOGRAM, SCREENING, BOTH BREAST On: 17-Jan-2015 Intent ([id number])By: Edita Cabral MD Radiology - Shoulder - [...] with back pain- stat call results Spirometry ([id number])By: Thee COLEMAN, On: 30-Apr-2014 Intent Erna Schaefer Comments: good effort and curve normal ELECTROCARDIOGRAM, COMPLETE (ECG) On: 30-Apr-2014 Intent ([id number])By: Erna Kingston DO Eprescribed prescriptions ([id number])By: On: 12-Feb-2014 Intent Edita Cabral MD SPECIMEN HANDLING/TRANSPORT On: 15-Jan-2014 Intent ([id number])By: Eli Bowman CNP, CNP Elif Eprescribed prescriptions ([id number])By: On: 11-Oct-2013 Intent Nunu Stephens LPN ADMINISTRATION OF INFLUENZA VIRUS On: 24-Jul-2013 Intent VACCINE ([id number])By: Edita Cabral MD FLU VAC, SPLIT, >3 YEARS, INTRAMUSC On: 24-Jul-2013 Intent ([id number])By: Edita Cabral MD Echo CompleteBy: Edita Cabral MD On: 27-Jun-2013 Intent Carotid DopplerBy: Edita Cabral MD On: 27-Jun-2013 Intent M Eprescribed prescriptions ([id number])By: On: 27-Jun-2013 Intent Teressa Molina LPN MRI - BrainBy: Eli Bowman CNP On: 16-Jun-2013 Intent Eli Bowman CNP SPECIMEN HANDLING/TRANSPORT On: 16-May-2013 Intent ([id number])By: Sue Ewing LPN Holter Monitor 24 hrsBy: Colby WATTERS, On: 28-Apr-2013 Intent Eli Mcelroy CNP ELECTROCARDIOGRAM, COMPLETE (ECG) On: 28-Apr-2013 Intent ([id number])By: Eli Bowman CNP Comments: sinus bradycardia Eli WATTERS Bio Z ([id number])By: Eli Bowman CNP On: 28-Apr-2013 Intent Eli Bowman CNP EKG ([id number])By: Edita Cabral MD On: 28-Mar-2013 Intent Comments: see scanned document of test done to see results reviewed today with patient Eprescribed prescriptions ([id number])By: On: 28-Mar-2013 Intent Teressa Molina LPN Eprescribed prescriptions ([id number])By: On: 08-Dec-2012 Intent Nunu Stephens LPN Spirometry (40517)By: Shilpi COLEMAN, On: 25-Nov-2012 Intent Mayda Comments: Computer not running so not able to perform test Aerosol Treatment ([id number])By: Shilpi On: 25-Nov-2012 Intent Mayda COLEMAN Spirometry ([id number])By: Thee COLEMAN, On: 21-Nov-2012 Intent Erna Schaefer Comments: good effort and curve normal Radiology - Chest- PA and LatBy: On: 21-Nov-2012 Intent Erna Kingston DO Eprescribed prescriptions ([id number])By: On: 21-Nov-2012 Intent Makayla Dillard LPN ADMINISTRATION OF PNEUMOCOCCAL On: 31-Oct-2012 Intent VACCINE ([id number])By: Edita Cabral MD Comments: Lot #[id number]-right deltoidDose0.5mlgiven by: [facility] per fax. M PNEUM VAC ADLT/IMUMNOSPR, SBC/INTRM On: 31-Oct-2012 Intent ([id number])By: Jodi Carvalho LPN Eprescribed prescriptions ([id number])By: On: 18-Oct-2012 Intent Teressa Molina LPN FLU VAC, SPLIT, >3 YEARS, INTRAMUSC On: 01-Jul-2012 Intent ([id number])By: Eli Bowman CNP Comments: Lot:[id number]:prefilled syringeSite: L Dltd, IMGiven by: MERRY TorresVIS Eli hamilton CNP ADMINISTRATION OF INFLUENZA VIRUS On: 01-Jul-2012 Intent VACCINE (G0008)By: Eli Bowman CNP, CNP, Mary E SPECIMEN HANDLING/TRANSPORT On: 01-Jul-2012 Intent ([id number])By: Sue Ewing LPN Solu -Medrol Injection, 125 mg On: 23-Nov-2011 Intent ([id number])By: Edita Cabral MD Comments: Lot [id number]-R hip, IMDose 125mggiven by:Teressa Radiology - ChestBy: Misha PROCTOR, On: 23-Nov-2011 Intent Edita Clinton Comments: wet read Pulse Oximetry ([id number])By: Benoit On: 23-Nov-2011 Intent AKBAR Aerosol Treatment (46092)By: Colby On: 16-Nov-2011 Intent INDUSTRIAL AUTOMATION ENGINEER, Elif Ciesa INDUSTRIAL AUTOMATION ENGINEER, Eli Lubin Pulse Oximetry (67068)By: Vin, On: 16-Nov-2011 Intent Lynn Comments: 93 FLU VAC, SPLIT, >3 YEARS, INTRAMUSC On: 16-Nov-2011 Intent ([id number])By: Lynn Banuelos Comments: received at work SPECIMEN HANDLING/TRANSPORT On: 14-Sep-2011 Intent (57065)By: Edita Cabral MD SPECIMEN HANDLING/TRANSPORT On: 26-Aug-2011 Intent ([id number])By: Sue Ewing LPN Ultrasound - LiverBy: Misha PROCTOR, On: 11-Jun-2011 Intent Edita Clinton EKG (30990)By: Edita Cabral MD On: 16-Feb-2011 Intent MAMMOGRAM, SCREENING, BOTH BREASTS On: 13-Mar-2010 Intent ([id number])By: Edita Cabral MD MAMMOGRAM, SCREENING, BOTH BREASTS On: 06-Mar-2010 Intent ([id number])By: Edita Cabral MD MAMMOGRAM, SCREENING, BOTH BREASTS On: 13-Feb-2010 Intent ([id number])By: Edita Cabral MD Spirometry (23925)By: Misha PROCTOR, On: 01-Oct-2009 Intent Edita Clinton ELECTROCARDIOGRAM, COMPLETE (ECG) On: 01-Oct-2009 Intent (12163)By: Edita Cabral MD Pulse Oximetry (20138)By: Benoit On: 01-Oct-2009 Intent AKBAR Spirometry (94372)By: Thee COLEMAN, On: 30-Jul-2009 Intent Erna Schaefer Comments: good effort and curve normal Radiology - Chest- PA and LatBy: On: 30-Jul-2009 Intent Erna Kingston DO Pulse Oximetry (10183)By: Vin, On: 30-Jul-2009 Intent Lynn Comments: 94%repeat 97-98 EKG (41593)By: Erna Kingston DO On: 14-Jul-2009 Intent Comments: ekg showed normal sinus rhythym, normal axis, no acute st/t wave changes old t wave inversion noted on previous ekg Pulse Oximetry (01573)By: Vin, On: 11-Jul-2009 Intent Lynn Comments: 97% Solu -Medrol Injection, 125 mg On: 09-Jul-2009 Intent ([id number])By: Erna Kingston DO Comments: Lot #:[id number] date:mount given:125mgRoute:IM Site given:left buttockGiven by: MARIA DOLORES Cordon Aerosol Treatment (50799)By: Thee On: 09-Jul-2009 Intent Erna COLEMAN Pulse Oximetry (96289)By: Thee COLEMAN, On: 09-Jul-2009 Intent Erna Schaefer Comments: repeat after treatment was 96 Pulse Oximetry ([id number])By: Vin On: 09-Jul-2009 Intent Lynn Comments: 93% Spirometry (22197)By: Gildardo SOUSA, On: 25-Jan-2009 Intent Sue MAMMOGRAM, SCREENING, BOTH BREASTS On: 29-May-2008 Intent ([id number])By: Edita Cabral MD EKG (81012)By: Edita Cabral MD On: 29-May-2008 Intent Spirometry (52720)By: Misha PROCTOR, On: 27-Dec-2007 Intent Edita Clinton Ultrasound - ThyroidBy: Misha PROCTOR, On: 22-Mar-2007 Intent Edita Clinton MAMMOGRAM, SCREENING, BOTH BREASTS On: 22-Mar-2007 Intent ([id number])By: Edita Cabral MD MAMMOGRAM, SCREENING, BOTH BREASTS On: 22-Mar-2007 Intent (14568)By: Edita Cabral MD ELECTROCARDIOGRAM, COMPLETE (ECG) On: 22-Mar-2007 Intent (03993)By: Edita Cabral MD Planned Medications INJECTION, KETOROLAC [...] Mayda Dobbins DO Instructions Name Dates Details Nonsmoker : How to access health information [...] disease, bilateral : DISCONTINUED - POTASSIUM SERUM (14808) Indication: Active Meniere's disease, bilateral Elevated LFTs : DISCONTINUED - HEPATIC FUNCTION PANEL (07728) Indication: Elevated LFTs Diabetes mellitus type II, controlled : Patient Instructions Indication: Diabetes mellitus type II, controlled Cough : Patient Instructions Indication: Cough Pharyngitis, acute : Patient Instructions Indication: Pharyngitis, acute Asthma in adult : Patient Instructions Indication: Asthma in adult Active Meniere's disease, bilateral : Patient Instructions Indication: Active Meniere's disease, bilateral Encounters Annotation/Addendum On: 01-Aug-2018 16:00 Encounter Diagnosis: Bronchiectasis [...] nerve test and was told by Dr. Sims that she had neuropathy. Was given neurontin [...] reveiwing printed for pt to take to [facility] , [ADDITIONAL REASON] Weight Gain [...] urine 3-4 per day tried meds from [facility] but did not work and still urinary [...] care, told to go to ER at [facility] diagnosed with Esophagitis was given pepcid [...] occurred following a specific injury (lifting at [employer] for years but no fall). The injury [...] bathroom. The patient has completed the f [facility] preventative measures: PAP smear (needs updated ), mammography (needs updated ) and colonoscopy (needs updated however patient refuse to have done bc she was hospitalized with the last one with infection for 5 days ). The patient does have durable power of workers compensation defense attorney and living will. The patient has [...] for Tdap vaccination (Renamed from Need for erxswjxbaw-wepyqck-ewwxnvmjk (Tdap) vaccine, adult/adolescent), Goiter (Renamed from Big [...] from Other and unspecified hyperlipidemia (272.4)) End: 5-May-2009 16:46 [facility] Office Visit On: [...] symptoms/reason for visit include/s Symptoms include other (keniadevendra everett End: 29-May-2008 10:01 t sided weakness ). [...] (240.9), Hypothyroidism(244.9) [facility] Payers [place] Lilly Toro; a guarantor
--- OUTSIDE RECORDS SUMMARY | 2018-11-25 15:18 | XMS RPT_ITS | Continuity of Care Document ---
:1950 Author Organization [facility] Address [address] [place] [address] Phone Care Team Providers Name Role Phone Colby JANENEEli E Unavailable Mina Baer MD Unavailable Nhung Duval Unavailable [facility], [facility] Unavailable Kasi Scott Unavailable Mariia Zhang Unavailable [...] Active BMI 35.0-35.9,adult (Z68.35, V85.35) Status: Active Bronchitis (J40, 490) Status: Active [...] Colonoscopy refused (Z53.20, V64.2) Comments: colonsopy with Jasara many yeasr ago, ended up in hopsital [...] with bottles, extensive review with nurse and [facility], med list updated Status: Active Postmenopausal (Renamed from Postmenopausal status) (Z78.0, V49.81) Status: Active Pregnancies () Comments: 2 Status: Active S/P hysterectomy (Z90.710, V88.01) Comments: for endometrial hyperplasia 2016 Status: Active Shortness of breath (R06.02, 786.05) Status: Active Sleep apnea (G47.30, 780.57) Comments: needs repeat sleep study at [facility] to get back on cpap Status: [...] days Quantity: 120 {Milliliter} Refills: 0 Ordered:29-Jul-2018 Eli Bowman CNP, CNP, Mary E Start : 29-Jul-2018 Active Ergocalciferol 04134 UNIT Oral Capsule 1 Capsule twice weekly for 0 days Quantity: 24 {Capsule} Refills: 0 Ordered:23-Jun-2018 Eli Bowman CNP ECiesezio WATTERS Eli Lubin Start : 23-Jun-2018 Active [...] {Tablet} Refills: 3 Ordered:26-Jun-2018 Colby WATTERS Eli Mejiaezio WATTERS Eli Lubin Start : 26-Jun-2018 End : 18-Jan-2018 Active Oxybutynin Chloride ER 15 MG Oral Tablet Extended Release 24 Hour one tablet daily (15 MG) Active Comments:Catrachito Pen Baldwyn 01/14 31G X 5 MM Miscellaneous 1 (one) Misc Misc qd with Victoza for 0 days Quantity: 1 {Box} Refills: 3 Ordered:03-Feb-2018 Edita Cabral MD Start : 19-Jan-2018 Active ProAir HFA 108 (90 Base) MCG/ACT Inhalation Aerosol Solution 1-2 puffs Aerosol Soln every four hours, as needed for 30 days Quantity: 1 {Box} Refills: 3 Ordered:29-Jul-2018 Cobly WATTERS Eli Mejiaezio WATTERS Eli Lubin Start : 29-Jul-2018 Active Comments:Medication taken as needed. PROzac 40 MG Oral Capsule 2 (two) Capsule qd for 90 days Quantity: 180 {Capsule} Refills: 3 Ordered:18-Apr-2018 Colby WATTERS Eli Renata WATTERS Eli Lubin Start : 18-Apr-2018 Active Symbicort 80-4.5 MCG/ACT Inhalation Aerosol 1 (one) Puff Puff bid for 0 days Quantity: 1 {Inhaler} Refills: 0 Ordered:02-Sep-2017 Nunu Stephens LPN Start : 30-Aug-2017 Active Synthroid 75 MCG Oral Tablet uad Tablet qd except 1 1/2 on Sundays for 90 days Quantity: 102 {Tablet} Refills: 1 Ordered:20-Jul-2018 Colby WATTERS, Eli Yanez CNP, Elif Start : 20-Jul-2018 Active Victoza 18 MG/3ML Subcutaneous Solution Pen-injector 1 (one) Soln Pen-inj 0.6 mg SC daily for 0 days Quantity: 1 {Each} Refills: 6 Ordered:02-Nov-2017 Colby WATTERS, Eli Yanez CNP, Elif Start : 02-Nov-2017 Active Comments:with needles ZyPREXA 10 MG Oral Tablet 1 Tablet at night for 0 days Quantity: 90 {Tablet} Refills: 1 Ordered:26-Jul-2018 Colby WATTERS, Eli Yanez CNP, Elif Start : 26-Jul-2018 Active ABILIFY, 15MG (Oral [...] : 07-Nov-2012 End : 12-Feb-2014 Inactive Drisdol 75375 UNIT Oral Capsule 1 (one) Capsule once week for 90 days Quantity: 12 {Capsule} Refills: 1 Ordered:03-Jan-2018 Mo MERRYNaomi Start : 10-Aug-2017 End : 03-Jan-2018 Inactive DULERA, 100-5MCG/ACT (Inhalation Aerosol) 1 Aerosol bid next 2 weeks for 0 days Quantity: 1 {Aerosol} Refills: 0 Ordered:07-Nov-2012 AKBAR [place] Start : 18-Oct-2012 End : 07-Nov-2012 Inactive ENABLEX, 7.5MG (Oral Tablet Extended Release 24 Hour) 1 (one) Tablet ER 24HR qd for 0 days Quantity: 30 {Tablet_ER_24HR} Refills: 6 Ordered:03-Aug-2011 Jesse SOUSA Teressa Jose Start : 11-Jun-2011 End : 03-Aug-2011 Inactive [...] {Capsule} Refills: 0 Ordered:26-Aug-2011 Colby WATTERS, Eli Mejiaezio WATTERS, Eli Lubin Start : 26-Aug-2011 End : 05-Sep-2011 Inactive Maxzide 75-50 MG Oral Tablet 1 (one) Tablet qd for 90 days Quantity: 90 {Tablet} Refills: 0 Ordered:23-Apr-2017 Colby WATTERS, Eli Mejiaezio WATTERS, Eli Lubin Start : 23-Apr-2017 End : [...] : 29-Jul-2010 End : 30-Sep-2010 Inactive Nystatin 227653 UNIT/ML Mouth/Throat Suspension 4-6 Milliliter swish and spit qid for 7 days Quantity: 1 {Bottle} Refills: 0 Ordered:03-Jun-2017 Nunu Root Start : 03-Jun-2017 End : 10-Jun-2017 Inactive Omeprazole 40 MG Oral Capsule Delayed Release 1 (one) Capsule DR daily for 0 days Quantity: 30 {Capsule} Refills: 0 Ordered:12-Oct-2017 Mo SOUSA Naomi Start : 03-Jun-2017 End : 12-Oct-2017 Inactive [...] : 12-Dec-2015 End : 16-Jun-2016 Inactive Comments:per [facility] er Topamax 100 MG Oral Tablet [...] 03-Jan-2018 Inactive Comments:1 rambo as directed ZOSTAVAX, 76887BLZ/0.65ML (Subcutaneous Solution Reconstituted) 1 For Solution once [...] Start : 04-Jan-2017 End : 04-Jan-2017 Discontinued Comments:[facility] er FLEXERIL, 10MG (Oral Tablet) 1 [...] : 13-Nov-2013 End : 13-Nov-2013 Discontinued Comments:ID [id number] Medrol 4 MG Oral Tablet Therapy Pack 1 (one) Milligram uad for 0 days Quantity: 1 {Package} Refills: 0 Ordered:27-Jul-2017 SlaNaomi fine LPN Start : 20-Jul-2017 End : 27-Jul-2017 Discontinued MEVACOR, 40MG (Oral Tablet) 2 qd for 0 days Refills: 0 Ordered:26-Sep-2007 AKBAR [place] End : 26-Sep-2007 Discontinued Mobic 7.5 MG Oral Tablet 1 (one) Tablet Tablet daily for 90 days Quantity: 90 {Tablet} Refills: 1 Ordered:04-Jan-2017 Colby WATTERS, Eli Yanez CNP, Eli Lubin Start : 04-Jan-2017 End [...] 18-Jan-2017 End : 27-Jul-2017 Discontinued Vitamin D3 12651 UNIT Oral Tablet 1 (one) Tablet Tablet [...] for Tdap vaccination (Renamed from Need for njuocweoaf-fewotxp-hwlgaispx (Tdap) vaccine, adult/adolescent) (Z23, V06.1) Status: Inactive as of 12-Dec-2015 Other and unspecified hyperlipidemia (E78.5, 272.4) Status: Inactive as of 24-Jul-2013 Pharyngitis, acute (J02.9, 462) Comments: rapid strep negativeCulture Status: Inactive as of 20-Jan-2016 Pneumonitis (J18.9, 486) Status: Inactive as of 14-May-2014 Pre-operative exam (Renamed from Preop examination) (Z01.818, V72.84) Comments: Getting 4 tooth out 07/17 next week, [facility].HAs MARTHA has CPAP but not been using it for 2 years, need to see Bavis for retitration.Cr : 1.77 , repeat labs, US kidneyDM type 2: HBa1c 5.4 BMI:(obesit y increase the risk of wound infection, PE.Not malnourishedLabs:CBCCMPPT/INRtype and screen gel(61918)EK06/10/16: no acute changesHas good social support and [...] under good control Patient to use Mucinex yjqc-pcn-pckshfw which helped her. Status: Inactive as of [...] Completed Comments: 2000 Tubal ligation 1963 Completed [facility] Left endolymphatic sac Completed decompression with shunt and middle ear infusion with decadron 03/05 Date Value Details 01-Aug-2018 CTA Chest W/WO Contrast Result: Comments: See Note; NOTES: [facility] Imaging Services [address] [place] [address] CTA Chest W/WO Contrast MR#: [id number] Acct: [id number] Name: ELIZABETH TORO Rep #: [id number] : 1950 F 67 From: Hardeep Calix MD PCP: Eli Bowman NP Status: REG CLI Study: CTA Chest W/WO Contrast Date of Exam: 08/01/18 Exam# [id number] Ordering Dr: Eli Bowman STUDY: CTA CHEST/T [...] Service support , CC: Eli Bowman NP Marketing Proposal Specialist: Signed 29-Jul-2018 Chest PA and Lateral Result: Comments: See Note; NOTES: [facility] Imaging Services [address] [place] [address] Chest PA and Lateral MR#: [id number] Acct: [id number] Name: ELIZABETH TORO Rep #: [id number] : 1950 F 67 From: Cami Klein MD PCP: Eli Bowman NP Status: REG CLI Study: Chest PA and Lateral Date of Exam: 07/29/18 Exam# [id number] Ordering Dr: Eli Bowman STUDY: X-RAY CHEST [...] Service support , CC: Eli Bowman NP Marketing Proposal Specialist: Signed 21-Apr-2018 Downtime Report Result: Comments: See Note; NOTES: [facility] Medical Records Department [address] [place] [address] Downtime Report MR#: [id number] Acct: [id number] Name: ELIZABETH TORO Rep #: [id number] : 1950 67 From: Alon Klein PCP: Eli Bowman NP Status: REG RCR This patient was seen during an EMR downtime April 04, 2018 - April 11, 2018. This patient may have a combination of p aper and electronic documentation or all paper documentation. All documentation is viewable within the e-chart portion of [employer] for each patient visit. 12-Apr-2018 NCS and/or EMG Patient Result: Comments: See Note; NOTES: [facility] Pulmonary Services/Neurology [address] [place] [address] MR#: [id number] Acct: [id number] Name: ELIZABETH TORO Rep #: [id number] : 1950 67 From: Kal Hernandez MD Referring Dr: Eli Bowman NP Status: REG CLI Ordering Dr: Date: Location: PSN Sex: F C NCS and/or EMG Patient [...] ____ Kal Hernandez MD CC: Eli Bowman SYSTEMS PROGRAMMER ANALYST; Kal Hernandez MD Date Dictated: 04/12/18949 Date Transcribed: 04/12/18949 Marketing Proposal Specialist: MOHIT Signed 01-Feb-2018 PT D/C Summary (1) Result: Comments: See Note; NOTES: [facility] Physical Therapy [facility] 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 Thank you for the referral of this patient. Sincerely, Cristopher Francis, PT, <Electronically signed by Andrea Francis PT, ATC> 02/01/18 0823 CC: Eli Bowman SYSTEMS PROGRAMMER ANALYST; Mayda Dobbins DO [facility] Signed 30-Dec-2017 Inital Evaluation (1) - PT Result: Comments: See Note; NOTES: [facility] Physical Therapy [facility] 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 Please let me know if there are questions or concerns regarding this plan of care. Physician Signature: Date: <Electronically signed by Cristopher Francis PT, ATC> 12/30/17 1056 CC: Eli Bowman NP; Mayda Dobbins DO DT: 0 12/30/17 [facility] Signed For Medicare only, by signing this I certify the plan of care. Physicians Signature Date 08-Oct-2017 Operative Report Result: Comments: See Note; NOTES: [facility] Medical Records Department [address] [place] [address] Operative Report 10/08/172017 MR#: [id number] Acct: [id number] Name: XAVIER TORO Rep #: [id number] : 1950 67 From: Oscar Winston MD PCP: Eli Bowman NP Status: REG SDC Y Location: [place] [address] Problem List (1) Intrinsic (urethral) sphincter deficiency [...] Discharge Instruction Result: Comments: See Note; NOTES: [facility] Medical Records Department [address] [place] [address] Instructions for Home/Discharge Instructions 10/08/171950 MR#: [id number] Acct: [id number] Name: ELIZABETH TORO Rep #: [id number] : 1950 67 From: Oscar Winston MD PCP: Eli Bowman NP Status: REG [facility] Discharge Diet: Light diet - advance as [...] and Lateral Result: Comments: See Note; NOTES: [facility] Imaging Services [address] [place] [address] Chest PA and Lateral MR#: [id number] Acct: [id number] Name: JAYYELIZABETH A Rep #: [id number] : 1950 F 67 From: Yury Arthur MD PCP: Eli Bowman Status: REG CLI Study: Chest PA and Lateral Date of Exam: 08/30/17 Exam# [id number] Ordering Dr: Mayda Dobbins DO STUDY: X-RAY [...] , CC: Eli Bowman; Mayda Dobbins DO Marketing Proposal Specialist: Signed 20-Jul-2017 L/S Spine Min 4 Views Result: Comments: See Note; NOTES: [facility] Imaging Services [address] [place] [address] L/S Spine Min 4 Views MR#: [id number] Acct: [id number] Name: ELIZABETH TORO Rep #: [id number] : 1950 F 66 From: Dionte Lujan DO PCP: Eli Bowman Status: REG CLI Study: L/S Spine Min 4 Views Date of Exam: 07/20/17 Exam# [id number] Ordering Dr: Edita Cabral MD STUDY: X-RAY [...] support , Fax CC: Eli Cabral MD Marketing Proposal Specialist: Signed 20-Jul-2017 Shoulder min 2 Views Result: Comments: See Note; NOTES: [facility] Imaging Services [address] [place] [address] Shoulder min 2 Views MR#: [id number] Acct: [id number] Name: ELIZABETH TORO Rep #: [id number] : 1950 F 66 From: Dionte Lujan DO PCP: Eli Bowman Status: REG CLI Study: Shoulder min 2 Views Date of Exam: 07/20/17 Exam# [id number] Ordering Dr: Edita Cabral MD STUDY: X-RAY - RIGHT [facility] REASON FOR EXAM: Female, 66 years [...] Service support , CC: Eli Cabral MD Marketing Proposal Specialist: Signed 11-May-2017 PT D/C Summary (1) Result: Comments: See Note; NOTES: [facility] Physical Therapy [facility] [address] [place] [address]. [address] [place] [address] Fax REHABILITATION SERVICES DISCHAR GE SUMMARY MR#: [id number] Acct: [id number] Name: ELIZABETH TORO Rep #: [id number] : 1950 66 From: Naomi COMER Referring [...] please feel free to call me at [phone]. Thank you for the referral of this patient. Sincerely, Naomi Osoroi <Electronically signed by Naomi COMER> 09/17 0919 CC: Nunu Root; Eli Colby Signed 14-Apr-2017 Inital Evaluation (1) - PT Result: Comments: See Note; NOTES: [facility] Physical Therapy [facility] [address] [place] [address] Fax REHABILITATION SERVICES INITIAL EVALUATION MR#: [id number] Acct: [id number] Name: ELIZABETH TORO Rep #: [id number] : 1950 66 From: Naomi Osorio MPT [...] to be FAXED BACK to us at [phone] for Medicare purposes. Please let me know if there are questions or concerns regarding this plan of care. Physician Signature: Date: <Electronically signed by Naomi Osorio MPT> 04/14/17 1906 CC: Nunu Root; Eli Bowman Signed For Medicare only, by sign ing this I certify the plan of care. Physicians Signature Date 08-Apr-2017 Knee 4 or More Views Result: Comments: See Note; NOTES: [facility] Imaging Services [address] [place] [address] Verdana 4d Knee 4 or More Views MR#: [id number] Acct: [id number] Name: ELIZABETH TORO p #: [id number] : 1950 F 66 From: Chalino Mancia MD PCP: Eli Bowman Status: REG CLI Study: Knee 4 or More Views Date of Exam: 04/08/17 Exam# [id number] Ordering Dr: Mayda Dobbins DO STUDY: X-RAY [...] the right knee. No fracture Electronically Signed: [place], 20 17/04/09 at 6:58 EDT Tel , Service support , CC: Eli Bowman; Mayda Dobbins DO Marketing Proposal Specialist: Signed 08-Apr-2017 Knee 4 or More Views Result: Comments: See Note; NOTES: [facility] Imaging Services [address] [place] [address] Verdana 4d Knee 4 or More Views MR#: [id number] Acct: [id number] Name: ELIZABETH TORO Viridiana p #: [id number] : 1950 F 66 From: Chalino Mancia MD PCP: Eli Bowman Status: REG CLI Study: Knee 4 or More Views Date of Exam: 04/08/17 Exam# [id number] Ordering Dr: Mayda Dobbins DO STUDY: X-RAY [...] of the left knee Electronically Signed: Chalino Brownleslie Bray, at 6:59 EDT Tel , Service support , CC: Eli Bowman; Mayda Dobbins DO Marketing Proposal Specialist: Signed 15-Mar-2017 Sleep Study Report Result: Comments: See Note; NOTES: [facility] SLEEP DISORDER CENTER [address] [place] [address] Polysomnography with NCPAP MR#: [id number] Acct: [id number] Name: ELIZABETH TORO p #: [id number] : 1950 66 From: Kal Hernandez MD [...] version). Please note that a reference to [facility] AHI in this report is consistent with the current Hypopnea definition according to Medicare Criteria and an AAS AHI reference is consistent with the current Hypopnea defini tion according to the AASM criteria and is recognized by [facility] as the RDI. PROCEDURE: The study was attended continuously by a lot technician. Monitored parameters included left and right [...] body mass index of 30.9 and an Celina Sleepiness Scale score of 6. There is [...] repeat CPAP study can be requested. Kal Hernnadez MD T: NTS JOB: [id number] CC: Kal Hernandez MD 115 1151 03/15/17 1451 <Electronically signed by Kal Hernandez MD> Date Kal Hernandez MD Co-signature (if applicable) Date Signed 05-Jan-2017 Esophagus Only Result: Comments: See Note; NOTES: [facility] Imaging Services [address] [place] [address] Verdana 4d Esophagus Only MR#: [id number] Acct: [id number] Name: ELIZABETH TORO Rep #: [id number] : 1950 F 66 From: Gabriela Ragland MD PCP: Eli Bowman Status: REG CLI Study: Esophagus Only Date of Exam: 01/05/17 Exam# [id number] Ordering Dr: Sofia Bragg MD STUDY: AIR-CONTRAST [...] , CC: Eli Bowman; Sofia Bragg MD Marketing Proposal Specialist: Signed 29-Dec-2016 Emergency Department Summary Result: Comments: See Note; NOTES: [facility] Medical Records Department [address] [place] [address] Emergency Department Summary MR#: [id number] Acct: [id number] Name: XAVIER TORO Rep #: [id number] : 1950 66 From: Sofia Bragg MD PCP: Eli Bowman Status: DEP ER DATE OF SERVICE: 12/29/2016 CHIEF COMPLAINT: Sore throat. HISTORY OF PRESENT ILLNESS: This is a 66-year- old woman that states she was at [employer], choked on a piece of potato 5 [...] the case with Dr. Pena who is senior integration developer for GI and he suggested ordering an [...] Dominguez Rose C: Eli Pena MD T: [facility] JOB: [id number] 12/29/16 19 29 <Electronically signed by Sofia Bragg MD> Date Sofia Bragg MD Cosigner Signature (If Indicated): Date CC: Eli Pena Date Dictated: 12/29/161828 Date Transcribed: 12/29/161828 Marketing Proposal Specialist: Signed 29-Dec-2016 Discharge Instruction Result: Comments: See Note; NOTES: [facility] Medical Records Department [address] [place] [address] Discharge Instruction 12/29/161829 MR#: [id number] Acct: [id number] Name: JAYYMARTHAELIZABETH A Rep #: [id number] : 1950 66 From: Sofia Bragg MD [...] your Primary Care Provider. Call [facility] ([phone] ) or report to the closest Emergency Room. Call 911 if necessary. 12/29/161832 <Electronically signed by Sofia Bragg MD> Date Sofia elliott MD Cosigner Signature (If Indicated): Date CC: Eli Colby 07-Aug-2016 Sleep Study Report Result: Comments: See Note; NOTES: [facility] SLEEP DISORDER CENTER [address] [place] [address] Split Night Sleep Study MR#: [id number] Acct: [id number] Name: ELIZABETH TORO Rep #: [id number] : 1950 65 From: Kal Hernandez MD [...] version). Please note that a reference to [employer] AHI in this report is consistent with the current Hypopnea definition according to Medicare Criteria and an AAS AHI reference is consistent with the current Hypopnea defin ition according to the AASM criteria and is recognized by [facility] as the RDI. PROCEDURE: The study was attended continuously by a lot technician. Monitored parameters included left and right [...] a body mass index of 29.3 and Celina Sleepiness Scale score of 2. There is [...] humidity. Kal Hernandez MD T: NTS JOB: [id number] CC : Kal Hernandez MD 1144 1144 08/07/16 0959 <Electronically signed by Kal Hernandez MD> Date Kal Hernandez MD Co-signature (if applicable) Date Signed -Aug-2016 Kidney and Bladder Result: Comments: See Note; NOTES: [facility] Imaging Services [address] [place] [address] Shaddadamian 4d Kidney and Bladder MR#: [id number] Acct: [id number] Name: ELIZABETH TORO Rep #: [id number] : 1950 F 65 From: Anibal Lan MD PCP: Donnie Gonzales Status: REG CLI Study: Kidney and Bladder Date of Exam: 08/04/16 Exam# [id number] Ordering Dr: Beto Henry MD UDY: RENAL [...] Anibal Lan MD at 11:16 EDT Tel [phone], Service support [phone], CC: Soumya Henry M.D.; Donnie Gonzales Marketing Proposal Specialist: Signed 23-Jun-2016 Operative Report Result: Comments: See Note; NOTES: [facility] Medical Records Department [address] [place] [address] Operative Report MR#: [id number] Acct: [id number] Name: ELIZABETH TORO Rep #: [id number] : 1950 65 From: Gm Brush MD PCP: Donnie Gonzales Status: REG [facility] DATE OF SERVICE: 06/22/2016 DATE OF PROCEDURE: June 22, 2016 SURGEON: Gm Brush M.D. EMERGENCY VETERINARY ASSISTANT: Lia jacinto. ANESTHESIA: Gem Shelby and Frank [...] ovaries. Gm Brush MD T: NTS JOB: [id number] 06/23/16 0725 <Electronically signed by Gm Brush MD> Date __ Gm Brush MD Cosigner Signature (If Indicated): Date CC: Gm Brush MD; Donnie Gonzales Date Dicta nahed: 06/22/161102 Date Transcribed: 06/22/161102 Marketing Proposal Specialist: Signed 22-Jun-2016 Discharge Instruction Result: Comments: See Note; NOTES: [facility] Medical Records Department [address] [place] [address] Instructions for Home/Discharge Instructions 06/22/16 0904 MR#: [id number] Acct: [id number] Name: ELIZABETH TORO Rep #: [id number] : 1950 65 From: Gm Brush MD PCP: Donnie Gonzales Status: REG [facility] Discharge Diet: No Restrictions Discharge Activity: Return [...] CC: Donnie Gonzales 10-Jun-2016 ELECTROCARDIOGRAM, COMPLETE (ECG) (04593) Result: [MEASUREMENTS ANALYSIS] Date of Test: 06/10/2016 09:39:53; Heart Rate: 58; [place] Interval: 208; QRS: 86; QT Interval: 480; Corrected QT Interval (QTc): 477; P [place]: 45; QRS [place]: 11; T [place]: 23; Blood Pressure: 112/70 [ECG DIAGNOSTIC STATEMENTS] Date of Test: 06/10/2016 09:39:53; Summary: Sinus Bradycardia - Negative T-waves -May be normal - possible Anteroseptal ischemia. BORDERLINE 13-Apr-2016 Operative Report Result: Comments: See Note; NOTES: [facility] Medical Records Department [address] [place] [address] Operative Report MR#: [id number] Acct: [id number] Name: XAVIER TORO Rep #: [id number] : 1950 65 From: Gm Brush MD PCP: Edita Cabral MD Status[facility] DATE OF SERVICE: 04/13/2016 DATE OF PROCEDURE: [...] curettings. Gm Brush MD T: NTS JOB: [id number] 04/13/16 1838 <Electronically signed by Gm Brush MD> Date Gm Brush MD Cosigner Signature (If Indicated): Date CC: Edita Young; Gm Brush MD Date Dictated: 04/13/16 1031 Date Transcribed: 04/13/16 1031 Marketing Proposal Specialist: Signed 13-Apr-2016 Discharge Instruction Result: Comments: See Note; NOTES: [facility] Medical Records Department [address] [place] [address] Instructions for Home/Discharge Instructions 04/13/16 1003 MR#: [id number] Acct: [id number] Name: ELIZABETH TORO Rep #: [id number] : 1950 65 From: Gm Brush MD PCP: Edita Cabral MD Status: REG [facility] Discharge Diet: No Restrictions Discharge Activity: R [...] mg PO DAILY 04/10/16 Hydrocodone Bitart/Apap 5-325 [[facility] 5MG-325MG] 1 tablet PO Q4H PRN PRN #10 tablet 04/13/16 The followi ng prescriptions were given: Hydrocodone Bitart/Apap 5-325 [[facility] 5MG-325MG] 1 tablet PO Q4H PRN PRN #10 tablet PRN Reason: Mod-Severe Pain () Please Follow Up With: Gm Brush When: 2-3 jason bowers 04/13/16 1004 <Electronically signed by Gm Brush MD> Date Gm Brush MD CC: Edita Cabral MD 22-Mar-2016 Emergency Department Summary Result: Comments: See Note; NOTES: [facility] Medical Records Department [address] [place] [address] Emergency Department Summary MR#: [id number] Acct: [id number] Name: ELIZABETH TORO Rep #: [id number] : 1950 65 From: Nando Fuller MD [...] C: Edita Brush MD T: NTS JOB: [id number] 03/22/16 0247 <Electronically signed by Nando Fuller MD&ezio mp;#62; Date Nando Fuller MD Cosigner Signature (If Indicated): Date CC: Edita Cabral MD; Otilia Brush MD Date Dictated: 03/21/1650 Date Transcribed: 03/21/1650 Marketing Proposal Specialist: Signed 21-Mar-2016 Discharge Instruction Result: Comments: See Note; NOTES: [facility] Medical Records Department [address] [place] [address] Discharge Instruction 03/21/1647 MR#: [id number] Acct: [id number] Name: ELIZABETH TORO Rep #: [id number] : 1950 65 From: Nando Fuller MD [...] ems, contact your doctor. Call [facility] ([phone]) or report to the closest Emergency Room. Call 911 if necessary. 03/21/16 0049 <Electronically signed by Nando Fuller MD&#6 2; Date Nando Fuller MD Cosigner Signature (If Indicated): Date CC: Edita Cabral MD 20-Mar-2016 Transvaginal Non- Result: Comments: See Note; NOTES: [facility] Imaging Services [address] [place] [address] Verdana 4d Transvaginal Non- MR#: [id number] Acct: [id number] Name: ELIZABETH DIAZ Rep #: [id number] : 1950 F 65 From: Jose Fu PCP: Edita Cabral MD Status: REG ER Study: Transvaginal Non- Date of Exam: 03/20/16 Exam# [id number] Ordering Dr: Oz Fuller MD STUDY: ULTRASOUND [...] DO at 0:42 EDT , Service support [phone], Fax CC: Edita Cabral MD; Nando Fuller MD Marketing Proposal Specialist: Signed 25-Feb-2016 Esophagus Only Result: Comments: See Note; NOTES: [facility] Imaging Services [address] [place] [address] Shaddana 4d Esophagus Only MR#: [id number] Acct: [id number] Name: XAVIER TORO Rep #: [id number] : 1950 F 65 From: Anibal Lan MD PCP: Edita Cabral MD Status: REG CLI Study: Esophagus Only Date of Exam: 02/25/16 Exam# [id number] Ordering Dr: Donnie Gonzales STUDY: X-RAY - [...] Anibal Lan MD at 10:35 EDT Tel [phone], Service support [phone], Fax RAD/Esophagus Only IMPRESSION: Normal plain film x-ray examination (barium swallow) of the esophagus. Electronically Signed: Anibal Lan MD at 10: 35 EDT Tel [phone], Service support [phone], CC: Edita Cabral MD; Donnie Gonzales Marketing Proposal Specialist: Signed 25-Feb-2016 Esophagus Only Result: Comments: See Note; NOTES: [facility] Imaging Services [address] [place] [address] Ale 4d Esophagus Only MR#: [id number] Acct: [id number] Name: XAVIER TORO Rep #: [id number] : 1950 F 65 From: Anibal Lan MD PCP: Edita Cabral MD Status: REG CLI Study: Esophagus Only Date of Exam: 02/25/16 Exam# [id number] Ordering Dr: Donnie Gonzales ADDENDUM by Anibal Lan MD on 03/31/16 at 0747 ADDENDUM This is an addendum report for PQRS purposes. 19 images were obtained. Electronically Signed: Anibal Lan MD at 7:47 EDT Tel [phone], Service support [phone], 03/31/16 0750 Date cc: Edita Cabral MD; Donnie Gonzales [...] Anibal Lan MD at 10:35 EDT Tel [phone], Service support [phone], RAD/Esophagus Only IMPRESSION: Normal plain film x-ray examination (barium swallow) of the esophagus. Electronically Signed: Anibal Lan MD at 10:35 EDT Tel [phone], Service support [phone], CC: Edita Cabral MD; Donnie Gonzales Marketing Proposal Specialist: Signed 10-Dec-2015 12 Lead Electrocardiogram Result: Comments: See Note; NOTES: [facility] Cardiovascular Services [address] [place] [address] 12 Lead EKG 12/08/15 1551 MR#: [id number] Acct: [id number] Name: ELIZABETH DASILVA Rep #: [id number] : 1950 65 From: Francisco Muller MD [...] ECG Confirmed by FRANCISCO MULLER MD ([id number]), scientific publications editor ZUNILDA KLEIN ([id number]) on 12/10/2015 9:33:10 AM Referred By: ROMEL Confirmed By:FRANCISCO MULLER MD 12/10/15 0933 Date ___ Francisco Muller MD CC: Edita Cabral MD Date Dictated: 12/08/151550 Date Transcribed: 12/08/151550 Marketing Proposal Specialist: Signed 10-Dec-2015 Emergency Department Summary Result: Comments: See Note; NOTES: [facility] Medical Records Department [address] [place] [address] Emergency Department Summary MR#: [id number] Acct: [id number] Name: ELIZABETH TORO Rep #: [id number] : 1950 65 From: Sisi Severino MD [...] Dominguez Galeano C: Edita Cabral MD T: [facility] JOB: [id number] 12/10/15 0232 <Electronically deepti d by Sisi Severino MD> Date Sisi Severino MD Cosigner Signature (If Indicated): Date C C: Edita Cabral MD Date Dictated: 12/08/151705 Date Transcribed: 12/08/151705 Marketing Proposal Specialist: Signed 08-Dec-2015 Discharge Instruction Result: Comments: See Note; NOTES: [facility] Medical Records Department [address] [place] [address] Discharge Instruction 12/08/15 1659 MR#: [id number] Acct: [id number] Name: ELIZABETH TORO Rep #: [id number] : 1950 65 From: Sisi Severino MD [...] problems, contact your doctor. Call [facility] ([phone]) or report to the closest Emergency Room. Call 911 if necessary. 12/08/15 1701 <Electronically signed by Sisi young MD> Date Sisi Severino MD Cosigner Signature (If Indicated): Date CC: Edita Cabral MD -Dec-2015 Chest PA and Lateral Result: Comments: See Note; NOTES: [facility] Imaging Services [address] [place] [address] Verdana 4d Chest PA and Lateral MR#: [id number] Acct: [id number] Name: ELIZABETH TORO Rep #: [id number] : 1950 F 65 From: Malaika Diana MD PCP: Edita Cabral MD Status: [facility] ER Study: Chest PA and Lateral Date of Exam: 12/08/15 Exam# [id number] Ordering Dr: Sisi Severino MD STUDY: X-RAY [...] MD at 16:41 EST , Service support [phone], RAD/Chest PA and Lateral IMPRESSION: No acute disease is demonstrated. Electronic ally Signed: Malaika Diana MD at 16:41 EST , Service support [phone], CC: Edita Cabral MD; Sisi Severino MD Marketing Proposal Specialist: Signed 16-Sep-2015 EKG (62054) Result: [MEASUREMENTS ANALYSIS] Date of Test: 09/16/2015 09:46:37; Heart Rate: 74; [place] Interval: 192; QRS: 88; QT Interval: 406; Corrected QT Interval (QTc): 430; P Wave [place]: 28; QRS [place]: -3; T Wave [place]: -1; Blood Pressure: 104/60 [ECG DIAGNOSTIC STATEMENTS] Date of Test: 09/16/2015 09:46:37; Summary: Sinus Rhythm Low voltage in precordial leads. - Nonspecific T-abnormality. ABNORMAL 11-Feb-2015 Kidney and Bladder Result: Comments: See Note; NOTES: [facility] Imaging Services [address] [place] [address] Ultrasound Report MR#: [id number] Acct: [id number] Name: ELIZABETH TORO Rep #: [id number] : 1950 F 64 From: Mina Cade MD PCP: Edita Cabral MD Status: REG CLI Study: Kidney and Bladder Date of Exam: 02/11/15 Exam# [id number] Ordering Dr: Edita Cabral MD STUDY: RE [...] measures 1.4 cm. There is no left marogt al mass or cyst. . There is [...] MD at 23:11 EDT , Service support [phone], CC: Edita Cabral MD Marketing Proposal Specialist: Signed 24-Jul-2014 PT Discharge Summary Result: Comments: See Note; NOTES: [facility] Physical Therapy [facility] [address] [place] [address] Fax REHABILITATION SERVICES DISCHARGE SUMMARY MR#: [id number] Acct: [id number] Name: ELIZABETH TORO Rep #: [id number] : 1950 63 From: Naomi Osorio Referring [...] clinic. Naomi Osorio, PT T: NTS JOB: [id number] <Electronically signed by Faraz Osorio > 07/24/14 1350 CC: Signed 15-Jun-2014 PT Discharge Summary Result: Comments: See Note; NOTES: [facility] Physical Therapy [address] [place] [address] Fax REHABILITATION SERVICES DISCHARGE SUMMARY MR#: [id number] Acct: [id number] Name: ELIZABETH TORO Rep #: [id number] : 1950 63 From: Naomi Osorio Referring [...] Sincerely, Naomi Osorio, PT T: NTS JOB: [id number] <Electronically signed by Naomi Osorio & amp;#62; 06/15/14 1410 CC: Signed 25-May-2014 Inital Evaluation - PT Result: Comments: See Note; NOTES: [facility] Physical Therapy [facility] [address] [place] [address]. [address] [place], [place] [address] Fax REHABILITATION SERVICES INITIAL EVALUATION MR#: [id number] Acct: [id number] Name: ELIZABETH TORO Rep #: [id number] : 1950 63 From: Naomi Osorio Referring Dr.: Edita Cabral MD Status: REG RCR Insurance: [facility] B Eval Date: [...] anterolateral shoulder. She is right-handed. 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 Naomi Osorio, PT T: MICHAEL JOB: [id number] <Electronically signed by Naomi Osorio > 4 1241 CC: Signed For Medicare only, by signing this I certify the plan of care. Physicians Signature Date 23-May-2014 Nuclear Stress Test - Chemical Result: Comments: See Note; NOTES: [facility] Imaging Services [address] [place] [address] Nuclear Medicine Report MR#: [id number] Acct: [id number] Name: ELIZABETH TORO Rep #: [id number] : 1950 F 63 From: Tano Nielsen MD PCP: Edita Cabral MD Status: REG CLI Study: Nuclear Stress Test - Chemical Date of Exam: 05/23/14 Exam# [id number] Ordering Dr: Álvaro Cabral MD EXERCISE TOLERANCE [...] LVEF of 61%. CC: Edita Cabral MD Marketing Proposal Specialist: PHILLIPS Signed 14-May-2014 Shoulder min 2 Views Result: Comments: See Note; NOTES: [facility] Imaging Services [address] [place] [address] Radiology Report MR#: [id number] Acct: [id number] Name: ELIZABETH TORO Rep #: [id number] : 1950 F 63 From: Hardeep Dumont MD PCP: Erna Kingston DO Status: REG CLI Study: Shoulder min 2 Views Date of Exam: 05/14/14 Exam# [id number] Ordering Dr: Edita Cabral MD STUDY: X-RAY [...] at 12:18 EDT , Servi ce support [phone], CC: Edita Cabral MD; Erna Kingston DO Marketing Proposal Specialist: Signed 30-Apr-2014 CTA Chest W/WO Contrast Result: Comments: See Note; NOTES: [facility] Imaging Services [address] [place] [address] CAT Scan Report MR#: [id number] Acct: [id number] Name: ELIZABETH TORO Rep #: [id number] : 1950 F 63 From: Hardeep Calix MD PCP: Erna Kingston DO Status: REG CLI Study: CTA Chest W/WO Contrast Date of Exam: 04/30/14 Exam# [id number] Ordering Dr: Erna Kingston DO STUDY: CTA [...] at 19 :01 EDT , Service support [phone], CC: Erna Kingston DO Marketing Proposal Specialist: Signed Family History Unknown Family Member Name [...] smoker Vital Signs Date Test Result Details 79-Kdu-99531:14 Temperature 98.2 f Comments: Method: Temporal Pulse [...] kg/m2 Body Surface Area Calculated 1.87 m2 44-Ebw-141363:47 Comments: Down 20 pounds in last 3 [...] kg/m2 Body Surface Area Calculated 1.96 m2 94-Xyt-993749:01 Temperature 98.1 f Comments: Method: Oral Pulse [...] kg/m2 Body Surface Area Calculated 1.96 m2 12-Tqw-844538:00 Temperature 97.6 f Comments: Method: Oral Pulse [...] Description Value Details :57 CREATININE FINGERSTICK Comments: [facility] [address] [place], [place] [address] EGFR WB 55.0000 mL/min (Abnormal) CREATININE WB 1.1 mg/dL (Abnormal) Range: 0.55-1.02 40-Qza-718559:19 D-Dimer (66202) Comments: PATIENT NOT FASTINGPERFORMED BY: [facility] CenterFxpgfg6318 [facility] [id number] D-Dimer 0.57 {mg/L_FEU} (Abnormal) Range: 0.00-0.49 Comments: According to the assay last chalker's published package insert, anormal (<0.50 mg/L FEU) D-dimer result in conjunction with a non-highclinical probability assessment, excludes deep vein thrombosis (D VT)and pulmonary embolism (PE) with high sensitivity. .D-dimer values increase with age and this can make VTE exclusion ofan older pop ulation difficult. To address this, the [employer] [employer], based on best available evidence [...] and an80 year old 0.80 mg/L FEU. 55-Rqp-120648:19 Troponin I (36149) Comments: PATIENT NOT FASTINGPERFORMED BY: [facility] CenterFgxzwx3036 [facility] [id number] Troponin I <0.01 ng/mL (Normal) Range: 0.00-0.04 66-Oji-939512:19 CPK MB FRACTION (39404) Comments: PATIENT NOT FASTINGPERFORMED BY: [address] [id number] Creatine Kinase (CK), MB 2.5 ng/mL (Normal) Range: 0.0-5.3 17-Zqo-066745:19 CREATINE KINASE TOTAL (11165) Comments: PATIENT NOT FASTINGPERFORMED BY: [facility] CenterPsemhc3197 [facility] [id number] Creatine Kinase,Total 103 U/L (Normal) Range: 24-173 46-Bpt-54076:16 CBC-Complete Blood Cnt No Diff Comments: [facility] [address] [place], [place], [address] MPV 10.5 fL (Normal) Range: 6.2-12.0 PLT [...] Range: 4.4-11.0 :16 Microalb:Creat Ratio,Random UR Comments: [facility] [address] [place], [address] MALB:CREAT Test not performed {mg/g_CRE} (Normal) MICROALBUMIN,UR < 5.0 mg/L (Normal) UR CREAT < 13.00 mg/dL (Normal) :16 PTHIN 51.5 pg/mL (Normal) Comments: [facility] [address] [place], [id number] Range: 18.4-80.1 :16 Renal Profile Comments: [facility] [address] [place], [id number] CO2 28.0 mmol/L (Normal) Range: 21.0-32.0 CL [...] Comments: Please note revised GLUCOSE reference range khgsidbvv35/02/2018. 31-Xwq-04256:16 Vitamin D,25 Hydroxy Comments: [facility] [address] [place], [address] Vitamin D 25-OH 69.4 ng/mL (Normal) Range: 29.95-100.01 Comments: Vitamin D 25(OH) Status Range Deficiency <20 ng/mL (50nmol/L) Insuffciency 20 - 30 ng/mL (50 - 75 nmol/L) Sufficiency 30 - 100 ng/mL (75 - 250 nmol/L) Toxicity >100 ng/mL (>250 nmol/L) :04 HgA1C , Office (62223) HgA1C , Office 5.5 % (Normal) Range: 4.6 - 7.1 :23 CALCIFEDIOL (87945) Comments: PATIENT WAS FASTINGPERFORMED BY: [facility] Jqslrh9005 [facility] [id number] Vitamin D, 25-Hydroxy 43.2 ng/mL (Normal) Range: 30.0-100.0 Comments: Vitamin D deficiency has been defined by the [place] of[place] and an Endocrine Society practice guideline as alevel of serum 25-OH vitamin D less than 20 ng/mL (1,2).The Endocrine Society went on to further define vitamin Dinsufficiency as a level between 21 and 29 ng/mL (2).1. IOM ([place] [employer]). 2010. Dietary reference intakes for calcium and D. [place]: The National Academies Press.2. Azael MF, Leslee NC, Hillary PHILLIPS, et al. Evaluation, treatment, and prevention of vitamin D deficiency: an Endocrine Society clinical practice guideline. JCEM. 2010; 96(7):1911-30. :23 CBC, Platelets & Auto Diff Comments: PATIENT WAS FASTINGPERFORMED BY: [facility] Pcoufn7432 [facility]in [place] [id number] ([address]) Immature Grans (Abs) 0.0 {x10E3/uL} (Normal) Range: [...] 3.77-5.28 WBC 7.1 {x10E3/uL} (Normal) Range: 3.4-10.8 07-Blv-15043:23 Metabolic Panel, Comprehensive Comments: PATIENT WAS FASTINGPERFORMED BY: [facility] CenterNyotnv3780 [facility] [id number] (72654) ALT (SGPT) 15 [iU]/L (Normal) Range: 0-32 [...] Glucose, Serum 82 mg/dL (Normal) Range: 65-99 63-Vsj-72092:23 MICROALBUMIN: CREATININE RATIO Comments: PATIENT WAS FASTINGPERFORMED BY: [employer]70 [facility] [id number] (47199) AND (35968) Alb/Creat Ratio <5.6 {mg/g_creat} (Normal) Range: 0.0-30.0 Albumin, Urine <3.0 ug/mL (Normal) Creatinine, Urine 53.5 mg/dL (Normal) 67-Elp-811702:31 Metabolic Panel, Basic Comments: PATIENT NOT FASTINGPERFORMED BY: [employer]70 [facility] [id number] (73189) Calcium, Serum 9.9 mg/dL (Normal) Range: 8.7-10.3 [...] (Normal) Range: 65-99 02-Nov-20178:55 HgA1C , Office (81641) Comments: 5.5 HgA1C , Office 5.5 % (Normal) Range: 4.6 - 7.1 4-Ems-970554:22 VITAMIN B12 AND FOLATES Comments: today; PATIENT NOT FASTINGPERFORMED BY: [facility] Toyolw8963 [facility] [id number] (15156) Folate (Folic Acid), Serum >20.0 ng/mL (Normal) Comments: A serum folate concentration of less than 3.1 ng/mL isconsidered to represent clinical deficiency. Vitamin B12 655 pg/mL (Normal) Range: 232-1245 Comments: Please note reference interval change :58 CALCIFEDIOL (93086) Comments: PATIENT NOT FASTINGPERFORMED BY: [employer] Xfiaqj0399 [facility] [id number] Vitamin D, 25-Hydroxy 25.2 ng/mL (Abnormal) Range: 30.0-100.0 Comments: Vitamin D deficiency has been defined by the [place] [employer] and an Endocrine Society practice guideline as alevel of serum 25-OH vitamin D less than 20 ng/mL (1,2).The Endocrine Society went on to further define vitamin Dinsufficiency as a level between 21 and 29 ng/mL (2).1. IOM ([place] of [employer]). 2010. Dietary reference intakes for calcium and D. [place]: The National Academies Press.2. Azael MF, Leslee NC, Hillary PHILLIPS, et al. Evaluation, treatment, and prevention of vitamin D deficiency: an Endocrine Society clinical practice guideline. JCEM. 2010; 96(7):1911-30. :58 TSH (THYROID STIMULATING Comments: PATIENT NOT FASTINGPERFORMED BY: [facility] Dxatnw5124 [facility] [id number] HORMONE) (69777) TSH 2.410 {uIU/mL} (Normal) Range: 0.450-4.500 :58 CBC WITH MANUAL DIFF (26442) Comments: PATIENT NOT FASTINGPERFORMED BY: [facility] CenterVyysbh4566 [facility] [id number] Immature Grans (Abs) 0.0 {x10E3/uL} (Normal) Range: [...] 3.77-5.28 WBC 7.7 {x10E3/uL} (Normal) Range: 3.4-10.8 25-Ysb-951085:58 Metabolic Panel, Comprehensive Comments: PATIENT NOT FASTINGPERFORMED BY: [facility]6370 [facility] [id number] (64901) ALT (SGPT) 13 [iU]/L (Normal) Range: 0-32 [...] Glucose, Serum 90 mg/dL (Normal) Range: 65-99 3-Xgy-283372:07 Bedside Glucose Comments: [facility] [address] [place] [address] BEDSIDE GLU 100 mg/dL (Normal) Range: 70-110 Comments: MANAGEMENT OF PATIENT CARE PER NURSING PROTOCOL 95-Fvd-293069:14 D-Dimer Quantitative (DVT/PE) Comments: Order Date: 08/30/17Order Info: 54316-1 - [facility] [address] [place], [address] D-DIMER QUANT 0.35 {FEU/ug/m} (Normal) Range: 0.27-0.49 Comments: NORMAL D-Dimer level (<0.50) indicates no DVT or PE. 93-Moa-256005:44 Blood Glucose , Office (00841) Blood Glucose , 129 (Normal) Office :2 Request Problem Final report Comments: PATIENT NOT FASTINGPERFORMED BY: [facility]6370 [facility] [id number] Information: MOUTH SRC:MO 1 (Normal) Comments: Inappropriate source for anaerobic culture. A routine aerobic culturewas initiated. Contact the Microbiology Lab for further information. :2 Test Code Change SPRCS (Normal) Comments: PATIENT NOT FASTINGPERFORMED BY: [facility]6370 [facility] [id number] 1 Comments: Please note that the Microbiology test code was changed to reflectthe specimen source or transport received. :21 Upper Respiratory Culture Comments: PATIENT NOT FASTINGPERFORMED BY: [facility]6370 [facility] [id number] Result 1 RRF (Normal) Comments: Routine respiratory duyen Upper Respiratory Culture Final report (Normal) 13-Tou-909920:59 Metabolic Panel, Comprehensive Comments: Jul 2017; PATIENT NOT FASTINGPERFORMED BY: [facility]6370 [facility] [id number] (00940) ALT (SGPT) 16 [iU]/L (Normal) Range: 0-32 [...] Glucose, Serum 80 mg/dL (Normal) Range: 65-99 :59 MAGNESIUM (55675) Comments: today; PATIENT NOT FASTINGPERFORMED BY: [facility] Vpysho8419 [facility] [id number] Magnesium, Serum 2.2 mg/dL (Normal) Range: 1.6-2.3 :04 Blood Glucose , Office (73336) Blood Glucose , Office 111 (Normal) :04 HgA1C , Office (31843) HgA1C , Office 5.5 % (Normal) Range: 4.6 - 7.1 :03 CBC W/Diff, Automated Comments: [facility] [address] [place], [place], [id number] ; another doc Absolute Lymph 2.35 {X10_3/ul} [...] (Normal) Range: 4.4-11.0 :03 Protein+Creatinine Ratio,Urine Comments: [facility] [address] [place], [id number] PROT:CRE RATIO 403 {mg/g_CRE} (Abnormal) Range: 0-200 PROTEIN,UR.RAN. < 6.0 mg/dL (Normal) UR CREAT 13.90 mg/dL (Normal) :03 PTH,INTACT Comments: [facility] [address] [place], [address] PTH,Intact 34 pg/mL (Normal) Range: 14-72 :03 Renal Profile Comments: [facility] [address] [place], [address] CO2 26.0 mmol/L (Normal) Range: 21.0-32.0 CL [...] 7-18 GLU 109 mg/dL (Normal) Range: 70-110 97-Fxy-55106:03 Vitamin D 1,25-Dihydroxy Comments: [facility] (refer to report for specific site)refer to report for address and phone number VITD 54248 48.5 pg/mL (Normal) Range: 19.9-79.3 Comments: Performed at: - [address] [id number] Director: Navdeep Medley MD, Phone: [phone] 01-Cys-796063:06 Metabolic Panel, Comprehensive Comments: PATIENT NOT FASTINGPERFORMED BY: [facility]6370 [facility] [id number] (84698) ALT (SGPT) 11 [iU]/L (Normal) Range: 0-32 [...] Glucose, Serum 78 mg/dL (Normal) Range: 65-99 30-Vaj-093373:06 CBC, Platelets & Auto Diff Comments: PATIENT NOT FASTINGPERFORMED BY: [facility] Tgzxyo9928 [facility] [id number] (06831) Immature Grans (Abs) 0.0 {x10E3/uL} (Normal) Range: [...] 3.77-5.28 WBC 9.3 {x10E3/uL} (Normal) Range: 3.4-10.8 90-Uur-217413:06 TSH (11714) Comments: PATIENT NOT FASTINGPERFORMED BY: [employer] Pyplqs7176 [facility] [id number] TSH 3.080 {uIU/mL} (Normal) Range: 0.450-4.500 18-Jvr-188787:56 HgA1C , Office (99750) HgA1C , Office 5.5 % (Normal) Range: 4.6 - 7.1 49-Jze-001884:56 Blood Glucose , Office (15368) Blood Glucose , Office 81 (Normal) :09 LIPID PANEL (08429) Comments: PATIENT WAS FASTINGPERFORMED BY: [employer] Blubxf4864 [facility] [id number] LDL/HDL Ratio 2.0 {ratio_units} (Normal) Range: 0.0-3.2 [...] PANEL, COMPREHENSIVE Comments: PATIENT WAS FASTINGPERFORMED BY: [employer] Dlhisd6118 [facility] [id number] (09288) ALT (SGPT) 15 [iU]/L (Normal) Range: 0-32 [...] Glucose, Serum 104 mg/dL (Abnormal) Range: 65-99 09-Jod-36933:04 METABOLIC PANEL, COMPREHENSIVE Comments: fax to Dr Henry; PATIENT WAS FASTINGPERFORMED BY: [facility]Co[facility] CenterSlileh4084 [facility] [id number] (93322) ALT (SGPT) 16 [iU]/L (Normal) Range: 0-32 [...] CREATININE RATIO Comments: PATIENT WAS FASTINGPERFORMED BY: [employer] [id number] (52610) AND (21352) Microalb/Creat Ratio <6.3 {mg/g_creat} (Normal) Range: 0.0-30.0 Microalbumin, Urine <3.0 ug/mL (Normal) Creatinine, Urine 48.0 mg/dL (Normal) :04 HGB A1C (77590) Comments: PATIENT WAS FASTINGPERFORMED BY: [employer] [id number] Hemoglobin A1c 5.7 % (Abnormal) Range: 4.8-5.6 Comments: . Pre-diabetes: 5.7 - 6.4 Diabetes: >6.4 Glycemic control for adults with diabetes: <7.0 :04 CALCIFEDIOL (30051) Comments: PATIENT WAS FASTINGPERFORMED BY: [employer]in [place] [id number] Vitamin D, 25-Hydroxy 24.2 ng/mL (Abnormal) Range: 30.0-100.0 Comments: Vitamin D deficiency has been defined by the [place] ofMedicine and an Endocrine Society practice guideline as alevel of serum 25-OH vitamin D less than 20 ng/mL (1,2).The Endocrine Society went on to further define vitamin Dinsufficiency as a level between 21 and 29 ng/mL (2).1. IOM ([place] of Medicine). 2010. Dietary reference intakes for calcium and D. [place]: The National AcademSysorex Press.2. Azael MF, Leslee NC, Hillary PHILLIPS, et al. Evaluation, treatment, and prevention of vitamin D deficiency: an Endocrine Society clinical practice guideline. JCEM. 2010; 96(7):1911-30. :04 TSH (THYROID STIMULATING Comments: PATIENT WAS FASTINGPERFORMED BY: ISIGN Media6370 [facility] [id number] HORMONE) (12998) TSH 2.710 {uIU/mL} (Normal) Range: 0.450-4.500 :04 LIPID PANEL (77880) Comments: PATIENT WAS FASTINGPERFORMED BY: [employer] Media6370 [facility] [id number] LDL/HDL Ratio 1.7 {ratio_units} (Normal) Range: 0.0-3.2 [...] AUT DIFF Comments: PATIENT WAS FASTINGPERFORMED BY: [employer] Media6370 [facility] [id number] (70626) Immature Grans (Abs) 0.0 {x10E3/uL} (Normal) Range: [...] 3.77-5.28 WBC 6.1 {x10E3/uL} (Normal) Range: 3.4-10.8 08-Sep-20168:28 ANCA Comments: Is Patient Fasting? [facility] (refer [...] only by EIA. Ref. AM J Clin Pjmgsj4815;111:507-513. CYTOPLASMIC Ab <1:20 {titer} (Normal) :28 Anti-dsDNA Ab Comments: [facility] (refer to report for specific site)refer to report for address and phone number dsDNA AB <1 {IU/mL} (Normal) Range: 0-9 Comments: Negative <5 Equivocal 5 - 9 Positive >9Performed at: [facility] [id number] D irector: Junior Valera PhD, Phone: [phone] 08-Sep-20168:28 Complement C3 Comments: Is Patient Fasting? [facility] (refer to report for specific site)refer to report for address and phone number COMP C3 127 mg/dL (Normal) Range: 82-167 Comments: Performed at: [facility] [id number] Director: Junior Valera PhD, Phone: [phone] 08-Sep-20168:28 Complement C4 Comments: Is Patient Fasting? [facility] (refer to report for specific site)refer to report for address and phone number COMP C4 31 mg/dL (Normal) Range: 14-44 08-Sep-20168:28 LEOPOLDO + Protein Elect, Serum Comments: Is Patient Fasting? [facility] (refer to report for specific site)refer to report for address and phone number NOTE: Comment (Normal) Comments: Protein electrophoresis scan will follow via computer,mail, or brinell tester delivery. LEOPOLDO RESULT,S Comment: (Normal) Comments: Presence of monoclonal protein is unclear at this time. Suggest repeat in 3 to 6 months if clinically indicated. A/G RATIO 0.9 (Normal) Range: 0.7-1.7 GLOBULIN, TOTAL 3.8 g/dL (Normal) Range: 2.2-3.9 M-SPIKE (Normal) Comments: Not Observed GAMMA GLOBULIN 1.4 g/dL (Normal) Range: 0.4-1.8 BETA GLOBULIN 1.3 g/dL (Normal) Range: 0.7-1.3 HPQLA-4-XMYE 0.9 g/dL (Normal) Range: 0.4-1.0 UKWKE-9-XJVO 0.2 g/dL (Normal) Range: 0.0-0.4 ALBUMIN 3.4 g/dL (Normal) Range: 2.9-4.4 IMMUNOGL M 44 mg/dL (Normal) Range: 26-217 IMMUNO A 614 mg/dL (Abnormal) Range: 87-352 IMMUNO G 1353 mg/dL (Normal) Range: 700-1600 PROTEIN,TOTAL 7.2 g/dL (Normal) Range: 6.0-8.5 :28 Protein+Creatinine Ratio,Urine Comments: [facility] [address] [place], [address] PROT:CRE RATIO 128 {mg/g_CRE} (Normal) Range: 0-200 PROTEIN,UR.RAN. 6.5 mg/dL (Normal) UR CREAT 50.60 mg/dL (Normal) 81-Pim-585251:46 RENAL FUNCTION PANEL (39705) Comments: PATIENT NOT FASTINGPERFORMED BY: Front Up70 [facility] [id number] Phosphorus, Serum 4.2 mg/dL (Normal) Range: 2.5-4.5 :46 PT (PROTHROMBIN TIME) (29856) Comments: PATIENT NOT FASTINGPERFORMED BY: [employer] Energylin6370 [facility] [id number] Prothrombin Time 10.9 {sec} (Normal) Range: 9.1-12.0 INR 1.1 (Normal) Range: 0.8-1.2 Comments: Reference interval is for non-anticoagulated patients. . Suggested INR therapeutic range for Vitamin K anta gonist therapy: Standard Dose (moderate intensity therapeutic range): 2.0 - 3.0 Higher intensity therapeutic range 2.5 - 3.5 :46 METABOLIC PANEL, COMPREHENSIVE Comments: PATIENT NOT FASTINGPERFORMED BY: [employer] Energylin6370 [facility] [id number] (00550) ALT (SGPT) 24 [iU]/L (Normal) Range: 0-32 [...] Glucose, Serum 109 mg/dL (Abnormal) Range: 65-99 85-Btt-638134:46 CBC, PLATELETS & AUT DIFF Comments: PATIENT NOT FASTINGPERFORMED BY: [facility] Cxunyr5867 [facility] [id number] Information: [id number] (13653) Immature Grans (Abs) 0.0 {x10E3/uL} (Normal) Range: [...] (Normal) Range: 3.4-10.8 :23 HgA1C , Office (26183) HgA1C , Office 5.4 % (Normal) Range: 4.6 - 7.1 :16 CBC-Complete Blood Cnt No Diff Comments: [facility] Fesuseljky[address] [place], [address] MPV 8.8 fL (Normal) Range: [...] 4.4-11.0 :16 Serum Creatinine AND GFR Comments: [facility] [address] [place], [place], [id number] Estimated CRCL 27.75 ml/min (Normal) EST GFR - AA 37 mL/min (Abnormal) Comments: GFR Calc EST GFR 30 mL/min (Abnormal) Comments: Non- GFR Calc CREAT,SERUM 1.77 mg/dL (Abnormal) Range: 0.55-1.20 Comments: The validity of the calculated GFR AND GFRAA in patients over70 years has not been determined. Clinical correlation isessential. :15 Bedside Glucose Comments: [facility] LaboratoryPoint of [address]ar[address] [place] [address] BEDSIDE GLU 128 mg/dL (Abnormal) Range: 70-110 Comments: Policy and Physicians Orders followedMANAGEMENT OF PATIENT CARE PER NURSING PROTOCOL HYSTERECTOMY SPECIMEN See Note (Normal) Comments: [facility] [address] [place], [address] :39 Comments: Patient: ELIZABETH TORO : 1950 (65/F) Acct Num: [id number] Phys: Gm Brush MD Unit Num: [id number] Loc: MS1 [id number] Specimen: [id number] Received: 06/22/16 - 1337 Spec Ty pe: HYSTERECT TISSUES TISSUES: COMMENT Please make reference to previous specimen ([id number]) endometrial biopsy with diagnosis of consistent with atrophic endometrium and ([id number]) e ndometrium andpolyp, excision with diagnosis of [...] 1 cm in diameter. The endometrium is amn, glistening without any mass lesion and measures [...] measures 1.2 x 0.7 x 0.6 cm. Hand Tier sections are submitted inten cassettes as follows: [...] tube and ovary. / TONG:stormy 06/22/16 TC:1 CPT:96707 HEADER OPERATION: Lap robotic hysterectomy, BSO PRE-OP [...] <signature on file> :31 Bedside Glucose Comments: [facility] LaboratoryPoint of Cmyy[address] [place], [place] [address] BEDSIDE GLU 89 mg/dL (Normal) Range: 70-110 Comments: Physician Notified VBRBMANAGEMENT OF PATIENT CARE PER NURSING PROTOCOL :31 CBC-Complete Blood Cnt No Diff Comments: [facility] [address] [place], [address] MPV 10.1 fL (Normal) Range: [...] Range: 4.4-11.0 :31 Comprehensive Metabolic Profil Comments: [facility] [address] [place], [address] GAP 8 (Normal) Range: 5-15 [...] 7-18 GLU 87 mg/dL (Normal) Range: 70-110 74-Lfr-513476:31 Hemoglobin A1c Comments: [facility] [address] [place], [place], [address] HGB A1C 5.6 % (Normal) Range: 4.2-6.3 60-Ekz-450167:31 Partial Thromboplast Time Comments: [facility] [address] [place], [place], [address] PTT 27.7 s (Normal) Range: 24.1-36.2 :31 Prothrombin Time w/INR Comments: [facility] [address] [facility] [address] [place], [place], [address] INR 1.1 (Normal) PROTIME 13.4 s (Normal) Range: 11.7-14.9 65-Ohc-490213:31 Thyroid Stim Hormone (TSH) Comments: [facility] [address] [place], [address] TSH 2.46 {uIU/mL} (Normal) Range: 0.358-3.74 58-Wko-583413:31 Type AND Screen Comments: Surgery Date: 06/22/16Date of Last Transfusion (if within last 3 months) NHx of Preganancy in last 3 Months NoEver experience any problems with transfusion(s)? NHx of Transfusion in last 3 Months N Reason for Type AND Screen/Red Cells: SURGERYTime: 06SURGICAL PROCEDURE: [facility] [address] [place], [address] Antibody Screen NEGATIVE (Normal) BLOOD TYPE GEL A NEGATIVE (Normal) 44-Adp-255349:28 Comprehensive Metabolic Profil Comments: Order Date: 06/10/16Order Date: 06/10/16[facility] [address] [place], [address] GAP 5 (Normal) Range: 5-15 CO2 28.0 [...] 7-18 GLU 79 mg/dL (Normal) Range: 70-110 :58 CBC W/Diff, Automated Comments: [facility] [address] [place], [address] Absolute Lymph 2.98 {X10_3/ul} (Normal) Range: 0.83-4.51 [...] 4.2-5.4 WBC 8.7 K/mm3 (Normal) Range: 4.4-11.0 09-Ttp-928057:58 Comprehensive Metabolic Profil Comments: Is Patient Taking Vitamins or Folic Acid Supplements? [facility] [address] [place], [address] GAP 8 (Normal) Range: 5-15 CO2 29.0 [...] 7-18 GLU 95 mg/dL (Normal) Range: 70-110 40-Lrq-736721:58 Erythrocyte Sed Rate Comments: [facility] [address] [place], [address] SED RATE 25 mm/h (Normal) Range: 0-30 40-Rco-720909:58 Folates, (Folic Acid) Comments: Is Patient Taking Vitamins or Folic Acid Supplements? [facility] [address] [place], [place], [address] FOLATES 9.60 ng/mL (Normal) Range: 3.1-17.5 86-Doi-805485:58 Thyroid Stim Hormone (TSH) Comments: Is Patient Taking Vitamins or Folic Acid Supplements? [facility] [address] [place], [address] TSH 2.58 {uIU/mL} (Normal) Range: 0.358-3.74 47-Lih-270871:58 Vitamin B12 543 pg/mL (Normal) Comments: [facility] [address] [place], [address] Range: 211-911 05-Gxw-986400:07 Urinalysis, Office (93147) UA - LEUKOCYTE ESTERASE Trace (Normal) UA - NITRITE Negative (Normal) URINE UROBILINGN SHARIFA TIMED Normal mg/dL (Normal) UA - PROTEIN Negative mg/dL (Normal) UA - PH 6.5 (Normal) UA - BLOOD Hemolyzed Trace (Normal) UA - SPECIFIC GRAVITY 1.005 (Normal) UA - KETONES Negative mg/dL (Normal) UA - BILIRUBIN Negative (Normal) UA - GLUCOSE Negative (Normal) 15-Kwy-024018:04 URINE VERÓNICA CULTURE-SHARIFA COL Comments: PATIENT NOT FASTINGPERFORMED BY: [facility] Zuglwr1925 [facility] [id number] Information: SRC:[employer] [id number] COUNT (25900) Antimicrobial MIHEAD (Normal) Comments: S = Susceptible; [...] (Abnormal) Urine Final report Culture,Comprehensive (Abnormal) EGD (PICK SITE) See Note (Normal) Comments: [facility] [address] [place], [address]:04 Comments: Patient: ELIZABETH TORO : 1950 (65/F) Acct Num: [id number] Phys: JonnyJunior ruiz Unit Num: [id number] Loc: LABSPEC Specimen: [id number] Received: 04/21/161637 Spec Type: EGD BIOPSY TISSUES [...] in one cassette. / SJ:stormy 04/22/16 TC:3 CPT:71309 HEADER OPERATION: EGD with biopsy PRE-OP DIAGNOSIS: Dysphagia TISSUE SUBMITTED: Esophageal biopsy, R/O EE MICROSCOPIC DESCRIP TION Slides are reviewed. MICROSCOPIC DIAGNOSIS Esophageal biopsy: Fragments of squamous epithelium with mild chronic inflammation. See comment. SJ:stormy 04/23/16 Signed Sivakumar Mallory 04/23/16 <signature on file> CERVICAL See Note (Normal) Comments: [facility] [address] [place], [address]:15 Comments: Patient: ELIZABETH TORO : 1950 (65/F) Acct Num: [id number] Phys: Gm Brush MD Unit Num: [id number] Loc: [facility] Specimen: [id number] Received: 04/13/161335 Spec Type: CER V TISSUES [...] one cassette. / AM: 04/13/16 TC:5 CPT: 29332 x 2 HEADER OPERATION: Hysteroscopy, diagnostic, D AND C PRE-OP DIAGNOSIS: Postmenopausal bleeding TISSUE SUBMITTED: A - Endocervical curettings, B - Endometrial curettings and polyp [facility] DESCRIPTION Slides are reviewed. MICROSCOPIC DIAGNOSIS A. Endocervix, curettings: Strips of benign superficial endocervix. Rare strips of benign superficial ectocervix. B. Endom etrium and polyp, excision: Benign endometrial polyp with simple cystic hyperplasia without atypia. Scant strips of benign superficial endometrium. AM: 04/14/16 Signed Ras [facility] 04/14/16 <signature on file> :04 Bedside Glucose Comments: [facility] LaboratoryPoint of Modi[address] [place], [place] [address] BEDSIDE GLU 98 mg/dL (Normal) Range: 70-110 Comments: No Action RequiredMANAGEMENT OF PATIENT CARE PER NURSING PROTOCOL :08 CBC-Complete Blood Cnt No Diff Comments: [facility] [address] [place], [address] MPV 9.4 fL (Normal) Range: [...] Range: 4.4-11.0 :08 Comprehensive Metabolic Profil Comments: [facility] [address] [place], [place], [address] GAP 8 (Normal) Range: 5-15 CO2 24.0 [...] Range: 70-110 :08 Partial Thromboplast Time Comments: [facility] [address] [place], [place], [address] PTT 29.8 s (Normal) Range: 24.1-36.2 :08 Prothrombin Time w/INR Comments: [facility] [address] [place], [place], [address] INR 1.1 (Normal) PROTIME 13.6 s (Normal) Range: 11.7-14.9 :08 Type AND Screen Comments: Surgery Date: 04/13/16Date of Last Transfusion (if within last 3 months) NHx of Preganancy in last 3 Months NoEver experience any problems with transfusion(s)? NHx of Transfusion in last 3 Months N Reason for Type AND Screen/Red Cells: SURGERYTime: 1015SURGICAL PROCEDURE: [facility] [address] [place], [address] Antibody Screen NEGATIVE (Normal) BLOOD TYPE GEL A NEGATIVE (Normal) ENDOMETRIAL See Note (Normal) Comments: [facility] [address] [place], [address] 6:00 BX/CURETTINGS Comments: Patient: ELIZABETH TORO : 1950 (65/F) Acct Num: [id number] Phys: Gonsalo [facility]CTOR,[facility] Num: [id number] Loc: LABSPEC Specimen: [id number] Received: 03/26/16 - 1600 Spec Type: ENDOM [...] in one cassette. / AM:stormy 03/27/16 TC:4 CPT:96386 HEADER OPERATION: Endometrial biopsy PRE-OP DIAGNOSIS: N95.0 TISSUE SUBMITTED: EMB MICROSCOPIC DESCRIPTION Slides are vicky boyer. MICROSCOPIC DIAGNOSIS Endometrial biopsy: Scant strips of benign endometrial epithelium, consistent with atrophic endometrium. Fragments of benign endocervical epithelium and mucous. SJ:stormy 03/31/16 Signed Sivakumar Mallory 03/31/16 <signature on file> 97-Puh-150562:00 PAP I-G w/ Reflex to HR Comments: CYTOLOGY INFORMATION:- CLINICAL INFORMATION: POSTMENOPAUSAL- DATE LMP/MENOPAUSE: MENOPAUSE- COLLECTION VIAL: Thin Prep Vial- RIVETER PNEUMATIC SOURCE: CERVICAL/ENDOCERVICAL- COLLECTION TECHNIQUE: BRUSH/ SPATULASpeci HPV men Comment: [id number] Comment: No. of containers..01 CYTYC Thin Prep VialLabCorp (refer to report for specific site)refer to report for address and phone number HPV RFLX Comment (Normal) Comments: The HPV DNA reflex criteria were not met with this specimenresult therefore, no HPV testing was performed.Performed at: [address] [id number] Director: Annamaria Menezes MD, Phone: [phone] PAPSMR Comment (Normal) Comments: The Pap smear [...] system. PERFORM Comment (Normal) Comments: Adeline Singleton, Signals Analyst (ASCP) ADEQ Comment (Normal) Comments: Satisfactory for evaluation. DIAGN Comment (Normal) Comments: NEGATIVE FOR INTRAEPITHELIAL LESION AND MALIGNANCY. 84-Ymh-13128:20 Urinalysis, Complete Comments: How was Urine Obtained? MICROBIOLOGY INSTRUCTOR TO SPECIFYTrihealth Mccull[facility] Hospital [address]cs[address] [facility] [place], [place], [address] MUCUS, URINE 0 SEEN {/hpf} (Normal) BACTERIA [...] (Normal) CLARITY Clear (Normal) COLOR Straw (Normal) 82-Mdp-992529:50 Basic Metabolic Profile (BMP) Comments: [facility] [address] [place], [place], [address] GAP 7 (Normal) Range: 5-15 CO2 26.0 [...] <126 mg/dLsuggests IMPAIRED HOMEOSTASIS per A.D.A. criteria. 54-Heo-836602:50 CBC W/Diff, Automated Comments: [facility] [address] [place], [place], [address] Absolute Lymph 3.53 {X10_3/ul} (Normal) Range: 0.83-4.51 [...] K/mm3 (Normal) Range: 4.4-11.0 :02 Rapid Flu (30627 x 2) Influenza A Ag negative (Normal) 6-Aek-970605:31 SJOGREN ANTIBOIDIES Comments: PATIENT NOT FASTINGPERFORMED BY: LabCoJersey Shore University Medical CenterWwwgty5172 [facility] [id number] Information: [id number] (ANTI-SS-A/ANTI-SS-B) (23210) Sjogren's Anti-SS-B <0.2 {AI} (Normal) Range: 0.0-0.9 Sjogren's Anti-SS-A <0.2 {AI} (Normal) Range: 0.0-0.9 :28 Rapid Strep Test, Office (25884) Rapid Strep Test, Office Negative (Normal) 9-Qtx-615850:37 Throat Culture (03635) Comments: PATIENT NOT FASTINGPERFORMED BY: [facility] Lqbbcx4764 L[facility] [id number] Information: SRC:BERNABE [id number] Result 1 BETAGB (Abnormal) Comments: Beta hemolytic [...] 2011) Upper Respiratory Culture Final report (Abnormal) 6-Etf-520489:45 Basic Metabolic Profile (BMP) Comments: 'TROP' Serial specimen #1, #2, #3, or #4: 1[facility] [address] [place], [address] GAP 9 (Normal) Range: 5-15 CO2 23.0 [...] 7-18 GLU 92 mg/dL (Normal) Range: 70-110 4-Ent-756987:45 CBC W/Diff, Automated Comments: [facility] [address] [place], [address] Absolute Lymph 2.03 {X10_3/ul} (Normal) [...] Serial specimen #1, #2, #3, or #4: [address] [place] [address] [address] [place], [address] TSH 1.50 {uIU/mL} (Normal) Range: 0.358-3.74 :45 Troponin-I Comments: 'TROP' Serial specimen #1, #2, #3, or #4: [address] [place] [address] [address] [place], [address] TROPONIN-I < 0.02 ng/mL (Normal) Comments: TROPONIN-I EXPECTED VALUES <0.05 NEGATIVE 0.06 - 0.59 AT RISK OF NE > OR = 0.60 SUGGEST NE :53 Pap IG (Image Comments: Source.............Cervical;EndocervicalNo. of containers..01 CYTYC Thin Prep VialPATIENT NOT FASTINGPERFORMED BY: =G [facility] Hghlbodtha996 [employer].rTrueSpanpalisades medical center [place] [id number] BY: WB L Guided) BrainCells120 Smarty AntsCommand InformationrTrueSpanpalisades medical center [place] [id number] Note: PAPSMR (Normal) Comments: The Pap smear [...] of partially obscuring exudate are present.Z00.00Adeline Singleton Signals Analyst (ASCP) :01 HgA1C , Office (50492) HgA1C , Office 5.9 % (Normal) Range: 4.6 - 7.1 87-Itg-14687:00 Blood Glucose , Office (60192) Blood Glucose , Office 126 (Normal) :53 Thin Prep Pap Comments: Source.............Cervical;EndocervicalNo. of containers..01 CYTYC Thin Prep VialPATIENT NOT FASTINGPERFORMED BY: =G [facility] Jlneopscmh646 Smarty AntszaCommand InformationrTrueSpanton [place] [id number] BY: WB L (06341) abC[address] [id number] Information: [id number] Age Gdln ACOG Testing AGE6 (Normal) Comments: <21 or >65 or no age provided :34 METABOLIC PANEL, Comments: PATIENT WAS FASTINGPERFORMED BY: EMIL Next[employer] PlatformCape [facility] [id number] Information: [id number] COMPREHENSIVE (06983) ALT (SGPT) 18 [iU]/L (Normal) Range: 0-32 [...] 83 mg/dL (Normal) Range: 65-99 :34 CALCIFIDIOL (48155) VIT D 25 Comments: PATIENT WAS FASTINGPERFORMED BY: [employer] Pet[employer] Technologyin [place] [id number] Vitamin D, 25-Hydroxy 59.6 ng/mL (Normal) Range: 30.0-100.0 Comments: Vitamin D deficiency has been defined by the [place] of[place] and an Endocrine Society practice guideline as alevel of serum 25-OH vitamin D less than 20 ng/mL (1,2).The Endocrine Society went on to further define vitamin Dinsufficiency as a level between 21 and 29 ng/mL (2).1. IOM ([place] of Medicine). 2010. Dietary reference intakes for calcium and D. [place]: The [employer].2. Azael RUTH, Leslee LEMON, Hillary PHILLIPS, et al. Evaluation, treatment, and prevention of vitamin D deficiency: an Endocrine Society clinical practice guideline. JCEM. 2010; 96(7):1911-30. :37 HgA1C , Office (34084) HgA1C , Office 6.1 % (Normal) Range: 4.6 - 7.1 :37 Blood Glucose , Office (37340) Blood Glucose , Office 107 (Normal) :27 TSH (THYROID STIMULATING Comments: PATIENT WAS FASTINGPERFORMED BY: Coda AutomotiveHarbor Oaks Hospital6370 [facility] [id number] HORMONE) (66113) TSH 2.480 {uIU/mL} (Normal) Range: 0.450-4.500 :27 CALCIFEDIOL (18493) Comments: PATIENT WAS FASTINGPERFORMED BY: LabCo[facility] Kfnxna6133 [facility] [id number] Vitamin D, 25-Hydroxy 16.7 ng/mL (Abnormal) Range: 30.0-100.0 Comments: Vitamin D deficiency has been defined by the [place] of[place] and an Endocrine Society practice guideline as alevel of serum 25-OH vitamin D less than 20 ng/mL (1,2).The Endocrine Society went on to further define vitamin Dinsufficiency as a level between 21 and 29 ng/mL (2).1. IOM ([place] of Medicine). 2010. Dietary reference intakes for calcium and D. [place]: The National AcademSysorex Press.2. Azael RUTH, Leslee LEMON, Hillary PHILLIPS, et al. Evaluation, treatment, and prevention of vitamin D deficiency: an Endocrine Society clinical practice guideline. JCEM. 2010; 96(7):1911-30. :27 LIPID PANEL (42165) Comments: PATIENT WAS FASTINGPERFORMED BY: NetcordiaJersey Shore University Medical CenterQdsjid6137 [facility] [id number] LDL/HDL Ratio 1.2 {ratio_units} (Normal) Range: 0.0-3.2 [...] PANEL, COMPREHENSIVE Comments: PATIENT WAS FASTINGPERFORMED BY: NetcordiaJersey Shore University Medical CenterIhniiw1955 [facility] [id number] (78510) ALT (SGPT) 19 [iU]/L (Normal) Range: 0-32 [...] Glucose, Serum 121 mg/dL (Abnormal) Range: 65-99 93-Wil-49148:27 CBC, PLATELETS & MANUAL Comments: PATIENT WAS FASTINGPERFORMED BY: LabCoJersey Shore University Medical CenterJlyhsi6643 [facility] [id number] Information: [id number] DIFF (49822) Immature Grans (Abs) 0.0 {x10E3/uL} (Normal) Range: [...] 3.77-5.28 WBC 7.0 {x10E3/uL} (Normal) Range: 3.4-10.8 52-Ubb-462359:31 CREATININE CLEARANCE Comments: PATIENT NOT FASTINGPERFORMED BY: [employer] [facility] [id number] Information: [id number] START @9AM FINISH 01/28/15@9 AM (29323) Creatinine Clearance 53 mL/min (Abnormal) Range: 88-128 Comments: The above range is based on 1.73 square meter average body surfacearea. Creatinine, Ur 24hr 1075.3 {mg/24_hr} (Normal) Range: 800.0-1800.0 Creatinine, Urine 39.1 mg/dL (Normal) Range: 15.0-278.0 eGFR If Africn Am 45 mL/min/1.73 (Abnormal) eGFR If NonAfricn Am 39 mL/min/1.73 (Abnormal) Creatinine, Serum 1.40 mg/dL (Abnormal) Range: 0.57-1.00 35-Ujk-076977:31 Total Protein,24 Hour Urine Comments: PATIENT NOT FASTINGPERFORMED BY: Front Up70 [facility] [id number] (59520) Prot,24hr calculated 357.5 {mg/24_hr} (Abnormal) Range: 30.0-150.0 Protein,Total,Urine 13.0 mg/dL (Normal) Range: 0.0-15.0 :28 HgA1C , Office (76119) HgA1C , Office 5.9 % (Normal) Range: 4.6 - 7.1 :28 Blood Glucose , Office (22906) Blood Glucose , Office 136 (Normal) :53 TSH (19463) Comments: PATIENT WAS FASTINGPERFORMED BY: [employer] Jdqalg4110 [facility] [id number] TSH 4.370 {uIU/mL} (Normal) Range: 0.450-4.500 :53 MICROALBUMIN: CREATININE RATIO Comments: PATIENT WAS FASTINGPERFORMED BY: Coda AutomotiveHarbor Oaks Hospital6370 [facility] [id number] (51171) AND (06891) Microalb/Creat Ratio 5.0 {mg/g_creat} (Normal) Range: 0.0-30.0 Microalbumin, Urine 4.5 ug/mL (Normal) Range: 0.0-17.0 Creatinine, Urine 90.5 mg/dL (Normal) Range: 15.0-278.0 :53 METABOLIC PANEL, COMPREHENSIVE Comments: PATIENT WAS FASTINGPERFORMED BY: [facility]cordiaJersey Shore University Medical CenterGblfnh4643 [facility] [id number] (68659) ALT (SGPT) 20 [iU]/L (Normal) Range: 0-32 [...] mg/dL (Abnormal) Range: 65-99 :53 LIPID PANEL (68536) Comments: PATIENT WAS FASTINGPERFORMED BY: [facility] Medical CenterFacteryJersey Shore University Medical CenterOdiiqy4500 [facility] [id number] LDL/HDL Ratio 1.4 {ratio_units} (Normal) Range: 0.0-3.2 [...] DIFF WBC Comments: PATIENT WAS FASTINGPERFORMED BY: NetcordiaJersey Shore University Medical CenterFxunst7600 [facility] [id number] Information: [id number] (85390) Immature Grans (Abs) 0.0 {x10E3/uL} (Normal) Range: [...] 7.8 {x10E3/uL} (Normal) Range: 3.4-10.8 :53 CALCIFIDIOL (21004) VIT D 25 Comments: PATIENT WAS FASTINGPERFORMED BY: [facility]6370 [facility] [id number] Vitamin D, 25-Hydroxy 22.5 ng/mL (Abnormal) Range: 30.0-100.0 Comments: Vitamin D deficiency has been defined by the [place] ofNationwide Children'S Hospitalcine and an Endocrine Society practice guideline as alevel of serum 25-OH vitamin D less than 20 ng/mL (1,2).The Endocrine Society went on to further define vitamin Dinsufficiency as a level between 21 and 29 ng/mL (2).1. IOM ([place] of Medicine). 2010. Dietary reference intakes for calcium and D. [place]: The National Academies Press.2. Azael MF, Leslee NC, Hillary PHILLIPS, et al. Evaluation, treatment, and prevention of vitamin D deficiency: an Endocrine Society clinical practice guideline. JCEM. 2010; 96(7):1911-30. :22 HgA1C , Office (14782) HgA1C , Office 6.0 % (Normal) Range: 4.6 - 7.1 :22 Blood Glucose , Office (82421) Blood Glucose , Office 132 (Normal) :27 Blood Glucose , Office (69842) Blood Glucose , Office 114 (Normal) 08-Rmn-57249:27 HgA1C , Office (60933) HgA1C , Office 5.9 % (Normal) Range: 4.6 - 7.1 03-May-20142:00 Basic Metabolic Panel (8) Comments: PATIENT NOT FASTINGPERFORMED BY: [place] 9133570 [facility] [id number] BY: [address] [id number] Calcium, Serum 9.8 mg/dL (Normal) Range: 8.6-10.2 [...] 287 {mOsmol/kg} Comments: PATIENT NOT FASTINGPERFORMED BY: [place] 9133570 [facility] [id number] BY: [address] [id number] 00 (Normal) Range: 280-301 : Osmolality, Urine 259 {mOsmol/kg} Comments: PATIENT NOT FASTINGPERFORMED BY: Net[place]ia[address] [id number] BY: [address] [id number] 00 (Normal) Comments: 24 hr : 300 - 900 Random: 50 - 1400 After 12hr fluid restriction: >850 : Sodium, Urine 11 mmol/L (Normal) Comments: PATIENT NOT FASTINGPERFORMED BY: LabCoJersey Shore University Medical CenterHsviim6829 [facility] [id number] BY: Lab[address] [id number] 00 4-Etc-433485:06 Metabolic Panel, Basic Comments: PATIENT NOT FASTINGPERFORMED BY: LabHarbor Oaks Hospital6370 [facility] [id number] Information: [id number] (53375) Calcium, Serum 9.9 mg/dL (Normal) Range: 8.6-10.2 [...] Glucose, Serum 108 mg/dL (Abnormal) Range: 65-99 98-Scf-285754:34 CBCD Comments: pt has apt with db [...] 4.2-5.4 WBC 9.6 K/mm3 (Normal) Range: 4.4-11.0 40-All-908555:34 CMP Comments: 'TROP' Serial specimen #1, #2, [...] 7-18 GLU 88 mg/dL (Normal) Range: 70-110 97-Lzw-745120:34 DDIMQ 0.29 {FEU/ug/m} (Normal) Range: 0.27-0.49 Comments: NORMAL D-Dimer level (<0.50) indicates no DVT or PE. :34 TROP < 0.02 ng/mL (Normal) Comments: 'TROP' Serial specimen #1, #2, #3, or #4: 1 Comments: TROPONIN-I EXPECTED VALUES <0.05 NEGATIVE0.06 - 0.59 AT RISK OF NE> OR = 0.60 SUGGEST NE :34 TSH 2.32 {uIU/mL} (Normal) Comments: 'TROP' Serial specimen #1, #2, #3, or #4: 1 Range: 0.358-3.74 01-May-20140:00 Microscopic Examination Comments: PATIENT WAS FASTINGPERFORMED BY: [employer]Dublin [place] [id number] Bacteria Few (Normal) Mucus Threads Present (Normal) Epithelial Cells (non renal) 0-10 {/hpf} (Normal) Range: 0 - 10 RBC 0-2 {/hpf} (Normal) Range: 0 - 2 WBC 11-30 {/hpf} (Abnormal) Range: 0 - 5 :15 TSH (06379) Comments: PATIENT WAS FASTINGPERFORMED BY: [employer] Odmthd2301 Monk RoadDublin [place] [id number] TSH 3.310 {uIU/mL} (Normal) Range: 0.450-4.500 72-Zmf-521656:15 CALCIFIDIOL (74814) VIT D 25 Comments: PATIENT WAS FASTINGPERFORMED BY: [employer] [facility] Npawff8[address] RoadDublin [place] [id number] Vitamin D, 25-Hydroxy 35.7 ng/mL (Normal) Range: 30.0-100.0 Comments: Vitamin D deficiency has been defined by the [place] of[place] and an Endocrine Society practice guideline as alevel of serum 25-OH vitamin D less than 20 ng/mL (1,2).The Endocrine Society went on to further define vitamin Dinsufficiency as a level between 21 and 29 ng/mL (2).1. IOM ([place] of Medicine). 2010. Dietary reference intakes for calcium and D. [place]: The National Academies Press.2. Azael MF, Leslee LEMON, Hillary PHILLIPS, et al. Evaluation, treatment, and prevention of vitamin D deficiency: an Endocrine Society clinical practice guideline. JCEM. 2010; 96(7):1911-30. 47-Iqu-908734:15 URINALYSIS, W/ MICRO (93071) Comments: PATIENT WAS FASTINGPERFORMED BY: [employer] Up70 [facility] [id number] Microscopic Examination See below: (Normal) Nitrite, Urine Positive (Abnormal) Bilirubin Negative (Normal) Urobilinogen,Semi-Qn 0.2 mg/dL (Normal) Range: 0.0-1.9 Ketones Negative (Normal) Occult Blood Negative (Normal) Glucose Negative (Normal) Protein Negative (Normal) Appearance Clear (Normal) WBC Esterase 2+ (Abnormal) pH 6.5 (Normal) Range: 5.0-7.5 Urine-Color Yellow (Normal) Specific Alpha 1.015 (Normal) Range: 1.005-1.030 71-Ikv-420510:15 METABOLIC PANEL, COMPREHENSIVE Comments: PATIENT WAS FASTINGPERFORMED BY: Melty Freyne2827 [facility] [id number] (74635) ALT (SGPT) 19 [iU]/L (Normal) Range: 0-32 [...] Glucose, Serum 118 mg/dL (Abnormal) Range: 65-99 22-Weo-556470:15 LIPID PANEL (21548) Comments: PATIENT WAS FASTINGPERFORMED BY: [employer] [facility] [id number] LDL/HDL Ratio 1.7 {ratio_units} (Normal) Range: 0.0-3.2 LDL Cholesterol Calc 90 mg/dL (Normal) Range: 0-99 VLDL Cholesterol Hillary 33 mg/dL (Normal) Range: 5-40 HDL Cholesterol 53 mg/dL (Normal) Comments: According to ATP-III Guidelines, HDL-C >59 mg/dL is considered anegative risk factor for CHD. Triglycerides 166 mg/dL (Abnormal) Range: 0-149 Cholesterol, Total 176 mg/dL (Normal) Range: 100-199 81-Ffw-318392:15 CBC WITH MANUAL DIFF Comments: PATIENT WAS FASTINGPERFORMED BY: [employer] Up70 [facility] [id number] Information: [id number] (27035) Immature Grans (Abs) 0.0 {x10E3/uL} (Normal) Range: [...] 3.77-5.28 WBC 7.0 {x10E3/uL} (Normal) Range: 3.4-10.8 34-Nia-219525:20 Blood Glucose , Office (93858) Blood Glucose , Office 102 (Normal) 95-Flk-786176:20 HgA1C , Office (95749) HgA1C , Office 6.0 % (Normal) Range: 4.6 - 7.1 5-Gpi-646237:27 URINE VERÓNICA CULTURE-IDENTIFICATN Comments: PATIENT NOT FASTINGPERFORMED BY: Melty Dhwjfx4365 [facility] [id number] Information: [id number] (59780) Result 1 NG36 (Normal) Comments: No growth in 36 - 48 hours. Urine Culture,Comprehensive Final report (Normal) 9-Qup-194646:03 URINALYSIS (14190) URINALYSIS neg for all (Normal) 02-Lhx-77293:31 URINE VERÓNICA CULTURE-SHARIFA COL Comments: PATIENT NOT FASTINGPERFORMED BY: Melty Pazjpr7914 [facility] [id number] Information: SRC:UR [id number] COUNT (02375) Antimicrobial MIHEAD (Normal) Comments: S = Susceptible; [...] mL (Normal) Urine Final report Culture,Comprehensive (Normal) 72-Pbn-59708:26 Urinalysis, Office (04881) UA - LEUKOCYTE ESTERASE Moderate (Normal) UA - NITRITE Negative (Normal) URINE UROBILINGN SHARIFA TIMED Normal mg/dL (Normal) UA - PROTEIN Negative mg/dL (Normal) UA - PH 5 (Abnormal) UA - BLOOD Hemolyzed Small (Normal) UA - SPECIFIC GRAVITY 1.025 (Normal) UA - KETONES Negative mg/dL (Normal) UA - BILIRUBIN Negative (Normal) UA - GLUCOSE Negative (Normal) :52 LIPID PANEL (05838) Comments: PATIENT WAS FASTINGPERFORMED BY: [employer]6370 [facility] [id number] Information: [id number] LDL/HDL Ratio 2.1 {ratio_units} (Normal) Range: 0.0-3.2 LDL Cholesterol Calc 111 mg/dL (Abnormal) Range: 0-99 VLDL Cholesterol Hillary 31 mg/dL (Normal) Range: 5-40 HDL Cholesterol 53 mg/dL (Normal) Comments: According to ATP-III Guidelines, HDL-C >59 mg/dL is considered anegative risk factor for CHD. Triglycerides 156 mg/dL (Abnormal) Range: 0-149 Cholesterol, Total 195 mg/dL (Normal) Range: 100-199 :52 HEPATIC FUNCTION PANEL (49121) Comments: PATIENT WAS FASTINGPERFORMED BY: [employer]70 [facility] [id number] ALT (SGPT) 17 [iU]/L (Normal) Range: 0-32 AST (SGOT) 23 [iU]/L (Normal) Range: 0-40 Alkaline Phosphatase, S 57 [iU]/L (Normal) Range: 39-117 Bilirubin, Direct 0.08 mg/dL (Normal) Range: 0.00-0.40 Bilirubin, Total 0.3 mg/dL (Normal) Range: 0.0-1.2 Albumin, Serum 4.3 g/dL (Normal) Range: 3.6-4.8 Protein, Total, Serum 7.2 g/dL (Normal) Range: 6.0-8.5 :52 CALCIFEDIOL (96800) Comments: PATIENT WAS FASTINGPERFORMED BY: NetcordiaJersey Shore University Medical CenterLopckh4703 [facility] [id number] Vitamin D, 25-Hydroxy 13.8 ng/mL (Abnormal) Range: 30.0-100.0 Comments: Vitamin D deficiency has been defined by the [place] of[place]icine and an Endocrine Society practice guideline as alevel of serum 25-OH vitamin D less than 20 ng/mL (1,2).The Endocrine Society went on to further define vitamin Dinsufficiency as a level between 21 and 29 ng/mL (2).1. IOM ([place] of Medicine). 2010. Dietary reference intakes for calcium and D. [place]: The National Academies Press.2. Azael MF, Leslee NC, Hillary PHILLIPS, et al. Evaluation, treatment, and prevention of vitamin D deficiency: an Endocrine Society clinical practice guideline. JCEM. 2010; 96(7):1911-30. 34-Stl-337687:38 Blood Glucose , Office (58150) Blood Glucose , Office 114 (Normal) 78-Kjx-457423:38 HgA1C , Office (73473) HgA1C , Office 5.8 % (Normal) Range: 4.6 - 7.1 69-Qfe-371134:23 Urinalysis, Office (64947) UA - BILIRUBIN Negative (Normal) UA - BLOOD Hemolyzed Trace (Normal) UA - GLUCOSE Negative (Normal) UA - KETONES Negative mg/dL (Normal) UA - LEUKOCYTE ESTERASE Small (Normal) UA - NITRITE Negative (Normal) UA - PH 5.0 (Normal) UA - PROTEIN Negative mg/dL (Normal) UA - SPECIFIC GRAVITY 1.025 (Normal) URINE UROBILINGN SHARIFA TIMED Normal mg/dL (Normal) 40-Ftu-605830:50 Metabolic Panel, Basic Comments: PATIENT NOT FASTINGPERFORMED BY: LabCoJersey Shore University Medical CenterMqiwgn7567 [facility] [id number] Information: [id number] (14654) Calcium, Serum 9.9 mg/dL (Normal) Range: 8.6-10.2 [...] Glucose, Serum 84 mg/dL (Normal) Range: 65-99 69-Zyj-882487:39 BRAIN WITHOUT CONTRAST Radiology Report See Note [...] Sweeney M.D.July 12, 2013 at 4:19:02 PM [id number] Signed PV/PV If you are the referring physician and would like to consult with theradiologist who provided this interpretation, please contact Petrona molina M.D. at [phone]. If this radiologist is unavailable, youwillbe directed to another radiologist to assist. If you are a patient with a question regarding this report, pleasecontactyour referring physician directly. Professional Interpretation Provided By: [employer], Phone , These documents contain legally protected [...] 07/12/13 1622 Sign by: Petrona Meek MD 5-Axn-384245:39 CRE GFRAA 45 mL/min (Abnormal) GFR 37 mL/min (Abnormal) CREAT 1.5 mg/dL (Abnormal) Range: 0.6-1.0 06-Jul-20138:30 CRECLR Comments: START 07-05-13 @ 830AMEND 07-06-13 @ 830AM CCREU 26.9 mg/dL (Normal) GFR 37 mL/min (Abnormal) tCRECL 37 ml/min (Abnormal) Range: 100-200 CCTV 3000 mL (Normal) tCREAT 1.5 mg/dL (Abnormal) Range: 0.6-1.0 CCC 24.0 {HOURS} (Normal) 06-Jul-20138:30 PROU Comments: START 07-05-13 @ 830AMEND 07-06-13 @ 830AM uPRO24 180 {MG/24HR} (Abnormal) uPRO < 6.0 mg/dL (Normal) Comments: Protein in this specimen is below the assay range;therefore, the calculation for 24 Hour Protein can not bedetermined. UPTV 3000 mL (Normal) UPCT 24.0 {HOURS} (Normal) 6-Tik-459794:39 Metabolic Panel, Basic Comments: recheck in one week; PATIENT NOT FASTINGPERFORMED BY: LaComunityEC[facility] [id number] Information: [id number] (73950) Calcium, Serum 9.7 mg/dL (Normal) Range: 8.6-10.2 [...] Glucose, Serum 109 mg/dL (Abnormal) Range: 65-99 65-Osw-06942:50 Metabolic Panel, Basic Comments: PATIENT NOT FASTINGPERFORMED BY: Front Up70 [facility] PixelsCape Fear [facility] [id number] Information: [id number] (31797) Calcium, Serum 9.5 mg/dL (Normal) Range: 8.6-10.2 [...] (Abnormal) Range: 65-99 :29 HgA1C , Office (30736) HgA1C , Office 5.7 % (Normal) Range: 4.6 - 7.1 54-Ceq-024046:14 TSH (24228) Comments: PATIENT NOT FASTINGPERFORMED BY: LabCoJersey Shore University Medical CenterCxyuns1514 [facility] [id number] TSH 2.850 {uIU/mL} (Normal) Range: 0.450-4.500 31-Llr-268965:14 CBC, Platelets & Auto Comments: PATIENT NOT FASTINGPERFORMED BY: LabCo[address] [id number] Information: [id number] Diff (93024) Immature Grans (Abs) 0.0 {x10E3/uL} (Normal) Range: [...] 3.77-5.28 WBC 7.5 {x10E3/uL} (Normal) Range: 4.0-10.5 18-Tfn-199040:14 Metabolic Panel, Comprehensive Comments: PATIENT NOT FASTINGPERFORMED BY: [facility] Qiayth3013 [facility] [id number] (34643) ALT (SGPT) 19 [iU]/L (Normal) Range: 0-32 [...] Glucose, Serum 105 mg/dL (Abnormal) Range: 65-99 98-Vxj-310209:06 URINE VERÓNICA CULTURE-SHARIFA COL Comments: PATIENT NOT FASTINGPERFORMED BY: [employer] [id number] Information: SRC:UR ADD [id number] COUNT (88194) Antimicrobial MIHEAD (Normal) Comments: S = Susceptible; [...] mL (Normal) Urine Final report Culture,Comprehensive (Normal) 88-Qkr-853407:09 Urinalysis, Office (98745) UA - BILIRUBIN Negative (Normal) UA - BLOOD Hemolyzed Moderate (Normal) UA - GLUCOSE Negative (Normal) UA - KETONES Negative mg/dL (Normal) UA - LEUKOCYTE ESTERASE Small (Normal) UA - NITRITE Negative (Normal) UA - PH 6.0 (Normal) UA - PROTEIN Negative mg/dL (Normal) UA - SPECIFIC GRAVITY 1.005 (Normal) URINE UROBILINGN SHARIFA TIMED 2 mg/dL (Normal) 7-Awu-388558:04 Renal function Panel Comments: PATIENT NOT FASTINGPERFORMED BY: [employer] [id number] Information: [id number] (04623) Albumin, Serum 4.1 g/dL (Normal) Range: 3.6-4.8 [...] Glucose, Serum 110 mg/dL (Abnormal) Range: 65-99 99-Ifr-677536:22 CALCIFEDIOL (77122) Comments: PATIENT NOT FASTINGPERFORMED BY: [employer]IL [facility] Sgzayq1014 [facility] [id number] Vitamin D, 25-Hydroxy 16.7 ng/mL (Abnormal) Range: 30.0-100.0 Comments: Vitamin D deficiency has been defined by the [place] ofNationwide Children'S Hospitalcine and an Endocrine Society practice guideline as alevel of serum 25-OH vitamin D less than 20 ng/mL (1,2).The Endocrine Society went on to further define vitamin Dinsufficiency as a level between 21 and 29 ng/mL (2).1. IOM ([place] of Medicine). 2010. Dietary reference intakes for calcium and D. [place]: The National Academies Press.2. Azael MF, Leslee NC, Hillary PHILLIPS, et al. Evaluation, treatment, and prevention of vitamin D deficiency: an Endocrine Society clinical practice guideline. JCEM. 2010; 96(7):1911-30. 50-Rwx-556373:22 MAGNESIUM (78098) Comments: PATIENT NOT FASTINGPERFORMED BY: [facility]6370 [facility] [id number] Magnesium, Serum 2.3 mg/dL (Normal) Range: 1.6-2.6 :22 T4, FREE (THYROXINE) (02189) Comments: PATIENT NOT FASTINGPERFORMED BY: [facility]6370 [facility] [id number] T4,Free(Direct) 1.50 ng/dL (Normal) Range: 0.82-1.77 :22 T3, FREE (TRIDOTHYRONINE) (74269) Comments: PATIENT NOT FASTINGPERFORMED BY: [facility]6370 [facility] [id number] Triiodothyronine,Free,Serum 2.6 pg/mL (Normal) Range: 2.0-4.4 :22 TSH (47362) Comments: PATIENT NOT FASTINGPERFORMED BY: LabHarbor [facility]aks Hospital6370 [facility] [id number] TSH 1.920 {uIU/mL} (Normal) Range: 0.450-4.500 :22 CBC, Platelets & Auto Comments: PATIENT NOT FASTINGPERFORMED BY: [facility]6370 [facility] [id number] Information: [id number] Diff (37872) Immature Grans (Abs) 0.0 {x10E3/uL} (Normal) Range: [...] 3.77-5.28 WBC 8.5 {x10E3/uL} (Normal) Range: 4.0-10.5 53-Ujy-611040:22 Metabolic Panel, Comprehensive Comments: PATIENT NOT FASTINGPERFORMED BY: [facility] Aoodtl1497 [facility] [id number] (45201) ALT (SGPT) 21 [iU]/L (Normal) Range: 0-32 [...] Glucose, Serum 97 mg/dL (Normal) Range: 65-99 5-Oyn-861298:20 METABOLIC PANEL, COMPREHENSIVE Comments: PATIENT WAS FASTINGPERFORMED BY: LabCoJersey Shore University Medical CenterUwkjgm3204 [facility] [id number] (66359) ALT (SGPT) 19 [iU]/L (Normal) Range: 0-32 [...] Glucose, Serum 102 mg/dL (Abnormal) Range: 65-99 6-Pjd-900291:20 CBC WITH MANUAL DIFF Comments: PATIENT WAS FASTINGPERFORMED BY: LabCoAlbuquerque Indian Dental ClinicNtcwte0848 [facility] [id number] Information: [id number] (36361) Immature Grans (Abs) 0.0 {x10E3/uL} (Normal) Range: [...] 3.77-5.28 WBC 7.4 {x10E3/uL} (Normal) Range: 3.4-10.8 4-Yjw-955736:20 LIPID PANEL (11413) Comments: PATIENT WAS FASTINGPERFORMED BY: [facility] Tipuac4969 [facility] [id number] LDL/HDL Ratio 2.0 {ratio_units} (Normal) Range: 0.0-3.2 LDL Cholesterol Calc 109 mg/dL (Abnormal) Range: 0-99 VLDL Cholesterol Hillary 35 mg/dL (Normal) Range: 5-40 HDL Cholesterol 54 mg/dL (Normal) Comments: According to ATP-III Guidelines, HDL-C >59 mg/dL is considered anegative risk factor for CHD. Triglycerides 175 mg/dL (Abnormal) Range: 0-149 Cholesterol, Total 198 mg/dL (Normal) Range: 100-199 2-Dyy-751401:20 TSH (86708) Comments: PATIENT WAS FASTINGPERFORMED BY: LabCoJersey Shore University Medical CenterAckfjo4513 [facility] [id number] TSH 2.720 {uIU/mL} (Normal) Range: 0.450-4.500 06-Vbt-433704:22 HgA1C , Office (01715) HgA1C , Office 6.0 % (Normal) Range: 4.6 - 7.1 72-Zei-444519:22 Blood Glucose , Office (62551) Blood Glucose , Office 249 (Normal) Comments: has eaten in last 2h 94-Ank-584536:20 CHEST, PA AND LATERAL Radiology Report See [...] Signed:Anibal Lan M.D.November 022012 at 8:14:34 AM [id number] Signed GP/GP If you are the referring physician and would like to consult with theradiologist who provided this interpretation, please contact Eliecer Bui M.D. at [phone]. If this radiologist is unavailable, youwill be directed to another radiologist to assist. If you are a patient with a question regarding this report, pleasecontactyour referring physician directly. Professional Interpretation Provided By: [employer], Phone , These documents contain legally protected [...] on 11/22/12817 Sign by: Anibal Lan MD 30-Qls-25796:19 VERÓNICA CULTURE-OTHER (66315) Comments: PATIENT NOT FASTINGPERFORMED BY: Front Up70 [facility] PixelsC[facility] [id number] Information: SRC:THRT [id number] Result 1 RRF (Normal) Comments: Routine respiratory duyen Upper Respiratory Culture Final report (Normal) 38-Oiu-184628:33 Rapid Strep Test, Office (12023) Rapid Strep Test, Office Negative (Normal) 3-Zpr-525796:50 Celiac Disease Comprehensive Comments: PERFORMED BY: [employer] [id number] Immunoglobulin A, Qn, 364 mg/dL (Normal) Range: [...] Potassium, Serum 4.0 mmol/L Comments: PERFORMED BY: LabCoJersey Shore University Medical CenterMcfttg3890 [facility] [id number] 4:50 (Normal) Range: 3.5-5.2 4-Pzd-578779:30 CBCMD ANC 3.7 3/uL (Normal) Range: 2.0-7.7 [...] 4.2-5.4 WBC 7.0 {k/mm3} (Normal) Range: 4.4-11.0 4-Yvv-163895:30 CMP GAP 11 (Normal) Range: 5-15 CO2 [...] 7-18 GLU 93 mg/dL (Normal) Range: 70-110 5-Mwq-710522:30 LIPID LDL 108 mg/dL (Normal) Range: 0-130 [...] Very High > or = 500 mg/dL 8-Hvo-197632:30 MIACRE MIALB 5.8 mg/L (Normal) tMICROCREAT 9.5 {mg/g_CRE} (Normal) CREU 60.7 mg/dL (Normal) 1-Emh-393478:30 TSH 0.75 {uIU/mL} (Normal) Range: 0.358-3.74 :54 HgA1C , Office (82844) HgA1C , Office 5.5 % (Normal) Range: 4.6 - 7.1 :54 Blood Glucose , Office (30377) Blood Glucose , Office 116 (Normal) 93-Glu-529139:26 URINE VERÓNICA CULTURE-SHARIFA COL Comments: PATIENT NOT FASTINGPERFORMED BY: LabCoJersey Shore University Medical CenterGgdtzn0880 [facility] [id number] Information: SRC:UR [id number] COUNT (05424) Result 1 MUG (Normal) Comments: Mixed urogenital flora50,000-100,000 colony forming units per mL Urine Final report (Normal) Culture,Comprehensive 91-Iiw-731734:46 Urinalysis, Office (82658) UA - BILIRUBIN Small (Normal) UA - BLOOD Hemolyzed Small (Normal) UA - GLUCOSE Negative (Normal) UA - KETONES Small mg/dL (Normal) UA - LEUKOCYTE ESTERASE Moderate (Normal) UA - NITRITE Negative (Normal) UA - PH 6.0 (Normal) UA - PROTEIN Trace mg/dL (Normal) UA - SPECIFIC GRAVITY 1.025 (Normal) URINE UROBILINGN SHARIFA TIMED Normal mg/dL (Normal) 53-Fzg-878095:55 CHEST, PA AND LATERAL Radiology Report See [...] radiologist regarding this report, please call our 27V6emsjlgc line @ Dictated on 1518 by Wilma Lan MDeleTranscribed on 11/23/111610 by ITS IMPORTSign by Anibal Lan MD on 11/23/111610 Sign by: Anibal Lan MD :51 Urinalysis, Office (26757) UA - BILIRUBIN Negative (Normal) UA - BLOOD Hemolyzed Small (Normal) UA - GLUCOSE Negative (Normal) UA - KETONES Negative mg/dL (Normal) UA - LEUKOCYTE ESTERASE Large (Normal) UA - NITRITE Negative (Normal) UA - PH 7.0 (Normal) UA - PROTEIN Negative mg/dL (Normal) UA - SPECIFIC GRAVITY 1.020 (Normal) URINE UROBILINGN SHARIFA TIMED 2 mg/dL (Normal) :51 HgA1C , Office (58972) HgA1C , Office 6.2 % (Normal) Range: 4.6 - 7.1 :50 Blood Glucose , Office (01022) Blood Glucose , Office 119 (Normal) :55 Urinalysis, Office (22571) UA - BILIRUBIN Negative (Normal) UA - [...] Ultrasound evaluation of the right upper quadrant [facility] with real-time ultrasonography and static grayscale imaging. [...] pancreas secondary to bowel gas. Dictated on 0854 by Marta PROCTOR,TheresaTranscribed on 06/24/112034 by ITS IMPORTSign by Marta PROCTOR,Gela on 06/24/112035 Sign by: Marta PROCTOR,Gela Actin (Smooth Muscle) 13 {Units} (Normal) Comments: PERFORMED BY: COGEON Nippcd5471 [facility] [id number] :58 Antibody Range: 0-19 Comments: Negative 0 - 19 Weak positive 20 - 30 Moderate to strong positive >30 . Actin Antibodies are found in 52-85% of patients with autoimmune hepatitis or chronic active hepatitis and in 22% of patients with primary biliary cirrhosis. :58 Antinuclear Antibodies Direct Comments: PERFORMED BY: [facility]6370 [facility] [id number] GAYATRI Direct Negative (Normal) 84-Uan-03433:5 Ceruloplasmin 31.6 mg/dL (Normal) Comments: PERFORMED BY: [address] [id number] Range: 16.0-45.0 :5 Ferritin, Serum 440 ng/mL (Abnormal) Comments: PERFORMED BY: [facility] [place] [address] [id number] Range: 13-150 :58 Hepatitis Panel (4) Comments: PERFORMED BY: [facility] [place] [address] [id number] Hep C Virus Ab 0.1 {s/co_ratio} (Normal) [...] (Normal) Hep A Ab, IgM Negative (Normal) 74-Vxf-38471:58 Iron and TIBC Comments: PERFORMED BY: [facility]6370 [facility] [id number] Iron Saturation 37 % (Normal) Range: 15-55 Iron, Serum 96 ug/dL (Normal) Range: 35-155 UIBC 163 ug/dL (Normal) Range: 150-375 Iron Bind.Cap.(TIBC) 259 ug/dL (Normal) Range: 250-450 :58 Platelet Count on Citrated Comments: PERFORMED BY: [facility]6370 [facility] [id number] Bld Plt Count, Citrated Bld 216 {X10E3/uL} Range: 140-415 (Normal) 11-Jun-2011 Written Authorization WAR (Normal) Comments: PERFORMED BY: [facility] [place] [address] [id number] 9:58 Comments: Written Authorization Received.Authorization received from [facility] [id number] by Elina Swain :30 HgA1C , Office (30633) HgA1C , Office 6.7 % (Normal) Range: 4.6 - 7.1 :30 Blood Glucose , Office (18247) Blood Glucose , Office 159 (Normal) :15 METABOLIC PANEL, COMPREHENSIVE Comments: PATIENT WAS FASTINGPERFORMED BY: [facility]6370 [facility] [id number] (11414) ALT (SGPT) 51 [iU]/L (Abnormal) Range: 0-40 [...] mg/dL (Abnormal) Range: 65-99 :15 LIPID PANEL (33867) Comments: PATIENT WAS FASTINGPERFORMED BY: [employer] Ftbtuk5584 [facility] [id number] LDL/HDL Ratio 1.8 {ratio_units} (Normal) Range: 0.0-3.2 [...] MANUAL DIFF Comments: PATIENT WAS FASTINGPERFORMED BY: [facility]6370 [facility] [id number] Information: [id number] (86329) Immature Grans (Abs) 0.0 {x10E3/uL} (Normal) Range: [...] Hepatic Function Panel (7) Comments: PERFORMED BY: [facility] Hxcufz6974 [facility] [id number] ALT (SGPT) 63 [iU]/L (Abnormal) Range: 0-40 Alkaline Phosphatase, S 63 [iU]/L (Normal) Range: 25-165 AST (SGOT) 53 [iU]/L (Abnormal) Range: 0-40 Bilirubin, Direct 0.13 mg/dL (Normal) Range: 0.00-0.40 Bilirubin, Total 0.4 mg/dL (Normal) Range: 0.0-1.2 Albumin, Serum 4.5 g/dL (Normal) Range: 3.6-4.8 Protein, Total, Serum 7.8 g/dL (Normal) Range: 6.0-8.5 :26 Hepatitis Panel (4) Comments: PERFORMED BY: [facility] Cvxhxn0727 [facility] [id number] Hep C Virus Ab <0.1 {s/co_ratio} (Normal) Range: 0.0-0.9 Comments: Negative: < 0.8 Indeterminate 0.8 - 0.9 Positive: > 0.9 . In order to reduce the incidence of a false positive result, the [facility] recommends that all s/co ratios between 1.0 and 10.9 be confirmed with additional RIBA or PCR testing. HBsAg Screen Negative (Normal) Hep B Core Ab, IgM Negative (Normal) Hep A Ab, IgM Negative (Normal) 2-Als-246511:04 LIVER D BILI 0.11 mg/dL (Normal) Range: 0.00-0.30 T BILI 0.30 mg/dL (Normal) Range: 0.00-1.00 ALK P 57 U/L (Normal) Range: 50-136 ALT 68 U/L (Normal) Range: 12-78 ALB 4.0 g/dL (Normal) Range: 3.4-5.0 AST 53 U/L (Abnormal) Range: 15-37 T PROT 8.0 g/dL (Normal) Range: 6.4-8.2 :59 HgA1C , Office (91180) HgA1C , Office 6.6 % (Normal) Range: 4.6 - 7.1 :59 Blood Glucose , Office (46869) Blood Glucose , Office 124 (Normal) :17 HgA1C , Office (49940) HgA1C , Office 6.4 % (Normal) Range: 4.6 - 7.1 :17 Blood Glucose , Office (90514) Blood Glucose , Office 141 (Normal) 94-Unn-114460:17 Hemoglobin Glyclated (HGB A1C) Comments: PATIENT WAS FASTINGPERFORMED BY: [employer]70 [facility] [id number] (73756) Hemoglobin A1c 6.0 % (Abnormal) Range: 4.8-5.6 Comments: Increased risk for diabetes: 5.7 - 6.4 Diabetes: >6.4 Glycemic control for adults with diabetes: <7.0 09-Yuj-100706:17 MICROALBUMIN: CREATININE RATIO Comments: PATIENT WAS FASTINGPERFORMED BY: [facility]Jer[facility] CenterAjjmei0521 [facility] [id number] (73847) AND (49264) Microalb/Creat Ratio 2.9 {mg/g_creat} (Normal) Range: 0.0-30.0 Creatinine, Urine 49.0 mg/dL (Normal) Range: 15.0-278.0 Microalbumin, Urine 1.4 ug/mL (Normal) Range: 0.0-17.0 33-Otb-430457:17 METABOLIC PANEL, COMPREHENSIVE Comments: PATIENT WAS FASTINGPERFORMED BY: LabCoJer[facility] Shore University Medical CenterUhrqkt1659 [facility] [id number] (11131) Alkaline Phosphatase, S 61 [iU]/L (Normal) Range: [...] Glucose, Serum 116 mg/dL (Abnormal) Range: 65-99 36-Whn-274837:17 LIPID PANEL (53965) Comments: PATIENT WAS FASTINGPERFORMED BY: [employer]6370 [facility] [id number] LDL/HDL Ratio 2.2 {ratio_units} (Normal) Range: 0.0-3.2 HDL Cholesterol 50 mg/dL (Normal) Comments: According to ATP-III Guidelines, HDL-C >59 mg/dL is considered anegative risk factor for CHD. LDL Cholesterol Calc 109 mg/dL (Abnormal) Range: 0-99 VLDL Cholesterol Hillary 56 mg/dL (Abnormal) Range: 5-40 Cholesterol, Total 215 mg/dL (Abnormal) Range: 100-199 Triglycerides 282 mg/dL (Abnormal) Range: 0-149 07-Net-289032:17 CBC WITH MANUAL DIFF (88095) Comments: PATIENT WAS FASTINGPERFORMED BY: [employer] [facility] Rvrioj6856 [facility] [id number] Immature Grans (Abs) 0.0 {x10E3/uL} (Normal) Range: [...] (Normal) Range: 4.0-10.5 :57 Folic Acid Serum (56751) Comments: PATIENT NOT FASTINGPERFORMED BY: [facility] AutomotiveHar[facility]aks Hospital6370 [facility] [id number] Folate (Folic Acid), Serum 12.6 ng/mL (Normal) Comments: Indeterminate: 2.2 - 3.0Deficient: <2.2 :57 Vitamin B-12 (cyanocobalamin) Comments: PATIENT NOT FASTINGPERFORMED BY: [facility]6370 [facility] [id number] (70159) Vitamin B12 551 pg/mL (Normal) Range: 211-946 :57 CBC with manual diff Comments: PATIENT NOT FASTINGPERFORMED BY: [place] 6625570 [facility] [id number] Information: [id number] (59947) Baso (Absolute) 0.1 {x10E3/uL} (Normal) Range: 0.0-0.2 [...] 3.80-5.10 WBC 9.4 {x10E3/uL} (Normal) Range: 4.0-10.5 90-Bmz-230640:57 Metabolic Panel, Comprehensive Comments: PATIENT NOT FASTINGPERFORMED BY: LabCoJer[facility] Medical CenterJwdweb9657 [facility] [id number] (51367) ALT (SGPT) 18 [iU]/L (Normal) Range: 0-40 [...] Glucose, Serum 105 mg/dL (Abnormal) Range: 65-99 05-Dpu-107750:57 DRUG ASSAY-LITHIUM (90185) Comments: PATIENT NOT FASTINGPERFORMED BY: Melty Biydnp0502 [facility] [id number] Silver Peak (Eskalith), Serum 1.0 mmol/L (Normal) Range: 0.6-1.4 Comments: Detection Limit = 0.1<0.1 indicates None Detected :57 T4, FREE (THYROXINE) (91628) Comments: PATIENT NOT FASTINGPERFORMED BY: Melty Ipumtu7653 [facility] [id number] T4,Free(Direct) 1.17 ng/dL (Normal) Range: 0.82-1.77 :57 T3, FREE (TRIDOTHYRONINE) (88790) Comments: PATIENT NOT FASTINGPERFORMED BY: Melty Mljyro3436 [facility] [id number] Triiodothyronine,Free,Serum 2.1 pg/mL (Normal) Range: 2.0-4.4 :57 TSH (17055) Comments: PATIENT NOT FASTINGPERFORMED BY: [facility] Ddfbdb8526 [place] [id number] TSH 4.080 {uIU/mL} (Normal) Range: 0.450-4.500 :43 HgA1C , Office (39519) HgA1C , Office 5.3 % (Normal) Range: 4.6 - 7.1 :43 Blood Glucose , Office (06731) Blood Glucose , Office 125 (Normal) :4 [...] CYTYC Thin Prep VialPATIENT NOT FASTINGPERFORMED BY: LabCo[address] [id number] Information: [id number] (13930) Note: PAPSMR (Normal) Comments: The Pap smear [...] atrophy.V 72.31 ; Routine gynecological examinationRita Gonzalez Signals Analyst (ASCP) 90-Pdp-534826:00 TSH (26823) Comments: PATIENT NOT FASTINGPERFORMED BY: [employer] Ifptij3080 [facility] [id number] TSH 3.440 {uIU/mL} (Normal) Range: 0.450-4.500 : CBC (Auto) (11417) Comments: PATIENT NOT FASTINGPERFORMED BY: [facility] AutomotiveCo[facility] Ldyicw5149 [facility] [id number] Information: [id number] Platelets 258 {x10E3/uL} (Normal) Range: 140-415 RDW 13.6 % (Normal) Range: 11.7-15.0 Hematocrit 43.5 % (Normal) Range: 34.0-44.0 MCH 31.6 pg (Normal) Range: 27.0-34.0 MCHC 33.6 g/dL (Normal) Range: 32.0-36.0 MCV 94 fL (Normal) Range: 80-98 Hemoglobin 14.6 g/dL (Normal) Range: 11.5-15.0 RBC 4.61 {x10E6/uL} (Normal) Range: 3.80-5.10 WBC 8.6 {x10E3/uL} (Normal) Range: 4.0-10.5 22-Qba-484341:00 Metabolic Panel, Basic Comments: PATIENT NOT FASTINGPERFORMED BY: [employer] Gqobhg8978 [facility] [id number] (96048) Calcium, Serum 9.1 mg/dL (Normal) Range: 8.6-10.2 [...] Glucose, Serum 111 mg/dL (Abnormal) Range: 65-99 22-Nje-016439:00 DRUG ASSAY-LITHIUM (56900) Comments: all these labs standing order prn; PATIENT NOT FASTINGPERFORMED BY: [employer]6370 [facility] [id number] Silver Peak (Eskalith), Serum 0.9 mmol/L (Normal) Range: 0.6-1.4 Comments: Detection Limit = 0.1<0.1 indicates None Detected 84-Mcj-28426:16 METABOLIC PANEL, COMPREHENSIVE Comments: PATIENT NOT FASTINGPERFORMED BY: [employer] [facility] Xlwkuj4229 [facility] [id number] (41896) A/G Ratio 1.3 (Normal) Range: 1.1-2.5 Alkaline [...] Glucose, Serum 207 mg/dL (Abnormal) Range: 65-99 17-Lpm-21907:16 CBC WITH MANUAL DIFF Comments: PATIENT NOT FASTINGPERFORMED BY: LabCoJer[facility] Medical CenterAgyati7311 [facility] [id number] Information: [id number] (70949) Baso (Absolute) 0.1 {x10E3/uL} (Normal) Range: 0.0-0.2 [...] CREATININE RATIO Comments: PATIENT NOT FASTINGPERFORMED BY: [facility] Isazym5235 [facility] [id number] (68582) AND (16794) Microalb/Creat Ratio 6.2 {mg/g_creat} (Normal) Range: 0.0-30.0 Microalbumin, Urine 2.5 ug/mL (Normal) Range: 0.0-17.0 Creatinine, Urine 40.1 mg/dL (Normal) Range: 15.0-278.0 :38 HgA1C , Office (50219) HgA1C , Office 6.6 % (Normal) Range: 4.6 - 7.1 :38 Blood Glucose , Office (97451) Blood Glucose , Office 214 (Normal) 03-Jwb-468660:05 URINE VERÓNICA CULTURE-IDENTIFICATN Comments: PATIENT NOT FASTINGPERFORMED BY: LabCoJer[facility] Medical CenterCmpjet5206 [facility] [id number] Information: [id number] (05397) Antimicrobial MIHEAD (Normal) Comments: S = Susceptible; [...] mL (Normal) Urine Final report (Normal) Culture,Comprehensive 16-Olz-458273:23 CHEST, PA AND LATERAL (MT) Radiology Report See Note (Normal) Comments: Exam Number: [id number] CLINICAL:58-year-old female with cough, pain and shortness [...] otherwise unremarkable. Reported By: SISI MART Dr. 95-Uqf-19065:23 B.pertussisB.parapertussis PCR Comments: PERFORMED BY: ELIESER PtbwCqg5999 [facility] [id number] Bordetella parapertussis DNA Negative (Normal) Comments: .This test was developed and its performance characteristics determinedby [employer]. It has not been cleared or approved by theU.S. Food and Drug Administration. The FDA has determined that s uchclearance or approval is not necessary. This test is used for clinicalpurposes. It should not be regarded as investigational or research. Bordetella pertussis DNA Negative (Normal) :50 HgA1C , Office (10290) HgA1C , Office 5.5 % (Normal) Range: 4.6 - 7.1 :50 Blood Glucose , Office (48581) Blood Glucose , Office 90 (Normal) :33 HgA1C , Office (93527) HgA1C , Office 5.6 % (Normal) Range: 4.6 - 7.1 :41 HgA1C , Office (40294) HgA1C , Office 5.5 % (Normal) Range: 4.6 - 7.1 Comments: :41 Blood Glucose , Office (30600) Comments: 89 Blood Glucose , Office 89 [...] (Normal) Range: 0.34-4.82 :42 HgA1C , Office (61537) HgA1C , Office 5.4 % (Normal) Range: 4.6 - 7.1 :42 Blood Glucose , Office (28350) Blood Glucose , Office 103 (Normal) :20 [...] T PROT 8.0 g/dL (Normal) Range: 6.4-8.2 25-Lvw-062652:20 LIPID CHOL 148 mg/dL (Normal) Comments: <200 [...] mg/dL VLDL 30 mg/dL (Normal) Range: 5-40 20-Zus-843424:20 ROUTINE UA BILIRUBIN URINE SeeNote (Normal) Comments: [...] 0.2 EU/dl (Normal) Range: 0.2 - 1.0 73-Uwe-00804:06 THYROID (HP) Radiology Report See Note (Normal) Comments: Exam Number: [id number] THYROID ULTRASOUND HISTORYGoiter. There is borderline increase [...] 03, 2007. Reported By: PETRONA REGALADO M.D. 64-Oda-02027:20 MAMM, UILAT DIAG DIGITAL & CAD Radiology Report See Note (Normal) Comments: Exam Number: [id number] UNILATERAL LEFT DIAGNOSTIC MAMMOGRAPHY CLINICAL STATEMENTLeft breast [...] The mammogramswere also examined with computer-aided detection software(Wayin.). Reported By: REID KRUEGER M.D. 7-Sci-755570: TSH 0.94 {uIU/mL} Range: 0.34-4.82 50 (Normal) 5-Pgq-325115:06 MAMMLINDSEY DIGITAL & CAD Radiology Report See Note (Normal) Comments: Exam Number: [id number] MAMMOGRAM, BILATERAL SCREENING DIGITAL AND CAD HISTORYRoutine [...] was rendered by a radiologist certified under [facility] Quality Standards Act of 1992 (MQSA). The mammograms werealso examined with computer-aided detection software (OneMorePallet, Brickflow.). Reported By: PETRONA REGALADO M.D. 8-Ugb-742000:05 THYROID () Radiology Report See Note (Normal) Comments: Exam Number: [id number] THYROID ULTRASOUND HISTORYGoiter. High resolution real time [...] 6 months. Reported By: PETRONA REGALADO M.D. 76-Aar-921634:22 HgA1C , Office (17695) HgA1C , Office 5.9 % (Normal) Range: 4.6 - 7.1 53-Iwl-258225:22 Blood Glucose , Office (68233) Blood Glucose , Office 88 (Normal) Plan [...] II, controlled Stress incontinence, female : Reviewed Balloon Dipper Letter Indication: Stress incontinence, female Diabetes mellitus [...] acute Planned Observations VITAMIN B12 AND FOLATES (49685)Indication: Neuropathic pain On: :08 Request Blood Glucose , Office (74085)Indication: Diabetes mellitus type II, controlled On: 15-Pyr-59839:04 Request LIPID PANEL (39347)Indication: Neuropathic pain On: 05-Lqh-40524:54 Request Blood Glucose , Office (00861)Indication: Diabetes mellitus type II, controlled On: 02-Nov-20178:55 Request D-Dimer (50031)Indication: Shortness of breath On: 76-Ccp-533740:19 Request Metabolic Panel, Comprehensive (78027)Indication: Diabetes mellitus type II, controlled On: 21-Wiq-176624:19 Request Comments: Nov 2017 LIPID PANEL (50460)Indication: Diabetes mellitus type II, controlled On: 61-Ecl-004498:19 Request Comments: Nov 2017 URINALYSIS (77786)Indication: Diabetes mellitus type II, controlled On: 26-Vsc-636916:19 Request Comments: Nov 2017 TSH (73808)Indication: Diabetes mellitus type II, controlled On: :18 Request Comments: Nov 2017 CBC, Platelets & Auto Diff (62901)Indication: Diabetes mellitus type II, controlled On: 32-Fvi-278377:18 Request Comments: Nov 2017 MICROALBUMIN: CREATININE RATIO (39611) AND (85777)Indication: Diabetes mellitus type II, controlled On: 60-Vbb-947505:18 Request Comments: Nov 2017 HgA1C , Office (52491)Indication: Diabetes mellitus type II, controlled On: 25-Mmf-988941:44 Request Anaerobic & Aerobic Culture (64426)Indication: Mouth pain On: 1-Jfd-125464:11 Request Metabolic Panel, Comprehensive (13694)Indication: Chronic kidney disease (CKD), stage I On: 96-Msa-200219:50 Request Comments: 2 weeks Metabolic Panel, Comprehensive (90991)Indication: Diabetes mellitus type II, controlled On: 91-Dru-571845:56 Request Comments: today URINALYSIS (36027)Indication: Chronic kidney disease (CKD), stage I On: 46-Xvo-515262:52 Request Comments: Jul 2017 MICROALBUMIN: CREATININE RATIO (59377) AND (14919)Indication: Chronic kidney disease (CKD), stage I On: 21-Icy-796137:52 Request Comments: jul 2017 Lipid Panel (15287)Indication: Hypertension (Renamed from BP (high blood pressure)) On: 99-Eoe-409130:52 Request Comments: Jul 2017 TSH (66695)Indication: Leg weakness On: 68-Het-031928:52 Request Comments: Jul 2017 CBC, Platelets & Auto Diff (64719)Indication: Leg weakness On: 53-Eaf-561606:52 Request Comments: jul 2017 METABOLIC PANEL, COMPREHENSIVE (25123)Indication: Weakness On: 68-Vnz-054329:55 Request METABOLIC PANEL, COMPREHENSIVE (94408)Indication: Hypokalemia On: 51-Lbp-78859:43 Request Comments: STAT SED RATE ERYTHROCYTE (74949)Indication: Weakness On: 58-Kpv-448184:29 Request TSH (THYROID STIMULATING HORMONE) (97377)Indication: Unspecified abnormal involuntary movements On: 75-Wdo-056896:17 Request METABOLIC PANEL, COMPREHENSIVE (28972)Indication: Unspecified abnormal involuntary movements On: 81-Zkq-890552:17 Request CBC, PLATELETS & AUT DIFF (42404)Indication: Unspecified abnormal involuntary movements On: 26-Igp-448629:17 Request URINE VERÓNICA CULTURE-IDENTIFICATN (13299)Indication: Weakness On: 99-Ife-620433:07 Request Blood Glucose , Office (03271)Indication: Unspecified abnormal involuntary movements On: :59 Request VITAMIN B12 AND FOLATES (73499)Indication: Unspecified abnormal involuntary movements On: :57 Request SPEP (30977)Indication: Elevated serum creatinine On: 75-Abf-768420:31 Request CALCIFIDIOL (40258) VIT D 25Indication: Vitamin D deficiency (Renamed from Avitaminosis D) On: : Request TSH (14384)Indication: Hypothyroidism On: : Request MICROALBUMIN: CREATININE RATIO (96537) AND (61556)Indication: Diabetes mellitus type II, controlled On: : Request METABOLIC PANEL, COMPREHENSIVE (88229)Indication: Diabetes mellitus type II, controlled On: : Request LIPID PANEL (68792)Indication: Diabetes mellitus type II, controlled On: : Request CBC with auto diff (60199)Indication: Diabetes mellitus type II, controlled On: : Request CALCIFIDIOL (12726) VIT D 25Indication: Vitamin D deficiency (Renamed from Avitaminosis D) On: 75-Asd-238401:15 Request Comments: in three months (approximately) METABOLIC PANEL, COMPREHENSIVE (65880)Indication: Diabetes mellitus type II, controlled On: 20-Zsm-225975:15 Request Comments: in three months (approximately) SODIUM URINE (19570)Indication: Hyponatremia On: 4-Xug-956741:51 Request OSMOLALITY URINE (73369)Indication: Hyponatremia On: 9-Zwq-815045:50 Request OSMOLALITY BLOOD (06739)Indication: Hyponatremia On: 3-Bjt-776215:50 Request ASSAY, TROPONIN, QUANTITATIVE (aka Troponin I) (81370)Indication: Chest pain On: 03-Pnx-978021:40 Request Comments: stat D-Dimer (72736)Indication: Chest pain On: 54-Awy-295745:40 Request Comments: stat TSH (89985)Indication: Chest pain On: 21-Mmh-133417:40 Request CBC WITH MANUAL DIFF (85609)Indication: Chest pain On: 25-Doe-306865:40 Request METABOLIC PANEL, COMPREHENSIVE (42917)Indication: Chest pain On: 00-Sry-075802:40 Request URINE VERÓNICA CULTURE (SHARIFA COL COUNT) (66860)Indication: Dysuria (Renamed from Difficult or painful urination) On: 19-Lgo-144318:24 Request Metabolic Panel, Comprehensive (15017)Indication: Hypertension (Renamed from BP (high blood pressure)) On: 74-Nil-240484:56 Request Metabolic Panel, Basic (64509)Indication: Elevated LFTs On: 56-Fpx-632519:16 Request 24 hour urine for Protein (69676)Indication: Elevated serum creatinine On: 10-Gft-351142:40 Request Comments: recheck in one week CREATININE CLEARANCE (67875)Indication: Elevated serum creatinine On: 76-Yzq-882407:39 Request Comments: recheck in one week Blood Glucose , Office (41508)Indication: Diabetes mellitus type II, controlled On: 00-Mab-51778:29 Request METABOLIC PANEL, COMPREHENSIVE (22237)Indication: Hypokalemia (Renamed from Decreased potassium in the blood) On: 35-Vdx-160843:52 Request MICROALBUMIN: CREATININE RATIO (57854) AND (62398)Indication: Diabetes mellitus type II, controlled On: 02-Hos-491418:14 Request FLURESCNT ANTIB SCRN EA (65729) celiac profileIndication: Irritable bowel syndrome (Renamed from Functional bowel disease) On: 4-Qlf-158375:58 Request IMMUNOASSAY, ANALYTE (NON-INFECT) (11274) celiac profileIndication: Irritable bowel syndrome (Renamed from Functional bowel disease) On: 3-Nrg-950240:58 Request IGA/IGD/IGG/IGM-EACH (44713) celiac profileIndication: Irritable bowel syndrome (Renamed from Functional bowel disease) On: 6-Aky-951885:58 Request Potassium Serum (46896)Indication: Hypokalemia (Renamed from Decreased potassium in the blood) On: 4-Haa-642830:58 Request Celiac Disease Comphrehensive Profile (28544)Indication: Irritable bowel syndrome (Renamed from Functional bowel disease) On: 04-Nov-20129:56 Request METABOLIC PANEL, COMPREHENSIVE (98289)Indication: Diabetes mellitus type II, controlled On: 66-Tyg-268149:32 Request LIPID PANEL (38561)Indication: Diabetes mellitus type II, controlled On: :32 Request CBC WITH MANUAL DIFF (53875)Indication: Diabetes mellitus type II, controlled On: :32 Request MICROALBUMIN: CREATININE RATIO (59513) AND (67995)Indication: Diabetes mellitus type II, controlled On: 82-Zdt-871210:32 Request TSH (35090)Indication: Hypothyroidism On: :32 Request TSH (31145)Indication: Hypothyroidism On: : Request MICROALBUMIN: CREATININE RATIO (95367) AND (14572)Indication: Diabetes mellitus type II, controlled On: : Request METABOLIC PANEL, COMPREHENSIVE (28828)Indication: Diabetes mellitus type II, controlled On: : Request LIPID PANEL (45203)Indication: Diabetes mellitus type II, controlled On: : Request CBC WITH MANUAL DIFF (39602)Indication: Diabetes mellitus type II, controlled On: : Request URINE VERÓNICA CULTURE-SHARIFA COL COUNT (36652)Indication: Dysuria (Renamed from Difficult or painful urination) On: 05-Aup-804214:15 Request URINE VERÓNICA CULTURE-SHARIFA COL COUNT (90704)Indication: Dysuria (Renamed from Difficult or painful urination) On: 91-Ixx-250820:55 Request Ferritin (63908)Indication: Elevated LFTs On: 73-Crh-256374:50 Request Comments: repeat now per Dr. Cabral with iron level Iron Binding Capacity (TIBC) (49910)Indication: Elevated LFTs On: 75-Vfg-440052:50 Request Iron (85891)Indication: Elevated LFTs On: 36-Xzv-691461:49 Request CBC (Auto) (21664)Indication: Thrombocytopenia, unspecified On: 87-Bnh-983971:01 Request Comments: nonclumping tube HEPATITIS PANEL (63663)Indication: Elevated LFTs On: 57-Jri-106005: Request FERRITIN (92080)Indication: Elevated LFTs On: 46-Bmu-805078:00 Request CERULOPLASMIN (71278)Indication: Elevated LFTs On: 62-Yul-618722:00 Request ASM (ANTI SMOOTH MUSCLE ANTIBODY) (53458)Indication: Elevated LFTs On: 31-Zbh-115200:00 Request GAYATRI (ANTINUCLEAR ANTIBODY) (84516)Indication: Elevated LFTs On: 89-Omx-192988:00 Request HEPATITIS PANEL (84951)Indication: Elevated LFTs On: :01 Request TSH (98538)Indication: Hypothyroidism On: 85-Gqa-036051:16 Request LIPID PANEL (91260)Indication: Diabetes mellitus type II, controlled On: 87-Huh-631584:15 Request DRUG ASSAY-LITHIUM (90829)Indication: Bipolar affective disorder, mixed On: 56-Mvl-486260:14 Request Metabolic Panel, Basic (97521)Indication: Bipolar affective disorder, mixed On: 46-Oce-295933:13 Request Metabolic Panel, Basic (84735)Indication: Bipolar affective disorder, mixed On: 51-Kyl-442582:22 Request DRUG ASSAY-LITHIUM (15834)Indication: Bipolar affective disorder, mixed On: 01-Hlh-106564:22 Request Comments: 2 months Urinalysis, Office (52228)Indication: Urinary frequency On: 99-Llu-532999:27 Request Comments: done pms HEPATIC FUNCTION PANEL ([id number])Indication: Other and unspecified hyperlipidemia On: 4-Thq-681939:45 Request Lipid Panel ([id number])Indication: Other and unspecified hyperlipidemia On: 8-Ynu-384736:45 Request Lipid Panel ([id number])Indication: Other and unspecified hyperlipidemia On: 24-Iyo-005734:17 Request CBC, Platelets & Auto Diff ([id number])Indication: Other and unspecified hyperlipidemia On: 78-Nky-008469:17 Request Metabolic Panel, Comprehensive ([id number])Indication: Other and unspecified hyperlipidemia On: 07-Ltc-376586:17 Request TSH ([id number])Indication: Hypothyroidism On: 20-Hed-664050:15 Request Metabolic Panel, Basic ([id number])Indication: Other and unspecified hyperlipidemia On: :55 Request Lipid Panel ([id number])Indication: Other and unspecified hyperlipidemia On: :55 Request Comments: in three months (approximately) CBC (Auto) ([id number])Indication: Intestinal disaccharidase deficiencies and disaccharide malabsorption On: :56 Request Metabolic Panel, Comprehensive ([id number])Indication: Intestinal disaccharidase deficiencies and disaccharide malabsorption On: :56 Request Lipid Panel ([id number])Indication: Intestinal disaccharidase deficiencies and disaccharide malabsorption On: 20-Wmm-84111:56 Request Comments: in three months (approximately) MICROALBUMIN 24 HOUR OR RANDOM On: 05-Uth-548892:04 Request ([id number]) CREATININE CLEARANCE ([id number]) On: 31-Ake-965250:03 Request CBC (Auto) ([id number])Indication: Unspecified disorder of kidney and ureter On: 91-Jfg-18474:53 Request Lipid Panel ([id number])Indication: Unspecified disorder of kidney and ureter On: 92-Txq-52023:53 Request Metabolic Panel, Comprehensive ([id number])Indication: Unspecified disorder of kidney and ureter On: :53 Request TSH ([id number])Indication: Hypothyroidism On: :53 Request TSH ([id number])Indication: Hypothyroidism On: 73-Dft-338621:18 Request URINALYSIS ([id number])Indication: Intestinal disaccharidase deficiencies and disaccharide malabsorption On: 05-Sea-065702:43 Request CBC (Auto) ([id number])Indication: Intestinal disaccharidase deficiencies and disaccharide malabsorption On: 70-Gal-337488:43 Request Lipid Panel ([id number])Indication: Intestinal disaccharidase deficiencies and disaccharide malabsorption On: 35-Kgl-222416:43 Request Metabolic Panel, Comprehensive ([id number])Indication: Intestinal disaccharidase deficiencies and disaccharide malabsorption On: 44-Qmf-744658:43 Request Planned Encounters Medical; 1 Week FU - 10 days On: 08-Aug-2018 9:30 [facility] Eli Bowman CNP, CNP, Mary E Planned Procedures COMPUTED TOMOGRAPHY ANGIOGRAPHY OF On: 01-Aug-2018 Intent CHEST FOR PULMONARY EMBOLISM Comments: stat for PE ([id number])By: lEi Bowman CNP, CNP, Mary E Echo CompleteBy: Eli Bowman CNP On: 29-Jul-2018 Intent Eli Bowman CNP Spirometry ([id number])By: Colby WATTERS, On: 29-Jul-2018 Intent Eli Mcelroy CNP Holter Monitor 24 hrsBy: Colby WATTERS, On: 29-Jul-2018 Intent Eli Mcelroy CNP CHEST XRAY, PA & LATERAL ([id number])By: On: 29-Jul-2018 Intent Eli Bowman CNP, CNP, Mary E ELECTROCARDIOGRAM, COMPLETE (ECG) On: 29-Jul-2018 Intent ([id number])By: Eli Bowman CNP Comments: sinus rhythm Eli WATTERS Aerosol Treatment ([id number])By: Colby On: 29-Jul-2018 Intent Eli WATTERS CNP, Mary E Flu Vaccine (Quadrivalent) 29087Yi: On: 22-Jul-2018 Intent Tejal Ceron Comments: Lot #[id number]-L dltd, IMDose prefilled syringegiven by: Rosalie Ceron MA Toradol Injection, 30 mg ([id number])By: On: 09-May-2018 Intent Nunu Root Comments: lot [id number] 12/2029mgIMleft gmas, 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 SCREENING DIGITAL TOMOSYNTHESIS OF On: 18-Apr-2018 Intent BREAST ([id number])By: Eli Bowman CNP, CNP, Mary E DEXA SCAN AXIAL SKELETON ([id number])By: On: 18-Apr-2018 Intent Eli Bowman CNP, CNP, Mary E Toradol Injection, 30 mg ([id number])By: On: 22-Mar-2018 Intent Nunu Root Comments: toradol 30mg injection lot:[id number]:10/2019R GMpt tolerated wellMSMITH,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 COMPLETE ELECTROMYOGRAPHY (EMG) WITH On: 22-Mar-2018 Intent NERVE CONDUCTION STUDIES OF EACH Comments: Bilateral lower legs EXTREMITY ([id number])By: Nunu Root EMGBy: Eli Bowman CNP, CNP, On: 03-Jan-2018 Intent Eli Lubin Comments: both legs Nerve ConductionBy: Eli Bowman CNP On: 03-Jan-2018 Intent E Eli Bowman CNP Comments: both legs Toradol Injection, 30 mg ([id number])By: On: 23-Dec-2017 Intent Mayda Dobbins DO Comments: toradol 30mg injectionlot: [id number]: 06/2018L GMpt tolerated wellAD 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 Spirometry ([id number])By: Dk On: 16-Nov-2017 Intent Nunu Comments: Normal spirometry Aerosol Treatment ([id number])By: Shilpi On: 30-Aug-2017 Mayda Bailey DO Comments: less noise with forced exp Solu- Medrol Injection, 125mg On: 30-Aug-2017 Intent ([id number])By: Mayda Dobbins DO Comments: solumedrol 125mg injectionlot: [id number]: GMpt tolerated wellAD 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 Radiology - Chest- PA and LatBy: On: 30-Aug-2017 Intent Mayda Dobbins DO Solu- Medrol Injection, 125mg On: 26-Aug-2017 Intent ([id number])By: Mayda Dobbins DO Comments: solumedrol 125mg injectionlot: [id number]: 12/2019L GMpt tolerated wellAD 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 Aerosol Treatment ([id number])By: Shilpi On: 26-Aug-2017 Mayda Bailey DO Comments: [place] Spirometry ([id number])By: Shilpi COLEMAN, On: 26-Aug-2017 Intent Mayda Comments: mild obstruction Radiology - Shoulder - RightBy: On: 20-Jul-2017 Intent Edita Cabral MD Radiology - Lumbar SpineBy: Misha On: 20-Jul-2017 Intent Edita PROCTOR DRAIN/INJECT MAJOR JOINT OR BURSA On: 13-Apr-2017 Intent ([id number])By: Eli Bowman CNP Comments: injevted left knee today Eli WATTERS PHYSICAL THERAPY ([id number])By: Dk On: 08-Apr-2017 Intent Nunu Radiology - Knee - RightBy: Dk On: 08-Apr-2017 Intent Nunu Radiology - Knee - LeftBy: Dk On: 08-Apr-2017 Intent Nunu ATTENDED SLEEP STUDY ([id number])By: On: 18-Jan-2017 Intent Eli Bowman CNP, CNP, Mary E DEXA SCAN AXIAL SKELETON ([id number])By: On: 24-Nov-2016 Intent Donnie Gonzales MD MAMMOGRAM, SCREENING, BOTH BREAST On: 24-Nov-2016 Intent ([id number])By: Donnie Gonzales MD US KIDNEY COMPLETE ([id number])By: Janet On: 16-Jul-2016 Intent Donnie PROCTOR EsophagramBy: Edita aCbral MD On: 06-Feb-2016 Intent Comments: 12mm tablet X-RAY EXAM OF ESOPHAGUS ([id number]) - On: 04-Feb-2016 Intent Barium Swallow with 12mm tabletBy: Donnie Gonzales MD Carotid DopplerBy: Edita Cabral MD On: 16-Sep-2015 Intent M TD VACCINE ADULT ([id number])By: Misha On: 16-Sep-2015 Intent Edita PROCTOR TDAP VACCINE >7 IM ([id number])By: On: 16-Sep-2015 Intent Edita Cabral MD Pap Smear, Medicare ([id number])By: On: 16-Sep-2015 Intent Edita Cabral MD MAMMOGRAM, SCREENING, BOTH BREAST On: 16-Sep-2015 Intent ([id number])By: Edita Cabral MD Renal Artery DopplerBy: Misha PROCTOR, On: 04-Feb-2015 Intent Edita Clinton Ultrasound - RenalBy: Misha PROCTOR, On: 04-Feb-2015 Intent Edita Clinton DEXA SCAN AXIAL SKELETON ([id number])By: On: 17-Jan-2015 Intent Edita Cabral MD Comments: postmenapausal MAMMOGRAM, SCREENING, BOTH BREAST On: 17-Jan-2015 Intent ([id number])By: Edita Cabral MD Radiology - Shoulder - [...] with back pain- stat call results Spirometry ([id number])By: Thee COLEMAN, On: 30-Apr-2014 Intent Erna Schaefer Comments: good effort and curve normal ELECTROCARDIOGRAM, COMPLETE (ECG) On: 30-Apr-2014 Intent ([id number])By: Erna Kingston DO Eprescribed prescriptions ([id number])By: On: 12-Feb-2014 Intent Edita Cabral MD SPECIMEN HANDLING/TRANSPORT On: 15-Jan-2014 Intent ([id number])By: Colby WATTERS, Eli Bowman CNP, Eli Lubin Eprescribed prescriptions ([id number])By: On: 11-Oct-2013 Intent Nunu Stephens LPN ADMINISTRATION OF INFLUENZA VIRUS On: 24-Jul-2013 Intent VACCINE ([id number])By: Edita Cabral MD FLU VAC, SPLIT, >3 YEARS, INTRAMUSC On: 24-Jul-2013 Intent ([id number])By: Edita Cabral MD Echo CompleteBy: Edita Cabral MD On: 27-Jun-2013 Intent Carotid DopplerBy: Edita Cabral MD On: 27-Jun-2013 Intent Oz Eprescribed prescriptions ([id number])By: On: 27-Jun-2013 Intent Teressa Molina LPN MRI - BrainBy: Colby WATTERS Elif On: 16-Jun-2013 Intent Colby WATTERS Elif SPECIMEN HANDLING/TRANSPORT On: 16-May-2013 Intent ([id number])By: Sue Ewing LPN Holter Monitor 24 hrsBy: Colby WATTERS, On: 28-Apr-2013 Intent ElifAmee Bowman CNP Elif ELECTROCARDIOGRAM, COMPLETE (ECG) On: 28-Apr-2013 Intent ([id number])By: Eli Bowman CNP Comments: sinus bradycardia JANENE Eli Lubin Bio Z ([id number])By: Eli Bowman CNP On: 28-Apr-2013 Intent Colby WATTERS Elif EKG (99585)By: Edita Cabral MD On: 28-Mar-2013 Intent Comments: see scanned document of test done to see results reviewed today with patient Eprescribed prescriptions ([id number])By: On: 28-Mar-2013 Intent Teressa Molina LPN Eprescribed prescriptions ([id number])By: On: 08-Dec-2012 Intent Nunu Stephens LPN Spirometry ([id number])By: Shilpi COLEMAN, On: 25-Nov-2012 Intent Mayda Comments: Computer not running so not able to perform test Aerosol Treatment ([id number])By: Shilpi On: 25-Nov-2012 Intent Mayda COLEMAN Spirometry ([id number])By: Thee COLEMAN, On: 21-Nov-2012 Intent Erna A Comments: good effort and curve normal Radiology - Chest- PA and LatBy: On: 21-Nov-2012 Intent Thee DO, Erna A Eprescribed prescriptions ([id number])By: On: 21-Nov-2012 Intent Makayla Dillard LPN ADMINISTRATION OF PNEUMOCOCCAL On: 31-Oct-2012 Intent VACCINE (G0009)By: Edita Cabral MD Comments: Lot #[id number]-right deltoidDose0.5mlgiven by: [facility] per fax. M PNEUM VAC ADLT/IMUMNOSPR, SBC/INTRM On: 31-Oct-2012 Intent (05415)By: Jodi Carvalho LPN Eprescribed prescriptions ([id number])By: On: 18-Oct-2012 Intent Teressa Molina LPN FLU VAC, SPLIT, >3 YEARS, INTRAMUSC On: 01-Jul-2012 Intent (98071)By: Eli Bowman CNP Comments: Lot:[id number]:6.13Amt:prefilled syringeSite: L Dltd, IMGiven by: MARISA Torres CNP, Mary E ADMINISTRATION OF INFLUENZA VIRUS On: 01-Jul-2012 Intent VACCINE (G0008)By: Eli Bowman CNP, CNP, Mary E SPECIMEN HANDLING/TRANSPORT On: 01-Jul-2012 Intent ([id number])By: Sue Ewing LPNu -Medrol Injection, 125 mg On: 23-Nov-2011 Intent ([id number])By: Edita Cabral MD Comments: Lot [id number]-R hip, IMDose 125mggiven by:Teressa Radiology - ChestBy: Misha PROCTOR, On: 23-Nov-2011 Intent Edita Clinton Comments: wet read Pulse Oximetry (83131)By: Benoit On: 23-Nov-2011 Intent AKBAR Aerosol Treatment (10173)By: Colby On: 16-Nov-2011 Intent Eli WATTERS CNP, Mary E Pulse Oximetry (00860)By: Vin On: 16-Nov-2011 Intent Lynn Comments: 93 FLU VAC, SPLIT, >3 YEARS, INTRAMUSC On: 16-Nov-2011 Intent ([id number])By: Lynn Banuelos Comments: received at work SPECIMEN HANDLING/TRANSPORT On: 14-Sep-2011 Intent ([id number])By: Edita Cabral MD SPECIMEN HANDLING/TRANSPORT On: 26-Aug-2011 Intent (57376)By: Sue Ewing LPN Ultrasound - LiverBy: Misha PROCTOR, On: 11-Jun-2011 Intent Edita Clinton EKG (72619)By: Edita Cabral MD On: 16-Feb-2011 Intent MAMMOGRAM, SCREENING, BOTH BREASTS On: 13-Mar-2010 Intent ([id number])By: Edita Cabral MD MAMMOGRAM, SCREENING, BOTH BREASTS On: 06-Mar-2010 Intent ([id number])By: Edita Cabral MD MAMMOGRAM, SCREENING, BOTH BREASTS On: 13-Feb-2010 Intent ([id number])By: Edita Cabral MD Spirometry (61071)By: Misha PROCTOR, On: 01-Oct-2009 Intent Edita Clinton ELECTROCARDIOGRAM, COMPLETE (ECG) On: 01-Oct-2009 Intent ([id number])By: Edita Cabral MD Pulse Oximetry (85946)By: Benoit On: 01-Oct-2009 Intent AKBAR Spirometry (22436)By: Thee COLEMAN, On: 30-Jul-2009 Intent Erna Schaefer Comments: good effort and curve normal Radiology - Chest- PA and LatBy: On: 30-Jul-2009 Intent Erna Kingston DO Pulse Oximetry (55985)By: Vin, On: 30-Jul-2009 Intent Lynn Comments: 94%repeat 97-98 EKG ([id number])By: Erna Kingston DO On: 14-Jul-2009 Intent Comments: ekg showed normal sinus rhythym, normal axis, no acute st/t wave changes old t wave inversion noted on previous ekg Pulse Oximetry (05624)By: Vin, On: 11-Jul-2009 Intent Lynn Comments: 97% Solu -Medrol Injection, 125 mg On: 09-Jul-2009 Intent ([id number])By: Erna Kingston DO Comments: Lot #:[id number] date:mount given:125mgRoute:IM Site given:left buttockGiven by: MARIA DOLORES Cordon Aerosol Treatment (22110)By: Thee On: 09-Jul-2009 Intent Erna COLEMAN Pulse Oximetry (82052)By: Thee COLEMAN, On: 09-Jul-2009 Intent Erna A Comments: repeat after treatment was 96 Pulse Oximetry (40657)By: Vin, On: 09-Jul-2009 Intent Lynn Comments: 93% Spirometry (44081)By: Gildardo SOUSA, On: 25-Jan-2009 Intent Sue MAMMOGRAM, SCREENING, BOTH BREASTS On: 29-May-2008 Intent (06716)By: Edita Cabral MD EKG (78955)By: Edita Cabral MD On: 29-May-2008 Intent Spirometry (03259)By: Misha PROCTOR, On: 27-Dec-2007 Intent Edita Clinton Ultrasound - ThyroidBy: Misha PROCTOR, On: 22-Mar-2007 Intent Edita Clinton MAMMOGRAM, SCREENING, BOTH BREASTS On: 22-Mar-2007 Intent ([id number])By: Edita Cabral MD MAMMOGRAM, SCREENING, BOTH BREASTS On: 22-Mar-2007 Intent (56432)By: Edita Cabral MD ELECTROCARDIOGRAM, COMPLETE (ECG) On: 22-Mar-2007 Intent ([id number])By: Edita Cabral MD Planned Medications INJECTION, KETOROLAC [...] disease, bilateral : DISCONTINUED - POTASSIUM SERUM (64739) Indication: Active Meniere's disease, bilateral Elevated LFTs : DISCONTINUED - HEPATIC FUNCTION PANEL (39399) Indication: Elevated LFTs Diabetes mellitus type II, controlled : Patient Instructions Indication: Diabetes mellitus type II, controlled Cough : Patient Instructions Indication: Cough Pharyngitis, acute : Patient Instructions Indication: Pharyngitis, acute Asthma in adult : Patient Instructions Indication: Asthma in adult Active Meniere's disease, bilateral : Patient Instructions Indication: Active Meniere's disease, bilateral Encounters Annotation/Addendum On: 01-Aug-2018 7:38 Encounter Diagnosis: Elevated [...] reveiwing printed for pt to take to [facility] , [ADDITIONAL REASON] Weight Gain - [...] in ER on 12-29 after eating at [employer] and choking on a piece of potatoe had th End: 04-Jan-2017 11:17 amee hilario then went to urgent care, told to go to ER at [facility] diagnosed with Esophagitis was given pepcid and [...] occurred following a specific injury (lifting at [employer] for years but no fall). The injury [...] bathroom. The patient has completed the f [facility] preventative measures: PAP smear (needs updated ), mammography (needs updated ) and colonoscopy (needs updated however patient refuse to have done bc she was hospitalized with the last one with infection for 5 days ). The patient does have durable power of ip technology transactions attorney and living will. The patient has [...] for Tdap vaccination (Renamed from Need for egevqjzwxg-anjszcf-wlbsyigku (Tdap) vaccine, adult/adolescent), Goiter (Renamed from Big [...] symptoms/reason for visit include/s Symptoms include other (vertiog, lef End: 29-May-2008 10:01 t sided weakness ). [...] (240.9), Hypothyroidism(244.9) [facility] Payers MedicarePhys[employer] [place] [employer] Lilly Toro; ezio guarantor
--- OUTSIDE RECORDS SUMMARY | 2018-11-25 15:22 | XMS RPT_ITS | Continuity of Care Document ---
:1950 Author Organization [facility] Address [address] [place] [address] Phone Care Team Providers Name Role Phone Colby JANENEEli E Unavailable Mina Baer MD Unavailable Nhung Duval Unavailable [facility], [facility] Unavailable Kasi Scott Unavailable Mariia Zhang Unavailable Dr. Junior Pena Unavailable Navdeep Fox Unavailable Elie Russo Unavailable Tanphaichitr - Bauer, Aaron Unavailable Be Middleton Unavailable MD Tyrone, Génesis Unavailable Damion Alas Unavailable Sisi Perez Unavailable MERRY Stephens Unavailable Unavailable aPul Weathers Unavailable Unavailable Caitlin Delaney Unavailable Unavailable [...] with bottles, extensive review with nurse and [facility], med list updated Status: Active Postmenopausal (Renamed from Postmenopausal status) (Z78.0, V49.81) Status: Active Pregnancies () Comments: 2 Status: Active S/P hysterectomy (Z90.710, V88.01) Comments: for endometrial hyperplasia 2015 Status: Active Shortness of breath (R06.02, 786.05) Status: Active Sleep apnea (G47.30, 780.57) Comments: needs repeat sleep study at [facility] per [facility] to get back on cpap [...] Caitlin Delaney Start : 29-Jul-2018 Active Ergocalciferol 89859 UNIT Oral Capsule 1 Capsule twice weekly [...] tablet daily (15 MG) Active Comments:[place] /16 31G X 5 MM Miscellaneous 1 [...] 28 {Tablet} Refills: 0 Ordered:06-Jan-2016 José Miguel CAT AND DOG BATHER, Eli [facility], Eli Lubin Start : 06-Jan-2016 End : 20-Jan-2016 Inactive AZITHROMYCIN, 250MG (Oral Tablet) 2 (two) Tablet today then 1 qd for 4 days for 0 days Quantity: 6 {Tablet} Refills: 0 Ordered:08-Dec-2012 Nunu Stephens LPN Start : 21-Nov-2012 End : 08-Dec-2012 Inactive BACTRIM DS, 800-160MG (Oral Tablet) 1 Tablet bid for 7 days Quantity: 14 {Tablet} Refills: 0 Ordered:16-May-2013 José Miguel CAT AND DOG BATHER, Eli Mej[facility]aren [facility], Elif Start : 16-May-2013 End : 23-May-2013 Inactive Cheratussin AC 100-10 MG/5ML Oral Syrup 1 Teaspoon(s) qhs prn cough for 0 days Quantity: 8 {Fluid_Ounce} Refills: 0 Ordered:16-Jun-2016 Priya Gillette Start : 12-Mar-2016 End : 16-Jun-2016 Inactive Comments:eight CIPRO, 500MG (Oral Tablet) 1 Tablet bid for 7 days Quantity: 14 {Tablet} Refills: 0 Ordered:15-Jan-2014 Banner, Eli JackieMcLaren [facility], Elif Start : 15-Jan-2014 End : 22-Jan-2014 [...] : 07-Nov-2012 End : 12-Feb-2014 Inactive Drisdol 86312 UNIT Oral Capsule 1 (one) Capsule once [...] Quantity: 90 {Tablet} Refills: 0 Ordered:23-Apr-2017 Ciesa CAT AND DOG BATHER, Eli ECjeannea JANENE, Elif Start : 23-Apr-2017 [...] : 29-Jul-2010 End : 30-Sep-2010 Inactive Nystatin 453944 UNIT/ML Mouth/Throat Suspension 4-6 Milliliter swish and [...] : 12-Dec-2015 End : 16-Jun-2016 Inactive Comments:per [facility] Topamax 100 MG Oral Tablet 1 [...] 03-Jan-2018 Inactive Comments:1 rambo as directed ZOSTAVAX, 33671LQV/0.65ML (Subcutaneous Solution Reconstituted) 1 For Solution once [...] Start : 04-Jan-2017 End : 04-Jan-2017 Discontinued Comments:[facility] FLEXERIL, 10MG (Oral Tablet) 1 (one) [...] : 13-Nov-2013 End : 13-Nov-2013 Discontinued Comments:ID [id number] Medrol 4 MG Oral Tablet Therapy Pack [...] 18-Jan-2017 End : 27-Jul-2017 Discontinued Vitamin D3 70219 UNIT Oral Tablet 1 (one) Tablet Tablet once a week for 60 days Quantity: 8 {Tablet} Refills: 0 Ordered:04-Jan-2017 Slarb CHILDHOOD DEVELOPMENT TEACHER, Naomi Start : 24-Nov-2016 End : 04-Jan-2017 [...] for Tdap vaccination (Renamed from Need for cqsuczazps-yuqumic-gkojmsgpk (Tdap) vaccine, adult/adolescent) (Z23, V06.1) Status: Inactive [...] of wound infection, PE.Not malnourishedLabs:CBCCMPPT/INRtype and screen gel(45311)EK06/10/16: no acute changesHas good social support and [...] under good control Patient to use Mucinex xfnf-qwl-fnyiryi which helped her. Status: Inactive as of [...] Completed Comments: 2000 Tubal ligation 1963 Completed [facility] Left endolymphatic sac Completed decompression with shunt and middle ear infusion with decadron 03/05 Date Value Details 01-Aug-2018 CTA Chest W/WO Contrast Result: Comments: See Note; NOTES: [facility] Imaging Services [address] [place] [address] CTA Chest W/WO Contrast MR#: [id number] Acct: [id number] Name: ELIZABETH TORO Rep #: [id number] : 1950 F 67 From: Hardeep Calix MD PCP: Eli Bowman NP Status: REG CLI Study: CTA Chest W/WO Contrast Date of Exam: 08/01/18 Exam# [id number] Ordering Dr: Eli Bowman STUDY: CTA CHEST/T [...] Service support , CC: Eli Bowman NP Atm Manager: Signed 29-Jul-2018 Chest PA and Lateral Result: Comments: See Note; NOTES: [facility] Imaging Services [address] [place] [address] Chest PA and Lateral MR#: [id number] Acct: [id number] Name: ELIZABETH TORO Rep #: [id number] : 1950 F 67 From: Cami Klein MD PCP: Eli Bowman NP Status: REG CLI Study: Chest PA and Lateral Date of Exam: 07/29/18 Exam# [id number] Ordering Dr: Eli Bowman STUDY: X-RAY CHEST [...] Service support , CC: Eli Bowman NP Atm Manager: Signed 21-Apr-2018 Downtime Report Result: Comments: See Note; NOTES: [facility] Medical Records Department [address] [place] [address] Downtime Report MR#: [id number] Acct: [id number] Name: ELIZABETH TORO Rep #: : 1950 67 From: Alon Klein PCP: Eli Bowman NP Status: REG RCR This patient was seen during an EMR downtime April 04, 2018 - April 11, 2018. This patient may have a combination of p aper and electronic documentation or all paper documentation. All documentation is viewable within the e-chart portion of [employer] for each patient visit. 12-Apr-2018 NCS and/or EMG Patient Result: Comments: See Note; NOTES: [facility] Pulmonary Services/Neurology [address] [place] [address] MR#: [id number] Acct: [id number] Name: ELIZABETH TORO Rep #: [id number] : 1950 67 From: Kal Hernandez MD Referring Dr: Eli Bowman NP Status: REG CLI Ordering Dr: Date: Location: [facility] Sex: F C NCS and/or [...] ____ Kal Hernandez MD CC: Eli Bowman BOX ATTACHER; Kal Hernandez MD Date Dictated: 04/12/18949 Date Transcribed: 04/12/18949 Atm Manager: NF Signed 01-Feb-2018 PT D/C Summary (1) Result: Comments: See Note; NOTES: [facility] Physical Therapy [facility] [address] [place] [address]. [address] [place] [address] Fax REHABILITATION SERVICES DISCHAR SUMMARY MR#: [id number] Acct: [id number] Name: ELIZABETH TORO Rep #: [id number] : 1950 67 From: Cristopher Francis PT, ATC Referring DrJose: Mayda Dobbins DO Status: REG RCR Insurance: [facility] PHYSICIAN [employer] INS [...] please feel free to call me at [phone]. Thank you for the referral of this patient. Sincerely, Cristopher Francis, PT, <Electronically signed by Andrea Francis PT, ATC> 02/01/18 0823 CC: Eli Bowman BOX ATTACHER; Mayda Dobbins DO [facility] Signed 30-Dec-2017 Inital Evaluation (1) - PT Result: Comments: See Note; NOTES: [facility] Physical Therapy [facility] [address] [place] [address]. [address] [place] [address] Fax REHABILITATION SERVICES INITIAL EVALUATION MR#: [id number] Acct: [id number] Name: ELIZABETH TORO Rep #: [id number] : 1950 67 From: Cristopher Francis PT, [...] to be FAXED BACK to us at [phone] for Medicare purposes. Please let me know if there are questions or concerns regarding this plan of care. Physician Signature: Date: <Electronically signed by Cristopher Francis PT, ATC> 12/30/17 1056 CC: Eli Bowman NP; Mayda Dobbins DO DT: 0 12/30/17 [facility] Signed For Medicare only, by signing this I certify the plan of care. Physicians Signature Date 08-Oct-2017 Operative Report Result: Comments: See Note; NOTES: [facility] Medical Records Department [address] [place] [address] Operative Report 10/08/172017 MR#: [id number] Acct: [id number] Name: XAVIER TORO LEILANI Schaefer Rep #: [id number] : 1950 67 From: Oscar Winston MD PCP: Eli Bowman NP Status: REG [facility] Y Location: [place] [address] Problem List (1) Intrinsic (urethral) sphincter deficiency [...] [facility] Medical Records Department [address] [place] [address] Instructions for Home/Discharge Instructions 10/08/171950 MR#: [id number] Acct: [id number] Name: ELIZABETH TORO Rep #: [id number] : 1950 67 From: Oscar Winston MD PCP: Eli Bowman NP Status: REG MSC Discharge Diet: Light diet - advance as [...] Note; NOTES: [facility] Imaging Services [address] [place] [address] Chest PA and Lateral MR#: [id number] Acct: [id number] Name: ELIZABETH TORO Rep #: [id number] : 1950 F 67 From: Yury Arthur MD PCP: Eli Bowman Status: REG CLI Study: Chest PA and Lateral Date of Exam: 08/30/17 Exam# [id number] Ordering Dr: Mayda Dobbins DO STUDY: X-RAY [...] , CC: Eli Bowman; Mayda Dobbins DO Atm Manager: Signed 20-Jul-2017 L/S Spine Min 4 Views Result: Comments: See Note; NOTES: [facility] Imaging Services [address] [place] [address] L/S Spine Min 4 Views MR#: [id number] Acct: [id number] Name: ELIZABETH TORO Rep #: [id number] : 1950 F 66 From: Dionte Lujan DO PCP: Eli Bowman Status: REG CLI Study: L/S Spine Min 4 Views Date of Exam: 07/20/17 Exam# [id number] Ordering Dr: Edita Cabral MD STUDY: X-RAY [...] Fax CC: Eli Bowman; Edita Cabral MD Atm Manager: Signed 20-Jul-2017 Shoulder min 2 Views Result: Comments: See Note; NOTES: [facility] Imaging Services [address] [place] [address] Shoulder min 2 Views MR#: [id number] Acct: [id number] Name: ELIZABETH TORO Rep #: [id number] : 1950 F 66 From: Dionte Lujan DO PCP: Eli Bowman Status: REG CLI Study: Shoulder min 2 Views Date of Exam: 07/20/17 Exam# [id number] Ordering Dr: Edita Cabral MD STUDY: X-RAY - RIGHT [facility] REASON FOR EXAM: Female, 66 years [...] , CC: Eli Bowman; Edita Cabral MD Atm Manager: Signed 11-May-2017 PT D/C Summary (1) Result: Comments: See Note; NOTES: [facility] Physical Therapy [facility] [address] [place] [address] Fax REHABILITATION SERVICES DISCHAR GE SUMMARY MR#: [id number] Acct: [id number] Name: ELIZABETH TORO Rep #: [id number] : 1950 66 From: Naomi Osorio MPT [...] please feel free to call me at [phone]. Thank you for the referral of this patient. Sincerely, Naomi Osorio <Electronically signed by Naomi Osorio MPT> 09/17 0919 CC: Nunu Root; Eli Bowman Signed 14-Apr-2017 Inital Evaluation (1) - PT Result: Comments: See Note; NOTES: [facility] Physical Therapy [facility] [address] [place], [place] [address] Fax REHABILITATION SERVICES INITIAL EVALUATION MR#: [id number] Acct: [id number] Name: ELIZABETH TORO Rep #: [id number] : 1950 66 From: Naomi COMER Referring [...] to be FAXED BACK to us at [phone] for Medicare purposes. Please let me know [...] NOTES: [facility] Imaging Services [address] [place] [address] Shaddadamian 4d Knee 4 or More Views MR#: [id number] Acct: [id number] Name: ELIZABETH TORO p #: [id number] : 1950 F 66 From: Chalino Mancia MD PCP: Eli Bowman Status: REG CLI Study: Knee 4 or More Views Date of Exam: 04/08/17 Exam# [id number] Ordering Dr: Mayda Dobbins DO STUDY: X-RAY [...] , CC: Eli Bowman; Mayda Dobbins DO Atm Manager: Signed 08-Apr-2017 Knee 4 or More Views Result: Comments: See Note; NOTES: [facility] Imaging Services [address] [place] [address] Verdana 4d Knee 4 or More Views MR#: [id number] Acct: [id number] Name: ELIZABETH TORO p #: [id number] : 1950 F 66 From: Chalino Mancia MD PCP: Eli Bowman Status: REG CLI Study: Knee 4 or More Views Date of Exam: 04/08/17 Exam# [id number] Ordering Dr: Mayda Dobbins DO STUDY: X-RAY [...] , CC: Eli Bowman; Mayda Dobbins DO Atm Manager: Signed 15-Mar-2017 Sleep Study Report Result: Comments: See Note; NOTES: [facility] SLEEP DISORDER CENTER [address] [place] [address] Polysomnography with NCPAP MR#: [id number] Acct: [id number] Name: ELIZABETH TORO Viridiana p #: [id number] : 1950 66 From: Kal Hernandez MD [...] version). Please note that a reference to [facility] AHI in this report is consistent with the current Hypopnea definition according to Medicare Criteria and an AAS AHI reference is consistent with the current Hypopnea defini tion according to the AASM criteria and is recognized by [facility] as the RDI. PROCEDURE: The study was attended continuously by a telemetry technician. Monitored parameters included left and right [...] body mass index of 30.9 and an Menlo Sleepiness Scale score of 6. There is [...] can be requested. Kal Hernandez MD T: [facility] JOB: [id number] CC: Kal Hernandez MD 1151 1151 03/15/17 1451 <Electronically signed by Kal Hernandez MD> Date Kal Hernandez MD Co-signature (if applicable) Date Signed 05-Jan-2017 Esophagus Only Result: Comments: See Note; NOTES: [facility] Imaging Services [address] [place] [address] Ale 4d Esophagus Only MR#: [id number] Acct: [id number] Name: ELIZABETH TORO Rep #: [id number] : 1950 F 66 From: Gabriela Ragland MD PCP: Eli Bowman Status: REG CLI Study: Esophagus Only Date of Exam: 01/05/17 Exam# [id number] Ordering Dr: Sofia Bragg MD STUDY: AIR-CONTRAST [...] at 8:43 EST Tel , Service support [phone], CC: Eli Bowman; Sofia Bragg MD Atm Manager: Signed 29-Dec-2016 Emergency Department Summary Result: Comments: See Note; NOTES: [facility] Medical Records Department [address] [place] [address] Emergency Department Summary MR#: [id number] Acct: [id number] Name: XAVIER TORO Rep #: [id number] : 1950 66 From: Sofia Bragg MD PCP: Eli Bowman Status: DEP ER DATE OF SERVICE: 12/29/2016 CHIEF COMPLAINT: Sore throat. HISTORY OF PRESENT ILLNESS: This is a 66-year- old woman that states she was at [employer], choked on a piece of potato 5 [...] the case with Dr. Pena who is foundation digger for GI and he suggested ordering an [...] C: Eli Pena MD T: [facility] JOB: [id number] 12/29/16 <Electronically signed by Sofia Bragg MD> Date Sofia Bragg MD Cosigner Signature (If Indicated): Date CC: Eli Bowman; Junior Pena Date Dictated: 12/29/161828 Date Transcribed: 12/29/161828 Atm Manager: Signed 29-Dec-2016 Discharge Instruction Result: Comments: See Note; NOTES: [facility] Medical Records Department [facility] [place] [address] Discharge Instruction 12/29/161829 MR#: [id number] Acct: [id number] Name: ELIZABETH TORO Rep #: [id number] : 1950 66 From: Sofia Bragg MD [...] problems, contact your Primary Care Provider. Call [facility] ([phone] ) or report to the closest Emergency Room. Call 911 if necessary. 12/29/161832 <Electronically signed by Sofia Bragg MD> Date Sofia Siddiqui Signature (If Indicated): Date CC: Eli Bowman 07-Aug-2016 Sleep Study Report Result: Comments: See Note; NOTES: [facility] SLEEP DISORDER CENTER [address] [place] [address] Split Night Sleep Study MR#: [id number] Acct: [id number] Name: ELIZABETH TORO Rep #: [id number] : 1950 65 From: Kal Hernandez MD [...] version). Please note that a reference to [facility] AHI in this report is consistent with the current Hypopnea definition according to Medicare Criteria and an AAS AHI reference is consistent with the current Hypopnea defin ition according to the AASM criteria and is recognized by [facility] as the RDI. PROCEDURE: The study was attended continuously by a telemetry technician. Monitored parameters included left and right [...] a body mass index of 29.3 and [place] Sleepiness Scale score of 2. There is [...] humidity. Kal Hernandez MD T: [facility] JOB: [id number] CC : Kal Hernandez MD 1144 1144 08/07/16 0959 <Electronically signed by Kal Hernandez MD> Date Kal Hernandez MD Co-signature (if applicable) Date Signed -Aug-2016 Kidney and Bladder Result: Comments: See Note; NOTES: [facility] Imaging Services [address] [place] [address] Verdana 4d Kidney and Bladder MR#: [id number] Acct: [id number] Name: JAYYELIZABETH A Rep #: [id number] : 1950 F 65 From: Anibal Lan MD PCP: Donnie Gonzales Status: [facility] CLI Study: Kidney and Bladder Date of Exam: 08/04/16 Exam# [id number] Ordering Dr: Beto Henry MD UDY: RENAL [...] Anibal Lan MD at 11:16 EDT Tel [phone], Service support [phone], CC: Soumya Henry M.D.; Donnie Gonzales Atm Manager: Signed 23-Jun-2016 Operative Report Result: Comments: See Note; NOTES: [facility] Medical Records Department [address] [place] [address] Operative Report MR#: [id number] Acct: [id number] Name: ELIZABETH TORO Rep #: [id number] : 1950 65 From: Gm Brush MD PCP: Donnie Gonzales Status: REG [facility] DATE OF SERVICE: 06/22/2016 DATE OF PROCEDURE: June 22, 2016 SURGEON: Gm Brush M.D. SLAB DEPILER OPERATOR: Lia jacinto. ANESTHESIA: Gem Shelby and [...] ovaries. Gm Brush MD T: [facility] JOB: [id number] 06/23/16 0725 <Electronically signed by Gm Brush MD> Date __ Gm Brush MD Cosigner Signature (If Indicated): Date CC: Gm Brush MD; Donnie Nolasco Dicta nahed: 06/22/161102 Date Transcribed: 06/22/161102 Atm Manager: Signed 22-Jun-2016 Discharge Instruction Result: Comments: See Note; NOTES: [facility] Medical Records Department [address] [place] [address] Instructions for Home/Discharge Instructions 06/22/16 0904 MR#: [id number] Acct: [id number] Name: ELIZABETH TORO Rep #: [id number] : 1950 65 From: Gm Brush MD PCP: Donnie Gonzales Status: REG [facility] Discharge Diet: No Restrictions Discharge Activity: [...] CC: Donnie Gonzales 10-Jun-2016 ELECTROCARDIOGRAM, COMPLETE (ECG) (22257) Result: [MEASUREMENTS ANALYSIS] Date of Test: 06/10/2016 09:39:53; Heart Rate: 58; AL Interval: 208; QRS: 86; QT Interval: 480; Corrected QT Interval (QTc): 477; P Wave [place]: 45; QRS Wave [place]: 11; T Wave [place]: 23; Blood Pressure: 112/70 [ECG DIAGNOSTIC STATEMENTS] Date of Test: 06/10/2016 09:39:53; Summary: Sinus Bradycardia - Negative T-waves -May be normal - possible Anteroseptal ischemia. BORDERLINE 13-Apr-2016 Operative Report Result: Comments: See Note; NOTES: [facility] Medical Records Department [address] [place] [address] Operative Report MR#: [id number] Acct: [id number] Name: XAVIER TORO Rep #: [id number] : 1950 65 From: Gm Brush MD PCP: Edita Cabral MD Status: [facility] DATE OF SERVICE: 04/13/2016 DATE OF [...] curettings. Gm Brush MD T: NTS JOB: [id number] 04/13/16 1838 <Electronically signed by Gm Brush MD> Date Gm Brush MD Cosigner Signature (If Indicated): Date CC: Edita Young; Gm Brush MD Date Dictated: 04/13/16 1031 Date Transcribed: 04/13/161030 Atm Manager: Signed 13-Apr-2016 Discharge Instruction Result: Comments: See Note; NOTES: [facility] Medical Records Department [address] [place] [address] Instructions for Home/Discharge Instructions 04/13/16 1003 MR#: [id number] Acct: [id number] Name: ELIZABETH TORO Rep #: [id number] : 1950 65 From: Gm Brush MD [...] mg PO DAILY 04/10/16 Hydrocodone Bitart/Apap 5-325 [[place] 5MG-325MG] 1 tablet PO Q4H PRN PRN #10 tablet 04/13/16 The followi ng prescriptions were given: Hydrocodone Bitart/Apap 5-325 [[place] 5MG-325MG] 1 tablet PO Q4H PRN PRN #10 tablet PRN Reason: Mod-Severe Pain () Please Follow Up With: Gm Brush When: 2-3 jason bowers 04/13/16 1004 <Electronically signed by mG Brush MD> Date Gm Brush MD CC: Edita Cabral MD 22-Mar-2016 Emergency Department Summary Result: Comments: See Note; NOTES: [facility] Medical Records Department [address] [place] [address] Emergency Department Summary MR#: [id number] Acct: [id number] Name: ELIZABETH TORO Rep #: [id number] : 1950 65 From: Nanod Fuller MD PCP: Edita Cabral MD Status: [...] C: Edita Brush MD T: NTS JOB: [id number] 03/22/16 0247 <Electronically signed by Nando Fuller MD&a mp;#62; Date Nando Fuller MD Cosigner Signature (If Indicated): Date CC: Edita Cabral MD; Otilia Brush MD Date Dictated: 03/21/1650 Date Transcribed: 03/21/1650 Atm Manager: Signed 21-Mar-2016 Discharge Instruction Result: Comments: See Note; NOTES: [facility] Medical Records Department [address] [place] [address] Discharge Instruction 03/21/168 MR#: [id number] Acct: [id number] Name: ELIZABETH TORO Rep #: [id number] : 1950 65 From: Nando Fuller MD [...] ems, contact your doctor. Call [facility] ([phone]) or report to the closest Emergency Room. Call 911 if necessary. 03/21/16 0049 <Electronically signed by Nando Fuller MD&#6 2; Date Nando Fuller MD Cosigner Signature (If Indicated): Date CC: Edita Cabral MD 20-Mar-2016 Transvaginal Non- Result: Comments: See Note; NOTES: [facility] Imaging Services [address] [place] [address] Verdana 4d Transvaginal Non- MR#: [id number] Acct: [id number] Name: ELIZABETH DIAZ Rep #: [id number] : 1950 F 65 From: Jose Fu PCP: Edita Cabral MD Status: [facility] ER Study: Transvaginal Non- Date of Exam: 03/20/16 Exam# [id number] Ordering Dr: Oz Fuller MD STUDY: ULTRASOUND [...] DO at 0:42 EDT , Service support [phone], Fax CC: Edita Cabral MD; Nando Fuller MD Atm Manager: Signed 25-Feb-2016 Esophagus Only Result: Comments: See Note; NOTES: [facility] Imaging Services [address] [place] [address] Verdana 4d Esophagus Only MR#: [id number] Acct: [id number] Name: XAVIER TORO Rep #: [id number] : 1950 F 65 From: Anibal Lan MD PCP: Edita Cabral MD Status: REG CLI Study: Esophagus Only Date of Exam: 02/25/16 Exam# [id number] Ordering Dr: Donnie Gonzales STUDY: X-RAY - [...] Anibal Lan MD at 10:35 EDT Tel [phone], Service support [phone], Fax RAD/Esophagus Only IMPRESSION: Normal plain film x-ray examination (barium swallow) of the esophagus. Electronically Signed: Anibal Lan MD at 10: 35 EDT Tel [phone], Service support [phone], CC: Edita Cabral MD; Donnie Gonzales Atm Manager: Signed 25-Feb-2016 Esophagus Only Result: Comments: See Note; NOTES: [facility] Imaging Services [address] [place] [address] Verdana 4d Esophagus Only MR#: [id number] Acct: [id number] Name: XAVIER TORO Rep #: [id number] : 1950 F 65 From: Anibal Lan MD PCP: Edita Cabral MD Status: REG CLI Study: Esophagus Only Date of Exam: 02/25/16 Exam# [id number] Ordering Dr: Donnie Gonzales ADDENDUM by Anibal Lan MD on 03/31/16 at 0747 ADDENDUM This is an addendum report for PQRS purposes. 19 images were obtained. Electronically Signed: Anibal Lan MD at 7:47 EDT Tel [phone], Service support [phone], 03/31/16 0747 Date cc: Edita Cabral MD; [...] Anibal Lan MD at 10:35 EDT Tel [phone], Service support [phone], RAD/Esophagus Only IMPRESSION: Normal plain film x-ray examination (barium swallow) of the esophagus. Electronically Signed: Anibal Lan MD at 10:35 EDT Tel [phone], Service support [phone], CC: Edita Cabral MD; Donnie Gonzales Atm Manager: Signed 10-Dec-2015 12 Lead Electrocardiogram Result: Comments: See Note; NOTES: [facility] Cardiovascular Services [address] [place] [address] 12 Lead EKG 12/08/15 1551 MR#: [id number] Acct: [id number] Name: ELIZABETH DASILVA Rep #: [id number] : 1950 65 From: Francisco Muller MD [...] ECG Confirmed by FRANCISCO MULLER MD ([id number]), deputy editor in chief ZUNILDA KLEIN ([id number]) on 12/10/2015 9:33:10 AM Referred By: ROMEL Confirmed By:FRANCISCO MULLER MD 12/10/15 0933 Date ___ Francisco Muller MD CC: Edita Cabral MD Date Dictated: 12/08/15 155 Date Transcribed: 12/08/151550 Atm Manager: Signed 10-Dec-2015 Emergency Department Summary Result: Comments: See Note; NOT[facility]: [facility] [facility] Medical Records Department [address] [place] [address] Emergency Department Summary MR#: [id number] Acct: [id number] Name: ELIZABETH TORO Rep #: [id number] : 1950 65 From: Sisi Severino MD [...] C: Edita Cabral MD T: NTS JOB: [id number] 12/10/15 0232 <Electronically deepti d by Sisi Severino MD> Date Sisi Severino MD Cosigner Signature (If Indicated): Date C C: Edita Cabral MD Date Dictated: 12/08/151705 Date Transcribed: 12/08/151705 Atm Manager: Signed 08-Dec-2015 Discharge Instruction Result: Comments: See Note; NOTES: [facility] Medical Records Department [address] [place] [address] Discharge Instruction 12/08/15 1659 MR#: [id number] Acct: [id number] Name: ELIZABETH TORO Rep #: [id number] : 1950 65 From: Sisi Severino MD [...] unexp ected problems, contact your doctor. Call [facility] ([phone]) or report to the closest Emergency Room. Call 911 if necessary. 12/08/15 1701 <Electronically signed by Sisi young MD> Date Sisi Severino MD Cosigner Signature (If Indicated): Date CC: Edita Cabral MD 08-Dec-2015 Chest PA and Lateral Result: Comments: See Note; NOTES: [facility] Imaging Services [address] [place] [address] Verdana 4d Chest PA and Lateral MR#: [id number] Acct: [id number] Name: ELIZABETH TORO Rep #: [id number] : 1950 F 65 From: Malaika Diana MD PCP: Edita Cabral MD Status: REG ER Study: Chest PA and Lateral Date of Exam: 12/08/15 Exam# [id number] Ordering Dr: Sisi Severino MD STUDY: X-RAY [...] MD at 16:41 EST , Service support [phone], RAD/Chest PA and Lateral IMPRESSION: No acute disease is demonstrated. Electronic ally Signed: Malaika Diana MD at 16:41 EST , Service support [phone], CC: Edita Cabral MD; Sisi Severino MD Atm Manager: Signed 16-Sep-2015 EKG (23735) Result: [MEASUREMENTS ANALYSIS] Date of Test: 09/16/2015 09:46:37; Heart Rate: 74; AL Interval: 192; QRS: 88; QT Interval: 406; Corrected QT Interval (QTc): 430; P Wave [place]: 28; QRS Wave [place]: -3; T Wave [place]: -1; Blood Pressure: 104/60 [ECG DIAGNOSTIC STATEMENTS] Date of Test: 09/16/2015 09:46:37; Summary: Sinus Rhythm Low voltage in precordial leads. - Nonspecific T-abnormality. ABNORMAL 11-Feb-2015 Kidney and Bladder Result: Comments: See Note; NOTES: [facility] Imaging Services [address] [place] [address] Ultrasound Report MR#: [id number] Acct: [id number] Name: ELIZABETH TORO Rep #: [id number] : 1950 F 64 From: Mina Caed MD PCP: Edita Cabral MD Status: REG CLI Study: Kidney and Bladder Date of Exam: 02/11/15 Exam# [id number] Ordering Dr: Edita Cabral MD STUDY: RE [...] MD at 23:11 EDT , Service support [phone], CC: Edita Cabral MD Atm Manager: Signed 24-Jul-2014 PT Discharge Summary Result: Comments: See Note; NOTES: [facility] Physical Therapy [facility] [address] [place] [address] [address] [place], [place] [address] Fax REHABILITATION SERVICES DISCHARGE SUMMARY MR#: [id number] Acct: [id number] Name: ELIZABETH TORO Rep #: [id number] : 1950 63 From: Namoi Osorio Referring Dr.: Edita Cabral MD Status: [...] clinic. Naomi Osorio, PT T: NTS JOB: [id number] <Electronically signed by Faraz Osorio > 07/24/14 4910 CC: Signed 15-Jun-2014 PT Discharge Summary Result: Comments: See Note; NOTES: [facility] Physical Therapy [facility] [address] [place] [address] [address] [place], [place] [address] Fax REHABILITATION SERVICES DISCHARGE SUMMARY MR#: [id number] Acct: [id number] Name: ELIZABETH TORO Rep #: [id number] : 1950 63 From: Naomi Osorio Referring [...] Sincerely, Naomi Osorio, PT T: NTS JOB: [id number] <Electronically signed by Naomi Osorio & amp;#62; 06/15/14 1410 CC: Signed 25-May-2014 Inital Evaluation - PT Result: Comments: See Note; NOTES: [facility] Physical Therapy [facility] [address] [place] [address]. [address] [place], [place] [address] Fax REHABILITATION SERVICES INITIAL EVALUATION MR#: [id number] Acct: [id number] Name: ELIZABETH TORO Rep #: [id number] : 1950 63 From: Naomi Osorio Referring Dr.: Edita Cabral MD Status: REG RCR Insurance: [facility] Eval Date: PHYSICIAN [...] anterolateral shoulder. She is right-handed. 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 Naomi Osorio, PT T: NTS JOB: [id number] <Electronically signed by Naomi Osorio > 4 1241 CC: Signed For Medicare only, by signing this I certify the plan of care. Physicians Signature Date 23-May-2014 Nuclear Stress Test - Chemical Result: Comments: See Note; NOTES: [facility] Imaging Services [address] [place] [address] Nuclear Medicine Report MR#: [id number] Acct: [id number] Name: ELIZABETH TORO Rep #: [id number] : 1950 F 63 From: Tano Nielsen MD PCP: Edita Cabral MD Status: REG CLI Study: Nuclear Stress Test - Chemical Date of Exam: 05/23/14 Exam# [id number] Ordering Dr: Álvaro Cabral MD EXERCISE TOLERANCE [...] LVEF of 61%. CC: Edita Cabral MD Atm Manager: SHEKHAR Signed 14-May-2014 Shoulder min 2 Views Result: Comments: See Note; NOTES: [facility] Imaging Services [address] [place] [address] Radiology Report MR#: [id number] Acct: [id number] Name: ELIZABETH TORO Rep #: [id number] : 1950 F 63 From: Hardeep Dumont MD PCP: Erna Kingston DO Status: REG CLI Study: Shoulder min 2 Views Date of Exam: 05/14/14 Exam# [id number] Ordering Dr: Edita Cabral MD STUDY: X-RAY [...] Silvio Dumont MD at 12:18 EDT , Exterityi ce support [phone], CC: Edita Cabral MD; Erna Kingston DO Atm Manager: Signed 30-Apr-2014 CTA Chest W/WO Contrast Result: Comments: See Note; NOTES: [facility] Imaging Services [address] [place] [address] CAT Scan Report MR#: [id number] Acct: [id number] Name: ELIZABETH TORO Rep #: [id number] : 1950 F 63 From: Hardeep Calix MD PCP: Erna Kingston DO Status: REG CLI Study: CTA Chest W/WO Contrast Date of Exam: 04/30/14 Exam# [id number] Ordering Dr: Erna Kingston DO STUDY: CTA [...] at 19 :01 EDT , Service support [phone], CC: Erna Kingston DO Atm Manager: Signed Family History Unknown Family Member Name [...] kg/m2 Body Surface Area Calculated 1.91 m2 54-Aqm-855238:07 Pulse 73 /min Comments: Pattern: Regular Respiration [...] kg/m2 Body Surface Area Calculated 1.96 m2 28-Feq-880629:01 Temperature 98.1 f Comments: Method: Oral Pulse [...] 0.00 cm Results Date Description Value Details 2-Xlv-999276:57 CREATININE FINGERSTICK Comments: [facility] [address] [place] [address] EGFR WB 55.0000 mL/min (Abnormal) CREATININE WB 1.1 mg/dL (Abnormal) Range: 0.55-1.02 32-Leo-321159:19 D-Dimer (89226) Comments: PATIENT NOT FASTINGPERFORMED BY: EMIL FAMOCOcassidy StoutUNC Hospitals Hillsborough Campus [id number] D-Dimer 0.57 {mg/L_FEU} (Abnormal) Range: 0.00-0.49 Comments: According to the assay farmworker livestock's published package insert, anormal (<0.50 mg/L FEU) D-dimer result in conjunction with a non-highclinical probability assessment, excludes deep vein thrombosis (D VT)and pulmonary embolism (PE) with high sensitivity. .D-dimer values increase with age and this can make VTE exclusion ofan older pop ulation difficult. To address this, the [employer], based on best available evidence [...] and an80 year old 0.80 mg/L FEU. 07-Bwg-417140:19 Troponin I (48538) Comments: PATIENT NOT FASTINGPERFORMED BY: [facility]6370 [facility] [id number] Troponin I <0.01 ng/mL (Normal) Range: 0.00-0.04 26-Hhy-944519:19 CPK MB FRACTION (03076) Comments: PATIENT NOT FASTINGPERFORMED BY: [facility]6370 [facility] [id number] Creatine Kinase (CK), MB 2.5 ng/mL (Normal) Range: 0.0-5.3 98-Yxk-776122:19 CREATINE KINASE TOTAL (19899) Comments: PATIENT NOT FASTINGPERFORMED BY: [facility]6370 [facility] [id number] Creatine Kinase,Total 103 U/L (Normal) Range: 24-173 :16 CBC-Complete Blood Cnt No Diff Comments: [facility] [address] [place], [place], [id number] MPV 10.5 fL (Normal) Range: 6.2-12.0 PLT [...] Range: 4.4-11.0 :16 Microalb:Creat Ratio,Random UR Comments: [facility] [address] [place], [place], [address] MALB:CREAT Test not performed {mg/g_CRE} (Normal) MICROALBUMIN,UR < 5.0 mg/L (Normal) UR CREAT < 13.00 mg/dL (Normal) :16 PTHIN 51.5 pg/mL (Normal) Comments: [facility] [address] [place], [id number] Range: 18.4-80.1 :16 Renal Profile Comments: [facility] [address]elsviiv[address] [place], [id number] CO2 28.0 mmol/L (Normal) Range: 21.0-32.0 CL [...] Comments: Please note revised GLUCOSE reference range zrirtwybu15/02/2018. 30-Vkv-76793:16 Vitamin D,25 Hydroxy Comments: [facility] [address] [place], [address] Vitamin D 25-OH 69.4 ng/mL (Normal) Range: 29.95-100.01 Comments: Vitamin D 25(OH) Status Range Deficiency <20 ng/mL (50nmol/L) Insuffciency 20 - 30 ng/mL (50 - 75 nmol/L) Sufficiency 30 - 100 ng/mL (75 - 250 nmol/L) Toxicity >100 ng/mL (>250 nmol/L) :04 HgA1C , Office (93354) HgA1C , Office 5.5 % (Normal) Range: 4.6 - 7.1 :23 CALCIFEDIOL (03854) Comments: PATIENT WAS FASTINGPERFORMED BY: [facility]6370 [facility] [id number] Vitamin D, 25-Hydroxy 43.2 ng/mL (Normal) Range: 30.0-100.0 Comments: Vitamin D deficiency has been defined by the [place] ofMedicine and an Endocrine Society practice guideline as alevel of serum 25-OH vitamin D less than 20 ng/mL (1,2).The Endocrine Society went on to further define vitamin Dinsufficiency as a level between 21 and 29 ng/mL (2).1. IOM ([place] of Medicine). 2010. Dietary reference intakes for calcium and D. [place]: The National Academies Press.2. Azael MF, Leslee NC, Hillary PHILLIPS, et al. Evaluation, treatment, and prevention of vitamin D deficiency: an Endocrine Society clinical practice guideline. JCEM. 2010; 96(7):1911-30. :23 CBC, Platelets & Auto Diff Comments: PATIENT WAS FASTINGPERFORMED BY: LabCoTrenton Psychiatric HospitalIbudxm8454 [facility] [id number] (78052) Immature Grans (Abs) 0.0 {x10E3/uL} (Normal) Range: [...] 3.77-5.28 WBC 7.1 {x10E3/uL} (Normal) Range: 3.4-10.8 03-Pxr-12830:23 Metabolic Panel, Comprehensive Comments: PATIENT WAS FASTINGPERFORMED BY: LabCoTrenton Psychiatric HospitalUazwru5269 [facility] [id number] (79394) ALT (SGPT) 15 [iU]/L (Normal) Range: 0-32 [...] Glucose, Serum 82 mg/dL (Normal) Range: 65-99 66-Flt-76801:23 MICROALBUMIN: CREATININE RATIO Comments: PATIENT WAS FASTINGPERFORMED BY: FOCUS RESEARCH Rocket.LaCape Fear Valley [facility] Hospital [id number] (79119) AND (77230) Alb/Creat Ratio <5.6 {mg/g_creat} (Normal) Range: 0.0-30.0 Albumin, Urine <3.0 ug/mL (Normal) Creatinine, Urine 53.5 mg/dL (Normal) 86-Ovy-150963:31 Metabolic Panel, Basic Comments: PATIENT NOT FASTINGPERFORMED BY: Sonda41[facility] [id number] (33916) Calcium, Serum 9.9 mg/dL (Normal) Range: 8.7-10.3 [...] (Normal) Range: 65-99 :55 HgA1C , Office (15224) Comments: 5.5 HgA1C , Office 5.5 % (Normal) Range: 4.6 - 7.1 9-Iic-535872:22 VITAMIN B12 AND FOLATES Comments: today; PATIENT NOT FASTINGPERFORMED BY: Tyromer MonkTeleSign CorporationCape Fear Valley H[facility] Hospital [id number] (94360) Folate (Folic Acid), Serum >20.0 ng/mL (Normal) Comments: A serum folate concentration of less than 3.1 ng/mL isconsidered to represent clinical deficiency. Vitamin B12 655 pg/mL (Normal) Range: 232-1245 Comments: Please note reference interval change :58 CALCIFEDIOL (19615) Comments: PATIENT NOT FASTINGPERFORMED BY: Darby Smart Qiudct0939 [address] [place] [id number] Vitamin D, 25-Hydroxy 25.2 ng/mL (Abnormal) Range: 30.0-100.0 Comments: Vitamin D deficiency has been defined by the [place] ofMedicine and an Endocrine Society practice guideline as alevel of serum 25-OH vitamin D less than 20 ng/mL (1,2).The Endocrine Society went on to further define vitamin Dinsufficiency as a level between 21 and 29 ng/mL (2).1. IOM ([place] of Medicine). 2010. Dietary reference intakes for calcium and D. [place]: The National Academies Press.2. Azael MF, Leslee NC, Hillary PHILLIPS, et al. Evaluation, treatment, and prevention of vitamin D deficiency: an Endocrine Society clinical practice guideline. JCEM. 2010; 96(7):1911-30. 52-Uxw-244340:58 TSH (THYROID STIMULATING Comments: PATIENT NOT FASTINGPERFORMED BY: Dash Hudson [facility] Yfnrze3934 Monk [facility] HospitalDublin [place] [id number] HORMONE) (83813) TSH 2.410 {uIU/mL} (Normal) Range: 0.450-4.500 :58 CBC WITH MANUAL DIFF (86817) Comments: PATIENT NOT FASTINGPERFORMED BY: CB [facility] Wgkuol9269 Monk [facility] HospitalDublin [place] [id number] Immature Grans (Abs) 0.0 {x10E3/uL} (Normal) Range: [...] 3.77-5.28 WBC 7.7 {x10E3/uL} (Normal) Range: 3.4-10.8 80-Szu-321736:58 Metabolic Panel, Comprehensive Comments: PATIENT NOT FASTINGPERFORMED BY: LabCoTrenton Psychiatric HospitalBfdmbb3076 [facility] [id number] (62182) ALT (SGPT) 13 [iU]/L (Normal) Range: 0-32 [...] Glucose, Serum 90 mg/dL (Normal) Range: 65-99 1-Qfr-694503:07 Bedside Glucose Comments: [facility] LaboratoryPoint [facility] [address] [place] [address] BEDSIDE GLU 100 mg/dL (Normal) Range: 70-110 Comments: MANAGEMENT OF PATIENT CARE PER NURSING PROTOCOL 46-Jhf-246973:14 D-Dimer Quantitative (DVT/PE) Comments: Order Date: 08/30/17Order Info: [id number] - [facility]-DIMERWHolzer Hospital Gntxkryqyf[address] [place], [place], [address] D-DIMER QUANT 0.35 {FEU/ug/m} (Normal) Range: 0.27-0.49 Comments: NORMAL D-Dimer level (<0.50) indicates no DVT or PE. 99-Zeq-744978:44 Blood Glucose , Office (58206) Blood Glucose , 129 (Normal) Office :2 Request Problem Final report Comments: PATIENT NOT FASTINGPERFORMED BY: nviteCorp Moprdk1617 KmsocialUNC Hospitals Hills[facility] Campus [id number] Information: MOUTH SRC:MO 1 (Normal) Comments: Inappropriate source for anaerobic culture. A routine aerobic culturewas initiated. Contact the Microbiology Lab for further information. :2 Test Code Change SPRCS (Normal) Comments: PATIENT NOT FASTINGPERFORMED BY: Dash Hudson [facility] Works[employer]are [facility] [id number] 1 Comments: Please note that the Microbiology test code was changed to reflectthe specimen source or transport received. :21 Upper Respiratory Culture Comments: PATIENT NOT FASTINGPERFORMED BY: [facility]6370 [facility] [id number] Result 1 RRF (Normal) Comments: Routine respiratory duyen Upper Respiratory Culture Final report (Normal) 46-Mpk-947163:59 Metabolic Panel, Comprehensive Comments: Jul 2017; PATIENT NOT FASTINGPERFORMED BY: [facility]6370 [facility] [id number] (79332) ALT (SGPT) 16 [iU]/L (Normal) Range: 0-32 [...] Glucose, Serum 80 mg/dL (Normal) Range: 65-99 67-Sca-712349:59 MAGNESIUM (43237) Comments: today; PATIENT NOT FASTINGPERFORMED BY: [facility] Rwowcb5987 [facility] [id number] Magnesium, Serum 2.2 mg/dL (Normal) Range: 1.6-2.3 :04 Blood Glucose , Office (97796) Blood Glucose , Office 111 (Normal) :04 HgA1C , Office (82574) HgA1C , Office 5.5 % (Normal) Range: 4.6 - 7.1 :03 CBC W/Diff, Automated Comments: [facility] It[address]gvf[address] [place], [place], [address] ; another doc Absolute Lymph 2.35 {X10_3/ul} [...] (Normal) Range: 4.4-11.0 :03 Protein+Creatinine Ratio,Urine Comments: [facility] Nmdibvqddg[address] [place], [address] PROT:CRE RATIO 403 {mg/g_CRE} (Abnormal) Range: 0-200 PROTEIN,UR.RAN. < 6.0 mg/dL (Normal) UR CREAT 13.90 mg/dL (Normal) :03 PTH,INTACT Comments: [facility] [address] [place], [address] PTH,Intact 34 pg/mL (Normal) Range: 14-72 :03 Renal Profile Comments: [facility] Jcbpmnvwex[address] [place], [id number] CO2 26.0 mmol/L (Normal) Range: 21.0-32.0 CL [...] report for address and phone number VITD 77226 48.5 pg/mL (Normal) Range: 19.9-79.3 Comments: Performed at: [address] [id number] Director: Navdeep Medley MD, Phone: [phone] 04-Wdo-624476:06 Metabolic Panel, Comprehensive Comments: PATIENT NOT FASTINGPERFORMED BY: Darby Smart Fyrtrn8074 BridgeC[facility] [id number] (04001) ALT (SGPT) 11 [iU]/L (Normal) Range: 0-32 [...] Glucose, Serum 78 mg/dL (Normal) Range: 65-99 00-Lly-952381:06 CBC, Platelets & Auto Diff Comments: PATIENT NOT FASTINGPERFORMED BY: Darby Smart Wwgdhn1864 Monk [facility] [id number] (24429) Immature Grans (Abs) 0.0 {x10E3/uL} (Normal) Range: [...] 3.77-5.28 WBC 9.3 {x10E3/uL} (Normal) Range: 3.4-10.8 81-Prl-228542:06 TSH (48244) Comments: PATIENT NOT FASTINGPERFORMED BY: [facility] Rkwqwh6164 Lacho [facility] [id number] TSH 3.080 {uIU/mL} (Normal) Range: 0.450-4.500 16-Asi-709419:56 HgA1C , Office (00921) HgA1C , Office 5.5 % (Normal) Range: 4.6 - 7.1 06-Cpe-165773:56 Blood Glucose , Office (70292) Blood Glucose , Office 81 (Normal) 31-Dec-20168:09 LIPID PANEL (08537) Comments: PATIENT WAS FASTINGPERFORMED BY: [facility]6370 [facility] [id number] LDL/HDL Ratio 2.0 {ratio_units} (Normal) Range: 0.0-3.2 [...] PANEL, COMPREHENSIVE Comments: PATIENT WAS FASTINGPERFORMED BY: [facility]6370 [facility] [id number] (91163) ALT (SGPT) 15 [iU]/L (Normal) Range: 0-32 [...] Glucose, Serum 104 mg/dL (Abnormal) Range: 65-99 29-Xvk-51657:04 METABOLIC PANEL, COMPREHENSIVE Comments: fax to Dr Henry; PATIENT WAS FASTINGPERFORMED BY: [facility] Lkqrds7993 [facility] [id number] (96222) ALT (SGPT) 16 [iU]/L (Normal) Range: 0-32 [...] CREATININE RATIO Comments: PATIENT WAS FASTINGPERFORMED BY: Sonda41[facility] [id number] (79103) AND (02909) Microalb/Creat Ratio <6.3 {mg/g_creat} (Normal) Range: 0.0-30.0 Microalbumin, Urine <3.0 ug/mL (Normal) Creatinine, Urine 48.0 mg/dL (Normal) :04 HGB A1C (21181) Comments: PATIENT WAS FASTINGPERFORMED BY: TradersHighway70 BridgeCape [facility] [id number] Hemoglobin A1c 5.7 % (Abnormal) Range: 4.8-5.6 Comments: . Pre-diabetes: 5.7 - 6.4 Diabetes: >6.4 Glycemic control for adults with diabetes: <7.0 :04 CALCIFEDIOL (35998) Comments: PATIENT WAS FASTINGPERFORMED BY: TradersHighway70 KmsocialUNC [facility] [id number] Vitamin D, 25-Hydroxy 24.2 ng/mL (Abnormal) Range: 30.0-100.0 Comments: Vitamin D deficiency has been defined by the [place] ofMedicine and an Endocrine Society practice guideline as alevel of serum 25-OH vitamin D less than 20 ng/mL (1,2).The Endocrine Society went on to further define vitamin Dinsufficiency as a level between 21 and 29 ng/mL (2).1. IOM ([place] of Medicine). 2010. Dietary reference intakes for calcium and D. [place]: The National Academies Press.2. Azael MF, Leslee NC, Hillary PHILLIPS, et al. Evaluation, treatment, and prevention of vitamin D deficiency: an Endocrine Society clinical practice guideline. JCEM. 2010; 96(9):4391-30. :04 TSH (THYROID STIMULATING Comments: PATIENT WAS FASTINGPERFORMED BY: Darby Smart Rocket.LaC[facility] [id number] HORMONE) (70660) TSH 2.710 {uIU/mL} (Normal) Range: 0.450-4.500 :04 LIPID PANEL (42126) Comments: PATIENT WAS FASTINGPERFORMED BY: Darby Smart [employer] Monk [facility] [id number] LDL/HDL Ratio 1.7 {ratio_units} (Normal) Range: 0.0-3.2 [...] AUT DIFF Comments: PATIENT WAS FASTINGPERFORMED BY: Darby Smart Spccdt4658 [facility] [id number] (05382) Immature Grans (Abs) 0.0 {x10E3/uL} (Normal) Range: [...] up testing of positive sera with both AL-3 and MPO- ANCA enzyme immunoassays. As many as 5% serumsamp les are positive only by EIA. Ref. AM J Clin Kgwffe6592;111:507-513. CYTOPLASMIC Ab <1:20 {titer} (Normal) :28 Anti-dsDNA Ab Comments: [facility] (refer to report for specific site)refer to report for address and phone number dsDNA AB <1 {IU/mL} (Normal) Range: 0-9 Comments: Negative <5 Equivocal 5 - 9 Positive >9Performed at: [facility] Darby Smart[address] [id number] D irector: Junior Valera PhD, Phone: [phone] :28 Complement C3 Comments: Is Patient Fasting? [facility] (refer to report for specific site)refer to report for address and phone number COMP C3 127 mg/dL (Normal) Range: 82-167 Comments: Performed at: Dash Hudson Modebo[address] [id number] Director: Junior Valera PhD, Phone: [phone] :28 Complement C4 Comments: Is Patient Fasting? [...] electrophoresis scan will follow via computer,mail, or electron beam photo mask maker delivery. LEOPOLDO RESULT,S Comment: (Normal) Comments: Presence of monoclonal protein is unclear at this time. Suggest repeat in 3 to 6 months if clinically indicated. A/G RATIO 0.9 (Normal) Range: 0.7-1.7 GLOBULIN, TOTAL 3.8 g/dL (Normal) Range: 2.2-3.9 M-SPIKE (Normal) Comments: Not Observed GAMMA GLOBULIN 1.4 g/dL (Normal) Range: 0.4-1.8 BETA GLOBULIN 1.3 g/dL (Normal) Range: 0.7-1.3 FTNPU-4-UELF 0.9 g/dL (Normal) Range: 0.4-1.0 JPWQO-2-JJKL 0.2 g/dL (Normal) Range: 0.0-0.4 ALBUMIN 3.4 g/dL (Normal) Range: 2.9-4.4 IMMUNOGL M 44 mg/dL (Normal) Range: 26-217 IMMUNO A 614 mg/dL (Abnormal) Range: 87-352 IMMUNO G 1353 mg/dL (Normal) Range: 700-1600 PROTEIN,TOTAL 7.2 g/dL (Normal) Range: 6.0-8.5 :28 Protein+Creatinine Ratio,Urine Comments: [facility] [address] [place], [address] PROT:CRE RATIO 128 {mg/g_CRE} (Normal) Range: 0-200 PROTEIN,UR.RAN. 6.5 mg/dL (Normal) UR CREAT 50.60 mg/dL (Normal) :46 RENAL FUNCTION PANEL (92284) Comments: PATIENT NOT FASTINGPERFORMED BY: [employer]6370 [facility] [id number] Phosphorus, Serum 4.2 mg/dL (Normal) Range: 2.5-4.5 :46 PT (PROTHROMBIN TIME) (70459) Comments: PATIENT NOT FASTINGPERFORMED BY: Dash Hudson LabCoLandmaster PartnersBkvwot8386 [facility] [id number] Prothrombin Time 10.9 {sec} (Normal) Range: 9.1-12.0 INR 1.1 (Normal) Range: 0.8-1.2 Comments: Reference interval is for non-anticoagulated patients. . Suggested INR therapeutic range for Vitamin K anta gonist therapy: Standard Dose (moderate intensity therapeutic range): 2.0 - 3.0 Higher intensity therapeutic range 2.5 - 3.5 :46 METABOLIC PANEL, COMPREHENSIVE Comments: PATIENT NOT FASTINGPERFORMED BY: FOCUS RESEARCH Fizcab3692 [facility] [id number] (35243) ALT (SGPT) 24 [iU]/L (Normal) Range: 0-32 [...] Glucose, Serum 109 mg/dL (Abnormal) Range: 65-99 36-Cec-818868:46 CBC, PLATELETS & AUT DIFF Comments: PATIENT NOT FASTINGPERFORMED BY: [facility] Swnzxo9666 [facility] [id number] Information: [id number] (69841) Immature Grans (Abs) 0.0 {x10E3/uL} (Normal) Range: [...] (Normal) Range: 3.4-10.8 :23 HgA1C , Office (92961) HgA1C , Office 5.4 % (Normal) Range: 4.6 - 7.1 :16 CBC-Complete Blood Cnt No Diff Comments: [facility] [address] [place], [address] MPV 8.8 fL (Normal) Range: [...] 4.4-11.0 :16 Serum Creatinine AND GFR Comments: [facility] [address] [place], [place], [id number] Estimated CRCL 27.75 ml/min (Normal) EST GFR - AA 37 mL/min (Abnormal) Comments: GFR Calc EST GFR 30 mL/min (Abnormal) Comments: Non- GFR Calc CREAT,SERUM 1.77 mg/dL (Abnormal) Range: 0.55-1.20 Comments: The validity of the calculated GFR AND GFRAA in patients over70 years has not been determined. Clinical correlation isessential. 67-Atv-672516:15 Bedside Glucose Comments: [facility] LaboratoryPoint of [address] [place], [place] [address] BEDSIDE GLU 128 mg/dL (Abnormal) Range: 70-110 Comments: Policy and Physicians Orders followedMANAGEMENT OF PATIENT CARE PER NURSING PROTOCOL HYSTERECTOMY SPECIMEN See Note (Normal) Comments: [facility] [address] [place], [place], [id number] :39 Comments: Patient: ELIZABETH TORO : 1950 (65/F) Acct Num: [id number] Phys: Gonsalo PROCTOR,Gm Unit Num: [id number] Loc: MS1 VC099-1 Specimen: [id number] Received: 06/22/161336 Spec Ty pe: HYSTERECT TISSUES TISSUES: COMMENT Please make reference to previous specimen ([id number]) endometrial biopsy with diagnosis of consistent with atrophic endometrium and ([id number]) e ndometrium andpolyp, excision with diagnosis of [...] measures 1.2 x 0.7 x 0.6 cm. Drawbench Operator sections are submitted inten cassettes as [...] tube and ovary. / Sridevi 06/22/16 TC:1 CPT:68262 HEADER OPERATION: Lap robotic hysterectomy, BSO PRE-OP [...] Signed Sivakumar Mallory 06/23/16 <signature on file> 80-Vlp-43742:31 Bedside Glucose Comments: [facility] LaboratoryPoint of [address] [place] [address] BEDSIDE GLU 89 mg/dL (Normal) Range: 70-110 Comments: Physician Notified VBRBMANAGEMENT OF PATIENT CARE PER NURSING PROTOCOL 82-Kkx-261159:31 CBC-Complete Blood Cnt No Diff Comments: [facility] [address] [place], [address] MPV 10.1 fL (Normal) Range: [...] Range: 4.4-11.0 :31 Comprehensive Metabolic Profil Comments: [facility] [address] [place], [address] GAP 8 (Normal) Range: 5-15 [...] (Normal) Range: 70-110 :31 Hemoglobin A1c Comments: [facility] [address]ukmo[address] [place], [place], [id number] HGB A1C 5.6 % (Normal) Range: 4.2-6.3 :31 Partial Thromboplast Time Comments: [facility] [address] [place], [place], [address] PTT 27.7 s (Normal) Range: 24.1-36.2 82-Xhq-215492:31 Prothrombin Time w/INR Comments: [facility] [address] [place], [place], [address] INR 1.1 (Normal) PROTIME 13.4 s (Normal) Range: 11.7-14.9 80-Ugm-541489:31 Thyroid Stim Hormone (TSH) Comments: [facility] [address] [place], [place], [address] TSH 2.46 {uIU/mL} (Normal) Range: 0.358-3.74 :31 Type AND Screen Comments: Surgery Date: 06/22/16Date of Last Transfusion (if within last 3 months) NHx of Preganancy in last 3 Months NoEver experience any problems with transfusion(s)? NHx of Transfusion in last 3 Months N Reason for Type AND Screen/Red Cells: SURGERYTime: 0600SURGICAL PROCEDURE: [facility] [address]nipj[address] [place], [place], [address] Antibody Screen NEGATIVE (Normal) BLOOD TYPE GEL A NEGATIVE (Normal) 19-Ehq-188724:28 Comprehensive Metabolic Profil Comments: Order Date: 06/10/16Order Date: 06/10/16[facility] [address] [place], [address] GAP 5 (Normal) Range: 5-15 CO2 28.0 [...] 7-18 GLU 79 mg/dL (Normal) Range: 70-110 59-Vjr-276566:58 CBC W/Diff, Automated Comments: [facility] [address] [place], [address] Absolute Lymph 2.98 {X10_3/ul} (Normal) [...] 4.2-5.4 WBC 8.7 K/mm3 (Normal) Range: 4.4-11.0 77-Nka-107965:58 Comprehensive Metabolic Profil Comments: Is Patient Taking Vitamins or Folic Acid Supplements? [facility] [address] [place], [address] GAP 8 (Normal) Range: 5-15 CO2 [...] 7-18 GLU 95 mg/dL (Normal) Range: 70-110 56-Nfz-228137:58 Erythrocyte Sed Rate Comments: [facility] [address] [place], [place], [address] SED RATE 25 mm/h (Normal) Range: 0-30 89-Rjs-593370:58 Folates, (Folic Acid) Comments: Is Patient Taking Vitamins or Folic Acid Supplements? [facility] X[address] [place], [place], [address] FOLATES 9.60 ng/mL (Normal) Range: 3.1-17.5 85-Ctc-086795:58 Thyroid Stim Hormone (TSH) Comments: Is Patient Taking Vitamins or Folic Acid Supplements? [facility] [address] [place], [place], [address] TSH 2.58 {uIU/mL} (Normal) Range: 0.358-3.74 57-Cky-208466:58 Vitamin B12 543 pg/mL (Normal) Comments: [facility] [address] [place], [place], [address] Range: 211-911 72-Gcq-641922:07 Urinalysis, Office (34051) UA - LEUKOCYTE ESTERASE Trace (Normal) UA - NITRITE Negative (Normal) URINE UROBILINGN SHARIFA TIMED Normal mg/dL (Normal) UA - PROTEIN Negative mg/dL (Normal) UA - PH 6.5 (Normal) UA - BLOOD Hemolyzed Trace (Normal) UA - SPECIFIC GRAVITY 1.005 (Normal) UA - KETONES Negative mg/dL (Normal) UA - BILIRUBIN Negative (Normal) UA - GLUCOSE Negative (Normal) 71-Yau-918364:04 URINE VERÓNICA CULTURE-SHARIFA COL Comments: PATIENT NOT FASTINGPERFORMED BY: [facility] Noszwq3810 [facility] [id number] Information: SRC:URC [id number] COUNT (88081) Antimicrobial MIHEAD (Normal) Comments: S = Susceptible; [...] (Abnormal) Urine Final report Culture,Comprehensive (Abnormal) EGD ([facility]) See Note (Normal) Comments: [facility] [address] [place], [place], [address]:04 Comments: Patient: ELIZABETH TORO : 1950 (65/F) Acct Num: [id number] Phys: JonnysaraJunior Unit Num: [id number] Loc: LABSPEC Specimen: [id number] Received: 04/21/161637 Spec Type: EGD BIOPSY TISSUES [...] in one cassette. / SJ:stormy 04/22/16 TC:3 CPT:50379 HEADER OPERATION: EGD with biopsy PRE-OP DIAGNOSIS: Dysphagia TISSUE SUBMITTED: Esophageal biopsy, R/O EE MICROSCOPIC DESCRIP TION Slides are reviewed. MICROSCOPIC DIAGNOSIS Esophageal biopsy: Fragments of squamous epithelium with mild chronic inflammation. See comment. SJ:stormy 04/23/16 Signed Sivakumartrey Mallory 04/23/16 <signature on file> CERVICAL See Note (Normal) Comments: [facility] [address] [place], [address] 93840:15 Comments: Patient: ELIZABETH TORO : 1950 (65/F) Acct Num: [id number] Phys: Gonsalo PROCTOR,[facility] Unit Num: [id number] Loc: [facility] Specimen: [id number] Received: 04/13/16 1336 Spec Type: CER V [...] one cassette. / AM: 04/13/16 TC:5 CPT: 53137 x 2 HEADER OPERATION: Hysteroscopy, diagnostic, D [...] <signature on file> :04 Bedside Glucose Comments: [facility] LaboratoryPoint of [address] [place] [address] BEDSIDE GLU 98 mg/dL (Normal) Range: 70-110 Comments: No Action RequiredMANAGEMENT OF PATIENT CARE PER NURSING PROTOCOL :08 CBC-Complete Blood Cnt No Diff Comments: [facility] [address] [place], [address] MPV 9.4 fL (Normal) Range: [...] Range: 4.4-11.0 :08 Comprehensive Metabolic Profil Comments: [facility] [address] [place], [place], [address] GAP 8 (Normal) Range: 5-15 CO2 24.0 [...] Range: 70-110 :08 Partial Thromboplast Time Comments: [facility] [address] [place], [address] PTT 29.8 s (Normal) Range: 24.1-36.2 :08 Prothrombin Time w/INR Comments: [facility] [address] [place], [place], [address] INR 1.1 (Normal) PROTIME 13.6 s (Normal) Range: 11.7-14.9 :08 Type AND Screen Comments: Surgery Date: 04/13/16Date of Last Transfusion (if within last 3 months) NHx of Preganancy in last 3 Months NoEver experience any problems with transfusion(s)? NHx of Transfusion in last 3 Months N Reason for Type AND Screen/Red Cells: SURGERYTime: 1015SURGICAL PROCEDURE: [facility] X[address]trdtjv[address] [place], [place], [address] Antibody Screen NEGATIVE (Normal) BLOOD TYPE GEL A NEGATIVE (Normal) ENDOMETRIAL See Note (Normal) Comments: [facility] [address] [place], [address] 6:00 BX/CURETTINGS Comments: Patient: ELIZABETH TORO : 1950 (65/F) Acct Num: [id number] Phys: Gonsalo PROCTOR,[facility] Unit Num: [id number] Loc: LABSPEC Specimen: [id number] Received: 03/26/16 - 1600 Spec Type: ENDOM [...] in one cassette. / AM:stormy 03/27/16 TC:4 CPT:73856 HEADER OPERATION: Endometrial biopsy PRE-OP DIAGNOSIS: N95.0 TISSUE SUBMITTED: EMB MICROSCOPIC DESCRIPTION Slides are r eviewed. MICROSCOPIC DIAGNOSIS Endometrial biopsy: Scant strips of benign endometrial epithelium, consistent with atrophic endometrium. Fragments of benign endocervical epithelium and mucous. 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 of containers..01 CYTYC Thin Prep VialLabCorp (refer to report for specific site)refer to report for address and phone number HPV RFLX Comment (Normal) Comments: The HPV DNA reflex criteria were not met with this specimenresult therefore, no HPV testing was performed.Performed at: [address]Zenon [address] [id number] Director: Annamaria Menezes MD, Phone: [phone] PAPSMR Comment (Normal) Comments: The Pap smear [...] system. PERFORM Comment (Normal) Comments: Adeline Singleton, Tutoring Clinician (ASCP) ADEQ Comment (Normal) Comments: Satisfactory for evaluation. DIAGN Comment (Normal) Comments: NEGATIVE FOR INTRAEPITHELIAL LESION AND MALIGNANCY. 07-Xkz-76332:20 Urinalysis, Complete Comments: How was Urine Obtained? ACETYLENE GAS COMPRESSOR TO SPECIFYBl[facility]ard [facility] [address]wqo[address] [facility]. [place], [place], [address] MUCUS, URINE 0 SEEN {/hpf} (Normal) BACTERIA [...] (Normal) CLARITY Clear (Normal) COLOR Straw (Normal) 69-Rch-189628:50 Basic Metabolic Profile (BMP) Comments: [facility] [address] [place], [place], [address] GAP 7 (Normal) Range: 5-15 CO2 26.0 [...] <126 mg/dLsuggests IMPAIRED HOMEOSTASIS per A.D.A. criteria. 30-Oea-425656:50 CBC W/Diff, Automated Comments: [facility] [address] [place], [place], [address] Absolute Lymph 3.53 {X10_3/ul} (Normal) Range: 0.83-4.51 [...] K/mm3 (Normal) Range: 4.4-11.0 :02 Rapid Flu (10202 x 2) Influenza A Ag negative (Normal) 3-Wzv-120518:31 SJOGREN ANTIBOIDIES Comments: PATIENT NOT FASTINGPERFORMED BY: LabCoTrenton Psychiatric HospitalGkavzb0964 [facility] [id number] Information: [id number] (ANTI-SS-A/ANTI-SS-B) (71030) Sjogren's Anti-SS-B <0.2 {AI} (Normal) Range: 0.0-0.9 Sjogren's Anti-SS-A <0.2 {AI} (Normal) Range: 0.0-0.9 :28 Rapid Strep Test, Office (72976) Rapid Strep Test, Office Negative (Normal) 3-Vfz-081201:37 Throat Culture (41327) Comments: PATIENT NOT FASTINGPERFORMED BY: [facility]6370 [facility] [id number] Information: SRC:THRT [id number] Result 1 BETAGB (Abnormal) Comments: Beta hemolytic [...] 2011) Upper Respiratory Culture Final report (Abnormal) 7-Eus-698130:45 Basic Metabolic Profile (BMP) Comments: 'TROP' Serial specimen #1, #2, #3, or #4: [facility] [address]elmebjk[address] [place], [place], [address] GAP 9 (Normal) Range: 5-15 CO2 23.0 [...] Range: 70-110 :45 CBC W/Diff, Automated Comments: [facility] [address] [place], [place], [address] Absolute Lymph 2.03 {X10_3/ul} (Normal) Range: 0.83-4.51 [...] 4.2-5.4 WBC 6.0 K/mm3 (Normal) Range: 4.4-11.0 4-Abf-668938:45 Thyroid Stim Hormone (TSH) Comments: 'TROP' Serial specimen #1, #2, #3, or #4: [address] [place] [address] [address] [place], [address] TSH 1.50 {uIU/mL} (Normal) Range: 0.358-3.74 :45 Troponin-I Comments: 'TROP' Serial specimen #1, #2, #3, or #4: [address] [place] [address] [address]tkpk[address]88 [place], [address] TROPONIN-I < 0.02 ng/mL (Normal) Comments: TROPONIN-I EXPECTED VALUES <0.05 NEGATIVE 0.06 - 0.59 AT RISK OF [place] > OR = 0.60 SUGGEST [place] :53 Pap IG (Image Comments: Source.............Cervical;EndocervicalNo. of containers..01 CYTYC Thin Prep VialPATIENT NOT FASTINGPERFORMED BY: =G [place] [address] [facility] HospitalvickyMeadows Psych[facility] Center [id number] BY: WB L Guided) Jennifer Jordanton120 [facility] [id number] Note: PAPSMR (Normal) Comments: The Pap smear [...] of partially obscuring exudate are present.Z00.00Adeline Singleton Tutoring Clinician (ASCP) :01 HgA1C , Office (28220) HgA1C , Office 5.9 % (Normal) Range: 4.6 - 7.1 :00 Blood Glucose , Office (06723) Blood Glucose , Office 126 (Normal) 27-Hbj-07833:53 Thin Prep Pap Comments: Source.............Cervical;EndocervicalNo. of containers..01 CYTYC Thin Prep VialPATIENT NOT FASTINGPERFORMED BY: =G [facility] Iygsebwsaa348 [facility] [id number] BY: WB L (95004) [facility] Hospitalwalter JordanMglvumohhc[address] [id number] Information: [id number] Age Gdln ACOG Testing AGE4 (Normal) Comments: <21 or >65 or no age provided :34 METABOLIC PANEL, Comments: PATIENT WAS FASTINGPERFORMED BY: LabCo Kmecvu2826 [facility] [id number] Information: [id number] COMPREHENSIVE (83457) ALT (SGPT) 18 [iU]/L (Normal) Range: 0-32 [...] Glucose, Serum 83 mg/dL (Normal) Range: 65-99 29-Csr-87261:34 CALCIFIDIOL (45039) VIT D 25 Comments: PATIENT WAS FASTINGPERFORMED BY: [facility]University [facility]6370 [facility] [id number] Vitamin D, 25-Hydroxy 59.6 ng/mL (Normal) Range: 30.0-100.0 Comments: Vitamin D deficiency has been defined by the [place] ofMedicine and an Endocrine Society practice guideline as alevel of serum 25-OH vitamin D less than 20 ng/mL (1,2).The Endocrine Society went on to further define vitamin Dinsufficiency as a level between 21 and 29 ng/mL (2).1. IOM ([place] of Medicine). 2010. Dietary reference intakes for calcium and D. [place]: The National AcademNeuroQuest Press.2. Leslee Chapin, Hillary PHILLIPS, et al. Evaluation, treatment, and prevention of vitamin D deficiency: an Endocrine Society clinical practice guideline. JCEM. 2010; 96(7):1911-30. :37 HgA1C , Office (69317) HgA1C , Office 6.1 % (Normal) Range: 4.6 - 7.1 :37 Blood Glucose , Office (61001) Blood Glucose , Office 107 (Normal) :27 TSH (THYROID STIMULATING Comments: PATIENT WAS FASTINGPERFORMED BY: Dash Hudson [facility] Jdojdt0881 [address] RoadDublin [place] [id number] HORMONE) (11005) TSH 2.480 {uIU/mL} (Normal) Range: 0.450-4.500 : CALCIFEDIOL (25484) Comments: PATIENT WAS FASTINGPERFORMED BY: CB [facility] Xmornn13[address] RoadDublin [place] [id number] Vitamin D, 25-Hydroxy 16.7 ng/mL (Abnormal) Range: 30.0-100.0 Comments: Vitamin D deficiency has been defined by the [place] ofMedicine and an Endocrine Society practice guideline as alevel of serum 25-OH vitamin D less than 20 ng/mL (1,2).The Endocrine Society went on to further define vitamin Dinsufficiency as a level between 21 and 29 ng/mL (2).1. IOM ([place] of Medicine). 2010. Dietary reference intakes for calcium and D. [place]: The National Academies Press.2. Leslee Chapin, Hillary PHILLIPS, et al. Evaluation, treatment, and prevention of vitamin D deficiency: an Endocrine Society clinical practice guideline. JCEM. 2010; 96(7):1911-30. :27 LIPID PANEL (86353) Comments: PATIENT WAS FASTINGPERFORMED BY: CB [facility] Junchq3252 [address]k RoadDublin [place] [id number] LDL/HDL Ratio 1.2 {ratio_units} (Normal) Range: 0.0-3.2 [...] Cholesterol, Total 138 mg/dL (Normal) Range: 100-199 04-Jbl-86773:27 METABOLIC PANEL, COMPREHENSIVE Comments: PATIENT WAS FASTINGPERFORMED BY: LabCoTrenton Psychiatric HospitalIqvqnf1846 [facility] [id number] (99105) ALT (SGPT) 19 [iU]/L (Normal) Range: 0-32 [...] & MANUAL Comments: PATIENT WAS FASTINGPERFORMED BY: Darby SmartTrenton Psychiatric HospitalOvklgw6166 [facility] [id number] Information: [id number] DIFF (09399) Immature Grans (Abs) 0.0 {x10E3/uL} (Normal) Range: [...] 3.77-5.28 WBC 7.0 {x10E3/uL} (Normal) Range: 3.4-10.8 60-Qhc-147137:31 CREATININE CLEARANCE Comments: PATIENT NOT FASTINGPERFORMED BY: Darby SmartTrenton Psychiatric HospitalCrvrgd5650 [facility] [id number] Information: [id number] START @9AM FINISH 01/28/15@9 AM (34577) Creatinine Clearance 53 mL/min (Abnormal) Range: 88-128 [...] Hour Urine Comments: PATIENT NOT FASTINGPERFORMED BY: ModeboCox Walnut LawnNcdino7291 [facility] [id number] (35665) Prot,24hr calculated 357.5 {mg/24_hr} (Abnormal) Range: 30.0-150.0 Protein,Total,Urine 13.0 mg/dL (Normal) Range: 0.0-15.0 :28 HgA1C , Office (12001) HgA1C , Office 5.9 % (Normal) Range: 4.6 - 7.1 :28 Blood Glucose , Office (57189) Blood Glucose , Office 136 (Normal) :53 TSH (19153) Comments: PATIENT WAS FASTINGPERFORMED BY: [facility]6370 [facility] [id number] TSH 4.370 {uIU/mL} (Normal) Range: 0.450-4.500 :53 MICROALBUMIN: CREATININE RATIO Comments: PATIENT WAS FASTINGPERFORMED BY: [facility]6370 [facility] [id number] (48623) AND (24072) Microalb/Creat Ratio 5.0 {mg/g_creat} (Normal) Range: 0.0-30.0 Microalbumin, Urine 4.5 ug/mL (Normal) Range: 0.0-17.0 Creatinine, Urine 90.5 mg/dL (Normal) Range: 15.0-278.0 :53 METABOLIC PANEL, COMPREHENSIVE Comments: PATIENT WAS FASTINGPERFORMED BY: Darby Smart Yjoqeq4209 [facility] [id number] (41060) ALT (SGPT) 20 [iU]/L (Normal) Range: 0-32 [...] mg/dL (Abnormal) Range: 65-99 :53 LIPID PANEL (39332) Comments: PATIENT WAS FASTINGPERFORMED BY: [facility] [facility] [employer]6370 [facility] [id number] LDL/HDL Ratio 1.4 {ratio_units} (Normal) Range: 0.0-3.2 [...] DIFF WBC Comments: PATIENT WAS FASTINGPERFORMED BY: LabCoTrenton Psychiatric HospitalBeqsfi1991 [facility] [id number] Information: [id number] (04395) Immature Grans (Abs) 0.0 {x10E3/uL} (Normal) Range: [...] 7.8 {x10E3/uL} (Normal) Range: 3.4-10.8 :53 CALCIFIDIOL (48654) VIT D 25 Comments: PATIENT WAS FASTINGPERFORMED BY: Darby Smart Dmyfll0657 [facility] [id number] Vitamin D, 25-Hydroxy 22.5 ng/mL (Abnormal) Range: 30.0-100.0 Comments: Vitamin D deficiency has been defined by the [place] ofMer[facility] Health St[facility] Hospitalcine and an Endocrine Society practice guideline as alevel of serum 25-OH vitamin D less than 20 ng/mL (1,2).The Endocrine Society went on to further define vitamin Dinsufficiency as a level between 21 and 29 ng/mL (2).1. IOM ([place] of Medicine). 2010. Dietary reference intakes for calcium and D. [place]: The National Academies Press.2. Azael MF, Leslee LEMON, Hillary PHILLIPS, et al. Evaluation, treatment, and prevention of vitamin D deficiency: an Endocrine Society clinical practice guideline. JCEM. 2010; 96(7):1911-30. :22 HgA1C , Office (70875) HgA1C , Office 6.0 % (Normal) Range: 4.6 - 7.1 :22 Blood Glucose , Office (23810) Blood Glucose , Office 132 (Normal) :27 Blood Glucose , Office (32677) Blood Glucose , Office 114 (Normal) :27 HgA1C , Office (52375) HgA1C , Office 5.9 % (Normal) Range: 4.6 - 7.1 :00 Basic Metabolic Panel (8) Comments: PATIENT NOT FASTINGPERFORMED BY: LabCoTrenton Psychiatric HospitalKcaqvi3274 [facility] [id number] BY: [address] [id number] Calcium, Serum 9.8 mg/dL (Normal) Range: 8.6-10.2 [...] 287 {mOsmol/kg} Comments: PATIENT NOT FASTINGPERFORMED BY: [facility]Highway70 [facility] [id number] BY: Darby Smart[address] [id number] 00 (Normal) Range: 280-301 : Osmolality, Urine 259 {mOsmol/kg} Comments: PATIENT NOT FASTINGPERFORMED BY: [address]70 [facility] [id number] BY: Darby Smart[address] [id number] 00 (Normal) Comments: 24 hr : 300 - 900 Random: 50 - 1400 After 12hr fluid restriction: >850 : Sodium, Urine 11 mmol/L (Normal) Comments: PATIENT NOT FASTINGPERFORMED BY: [address] [facility] [id number] BY: Darby Smart[address] [id number] 00 5-Hjj-076835:06 Metabolic Panel, Basic Comments: PATIENT NOT FASTINGPERFORMED BY: [address] [facility] [id number] Information: [id number] (09362) Calcium, Serum 9.9 mg/dL (Normal) Range: 8.6-10.2 [...] Glucose, Serum 108 mg/dL (Abnormal) Range: 65-99 48-Djg-095942:34 CBCD Comments: pt has apt with db [...] <0.05 NEGATIVE0.06 - 0.59 AT RISK OF [place]> OR = 0.60 SUGGEST [place] 40-Wku-593915:34 TSH 2.32 {uIU/mL} (Normal) Comments: 'TROP' Serial specimen #1, #2, #3, or #4: 1 Range: 0.358-3.74 01-May-20140:00 Microscopic Examination Comments: PATIENT WAS FASTINGPERFORMED BY: [facility] Dwaokw8330 [address]bl[address] [place] [id number] Bacteria Few (Normal) Mucus Threads Present (Normal) Epithelial Cells (non renal) 0-10 {/hpf} (Normal) Range: 0 - 10 RBC 0-2 {/hpf} (Normal) Range: 0 - 2 WBC 11-30 {/hpf} (Abnormal) Range: 0 - 5 59-Wqv-281087:15 TSH (18279) Comments: PATIENT WAS FASTINGPERFORMED BY: [facility] Jktbrs7366 [address] RoadDublin [place] [id number] TSH 3.310 {uIU/mL} (Normal) Range: 0.450-4.500 50-Pbq-236909:15 CALCIFIDIOL (16167) VIT D 25 Comments: PATIENT WAS FASTINGPERFORMED BY: CB [facility] Wvccuk8566 [address] [facility] [place] [id number] Vitamin D, 25-Hydroxy 35.7 ng/mL (Normal) Range: 30.0-100.0 Comments: Vitamin D deficiency has been defined by the [place] ofMer[facility] St[facility] Anne Hospitalcine and an Endocrine Society practice guideline as alevel of serum 25-OH vitamin D less than 20 ng/mL (1,2).The Endocrine Society went on to further define vitamin Dinsufficiency as a level between 21 and 29 ng/mL (2).1. IOM ([place] of Medicine). 2010. Dietary reference intakes for calcium and D. [place]: The National Academies Press.2. Azael MF, Leslee NC, Hillary PHILLIPS, et al. Evaluation, treatment, and prevention of vitamin D deficiency: an Endocrine Society clinical practice guideline. JCEM. 2010; 96(7):1911-30. 56-Ttv-790719:15 URINALYSIS, W/ MICRO (41777) Comments: PATIENT WAS FASTINGPERFORMED BY: LabCoTrenton Psychiatric HospitalGwqiqr1086 [facility] [id number] Microscopic Examination See below: (Normal) Nitrite, Urine Positive (Abnormal) Bilirubin Negative (Normal) Urobilinogen,Semi-Qn 0.2 mg/dL (Normal) Range: 0.0-1.9 Ketones Negative (Normal) Occult Blood Negative (Normal) Glucose Negative (Normal) Protein Negative (Normal) Appearance Clear (Normal) WBC Esterase 2+ (Abnormal) pH 6.5 (Normal) Range: 5.0-7.5 Urine-Color Yellow (Normal) Specific [place] 1.015 (Normal) Range: 1.005-1.030 22-Bme-526633:15 METABOLIC PANEL, COMPREHENSIVE Comments: PATIENT WAS FASTINGPERFORMED BY: LabCoTrenton Psychiatric HospitalSzkxsb9407 [facility] [id number] (77232) ALT (SGPT) 19 [iU]/L (Normal) Range: 0-32 [...] Glucose, Serum 118 mg/dL (Abnormal) Range: 65-99 46-Aww-108148:15 LIPID PANEL (95550) Comments: PATIENT WAS FASTINGPERFORMED BY: Darby SmartTrenton Psychiatric HospitalDcjqtj7460 [facility] [id number] LDL/HDL Ratio 1.7 {ratio_units} (Normal) Range: 0.0-3.2 LDL Cholesterol Calc 90 mg/dL (Normal) Range: 0-99 VLDL Cholesterol Hillary 33 mg/dL (Normal) Range: 5-40 HDL Cholesterol 53 mg/dL (Normal) Comments: According to ATP-III Guidelines, HDL-C >59 mg/dL is considered anegative risk factor for CHD. Triglycerides 166 mg/dL (Abnormal) Range: 0-149 Cholesterol, Total 176 mg/dL (Normal) Range: 100-199 03-Zut-900933:15 CBC WITH MANUAL DIFF Comments: PATIENT WAS FASTINGPERFORMED BY: [facility] Zfesff8949 [facility] [id number] Information: [id number] (89223) Immature Grans (Abs) 0.0 {x10E3/uL} (Normal) Range: [...] 3.77-5.28 WBC 7.0 {x10E3/uL} (Normal) Range: 3.4-10.8 26-Dzm-725918:20 Blood Glucose , Office (46414) Blood Glucose , Office 102 (Normal) 99-Rsu-974062:20 HgA1C , Office (90350) HgA1C , Office 6.0 % (Normal) Range: 4.6 - 7.1 3-Rkj-684052:27 URINE VERÓNICA CULTURE-IDENTIFICATN Comments: PATIENT NOT FASTINGPERFORMED BY: [facility]CoTrenton Psychiatric HospitalRamktc4697 [facility] [id number] Information: [id number] (11565) Result 1 NG36 (Normal) Comments: No growth in 36 - 48 hours. Urine Culture,Comprehensive Final report (Normal) 9-Hmn-050626:03 URINALYSIS (26951) URINALYSIS neg for all (Normal) 29-Azm-64137:31 URINE VERÓNICA CULTURE-SHARIFA COL Comments: PATIENT NOT FASTINGPERFORMED BY: LabCoTrenton Psychiatric HospitalSlgqfk7375 [facility] [id number] Information: SRC:UR [id number] COUNT (31852) Antimicrobial MIHEAD (Normal) Comments: S = Susceptible; [...] mL (Normal) Urine Final report Culture,Comprehensive (Normal) 38-Zkr-42200:26 Urinalysis, Office (40143) UA - LEUKOCYTE ESTERASE Moderate (Normal) UA - NITRITE Negative (Normal) URINE UROBILINGN SHARIFA TIMED Normal mg/dL (Normal) UA - PROTEIN Negative mg/dL (Normal) UA - PH 5 (Abnormal) UA - BLOOD Hemolyzed Small (Normal) UA - SPECIFIC GRAVITY 1.025 (Normal) UA - KETONES Negative mg/dL (Normal) UA - BILIRUBIN Negative (Normal) UA - GLUCOSE Negative (Normal) :52 LIPID PANEL (61630) Comments: PATIENT WAS FASTINGPERFORMED BY: [employer] [facility] [facility] [id number] Information: [id number] LDL/HDL Ratio 2.1 {ratio_units} (Normal) Range: 0.0-3.2 LDL Cholesterol Calc 111 mg/dL (Abnormal) Range: 0-99 VLDL Cholesterol Hillary 31 mg/dL (Normal) Range: 5-40 HDL Cholesterol 53 mg/dL (Normal) Comments: According to ATP-III Guidelines, HDL-C >59 mg/dL is considered anegative risk factor for CHD. Triglycerides 156 mg/dL (Abnormal) Range: 0-149 Cholesterol, Total 195 mg/dL (Normal) Range: 100-199 :52 HEPATIC FUNCTION PANEL (15468) Comments: PATIENT WAS FASTINGPERFORMED BY: [facility] [facility] [id number] ALT (SGPT) 17 [iU]/L (Normal) Range: 0-32 AST (SGOT) 23 [iU]/L (Normal) Range: 0-40 Alkaline Phosphatase, S 57 [iU]/L (Normal) Range: 39-117 Bilirubin, Direct 0.08 mg/dL (Normal) Range: 0.00-0.40 Bilirubin, Total 0.3 mg/dL (Normal) Range: 0.0-1.2 Albumin, Serum 4.3 g/dL (Normal) Range: 3.6-4.8 Protein, Total, Serum 7.2 g/dL (Normal) Range: 6.0-8.5 :52 CALCIFEDIOL (85485) Comments: PATIENT WAS FASTINGPERFORMED BY: [employer] Cstphm2809 [facility] [id number] Vitamin D, 25-Hydroxy 13.8 ng/mL (Abnormal) Range: 30.0-100.0 Comments: Vitamin D deficiency has been defined by the [place] of[place]icine and an Endocrine Society practice guideline as alevel of serum 25-OH vitamin D less than 20 ng/mL (1,2).The Endocrine Society went on to further define vitamin Dinsufficiency as a level between 21 and 29 ng/mL (2).1. IOM ([place] of Medicine). 2010. Dietary reference intakes for calcium and D. [place]: The National Academies Press.2. Azael MF, Leslee NC, Hillary PHILLIPS, et al. Evaluation, treatment, and prevention of vitamin D deficiency: an Endocrine Society clinical practice guideline. JCEM. 2010; 96(7):1911-30. 03-Zxi-517823:38 Blood Glucose , Office (73949) Blood Glucose , Office 114 (Normal) 55-Ros-516992:38 HgA1C , Office (47490) HgA1C , Office 5.8 % (Normal) Range: 4.6 - 7.1 43-Mgi-123066:23 Urinalysis, Office (97784) UA - BILIRUBIN Negative (Normal) UA - BLOOD Hemolyzed Trace (Normal) UA - GLUCOSE Negative (Normal) UA - KETONES Negative mg/dL (Normal) UA - LEUKOCYTE ESTERASE Small (Normal) UA - NITRITE Negative (Normal) UA - PH 5.0 (Normal) UA - PROTEIN Negative mg/dL (Normal) UA - SPECIFIC GRAVITY 1.025 (Normal) URINE UROBILINGN SHARIFA TIMED Normal mg/dL (Normal) 75-Ggi-587186:50 Metabolic Panel, Basic Comments: PATIENT NOT FASTINGPERFORMED BY: [facility] Vsnync5934 [facility] [id number] Information: [id number] (90763) Calcium, Serum 9.9 mg/dL (Normal) Range: 8.6-10.2 [...] Glucose, Serum 84 mg/dL (Normal) Range: 65-99 97-Mok-891493:39 BRAIN WITHOUT CONTRAST Radiology Report See Note [...] Sweeney M.D.July 12, 2013 at 4:19:02 PM [id number] Signed PV/PV If you are the referring physician and would like to consult with theradiologist who provided this interpretation, please contact Petrona molina M.D. at [phone]. If this radiologist is unavailable, youwillbe directed to another radiologist to assist. If you are a patient with a question regarding this report, pleasecontactyour referring physician directly. Professional Interpretation Provided By: [employer], Phone , These documents contain legally protected [...] 07/12/13 1622 Sign by: Petrona Meek MD 8-Mwp-442782:39 CRE GFRAA 45 mL/min (Abnormal) GFR 37 [...] 3000 mL (Normal) UPCT 24.0 {HOURS} (Normal) 0-Suc-032557:39 Metabolic Panel, Basic Comments: recheck in one week; PATIENT NOT FASTINGPERFORMED BY: LabCoTrenton Psychiatric HospitalNvieau3148 [facility] [id number] Information: [id number] (74912) Calcium, Serum 9.7 mg/dL (Normal) Range: 8.6-10.2 [...] Glucose, Serum 109 mg/dL (Abnormal) Range: 65-99 84-Tei-85787:50 Metabolic Panel, Basic Comments: PATIENT NOT FASTINGPERFORMED BY: LabCoTrenton Psychiatric HospitalSagnxj3546 [facility] [id number] Information: [id number] (56191) Calcium, Serum 9.5 mg/dL (Normal) Range: 8.6-10.2 [...] (Abnormal) Range: 65-99 :29 HgA1C , Office (21433) HgA1C , Office 5.7 % (Normal) Range: 4.6 - 7.1 81-Bij-752600:14 TSH (60642) Comments: PATIENT NOT FASTINGPERFORMED BY: [facility]6370 [facility] [id number] TSH 2.850 {uIU/mL} (Normal) Range: 0.450-4.500 :14 CBC, Platelets & Auto Comments: PATIENT NOT FASTINGPERFORMED BY: [facility]6370 [facility] [id number] Information: [id number] Diff (91809) Immature Grans (Abs) 0.0 {x10E3/uL} (Normal) Range: [...] 3.77-5.28 WBC 7.5 {x10E3/uL} (Normal) Range: 4.0-10.5 62-Uty-075695:14 Metabolic Panel, Comprehensive Comments: PATIENT NOT FASTINGPERFORMED BY: [facility] Oqmnth7062 [facility] [id number] (67376) ALT (SGPT) 19 [iU]/L (Normal) Range: 0-32 [...] Glucose, Serum 105 mg/dL (Abnormal) Range: 65-99 52-Wtk-958657:06 URINE VERÓNICA CULTURE-SHARIFA COL Comments: PATIENT NOT FASTINGPERFORMED BY: [facility]6370 [facility] [id number] Information: SRC:UR ADD [id number] COUNT (01188) Antimicrobial MIHEAD (Normal) Comments: S = Susceptible; [...] mL (Normal) Urine Final report Culture,Comprehensive (Normal) 93-Kbv-494007:09 Urinalysis, Office (69972) UA - BILIRUBIN Negative (Normal) UA - BLOOD Hemolyzed Moderate (Normal) UA - GLUCOSE Negative (Normal) UA - KETONES Negative mg/dL (Normal) UA - LEUKOCYTE ESTERASE Small (Normal) UA - NITRITE Negative (Normal) UA - PH 6.0 (Normal) UA - PROTEIN Negative mg/dL (Normal) UA - SPECIFIC GRAVITY 1.005 (Normal) URINE UROBILINGN SHARIFA TIMED 2 mg/dL (Normal) 8-Njr-754292:04 Renal function Panel Comments: PATIENT NOT FASTINGPERFORMED BY: [facility]6370 [facility] [id number] Information: [id number] (61581) Albumin, Serum 4.1 g/dL (Normal) Range: 3.6-4.8 [...] Glucose, Serum 110 mg/dL (Abnormal) Range: 65-99 63-Qxw-289738:22 CALCIFEDIOL (38524) Comments: PATIENT NOT FASTINGPERFORMED BY: [employer] [place] [id number] Vitamin D, 25-Hydroxy 16.7 ng/mL (Abnormal) Range: 30.0-100.0 Comments: Vitamin D deficiency has been defined by the [place] [facility] and an Endocrine Society practice guideline as alevel of serum 25-OH vitamin D less than 20 ng/mL (1,2).The Endocrine Society went on to further define vitamin Dinsufficiency as a level between 21 and 29 ng/mL (2).1. IOM ([place] of Medicine). 2010. Dietary reference intakes for calcium and D. [place]: The National Academies Press.2. Azael MF, Leslee LEMON, Hillary PHILLIPS, et al. Evaluation, treatment, and prevention of vitamin D deficiency: an Endocrine Society clinical practice guideline. JCEM. 2010; 96(7):1911-30. 84-Hkn-687171:22 MAGNESIUM (32106) Comments: PATIENT NOT FASTINGPERFORMED BY: Dash Hudson [facility] Dxlbqv8328 Monk RoadDublin [place] [id number] Magnesium, Serum 2.3 mg/dL (Normal) Range: 1.6-2.6 :22 T4, FREE (THYROXINE) (73800) Comments: PATIENT NOT FASTINGPERFORMED BY: [facility] Ykhfct2599 Monk RoadDublin [place] [id number] T4,Free(Direct) 1.50 ng/dL (Normal) Range: 0.82-1.77 :22 T3, FREE (TRIDOTHYRONINE) (60523) Comments: PATIENT NOT FASTINGPERFORMED BY: [facility]6370 [facility] [id number] Triiodothyronine,Free,Serum 2.6 pg/mL (Normal) Range: 2.0-4.4 :22 TSH (31554) Comments: PATIENT NOT FASTINGPERFORMED BY: [facility]6370 [facility] [id number] TSH 1.920 {uIU/mL} (Normal) Range: 0.450-4.500 :22 CBC, Platelets & Auto Comments: PATIENT NOT FASTINGPERFORMED BY: [facility]6370 [facility] [id number] Information: [id number] Diff (94129) Immature Grans (Abs) 0.0 {x10E3/uL} (Normal) Range: [...] 3.77-5.28 WBC 8.5 {x10E3/uL} (Normal) Range: 4.0-10.5 38-Uze-586765:22 Metabolic Panel, Comprehensive Comments: PATIENT NOT FASTINGPERFORMED BY: LabCoTrenton Psychiatric HospitalPbzgbz0248 [facility] [id number] (19759) ALT (SGPT) 21 [iU]/L (Normal) Range: 0-32 [...] Glucose, Serum 97 mg/dL (Normal) Range: 65-99 3-Irc-428175:20 METABOLIC PANEL, COMPREHENSIVE Comments: PATIENT WAS FASTINGPERFORMED BY: EMIL Darby Smart Mgnzsu3283 [facility] [id number] (97496) ALT (SGPT) 19 [iU]/L (Normal) Range: 0-32 [...] Glucose, Serum 102 mg/dL (Abnormal) Range: 65-99 2-Cov-198666:20 CBC WITH MANUAL DIFF Comments: PATIENT WAS FASTINGPERFORMED BY: Darby SmartTrenton Psychiatric HospitalDbsvfv3277 [facility] [id number] Information: [id number] (31341) Immature Grans (Abs) 0.0 {x10E3/uL} (Normal) Range: [...] 3.77-5.28 WBC 7.4 {x10E3/uL} (Normal) Range: 3.4-10.8 1-Ish-016606:20 LIPID PANEL (65601) Comments: PATIENT WAS FASTINGPERFORMED BY: [facility] Zmlcrr4796 [facility] [id number] LDL/HDL Ratio 2.0 {ratio_units} (Normal) Range: 0.0-3.2 LDL Cholesterol Calc 109 mg/dL (Abnormal) Range: 0-99 VLDL Cholesterol Hillary 35 mg/dL (Normal) Range: 5-40 HDL Cholesterol 54 mg/dL (Normal) Comments: According to ATP-III Guidelines, HDL-C >59 mg/dL is considered anegative risk factor for CHD. Triglycerides 175 mg/dL (Abnormal) Range: 0-149 Cholesterol, Total 198 mg/dL (Normal) Range: 100-199 4-Qyl-071727:20 TSH (26461) Comments: PATIENT WAS FASTINGPERFORMED BY: LabCoGerald Champion Regional Medical CenterQfppye3827 [address] [place] [id number] TSH 2.720 {uIU/mL} (Normal) Range: 0.450-4.500 09-Dfk-827723:22 HgA1C , Office (72617) HgA1C , Office 6.0 % (Normal) Range: 4.6 - 7.1 52-Ogw-023995:22 Blood Glucose , Office (22498) Blood Glucose , Office 249 (Normal) Comments: has eaten in last 2h 78-Aoo-670396:20 CHEST, PA AND LATERAL Radiology Report See [...] Signed:Anibal Lan M.D.November 022012 at 8:14:34 AM [id number] Signed GP/GP If you are the referring physician and would like to consult with theradiologist who provided this interpretation, please contact Eliecer Bui M.D. at [phone]. If this radiologist is unavailable, youwill be directed to another radiologist to assist. If you are a patient with a question regarding this report, pleasecontactyour referring physician directly. Professional Interpretation Provided By: [employer], Phone , These documents contain legally protected [...] on 11/22/12817 Sign by: Anibal Lan MD 92-Wvq-14060:19 VERÓNICA CULTURE-OTHER (05877) Comments: PATIENT NOT FASTINGPERFORMED BY: Dash Hudson LabCoTrenton Psychiatric HospitalXgmugc8173 [facility] [id number] Information: SRC:THRT [id number] Result 1 RRF (Normal) Comments: Routine respiratory duyen Upper Respiratory Culture Final report (Normal) 66-Tjr-581171:33 Rapid Strep Test, Office (08456) Rapid Strep Test, Office Negative (Normal) 2-Gxi-092480:50 Celiac Disease Comprehensive Comments: PERFORMED BY: Dash Hudson LabCoBantrOmzusf1723 [facility] [id number] Immunoglobulin A, Qn, 364 mg/dL (Normal) Range: [...] Serum 4.0 mmol/L Comments: PERFORMED BY: [facility] Plualy1229 [facility] [id number] 4:50 (Normal) Range: 3.5-5.2 3-Jif-126176:30 CBCMD ANC 3.7 3/uL (Normal) Range: 2.0-7.7 [...] 4.2-5.4 WBC 7.0 {k/mm3} (Normal) Range: 4.4-11.0 1-Mys-028997:30 CMP GAP 11 (Normal) Range: 5-15 CO2 [...] 7-18 GLU 93 mg/dL (Normal) Range: 70-110 0-Uci-542642:30 LIPID LDL 108 mg/dL (Normal) Range: 0-130 [...] Very High > or = 500 mg/dL 6-Xwh-099226:30 MIACRE MIALB 5.8 mg/L (Normal) tMICROCREAT 9.5 {mg/g_CRE} (Normal) CREU 60.7 mg/dL (Normal) 2-Rlt-096450:30 TSH 0.75 {uIU/mL} (Normal) Range: 0.358-3.74 :54 HgA1C , Office (53438) HgA1C , Office 5.5 % (Normal) Range: 4.6 - 7.1 45-Msb-58651:54 Blood Glucose , Office (15929) Blood Glucose , Office 116 (Normal) 71-Ivg-672060:26 URINE VERÓNICA CULTURE-SHARIFA COL Comments: PATIENT NOT FASTINGPERFORMED BY: [facility] Pnjvnx4558 [address] [place] [id number] Information: SRC:CLAUDINE [id number] COUNT (76541) Result 1 MUG (Normal) Comments: Mixed urogenital flora50,000-100,000 colony forming units per mL Urine Final report (Normal) Culture,Comprehensive 40-Iwq-537956:46 Urinalysis, Office (12704) UA - BILIRUBIN Small (Normal) UA - BLOOD Hemolyzed Small (Normal) UA - GLUCOSE Negative (Normal) UA - KETONES Small mg/dL (Normal) UA - LEUKOCYTE ESTERASE Moderate (Normal) UA - NITRITE Negative (Normal) UA - PH 6.0 (Normal) UA - PROTEIN Trace mg/dL (Normal) UA - SPECIFIC GRAVITY 1.025 (Normal) URINE UROBILINGN SHARIFA TIMED Normal mg/dL (Normal) 95-Ozg-201221:55 CHEST, PA AND LATERAL Radiology Report See [...] radiologist regarding this report, please call our [id number] line @ Dictated on 1518 by Isiah Lan MDranscribed on 11/23/11 1611 by ITS IMPORTSign by Anibal Lan MD on 11/23/11 1611 Sign by: Edyta PROCTORAnibal :51 Urinalysis, Office (84805) UA - BILIRUBIN Negative (Normal) UA - BLOOD Hemolyzed Small (Normal) UA - GLUCOSE Negative (Normal) UA - KETONES Negative mg/dL (Normal) UA - LEUKOCYTE ESTERASE Large (Normal) UA - NITRITE Negative (Normal) UA - PH 7.0 (Normal) UA - PROTEIN Negative mg/dL (Normal) UA - SPECIFIC GRAVITY 1.020 (Normal) URINE UROBILINGN SHARIFA TIMED 2 mg/dL (Normal) :51 HgA1C , Office (41250) HgA1C , Office 6.2 % (Normal) Range: 4.6 - 7.1 :50 Blood Glucose , Office (75676) Blood Glucose , Office 119 (Normal) :55 Urinalysis, Office (73694) UA - BILIRUBIN Negative (Normal) UA - [...] Ultrasound evaluation of the right upper quadrant [facility] with real-time ultrasonography and static [...] to bowel gas. Dictated on 853 by Marat PROCTOR,TheresaTranscribed on 06/24/112034 by ITS IMPORTSign by Marta PROCTOR,Gela on 06/24/112035 Sign by: Marta PROCTOR,Gela Actin (Smooth Muscle) 13 {Units} (Normal) Comments: PERFORMED BY: [employer] [place] [id number] :58 Antibody Range: 0-19 Comments: Negative 0 - 19 Weak positive 20 - 30 Moderate to strong positive >30 . Actin Antibodies are found in 52-85% of patients with autoimmune hepatitis or chronic active hepatitis and in 22% of patients with primary biliary cirrhosis. :58 Antinuclear Antibodies Direct Comments: PERFORMED BY: [employer] [id number] GAYATRI Direct Negative (Normal) :5 Ceruloplasmin 31.6 mg/dL (Normal) Comments: PERFORMED BY: [employer] [place] [id number] Range: 16.0-45.0 :5 Ferritin, Serum 440 ng/mL (Abnormal) Comments: PERFORMED BY: [employer] [place] [id number] Range: 13-150 :58 Hepatitis Panel (4) Comments: PERFORMED BY: [facility]6370 [facility] [id number] Hep C Virus Ab 0.1 {s/co_ratio} (Normal) Range: 0.0-0.9 Comments: Negative: < 0.8 Indeterminate 0.8 - 0.9 Positive: > 0.9 . In order to reduce the incidence of a false positive result, the [facility] recommends that all s/co ratios between 1.0 and 10.9 be confirmed with additional RIBA or PCR testing. Hep B Core Ab, IgM Negative (Normal) HBsAg Screen Negative (Normal) Hep A Ab, IgM Negative (Normal) 71-Rqh-17713:58 Iron and TIBC Comments: PERFORMED BY: [facility]6370 [facility] [id number] Iron Saturation 37 % (Normal) Range: 15-55 Iron, Serum 96 ug/dL (Normal) Range: 35-155 UIBC 163 ug/dL (Normal) Range: 150-375 Iron Bind.Cap.(TIBC) 259 ug/dL (Normal) Range: 250-450 :58 Platelet Count on Citrated Comments: PERFORMED BY: [facility]6370 [facility] [id number] Bld Plt Count, Citrated Bld 216 {X10E3/uL} Range: 140-415 (Normal) 11-Jun-2011 Written Authorization WAR (Normal) Comments: PERFORMED BY: [facility]6370 [facility] [id number] 9:58 Comments: Written Authorization Received.Authorization received from [facility] [id number] by Elina Swain :30 HgA1C , Office (52000) HgA1C , Office 6.7 % (Normal) Range: 4.6 - 7.1 :30 Blood Glucose , Office (54274) Blood Glucose , Office 159 (Normal) :15 METABOLIC PANEL, COMPREHENSIVE Comments: PATIENT WAS FASTINGPERFORMED BY: [facility]6370 [facility] [id number] (53812) ALT (SGPT) 51 [iU]/L (Abnormal) Range: 0-40 [...] mg/dL (Abnormal) Range: 65-99 03-Jun-20119:15 LIPID PANEL (54757) Comments: PATIENT WAS FASTINGPERFORMED BY: [facility] Ywimft7521 [facility] [id number] LDL/HDL Ratio 1.8 {ratio_units} (Normal) Range: 0.0-3.2 [...] MANUAL DIFF Comments: PATIENT WAS FASTINGPERFORMED BY: LabCoTrenton Psychiatric HospitalEuublw1725 [facility] [id number] Information: [id number] (23614) Immature Grans (Abs) 0.0 {x10E3/uL} (Normal) Range: [...] Hepatic Function Panel (7) Comments: PERFORMED BY: Darby SmartTrenton Psychiatric HospitalWqwkbu3410 [facility] [id number] ALT (SGPT) 63 [iU]/L (Abnormal) Range: 0-40 Alkaline Phosphatase, S 63 [iU]/L (Normal) Range: 25-165 AST (SGOT) 53 [iU]/L (Abnormal) Range: 0-40 Bilirubin, Direct 0.13 mg/dL (Normal) Range: 0.00-0.40 Bilirubin, Total 0.4 mg/dL (Normal) Range: 0.0-1.2 Albumin, Serum 4.5 g/dL (Normal) Range: 3.6-4.8 Protein, Total, Serum 7.8 g/dL (Normal) Range: 6.0-8.5 :26 Hepatitis Panel (4) Comments: PERFORMED BY: Darby SmartTrenton Psychiatric HospitalKnsqju9184 [facility] [id number] Hep C Virus Ab <0.1 {s/co_ratio} (Normal) [...] (Normal) Hep A Ab, IgM Negative (Normal) 8-Acn-019167:04 LIVER D BILI 0.11 mg/dL (Normal) Range: 0.00-0.30 T BILI 0.30 mg/dL (Normal) Range: 0.00-1.00 ALK P 57 U/L (Normal) Range: 50-136 ALT 68 U/L (Normal) Range: 12-78 ALB 4.0 g/dL (Normal) Range: 3.4-5.0 AST 53 U/L (Abnormal) Range: 15-37 T PROT 8.0 g/dL (Normal) Range: 6.4-8.2 :59 HgA1C , Office (22879) HgA1C , Office 6.6 % (Normal) Range: 4.6 - 7.1 :59 Blood Glucose , Office (26930) Blood Glucose , Office 124 (Normal) :17 HgA1C , Office (49278) HgA1C , Office 6.4 % (Normal) Range: 4.6 - 7.1 :17 Blood Glucose , Office (33796) Blood Glucose , Office 141 (Normal) :17 Hemoglobin Glyclated (HGB A1C) Comments: PATIENT WAS FASTINGPERFORMED BY: Darby SmartGerald Champion Regional Medical CenterPsqtzt4219 [facility] [id number] (28215) Hemoglobin A1c 6.0 % (Abnormal) Range: 4.8-5.6 Comments: Increased risk for diabetes: 5.7 - 6.4 Diabetes: >6.4 Glycemic control for adults with diabetes: <7.0 :17 MICROALBUMIN: CREATININE RATIO Comments: PATIENT WAS FASTINGPERFORMED BY: Darby SmartGerald Champion Regional Medical CenterIxfeok2631 [facility] [id number] (56249) AND (12812) Microalb/Creat Ratio 2.9 {mg/g_creat} (Normal) Range: 0.0-30.0 Creatinine, Urine 49.0 mg/dL (Normal) Range: 15.0-278.0 Microalbumin, Urine 1.4 ug/mL (Normal) Range: 0.0-17.0 :17 METABOLIC PANEL, COMPREHENSIVE Comments: PATIENT WAS FASTINGPERFORMED BY: Darby Smart Mmuzgl2943 [facility] [id number] (37635) Alkaline Phosphatase, S 61 [iU]/L (Normal) Range: [...] Glucose, Serum 116 mg/dL (Abnormal) Range: 65-99 94-Kdd-973112:17 LIPID PANEL (85842) Comments: PATIENT WAS FASTINGPERFORMED BY: LabCoTrenton Psychiatric HospitalBjkaja5560 [facility] [id number] LDL/HDL Ratio 2.2 {ratio_units} (Normal) Range: 0.0-3.2 HDL Cholesterol 50 mg/dL (Normal) Comments: According to ATP-III Guidelines, HDL-C >59 mg/dL is considered anegative risk factor for CHD. LDL Cholesterol Calc 109 mg/dL (Abnormal) Range: 0-99 VLDL Cholesterol Hillary 56 mg/dL (Abnormal) Range: 5-40 Cholesterol, Total 215 mg/dL (Abnormal) Range: 100-199 Triglycerides 282 mg/dL (Abnormal) Range: 0-149 13-Ttx-292673:17 CBC WITH MANUAL DIFF (30162) Comments: PATIENT WAS FASTINGPERFORMED BY: LabYellowKornerTrenton Psychiatric HospitalCuhhxq7728 [facility] [id number] Immature Grans (Abs) 0.0 {x10E3/uL} (Normal) Range: [...] (Normal) Range: 4.0-10.5 :57 Folic Acid Serum (64367) Comments: PATIENT NOT FASTINGPERFORMED BY: Darby SmartTrenton Psychiatric HospitalZhowew7794 [facility] [id number] Folate (Folic Acid), Serum 12.6 ng/mL (Normal) Comments: Indeterminate: 2.2 - 3.0Deficient: <2.2 :57 Vitamin B-12 (cyanocobalamin) Comments: PATIENT NOT FASTINGPERFORMED BY: [place] 7247170 [facility] [id number] (10904) Vitamin B12 551 pg/mL (Normal) Range: 211-946 :57 CBC with manual diff Comments: PATIENT NOT FASTINGPERFORMED BY: [facility]6370 [facility] [id number] Information: [id number] (90628) Baso (Absolute) 0.1 {x10E3/uL} (Normal) Range: 0.0-0.2 [...] 3.80-5.10 WBC 9.4 {x10E3/uL} (Normal) Range: 4.0-10.5 25-Sba-458433:57 Metabolic Panel, Comprehensive Comments: PATIENT NOT FASTINGPERFORMED BY: LabCoTrenton Psychiatric HospitalLfljme4262 [facility] [id number] (08598) ALT (SGPT) 18 [iU]/L (Normal) Range: 0-40 [...] mg/dL (Abnormal) Range: 65-99 :57 DRUG ASSAY-LITHIUM (11120) Comments: PATIENT NOT FASTINGPERFORMED BY: [employer] Fbpemj2195 [facility] [id number] [place] (Eskalith), Serum 1.0 mmol/L (Normal) Range: 0.6-1.4 Comments: Detection Limit = 0.1<0.1 indicates None Detected :57 T4, FREE (THYROXINE) (28941) Comments: PATIENT NOT FASTINGPERFORMED BY: [employer] Cqcwbw3946 [facility] [id number] T4,Free(Direct) 1.17 ng/dL (Normal) Range: 0.82-1.77 :57 T3, FREE (TRIDOTHYRONINE) (08101) Comments: PATIENT NOT FASTINGPERFORMED BY: FOCUS RESEARCH [id number] [facility] [id number] Triiodothyronine,Free,Serum 2.1 pg/mL (Normal) Range: 2.0-4.4 :57 TSH (05646) Comments: PATIENT NOT FASTINGPERFORMED BY: FOCUS RESEARCH [id number] [facility] [id number] TSH 4.080 {uIU/mL} (Normal) Range: 0.450-4.500 [id number] HgA1C , Office (09335) HgA1C , Office 5.3 % (Normal) Range: 4.6 - 7.1 :43 Blood Glucose , Office (04038) Blood Glucose , Office 125 (Normal) :4 [...] 136-145 GLU 84 mg/dL (Normal) Range: 70-110 [id number] LI 0.60 mmol/L (Normal) Comments: Therapeutic Range: 0.60 - 1.20 [id number] Thin prep Pap Comments: Source.............Cervical;EndocervicalNo. of containers..01 CYTYC Thin Prep VialPATIENT NOT FASTINGPERFORMED BY: [facility] [address] [id number] Information: [id number] ([id number]) Note: PAPSMR (Normal) Comments: The Pap smear [...] atrophy.V 72.31 ; Routine gynecological examinationRaxander Gonzalez Tutoring Clinician (ASCP) 24-Rji-903931:00 TSH ([id number]) Comments: PATIENT NOT FASTINGPERFORMED BY: CB [facility] Vaopez9940 [facility] [id number] TSH 3.440 {uIU/mL} (Normal) Range: 0.450-4.500 44-Qmm-703729:00 CBC (Auto) ([id number]) Comments: PATIENT NOT FASTINGPERFORMED BY: [facility]6370 [facility] [id number] Information: [id number] Platelets 258 {x10E3/uL} (Normal) Range: 140-415 RDW 13.6 % (Normal) Range: 11.7-15.0 Hematocrit 43.5 % (Normal) Range: 34.0-44.0 MCH 31.6 pg (Normal) Range: 27.0-34.0 MCHC 33.6 g/dL (Normal) Range: 32.0-36.0 MCV 94 fL (Normal) Range: 80-98 Hemoglobin 14.6 g/dL (Normal) Range: 11.5-15.0 RBC 4.61 {x10E6/uL} (Normal) Range: 3.80-5.10 WBC 8.6 {x10E3/uL} (Normal) Range: 4.0-10.5 81-Ohx-782091:00 Metabolic Panel, Basic Comments: PATIENT NOT FASTINGPERFORMED BY: [facility] [id number] ([id number]) Calcium, Serum 9.1 mg/dL (Normal) Range: 8.6-10.2 [...] Glucose, Serum 111 mg/dL (Abnormal) Range: 65-99 71-Dxz-037709:00 DRUG ASSAY-LITHIUM (10447) Comments: all these labs standing order prn; PATIENT NOT FASTINGPERFORMED BY: [facility] HospitalAlsogs2405 [facility] [id number] [place] (Eskal[place]), Serum 0.9 mmol/L (Normal) Range: 0.6-1.4 Comments: Detection Limit = 0.1<0.1 indicates None Detected 10-Vkm-80454:16 METABOLIC PANEL, COMPREHENSIVE Comments: PATIENT NOT FASTINGPERFORMED BY: [facility]CoT[facility] HospitalUggyzg8778 [facility] [id number] ([id number]) A/G Ratio 1.3 (Normal) Range: 1.1-2.5 Alkaline [...] Glucose, Serum 207 mg/dL (Abnormal) Range: 65-99 80-Pwh-02138:16 CBC WITH MANUAL DIFF Comments: PATIENT NOT FASTINGPERFORMED BY: [facility] HospitalScikvj0811 [facility] [id number] Information: [id number] ([id number]) Baso (Absolute) 0.1 {x10E3/uL} (Normal) Range: 0.0-0.2 [...] CREATININE RATIO Comments: PATIENT NOT FASTINGPERFORMED BY: [facility]6370 [facility] [id number] ([id number]) AND (54214) Microalb/Creat Ratio 6.2 {mg/g_creat} (Normal) Range: 0.0-30.0 Microalbumin, Urine 2.5 ug/mL (Normal) Range: 0.0-17.0 Creatinine, Urine 40.1 mg/dL (Normal) Range: 15.0-278.0 :38 HgA1C , Office (85671) HgA1C , Office 6.6 % (Normal) Range: 4.6 - 7.1 :38 Blood Glucose , Office (53907) Blood Glucose , Office 214 (Normal) 48-Etc-171083:05 URINE VERÓNICA CULTURE-IDENTIFICATN Comments: PATIENT NOT FASTINGPERFORMED BY: [facility]6370 [facility] [id number] Information: [id number] ([id number]) Antimicrobial MIHEAD (Normal) Comments: S = Susceptible; [...] mL (Normal) Urine Final report (Normal) Culture,Comprehensive 94-Afl-917071:23 CHEST, PA AND LATERAL (MT) Radiology Report See Note (Normal) Comments: Exam Number: [id number] CLINICAL:58-year-old female with cough, pain and shortness [...] otherwise unremarkable. Reported By: SISI MART Dr. 10-Bny-93867:23 B.pertussisB.parapertussis PCR Comments: PERFORMED BY: [facility] [place] [address] [id number] Bordetella parapertussis DNA Negative (Normal) Comments: .This test was developed and its performance characteristics determinedby [employer]. It has not been cleared or approved by theU.S. Food and Drug Administration. The FDA has determined that s uchclearance or approval is not necessary. This test is used for clinicalpurposes. It should not be regarded as investigational or research. Bordetella pertussis DNA Negative (Normal) 00-Biv-303999:50 HgA1C , Office (65992) HgA1C , Office 5.5 % (Normal) Range: 4.6 - 7.1 :50 Blood Glucose , Office (33799) Blood Glucose , Office 90 (Normal) :33 HgA1C , Office (20216) HgA1C , Office 5.6 % (Normal) Range: 4.6 - 7.1 :41 HgA1C , Office (59810) HgA1C , Office 5.5 % (Normal) Range: 4.6 - 7.1 Comments: :41 Blood Glucose , Office (75305) Comments: 89 Blood Glucose , Office 89 [...] (Normal) Range: 0.34-4.82 :42 HgA1C , Office (38400) HgA1C , Office 5.4 % (Normal) Range: 4.6 - 7.1 :42 Blood Glucose , Office (38761) Blood Glucose , Office 103 (Normal) :20 CBC HCT 44.0 % (Normal) Range: 37-47 HGB 15.2 g/dL (Normal) Range: 12.0-16.0 MCH 31.7 pg (Normal) Range: 27.0-32.0 MCHC 34.6 g/dL (Normal) Range: 32-36 MCV 91.5 fL (Normal) Range: 81-99 PLT 306 K/mm3 (Normal) Range: 150-450 RBC 4.81 {M/mm3} (Normal) Range: 4.2-5.4 RDW 12.2 % (Normal) Range: 11.6-14.6 WBC 6.7 K/mm3 (Normal) Range: 4.4-11.0 26-Tnk-960837:20 COMP METABOLIC A/G 1.0 {RATIO} (Normal) Range: [...] T PROT 8.0 g/dL (Normal) Range: 6.4-8.2 05-Hdx-996839:20 LIPID CHOL 148 mg/dL (Normal) Comments: <200 [...] mg/dL VLDL 30 mg/dL (Normal) Range: 5-40 46-Ksx-510317:20 ROUTINE UA BILIRUBIN URINE SeeNote (Normal) Comments: [...] 0.2 EU/dl (Normal) Range: 0.2 - 1.0 67-Abj-45815:06 THYROID (HP) Radiology Report See Note (Normal) Comments: Exam Number: [id number] THYROID ULTRASOUND HISTORYGoiter. There is borderline increase [...] 03, 2007. Reported By: PETRONA REGALADO M.D. 11-Fsl-85838:20 MAMM, UILAT DIAG DIGITAL & CAD Radiology Report See Note (Normal) Comments: Exam Number: [id number] UNILATERAL LEFT DIAGNOSTIC MAMMOGRAPHY CLINICAL STATEMENTLeft breast [...] The mammogramswere also examined with computer-aided detection software([employer] Reported By: REID KRUEGER M.D. : TSH 0.94 {uIU/mL} Range: 0.34-4.82 50 (Normal) :06 MAMM, BILAT SCRN DIGITAL & CAD Radiology Report See Note (Normal) Comments: Exam Number: [id number] MAMMOGRAM, BILATERAL SCREENING DIGITAL AND CAD HISTORYRoutine [...] mammograms werealso examined with computer-aided detection software ([employer] Reported By: PETRONA REGALADO M.D. 8-Ugg-853882:05 THYROID () Radiology Report See Note (Normal) Comments: Exam Number: [id number] THYROID ULTRASOUND HISTORYGoiter. High resolution real time [...] 6 months. Reported By: PETRONA REGALADO M.D. 19-Sbv-093756:22 HgA1C , Office (52687) HgA1C , Office 5.9 % (Normal) Range: 4.6 - 7.1 51-Wus-347309:22 Blood Glucose , Office (74360) Blood Glucose , Office 88 (Normal) Plan [...] II, controlled Stress incontinence, female : Reviewed [employer]ic Letter Indication: Stress incontinence, female Diabetes mellitus [...] acute Planned Observations VITAMIN B12 AND FOLATES (11816)Indication: Neuropathic pain On: :08 Request Blood Glucose , Office (69051)Indication: Diabetes mellitus type II, controlled On: 12-Ixa-27732:04 Request LIPID PANEL (90734)Indication: Neuropathic pain On: 49-Dhd-44334:54 Request Blood Glucose , Office (43773)Indication: Diabetes mellitus type II, controlled On: 02-Nov-20178:55 Request D-Dimer (68397)Indication: Shortness of breath On: 03-Brm-194565:19 Request Metabolic Panel, Comprehensive (46768)Indication: Diabetes mellitus type II, controlled On: 03-Fqm-637249:19 Request Comments: Nov 2017 LIPID PANEL (26287)Indication: Diabetes mellitus type II, controlled On: 98-Hit-875005:19 Request Comments: Nov 2017 URINALYSIS (04618)Indication: Diabetes mellitus type II, controlled On: 43-Enf-646084:19 Request Comments: Nov 2017 TSH (39398)Indication: Diabetes mellitus type II, controlled On: 86-Bkm-285573:18 Request Comments: Nov 2017 CBC, Platelets & Auto Diff (63011)Indication: Diabetes mellitus type II, controlled On: 41-Isn-035298:18 Request Comments: Nov 2017 MICROALBUMIN: CREATININE RATIO (30797) AND (81619)Indication: Diabetes mellitus type II, controlled On: 17-Pju-848937:18 Request Comments: Nov 2017 HgA1C , Office (88276)Indication: Diabetes mellitus type II, controlled On: 95-Mxf-731635:44 Request Anaerobic & Aerobic Culture (91458)Indication: Mouth pain On: 8-Uuk-574769:11 Request Metabolic Panel, Comprehensive (93094)Indication: Chronic kidney disease (CKD), stage I On: 77-Uvn-193473:50 Request Comments: 2 weeks Metabolic Panel, Comprehensive (41728)Indication: Diabetes mellitus type II, controlled On: 78-Vtf-977119:56 Request Comments: today URINALYSIS (95322)Indication: Chronic kidney disease (CKD), stage I On: 08-Jee-866572:52 Request Comments: Jul 2017 MICROALBUMIN: CREATININE RATIO (75058) AND (69159)Indication: Chronic kidney disease (CKD), stage I On: 99-Zcf-971273:52 Request Comments: jul 2017 Lipid Panel (68770)Indication: Hypertension (Renamed from BP (high blood pressure)) On: 25-Zvu-325879:52 Request Comments: Jul 2017 TSH (10189)Indication: Leg weakness On: 70-Fuu-480952:52 Request Comments: Jul 2017 CBC, Platelets & Auto Diff (72076)Indication: Leg weakness On: 45-Tbe-632048:52 Request Comments: jul 2017 METABOLIC PANEL, COMPREHENSIVE (96677)Indication: Weakness On: 37-Thc-619585:55 Request METABOLIC PANEL, COMPREHENSIVE (58018)Indication: Hypokalemia On: :43 Request Comments: STAT SED RATE ERYTHROCYTE (73074)Indication: Weakness On: 17-Stj-872468:29 Request TSH (THYROID STIMULATING HORMONE) (19159)Indication: Unspecified abnormal involuntary movements On: 94-Dwz-041401:17 Request METABOLIC PANEL, COMPREHENSIVE (57419)Indication: Unspecified abnormal involuntary movements On: :17 Request CBC, PLATELETS & AUT DIFF (83773)Indication: Unspecified abnormal involuntary movements On: 06-Bmb-370120:17 Request URINE VERÓNICA CULTURE-IDENTIFICATN (43611)Indication: Weakness On: 52-Wmu-402503:07 Request Blood Glucose , Office (41409)Indication: Unspecified abnormal involuntary movements On: 06-Tzd-61252:59 Request VITAMIN B12 AND FOLATES (07952)Indication: Unspecified abnormal involuntary movements On: :57 Request SPEP (08488)Indication: Elevated serum creatinine On: 52-Keq-429881:31 Request CALCIFIDIOL (51775) VIT D 25Indication: Vitamin D deficiency (Renamed from Avitaminosis D) On: :27 Request TSH (49651)Indication: Hypothyroidism On: : Request MICROALBUMIN: CREATININE RATIO (55938) AND (12245)Indication: Diabetes mellitus type II, controlled On: : Request METABOLIC PANEL, COMPREHENSIVE (70553)Indication: Diabetes mellitus type II, controlled On: : Request LIPID PANEL (99881)Indication: Diabetes mellitus type II, controlled On: : Request CBC with auto diff (44827)Indication: Diabetes mellitus type II, controlled On: : Request CALCIFIDIOL (88841) VIT D 25Indication: Vitamin D deficiency (Renamed from Avitaminosis D) On: 84-Trl-427083:15 Request Comments: in three months (approximately) METABOLIC PANEL, COMPREHENSIVE (69648)Indication: Diabetes mellitus type II, controlled On: 98-Rqc-385368:15 Request Comments: in three months (approximately) SODIUM URINE (46089)Indication: Hyponatremia On: 8-Wnk-215377:51 Request OSMOLALITY URINE (81250)Indication: Hyponatremia On: 5-Lwb-510566:50 Request OSMOLALITY BLOOD (36499)Indication: Hyponatremia On: 7-Geg-315758:50 Request ASSAY, TROPONIN, QUANTITATIVE (aka Troponin I) (34551)Indication: Chest pain On: 48-Gaw-644912:40 Request Comments: stat D-Dimer (83678)Indication: Chest pain On: 70-Lxt-088727:40 Request Comments: stat TSH (08033)Indication: Chest pain On: :40 Request CBC WITH MANUAL DIFF (21235)Indication: Chest pain On: 23-Rdz-527961:40 Request METABOLIC PANEL, COMPREHENSIVE (68673)Indication: Chest pain On: 96-Rma-064113:40 Request URINE VERÓNICA CULTURE (SHARIFA COL COUNT) (41263)Indication: Dysuria (Renamed from Difficult or painful urination) On: 45-Bko-786635:24 Request Metabolic Panel, Comprehensive (59965)Indication: Hypertension (Renamed from BP (high blood pressure)) On: 30-Exm-300491:56 Request Metabolic Panel, Basic (65982)Indication: Elevated LFTs On: 42-Nne-099456:16 Request 24 hour urine for Protein (28847)Indication: Elevated serum creatinine On: 74-Gwn-105996:40 Request Comments: recheck in one week CREATININE CLEARANCE (80474)Indication: Elevated serum creatinine On: 88-Sne-735231:39 Request Comments: recheck in one week Blood Glucose , Office (32089)Indication: Diabetes mellitus type II, controlled On: 60-Dob-66596:29 Request METABOLIC PANEL, COMPREHENSIVE (68181)Indication: Hypokalemia (Renamed from Decreased potassium in the blood) On: 00-Lgq-552953:52 Request MICROALBUMIN: CREATININE RATIO (03602) AND (90357)Indication: Diabetes mellitus type II, controlled On: 83-Vye-125080:14 Request FLURESCNT ANTIB SCRN EA (77425) celiac profileIndication: Irritable bowel syndrome (Renamed from Functional bowel disease) On: 3-Wxf-744611:58 Request IMMUNOASSAY, ANALYTE (NON-INFECT) (34278) celiac profileIndication: Irritable bowel syndrome (Renamed from Functional bowel disease) On: 1-Vkl-902926:58 Request IGA/IGD/IGG/IGM-EACH (89298) celiac profileIndication: Irritable bowel syndrome (Renamed from Functional bowel disease) On: 5-Uqe-133782:58 Request Potassium Serum (93759)Indication: Hypokalemia (Renamed from Decreased potassium in the blood) On: 9-Pie-138973:58 Request Celiac Disease Comphrehensive Profile (74054)Indication: Irritable bowel syndrome (Renamed from Functional bowel disease) On: 04-Nov-20129:56 Request METABOLIC PANEL, COMPREHENSIVE (82422)Indication: Diabetes mellitus type II, controlled On: 80-Iwg-621666:32 Request LIPID PANEL (99350)Indication: Diabetes mellitus type II, controlled On: 02-Lzk-020607:32 Request CBC WITH MANUAL DIFF (52634)Indication: Diabetes mellitus type II, controlled On: 81-Oqt-650027:32 Request MICROALBUMIN: CREATININE RATIO (21776) AND (64996)Indication: Diabetes mellitus type II, controlled On: :32 Request TSH (23978)Indication: Hypothyroidism On: :32 Request TSH (94631)Indication: Hypothyroidism On: : Request MICROALBUMIN: CREATININE RATIO (37475) AND (54077)Indication: Diabetes mellitus type II, controlled On: : Request METABOLIC PANEL, COMPREHENSIVE (94682)Indication: Diabetes mellitus type II, controlled On: : Request LIPID PANEL (04516)Indication: Diabetes mellitus type II, controlled On: : Request CBC WITH MANUAL DIFF (00004)Indication: Diabetes mellitus type II, controlled On: : Request URINE VERÓNICA CULTURE-SHARIFA COL COUNT (21556)Indication: Dysuria (Renamed from Difficult or painful urination) On: 98-Wky-810145:15 Request URINE VERÓNICA CULTURE-SHARIFA COL COUNT (93756)Indication: Dysuria (Renamed from Difficult or painful urination) On: 45-Yxd-898669:55 Request Ferritin (86355)Indication: Elevated LFTs On: 29-Hia-611249:50 Request Comments: repeat now per Dr. Cabral with iron level Iron Binding Capacity (TIBC) (41133)Indication: Elevated LFTs On: 90-Xcw-607291:50 Request Iron (38771)Indication: Elevated LFTs On: 07-Mox-068337:49 Request CBC (Auto) (87902)Indication: Thrombocytopenia, unspecified On: 06-Fau-385336: Request Comments: nonclumping tube HEPATITIS PANEL (14458)Indication: Elevated LFTs On: : Request FERRITIN (53285)Indication: Elevated LFTs On: 43-Zgh-885520:00 Request CERULOPLASMIN (46455)Indication: Elevated LFTs On: 35-Eml-747220:00 Request ASM (ANTI SMOOTH MUSCLE ANTIBODY) (66377)Indication: Elevated LFTs On: 30-Nek-234292:00 Request GAYATRI (ANTINUCLEAR ANTIBODY) (57178)Indication: Elevated LFTs On: 51-Fxy-560122:00 Request HEPATITIS PANEL (38930)Indication: Elevated LFTs On: 29-Edk-03626:01 Request TSH (18214)Indication: Hypothyroidism On: 39-Qmj-559245:16 Request LIPID PANEL (44558)Indication: Diabetes mellitus type II, controlled On: 65-Pun-870674:15 Request DRUG ASSAY-LITHIUM (36314)Indication: Bipolar affective disorder, mixed On: 30-Qkk-726747:14 Request Metabolic Panel, Basic (52641)Indication: Bipolar affective disorder, mixed On: 95-Irx-249396:13 Request Metabolic Panel, Basic (38216)Indication: Bipolar affective disorder, mixed On: 76-Abp-285313:22 Request DRUG ASSAY-LITHIUM (07923)Indication: Bipolar affective disorder, mixed On: 95-Utl-453208:22 Request Comments: 2 months Urinalysis, Office (85732)Indication: Urinary frequency On: 24-Ino-075801:27 Request Comments: done pms HEPATIC FUNCTION PANEL (48617)Indication: Other and unspecified hyperlipidemia On: 1-Mzp-458800:45 Request Lipid Panel (88090)Indication: Other and unspecified hyperlipidemia On: 6-Vlw-022481:45 Request Lipid Panel (46488)Indication: Other and unspecified hyperlipidemia On: 69-Mzz-212904:17 Request CBC, Platelets & Auto Diff (49820)Indication: Other and unspecified hyperlipidemia On: 80-Ahx-328109:17 Request Metabolic Panel, Comprehensive (56285)Indication: Other and unspecified hyperlipidemia On: 88-Qof-929343:17 Request TSH (01372)Indication: Hypothyroidism On: 50-Myk-565815:15 Request Metabolic Panel, Basic (44039)Indication: Other and unspecified hyperlipidemia On: :55 Request Lipid Panel (70098)Indication: Other and unspecified hyperlipidemia On: :55 Request Comments: in three months (approximately) CBC (Auto) (83159)Indication: Intestinal disaccharidase deficiencies and disaccharide malabsorption On: :56 Request Metabolic Panel, Comprehensive (67940)Indication: Intestinal disaccharidase deficiencies and disaccharide malabsorption On: :56 Request Lipid Panel (34337)Indication: Intestinal disaccharidase deficiencies and disaccharide malabsorption On: 05-Gov-09548:56 Request Comments: in three months (approximately) MICROALBUMIN 24 HOUR OR RANDOM On: 11-Mnl-796486:04 Request (97790) CREATININE CLEARANCE (83958) On: 62-Gjo-012776:03 Request CBC (Auto) (36181)Indication: Unspecified disorder of kidney and ureter On: :53 Request Lipid Panel (10581)Indication: Unspecified disorder of kidney and ureter On: :53 Request Metabolic Panel, Comprehensive (81070)Indication: Unspecified disorder of kidney and ureter On: :53 Request TSH (65599)Indication: Hypothyroidism On: :53 Request TSH (45462)Indication: Hypothyroidism On: 68-Yeu-163638:18 Request URINALYSIS (97119)Indication: Intestinal disaccharidase deficiencies and disaccharide malabsorption On: 49-Nmj-957377:43 Request CBC (Auto) (83707)Indication: Intestinal disaccharidase deficiencies and disaccharide malabsorption On: 36-Hfd-829970:43 Request Lipid Panel (41012)Indication: Intestinal disaccharidase deficiencies and disaccharide malabsorption On: 90-Cso-199421:43 Request Metabolic Panel, Comprehensive (79962)Indication: Intestinal disaccharidase deficiencies and disaccharide malabsorption On: 41-Ulu-727461:43 Request Planned Procedures COMPUTED TOMOGRAPHY ANGIOGRAPHY OF On: 01-Aug-2018 Intent CHEST FOR PULMONARY EMBOLISM Comments: stat for PE (78767)By: Eli Bowman CNP, CNP, Mary E Echo CompleteBy: Eli Bowman CNP On: 29-Jul-2018 Intent Eli Bowman CNP Spirometry (60555)By: Colby WATTERS On: 29-Jul-2018 Intent Eli Mcelroy CNP Holter Monitor 24 hrsBy: Colby WATTERS, On: 29-Jul-2018 Intent Eli Mcelroy CNP CHEST XRAY, PA & LATERAL (06033)By: On: 29-Jul-2018 Intent Eli Bowman CNP, CNP, Mary E ELECTROCARDIOGRAM, COMPLETE (ECG) On: 29-Jul-2018 Intent (04049)By: Colby WATTERS Eli Bowman Comments: sinus rhythm Eli WATTERS Aerosol Treatment (65033)By: Colby On: 29-Jul-2018 Intent Eli WATTERS CNP, Mary E Flu Vaccine (Quadrivalent) 58704Am: On: 22-Jul-2018 Intent Tejal Ceron Comments: Lot #[id number]-L dltd, IMDose prefilled syringegiven by: Rosalie Ceron MA Toradol Injection, 30 mg (J1885)By: On: 09-May-2018 Intent Nunu Root Comments: lot [id number] 12/2029mgIMleft gmas, 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 SCREENING DIGITAL TOMOSYNTHESIS OF On: 18-Apr-2018 Intent BREAST (52578)By: Colby WATTERS Eli Mcelroy CNP DEXA SCAN AXIAL SKELETON (14283)By: On: 18-Apr-2018 Intent Colby WATTERSEli CNP, Mary E Toradol Injection, 30 mg (J1885)By: On: 22-Mar-2018 Intent Nunu Root Comments: toradol 30mg injection lot:[id number]:10/2019R GMpt tolerated wellMSMITH,CHILDHOOD DEVELOPMENT TEACHER COMPLETE ELECTROMYOGRAPHY (EMG) WITH On: 22-Mar-2018 Intent NERVE CONDUCTION STUDIES OF EACH Comments: Bilateral lower legs EXTREMITY (11147)By: Nunu Root EMGBy: José Miguelsilvano Eli WATTERS CNP, On: 03-Jan-2018 Intent Eli Lubin Comments: both legs Nerve ConductionBy: Lisajanna Eli WATTERS On: 03-Jan-2018 Intent Eli Hurtado CNP Comments: both legs Toradol Injection, 30 mg (J1885)By: On: 23-Dec-2017 Intent Mayda Dobbins DO Comments: toradol 30mg injectionlot: [id number]: 06/2018L GMpt tolerated wellAD CHILDHOOD DEVELOPMENT TEACHER Spirometry (93798)By: Dk, On: 16-Nov-2017 Intent Nunu Comments: Normal spirometry Aerosol Treatment (21237)By: Shilpi On: 30-Aug-2017 Mayda Bailey DO Comments: less noise with forced exp Solu- Medrol Injection, 125mg On: 30-Aug-2017 Intent (J2930)By: Mayda Dobbins DO Comments: solumedrol 125mg injectionlot: [id number]: GMpt tolerated wellAD CHILDHOOD DEVELOPMENT TEACHER Radiology - Chest- PA and LatBy: On: 30-Aug-2017 Intent Mayda Dobbins DO Solu- Medrol Injection, 125mg On: 26-Aug-2017 Intent (J2930)By: Mayda Dobbins DO Comments: solumedrol 125mg injectionlot: [id number]: 12/2019L GMpt tolerated wellAD CHILDHOOD DEVELOPMENT TEACHER Aerosol Treatment (21055)By: Shilpi On: 26-Aug-2017 Intent Mayda COLEMAN Comments: [place] Spirometry (35668)By: Shilpi COLEMAN, On: 26-Aug-2017 Intent Mayda Comments: mild obstruction Radiology - Shoulder - RightBy: On: 20-Jul-2017 Intent Edita Cabral MD Radiology - Lumbar SpineBy: Misha On: 20-Jul-2017 Intent Edita PROCTOR DRAIN/INJECT MAJOR JOINT OR BURSA On: 13-Apr-2017 Intent (79136)By: Eil Bowman CNP Comments: injevted left knee today Eli WATTERS PHYSICAL THERAPY (04892)By: Dk On: 08-Apr-2017 Intent Nunu Radiology - Knee - RightBy: Dk On: 08-Apr-2017 Intent Nunu Radiology - Knee - LeftBy: Dk, On: 08-Apr-2017 Intent Nunu ATTENDED SLEEP STUDY (94349)By: On: 18-Jan-2017 Intent Eli Bowman CNP, CNP, Mary E DEXA SCAN AXIAL SKELETON (68461)By: On: 24-Nov-2016 Intent Donnie Gonzales MD MAMMOGRAM, SCREENING, BOTH BREAST On: 24-Nov-2016 Intent (49623)By: Donnie Gonzales MD US KIDNEY COMPLETE (83820)By: Janet On: 16-Jul-2016 Intent Donnie PROCTOR EsophagramBy: Edita Cabral MD On: 06-Feb-2016 Intent Comments: 12mm tablet X-RAY EXAM OF ESOPHAGUS (04172) - On: 04-Feb-2016 Intent Barium Swallow with 12mm tabletBy: Donnie Gonzales MD Carotid DopplerBy: Edita Cabral MD On: 16-Sep-2015 Intent M TD VACCINE ADULT (17037)By: Misha On: 16-Sep-2015 Intent Edita PROCTOR TDAP VACCINE >7 IM (36548)By: On: 16-Sep-2015 Intent Edita Cabral MD Pap Smear, Medicare (Q0091)By: On: 16-Sep-2015 Intent Edita Cabral MD MAMMOGRAM, SCREENING, BOTH BREAST On: 16-Sep-2015 Intent (56490)By: Edita Cabral MD Renal Artery DopplerBy: Misha PROCTOR, On: 04-Feb-2015 Intent Edita Clinton Ultrasound - RenalBy: Misha PROCTOR, On: 04-Feb-2015 Intent Edita Clinton DEXA SCAN AXIAL SKELETON (31616)By: On: 17-Jan-2015 Intent Edita Cabral MD Comments: postmenapausal MAMMOGRAM, SCREENING, BOTH BREAST On: 17-Jan-2015 Intent (61950)By: Edita Cabral MD Radiology - Shoulder - [...] with back pain- stat call results Spirometry (15284)By: Thee COLEMAN, On: 30-Apr-2014 Intent Erna Schaefer Comments: good effort and curve normal ELECTROCARDIOGRAM, COMPLETE (ECG) On: 30-Apr-2014 Intent (41429)By: Erna Kingston DO Eprescribed prescriptions (G8553)By: On: 12-Feb-2014 Intent Edita Cabral MD SPECIMEN HANDLING/TRANSPORT On: 15-Jan-2014 Intent (85747)By: Eli Bowman CNP, CNP, Mary E Eprescribed prescriptions (G8553)By: On: 11-Oct-2013 Intent Nunu Stephens LPN ADMINISTRATION OF INFLUENZA VIRUS On: 24-Jul-2013 Intent VACCINE (G0008)By: Edita Cabral MD FLU VAC, SPLIT, >3 YEARS, INTRAMUSC On: 24-Jul-2013 Intent (64510)By: Edita Cabral MD Echo CompleteBy: Edita Cabral MD On: 27-Jun-2013 Intent Carotid DopplerBy: Edita Cabral MD On: 27-Jun-2013 Intent M Eprescribed prescriptions (G8553)By: On: 27-Jun-2013 Intent Teressa Molnia LPN L MRI - BrainBy: Eli Bowman CNP On: 16-Jun-2013 Intent Eli Bowman CNP SPECIMEN HANDLING/TRANSPORT On: 16-May-2013 Intent (83009)By: Seu Ewing LPN Holter Monitor 24 hrsBy: Colby WATTERS, On: 28-Apr-2013 Intent Eli Mcelroy CNP ELECTROCARDIOGRAM, COMPLETE (ECG) On: 28-Apr-2013 Intent (79590)By: Eli Bowman CNP Comments: sinus bradycardia Eli WATTERS Bio Z (33660)By: Eli Bowman CNP On: 28-Apr-2013 Intent Eli Bowman CNP EKG (20311)By: Edita Cabral MD On: 28-Mar-2013 Intent Comments: see scanned document of test done to see results reviewed today with patient Eprescribed prescriptions (G8553)By: On: 28-Mar-2013 Intent Jason Molina LPNn L Eprescribed prescriptions ([id number])By: On: 08-Dec-2012 Intent Nunu Stephens LPN Spirometry ([id number])By: Shilpi COLEMAN, On: 25-Nov-2012 Intent Mayda Comments: Computer not running so not able to perform test Aerosol Treatment ([id number])By: Shilpi On: 25-Nov-2012 Intent Mayda COLEMAN Spirometry ([id number])By: Thee COLEMAN, On: 21-Nov-2012 Intent Erna A Comments: good effort and curve normal Radiology - Chest- PA and LatBy: On: 21-Nov-2012 Intent Thee COLEMAN Erna A Eprescribed prescriptions ([id number])By: On: 21-Nov-2012 Intent Makayla Dillard LPN ADMINISTRATION OF PNEUMOCOCCAL On: 31-Oct-2012 Intent VACCINE (G0009)By: Edita Cabral MD Comments: Lot #[id number]-right deltoidDose0.5mlgiven by: [facility] per fax. M PNEUM VAC ADLT/IMUMNOSPR, SBC/INTRM On: 31-Oct-2012 Intent ([id number])By: Jodi Carvalho LPN Eprescribed prescriptions ([id number])By: On: 18-Oct-2012 Intent Teressa Molina LPN FLU VAC, SPLIT, >3 YEARS, INTRAMUSC On: 01-Jul-2012 Intent ([id number])By: Eli Bowman CNP Comments: Lot:[id number]:6.13Amt:prefilled syringeSite: L Dltd, IMGiven by: MARISA Torres CNP, Mary E ADMINISTRATION OF INFLUENZA VIRUS On: 01-Jul-2012 Intent VACCINE (G0008)By: Eli Bowman CNP, CNP, Mary E SPECIMEN HANDLING/TRANSPORT On: 01-Jul-2012 Intent ([id number])By: Sue Ewing LPN Solu -Medrol Injection, 125 mg On: 23-Nov-2011 Intent ([id number])By: Edita Cabral MD Comments: Lot [id number]-R hip, IMDose 125mggiven by:Teressa Radiology - ChestBy: Misha PROCTOR, On: 23-Nov-2011 Intent Edita Clinton Comments: wet read Pulse Oximetry ([id number])By: Benoit On: 23-Nov-2011 Intent AKBAR Aerosol Treatment ([id number])By: Colby On: 16-Nov-2011 Intent Eli WATTERS CNP, Mary E Pulse Oximetry ([id number])By: Vin On: 16-Nov-2011 Intent Lynn Comments: 93 FLU VAC, SPLIT, >3 YEARS, INTRAMUSC On: 16-Nov-2011 Intent ([id number])By: Lynn Banuelos Comments: received at work [employer]CIMEN HANDLING/TRANSPORT On: 14-Sep-2011 Intent ([id number])By: Edita Cabral MD SPECIMEN HANDLING/TRANSPORT On: 26-Aug-2011 Intent ([id number])By: Sue Ewing LPN Ultrasound - LiverBy: Misha PROCTOR, On: 11-Jun-2011 Intent Edita Clinton EKG ([id number])By: Edita Cabral MD On: 16-Feb-2011 Intent MAMMOGRAM, SCREENING, BOTH BREASTS On: 13-Mar-2010 Intent ([id number])By: Edita Cabral MD MAMMOGRAM, SCREENING, BOTH BREASTS On: 06-Mar-2010 Intent ([id number])By: Edita Cabral MD MAMMOGRAM, SCREENING, BOTH BREASTS On: 13-Feb-2010 Intent ([id number])By: Edita Cabral MD Spirometry ([id number])By: Misha PROCTOR, On: 01-Oct-2009 Intent Edita Clinton ELECTROCARDIOGRAM, COMPLETE (ECG) On: 01-Oct-2009 Intent ([id number])By: Edita Cabral MD Pulse Oximetry ([id number])By: Benoit On: 01-Oct-2009 Intent AKBAR Spirometry (06088)By: Thee COLEMAN, On: 30-Jul-2009 Intent Erna Schaefer Comments: good effort and curve normal Radiology - Chest- PA and LatBy: On: 30-Jul-2009 Intent Erna Kingston DO Pulse Oximetry ([id number])By: Vin, On: 30-Jul-2009 Intent Lynn Comments: 94%repeat 97-98 EKG ([id number])By: Erna Kingston DO On: 14-Jul-2009 Intent Comments: ekg showed normal sinus rhythym, normal axis, no acute st/t wave changes old t wave inversion noted on previous ekg Pulse Oximetry ([id number])By: Vin, On: 11-Jul-2009 Intent Lynn Comments: 97% Solu -Medrol Injection, 125 mg On: 09-Jul-2009 Intent ([id number])By: Erna Kingston DO Comments: Lot #:[id number] date:mount given:125mgRoute:IM Site given:left buttockGiven by: MARIA DOLORES Cordon Aerosol Treatment ([id number])By: Thee On: 09-Jul-2009 Erna Bailey DO Pulse Oximetry ([id number])By: Thee COLEMAN, On: 09-Jul-2009 Intent Erna A Comments: repeat after treatment was 96 Pulse Oximetry ([id number])By: Vin, On: 09-Jul-2009 Intent Lynn Comments: 93% Spirometry ([id number])By: Gildardo SOUSA, On: 25-Jan-2009 Intent Sue MAMMOGRAM, SCREENING, BOTH BREASTS On: 29-May-2008 Intent ([id number])By: Edita Cabral MD EKG ([id number])By: Edita Cabral MD On: 29-May-2008 Intent Spirometry ([id number])By: Misha PROCTOR, On: 27-Dec-2007 Intent Edita Clinton Ultrasound - ThyroidBy: Misha PROCTOR, On: 22-Mar-2007 Intent Edita Clinton MAMMOGRAM, SCREENING, BOTH BREASTS On: 22-Mar-2007 Intent ([id number])By: Edita Cabral MD MAMMOGRAM, SCREENING, BOTH BREASTS On: 22-Mar-2007 Intent ([id number])By: Edita Cabral MD ELECTROCARDIOGRAM, COMPLETE (ECG) On: 22-Mar-2007 Intent ([id number])By: Edita Cabral MD Planned Medications INJECTION, KETOROLAC TROMETHAMINE, PER 15 MG Ordered: 23-Dec-2017 Pending Mayda Dobbins DO INJECTION, KETOROLAC TROMETHAMINE, PER 15 MG Ordered: 22-Mar-2018 Pending uNnu Root INJECTION, KETOROLAC TROMETHAMINE, PER 15 MG [...] disease, bilateral : DISCONTINUED - POTASSIUM SERUM (11872) Indication: Active Meniere's disease, bilateral Elevated LFTs : DISCONTINUED - HEPATIC FUNCTION PANEL (51550) Indication: Elevated LFTs Diabetes mellitus type II, [...] reveiwing printed for pt to take to [facility] , [ADDITIONAL REASON] Weight Gain - [...] care, told to go to ER at [facility] diagnosed with Esophagitis was given [...] occurred following a specific injury (lifting at [employer] for years but no fall). The injury [...] procedure will be [facility] (Dr Alexa Swanosn).Encounter Diagnosis: End: 16-Jul-2016 18:45 Pre-operative exam (Renamed [...] bathroom. The patient has completed the f [facility] preventative measures: PAP smear (needs updated ), mammography (needs updated ) and colonoscopy (needs updated however patient refuse to have done bc she was hospitalized with the last one with infection for 5 days ). 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 The patient has noticed [...] for Tdap vaccination (Renamed from Need for tzzdmigdiz-nhadzkh-cuqsnvzdf (Tdap) vaccine, adult/adolescent), Goiter (Renamed from Big [...] pressure, high cholesterol, hypothyroid and other (obesity, AMRTHA, IBS, memory loss, vitamin d def., insomnia, [...] (240.9), Hypothyroidism(244.9) [facility] Payers [employer] [place] [employer] Lilly Toro; a guarantor
--- OUTSIDE RECORDS SUMMARY | 2018-11-25 15:25 | XMS RPT_ITS | Continuity of Care Document ---
:1950 Author Organization [facility] Address [address] [place] [address] Phone Care Team Providers Name Role Phone Colby JANENEEli E Unavailable Mina Baer MD Unavailable Nhung Duval Unavailable [facility], [facility] Unavailable Kasi Scott Unavailable Mraiia Zhang Unavailable Dr. Junior Pena Unavailable Navdeep [...] with bottles, extensive review with nurse and [facility], med list updated Status: Active Postmenopausal (Renamed from Postmenopausal status) (Z78.0, V49.81) Status: Active Pregnancies () Comments: 2 Status: Active S/P hysterectomy (Z90.710, V88.01) Comments: for endometrial hyperplasia 2015 Status: Active Shortness of breath (R06.02, 786.05) Status: Active Sleep apnea (G47.30, 780.57) Comments: needs repeat sleep study at [facility] per [facility] to get back on cpap Status: [...] Caitlin Delaney Start : 29-Jul-2018 Active Ergocalciferol 66387 UNIT Oral Capsule 1 Capsule twice weekly [...] tablet daily (15 MG) Active Comments:Catrachito Pen [place] /16 31G X 5 MM Miscellaneous 1 [...] 3 Ordered:18-Apr-2018 Cimitchsilvano WATTERS, Eli Mejiasilvano WATTERS, lEi Lubin Start : 18-Apr-2018 Active Symbicort 80-4.5 [...] 28 {Tablet} Refills: 0 Ordered:06-Jan-[address] MAINTENANCE TECHNICIAN, Eli [facility] Eli Lubin Start : 06-Jan-2016 End : 20-Jan-2016 Inactive AZITHROMYCIN, 250MG (Oral Tablet) 2 (two) Tablet today then 1 qd for 4 days for 0 days Quantity: 6 {Tablet} Refills: 0 Ordered:08-Dec-2012 Nunu Stephens LPN Start : 21-Nov-2012 End : 08-Dec-2012 Inactive BACTRIM DS, 800-160MG (Oral Tablet) 1 Tablet bid for 7 days Quantity: 14 {Tablet} Refills: 0 Ordered:16-May-[address] MAINTENANCE TECHNICIAN, Eli [facility], Elif Start : 16-May-2013 End : 23-May-2013 Inactive Cheratussin AC 100-10 MG/5ML Oral Syrup 1 Teaspoon(s) qhs prn cough for 0 days Quantity: 8 {Fluid_Ounce} Refills: 0 Ordered:16-Jun-2016 Priya Gillette Start : 12-Mar-2016 End : 16-Jun-2016 Inactive Comments:eight CIPRO, 500MG (Oral Tablet) 1 Tablet bid for 7 days Quantity: 14 {Tablet} Refills: 0 Ordered:15-Jan-2014 [facility], [facility], Elif Start : 15-Jan-2014 End : [...] : 07-Nov-2012 End : 12-Feb-2014 Inactive Drisdol 59326 UNIT Oral Capsule 1 (one) Capsule once [...] Quantity: 90 {Tablet} Refills: 0 Ordered:23-Apr-[address] MAINTENANCE TECHNICIAN, Eli ECjeannea JANENE, Elif Start : 23-Apr-2017 [...] : 29-Jul-2010 End : 30-Sep-2010 Inactive Nystatin 367928 UNIT/ML Mouth/Throat Suspension 4-6 Milliliter swish and [...] : 12-Dec-2015 End : 16-Jun-2016 Inactive Comments:per [facility] er Topamax 100 MG Oral Tablet [...] 03-Jan-2018 Inactive Comments:1 rambo as directed ZOSTAVAX, 69857UVH/0.65ML (Subcutaneous Solution Reconstituted) 1 For Solution once [...] Start : 04-Jan-2017 End : 04-Jan-2017 Discontinued Comments:[facility] er FLEXERIL, 10MG (Oral Tablet) 1 [...] : 13-Nov-2013 End : 13-Nov-2013 Discontinued Comments:ID [id number] Medrol 4 MG Oral Tablet Therapy Pack [...] 18-Jan-2017 End : 27-Jul-2017 Discontinued Vitamin D3 55795 UNIT Oral Tablet 1 (one) Tablet Tablet once a week for 60 days Quantity: 8 {Tablet} Refills: 0 Ordered:04-Jan-2017 Slarb RAILROAD FIRER, Naomi Start : 24-Nov-2016 End : 04-Jan-2017 [...] for Tdap vaccination (Renamed from Need for evgsqxxtor-uckxuuw-cpuzpfuwk (Tdap) vaccine, adult/adolescent) (Z23, V06.1) Status: Inactive [...] of wound infection, PE.Not malnourishedLabs:CBCCMPPT/INRtype and screen gel(61427)EK06/10/16: no acute changesHas good social support and [...] under good control Patient to use Mucinex udsr-pej-vxqtjmo which helped her. Status: Inactive as of [...] Completed Comments: 2000 Tubal ligation 1963 Completed [facility] Left endolymphatic sac Completed decompression with shunt and middle ear infusion with decadron 03/05 Date Value Details 01-Aug-2018 CTA Chest W/WO Contrast Result: Comments: See Note; NOTES: [facility] Imaging Services [address] [place] [address] CTA Chest W/WO Contrast MR#: [id number] Acct: [id number] Name: ELIZABETH TORO Rep #: [id number] : 1950 F 67 From: Hardeep Calix MD PCP: Eli Bowman NP Status: REG CLI Study: CTA Chest W/WO Contrast Date of Exam: 08/01/18 Exam# [id number] Ordering Dr: Eli Bowman STUDY: CTA CHEST/T [...] Service support , CC: Eli Bowman NP Product Support Sales Representative: Signed 29-Jul-2018 Chest PA and Lateral Result: Comments: See Note; NOTES: [facility] Imaging Services [address] [place] [address] Chest PA and Lateral MR#: [id number] Acct: [id number] Name: ELIZABETH TORO Rep #: [id number] : 1950 F 67 From: Cami Klein MD PCP: Eli Bowman NP Status: REG CLI Study: Chest PA and Lateral Date of Exam: 07/29/18 Exam# [id number] Ordering Dr: Eli Bowman STUDY: X-RAY CHEST [...] Service support , CC: Eli Bowman NP Product Support Sales Representative: Signed 21-Apr-2018 Downtime Report Result: Comments: See Note; NOTES: [facility] Medical Records Department [address] [place] [address] Downtime Report MR#: [id number] Acct: [id number] Name: ELIZABETH TORO Rep #: : 1950 67 From: Alon Klein PCP: Eli Bowman NP Status: REG RCR This patient was seen during an EMR downtime April 04, 2018 - April 11, 2018. This patient may have a combination of p aper and electronic documentation or all paper documentation. All documentation is viewable within the e-chart portion of [employer] for each patient visit. 12-Apr-2018 NCS and/or EMG Patient Result: Comments: See Note; NOTES: [facility] Pulmonary Services/Neurology [address] [place] [address] MR#: [id number] Acct: [id number] Name: ELIZABETH TORO Rep #: [id number] : 1950 67 From: Kal Hernandez MD Referring Dr: Eli Bowman NP Status: REG CLI Ordering Dr: Date: Location: [facility] Sex: F C NCS and/or [...] ____ Kal Hernandez MD CC: Eli Bowman NAMED ACCOUNT EXECUTIVE; Kal Hernandez MD Date Dictated: 04/12/18949 Date Transcribed: 04/12/18949 Product Support Sales Representative: NF Signed 01-Feb-2018 PT D/C Summary (1) Result: Comments: See Note; NOTES: [facility] Physical Therapy [facility] [address] [place] [address]. [address] [place] [address] Fax REHABILITATION SERVICES DISCHAR SUMMARY MR#: [id number] Acct: [id number] Name: ELIZABETH TORO Rep #: [id number] : 1950 67 From: Cristopher Francis PT, ATC Referring DrJose: Mayda Dobbins DO Status: REG RCR Insurance: [facility] PART A B PHYSICIAN [employer] INS [...] please feel free to call me at [phone]. Thank you for the referral of this patient. Sincerely, Cristopher Francis, PT, <Electronically signed by Andrea Francis PT, ATC> 02/01/18 0823 CC: Eli Bowman NAMED ACCOUNT EXECUTIVE; Mayda Dobbins DO [facility] Signed 30-Dec-2017 Inital Evaluation (1) - PT Result: Comments: See Note; NOTES: [facility] Therapy [facility] [address] [place] [address]. [address] [place] [address] Fax REHABILITATION SERVICES INITIAL EVALUATION MR#: [id number] Acct: [id number] Name: ELIZABETH TORO Rep #: [id number] : 1950 67 From: Cristopher Francis PT, [...] to be FAXED BACK to us at [phone] for Medicare purposes. Please let me know if there are questions or concerns regarding this plan of care. Physician Signature: Date: <Electronically signed by Cristopher Francis PT, ATC> 12/30/17 1056 CC: Eli Bowman NP; Mayda Dobbins DO DT: 0 12/30/17 [facility] Signed For Medicare only, by signing this I certify the plan of care. Physicians Signature Date 08-Oct-2017 Operative Report Result: Comments: See Note; NOTES: [facility] Medical Records Department [address] [place] [address] Operative Report 10/08/172017 MR#: [id number] Acct: [id number] Name: XAVIER TORO LEILANI cShaefer Rep #: [id number] : 1950 67 From: Oscar Winston MD PCP: Eli Bowman NP Status: REG [facility] Y Location: [place] [address] Problem List (1) Intrinsic (urethral) sphincter deficiency [...] Discharge Instruction Result: Comments: See Note; NOTES: [facility] Medical Records Department [address] [place] [address] Instructions for Home/Discharge Instructions 10/08/171950 MR#: [id number] Acct: [id number] Name: ELIZABETH TORO Rep #: [id number] : 1950 67 From: Oscar Winston MD PCP: Eli Bowmna NP Status: REG MDC Discharge Diet: Light diet - advance as [...] and Lateral Result: Comments: See Note; NOTES: [facility] Imaging Services [address] [place] [address] Chest PA and Lateral MR#: [id number] Acct: [id number] Name: ELIZABETH TORO Rep #: [id number] : 1950 F 67 From: Yury Arthur MD PCP: Eli Bowman Status: REG CLI Study: Chest PA and Lateral Date of Exam: 08/30/17 Exam# [id number] Ordering Dr: Mayda Dobbins DO STUDY: X-RAY [...] , CC: Eli Bowman; Mayda Dobbins DO Product Support Sales Representative: Signed 20-Jul-2017 L/S Spine Min 4 Views Result: Comments: See Note; NOTES: [facility] Imaging Services [address] [place] [address] L/S Spine Min 4 Views MR#: [id number] Acct: [id number] Name: ELIZABETH TORO Rep #: [id number] : 1950 F 66 From: Dionte Lujan DO PCP: Eli Bowman Status: REG CLI Study: L/S Spine Min 4 Views Date of Exam: 07/20/17 Exam# [id number] Ordering Dr: Edita Cabral MD STUDY: X-RAY [...] Fax CC: Eli Bowman; Edita Cabral MD Product Support Sales Representative: Signed 20-Jul-2017 Shoulder min 2 Views Result: Comments: See Note; NOTES: [facility] Imaging Services [address] [place] [address] Shoulder min 2 Views MR#: [id number] Acct: [id number] Name: ELIZABETH TORO Rep #: [id number] : 1950 F 66 From: Dionte Lujan DO PCP: Eli Bowman Status: REG CLI Study: Shoulder min 2 Views Date of Exam: 07/20/17 Exam# [id number] Ordering Dr: Edita Cabral MD STUDY: X-RAY - RIGHT [facility] REASON FOR EXAM: Female, 66 years [...] , CC: Eli Bowman; Edita Cabral MD Product Support Sales Representative: Signed 11-May-2017 PT D/C Summary (1) Result: Comments: See Note; NOTES: [facility] Physical Therapy [facility] [address] [place] [address] Fax REHABILITATION SERVICES DISCHAR GE SUMMARY MR#: [id number] Acct: [id number] Name: ELIZABETH TORO Rep #: [id number] : 1950 66 From: Naomi Osorio MPT [...] please feel free to call me at [phone]. Thank you for the referral of this patient. Sincerely, Naomi Osorio <Electronically signed by Naomi Osorio MPT> 09/17 0919 CC: Nunu Root; Eli Bowman Signed 14-Apr-2017 Inital Evaluation (1) - PT Result: Comments: See Note; NOTES: [facility] [address] [place], [place] [address] Fax REHABILITATION SERVICES INITIAL EVALUATION MR#: [id number] Acct: [id number] Name: ELIZABETH TORO Rep #: [id number] : 1950 66 From: Naomi COMER Referring [...] to be FAXED BACK to us at [phone] for Medicare purposes. Please let me know if there are questions or concerns regarding this plan of care. Physician Signature: Date: <Electronically signed by Naomi Osorio MPT> 04/14/17 1906 CC: Nunu Root; Eli Bowman Signed For Medicare only, by sign ing this I certify the plan of care. Physicians Signature Date 08-Apr-2017 Knee 4 or More Views Result: Comments: See Note; NOTES: [facility] Imaging Services [address] [place] [address] Shaddadamian 4d Knee 4 or More Views MR#: [id number] Acct: [id number] Name: ELIZABETH TORO p #: [id number] : 1950 F 66 From: Chalino Mancia MD PCP: Eli Bowman Status: REG CLI Study: Knee 4 or More Views Date of Exam: 04/08/17 Exam# [id number] Ordering Dr: Mayda Dobbins DO STUDY: X-RAY [...] , CC: Eli Bowman; Mayda Dobbins DO Product Support Sales Representative: Signed 08-Apr-2017 Knee 4 or More Views Result: Comments: See Note; NOTES: [facility] Imaging Services [address] [place] [address] Verdana 4d Knee 4 or More Views MR#: [id number] Acct: [id number] Name: ELIZABETH TORO p #: [id number] : 1950 F 66 From: Chalino Mancia MD PCP: Eli Bowman Status: REG CLI Study: Knee 4 or More Views Date of Exam: 04/08/17 Exam# [id number] Ordering Dr: Mayda Dobbins DO STUDY: X-RAY [...] , CC: Eli Bowman; Mayda Dobbins DO Product Support Sales Representative: Signed 15-Mar-2017 Sleep Study Report Result: Comments: See Note; NOTES: [facility] [address] [place] [address] Polysomnography with NCPAP MR#: [id number] Acct: [id number] Name: ELIZABETH TORO Viridiana p #: [id number] : 1950 66 From: Kal Hernandez MD [...] version). Please note that a reference to [facility] AHI in this report is consistent with the current Hypopnea definition according to Medicare Criteria and an AAS AHI reference is consistent with the current Hypopnea defini tion according to the AASM criteria and is recognized by [facility] as the RDI. PROCEDURE: The study was attended continuously by a polygraph technician. Monitored parameters included left and right [...] body mass index of 30.9 and an [place] Sleepiness Scale score of 6. There is [...] can be requested. Kal Hernandez MD T: [facility] JOB: [id number] CC: Kal Hernandez MD 1151 1151 03/15/17 1451 <Electronically signed by Kal Hernandez MD> Date Kal Hernandez MD Co-signature (if applicable) Date Signed 05-Jan-2017 Esophagus Only Result: Comments: See Note; NOTES: [facility] Imaging Services [address] [place] [address] Ale 4d Esophagus Only MR#: [id number] Acct: [id number] Name: ELIZABETH TORO Rep #: [id number] : 1950 F 66 From: Gabriela Ragland MD PCP: Eli Bowman Status: REG CLI Study: Esophagus Only Date of Exam: 01/05/17 Exam# [id number] Ordering Dr: Sofia Bragg MD STUDY: AIR-CONTRAST [...] , CC: Eli Bowman; Sofia Bragg MD Product Support Sales Representative: Signed 29-Dec-2016 Emergency Department Summary Result: Comments: See Note; NOTES: [facility] Medical Records Department [address] [place] [address] Emergency Department Summary MR#: [id number] Acct: [id number] Name: XAVIER TORO Rep #: [id number] : 1950 66 From: Sofia Bragg MD PCP: Eli Bowman Status: DEP ER DATE OF SERVICE: 12/29/2016 CHIEF COMPLAINT: Sore throat. HISTORY OF PRESENT ILLNESS: This is a 66-year- old woman that states she was at [employer], choked on a piece of potato 5 [...] the case with Dr. Pena who is cartoon animator for GI and he suggested ordering an [...] C: Eli Pena MD T: [facility] JOB: [id number] 12/29/16 <Electronically signed by Sofia Bragg MD> Date Sofia Bragg MD Cosigner Signature (If Indicated): Date CC: Eli Bowman; Junior Pena Date Dictated: 12/29/161828 Date Transcribed: 12/29/161828 Product Support Sales Representative: Signed 29-Dec-2016 Discharge Instruction Result: Comments: See Note; NOTES: [facility] Medical Records Department [facility] [place] [address] Discharge Instruction 12/29/161829 MR#: [id number] Acct: [id number] Name: ELIZABETH TORO Rep #: [id number] : 1950 66 From: Sofia Bragg MD [...] problems, contact your Primary Care Provider. Call [facility] ([phone] ) or report to the closest Emergency Room. Call 911 if necessary. 12/29/161832 <Electronically signed by Sofia Bragg MD> Date Sofia Siddiqui Signature (If Indicated): Date CC: Eli Bowman 07-Aug-2016 Sleep Study Report Result: Comments: See Note; NOTES: [facility] [address] [place] [address] Split Night Sleep Study MR#: [id number] Acct: [id number] Name: ELIZABETH TORO Rep #: [id number] : 1950 65 From: Kal Hernandez MD [...] version). Please note that a reference to [facility] AHI in this report is consistent with the current Hypopnea definition according to Medicare Criteria and an AAS AHI reference is consistent with the current Hypopnea defin ition according to the AASM criteria and is recognized by [facility] as the RDI. PROCEDURE: The study was attended continuously by a polygraph technician. Monitored parameters included left and right [...] a body mass index of 29.3 and [place] Sleepiness Scale score of 2. There is [...] humidity. Kal Hernandez MD T: [facility] JOB: [id number] CC : Kal Hernandez MD 1144 1144 08/07/16 0959 <Electronically signed by Kal Hernandez MD> Date Kal Hernandez MD Co-signature (if applicable) Date Signed -Aug-2016 Kidney and Bladder Result: Comments: See Note; NOTES: [facility] Imaging Services [address] [place] [address] Verdana 4d Kidney and Bladder MR#: [id number] Acct: [id number] Name: JAYYELIZABETH A Rep #: [id number] : 1950 F 65 From: Anibal Lan MD PCP: Donnie Gonzales Status: [facility] CLI Study: Kidney and Bladder Date of Exam: 08/04/16 Exam# [id number] Ordering Dr: Beto Henry MD UDY: RENAL [...] Anibal Lan MD at 11:16 EDT Tel [phone], Service support [phone], CC: Soumya Henry M.D.; Donnie Gonzales Product Support Sales Representative: Signed 23-Jun-2016 Operative Report Result: Comments: See Note; NOTES: [facility] Medical Records Department [address] [place] [address] Operative Report MR#: [id number] Acct: [id number] Name: ELIZABETH TORO Rep #: [id number] : 1950 65 From: Gm Brush MD PCP: Donnie Gonzales Status: REG [facility] DATE OF SERVICE: 06/22/2016 DATE OF PROCEDURE: June 22, 2016 SURGEON: Gm Brush M.D. APPLIANCE INSTALLER: Lia jacinto. ANESTHESIA: Gem Shelby and Frank [...] ovaries. Gm Brush MD T: [facility] JOB: [id number] 06/23/16 0725 <Electronically signed by Gm Brush MD> Date __ Gm Brush MD Cosigner Signature (If Indicated): Date CC: Gm Brush MD; Donnie Nolasco Dicta nahed: 06/22/161102 Date Transcribed: 06/22/161102 Product Support Sales Representative: Signed 22-Jun-2016 Discharge Instruction Result: Comments: See Note; NOTES: [facility] Medical Records Department [address] [place] [address] Instructions for Home/Discharge Instructions 06/22/16 0904 MR#: [id number] Acct: [id number] Name: ELIZABETH TORO Rep #: [id number] : 1950 65 From: Gm Brush MD PCP: Donnie Gonzales Status: REG [facility] Discharge Diet: No Restrictions [...] CC: Donnie Gonzales 10-Jun-2016 ELECTROCARDIOGRAM, COMPLETE (ECG) (05077) Result: [MEASUREMENTS ANALYSIS] Date of Test: 06/10/2016 09:39:53; Heart Rate: 58; [place] Interval: 208; QRS: 86; QT Interval: 480; Corrected QT Interval (QTc): 477; P Wave [place]: 45; QRS Wave [place]: 11; T Wave [place]: 23; Blood Pressure: 112/70 [ECG DIAGNOSTIC STATEMENTS] Date of Test: 06/10/2016 09:39:53; Summary: Sinus Bradycardia - Negative T-waves -May be normal - possible Anteroseptal ischemia. BORDERLINE 13-Apr-2016 Operative Report Result: Comments: See Note; NOTES: [facility] Medical Records Department [address] [place] [address] Operative Report MR#: [id number] Acct: [id number] Name: XAVIER TORO Rep #: [id number] : 1950 65 From: Gm Brush MD PCP: Edita Cabral MD Status: [facility] DATE OF SERVICE: 04/13/2016 DATE OF PROCEDURE: [...] curettings. Gm Brush MD T: N[facility] JOB: [id number] 04/13/16 1838 <Electronically signed by Gm Brush MD> Date Gm Brush MD Cosigner Signature (If Indicated): Date CC: Edita Young; Gm Brush MD Date Dictated: 04/13/16 1031 Date Transcribed: 04/13/161030 Product Support Sales Representative: Signed 13-Apr-2016 Discharge Instruction Result: Comments: See Note; NOTES: [facility] Medical Records Department [address] [place] [address] Instructions for Home/Discharge Instructions 04/13/16 1003 MR#: [id number] Acct: [id number] Name: ELIZABETH TORO Rep #: [id number] : 1950 65 From: Gm Brush MD [...] mg PO DAILY 04/10/16 Hydrocodone Bitart/Apap 5-325 [[place] 5MG-325MG] 1 tablet PO Q4H PRN PRN #10 tablet 04/13/16 The followi ng prescriptions were given: Hydrocodone Bitart/Apap 5-325 [[place] 5MG-325MG] 1 tablet PO Q4H PRN PRN #10 tablet PRN Reason: Mod-Severe Pain () Please Follow Up With: Gm Brush When: 2-3 jason bowers 04/13/16 1004 <Electronically signed by Gm Brush MD> Date Gm Brush MD CC: Edita Cabral MD 22-Mar-2016 Emergency Department Summary Result: Comments: See Note; NOTES: [facility] Medical Records Department [address] [place] [address] Emergency Department Summary MR#: [id number] Acct: [id number] Name: ELIZABETH TORO Rep #: [id number] : 1950 65 From: Nando Fuller MD [...] C: Edita Brush MD T: NTS JOB: [id number] 03/22/16 0247 <Electronically signed by Nando Fuller MD&a mp;#62; Date Nando Fuller MD Cosigner Signature (If Indicated): Date CC: Edita Cabral MD; Otilia Brush MD Date Dictated: 03/21/1650 Date Transcribed: 03/21/1650 Product Support Sales Representative: Signed 21-Mar-2016 Discharge Instruction Result: Comments: See Note; NOTES: [facility] Medical Records Department [address] [place] [address] Discharge Instruction 03/21/168 MR#: [id number] Acct: [id number] Name: ELIZABETH TORO Rep #: [id number] : 1950 65 From: Nando Fuller MD [...] ems, contact your doctor. Call [facility] ([phone]) or report to the closest Emergency Room. Call 911 if necessary. 03/21/16 0049 <Electronically signed by Nando Fuller MD&#6 2; Date Nando Fuller MD Cosigner Signature (If Indicated): Date CC: Edita Cabral MD 20-Mar-2016 Transvaginal Non- Result: Comments: See Note; NOTES: [facility] Imaging Services [address] [place] [address] Verdana 4d Transvaginal Non- MR#: [id number] Acct: [id number] Name: ELIZABETH DIAZ Rep #: [id number] : 1950 F 65 From: Jose Fu PCP: Edita Cabral MD Status: [facility] ER Study: Transvaginal Non- Date of Exam: 03/20/16 Exam# [id number] Ordering Dr: Oz Fuller MD STUDY: ULTRASOUND [...] DO at 0:42 EDT , Service support [phone], Fax CC: Edita Cabral MD; Nando Fuller MD Product Support Sales Representative: Signed 25-Feb-2016 Esophagus Only Result: Comments: See Note; NOTES: [facility] Imaging Services [address] [place] [address] Verdana 4d Esophagus Only MR#: [id number] Acct: [id number] Name: XAVIER TORO Rep #: [id number] : 1950 F 65 From: Anibal Lan MD PCP: Edita Cabral MD Status: REG CLI Study: Esophagus Only Date of Exam: 02/25/16 Exam# [id number] Ordering Dr: Donnie Gonzales STUDY: X-RAY - [...] Anibal Lan MD at 10:35 EDT Tel [phone], Service support [phone], Fax RAD/Esophagus Only IMPRESSION: Normal plain film x-ray examination (barium swallow) of the esophagus. Electronically Signed: Anibal Lan MD at 10: 35 EDT Tel [phone], Service support [phone], CC: Edita Cabral MD; Donnie Gonzales Product Support Sales Representative: Signed 25-Feb-2016 Esophagus Only Result: Comments: See Note; NOTES: [facility] Imaging Services [address] [place] [address] Verdana 4d Esophagus Only MR#: [id number] Acct: [id number] Name: XAVIER TORO Rep #: [id number] : 1950 F 65 From: Anibal Lan MD PCP: Edita Cabral MD Status: REG CLI Study: Esophagus Only Date of Exam: 02/25/16 Exam# [id number] Ordering Dr: Donnie Gonzales ADDENDUM by Anibal Lan MD on 03/31/16 at 0747 ADDENDUM This is an addendum report for PQRS purposes. 19 images were obtained. Electronically Signed: Anibal Lan MD at 7:47 EDT Tel [phone], Service support [phone], 03/31/16 0747 Date cc: Edita Cabral MD; [...] Anibal Lan MD at 10:35 EDT Tel [phone], Service support [phone], RAD/Esophagus Only IMPRESSION: Normal plain film x-ray examination (barium swallow) of the esophagus. Electronically Signed: Anibal Lan MD at 10:35 EDT Tel [phone], Service support [phone], CC: Edita Cabral MD; Donnie Gonzales Product Support Sales Representative: Signed 10-Dec-2015 12 Lead Electrocardiogram Result: Comments: See Note; NOTES: [facility] Cardiovascular Services [address] [place] [address] 12 Lead EKG 12/08/15 1551 MR#: [id number] Acct: [id number] Name: ELIZABETH DASILVA Rep #: [id number] : 1950 65 From: Francisco Muller MD [...] ECG Confirmed by FRANCISCO MULLER MD ([id number]), senior technical editor ZUNILDA KLEIN ([id number]) on 12/10/2015 9:33:10 AM Referred By: ROMEL Confirmed By:FRANCISCO MULLER MD 12/10/15 0933 Date ___ Francisco Muller MD CC: Edita Cabral MD Date Dictated: 12/08/15 155 Date Transcribed: 12/08/151550 Product Support Sales Representative: Signed 10-Dec-2015 Emergency Department Summary Result: Comments: See Note; NOTES: [facility] Medical Records Department [address] [place] [address] Emergency Department Summary MR#: [id number] Acct: [id number] Name: ELIZABETH TORO Rep #: [id number] : 1950 65 From: Sisi Severino MD [...] C: Edita Cabral MD T: NTS JOB: [id number] 12/10/15 0232 <Electronically deepti d by Sisi Severino MD> Date Sisi Severino MD Cosigner Signature (If Indicated): Date C C: Edita Cabral MD Date Dictated: 12/08/151705 Date Transcribed: 12/08/151705 Product Support Sales Representative: Signed 08-Dec-2015 Discharge Instruction Result: Comments: See Note; NOTES: [facility] Medical Records Department [address] [place] [address] Discharge Instruction 12/08/15 1659 MR#: [id number] Acct: [id number] Name: ELIZABETH TORO Rep #: [id number] : 1950 65 From: Sisi Severino MD [...] unexp ected problems, contact your doctor. Call [facility] ([phone]) or report to the closest Emergency Room. Call 911 if necessary. 12/08/15 1701 <Electronically signed by Siis young MD> Date Sisi Severino MD Cosigner Signature (If Indicated): Date CC: Edita Cabral MD 08-Dec-2015 Chest PA and Lateral Result: Comments: See Note; NOTES: [facility] Imaging Services [address] [place] [address] Verdana 4d Chest PA and Lateral MR#: [id number] Acct: [id number] Name: ELIZABETH TORO Rep #: [id number] : 1950 F 65 From: Malaika Diana MD PCP: Edita Cabral MD Status: REG ER Study: Chest PA and Lateral Date of Exam: 12/08/15 Exam# [id number] Ordering Dr: Sisi Severino MD STUDY: X-RAY [...] MD at 16:41 EST , Service support [phone], RAD/Chest PA and Lateral IMPRESSION: No acute disease is demonstrated. Electronic ally Signed: Malaika Diana MD at 16:41 EST , Service support [phone], CC: Edtia Cabral MD; Sisi Severino MD Product Support Sales Representative: Signed 16-Sep-2015 EKG (20242) Result: [MEASUREMENTS ANALYSIS] Date of Test: 09/16/2015 09:46:37; Heart Rate: 74; [place] Interval: 192; QRS: 88; QT Interval: 406; Corrected QT Interval (QTc): 430; P Wave Pomona: 28; QRS Wave [place]: -3; T Wave [place]: -1; Blood Pressure: 104/60 [ECG DIAGNOSTIC STATEMENTS] Date of Test: 09/16/2015 09:46:37; Summary: Sinus Rhythm Low voltage in precordial leads. - Nonspecific T-abnormality. ABNORMAL 11-Feb-2015 Kidney and Bladder Result: Comments: See Note; NOTES: [facility] Imaging Services [address] [place] [address] Ultrasound Report MR#: [id number] Acct: [id number] Name: ELIZABETH TORO Rep #: [id number] : 1950 F 64 From: Mina Cade MD PCP: Edita Cabral MD Status: REG CLI Study: Kidney and Bladder Date of Exam: 02/11/15 Exam# [id number] Ordering Dr: Edita Cabral MD STUDY: RE [...] MD at 23:11 EDT , Service support [phone], CC: Edita Cabral MD Product Support Sales Representative: Signed 24-Jul-2014 PT Discharge Summary Result: Comments: See Note; NOTES: [facility] [address] [place] [address] [address] [place], [place] [address] Fax REHABILITATION SERVICES DISCHARGE SUMMARY MR#: [id number] Acct: [id number] Name: ELIZABETH TORO Rep #: [id number] : 1950 63 From: Naomi Osorio Referring [...] clinic. Naomi Osorio, PT T: NTS JOB: [id number] <Electronically signed by Faraz Osorio > 07/24/14 9090 CC: Signed 15-Jun-2014 PT Discharge Summary Result: Comments: See Note; NOTES: [facility] [address] [place] [address] [address] [place], [place] [address] Fax REHABILITATION SERVICES DISCHARGE SUMMARY MR#: [id number] Acct: [id number] Name: ELIZABETH TORO Rep #: [id number] : 1950 63 From: Naomi Osorio Referring [...] Sincerely, Naomi Osorio, PT T: NTS JOB: [id number] <Electronically signed by Naomi Osorio & amp;#62; 06/15/14 1410 CC: Signed 25-May-2014 Inital Evaluation - PT Result: Comments: See Note; NOTES: [facility] [address] [place] [address]. [address] [place], [place] [address] Fax REHABILITATION SERVICES INITIAL EVALUATION MR#: [id number] Acct: [id number] Name: ELIZABETH TORO Rep #: [id number] : 1950 63 From: Naomi Osorio Referring Dr.: Edita Cabral MD Status: REG RCR Insurance: [facility] PART A B Eval Date: PHYSICIAN [...] anterolateral shoulder. She is right-handed. Right hand foot caster strength is 50 pounds, left is 22 [...] needed. Naomi Osorio, PT T: NTS JOB: [id number] <Electronically signed by Naomi Osorio > 4 1241 CC: Signed For Medicare only, by signing this I certify the plan of care. Physicians Signature Date 23-May-2014 Nuclear Stress Test - Chemical Result: Comments: See Note; NOTES: [facility] Imaging Services [address] [place] [address] Nuclear Medicine Report MR#: [id number] Acct: [id number] Name: ELIZABETH TORO Rep #: [id number] : 1950 F 63 From: Tano Nielsen MD PCP: Edita Cabral MD Status: REG CLI Study: Nuclear Stress Test - Chemical Date of Exam: 05/23/14 Exam# [id number] Ordering Dr: Álvaro Cabral MD EXERCISE TOLERANCE [...] LVEF of 61%. CC: Edita Cabral MD Product Support Sales Representative: SHEKHAR Signed 14-May-2014 Shoulder min 2 Views Result: Comments: See Note; NOTES: [facility] Imaging Services [address] [place] [address] Radiology Report MR#: [id number] Acct: [id number] Name: ELIZABETH TORO Rep #: [id number] : 1950 F 63 From: Hardeep Dumont MD PCP: Erna Kingston DO Status: REG CLI Study: Shoulder min 2 Views Date of Exam: 05/14/14 Exam# [id number] Ordering Dr: Edita Cabral MD STUDY: X-RAY [...] Silvio Dumont MD at 12:18 EDT , [employer] ce support [phone], CC: Edita Cabral MD; Erna Kingston DO Product Support Sales Representative: Signed 30-Apr-2014 CTA Chest W/WO Contrast Result: Comments: See Note; NOTES: [facility] Imaging Services [address] [place] [address] CAT Scan Report MR#: [id number] Acct: [id number] Name: ELIZABETH TORO Rep #: [id number] : 1950 F 63 From: Hardeep Calix MD PCP: Erna Kingston DO Status: REG CLI Study: CTA Chest W/WO Contrast Date of Exam: 04/30/14 Exam# [id number] Ordering Dr: Erna Kingston DO STUDY: CTA [...] at 19 :01 EDT , Service support [phone], CC: Erna Kingston DO Product Support Sales Representative: Signed Family History Unknown Family Member Name [...] kg/m2 Body Surface Area Calculated 1.91 m2 92-Mim-880869:07 Pulse 73 /min Comments: Pattern: Regular Respiration [...] kg/m2 Body Surface Area Calculated 1.96 m2 27-Zkv-182796:01 Temperature 98.1 f Comments: Method: Oral Pulse [...] 0.00 cm Results Date Description Value Details 0-Aoc-166107:57 CREATININE FINGERSTICK Comments: [facility] [address] [address] EGFR WB 55.0000 mL/min (Abnormal) CREATININE WB 1.1 mg/dL (Abnormal) Range: 0.55-1.02 55-Xdo-281431:19 D-Dimer (31068) Comments: PATIENT NOT FASTINGPERFORMED BY: EMIL Toywheelcassidy StoutNovant Health [facility] [id number] D-Dimer 0.57 {mg/L_FEU} (Abnormal) Range: 0.00-0.49 Comments: According to the assay dentistry professor's published package insert, anormal (<0.50 mg/L FEU) D-dimer result in conjunction with a non-highclinical probability assessment, excludes deep vein thrombosis (D VT)and pulmonary embolism (PE) with high sensitivity. .D-dimer values increase with age and this can make VTE exclusion ofan older pop ulation difficult. To address this, the [employer], based on best available evidence [...] and an80 year old 0.80 mg/L FEU. 53-Idu-580609:19 Troponin I (14527) Comments: PATIENT NOT FASTINGPERFORMED BY: [facility]6370 [facility] [id number] Troponin I <0.01 ng/mL (Normal) Range: 0.00-0.04 40-Muy-010706:19 CPK MB FRACTION (88924) Comments: PATIENT NOT FASTINGPERFORMED BY: [facility]6370 [facility] [id number] Creatine Kinase (CK), MB 2.5 ng/mL (Normal) Range: 0.0-5.3 90-Ohk-536112:19 CREATINE KINASE TOTAL (50352) Comments: PATIENT NOT FASTINGPERFORMED BY: [facility]6370 [facility] [id number] Creatine Kinase,Total 103 U/L (Normal) Range: 24-173 :16 CBC-Complete Blood Cnt No Diff Comments: [facility] [address] [facility] [address] [place], [place], [address] MPV 10.5 fL (Normal) Range: 6.2-12.0 PLT [...] Range: 4.4-11.0 :16 Microalb:Creat Ratio,Random UR Comments: [facility] [address] [facility] [address] [place], [place], [address] MALB:CREAT Test not performed {mg/g_CRE} (Normal) MICROALBUMIN,UR < 5.0 mg/L (Normal) UR CREAT < 13.00 mg/dL (Normal) :16 PTHIN 51.5 pg/mL (Normal) Comments: [facility] [address] [place], [id number] Range: 18.4-80.1 :16 Renal Profile Comments: [facility] [address] [place], [address] CO2 28.0 mmol/L (Normal) Range: 21.0-32.0 CL [...] Comments: Please note revised GLUCOSE reference range spduwlhtx89/02/2018. 16-Qok-63675:16 Vitamin D,25 Hydroxy Comments: [facility] [address] [place], [address] Vitamin D 25-OH 69.4 ng/mL (Normal) Range: 29.95-100.01 Comments: Vitamin D 25(OH) Status Range Deficiency <20 ng/mL (50nmol/L) Insuffciency 20 - 30 ng/mL (50 - 75 nmol/L) Sufficiency 30 - 100 ng/mL (75 - 250 nmol/L) Toxicity >100 ng/mL (>250 nmol/L) :04 HgA1C , Office (36297) HgA1C , Office 5.5 % (Normal) Range: 4.6 - 7.1 :23 CALCIFEDIOL (74706) Comments: PATIENT WAS FASTINGPERFORMED BY: [facility]6370 [facility] [id number] Vitamin D, 25-Hydroxy 43.2 ng/mL (Normal) Range: 30.0-100.0 Comments: Vitamin D deficiency has been defined by the [place] of[place] and an Endocrine Society practice guideline as alevel of serum 25-OH vitamin D less than 20 ng/mL (1,2).The Endocrine Society went on to further define vitamin Dinsufficiency as a level between 21 and 29 ng/mL (2).1. IOM ([place] of [employer]). 2010. Dietary reference intakes for calcium and D. [place]: The National Academies Press.2. Azael MF, Leslee NC, Hillary PHILLIPS, et al. Evaluation, treatment, and prevention of vitamin D deficiency: an Endocrine Society clinical practice guideline. JCEM. 2010; 96(7):1911-30. :23 CBC, Platelets & Auto Diff Comments: PATIENT WAS FASTINGPERFORMED BY: LabCoSaint Clare's Hospital at SussexTmvbvt0296 [facility] [id number] (89788) Immature Grans (Abs) 0.0 {x10E3/uL} (Normal) Range: [...] 3.77-5.28 WBC 7.1 {x10E3/uL} (Normal) Range: 3.4-10.8 28-Dyq-85665:23 Metabolic Panel, Comprehensive Comments: PATIENT WAS FASTINGPERFORMED BY: LabCoSaint Clare's Hospital at SussexAmmqbd4253 [facility] [id number] (84884) ALT (SGPT) 15 [iU]/L (Normal) Range: 0-32 [...] Glucose, Serum 82 mg/dL (Normal) Range: 65-99 00-Vad-86760:23 MICROALBUMIN: CREATININE RATIO Comments: PATIENT WAS FASTINGPERFORMED BY: [employer] Game NationAt[facility] [id number] (70423) AND (49446) Alb/Creat Ratio <5.6 {mg/g_creat} (Normal) Range: 0.0-30.0 Albumin, Urine <3.0 ug/mL (Normal) Creatinine, Urine 53.5 mg/dL (Normal) 87-Fig-950613:31 Metabolic Panel, Basic Comments: PATIENT NOT FASTINGPERFORMED BY: TictailAtrium Health [facility] Mountain [id number] (74318) Calcium, Serum 9.9 mg/dL (Normal) Range: 8.7-10.3 [...] (Normal) Range: 65-99 :55 HgA1C , Office (59550) Comments: 5.5 HgA1C , Office 5.5 % (Normal) Range: 4.6 - 7.1 2-Cpu-616838:22 VITAMIN B12 AND FOLATES Comments: today; PATIENT NOT FASTINGPERFORMED BY: [employer] MonkLT TechnologiesAtrium Health Kings Mountain [id number] (51054) Folate (Folic Acid), Serum >20.0 ng/mL (Normal) Comments: A serum folate concentration of less than 3.1 ng/mL isconsidered to represent clinical deficiency. Vitamin B12 655 pg/mL (Normal) Range: 232-1245 Comments: Please note reference interval change :58 CALCIFEDIOL (40847) Comments: PATIENT NOT FASTINGPERFORMED BY: [employer] Tpkref5275 [address] [place] [id number] Vitamin D, 25-Hydroxy 25.2 ng/mL (Abnormal) Range: 30.0-100.0 Comments: Vitamin D deficiency has been defined by the [place] of[place] and an Endocrine Society practice guideline as alevel of serum 25-OH vitamin D less than 20 ng/mL (1,2).The Endocrine Society went on to further define vitamin Dinsufficiency as a level between 21 and 29 ng/mL (2).1. IOM ([place]). 2010. Dietary reference intakes for calcium and D. [place]: The National Academies Press.2. Azael MF, Leslee NC, Hillary PHILLIPS, et al. Evaluation, treatment, and prevention of vitamin D deficiency: an Endocrine Society clinical practice guideline. JCEM. 2010; 96(7):1911-30. 27-Til-272666:58 TSH (THYROID STIMULATING Comments: PATIENT NOT FASTINGPERFORMED BY: [facility] Hcsdxu6643 [address] [facility] HospitalDublin [place] [id number] HORMONE) (80667) TSH 2.410 {uIU/mL} (Normal) Range: 0.450-4.500 :58 CBC WITH MANUAL DIFF (06880) Comments: PATIENT NOT FASTINGPERFORMED BY: CB [facility] Ufxhau9098 [address] [facility] HospitalDublin [place] [id number] Immature Grans (Abs) 0.0 {x10E3/uL} (Normal) Range: [...] 3.77-5.28 WBC 7.7 {x10E3/uL} (Normal) Range: 3.4-10.8 66-Xkb-597049:58 Metabolic Panel, Comprehensive Comments: PATIENT NOT FASTINGPERFORMED BY: LabCoSaint Clare's Hospital at SussexJnfzeg6397 [facility] [id number] (46631) ALT (SGPT) 13 [iU]/L (Normal) Range: 0-32 [...] Glucose, Serum 90 mg/dL (Normal) Range: 65-99 3-Nqc-255175:07 Bedside Glucose Comments: [facility] [address] [place] [address] BEDSIDE GLU 100 mg/dL (Normal) Range: 70-110 Comments: MANAGEMENT OF PATIENT CARE PER NURSING PROTOCOL 98-Lrj-970615:14 D-Dimer Quantitative (DVT/PE) Comments: Order Date: 08/30/17Order Info: [id number] - D-DIMERWMount Carmel [facility] System Toeswjyxip5235 [facility] [place], [place], [address] D-DIMER QUANT 0.35 {FEU/ug/m} (Normal) Range: 0.27-0.49 Comments: NORMAL D-Dimer level (<0.50) indicates no DVT or PE. 05-Uqh-810198:44 Blood Glucose , Office (17533) Blood Glucose , 129 (Normal) Office :2 Request Problem Final report Comments: PATIENT NOT FASTINGPERFORMED BY: [employer] CompanyCorp Zhihqg8377 [facility] ISOTOPENovant Health [facility] [id number] Information: MOUTH SRC:MO 1 (Normal) Comments: Inappropriate source for anaerobic culture. A routine aerobic culturewas initiated. Contact the Microbiology Lab for further information. :2 Test Code Change SPRCS (Normal) Comments: PATIENT NOT FASTINGPERFORMED BY: [facility] InformedDNA [facility] [id number] 1 Comments: Please note that the Microbiology test code was changed to reflectthe specimen source or transport received. :21 Upper Respiratory Culture Comments: PATIENT NOT FASTINGPERFORMED BY: [facility]6370 [facility] [id number] Result 1 RRF (Normal) Comments: Routine respiratory duyen Upper Respiratory Culture Final report (Normal) 19-Guv-261406:59 Metabolic Panel, Comprehensive Comments: Jul 2017; PATIENT NOT FASTINGPERFORMED BY: [facility]6370 [facility] [id number] (10466) ALT (SGPT) 16 [iU]/L (Normal) Range: 0-32 [...] Glucose, Serum 80 mg/dL (Normal) Range: 65-99 26-Teu-305514:59 MAGNESIUM (19282) Comments: today; PATIENT NOT FASTINGPERFORMED BY: [facility] Nwnhpw9273 [facility] [id number] Magnesium, Serum 2.2 mg/dL (Normal) Range: 1.6-2.3 :04 Blood Glucose , Office (47979) Blood Glucose , Office 111 (Normal) :04 HgA1C , Office (28158) HgA1C , Office 5.5 % (Normal) Range: 4.6 - 7.1 :03 CBC W/Diff, Automated Comments: [facility] [address] [place], [place], [address] ; another doc Absolute Lymph 2.35 {X10_3/ul} [...] (Normal) Range: 4.4-11.0 :03 Protein+Creatinine Ratio,Urine Comments: [facility] [address]nggtqupx[address] [place], [address] PROT:CRE RATIO 403 {mg/g_CRE} (Abnormal) Range: 0-200 PROTEIN,UR.RAN. < 6.0 mg/dL (Normal) UR CREAT 13.90 mg/dL (Normal) :03 PTH,INTACT Comments: [facility] [address]aw[address] [facility] [address] [place], [address] PTH,Intact 34 pg/mL (Normal) Range: 14-72 :03 Renal Profile Comments: [facility] [address]agx[address] [place], [address] CO2 26.0 mmol/L (Normal) Range: 21.0-32.0 CL [...] report for address and phone number VITD 20449 48.5 pg/mL (Normal) Range: 19.9-79.3 Comments: Performed at: [address] [id number] Director: Navdeep Medley MD, Phone: [phone] 24-Zpt-313909:06 Metabolic Panel, Comprehensive Comments: PATIENT NOT FASTINGPERFORMED BY: [employer] Pfzahv2355 [facility]At[facility] [id number] (28532) ALT (SGPT) 11 [iU]/L (Normal) Range: 0-32 [...] Glucose, Serum 78 mg/dL (Normal) Range: 65-99 68-Tmo-536283:06 CBC, Platelets & Auto Diff Comments: PATIENT NOT FASTINGPERFORMED BY: [employer] Itmvew9610 [address] [facility] [id number] (13444) Immature Grans (Abs) 0.0 {x10E3/uL} (Normal) Range: [...] 3.77-5.28 WBC 9.3 {x10E3/uL} (Normal) Range: 3.4-10.8 64-Ips-405420:06 TSH (98580) Comments: PATIENT NOT FASTINGPERFORMED BY: [facility] Jukxaq3214 L[facility] [id number] TSH 3.080 {uIU/mL} (Normal) Range: 0.450-4.500 57-Jqd-320617:56 HgA1C , Office (97217) HgA1C , Office 5.5 % (Normal) Range: 4.6 - 7.1 32-Cfp-570045:56 Blood Glucose , Office (88900) Blood Glucose , Office 81 (Normal) 31-Dec-20168:09 LIPID PANEL (54908) Comments: PATIENT WAS FASTINGPERFORMED BY: mytrax6370 [facility] [id number] LDL/HDL Ratio 2.0 {ratio_units} (Normal) Range: 0.0-3.2 [...] PANEL, COMPREHENSIVE Comments: PATIENT WAS FASTINGPERFORMED BY: mytrax6370 [facility] [id number] (97530) ALT (SGPT) 15 [iU]/L (Normal) Range: 0-32 [...] Glucose, Serum 104 mg/dL (Abnormal) Range: 65-99 36-Icj-43073:04 METABOLIC PANEL, COMPREHENSIVE Comments: fax to Dr Henry; PATIENT WAS FASTINGPERFORMED BY: [facility] Hbvjfd2414 [facility] [id number] (89352) ALT (SGPT) 16 [iU]/L (Normal) Range: 0-32 [...] CREATININE RATIO Comments: PATIENT WAS FASTINGPERFORMED BY: TictailAtrium Health [facility] Mountain [id number] (86169) AND (27773) Microalb/Creat Ratio <6.3 {mg/g_creat} (Normal) Range: 0.0-30.0 Microalbumin, Urine <3.0 ug/mL (Normal) Creatinine, Urine 48.0 mg/dL (Normal) :04 HGB A1C (30413) Comments: PATIENT WAS FASTINGPERFORMED BY: [employer]70 [facility] [id number] Hemoglobin A1c 5.7 % (Abnormal) Range: 4.8-5.6 Comments: . Pre-diabetes: 5.7 - 6.4 Diabetes: >6.4 Glycemic control for adults with diabetes: <7.0 :04 CALCIFEDIOL (27449) Comments: PATIENT WAS FASTINGPERFORMED BY: [employer]70 [facility]OPENov[facility] [id number] Vitamin D, 25-Hydroxy 24.2 ng/mL (Abnormal) Range: 30.0-100.0 Comments: Vitamin D deficiency has been defined by the [place] of[place]icine and an Endocrine Society practice guideline as alevel of serum 25-OH vitamin D less than 20 ng/mL (1,2).The Endocrine Society went on to further define vitamin Dinsufficiency as a level between 21 and 29 ng/mL (2).1. IOM ([place]). 2010. Dietary reference intakes for calcium and D. [place]: The National Academies Press.2. Azael MF, Leslee NC, Hillary PHILLIPS, et al. Evaluation, treatment, and prevention of vitamin D deficiency: an Endocrine Society clinical practice guideline. JCEM. 2010; 96(1):3091-30. :04 TSH (THYROID STIMULATING Comments: PATIENT WAS FASTINGPERFORMED BY: [employer] Game NationAtrium Health [facility] [id number] HORMONE) (37427) TSH 2.710 {uIU/mL} (Normal) Range: 0.450-4.500 :04 LIPID PANEL (39647) Comments: PATIENT WAS FASTINGPERFORMED BY: [employer] InformedDNA [facility] [id number] LDL/HDL Ratio 1.7 {ratio_units} (Normal) Range: 0.0-3.2 [...] AUT DIFF Comments: PATIENT WAS FASTINGPERFORMED BY: [employer] Vyrvdr7960 [facility] [id number] (31793) Immature Grans (Abs) 0.0 {x10E3/uL} (Normal) Range: [...] up testing of positive sera with both KY-3 and MPO- ANCA enzyme immunoassays. As many as 5% serumsamp les are positive only by EIA. Ref. AM J Clin Hkhiva4986;111:507-513. CYTOPLASMIC Ab <1:20 {titer} (Normal) :28 Anti-dsDNA Ab Comments: [facility] (refer to report for specific site)refer to report for address and phone number dsDNA AB <1 {IU/mL} (Normal) Range: 0-9 Comments: Negative <5 Equivocal 5 - 9 Positive >9Performed at: [facility] [employer] [id number] D irector: Junior Valera PhD, Phone: [phone] :28 Complement C3 Comments: Is Patient Fasting? [facility] (refer to report for specific site)refer to report for address and phone number COMP C3 127 mg/dL (Normal) Range: 82-167 Comments: Performed at: [employer] [id number] Director: Junior Valera PhD, Phone: [phone] :28 Complement C4 Comments: Is Patient Fasting? [...] electrophoresis scan will follow via computer,mail, or global lead delivery. LEOOPLDO RESULT,S Comment: (Normal) Comments: Presence of monoclonal protein is unclear at this time. Suggest repeat in 3 to 6 months if clinically indicated. A/G RATIO 0.9 (Normal) Range: 0.7-1.7 GLOBULIN, TOTAL 3.8 g/dL (Normal) Range: 2.2-3.9 M-SPIKE (Normal) Comments: Not Observed GAMMA GLOBULIN 1.4 g/dL (Normal) Range: 0.4-1.8 BETA GLOBULIN 1.3 g/dL (Normal) Range: 0.7-1.3 GDDLO-5-TQCI 0.9 g/dL (Normal) Range: 0.4-1.0 RRJCQ-2-ZZGW 0.2 g/dL (Normal) Range: 0.0-0.4 ALBUMIN 3.4 g/dL (Normal) Range: 2.9-4.4 IMMUNOGL M 44 mg/dL (Normal) Range: 26-217 IMMUNO A 614 mg/dL (Abnormal) Range: 87-352 IMMUNO G 1353 mg/dL (Normal) Range: 700-1600 PROTEIN,TOTAL 7.2 g/dL (Normal) Range: 6.0-8.5 :28 Protein+Creatinine Ratio,Urine Comments: [facility] [address] [place], [address] PROT:CRE RATIO 128 {mg/g_CRE} (Normal) Range: 0-200 PROTEIN,UR.RAN. 6.5 mg/dL (Normal) UR CREAT 50.60 mg/dL (Normal) :46 RENAL FUNCTION PANEL (61515) Comments: PATIENT NOT FASTINGPERFORMED BY: [employer]6370 [facility] [id number] Phosphorus, Serum 4.2 mg/dL (Normal) Range: 2.5-4.5 :46 PT (PROTHROMBIN TIME) (84757) Comments: PATIENT NOT FASTINGPERFORMED BY: [employer] LabCoFiesta FrogGlbauv3274 [facility] [id number] Prothrombin Time 10.9 {sec} (Normal) Range: 9.1-12.0 INR 1.1 (Normal) Range: 0.8-1.2 Comments: Reference interval is for non-anticoagulated patients. . Suggested INR therapeutic range for Vitamin K anta gonist therapy: Standard Dose (moderate intensity therapeutic range): 2.0 - 3.0 Higher intensity therapeutic range 2.5 - 3.5 :46 METABOLIC PANEL, COMPREHENSIVE Comments: PATIENT NOT FASTINGPERFORMED BY: [employer] Cgqkpe6255 [facility] [id number] (35833) ALT (SGPT) 24 [iU]/L (Normal) Range: 0-32 [...] Glucose, Serum 109 mg/dL (Abnormal) Range: 65-99 40-Rfc-393591:46 CBC, PLATELETS & AUT DIFF Comments: PATIENT NOT FASTINGPERFORMED BY: [facility] Fizbhi2809 [facility] [id number] Information: [id number] (66685) Immature Grans (Abs) 0.0 {x10E3/uL} (Normal) Range: [...] (Normal) Range: 3.4-10.8 :23 HgA1C , Office (91175) HgA1C , Office 5.4 % (Normal) Range: 4.6 - 7.1 :16 CBC-Complete Blood Cnt No Diff Comments: [facility] [address] [place], [address] MPV 8.8 fL (Normal) Range: [...] 4.4-11.0 :16 Serum Creatinine AND GFR Comments: [facility] [address] [place], [place], [address] Estimated CRCL 27.75 ml/min (Normal) EST GFR - AA 37 mL/min (Abnormal) Comments: GFR Calc EST GFR 30 mL/min (Abnormal) Comments: Non- GFR Calc CREAT,SERUM 1.77 mg/dL (Abnormal) Range: 0.55-1.20 Comments: The validity of the calculated GFR AND GFRAA in patients over70 years has not been determined. Clinical correlation isessential. 03-Egs-647393:15 Bedside Glucose Comments: [facility] LaboratoryPoint of [address] [place], [place] [address] BEDSIDE GLU 128 mg/dL (Abnormal) Range: 70-110 Comments: Policy and Physicians Orders followedMANAGEMENT OF PATIENT CARE PER NURSING PROTOCOL HYSTERECTOMY SPECIMEN See Note (Normal) Comments: [facility] [address] [place], [place], [address] :39 Comments: Patient: ELIZABETH TORO : 1950 (65/F) Acct Num: [id number] Phys: Gonsalo PROCTOR,Gm Unit Num: [id number] Loc: MS1 ZQ946-6 Specimen: [id number] Received: 06/22/161336 Spec Ty pe: HYSTERECT TISSUES TISSUES: COMMENT Please make reference to previous specimen ([id number]) endometrial biopsy with diagnosis of consistent with atrophic endometrium and ([id number]) e ndometrium andpolyp, excision with diagnosis of [...] measures 1.2 x 0.7 x 0.6 cm. [place]unk[place] Nurse sections are submitted inten cassettes as follows: [...] tube and ovary. / Sridevi 06/22/16 TC:1 CPT:05217 HEADER OPERATION: Lap robotic hysterectomy, BSO PRE-OP [...] Signed Sivakumar Mallory 06/23/16 <signature on file> 14-Czs-83319:31 Bedside Glucose Comments: [facility] LaboratoryPoint of [address] [place] [address] BEDSIDE GLU 89 mg/dL (Normal) Range: 70-110 Comments: Physician Notified VBRBMANAGEMENT OF PATIENT CARE PER NURSING PROTOCOL 83-Jpg-232759:31 CBC-Complete Blood Cnt No Diff Comments: [facility] [address] [place], [address] MPV 10.1 fL (Normal) Range: [...] Range: 4.4-11.0 :31 Comprehensive Metabolic Profil Comments: [facility] [address] [place], [address] GAP 8 (Normal) Range: 5-15 [...] (Normal) Range: 70-110 :31 Hemoglobin A1c Comments: [facility] [address] [place], [place], [address] HGB A1C 5.6 % (Normal) Range: 4.2-6.3 :31 Partial Thromboplast Time Comments: [facility] [address] [place], [place], [address] PTT 27.7 s (Normal) Range: 24.1-36.2 13-Unp-293256:31 Prothrombin Time w/INR Comments: [facility] [address] [place], [place], [address] INR 1.1 (Normal) PROTIME 13.4 s (Normal) Range: 11.7-14.9 99-Bng-372474:31 Thyroid Stim Hormone (TSH) Comments: [facility] [address] [place], [place], [address] TSH 2.46 {uIU/mL} (Normal) Range: 0.358-3.74 :31 Type AND Screen Comments: Surgery Date: 06/22/16Date of Last Transfusion (if within last 3 months) NHx of Preganancy in last 3 Months NoEver experience any problems with transfusion(s)? NHx of Transfusion in last 3 Months N Reason for Type AND Screen/Red Cells: SURGERYTime: 0600SURGICAL PROCEDURE: [facility]STER[facility] [address] [place], [place], [address] Antibody Screen NEGATIVE (Normal) BLOOD TYPE GEL A NEGATIVE (Normal) 06-Whr-088793:28 Comprehensive Metabolic Profil Comments: Order Date: 06/10/16Order Date: 06/10/16[facility] [address] [place], [address] GAP 5 (Normal) Range: 5-15 CO2 28.0 [...] 7-18 GLU 79 mg/dL (Normal) Range: 70-110 33-Ciu-174223:58 CBC W/Diff, Automated Comments: [facility] [address] [place], [address] Absolute Lymph 2.98 {X10_3/ul} (Normal) [...] 4.2-5.4 WBC 8.7 K/mm3 (Normal) Range: 4.4-11.0 25-Gfc-553095:58 Comprehensive Metabolic Profil Comments: Is Patient Taking Vitamins or Folic Acid Supplements? [facility] [address] [place], [address] GAP 8 (Normal) Range: 5-15 CO2 [...] 7-18 GLU 95 mg/dL (Normal) Range: 70-110 26-Dql-727679:58 Erythrocyte Sed Rate Comments: [facility] [address] [place], [place], [address] SED RATE 25 mm/h (Normal) Range: 0-30 07-Lip-307179:58 Folates, (Folic Acid) Comments: Is Patient Taking Vitamins or Folic Acid Supplements? [facility] [address] [place], [place], [address] FOLATES 9.60 ng/mL (Normal) Range: 3.1-17.5 60-Hhm-711929:58 Thyroid Stim Hormone (TSH) Comments: Is Patient Taking Vitamins or Folic Acid Supplements? [facility] [address] [place], [place], [address] TSH 2.58 {uIU/mL} (Normal) Range: 0.358-3.74 77-Uco-513558:58 Vitamin B12 543 pg/mL (Normal) Comments: [facility] [address] [place], [place], [address] Range: 211-911 58-Fig-230624:07 Urinalysis, Office ([address]) UA - LEUKOCYTE ESTERASE Trace (Normal) UA - NITRITE Negative (Normal) URINE UROBILINGN SHARIFA TIMED Normal mg/dL (Normal) UA - PROTEIN Negative mg/dL (Normal) UA - PH 6.5 (Normal) UA - BLOOD Hemolyzed Trace (Normal) UA - SPECIFIC GRAVITY 1.005 (Normal) UA - KETONES Negative mg/dL (Normal) UA - BILIRUBIN Negative (Normal) UA - GLUCOSE Negative (Normal) 68-Bjt-078412:04 URINE VERÓNICA CULTURE-SHARIFA COL Comments: PATIENT NOT FASTINGPERFORMED BY: [facility] Mnfyhx0207 [facility] [id number] Information: SRC:URC [id number] COUNT (07720) Antimicrobial MIHEAD (Normal) Comments: S = Susceptible; [...] (Abnormal) Urine Final report Culture,Comprehensive (Abnormal) EGD ([facility] SITE) See Note (Normal) Comments: [facility] [address] [place], [place], [address]:04 Comments: Patient: ELIZABETH TORO : 1950 (65/F) Acct Num: [id number] Phys: JonnysaraJunior Unit Num: [id number] Loc: LABSPEC Specimen: [id number] Received: 04/21/161637 Spec Type: EGD BIOPSY TISSUES [...] in one cassette. / SJ:stormy 04/22/16 TC:3 CPT:83756 HEADER OPERATION: EGD with biopsy PRE-OP DIAGNOSIS: Dysphagia TISSUE SUBMITTED: Esophageal biopsy, R/O EE MICROSCOPIC DESCRIP TION Slides are reviewed. MICROSCOPIC DIAGNOSIS Esophageal biopsy: Fragments of squamous epithelium with mild chronic inflammation. See comment. SJ:stormy 04/23/16 Signed Sivakumartrey Mallory 04/23/16 <signature on file> CERVICAL See Note (Normal) Comments: [facility] [address] [place], [address]:15 Comments: Patient: ELIZABETH TORO : 1950 (65/F) Acct Num: [id number] Phys: Gonsalo PROCTOR,[facility] Unit Num: [id number] Loc: [facility] Specimen: [id number] Received: 04/13/16 1336 Spec Type: CER V [...] one cassette. / AM: 04/13/16 TC:5 CPT: 83323 x 2 HEADER OPERATION: Hysteroscopy, diagnostic, D [...] <signature on file> :04 Bedside Glucose Comments: [facility] LaboratoryPoint of [address] [place] [address] BEDSIDE GLU 98 mg/dL (Normal) Range: 70-110 Comments: No Action RequiredMANAGEMENT OF PATIENT CARE PER NURSING PROTOCOL :08 CBC-Complete Blood Cnt No Diff Comments: [facility] [address] [place], [address] MPV 9.4 fL (Normal) Range: [...] Range: 4.4-11.0 :08 Comprehensive Metabolic Profil Comments: [facility] [address] [place], [place], [address] GAP 8 (Normal) Range: 5-15 CO2 24.0 [...] Range: 70-110 :08 Partial Thromboplast Time Comments: [facility] [address] [place], [address] PTT 29.8 s (Normal) Range: 24.1-36.2 :08 Prothrombin Time w/INR Comments: [facility] [address] [place], [place], [address] INR 1.1 (Normal) PROTIME 13.6 s (Normal) Range: 11.7-14.9 :08 Type AND Screen Comments: Surgery Date: 04/13/16Date of Last Transfusion (if within last 3 months) NHx of Preganancy in last 3 Months NoEver experience any problems with transfusion(s)? NHx of Transfusion in last 3 Months N Reason for Type AND Screen/Red Cells: SURGERYTime: 1015SURGICAL PROCEDURE: [facility]WM[facility] [address] [place], [place], [address] Antibody Screen NEGATIVE (Normal) BLOOD TYPE GEL A NEGATIVE (Normal) ENDOMETRIAL See Note (Normal) Comments: [facility] [address] [place], [address] 6:00 BX/CURETTINGS Comments: Patient: ELIZABETH TORO : 1950 (65/F) Acct Num: [id number] Phys: Gonsalo PROCTOR,[facility] Unit Num: [id number] Loc: LABSPEC Specimen: [id number] Received: 03/26/16 - 1600 Spec Type: ENDOM [...] in one cassette. / AM:stormy 03/27/16 TC:4 CPT:68727 HEADER OPERATION: Endometrial biopsy PRE-OP DIAGNOSIS: N95.0 TISSUE SUBMITTED: EMB MICROSCOPIC DESCRIPTION Slides are r eviewed. MICROSCOPIC DIAGNOSIS Endometrial biopsy: Scant strips of benign endometrial epithelium, consistent with atrophic endometrium. Fragments of benign endocervical epithelium and mucous. 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 of containers..01 CYTYC Thin Prep VialLabCorp (refer to report for specific site)refer to report for address and phone number HPV RFLX Comment (Normal) Comments: The HPV DNA reflex criteria were not met with this specimenresult therefore, no HPV testing was performed.Performed at: [address]Zenon [address] [id number] Director: Annamaria Menezes MD, Phone: [phone] PAPSMR Comment (Normal) Comments: The Pap smear [...] system. PERFORM Comment (Normal) Comments: Adeline Singleton, Senior Network Architect (ASCP) ADEQ Comment (Normal) Comments: Satisfactory for evaluation. DIAGN Comment (Normal) Comments: NEGATIVE FOR INTRAEPITHELIAL LESION AND MALIGNANCY. 71-Iaq-58749:20 Urinalysis, Complete Comments: How was Urine Obtained? HABITAT BIOLOGIST TO SPECIFYAccess [facility] [address] [facility]. [place], [place], [address] MUCUS, URINE 0 SEEN {/hpf} (Normal) BACTERIA [...] (Normal) CLARITY Clear (Normal) COLOR Straw (Normal) 17-Rom-853562:50 Basic Metabolic Profile (BMP) Comments: [facility] [address] [place], [place], [address] GAP 7 (Normal) Range: 5-15 CO2 26.0 [...] <126 mg/dLsuggests IMPAIRED HOMEOSTASIS per A.D.A. criteria. 59-Xum-160771:50 CBC W/Diff, Automated Comments: [facility] [address] [place], [place], [address] Absolute Lymph 3.53 {X10_3/ul} (Normal) Range: 0.83-4.51 [...] K/mm3 (Normal) Range: 4.4-11.0 :02 Rapid Flu (69674 x 2) Influenza A Ag negative (Normal) 3-Zdr-522315:31 SJOGREN ANTIBOIDIES Comments: PATIENT NOT FASTINGPERFORMED BY: LabCoSaint [facility] Hospital at SussexLozqeb3547 [facility] [id number] Information: [id number] (ANTI-SS-A/ANTI-SS-B) (19720) Sjogren's Anti-SS-B <0.2 {AI} (Normal) Range: 0.0-0.9 Sjogren's Anti-SS-A <0.2 {AI} (Normal) Range: 0.0-0.9 :28 Rapid Strep Test, Office (56960) Rapid Strep Test, Office Negative (Normal) 4-Jbl-709605:37 Throat Culture (95910) Comments: PATIENT NOT FASTINGPERFORMED BY: [facility]6370 [facility] [id number] Information: SRC:THRT [id number] Result 1 BETAGB (Abnormal) Comments: Beta hemolytic [...] 2011) Upper Respiratory Culture Final report (Abnormal) 1-Nus-090516:45 Basic Metabolic Profile (BMP) Comments: 'TROP' Serial specimen #1, #2, #3, or #4: 1WMount [facility] [address]mm[address] [place], [place], [address] GAP 9 (Normal) Range: 5-15 CO2 23.0 [...] Range: 70-110 :45 CBC W/Diff, Automated Comments: [facility] [address] [place], [place], [address] Absolute Lymph 2.03 {X10_3/ul} (Normal) Range: 0.83-4.51 [...] 4.2-5.4 WBC 6.0 K/mm3 (Normal) Range: 4.4-11.0 9-Thj-200599:45 Thyroid Stim Hormone (TSH) Comments: 'TROP' Serial specimen #1, #2, #3, or #4: [address] [place] [address] [address] [place], [address] TSH 1.50 {uIU/mL} (Normal) Range: 0.358-3.74 :45 Troponin-I Comments: 'TROP' Serial specimen #1, #2, #3, or #4: [address] [place] [address] [address]66 [place], [address] TROPONIN-I < 0.02 ng/mL (Normal) Comments: TROPONIN-I EXPECTED VALUES <0.05 NEGATIVE 0.06 - 0.59 AT RISK OF NV > OR = 0.60 SUGGEST NV :53 Pap IG (Image Comments: Source.............Cervical;EndocervicalNo. of containers..01 CYTYC Thin Prep VialPATIENT NOT FASTINGPERFORMED BY: =G [place] [address] [facility] HospitalvickyFulton [facility] Center [id number] BY: WB L Guided) Jennifer Jordanton120 [facility] [id number] Note: PAPSMR (Normal) Comments: The Pap smear [...] of partially obscuring exudate are present.Z00.00Adeline Singleton Senior Network Architect (ASCP) :01 HgA1C , Office (50471) HgA1C , Office 5.9 % (Normal) Range: 4.6 - 7.1 :00 Blood Glucose , Office (27990) Blood Glucose , Office 126 (Normal) 33-Ddu-67115:53 Thin Prep Pap Comments: Source.............Cervical;EndocervicalNo. of containers..01 CYTYC Thin Prep VialPATIENT NOT FASTINGPERFORMED BY: =G [employer] Enuizylocy384 [facility] [id number] BY: WB L (79260) [facility] [address]ettwalter [address] [id number] Information: [id number] Age Gdln ACOG Testing AGE4 (Normal) Comments: <21 or >65 or no age provided :34 METABOLIC PANEL, Comments: PATIENT WAS FASTINGPERFORMED BY: LabCo Ozclor8061 [facility] [id number] Information: [id number] COMPREHENSIVE (94926) ALT (SGPT) 18 [iU]/L (Normal) Range: 0-32 [...] Glucose, Serum 83 mg/dL (Normal) Range: 65-99 01-Rve-06202:34 CALCIFIDIOL (61760) VIT D 25 Comments: PATIENT WAS FASTINGPERFORMED BY: LabVibra [facility]6370 [facility] [id number] Vitamin D, 25-Hydroxy 59.6 ng/mL (Normal) Range: 30.0-100.0 Comments: Vitamin D deficiency has been defined by the [place] of[place] and an Endocrine Society practice guideline as alevel of serum 25-OH vitamin D less than 20 ng/mL (1,2).The Endocrine Society went on to further define vitamin Dinsufficiency as a level between 21 and 29 ng/mL (2).1. IOM ([place] of [employer]). 2010. Dietary reference intakes for calcium and D. [place]: The National AcademBestcake Press.2. Leslee Chapin, Hillary PHILLIPS, et al. Evaluation, treatment, and prevention of vitamin D deficiency: an Endocrine Society clinical practice guideline. JCEM. 2010; 96(7):1911-30. :37 HgA1C , Office (98090) HgA1C , Office 6.1 % (Normal) Range: 4.6 - 7.1 :37 Blood Glucose , Office (10878) Blood Glucose , Office 107 (Normal) :27 TSH (THYROID STIMULATING Comments: PATIENT WAS FASTINGPERFORMED BY: [facility] Bmiztf5[address] RoadDublin [place] [id number] HORMONE) (00033) TSH 2.480 {uIU/mL} (Normal) Range: 0.450-4.500 : CALCIFEDIOL (61561) Comments: PATIENT WAS FASTINGPERFORMED BY: CB [facility] Vbxebg5[address] RoadDublin [place] [id number] Vitamin D, 25-Hydroxy 16.7 ng/mL (Abnormal) Range: 30.0-100.0 Comments: Vitamin D deficiency has been defined by the [place] of[place] and an Endocrine Society practice guideline as alevel of serum 25-OH vitamin D less than 20 ng/mL (1,2).The Endocrine Society went on to further define vitamin Dinsufficiency as a level between 21 and 29 ng/mL (2).1. IOM ([place]). 2010. Dietary reference intakes for calcium and D. [place]: The National Academies Press.2. Leslee Chapin, Hillary PHILLIPS, et al. Evaluation, treatment, and prevention of vitamin D deficiency: an Endocrine Society clinical practice guideline. JCEM. 2010; 96(7):1911-30. :27 LIPID PANEL (35541) Comments: PATIENT WAS FASTINGPERFORMED BY: CB [facility] Bblyoi2499 [address]k RoadDublin [place] [id number] LDL/HDL Ratio 1.2 {ratio_units} (Normal) Range: 0.0-3.2 [...] Cholesterol, Total 138 mg/dL (Normal) Range: 100-199 73-Rvk-19137:27 METABOLIC PANEL, COMPREHENSIVE Comments: PATIENT WAS FASTINGPERFORMED BY: LabCoSaint Clare's Hospital at SussexSzvfzp6935 [facility] [id number] (40472) ALT (SGPT) 19 [iU]/L (Normal) Range: 0-32 [...] & MANUAL Comments: PATIENT WAS FASTINGPERFORMED BY: Soluble SystemsSaint Clare's Hospital at SussexEmfdkx6980 [facility] [id number] Information: [id number], [id number] DIFF (68070) Immature Grans (Abs) 0.0 {x10E3/uL} (Normal) Range: [...] 3.77-5.28 WBC 7.0 {x10E3/uL} (Normal) Range: 3.4-10.8 07-Oaw-592930:31 CREATININE CLEARANCE Comments: PATIENT NOT FASTINGPERFORMED BY: Soluble SystemsSaint Clare's Hospital at SussexUixthc7004 [facility] [id number] Information: [id number] START @9AM FINISH 01/28/15@9 AM (92271) Creatinine Clearance 53 mL/min (Abnormal) Range: 88-128 [...] Hour Urine Comments: PATIENT NOT FASTINGPERFORMED BY: DreamCloset.comPerry County Memorial HospitalVxglpg3011 [facility] [id number] (79745) Prot,24hr calculated 357.5 {mg/24_hr} (Abnormal) Range: 30.0-150.0 Protein,Total,Urine 13.0 mg/dL (Normal) Range: 0.0-15.0 :28 HgA1C , Office (47805) HgA1C , Office 5.9 % (Normal) Range: 4.6 - 7.1 :28 Blood Glucose , Office (34171) Blood Glucose , Office 136 (Normal) :53 TSH (15135) Comments: PATIENT WAS FASTINGPERFORMED BY: [facility]6370 [facility] [id number] TSH 4.370 {uIU/mL} (Normal) Range: 0.450-4.500 :53 MICROALBUMIN: CREATININE RATIO Comments: PATIENT WAS FASTINGPERFORMED BY: [facility]6370 [facility] [id number] (84520) AND (00786) Microalb/Creat Ratio 5.0 {mg/g_creat} (Normal) Range: 0.0-30.0 Microalbumin, Urine 4.5 ug/mL (Normal) Range: 0.0-17.0 Creatinine, Urine 90.5 mg/dL (Normal) Range: 15.0-278.0 :53 METABOLIC PANEL, COMPREHENSIVE Comments: PATIENT WAS FASTINGPERFORMED BY: [employer] Poqxio6054 [facility] [id number] (25973) ALT (SGPT) 20 [iU]/L (Normal) Range: 0-32 [...] mg/dL (Abnormal) Range: 65-99 :53 LIPID PANEL (50179) Comments: PATIENT WAS FASTINGPERFORMED BY: mytrax6370 [facility] [id number] LDL/HDL Ratio 1.4 {ratio_units} (Normal) Range: 0.0-3.2 [...] WBC Comments: PATIENT WAS FASTINGPERFORMED BY: LabCoSaint Clare's Hospital at SussexBnmghx0874 [facility] [id number] Information: [id number] (27580) Immature Grans (Abs) 0.0 {x10E3/uL} (Normal) Range: [...] 7.8 {x10E3/uL} (Normal) Range: 3.4-10.8 :53 CALCIFIDIOL (62244) VIT D 25 Comments: PATIENT WAS FASTINGPERFORMED BY: [employer] Vmtlbx8663 [facility] [id number] Vitamin D, 25-Hydroxy 22.5 ng/mL (Abnormal) Range: 30.0-100.0 Comments: Vitamin D deficiency has been defined by the [place] of[facility] Medical Centercine and an Endocrine Society practice guideline as alevel of serum 25-OH vitamin D less than 20 ng/mL (1,2).The Endocrine Society went on to further define vitamin Dinsufficiency as a level between 21 and 29 ng/mL (2).1. IOM ([place]). 2010. Dietary reference intakes for calcium and D. [place]: The National Academies Press.2. Azael MF, Leslee LEMON, Hillary PHILLIPS, et al. Evaluation, treatment, and prevention of vitamin D deficiency: an Endocrine Society clinical practice guideline. JCEM. 2010; 96(7):1911-30. :22 HgA1C , Office (84345) HgA1C , Office 6.0 % (Normal) Range: 4.6 - 7.1 :22 Blood Glucose , Office (68846) Blood Glucose , Office 132 (Normal) :27 Blood Glucose , Office (73490) Blood Glucose , Office 114 (Normal) :27 HgA1C , Office (30926) HgA1C , Office 5.9 % (Normal) Range: 4.6 - 7.1 :00 Basic Metabolic Panel (8) Comments: PATIENT NOT FASTINGPERFORMED BY: LabCoSaint Clare's Hospital at SussexPvvmsq8753 [facility] [id number] BY: [address] [id number] Calcium, Serum 9.8 mg/dL (Normal) Range: 8.6-10.2 [...] 287 {mOsmol/kg} Comments: PATIENT NOT FASTINGPERFORMED BY: [employer]70 [facility] [id number] BY: [employer] [id number] 00 (Normal) Range: 280-301 : Osmolality, Urine 259 {mOsmol/kg} Comments: PATIENT NOT FASTINGPERFORMED BY: [employer]70 [facility] [id number] BY: [employer] [id number] 00 (Normal) Comments: 24 hr : 300 - 900 Random: 50 - 1400 After 12hr fluid restriction: >850 : Sodium, Urine 11 mmol/L (Normal) Comments: PATIENT NOT FASTINGPERFORMED BY: [employer]70 [facility] [id number] BY: [employer] [id number] 00 2-Ybf-504479:06 Metabolic Panel, Basic Comments: PATIENT NOT FASTINGPERFORMED BY: [employer]70 [facility] [id number] Information: [id number] (89867) Calcium, Serum 9.9 mg/dL (Normal) Range: 8.6-10.2 [...] Glucose, Serum 108 mg/dL (Abnormal) Range: 65-99 41-Jhe-555415:34 CBCD Comments: pt has apt with db [...] <0.05 NEGATIVE0.06 - 0.59 AT RISK OF NV> OR = 0.60 SUGGEST NV 20-Lxz-219893:34 TSH 2.32 {uIU/mL} (Normal) Comments: 'TROP' Serial specimen #1, #2, #3, or #4: 1 Range: 0.358-3.74 01-May-20140:00 Microscopic Examination Comments: PATIENT WAS FASTINGPERFORMED BY: [facility] Txkxos5563 [address] [place] [id number] Bacteria Few (Normal) Mucus Threads Present (Normal) Epithelial Cells (non renal) 0-10 {/hpf} (Normal) Range: 0 - 10 RBC 0-2 {/hpf} (Normal) Range: 0 - 2 WBC 11-30 {/hpf} (Abnormal) Range: 0 - 5 47-Yhk-452982:15 TSH (02446) Comments: PATIENT WAS FASTINGPERFORMED BY: [facility] Qtvozw2838 [address] RoadDublin [place] [id number] TSH 3.310 {uIU/mL} (Normal) Range: 0.450-4.500 20-Nlk-910060:15 CALCIFIDIOL (61752) VIT D 25 Comments: PATIENT WAS FASTINGPERFORMED BY: CB [facility] Z[address]lop[address] [facility] Hospitalbl[facility] [place] [id number] Vitamin D, 25-Hydroxy 35.7 ng/mL (Normal) Range: 30.0-100.0 Comments: Vitamin D deficiency has been defined by the [place] [facility] Centercine and an Endocrine Society practice guideline as alevel of serum 25-OH vitamin D less than 20 ng/mL (1,2).The Endocrine Society went on to further define vitamin Dinsufficiency as a level between 21 and 29 ng/mL (2).1. IOM ([place]). 2010. Dietary reference intakes for calcium and D. [place]: The National Academies Press.2. Azael MF, Leslee [place], Hillary PHILLIPS, et al. Evaluation, treatment, and prevention of vitamin D deficiency: an Endocrine Society clinical practice guideline. JCEM. 2010; 96(7):1911-30. 74-Wws-326699:15 URINALYSIS, W/ MICRO (69312) Comments: PATIENT WAS FASTINGPERFORMED BY: LabCoSaint Clare's Hospital at SussexSpqbmx7998 [facility] [id number] Microscopic Examination See below: (Normal) Nitrite, Urine Positive (Abnormal) Bilirubin Negative (Normal) Urobilinogen,Semi-Qn 0.2 mg/dL (Normal) Range: 0.0-1.9 Ketones Negative (Normal) Occult Blood Negative (Normal) Glucose Negative (Normal) Protein Negative (Normal) Appearance Clear (Normal) WBC Esterase 2+ (Abnormal) pH 6.5 (Normal) Range: 5.0-7.5 Urine-Color Yellow (Normal) Specific [place] 1.015 (Normal) Range: 1.005-1.030 98-Cot-355485:15 METABOLIC PANEL, COMPREHENSIVE Comments: PATIENT WAS FASTINGPERFORMED BY: LabCoSaint Clare's Hospital at SussexOebssy9098 [facility] [id number] (85908) ALT (SGPT) 19 [iU]/L (Normal) Range: 0-32 [...] Glucose, Serum 118 mg/dL (Abnormal) Range: 65-99 13-Pex-353501:15 LIPID PANEL (20688) Comments: PATIENT WAS FASTINGPERFORMED BY: Soluble SystemsSaint Clare's Hospital at SussexFyblkn0895 [facility] [id number] LDL/HDL Ratio 1.7 {ratio_units} (Normal) Range: 0.0-3.2 LDL Cholesterol Calc 90 mg/dL (Normal) Range: 0-99 VLDL Cholesterol Hillary 33 mg/dL (Normal) Range: 5-40 HDL Cholesterol 53 mg/dL (Normal) Comments: According to ATP-III Guidelines, HDL-C >59 mg/dL is considered anegative risk factor for CHD. Triglycerides 166 mg/dL (Abnormal) Range: 0-149 Cholesterol, Total 176 mg/dL (Normal) Range: 100-199 93-Xmp-173462:15 CBC WITH MANUAL DIFF Comments: PATIENT WAS FASTINGPERFORMED BY: [facility] Rlwlzy0335 [facility] [id number] Information: [id number] (07094) Immature Grans (Abs) 0.0 {x10E3/uL} (Normal) Range: [...] 3.77-5.28 WBC 7.0 {x10E3/uL} (Normal) Range: 3.4-10.8 89-Wue-099157:20 Blood Glucose , Office (04436) Blood Glucose , Office 102 (Normal) 08-Wwg-239981:20 HgA1C , Office (59347) HgA1C , Office 6.0 % (Normal) Range: 4.6 - 7.1 3-Spl-813628:27 URINE VERÓNICA CULTURE-IDENTIFICATN Comments: PATIENT NOT FASTINGPERFORMED BY: LabCoSaint [facility]'s Hospital at SussexArhqwn6950 [facility] [id number] Information: [id number] (28354) Result 1 NG36 (Normal) Comments: No growth in 36 - 48 hours. Urine Culture,Comprehensive Final report (Normal) 4-Hzq-351768:03 URINALYSIS (61084) URINALYSIS neg for all (Normal) 80-Gdm-13140:31 URINE VERÓNICA CULTURE-SHARIFA COL Comments: PATIENT NOT FASTINGPERFORMED BY: LabCoSaint Clare's Hospital at SussexOcigny1982 [facility] [id number] Information: SRC:UR [id number] COUNT (73013) Antimicrobial MIHEAD (Normal) Comments: S = Susceptible; [...] mL (Normal) Urine Final report Culture,Comprehensive (Normal) 56-Fvn-61640:26 Urinalysis, Office (03453) UA - LEUKOCYTE ESTERASE Moderate (Normal) UA - NITRITE Negative (Normal) URINE UROBILINGN SHARIFA TIMED Normal mg/dL (Normal) UA - PROTEIN Negative mg/dL (Normal) UA - PH 5 (Abnormal) UA - BLOOD Hemolyzed Small (Normal) UA - SPECIFIC GRAVITY 1.025 (Normal) UA - KETONES Negative mg/dL (Normal) UA - BILIRUBIN Negative (Normal) UA - GLUCOSE Negative (Normal) :52 LIPID PANEL (66498) Comments: PATIENT WAS FASTINGPERFORMED BY: [employer]70 [facility] [id number] Information: [id number] LDL/HDL Ratio 2.1 {ratio_units} (Normal) Range: 0.0-3.2 LDL Cholesterol Calc 111 mg/dL (Abnormal) Range: 0-99 VLDL Cholesterol Hillary 31 mg/dL (Normal) Range: 5-40 HDL Cholesterol 53 mg/dL (Normal) Comments: According to ATP-III Guidelines, HDL-C >59 mg/dL is considered anegative risk factor for CHD. Triglycerides 156 mg/dL (Abnormal) Range: 0-149 Cholesterol, Total 195 mg/dL (Normal) Range: 100-199 :52 HEPATIC FUNCTION PANEL (08882) Comments: PATIENT WAS FASTINGPERFORMED BY: [employer]70 [facility] [id number] ALT (SGPT) 17 [iU]/L (Normal) Range: 0-32 AST (SGOT) 23 [iU]/L (Normal) Range: 0-40 Alkaline Phosphatase, S 57 [iU]/L (Normal) Range: 39-117 Bilirubin, Direct 0.08 mg/dL (Normal) Range: 0.00-0.40 Bilirubin, Total 0.3 mg/dL (Normal) Range: 0.0-1.2 Albumin, Serum 4.3 g/dL (Normal) Range: 3.6-4.8 Protein, Total, Serum 7.2 g/dL (Normal) Range: 6.0-8.5 :52 CALCIFEDIOL (85598) Comments: PATIENT WAS FASTINGPERFORMED BY: [employer] Yghtib0811 [facility] [id number] Vitamin D, 25-Hydroxy 13.8 ng/mL (Abnormal) Range: 30.0-100.0 Comments: Vitamin D deficiency has been defined by the [place] and an Endocrine Society practice guideline as alevel of serum 25-OH vitamin D less than 20 ng/mL (1,2).The Endocrine Society went on to further define vitamin Dinsufficiency as a level between 21 and 29 ng/mL (2).1. IOM ([place]). 2010. Dietary reference intakes for calcium and D. [place]: The National Academies Press.2. Azael MF, Leslee NC, Hillary PHILLIPS, et al. Evaluation, treatment, and prevention of vitamin D deficiency: an Endocrine Society clinical practice guideline. JCEM. 2010; 96(7):1911-30. 32-Vir-729872:38 Blood Glucose , Office (30954) Blood Glucose , Office 114 (Normal) 35-Czl-166352:38 HgA1C , Office (13173) HgA1C , Office 5.8 % (Normal) Range: 4.6 - 7.1 34-Hvs-364713:23 Urinalysis, Office (89779) UA - BILIRUBIN Negative (Normal) UA - BLOOD Hemolyzed Trace (Normal) UA - GLUCOSE Negative (Normal) UA - KETONES Negative mg/dL (Normal) UA - LEUKOCYTE ESTERASE Small (Normal) UA - NITRITE Negative (Normal) UA - PH 5.0 (Normal) UA - PROTEIN Negative mg/dL (Normal) UA - SPECIFIC GRAVITY 1.025 (Normal) URINE UROBILINGN SHARIFA TIMED Normal mg/dL (Normal) 47-Kfv-452636:50 Metabolic Panel, Basic Comments: PATIENT NOT FASTINGPERFORMED BY: [facility] Ltqqqx0915 [facility] [id number] Information: [id number] (18589) Calcium, Serum 9.9 mg/dL (Normal) Range: 8.6-10.2 [...] Glucose, Serum 84 mg/dL (Normal) Range: 65-99 46-Saf-946236:39 BRAIN WITHOUT CONTRAST Radiology Report See Note [...] Sweeney M.D.July 12, 2013 at 4:19:02 PM [id number] Signed PV/PV If you are the referring physician and would like to consult with theradiologist who provided this interpretation, please contact Petrona molina M.D. at [phone]. If this radiologist is unavailable, youwillbe directed to another radiologist to assist. If you are a patient with a question regarding this report, pleasecontactyour referring physician directly. Professional Interpretation Provided By: [employer], Phone , These documents contain legally protected [...] 07/12/13 1622 Sign by: Petrona Meek MD 4-Nyt-241811:39 CRE GFRAA 45 mL/min (Abnormal) GFR 37 [...] 3000 mL (Normal) UPCT 24.0 {HOURS} (Normal) 6-Hzp-440575:39 Metabolic Panel, Basic Comments: recheck in one week; PATIENT NOT FASTINGPERFORMED BY: LabCoSaint Clare's Hospital at SussexHmnzmi0370 [facility] [id number] Information: [id number] (20294) Calcium, Serum 9.7 mg/dL (Normal) Range: 8.6-10.2 [...] Glucose, Serum 109 mg/dL (Abnormal) Range: 65-99 73-Rxb-90436:50 Metabolic Panel, Basic Comments: PATIENT NOT FASTINGPERFORMED BY: LabCoSaint Clare's Hospital at SussexMtcyvg3320 [facility] [id number] Information: [id number] (71385) Calcium, Serum 9.5 mg/dL (Normal) Range: 8.6-10.2 [...] (Abnormal) Range: 65-99 :29 HgA1C , Office (19334) HgA1C , Office 5.7 % (Normal) Range: 4.6 - 7.1 32-Isn-323863:14 TSH (64387) Comments: PATIENT NOT FASTINGPERFORMED BY: [facility]6370 [facility] [id number] TSH 2.850 {uIU/mL} (Normal) Range: 0.450-4.500 :14 CBC, Platelets & Auto Comments: PATIENT NOT FASTINGPERFORMED BY: [facility]6370 [facility] [id number] Information: [id number] Diff (97681) Immature Grans (Abs) 0.0 {x10E3/uL} (Normal) Range: [...] 3.77-5.28 WBC 7.5 {x10E3/uL} (Normal) Range: 4.0-10.5 77-Qsb-678232:14 Metabolic Panel, Comprehensive Comments: PATIENT NOT FASTINGPERFORMED BY: [facility] Vvffyx3520 [facility] [id number] (34838) ALT (SGPT) 19 [iU]/L (Normal) Range: 0-32 [...] Glucose, Serum 105 mg/dL (Abnormal) Range: 65-99 21-Iyt-507294:06 URINE VERÓNICA CULTURE-SHARIFA COL Comments: PATIENT NOT FASTINGPERFORMED BY: DreamCloset.comV[facility]6370 [facility] [id number] Information: SRC:UR ADD [id number] COUNT (74930) Antimicrobial MIHEAD (Normal) Comments: S = Susceptible; [...] mL (Normal) Urine Final report Culture,Comprehensive (Normal) 07-Tlq-368379:09 Urinalysis, Office (67775) UA - BILIRUBIN Negative (Normal) UA - BLOOD Hemolyzed Moderate (Normal) UA - GLUCOSE Negative (Normal) UA - KETONES Negative mg/dL (Normal) UA - LEUKOCYTE ESTERASE Small (Normal) UA - NITRITE Negative (Normal) UA - PH 6.0 (Normal) UA - PROTEIN Negative mg/dL (Normal) UA - SPECIFIC GRAVITY 1.005 (Normal) URINE UROBILINGN SHARIFA TIMED 2 mg/dL (Normal) 0-Tqk-592854:04 Renal function Panel Comments: PATIENT NOT FASTINGPERFORMED BY: [facility]6370 [facility] [id number] Information: [id number] (86336) Albumin, Serum 4.1 g/dL (Normal) Range: 3.6-4.8 [...] Glucose, Serum 110 mg/dL (Abnormal) Range: 65-99 94-Qfp-061761:22 CALCIFEDIOL (21632) Comments: PATIENT NOT FASTINGPERFORMED BY: [employer]6370 [facility] [place] [id number] Vitamin D, 25-Hydroxy 16.7 ng/mL (Abnormal) Range: 30.0-100.0 Comments: Vitamin D deficiency has been defined by the [place] [facility] and an Endocrine Society practice guideline as alevel of serum 25-OH vitamin D less than 20 ng/mL (1,2).The Endocrine Society went on to further define vitamin Dinsufficiency as a level between 21 and 29 ng/mL (2).1. IOM ([place]). 2010. Dietary reference intakes for calcium and D. [place]: The National Academies Press.2. Azael MF, Leslee LEMON, Hillary PHILLIPS, et al. Evaluation, treatment, and prevention of vitamin D deficiency: an Endocrine Society clinical practice guideline. JCEM. 2010; 96(7):1911-30. 90-Icw-840364:22 MAGNESIUM (06761) Comments: PATIENT NOT FASTINGPERFORMED BY: [employer] [facility] Zzauwt3540 Monk RoadDublin [place] [id number] Magnesium, Serum 2.3 mg/dL (Normal) Range: 1.6-2.6 :22 T4, FREE (THYROXINE) (37716) Comments: PATIENT NOT FASTINGPERFORMED BY: [facility] Mogtor0180 Monk RoadDublin [place] [id number] T4,Free(Direct) 1.50 ng/dL (Normal) Range: 0.82-1.77 :22 T3, FREE (TRIDOTHYRONINE) (48690) Comments: PATIENT NOT FASTINGPERFORMED BY: [facility]6370 [facility] [id number] Triiodothyronine,Free,Serum 2.6 pg/mL (Normal) Range: 2.0-4.4 :22 TSH (19423) Comments: PATIENT NOT FASTINGPERFORMED BY: [facility]6370 [facility] [id number] TSH 1.920 {uIU/mL} (Normal) Range: 0.450-4.500 :22 CBC, Platelets & Auto Comments: PATIENT NOT FASTINGPERFORMED BY: [facility]6370 [facility] [id number] Information: [id number] Diff (95839) Immature Grans (Abs) 0.0 {x10E3/uL} (Normal) Range: [...] 3.77-5.28 WBC 8.5 {x10E3/uL} (Normal) Range: 4.0-10.5 98-Hgl-723396:22 Metabolic Panel, Comprehensive Comments: PATIENT NOT FASTINGPERFORMED BY: LabCoSaint Clare's Hospital at SussexAyadaz4110 [facility] [id number] (14886) ALT (SGPT) 21 [iU]/L (Normal) Range: 0-32 [...] Glucose, Serum 97 mg/dL (Normal) Range: 65-99 6-Drh-815359:20 METABOLIC PANEL, COMPREHENSIVE Comments: PATIENT WAS FASTINGPERFORMED BY: [employer] Eatxgj8510 [facility] [id number] (37093) ALT (SGPT) 19 [iU]/L (Normal) Range: 0-32 [...] Glucose, Serum 102 mg/dL (Abnormal) Range: 65-99 4-Ojq-294219:20 CBC WITH MANUAL DIFF Comments: PATIENT WAS FASTINGPERFORMED BY: Soluble SystemsSaint Clare's Hospital at SussexAyjafo0415 [facility] [id number] Information: [id number] (39162) Immature Grans (Abs) 0.0 {x10E3/uL} (Normal) Range: [...] 3.77-5.28 WBC 7.4 {x10E3/uL} (Normal) Range: 3.4-10.8 8-Txf-955366:20 LIPID PANEL (40140) Comments: PATIENT WAS FASTINGPERFORMED BY: [facility] Knhhhb8428 [facility] [id number] LDL/HDL Ratio 2.0 {ratio_units} (Normal) Range: 0.0-3.2 LDL Cholesterol Calc 109 mg/dL (Abnormal) Range: 0-99 VLDL Cholesterol Hillary 35 mg/dL (Normal) Range: 5-40 HDL Cholesterol 54 mg/dL (Normal) Comments: According to ATP-III Guidelines, HDL-C >59 mg/dL is considered anegative risk factor for CHD. Triglycerides 175 mg/dL (Abnormal) Range: 0-149 Cholesterol, Total 198 mg/dL (Normal) Range: 100-199 6-Efi-712780:20 TSH (53161) Comments: PATIENT WAS FASTINGPERFORMED BY: LabCoChinle Comprehensive Health Care FacilityVxdugi09[address] [place] [id number] TSH 2.720 {uIU/mL} (Normal) Range: 0.450-4.500 52-Puj-888179:22 HgA1C , Office (40860) HgA1C , Office 6.0 % (Normal) Range: 4.6 - 7.1 79-Pxo-090855:22 Blood Glucose , Office (62824) Blood Glucose , Office 249 (Normal) Comments: has eaten in last 2h 57-Shb-939548:20 CHEST, PA AND LATERAL Radiology Report See [...] Signed:Anibal Lan M.D.November 022012 at 8:14:34 AM [id number] Signed GP/GP If you are the referring physician and would like to consult with theradiologist who provided this interpretation, please contact Eliecer Bui M.D. at [phone]. If this radiologist is unavailable, youwill be directed to another radiologist to assist. If you are a patient with a question regarding this report, pleasecontactyour referring physician directly. Professional Interpretation Provided By: [employer], Phone , These documents contain legally protected [...] on 11/22/12817 Sign by: Anibal Lan MD 70-Rjx-37247:19 VERÓNICA CULTURE-OTHER (57980) Comments: PATIENT NOT FASTINGPERFORMED BY: [employer] LabCoSaint Clare's Hospital at SussexNjbmfm4371 [facility] [id number] Information: SRC:THRT [id number] Result 1 RRF (Normal) Comments: Routine respiratory duyen Upper Respiratory Culture Final report (Normal) 55-Mzb-661300:33 Rapid Strep Test, Office (60527) Rapid Strep Test, Office Negative (Normal) 4-Djw-027909:50 Celiac Disease Comprehensive Comments: PERFORMED BY: [employer] LabCoDesinoFlyfsr0807 [facility] [id number] Immunoglobulin A, Qn, 364 mg/dL (Normal) Range: [...] Serum 4.0 mmol/L Comments: PERFORMED BY: [facility] Zyfiyc1919 [facility] [id number] 4:50 (Normal) Range: 3.5-5.2 3-Piz-114802:30 CBCMD ANC 3.7 3/uL (Normal) Range: 2.0-7.7 [...] 4.2-5.4 WBC 7.0 {k/mm3} (Normal) Range: 4.4-11.0 4-Urj-933565:30 CMP GAP 11 (Normal) Range: 5-15 CO2 [...] 7-18 GLU 93 mg/dL (Normal) Range: 70-110 5-Don-091141:30 LIPID LDL 108 mg/dL (Normal) Range: 0-130 [...] Very High > or = 500 mg/dL 5-Omg-936177:30 MIACRE MIALB 5.8 mg/L (Normal) tMICROCREAT 9.5 {mg/g_CRE} (Normal) CREU 60.7 mg/dL (Normal) 4-Mgj-207012:30 TSH 0.75 {uIU/mL} (Normal) Range: 0.358-3.74 :54 HgA1C , Office (35457) HgA1C , Office 5.5 % (Normal) Range: 4.6 - 7.1 43-Rer-29042:54 Blood Glucose , Office (03769) Blood Glucose , Office 116 (Normal) 80-Exd-314622:26 URINE VERÓNICA CULTURE-SHARIFA COL Comments: PATIENT NOT FASTINGPERFORMED BY: [facility] Qspvda0879 [address] [place] [id number] Information: SRC:CLAUDINE [id number] COUNT (90102) Result 1 MUG (Normal) Comments: Mixed urogenital flora50,000-100,000 colony forming units per mL Urine Final report (Normal) Culture,Comprehensive 36-Jro-441445:46 Urinalysis, Office (38351) UA - BILIRUBIN Small (Normal) UA - BLOOD Hemolyzed Small (Normal) UA - GLUCOSE Negative (Normal) UA - KETONES Small mg/dL (Normal) UA - LEUKOCYTE ESTERASE Moderate (Normal) UA - NITRITE Negative (Normal) UA - PH 6.0 (Normal) UA - PROTEIN Trace mg/dL (Normal) UA - SPECIFIC GRAVITY 1.025 (Normal) URINE UROBILINGN SHARIFA TIMED Normal mg/dL (Normal) 00-Ban-097271:55 CHEST, PA AND LATERAL Radiology Report See [...] radiologist regarding this report, please call our [id number] line @ Dictated on 1518 by Isiah Lan MDranscribed on 11/23/11 1611 by ITS IMPORTSign by Anibal Lan MD on 11/23/11 1611 Sign by: Edyta PROCTORAnibal :51 Urinalysis, Office (07693) UA - BILIRUBIN Negative (Normal) UA - BLOOD Hemolyzed Small (Normal) UA - GLUCOSE Negative (Normal) UA - KETONES Negative mg/dL (Normal) UA - LEUKOCYTE ESTERASE Large (Normal) UA - NITRITE Negative (Normal) UA - PH 7.0 (Normal) UA - PROTEIN Negative mg/dL (Normal) UA - SPECIFIC GRAVITY 1.020 (Normal) URINE UROBILINGN SHARIFA TIMED 2 mg/dL (Normal) :51 HgA1C , Office (70360) HgA1C , Office 6.2 % (Normal) Range: 4.6 - 7.1 :50 Blood Glucose , Office (24870) Blood Glucose , Office 119 (Normal) :55 Urinalysis, Office (96089) UA - BILIRUBIN Negative (Normal) UA - [...] Ultrasound evaluation of the right upper quadrant [facility] with real-time ultrasonography and [...] Muscle) 13 {Units} (Normal) Comments: PERFORMED BY: [employer] [place] [id number] :58 Antibody Range: 0-19 Comments: Negative 0 - 19 Weak positive 20 - 30 Moderate to strong positive >30 . Actin Antibodies are found in 52-85% of patients with autoimmune hepatitis or chronic active hepatitis and in 22% of patients with primary biliary cirrhosis. :58 Antinuclear Antibodies Direct Comments: PERFORMED BY: [employer] [employer] [place] [id number] GAYATRI Direct Negative (Normal) :5 Ceruloplasmin 31.6 mg/dL (Normal) Comments: PERFORMED BY: [employer] [place] [id number] Range: 16.0-45.0 :5 Ferritin, Serum 440 ng/mL (Abnormal) Comments: PERFORMED BY: [employer] [place] [id number] Range: 13-150 :58 Hepatitis Panel (4) Comments: PERFORMED BY: [facility]6370 [facility] [id number] Hep C Virus Ab 0.1 {s/co_ratio} (Normal) Range: 0.0-0.9 Comments: Negative: < 0.8 Indeterminate 0.8 - 0.9 Positive: > 0.9 . In order to reduce the incidence of a false positive result, the [facility] recommends that all s/co ratios between 1.0 and 10.9 be confirmed with additional RIBA or PCR testing. Hep B Core Ab, IgM Negative (Normal) HBsAg Screen Negative (Normal) Hep A Ab, IgM Negative (Normal) 07-Gyp-53326:58 Iron and TIBC Comments: PERFORMED BY: [facility]6370 [facility] [id number] Iron Saturation 37 % (Normal) Range: 15-55 Iron, Serum 96 ug/dL (Normal) Range: 35-155 UIBC 163 ug/dL (Normal) Range: 150-375 Iron Bind.Cap.(TIBC) 259 ug/dL (Normal) Range: 250-450 :58 Platelet Count on Citrated Comments: PERFORMED BY: [facility]6370 [facility] [id number] Bld Plt Count, Citrated Bld 216 {X10E3/uL} Range: 140-415 (Normal) 11-Jun-2011 Written Authorization WAR (Normal) Comments: PERFORMED BY: [facility]6370 [facility] [id number] 9:58 Comments: Written Authorization Received.Authorization received from [facility] [id number] by Elina Swain :30 HgA1C , Office (57410) HgA1C , Office 6.7 % (Normal) Range: 4.6 - 7.1 :30 Blood Glucose , Office (86251) Blood Glucose , Office 159 (Normal) :15 METABOLIC PANEL, COMPREHENSIVE Comments: PATIENT WAS FASTINGPERFORMED BY: [facility]6370 [facility] [id number] (35441) ALT (SGPT) 51 [iU]/L (Abnormal) Range: 0-40 [...] mg/dL (Abnormal) Range: 65-99 03-Jun-20119:15 LIPID PANEL (56769) Comments: PATIENT WAS FASTINGPERFORMED BY: [facility] Jlhieo4504 [facility] [id number] LDL/HDL Ratio 1.8 {ratio_units} (Normal) Range: 0.0-3.2 [...] DIFF Comments: PATIENT WAS FASTINGPERFORMED BY: LabCoSaint Clare's Hospital at SussexXwubya4475 [facility] [id number] Information: [id number] (38309) Immature Grans (Abs) 0.0 {x10E3/uL} (Normal) Range: [...] Hepatic Function Panel (7) Comments: PERFORMED BY: Soluble SystemsSaint Clare's Hospital at SussexYshbet9520 [facility] [id number] ALT (SGPT) 63 [iU]/L (Abnormal) Range: 0-40 Alkaline Phosphatase, S 63 [iU]/L (Normal) Range: 25-165 AST (SGOT) 53 [iU]/L (Abnormal) Range: 0-40 Bilirubin, Direct 0.13 mg/dL (Normal) Range: 0.00-0.40 Bilirubin, Total 0.4 mg/dL (Normal) Range: 0.0-1.2 Albumin, Serum 4.5 g/dL (Normal) Range: 3.6-4.8 Protein, Total, Serum 7.8 g/dL (Normal) Range: 6.0-8.5 :26 Hepatitis Panel (4) Comments: PERFORMED BY: Soluble SystemsSaint Clare's Hospital at SussexTuagtp3974 [facility] [id number] Hep C Virus Ab <0.1 {s/co_ratio} (Normal) [...] (Normal) Hep A Ab, IgM Negative (Normal) 2-Uhb-639747:04 LIVER D BILI 0.11 mg/dL (Normal) Range: 0.00-0.30 T BILI 0.30 mg/dL (Normal) Range: 0.00-1.00 ALK P 57 U/L (Normal) Range: 50-136 ALT 68 U/L (Normal) Range: 12-78 ALB 4.0 g/dL (Normal) Range: 3.4-5.0 AST 53 U/L (Abnormal) Range: 15-37 T PROT 8.0 g/dL (Normal) Range: 6.4-8.2 :59 HgA1C , Office (25249) HgA1C , Office 6.6 % (Normal) Range: 4.6 - 7.1 :59 Blood Glucose , Office (00860) Blood Glucose , Office 124 (Normal) :17 HgA1C , Office (50382) HgA1C , Office 6.4 % (Normal) Range: 4.6 - 7.1 :17 Blood Glucose , Office (75271) Blood Glucose , Office 141 (Normal) :17 Hemoglobin Glyclated (HGB A1C) Comments: PATIENT WAS FASTINGPERFORMED BY: Soluble SystemsChinle Comprehensive Health Care FacilityDvgbkb3241 [facility] [id number] (02761) Hemoglobin A1c 6.0 % (Abnormal) Range: 4.8-5.6 Comments: Increased risk for diabetes: 5.7 - 6.4 Diabetes: >6.4 Glycemic control for adults with diabetes: <7.0 :17 MICROALBUMIN: CREATININE RATIO Comments: PATIENT WAS FASTINGPERFORMED BY: Soluble SystemsChinle Comprehensive Health Care FacilityTqodtn1550 [facility] [id number] (49634) AND (63443) Microalb/Creat Ratio 2.9 {mg/g_creat} (Normal) Range: 0.0-30.0 Creatinine, Urine 49.0 mg/dL (Normal) Range: 15.0-278.0 Microalbumin, Urine 1.4 ug/mL (Normal) Range: 0.0-17.0 :17 METABOLIC PANEL, COMPREHENSIVE Comments: PATIENT WAS FASTINGPERFORMED BY: [employer] Xzgglv8913 [facility] [id number] (35515) Alkaline Phosphatase, S 61 [iU]/L (Normal) Range: [...] Glucose, Serum 116 mg/dL (Abnormal) Range: 65-99 80-Pxm-659031:17 LIPID PANEL (38018) Comments: PATIENT WAS FASTINGPERFORMED BY: LabCoSaint Clare's Hospital at SussexJjtppn3202 [facility] [id number] LDL/HDL Ratio 2.2 {ratio_units} (Normal) Range: 0.0-3.2 HDL Cholesterol 50 mg/dL (Normal) Comments: According to ATP-III Guidelines, HDL-C >59 mg/dL is considered anegative risk factor for CHD. LDL Cholesterol Calc 109 mg/dL (Abnormal) Range: 0-99 VLDL Cholesterol Hillary 56 mg/dL (Abnormal) Range: 5-40 Cholesterol, Total 215 mg/dL (Abnormal) Range: 100-199 Triglycerides 282 mg/dL (Abnormal) Range: 0-149 10-Iyp-948653:17 CBC WITH MANUAL DIFF (37242) Comments: PATIENT WAS FASTINGPERFORMED BY: LabWearPointSaint Clare's Hospital at SussexPzapoz8736 [facility] [id number] Immature Grans (Abs) 0.0 {x10E3/uL} (Normal) Range: [...] (Normal) Range: 4.0-10.5 :57 Folic Acid Serum (86650) Comments: PATIENT NOT FASTINGPERFORMED BY: Soluble SystemsSaint Clare's Hospital at SussexPqkzzl7733 [facility] [id number] Folate (Folic Acid), Serum 12.6 ng/mL (Normal) Comments: Indeterminate: 2.2 - 3.0Deficient: <2.2 :57 Vitamin B-12 (cyanocobalamin) Comments: PATIENT NOT FASTINGPERFORMED BY: [place] 7633570 [facility] [id number] (47727) Vitamin B12 551 pg/mL (Normal) Range: 211-946 :57 CBC with manual diff Comments: PATIENT NOT FASTINGPERFORMED BY: [facility]6370 [facility] [id number] Information: [id number] (09186) Baso (Absolute) 0.1 {x10E3/uL} (Normal) Range: 0.0-0.2 [...] 3.80-5.10 WBC 9.4 {x10E3/uL} (Normal) Range: 4.0-10.5 01-Zge-009708:57 Metabolic Panel, Comprehensive Comments: PATIENT NOT FASTINGPERFORMED BY: LabCoSaint Clare's Hospital at SussexUjuvjl7434 [facility] [id number] (55920) ALT (SGPT) 18 [iU]/L (Normal) Range: 0-40 [...] mg/dL (Abnormal) Range: 65-99 :57 DRUG ASSAY-LITHIUM (87498) Comments: PATIENT NOT FASTINGPERFORMED BY: [employer] Wtrhzm8065 [facility] [id number] Alligator (Eskalith), Serum 1.0 mmol/L (Normal) Range: 0.6-1.4 Comments: Detection Limit = 0.1<0.1 indicates None Detected :57 T4, FREE (THYROXINE) (67223) Comments: PATIENT NOT FASTINGPERFORMED BY: [employer] Fobvrj4637 [facility] [id number] T4,Free(Direct) 1.17 ng/dL (Normal) Range: 0.82-1.77 :57 T3, FREE (TRIDOTHYRONINE) (60074) Comments: PATIENT NOT FASTINGPERFORMED BY: [employer] Wkiqhw0141 [facility] [id number] Triiodothyronine,Free,Serum 2.1 pg/mL (Normal) Range: 2.0-4.4 :57 TSH (05633) Comments: PATIENT NOT FASTINGPERFORMED BY: [employer] [id number] [facility] [id number] TSH 4.080 {uIU/mL} (Normal) Range: 0.450-4.500 [id number]-[id number]:43 HgA1C , Office (57127) HgA1C , Office 5.3 % (Normal) Range: 4.6 - 7.1 :43 Blood Glucose , Office (78954) Blood Glucose , Office 125 (Normal) :4 [...] 136-145 GLU 84 mg/dL (Normal) Range: 70-110 45-Jyf-132293:42 LI 0.60 mmol/L (Normal) Comments: Therapeutic Range: 0.60 - 1.20 72-Fyh-364167:58 Thin prep Pap Comments: Source.............Cervical;EndocervicalNo. of containers..01 CYTYC Thin Prep VialPATIENT NOT FASTINGPERFORMED BY: [facility] [address] [id number] Information: [id number] ([id number]) Note: PAPSMR (Normal) Comments: The Pap smear [...] atrophy.V 72.31 ; Routine gynecological examinationRaxander Gonzalez Senior Network Architect (ASCP) 12-Wit-972107:00 TSH ([id number]) Comments: PATIENT NOT FASTINGPERFORMED BY: CB [facility] Yxibkm4431 [facility] [id number] TSH 3.440 {uIU/mL} (Normal) Range: 0.450-4.500 71-Ajv-689789:00 CBC (Auto) ([id number]) Comments: PATIENT NOT FASTINGPERFORMED BY: [facility] [id number] Information: [id number] Platelets 258 {x10E3/uL} (Normal) Range: 140-415 RDW 13.6 % (Normal) Range: 11.7-15.0 Hematocrit 43.5 % (Normal) Range: 34.0-44.0 MCH 31.6 pg (Normal) Range: 27.0-34.0 MCHC 33.6 g/dL (Normal) Range: 32.0-36.0 MCV 94 fL (Normal) Range: 80-98 Hemoglobin 14.6 g/dL (Normal) Range: 11.5-15.0 RBC 4.61 {x10E6/uL} (Normal) Range: 3.80-5.10 WBC 8.6 {x10E3/uL} (Normal) Range: 4.0-10.5 25-Cef-648054:00 Metabolic Panel, Basic Comments: PATIENT NOT FASTINGPERFORMED BY: [email or web address] [id number] ([id number]) Calcium, Serum 9.1 mg/dL (Normal) Range: 8.6-10.2 [...] Glucose, Serum 111 mg/dL (Abnormal) Range: 65-99 78-Dwt-312771:00 DRUG ASSAY-LITHIUM (62804) Comments: all these labs standing order prn; PATIENT NOT FASTINGPERFORMED BY: [facility] SussexNkpxgz4470 [facility] [id number] Alligator (Eskalith), Serum 0.9 mmol/L (Normal) Range: 0.6-1.4 Comments: Detection Limit = 0.1<0.1 indicates None Detected 59-Xnd-69583:16 METABOLIC PANEL, COMPREHENSIVE Comments: PATIENT NOT FASTINGPERFORMED BY: [facility]Co[facility] SussexEbpfuv7232 [facility] [id number] ([id number]) A/G Ratio 1.3 (Normal) Range: 1.1-2.5 Alkaline [...] Glucose, Serum 207 mg/dL (Abnormal) Range: 65-99 58-Oqe-72183:16 CBC WITH MANUAL DIFF Comments: PATIENT NOT FASTINGPERFORMED BY: [facility] SussexNuolxl5743 [facility] [id number] Information: [id number] ([id number]) Baso (Absolute) 0.1 {x10E3/uL} (Normal) Range: 0.0-0.2 [...] PATIENT NOT FASTINGPERFORMED BY: [facility] [id number] ([id number]) AND (58680) Microalb/Creat Ratio 6.2 {mg/g_creat} (Normal) Range: 0.0-30.0 Microalbumin, Urine 2.5 ug/mL (Normal) Range: 0.0-17.0 Creatinine, Urine 40.1 mg/dL (Normal) Range: 15.0-278.0 :38 HgA1C , Office (74939) HgA1C , Office 6.6 % (Normal) Range: 4.6 - 7.1 :38 Blood Glucose , Office (09623) Blood Glucose , Office 214 (Normal) 89-Ivl-783249:05 URINE VERÓNICA CULTURE-IDENTIFICATN Comments: PATIENT NOT FASTINGPERFORMED BY: [facility] [id number] Information: [id number] ([id number]) Antimicrobial MIHEAD (Normal) Comments: S = Susceptible; [...] mL (Normal) Urine Final report (Normal) Culture,Comprehensive 41-Ywa-988560:23 CHEST, PA AND LATERAL (MT) Radiology Report See Note (Normal) Comments: Exam Number: [id number] CLINICAL:58-year-old female with cough, pain and shortness [...] otherwise unremarkable. Reported By: SISI MART Dr. 77-Erc-75198:23 B.pertussisB.parapertussis PCR Comments: PERFORMED BY: [place] Av[address]Lpb[address] [place] [address] [id number] Bordetella parapertussis DNA Negative (Normal) Comments: .This test was developed and its performance characteristics determinedby [facility]. It has not been cleared or approved by theU.S. Food and Drug Administration. The FDA has determined that s uchclearance or approval is not necessary. This test is used for clinicalpurposes. It should not be regarded as investigational or research. Bordetella pertussis DNA Negative (Normal) 02-Eyy-017988:50 HgA1C , Office (82053) HgA1C , Office 5.5 % (Normal) Range: 4.6 - 7.1 :50 Blood Glucose , Office (28969) Blood Glucose , Office 90 (Normal) :33 HgA1C , Office (61850) HgA1C , Office 5.6 % (Normal) Range: 4.6 - 7.1 :41 HgA1C , Office (17512) HgA1C , Office 5.5 % (Normal) Range: 4.6 - 7.1 Comments: :41 Blood Glucose , Office (65721) Comments: 89 Blood Glucose , Office 89 [...] (Normal) Range: 0.34-4.82 :42 HgA1C , Office (73925) HgA1C , Office 5.4 % (Normal) Range: 4.6 - 7.1 :42 Blood Glucose , Office (95158) Blood Glucose , Office 103 (Normal) :20 CBC HCT 44.0 % (Normal) Range: 37-47 HGB 15.2 g/dL (Normal) Range: 12.0-16.0 MCH 31.7 pg (Normal) Range: 27.0-32.0 MCHC 34.6 g/dL (Normal) Range: 32-36 MCV 91.5 fL (Normal) Range: 81-99 PLT 306 K/mm3 (Normal) Range: 150-450 RBC 4.81 {M/mm3} (Normal) Range: 4.2-5.4 RDW 12.2 % (Normal) Range: 11.6-14.6 WBC 6.7 K/mm3 (Normal) Range: 4.4-11.0 00-Pka-739945:20 COMP METABOLIC A/G 1.0 {RATIO} (Normal) Range: [...] T PROT 8.0 g/dL (Normal) Range: 6.4-8.2 66-Ceh-647542:20 LIPID CHOL 148 mg/dL (Normal) Comments: <200 [...] mg/dL VLDL 30 mg/dL (Normal) Range: 5-40 43-Hzu-586597:20 ROUTINE UA BILIRUBIN URINE SeeNote (Normal) Comments: [...] 0.2 EU/dl (Normal) Range: 0.2 - 1.0 87-Tfm-71849:06 THYROID (HP) Radiology Report See Note (Normal) Comments: Exam Number: [id number] THYROID ULTRASOUND HISTORYGoiter. There is borderline increase [...] 03, 2007. Reported By: PETRONA REGALADO M.D. 44-Iax-09815:20 MAMM, UILAT DIAG DIGITAL & CAD Radiology Report See Note (Normal) Comments: Exam Number: [id number] UNILATERAL LEFT DIAGNOSTIC MAMMOGRAPHY CLINICAL STATEMENTLeft breast [...] The mammogramswere also examined with computer-aided detection software([employer] Reported By: REID KRUEGER M.D. : TSH 0.94 {uIU/mL} Range: 0.34-4.82 50 (Normal) :06 MAMM, BILAT SCRN DIGITAL & CAD Radiology Report See Note (Normal) Comments: Exam Number: [id number] MAMMOGRAM, BILATERAL SCREENING DIGITAL AND CAD HISTORYRoutine [...] mammograms werealso examined with computer-aided detection software ([employer] Reported By: PETRONA REGALADO M.D. 0-Fpt-893411:05 THYROID () Radiology Report See Note (Normal) Comments: Exam Number: [id number] THYROID ULTRASOUND HISTORYGoiter. High resolution real time [...] 6 months. Reported By: PETRONA REGALADO M.D. 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 Indication: Stress incontinence, female Diabetes mellitus [...] acute Planned Observations VITAMIN B12 AND FOLATES (96918)Indication: Neuropathic pain On: :08 Request Blood Glucose , Office (25607)Indication: Diabetes mellitus type II, controlled On: 88-Fxg-59837:04 Request LIPID PANEL (34352)Indication: Neuropathic pain On: 96-Sub-67774:54 Request Blood Glucose , Office (92829)Indication: Diabetes mellitus type II, controlled On: 02-Nov-20178:55 Request D-Dimer (26718)Indication: Shortness of breath On: 30-Khc-658048:19 Request Metabolic Panel, Comprehensive (57141)Indication: Diabetes mellitus type II, controlled On: 43-Mgu-055703:19 Request Comments: Nov 2017 LIPID PANEL (85064)Indication: Diabetes mellitus type II, controlled On: 36-Twh-555403:19 Request Comments: Nov 2017 URINALYSIS (98119)Indication: Diabetes mellitus type II, controlled On: 42-Oue-491715:19 Request Comments: Nov 2017 TSH (05815)Indication: Diabetes mellitus type II, controlled On: 24-Wmb-172221:18 Request Comments: Nov 2017 CBC, Platelets & Auto Diff (62997)Indication: Diabetes mellitus type II, controlled On: 78-Vsp-250306:18 Request Comments: Nov 2017 MICROALBUMIN: CREATININE RATIO (22665) AND (99407)Indication: Diabetes mellitus type II, controlled On: 46-Vrx-651171:18 Request Comments: Nov 2017 HgA1C , Office (43365)Indication: Diabetes mellitus type II, controlled On: 97-Lhv-010839:44 Request Anaerobic & Aerobic Culture (82349)Indication: Mouth pain On: 8-Yuw-594037:11 Request Metabolic Panel, Comprehensive (51282)Indication: Chronic kidney disease (CKD), stage I On: 64-Npl-586648:50 Request Comments: 2 weeks Metabolic Panel, Comprehensive (34936)Indication: Diabetes mellitus type II, controlled On: 33-Yxz-784582:56 Request Comments: today URINALYSIS (61432)Indication: Chronic kidney disease (CKD), stage I On: 45-Bie-258114:52 Request Comments: Jul 2017 MICROALBUMIN: CREATININE RATIO (10235) AND (89287)Indication: Chronic kidney disease (CKD), stage I On: 84-Cfn-764325:52 Request Comments: jul 2017 Lipid Panel (72993)Indication: Hypertension (Renamed from BP (high blood pressure)) On: 49-Pzi-191493:52 Request Comments: Jul 2017 TSH (00960)Indication: Leg weakness On: 48-Zqi-206446:52 Request Comments: Jul 2017 CBC, Platelets & Auto Diff (54471)Indication: Leg weakness On: 38-Btc-010521:52 Request Comments: jul 2017 METABOLIC PANEL, COMPREHENSIVE (84656)Indication: Weakness On: 69-Phb-781710:55 Request METABOLIC PANEL, COMPREHENSIVE (15130)Indication: Hypokalemia On: :43 Request Comments: STAT SED RATE ERYTHROCYTE (17179)Indication: Weakness On: 39-Vmj-897146:29 Request TSH (THYROID STIMULATING HORMONE) (85295)Indication: Unspecified abnormal involuntary movements On: 46-Dwy-208163:17 Request METABOLIC PANEL, COMPREHENSIVE (68990)Indication: Unspecified abnormal involuntary movements On: :17 Request CBC, PLATELETS & AUT DIFF (75823)Indication: Unspecified abnormal involuntary movements On: 04-Ujc-984056:17 Request URINE VERÓNICA CULTURE-IDENTIFICATN (90465)Indication: Weakness On: 66-Fwi-043682:07 Request Blood Glucose , Office (58487)Indication: Unspecified abnormal involuntary movements On: 29-Lbf-19653:59 Request VITAMIN B12 AND FOLATES (10400)Indication: Unspecified abnormal involuntary movements On: :57 Request SPEP (42879)Indication: Elevated serum creatinine On: 91-Wnd-397355:31 Request CALCIFIDIOL (04551) VIT D 25Indication: Vitamin D deficiency (Renamed from Avitaminosis D) On: :27 Request TSH (60706)Indication: Hypothyroidism On: : Request MICROALBUMIN: CREATININE RATIO (38528) AND (57131)Indication: Diabetes mellitus type II, controlled On: : Request METABOLIC PANEL, COMPREHENSIVE (53367)Indication: Diabetes mellitus type II, controlled On: : Request LIPID PANEL (31759)Indication: Diabetes mellitus type II, controlled On: : Request CBC with auto diff (04397)Indication: Diabetes mellitus type II, controlled On: : Request CALCIFIDIOL (41622) VIT D 25Indication: Vitamin D deficiency (Renamed from Avitaminosis D) On: 33-Ieq-485177:15 Request Comments: in three months (approximately) METABOLIC PANEL, COMPREHENSIVE (46215)Indication: Diabetes mellitus type II, controlled On: 07-Tau-511858:15 Request Comments: in three months (approximately) SODIUM URINE (72974)Indication: Hyponatremia On: 2-Slb-365712:51 Request OSMOLALITY URINE (97053)Indication: Hyponatremia On: 1-Msc-903546:50 Request OSMOLALITY BLOOD (75973)Indication: Hyponatremia On: 0-Wjy-043791:50 Request ASSAY, TROPONIN, QUANTITATIVE (aka Troponin I) (75592)Indication: Chest pain On: 22-Yqq-453568:40 Request Comments: stat D-Dimer (47775)Indication: Chest pain On: 73-Tgm-422602:40 Request Comments: stat TSH (97404)Indication: Chest pain On: :40 Request CBC WITH MANUAL DIFF (90286)Indication: Chest pain On: 63-Ohx-246697:40 Request METABOLIC PANEL, COMPREHENSIVE (87579)Indication: Chest pain On: 98-Aud-321325:40 Request URINE VERÓNICA CULTURE (SHARIFA COL COUNT) (16376)Indication: Dysuria (Renamed from Difficult or painful urination) On: 74-Aty-378972:24 Request Metabolic Panel, Comprehensive (95944)Indication: Hypertension (Renamed from BP (high blood pressure)) On: 15-Nqz-930659:56 Request Metabolic Panel, Basic (75809)Indication: Elevated LFTs On: 88-Gdw-182041:16 Request 24 hour urine for Protein (35652)Indication: Elevated serum creatinine On: 85-Fge-001492:40 Request Comments: recheck in one week CREATININE CLEARANCE (68469)Indication: Elevated serum creatinine On: 81-Wwg-133492:39 Request Comments: recheck in one week Blood Glucose , Office (99839)Indication: Diabetes mellitus type II, controlled On: 59-Cum-93072:29 Request METABOLIC PANEL, COMPREHENSIVE (35072)Indication: Hypokalemia (Renamed from Decreased potassium in the blood) On: 18-Jrh-079073:52 Request MICROALBUMIN: CREATININE RATIO (39974) AND (21569)Indication: Diabetes mellitus type II, controlled On: 15-Wee-892912:14 Request FLURESCNT ANTIB SCRN EA (01225) celiac profileIndication: Irritable bowel syndrome (Renamed from Functional bowel disease) On: 5-Vkp-054176:58 Request IMMUNOASSAY, ANALYTE (NON-INFECT) (05070) celiac profileIndication: Irritable bowel syndrome (Renamed from Functional bowel disease) On: 9-Njw-661916:58 Request IGA/IGD/IGG/IGM-EACH (80593) celiac profileIndication: Irritable bowel syndrome (Renamed from Functional bowel disease) On: 8-Qdf-641988:58 Request Potassium Serum (24546)Indication: Hypokalemia (Renamed from Decreased potassium in the blood) On: 5-Seg-983622:58 Request Celiac Disease Comphrehensive Profile (42850)Indication: Irritable bowel syndrome (Renamed from Functional bowel disease) On: 04-Nov-20129:56 Request METABOLIC PANEL, COMPREHENSIVE (45966)Indication: Diabetes mellitus type II, controlled On: 30-Guv-752873:32 Request LIPID PANEL (47210)Indication: Diabetes mellitus type II, controlled On: 10-Jwe-863193:32 Request CBC WITH MANUAL DIFF (18930)Indication: Diabetes mellitus type II, controlled On: 05-Etk-673391:32 Request MICROALBUMIN: CREATININE RATIO (60169) AND (44632)Indication: Diabetes mellitus type II, controlled On: :32 Request TSH (97431)Indication: Hypothyroidism On: :32 Request TSH (26485)Indication: Hypothyroidism On: : Request MICROALBUMIN: CREATININE RATIO (55301) AND (00613)Indication: Diabetes mellitus type II, controlled On: : Request METABOLIC PANEL, COMPREHENSIVE (06480)Indication: Diabetes mellitus type II, controlled On: : Request LIPID PANEL (64575)Indication: Diabetes mellitus type II, controlled On: : Request CBC WITH MANUAL DIFF (08568)Indication: Diabetes mellitus type II, controlled On: : Request URINE VERÓNICA CULTURE-SHARIFA COL COUNT (30448)Indication: Dysuria (Renamed from Difficult or painful urination) On: 68-Dzu-194969:15 Request URINE VERÓNICA CULTURE-SHARIFA COL COUNT (83165)Indication: Dysuria (Renamed from Difficult or painful urination) On: 26-Aoy-998002:55 Request Ferritin (45568)Indication: Elevated LFTs On: 66-Fkf-928015:50 Request Comments: repeat now per Dr. Cabral with iron level Iron Binding Capacity (TIBC) (81420)Indication: Elevated LFTs On: 06-Cjl-401267:50 Request Iron (19134)Indication: Elevated LFTs On: 62-Vtr-963202:49 Request CBC (Auto) (62992)Indication: Thrombocytopenia, unspecified On: 35-Giq-033756: Request Comments: nonclumping tube HEPATITIS PANEL (38567)Indication: Elevated LFTs On: : Request FERRITIN (38520)Indication: Elevated LFTs On: 10-Dmo-675888:00 Request CERULOPLASMIN (68177)Indication: Elevated LFTs On: 24-Irf-471030:00 Request ASM (ANTI SMOOTH MUSCLE ANTIBODY) (01518)Indication: Elevated LFTs On: 36-Fxw-844468:00 Request GAYATRI (ANTINUCLEAR ANTIBODY) (46386)Indication: Elevated LFTs On: 37-Pqk-109564:00 Request HEPATITIS PANEL (28703)Indication: Elevated LFTs On: 99-Wxn-94537:01 Request TSH (50783)Indication: Hypothyroidism On: 98-Hmm-279349:16 Request LIPID PANEL (83227)Indication: Diabetes mellitus type II, controlled On: 41-Tyd-044747:15 Request DRUG ASSAY-LITHIUM (25854)Indication: Bipolar affective disorder, mixed On: 45-Wag-467842:14 Request Metabolic Panel, Basic (35719)Indication: Bipolar affective disorder, mixed On: 08-Yps-106181:13 Request Metabolic Panel, Basic (54160)Indication: Bipolar affective disorder, mixed On: 28-Sqm-400520:22 Request DRUG ASSAY-LITHIUM (70262)Indication: Bipolar affective disorder, mixed On: 38-Kxu-894607:22 Request Comments: 2 months Urinalysis, Office (75043)Indication: Urinary frequency On: 12-Mpj-818760:27 Request Comments: done pms HEPATIC FUNCTION PANEL (96204)Indication: Other and unspecified hyperlipidemia On: 9-Mvm-451297:45 Request Lipid Panel (25290)Indication: Other and unspecified hyperlipidemia On: 2-Tie-767238:45 Request Lipid Panel (78476)Indication: Other and unspecified hyperlipidemia On: 59-Igq-725867:17 Request CBC, Platelets & Auto Diff (13250)Indication: Other and unspecified hyperlipidemia On: 79-Cgq-654905:17 Request Metabolic Panel, Comprehensive (83581)Indication: Other and unspecified hyperlipidemia On: 39-Smo-059276:17 Request TSH (41090)Indication: Hypothyroidism On: 16-Lqn-629647:15 Request Metabolic Panel, Basic (74370)Indication: Other and unspecified hyperlipidemia On: :55 Request Lipid Panel (01011)Indication: Other and unspecified hyperlipidemia On: :55 Request Comments: in three months (approximately) CBC (Auto) (45157)Indication: Intestinal disaccharidase deficiencies and disaccharide malabsorption On: :56 Request Metabolic Panel, Comprehensive (63812)Indication: Intestinal disaccharidase deficiencies and disaccharide malabsorption On: :56 Request Lipid Panel (34156)Indication: Intestinal disaccharidase deficiencies and disaccharide malabsorption On: 08-Bkk-86313:56 Request Comments: in three months (approximately) MICROALBUMIN 24 HOUR OR RANDOM On: 78-Rke-780889:04 Request (20264) CREATININE CLEARANCE (04152) On: 44-Uti-555868:03 Request CBC (Auto) (32131)Indication: Unspecified disorder of kidney and ureter On: :53 Request Lipid Panel (87186)Indication: Unspecified disorder of kidney and ureter On: :53 Request Metabolic Panel, Comprehensive (80928)Indication: Unspecified disorder of kidney and ureter On: :53 Request TSH (06064)Indication: Hypothyroidism On: :53 Request TSH (31242)Indication: Hypothyroidism On: 10-Szj-209217:18 Request URINALYSIS (28459)Indication: Intestinal disaccharidase deficiencies and disaccharide malabsorption On: 49-Pfj-684869:43 Request CBC (Auto) (78066)Indication: Intestinal disaccharidase deficiencies and disaccharide malabsorption On: 92-Gze-482498:43 Request Lipid Panel (45050)Indication: Intestinal disaccharidase deficiencies and disaccharide malabsorption On: 85-Elj-299165:43 Request Metabolic Panel, Comprehensive (08932)Indication: Intestinal disaccharidase deficiencies and disaccharide malabsorption On: 31-Wed-602013:43 Request Planned Procedures COMPUTED TOMOGRAPHY ANGIOGRAPHY OF On: 01-Aug-2018 Intent CHEST FOR PULMONARY EMBOLISM Comments: stat for PE (63711)By: Eli Bowman CNP, CNP, Mary E Echo CompleteBy: Eli Bowman CNP On: 29-Jul-2018 Intent Eli Bowman CNP Spirometry (65946)By: Colby WATTERS On: 29-Jul-2018 Intent Eli Mcelroy CNP Holter Monitor 24 hrsBy: Colby WATTERS, On: 29-Jul-2018 Intent Eli Mcelroy CNP CHEST XRAY, PA & LATERAL (37633)By: On: 29-Jul-2018 Intent Eli Bowman CNP, CNP, Mary E ELECTROCARDIOGRAM, COMPLETE (ECG) On: 29-Jul-2018 Intent (68847)By: Colby WATTERS Eli Bowman Comments: sinus rhythm Eli WATTERS Aerosol Treatment (77443)By: Colby On: 29-Jul-2018 Intent Eli WATTERS CNP, Mary E Flu Vaccine (Quadrivalent) 08583Ck: On: 22-Jul-2018 Intent Tejal Ceron Comments: Lot #[id number]-L dltd, IMDose prefilled syringegiven by: Rosalie Ceron MA Toradol Injection, 30 mg (J1885)By: On: 09-May-2018 Intent Nunu Root Comments: lot [id number] 12/2029mgIMleft gmas, RAILROAD FIRER SCREENING DIGITAL TOMOSYNTHESIS OF On: 18-Apr-2018 Intent BREAST (54329)By: Colby WATTERS Eli Mcelroy CNP DEXA SCAN AXIAL SKELETON (45727)By: On: 18-Apr-2018 Intent Colby WATTERSEli CNP, Mary E Toradol Injection, 30 mg (J1885)By: On: 22-Mar-2018 Intent Nunu Root Comments: toradol 30mg injection lot:87-129-SLupv:10/2019R GMpt tolerated wellMSMITH,RAILROAD FIRER COMPLETE ELECTROMYOGRAPHY (EMG) WITH On: 22-Mar-2018 Intent NERVE CONDUCTION STUDIES OF EACH Comments: Bilateral lower legs EXTREMITY (17085)By: Nunu Root EMGBy: José Miguelsilvano Eli WATTERS CNP, On: 03-Jan-2018 Intent Eli Lubin Comments: both legs Nerve ConductionBy: Lisajanna Eli WATTERS On: 03-Jan-2018 Intent Eli Hurtado CNP Comments: both legs Toradol Injection, 30 mg (J1885)By: On: 23-Dec-2017 Intent Mayda Dobbins DO Comments: toradol 30mg injectionlot: 57-145-MEmfm: 06/2018L GMpt tolerated wellAD RAILROAD FIRER Spirometry (54133)By: Dk, On: 16-Nov-2017 Intent Nunu Comments: Normal spirometry Aerosol Treatment (35418)By: Shilpi On: 30-Aug-2017 Mayda Bailey DO Comments: less noise with forced exp Solu- Medrol Injection, 125mg On: 30-Aug-2017 Intent (J2930)By: Mayda Dobbins DO Comments: solumedrol 125mg injectionlot: [id number]: GMpt tolerated wellAD RAILROAD FIRER Radiology - Chest- PA and LatBy: On: 30-Aug-2017 Intent Mayda Dobbins DO Solu- Medrol Injection, 125mg On: 26-Aug-2017 Intent (J2930)By: Mayda Dobbins DO Comments: solumedrol 125mg injectionlot: [id number]: 12/2019L GMpt tolerated wellAD RAILROAD FIRER Aerosol Treatment (56948)By: Shilpi On: 26-Aug-2017 Intent Mayda COLEMAN Comments: [place] Spirometry (83092)By: Shilpi COLEMAN, On: 26-Aug-2017 Intent Mayda Comments: mild obstruction Radiology - Shoulder - RightBy: On: 20-Jul-2017 Intent Edita Cabral MD Radiology - Lumbar SpineBy: Misha On: 20-Jul-2017 Intent Edita PROCTOR DRAIN/INJECT MAJOR JOINT OR BURSA On: 13-Apr-2017 Intent (60972)By: Eli Bowman CNP Comments: injevted left knee today Eli WATTERS PHYSICAL THERAPY (41798)By: Dk On: 08-Apr-2017 Intent Nunu Radiology - Knee - RightBy: Dk On: 08-Apr-2017 Intent Nunu Radiology - Knee - LeftBy: Dk, On: 08-Apr-2017 Intent Nunu ATTENDED SLEEP STUDY (31740)By: On: 18-Jan-2017 Intent Eli Bowman CNP, CNP, Mary E DEXA SCAN AXIAL SKELETON (92949)By: On: 24-Nov-2016 Intent Donnie Gonzales MD MAMMOGRAM, SCREENING, BOTH BREAST On: 24-Nov-2016 Intent (78111)By: Donnie Gonzales MD US KIDNEY COMPLETE (28630)By: Janet On: 16-Jul-2016 Intent Donnie PROCTOR EsophagramBy: Edita Cabral MD On: 06-Feb-2016 Intent Comments: 12mm tablet X-RAY EXAM OF ESOPHAGUS (87737) - On: 04-Feb-2016 Intent Barium Swallow with 12mm tabletBy: Donnie Gonzales MD Carotid DopplerBy: Edita Cabral MD On: 16-Sep-2015 Intent M TD VACCINE ADULT (02550)By: Misha On: 16-Sep-2015 Intent Edita PROCTOR TDAP VACCINE >7 IM (28422)By: On: 16-Sep-2015 Intent Edita Cabral MD Pap Smear, Medicare (Q0091)By: On: 16-Sep-2015 Intent Edita Cabral MD MAMMOGRAM, SCREENING, BOTH BREAST On: 16-Sep-2015 Intent (80945)By: Edita Cabral MD Renal Artery DopplerBy: Misha PROCTOR, On: 04-Feb-2015 Intent Edita Clinton Ultrasound - RenalBy: Misha PROCTOR, On: 04-Feb-2015 Intent Edita Clinton DEXA SCAN AXIAL SKELETON (95997)By: On: 17-Jan-2015 Intent Edita Cabral MD Comments: postmenapausal MAMMOGRAM, SCREENING, BOTH BREAST On: 17-Jan-2015 Intent (75460)By: Edita Cabral MD Radiology - Shoulder - [...] with back pain- stat call results Spirometry (46729)By: Thee COLEMAN, On: 30-Apr-2014 Intent Erna Schaefer Comments: good effort and curve normal ELECTROCARDIOGRAM, COMPLETE (ECG) On: 30-Apr-2014 Intent (03196)By: Erna Kingston DO Eprescribed prescriptions (G8553)By: On: 12-Feb-2014 Intent Edita Cabral MD SPECIMEN HANDLING/TRANSPORT On: 15-Jan-2014 Intent (34281)By: Eli Bowman CNP, CNP, Mary E Eprescribed prescriptions (G8553)By: On: 11-Oct-2013 Intent Nunu Stephens LPN ADMINISTRATION OF INFLUENZA VIRUS On: 24-Jul-2013 Intent VACCINE (G0008)By: Edita Cabral MD FLU VAC, SPLIT, >3 YEARS, INTRAMUSC On: 24-Jul-2013 Intent (66999)By: Edita Cabral MD Echo CompleteBy: Edita Cabral MD On: 27-Jun-2013 Intent Carotid DopplerBy: Edita Cabral MD On: 27-Jun-2013 Intent M Eprescribed prescriptions (G8553)By: On: 27-Jun-2013 Intent Teressa Molina LPN L MRI - BrainBy: Eli Bowman CNP On: 16-Jun-2013 Intent Eli Bowman CNP SPECIMEN HANDLING/TRANSPORT On: 16-May-2013 Intent (09922)By: Sue Ewing LPN Holter Monitor 24 hrsBy: Colby WATTERS, On: 28-Apr-2013 Intent Eli Mcelroy CNP ELECTROCARDIOGRAM, COMPLETE (ECG) On: 28-Apr-2013 Intent (20772)By: Eli Bowman CNP Comments: sinus bradycardia Eli WATTERS Bio Z (28011)By: Eli Bowman CNP On: 28-Apr-2013 Intent Eli Bowman CNP EKG (88959)By: Edita Cabral MD On: 28-Mar-2013 Intent Comments: see scanned document of test done to see results reviewed today with patient Eprescribed prescriptions ([id number])By: On: 28-Mar-2013 Intent Jason Molina LPNn L Eprescribed prescriptions ([id number])By: On: 08-Dec-2012 Intent Nunu Stephens LPN Spirometry ([id number])By: Shilpi COLEMAN, On: 25-Nov-2012 Intent Mayda Comments: Computer not running so not able to perform test Aerosol Treatment ([id number])By: Shilpi On: 25-Nov-2012 Intent Mayda COLEMAN Spirometry ([id number])By: Thee COLEMAN, On: 21-Nov-2012 Intent Erna A Comments: good effort and curve normal Radiology - Chest- PA and LatBy: On: 21-Nov-2012 Intent Thee COLEMAN Erna A Eprescribed prescriptions ([id number])By: On: 21-Nov-2012 Intent Makayla Dillard LPN ADMINISTRATION OF PNEUMOCOCCAL On: 31-Oct-2012 Intent VACCINE ([id number])By: Edita Cabral MD Comments: Lot #[id number]/19/14Site-right deltoidDose0.5mlgiven by: [facility] per fax. M PNEUM VAC ADLT/IMUMNOSPR, SBC/INTRM On: 31-Oct-2012 Intent ([id number])By: Jodi Carvalho LPN Eprescribed prescriptions ([id number])By: On: 18-Oct-2012 Intent Teressa Molina LPN FLU VAC, SPLIT, >3 YEARS, INTRAMUSC On: 01-Jul-2012 Intent ([id number])By: Eli Bowman CNP Comments: Lot:[id number]:6.13Amt:prefilled syringeSite: L Dltd, IMGiven by: MARISA Torres CNP, Mary E ADMINISTRATION OF INFLUENZA VIRUS On: 01-Jul-2012 Intent VACCINE ([id number])By: Eil Bowman CNP, CNP, Mary E SPECIMEN HANDLING/TRANSPORT On: 01-Jul-2012 Intent ([id number])By: Sue Ewing LPN Solu -Medrol Injection, 125 mg On: 23-Nov-2011 Intent ([id number])By: Edita Cabral MD Comments: Lot [id number]-R hip, IMDose 125mggiven by:Teressa Radiology - ChestBy: Misha PROCTOR, On: 23-Nov-2011 Intent Edita Clinton Comments: wet read Pulse Oximetry ([id number])By: Benoit On: 23-Nov-2011 Intent AKBAR Aerosol Treatment ([id number])By: Colby On: 16-Nov-2011 Intent Eli WATTERS CNP, Mary E Pulse Oximetry ([id number])By: Vin On: 16-Nov-2011 Intent Lynn Comments: 93 FLU VAC, SPLIT, >3 YEARS, INTRAMUSC On: 16-Nov-2011 Intent ([id number])By: Lynn Banuelos Comments: received at work SPECIMEN HANDLING/TRANSPORT On: 14-Sep-2011 Intent ([id number])By: Edita Cabral MD SPECIMEN HANDLING/TRANSPORT On: 26-Aug-2011 Intent ([id number])By: Sue Ewing LPN Ultrasound - LiverBy: Misha PROCTOR, On: 11-Jun-2011 Intent Edita Clinton EKG ([id number])By: Edita Cabral MD On: 16-Feb-2011 Intent MAMMOGRAM, SCREENING, BOTH BREASTS On: 13-Mar-2010 Intent ([id number])By: Edita Cabral MD MAMMOGRAM, SCREENING, BOTH BREASTS On: 06-Mar-2010 Intent ([id number])By: Edita Cabral MD MAMMOGRAM, SCREENING, BOTH BREASTS On: 13-Feb-2010 Intent ([id number])By: Edita Cabral MD Spirometry ([id number])By: Misha PROCTOR, On: 01-Oct-2009 Intent Edita Clinton ELECTROCARDIOGRAM, COMPLETE (ECG) On: 01-Oct-2009 Intent ([id number])By: Edita Cabral MD Pulse Oximetry ([id number])By: Benoit On: 01-Oct-2009 Intent AKBAR Spirometry ([id number])By: Thee COLEMAN, On: 30-Jul-2009 Intent Erna Schaefer Comments: good effort and curve normal Radiology - Chest- PA and LatBy: On: 30-Jul-2009 Intent Erna Kingston DO Pulse Oximetry ([id number])By: Vin, On: 30-Jul-2009 Intent Lynn Comments: 94%repeat 97-98 EKG ([id number])By: Erna Kingston DO On: 14-Jul-2009 Intent Comments: ekg showed normal sinus rhythym, normal axis, no acute st/t wave changes old t wave inversion noted on previous ekg Pulse Oximetry ([id number])By: Vin, On: 11-Jul-2009 Intent Lynn Comments: 97% Solu -Medrol Injection, 125 mg On: 09-Jul-2009 Intent ([id number])By: Erna Kingston DO Comments: Lot #:[id number] date:mount given:125mgRoute:IM Site given:left buttockGiven by: MARIA DOLORES Cordon Aerosol Treatment ([id number])By: Thee On: 09-Jul-2009 Erna Bailey DO Pulse Oximetry ([id number])By: Thee COLEMAN, On: 09-Jul-2009 Intent Erna A Comments: repeat after treatment was 96 Pulse Oximetry ([id number])By: Vin, On: 09-Jul-2009 Intent Lynn Comments: 93% Spirometry (54491)By: Gildardo SOUSA, On: 25-Jan-2009 Intent Sue MAMMOGRAM, SCREENING, BOTH BREASTS On: 29-May-2008 Intent ([id number])By: Edita Cabral MD EKG ([id number])By: Edita Cabral MD On: 29-May-2008 Intent Spirometry ([id number])By: Misha PROCTOR, On: 27-Dec-2007 Intent Edita Clinton Ultrasound - ThyroidBy: Misha PROCTOR, On: 22-Mar-2007 Intent Edita Clinton MAMMOGRAM, SCREENING, BOTH BREASTS On: 22-Mar-2007 Intent ([id number])By: Edita Cabral MD MAMMOGRAM, SCREENING, BOTH BREASTS On: 22-Mar-2007 Intent ([id number])By: Edita Cabral MD ELECTROCARDIOGRAM, COMPLETE (ECG) On: 22-Mar-2007 Intent ([id number])By: Edita Cabral MD Planned Medications INJECTION, KETOROLAC [...] disease, bilateral : DISCONTINUED - POTASSIUM SERUM ([id number]) Indication: Active Meniere's disease, bilateral Elevated LFTs : DISCONTINUED - HEPATIC FUNCTION PANEL (26794) Indication: Elevated LFTs Diabetes mellitus type II, [...] seen in December for same problem by lEi meade. Pt states she is still having [...] reveiwing printed for pt to take to [facility] , [ADDITIONAL REASON] Weight Gain - [...] care, told to go to ER at [facility] diagnosed with Esophagitis was given [...] occurred following a specific injury (lifting at [employer] for years but no fall). The injury [...] bathroom. The patient has completed the f [facility] preventative measures: PAP smear (needs updated ), mammography (needs updated ) and colonoscopy (needs updated however patient refuse to have done bc she was hospitalized with the last one with infection for 5 days ). The patient does have durable power of manager zone and living will. The patient has noticed [...] for Tdap vaccination (Renamed from Need for hiufguofnj-peeaqff-vpukfzvmu (Tdap) vaccine, adult/adolescent), Goiter (Renamed from [place] [...] (240.9), Hypothyroidism(244.9) [facility] Payers [place] [place] Insurance Lilly Toro; a guarantor
--- OUTSIDE RECORDS SUMMARY | 2018-11-25 15:28 | XMS RPT_ITS | Continuity of Care Document ---
:1950 Author Organization [facility] Address [address] [place] [address] Phone Care Team Providers Name Role Phone Colby JANENEEli E Unavailable Mina Baer MD Unavailable Nhung Duval Unavailable [facility], [facility] Unavailable Kasi Scott Unavailable Mariia Zhang [...] with bottles, extensive review with nurse and [facility], med list updated Status: Active Postmenopausal (Renamed from Postmenopausal status) (Z78.0, V49.81) Status: Active Pregnancies () Comments: 2 Status: Active S/P hysterectomy (Z90.710, V88.01) Comments: for endometrial hyperplasia 2015 Status: Active Shortness of breath (R06.02, 786.05) Status: Active Sleep apnea (G47.30, 780.57) Comments: needs repeat sleep study at [facility] per [facility] to get back on cpap Status: Active [...] Caitlin Delaney Start : 29-Jul-2018 Active Ergocalciferol 69585 UNIT Oral Capsule 1 Capsule twice weekly [...] tablet daily (15 MG) Active Comments:Catrachito Pen Denniston /16 31G X 5 MM Miscellaneous 1 [...] 28 {Tablet} Refills: 0 Ordered:06-Jan-2016 José Miguel INSPECTOR WATCH ASSEMBLY, [facility] Lubin Start [...] 14 {Tablet} Refills: 0 Ordered:16-May-2013 José Miguel INSPECTOR WATCH ASSEMBLY, [facility], Elif Start : 16-May-2013 End : 23-May-2013 Inactive Cheratussin AC 100-10 MG/5ML Oral Syrup 1 Teaspoon(s) qhs prn cough for 0 days Quantity: 8 {Fluid_Ounce} Refills: 0 Ordered:16-Jun-2016 Priya Gillette Start : 12-Mar-2016 End : 16-Jun-2016 Inactive Comments:eight CIPRO, 500MG (Oral Tablet) 1 Tablet bid for 7 days Quantity: 14 {Tablet} Refills: 0 Ordered:15-Jan-2014 [facility], [facility] Elif [...] : 07-Nov-2012 End : 12-Feb-2014 Inactive Drisdol 06977 UNIT Oral Capsule 1 (one) Capsule once [...] Quantity: 90 {Tablet} Refills: 0 Ordered:23-Apr-2017 Ciesa INSPECTOR WATCH ASSEMBLY, Eli ECjeannea JANENE, Elif Start : 23-Apr-2017 [...] : 29-Jul-2010 End : 30-Sep-2010 Inactive Nystatin 564543 UNIT/ML Mouth/Throat Suspension 4-6 Milliliter swish and [...] : 12-Dec-2015 End : 16-Jun-2016 Inactive Comments:per [facility] er Topamax 100 MG Oral Tablet [...] Quantity: 30 {Tablet} Refills: 3 Ordered:11-Oct-2014 Edita Cabarl MD Start : 11-Oct-2014 End : 11-Oct-2014 Inactive Zithromax Z-Rambo 250 MG Oral Tablet tad Tablet qd for 0 days Quantity: 1 {Package} Refills: 0 Ordered:03-Jan-2018 Naomi Hassan LPN Start : 16-Nov-2017 End : 03-Jan-2018 Inactive Comments:1 rambo as directed ZOSTAVAX, 54394SEF/0.65ML (Subcutaneous Solution Reconstituted) 1 For Solution once [...] Start : 04-Jan-2017 End : 04-Jan-2017 Discontinued Comments:[facility] FLEXERIL, 10MG (Oral Tablet) 1 [...] : 13-Nov-2013 End : 13-Nov-2013 Discontinued Comments:ID [id number] Medrol 4 MG Oral Tablet Therapy Pack [...] 18-Jan-2017 End : 27-Jul-2017 Discontinued Vitamin D3 41281 UNIT Oral Tablet 1 (one) Tablet Tablet once a week for 60 days Quantity: 8 {Tablet} Refills: 0 Ordered:04-Jan-2017 Slarb EXECUTIVE DIRECTOR OF MARKETING, Naomi Start : 24-Nov-2016 End : 04-Jan-2017 [...] for Tdap vaccination (Renamed from Need for odvzzrnrsx-bezdhlt-ocrxpwsna (Tdap) vaccine, adult/adolescent) (Z23, V06.1) Status: Inactive [...] of wound infection, PE.Not malnourishedLabs:CBCCMPPT/INRtype and screen gel(57439)EK06/10/16: no acute changesHas good social support and [...] under good control Patient to use Mucinex rzkg-hia-vurpicy which helped her. Status: Inactive as of [...] Completed Comments: 2000 Tubal ligation 1963 Completed [facility] Left endolymphatic sac Completed decompression with shunt and middle ear infusion with decadron 03/05 Date Value Details 01-Aug-2018 CTA Chest W/WO Contrast Result: Comments: See Note; NOTES: [facility] Imaging Services [address] [place] [address] CTA Chest W/WO Contrast MR#: [id number] Acct: [id number] Name: ELIZABETH TORO Rep #: [id number] : 1950 F 67 From: Hardeep Calix MD PCP: Eli Bowman NP Status: REG CLI Study: CTA Chest W/WO Contrast Date of Exam: 08/01/18 Exam# [id number] Ordering Dr: Eli Bowman STUDY: CTA CHEST/T [...] Service support , CC: Eli Bowman NP S[employer] Architect: Signed 29-Jul-2018 Chest PA and Lateral Result: Comments: See Note; NOTES: [facility] Imaging Services [address] [place] [address] Chest PA and Lateral MR#: [id number] Acct: [id number] Name: ELIZABETH TORO Rep #: [id number] : 1950 F 67 From: Cami Klein MD PCP: Eli Bowman NP Status: REG CLI Study: Chest PA and Lateral Date of Exam: 07/29/18 Exam# [id number] Ordering Dr: Eli Bowman STUDY: X-RAY CHEST [...] Service support , CC: Eli Bowman NP S[employer]ico Architect: Signed 21-Apr-2018 Downtime Report Result: Comments: See Note; NOTES: [facility] Medical Records Department [address] [place] [address] Downtime Report MR#: [id number] Acct: [id number] Name: ELIZABETH TORO Rep #: : 1950 67 From: Alon Klein PCP: Eli Bowman NP Status: REG RCR This patient was seen during an EMR downtime April 04, 2018 - April 11, 2018. This patient may have a combination of p aper and electronic documentation or all paper documentation. All documentation is viewable within the e-chart portion of [employer] for each patient visit. 12-Apr-2018 NCS and/or EMG Patient Result: Comments: See Note; NOTES: [facility] Pulmonary Services/Neurology [address] [place] [address] MR#: [id number] Acct: [id number] Name: ELIZABETH TORO Rep #: [id number] : 1950 67 From: Kal Hernandez MD Referring Dr: Eli Bowman NP Status: REG CLI Ordering Dr: Date: Location: [facility] Sex: F C NCS and/or EMG [...] Kal Hernandez MD CC: Eli Bowman SENIOR COPYWRITER; Kal Hernandez MD Date Dictated: 04/12/18949 Date Transcribed: 04/12/18949 [employer] Architect: NF Signed 01-Feb-2018 PT D/C Summary (1) Result: Comments: See Note; NOTES: [facility] [address] [place] [address]. [address] [place] [address] Fax REHABILITATION SERVICES DISCHAR SUMMARY MR#: [id number] Acct: [id number] Name: ELIZABETH TORO Rep #: [id number] : 1950 67 From: Cristopher Francis PT, ATC Referring DrJose: Mayda Dobbins DO Status: REG RCR Insurance: [facility] PART A B PHYSICIAN [employer] INS [...] please feel free to call me at [phone]. Thank you for the referral of this patient. Sincerely, Cristopher Francis, PT, <Electronically signed by Andrea Francis PT, ATC> 02/01/18 0823 CC: Eli Bowman SENIOR COPYWRITER; Mayda Dobbins DO [facility] Signed 30-Dec-2017 Inital Evaluation (1) - PT Result: Comments: See Note; NOTES: [facility] [address] [place] [address]. [address] [place] [address] Fax REHABILITATION SERVICES INITIAL EVALUATION MR#: [id number] Acct: [id number] Name: ELIZABETH TORO Rep #: [id number] : 1950 67 From: Cristopher Fracnis PT, ATC Referring DrJose: Mayda Dobbins DO [...] to be FAXED BACK to us at [phone] for Medicare purposes. Please let me know if there are questions or concerns regarding this plan of care. Physician Signature: Date: <Electronically signed by Cristopher Francis PT, ATC> 12/30/17 1056 CC: Eli Bowman NP; Mayda Dobbins DO DT: 0 12/30/17 [facility] Signed For Medicare only, by signing this I certify the plan of care. Physicians Signature Date 08-Oct-2017 Operative Report Result: Comments: See Note; NOTES: [facility] Medical Records Department [address] [place] [address] Operative Report 10/08/172017 MR#: [id number] Acct: [id number] Name: XAVIER TORO LEILANI Schaefer Rep #: [id number] : 1950 67 From: Oscar Winston MD PCP: Eli Bowman NP Status: [facility] Y Location: [place] [address] Problem List (1) Intrinsic (urethral) sphincter deficiency [...] Discharge Instruction Result: Comments: See Note; NOTES: [facility] Medical Records Department [address] [place] [address] Instructions for Home/Discharge Instructions 10/08/171950 MR#: [id number] Acct: [id number] Name: ELIZABETH TORO Rep #: [id number] : 1950 67 From: Oscar Winston MD PCP: Eli Bowman NP Status: REG RIC Discharge Diet: Light diet - advance as [...] and Lateral Result: Comments: See Note; NOTES: [facility] Imaging Services [address] [place] [address] Chest PA and Lateral MR#: [id number] Acct: [id number] Name: ELIZABETH TORO Rep #: [id number] : 1950 F 67 From: Yury Arthur MD PCP: Eli Bowman Status: REG CLI Study: Chest PA and Lateral Date of Exam: 08/30/17 Exam# [id number] Ordering Dr: Mayda Dobbins DO STUDY: X-RAY [...] , CC: Eli Bowman; Mayda Dobbins DO [employer] Architect: Signed 20-Jul-2017 L/S Spine Min 4 Views Result: Comments: See Note; NOTES: [facility] Services [address] [place] [address] L/S Spine Min 4 Views MR#: [id number] Acct: [id number] Name: ELIZABETH TORO Rep #: [id number] : 1950 F 66 From: Dionte Lujan DO PCP: Eli Bowman Status: REG CLI Study: L/S Spine Min 4 Views Date of Exam: 07/20/17 Exam# [id number] Ordering Dr: Edita Cabral MD STUDY: X-RAY [...] Fax CC: Eli Bowman; Edita Cabral MD S[employer] Architect: Signed 20-Jul-2017 Shoulder min 2 Views Result: Comments: See Note; NOTES: [facility] [address] [place] [address] Shoulder min 2 Views MR#: [id number] Acct: [id number] Name: ELIZABETH TORO Rep #: [id number] : 1950 F 66 From: Dionte Lujan DO PCP: Eli Bowman Status: REG CLI Study: Shoulder min 2 Views Date of Exam: 07/20/17 Exam# [id number] Ordering Dr: Edita Cabral MD STUDY: X-RAY - RIGHT [facility] REASON FOR EXAM: Female, 66 years [...] , CC: Eli Bowman; Edita Cabral MD S[employer]ico Architect: Signed 11-May-2017 PT D/C Summary (1) Result: Comments: See Note; NOTES: [facility] Physical Therapy [facility] [address] [place] [address] Fax REHABILITATION SERVICES DISCHAR GE SUMMARY MR#: [id number] Acct: [id number] Name: ELIZABETH TORO Rep #: [id number] : 1950 66 From: Naomi Osorio MPT [...] please feel free to call me at [phone]. Thank you for the referral of this patient. Sincerely, Naomi Osorio <Electronically signed by Naomi Osorio MPT> 09/17 0919 CC: Nunu Root; Eli Bowman Signed 14-Apr-2017 Inital Evaluation (1) - PT Result: Comments: See Note; NOTES: [facility] Physical Therapy [facility] [address] [place], [place] [address] Fax REHABILITATION SERVICES INITIAL EVALUATION MR#: [id number] Acct: [id number] Name: ELIZABETH TORO Rep #: [id number] : 1950 66 From: Naomi COMER Referring [...] to be FAXED BACK to us at [phone] for Medicare purposes. Please let me know if there are questions or concerns regarding this plan of care. Physician Signature: Date: <Electronically signed by Naomi Osorio MPT> 04/14/17 1906 CC: Nunu Root; Eli Bowman Signed For Medicare only, by sign ing this I certify the plan of care. Physicians Signature Date 08-Apr-2017 Knee 4 or More Views Result: Comments: See Note; NOTES: [facility] [address] [facility] [facility] [place] [address] Shaddadamian 4d Knee 4 or More Views MR#: [id number] Acct: [id number] Name: ELIZABETH TORO p #: [id number] : 1950 F 66 From: Chalino Mancia MD PCP: Eli Bowman Status: REG CLI Study: Knee 4 or More Views Date of Exam: 04/08/17 Exam# [id number] Ordering Dr: Mayda Dobbins DO STUDY: X-RAY [...] , CC: Eli Bowman; Mayda Dobbins DO S[employer]ico Architect: Signed 08-Apr-2017 Knee 4 or More Views Result: Comments: See Note; NOTES: [facility] Services [address] [place] [address] Verdana 4d Knee 4 or More Views MR#: [id number] Acct: [id number] Name: ELIZABETH TORO p #: [id number] : 1950 F 66 From: Chalino Mancia MD PCP: Eli Bowman Status: REG CLI Study: Knee 4 or More Views Date of Exam: 04/08/17 Exam# [id number] Ordering Dr: Mayda Dobbins DO STUDY: X-RAY [...] , CC: Eli Bowman; Mayda Dobbins DO S[employer] Architect: Signed 15-Mar-2017 Sleep Study Report Result: Comments: See Note; NOTES: [facility] [address] [place] [address] Polysomnography with NCPAP MR#: [id number] Acct: [id number] Name: ELIZABETH TORO Viridiana p #: [id number] : 1950 66 From: Kal Hernandez MD [...] version). Please note that a reference to [facility] AHI in this report is consistent with the current Hypopnea definition according to Medicare Criteria and an AAS AHI reference is consistent with the current Hypopnea defini tion according to the AASM criteria and is recognized by [facility] as the RDI. PROCEDURE: The study was attended continuously by a electrical manufacturing technician. Monitored parameters included left and right [...] body mass index of 30.9 and an Bang[place] Sleepiness Scale score of 6. There is [...] can be requested. Kal Hernandez MD T: [facility] JOB: [id number] CC: Kal Hernandez MD 1151 1151 03/15/17 1451 <Electronically signed by Kal Hernandez MD> Date Kal Hernandez MD Co-signature (if applicable) Date Signed 05-Jan-2017 Esophagus Only Result: Comments: See Note; NOTES: [facility] Services [address] [place] [address] Ale 4d Esophagus Only MR#: [id number] Acct: [id number] Name: ELIZABETH TORO Rep #: [id number] : 1950 F 66 From: Gabriela Ragland MD PCP: Eli Bowman Status: REG CLI Study: Esophagus Only Date of Exam: 01/05/17 Exam# [id number] Ordering Dr: Sofia Bragg MD STUDY: AIR-CONTRAST [...] at 8:43 EST Tel , Service support [phone], CC: Eli Bowman; Sofia Bragg MD S[employer]ico Architect: Signed 29-Dec-2016 Emergency Department Summary Result: Comments: See Note; NOTES: [facility] Medical Records Department [address] [place] [address] Emergency Department Summary MR#: [id number] Acct: [id number] Name: XAVIER TORO Rep #: [id number] : 1950 66 From: Sofia Bragg MD PCP: Eli Bowman Status: DEP ER DATE OF SERVICE: 12/29/2016 CHIEF COMPLAINT: Sore throat. HISTORY OF PRESENT ILLNESS: This is a 66-year- old woman that states she was at [employer], choked on a piece of potato 5 [...] the case with Dr. Pena who is cushion builder for GI and he suggested ordering an [...] C: Eli Pena MD T: [facility] JOB: [id number] 12/29/16 <Electronically signed by Sofia Bragg MD> Date Sofia Bragg MD Cosigner Signature (If Indicated): Date CC: Eli Bowman; Junior Pena Date Dictated: 12/29/161828 Date Transcribed: 12/29/161828 Sap [employer]ico Architect: Signed 29-Dec-2016 Discharge Instruction Result: Comments: See Note; NOTES: [facility] Medical Records Department [facility] [place] [address] Discharge Instruction 12/29/161829 MR#: [id number] Acct: [id number] Name: ELIZABETH TORO Rep #: [id number] : 1950 66 From: Sofia Bragg MD [...] problems, contact your Primary Care Provider. Call [employer] [facility] ([phone] ) or report to the closest Emergency Room. Call 911 if necessary. 12/29/161832 <Electronically signed by Sofia Bragg MD> Date Sofia Siddiqui Signature (If Indicated): Date CC: Eli Bowman 07-Aug-2016 Sleep Study Report Result: Comments: See Note; NOTES: [facility] [address] [place] [address] Split Night Sleep Study MR#: [id number] Acct: [id number] Name: ELIZABETH TORO Rep #: [id number] : 1950 65 From: Kal Hernandez MD [...] version). Please note that a reference to [facility] AHI in this report is consistent with the current Hypopnea definition according to Medicare Criteria and an AAS AHI reference is consistent with the current Hypopnea defin ition according to the AASM criteria and is recognized by [facility] as the RDI. PROCEDURE: The study was attended continuously by a electrical manufacturing technician. Monitored parameters included left and right [...] a body mass index of 29.3 and Bang[place] Sleepiness Scale score of 2. There is [...] humidity. Kal Hernandez MD T: [facility] JOB: [id number] CC : Kal Hernandez MD 1144 1144 08/07/16 0959 <Electronically signed by Kal Hernandez MD> Date Kal Hernandez MD Co-signature (if applicable) Date Signed -Aug-2016 Kidney and Bladder Result: Comments: See Note; NOTES: [facility] Services [address] [place] [address] Verdana 4d Kidney and Bladder MR#: [id number] Acct: [id number] Name: JAYYELIZABETH A Rep #: [id number] : 1950 F 65 From: Anibal Lan MD PCP: Donnie Gonzales Status: [facility] CLI Study: Kidney and Bladder Date of Exam: 08/04/16 Exam# [id number] Ordering Dr: Beto Henry MD UDY: RENAL [...] Anibal Lan MD at 11:16 EDT Tel [phone], Service support [phone], CC: Soumya Henry M.D.; Donnie Gonzales Sap Fico Architect: Signed 23-Jun-2016 Operative Report Result: Comments: See Note; NOTES: [facility] Medical Records Department [address] [place] [address] Operative Report MR#: [id number] Acct: [id number] Name: ELIZABETH TORO Rep #: [id number] : 1950 65 From: Gm Brush MD PCP: Donnie Gonzales Status: [facility] DATE OF SERVICE: 06/22/2016 DATE OF PROCEDURE: June 22, 2016 SURGEON: Gm Brush M.D. JEWELRY SALESPERSON: Lia jacinto. ANESTHESIA: Gem Shelby and Frank [...] PATHOLOGY: Uterus, bilateral fallopian tubes and ovaries. mG Brush MD T: [facility] JOB: [id number] 06/23/16 0725 <Electronically signed by Gm Brush MD> Date __ Gm Brush MD Cosigner Signature (If Indicated): Date CC: Gm Brush MD; Donnie Nolasco Dicta nahed: 06/22/161102 Date Transcribed: 06/22/161102 S[employer]ico Architect: Signed 22-Jun-2016 Discharge Instruction Result: Comments: See Note; NOTES: [facility] Medical Records Department [address] [place] [address] Instructions for Home/Discharge Instructions 06/22/16 0904 MR#: [id number] Acct: [id number] Name: ELIZABETH TORO Rep #: [id number] : 1950 65 From: Gm Brush MD PCP: Donnie Gonzales Status: [facility] Discharge Diet: No Restrictions [...] CC: Donnie Gonzales 10-Jun-2016 ELECTROCARDIOGRAM, COMPLETE (ECG) (36760) Result: [MEASUREMENTS ANALYSIS] Date of Test: 06/10/2016 09:39:53; Heart Rate: 58; ND Interval: 208; QRS: 86; QT Interval: 480; Corrected QT Interval (QTc): 477; P Wave [place]: 45; QRS Wave [place]: 11; T Wave [place]: 23; Blood Pressure: 112/70 [ECG DIAGNOSTIC STATEMENTS] Date of Test: 06/10/2016 09:39:53; Summary: Sinus Bradycardia - Negative T-waves -May be normal - possible Anteroseptal ischemia. BORDERLINE 13-Apr-2016 Operative Report Result: Comments: See Note; NOTES: [facility] Medical Records Department [address] [place] [address] Operative Report MR#: [id number] Acct: [id number] Name: XAVIER TORO Rep #: [id number] : 1950 65 From: Gm Brush MD PCP: Edita Cabral MD Status: [facility] DATE OF SERVICE: 04/13/2016 DATE OF [...] curettings. Gm Brush MD T: [facility] JOB: [id number] 04/13/16 1838 <Electronically signed by Gm Brush MD> Date Gm Brush MD Cosigner Signature (If Indicated): Date CC: Edita Young; Gm Brush MD Date Dictated: 04/13/16 1031 Date Transcribed: 04/13/161030 Sap [employer]ico Architect: Signed 13-Apr-2016 Discharge Instruction Result: Comments: See Note; NOTES: [facility] Medical Records Department [address] [place] [address] Instructions for Home/Discharge Instructions 04/13/16 1003 MR#: [id number] Acct: [id number] Name: ELIZABETH TORO Rep #: [id number] : 1950 65 From: Gm Brush MD [...] mg PO DAILY 04/10/16 Hydrocodone Bitart/Apap 5-325 [[place] 5MG-325MG] 1 tablet PO Q4H PRN PRN #10 tablet 04/13/16 The followi ng prescriptions were given: Hydrocodone Bitart/Apap 5-325 [[place] 5MG-325MG] 1 tablet PO Q4H PRN PRN #10 tablet PRN Reason: Mod-Severe Pain () Please Follow Up With: Gm Brush When: 2-3 jason bowers 04/13/16 1004 <Electronically signed by Gm Brush MD> Date Gm Brush MD CC: Edita Cabral MD 22-Mar-2016 Emergency Department Summary Result: Comments: See Note; NOTES: [facility] Medical Records Department [address] [place] [address] Emergency Department Summary MR#: [id number] Acct: [id number] Name: ELIZABETH TORO Rep #: [id number] : 1950 65 From: Nando Fuller MD [...] C: Edita Brush MD T: NTS JOB: [id number] 03/22/16 0247 <Electronically signed by Nando Fuller MD&a mp;#62; Date Nando Fuller MD Cosigner Signature (If Indicated): Date CC: Edita Cabral MD; Otilia Brush MD Date Dictated: 03/21/1650 Date Transcribed: 03/21/1650 Sap [employer]ico Architect: Signed 21-Mar-2016 Discharge Instruction Result: Comments: See Note; NOTES: [facility] Medical Records Department [address] [place] [address] Discharge Instruction 03/21/168 MR#: [id number] Acct: [id number] Name: ELIZABETH TORO Rep #: [id number] : 1950 65 From: Nando Fuller MD [...] ems, contact your doctor. Call [facility] ([phone]) or report to the closest Emergency Room. Call 911 if necessary. 03/21/16 0049 <Electronically signed by Nando Fuller MD&#6 2; Date Nando Fuller MD Cosigner Signature (If Indicated): Date CC: Edita Cabral MD 20-Mar-2016 Transvaginal Non- Result: Comments: See Note; NOTES: [facility] Services [address] [place] [address] Verdana 4d Transvaginal Non- MR#: [id number] Acct: [id number] Name: ELIZABETH DIAZ Rep #: [id number] : 1950 F 65 From: Jose Fu PCP: Edita Cabral MD Status: [facility] ER Study: Transvaginal Non- Date of Exam: 03/20/16 Exam# [id number] Ordering Dr: Oz Fuller MD STUDY: ULTRASOUND [...] DO at 0:42 EDT , Service support [phone], Fax CC: Edita Cabral MD; Nando Fuller MD S[employer]ico Architect: Signed 25-Feb-2016 Esophagus Only Result: Comments: See Note; NOTES: [facility] [address] [place] [address] Verdana 4d Esophagus Only MR#: [id number] Acct: [id number] Name: XAVIER TORO Rep #: [id number] : 1950 F 65 From: Anibal Lan MD PCP: Edita Cabral MD Status: REG CLI Study: Esophagus Only Date of Exam: 02/25/16 Exam# [id number] Ordering Dr: Donnie Gonzales STUDY: X-RAY - [...] Anibal Lan MD at 10:35 EDT Tel [phone], Service support [phone], Fax RAD/Esophagus Only IMPRESSION: Normal plain film x-ray examination (barium swallow) of the esophagus. Electronically Signed: Anibal Lan MD at 10: 35 EDT Tel [phone], Service support [phone], CC: Edita Cabral MD; Donnie Gonzales Sap Fico Architect: Signed 25-Feb-2016 Esophagus Only Result: Comments: See Note; NOTES: [facility] [address] [place] [address] Verdana 4d Esophagus Only MR#: [id number] Acct: [id number] Name: XAVIER TORO Rep #: [id number] : 1950 F 65 From: Anibal Lan MD PCP: Edita Cabral MD Status: REG CLI Study: Esophagus Only Date of Exam: 02/25/16 Exam# [id number] Ordering Dr: Donnie Gonzales ADDENDUM by Ainbal Lan MD on 03/31/16 at 0747 ADDENDUM This is an addendum report for PQRS purposes. 19 images were obtained. Electronically Signed: Anibal Lan MD at 7:47 EDT Tel [phone], Service support [phone], 03/31/16 0747 Date cc: Edita Cabral MD; [...] Anibal Lan MD at 10:35 EDT Tel [phone], Service support [phone], RAD/Esophagus Only IMPRESSION: Normal plain film x-ray examination (barium swallow) of the esophagus. Electronically Signed: Anibal Lan MD at 10:35 EDT Tel [phone], Service support [phone], CC: Edita Cabral MD; Donnie Gonzales Sap Fico Architect: Signed 10-Dec-2015 12 Lead Electrocardiogram Result: Comments: See Note; NOTES: [facility] Cardiovascular Services [address] [place] [address] 12 Lead EKG 12/08/15 1551 MR#: [id number] Acct: [id number] Name: ELIZABETH DASILVA Rep #: [id number] : 1950 65 From: Francisco Muller MD [...] Confirmed by FRANCISCO MULLER MD ([id number]), scientific editor ZUNILDA KLEIN ([id number]) on 12/10/2015 9:33:10 AM Referred By: ROMEL Confirmed By:FRANCISCO MULLER MD 12/10/15 0933 Date ___ Francisco Muller MD CC: Edita Cabral MD Date Dictated: 12/08/15 155 Date Transcribed: 12/08/151550 [employer] Architect: Signed 10-Dec-2015 Emergency Department Summary Result: Comments: See Note; NOTES: [facility] Medical Records Department [address] [place] [address] [address] Emergency Department Summary MR#: [id number] Acct: [id number] Name: ELIZABETH TORO Rep #: [id number] : 1950 65 From: Sisi Severino MD [...] C: Edita Cabral MD T: NTS JOB: [id number] 12/10/15 0232 <Electronically deepti d by Sisi Severino MD> Date Sisi Severino MD Cosigner Signature (If Indicated): Date C C: Edita Cabral MD Date Dictated: 12/08/151705 Date Transcribed: 12/08/151705 Sap Fico Architect: Signed 08-Dec-2015 Discharge Instruction Result: Comments: See Note; NOTES: [facility] Medical Records Department [address] [place] [address] Discharge Instruction 12/08/15 1659 MR#: [id number] Acct: [id number] Name: ELIZABETH TORO Rep #: [id number] : 1950 65 From: Sisi Severino MD [...] unexp ected problems, contact your doctor. Call [facility] ([phone]) or report to the closest Emergency Room. Call 911 if necessary. 12/08/15 1701 <Electronically signed by Sisi young MD> Date Sisi Severino MD Cosigner Signature (If Indicated): Date CC: Edita Cabral MD 08-Dec-2015 Chest PA and Lateral Result: Comments: See Note; NOTES: [facility] Imaging Services [address] [place] [address] Verdana 4d Chest PA and Lateral MR#: [id number] Acct: [id number] Name: ELIZABETH TORO Rep #: [id number] : 1950 F 65 From: Malaika Diana MD PCP: Edita Cabral MD Status: REG ER Study: Chest PA and Lateral Date of Exam: 12/08/15 Exam# [id number] Ordering Dr: Sisi Severino MD STUDY: X-RAY [...] MD at 16:41 EST , Service support [phone], RAD/Chest PA and Lateral IMPRESSION: No acute disease is demonstrated. Electronic ally Signed: Malaika Diana MD at 16:41 EST , Service support [phone], CC: Edita Cabral MD; Sisi Severino MD Sap Fico Architect: Signed 16-Sep-2015 EKG (90247) Result: [MEASUREMENTS ANALYSIS] Date of Test: 09/16/2015 09:46:37; Heart Rate: 74; ND Interval: 192; QRS: 88; QT Interval: 406; Corrected QT Interval (QTc): 430; P Wave [place]: 28; QRS Wave [place]: -3; T Wave [place]: -1; Blood Pressure: 104/60 [ECG DIAGNOSTIC STATEMENTS] Date of Test: 09/16/2015 09:46:37; Summary: Sinus Rhythm Low voltage in precordial leads. - Nonspecific T-abnormality. ABNORMAL 11-Feb-2015 Kidney and Bladder Result: Comments: See Note; NOTES: [facility] Imaging Services [address] [place] [address] Ultrasound Report MR#: [id number] Acct: [id number] Name: ELIZABETH TORO Rep #: [id number] : 1950 F 64 From: Mina Cade MD PCP: Edita aCbral MD Status: REG CLI Study: Kidney and Bladder Date of Exam: 02/11/15 Exam# [id number] Ordering Dr: Edita Cabral MD STUDY: RE [...] MD at 23:11 EDT , Service support [phone], CC: Edita Cabral MD Sap Fico Architect: Signed 24-Jul-2014 PT Discharge Summary Result: Comments: See Note; NOTES: [facility] Therapy [facility] [address] [place] [address] [address] [place], [place] [address] Fax REHABILITATION SERVICES DISCHARGE SUMMARY MR#: [id number] Acct: [id number] Name: ELIZABETH TORO Rep #: [id number] : 1950 63 From: Naomi Osorio Referring [...] clinic. Naomi Osorio, PT T: NTS JOB: [id number] <Electronically signed by Faraz Osorio > 07/24/14 3420 CC: Signed 15-Jun-2014 PT Discharge Summary Result: Comments: See Note; NOTES: [facility] [address] [place] [address] [address] [place], [place] [address] Fax REHABILITATION SERVICES DISCHARGE SUMMARY MR#: [id number] Acct: [id number] Name: ELIZABETH TORO Rep #: [id number] : 1950 63 From: Naomi Osorio Referring DrJose: dEita Cabral MD Status: REG RCR Eval Date: [...] Sincerely, Naomi Osorio, PT T: NTS JOB: [id number] <Electronically signed by Naomi Osorio & amp;#62; 06/15/14 1410 CC: Signed 25-May-2014 Inital Evaluation - PT Result: Comments: See Note; NOTES: [facility] [address] [place] [address]. [address] [place], [place] [address] Fax REHABILITATION SERVICES INITIAL EVALUATION MR#: [id number] Acct: [id number] Name: ELIZABETH TORO Rep #: [id number] : 1950 63 From: Naomi Osorio Referring Dr.: Edita Cabral MD Status: REG RCR Insurance: [facility] PART A B Eval Date: PHYSICIAN [...] shoulder. She is right-handed. 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 Naomi Osorio, PT T: NTS JOB: [id number] <Electronically signed by Naomi Osorio > 4 1241 CC: Signed For Medicare only, by signing this I certify the plan of care. Physicians Signature Date 23-May-2014 Nuclear Stress Test - Chemical Result: Comments: See Note; NOTES: [facility] Imaging Services [address] [place] [address] Nuclear Medicine Report MR#: [id number] Acct: [id number] Name: ELIZABETH TORO Rep #: [id number] : 1950 F 63 From: Tano Nielsen MD PCP: Edita Cabral MD Status: REG CLI Study: Nuclear Stress Test - Chemical Date of Exam: 05/23/14 Exam# [id number] Ordering Dr: Álvaro Cabral MD EXERCISE TOLERANCE [...] LVEF of 61%. CC: Edita Cabral MD Sap Fico Architect: SHEKHAR Signed 14-May-2014 Shoulder min 2 Views Result: Comments: See Note; NOTES: [facility] Imaging Services [address] [place] [address] Radiology Report MR#: [id number] Acct: [id number] Name: ELIZABETH TORO Rep #: [id number] : 1950 F 63 From: Hardeep Dumont MD PCP: Erna Kingston DO Status: REG CLI Study: Shoulder min 2 Views Date of Exam: 05/14/14 Exam# [id number] Ordering Dr: Edita Cabral MD STUDY: X-RAY [...] Silvio Dumont MD at 12:18 EDT , Language Learning Classi ce support [phone], CC: Edita Cabral MD; Erna Kingston DO Sap Fico Architect: Signed 30-Apr-2014 CTA Chest W/WO Contrast Result: Comments: See Note; NOTES: [facility] Imaging Services [address] [place] [address] CAT Scan Report MR#: [id number] Acct: [id number] Name: ELIZABETH TORO Rep #: [id number] : 1950 F 63 From: Hardeep Calix MD PCP: Erna Kingston DO Status: REG CLI Study: CTA Chest W/WO Contrast Date of Exam: 04/30/14 Exam# [id number] Ordering Dr: Erna Kingston DO STUDY: CTA [...] at 19 :01 EDT , Service support [phone], CC: Erna Kingston DO Sap Fico Architect: Signed Family History Unknown Family Member Name [...] kg/m2 Body Surface Area Calculated 1.91 m2 74-Glz-227795:07 Pulse 73 /min Comments: Pattern: Regular Respiration [...] kg/m2 Body Surface Area Calculated 1.96 m2 79-Djh-534571:01 Temperature 98.1 f Comments: Method: Oral Pulse [...] 0.00 cm Results Date Description Value Details 2-Yhw-869525:57 CREATININE FINGERSTICK Comments: [facility] [address] [address] EGFR WB 55.0000 mL/min (Abnormal) CREATININE WB 1.1 mg/dL (Abnormal) Range: 0.55-1.02 04-Txr-986099:19 D-Dimer (42751) Comments: PATIENT NOT FASTINGPERFORMED BY: EMIL Leadformancecassidy StoutUNC Health [id number] D-Dimer 0.57 {mg/L_FEU} (Abnormal) Range: 0.00-0.49 Comments: According to the assay advertising director's published package insert, anormal (<0.50 mg/L FEU) D-dimer result in conjunction with a non-highclinical probability assessment, excludes deep vein thrombosis (D VT)and pulmonary embolism (PE) with high sensitivity. .D-dimer values increase with age and this can make VTE exclusion ofan older pop ulation difficult. To address this, the [employer], based on best available evidence [...] and an80 year old 0.80 mg/L FEU. 30-Vfn-321954:19 Troponin I (31897) Comments: PATIENT NOT FASTINGPERFORMED BY: [facility]6[address] [facility] [id number] Troponin I <0.01 ng/mL (Normal) Range: 0.00-0.04 45-Tbd-998994:19 CPK MB FRACTION (74493) Comments: PATIENT NOT FASTINGPERFORMED BY: [facility]6[address] [facility] [id number] Creatine Kinase (CK), MB 2.5 ng/mL (Normal) Range: 0.0-5.3 61-Eob-034902:19 CREATINE KINASE TOTAL (04188) Comments: PATIENT NOT FASTINGPERFORMED BY: [facility]6[address] [facility] [id number] Creatine Kinase,Total 103 U/L (Normal) Range: 24-173 :16 CBC-Complete Blood Cnt No Diff Comments: [facility] [address]swe[address] [facility] [address] [place], [place], [address] MPV 10.5 fL (Normal) Range: 6.2-12.0 PLT [...] Range: 4.4-11.0 :16 Microalb:Creat Ratio,Random UR Comments: [facility] [address] [facility] [address] [place], [place], [address] MALB:CREAT Test not performed {mg/g_CRE} (Normal) MICROALBUMIN,UR < 5.0 mg/L (Normal) UR CREAT < 13.00 mg/dL (Normal) :16 PTHIN 51.5 pg/mL (Normal) Comments: [facility] [address] [place], [id number] Range: 18.4-80.1 :16 Renal Profile Comments: [facility] [address] [place], [id number] CO2 28.0 mmol/L (Normal) Range: 21.0-32.0 CL [...] Comments: Please note revised GLUCOSE reference range iirdtzrbs35/02/2018. 29-Trr-65645:16 Vitamin D,25 Hydroxy Comments: [facility] [address] [place], [address] Vitamin D 25-OH 69.4 ng/mL (Normal) Range: 29.95-100.01 Comments: Vitamin D 25(OH) Status Range Deficiency <20 ng/mL (50nmol/L) Insuffciency 20 - 30 ng/mL (50 - 75 nmol/L) Sufficiency 30 - 100 ng/mL (75 - 250 nmol/L) Toxicity >100 ng/mL (>250 nmol/L) :04 HgA1C , Office (16369) HgA1C , Office 5.5 % (Normal) Range: 4.6 - 7.1 :23 CALCIFEDIOL (94566) Comments: PATIENT WAS FASTINGPERFORMED BY: [facility]6[address] [facility] [id number] Vitamin D, 25-Hydroxy 43.2 ng/mL (Normal) Range: 30.0-100.0 Comments: Vitamin D deficiency has been defined by the [place] of[place]icine and an Endocrine Society practice guideline as alevel of serum 25-OH vitamin D less than 20 ng/mL (1,2).The Endocrine Society went on to further define vitamin Dinsufficiency as a level between 21 and 29 ng/mL (2).1. IOM ([place] of Medicine). 2010. Dietary reference intakes for calcium and D. [place]: The National Academies Press.2. Azael MF, Leslee NC, Hillary PHILLIPS, et al. Evaluation, treatment, and prevention of vitamin D deficiency: an Endocrine Society clinical practice guideline. JCEM. 2010; 96(7):1911-30. :23 CBC, Platelets & Auto Diff Comments: PATIENT WAS FASTINGPERFORMED BY: [facility] CenterPtppko3924 [facility] [id number] ([id number]) Immature Grans (Abs) 0.0 {x10E3/uL} (Normal) Range: [...] 3.77-5.28 WBC 7.1 {x10E3/uL} (Normal) Range: 3.4-10.8 58-Neh-55425:23 Metabolic Panel, Comprehensive Comments: PATIENT WAS FASTINGPERFORMED BY: [facility] CenterWwltds6896 [facility] [id number] (88404) ALT (SGPT) 15 [iU]/L (Normal) Range: 0-32 [...] Glucose, Serum 82 mg/dL (Normal) Range: 65-99 80-Bjk-30721:23 MICROALBUMIN: CREATININE RATIO Comments: PATIENT WAS FASTINGPERFORMED BY: Need Fixed Green[facility]otsNov[facility] [id number] (60649) AND (77199) Alb/Creat Ratio <5.6 {mg/g_creat} (Normal) Range: 0.0-30.0 Albumin, Urine <3.0 ug/mL (Normal) Creatinine, Urine 53.5 mg/dL (Normal) 55-Hxj-690444:31 Metabolic Panel, Basic Comments: PATIENT NOT FASTINGPERFORMED BY: VyattaNovant [facility] [id number] (13734) Calcium, Serum 9.9 mg/dL (Normal) Range: 8.7-10.3 [...] (Normal) Range: 65-99 :55 HgA1C , Office (25292) Comments: 5.5 HgA1C , Office 5.5 % (Normal) Range: 4.6 - 7.1 9-Not-354231:22 VITAMIN B12 AND FOLATES Comments: today; PATIENT NOT FASTINGPERFORMED BY: GranData MonkBI-SAM TechnologiesNovant Health [facility] [id number] (27396) Folate (Folic Acid), Serum >20.0 ng/mL (Normal) Comments: A serum folate concentration of less than 3.1 ng/mL isconsidered to represent clinical deficiency. Vitamin B12 655 pg/mL (Normal) Range: 232-1245 Comments: Please note reference interval change :58 CALCIFEDIOL (67993) Comments: PATIENT NOT FASTINGPERFORMED BY: [employer] Bwkuvs39[address] [employer] [place] [id number] Vitamin D, 25-Hydroxy 25.2 ng/mL (Abnormal) Range: 30.0-100.0 Comments: Vitamin D deficiency has been defined by the [place] of[place]icine and an Endocrine Society practice guideline as alevel of serum 25-OH vitamin D less than 20 ng/mL (1,2).The Endocrine Society went on to further define vitamin Dinsufficiency as a level between 21 and 29 ng/mL (2).1. IOM ([place] of Medicine). 2010. Dietary reference intakes for calcium and D. [place]: The National Academies Press.2. Azael MF, Leslee NC, Hillary PHILLIPS, et al. Evaluation, treatment, and prevention of vitamin D deficiency: an Endocrine Society clinical practice guideline. JCEM. 2010; 96(7):1911-30. 82-Hhx-022138:58 TSH (THYROID STIMULATING Comments: PATIENT NOT FASTINGPERFORMED BY: [employer] [employer] [facility] Hrnqga[address] [facility] [place] [id number] HORMONE) (54602) TSH 2.410 {uIU/mL} (Normal) Range: 0.450-4.500 :58 CBC WITH MANUAL DIFF (29688) Comments: PATIENT NOT FASTINGPERFORMED BY: CB [facility] Ztboqt3504 [address] [facility] [place] [id number] Immature Grans (Abs) 0.0 {x10E3/uL} (Normal) Range: [...] 3.77-5.28 WBC 7.7 {x10E3/uL} (Normal) Range: 3.4-10.8 81-Pal-268675:58 Metabolic Panel, Comprehensive Comments: PATIENT NOT FASTINGPERFORMED BY: [facility] CenterWgifym6883 [facility] [id number] (93484) ALT (SGPT) 13 [iU]/L (Normal) Range: 0-32 [...] Glucose, Serum 90 mg/dL (Normal) Range: 65-99 6-Qvt-901208:07 Bedside Glucose Comments: [facility] [address] [place] [address] BEDSIDE GLU 100 mg/dL (Normal) Range: 70-110 Comments: MANAGEMENT OF PATIENT CARE PER NURSING PROTOCOL 27-Iap-891430:14 D-Dimer Quantitative (DVT/PE) Comments: Order Date: 08/30/17Order Info: [id number] - [facility]ERWBet[facility] Dbgwxptzxg5297 [facility] [place], [place], [address] D-DIMER QUANT 0.35 {FEU/ug/m} (Normal) Range: 0.27-0.49 Comments: NORMAL D-Dimer level (<0.50) indicates no DVT or PE. 57-Hlg-763429:44 Blood Glucose , Office (58971) Blood Glucose , 129 (Normal) Office :2 Request Problem Final report Comments: PATIENT NOT FASTINGPERFORMED BY: VQiao.comCorp Irzefu8326 VouchrUNC Health [id number] Information: MOUTH SRC:MO 1 (Normal) Comments: Inappropriate source for anaerobic culture. A routine aerobic culturewas initiated. Contact the Microbiology Lab for further information. :2 Test Code Change SPRCS (Normal) Comments: PATIENT NOT FASTINGPERFORMED BY: [employer] [facility] Bettymovil [facility] [id number] 1 Comments: Please note that the Microbiology test code was changed to reflectthe specimen source or transport received. :21 Upper Respiratory Culture Comments: PATIENT NOT FASTINGPERFORMED BY: [facility]6370 [facility] [id number] Result 1 RRF (Normal) Comments: Routine respiratory duyen Upper Respiratory Culture Final report (Normal) 26-Yqe-636031:59 Metabolic Panel, Comprehensive Comments: Jul 2017; PATIENT NOT FASTINGPERFORMED BY: [facility]6370 [facility] [id number] (83865) ALT (SGPT) 16 [iU]/L (Normal) Range: 0-32 [...] Glucose, Serum 80 mg/dL (Normal) Range: 65-99 93-Yza-027172:59 MAGNESIUM (21227) Comments: today; PATIENT NOT FASTINGPERFORMED BY: [facility] Webaym2188 [facility] [id number] Magnesium, Serum 2.2 mg/dL (Normal) Range: 1.6-2.3 :04 Blood Glucose , Office (87184) Blood Glucose , Office 111 (Normal) :04 HgA1C , Office (96902) HgA1C , Office 5.5 % (Normal) Range: 4.6 - 7.1 :03 CBC W/Diff, Automated Comments: [facility] [address] [place], [place], [address] ; another doc Absolute Lymph 2.35 {X10_3/ul} [...] (Normal) Range: 4.4-11.0 :03 Protein+Creatinine Ratio,Urine Comments: [facility] Afkrcnpnwr[address] [place], [address] PROT:CRE RATIO 403 {mg/g_CRE} (Abnormal) Range: 0-200 PROTEIN,UR.RAN. < 6.0 mg/dL (Normal) UR CREAT 13.90 mg/dL (Normal) :03 PTH,INTACT Comments: [facility] [address] [facility] [address] [place], [address] PTH,Intact 34 pg/mL (Normal) Range: 14-72 :03 Renal Profile Comments: [facility] [address] [place], [address] CO2 26.0 mmol/L (Normal) Range: 21.0-32.0 CL [...] report for address and phone number VITD [address]30[address] 48.5 pg/mL (Normal) Range: 19.9-79.3 Comments: Performed at: [address] [id number] Director: Navdeep Medley MD, Phone: [phone] 23-Nla-964523:06 Metabolic Panel, Comprehensive Comments: PATIENT NOT FASTINGPERFORMED BY: [employer] Xxqxbb4663 AddFleetNovant Health [facility] [id number] (64577) ALT (SGPT) 11 [iU]/L (Normal) Range: 0-32 [...] Glucose, Serum 78 mg/dL (Normal) Range: 65-99 51-Uol-715488:06 CBC, Platelets & Auto Diff Comments: PATIENT NOT FASTINGPERFORMED BY: [employer] Gqjrif3064 [address] [facility] [id number] (17173) Immature Grans (Abs) 0.0 {x10E3/uL} (Normal) Range: [...] 3.77-5.28 WBC 9.3 {x10E3/uL} (Normal) Range: 3.4-10.8 21-Prc-056863:06 TSH (37875) Comments: PATIENT NOT FASTINGPERFORMED BY: [facility] Wlzqvi2589 Lacho [facility] [id number] TSH 3.080 {uIU/mL} (Normal) Range: 0.450-4.500 33-Jxk-061780:56 HgA1C , Office (06285) HgA1C , Office 5.5 % (Normal) Range: 4.6 - 7.1 99-Nxm-802251:56 Blood Glucose , Office (29306) Blood Glucose , Office 81 (Normal) 31-Dec-20168:09 LIPID PANEL (80291) Comments: PATIENT WAS FASTINGPERFORMED BY: [employer]6370 [facility] [id number] LDL/HDL Ratio 2.0 {ratio_units} (Normal) Range: 0.0-3.2 [...] PANEL, COMPREHENSIVE Comments: PATIENT WAS FASTINGPERFORMED BY: [employer]6370 [facility] [id number] (36191) ALT (SGPT) 15 [iU]/L (Normal) Range: 0-32 [...] Glucose, Serum 104 mg/dL (Abnormal) Range: 65-99 78-Ozz-44157:04 METABOLIC PANEL, COMPREHENSIVE Comments: fax to Dr Henry; PATIENT WAS FASTINGPERFORMED BY: [facility] Ovmaza1475 [facility] [id number] (20527) ALT (SGPT) 16 [iU]/L (Normal) Range: 0-32 [...] CREATININE RATIO Comments: PATIENT WAS FASTINGPERFORMED BY: [facility]attaNovant [facility] [id number] (39405) AND (90985) Microalb/Creat Ratio <6.3 {mg/g_creat} (Normal) Range: 0.0-30.0 Microalbumin, Urine <3.0 ug/mL (Normal) Creatinine, Urine 48.0 mg/dL (Normal) :04 HGB A1C (14036) Comments: PATIENT WAS FASTINGPERFORMED BY: Miraculins70 AddFleetNovant Health [facility] [id number] Hemoglobin A1c 5.7 % (Abnormal) Range: 4.8-5.6 Comments: . Pre-diabetes: 5.7 - 6.4 Diabetes: >6.4 Glycemic control for adults with diabetes: <7.0 :04 CALCIFEDIOL (05686) Comments: PATIENT WAS FASTINGPERFORMED BY: Miraculins70 VouchrUNC Health [id number] Vitamin D, 25-Hydroxy 24.2 ng/mL (Abnormal) Range: 30.0-100.0 Comments: Vitamin D deficiency has been defined by the [place] of[place]icine and an Endocrine Society practice guideline as alevel of serum 25-OH vitamin D less than 20 ng/mL (1,2).The Endocrine Society went on to further define vitamin Dinsufficiency as a level between 21 and 29 ng/mL (2).1. IOM ([place] of Medicine). 2010. Dietary reference intakes for calcium and D. [place]: The National Academies Press.2. Azael MF, Leslee NC, Hillary PHILLIPS, et al. Evaluation, treatment, and prevention of vitamin D deficiency: an Endocrine Society clinical practice guideline. JCEM. 2010; 96(3):9871-30. :04 TSH (THYROID STIMULATING Comments: PATIENT WAS FASTINGPERFORMED BY: [employer] [facility]otsNov[facility] [id number] HORMONE) (36287) TSH 2.710 {uIU/mL} (Normal) Range: 0.450-4.500 :04 LIPID PANEL (22079) Comments: PATIENT WAS FASTINGPERFORMED BY: [employer] Bettymovil Monk [facility] [id number] LDL/HDL Ratio 1.7 {ratio_units} (Normal) Range: 0.0-3.2 [...] AUT DIFF Comments: PATIENT WAS FASTINGPERFORMED BY: [employer] Rxukxi8726 [facility] [id number] (33989) Immature Grans (Abs) 0.0 {x10E3/uL} (Normal) Range: [...] up testing of positive sera with both ND-3 and MPO- ANCA enzyme immunoassays. As many as 5% serumsamp les are positive only by EIA. Ref. AM J Clin Wxaaxk2701;111:507-513. CYTOPLASMIC Ab <1:20 {titer} (Normal) :28 Anti-dsDNA Ab Comments: [facility] (refer to report for specific site)refer to report for address and phone number dsDNA AB <1 {IU/mL} (Normal) Range: 0-9 Comments: Negative <5 Equivocal 5 - 9 Positive >9Performed at: [facility] [employer] [id number] D irector: Junior Valera PhD, Phone: [phone] :28 Complement C3 Comments: Is Patient Fasting? [facility] (refer to report for specific site)refer to report for address and phone number COMP C3 127 mg/dL (Normal) Range: 82-167 Comments: Performed at: [employer] Memorandom[address] [id number] Director: Junior Valera PhD, Phone: [phone] :28 Complement C4 Comments: Is Patient Fasting? [...] scan will follow via computer,mail, or manager technical support delivery. LEOPOLDO RESULT,S Comment: (Normal) Comments: Presence of monoclonal protein is unclear at this time. Suggest repeat in 3 to 6 months if clinically indicated. A/G RATIO 0.9 (Normal) Range: 0.7-1.7 GLOBULIN, TOTAL 3.8 g/dL (Normal) Range: 2.2-3.9 M-SPIKE (Normal) Comments: Not Observed GAMMA GLOBULIN 1.4 g/dL (Normal) Range: 0.4-1.8 BETA GLOBULIN 1.3 g/dL (Normal) Range: 0.7-1.3 NIUZD-8-GHDK 0.9 g/dL (Normal) Range: 0.4-1.0 VHDHT-6-XYCA 0.2 g/dL (Normal) Range: 0.0-0.4 ALBUMIN 3.4 g/dL (Normal) Range: 2.9-4.4 IMMUNOGL M 44 mg/dL (Normal) Range: 26-217 IMMUNO A 614 mg/dL (Abnormal) Range: 87-352 IMMUNO G 1353 mg/dL (Normal) Range: 700-1600 PROTEIN,TOTAL 7.2 g/dL (Normal) Range: 6.0-8.5 :28 Protein+Creatinine Ratio,Urine Comments: [facility] [address] [place], [address] PROT:CRE RATIO 128 {mg/g_CRE} (Normal) Range: 0-200 PROTEIN,UR.RAN. 6.5 mg/dL (Normal) UR CREAT 50.60 mg/dL (Normal) :46 RENAL FUNCTION PANEL (83904) Comments: PATIENT NOT FASTINGPERFORMED BY: RoommateFit6370 [facility] [id number] Phosphorus, Serum 4.2 mg/dL (Normal) Range: 2.5-4.5 :46 PT (PROTHROMBIN TIME) (68209) Comments: PATIENT NOT FASTINGPERFORMED BY: [employer] LabCoZlioDdfydf6778 [facility] [id number] Prothrombin Time 10.9 {sec} (Normal) Range: 9.1-12.0 INR 1.1 (Normal) Range: 0.8-1.2 Comments: Reference interval is for non-anticoagulated patients. . Suggested INR therapeutic range for Vitamin K anta gonist therapy: Standard Dose (moderate intensity therapeutic range): 2.0 - 3.0 Higher intensity therapeutic range 2.5 - 3.5 :46 METABOLIC PANEL, COMPREHENSIVE Comments: PATIENT NOT FASTINGPERFORMED BY: [employer] Pvrlrn9424 [facility] [id number] (78643) ALT (SGPT) 24 [iU]/L (Normal) Range: 0-32 [...] Glucose, Serum 109 mg/dL (Abnormal) Range: 65-99 22-Iqf-498000:46 CBC, PLATELETS & AUT DIFF Comments: PATIENT NOT FASTINGPERFORMED BY: [facility] Phspdw6970 [facility] [id number] Information: [id number] (82386) Immature Grans (Abs) 0.0 {x10E3/uL} (Normal) Range: [...] (Normal) Range: 3.4-10.8 :23 HgA1C , Office (06642) HgA1C , Office 5.4 % (Normal) Range: 4.6 - 7.1 :16 CBC-Complete Blood Cnt No Diff Comments: [facility] [address] [place], [address] MPV 8.8 fL (Normal) Range: [...] 4.4-11.0 :16 Serum Creatinine AND GFR Comments: [facility] [address]perew[address] [facility] [address] [place], [place], [id number] Estimated CRCL 27.75 ml/min (Normal) EST GFR - AA 37 mL/min (Abnormal) Comments: GFR Calc EST GFR 30 mL/min (Abnormal) Comments: Non- GFR Calc CREAT,SERUM 1.77 mg/dL (Abnormal) Range: 0.55-1.20 Comments: The validity of the calculated GFR AND GFRAA in patients over70 years has not been determined. Clinical correlation isessential. 62-Kbu-351740:15 Bedside Glucose Comments: [facility] LaboratoryPoint of Uudb[address] [place], [place] [address] BEDSIDE GLU 128 mg/dL (Abnormal) Range: 70-110 Comments: Policy and Physicians Orders followedMANAGEMENT OF PATIENT CARE PER NURSING PROTOCOL HYSTERECTOMY SPECIMEN See Note (Normal) Comments: [facility] [address] [place], [place], [id number] :39 Comments: Patient: ELIZABETH TORO : 1950 (65/F) Acct Num: [id number] Phys: Gonsalo PROCTOR,Gm Unit Num: [id number] Loc: MS1 TR957-1 Specimen: [id number] Received: 06/22/161336 Spec Ty pe: HYSTERECT TISSUES TISSUES: COMMENT Please make reference to previous specimen ([id number]) endometrial biopsy with diagnosis of consistent with atrophic endometrium and ([id number]) e ndometrium andpolyp, excision with diagnosis of [...] measures 1.2 x 0.7 x 0.6 cm. Side Trimmer sections are submitted inten cassettes as follows: [...] tube and ovary. / Sridevi 06/22/16 TC:1 CPT:86202 HEADER OPERATION: Lap robotic hysterectomy, BSO PRE-OP [...] Signed Sivakumar Mallory 06/23/16 <signature on file> 31-Qjk-04761:31 Bedside Glucose Comments: [facility] LaboratoryPoint of [address]ydg[address] [place] [address] BEDSIDE GLU 89 mg/dL (Normal) Range: 70-110 Comments: Physician Notified VBRBMANAGEMENT OF PATIENT CARE PER NURSING PROTOCOL 78-Rjz-865888:31 CBC-Complete Blood Cnt No Diff Comments: [facility] [address] [place], [address] MPV 10.1 fL (Normal) Range: [...] Range: 4.4-11.0 :31 Comprehensive Metabolic Profil Comments: [facility] [address] [place], [address] GAP 8 (Normal) Range: 5-15 [...] (Normal) Range: 70-110 :31 Hemoglobin A1c Comments: [facility] [address] [place], [place], [address] HGB A1C 5.6 % (Normal) Range: 4.2-6.3 :31 Partial Thromboplast Time Comments: [facility] [address] [place], [place], [address] PTT 27.7 s (Normal) Range: 24.1-36.2 87-Zag-334877:31 Prothrombin Time w/INR Comments: [facility] [address] [place], [place], [address] INR 1.1 (Normal) PROTIME 13.4 s (Normal) Range: 11.7-14.9 89-Ias-767090:31 Thyroid Stim Hormone (TSH) Comments: [facility] [address] [place], [place], [address] TSH 2.46 {uIU/mL} (Normal) Range: 0.358-3.74 :31 Type AND Screen Comments: Surgery Date: 06/22/16Date of Last Transfusion (if within last 3 months) NHx of Preganancy in last 3 Months NoEver experience any problems with transfusion(s)? NHx of Transfusion in last 3 Months N Reason for Type AND Screen/Red Cells: SURGERYTime: 0600SURGICAL PROCEDURE: HYSTERJ[facility]. [facility] [address]vxab[address] [place], [place], [address] Antibody Screen NEGATIVE (Normal) BLOOD TYPE GEL A NEGATIVE (Normal) 77-Zze-957973:28 Comprehensive Metabolic Profil Comments: Order Date: 06/10/16Order Date: 06/10/16[facility] [address] [place], [address] GAP 5 (Normal) Range: 5-15 CO2 28.0 [...] 7-18 GLU 79 mg/dL (Normal) Range: 70-110 59-Uww-953011:58 CBC W/Diff, Automated Comments: [facility] [address] [place], [address] Absolute Lymph 2.98 {X10_3/ul} (Normal) [...] 4.2-5.4 WBC 8.7 K/mm3 (Normal) Range: 4.4-11.0 75-Qln-644405:58 Comprehensive Metabolic Profil Comments: Is Patient Taking Vitamins or Folic Acid Supplements? [facility] [address] [place], [address] GAP 8 (Normal) Range: 5-15 CO2 [...] 7-18 GLU 95 mg/dL (Normal) Range: 70-110 14-Nrq-205153:58 Erythrocyte Sed Rate Comments: [facility] [address] [facility] [address] [place], [place], [address] SED RATE 25 mm/h (Normal) Range: 0-30 39-Mvx-013771:58 Folates, (Folic Acid) Comments: Is Patient Taking Vitamins or Folic Acid Supplements? [facility] [address] [place], [place], [address] FOLATES 9.60 ng/mL (Normal) Range: 3.1-17.5 68-Gtp-116998:58 Thyroid Stim Hormone (TSH) Comments: Is Patient Taking Vitamins or Folic Acid Supplements? [facility] [address] [place], [place], [address] TSH 2.58 {uIU/mL} (Normal) Range: 0.358-3.74 55-Xez-615207:58 Vitamin B12 543 pg/mL (Normal) Comments: [facility] [address] [place], [place], [address] Range: 211-911 31-Aoh-046653:07 Urinalysis, Office (15184) UA - LEUKOCYTE ESTERASE Trace (Normal) UA - NITRITE Negative (Normal) URINE UROBILINGN SHARIFA TIMED Normal mg/dL (Normal) UA - PROTEIN Negative mg/dL (Normal) UA - PH 6.5 (Normal) UA - BLOOD Hemolyzed Trace (Normal) UA - SPECIFIC GRAVITY 1.005 (Normal) UA - KETONES Negative mg/dL (Normal) UA - BILIRUBIN Negative (Normal) UA - GLUCOSE Negative (Normal) 62-Wuk-548363:04 URINE VERÓNICA CULTURE-SHARIFA COL Comments: PATIENT NOT FASTINGPERFORMED BY: [facility] Tmpdia9451 [facility] [id number] Information: SRC:URC [id number] COUNT (31838) Antimicrobial MIHEAD (Normal) Comments: S = Susceptible; [...] (Abnormal) Urine Final report Culture,Comprehensive (Abnormal) EGD ([facility]) See Note (Normal) Comments: [facility] [address] [place], [place], [address]:04 Comments: Patient: ELIZABETH TORO : 1950 (65/F) Acct Num: [id number] Phys: JonnysaraJunior Unit Num: [id number] Loc: LABSPEC Specimen: [id number] Received: 04/21/161637 Spec Type: EGD BIOPSY TISSUES [...] in one cassette. / SJ:stormy 04/22/16 TC:3 CPT:83136 HEADER OPERATION: EGD with biopsy PRE-OP DIAGNOSIS: Dysphagia TISSUE SUBMITTED: Esophageal biopsy, R/O EE MICROSCOPIC DESCRIP TION Slides are reviewed. MICROSCOPIC DIAGNOSIS Esophageal biopsy: Fragments of squamous epithelium with mild chronic inflammation. See comment. SJ:stormy 04/23/16 Signed Sivakumartrey Mallory 04/23/16 <signature on file> CERVICAL See Note (Normal) Comments: [facility] [address] [place], [address] 22579:15 Comments: Patient: ELIZABETH TORO : 1950 (65/F) Acct Num: [id number] Phys: Gonsalo PROCTOR,[facility] Unit Num: [id number] Loc: [facility] Specimen: [id number] Received: 04/13/16 1336 Spec Type: CER V [...] one cassette. / AM: 04/13/16 TC:5 CPT: 09563 x 2 HEADER OPERATION: Hysteroscopy, diagnostic, D [...] <signature on file> :04 Bedside Glucose Comments: [facility] LaboratoryPoint of Axbe[address] [place] [address] BEDSIDE GLU 98 mg/dL (Normal) Range: 70-110 Comments: No Action RequiredMANAGEMENT OF PATIENT CARE PER NURSING PROTOCOL :08 CBC-Complete Blood Cnt No Diff Comments: [facility] [address] [place], [address] MPV 9.4 fL (Normal) Range: [...] Range: 4.4-11.0 :08 Comprehensive Metabolic Profil Comments: [facility] [address] [place], [place], [address] GAP 8 (Normal) Range: 5-15 CO2 24.0 [...] Range: 70-110 :08 Partial Thromboplast Time Comments: [facility] [address] [place], [address] PTT 29.8 s (Normal) Range: 24.1-36.2 :08 Prothrombin Time w/INR Comments: [facility] [address] [place], [place], [address] INR 1.1 (Normal) PROTIME 13.6 s (Normal) Range: 11.7-14.9 :08 Type AND Screen Comments: Surgery Date: 04/13/16Date of Last Transfusion (if within last 3 months) NHx of Preganancy in last 3 Months NoEver experience any problems with transfusion(s)? NHx of Transfusion in last 3 Months N Reason for Type AND Screen/Red Cells: SURGERYTime: 1015SURGICAL PROCEDURE: [facility] [address]wjlpc[address] [place], [place], [address] Antibody Screen NEGATIVE (Normal) BLOOD TYPE GEL A NEGATIVE (Normal) ENDOMETRIAL See Note (Normal) Comments: [facility] [address] [place], [address] 6:00 BX/CURETTINGS Comments: Patient: ELIZABETH TORO : 1950 (65/F) Acct Num: [id number] Phys: Gonsalo PROCTOR,[facility] Unit Num: [id number] Loc: LABSPEC Specimen: [id number] Received: 03/26/16 - 1600 Spec Type: ENDOM [...] in one cassette. / AM:stormy 03/27/16 TC:4 CPT:94916 HEADER OPERATION: Endometrial biopsy PRE-OP DIAGNOSIS: N95.0 TISSUE SUBMITTED: EMB MICROSCOPIC DESCRIPTION Slides are r eviewed. MICROSCOPIC DIAGNOSIS Endometrial biopsy: Scant strips of benign endometrial epithelium, consistent with atrophic endometrium. Fragments of benign endocervical epithelium and mucous. SJ:stormy 03/31/16 Signed Sivakumar Mallory 03/31/16 <signature on file> 23-Fzb-517536:00 PAP I-G w/ Reflex to HR Comments: CYTOLOGY INFORMATION:- CLINICAL INFORMATION: POSTMENOPAUSAL- DATE LMP/MENOPAUSE: MENOPAUSE- COLLECTION VIAL: Thin Prep Vial- SPONGE DIVER SOURCE: CERVICAL/ENDOCERVICAL- COLLECTION TECHNIQUE: BRUSH/ SPATULASpeci HPV men Comment: [id number] Comment: No. of containers..01 CYTYC Thin Prep VialLabCorp (refer to report for specific site)refer to report for address and phone number HPV RFLX Comment (Normal) Comments: The HPV DNA reflex criteria were not met with this specimenresult therefore, no HPV testing was performed.Performed at: [address]Zenon [address] [id number] Director: Annamaria Menezes MD, Phone: [phone] PAPSMR Comment (Normal) Comments: The Pap smear [...] system. PERFORM Comment (Normal) Comments: Adeline Singleton, [employer] (ASCP) ADEQ Comment (Normal) Comments: Satisfactory for evaluation. DIAGN Comment (Normal) Comments: NEGATIVE FOR INTRAEPITHELIAL LESION AND MALIGNANCY. 42-Xmi-67164:20 Urinalysis, Complete Comments: How was Urine Obtained? ETHOLOGIST TO SPECIFYJ.W. [facility] Bguauxiucz[address]13 [facility] [place], [place], [address] MUCUS, URINE 0 SEEN {/hpf} (Normal) BACTERIA [...] (Normal) CLARITY Clear (Normal) COLOR Straw (Normal) 59-Dhj-285683:50 Basic Metabolic Profile (BMP) Comments: [facility] [address] [place], [place], [address] GAP 7 (Normal) Range: 5-15 CO2 26.0 [...] <126 mg/dLsuggests IMPAIRED HOMEOSTASIS per A.D.A. criteria. 56-Kya-749839:50 CBC W/Diff, Automated Comments: [facility] [address] [place], [place], [address] Absolute Lymph 3.53 {X10_3/ul} (Normal) Range: 0.83-4.51 [...] K/mm3 (Normal) Range: 4.4-11.0 :02 Rapid Flu (85614 x 2) Influenza A Ag negative (Normal) 5-Wan-575038:31 SJOGREN ANTIBOIDIES Comments: PATIENT NOT FASTINGPERFORMED BY: LabCoCare [facility] CenterTsftes0523 [facility] [id number] Information: [id number] (ANTI-SS-A/ANTI-SS-B) (21587) Sjogren's Anti-SS-B <0.2 {AI} (Normal) Range: 0.0-0.9 Sjogren's Anti-SS-A <0.2 {AI} (Normal) Range: 0.0-0.9 :28 Rapid Strep Test, Office (49051) Rapid Strep Test, Office Negative (Normal) 8-Hlj-126608:37 Throat Culture (11974) Comments: PATIENT NOT FASTINGPERFORMED BY: [facility]6370 [facility] [id number] Information: SRC:THRT [id number] Result 1 BETAGB (Abnormal) Comments: Beta hemolytic [...] 2011) Upper Respiratory Culture Final report (Abnormal) 1-Jyj-127046:45 Basic Metabolic Profile (BMP) Comments: 'TROP' Serial specimen #1, #2, #3, or #4: 1W[facility] [address]xrvymn[address] [place], [place], [address] GAP 9 (Normal) Range: 5-15 CO2 23.0 [...] Range: 70-110 :45 CBC W/Diff, Automated Comments: [facility] [address] [place], [place], [address] Absolute Lymph 2.03 {X10_3/ul} (Normal) Range: 0.83-4.51 [...] 4.2-5.4 WBC 6.0 K/mm3 (Normal) Range: 4.4-11.0 9-Mej-557449:45 Thyroid Stim Hormone (TSH) Comments: 'TROP' Serial specimen #1, #2, #3, or #4: [address] [place] [address] [address]285 [place], [address] TSH 1.50 {uIU/mL} (Normal) Range: 0.358-3.74 :45 Troponin-I Comments: 'TROP' Serial specimen #1, #2, #3, or #4: [address] [place] [address] [address]lhtsp4348 [place], [address] TROPONIN-I < 0.02 ng/mL (Normal) Comments: TROPONIN-I EXPECTED VALUES <0.05 NEGATIVE 0.06 - 0.59 AT RISK OF VA > OR = 0.60 SUGGEST VA :53 Pap IG (Image Comments: Source.............Cervical;EndocervicalNo. of containers..01 CYTYC Thin Prep VialPATIENT NOT FASTINGPERFORMED BY: =G [place] [address] [facility] CentervickyConemaugh Min[facility] [id number] BY: WB L Guided) Jennifer Jordanton120 [facility] [id number] Note: PAPSMR (Normal) Comments: The Pap smear [...] of partially obscuring exudate are present.Z00.00Adeline Singleton [employer] (ASCP) :01 HgA1C , Office (68236) HgA1C , Office 5.9 % (Normal) Range: 4.6 - 7.1 :00 Blood Glucose , Office (63522) Blood Glucose , Office 126 (Normal) 88-Zwi-56970:53 Thin Prep Pap Comments: Source.............Cervical;EndocervicalNo. of containers..01 CYTYC Thin Prep VialPATIENT NOT FASTINGPERFORMED BY: =G [facility] Jitiopbnmj554 [facility] [id number] BY: WB L (62300) [facility] Hospitalwalter JordanQttgtuaphk[address] [id number] Information: [id number] Age Gdln ACOG Testing AGE4 (Normal) Comments: <21 or >65 or no age provided :34 METABOLIC PANEL, Comments: PATIENT WAS FASTINGPERFORMED BY: [facility] Quxcca6007 [facility] [id number] Information: [id number] COMPREHENSIVE (46172) ALT (SGPT) 18 [iU]/L (Normal) Range: 0-32 [...] Glucose, Serum 83 mg/dL (Normal) Range: 65-99 56-Kou-36080:34 CALCIFIDIOL (47865) VIT D 25 Comments: PATIENT WAS FASTINGPERFORMED BY: LabKalamaz[facility] Hospital6370 [facility] [id number] Vitamin D, 25-Hydroxy 59.6 ng/mL (Normal) Range: 30.0-100.0 Comments: Vitamin D deficiency has been defined by the [place] of[place]icine and an Endocrine Society practice guideline as alevel of serum 25-OH vitamin D less than 20 ng/mL (1,2).The Endocrine Society went on to further define vitamin Dinsufficiency as a level between 21 and 29 ng/mL (2).1. IOM ([place] of Medicine). 2010. Dietary reference intakes for calcium and D. [place]: The National AcademAgistics Press.2. Leslee Chapin, Hillary PHILLIPS, et al. Evaluation, treatment, and prevention of vitamin D deficiency: an Endocrine Society clinical practice guideline. JCEM. 2010; 96(7):1911-30. :37 HgA1C , Office (59159) HgA1C , Office 6.1 % (Normal) Range: 4.6 - 7.1 :37 Blood Glucose , Office (00058) Blood Glucose , Office 107 (Normal) :27 TSH (THYROID STIMULATING Comments: PATIENT WAS FASTINGPERFORMED BY: [employer] [facility] Jxozqj6377 [address] RoadDublin [place] [id number] HORMONE) (44527) TSH 2.480 {uIU/mL} (Normal) Range: 0.450-4.500 : CALCIFEDIOL (90120) Comments: PATIENT WAS FASTINGPERFORMED BY: CB [facility] Xyjoww8837 [address] RoadDublin [place] [id number] Vitamin D, 25-Hydroxy 16.7 ng/mL (Abnormal) Range: 30.0-100.0 Comments: Vitamin D deficiency has been defined by the [place] ofMedicine and an Endocrine Society practice guideline as alevel of serum 25-OH vitamin D less than 20 ng/mL (1,2).The Endocrine Society went on to further define vitamin Dinsufficiency as a level between 21 and 29 ng/mL (2).1. IOM ([place] of Medicine). 2010. Dietary reference intakes for calcium and D. [place]: The National Academies Press.2. Leslee Chapin, Hillary PHILLIPS, et al. Evaluation, treatment, and prevention of vitamin D deficiency: an Endocrine Society clinical practice guideline. JCEM. 2010; 96(7):1911-30. :27 LIPID PANEL (97794) Comments: PATIENT WAS FASTINGPERFORMED BY: CB [facility] Jgyzvb1162 [address]k RoadDublin [place] [id number] LDL/HDL Ratio 1.2 {ratio_units} (Normal) Range: 0.0-3.2 [...] Cholesterol, Total 138 mg/dL (Normal) Range: 100-199 40-Izo-08687:27 METABOLIC PANEL, COMPREHENSIVE Comments: PATIENT WAS FASTINGPERFORMED BY: LabCoCare [facility] CenterSbptsr2546 [facility] [id number] (44436) ALT (SGPT) 19 [iU]/L (Normal) Range: 0-32 [...] & MANUAL Comments: PATIENT WAS FASTINGPERFORMED BY: [facility] Coolant SystemsCare One at Rar[facility] Medical CenterVzdwsk3707 [facility] [id number] Information: [id number], [id number] DIFF (33128) Immature Grans (Abs) 0.0 {x10E3/uL} (Normal) Range: [...] 3.77-5.28 WBC 7.0 {x10E3/uL} (Normal) Range: 3.4-10.8 72-Foe-115148:31 CREATININE CLEARANCE Comments: PATIENT NOT FASTINGPERFORMED BY: [facility] Coolant SystemsCare One at Raritan Bay Medical CenterEovpnx6288 [facility] [id number] Information: [id number] START @9AM FINISH 01/28/15@9 AM (07637) Creatinine Clearance 53 mL/min (Abnormal) Range: 88-128 [...] Hour Urine Comments: PATIENT NOT FASTINGPERFORMED BY: MemorandomFitzgibbon HospitalIrhtzy5196 [facility] [id number] (83807) Prot,24hr calculated 357.5 {mg/24_hr} (Abnormal) Range: 30.0-150.0 Protein,Total,Urine 13.0 mg/dL (Normal) Range: 0.0-15.0 :28 HgA1C , Office (30018) HgA1C , Office 5.9 % (Normal) Range: 4.6 - 7.1 :28 Blood Glucose , Office (54742) Blood Glucose , Office 136 (Normal) :53 TSH (23230) Comments: PATIENT WAS FASTINGPERFORMED BY: [facility]6370 [facility] [id number] TSH 4.370 {uIU/mL} (Normal) Range: 0.450-4.500 :53 MICROALBUMIN: CREATININE RATIO Comments: PATIENT WAS FASTINGPERFORMED BY: [facility]6370 [facility] [id number] (18416) AND (28620) Microalb/Creat Ratio 5.0 {mg/g_creat} (Normal) Range: 0.0-30.0 Microalbumin, Urine 4.5 ug/mL (Normal) Range: 0.0-17.0 Creatinine, Urine 90.5 mg/dL (Normal) Range: 15.0-278.0 :53 METABOLIC PANEL, COMPREHENSIVE Comments: PATIENT WAS FASTINGPERFORMED BY: [employer] Ulggqt3928 [facility] [id number] (11729) ALT (SGPT) 20 [iU]/L (Normal) Range: 0-32 [...] mg/dL (Abnormal) Range: 65-99 :53 LIPID PANEL (15519) Comments: PATIENT WAS FASTINGPERFORMED BY: [employer]6370 [facility] [id number] LDL/HDL Ratio 1.4 {ratio_units} (Normal) Range: 0.0-3.2 [...] DIFF WBC Comments: PATIENT WAS FASTINGPERFORMED BY: LabCoCare [facility] at [facility] CenterZkqlzx4650 [facility] [id number] Information: [id number] (18692) Immature Grans (Abs) 0.0 {x10E3/uL} (Normal) Range: [...] 7.8 {x10E3/uL} (Normal) Range: 3.4-10.8 :53 CALCIFIDIOL (80098) VIT D 25 Comments: PATIENT WAS FASTINGPERFORMED BY: [employer] Wsqpwf1415 [facility] [id number] Vitamin D, 25-Hydroxy 22.5 ng/mL (Abnormal) Range: 30.0-100.0 Comments: Vitamin D deficiency has been defined by the [place] ofUniversity Hospitals Geneva Medical Centercine and an Endocrine Society practice guideline as alevel of serum 25-OH vitamin D less than 20 ng/mL (1,2).The Endocrine Society went on to further define vitamin Dinsufficiency as a level between 21 and 29 ng/mL (2).1. IOM ([place] of Medicine). 2010. Dietary reference intakes for calcium and D. [place]: The National Academies Press.2. Azael MF, Leslee LEMON, Hillary PHILLIPS, et al. Evaluation, treatment, and prevention of vitamin D deficiency: an Endocrine Society clinical practice guideline. JCEM. 2010; 96(7):1911-30. :22 HgA1C , Office (18148) HgA1C , Office 6.0 % (Normal) Range: 4.6 - 7.1 :22 Blood Glucose , Office (84288) Blood Glucose , Office 132 (Normal) :27 Blood Glucose , Office (16726) Blood Glucose , Office 114 (Normal) :27 HgA1C , Office (76899) HgA1C , Office 5.9 % (Normal) Range: 4.6 - 7.1 :00 Basic Metabolic Panel (8) Comments: PATIENT NOT FASTINGPERFORMED BY: LabCoCare [facility] CenterEgecft4102 [facility] [id number] BY: [address] [id number] Calcium, Serum 9.8 mg/dL (Normal) Range: 8.6-10.2 [...] 287 {mOsmol/kg} Comments: PATIENT NOT FASTINGPERFORMED BY: [employer]70 [facility] [id number] BY: [employer] [id number] 00 (Normal) Range: 280-301 : Osmolality, Urine 259 {mOsmol/kg} Comments: PATIENT NOT FASTINGPERFORMED BY: Mir[employer]ulins70 [facility] [id number] BY: [employer] [id number] 00 (Normal) Comments: 24 hr : 300 - 900 Random: 50 - 1400 After 12hr fluid restriction: >850 : Sodium, Urine 11 mmol/L (Normal) Comments: PATIENT NOT FASTINGPERFORMED BY: Miraculins70 [facility] [id number] BY: [employer] [id number] 00 5-Qvu-558261:06 Metabolic Panel, Basic Comments: PATIENT NOT FASTINGPERFORMED BY: Miraculins70 [facility] [id number] Information: [id number] (72082) Calcium, Serum 9.9 mg/dL (Normal) Range: 8.6-10.2 [...] Glucose, Serum 108 mg/dL (Abnormal) Range: 65-99 12-Whr-803265:34 CBCD Comments: pt has apt with db [...] <0.05 NEGATIVE0.06 - 0.59 AT RISK OF VA> OR = 0.60 SUGGEST VA 57-Hhu-568976:34 TSH 2.32 {uIU/mL} (Normal) Comments: 'TROP' Serial specimen #1, #2, #3, or #4: 1 Range: 0.358-3.74 01-May-20140:00 Microscopic Examination Comments: PATIENT WAS FASTINGPERFORMED BY: [facility] Rqymwt4305 [address]bl[address] [place] [id number] Bacteria Few (Normal) Mucus Threads Present (Normal) Epithelial Cells (non renal) 0-10 {/hpf} (Normal) Range: 0 - 10 RBC 0-2 {/hpf} (Normal) Range: 0 - 2 WBC 11-30 {/hpf} (Abnormal) Range: 0 - 5 72-Zpo-384764:15 TSH (93440) Comments: PATIENT WAS FASTINGPERFORMED BY: [facility] Bhveti6669 [address] RoadDublin [place] [id number] TSH 3.310 {uIU/mL} (Normal) Range: 0.450-4.500 97-Vsj-815337:15 CALCIFIDIOL (00317) VIT D 25 Comments: PATIENT WAS FASTINGPERFORMED BY: CB [facility] Utdjrg6178 [address] [facility] [place] [id number] Vitamin D, 25-Hydroxy 35.7 ng/mL (Normal) Range: 30.0-100.0 Comments: Vitamin D deficiency has been defined by the [place] ofUniversity Hospitals Geneva Medical Centercine and an Endocrine Society practice guideline as alevel of serum 25-OH vitamin D less than 20 ng/mL (1,2).The Endocrine Society went on to further define vitamin Dinsufficiency as a level between 21 and 29 ng/mL (2).1. IOM ([place] of Medicine). 2010. Dietary reference intakes for calcium and D. [place]: The National Academies Press.2. Azael MF, Leslee [place], Hillary PHILLIPS, et al. Evaluation, treatment, and prevention of vitamin D deficiency: an Endocrine Society clinical practice guideline. JCEM. 2010; 96(7):1911-30. 13-Auw-446248:15 URINALYSIS, W/ MICRO (87942) Comments: PATIENT WAS FASTINGPERFORMED BY: LabCoCare [facility] CenterYbirvt4042 [facility] [id number] Microscopic Examination See below: (Normal) Nitrite, Urine Positive (Abnormal) Bilirubin Negative (Normal) Urobilinogen,Semi-Qn 0.2 mg/dL (Normal) Range: 0.0-1.9 Ketones Negative (Normal) Occult Blood Negative (Normal) Glucose Negative (Normal) Protein Negative (Normal) Appearance Clear (Normal) WBC Esterase 2+ (Abnormal) pH 6.5 (Normal) Range: 5.0-7.5 Urine-Color Yellow (Normal) Specific [place] 1.015 (Normal) Range: 1.005-1.030 83-Svl-253302:15 METABOLIC PANEL, COMPREHENSIVE Comments: PATIENT WAS FASTINGPERFORMED BY: [facility]Co[facility] CenterQksfxn7105 [facility] [id number] (65933) ALT (SGPT) 19 [iU]/L (Normal) Range: 0-32 [...] Glucose, Serum 118 mg/dL (Abnormal) Range: 65-99 43-Gof-849214:15 LIPID PANEL (20409) Comments: PATIENT WAS FASTINGPERFORMED BY: [facility] Coolant SystemsCare One at Rar[facility] Bay Medical CenterFahvsn5109 [facility] [id number] LDL/HDL Ratio 1.7 {ratio_units} (Normal) Range: 0.0-3.2 LDL Cholesterol Calc 90 mg/dL (Normal) Range: 0-99 VLDL Cholesterol Hillary 33 mg/dL (Normal) Range: 5-40 HDL Cholesterol 53 mg/dL (Normal) Comments: According to ATP-III Guidelines, HDL-C >59 mg/dL is considered anegative risk factor for CHD. Triglycerides 166 mg/dL (Abnormal) Range: 0-149 Cholesterol, Total 176 mg/dL (Normal) Range: 100-199 24-Gqz-624404:15 CBC WITH MANUAL DIFF Comments: PATIENT WAS FASTINGPERFORMED BY: [facility] Vwchih9777 [facility] [id number] Information: [id number] (26741) Immature Grans (Abs) 0.0 {x10E3/uL} (Normal) Range: [...] 3.77-5.28 WBC 7.0 {x10E3/uL} (Normal) Range: 3.4-10.8 19-Xyn-424558:20 Blood Glucose , Office (05541) Blood Glucose , Office 102 (Normal) 36-Nol-061550:20 HgA1C , Office (20897) HgA1C , Office 6.0 % (Normal) Range: 4.6 - 7.1 9-Chg-790778:27 URINE VERÓNICA CULTURE-IDENTIFICATN Comments: PATIENT NOT FASTINGPERFORMED BY: [facility] CenterFccdyl3418 [facility] [id number] Information: [id number] ([id number]) Result 1 NG36 (Normal) Comments: No growth in 36 - 48 hours. Urine Culture,Comprehensive Final report (Normal) 1-Ozj-903982:03 URINALYSIS (70869) URINALYSIS neg for all (Normal) 28-Bus-30336:31 URINE VERÓNICA CULTURE-SHARIFA COL Comments: PATIENT NOT FASTINGPERFORMED BY: [facility] CenterRnznha4351 [facility] [id number] Information: SRC:UR [id number] COUNT (60144) Antimicrobial MIHEAD (Normal) Comments: S = Susceptible; [...] mL (Normal) Urine Final report Culture,Comprehensive (Normal) 08-Izu-84065:26 Urinalysis, Office (98752) UA - LEUKOCYTE ESTERASE Moderate (Normal) UA - NITRITE Negative (Normal) URINE UROBILINGN SHARIFA TIMED Normal mg/dL (Normal) UA - PROTEIN Negative mg/dL (Normal) UA - PH 5 (Abnormal) UA - BLOOD Hemolyzed Small (Normal) UA - SPECIFIC GRAVITY 1.025 (Normal) UA - KETONES Negative mg/dL (Normal) UA - BILIRUBIN Negative (Normal) UA - GLUCOSE Negative (Normal) :52 LIPID PANEL (66643) Comments: PATIENT WAS FASTINGPERFORMED BY: [employer]70 [facility] [id number] Information: [id number] LDL/HDL Ratio 2.1 {ratio_units} (Normal) Range: 0.0-3.2 LDL Cholesterol Calc 111 mg/dL (Abnormal) Range: 0-99 VLDL Cholesterol Hillary 31 mg/dL (Normal) Range: 5-40 HDL Cholesterol 53 mg/dL (Normal) Comments: According to ATP-III Guidelines, HDL-C >59 mg/dL is considered anegative risk factor for CHD. Triglycerides 156 mg/dL (Abnormal) Range: 0-149 Cholesterol, Total 195 mg/dL (Normal) Range: 100-199 :52 HEPATIC FUNCTION PANEL (23839) Comments: PATIENT WAS FASTINGPERFORMED BY: [facility]ulins70 [facility] [id number] ALT (SGPT) 17 [iU]/L (Normal) Range: 0-32 AST (SGOT) 23 [iU]/L (Normal) Range: 0-40 Alkaline Phosphatase, S 57 [iU]/L (Normal) Range: 39-117 Bilirubin, Direct 0.08 mg/dL (Normal) Range: 0.00-0.40 Bilirubin, Total 0.3 mg/dL (Normal) Range: 0.0-1.2 Albumin, Serum 4.3 g/dL (Normal) Range: 3.6-4.8 Protein, Total, Serum 7.2 g/dL (Normal) Range: 6.0-8.5 :52 CALCIFEDIOL (54987) Comments: PATIENT WAS FASTINGPERFORMED BY: [employer] Gdazrw8730 [facility] [id number] Vitamin D, 25-Hydroxy 13.8 ng/mL (Abnormal) Range: 30.0-100.0 Comments: Vitamin D deficiency has been defined by the [place] of[place]icine and an Endocrine Society practice guideline as alevel of serum 25-OH vitamin D less than 20 ng/mL (1,2).The Endocrine Society went on to further define vitamin Dinsufficiency as a level between 21 and 29 ng/mL (2).1. IOM ([place] of Medicine). 2010. Dietary reference intakes for calcium and D. [place]: The National Academies Press.2. Azael MF, Leslee NC, Hillary PHILLIPS, et al. Evaluation, treatment, and prevention of vitamin D deficiency: an Endocrine Society clinical practice guideline. JCEM. 2010; 96(7):1911-30. 44-Gsl-198732:38 Blood Glucose , Office (25580) Blood Glucose , Office 114 (Normal) 51-Epr-455167:38 HgA1C , Office (81565) HgA1C , Office 5.8 % (Normal) Range: 4.6 - 7.1 76-Jfe-210742:23 Urinalysis, Office (67504) UA - BILIRUBIN Negative (Normal) UA - BLOOD Hemolyzed Trace (Normal) UA - GLUCOSE Negative (Normal) UA - KETONES Negative mg/dL (Normal) UA - LEUKOCYTE ESTERASE Small (Normal) UA - NITRITE Negative (Normal) UA - PH 5.0 (Normal) UA - PROTEIN Negative mg/dL (Normal) UA - SPECIFIC GRAVITY 1.025 (Normal) URINE UROBILINGN SHARIFA TIMED Normal mg/dL (Normal) 25-Pwv-062585:50 Metabolic Panel, Basic Comments: PATIENT NOT FASTINGPERFORMED BY: LabCo Fratic6621 [facility] [id number] Information: [id number] (05759) Calcium, Serum 9.9 mg/dL (Normal) Range: 8.6-10.2 [...] Glucose, Serum 84 mg/dL (Normal) Range: 65-99 29-Apj-362673:39 BRAIN WITHOUT CONTRAST Radiology Report See Note [...] Sweeney M.D.July 12, 2013 at 4:19:02 PM [id number] Signed PV/PV If you are the referring physician and would like to consult with theradiologist who provided this interpretation, please contact Petrona molina M.D. at [phone]. If this radiologist is unavailable, youwillbe directed to another radiologist to assist. If you are a patient with a question regarding this report, pleasecontactyour referring physician directly. Professional Interpretation Provided By: [employer], Phone , These documents contain legally protected [...] 07/12/13 1622 Sign by: Petrona Meek MD 5-Rpe-968410:39 CRE GFRAA 45 mL/min (Abnormal) GFR 37 [...] 3000 mL (Normal) UPCT 24.0 {HOURS} (Normal) 8-Bxc-054150:39 Metabolic Panel, Basic Comments: recheck in one week; PATIENT NOT FASTINGPERFORMED BY: [facility] CenterJnlsha6019 [facility] [id number] Information: [id number] (11114) Calcium, Serum 9.7 mg/dL (Normal) Range: 8.6-10.2 [...] Glucose, Serum 109 mg/dL (Abnormal) Range: 65-99 65-Vfq-73515:50 Metabolic Panel, Basic Comments: PATIENT NOT FASTINGPERFORMED BY: [facility] CenterTpibdv3114 [facility] [id number] Information: [id number] (57809) Calcium, Serum 9.5 mg/dL (Normal) Range: 8.6-10.2 [...] (Abnormal) Range: 65-99 :29 HgA1C , Office (73686) HgA1C , Office 5.7 % (Normal) Range: 4.6 - 7.1 81-Meu-814588:14 TSH (19912) Comments: PATIENT NOT FASTINGPERFORMED BY: [facility]6370 [facility] [id number] TSH 2.850 {uIU/mL} (Normal) Range: 0.450-4.500 :14 CBC, Platelets & Auto Comments: PATIENT NOT FASTINGPERFORMED BY: [facility]6370 [facility] [id number] Information: [id number] Diff (77938) Immature Grans (Abs) 0.0 {x10E3/uL} (Normal) Range: [...] 3.77-5.28 WBC 7.5 {x10E3/uL} (Normal) Range: 4.0-10.5 39-Klf-921093:14 Metabolic Panel, Comprehensive Comments: PATIENT NOT FASTINGPERFORMED BY: [facility] Ucidtp0733 [facility] [id number] (76750) ALT (SGPT) 19 [iU]/L (Normal) Range: 0-32 [...] Glucose, Serum 105 mg/dL (Abnormal) Range: 65-99 87-Giy-399135:06 URINE VERÓNICA CULTURE-SHARIFA COL Comments: PATIENT NOT FASTINGPERFORMED BY: [facility]6370 [facility] [id number] Information: SRC:UR ADD [id number] COUNT (82578) Antimicrobial MIHEAD (Normal) Comments: S = Susceptible; [...] mL (Normal) Urine Final report Culture,Comprehensive (Normal) 58-Xie-606461:09 Urinalysis, Office (25690) UA - BILIRUBIN Negative (Normal) UA - BLOOD Hemolyzed Moderate (Normal) UA - GLUCOSE Negative (Normal) UA - KETONES Negative mg/dL (Normal) UA - LEUKOCYTE ESTERASE Small (Normal) UA - NITRITE Negative (Normal) UA - PH 6.0 (Normal) UA - PROTEIN Negative mg/dL (Normal) UA - SPECIFIC GRAVITY 1.005 (Normal) URINE UROBILINGN SHARIFA TIMED 2 mg/dL (Normal) 8-Vgp-826171:04 Renal function Panel Comments: PATIENT NOT FASTINGPERFORMED BY: [facility]6370 [facility] [id number] Information: [id number] (28440) Albumin, Serum 4.1 g/dL (Normal) Range: 3.6-4.8 [...] Glucose, Serum 110 mg/dL (Abnormal) Range: 65-99 81-Lsc-414871:22 CALCIFEDIOL (78756) Comments: PATIENT NOT FASTINGPERFORMED BY: [employer]6370 [place] [id number] Vitamin D, 25-Hydroxy 16.7 ng/mL (Abnormal) Range: 30.0-100.0 Comments: Vitamin D deficiency has been defined by the [place] ofUniversity [facility] Centercine and an Endocrine Society practice guideline as alevel of serum 25-OH vitamin D less than 20 ng/mL (1,2).The Endocrine Society went on to further define vitamin Dinsufficiency as a level between 21 and 29 ng/mL (2).1. IOM ([place] of [employer]). 2010. Dietary reference intakes for calcium and D. [place]: The National Academies Press.2. Azael MF, Leslee LEMON, Hillary PHILLIPS, et al. Evaluation, treatment, and prevention of vitamin D deficiency: an Endocrine Society clinical practice guideline. JCEM. 2010; 96(7):1911-30. 30-Mpd-773339:22 MAGNESIUM (81614) Comments: PATIENT NOT FASTINGPERFORMED BY: [employer] [facility] Kpjgrb4072 Monk RoadDublin [place] [id number] Magnesium, Serum 2.3 mg/dL (Normal) Range: 1.6-2.6 :22 T4, FREE (THYROXINE) (71047) Comments: PATIENT NOT FASTINGPERFORMED BY: [facility] Wbbvck7839 Monk RoadDublin [place] [id number] T4,Free(Direct) 1.50 ng/dL (Normal) Range: 0.82-1.77 :22 T3, FREE (TRIDOTHYRONINE) (03071) Comments: PATIENT NOT FASTINGPERFORMED BY: [facility]6370 [facility] [id number] Triiodothyronine,Free,Serum 2.6 pg/mL (Normal) Range: 2.0-4.4 :22 TSH (24374) Comments: PATIENT NOT FASTINGPERFORMED BY: [facility]6370 [facility] [id number] TSH 1.920 {uIU/mL} (Normal) Range: 0.450-4.500 :22 CBC, Platelets & Auto Comments: PATIENT NOT FASTINGPERFORMED BY: [facility]6370 [facility] [id number] Information: [id number] Diff (43688) Immature Grans (Abs) 0.0 {x10E3/uL} (Normal) Range: [...] 3.77-5.28 WBC 8.5 {x10E3/uL} (Normal) Range: 4.0-10.5 28-Lbm-797413:22 Metabolic Panel, Comprehensive Comments: PATIENT NOT FASTINGPERFORMED BY: [facility] CenterFozwnk6196 [facility] [id number] (23604) ALT (SGPT) 21 [iU]/L (Normal) Range: 0-32 [...] Glucose, Serum 97 mg/dL (Normal) Range: 65-99 7-Xtg-350525:20 METABOLIC PANEL, COMPREHENSIVE Comments: PATIENT WAS FASTINGPERFORMED BY: [employer]IL [employer] Fceywt5468 [facility] [id number] (05214) ALT (SGPT) 19 [iU]/L (Normal) Range: 0-32 [...] Glucose, Serum 102 mg/dL (Abnormal) Range: 65-99 1-Fxd-041559:20 CBC WITH MANUAL DIFF Comments: PATIENT WAS FASTINGPERFORMED BY: [facility] Cool[facility] SystemsCare One at [facility] Medical CenterEbmojz5975 [facility] [id number] Information: [id number] (19769) Immature Grans (Abs) 0.0 {x10E3/uL} (Normal) Range: [...] 3.77-5.28 WBC 7.4 {x10E3/uL} (Normal) Range: 3.4-10.8 3-Baw-570611:20 LIPID PANEL (95439) Comments: PATIENT WAS FASTINGPERFORMED BY: [facility] Kdalcy3771 [facility] [id number] LDL/HDL Ratio 2.0 {ratio_units} (Normal) Range: 0.0-3.2 LDL Cholesterol Calc 109 mg/dL (Abnormal) Range: 0-99 VLDL Cholesterol Hillary 35 mg/dL (Normal) Range: 5-40 HDL Cholesterol 54 mg/dL (Normal) Comments: According to ATP-III Guidelines, HDL-C >59 mg/dL is considered anegative risk factor for CHD. Triglycerides 175 mg/dL (Abnormal) Range: 0-149 Cholesterol, Total 198 mg/dL (Normal) Range: 100-199 0-Ttl-349503:20 TSH (00296) Comments: PATIENT WAS FASTINGPERFORMED BY: LabCoAcoma-Canonc[facility]-Laguna Service UnitXcwfrg7217 [address] [place] [id number] TSH 2.720 {uIU/mL} (Normal) Range: 0.450-4.500 07-Yvk-747929:22 HgA1C , Office (05177) HgA1C , Office 6.0 % (Normal) Range: 4.6 - 7.1 99-Jcm-296890:22 Blood Glucose , Office (98818) Blood Glucose , Office 249 (Normal) Comments: has eaten in last 2h 63-Bek-564814:20 CHEST, PA AND LATERAL Radiology Report See [...] Signed:Anibal Lan M.D.November 022012 at 8:14:34 AM [id number] Signed GP/GP If you are the referring physician and would like to consult with theradiologist who provided this interpretation, please contact Eliecer Bui M.D. at [phone]. If this radiologist is unavailable, youwill be directed to another radiologist to assist. If you are a patient with a question regarding this report, pleasecontactyour referring physician directly. Professional Interpretation Provided By: [employer], Phone , These documents contain legally protected [...] on 11/22/12817 Sign by: Anibal Lan MD 93-Mlz-35672:19 VERÓNICA CULTURE-OTHER (15799) Comments: PATIENT NOT FASTINGPERFORMED BY: [employer] [facility]Co[facility] CenterAvpjds4142 [facility] [id number] Information: SRC:THRT [id number] Result 1 RRF (Normal) Comments: Routine respiratory duyen Upper Respiratory Culture Final report (Normal) 96-Ptr-691286:33 Rapid Strep Test, Office (63989) Rapid Strep Test, Office Negative (Normal) 0-Apa-058274:50 Celiac Disease Comprehensive Comments: PERFORMED BY: [employer] LabCoKeradermIjnvhj8085 [facility] [id number] Immunoglobulin A, Qn, 364 mg/dL (Normal) Range: [...] Serum 4.0 mmol/L Comments: PERFORMED BY: [facility] Uaqtgb3217 [facility] [id number] 4:50 (Normal) Range: 3.5-5.2 6-Kzj-228005:30 CBCMD ANC 3.7 3/uL (Normal) Range: 2.0-7.7 [...] 4.2-5.4 WBC 7.0 {k/mm3} (Normal) Range: 4.4-11.0 6-Ncw-452321:30 CMP GAP 11 (Normal) Range: 5-15 CO2 [...] 7-18 GLU 93 mg/dL (Normal) Range: 70-110 1-Xlw-091744:30 LIPID LDL 108 mg/dL (Normal) Range: 0-130 [...] Very High > or = 500 mg/dL 6-Mey-219819:30 MIACRE MIALB 5.8 mg/L (Normal) tMICROCREAT 9.5 {mg/g_CRE} (Normal) CREU 60.7 mg/dL (Normal) 0-Thg-044036:30 TSH 0.75 {uIU/mL} (Normal) Range: 0.358-3.74 :54 HgA1C , Office (62868) HgA1C , Office 5.5 % (Normal) Range: 4.6 - 7.1 94-Gjm-57766:54 Blood Glucose , Office (58705) Blood Glucose , Office 116 (Normal) 88-Iuw-302635:26 URINE VERÓNICA CULTURE-SHARIFA COL Comments: PATIENT NOT FASTINGPERFORMED BY: [facility] Coqcfo5893 [address] [place] [id number] Information: SRC:CLAUDINE [id number] COUNT (64520) Result 1 MUG (Normal) Comments: Mixed urogenital flora50,000-100,000 colony forming units per mL Urine Final report (Normal) Culture,Comprehensive 36-Zyh-178255:46 Urinalysis, Office (17446) UA - BILIRUBIN Small (Normal) UA - BLOOD Hemolyzed Small (Normal) UA - GLUCOSE Negative (Normal) UA - KETONES Small mg/dL (Normal) UA - LEUKOCYTE ESTERASE Moderate (Normal) UA - NITRITE Negative (Normal) UA - PH 6.0 (Normal) UA - PROTEIN Trace mg/dL (Normal) UA - SPECIFIC GRAVITY 1.025 (Normal) URINE UROBILINGN SHARIFA TIMED Normal mg/dL (Normal) 16-Cyp-889194:55 CHEST, PA AND LATERAL Radiology Report See [...] radiologist regarding this report, please call our 20B4euoflet line @ Dictated on 1518 by Isiah Lan MDranscribed on 11/23/11 1611 by ITS IMPORTSign by Anibal Lan MD on 11/23/11 1611 Sign by: Edyta PROCTORAnibal :51 Urinalysis, Office (75322) UA - BILIRUBIN Negative (Normal) UA - BLOOD Hemolyzed Small (Normal) UA - GLUCOSE Negative (Normal) UA - KETONES Negative mg/dL (Normal) UA - LEUKOCYTE ESTERASE Large (Normal) UA - NITRITE Negative (Normal) UA - PH 7.0 (Normal) UA - PROTEIN Negative mg/dL (Normal) UA - SPECIFIC GRAVITY 1.020 (Normal) URINE UROBILINGN SHARIFA TIMED 2 mg/dL (Normal) :51 HgA1C , Office (69684) HgA1C , Office 6.2 % (Normal) Range: 4.6 - 7.1 :50 Blood Glucose , Office (61957) Blood Glucose , Office 119 (Normal) :55 Urinalysis, Office (89728) UA - BILIRUBIN Negative (Normal) UA - [...] Ultrasound evaluation of the right upper [facility] with real-time ultrasonography and static grayscale [...] Muscle) 13 {Units} (Normal) Comments: PERFORMED BY: [employer] [place] [id number] :58 Antibody Range: 0-19 Comments: Negative 0 - 19 Weak positive 20 - 30 Moderate to strong positive >30 . Actin Antibodies are found in 52-85% of patients with autoimmune hepatitis or chronic active hepatitis and in 22% of patients with primary biliary cirrhosis. :58 Antinuclear Antibodies Direct Comments: PERFORMED BY: [employer] [place] [id number] GAYATRI Direct Negative (Normal) :5 Ceruloplasmin 31.6 mg/dL (Normal) Comments: PERFORMED BY: [employer] [place] [id number] Range: 16.0-45.0 :5 Ferritin, Serum 440 ng/mL (Abnormal) Comments: PERFORMED BY: [employer] [place] [id number] Range: 13-150 :58 Hepatitis Panel (4) Comments: PERFORMED BY: [facility]6370 [facility] [id number] Hep C Virus Ab 0.1 {s/co_ratio} (Normal) Range: 0.0-0.9 Comments: Negative: < 0.8 Indeterminate 0.8 - 0.9 Positive: > 0.9 . In order to reduce the incidence of a false positive result, the [facility] recommends that all s/co ratios between 1.0 and 10.9 be confirmed with additional RIBA or PCR testing. Hep B Core Ab, IgM Negative (Normal) HBsAg Screen Negative (Normal) Hep A Ab, IgM Negative (Normal) 41-Iiy-65229:58 Iron and TIBC Comments: PERFORMED BY: [facility]6370 [facility] [id number] Iron Saturation 37 % (Normal) Range: 15-55 Iron, Serum 96 ug/dL (Normal) Range: 35-155 UIBC 163 ug/dL (Normal) Range: 150-375 Iron Bind.Cap.(TIBC) 259 ug/dL (Normal) Range: 250-450 :58 Platelet Count on Citrated Comments: PERFORMED BY: [facility]6370 [facility] [id number] Bld Plt Count, Citrated Bld 216 {X10E3/uL} Range: 140-415 (Normal) 11-Jun-2011 Written Authorization WAR (Normal) Comments: PERFORMED BY: [facility]6370 [facility] [id number] 9:58 Comments: Written Authorization Received.Authorization received from [facility] [id number] by Elina Swain :30 HgA1C , Office (47402) HgA1C , Office 6.7 % (Normal) Range: 4.6 - 7.1 :30 Blood Glucose , Office (43592) Blood Glucose , Office 159 (Normal) :15 METABOLIC PANEL, COMPREHENSIVE Comments: PATIENT WAS FASTINGPERFORMED BY: [facility]6370 [facility] [id number] (33730) ALT (SGPT) 51 [iU]/L (Abnormal) Range: 0-40 [...] mg/dL (Abnormal) Range: 65-99 03-Jun-20119:15 LIPID PANEL (16674) Comments: PATIENT WAS FASTINGPERFORMED BY: [facility] Inztpp1879 [facility] [id number] LDL/HDL Ratio 1.8 {ratio_units} (Normal) Range: 0.0-3.2 [...] MANUAL DIFF Comments: PATIENT WAS FASTINGPERFORMED BY: [facility] CenterFovgnp0503 [facility] [id number] Information: [id number] (11464) Immature Grans (Abs) 0.0 {x10E3/uL} (Normal) Range: [...] Hepatic Function Panel (7) Comments: PERFORMED BY: [facility] SystemsCare One at R[facility] CenterZnfzbz9593 [facility] [id number] ALT (SGPT) 63 [iU]/L (Abnormal) Range: 0-40 Alkaline Phosphatase, S 63 [iU]/L (Normal) Range: 25-165 AST (SGOT) 53 [iU]/L (Abnormal) Range: 0-40 Bilirubin, Direct 0.13 mg/dL (Normal) Range: 0.00-0.40 Bilirubin, Total 0.4 mg/dL (Normal) Range: 0.0-1.2 Albumin, Serum 4.5 g/dL (Normal) Range: 3.6-4.8 Protein, Total, Serum 7.8 g/dL (Normal) Range: 6.0-8.5 :26 Hepatitis Panel (4) Comments: PERFORMED BY: [facility] SystemsCare One at [facility] CenterWnwycr4151 [facility] [id number] Hep C Virus Ab <0.1 {s/co_ratio} (Normal) [...] (Normal) Hep A Ab, IgM Negative (Normal) 2-Xlk-065268:04 LIVER D BILI 0.11 mg/dL (Normal) Range: 0.00-0.30 T BILI 0.30 mg/dL (Normal) Range: 0.00-1.00 ALK P 57 U/L (Normal) Range: 50-136 ALT 68 U/L (Normal) Range: 12-78 ALB 4.0 g/dL (Normal) Range: 3.4-5.0 AST 53 U/L (Abnormal) Range: 15-37 T PROT 8.0 g/dL (Normal) Range: 6.4-8.2 :59 HgA1C , Office (92310) HgA1C , Office 6.6 % (Normal) Range: 4.6 - 7.1 :59 Blood Glucose , Office (79314) Blood Glucose , Office 124 (Normal) :17 HgA1C , Office (71183) HgA1C , Office 6.4 % (Normal) Range: 4.6 - 7.1 :17 Blood Glucose , Office (50143) Blood Glucose , Office 141 (Normal) :17 Hemoglobin Glyclated (HGB A1C) Comments: PATIENT WAS FASTINGPERFORMED BY: [facility] SystemsAcoma-Canoncito-Laguna Service UnitQntddh3157 [facility] [id number] (42312) Hemoglobin A1c 6.0 % (Abnormal) Range: 4.8-5.6 Comments: Increased risk for diabetes: 5.7 - 6.4 Diabetes: >6.4 Glycemic control for adults with diabetes: <7.0 :17 MICROALBUMIN: CREATININE RATIO Comments: PATIENT WAS FASTINGPERFORMED BY: [facility] SystemsAcoma-Canoncito-Laguna Service UnitMiuokc6609 [facility] [id number] (87040) AND (30601) Microalb/Creat Ratio 2.9 {mg/g_creat} (Normal) Range: 0.0-30.0 Creatinine, Urine 49.0 mg/dL (Normal) Range: 15.0-278.0 Microalbumin, Urine 1.4 ug/mL (Normal) Range: 0.0-17.0 :17 METABOLIC PANEL, COMPREHENSIVE Comments: PATIENT WAS FASTINGPERFORMED BY: [employer] Gcxjtv2079 [facility] [id number] (80669) Alkaline Phosphatase, S 61 [iU]/L (Normal) Range: [...] Glucose, Serum 116 mg/dL (Abnormal) Range: 65-99 48-Xhq-760374:17 LIPID PANEL (27090) Comments: PATIENT WAS FASTINGPERFORMED BY: [facility]Co[facility] CenterQwtpzx3544 [facility] [id number] LDL/HDL Ratio 2.2 {ratio_units} (Normal) Range: 0.0-3.2 HDL Cholesterol 50 mg/dL (Normal) Comments: According to ATP-III Guidelines, HDL-C >59 mg/dL is considered anegative risk factor for CHD. LDL Cholesterol Calc 109 mg/dL (Abnormal) Range: 0-99 VLDL Cholesterol Hillary 56 mg/dL (Abnormal) Range: 5-40 Cholesterol, Total 215 mg/dL (Abnormal) Range: 100-199 Triglycerides 282 mg/dL (Abnormal) Range: 0-149 52-Vfa-391478:17 CBC WITH MANUAL DIFF (65084) Comments: PATIENT WAS FASTINGPERFORMED BY: [facility]efish USACare One at [facility] CenterQbgsgc9917 [facility] [id number] Immature Grans (Abs) 0.0 {x10E3/uL} (Normal) Range: [...] (Normal) Range: 4.0-10.5 :57 Folic Acid Serum (33622) Comments: PATIENT NOT FASTINGPERFORMED BY: [facility] SystemsCare One at [facility] Medical CenterRpkbwx5130 [facility] [id number] Folate (Folic Acid), Serum 12.6 ng/mL (Normal) Comments: Indeterminate: 2.2 - 3.0Deficient: <2.2 :57 Vitamin B-12 (cyanocobalamin) Comments: PATIENT NOT FASTINGPERFORMED BY: [place] 7137270 [facility] [id number] (41626) Vitamin B12 551 pg/mL (Normal) Range: 211-946 :57 CBC with manual diff Comments: PATIENT NOT FASTINGPERFORMED BY: [facility]6370 [facility] [id number] Information: [id number] (61383) Baso (Absolute) 0.1 {x10E3/uL} (Normal) Range: 0.0-0.2 [...] 3.80-5.10 WBC 9.4 {x10E3/uL} (Normal) Range: 4.0-10.5 16-Bil-633130:57 Metabolic Panel, Comprehensive Comments: PATIENT NOT FASTINGPERFORMED BY: [facility]CoCare [facility] at [facility] CenterDrjjan5055 [facility] [id number] (57277) ALT (SGPT) 18 [iU]/L (Normal) Range: 0-40 [...] mg/dL (Abnormal) Range: 65-99 :57 DRUG ASSAY-LITHIUM (43854) Comments: PATIENT NOT FASTINGPERFORMED BY: [employer] Fzkwog5627 [facility] [id number] [place] (Eskalith), Serum 1.0 mmol/L (Normal) Range: 0.6-1.4 Comments: Detection Limit = 0.1<0.1 indicates None Detected :57 T4, FREE (THYROXINE) (46205) Comments: PATIENT NOT FASTINGPERFORMED BY: [employer] Tytcrr2645 [facility] [id number] T4,Free(Direct) 1.17 ng/dL (Normal) Range: 0.82-1.77 :57 T3, FREE (TRIDOTHYRONINE) (42971) Comments: PATIENT NOT FASTINGPERFORMED BY: [employer] Xqrbpv2953 [facility] [id number] Triiodothyronine,Free,Serum 2.1 pg/mL (Normal) Range: 2.0-4.4 :57 TSH (80798) Comments: PATIENT NOT FASTINGPERFORMED BY: [employer] Hxparm8580 [facility] [id number] TSH 4.080 {uIU/mL} (Normal) Range: 0.450-4.500 05-Fkj-997604:43 HgA1C , Office (11253) HgA1C , Office 5.3 % (Normal) Range: 4.6 - 7.1 :43 Blood Glucose , Office (94367) Blood Glucose , Office 125 (Normal) :4 [...] 136-145 GLU 84 mg/dL (Normal) Range: 70-110 01-Nxz-147403:42 LI 0.60 mmol/L (Normal) Comments: Therapeutic Range: 0.60 - 1.20 42-Ats-615838:58 Thin prep Pap Comments: Source.............Cervical;EndocervicalNo. of containers..01 CYTYC Thin Prep VialPATIENT NOT FASTINGPERFORMED BY: [facility] [address] [id number] Information: [id number] (63979) Note: PAPSMR (Normal) Comments: The Pap smear [...] atrophy.V 72.31 ; Routine gynecological examinationRaxander Gonzalez [employer] (ASCP) 09-Lrf-155710:00 TSH ([id number]) Comments: PATIENT NOT FASTINGPERFORMED BY: CB [facility] [id number] [facility] [id number] TSH 3.440 {uIU/mL} (Normal) Range: 0.450-4.500 58-Yll-098049:00 CBC (Auto) ([id number]) Comments: PATIENT NOT FASTINGPERFORMED BY: [facility] [id number] Information: [id number] Platelets 258 {x10E3/uL} (Normal) Range: 140-415 RDW 13.6 % (Normal) Range: 11.7-15.0 Hematocrit 43.5 % (Normal) Range: 34.0-44.0 MCH 31.6 pg (Normal) Range: 27.0-34.0 MCHC 33.6 g/dL (Normal) Range: 32.0-36.0 MCV 94 fL (Normal) Range: 80-98 Hemoglobin 14.6 g/dL (Normal) Range: 11.5-15.0 RBC 4.61 {x10E6/uL} (Normal) Range: 3.80-5.10 WBC 8.6 {x10E3/uL} (Normal) Range: 4.0-10.5 15-Okh-454007:00 Metabolic Panel, Basic Comments: PATIENT NOT FASTINGPERFORMED BY: [facility] [id number] ([id number]) Calcium, Serum 9.1 mg/dL (Normal) Range: 8.6-10.2 [...] Glucose, Serum 111 mg/dL (Abnormal) Range: 65-99 94-Lfn-964570:00 DRUG ASSAY-LITHIUM (16432) Comments: all these labs standing order prn; PATIENT NOT FASTINGPERFORMED BY: [facility] CenterMfhxrx8645 [facility] [id number] [place] (Eskalith), Serum 0.9 mmol/L (Normal) Range: 0.6-1.4 Comments: Detection Limit = 0.1<0.1 indicates None Detected 96-Ayt-83484:16 METABOLIC PANEL, COMPREHENSIVE Comments: PATIENT NOT FASTINGPERFORMED BY: [facility] CenterEwpdak3951 [facility] [id number] ([id number]) A/G Ratio 1.3 (Normal) Range: 1.1-2.5 Alkaline [...] Glucose, Serum 207 mg/dL (Abnormal) Range: 65-99 60-Sop-68179:16 CBC WITH MANUAL DIFF Comments: PATIENT NOT FASTINGPERFORMED BY: [facility] CenterLqznev3471 [facility] [id number] Information: [id number] ([id number]) Baso (Absolute) 0.1 {x10E3/uL} (Normal) Range: 0.0-0.2 [...] CREATININE RATIO Comments: PATIENT NOT FASTINGPERFORMED BY: [facility]6[address] [facility] [id number] ([id number]) AND (74922) Microalb/Creat Ratio 6.2 {mg/g_creat} (Normal) Range: 0.0-30.0 Microalbumin, Urine 2.5 ug/mL (Normal) Range: 0.0-17.0 Creatinine, Urine 40.1 mg/dL (Normal) Range: 15.0-278.0 :38 HgA1C , Office (19291) HgA1C , Office 6.6 % (Normal) Range: 4.6 - 7.1 :38 Blood Glucose , Office (86245) Blood Glucose , Office 214 (Normal) 65-Zcw-340981:05 URINE VERÓNICA CULTURE-IDENTIFICATN Comments: PATIENT NOT FASTINGPERFORMED BY: [facility]6[address] [facility] [id number] Information: [id number] ([id number]) Antimicrobial MIHEAD (Normal) Comments: S = Susceptible; [...] mL (Normal) Urine Final report (Normal) Culture,Comprehensive 16-Tlu-497947:23 CHEST, PA AND LATERAL (MT) Radiology Report See Note (Normal) Comments: Exam Number: [id number] CLINICAL:58-year-old female with cough, pain and shortness [...] otherwise unremarkable. Reported By: SISI MART Dr. 59-Gbl-81733:23 B.pertussisB.parapertussis PCR Comments: PERFORMED BY: [place] [address] [place] [address] [id number] Bordetella parapertussis DNA Negative (Normal) Comments: .This test was developed and its performance characteristics determinedby [employer] [facility]. It has not been cleared or approved by theU.S. Food and Drug Administration. The FDA has determined that s uchclearance or approval is not necessary. This test is used for clinicalpurposes. It should not be regarded as investigational or research. Bordetella pertussis DNA Negative (Normal) 03-Ogc-288111:50 HgA1C , Office (70448) HgA1C , Office 5.5 % (Normal) Range: 4.6 - 7.1 :50 Blood Glucose , Office (10160) Blood Glucose , Office 90 (Normal) :33 HgA1C , Office (85181) HgA1C , Office 5.6 % (Normal) Range: 4.6 - 7.1 :41 HgA1C , Office (06076) HgA1C , Office 5.5 % (Normal) Range: 4.6 - 7.1 Comments: :41 Blood Glucose , Office (58300) Comments: 89 Blood Glucose , Office 89 [...] (Normal) Range: 0.34-4.82 :42 HgA1C , Office (73682) HgA1C , Office 5.4 % (Normal) Range: 4.6 - 7.1 :42 Blood Glucose , Office (83622) Blood Glucose , Office 103 (Normal) :20 CBC HCT 44.0 % (Normal) Range: 37-47 HGB 15.2 g/dL (Normal) Range: 12.0-16.0 MCH 31.7 pg (Normal) Range: 27.0-32.0 MCHC 34.6 g/dL (Normal) Range: 32-36 MCV 91.5 fL (Normal) Range: 81-99 PLT 306 K/mm3 (Normal) Range: 150-450 RBC 4.81 {M/mm3} (Normal) Range: 4.2-5.4 RDW 12.2 % (Normal) Range: 11.6-14.6 WBC 6.7 K/mm3 (Normal) Range: 4.4-11.0 81-Jbo-444477:20 COMP METABOLIC A/G 1.0 {RATIO} (Normal) Range: [...] T PROT 8.0 g/dL (Normal) Range: 6.4-8.2 08-Afq-988889:20 LIPID CHOL 148 mg/dL (Normal) Comments: <200 [...] mg/dL VLDL 30 mg/dL (Normal) Range: 5-40 97-Ovi-661450:20 ROUTINE UA BILIRUBIN URINE SeeNote (Normal) Comments: [...] 0.2 EU/dl (Normal) Range: 0.2 - 1.0 86-Rps-00423:06 THYROID (HP) Radiology Report See Note (Normal) Comments: Exam Number: [id number] THYROID ULTRASOUND HISTORYGoiter. There is borderline increase [...] 03, 2007. Reported By: PETRONA REGALADO M.D. 75-Met-59535:20 MAMM, UILAT DIAG DIGITAL & CAD Radiology Report See Note (Normal) Comments: Exam Number: [id number] UNILATERAL LEFT DIAGNOSTIC MAMMOGRAPHY CLINICAL STATEMENTLeft breast [...] The mammogramswere also examined with computer-aided detection software([employer] Reported By: REID KRUEGER M.D. : TSH 0.94 {uIU/mL} Range: 0.34-4.82 50 (Normal) :06 MAMM, BILAT SCRN DIGITAL & CAD Radiology Report See Note (Normal) Comments: Exam Number: [id number] MAMMOGRAM, BILATERAL SCREENING DIGITAL AND CAD HISTORYRoutine [...] mammograms werealso examined with computer-aided detection software ([employer] Reported By: PETRONA REGALADO M.D. 0-Bhu-317277:05 THYROID () Radiology Report See Note (Normal) Comments: Exam Number: [id number] THYROID ULTRASOUND HISTORYGoiter. High resolution real time [...] 6 months. Reported By: PETRONA REGALADO M.D. 88-Pdz-363782:22 HgA1C , Office (73785) HgA1C , Office 5.9 % (Normal) Range: 4.6 - 7.1 88-Twh-470722:22 Blood Glucose , Office (02510) Blood Glucose , Office 88 (Normal) Plan [...] II, controlled Stress incontinence, female : Reviewed Personal Injury Law Specialist Letter Indication: Stress incontinence, female Diabetes mellitus [...] acute Planned Observations VITAMIN B12 AND FOLATES (20034)Indication: Neuropathic pain On: :08 Request Blood Glucose , Office (61915)Indication: Diabetes mellitus type II, controlled On: 04-Yer-03973:04 Request LIPID PANEL (06476)Indication: Neuropathic pain On: 76-Yvz-52664:54 Request Blood Glucose , Office (16304)Indication: Diabetes mellitus type II, controlled On: 02-Nov-20178:55 Request D-Dimer (16912)Indication: Shortness of breath On: 26-Kcn-800527:19 Request Metabolic Panel, Comprehensive (50053)Indication: Diabetes mellitus type II, controlled On: 18-Moz-983781:19 Request Comments: Nov 2017 LIPID PANEL (44820)Indication: Diabetes mellitus type II, controlled On: 35-Law-700821:19 Request Comments: Nov 2017 URINALYSIS (18282)Indication: Diabetes mellitus type II, controlled On: 81-Mgb-614942:19 Request Comments: Nov 2017 TSH (47868)Indication: Diabetes mellitus type II, controlled On: 94-Hbw-124880:18 Request Comments: Nov 2017 CBC, Platelets & Auto Diff (72294)Indication: Diabetes mellitus type II, controlled On: 91-Wfm-458672:18 Request Comments: Nov 2017 MICROALBUMIN: CREATININE RATIO (18176) AND (07779)Indication: Diabetes mellitus type II, controlled On: 97-Lis-971079:18 Request Comments: Nov 2017 HgA1C , Office (96894)Indication: Diabetes mellitus type II, controlled On: 67-Jot-471430:44 Request Anaerobic & Aerobic Culture (30504)Indication: Mouth pain On: 9-Hek-333015:11 Request Metabolic Panel, Comprehensive (58902)Indication: Chronic kidney disease (CKD), stage I On: 23-Jkv-978355:50 Request Comments: 2 weeks Metabolic Panel, Comprehensive (35831)Indication: Diabetes mellitus type II, controlled On: 59-Mju-037637:56 Request Comments: today URINALYSIS (58350)Indication: Chronic kidney disease (CKD), stage I On: 83-Jrs-393944:52 Request Comments: Jul 2017 MICROALBUMIN: CREATININE RATIO (43937) AND (15591)Indication: Chronic kidney disease (CKD), stage I On: 48-Kci-110399:52 Request Comments: jul 2017 Lipid Panel (91094)Indication: Hypertension (Renamed from BP (high blood pressure)) On: 05-Dlv-108622:52 Request Comments: Jul 2017 TSH (82135)Indication: Leg weakness On: 52-Bjb-270247:52 Request Comments: Jul 2017 CBC, Platelets & Auto Diff (96222)Indication: Leg weakness On: 49-Egw-261481:52 Request Comments: jul 2017 METABOLIC PANEL, COMPREHENSIVE (33361)Indication: Weakness On: 17-Fud-568057:55 Request METABOLIC PANEL, COMPREHENSIVE (96027)Indication: Hypokalemia On: :43 Request Comments: STAT SED RATE ERYTHROCYTE (84660)Indication: Weakness On: 42-Bcw-796133:29 Request TSH (THYROID STIMULATING HORMONE) (62382)Indication: Unspecified abnormal involuntary movements On: 20-Cgj-565881:17 Request METABOLIC PANEL, COMPREHENSIVE (67483)Indication: Unspecified abnormal involuntary movements On: :17 Request CBC, PLATELETS & AUT DIFF (46969)Indication: Unspecified abnormal involuntary movements On: 31-Qks-147904:17 Request URINE VERÓNICA CULTURE-IDENTIFICATN (49251)Indication: Weakness On: 77-Tyv-784981:07 Request Blood Glucose , Office (03307)Indication: Unspecified abnormal involuntary movements On: 29-Pts-12119:59 Request VITAMIN B12 AND FOLATES (15236)Indication: Unspecified abnormal involuntary movements On: :57 Request SPEP (24026)Indication: Elevated serum creatinine On: 60-Alb-591082:31 Request CALCIFIDIOL (26688) VIT D 25Indication: Vitamin D deficiency (Renamed from Avitaminosis D) On: :27 Request TSH (05466)Indication: Hypothyroidism On: : Request MICROALBUMIN: CREATININE RATIO (88046) AND (92835)Indication: Diabetes mellitus type II, controlled On: : Request METABOLIC PANEL, COMPREHENSIVE (86347)Indication: Diabetes mellitus type II, controlled On: : Request LIPID PANEL (05200)Indication: Diabetes mellitus type II, controlled On: : Request CBC with auto diff (62644)Indication: Diabetes mellitus type II, controlled On: : Request CALCIFIDIOL (74745) VIT D 25Indication: Vitamin D deficiency (Renamed from Avitaminosis D) On: 85-Yfz-753547:15 Request Comments: in three months (approximately) METABOLIC PANEL, COMPREHENSIVE (27282)Indication: Diabetes mellitus type II, controlled On: 09-Mkp-922031:15 Request Comments: in three months (approximately) SODIUM URINE (53891)Indication: Hyponatremia On: 2-Gei-874574:51 Request OSMOLALITY URINE (81440)Indication: Hyponatremia On: 2-Oor-656378:50 Request OSMOLALITY BLOOD (57389)Indication: Hyponatremia On: 7-Fib-460811:50 Request ASSAY, TROPONIN, QUANTITATIVE (aka Troponin I) (44132)Indication: Chest pain On: 40-Hhi-923702:40 Request Comments: stat D-Dimer (19755)Indication: Chest pain On: 22-Hnv-398679:40 Request Comments: stat TSH (90501)Indication: Chest pain On: :40 Request CBC WITH MANUAL DIFF (77358)Indication: Chest pain On: 86-Fmz-449926:40 Request METABOLIC PANEL, COMPREHENSIVE (66417)Indication: Chest pain On: 22-Ndv-234447:40 Request URINE VERÓNICA CULTURE (SHARIFA COL COUNT) (32633)Indication: Dysuria (Renamed from Difficult or painful urination) On: 97-Cbf-745045:24 Request Metabolic Panel, Comprehensive (64240)Indication: Hypertension (Renamed from BP (high blood pressure)) On: 50-Ped-449029:56 Request Metabolic Panel, Basic (70260)Indication: Elevated LFTs On: 13-Rze-720877:16 Request 24 hour urine for Protein (49366)Indication: Elevated serum creatinine On: 54-Cnh-060247:40 Request Comments: recheck in one week CREATININE CLEARANCE (30649)Indication: Elevated serum creatinine On: 11-Mji-916020:39 Request Comments: recheck in one week Blood Glucose , Office (48762)Indication: Diabetes mellitus type II, controlled On: 01-Kvm-45174:29 Request METABOLIC PANEL, COMPREHENSIVE (06290)Indication: Hypokalemia (Renamed from Decreased potassium in the blood) On: 98-Nxd-980011:52 Request MICROALBUMIN: CREATININE RATIO (22610) AND (17155)Indication: Diabetes mellitus type II, controlled On: 40-Gkm-521808:14 Request FLURESCNT ANTIB SCRN EA (26054) celiac profileIndication: Irritable bowel syndrome (Renamed from Functional bowel disease) On: 9-Dls-337912:58 Request IMMUNOASSAY, ANALYTE (NON-INFECT) (07604) celiac profileIndication: Irritable bowel syndrome (Renamed from Functional bowel disease) On: 7-Dvx-620591:58 Request IGA/IGD/IGG/IGM-EACH (41777) celiac profileIndication: Irritable bowel syndrome (Renamed from Functional bowel disease) On: 1-Ltt-553315:58 Request Potassium Serum (95272)Indication: Hypokalemia (Renamed from Decreased potassium in the blood) On: 0-Zuh-530839:58 Request Celiac Disease Comphrehensive Profile (37562)Indication: Irritable bowel syndrome (Renamed from Functional bowel disease) On: 04-Nov-20129:56 Request METABOLIC PANEL, COMPREHENSIVE (59625)Indication: Diabetes mellitus type II, controlled On: 81-Djj-852262:32 Request LIPID PANEL (88100)Indication: Diabetes mellitus type II, controlled On: 42-Tfr-884333:32 Request CBC WITH MANUAL DIFF (94771)Indication: Diabetes mellitus type II, controlled On: 55-Vfe-288245:32 Request MICROALBUMIN: CREATININE RATIO (45898) AND (78341)Indication: Diabetes mellitus type II, controlled On: :32 Request TSH (87559)Indication: Hypothyroidism On: :32 Request TSH (68365)Indication: Hypothyroidism On: : Request MICROALBUMIN: CREATININE RATIO (92366) AND (57335)Indication: Diabetes mellitus type II, controlled On: : Request METABOLIC PANEL, COMPREHENSIVE (64711)Indication: Diabetes mellitus type II, controlled On: : Request LIPID PANEL (03354)Indication: Diabetes mellitus type II, controlled On: : Request CBC WITH MANUAL DIFF (18760)Indication: Diabetes mellitus type II, controlled On: : Request URINE VERÓNICA CULTURE-HSARIFA COL COUNT (34967)Indication: Dysuria (Renamed from Difficult or painful urination) On: 34-Fjc-497318:15 Request URINE VERÓNICA CULTURE-SHARIFA COL COUNT (50258)Indication: Dysuria (Renamed from Difficult or painful urination) On: 39-Gvq-928345:55 Request Ferritin (95463)Indication: Elevated LFTs On: 50-Nuj-396992:50 Request Comments: repeat now per Dr. Cabral with iron level Iron Binding Capacity (TIBC) (07539)Indication: Elevated LFTs On: 96-Puv-750173:50 Request Iron (83238)Indication: Elevated LFTs On: 26-Wmn-607751:49 Request CBC (Auto) (15383)Indication: Thrombocytopenia, unspecified On: 31-Nmv-531437: Request Comments: nonclumping tube HEPATITIS PANEL (38334)Indication: Elevated LFTs On: : Request FERRITIN (10868)Indication: Elevated LFTs On: 27-Wmo-220397:00 Request CERULOPLASMIN (12886)Indication: Elevated LFTs On: 89-Cuk-276919:00 Request ASM (ANTI SMOOTH MUSCLE ANTIBODY) (26964)Indication: Elevated LFTs On: 01-Ijh-279767:00 Request GAYATRI (ANTINUCLEAR ANTIBODY) (26880)Indication: Elevated LFTs On: 63-Hyz-783413:00 Request HEPATITIS PANEL (68533)Indication: Elevated LFTs On: 03-Erh-84673:01 Request TSH (82592)Indication: Hypothyroidism On: 92-Odt-546183:16 Request LIPID PANEL (19628)Indication: Diabetes mellitus type II, controlled On: 74-Pov-070208:15 Request DRUG ASSAY-LITHIUM (56898)Indication: Bipolar affective disorder, mixed On: 36-Uri-044239:14 Request Metabolic Panel, Basic (15623)Indication: Bipolar affective disorder, mixed On: 05-Vob-057422:13 Request Metabolic Panel, Basic (60944)Indication: Bipolar affective disorder, mixed On: 07-Wrj-922174:22 Request DRUG ASSAY-LITHIUM (73693)Indication: Bipolar affective disorder, mixed On: 32-Yjp-643679:22 Request Comments: 2 months Urinalysis, Office (00380)Indication: Urinary frequency On: 01-Dgu-217003:27 Request Comments: done pms HEPATIC FUNCTION PANEL (08912)Indication: Other and unspecified hyperlipidemia On: 5-Edq-576003:45 Request Lipid Panel (24651)Indication: Other and unspecified hyperlipidemia On: 0-Wtl-098862:45 Request Lipid Panel (89654)Indication: Other and unspecified hyperlipidemia On: 11-Uye-185080:17 Request CBC, Platelets & Auto Diff (09869)Indication: Other and unspecified hyperlipidemia On: 85-Dly-011932:17 Request Metabolic Panel, Comprehensive (79593)Indication: Other and unspecified hyperlipidemia On: 20-Dkv-508298:17 Request TSH (63634)Indication: Hypothyroidism On: 09-Oeu-761786:15 Request Metabolic Panel, Basic (84757)Indication: Other and unspecified hyperlipidemia On: :55 Request Lipid Panel (20758)Indication: Other and unspecified hyperlipidemia On: :55 Request Comments: in three months (approximately) CBC (Auto) (21793)Indication: Intestinal disaccharidase deficiencies and disaccharide malabsorption On: :56 Request Metabolic Panel, Comprehensive (56539)Indication: Intestinal disaccharidase deficiencies and disaccharide malabsorption On: :56 Request Lipid Panel (74546)Indication: Intestinal disaccharidase deficiencies and disaccharide malabsorption On: 92-Zmx-12593:56 Request Comments: in three months (approximately) MICROALBUMIN 24 HOUR OR RANDOM On: 88-Axi-317709:04 Request (44235) CREATININE CLEARANCE (36866) On: 78-Rqh-199680:03 Request CBC (Auto) (43212)Indication: Unspecified disorder of kidney and ureter On: :53 Request Lipid Panel (51826)Indication: Unspecified disorder of kidney and ureter On: :53 Request Metabolic Panel, Comprehensive (13177)Indication: Unspecified disorder of kidney and ureter On: :53 Request TSH (36008)Indication: Hypothyroidism On: :53 Request TSH (92300)Indication: Hypothyroidism On: 47-Yll-976145:18 Request URINALYSIS (60812)Indication: Intestinal disaccharidase deficiencies and disaccharide malabsorption On: 05-Yez-760400:43 Request CBC (Auto) (94293)Indication: Intestinal disaccharidase deficiencies and disaccharide malabsorption On: 32-Hho-567193:43 Request Lipid Panel (81889)Indication: Intestinal disaccharidase deficiencies and disaccharide malabsorption On: 48-Pkj-830902:43 Request Metabolic Panel, Comprehensive (99671)Indication: Intestinal disaccharidase deficiencies and disaccharide malabsorption On: 23-Zxk-995851:43 Request Planned Procedures COMPUTED TOMOGRAPHY ANGIOGRAPHY OF On: 01-Aug-2018 Intent CHEST FOR PULMONARY EMBOLISM Comments: stat for PE (31874)By: Eli Bowman CNP, CNP, Mary E Echo CompleteBy: Eli Bowman CNP On: 29-Jul-2018 Intent Eli oBwman CNP Spirometry (45057)By: Colby WATTERS On: 29-Jul-2018 Intent Eli Mcelroy CNP Holter Monitor 24 hrsBy: Colby WATTRES, On: 29-Jul-2018 Intent Eli Mcelroy CNP CHEST XRAY, PA & LATERAL (62345)By: On: 29-Jul-2018 Intent Eli Bowman CNP, CNP, Mary E ELECTROCARDIOGRAM, COMPLETE (ECG) On: 29-Jul-2018 Intent (35915)By: Colby WATTERS Eli Bowman Comments: sinus rhythm Eli WATTERS Aerosol Treatment (00974)By: Colby On: 29-Jul-2018 Intent Eli WATTERS CNP, Mary E Flu Vaccine (Quadrivalent) 04688Iy: On: 22-Jul-2018 Intent Tejal Ceron Comments: Lot #[id number]-L dltd, IMDose prefilled syringegiven by: Rosalie Ceron MA Toradol Injection, 30 mg (J1885)By: On: 09-May-2018 Intent Nunu Root Comments: lot [id number] 12/2029mgIMleft gmas, EXECUTIVE DIRECTOR OF MARKETING SCREENING DIGITAL TOMOSYNTHESIS OF On: 18-Apr-2018 Intent BREAST (80246)By: Colby WATTERS Eli Mcelroy CNP DEXA SCAN AXIAL SKELETON (19467)By: On: 18-Apr-2018 Intent Colby WATTERSEli CNP, Mary E Toradol Injection, 30 mg (J1885)By: On: 22-Mar-2018 Intent Nunu Root Comments: toradol 30mg injection lot:[id number]:10/2019R GMpt tolerated wellMSMITH,EXECUTIVE DIRECTOR OF MARKETING COMPLETE ELECTROMYOGRAPHY (EMG) WITH On: 22-Mar-2018 Intent NERVE CONDUCTION STUDIES OF EACH Comments: Bilateral lower legs EXTREMITY (15936)By: Nunu Root EMGBy: José Miguelsilvano Eli WATTERS CNP, On: 03-Jan-2018 Intent Eli Lubin Comments: both legs Nerve ConductionBy: Lisajanna Eli WATTERS On: 03-Jan-2018 Intent Eli Hurtado CNP Comments: both legs Toradol Injection, 30 mg (J1885)By: On: 23-Dec-2017 Intent Mayda Dobbins DO Comments: toradol 30mg injectionlot: [id number]: 06/2018L GMpt tolerated wellAD EXECUTIVE DIRECTOR OF MARKETING Spirometry (66043)By: Dk, On: 16-Nov-2017 Intent Nunu Comments: Normal spirometry Aerosol Treatment (01495)By: Shilpi On: 30-Aug-2017 Mayda Bailey DO Comments: less noise with forced exp Solu- Medrol Injection, 125mg On: 30-Aug-2017 Intent (J2930)By: Mayda Dobbins DO Comments: solumedrol 125mg injectionlot: [id number]: GMpt tolerated wellAD EXECUTIVE DIRECTOR OF MARKETING Radiology - Chest- PA and LatBy: On: 30-Aug-2017 Intent Mayda Dobbins DO Solu- Medrol Injection, 125mg On: 26-Aug-2017 Intent (J2930)By: Mayda Dobbins DO Comments: solumedrol 125mg injectionlot: [id number]: 12/2019L GMpt tolerated wellAD EXECUTIVE DIRECTOR OF MARKETING Aerosol Treatment (32411)By: Shilpi On: 26-Aug-2017 Intent Mayda COLEMAN Comments: [place] Spirometry (49850)By: Shilpi COLEMAN, On: 26-Aug-2017 Intent Mayda Comments: mild obstruction Radiology - Shoulder - RightBy: On: 20-Jul-2017 Intent Edita Cabral MD Radiology - Lumbar SpineBy: Misha On: 20-Jul-2017 Intent Edita PROCTOR DRAIN/INJECT MAJOR JOINT OR BURSA On: 13-Apr-2017 Intent (15587)By: Eli Bowman CNP Comments: injevted left knee today Eli WATTERS PHYSICAL THERAPY (86334)By: Dk On: 08-Apr-2017 Intent Nunu Radiology - Knee - RightBy: Dk On: 08-Apr-2017 Intent Nunu Radiology - Knee - LeftBy: Dk, On: 08-Apr-2017 Intent Nunu ATTENDED SLEEP STUDY (25337)By: On: 18-Jan-2017 Intent Eli Bowman CNP, CNP, Mary E DEXA SCAN AXIAL SKELETON (73621)By: On: 24-Nov-2016 Intent Donnie Gonzales MD MAMMOGRAM, SCREENING, BOTH BREAST On: 24-Nov-2016 Intent (70409)By: Donnie Gonzales MD US KIDNEY COMPLETE (68434)By: Janet On: 16-Jul-2016 Intent Donnie PROCTOR EsophagramBy: Edita Cabral MD On: 06-Feb-2016 Intent Comments: 12mm tablet X-RAY EXAM OF ESOPHAGUS (75715) - On: 04-Feb-2016 Intent Barium Swallow with 12mm tabletBy: Donnie Gonzales MD Carotid DopplerBy: Edita Cabral MD On: 16-Sep-2015 Intent M TD VACCINE ADULT (76114)By: Misha On: 16-Sep-2015 Intent Edita PROCTOR TDAP VACCINE >7 IM (38216)By: On: 16-Sep-2015 Intent Edita Cabral MD Pap Smear, Medicare (Q0091)By: On: 16-Sep-2015 Intent Edita Cabral MD MAMMOGRAM, SCREENING, BOTH BREAST On: 16-Sep-2015 Intent (89386)By: Edita Cabral MD Renal Artery DopplerBy: Misha PROCTOR, On: 04-Feb-2015 Intent Edita Clinton Ultrasound - RenalBy: Misha PROCTOR, On: 04-Feb-2015 Intent Edita Clinton DEXA SCAN AXIAL SKELETON (11281)By: On: 17-Jan-2015 Intent Edita Cabral MD Comments: postmenapausal MAMMOGRAM, SCREENING, BOTH BREAST On: 17-Jan-2015 Intent (04291)By: Edita Cabral MD Radiology - Shoulder - [...] with back pain- stat call results Spirometry (21734)By: Thee COLEMAN, On: 30-Apr-2014 Intent Erna Schaefer Comments: good effort and curve normal ELECTROCARDIOGRAM, COMPLETE (ECG) On: 30-Apr-2014 Intent (21774)By: Erna Kingston DO Eprescribed prescriptions (G8553)By: On: 12-Feb-2014 Intent Edita Cabral MD SPECIMEN HANDLING/TRANSPORT On: 15-Jan-2014 Intent (88032)By: Eli Bowman CNP, CNP, Mary E Eprescribed prescriptions (G8553)By: On: 11-Oct-2013 Intent Nunu Stephens LPN ADMINISTRATION OF INFLUENZA VIRUS On: 24-Jul-2013 Intent VACCINE (G0008)By: Edita Cabral MD FLU VAC, SPLIT, >3 YEARS, INTRAMUSC On: 24-Jul-2013 Intent (06968)By: Edita Cabral MD Echo CompleteBy: Edita Cabral MD On: 27-Jun-2013 Intent Carotid DopplerBy: Edita Cabral MD On: 27-Jun-2013 Intent M Eprescribed prescriptions (G8553)By: On: 27-Jun-2013 Intent Teressa Molina LPN L MRI - BrainBy: Eli Bowman CNP On: 16-Jun-2013 Intent Eli Bowman CNP SPECIMEN HANDLING/TRANSPORT On: 16-May-2013 Intent (64450)By: Sue Ewing LPN Holter Monitor 24 hrsBy: Colby WATTERS, On: 28-Apr-2013 Intent Eli Mcelroy CNP ELECTROCARDIOGRAM, COMPLETE (ECG) On: 28-Apr-2013 Intent (42744)By: Eli Bowman CNP Comments: sinus bradycardia Eli WATTERS Bio Z (38019)By: Eli Bowman CNP On: 28-Apr-2013 Intent Eli Bowman CNP EKG (77746)By: Edita Cabral MD On: 28-Mar-2013 Intent Comments: see scanned document of test done to see results reviewed today with patient Eprescribed prescriptions (G8553)By: On: 28-Mar-2013 Intent Jason Molina LPNn L Eprescribed prescriptions (G8553)By: On: 08-Dec-2012 Intent Nunu Stephens LPN Spirometry (44007)By: Shilpi COLEMNA, On: 25-Nov-2012 Intent Mayda Comments: Computer not running so not able to perform test Aerosol Treatment (90491)By: Shilpi On: 25-Nov-2012 Intent Mayda COLEMAN Spirometry (43740)By: Thee COLEMAN, On: 21-Nov-2012 Intent Erna A Comments: good effort and curve normal Radiology - Chest- PA and LatBy: On: 21-Nov-2012 Intent Thee COLEMAN Erna A Eprescribed prescriptions (G8553)By: On: 21-Nov-2012 Intent Makayla Dillard LPN ADMINISTRATION OF PNEUMOCOCCAL On: 31-Oct-2012 Intent VACCINE (G0009)By: Edita Cabral MD Comments: Lot #[id number]-right deltoidDose0.5mlgiven by: [facility] per fax. M PNEUM VAC ADLT/IMUMNOSPR, SBC/INTRM On: 31-Oct-2012 Intent (59561)By: Jodi Carvalho LPN Eprescribed prescriptions ([id number])By: On: 18-Oct-2012 Intent Teressa Molina LPN FLU VAC, SPLIT, >3 YEARS, INTRAMUSC On: 01-Jul-2012 Intent ([id number])By: Eli Bowman CNP Comments: Lot:[id number]:6.13Amt:prefilled syringeSite: L Dltd, IMGiven by: MARISA Torres CNP, Mary E ADMINISTRATION OF INFLUENZA VIRUS On: 01-Jul-2012 Intent VACCINE ([id number])By: Eli Bowman CNP, CNP, Mary E SPECIMEN HANDLING/TRANSPORT On: 01-Jul-2012 Intent ([id number])By: Sue Ewing LPN Solu -Medrol Injection, 125 mg On: 23-Nov-2011 Intent ([id number])By: Edita Cabral MD Comments: Lot [id number]-R hip, IMDose 125mggiven by:Teressa Radiology - ChestBy: Misha PROCTOR, On: 23-Nov-2011 Intent Edita Clinton Comments: wet read Pulse Oximetry ([id number])By: Benoit On: 23-Nov-2011 Intent AKBAR Aerosol Treatment ([id number])By: Colby On: 16-Nov-2011 Intent Eli WATTERS CNP, Mary E Pulse Oximetry ([id number])By: Vin On: 16-Nov-2011 Intent Lynn Comments: 93 FLU VAC, SPLIT, >3 YEARS, INTRAMUSC On: 16-Nov-2011 Intent ([id number])By: Lynn Banuelos Comments: received at work SPECIMEN HANDLING/TRANSPORT On: 14-Sep-2011 Intent ([id number])By: Edita Cabral MD SPECIMEN HANDLING/TRANSPORT On: 26-Aug-2011 Intent ([id number])By: Sue Ewing LPN Ultrasound - LiverBy: Misha PROCTOR, On: 11-Jun-2011 Intent Edita Clinton EKG ([id number])By: Edita Cabral MD On: 16-Feb-2011 Intent MAMMOGRAM, SCREENING, BOTH BREASTS On: 13-Mar-2010 Intent ([id number])By: Edita Cabral MD MAMMOGRAM, SCREENING, BOTH BREASTS On: 06-Mar-2010 Intent ([id number])By: Edita Cabral MD MAMMOGRAM, SCREENING, BOTH BREASTS On: 13-Feb-2010 Intent ([id number])By: Edita Cabral MD Spirometry ([id number])By: Misha PROCTOR, On: 01-Oct-2009 Intent Edita Clinton ELECTROCARDIOGRAM, COMPLETE (ECG) On: 01-Oct-2009 Intent ([id number])By: Edita Cabral MD Pulse Oximetry ([id number])By: Benoit On: 01-Oct-2009 Intent AKBAR Spirometry ([id number])By: Thee COLEMAN, On: 30-Jul-2009 Intent Erna Schaefer Comments: good effort and curve normal Radiology - Chest- PA and LatBy: On: 30-Jul-2009 Intent Erna Kingston DO Pulse Oximetry ([id number])By: Vin, On: 30-Jul-2009 Intent Lynn Comments: 94%repeat 97-98 EKG ([id number])By: Erna Kingston DO On: 14-Jul-2009 Intent Comments: ekg showed normal sinus rhythym, normal axis, no acute st/t wave changes old t wave inversion noted on previous ekg Pulse Oximetry ([id number])By: Vin, On: 11-Jul-2009 Intent Lynn Comments: 97% Solu -Medrol Injection, 125 mg On: 09-Jul-2009 Intent ([id number])By: Erna Kingston DO Comments: Lot #:[id number] date:mount given:125mgRoute:IM Site given:left buttockGiven by: MARIA DOLORES Cordon Aerosol Treatment ([id number])By: Thee On: 09-Jul-2009 Erna Bailey DO Pulse Oximetry ([id number])By: Thee COLEMAN, On: 09-Jul-2009 Intent Erna A Comments: repeat after treatment was 96 Pulse Oximetry ([id number])By: Vin, On: 09-Jul-2009 Intent Lynn Comments: 93% Spirometry ([id number])By: Gildardo SOUSA, On: 25-Jan-2009 Intent Sue MAMMOGRAM, SCREENING, BOTH BREASTS On: 29-May-2008 Intent ([id number])By: Edita Cabral MD EKG ([id number])By: Edita Cabral MD On: 29-May-2008 Intent Spirometry ([id number])By: Misha PROCTOR, On: 27-Dec-2007 Intent Edita Clinton Ultrasound - ThyroidBy: Misha PROCTOR, On: 22-Mar-2007 Intent Edita Clinton MAMMOGRAM, SCREENING, BOTH BREASTS On: 22-Mar-2007 Intent ([id number])By: Edita Cabral MD MAMMOGRAM, SCREENING, BOTH BREASTS On: 22-Mar-2007 Intent ([id number])By: Edita Cabral MD ELECTROCARDIOGRAM, COMPLETE (ECG) On: 22-Mar-2007 Intent ([id number])By: Edita Cabral MD Planned Medications INJECTION, KETOROLAC [...] disease, bilateral : DISCONTINUED - POTASSIUM SERUM (43493) Indication: Active Meniere's disease, bilateral Elevated LFTs : DISCONTINUED - HEPATIC FUNCTION PANEL (23365) Indication: Elevated LFTs Diabetes mellitus type II, [...] reveiwing printed for pt to take to [facility] , [ADDITIONAL REASON] Weight Gain - Note [...] care, told to go to ER at [facility] diagnosed with Esophagitis was given pepcid [...] occurred following a specific injury (lifting at [employer] for years but no fall). The injury [...] [facility] preventative measures: PAP smear (needs updated ), mammography (needs updated ) and colonoscopy (needs updated however patient refuse to have done bc she was hospitalized with the last one with infection for 5 days ). The patient does have durable power of wood scaler and living will. The patient has noticed [...] for Tdap vaccination (Renamed from Need for ressagebvk-tykhskf-umcdzazrg (Tdap) vaccine, adult/adolescent), Goiter (Renamed from Big [...] (240.9), Hypothyroidism(244.9) [facility] Payers MedicarePhysicians [employer] Lilly Toro; a guarantor
--- OUTSIDE RECORDS SUMMARY | 2018-11-25 15:29 | XMS RPT_ITS ---
:1950 Author Organization OHIP Support Name Relationship Address Phone RADHA GARCIA Unavailable [address] + [place] [address] R Unavailable Unavailable Unavailable STRAUSBAUGH, MADDIE Unavailable [address] + [place] [address] RADHA GARCIA Unavailable [address] + [place] [address] R Unavailable Unavailable Unavailable STRAUSBAUGH, MADDIE Unavailable [address] + [place] [address] RADHA GARCIA Unavailable [address] + [place] [address] R Unavailable Unavailable Unavailable STRAUSBAUGH, MADDIE Unavailable [address] + [place] [address] RADHA RADHA Unavailable [address] + [facility] [place] [address] R Unavailable Unavailable Unavailable STRAUSBAUGH, MADDIE Unavailable [address] + [place] [address] RADHA RADHA Unavailable [address] + [facility] [place] [address] R Unavailable Unavailable Unavailable STRAUSBAUGH, MADDIE Unavailable [address] + [place] [address] RADHA RADHA Unavailable [address] + [facility] [place] [address] R Unavailable Unavailable Unavailable STRAUSBAUGH, MADDIE Unavailable [address] + [place] [address] RADHA RADHA Unavailable [address] + [facility] [place] [address] R Unavailable Unavailable Unavailable STRAUSBAUGH, MADDIE Unavailable [address] + [place] [address] GARCIA, RADHA Unavailable [address] + [place] [address] R Unavailable Unavailable Unavailable STRAUSBAUGH, MADDIE Unavailable [address] + [place] [address] GARCIA, RADHA Unavailable [address] + [place] [address] R Unavailable Unavailable Unavailable STRAUSBAUGH, MADDIE Unavailable [address] + [place] [address] GARCIA, RADHA Unavailable [address] + [place] [address] R Unavailable Unavailable Unavailable STRAUSBAUGH, MADDIE Unavailable [address] + [place] [address] GARCIA, RADHA Unavailable [address] + [facility] [place] [address] R Unavailable Unavailable Unavailable STRAUSBAUGH, MADDIE Unavailable [address] + [place] [address] GARCIA, RADHA Unavailable [address] + [facility] [place] [address] R Unavailable Unavailable Unavailable STRAUSBAUGH, MADDIE Unavailable [address] + [place] [address] GARCIA, RADHA Unavailable [address] + [place] [address] R Unavailable Unavailable Unavailable STRAUSBAUGH, MADDIE Unavailable [address] + [place] [address] GARCIA, RADHA Unavailable [address] + [place] [address] R Unavailable Unavailable Unavailable STRAUSBAUGH, MADDIE Unavailable [address] + [place] [address] GARCIA, RADHA Unavailable [address] + [place] [address] R Unavailable Unavailable Unavailable STRAUSBAUGH, MADDIE Unavailable [address] + [place] [address] GARCIA, RADHA Unavailable [address] + [place] [address] R Unavailable Unavailable Unavailable STRAUSBAUGH, MADDIE Unavailable [address] + [place] [address] RADHA GARCIA Unavailable [address] + [place] [address] R Unavailable Unavailable Unavailable MADDIE RIVAS Unavailable [address] [phone] [place] [address] RADHA GARCIA Unavailable [address] + [place] [address] R Unavailable Unavailable Unavailable MADDIE RIVAS Unavailable [address] [phone] [place] [address] Care Team Providers Name Role Phone Eli Bowman Attending Unavailable Ciesa, Eli [facility]erring [facility]available Mayda Dobbins Attending Unavailable Mayda Dobbins Referring Unavailable [facility] Unavailable Eli Bowman Attending Unavailable Ciesa, Eli Referring Unavailable [facility] Unavailable CiEli saldivar Attending Unavailable Ciesa, Eli Referring Unavailable [facility] Unavailable Eli Bowman Attending Unavailable CiesaEli Referring Unavailable [facility] Unavailable CiesEli holguin Attending Unavailable Ciesa, Eli Referring Unavailable [facility] Unavailable CiesaEli Attending Unavailable [facility] Unavailable LisaesEli holguin Attending Unavailable Ciesa, Eli Referring Unavailable [facility] Unavailable Soumya Henry Attending Unavailable Soumya Henry Referring Unavailable [facility] Unavailable Eli Bowman Attending Unavailable Ciesa, Eli Referring Unavailable [facility] Unavailable Eli Bowman Attending Unavailable [facility] Unavailable DENNIS GOLDMAN Attending Unavailable [facility] Unavailable DENNIS GOLDMAN Attending Unavailable [facility] Unavailable CiesaEli Attending Unavailable Ciesa, Eli Referring Unavailable [facility] Unavailable LisaesaEli Attending Unavailable [facility] Unavailable Eli Bowman Attending Unavailable Ciesa, Eli Referring Unavailable [facility] Unavailable CimitchaEli Attending Unavailable Ciesa, Eli Referring Unavailable [facility] Unavailable Gm Flores Attending Unavailable Gm Flores Primary [facility] Unavailable PROBLEMS PROBLEMS DATE TYPE CONDITION / CODE ATTENDING STATUS SOURCE 10/11/2018 Unknown E11.9 - Type 2 Gm Flores Active [place] diabetes mellitus [facility] without Hospital complications / Repository E11.9(ICD-10) 10/11/2018 Unknown I10 - Essential Gm Flores Active [place] (primary) [facility] hypertension / Hospital I10(ICD-10) Repository 10/11/2018 Unknown E03.9 - Gm Flores Active [place] Hypothyroidism, [facility] unspecified / Hospital E03.9(ICD-10) Repository 09/01/2018 Unknown R63.5 - Abnormal Eli Bowman Active [place] weight gain / [facility] R63.5(ICD-10) Hospital Repository 04/23/2018 Unknown Z13.0 - Encounter Elaine, Active [place] for screening for [facility] diseases of the Hospital blood and Repository blood-forming organs and certain disorders involving the immune mechanism / Z13.0(ICD-10) 04/23/2018 Unknown N18.3 - Chronic Elaine, Active [place] kidney disease, [facility] stage 3 (moderate) Hospital / N18.3(ICD-10) Repository PROCEDURES PROCEDURES No Procedure Records FoundRESULTS RESULTS CBC W/DIFF, AUTOMATED Collected: 09/30/2018 Status: F Source: [place] 3:54 PM [facility] REPOSITORY TYPE CODE TESTS RESULT OUT OF RANGE REFERENCE UNITS LAB L100.1000 4.4-11.0 K/mm3 Normal WBC 9.1 LAB L100.1200 4.2-5.4 M/mm3 Normal RBC 4.26 LAB L100.1300 12.0-15.0 g/dl Normal HGB 13.4 LAB L100.1400 37-47 % Normal HCT 40.3 LAB L100.1500 81-99 fL Normal MCV 94.6 LAB L100.1600 27.0-32.0 pg Normal MCH 31.5 LAB L100.1700 32-36 g/gl Normal MCHC 33.3 LAB L100.1810 11.6-14.6 % Normal RDW CV 13.2 LAB L100.1820 35.1-43.9 fl High RDW SD 45.4 LAB L100.1900 150-450 K/mm3 Normal PLT 217 LAB L100.2000 6.2-12.0 fl Normal MPV 9.7 LAB L100.2100 47-70 % Normal NEUT% 48.0 LAB L100.2200 19-41 % Normal LY% 31.3 LAB L100.2300 0-10 % High MONO% 12.4 LAB L100.2400 0-5 % High EO% 7.6 LAB L100.2500 0-1 % Normal BASO% 0.5 LAB L100.2550 0.0-0.9 % Normal IM GRAN % 0.200 Result Comment: IG% - Immature Granulocytes (promyelocytes, myelocytes and metamyelocytes) > 1% indicates that a LEFT SHIFT is Present. LAB L100.2620 2.0-7.7 X10 3/uL Normal Absolute Neut 4.4 LAB L100.2720 0.83-4.51 X10 3/ul Normal Absolute Lymph 2.85 Performed By: #### L100.0100, L501.9985, L503.0105, L506.1000, L500.4050, L501.9520, L506.0400, L502.0250 #### [facility] [place], [place], [address] HEMOGLOBIN A1C Collected: 09/30/2018 Status: F Source: [place] 3:54 PM [facility] REPOSITORY TYPE CODE TESTS RESULT OUT OF RANGE REFERENCE UNITS LAB L501.9985 4.2-6.3 % Normal HGB A1C 6.0 Performed By: #### L100.0100, L501.9985, L503.0105, L506.1000, L500.4050, L501.9520, L506.0400, L502.0250 #### [facility] [address] [facility] [place], [place], [id number] VITAMIN B12 Collected: 09/30/2018 Status: F Source: [place] 3:54 PM [facility] REPOSITORY TYPE CODE TESTS RESULT OUT OF RANGE REFERENCE UNITS LAB L503.0105 211-911 pg/mL Normal Vitamin B12 788 Performed By: #### L100.0100, L501.9985, L503.0105, L506.1000, L500.4050, L501.9520, L506.0400, L502.0250 #### [facility] [address] [place], [address] VITAMIN D,25 HYDROXY Collected: 09/30/2018 Status: F Source: [place] 3:54 PM [facility] REPOSITORY TYPE CODE TESTS RESULT OUT OF RANGE REFERENCE UNITS LAB L506.1000 29.95-100.01 ng/mL Normal Vitamin D 64.5 25-OH Result Comment: Vitamin D 25(OH) Status Range Deficiency <20 ng/mL (50nmol/L) Insuffciency 20 - 30 ng/mL (50 - 75 nmol/L) Sufficiency 30 - 100 ng/mL (75 - 250 nmol/L) Toxicity >100 ng/mL (>250 nmol/L) Performed By: #### L100.0100, L501.9985, L503.0105, L506.1000, L500.4050, L501.9520, L506.0400, L502.0250 #### [facility] [address] [facility] [place], [address] COMPREHENSIVE METABOLIC Collected: 09/30/2018 Status: F [facility] PM [facility] REPOSITORY Order Comment: Comments: B6 #[id number] PLASMA FROZEN PFL TYPE CODE TESTS RESULT OUT OF RANGE REFERENCE UNITS LAB L501.0100 74-106 mg/dL Normal GLU 85 Result Comment: Please note revised GLUCOSE reference range effective 2017. LAB L501.1000 7-18 mg/dL High BUN 21 LAB L501.1100 0.55-1.02 mg/dL High CREAT,SERUM 1.31 Result Comment: The validity of the calculated GFR AND GFRAA in patients over 70 years has not been determined. Clinical correlation is essential. LAB L501.1110 >60 mL/min Low EST GFR 43 Result Comment: Non- GFR Calc LAB L501.1115 >60 mL/min Low EST GFR - AA 52 Result Comment: GFR Calc LAB L501.1300 10-20 RATIO Normal BUN/CRE 16.0 LAB L501.1500 6.4-8.2 g/dL T Normal PROT 7.5 LAB L501.1800 3.2-5.0 g/dL Normal ALB 3.4 LAB L501.1950 2.2-4.2 g/dL Normal GLOB 4.1 LAB L501.2000 0.9-2.4 RATIO Low A/G 0.8 LAB L501.2200 8.5-10.1 mg/dL CA Normal 8.8 LAB L501.4100 15-37 U/L Normal AST 29 LAB L501.4305 45-117 U/L Normal ALK P 69 LAB L501.4405 13-56 U/L Normal ALT 41 LAB L501.4600 0.20-1.00 mg/dL T Normal BILI 0.30 LAB L501.5300 136-145 mmol/L Low NA 133 LAB L501.5600 3.5-5.1 mmol/L K Normal 4.1 LAB L501.5900 98-107 mmol/L CL Normal 98 LAB L501.6100 21.0-32.0 mmol/L Normal CO2 25.0 LAB L501.6200 5-15 Normal GAP 10 Performed By: #### L100.0100, L501.9985, L503.0105, L506.1000, L500.4050, L501.9520, L506.0400, L502.0250 #### [facility] [address] [place], [address] THYROID STIM HORMONE Collected: 09/30/2018 Status: F Source: [place] (TSH) 3:54 PM [facility] REPOSITORY Order Comment: Comments: B6 #[id number] PLASMA FROZEN PFL TYPE CODE TESTS RESULT OUT OF RANGE REFERENCE UNITS LAB L501.9520 0.358-3.74 uIU/mL High TSH 3.92 Performed By: #### L100.0100, L501.9985, L503.0105, L506.1000, L500.4050, L501.9520, L506.0400, L502.0250 #### [facility] [address] [place], [place], [address] T4 FREE DIRECT Collected: 09/30/2018 Status: F Source: [place] 3:54 PM [facility] REPOSITORY Order Comment: Comments: B6 #4655 PLASMA FROZEN PFL TYPE CODE TESTS RESULT OUT OF RANGE REFERENCE UNITS LAB L506.0400 0.76-1.46 ng/dL Normal T4 FREE 1.14 DIRECT Performed By: #### L100.0100, L501.9985, L503.0105, L506.1000, L500.4050, L501.9520, L506.0400, L502.0250 #### [facility] [address] [place], [address] MICROALB:CREAT Collected: 09/30/2018 Status: F Source: [place] RATIO,RANDOM [place] 3:54 PM [facility] REPOSITORY TYPE CODE TESTS RESULT OUT OF RANGE REFERENCE UNITS LAB L501.1200 NO RANGE EST. mg/dL 27.50 Normal UR CREAT LAB L502.0500 NO RANGE EST. mg/L < 5.0 Normal MICROALBUMI N,UR LAB L502.0600 <30 mg/g CRE mg/g CRE Test Normal not performed MALB:CREAT Performed By: #### L100.0100, L501.9985, L503.0105, L506.1000, L500.4050, L501.9520, L506.0400, L502.0250 #### [facility] [address] [place], [place], [id number] URINALYSIS, COMPLETE Collected: 09/30/2018 Status: C Source: [place] 3:54 PM [facility] REPOSITORY Order Comment: Comments: B6 #5831 PLASMA FROZEN PFL How was Urine Obtained? CLEAN CATCH TYPE CODE TESTS RESULT OUT OF RANGE REFERENCE UNITS LAB L400.3000 Yellow COLOR Normal Straw LAB L400.3050 Clear Normal CLARITY Clear LAB L400.3200 Normal mg/dl Normal GLUCOSE, UR Normal LAB L400.3300 Negative mg/dL Normal BILIRUBIN URINE Negative LAB L400.3400 Negative mg/dl Normal KETONE UR Negative LAB L400.3465 1.002-1.030 Normal SP.GR. DIPSTX 1.005 LAB L400.3550 5.0 - 8.0 pH UR Normal 5.0 LAB L400.3600 Negative mg/dl PROT Normal DIPSTX Negative LAB L400.3700 Normal mg/dl Normal UROBILI Normal LAB L400.3750 Negative Normal NITRITE UR Negative LAB L400.3780 Negative /ul Normal OCCULT BLOOD-UR Negative LAB L400.3800 Negative /ul High LEUK ESTERASE 100 LAB L400.4050 0-5 /hpf WBC Normal 0-5 SEEN Result Comment: AMENDED REPORT 09/30/181807 WBC previously reported as: 0 SEEN /hpf LAB L400.4100 0-5 /hpf Normal RBC-UA 0 SEEN LAB L400.4150 5-10 /hpf Normal SQUAM EPI 0-5 SEEN Result Comment: AMENDED REPORT 09/30/181808 SQUAM EPI previously reported as: 0 SEEN /hpf LAB L400.4300 None Seen /hpf Normal BACTERIA 0 SEEN LAB L400.4350 <or=2+ /hpf Normal MUCUS, URINE 0 SEEN Performed By: #### L400.0001 #### [facility] [address] [place], [address] VITAMIN B1, THIAMINE Collected: 09/30/2018 Status: F Source: [place] 3:54 PM [facility] REPOSITORY Order Comment: Comments: B6 #4655 PLASMA FROZEN PFL TYPE CODE TESTS RESULT OUT OF RANGE REFERENCE UNITS LAB L3300.8000 66.5-200.0 nmol/L Normal VIT B1 165.9 Result Comment: This test was developed and its performance characteristics determined by [employer]. It has not been cleared or approved by the Food and Drug Administration. Performed at: [address] [id number] [employer]: Karyna Arellano MD, Phone: [phone] Performed By: #### L3300.8000 #### [facility] (refer to report for specific site) refer to report for address and phone number MISCELLANEOUS LAB Collected: 09/30/2018 Status: F Source: [place] PROCEDURE 3:54 PM [facility] REPOSITORY Order Comment: Comments: B6 #4655 PLASMA FROZEN PFL Test(s) Ordered: B6 #4655 PLASMA FROZEN PFL TYPE CODE TESTS RESULT OUT OF RANGE REFERENCE UNITS LAB L801.1541 Normal [facility] TEST Result Comment: TEST RESULT LIMITS Vitamin B1 (Thiamine), Blood Vit. B1, Whole Blood 165.9 nmol/L 66.5 - 200.0 Disclaimer: This test was developed and its performance characteristics determined by [facility]. It has not been cleared or approved by the Food and Drug Administration. TESTING PERFORMED AT [facility]. ORIGINAL REPORT ON FILE IN LAB CONTAINS ADDITIONAL TEST SITE INFORMATION. Performed By: #### L801.1541 #### [facility] [address] [place], [address] CREATININE FINGERSTICK Collected: 08/01/2018 Status: F Source: [place] 1:57 PM [facility] REPOSITORY TYPE CODE TESTS RESULT OUT OF REFERENCE UNITS RANGE LAB L9100.0210 0.55-1.02 mg/dL High CREATININE WB 1.1 LAB L9100.0220 >60 mL/min Low EGFR WB 55.0000 Performed By: #### L9100.0200 #### [facility] Point of Care [address] [place] [address] CTA CHEST W/WO Observed: 08/01/2018 Status: F Source: [place] CONTRAST 1:44 PM [facility] REPOSITORY [facility] Imaging Services [address] [place] [address] CTA Chest W/WO Contrast MR#: [id number] Acct: [id number] Name: ELIZABETH HOPE Rep #: [id number] : 1950 F 67 From: Hardeep Calix MD PCP: Eli Bowman NP Status: REG CLI Study: CTA Chest W/WO Contrast Date of Exam: 08/01/18 Exam# [id number] Ordering Dr: Eli Bowman STUDY: CTA CHEST/THORAX REASON FOR EXAM: Female, 67 years old. Shortness of breath, cough, elevated d-dimer. RADIATION DOSAGE (If Supplied By Facility): CTDIvol = ( 10.78 ) mGy, DLP = ( 604.84 ) mGycm TECHNIQUE: The examination was performed with the intravenous administration of 100CC ml of Isovue 370 contrast material. Post-processing of the angiographic images was performed, with multiplanar reformation. No 3D reconstruction. Individualized dose optimization techniques were used for [...] There are calcifications of the coronary arteries. There is a stable coarse pretracheal calcification. No demonstrated mediastinal or hilar adenopathy. Normal visualized trachea. Mild bronchiectasis predominates in the lung bases. There is subsegmental volume loss and crowding versus chronic postinflammatory change [...] pleura. Normal chest wall structures. There are stable multilevel degenerative changes of the thoracic spine. Normal visualized upper abdomen. CT/CTA Chest W/WO Contrast IMPRESSION: 1. No demonstrated pulmonary embolism or arterial dissection. 2. Bronchiectasis again seen in the lung bases, with chronic subsegmental volume crowding or chronic postinflammatory change in the posterior medial lung bases. There are also stable findings of old calcified granulomatous disease, but no new pulmonary or mass. 3. Atherosclerotic calcification of the coronary arteries, unchanged. Electronically Signed: Silvio Calxi MD at 14:38 EDT , Service support , CC: Eli Bowman NP [employer] Stock Clerk: Signed CHEST PA AND LATERAL Observed: 07/29/2018 Status: F Source: [place] 10:24 AM [facility] REPOSITORY [facility] Imaging Services [address] [place] [address] Chest PA and Lateral MR#: [id number] Acct: [id number] Name: ELIZABETH HOPE Rep #: [id number] : 1950 F 67 From: Cami Parra MD PCP: Eli Bowman NP Status: REG CLI Study: Chest PA and Lateral Date of Exam: 07/29/18 Exam# [id number] Ordering Dr: Eli Bowman STUDY: X-RAY CHEST REASON FOR EXAM: Female, 67 years old. Chest pain. TECHNIQUE: PA and lateral views of the chest. COMPARISON: Prior comparison studies are not available for review at this time. FINDINGS: The lungs are clear and expanded. There is no demonstrated pleural abnormality. There is borderline cardiomegaly. Normal mediastinum and tabby. Normal visualized pulmonary arteries. There is atherosclerotic tortuosity of the aortic arch and descending thoracic aorta. Normal visualized thoracic spine. Normal visualized ribs, clavicles, and shoulders. There is no demonstrated abnormality of the visualized soft tissue structures of the upper abdomen. RAD/Chest PA and Lateral IMPRESSION: No radiographic evidence of acute cardiopulmonary disease. Electronically Signed: Cami Parra MD at 10:43 EDT , Service support , CC: Eli Bowman NP [employer] Stock Clerk: Signed CBC-COMPLETE BLOOD CNT Collected: 04/23/2018 Status: F Source: [place] NO DIFF 9:16 AM [facility] REPOSITORY TYPE CODE TESTS RESULT OUT OF RANGE REFERENCE UNITS LAB L100.1000 4.4-11.0 K/mm3 Normal WBC 8.3 LAB L100.1200 4.2-5.4 M/mm3 Normal RBC 4.48 LAB L100.1300 12.0-15.0 g/dl Normal HGB 14.0 LAB L100.1400 37-47 % Normal HCT 41.8 LAB L100.1500 81-99 fL Normal MCV 93.3 LAB L100.1600 27.0-32.0 pg Normal MCH 31.3 LAB L100.1700 32-36 g/gl Normal MCHC 33.5 LAB L100.1810 11.6-14.6 % Normal RDW CV 12.9 LAB L100.1820 35.1-43.9 fl Normal RDW SD 43.2 LAB L100.1900 150-450 K/mm3 Normal PLT 216 LAB L100.2000 6.2-12.0 fl Normal MPV 10.5 Performed By: #### L100.0500 #### [facility] [address] [place], [place], [address] MICROALB:CREAT Collected: 04/23/2018 Status: F Source: [place] RATIO,RANDOM UR 9:16 AM [facility] REPOSITORY TYPE CODE TESTS RESULT OUT OF RANGE REFERENCE UNITS LAB L501.1200 NO RANGE EST. mg/dL < Normal UR 13.00 CREAT LAB L502.0500 NO RANGE EST. mg/L < 5.0 Normal MICROALBUMI N,UR LAB L502.0600 <30 mg/g CRE mg/g CRE Test Normal not performed MALB:CREAT Performed By: #### L502.0250 #### [facility] [address] [place], [place], [address] RENAL PROFILE Collected: 04/23/2018 Status: F Source: [place] 9:16 AM [facility] REPOSITORY TYPE CODE TESTS RESULT OUT OF RANGE REFERENCE UNITS LAB L501.0100 74-106 mg/dL Normal GLU 93 Result Comment: Please note revised GLUCOSE reference range effective 2017. LAB L501.1000 7-18 mg/dL High BUN 19 LAB L501.1100 0.55-1.02 mg/dL High CREAT,SERUM 1.24 Result Comment: The validity of the calculated GFR AND GFRAA in patients over 70 years has not been determined. Clinical correlation is essential. LAB L501.1110 >60 mL/min Low EST GFR 46 Result Comment: Non- GFR Calc LAB L501.1115 >60 mL/min Low EST GFR - AA 55 Result Comment: GFR Calc LAB L501.1300 10-20 RATIO Normal BUN/CRE 15.3 LAB L501.1800 3.2-5.0 g/dL Normal ALB 3.4 LAB L501.2200 8.5-10.1 mg/dL CA Normal 8.9 LAB L501.2300 2.5-4.9 mg/dL Normal PHOS 2.8 LAB L501.5300 136-145 mmol/L NA Normal 139 LAB L501.5600 3.5-5.1 mmol/L K Normal 4.4 LAB L501.5900 98-107 mmol/L CL Normal 103 LAB L501.6100 21.0-32.0 mmol/L Normal CO2 28.0 Performed By: #### L500.3600 #### [facility] [address] [place] [place], [address] PTHIN Collected: 04/23/2018 Status: F Source: [place] 9:16 AM [facility] REPOSITORY TYPE CODE TESTS RESULT OUT OF RANGE REFERENCE UNITS LAB L509.1000 18.4-80.1 pg/mL Normal PTHIN 51.5 Performed By: #### L509.1000 #### [facility] [address] [facility] [address] [place], [place], [address] VITAMIN D,25 HYDROXY Collected: 04/23/2018 Status: F Source: [place] 9:16 AM [facility] REPOSITORY TYPE CODE TESTS RESULT OUT OF RANGE REFERENCE UNITS LAB L506.1000 29.95-100.01 ng/mL Normal Vitamin D 69.4 25-OH Result Comment: Vitamin D 25(OH) Status Range Deficiency <20 ng/mL (50nmol/L) Insuffciency 20 - 30 ng/mL (50 - 75 nmol/L) Sufficiency 30 - 100 ng/mL (75 - 250 nmol/L) Toxicity >100 ng/mL (>250 nmol/L) Performed By: #### L506.1000 #### [facility] [address] [facility] [place], [address] DOWNTIME REPORT Observed: 04/21/2018 Status: F Source: [place] 2:07 PM [facility] REPOSITORY [facility] Medical Records Department [address] [place] [address] Downtime Report MR#: [id number] Acct: [id number] Name: ELIZABETH HOPE Rep #: [id number] : 1950 67 From: Alon Parra PCP: Eli Bowman NP Status: REG RCR This patient was seen during an EMR downtime April 04, 2018 - April 11, 2018. This patient may have a combination of paper and electronic documentation or all paper documentation. All documentation is viewable within the e-chart portion of [facility] for each patient visit. NCS AND/OR EMG Observed: 04/12/2018 Status: F Source: [place] PATIENT 10:05 AM [facility] REPOSITORY [facility] Pulmonary Services/Neurology [address] [place] [address] MR#: [id number] Acct: [id number] Name: ELIZABETH HOPE Rep #: [id number] : 1950 67 From: Kal Hernandez MD Referring Dr: Eli Bowman NP Status: REG CLI Ordering Dr: Date: Location: [facility] Sex: F C NCS and/or EMG Patient Report Ordering Doctor: Eli Bowman DATE OF SERVICE: 04/12/18 This is a bilateral lower extremity nerve conduction study and a left lower extremity EMG performed on this 67-year-old female with a history of well- controlled diabetes, for the past several months has had bilateral lower extremity pain worse on the left side with weakness and falls. Still has chronic back pain. She describes that her legs suddenly give out without pain. Neurologic examination is nonfocal with intact reflexes however she does have mild hammertoe deformities. Bilateral lower extremity sensory and motor nerve conduction study is performed. The motor conduction velocities bilaterally are slowed worse on the right side from the common peroneal and tibial nerves which also demonstrate mild reduction of amplitude and mild prolongation of distal latencies. The tibial H reflex responses bilaterally are reduced, the sural sensory responses bilaterally are intact. The tibial and peroneal F-wave latencies bilaterally are intact. Left lower extremity needle electromyography is performed. Muscles evaluated included the extensor digitorum brevis, abductor hallucis, medial gastrocnemius, anterior tibialis, vastus lateralis, and vastus medialis muscles. All muscles demonstrated normal insertional activity with absence of pathologic spontaneous activity. Motor unit potential recruitment pattern and amplitude was normal in all muscles tested. Impression: Abnormal electrophysiologic study of the bilateral lower extremities consistent with primarily motor length dependent polyneuropathy. 04/12/18 1005 <Electronically signed by Kal Hernandez MD> Date Kal Hernandez MD CC: Eli Bowman ANNUAL GREENHOUSE MANAGER; Kal Hernandez MD Date Dictated: 04/12/18949 Date Transcribed: 04/12/18949 [employer]essen Goods Stock Clerk: NF Signed PT D/C SUMMARY (1) Observed: 02/01/2018 Status: F Source: [place] 8:23 AM [facility] REPOSITORY [facility] Physical [facility] [address] [place] [address]. [address] [place], [place] [address] Fax REHABILITATION SERVICES DISCHARGE SUMMARY MR#: [id number] Acct: [id number] Name: ELIZABETH HOPE Rep #: [id number] : 1950 67 From: Cristopher Francis PT, ATC Referring DrJose: Mayda Dobbins DO Status: REG RCR Insurance: MEDICARE PART A B PHYSICIAN MUTUAL INS CO HP - PT D/C Summary It has been my pleasure to treat ELIZABETH HOPE under orders from DR.KFEARO Jenny for the diagnosis of LBP with radiculopathy for a total of 7 visit(s). Discharge Date: Please see the following information for a summary of their discharge status. - Subjective Subjective: The LBP is now gone, but pt notes her neuropathy is really bad and makes her feel unsteady. - [...] IADL's Goal Progress: Goal Met Goal 2:: Increase B LE strength x 1 grade to aid with gait tolerance Goal Progress: Goal Met Goal 3:: I with HEP Goal Progress: Goal Met - Plan Plan: Discharge - D/C Information If there are questions or concerns regarding this patient's physical therapy, please feel free to call me at [phone]. Thank you for the referral of this patient. Sincerely, Cristopher Francis PT, <Electronically signed by Cristopher Francis PT, ATC> 02/01/18 0823 CC: Eli Bowman ANNUAL GREENHOUSE MANAGER; Mayda Dobbins DO [facility] Signed INITAL EVALUATION (1) Observed: 12/30/2017 Status: F Source: [place] Casanova PT 10:56 AM [facility] REPOSITORY [facility] Physical [facility] [address] [place] [address] Fax REHABILITATION SERVICES INITIAL EVALUATION MR#: [id number] Acct: [id number] Name: ELIZABETH HOPE Rep #: [id number] : 1950 67 From: Cristopher Francis PT, ATC Referring Dr.: Mayda Dobbins DO Status: REG RCR Insurance: MEDICARE PART A B PHYSICIAN MUTUAL INS CO Patient's Visit Information ELIZABETH HOPE is a 67 year old F referred to Physical Therapy by Mayda Dobbins DR.KFEARO with a diagnosis of LBP with radiculopathy. Date of Evaluation: 12/30/17 Physical Therapist: Cristopher Francis PT, - Visit Plan Frequency: 2-3x /Week Duration: 4-6 Weeks Plan: SKTC/DKTC, core strengthening, B LE strengthening, balance and proprio ex's, nustep, HEP - Subjective Subjective: Pt reports she has been having LE weakness for a couple months. 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 Pt reports she also has LBP which she recently received an injection [...] notes picking up her grandchildren is difficult secondary to LE weakness. No recent Dx tests. Pt reports walking for a prolonged distance increases her LBP. Pt also notes lifting her grandchildren increases her pain. LBP is currently 5/10, but increases to 10/10 at worst. - Pain LBP Pain Intensity (Out of 10): 5 Pain Intensity Range: 10 - Objective Neuro: B LE sensation is WNL to light touch. B achilles reflex 1/3. LE MMT: B LE's are grossly 3+/5 througout. LS ROM: Unable to safely test secondary to pt having menieres disease and poor balance. repeated movements: hooklying SKTC/DKTC 3x10 sec ea alleviates LBP - Goals Goal 1:: Decrease LBP x 50% to aid with IADL's Goal Time Frame: 4-6 Weeks Goal 2:: Increase B LE strength x 1 grade to aid with gait tolerance Goal Time Frame: 4-6 Weeks Goal 3:: I with HEP Goal Time Frame: 4-6 Weeks - Rehabilitation Potential Physical Therapy Diagnosis: Pt has LBP, LE weakness, and decreased balance secondary to deg changes in the L/S Rehabilitation Potential: Good - Anticipated Interventions Patient/Client Instruction: Educate patient on: Condition, Plan of Care For the Purpose of:: To improve self management Therapeutic Exercise to Include: Strength training, Endurance training, Balance training, Postural training, Active ROM, Dynamic Lumbar Stabilization For the Purpose of:: To decrease pain, To increase ROM, To improve muscle performance and motor function Cryotherapy (ice pack, ice massage): Yes Thermo therapy (hot pack): Yes For the Purpose of:: To decrease pain Thank you for the opportunity to evaluate your patient. For Medicare and Medicare HMO plans, please review the plan of care and approve it. It will need to be FAXED BACK to us at [phone] for Medicare purposes. Please let me know if there are questions or concerns regarding this plan of care. Physician Signature: Date: <Electronically signed by Cristopher Francis PT, ATC> 12/30/17 1056 CC: Eli Bowman ANNUAL GREENHOUSE MANAGER; Mayda Dobbins DO [facility] Signed For Medicare only, by signing this I certify the plan of care. Physicians Signature Date ALLERGIES ALLERGIES DATE TYPE / CODE NAME / CODE REACTION SEVERITY SOURCE 10/04/2017 Drug succinylchol MUSCLE CONTRACTED Unknown [place] [facility] Allergy/4160 ine/[id number] Hospital 23880(SNOMED 90(RXNORM) Repository CT) ENCOUNTERS ENCOUNTERS ADMIT/DISCHARGE ACCOUNT ADMITTING ENCOUNTER LOCATION SOURCE NUMBER CLASS 09/30/2018 [id number] Ambulatory [facility] 1 [facility] ing:MFPLAB Repository 09/05/2018 [id number] Ambulatory [place] John 0 [facility] ing:CVS Repository 08/05/2018 [id number] Ambulatory [place] 0 [facility] ing:NS Repository 08/01/2018 [id number] Ambulatory John John 0 [facility] ing:CT Repository 07/29/2018 [id number] Ambulatory [place] John 6 [facility] ing:HPRAD Repository 07/11/2018 [id number] Ambulatory John [place] 7 [facility] ing:BHIOP Repository 07/11/2018/ [id number] Ambulatory [place] 8 4 [facility] ing:BHIOP Repository 07/08/2018/ [id number] Ambulatory John John 8 8 [facility] ing:NS Repository 05/11/2018 [id number] Ambulatory [facility] 2 [facility] ing:DC Repository 04/26/2018/ [id number] Ambulatory [place] John 8 3 [facility] ing:DC Repository 04/23/2018 [id number] Ambulatory [place] [facility] ing:LAB Repository 04/12/2018 [id number] Ambulatory [place] [facility] ing:PSN Repository 04/05/2018/ [id number] Ambulatory John [place] [address] [facility] ing:NS Repository 03/24/2018/ [id number] Ambulatory [place] John [address] [facility] ing:DC Repository 02/15/2018/ [id number] Ambulatory John John [address] [facility] ing:NS Repository 02/01/2018/ [id number] Ambulatory John John [address] [facility] ing:PT Repository 01/11/2018/ [id number] Ambulatory John [place] [address] [facility] ing:NS Repository 12/23/2017/ [id number] Ambulatory [place] [address] [facility] ing:NS Repository PAYERS PAYERS ENCOUNTER GUARANTOR PAYER SUBSCRIBER SOURCE 09/30/2018 ELIZABETH A Primary ELIZABETH A John [id number] TR Insurance:[facility]ICARE [facility] [address] [address]Uei: Number: Repository [id number] (HP) Date:2018-09-30 09/30/2018 Secondary ELIZABETH A John Insurance:PHYSICIAN CORTEZDOB: [facility] [id number] Number: Repository [id number] Date:5487-28-[address] [address]JW: 09/30/2018 Tertiary NOT GIVENUNK John Insurance:SELF PAY [facility] Number: Effective Repository Date:2018-09-30 09/05/2018 ELIZABETH A Primary ELIZABETH A John [id number] TR Insurance:MEDICARE [facility] [address] [address]Ngj: Number: Repository [id number] (HP) Date:2018-07-29 09/05/2018 Secondary ELIZABETH A John Insurance:PHYSICIAN CORTEZDOB: Community MUTUAL INS [facility] [id number] Hospital Number: Repository [id number] Date:7553-93-90BI [address] [address]PH: 09/05/2018 Tertiary NOT GIVENUNK [place] Insurance:SELF PAY [facility] Effective Repository Date:2018-07-29 08/05/2018 Elizabeth A Primary Elizabeth A [place] [id number] TR Insurance:MEDICARE CortezDOB: [address] [id number] [facility] , [place] [address]Bin: Number: Repository [id number] () Date:2018-04-05 08/05/2018 Secondary Elizabeth A [place] Insurance:PHYSICIAN CortezDOB: [facility] [id number] Hospital Number: Repository [id number] Date:9722-39-63DY [address] [address]WE: 08/05/2018 Tertiary NOT GIVENUNK John Insurance:SELF PAY [facility]: Effective Repository Date:2018-08-01 08/01/2018 Elizabeth A Primary Elizabeth A [place] [id number] TR Insurance:MEDICARE MartinDOB: [address] [id number] [facility] , [place] [address]Wce: Number: Repository [id number] (HP) Date:2018-08-01 08/01/2018 Secondary Elizabeth A [place] Insurance:PHYSICIAN CortezDOB: [facility] INS [facility] [id number] Hospital Number: Repository [id number] Date:0200-91-88HJ [address] [address]QF: 08/01/2018 Tertiary NOT GIVENUNK [place] Insurance:SELF PAY [facility] Number: Effective Repository Date:2018-08-01 07/29/2018 Elizabeth A Primary Elizabeth A [place] [id number] TR Insurance:MEDICARE MartinDOB: [address] [id number] [facility] , [place] [address]Xkz: Number: Repository [id number] (HP) Date:2018-07-29 07/29/2018 Secondary Elizabeth A John Insurance:PHYSICIAN CortezDOB: [facility] [id number] Hospital Number: Repository [id number] Date:3867-05-07OB [address] [address]SF: 07/29/2018 Tertiary NOT GIVENUNK [place] Insurance:SELF PAY [facility] Number: Effective Repository Date:2018-07-29 07/11/2018 Elizabeth A Primary Elizabeth A John [id number] TR Insurance:MEDICARE WellstonDOB: [address] [id number] [facility] , [place] [address]Sye: Number: Repository [id number] (HP) Date:2018-07-11 07/11/2018 Secondary Elizabeth A John Insurance:PHYSICIAN CortezDOB: [facility] [id number] Hospital Number: Repository [id number] Date:2468-43-66GF [address] [address]CD: 07/11/2018 Tertiary NOT GIVENUNK John Insurance:SELF PAY [facility] Number: Effective Repository Date:2018-07-11 07/11/2018 Elizabeth A Primary Elizabeth A [place] [id number] TR Insurance:MEDICARE MartinDOB: [address] [id number] [facility] , [place] [address]Vse: Number: Repository [id number] (HP) Date:2018-07-11 07/11/2018 Secondary Elizabeth A John Insurance:PHYSICIAN CortezDOB: [facility] [id number] Hospital Number: Repository [id number] Date:8138-84-28IV [address] [address]UE: 07/11/2018 Tertiary NOT GIVENUNK John Insurance:SELF PAY [facility] Number: Effective Repository Date:2018-07-11 07/08/2018 ELIZABETH A Primary ELIZABETH A John [id number] TR Insurance:MEDICARE MARTINDOB: [address] , [place] [address]Kdq: Number: Repository [id number] (HP) Date:2018-04-05 07/08/2018 Secondary ELIZABETH A [place] Insurance:PHYSICIAN GALEB: Community MUTUAL INS [facility] [id number] [place] [address] Number: Repository [id number] Date:5738-18-68FF [address] [address]JD: 07/08/2018 Tertiary NOT GIVENUNK [place] Insurance:SELF PAY [facility] Number: Effective Repository Date:2018-05-01 05/11/2018 Elizabeth A Primary Elizabeth A [place] [id number] TR Insurance:MEDICARE CortezDOB: [address] , [place] [address]Xhd: Number: Repository [id number] (HP) Date:2017-12-01 05/11/2018 Secondary Elizabeth A [place] Insurance:PHYSICIAN GaleB: Community MUTUAL INS [facility] [id number] Hospital Number: Repository [id number] Date:7162-01-81AO [address] [address]NF: 05/11/2018 Tertiary NOT GIVENUNK John Insurance:SELF PAY [facility] Number: Effective Repository Date:2018-05-01 04/26/2018 Elizabeth A Primary Elizabeth A John [id number] TR Insurance:MEDICARE CortezDOB: [place] [address] , [place] [address]Ruf: Number: Repository [id number] (HP) Date:2017-12-01 04/26/2018 Secondary Elizabeth A John Insurance:PHYSICIAN GaleB: [address] Number: Repository [id number] Date:3275-10-75QO [address] [address]OG: 04/26/2018 Tertiary NOT GIVENUNK [place] Insurance:SELF PAY [facility] Number: Effective Repository Date:2018-04-01 04/23/2018 Elizabeth A Primary Elizabeth A John [id number] TR Insurance:MEDICARE WellstonDOB: [address] [address]Etj: Number: Repository [id number] (HP) Date:2018-04-23 04/23/2018 Secondary Elizabeth A [place] Insurance:PHYSICIAN GaleB: [address] Number: Repository [id number] Date:1662-86-56EK[address] [address]MH: 04/23/2018 Tertiary NOT GIVENUNK John Insurance:SELF PAY [facility] Number: Effective Repository Date:2018-04-23 04/12/2018 Elizabeth A Primary Elizabeth A John [id number] TR Insurance:MEDICARE CortezDOB: [address] [address]Cnd: Number: Repository [id number] (HP) Date:2018-01-03 04/12/2018 Secondary Elizabeth A John Insurance:PHYSICIAN CortezDOB: [address] Number: Repository [id number] Date:1007-86-82NZ [address] [address]LI: 04/12/2018 Tertiary NOT GIVENUNK [place] Insurance:SELF PAY [facility] Number: Effective Repository Date:2018-01-03 04/05/2018 Elizabeth A Primary Elizabeth A John [id number] TR Insurance:[facility]ARE [facility] [address] [address]Fue: Number: Repository [id number] (HP) Date:2018-04-05 04/05/2018 Secondary Elizabeth A John Insurance:PHYSICIAN CortezDOB: [facility] MUTUAL INS [facility] [id number] [place] [address] Number: Repository [id number] Date:8653-47-43[address] [address]MC: 04/05/2018 Tertiary NOT GIVENUNK [place] Insurance:SELF PAY [facility] Number: Effective Repository Date:2018-04-05 03/24/2018 Elizabeth A Primary Elizabeth A John [id number] Insurance:MEDICARE CortezDOB: [address] [id number] , [place] [address]San: Number: Repository [id number] (HP) Date:2017-12-01 03/24/2018 Secondary Elizabeth A John Insurance:PHYSICIAN CortezDOB: [facility] [id number] [place] [address] Number: Repository [id number] Date:4506-19-79UU [address] [address]RQ: 03/24/2018 Tertiary NOT GIVENUNK John Insurance:SELF PAY [facility] Number: Effective Repository Date:2018-03-01 02/15/2018 Elizabeth A Primary Elizabeth A John [id number] Insurance:MEDICARE CortezDOB: [address] [id number] [facility] , [place] [address]Rhy: Number: Repository [id number] (HP) Date:2017-12-01 02/15/2018 Secondary Elizabeth A John Insurance:PHYSICIAN CortezDOB: [address] [place] [address] Number: Repository [id number] Date:7892-94-07ZF [address] [address]YM: 02/15/2018 Tertiary NOT GIVENUNK John Insurance:SELF PAY [facility] Number: Effective Repository Date:2018-01-30 02/01/2018 Elizabeth A Primary Elizabeth A John [id number] Insurance:MEDICARE WellstonDOB: [address] [id number] , [place] [address]Zjp: Number: Repository [id number] (HP) Date:2005-12-02 02/01/2018 Secondary Elizabeth A John Insurance:PHYSICIAN CortezDOB: [facility] [id number] [place] [address] Number: Repository [id number] Date:6226-88-64XU [address] [address]RZ: 02/01/2018 Tertiary NOT GIVENUNK [place] Insurance:SELF PAY [facility] Number: Effective Repository Date:2017-12-24 01/11/2018 Elizabeth A Primary Elizabeth A John [id number] Insurance:MEDICARE CortezDOB: [address] [id number] [facility] , [place] [address]Jig: Number: Repository [id number] (HP) Date:2017-12-01 01/11/2018 Secondary Elizabeth A John Insurance:PHYSICIAN GaleB: [facility] [id number] [place] [address] Number: Repository [id number] Date:2784-02-71WL [address] [address]RC: 01/11/2018 Tertiary NOT GIVENUNK John Insurance:SELF PAY [facility] Number: Effective Repository Date:2017-12-30 12/23/2017 Elizabeth A Primary Elizabeth A [place] [id number] Insurance:MEDICARE WellstonDOB: [facility] [id number] Number: Repository , [place] [address]Lhy: [id number] Date:2017-12-01 (HP) 12/23/2017 Secondary Elizabeth A [place] Insurance:PHYSICIAN GaleB: [place] [id number] [place] [address] Number: Repository [id number] Date:6809-65-13[address] [address]XQ: 12/23/2017 Tertiary NOT GIVENUNK [place] Insurance:SELF PAY [facility] Number: Effective Repository Date:2017-12-01
== END ==
PROVIDERS: Family Provider Family Medicine; PCP Family Medicine; Visit Provider Family Medicine
DX: I10 Essential (primary) hypertension (principal); E11.9 Type 2 diabetes mellitus without complications; E03.9 Hypothyroidism, unspecified; G62.9 Polyneuropathy, unspecified; E55.9 Vitamin D deficiency, unspecified
CPT/HCPCS: 36415; 80053; 81001; 82043; 82306; 82570; 82607; 83036; 84425; 84439; 84443; 85025

== ENCOUNTER → 2018-10-28 08:32 | Outpatient (CLI) | payer MEDICARE, OTHER, SELFPAY ==
[2018-10-28 12:51] LABS: Vitamin D,25 Hydroxy 64.8 ng/mL (29.95-100.01)
[2018-10-28 13:07] LABS: ALB/GLOB Ratio 0.6 RATIO (0.9-2.4); AST(SGOT) 20 U/L (15-37); Alanine Aminotransfer ALT/SGPT 25 U/L (13-56); Albumin, Serum 3.2 g/dL (3.2-5.0); Alkaline Phosphatase 82 U/L (45-117); Anion Gap 14 (5-15); BUN 15 mg/dL (7-18); BUN/Creat Ratio 11.1 RATIO (10-20); Calcium,Total 9.1 mg/dL (8.5-10.1); Chloride 99 mmol/L (98-107); Creatinine, Serum 1.35 mg/dL (0.55-1.02); EST Glomerular Filtration Rate 41 mL/min (>60); Est Glom Filt Rate - Afr Amer 50 mL/min (>60); Glucose 66 mg/dL (74-106); Potassium 3.9 mmol/L (3.5-5.1); Protein, Total 8.2 g/dL (6.4-8.2); Sodium Level 136 mmol/L (136-145); T4 Free Direct 1.22 ng/dL (0.76-1.46); Thyroid Stim Hormone (TSH) 2.03 uIU/mL (0.358-3.74)
== END ==
PROVIDERS: Family Provider Family Medicine; PCP Family Medicine; Visit Provider Family Medicine
DX: E03.9 Hypothyroidism, unspecified (principal); E55.9 Vitamin D deficiency, unspecified; E11.9 Type 2 diabetes mellitus without complications
CPT/HCPCS: 36415; 80053; 82306; 84439; 84443

== ENCOUNTER → 2018-11-10 15:01 | Outpatient (CLI) | payer MEDICARE, OTHER, SELFPAY ==
[2018-11-10 17:38] LABS: Absolute Lymphocyte Count 2.76 X10^3/ul (0.83-4.51); Absolute Neutrophil Count 2.9 X10^3/uL (2.0-7.7); Basophil# 0.04 X10^3/uL; Basophil% 0.6 % (0-1); Eosinophil# 0.28 X10^3/uL; Eosinophils% 3.9 % (0-5); Hematocrit 42.9 % (37-47); Lymphocyte # 2.76 X10^3/ul (4.0); Mean Corp Hgb Conc 32.6 g/gl (32-36); Mean Corpuscular Hgb 31.5 pg (27.0-32.0); Mean Corpuscular Volume 96.4 fL (81-99); Monocyte# 1.27 X10^3/uL; Monocyte% 17.5 % (0-10); Neutrophil # 2.88 X10^3/uL (2.7-7.7); Neutrophil % 39.6 % (47-70); Platelet Count 307 K/mm3 (150-450); RBC Distribution Width CV 12.9 % (11.6-14.6); RBC Distribution Width SD 44.3 fl (35.1-43.9); Red Blood Count 4.45 M/mm3 (4.2-5.4); White Blood Count 7.3 K/mm3 (4.4-11.0)
[2018-11-10 17:41] LABS: POSITIVE COUNT NO; POSITIVE DIFFERENTIAL NO; POSITIVE MORPHOLOGY NO
== END ==
PROVIDERS: Family Provider Family Medicine; PCP Family Medicine; Visit Provider Nurse Practitioner Family
DX: B37.0 Candidal stomatitis (principal)
CPT/HCPCS: 36415; 85025

== ENCOUNTER → 2018-12-20 16:30 | Outpatient (CLI) | payer MEDICARE, OTHER, SELFPAY | PROVIDERS: Family Provider Family Medicine; PCP Family Medicine; Referring Provider Urology; Visit Provider Urology | DX: R30.0 Dysuria (principal) | CPT/HCPCS: 87077; 87086; 87088; 87186 ==

== ENCOUNTER → 2018-12-27 08:44 | Outpatient (CLI) | payer MEDICARE, OTHER, SELFPAY ==
[2018-12-27 11:20] LABS: Vitamin D,25 Hydroxy 54.2 ng/mL (29.95-100.01)
[2018-12-27 13:10] LABS: ALB/GLOB Ratio 0.9 RATIO (0.9-2.4); AST(SGOT) 28 U/L (15-37); Alanine Aminotransfer ALT/SGPT 26 U/L (13-56); Albumin, Serum 3.8 g/dL (3.2-5.0); Alkaline Phosphatase 74 U/L (45-117); Anion Gap 13 (5-15); BUN 16 mg/dL (7-18); BUN/Creat Ratio 10.5 RATIO (10-20); Calcium,Total 9.1 mg/dL (8.5-10.1); Chloride 100 mmol/L (98-107); Creatinine, Serum 1.52 mg/dL (0.55-1.02); EST Glomerular Filtration Rate 36 mL/min (>60); Est Glom Filt Rate - Afr Amer 43 mL/min (>60); Globulin 4.3 g/dL (2.2-4.2); Glucose 88 mg/dL (74-106); Potassium 4.9 mmol/L (3.5-5.1); Protein, Total 8.1 g/dL (6.4-8.2); Sodium Level 140 mmol/L (136-145); T4 Free Direct 1.16 ng/dL (0.76-1.46); Thyroid Stim Hormone (TSH) 3.45 uIU/mL (0.358-3.74)
== END ==
PROVIDERS: Family Provider Family Medicine; PCP Family Medicine; Referring Provider Family Medicine; Visit Provider Family Medicine
DX: E03.9 Hypothyroidism, unspecified (principal); E11.9 Type 2 diabetes mellitus without complications; E55.9 Vitamin D deficiency, unspecified
CPT/HCPCS: 36415; 80053; 82306; 83036; 84439; 84443

== ENCOUNTER → 2018-12-30 10:00 | Outpatient (CLI) | payer MEDICARE, OTHER, SELFPAY ==
--- NOTE | 2018-12-30 10:06 | US_ITS ---
STUDY: RENAL ULTRASOUND - COMPLETE REASON FOR EXAM: Female, 68 years old. Hematuria TECHNIQUE: Ultrasound evaluation of the kidneys was performed with real-time and static oakley-scale imaging. COMPARISON: 08/04/2016 FINDINGS: RIGHT KIDNEY: Normal location of the right kidney, which is normal in size. The right kidney measures 9.3 x 4.3 x 4.2 cm. There is a normal cortex of the right kidney. The renal cortex measures 1.6 cm. Anechoic cyst of the superior right kidney measures 1 cm with posterior acoustic enhancement. Small shadowing calculi of the right kidney measuring 1 cm in the upper pole and 1.1 cm in the inferior pole. There is no right hydronephrosis. DISTAL RIGHT URETER: There is non-visualization of the distal right ureter. There is no demonstrated right ureterovesical junction calculus. There is a visualized right ureteral jet. LEFT KIDNEY: Normal location of the left kidney, which is normal in size. The left kidney measures 9.5 x 5.6 x 4.5 cm. There is a normal cortex of the left kidney. The renal cortex measures 1.5 cm. There is no left renal mass or cyst. There are no left renal calculi. There is no left hydronephrosis. DISTAL LEFT URETER: There is non-visualization of the distal left ureter. There is no demonstrated left ureterovesical junction calculus. There is a visualized left ureteral jet. BLADDER: The urinary bladder is not well-distended. There is no demonstrated mass within the urinary bladder. There are no demonstrated bladder calculi. US/Kidney and Bladder IMPRESSION: 1. No hydronephrosis. Right nephrolithiasis. 2. 1 cm simple right renal cyst. Electronically Signed: Roman Doss MD at 10:22 EST , Service support ,
== END ==
PROVIDERS: Family Provider Family Medicine; PCP Family Medicine; Referring Provider Urology; Visit Provider Urology
DX: I12.9 Hypertensive chronic kidney disease with stage 1 through stage 4 chronic kidney disease, or unspecified chronic kidney disease (principal); N18.3 Chronic kidney disease, stage 3 (moderate); R31.9 Hematuria, unspecified
CPT/HCPCS: 76770

== ENCOUNTER → 2019-01-06 08:39 | Outpatient (CLI) | payer MEDICARE, OTHER, SELFPAY ==
--- NOTE | 2019-01-06 08:41 | RDU_ITS ---
Reason For Study: HYPERTENSION Right Renal Artery Left Renal Artery Right renal artery ostium Left renal artery ostium 98.2/22.7 110.0/22.8 RSV/EDV. PSV/EDV. Right renal artery proximal Left renal artery proximal PSV/EDV 100.0/19.0 PSV/EDV. 96.3/20.9 . Right renal artery mid 100.0/23.2 Left renal artery mid 92.0/17.2 PSV/EDV. PSV/EDV . Right renal artery distal Left renal artery distal 90.8/20.2 109.0/25.7 PSV/EDV. PSV/EDV. Right Renal Parenchyma Left Renal Parenchyma Upper Pole Medula 19.9/7.0 PSV/EDV. Left upper pole medulla 25.1/6.4 Right upper pole medulla EDR .35 . PSV/EDV . Right upper pole medulla R.I. .65 . Left upper pole medulla EDR .25 . Upper Jalen Cortx 23.2/7.3 PSV/EDV. Left upper pole medulla R.I. .74 . Right upper pole cortex EDR .31 . UP Cortex 17.4/6.1 PSV/EDV. Right upper pole cortex R.I. .68 . Left upper pole cortex EDR .35 . Right lower Pole medulla 21.4/4.6 Left upper pole cortex R.I. .65 . PSV/EDV . Left lower Pole medulla 22.9/7.6 Right lower pole medulla EDR .21 . PSV/EDV . Right lower pole medulla R.I. .79 . Left lower pole medulla EDR .33 . Lower Pole Cortex 15.9/6.1 PSV/EDV. Left lower pole medulla R.I. .67 . Right lower pole cortex EDR .38 . Lower Pole Cortx 13.8/4.0 PSV/EDV. Right lower pole cortex R.I. .62 . Left lower pole cortex EDR .29 . Right Renal Hilar Left lower pole cortex R.I. .71 . Right Hilar avg 38.2/8.3 PSV/EDV. Left Renal Hilar Right hilar acceleration time 51 LT Hilar avg 34.2/8.9 PSV/EDV . m/sec. Left hilar acceleration time 59 Right Renal Dimensions m/sec. Right kidney size 10.0 cm . Left Renal Dimensions Right cortical dimension 1.5 cm . Left kidney size 8.7 cm . Left cortical dimension 1.5 cm . Aorta Proximal abdominal aorta 1.5 X 1.6 cm . Distal abdominal aorta 1.2 X 1.2 cm . Proximal abdominal aorta peak systolic velocity is 137 cm/sec . Distal abdominal aorta peak systolic velocity is 214 cm/sec . Interpretation Summary Dimensions of the intra-abdominal aorta appear normal, without evidence of aneurysmal dilatation. Renal artery velocities are bilaterally normal. Acceleration times are normal bilaterally. There is no evidence of hemodynamically significant renal artery stenosis on either side. Cortical dimensions are bilaterally normal. The right kidney is normal in size. The left kidney is small in size. Ordering Physician: Gm Flores Referring Physician: Gm Flores Performed By: Noelle Guerrero RVT
== END ==
PROVIDERS: Family Provider Family Medicine; PCP Family Medicine; Referring Provider Family Medicine; Visit Provider Family Medicine
DX: I12.9 Hypertensive chronic kidney disease with stage 1 through stage 4 chronic kidney disease, or unspecified chronic kidney disease (principal); N18.3 Chronic kidney disease, stage 3 (moderate)
CPT/HCPCS: 93975

== ENCOUNTER → 2019-01-27 09:06 | Outpatient (CLI) | payer MEDICARE, OTHER, SELFPAY ==
[2019-01-27 10:24] LABS: Anion Gap 5 (5-15); BUN 18 mg/dL (7-18); BUN/Creat Ratio 12.7 RATIO (10-20); Chloride 102 mmol/L (98-107); Creatinine, Serum 1.42 mg/dL (0.55-1.02); EST Glomerular Filtration Rate 39 mL/min (>60); Est Glom Filt Rate - Afr Amer 47 mL/min (>60); Glucose 135 mg/dL (74-106); Sodium Level 135 mmol/L (136-145)
== END ==
PROVIDERS: Family Provider Family Medicine; PCP Family Medicine; Referring Provider Family Medicine; Visit Provider Family Medicine
DX: N18.3 Chronic kidney disease, stage 3 (moderate) (principal)
CPT/HCPCS: 36415; 80048

== ENCOUNTER 2019-02-21 12:30 | Outpatient (RCR) | payer MEDICARE, OTHER, SELFPAY ==
--- NOTE | 2019-01-27 10:25 | HP.PTEVAL ---
Patient's Visit Information ELIZABETH HOPE is a 68 year old F referred to Physical Therapy by Gm Flores MD with a diagnosis of vertigo. Date of Evaluation: 01/27/19 Physical Therapist: Sixto Broderick, DPT, OCS, CSCS - Visit Plan Frequency: 1-2x /Week Duration: 4-6 Weeks Plan: 1-2x/week for positional interventions as helpful, habituation if needed and balance education and treatment. Next session check positional and treat, MSQ if needed and balance check as needed. - Subjective Findings: Had vertigo for years, has meiniers and had shunt put in L ear after therapy failed. Balance and hearing L side gone. That helped a little bit with her dizzyness but balance is poor. Now dizzyness worsening adn may have the problem in her R ear. Takes ativan. Described as spinning and LOB, it lasts a couple minutes. feels wierd in head all the time and has for years. lying in bed will also cause spin. Uses walker wehn on grass but doesnt need AD on firm surface. Falls now and then usualy when bending over. She could hold on if this is happening but did not...unsure of why she didn't. Sleep is OK with CPAP. 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 It is hard to keep up with them. No regualar exercises. Not employed on disability due to Mienieres. Can dress self and do basic's but has to be careful. Has shower chair. Steps to exit with rails whcih are needed. No low salt diet. - Objective Walks with arms out to side and wobbly, turns slow adn no head movement. Transfer mod with UE. Steps need rails. Poor balance overall. Sensation In LE very diminished to gross light touch especcially distally. Strength LE 4/5. reflexes 1/3 patella and achilles. coordination in ankles is at deficit to reciprocal tapping. hard time moving head and walking. - L hallpike, + R hallpike for dizzyness x 40 seconds asymmetrical vs L. Treated with R Benoit adn felt better after session. Overall very unsafe with gait. Better with wh walker. Needs to use this at all times. - Balance Scores Functional Gait Assessment Score: 13 % Disability: 56.6700 CATSIB Score (Max score 120 seconds): 32 - Goals Goal 1:: Abolish dizzyness with positional change, minimize woozyness in head Goal Time Frame: 4-6 Weeks Goal 2:: Patient I in 100% compliant with wh walker Goal Time Frame: 4-6 Weeks Goal 3:: FGA improved to 16/30 to show improved balacne. Goal Time Frame: 4-6 Weeks Goal 4:: Pt feel 50% improved in balance and woozyness Goal Time Frame: 4-6 Weeks - Rehabilitation Potential Physical Therapy Diagnosis: vertigo, h/o Mienieres, possible postiional, balance deficits multifactorial Rehabilitation Potential: Questionable - Anticipated Interventions Patient/Client Instruction: Educate patient on: Condition, Plan of Care, Risk Factors For the Purpose of:: To improve safety with gait Therapeutic Exercise to Include: Balance training Comment: postional and vestibular interventions. For the Purpose of:: To increase tolerance to activity/condition/position, To improve balance Thank you for the opportunity to evaluate your patient. For Medicare and Medicare HMO plans, please review the plan of care and approve it. It will need to be FAXED BACK to us at [phone] for Medicare purposes. For Medicare only, by signing this I certify the plan of care. Please let me know if there are questions or concerns regarding this plan of care. Physician Signature: Date:
--- NOTE | 2019-02-21 12:59 | HP.PTDCSUM ---
HP - PT D/C Summary It has been my pleasure to treat ELIZABETH HOPE under orders from Gm Flores MD, for the diagnosis of vertigo for a total of 4 visit(s). Discharge Date: 02/21/19 Please see the following information for a summary of their discharge status. - Subjective Subjective: Doing exc at home 1x/day. Ex is not worsening. Overall improving but today is bad due to weather change. Using wh walker 100% wihtout incident. Can lie in bed without a problem now. Some better overall at 20%. Saw doctor this am who bumped up gabapentin and wants her to see ENT Dr. Reeves. Costant spinning feeling always present for last several years. - Overall Improvement % Improvement: 60 - Objective Objective/Function: FGA is same, dizzyness is not improving. - positional testing today. Patient still needs to use wh walker at all times and understands this. Due to lack of expected improvement, recommend seeing ENT as ordered adn returning if ordered by ENT. A t this point, may be appropriate for cotninued balance work if ordered by ENT despite lack of progress. - Goals Goal 1:: Abolish dizzyness with positional change, minimize woozyness in head Goal Progress: Not Progressing Goal 2:: Patient I in 100% compliant with wh walker Goal Progress: Goal Met Goal 3:: FGA improved to 16/30 to show improved balacne. Goal Progress: Not Progressing Goal 4:: Pt feel 50% improved in balance and woozyness Goal Progress: Not Progressing - Plan Plan: D/C , pt to go to ENT. - D/C Information Discharge Comments: Pt to f/u with ENT due to lack of improvement and length of symptoms. If there are questions or concerns regarding this patient's physical therapy, please feel free to call me at [phone]. Thank you for the referral of this patient. Sincerely, Sixto Broderick, DPT, OCS, CSCS
== END 2019-02-21 19:00 | disposition home or self-care (01) ==
LOC: PT 12:30
PROVIDERS: Family Provider Family Medicine; PCP Family Medicine; Referring Provider Family Medicine; Visit Provider Family Medicine
DX: R42 Dizziness and giddiness (principal); Z86.69 Personal history of other diseases of the nervous system and sense organs; N18.3 Chronic kidney disease, stage 3 (moderate)
CPT/HCPCS: 36415; 80048; 97162; 97530

== ENCOUNTER → 2019-03-01 | Outpatient (CLI) | payer MEDICARE, OTHER, SELFPAY ==
[2019-03-01 12:24] LABS: Absolute Lymphocyte Count 3.05 X10^3/ul (0.83-4.51); Absolute Neutrophil Count 4.3 X10^3/uL (2.0-7.7); Basophil# 0.07 X10^3/uL; Basophil% 0.8 % (0-1); Eosinophil# 0.49 X10^3/uL; Eosinophils% 5.3 % (0-5); Hematocrit 45.8 % (37-47); Hemoglobin 15.2 g/dl (12.0-15.0); Lymphocyte # 3.05 X10^3/ul (4.0); Lymphocyte % 32.9 % (19-41); Mean Corp Hgb Conc 33.2 g/gl (32-36); Mean Corpuscular Hgb 29.7 pg (27.0-32.0); Mean Corpuscular Volume 89.6 fL (81-99); Mean Platelet Vol. 9.1 fl (6.2-12.0); Monocyte# 1.34 X10^3/uL; Monocyte% 14.4 % (0-10); Neutrophil % 46.3 % (47-70); Platelet Count 279 K/mm3 (150-450); RBC Distribution Width CV 13.4 % (11.6-14.6); RBC Distribution Width SD 43.4 fl (35.1-43.9); Red Blood Count 5.11 M/mm3 (4.2-5.4); White Blood Count 9.3 K/mm3 (4.4-11.0)
[2019-03-01 12:38] LABS: Albumin, Serum 3.8 g/dL (3.2-5.0); BUN 12 mg/dL (7-18); BUN/Creat Ratio 9.2 RATIO (10-20); Calcium,Total 9.3 mg/dL (8.5-10.1); Chloride 97 mmol/L (98-107); Creatinine, Serum 1.31 mg/dL (0.55-1.02); EST Glomerular Filtration Rate 43 mL/min (>60); Est Glom Filt Rate - Afr Amer 52 mL/min (>60); Glucose 91 mg/dL (74-106); Phosphorus 3.5 mg/dL (2.5-4.9); Potassium 4.3 mmol/L (3.5-5.1); Sodium Level 134 mmol/L (136-145)
[2019-03-01 12:56] LABS: POSITIVE COUNT NO; POSITIVE DIFFERENTIAL NO; POSITIVE MORPHOLOGY NO
[2019-03-01 14:24] LABS: Vitamin D,25 Hydroxy 73.9 ng/mL (29.95-100.01)
[2019-03-01 14:31] LABS: PTHIN 66.6 pg/mL (18.4-80.1)
[2019-03-01 15:54] LABS: Protein, Urine (Random) 10.6 mg/dL (<11.9); Protein:Creat Ratio 128 mg/g CRE (0-200)
== END | disposition home or self-care (01) ==
PROVIDERS: Family Provider Family Medicine; PCP Family Medicine; Referring Provider Internal Medicine Nephrology; Visit Provider Internal Medicine Nephrology
DX: N18.3 Chronic kidney disease, stage 3 (moderate) (principal); Z13.0 Encounter for screening for diseases of the blood and blood-forming organs and certain disorders involving the immune mechanism
CPT/HCPCS: 36415; 80069; 82306; 82570; 83970; 84156; 85025

== ENCOUNTER → 2019-03-15 16:57 | Outpatient (CLI) | payer MEDICARE, OTHER, SELFPAY ==
--- NOTE | 2019-03-15 16:59 | RAD_ITS ---
STUDY: X-RAY - RIGHT KNEE REASON FOR EXAM: Female, 68 years old. Pain. TECHNIQUE: 4 view(s) of the knee. COMPARISON: None. FINDINGS: Normal visualized distal femur. Normal visualized proximal tibia and fibula. Normal proximal tibiofibular articulation. There is no demonstrated fracture. There is moderate degenerative arthrosis of the medial femorotibial compartment with moderate joint space narrowing. There is mild degenerative arthrosis of the lateral femorotibial compartment. Normal patellofemoral articulation. The soft tissue structures are unremarkable. RAD/Knee 4 or More Views IMPRESSION: Degenerative arthrosis. Electronically Signed: Angel Blood MD at 23:17 EDT , Service support ,
--- NOTE | 2019-03-15 16:59 | RAD_ITS ---
STUDY: X-RAY - LEFT SHOULDER REASON FOR EXAM: Female, 68 years old. Pain TECHNIQUE: 4 view(s) of the shoulder. COMPARISON: None. FINDINGS: There is mild degenerative arthrosis of the glenohumeral articulation. There is degenerative arthrosis of the acromioclavicular joint without inferior osseous spur formation. Normal acromion. There is spurring of the medial and lateral humeral head. The soft tissue structures are unremarkable. There is no demonstrated fracture. Normal visualized pulmonary apex. RAD/Shoulder min 2 Views IMPRESSION: Arthritic changes with spurring. Electronically Signed: Angel Blood MD at 23:06 EDT , Service support ,
--- NOTE | 2019-03-15 16:59 | RAD_ITS ---
STUDY: X-RAY - LEFT KNEE REASON FOR EXAM: Female, 68 years old. Pain TECHNIQUE: 4 view(s) of the knee. COMPARISON: None. FINDINGS: Normal visualized distal femur. Normal visualized proximal tibia and fibula. Normal proximal tibiofibular articulation. There is no demonstrated fracture. There is moderate degenerative arthrosis of the medial femorotibial compartment with moderate joint space narrowing. There is mild degenerative arthrosis of the lateral femorotibial compartment. Normal patellofemoral articulation. The soft tissue structures are unremarkable. RAD/Knee 4 or More Views IMPRESSION: Degenerative arthrosis. Electronically Signed: Angel Blood MD at 23:18 EDT , Service support ,
--- NOTE | 2019-03-15 16:59 | RAD_ITS ---
STUDY: X-RAY - RIGHT SHOULDER REASON FOR EXAM: Female, 68 years old. Pain TECHNIQUE: 4 view(s) of the shoulder. COMPARISON: None. FINDINGS: There is moderate degenerative arthrosis of the glenohumeral articulation. There is degenerative arthrosis of the acromioclavicular joint without inferior osseous spur formation. Normal acromion. Spurring and cystic change of the humeral head and glenoid. The soft tissue structures are unremarkable. There is no demonstrated fracture. Normal visualized pulmonary apex. RAD/Shoulder min 2 Views IMPRESSION: Arthritic change with spurring and cystic change. Electronically Signed: Angel Blood MD at 23:07 EDT , Service support ,
== END ==
PROVIDERS: Family Provider Family Medicine; PCP Family Medicine; Referring Provider Family Medicine; Visit Provider Family Medicine
DX: M19.012 Primary osteoarthritis, left shoulder (principal); M19.011 Primary osteoarthritis, right shoulder; M17.0 Bilateral primary osteoarthritis of knee
CPT/HCPCS: 73030; 73564

== ENCOUNTER → 2019-06-12 09:42 | Outpatient (CLI) | payer MEDICARE, OTHER, SELFPAY ==
[2019-06-12 12:28] LABS: Absolute Lymphocyte Count 2.46 X10^3/uL (0.83-4.51); Absolute Neutrophil Count 4.5 X10^3/uL (2.0-7.7); Basophil# 0.09 X10^3/uL; Eosinophil# 0.35 X10^3/uL; Hematocrit 42.8 % (37-47); Hemoglobin 14.2 g/dL (12.0-15.0); Lymphocyte # 2.46 X10^3/ul (4.0); Lymphocyte % 28.4 % (19-41); Mean Corp Hgb Conc 33.2 g/dL (32-36); Mean Corpuscular Hgb 31.1 pg (27.0-32.0); Mean Corpuscular Volume 93.9 fL (81-99); Mean Platelet Vol. 9.9 fl (6.2-12.0); Monocyte# 1.19 X10^3/uL; Monocyte% 13.7 % (0-10); NRBC Flagged by Analyzer 0 % (0-5); Neutrophil # 4.54 X10^3/uL (2.7-7.7); Neutrophil % 52.6 % (47-70); Platelet Count 226 K/mm3 (150-450); RBC Distribution Width CV 13.3 % (11.6-14.6); RBC Distribution Width SD 45.8 fl (35.1-43.9); Red Blood Count 4.56 M/mm3 (4.2-5.4); White Blood Count 8.7 K/mm3 (4.4-11.0)
[2019-06-12 12:59] LABS: ALB/GLOB Ratio 0.8 RATIO (0.9-2.4); AST(SGOT) 24 U/L (15-37); Alanine Aminotransfer ALT/SGPT 26 U/L (13-56); Albumin, Serum 3.5 g/dL (3.2-5.0); Alkaline Phosphatase 60 U/L (45-117); Anion Gap 7 (5-15); BUN 9 mg/dL (7-18); BUN/Creat Ratio 7.2 RATIO (10-20); Calcium,Total 9.3 mg/dL (8.5-10.1); Chloride 103 mmol/L (98-107); Cholesterol 247 mg/dL (200); Creatinine, Serum 1.25 mg/dL (0.55-1.02); EST Glomerular Filtration Rate 45 mL/min (>60); Est Glom Filt Rate - Afr Amer 54 mL/min (>60); Globulin 4.3 g/dL (2.2-4.2); Glucose 97 mg/dL (74-106); High Density Lipoprotein 44 mg/dL; Potassium 3.7 mmol/L (3.5-5.1); Protein, Total 7.8 g/dL (6.4-8.2); Sodium Level 137 mmol/L (136-145); T4 Free Direct 0.81 ng/dL (0.76-1.46); Thyroid Stim Hormone (TSH) 3.29 uIU/mL (0.358-3.74); Triglycerides 367 mg/dL; Very Low Density Lipoprotein 73 mg/dL (5-40)
[2019-06-12 13:01] LABS: Vitamin D,25 Hydroxy 68.3 ng/mL (29.95-100.01)
[2019-06-12 13:02] LABS: Hemoglobin A1c 5.9 % (4.2-6.3)
[2019-06-12 13:16] LABS: Microalbumin,Random Urine 9.3 mg/L (NO RANGE EST.); Microalbumin:Creatinine Ratio 8.4 mg/g CRE (<30 mg/g CRE)
== END ==
PROVIDERS: Family Provider Family Medicine; PCP Family Medicine; Visit Provider Family Medicine
DX: E11.22 Type 2 diabetes mellitus with diabetic chronic kidney disease (principal); N18.3 Chronic kidney disease, stage 3 (moderate); E03.9 Hypothyroidism, unspecified; E55.9 Vitamin D deficiency, unspecified
CPT/HCPCS: 36415; 80053; 80061; 82043; 82306; 82570; 83036; 84439; 84443; 85025

== ENCOUNTER 2019-06-18 16:44 | Emergency (ER) | payer MEDICARE, OTHER, SELFPAY ==
[2019-06-18 16:45] VITALS: BP 132/67; PULSE 84; RESP 19; TEMP 36.9; O2SAT 90; BMI 36.2
--- NOTE | 2019-06-18 17:11 | CT_ITS ---
STUDY: CT BRAIN WITHOUT CONTRAST REASON FOR EXAM: Female, 68 years old. Trauma RADIATION DOSAGE (If Supplied By Facility): CTDIvol = ( 44.99 ) mGy, DLP = ( 796.11 ) mGycm TECHNIQUE: Transaxial CT imaging of the brain was performed without administration of intravenous contrast material. Individualized dose optimization techniques were used for this CT. COMPARISON: No relevant priors. FINDINGS: Normal soft tissue structures. Normal calvarium. Normal size ventricles and extra-axial spaces for the patient's age. There are areas of decreased attenuation within the white matter tracts of the supratentorial brain, consistent with microvascular disease changes. Normal basal ganglia and thalami. Normal brainstem. Normal cerebellum. There is no intracranial hemorrhage. There are no findings of an acute ischemic infarction. Normal visualized paranasal sinuses. CT/Brain/Head without Contrast IMPRESSION: Chronic involutional changes of the brain. Electronically Signed: Con Cabral MD at 18:27 EDT , Service support ,
--- NOTE | 2019-06-18 17:12 | CT_ITS ---
STUDY: CT CERVICAL SPINE WITHOUT CONTRAST REASON FOR EXAM: Female, 68 years old. Trauma RADIATION DOSAGE (If Supplied By Facility): CTDIvol = ( 26.59 ) mGy, DLP = ( 489.06 ) mGycm TECHNIQUE: High resolution transaxial imaging was performed without contrast material. Sagittal and coronal images were reconstructed. Individualized dose optimization techniques were used for this CT. COMPARISON: None FINDINGS: Normal craniovertebral junction. Normal anterior atlantoaxial articulation. Normal odontoid process. Normal cervical lordosis. There is mild endplate spondylosis of C4-C7. C2-3: Normal endplates. Normal disc height and morphology. Normal central canal and intervertebral neuroforamina. C3-4: Normal endplates. Normal disc height and morphology. Normal central canal and intervertebral neuroforamina. C4-5: Normal endplates. Normal disc height and morphology. Normal central canal and intervertebral neuroforamina. C5-6: Normal endplates. Normal disc height and morphology. Normal central canal and intervertebral neuroforamina. C6-7: There are degenerative facet changes on the left. There is mild left foraminal narrowing. There is no central canal stenosis. Disc spacing is within normal limits. C7-T1: Normal endplates. Normal disc height and morphology. Normal central canal and intervertebral neuroforamina. Normal visualized soft tissue structures. CT/Spine Cervical without Contras IMPRESSION: Multilevel degenerative changes, as described above. There is no evidence of fracture or subluxation. Electronically Signed: Con Cabral MD at 18:35 EDT , Service support ,
--- NOTE | 2019-06-18 17:13 | ED.DCSUM_ITS ---
History of Present Illness Chief Complaint: Fall Detail of Chief Complaint: Weakness Informant: Patient Onset: Today Current Severity: Mild Maximum Severity: Mild Narrative: Patient presents via EMS from home after a fall. Patient states she was going out to clean out her car. She was going down the steps from the porch when she fell backwards and hit the back of her head on the porch. She does not know if she got dizzy or caught her foot on something. She does not remember having chest pain or palpitations. She does not believe she got knocked out. She states they tried to stand her up to go to the ambulance but her legs were weak. She denies back pain. She has mild pain to the right ankle. Past Medical History - Allergies and Home Meds Allergies/Adverse Reactions: Allergies succinylcholine Allergy (Verified 06/18/19 16:51) MUSCLE CONTRACTED Primary Care Physician: Gm Flores MD [Primary Care Provider] - 1 Week if not improving Prior records reviewed: Yes Past Medical History: - Smoking Status: Never smoker Review of Systems General: Denies: Chills, Fever Eyes: Denies: Visual changes - bilaterally ENT: Denies: Bilateral ear pain Cardiovascular: Denies: Chest pain, Palpitations Respiratory: Denies: Dyspnea, Cough Genitourinary: Denies: Dysuria Musculoskeletal: Reports: Neck pain Skin: Denies: Rash, Abrasions Neurological: Reports: Weakness - Unrealized weakness Endocrine: Denies: Polyuria, Polydipsia Hematologic: Denies: Easy bruising Allergy: Denies: Uticaria Physical Exam Vital Signs/Narrative: Vital Signs Temp Pulse Resp BP Pulse Ox 06/18/19 16:45 98.5 F 84 19 H 132/67 H 90 Inital Vital Signs reviewed: Yes General: Well nourished, Well developed Head: Normocephalic Eyes: Perrl, EOMI ENT: Moist mucous membranes Neck: - - Cristofer cervical tenderness. No step-off. Cardiovascular: Regular rate, Regular rhythm Respiratory: No distress, CTA bilaterally Abdomen: Soft, Nontender Extremities: Tenderness - Mild tenderness just distal to the right lateral malleolus. Minimal edema. Skin: Normal color Neurological: Alert, Oriented x3, - - Bilateral lower extremity weakness when raising her feet off the bed. She states this is chronic and normal for her. No focal deficits. Diagnostic/Tx/Re-eval Impressions Brain CT 06/18/19 17:11 IMPRESSION: Chronic involutional changes of the brain. Electronically Signed: Con Cabral MD at 18:27 EDT , Service support , Cervical Spine CT 06/18/19 17:12 IMPRESSION: Multilevel degenerative changes, as described above. There is no evidence of fracture or subluxation. Electronically Signed: Con Cabral MD at 18:35 EDT , Service support , Ankle X-Ray 06/18/19 18:14 IMPRESSION: Normal x-ray examination of the ankle. Electronically Signed: Con Cabral MD at 18:37 EDT , Service support , 06/18/19 17:11 Brain/Head without Contrast [CT] Stat 06/18/19 17:12 CT Cervical [Spine Cervical without Contras] [CT] Stat 06/18/19 18:14 Ankle min 3 Views [RAD] Stat Laboratory Results 06/18/19 06/18/19 06/18/19 17:40 17:40 18:58 WBC 9.3 RBC 4.53 Hgb 14.1 Hct 41.9 MCV 92.5 MCH 31.1 MCHC 33.7 RDW Std Deviation 45.4 H RDW Coeff of Myles 13.3 Plt Count 242 MPV 9.0 Immature Gran % (Auto) 0.500 Neut % (Auto) 49.0 Lymph % (Auto) 29.7 [place] % (Auto) 15.1 H Eos % (Auto) 4.9 Baso % (Auto) 0.8 Absolute Neuts (auto) 4.6 Absolute Lymphs (auto) 2.76 Nucleated RBC % 0 Sodium 137 Potassium 4.0 Chloride 101 Carbon Dioxide 30.0 Anion Gap 6 BUN 17 Creatinine 1.51 H Estim Creat Clear Calc 29.94 Est GFR (MDRD) Af Amer 44 L Est GFR (MDRD) Non-Af 36 L BUN/Creatinine Ratio 11.3 Glucose 89 Calcium 9.1 Urine Color Yellow Urine Clarity Sl. Cloudy Urine pH 6.5 Ur Specific [place] 1.010 Urine Protein Negative Urine Glucose (UA) Normal Urine Ketones Negative Urine Occult Blood Negative Urine Nitrite Positive H Urine Bilirubin Negative Urine Urobilinogen Normal Ur Leukocyte Esterase 100 H Urine RBC 0 SEEN Urine WBC 0-5 SEEN Ur Squamous Epith Cells 0 SEEN Urine Bacteria 3+ Urine Mucus 0 SEEN - Medical Decision Making Laboratory work-up is discussed with patient and family at bedside. Son is now present with whom the patient lives. He states patient appears to be at her baseline. She is able to get up and ambulate to the restroom and back. She will be given 3 days of Bactrim for UTI. ED Disposition - Plan for ED Patient: Disposition: Home or Assisted Living Diagnosis: Cystitis Instructions: Bladder Infection, Female (Adult) Prescriptions: Smz/Tmp Ds [Bactrim Ds] 1 tab PO BID #6 tab Prescription Printed Referrals: Gm Flores MD [Primary Care Provider] - 1 Week if not improving
[2019-06-18 17:49] LABS: Absolute Lymphocyte Count 2.76 X10^3/uL (0.83-4.51); Absolute Neutrophil Count 4.6 X10^3/uL (2.0-7.7); Basophil# 0.07 X10^3/uL; Basophil% 0.8 % (0-1); Eosinophil# 0.46 X10^3/uL; Eosinophils% 4.9 % (0-5); Hematocrit 41.9 % (37-47); Hemoglobin 14.1 g/dL (12.0-15.0); Lymphocyte # 2.76 X10^3/ul (4.0); Lymphocyte % 29.7 % (19-41); Mean Corp Hgb Conc 33.7 g/dL (32-36); Mean Corpuscular Hgb 31.1 pg (27.0-32.0); Mean Corpuscular Volume 92.5 fL (81-99); Monocyte% 15.1 % (0-10); NRBC Flagged by Analyzer 0 % (0-5); Neutrophil # 4.56 X10^3/uL (2.7-7.7); Platelet Count 242 K/mm3 (150-450); RBC Distribution Width CV 13.3 % (11.6-14.6); RBC Distribution Width SD 45.4 fl (35.1-43.9); Red Blood Count 4.53 M/mm3 (4.2-5.4); White Blood Count 9.3 K/mm3 (4.4-11.0)
[2019-06-18] MEDS: 0.9% Normal Saline 1,000 ML 150 ML IV (18:02)
[2019-06-18 18:03] LABS: Anion Gap 6 (5-15); BUN 17 mg/dL (7-18); BUN/Creat Ratio 11.3 RATIO (10-20); Calcium,Total 9.1 mg/dL (8.5-10.1); Chloride 101 mmol/L (98-107); Creatinine, Serum 1.51 mg/dL (0.55-1.02); EST Glomerular Filtration Rate 36 mL/min (>60); Est Glom Filt Rate - Afr Amer 44 mL/min (>60); Estimated Creatinine Clearance 29.94 ml/min; Glucose 89 mg/dL (74-106); Sodium Level 137 mmol/L (136-145)
--- NOTE | 2019-06-18 18:14 | RAD_ITS ---
STUDY: X-RAY - RIGHT ANKLE REASON FOR EXAM: Female, 68 years old. Trauma TECHNIQUE: 3 view(s) of the ankle. COMPARISON: None. FINDINGS: Normal visualized distal tibia and fibula. Normal medial and lateral malleoli. Normal tibiotalar articulation and ankle mortise. Normal visualized talus and calcaneus. The visualized subtalar, talonavicular, calcaneocuboid and tarsal articulations are normal. The soft tissue structures are unremarkable. RAD/Ankle min 3 Views IMPRESSION: Normal x-ray examination of the ankle. Electronically Signed: Con Cabral MD at 18:37 EDT , Service support ,
[2019-06-18 19:08] LABS: Color, Urine Yellow (Yellow); Glucose, Dipstick Normal (Normal); Ketone-Dipstick Negative (Negative); Leukocyte Esterase-Dipstick 100 /ul (Negative); Mucous, Urine 0 SEEN /hpf (<or=2+); Nitrite-Dipstick Positive (Negative); Occult Blood-Urine Negative /ul (Negative); Protein-Dipstick Negative (Negative); Red Blood Cells-Urine 0 SEEN /hpf (0-5); Squamous Epithelial Cells - UA 0 SEEN /hpf (5-10); Urine Bilirubin Dipstick Negative (Negative); Urine Clarity Sl. Cloudy (Clear); Urine Urobilinogen Normal (Normal); Urine pH 6.5 (5.0 - 8.0)
[2019-06-18 19:18] LABS: Bacteria 3+ /hpf (None Seen); White Blood Cells 0-5 SEEN /hpf (0-5)
[2019-06-18 20:31] VITALS: BP 116/74; PULSE 68; RESP 16
[2019-06-18] MEDS: Smz/Tmp Ds Tablet 1 TABLET PO (20:31)
== END 2019-06-18 20:36 | disposition home or self-care (01) ==
PROVIDERS: Emergency Provider Emergency Medicine; Family Provider Family Medicine; PCP Family Medicine
DX: N30.90 Cystitis, unspecified without hematuria (principal); M25.571 Pain in right ankle and joints of right foot; W10.8XXA Fall (on) (from) other stairs and steps, initial encounter; Y92.008 Other place in unspecified non-institutional (private) residence as the place of occurrence of the external cause
CPT/HCPCS: 70450; 72125; 73610; 80048; 81001; 85025; 96360; 96361; 99285; J7030; A4216

== ENCOUNTER → 2019-09-07 11:58 | Outpatient (CLI) | payer MEDICARE, OTHER, SELFPAY ==
--- NOTE | 2019-09-07 12:00 | RAD_ITS ---
STUDY: X-RAY CHEST REASON FOR EXAM: Female, 69 years old. Asthma exacerbation. TECHNIQUE: 2 views COMPARISON: Prior chest radiograph of July 29, 2018 FINDINGS: The lungs are clear and expanded. There is no demonstrated pleural abnormality. Normal size heart. Normal mediastinum and tabby. Normal visualized pulmonary arteries. Normal visualized aortic arch and descending thoracic aorta. There are diffuse degenerative changes of the visualized thoracic spine. Normal visualized ribs, clavicles, and shoulders. There is no demonstrated abnormality of the visualized soft tissue structures of the upper abdomen. RAD/Chest PA and Lateral IMPRESSION: No acute cardiopulmonary findings or changes. Negative for new consolidation, focal atelectasis, pleural effusion or cardiomegaly. Electronically Signed: Gela Lozano MD at 17:00 EST , Service support ,
== END ==
PROVIDERS: Family Provider Family Medicine; PCP Family Medicine; Referring Provider Family Medicine; Visit Provider Family Medicine
DX: J45.901 Unspecified asthma with (acute) exacerbation (principal)
CPT/HCPCS: 71046

== ENCOUNTER → 2019-09-18 17:12 | Outpatient (CLI) | payer MEDICARE, OTHER, SELFPAY | PROVIDERS: Family Provider Family Medicine; PCP Family Medicine | DX: R82.998 Other abnormal findings in urine (principal) | CPT/HCPCS: 87086; 87088 ==

== ENCOUNTER 2019-09-25 09:00 | Outpatient (RCR) | payer MEDICARE, OTHER, SELFPAY ==
--- NOTE | 2019-08-07 10:02 | HP.PTEVAL_ITS ---
Patient's Visit Information ELIZABETH HOPE is a 68 year old F referred to Physical Therapy by Gm Flores MD with a diagnosis of B knee OA and LE weakness.. Date of Evaluation: 08/07/19 Physical Therapist: Sixto Broderick, DPT, OCS, CSCS - Visit Plan Frequency: 2x /Week Duration: 4-6 Weeks Plan: 2x/week for 4 weeks for pool therapy per script for. 1. static and dynamic balance. work with ec as safety allows. 2. LE and postural strength. 3. gait training. 4. progress to I program as able - Subjective Findings: Legs are very weak. Doctor asays it is due to neuropathy and arthritis. Has neuroapthy from DM. Has walker and cane and uses both. Does not walk without AD. Has several falls sometimes coming down steps as she has two at home. Has alert button. Usually goes BW when she falls. has Mienieres whcih she gets sometimes. Has ativan that she takes for it. Dizzyness usually does not cause her to fall. No regular exercises. Not employed. sleep is OK and normal. Basic ADLs are OK. Just has to be careful. Eats out alot. Uses microwave alot. 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 Lives alone and does not need basement. - Objective Walks with cane mildly unsteady, Trasnfers with UE only, scared on steps and prefers R but no knee pain like she had before her injections. Standing is post weight shift and is not steady with ec. Pt needs cane to ambulate but is still unsteady with that, safer with wh walker and recommended this at all times. Goes posterior immediately in rom[place] ec. Pt very scared to shift weight in stance and walking. LE AROM WFL, some tightness in gastroc and HS but moderate. LE strength DF 3+ , inv/ev 3, PF 3, knee flexion adn ext 3+ adn hip flexion 3+, hip abd, ext 3. reflexes 1/3 patella and achilles. no clonus. Sensation at great deficit in feet adn ankles to gross light touch. - Balance Scores Functional Gait Assessment Score: 9 % Disability: 70.0000 CATSIB Score (Max score 120 seconds): 33 - Goals Goal 1:: FGa to show improved balance adn safety. Goal 2:: I approp HEp to minimize future porblems with gait and maximize activity. Goal Time Frame: 4-6 Weeks Goal 3:: Patient feel 25% better in balance and no increase in knee pain. Goal Time Frame: 4-6 Weeks Goal 4:: stadn [place] ec without BW weight hsift imbalance. - Rehabilitation Potential Physical Therapy Diagnosis: unsteadiness due to neuropathy and weakness/sedentarism. Rehabilitation Potential: Questionable - Anticipated Interventions Patient/Client Instruction: Educate patient on: Condition, Plan of Care For the Purpose of:: To improve nutrient delivery to tissue, To improve muscle performance and motor function, To increase tolerance to activity/condition/position, To improve ability of physical actions for home/com munity/work/leisure Therapeutic Exercise to Include: Balance training, Gait and locomotor training, In an aquatic setting, Active ROM For the Purpose of:: To improve muscle performance and motor function, To increase tolerance to activity/condition/position, To improve ability of physical actions for home/community/work/leisure Thank you for the opportunity to evaluate your patient. For Medicare and Medicare HMO plans, please review the plan of care and approve it. It will need to be FAXED BACK to us at [phone] for Medicare purposes. For Medicare only, by signing this I certify the plan of care. Please let me know if there are questions or concerns regarding this plan of care. Physician Signature: Date:
--- NOTE | 2019-09-25 09:29 | HP.PTDCSUM ---
HP - PT D/C Summary It has been my pleasure to treat ELIZABETH HOPE under orders from Gm Flores MD, for the diagnosis of B knee OA and LE weakness. for a total of 10 visit(s). Discharge Date: 09/25/19 Please see the following information for a summary of their discharge status. - Subjective Subjective: Water felt good on her legs. L knee still gives her trouble on steps with weakness. R knee is OK. Pain over weekend is nil to slight unless she is going up steps L knee. 08/10 on steps but no other pain. Will see Dr. flores tomorrow. Doing HEP and they seem to be helpful. - Pain R knee Pain Intensity (Out of 10): 0 L knee Pain Intensity (Out of 10): 0 Lumbar Spine Pain Intensity (Out of 10): 0 - Overall Improvement % Improvement: 90 - Objective Objective/Function: Pt did well in the pool and is much less painful. Still challenged on steps with L LE but can use R comfortably with rail and will do this. Needs wh walker for safety but is OK with this. Much less painful in the knees without antalgia today. Wants to continue via HEP vs further balance work adn community pool - Goals Goal 1:: FGa to show improved balance adn safety. Goal Progress: Progressing Goal 2:: I approp HEp to minimize future porblems with gait and maximize activity. Goal Progress: Goal Met Goal 3:: Patient feel 25% better in balance and no increase in knee pain. Goal Progress: Goal Met Goal 4:: stadn [place] ec without BW weight hsift imbalance. Goal Progress: Goal Met - Plan Plan: d/c pt request to HEP - D/C Information Discharge Comments: Pt doing well subjectively with less pain but does not wish to continue in pool in community on her own. Wishes to continue with HEP and f/u with doctor tomorrow. If there are questions or concerns regarding this patient's physical therapy, please feel free to call me at [phone]. Thank you for the referral of this patient. Sincerely, Sixto Broderick, DPT, OCS, CSCS
== END 2019-09-25 19:00 | disposition home or self-care (01) ==
LOC: PT 09:00
PROVIDERS: Family Provider Family Medicine; PCP Family Medicine; Referring Provider Family Medicine; Visit Provider Family Medicine
DX: M17.0 Bilateral primary osteoarthritis of knee (principal); R29.898 Other symptoms and signs involving the musculoskeletal system; R53.81 Other malaise
CPT/HCPCS: 97113; 97162; 97530

== ENCOUNTER 2019-10-06 18:10 | Emergency (ER) | payer MEDICARE, OTHER, SELFPAY ==
[2019-10-06 18:12] VITALS: BP 148/73; PULSE 64; RESP 17; TEMP 36.5; O2SAT 96; O2SAT 97; BMI 34.3
[2019-10-06 19:02] VITALS: BMI 36.0
--- NOTE | 2019-10-06 19:09 | EKG12_ITS ---
Test Reason : DS Blood Pressure : / mmHG Vent. Rate : 061 BPM Atrial Rate : 061 BPM P-R Int : 000 ms QRS Dur : 062 ms QT Int : 462 ms P-R-T Axes : 000 009 035 degrees QTc Int : 465 ms Sinus rhythm Low voltage QRS Nonspecific ST and T wave abnormality Abnormal ECG Confirmed by HORACE PROCTOR, MAXIMO ([id number]), mapping editor ZUNILDA KLEIN ([id number]) on 10/08/2019 9:42:06 AM Referred By: DC Confirmed By:CHARLA VU MD
--- NOTE | 2019-10-06 19:09 | CT_ITS ---
STUDY: CT BRAIN WITHOUT CONTRAST REASON FOR EXAM: Female, 69 years old. Left facial droop. Difficulty swallowing. Right ear pain. RADIATION DOSAGE (If Supplied By Facility): CTDIvol = ( 44.99 ) mGy, DLP = ( 745.49 ) mGycm TECHNIQUE: Transaxial CT imaging of the brain was performed without administration of intravenous contrast material. Individualized dose optimization techniques were used for this CT. COMPARISON: June 18, 2019 FINDINGS: Normal soft tissue structures. There appear to be stable postsurgical changes of the left mastoid air cells. There is mild cerebral atrophy with widening of the extra-axial spaces and ventricular dilatation. Normal white matter tracts of the cerebral hemispheres. Normal basal ganglia and thalami. Normal brainstem. Normal cerebellum. There is no intracranial hemorrhage. There are no findings of an acute ischemic infarction. Normal visualized paranasal sinuses. CT/Brain/Head without Contrast IMPRESSION: Chronic involutional changes of the brain. Electronically Signed: Arlette Grant MD at 20:57 EST Tel , Service support ,
[2019-10-06 19:40] LABS: Absolute Lymphocyte Count 2.69 X10^3/uL (0.83-4.51); Absolute Neutrophil Count 4.4 X10^3/uL (2.0-7.7); Basophil# 0.06 X10^3/uL; Basophil% 0.7 % (0-1); Eosinophil# 0.43 X10^3/uL; Eosinophils% 4.9 % (0-5); Hemoglobin 14.7 g/dL (12.0-15.0); Lymphocyte # 2.69 X10^3/ul (4.0); Lymphocyte % 30.8 % (19-41); Mean Corp Hgb Conc 33.4 g/dL (32-36); Mean Corpuscular Hgb 30.8 pg (27.0-32.0); Mean Corpuscular Volume 92.2 fL (81-99); Mean Platelet Vol. 9.1 fl (6.2-12.0); Monocyte# 1.14 X10^3/uL; Monocyte% 13.1 % (0-10); NRBC Flagged by Analyzer 0 % (0-5); Neutrophil # 4.36 X10^3/uL (2.7-7.7); Platelet Count 278 K/mm3 (150-450); RBC Distribution Width SD 44.4 fl (35.1-43.9); Red Blood Count 4.77 M/mm3 (4.2-5.4); White Blood Count 8.7 K/mm3 (4.4-11.0)
[2019-10-06 19:44] LABS: International Normalized Ratio 1.2; Prothrombin Time (Protime)PT. 14.8 SECONDS (11.7-14.9)
[2019-10-06 19:45] LABS: Partial Thromboplast Time 29.1 Seconds (24.1-36.2)
[2019-10-06 19:54] LABS: Anion Gap 6 (5-15); BUN 11 mg/dL (7-18); BUN/Creat Ratio 8.3 RATIO (10-20); Calcium,Total 9.6 mg/dL (8.5-10.1); Chloride 102 mmol/L (98-107); Creatinine, Serum 1.33 mg/dL (0.55-1.02); EST Glomerular Filtration Rate 42 mL/min (>60); Est Glom Filt Rate - Afr Amer 51 mL/min (>60); Glucose 100 mg/dL (74-106); Potassium 3.8 mmol/L (3.5-5.1); Sodium Level 137 mmol/L (136-145)
[2019-10-06 19:56] LABS: Bedside Glucose 96 mg/dL (70-110)
[2019-10-06 20:00] VITALS: BP 129/72; PULSE 64; RESP 17; O2SAT 95
[2019-10-06 21:00] VITALS: BP 139/75; PULSE 65; RESP 18; O2SAT 94
--- NOTE | 2019-10-06 22:06 | ED.VISSUMM ---
- ER Visit Summary Date of Service: 10/06/19 Chief Complaint: Facial droop History of Present Illness: The patient is a 69 F who was started to have some right side neck pain 2 days ago. Then yesterday, she had weakness to her right face. Symptoms were worse today. Denies visual changes. Denies hearing changes. Denies recent fevers or illness. Denies trauma. Denies change in taste, but her speech does sound like she has a dry mouth. Denies any weakness in her arms. She does have bilateral leg weakness. She has this chronically, but it seems to be worse. Denies any history of stroke. She has a history of M?ni?re's disease, diabetes, hypertension, and hyperlipidemia. Non-smoker. Physical Examination: Afebrile and vital signs unremarkable. Patient has right-sided facial droop involving her eye and forehead. Otherwise her HEENT exam is unremarkable. The remainder of her neurologic exam is nonfocal. She has bilateral lower extremity weakness, but it is symmetric. Heart regular. Lungs clear. Test Results: CT brain showed chronic changes. EKG and labs unremarkable. Emergency Department Course and Treatment: Patient has what appears to be Wynn's palsy. There is no indication for stroke team. She will be treated with acyclovir and prednisone. Monitor blood sugars. Tape her eyes at night, eye precautions. Follow-up with primary care for recheck. Return for any new or worsening issues. Treatment Plan: As above Disposition: Discharge Impression: Right-sided Wynn's palsy This note was generated with [employer] dictation software. It may contain incorrect words, spelling, and punctuation that were not noted in review of the chart prior to signing ED Disposition - Plan for ED Patient: Referrals: Gm Flores MD [Primary Care Provider] -
--- NOTE | 2019-10-06 22:09 | ED.DEP ---
ED Disposition - Plan for ED Patient: Instructions: Wynn's Palsy Prescriptions: Acyclovir 400 mg PO 5X/DAY 10 Days #50 tab Prescription Printed Prednisone 60 mg PO UD 4 Days #24 tab Prescription Printed Referrals: Gm Flores MD [Primary Care Provider] -
[2019-10-06] MEDS: predniSONE 20 MG Tablet 60 MG PO (22:21)
[2019-10-06] MEDS: Acyclovir 200 MG Capsule 400 MG PO (22:21)
[2019-10-06] MEDS: HYDROcodone Bitartrate/Apap 5/325 Tablet PO (22:21)
[2019-10-06 22:31] VITALS: BP 129/66; PULSE 76; RESP 16; O2SAT 97
== END 2019-10-06 22:42 | disposition home or self-care (01) ==
LOC: ED 19:33
PROVIDERS: Emergency Provider Emergency Medicine; Family Provider Family Medicine; PCP Family Medicine
DX: G51.0 Bell's palsy (principal); I10 Essential (primary) hypertension; E11.9 Type 2 diabetes mellitus without complications; E78.5 Hyperlipidemia, unspecified; Z79.84 Long term (current) use of oral hypoglycemic drugs; Z79.899 Other long term (current) drug therapy
CPT/HCPCS: 70450; 80048; 82962; 84484; 85025; 85610; 85730; 93005; 99283; A4216

== ENCOUNTER → 2019-10-30 13:44 | Outpatient (CLI) | payer MEDICARE, OTHER, SELFPAY ==
[2019-10-06 19:02] VITALS: BMI 36.0
[2019-10-30 16:12] LABS: Absolute Lymphocyte Count 2.61 X10^3/uL (0.83-4.51); Absolute Neutrophil Count 3.6 X10^3/uL (2.0-7.7); Basophil# 0.06 X10^3/uL; Basophil% 0.8 % (0-1); Eosinophil# 0.42 X10^3/uL; Eosinophils% 5.3 % (0-5); Hematocrit 43.4 % (37-47); Hemoglobin 14.1 g/dL (12.0-15.0); Lymphocyte # 2.61 X10^3/ul (4.0); Lymphocyte % 33.2 % (19-41); Mean Corp Hgb Conc 32.5 g/dL (32-36); Mean Corpuscular Volume 95.4 fL (81-99); Mean Platelet Vol. 9.4 fl (6.2-12.0); Monocyte# 1.09 X10^3/uL; Monocyte% 13.9 % (0-10); NRBC Flagged by Analyzer 0 % (0-5); Neutrophil # 3.64 X10^3/uL (2.7-7.7); Neutrophil % 46.3 % (47-70); Platelet Count 257 K/mm3 (150-450); RBC Distribution Width CV 13.6 % (11.6-14.6); RBC Distribution Width SD 47.7 fl (35.1-43.9); Red Blood Count 4.55 M/mm3 (4.2-5.4); White Blood Count 7.9 K/mm3 (4.4-11.0)
[2019-10-30 16:57] LABS: Hemoglobin A1c 6.2 % (4.2-6.3)
[2019-10-30 16:58] LABS: Vitamin D,25 Hydroxy 43.1 ng/mL (29.95-100.01)
[2019-10-30 17:27] LABS: ALB/GLOB Ratio 0.8 RATIO (0.9-2.4); AST(SGOT) 26 U/L (15-37); Alanine Aminotransfer ALT/SGPT 34 U/L (13-56); Albumin, Serum 3.4 g/dL (3.2-5.0); Alkaline Phosphatase 58 U/L (45-117); Anion Gap 6 (5-15); BUN 14 mg/dL (7-18); Calcium,Total 8.5 mg/dL (8.5-10.1); Chloride 102 mmol/L (98-107); Cholesterol 197 mg/dL (200); Creatinine, Serum 1.27 mg/dL (0.55-1.02); EST Glomerular Filtration Rate 44 mL/min (>60); Est Glom Filt Rate - Afr Amer 53 mL/min (>60); Globulin 4.2 g/dL (2.2-4.2); Glucose 97 mg/dL (74-106); High Density Lipoprotein 49 mg/dL; Potassium 3.9 mmol/L (3.5-5.1); Protein, Total 7.6 g/dL (6.4-8.2); Sodium Level 138 mmol/L (136-145); Thyroid Stim Hormone (TSH) 3.24 uIU/mL (0.358-3.74); Triglycerides 308 mg/dL; Very Low Density Lipoprotein 62 mg/dL (5-40)
[2019-10-30 17:37] LABS: Protein:Creat Ratio 189 mg/g CRE (0-200)
== END ==
PROVIDERS: Family Provider Family Medicine; PCP Family Medicine; Visit Provider Family Medicine
DX: E11.22 Type 2 diabetes mellitus with diabetic chronic kidney disease (principal); N18.3 Chronic kidney disease, stage 3 (moderate); E03.9 Hypothyroidism, unspecified; E55.9 Vitamin D deficiency, unspecified; E78.5 Hyperlipidemia, unspecified
CPT/HCPCS: 36415; 80053; 80061; 82306; 82570; 83036; 84156; 84443; 85025

== ENCOUNTER → 2019-11-13 09:42 | Outpatient (CLI) | payer MEDICARE, OTHER, SELFPAY ==
[2019-11-13 09:35] VITALS: BMI 36.0
--- NOTE | 2019-11-13 09:43 | RAD_ITS ---
STUDY: X-RAY CHEST REASON FOR EXAM: Female, 69 years old. COUGH. HX OF ASTHMA TECHNIQUE: PA and lateral views of the chest. COMPARISON: Comparison is made with prior study dated September 07, 2019. FINDINGS: Hyperinflation. Scattered calcified granulomas. The lungs are clear. There is no demonstrated pleural abnormality. Normal size heart. Normal mediastinum and tabby. Normal visualized pulmonary arteries. Normal visualized aortic arch and descending thoracic aorta. Normal visualized thoracic spine. Normal visualized ribs, clavicles, and shoulders. There is no demonstrated abnormality of the visualized soft tissue structures of the upper abdomen. RAD/Chest PA and Lateral IMPRESSION: No acute abnormality is seen. Electronically Signed: Anibal Lan, at 11:11 EST , Service support ,
== END ==
PROVIDERS: Family Provider Family Medicine; PCP Family Medicine; Referring Provider Physician Assistant Surgical; Visit Provider Physician Assistant Surgical
DX: J20.9 Acute bronchitis, unspecified (principal)
CPT/HCPCS: 71046

== ENCOUNTER → 2019-12-07 15:22 | Outpatient (CLI) | payer MEDICARE, OTHER, SELFPAY ==
[2019-11-13 09:35] VITALS: BMI 36.0
[2019-12-07 18:26] LABS: Hematocrit 44.2 % (37-47); Hemoglobin 14.5 g/dL (12.0-15.0); Mean Corp Hgb Conc 32.8 g/dL (32-36); Mean Corpuscular Hgb 31.2 pg (27.0-32.0); Mean Corpuscular Volume 95.1 fL (81-99); Mean Platelet Vol. 9.5 fl (6.2-12.0); Platelet Count 278 K/mm3 (150-450); RBC Distribution Width CV 13.1 % (11.6-14.6); RBC Distribution Width SD 45.4 fl (35.1-43.9); Red Blood Count 4.65 M/mm3 (4.2-5.4); White Blood Count 7.8 K/mm3 (4.4-11.0)
[2019-12-07 18:36] LABS: Erythrocyte Sedimentation Rate 43 mm/hr (0-30)
[2019-12-07 18:40] LABS: ALB/GLOB Ratio 0.8 RATIO (0.9-2.4); AST(SGOT) 34 U/L (15-37); Alanine Aminotransfer ALT/SGPT 35 U/L (13-56); Albumin, Serum 3.8 g/dL (3.2-5.0); Alkaline Phosphatase 62 U/L (45-117); Anion Gap 6 (5-15); BUN 15 mg/dL (7-18); BUN/Creat Ratio 11.4 RATIO (10-20); CRP 3.01 mg/L (0.0-3.0); Calcium,Total 9.2 mg/dL (8.5-10.1); Chloride 100 mmol/L (98-107); Creatinine, Serum 1.32 mg/dL (0.55-1.02); EST Glomerular Filtration Rate 42 mL/min (>60); Est Glom Filt Rate - Afr Amer 51 mL/min (>60); Globulin 4.5 g/dL (2.2-4.2); Glucose 81 mg/dL (74-106); Potassium 4.2 mmol/L (3.5-5.1); Protein, Total 8.3 g/dL (6.4-8.2); Sodium Level 134 mmol/L (136-145)
== END ==
PROVIDERS: PCP Family Medicine; Referring Provider Family Medicine; Visit Provider Family Medicine
DX: R29.898 Other symptoms and signs involving the musculoskeletal system (principal)
CPT/HCPCS: 36415; 80053; 85027; 85652; 86140

== ENCOUNTER → 2019-12-28 10:49 | Outpatient (CLI) | payer MEDICARE, OTHER, SELFPAY ==
[2019-11-13 09:35] VITALS: BMI 36.0
[2019-12-28 14:53] LABS: Erythrocyte Sedimentation Rate 24 mm/hr (0-30)
== END ==
PROVIDERS: PCP Family Medicine; Referring Provider Family Medicine; Visit Provider Family Medicine
DX: M35.3 Polymyalgia rheumatica (principal)
CPT/HCPCS: 36415; 85652

== ENCOUNTER → 2020-02-28 10:37 | Outpatient (CLI) | payer MEDICARE, OTHER, SELFPAY ==
[2019-11-13 09:35] VITALS: BMI 36.0
[2020-02-28 12:21] LABS: Absolute Lymphocyte Count 1.79 X10^3/uL (0.83-4.51); Absolute Neutrophil Count 6.4 X10^3/uL (2.0-7.7); Basophil# 0.08 X10^3/uL; Basophil% 0.9 % (0-1); Eosinophil# 0.27 X10^3/uL; Eosinophils% 2.9 % (0-5); Erythrocyte Sedimentation Rate 44 mm/hr (0-30); Hematocrit 44.3 % (37-47); Hemoglobin 14.5 g/dL (12.0-15.0); Lymphocyte # 1.79 X10^3/ul (4.0); Lymphocyte % 19.1 % (19-41); Mean Corp Hgb Conc 32.7 g/dL (32-36); Mean Corpuscular Hgb 30.5 pg (27.0-32.0); Mean Corpuscular Volume 93.1 fL (81-99); Mean Platelet Vol. 9.4 fl (6.2-12.0); Monocyte# 0.77 X10^3/uL; Monocyte% 8.2 % (0-10); NRBC Flagged by Analyzer 0 % (0-5); Neutrophil # 6.44 X10^3/uL (2.7-7.7); Neutrophil % 68.5 % (47-70); Platelet Count 233 K/mm3 (150-450); RBC Distribution Width CV 13.2 % (11.6-14.6); RBC Distribution Width SD 45.1 fl (35.1-43.9); Red Blood Count 4.76 M/mm3 (4.2-5.4); White Blood Count 9.4 K/mm3 (4.4-11.0)
[2020-02-28 12:27] LABS: Vitamin D,25 Hydroxy 81.1 ng/mL
[2020-02-28 12:31] LABS: ALB/GLOB Ratio 0.9 RATIO (0.9-2.4); AST(SGOT) 23 U/L (15-37); Alanine Aminotransfer ALT/SGPT 26 U/L (13-56); Albumin, Serum 3.5 g/dL (3.2-5.0); Alkaline Phosphatase 54 U/L (45-117); Anion Gap 5 (5-15); BUN 15 mg/dL (7-18); BUN/Creat Ratio 11.3 RATIO (10-20); Calcium,Total 9.2 mg/dL (8.5-10.1); Chloride 103 mmol/L (98-107); Cholesterol 173 mg/dL (200); Creatinine, Serum 1.33 mg/dL (0.55-1.02); EST Glomerular Filtration Rate 42 mL/min (>60); Est Glom Filt Rate - Afr Amer 51 mL/min (>60); Globulin 4.1 g/dL (2.2-4.2); Glucose 97 mg/dL (74-106); High Density Lipoprotein 52 mg/dL; Potassium 4.3 mmol/L (3.5-5.1); Protein, Total 7.6 g/dL (6.4-8.2); Sodium Level 137 mmol/L (136-145); Thyroid Stim Hormone (TSH) 3.38 uIU/mL (0.358-3.74); Triglycerides 181 mg/dL; Very Low Density Lipoprotein 36 mg/dL (5-40)
[2020-02-28 12:44] LABS: Hemoglobin A1c 6.7 % (4.2-6.3)
[2020-02-28 13:12] LABS: Protein, Urine (Random) 7.7 mg/dL (<11.9); Protein:Creat Ratio 76 mg/g CRE (0-200)
== END ==
PROVIDERS: PCP Family Medicine; Referring Provider Family Medicine; Visit Provider Family Medicine
DX: I12.9 Hypertensive chronic kidney disease with stage 1 through stage 4 chronic kidney disease, or unspecified chronic kidney disease (principal); N18.3 Chronic kidney disease, stage 3 (moderate); E11.22 Type 2 diabetes mellitus with diabetic chronic kidney disease; M35.3 Polymyalgia rheumatica; E03.9 Hypothyroidism, unspecified; E55.9 Vitamin D deficiency, unspecified
CPT/HCPCS: 36415; 80053; 80061; 82306; 82570; 83036; 84156; 84443; 85025; 85652

== ENCOUNTER → 2020-07-12 12:45 | Outpatient (CLI) | payer MEDICARE, OTHER, SELFPAY ==
[2020-04-12 12:50] VITALS: BMI 36.0
[2020-07-12 15:13] LABS: Absolute Lymphocyte Count 2.63 X10^3/uL (0.83-4.51); Absolute Neutrophil Count 4.4 X10^3/uL (2.0-7.7); Basophil# 0.09 X10^3/uL; Eosinophil# 0.36 X10^3/uL; Eosinophils% 4.2 % (0-5); Hematocrit 45.5 % (37-47); Hemoglobin 14.5 g/dL (12.0-15.0); Lymphocyte # 2.63 X10^3/ul (4.0); Lymphocyte % 30.5 % (19-41); Mean Corp Hgb Conc 31.9 g/dL (32-36); Mean Platelet Vol. 9.4 fl (6.2-12.0); Monocyte# 1.17 X10^3/uL; Monocyte% 13.6 % (0-10); NRBC Flagged by Analyzer 0 % (0-5); Neutrophil # 4.36 X10^3/uL (2.7-7.7); Neutrophil % 50.5 % (47-70); Platelet Count 284 K/mm3 (150-450); RBC Distribution Width CV 12.9 % (11.6-14.6); Red Blood Count 4.84 M/mm3 (4.2-5.4); White Blood Count 8.6 K/mm3 (4.4-11.0)
[2020-07-12 15:28] LABS: Cholesterol 200 mg/dL (200); High Density Lipoprotein 55 mg/dL; Triglycerides 179 mg/dL; Very Low Density Lipoprotein 36 mg/dL (5-40)
[2020-07-12 15:36] LABS: Vitamin D,25 Hydroxy 68.7 ng/mL
== END ==
PROVIDERS: PCP Family Medicine; Referring Provider Family Medicine; Visit Provider Family Medicine
DX: I10 Essential (primary) hypertension (principal); E11.9 Type 2 diabetes mellitus without complications; E78.5 Hyperlipidemia, unspecified; E55.9 Vitamin D deficiency, unspecified
CPT/HCPCS: 36415; 80061; 82043; 82306; 82570; 83036; 85025

== ENCOUNTER → 2020-07-17 12:07 | Outpatient (CLI) | payer MEDICARE, OTHER, SELFPAY ==
[2020-04-12 12:50] VITALS: BMI 36.0
--- NOTE | 2020-07-17 12:10 | RAD_ITS ---
STUDY: X-RAY - LEFT HAND REASON FOR EXAM: Female, 69 years old. Finger pain TECHNIQUE: 3 view(s) of the hand. COMPARISON: None. FINDINGS: Normal radiocarpal articulation. Normal distal radioulnar joint. Normal visualized carpal bones. Normal carpal articulations Normal carpometacarpal articulation of the thumb. Normal second through fifth carpometacarpal joints. Normal metacarpi. Normal metacarpophalangeal joint of the thumb. Normal interphalangeal joint of the thumb. Normal proximal and distal phalanges of the thumb. Normal metacarpophalangeal joints of the second through fifth fingers. Normal proximal and distal interphalangeal joints of the second through fifth fingers. Normal phalanges of the second through fifth fingers. Mild soft tissue swelling. RAD/Hand Min 3 Views IMPRESSION: Mild soft tissue swelling. Electronically Signed: Anibal Lan, at 12:23 EDT , Service support ,
--- NOTE | 2020-07-17 12:10 | RAD_ITS ---
STUDY: X-RAY - RIGHT HAND REASON FOR EXAM: Female, 69 years old. Finger pain TECHNIQUE: 3 view(s) of the hand. COMPARISON: None. FINDINGS: Normal radiocarpal articulation. Normal distal radioulnar joint. Normal visualized carpal bones. Normal carpal articulations Normal carpometacarpal articulation of the thumb. Normal second through fifth carpometacarpal joints. Normal metacarpi. Normal metacarpophalangeal joint of the thumb. Normal interphalangeal joint of the thumb. Normal proximal and distal phalanges of the thumb. Normal metacarpophalangeal joints of the second through fifth fingers. There is mild articular joint space narrowing of the proximal and distal interphalangeal joints of the second through fifth fingers, but without erosive changes or periarticular soft tissue swelling. Normal phalanges of the second through fifth fingers. The soft tissue structures are unremarkable. RAD/Hand Min 3 Views IMPRESSION: Degenerative joint disease of the hand, as described above. Electronically Signed: Anibal Lan, at 12:22 EDT , Service support ,
== END ==
PROVIDERS: PCP Family Medicine; Referring Provider Family Medicine; Visit Provider Family Medicine
DX: M19.041 Primary osteoarthritis, right hand (principal); M79.642 Pain in left hand
CPT/HCPCS: 73130

== ENCOUNTER → 2020-08-27 12:22 | Outpatient (CLI) | payer MEDICARE, OTHER, SELFPAY ==
[2020-08-27 13:11] LABS: Hematocrit 44.7 % (37-47); Hemoglobin 14.3 g/dL (12.0-15.0); Mean Corpuscular Hgb 29.9 pg (27.0-32.0); Mean Corpuscular Volume 93.3 fL (81-99); Mean Platelet Vol. 9.1 fl (6.2-12.0); Platelet Count 259 K/mm3 (150-450); RBC Distribution Width CV 12.8 % (11.6-14.6); RBC Distribution Width SD 43.8 fl (35.1-43.9); Red Blood Count 4.79 M/mm3 (4.2-5.4); White Blood Count 7.6 K/mm3 (4.4-11.0)
[2020-08-27 13:50] LABS: Vitamin B12 566 pg/mL (211-911)
[2020-08-27 14:03] LABS: ALB/GLOB Ratio 0.8 RATIO (0.9-2.4); AST(SGOT) 18 U/L (15-37); Alanine Aminotransfer ALT/SGPT 18 U/L (13-56); Albumin, Serum 3.5 g/dL (3.2-5.0); Alkaline Phosphatase 68 U/L (45-117); Anion Gap 7 (5-15); BUN 14 mg/dL (7-18); BUN/Creat Ratio 10.9 RATIO (10-20); Calcium,Total 9.1 mg/dL (8.5-10.1); Chloride 104 mmol/L (98-107); Creatinine, Serum 1.29 mg/dL (0.55-1.02); EST Glomerular Filtration Rate 43 mL/min (>60); Est Glom Filt Rate - Afr Amer 52 mL/min (>60); Globulin 4.5 g/dL (2.2-4.2); Glucose 115 mg/dL (74-106); Potassium 3.7 mmol/L (3.5-5.1); Sodium Level 137 mmol/L (136-145); Thyroid Stim Hormone (TSH) 4.15 uIU/mL (0.358-3.74)
[2020-08-28 16:08] LABS: Free Kappa Light Chains 33.4 mg/L (3.3-19.4); Free Lambda Light Chains 22.6 mg/L (5.7-26.3)
== END ==
PROVIDERS: PCP Family Medicine; Referring Provider Psychiatry & Neurology Neurology; Visit Provider Psychiatry & Neurology Neurology
DX: G25.5 Other chorea (principal); G31.89 Other specified degenerative diseases of nervous system; G62.9 Polyneuropathy, unspecified; E11.9 Type 2 diabetes mellitus without complications; E78.5 Hyperlipidemia, unspecified
CPT/HCPCS: 36415; 80053; 82607; 82746; 83883; 84443; 85027

== ENCOUNTER → 2020-09-04 07:10 | Outpatient (CLI) | payer MEDICARE, OTHER, SELFPAY ==
[2020-04-12 12:50] VITALS: BMI 36.0
--- NOTE | 2020-09-04 07:11 | MRI_ITS ---
STUDY: MRI BRAIN WITHOUT CONTRAST REASON FOR EXAM: Female, 70 years old. cherise disease -- facial and extremities constant motion TECHNIQUE: Standardized multiplanar fat and water weighted pulse sequences were obtained. COMPARISON: 07/12/2013 FINDINGS: There is moderate cerebral atrophy with widening of the extra-axial spaces and ventricular dilatation. There are multiple white matter hyperintensities, distributed throughout the deep white matter tracts of the cerebral hemispheres, consistent with moderate chronic white matter ischemic changes. There is no evidence for recent intracranial ischemia or other cause of cytotoxic edema on diffusion weighted imaging (DWI). Normal T2* images of the brain without demonstrated susceptibility artifact. There is no demonstrated hemosiderin stain. Normal bilateral basal ganglia. Normal thalami. There is no extra-axial fluid accumulation. Normal flow voids within the major intracranial circulation suggesting patency by spin echo criteria. Normal sella turcica, pituitary gland, infundibular stalk, optic chiasm and hypothalamus. Normal tectal plate and pineal gland. Normal midbrain, ethan and medulla. Normal cerebellum. Normal basal cisterns. Normal bilateral temporal bones. Normal bilateral internal auditory canals. There are bilateral ocular lens implants with otherwise normal intraorbital contents. Normal visualized paranasal sinuses. Normal calvarium and skull base. Normal visualized soft tissue structures. Normal visualized upper cervical spine. MRI/Brain without Contrast IMPRESSION: Involutional changes of the brain, as described above. Electronically Signed: Young Poole MD at 8:39 EST Tel , Service support ,
== END ==
PROVIDERS: PCP Family Medicine; Referring Provider Psychiatry & Neurology Neurology; Visit Provider Psychiatry & Neurology Neurology
DX: G10 Huntington's disease (principal)
CPT/HCPCS: 70551

== ENCOUNTER → 2020-10-16 09:58 | Outpatient (CLI) | payer MEDICARE, OTHER, SELFPAY ==
[2020-04-12 12:50] VITALS: BMI 36.0
[2020-10-16 10:31] LABS: Absolute Lymphocyte Count 2.25 X10^3/uL (0.83-4.51); Absolute Neutrophil Count 3.2 X10^3/uL (2.0-7.7); Basophil# 0.08 X10^3/uL; Basophil% 1.2 % (0-1); Eosinophil# 0.53 X10^3/uL; Eosinophils% 7.7 % (0-5); Hematocrit 46.1 % (37-47); Hemoglobin 15.3 g/dL (12.0-15.0); Lymphocyte # 2.25 X10^3/ul (4.0); Lymphocyte % 32.6 % (19-41); Mean Corp Hgb Conc 33.2 g/dL (32-36); Mean Corpuscular Hgb 30.5 pg (27.0-32.0); Mean Corpuscular Volume 91.8 fL (81-99); Mean Platelet Vol. 9.4 fl (6.2-12.0); Monocyte# 0.85 X10^3/uL; Monocyte% 12.3 % (0-10); NRBC Flagged by Analyzer 0 % (0-5); Neutrophil # 3.19 X10^3/uL (2.7-7.7); Neutrophil % 46.1 % (47-70); Platelet Count 256 K/mm3 (150-450); RBC Distribution Width CV 13.1 % (11.6-14.6); RBC Distribution Width SD 43.9 fl (35.1-43.9); Red Blood Count 5.02 M/mm3 (4.2-5.4); White Blood Count 6.9 K/mm3 (4.4-11.0)
[2020-10-16 10:43] LABS: Protein, Urine (Random) 23.8 mg/dL (<11.9); Protein:Creat Ratio 138 mg/g CRE (0-200)
[2020-10-16 10:48] LABS: PTHIN 89.1 pg/mL (18.4-80.1)
[2020-10-16 10:49] LABS: Hemoglobin A1c 5.8 % (3.8-5.6)
[2020-10-16 11:05] LABS: ALB/GLOB Ratio 0.9 RATIO (0.9-2.4); AST(SGOT) 24 U/L (15-37); Alanine Aminotransfer ALT/SGPT 23 U/L (13-56); Albumin, Serum 3.9 g/dL (3.2-5.0); Alkaline Phosphatase 73 U/L (45-117); Anion Gap 5 (5-15); BUN 13 mg/dL (7-18); Chloride 107 mmol/L (98-107); Cholesterol 181 mg/dL (200); EST Glomerular Filtration Rate 43 mL/min (>60); Est Glom Filt Rate - Afr Amer 52 mL/min (>60); Globulin 4.5 g/dL (2.2-4.2); Glucose 101 mg/dL (74-106); High Density Lipoprotein 51 mg/dL; Phosphorus 3.5 mg/dL (2.5-4.9); Potassium 4.4 mmol/L (3.5-5.1); Protein, Total 8.4 g/dL (6.4-8.2); Sodium Level 139 mmol/L (136-145); T4 Free Direct 0.88 ng/dL (0.76-1.46); Thyroid Stim Hormone (TSH) 2.11 uIU/mL (0.358-3.74); Triglycerides 175 mg/dL; Very Low Density Lipoprotein 35 mg/dL (5-40)
[2020-10-16 11:06] LABS: Vitamin D,25 Hydroxy 53.8 ng/mL
[2020-10-18 16:08] LABS: Albumin 3.8 g/dL (2.9-4.4); Alpha-1-Globulins 0.2 g/dL (0.0-0.4); Gamma Globulin 1.4 g/dL (0.4-1.8); Immunoglobulin A 581 mg/dL (64-422); Immunoglobulin G 1301 mg/dL (586-1602); Immunoglobulin M 53 mg/dL (26-217); PROEL- TOTAL PROTEIN 7.8 g/dL (6.0-8.5)
== END ==
PROVIDERS: Psychiatry & Neurology Neurology; PCP Family Medicine; Referring Provider Family Medicine; Visit Provider Family Medicine
DX: E11.22 Type 2 diabetes mellitus with diabetic chronic kidney disease (principal); N18.30 Chronic kidney disease, stage 3 unspecified; E55.9 Vitamin D deficiency, unspecified; E78.5 Hyperlipidemia, unspecified; E03.9 Hypothyroidism, unspecified; G62.9 Polyneuropathy, unspecified
CPT/HCPCS: 80053; 80061; 82306; 82570; 82784; 83036; 83970; 84100; 84156; 84165; 84439; 84443; 85025; 86334; 86335

== ENCOUNTER → 2020-10-23 10:36 | Outpatient (CLI) | payer MEDICARE, OTHER, SELFPAY ==
[2020-10-23 13:25] LABS: Ferritin 113 ng/mL (8-252); Iron 60 ug/dL (50-170); Iron Binding Capacity,Total 282 ug/dL (250-450); PERCENT IRON SATURATION 21.3 % (15.0-55.0)
[2020-10-24 07:43] LABS: Transferrin 208 mg/dL (192-364)
== END ==
PROVIDERS: PCP Family Medicine; Referring Provider Family Medicine; Visit Provider Family Medicine
DX: D75.1 Secondary polycythemia (principal); I10 Essential (primary) hypertension; E03.9 Hypothyroidism, unspecified; E78.5 Hyperlipidemia, unspecified; E55.9 Vitamin D deficiency, unspecified
CPT/HCPCS: 36415; 82728; 83540; 83550; 84466

== ENCOUNTER 2020-11-13 09:30 | Outpatient (RCR) | payer MEDICARE, OTHER, SELFPAY ==
--- NOTE | 2020-11-04 08:47 | HP.PTEVAL ---
Patient's Visit Information ELIZABETH HOPE is a 70 year old F referred to Physical Therapy by Dr. Gm Flores MD with a diagnosis of Loss of balance. Date of Evaluation: 11/04/20 Physical Therapist: MONY FoleyT, OCS, CSCS - Visit Plan Frequency: 2x /Week Duration: 4-6 Weeks Plan: 2x/week for 4-6 weeks for. 1. teach LE strength for HEP. 2. Balance ex for vest and head movement and progress to HEP. 3. Emphasize need to use wh walker for safety, gait training. - Subjective Doctor sent her becasue she fell at Thanksgiving and hit head and needed stitches. doesn't remember the fall. did go to ER and got stitches. Uses cane at home most of time, was not using it when she fell. Not sure why. Has wh walker at home. Has one in house and one in car. Sleep is OK, interrupted with head pain since she fell. Live alone in one story house with basement that she does not use. Two wooden steps to enter with railing. Basic ADLs are I. No regular exercises. Not employes. Spends day wathing TV and listening to music. Eats with friend a couple times per week. Drives in daylight. has neuropathy for years form DM. Describes h/o mienieres surgery likely vestibular nerve ectomy - Objective Walks with cane unsteady. Walks with wh walker mod I and much safer however oblivious to rugs on the floor whcih she tends to scrape up with the walker. Unsafe without AD. Trasnfers I bed adn chair. Steps require railing and weak L >R hip. B hip strength 4-, knee strength 3+ ext adn flexion, ankle strength 3+. reflexes 1/3 patella and achilles, no clonus. Sensation at deficit to gross light touch B fet and ankles. Coordination to reciprocal toe tap fair, ankle movement coordination ev/inv, poor. - Balance Scores Functional Gait Assessment Score: 10 % Disability: 66.6700 - Goals Goal 1:: FGA to show improved balance Goal Time Frame: 4-6 Weeks Goal 2:: Pt feel 50% safer and able to walk with cane in most everyday situations safely Goal Time Frame: 4-6 Weeks Goal 3:: I approp home balance and strength LE ex Goal Time Frame: 4-6 Weeks - Rehabilitation Potential Physical Therapy Diagnosis: Neuroapthy and h/o menieres surgery leading to unstable gait/fall risk. Rehabilitation Potential: Questionable - Anticipated Interventions Patient/Client Instruction: Educate patient on: Condition, Plan of Care For the Purpose of:: To improve muscle performance and motor function, To increase tolerance to activity/condition/position, To improve balance Therapeutic Exercise to Include: Strength training, Balance training, Gait and locomotor training For the Purpose of:: To improve balance, To improve safety Thank you for the opportunity to evaluate your patient. For Medicare and Medicare HMO plans, please review the plan of care and approve it. It will need to be FAXED BACK to us at [phone] for Medicare purposes. For Medicare only, by signing this I certify the plan of care. Please let me know if there are questions or concerns regarding this plan of care. Physician Signature: Date:
--- NOTE | 2021-01-02 15:25 | HP.PT.NRP ---
ELIZABETH HOPE was seen in my office for initial evaluation on 11/04/20. The following Plan of Care was established for this patient: Initial Frequency: 2x /Week Initial Duration: 4-6 Weeks Patient/Client Instruction: Educate patient on: Condition, Plan of Care For the Purpose of:: To improve muscle performance and motor function, To increase tolerance to activity/condition/position, To improve balance Therapeutic Exercise to Include: Strength training, Balance training, Gait and locomotor training For the Purpose of:: To improve balance, To improve safety This patient was last seen in our office 11/13/20. Pertinent comments regarding their Physical therapy will appear below: Pt seen 3 visits of POC and then no showed as she was in the hospital. At this point, it has been over 6 weeks adn I will discontinue due to nonattendance. At this point I will be discontinuing this patient from physical therapy. I would be happy to see this patient again in the future if found appropriate by the physician. Thank you! Sixto Broderick, DPT, OCS, CSCS
== END 2020-11-13 19:00 | disposition home or self-care (01) ==
LOC: PT 09:30
PROVIDERS: PCP Family Medicine; Referring Provider Family Medicine; Visit Provider Family Medicine
DX: R26.89 Other abnormalities of gait and mobility (principal)
CPT/HCPCS: 97110; 97162

== ENCOUNTER 2020-11-20 13:11 | Inpatient (IN) | payer MEDICARE, OTHER, SELFPAY ==
[2020-11-20] VITALS (13 sets, daily range): BP systolic 104–131; BP diastolic 51–95; PULSE 64–87; RESP 15–20; TEMP 36.3–37.1; O2SAT 90–98; BMI 34.3; BMI 32.1
--- NOTE | 2020-11-20 13:37 | CT_ITS ---
STUDY: CT BRAIN WITHOUT CONTRAST REASON FOR EXAM: Female, 70 years old. Headache, confusion RADIATION DOSAGE (If Supplied By Facility): CTDIvol = ( 44.99 ) mGy, DLP = ( 796.11 ) mGycm TECHNIQUE: Transaxial CT imaging of the brain was performed without administration of intravenous contrast material. Individualized dose optimization techniques were used for this CT. COMPARISON: No relevant priors. FINDINGS: Normal soft tissue structures. Normal calvarium. There is mild cerebral atrophy with widening of the extra-axial spaces and ventricular dilatation. There are areas of decreased attenuation within the white matter tracts of the supratentorial brain, consistent with microvascular disease changes. Normal basal ganglia and thalami. Normal brainstem. 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 There are no findings of an acute ischemic infarction. Normal visualized paranasal sinuses. CT/Brain/Head without Contrast IMPRESSION: Chronic involutional changes of the brain. No acute hemorrhage Electronically Signed: Silvio Dumont MD at 14:13 EST , Service support ,
--- NOTE | 2020-11-20 13:37 | EKG12_ITS ---
Test Reason : Blood Pressure : / mmHG Vent. Rate : 073 BPM Atrial Rate : 073 BPM P-R Int : 178 ms QRS Dur : 076 ms QT Int : 434 ms P-R-T Axes : 018 007 036 degrees QTc Int : 478 ms Suspect unspecified pacemaker failure Normal sinus rhythm Low voltage QRS Nonspecific T wave abnormality Abnormal ECG Confirmed by KAVITA PROCTOR, BILL ([id number]), makeup editor TATA ALMEIDA ([id number]) on 11/21/2020 2:12:01 PM Referred By: JOCELYN Confirmed By:BILL WALLS MD
--- NOTE | 2020-11-20 13:37 | RAD_ITS ---
STUDY: X-RAY CHEST REASON FOR EXAM: Female, 70 years old. Cough and confusion TECHNIQUE: Single AP portable view of the chest. COMPARISON: 11/13/2019 FINDINGS: EKG leads overlie the chest The lungs are clear and expanded. There is no demonstrated pleural abnormality. Normal size heart. Normal mediastinum and tabby. Normal visualized pulmonary arteries. Normal visualized aortic arch and descending thoracic aorta. There are diffuse degenerative changes of the visualized thoracic spine. Normal visualized ribs, clavicles, and shoulders. There is no demonstrated abnormality of the visualized soft tissue structures of the upper abdomen. RAD/Chest 1 View (Portable) IMPRESSION: No acute pulmonary process Electronically Signed: Silvio Dumont MD at 14:14 EST , Service support ,
--- NOTE | 2020-11-20 13:41 | ED.DCSUM_ITS ---
- ER Visit Summary Date of Service: 11/20/20 Chief Complaint: Confusion History of Present Illness: The patient is a 70 F who presents with confusion that was noticed 2 days ago. Patient was last known well 5 days ago. Son states he saw the patient 5 days ago when she was doing well. Son states that he did not seen the patient until 2 days ago. Son states the patient has been acting confused and has been getting worse. Son states that the patient's pills were mixed up and out of her daily pill counter. He does not know if the patient took the wrong medication or if she has not been taking any of her medication. Son states the patient thinks that her grandchildren are in the house. Patient denies seeing anybody there. Son states that the patient was not seeing anything or having visual or auditory hallucinations at that time he felt that she was just confused as to where her grandchildren were at. Patient does admit to some mild pain in her neck and back. Patient denies any fevers or chills. Physical Examination: Vital signs are stable. Patient is afebrile. Patient is in no acute distress. Oral mucosa is pink and moist. Neck is supple. Trachea is midline. There is no JVD noted. Heart was regular rate and rhythm. Lungs are clear and equal bilaterally. Abdomen is soft. Bowel sounds are normal. There is no tenderness. There is no rebound or guarding noted. Skin is warm dry. Awake, alert, and oriented to person and place. Cranial nerves II through XII are intact. There are no focal motor or sensory deficits noted. Extremities are intact. There is mild calf tenderness but there is no edema. Test Results: CBC was normal. Comprehensive metabolic profile showed a creatinine 1.44 this was only slightly increased from previous results. PT with INR and PTT were normal. Urinalysis was normal. Troponin was normal. Lactate was normal. Covid antigen was negative. EKG was obtained. On my interpretation, there is a normal sinus rhythm with a rate of 73. There are no acute ST or T wave changes noted. This was unchanged compared to previous EKG dated 10/06/2019. Portable 1 view chest x-ray was obtained. On my interpretation, lung nowak are clear. There is normal cardiac silhouette. Bony thorax is normal. There is no acute process noted. Radiologist also interpreted the x-ray and agrees. CT scan of the brain was obtained. There is no acute intracranial abnormality. Emergency Department Course and Treatment: Patient is feeling better on reevaluation. She is still only oriented to person and place. Case was discussed with the hospitalist. She will admit the patient to her service. Patient and family understood and were agreeable with the plan. All questions were answered. Disposition: Admit to hospital Impression: 1. Acute confusion This note was generated with [employer] dictation software. It may contain incorrect words, spelling, and punctuation that were not noted in review of the chart prio r to signing ED Disposition - Plan for ED Patient: Disposition: Acute Care Hospital [facility]
[2020-11-20 13:51] LABS: Absolute Lymphocyte Count 2.31 X10^3/uL (0.83-4.51); Absolute Neutrophil Count 4.2 X10^3/uL (2.0-7.7); Basophil# 0.06 X10^3/uL; Basophil% 0.7 % (0-1); Eosinophil# 0.44 X10^3/uL; Eosinophils% 5.4 % (0-5); Hematocrit 43.5 % (37-47); Hemoglobin 14.6 g/dL (12.0-15.0); Lymphocyte # 2.31 X10^3/ul (4.0); Lymphocyte % 28.2 % (19-41); Mean Corp Hgb Conc 33.6 g/dL (32-36); Mean Corpuscular Hgb 29.8 pg (27.0-32.0); Mean Corpuscular Volume 88.8 fL (81-99); Mean Platelet Vol. 9.1 fl (6.2-12.0); Monocyte# 1.18 X10^3/uL; Monocyte% 14.4 % (0-10); NRBC Flagged by Analyzer 0 % (0-5); Neutrophil # 4.18 X10^3/uL (2.7-7.7); Neutrophil % 51.1 % (47-70); Platelet Count 247 K/mm3 (150-450); RBC Distribution Width CV 13.2 % (11.6-14.6); RBC Distribution Width SD 42.7 fl (35.1-43.9); White Blood Count 8.2 K/mm3 (4.4-11.0)
[2020-11-20 14:06] LABS: International Normalized Ratio 1.1; Prothrombin Time (Protime)PT. 14.1 SECONDS (11.7-14.9)
[2020-11-20 14:07] LABS: ALB/GLOB Ratio 0.9 RATIO (0.9-2.4); AST(SGOT) 53 U/L (15-37); Alanine Aminotransfer ALT/SGPT 30 U/L (13-56); Albumin, Serum 3.9 g/dL (3.2-5.0); Alkaline Phosphatase 74 U/L (45-117); Anion Gap 4 (5-15); BUN 19 mg/dL (7-18); BUN/Creat Ratio 13.2 RATIO (10-20); Chloride 101 mmol/L (98-107); Creatinine, Serum 1.44 mg/dL (0.55-1.02); EST Glomerular Filtration Rate 38 mL/min (>60); Est Glom Filt Rate - Afr Amer 46 mL/min (>60); Estimated Creatinine Clearance 30.49 ml/min; Globulin 4.5 g/dL (2.2-4.2); Glucose 108 mg/dL (74-106); Partial Thromboplast Time 23.3 Seconds (24.1-36.2); Potassium 3.9 mmol/L (3.5-5.1); Protein, Total 8.4 g/dL (6.4-8.2); Sodium Level 134 mmol/L (136-145)
[2020-11-20 14:52] LABS: Bacteria 0 SEEN /hpf (None Seen); Mucous, Urine 0 SEEN /hpf (<or=2+); Red Blood Cells-Urine 0 SEEN /hpf (0-5); Squamous Epithelial Cells - UA 0 SEEN /hpf (5-10); White Blood Cells 0 SEEN /hpf (0-5)
[2020-11-20 14:56] LABS: Color, Urine Yellow (Yellow); Glucose, Dipstick Normal (Normal); Ketone-Dipstick Negative (Negative); Leukocyte Esterase-Dipstick Negative /ul (Negative); Nitrite-Dipstick Negative (Negative); Occult Blood-Urine Negative /ul (Negative); Protein-Dipstick Negative (Negative); Urine Bilirubin Dipstick Negative (Negative); Urine Clarity Clear (Clear); Urine Urobilinogen Normal (Normal)
[2020-11-20 15:18] LABS: Lactic Acid 0.9 mmol/L (0.4-1.9)
--- NOTE | 2020-11-20 15:57 | NURSING ---
DR DA SILVA FOR DR BANKS
--- NOTE | 2020-11-20 16:03 | NURSING ---
PCU CONFUSION PAINTSIL
--- NOTE | 2020-11-20 16:27 | HP.PCM_ITS ---
Problem List (1) Hyperlipidemia Status: Chronic Qualifiers: Hyperlipidemia type: unspecified Qualified Code(s): E78.5 - Hyperlipidemia, unspecified (2) Essential hypertension Status: Chronic (3) Meniere disease Status: Chronic Qualifiers: Laterality: left Qualified Code(s): H81.02 - Meniere's disease, left ear (4) Chronic renal insufficiency Status: Chronic Qualifiers: Chronic kidney disease stage: stage 3 (moderate) Chronic kidney disease stage 3 subtype: unspecified whether 3a or 3b Qualified Code(s): N18.30 - Chronic kidney disease, stage 3 unspecified (5) Thyroid disease Status: Chronic History of Present Illness Date of Admission: 11/20/20 Chief Complaint: Acute onset of confusion - 1 day The patient is a 70 year old F with past medical history of idiopathic extrapyramidal movement disorder, who follows with neurology- Dr. Niño, in the outpatient, bilateral peripheral neuropathy, M?ni?re's disease status post left labyrinthectomy comes in with confusion. Patient lives alone with his son living next door. Her grandkids went to check in on her head and she was confused and not making sense. His son had seen her a couple of days and realized that she had mixed her medications up, and appeared not to be taking her medications properly. She has not been on any new medication or fever or chills. No diarrhea, nausea or vomiting./ Vitals in the ED showed temperature of 97.4F, heart rate 87, blood pressure 114/95, respiratory 16, SPO2 was 90-92% on room air. CBCD was unremarkable. INR 1.1. Na. 134, potassium 3.9, chloride 101, bicarbonate 29, BUN 19, creatinine 1.44, previous creatinine is around 1.2?1.3. UA is unremarkable. CT scan of the brain showed chronic involutional changes of the brain. No acute hemorrhage. Chest x-ray shows no acute cardiopulmonary process. Past Medical History Past Medical History (Chronic Problems): Chronic Problems (Last Reviewed 10/17/20 @ 15:44 by Rita Valentine) Hyperlipidemia (Chronic) Essential hypertension (Chronic) Meniere disease (Chronic) Chronic renal insufficiency (Chronic) Thyroid disease (Chronic) Diabetes (Chronic) Medical History: Medical History (Last Reviewed 10/17/20 @ 15:44 by Rita Valentine) Hyperlipidemia (Chronic) E78.5 Essential hypertension (Chronic) I10 Meniere disease (Chronic) H81.09 Chronic renal insufficiency (Chronic) N18.9 Thyroid disease (Acute) E07.9 Diabetes (Acute) E11.9 Asthma J45.909 Back pain M54.9 Difficulty balancing R29.818 Fatigue R53.83 History of arthritis Z87.39 Incontinence R32 Knee pain M25.569 Neck pain M54.2 SOB (shortness of breath) R06.02 Allergies succinylcholine Allergy (Verified 11/20/20 13:15) MUSCLE CONTRACTED Home Medications: Ambulatory Orders Medication Instructions Recorded Lorazepam [Ativan] 1 mg PO DAILY PRN 04/10/16 Gabapentin [Neurontin] 300 mg PO TID 10/06/19 Sertraline HCl 100 mg PO DAILY 10/06/19 levothyroxine 75 mcg tablet 112.5 mcg PO LYNNE 08/19/20 Benztropine Mesylate 2 mg PO TID 11/20/20 Levothyroxine [Synthroid] 75 mcg PO MOTUWETHFRSA 11/20/20 Oxybutynin Chloride [Oxybutynin 10 mg PO DAILY 11/20/20 Chloride ER] Rosuvastatin Calcium 20 mg PO DAILY 11/20/20 Surgical History: - - s/p left labyrinthectomy 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 Denies: Anorexia, Chills, Fever, Night Sweats, Malaise, Weight Change Eyes: Denies: Blurred vision, Cataracts, Conjunctivae Inflammation, Pain, Redness, Vision Change HEENT: Denies: Difficulty Hearing, Difficulty Swallowing, Head Aches, Hearing Changes, Sinus Congestion, Sinus Drainage, Sore Throat Cardiovascular: Denies: Chest Pain, Palpitations Respiratory: Denies: Cough, Hemoptysis, Shortness of breath at rest, Shortness of breath upon exertion, Sputum production Gastrointestinal: Denies: Abdominal Pain, Nausea, Vomiting Genitourinary: Denies: Dysuria Musculoskeletal: Denies: Joint Pain, Joint Tenderness Skin: Denies: Rash, Wounds Neurological: Reports: Confusion, Incoordination - chronic. Denies: Difficulty swallowing, Focal weakness, Numbness, Tingling Psychiatric: Denies: Anxiety, Depression, Homicidal Ideations, Suicidal Ideations Hematologic/ Lymphatic: Denies: Easy Bruising, Easy Bleeding VTE Information - Inpt Only VTE Present on Admission: No VTE Pharm Prophylaxis ordered?: Yes - Physical Exam Vitals/I&O's: Vital Signs Temp Pulse Resp BP Pulse Ox 98.5 F 73 15 108/65 95 11/20/20 16:01 11/20/20 16:01 11/20/20 16:01 11/20/20 16:01 11/20/20 16:01 Oxygen Delivery Method Room Air Weight: 90.718 kg Body Mass Index (BMI) 34.3 Finger Stick Blood Glucose 95 General: Alert, Cooperative, No apparent distress, Confused - Alert oriented to person, time, but not place HEENT: Atraumatic, PERRLA, EOMI, Normocephalic Oral: Moist Mucosa Neck: Supple Lungs: Clear to auscultation, Normal air movement Cardiovascular: Regular rate, Regular Rhythm, Normal S1, Normal S2, No murmurs Abdomen: Bowel Sounds Present, Soft, Non Tender, Non-Distended, No Hepato- splenomegaly Extremities: No edema Skin: No rashes Musculoskeletal: No Tenderness to Palpation of Joints or Extremities Lymphatic: No Cervical, Supraclavicular, or Inguinal Adenopathy Neurological: Cranial nerves II-XII grossly intact, - - intermittent jerking of legs, chorea noted Psych/Mental Status: Normal Affect, Appropriate Microbiology Past 72 Hours 11/20/20 14:11 Mucosa - Nose SARS-CoV-2 Antigen (Rapid) - Final Laboratory Results 11/20/20 13:35: WBC 8.2, RBC 4.90, Hgb 14.6, Hct 43.5, MCV 88.8, MCH 29.8, MCHC 33.6, RDW Std Deviation 42.7, RDW Coeff of Myles 13.2, Plt Count 247, MPV 9.1, Immature Gran % (Auto) 0.200, Neut % (Auto) 51.1, Lymph % (Auto) 28.2, [place] % (Auto) 14.4 H, Eos % (Auto) 5.4 H, Baso % (Auto) 0.7, Absolute Neuts (auto) 4.2, Absolute Lymphs (auto) 2.31, Nucleated RBC % 0 11/20/20 13:35: PT 14.1, INR 1.1, APTT 23.3 L 11/20/20 13:35: Sodium 134 L, Potassium 3.9, Chloride 101, Carbon Dioxide 29.0, Anion Gap 4 L, BUN 19 H, Creatinine 1.44 H, Estim Creat Clear Calc 30.49, Est GFR (MDRD) Af Amer 46 L, Est GFR (MDRD) Non-Af 38 L, BUN/Creatinine Ratio 13.2, Glucose 108 H, Calcium 9.0, Total Bilirubin 0.50, AST 53 H, ALT 30, Alkaline Phosphatase 74, Troponin I < 0.015, Total Protein 8.4 H, Albumin 3.9, Globulin 4.5 H, Albumin/Globulin Ratio 0.9 11/20/20 14:18: Lactic Acid 0.9 11/20/20 14:45: Urine Color Yellow, Urine Clarity Clear, Urine pH 5.0, Ur Specific [place] 1.020, Urine Protein Negative, Urine Glucose (UA) Normal, Urine Ketones Negative, Urine Occult Blood Negative, Urine Nitrite Negative, Urine Bilirubin Negative, Urine Urobilinogen Normal, Ur Leukocyte Esterase Negative, Urine RBC 0 SEEN, Urine WBC 0 SEEN, Ur Squamous Epith Cells 0 SEEN, Urine Bacteria 0 SEEN, Urine Mucus 0 SEEN Current Medications Sodium Chloride (0.9% Saline Lock 10 Ml Syringe) 10 - 40 ml IV UD PRN PRN Reason: SALINE FLUSH Assessment/Plan All Active Problems (Last Reviewed 10/17/20 @ 15:44 by Rita Valentine) Thrush, oral (Acute) Acute bronchitis (Acute) Intrinsic (urethral) sphincter deficiency (ISD) (Acute) 1. Acute metabolic encephalopathy, unclear etiology for now, need to rule out acute CVA Patient has underlining history of dementia, idiopathic extrapyramidal movement disorder No signs of infection or electrolyte imbalances Initial CT of the brain is negative for acute abnormality. She had a recent MRI of the brain in September 2020 that showed chronic involuntary changes Will admit for stroke work-up, MRI brain, continue stroke protocol Start on aspirin 81 mg daily, lipid profile in a.m. We will hold off on ordering 2D echo or MRI of the head and neck until stroke is confirmed 2. Idiopathic extrapyramidal movement disorder/dyskinesia, continue benztropine Follow-up in the outpatient with neurology 3. Bilateral peripheral neuropathy, continue on gabapentin 4. Hypothyroidism, continue on synthroid 5. Anxiety/depression, continue on Ativan and sertraline 6. CKD stage III, creatinine is close to baseline Repeat blood work in a.m. 7. DVT prophylaxis with heparin subcu 8. CODE STATUS: DNRCC I had a long discussion with the patient's son who is her power of title one teacher for healthcare. Patient has a DNR paperwork. I discussed and explained in details the various types of DNR: DNR CCA, DNR CC. Patient's son, Young stated that patient would like to be a DNR CC in keeping with her wishes Time spent discussing CODE STATUS 18 minutes Inpatient E&M: 51760 Init Hosp L3 Procedures: 74585 Advncd Care Plan 30 Min
--- NOTE | 2020-11-20 17:15 | PCS.PANDOC ---
PANDEMIC DOCUMENTATION INITIATED: Date: 11/20/2020 Time: 8897
[2020-11-20] MEDS: LORazepam 1 MG Tablet PO (17:55)
[2020-11-20] MEDS: Aspirin 81 MG TAB.CHEW PO (21:58)
[2020-11-20] MEDS: Heparin Injection (Vial) 5,000 UNIT/ML VIAL 5000 UNIT SC (21:58)
[2020-11-20] MEDS: Atorvastatin Calcium 40 MG Tablet PO (21:58)
[2020-11-20] MEDS: Benztropine 2 MG Tablet PO (21:58)
[2020-11-20] MEDS: Gabapentin 300 MG Capsule PO (21:59)
[2020-11-21] VITALS (11 sets, daily range): BP systolic 102–126; BP diastolic 51–64; PULSE 42–99; RESP 16–18; TEMP 36.1–36.8; O2SAT 92–97
[2020-11-21] MEDS: Benztropine 2 MG Tablet PO ×3 (05:06→21:02)
[2020-11-21] MEDS: Heparin Injection (Vial) 5,000 UNIT/ML VIAL 5000 UNIT SC ×3 (05:06→21:01)
[2020-11-21] MEDS: Levothyroxine 75 MCG Tablet PO (05:06)
[2020-11-21] MEDS: Gabapentin 300 MG Capsule PO (05:06)
[2020-11-21 05:27] LABS: Absolute Lymphocyte Count 2.33 X10^3/uL (0.83-4.51); Absolute Neutrophil Count 2.8 X10^3/uL (2.0-7.7); Basophil# 0.07 X10^3/uL; Basophil% 1.1 % (0-1); Eosinophil# 0.51 X10^3/uL; Eosinophils% 7.8 % (0-5); Hematocrit 41.9 % (37-47); Hemoglobin 13.6 g/dL (12.0-15.0); Lymphocyte # 2.33 X10^3/ul (4.0); Lymphocyte % 35.4 % (19-41); Mean Corp Hgb Conc 32.5 g/dL (32-36); Mean Corpuscular Hgb 29.6 pg (27.0-32.0); Mean Corpuscular Volume 91.1 fL (81-99); Mean Platelet Vol. 9.2 fl (6.2-12.0); Monocyte# 0.87 X10^3/uL; Monocyte% 13.2 % (0-10); NRBC Flagged by Analyzer 0 % (0-5); Neutrophil # 2.79 X10^3/uL (2.7-7.7); Neutrophil % 42.3 % (47-70); Platelet Count 221 K/mm3 (150-450); RBC Distribution Width CV 13.2 % (11.6-14.6); RBC Distribution Width SD 44.4 fl (35.1-43.9); White Blood Count 6.6 K/mm3 (4.4-11.0)
[2020-11-21 05:52] LABS: ALB/GLOB Ratio 0.8 RATIO (0.9-2.4); AST(SGOT) 49 U/L (15-37); Alanine Aminotransfer ALT/SGPT 26 U/L (13-56); Albumin, Serum 3.2 g/dL (3.2-5.0); Alkaline Phosphatase 62 U/L (45-117); Anion Gap 6 (5-15); BUN 16 mg/dL (7-18); Calcium,Total 8.2 mg/dL (8.5-10.1); Chloride 103 mmol/L (98-107); Cholesterol 159 mg/dL (200); Creatinine, Serum 1.23 mg/dL (0.55-1.02); EST Glomerular Filtration Rate 46 mL/min (>60); Est Glom Filt Rate - Afr Amer 55 mL/min (>60); Globulin 4.1 g/dL (2.2-4.2); Glucose 94 mg/dL (74-106); High Density Lipoprotein 45 mg/dL; Potassium 3.7 mmol/L (3.5-5.1); Protein, Total 7.3 g/dL (6.4-8.2); Sodium Level 136 mmol/L (136-145); Triglycerides 169 mg/dL; Very Low Density Lipoprotein 34 mg/dL (5-40)
[2020-11-21] MEDS: 0.9% Saline Lock 10 ML Syringe IV (08:07)
[2020-11-21] MEDS: Aspirin 81 MG TAB.CHEW PO (08:07)
[2020-11-21] MEDS: Tolterodine Tartrate 2 MG CAP.SA PO (08:07)
[2020-11-21] MEDS: Sertraline 100 MG Tablet PO (08:08)
--- NOTE | 2020-11-21 08:30 | MRI_ITS ---
STUDY: MRI BRAIN WITHOUT CONTRAST REASON FOR EXAM: Female, 70 years old. confusion, PREV MRI 09/04/20 TECHNIQUE: Standardized multiplanar fat and water weighted pulse sequences were obtained. COMPARISON: 09/04/2020 FINDINGS: There is mild cerebral atrophy with widening of the extra-axial spaces and ventricular dilatation. There are multiple white matter hyperintensities, distributed throughout the deep white matter tracts of the cerebral hemispheres, consistent with mild chronic white matter ischemic changes. Normal bilateral basal ganglia. Normal thalami. There is no extra-axial fluid accumulation. Normal flow voids within the major intracranial circulation suggesting patency by spin echo criteria. Normal sella turcica, pituitary gland, infundibular stalk, optic chiasm and hypothalamus. Normal tectal plate and pineal gland. There are chronic white matter ischemic changes of the ethan. The midbrain and medulla are otherwise normal. Normal cerebellum. MRI/Brain without Contrast IMPRESSION: No acute intracranial abnormality. Mild chronic microvascular ischemic changes. Electronically Signed: Yi Herbert MD at 10:34 EST Tel , Service support ,
--- NOTE | 2020-11-21 10:58 | CASEMGMT ---
Assessment- SW called patient's son, Young to complete assessment as patient is confused. SW also confirmed addresses and phone numbers. Living situation- SW lives alone in a 1 story home with 3 entry steps. Her son lives next door. 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 Her son manages her finances. Patient was managing her medications, but he said that is why she ended up in the hospital. He figures he will have to help her with this from now on. Patient does drive every day into town. He said he is not sure she should be driving though. Past SNF/rehab: Patient has never been to a [place] [facility] [place]. Past HH: Patient has never had home health. LW: Yes and it is on file at [facility] POA: Yes and it is on file at [facility]. Her son Young is her Healthcare Power of personal injury attorney. Plan: Patient's son said he is not sure about discharge plan yet. He said he does not know any of the results of her tests yet. He plans on coming in a little later to find out test results. He said if patient is no better than when she came in she will have to go somewhere. SW told him we can see how she does with therapy and see test results and go from there. Calli PICKETT MSW
[2020-11-21 11:52] LABS: Thyroid Stim Hormone (TSH) 6.45 uIU/mL (0.358-3.74)
--- NOTE | 2020-11-21 13:19 | CHAPLAIN ---
Type of Pastoral Visit _x__ Initial Visit ___ Follow-up Visit ___ On-call Visit ___ General Patient Visit ___ Spiritual Assessment ___ Family Conference ___ Bereavement ___ Rapid Response ___ Code Blue ___ Other (describe below) Pastoral Care Referral From _x__ Patient ___ Family ___ Nurse ___ Physician ___ Crop Insurance Claims Adjuster ___ Program Director/Morning Show Host ___ Other (describe below) Sacrament/Intervention _x__ Active listening ___ Anointing ___ Nondenominational _x__ Bereavement ___ Communion ___ Ruth exploration ___ _x__ Life review _x__ Prayer ___ Reconciliation ___ Sacrament of Sick _x__ Supportive presence ___ Wedding ___ Other (describe below) Pastoral Comments patient discusses her grief in that her spouse in August and her daughter also recently ; pt says that she has friends that she used to eat out with but that recently changed; pt has a scientology connection but has not been attending recently; pt stated she was not sure why she had come into the hospital; pt welcomed presence and prayer; pt gave permission to call her scientology and morgue technician for prayer support; request for contacting scientology was on admission referral
--- NOTE | 2020-11-21 13:35 | PCM.PN.HOSP ---
<Randolph France PA - Last Filed: 11/21/20 13:35> Reason for Visit: confusion, fall Subjective: pt states she cannot recall the details of what happened yesterday. She knows that she felt weak and fell. She thinks she may have hit her head. She denies any LH or dizziness, or palpitations prior to. She does not remember what happened after the fall but that she ended up in the ER. She gave a report of her legs being weak but that he grandaughter was having weak legs and cycled back and forth talking about her and her grand daughter, seemingly confused. She states she does not quite feel back to normal but cannot quite articulate what is not right today. She denies fever/chills, cough/SOB, N/V/D. No CP/palp. Ongoing uncontrolled chronic mouth and upper ext movements. Vitals/I&O's: Vital Signs Temp Pulse Resp BP Pulse Ox 97.8 F 60 18 115/51 L 97 11/21/20 10:20 11/21/20 10:20 11/21/20 10:20 11/21/20 10:20 11/21/20 10:20 Oxygen Flow Rate (L/min) 2 Oxygen Delivery Method Nasal Cannula Weight: 187 lb 6.287 oz Body Mass Index (BMI) 32.1 Finger Stick Blood Glucose 95 Intake and Output for Last 24 Hours 11/19/20 11/20/20 11/21/20 23:59 23:59 23:59 Intake Total 580 / 580 Balance 580 / 580 General: Alert, Oriented x3, Cooperative HEENT: Atraumatic, PERRLA, EOMI, Normocephalic Neck: Supple, No JVD, Negative Carotid Bruits Lungs: Clear to auscultation, Normal air movement Cardiovascular: Regular rate, No murmurs Abdomen: Bowel Sounds Present, Soft, Non Tender Extremities: No edema, Capillary Refill Less than 3 Seconds Skin: No rashes, No breakdown Musculoskeletal: No Tenderness to Palpation of Joints or Extremities Neurological: Cranial nerves II-XII grossly intact Psych/Mental Status: Normal Affect, Appropriate, Alert and oriented to time, place, person, mood and affect Microbiology Past 72 Hours 11/20/20 14:11 Mucosa - Nose SARS-CoV-2 Antigen (Rapid) - Final Laboratory Results 11/20/20 13:35: WBC 8.2, RBC 4.90, Hgb 14.6, Hct 43.5, MCV 88.8, MCH 29.8, MCHC 33.6, RDW Std Deviation 42.7, RDW Coeff of Myles 13.2, Plt Count 247, MPV 9.1, Immature Gran % (Auto) 0.200, Neut % (Auto) 51.1, Lymph % (Auto) 28.2, Daniels % (Auto) 14.4 H, Eos % (Auto) 5.4 H, Baso % (Auto) 0.7, Absolute Neuts (auto) 4.2, Absolute Lymphs (auto) 2.31, Nucleated RBC % 0 11/20/20 13:35: PT 14.1, INR 1.1, APTT 23.3 L 11/20/20 13:35: Sodium 134 L, Potassium 3.9, Chloride 101, Carbon Dioxide 29.0, Anion Gap 4 L, BUN 19 H, Creatinine 1.44 H, Estim Creat Clear Calc 30.49, Est GFR (MDRD) Af Amer 46 L, Est GFR (MDRD) Non-Af 38 L, BUN/Creatinine Ratio 13.2, Glucose 108 H, Calcium 9.0, Total Bilirubin 0.50, AST 53 H, ALT 30, Alkaline Phosphatase 74, Troponin I < 0.015, Total Protein 8.4 H, Albumin 3.9, Globulin 4.5 H, Albumin/Globulin Ratio 0.9 11/20/20 14:18: Lactic Acid 0.9 11/20/20 14:45: Urine Color Yellow, Urine Clarity Clear, Urine pH 5.0, Ur Specific [place] 1.020, Urine Protein Negative, Urine Glucose (UA) Normal, Urine Ketones Negative, Urine Occult Blood Negative, Urine Nitrite Negative, Urine Bilirubin Negative, Urine Urobilinogen Normal, Ur Leukocyte Esterase Negative, Urine RBC 0 SEEN, Urine WBC 0 SEEN, Ur Squamous Epith Cells 0 SEEN, Urine Bacteria 0 SEEN, Urine Mucus 0 SEEN 11/21/20 05:02: WBC 6.6, RBC 4.60, Hgb 13.6, Hct 41.9, MCV 91.1, MCH 29.6, MCHC 32.5, RDW Std Deviation 44.4 H, RDW Coeff of Myles 13.2, Plt Count 221, MPV 9.2, Immature Gran % (Auto) 0.200, Neut % (Auto) 42.3 L, Lymph % (Auto) 35.4, Daniels % (Auto) 13.2 H, Eos % (Auto) 7.8 H, Baso % (Auto) 1.1 H, Absolute Neuts (auto) 2.8, Absolute Lymphs (auto) 2.33, Nucleated RBC % 0 11/21/20 05:02: Sodium 136, Potassium 3.7, Chloride 103, Carbon Dioxide 27.0, Anion Gap 6, BUN 16, Creatinine 1.23 H, Estim Creat Clear Calc 35.70, Est GFR (MDRD) Af Amer 55 L, Est GFR (MDRD) Non-Af 46 L, BUN/Creatinine Ratio 13.0, Glucose 94, Calcium 8.2 L, Total Bilirubin 0.50, AST 49 H, ALT 26, Alkaline Phosphatase 62, Total Protein 7.3, Albumin 3.2, Globulin 4.1, Albumin/Globulin Ratio 0.8 L, Triglycerides 169, Cholesterol 159, LDL Cholesterol 80, VLDL Cholesterol 34, HDL Cholesterol 45 11/21/20 05:02: TSH 6.45 H Current Medications Acetaminophen (Acetaminophen 325 Mg Tablet) 650 mg PO Q6H PRN PRN PRN Reason: Pain Score 1-10/Temp > 100.7 F Al Hydroxide/Mg Hydroxide (Mag Hydrox/Al Hydrox/Simeth 30 Ml Udc) 30 ml PO Q6H PRN PRN PRN Reason: Gastric Burning Albuterol Sulfate (Albuterol 2.5 Mg/3 Ml Vial.Neb.) 2.5 mg INHALATION Q2H PRN PRN PRN Reason: SOB/Wheezing Aspirin (Aspirin 81 Mg Tab.Chew) 81 mg PO DAILY@0800 [facility] Last Admin: 11/21/20 08:07 Dose: 81 mg Documented by: Atorvastatin Calcium (Atorvastatin Calcium 40 Mg Tablet) 40 mg PO QHS [facility] Last Admin: 11/20/20 21:58 Dose: 40 mg Documented by: Benztropine Mesylate (Benztropine 2 Mg Tablet) 2 mg PO TID [facility] Last Admin: 11/21/20 05:06 Dose: 2 mg Documented by: Heparin Sodium (Porcine) (Heparin Injection (Vial) 5,000 Unit/Ml Vial) 5,000 unit SC Q8 [facility] Last Admin: 11/21/20 05:06 Dose: 5,000 unit Documented by: Levothyroxine Sodium (Levothyroxine 75 Mcg Tablet) 75 mcg PO MoTuWeThFrSa@0600 [facility] Last Admin: 11/21/20 05:06 Dose: 75 mcg Documented by: Levothyroxine Sodium (Levothyroxine 75 Mcg Tablet) 112.5 mcg PO Hernández@0600 [facility] Morphine Sulfate (Morphine 2 Mg/Ml Syringe) 2 mg IV Q3H PRN PRN PRN Reason: Pain Score 6-10 Ondansetron HCl (Ondansetron 4 Mg/2 Ml Vial) 4 mg IV Q8H PRN PRN PRN Reason: NAUSEA/VOMITING Sertraline HCl (Sertraline 100 Mg Tablet) 100 mg PO DAILY [facility] Last Admin: 11/21/20 08:08 Dose: 100 mg Documented by: Sodium Chloride (0.9% Saline Lock 10 Ml Syringe) 10 - 40 ml IV UD PRN PRN Reason: SALINE FLUSH Last Admin: 11/21/20 08:07 Dose: 10 ml Documented by: Tolterodine Tartrate (Tolterodine Tartrate 2 Mg Cap.Sa) 2 mg PO DAILY [facility] Last Admin: 11/21/20 08:07 Dose: 2 mg Documented by: STROKE Vital Signs/Narrative: Vital Signs Temp Pulse Resp BP Pulse Ox 11/21/20 10:20 97.8 F 60 18 115/51 L 97 Medical Necessity - Tobacco Use Smoking Status: Never smoker Tobacco Use: Non-smoker Assessment/Plan All Active Problems (Last Reviewed 10/17/20 @ 15:44 by Rita Valentine) Thrush, oral (Acute) Acute bronchitis (Acute) Intrinsic (urethral) sphincter deficiency (ISD) (Acute) 1. Acute encephalopathy - toxic vs metabolic - some dehydration on presentation, also pt was not correctly taking medications at home and may have some effects due to gabapentin and ativan. These are held. MRI negative for stroke. PTOT evals. Follow up with Dr. Niño. Mildly elevated TSH, will check T4. UA negative. Trop neg. covid neg, blood cx pending. 2. Movement disorder, unclear etiology - movements similar to tardive dyskinesia. follows Dr. Niño. Continue benztropine. 3. BL peripheral neuropathy - as above gabapentin held, monitor for worsening of symptoms and consider resumption at lower dose if uncontrolled. 4. Anx/depression - continue zoloft 5. CKDIII - near baseline. mildly elevated BUN at presentation DVT ppx: heparin DC planning: PTOT, lives alone, may need short term SNF. This patient was seen by Randolph France PA-C under the supervision of Dr. Camejo. <Sixto Camejo - Last Filed: 11/21/20 15:32> Vitals/I&O's: Vital Signs Temp Pulse Resp BP Pulse Ox 36.6 C 60 18 115/51 L 97 11/21/20 10:20 11/21/20 10:20 11/21/20 10:20 11/21/20 10:20 11/21/20 10:20 Oxygen Flow Rate (L/min) 2 Oxygen Delivery Method Room Air Weight: 85 kg Body Mass Index (BMI) 32.1 Finger Stick Blood Glucose 95 Intake and Output for Last 24 Hours 11/19/20 11/20/20 11/21/20 23:59 23:59 23:59 Intake Total 1000 / 1000 Output Total 300 / 300 Balance 700 / 700 General: Cooperative, Confused HEENT: Atraumatic, Normocephalic Lungs: Clear to auscultation, Normal air movement Cardiovascular: Regular rate, No murmurs Abdomen: Bowel Sounds Present, Soft, Non Tender Extremities: No edema, No Calf Tenderness Skin: No rashes, No breakdown Neurological: Cranial nerves II-XII grossly intact, Motor Exam 5/5 strength throughout Psych/Mental Status: Normal Affect, Appropriate Microbiology Past 72 Hours 11/20/20 14:11 Mucosa - Nose SARS-CoV-2 Antigen (Rapid) - Final Laboratory Results 11/21/20 05:02: WBC 6.6, RBC 4.60, Hgb 13.6, Hct 41.9, MCV 91.1, MCH 29.6, MCHC 32.5, RDW Std Deviation 44.4 H, RDW Coeff of Myles 13.2, Plt Count 221, MPV 9.2, Immature Gran % (Auto) 0.200, Neut % (Auto) 42.3 L, Lymph % (Auto) 35.4, Daniels % (Auto) 13.2 H, Eos % (Auto) 7.8 H, Baso % (Auto) 1.1 H, Absolute Neuts (auto) 2.8, Absolute Lymphs (auto) 2.33, Nucleated RBC % 0 01/21/21 05:02: Sodium 136, Potassium 3.7, Chloride 103, Carbon Dioxide 27.0, Anion Gap 6, BUN 16, Creatinine 1.23 H, Estim Creat Clear Calc 35.70, Est GFR (MDRD) Af Amer 55 L, Est GFR (MDRD) Non-Af 46 L, BUN/Creatinine Ratio 13.0, Glucose 94, Calcium 8.2 L, Total Bilirubin 0.50, AST 49 H, ALT 26, Alkaline Phosphatase 62, Total Protein 7.3, Albumin 3.2, Globulin 4.1, Albumin/Globulin Ratio 0.8 L, Triglycerides 169, Cholesterol 159, LDL Cholesterol 80, VLDL Cholesterol 34, HDL Cholesterol 45 11/21/20 05:02: TSH 6.45 H 11/21/20 05:02: Free T4 0.93 Current Medications Acetaminophen (Acetaminophen 325 Mg Tablet) 650 mg PO Q6H PRN PRN PRN Reason: Pain Score 1-10/Temp > 100.7 F Al Hydroxide/Mg Hydroxide (Mag Hydrox/Al Hydrox/Simeth 30 Ml Udc) 30 ml PO Q6H PRN PRN PRN Reason: Gastric Burning Albuterol Sulfate (Albuterol 2.5 Mg/3 Ml Vial.Neb.) 2.5 mg INHALATION Q2H PRN PRN PRN Reason: SOB/Wheezing Aspirin (Aspirin 81 Mg Tab.Chew) 81 mg PO DAILY@0800 [facility] Last Admin: 11/21/20 08:07 Dose: 81 mg Documented by: Atorvastatin Calcium (Atorvastatin Calcium 40 Mg Tablet) 40 mg PO QHS [facility] Last Admin: 11/20/20 21:58 Dose: 40 mg Documented by: Benztropine Mesylate (Benztropine 2 Mg Tablet) 2 mg PO TID [facility] Last Admin: 11/21/20 14:52 Dose: 2 mg Documented by: Heparin Sodium (Porcine) (Heparin Injection (Vial) 5,000 Unit/Ml Vial) 5,000 unit SC Q8 [facility] Last Admin: 11/21/20 14:52 Dose: 5,000 unit Documented by: Levothyroxine Sodium (Levothyroxine 75 Mcg Tablet) 75 mcg PO MoTuWeThFrSa@0600 [facility] Last Admin: 11/21/20 05:06 Dose: 75 mcg Documented by: Levothyroxine Sodium (Levothyroxine 75 Mcg Tablet) 112.5 mcg PO Hernández@0600 [facility] Morphine Sulfate (Morphine 2 Mg/Ml Syringe) 2 mg IV Q3H PRN PRN PRN Reason: Pain Score 6-10 Ondansetron HCl (Ondansetron 4 Mg/2 Ml Vial) 4 mg IV Q8H PRN PRN PRN Reason: NAUSEA/VOMITING Sertraline HCl (Sertraline 100 Mg Tablet) 100 mg PO DAILY [facility] Last Admin: 11/21/20 08:08 Dose: 100 mg Documented by: Sodium Chloride (0.9% Saline Lock 10 Ml Syringe) 10 - 40 ml IV UD PRN PRN Reason: SALINE FLUSH Last Admin: 11/21/20 08:07 Dose: 10 ml Documented by: Tolterodine Tartrate (Tolterodine Tartrate 2 Mg Cap.Sa) 2 mg PO DAILY [facility] Last Admin: 11/21/20 08:07 Dose: 2 mg Documented by: Assessment/Plan Patient seen and examined independently. Data reviewed. I agree with the above note by the physician instructional assistant. 1. Acute encephalopathy: Likely combination of toxic and metabolic. Patient has known mild cognitive impairment versus dementia plus extrapyramidal movement disorder. But may also be combined with her medications including gabapentin and lorazepam. These medications have been discontinued. MRI was negative for stroke and no additional neurologic work-up is necessary at this time. 2. Debility: Patient lives by herself. Given the current circumstances her returning home is of concern. Inpatient E&M: [id number] [facility] L[address]
[2020-11-21 14:10] LABS: T4 Free Direct 0.93 ng/dL (0.76-1.46)
--- NOTE | 2020-11-21 14:56 | CASEMGMT ---
Addendum entered by Calli Medina 11/21/20 15:16: SW updated patient's son that [facility] would not have a bed for patient. SW did send a referral to [facility] and am waiting on them to get back to . Calli CASTILLO Original Note: SW spoke with patient's son when he arrived to [facility]. Patient is still very confused so he feels she does need to go to a SNF. SW gave him [facility] and [facility] lists with Medicare ratings. SAUL explained he will just need to pick at least 3 options. SW will then contact the facilities regarding patient. SAUL told him SW will be in touch with him when SW has more information. Patient's son marked 4 options. TCU was the first. SAUL spoke with [facility] and TCU will not have a bed until Wednesday. Patient will not be in the hospital until Wednesday. SAUL called his second choice [facility] regarding referral. Referral was faxed. Await their response. Calli CASTILLO
[2020-11-21] MEDS: Atorvastatin Calcium 40 MG Tablet PO (21:01)
[2020-11-22] VITALS (7 sets, daily range): BP systolic 109–120; BP diastolic 56–80; PULSE 61–81; RESP 15–18; TEMP 36.6; O2SAT 90–96
[2020-11-22] MEDS: Benztropine 2 MG Tablet PO ×2 (05:52→13:35)
[2020-11-22] MEDS: Heparin Injection (Vial) 5,000 UNIT/ML VIAL 5000 UNIT SC ×2 (05:52→13:35)
[2020-11-22] MEDS: Levothyroxine 75 MCG Tablet PO (05:52)
[2020-11-22] MEDS: Sertraline 100 MG Tablet PO (08:40)
[2020-11-22] MEDS: Tolterodine Tartrate 2 MG CAP.SA PO (08:40)
[2020-11-22] MEDS: Aspirin 81 MG TAB.CHEW PO (08:40)
--- NOTE | 2020-11-22 11:02 | PCM.EXTCARCO ---
- Diet 11/20/20 17:24 Diet: Cardiac - Heart Healthy Food consistency:: Soft & Bite Sized Liquid Consistency:: Regular/Thin Diet Comments: SUPERVISED; small bites & sips - Routine Orders/Code Status Suppository Type: Dulcolax 10mg Suppository Frequency: Daily PRN O2 Frequency: PRN Routine Lab Work: CBC - 5 days, BMP - 5 days Code Status: Full Code - Therapies Physical Therapy: Eval and Treat Occupational Therapy: Eval and Treat - Problem/Diagnosis (1) Encephalopathy acute Status: Acute (2) Debility Status: Chronic (3) Essential hypertension Status: Chronic (4) Hyperlipidemia Status: Chronic (5) Meniere disease Status: Chronic (6) Thyroid disease Status: Chronic (7) Intrinsic (urethral) sphincter deficiency (ISD) Status: Acute (8) Extrapyramidal and movement disorder, unspecified Status: Chronic - Allergies/Procedures Done in Hospital Allergies/Adverse Reactions: Allergies succinylcholine Allergy (Verified 11/20/20 13:15) MUSCLE CONTRACTED Procedures: None - Type of Care/Length of Stay Estimated LOS: Convalescent Care Less Than 30 days Type of Care Needed: Skilled Rehab Potential: Fair Prognosis: Fair - Additional Orders/Day of Discharge Day of Discharge: 11/22/20 - Dietary and Speech Recommendations Dietitian Recommendations/Changes: Continue cardiac diet, consistency per [employer]. Ensure Enlive w/ medpass if PO at meals fails. - Follow Up Care Primary Care Physician: Gm Flores MD [Primary Care Provider] - Please follow up with your Primary Care Physician in: 1-2 weeks Please Follow Up With: Kasi Niño MD When: 2 weeks
--- NOTE | 2020-11-22 11:03 | CASEMGMT ---
SAUL faxed PT/OT evaluations to [facility] this am. A little while later SAUL called [facility] and spoke with Klarissa. She said they can take patient today. She just asked that SAUL not send her around meal times which would be noon or 5p. SAUL told her SW will be in touch when SW has a time and SW fax orders once they are completed. SAUL called patient's son and let him know this information. SAUL also told him to gather some clothes together for her. SAUL also gave him the phone number to [facility] so he can call and ask about admission paperwork since patient is confused. Await orders. Plan: d/c to [facility] under skilled level of care on a convalescent stay. SAUL will arrange transportation with [facility]. Calli PICKETT MSW
--- NOTE | 2020-11-22 11:25 | PHA.DC.MR ---
Pharmacy Service has performed discharge medication reconciliation for this patient. The patient's discharge medication list was reviewed for discrepancies and discrepancies were resolved. Home Medications Sertraline HCl 100 mg PO DAILY 10/06/19 levothyroxine 75 mcg tablet 112.5 mcg PO LYNNE 08/19/20 Benztropine Mesylate 2 mg PO TID 11/20/20 Levothyroxine [Synthroid] 75 mcg PO [id number] 11/20/20 Oxybutynin Chloride [Oxybutynin Chloride ER] 10 mg PO DAILY 11/20/20 Rosuvastatin Calcium 20 mg PO DAILY 11/20/20 Acetaminophen [Tylenol Tablet] 650 mg PO Q6H PRN PRN tab 11/22/20 Mag Hydrox/Al Hydrox/Simeth [Mylanta II] 30 ml PO Q6H PRN PRN udc 11/22/20
--- NOTE | 2020-11-22 12:10 | PCM.DC.SUM ---
<Randolph France - Last Filed: 11/22/20 12:10> Discharge Date and Diagnosis - Problem List Patient Problems: Active and Suspected Problems (Last Reviewed 10/17/20 @ 15:44 by Rita Valentine) Encephalopathy acute (Acute) Intrinsic (urethral) sphincter deficiency (ISD) (Acute) Date of Admission: 11/20/20 Date of Discharge: 11/22/20 - Primary Discharge Diagnosis Acute Problems: Active Problems (Last Reviewed 10/17/20 @ 15:44 by Rita Valentine) Encephalopathy acute vs toxic - Secondary Discharge Diagnosis Chronic Problems: Chronic Problems (Last Reviewed 10/17/20 @ 15:44 by Rita Valentine) Debility (Chronic) Extrapyramidal and movement disorder, unspecified (Chronic) Hyperlipidemia (Chronic) Essential hypertension (Chronic) Meniere disease (Chronic) Chronic renal insufficiency (Chronic) Thyroid disease (Chronic) Diabetes (Chronic) Hospital Course and Treatment Imaging Results: IMAGING: CT/Brain/Head without Contrast IMPRESSION: Chronic involutional changes of the brain. No acute hemorrhage RAD/Chest 1 View (Portable) IMPRESSION: No acute pulmonary process MRI/Brain without Contrast IMPRESSION: No acute intracranial abnormality. Mild chronic microvascular ischemic changes. 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 The patient could not remember the details of what happened. Her grandchildren checked on her and she had fallen and was confused. She had not been taking her home medications appropriately recently either - including gabapentin and ativan. She had CT negative for acute processes. She had mildly elevated BUN and may have had some dehydration. She was admitted, given IV fluids, and gabapentin and ativan were held. MRI brain was obtained and was negative. Confusion and weakness did improve with these changes. She does have some mild conversational confusion despite that she is A/Ox3 now. She continued to have significant weakness with unsteady gait. She lives alone and would not be safe at home alone. SNF was recommended. She was discharged to SNF in stable condition. She will need follow up with her neurologist in 2 weeks, PCP 1-2 weeks. She should not be allowed to drive unless she has clearance from a neurologist. This patient was seen by Randolph France PA-C under the supervision of Dr. Camejo[] Patient Problems: Active and Suspected Problems (Last Reviewed 10/17/20 @ 15:44 by Rita Valentine) Encephalopathy acute (Acute) Intrinsic (urethral) sphincter deficiency (ISD) (Acute) - Physical Exam Vitals/I&O's: Vital Signs Temp Pulse Resp BP Pulse Ox 97.9 F 65 16 109/80 96 11/22/20 08:32 11/22/20 08:32 11/22/20 08:32 11/22/20 08:32 11/22/20 08:32 Oxygen Flow Rate (L/min) 2 Oxygen Delivery Method Nasal Cannula Weight: 186 lb 4.65 oz Body Mass Index (BMI) 32.1 Finger Stick Blood Glucose 95 Intake and Output for Last 24 Hours 11/20/20 11/21/20 11/22/20 23:59 23:59 23:59 Intake Total 1420 / 1620 200 / 200 Output Total 950 / 1400 1100 / 1100 Balance 470 / 220 -900 / -900 General: Alert, Oriented x3, Cooperative HEENT: Atraumatic, PERRLA, EOMI, Normocephalic Neck: Supple, No JVD, Negative Carotid Bruits Lungs: Clear to auscultation, Normal air movement Cardiovascular: Regular rate, No murmurs Abdomen: Bowel Sounds Present, Soft, Non Tender Extremities: No edema, Capillary Refill Less than 3 Seconds Skin: No rashes, No breakdown Musculoskeletal: No Tenderness to Palpation of Joints or Extremities Neurological: Cranial nerves II-XII grossly intact, - - mouth and upper ext uncontolled movements. Psych/Mental Status: Normal Affect, Appropriate, Alert and oriented to time, place, person, mood and affect Microbiology Past 72 Hours 11/20/20 14:11 Mucosa - Nose SARS-CoV-2 Antigen (Rapid) - Final Laboratory Results 11/21/20 05:02: Free T4 0.93 Current Medications Acetaminophen (Acetaminophen 325 Mg Tablet) 650 mg PO Q6H PRN PRN PRN Reason: Pain Score 1-10/Temp > 100.7 F Al Hydroxide/Mg Hydroxide (Mag Hydrox/Al Hydrox/Simeth 30 Ml Udc) 30 ml PO Q6H PRN PRN PRN Reason: Gastric Burning Albuterol Sulfate (Albuterol 2.5 Mg/3 Ml Vial.Neb.) 2.5 mg INHALATION Q2H PRN PRN PRN Reason: SOB/Wheezing Aspirin (Aspirin 81 Mg Tab.Chew) 81 mg PO DAILY@0800 [facility] Last Admin: 11/22/20 08:40 Dose: 81 mg Documented by: Atorvastatin Calcium (Atorvastatin Calcium 40 Mg Tablet) 40 mg PO QHS [facility] Last Admin: 11/21/20 21:01 Dose: 40 mg Documented by: Benztropine Mesylate (Benztropine 2 Mg Tablet) 2 mg PO TID [facility] Last Admin: 11/22/20 05:52 Dose: 2 mg Documented by: Heparin Sodium (Porcine) (Heparin Injection (Vial) 5,000 Unit/Ml Vial) 5,000 unit SC Q8 [facility] Last Admin: 11/22/20 05:52 Dose: 5,000 unit Documented by: Levothyroxine Sodium (Levothyroxine 75 Mcg Tablet) 75 mcg PO MoTuWeThFrSa@0600 [facility] Last Admin: 11/22/20 05:52 Dose: 75 mcg Documented by: Levothyroxine Sodium (Levothyroxine 75 Mcg Tablet) 112.5 mcg PO Lynne@0600 [facility] Morphine Sulfate (Morphine 2 Mg/Ml Syringe) 2 mg IV Q3H PRN PRN PRN Reason: Pain Score 6-10 Ondansetron HCl (Ondansetron 4 Mg/2 Ml Vial) 4 mg IV Q8H PRN PRN PRN Reason: NAUSEA/VOMITING Sertraline HCl (Sertraline 100 Mg Tablet) 100 mg PO DAILY [facility] Last Admin: 11/22/20 08:40 Dose: 100 mg Documented by: Sodium Chloride (0.9% Saline Lock 10 Ml Syringe) 10 - 40 ml IV UD PRN PRN Reason: SALINE FLUSH Last Admin: 11/21/20 08:07 Dose: 10 ml Documented by: Tolterodine Tartrate (Tolterodine Tartrate 2 Mg Cap.Sa) 2 mg PO DAILY [facility] Last Admin: 11/22/20 08:40 Dose: 2 mg Documented by: Discharge Diet: Low fat/ Low Cholesterol, 2000 mg Sodium Diet Discharge Activity: Return to Normal Activity Home Medications: Medications to take at Discharge Sertraline HCl 100 mg PO DAILY 10/06/19 levothyroxine 75 mcg tablet 112.5 mcg PO LYNNE 08/19/20 Benztropine Mesylate 2 mg PO TID 11/20/20 Levothyroxine [Synthroid] 75 mcg PO MOTUWETHFRSA 11/20/20 Oxybutynin Chloride [Oxybutynin Chloride ER] 10 mg PO DAILY 11/20/20 Rosuvastatin Calcium 20 mg PO DAILY 11/20/20 Acetaminophen [Tylenol Tablet] 650 mg PO Q6H PRN PRN tab 11/22/20 Mag Hydrox/Al Hydrox/Simeth [Mylanta II] 30 ml PO Q6H PRN PRN udc 11/22/20 Primary Care Physician: Gm Flores MD [Primary Care Provider] - Please follow up with your Primary Care Physician in: 1-2 weeks Please Follow Up With: Kasi Niño MD When: 2 weeks Disposition: Long Term facility Minutes spent on discharge:: 35 Patient Condition:: Stable Medical Necessity - Tobacco Use Smoking Status: Never smoker Tobacco Use: Non-smoker Meaningful Use Info Meaningful Use Diagnoses (Choose all that apply): None applicable <Sixto Camejo - Last Filed: 11/22/20 16:17> Discharge Date and Diagnosis - Primary Discharge Diagnosis Acute Problems: Active Problems (Last Reviewed 10/17/20 @ 15:44 by Rita Valentine) Encephalopathy acute (Acute) Intrinsic (urethral) sphincter deficiency (ISD) (Acute) - Secondary Discharge Diagnosis Chronic Problems: Chronic Problems (Last Reviewed 10/17/20 @ 15:44 by Rita Valentine) Debility (Chronic) Extrapyramidal and movement disorder, unspecified (Chronic) Hyperlipidemia (Chronic) Essential hypertension (Chronic) Meniere disease (Chronic) Chronic renal insufficiency (Chronic) Thyroid disease (Chronic) Diabetes (Chronic) Hospital Course and Treatment Operations: None Procedures: None Summary of Care Provided: Patient seen and examined independently. Data reviewed. I agree with the above note by the physician assistant women's tennis coach. The patient is a 70 year old F presents with confusion. Patient has known mild cognitive impairment or dementia and extrapyramidal neurologic issues. Concern was for for medications contributing some his confusion so gabapentin lorazepam were held. Patient underwent MRI that was negative for stroke. Patient's confusion did improve though not at baseline according to her family. Patient lives by herself and would benefit from additional skilled therapy. Upon transfer discharge from their patient may benefit from either living with family or other levels of home care such as AIDS.. Patient had been fairly driving. Patient will need geriatric driving assessment before driving again. [] - Physical Exam Vitals/I&O's: Vital Signs Temp Pulse Resp BP Pulse Ox 36.6 C 79 15 120/71 96 11/22/20 13:23 11/22/20 13:23 11/22/20 13:23 11/22/20 13:23 11/22/20 13:23 Oxygen Flow Rate (L/min) 2 Oxygen Delivery Method Room Air Weight: 84.5 kg Body Mass Index (BMI) 32.1 Finger Stick Blood Glucose 95 Intake and Output for Last 24 Hours 11/20/20 11/21/20 11/22/20 23:59 23:59 23:59 Intake Total 1420 / 1620 820 / 820 Output Total 950 / 1400 1600 / 1600 Balance 470 / 220 -780 / -780 General: Alert, - - less confused today. HEENT: Atraumatic, Normocephalic Neck: Supple, Negative Carotid Bruits Lungs: Clear to auscultation, Normal air movement, No rhonchi, No wheeze Cardiovascular: Regular rate, Regular Rhythm, Normal S1, Normal S2, No murmurs Abdomen: Bowel Sounds Present, Soft, Non Tender Extremities: No edema, No Calf Tenderness Skin: No rashes, No breakdown Neurological: - Psych/Mental Status: Normal Affect, Appropriate Microbiology Past 72 Hours 11/20/20 14:11 Mucosa - Nose SARS-CoV-2 Antigen (Rapid) - Final Discharge Diet: Low fat/ Low Cholesterol, 2000 mg Sodium Diet Discharge Activity: Return to Normal Activity Disposition: Long Term facility Minutes spent on discharge:: 35 Patient Condition:: Stable Medical Necessity - Tobacco Use Smoking Status: Never smoker Tobacco Use: Non-smoker Meaningful Use Info Meaningful Use Diagnoses (Choose all that apply): None applicable Inpatient E&M: 14533 Disch Hosp
--- NOTE | 2020-11-22 13:53 | NURSING ---
called report to Yuli tinajero at [facility]
== END 2020-11-22 15:03 | disposition skilled nursing facility (03) | DRG 640 ==
LOC: ED 14:23 → PCU 16:56
PROVIDERS: Physician Assistant; Admitting Provider Internal Medicine; Emergency Provider Emergency Medicine; PCP Family Medicine
DX: E86.0 Dehydration (principal); G93.41 Metabolic encephalopathy; G24.9 Dystonia, unspecified; F03.90 Unspecified dementia, unspecified severity, without behavioral disturbance, psychotic disturbance, mood disturbance, and anxiety; G62.9 Polyneuropathy, unspecified; E03.9 Hypothyroidism, unspecified; F32.9 Major depressive disorder, single episode, unspecified; F41.9 Anxiety disorder, unspecified; H81.02 Meniere's disease, left ear; E78.5 Hyperlipidemia, unspecified; I12.9 Hypertensive chronic kidney disease with stage 1 through stage 4 chronic kidney disease, or unspecified chronic kidney disease; N18.30 Chronic kidney disease, stage 3 unspecified; N36.42 Intrinsic sphincter deficiency (ISD); E11.22 Type 2 diabetes mellitus with diabetic chronic kidney disease; Z66 Do not resuscitate; Z79.890 Hormone replacement therapy; Z60.2 Problems related to living alone
CPT/HCPCS: 36415; 70450; 70551; 71045; 80053; 80061; 81001; 83605; 84439; 84443; 84484; 85025; 85610; 85730; 87040; 87426; 92610; 93005; 94762; 97110; 97116; 97162; 97166; 97530; 97535; 97802; 99284; A4216

== ENCOUNTER → 2021-01-16 10:21 | Outpatient (CLI) | payer MEDICARE, OTHER, SELFPAY ==
[2021-01-16 12:12] LABS: Absolute Lymphocyte Count 2.42 X10^3/uL (0.83-4.51); Absolute Neutrophil Count 4.3 X10^3/uL (2.0-7.7); Basophil# 0.06 X10^3/uL; Basophil% 0.7 % (0-1); Eosinophil# 0.34 X10^3/uL; Eosinophils% 4.2 % (0-5); Hematocrit 44.1 % (37-47); Hemoglobin 14.1 g/dL (12.0-15.0); Lymphocyte # 2.42 X10^3/ul (4.0); Lymphocyte % 29.6 % (19-41); Mean Corpuscular Hgb 29.6 pg (27.0-32.0); Mean Corpuscular Volume 92.6 fL (81-99); Mean Platelet Vol. 9.7 fl (6.2-12.0); Monocyte# 1.07 X10^3/uL; Monocyte% 13.1 % (0-10); NRBC Flagged by Analyzer 0 % (0-5); Neutrophil # 4.26 X10^3/uL (2.7-7.7); Neutrophil % 52.2 % (47-70); Platelet Count 269 K/mm3 (150-450); RBC Distribution Width CV 13.2 % (11.6-14.6); RBC Distribution Width SD 45.3 fl (35.1-43.9); Red Blood Count 4.76 M/mm3 (4.2-5.4); White Blood Count 8.2 K/mm3 (4.4-11.0)
[2021-01-16 12:31] LABS: Hemoglobin A1c 5.8 % (3.8-5.6)
[2021-01-16 12:39] LABS: Vitamin D,25 Hydroxy 37.6 ng/mL
[2021-01-16 12:50] LABS: ALB/GLOB Ratio 0.8 RATIO (0.9-2.4); AST(SGOT) 21 U/L (15-37); Alanine Aminotransfer ALT/SGPT 25 U/L (13-56); Albumin, Serum 3.7 g/dL (3.2-5.0); Alkaline Phosphatase 68 U/L (45-117); Anion Gap 6 (5-15); BUN 19 mg/dL (7-18); BUN/Creat Ratio 16.7 RATIO (10-20); Calcium,Total 9.6 mg/dL (8.5-10.1); Chloride 100 mmol/L (98-107); Cholesterol 162 mg/dL (200); Creatinine, Serum 1.14 mg/dL (0.55-1.02); EST Glomerular Filtration Rate 50 mL/min (>60); Est Glom Filt Rate - Afr Amer 60 mL/min (>60); Globulin 4.6 g/dL (2.2-4.2); Glucose 89 mg/dL (74-106); High Density Lipoprotein 46 mg/dL; Potassium 4.3 mmol/L (3.5-5.1); Protein, Total 8.3 g/dL (6.4-8.2); Sodium Level 135 mmol/L (136-145); T4 Free Direct 0.98 ng/dL (0.76-1.46); Thyroid Stim Hormone (TSH) 1.75 uIU/mL (0.358-3.74); Triglycerides 210 mg/dL; Very Low Density Lipoprotein 42 mg/dL (5-40)
[2021-01-16 12:51] LABS: Microalbumin,Random Urine 7.9 mg/L (NO RANGE EST.); Microalbumin:Creatinine Ratio 15.5 mg/g CRE (<30 mg/g CRE)
== END ==
PROVIDERS: PCP Family Medicine; Referring Provider Family Medicine; Visit Provider Family Medicine
DX: E11.9 Type 2 diabetes mellitus without complications (principal); E55.9 Vitamin D deficiency, unspecified; E03.9 Hypothyroidism, unspecified; E78.5 Hyperlipidemia, unspecified; I10 Essential (primary) hypertension
CPT/HCPCS: 36415; 80053; 80061; 82043; 82306; 82570; 83036; 84439; 84443; 85025

== ENCOUNTER → 2021-05-23 09:41 | Outpatient (CLI) | payer MEDICARE, OTHER, SELFPAY ==
[2021-05-23 12:16] LABS: Hematocrit 43.8 % (37-47); Hemoglobin 14.9 g/dL (12.0-15.0); Mean Corpuscular Hgb 31.7 pg (27.0-32.0); Mean Corpuscular Volume 93.2 fL (81-99); Mean Platelet Vol. 9.6 fl (6.2-12.0); Platelet Count 288 K/mm3 (150-450); RBC Distribution Width CV 12.5 % (11.6-14.6); White Blood Count 7.8 K/mm3 (4.4-11.0)
[2021-05-23 12:38] LABS: ALB/GLOB Ratio 0.9 RATIO (0.9-2.4); AST(SGOT) 27 U/L (15-37); Alanine Aminotransfer ALT/SGPT 30 U/L (13-56); Alkaline Phosphatase 61 U/L (45-117); Anion Gap 6 (5-15); BUN 18 mg/dL (7-18); BUN/Creat Ratio 14.3 RATIO (10-20); Calcium,Total 9.4 mg/dL (8.5-10.1); Chloride 101 mmol/L (98-107); Cholesterol 172 mg/dL (200); Creatinine, Serum 1.26 mg/dL (0.55-1.02); EST Glomerular Filtration Rate 44 mL/min (>60); Est Glom Filt Rate - Afr Amer 54 mL/min (>60); Free T3 2.5 pg/mL (2.18-3.98); Globulin 4.5 g/dL (2.2-4.2); Glucose 92 mg/dL (74-106); High Density Lipoprotein 53 mg/dL; Potassium 4.6 mmol/L (3.5-5.1); Protein, Total 8.5 g/dL (6.4-8.2); Sodium Level 136 mmol/L (136-145); T4 Free Direct 0.98 ng/dL (0.76-1.46); Thyroid Stim Hormone (TSH) 1.93 uIU/mL (0.358-3.74); Triglycerides 224 mg/dL; Very Low Density Lipoprotein 45 mg/dL (5-40)
[2021-05-23 14:12] LABS: Vitamin D,25 Hydroxy 30.2 ng/mL
== END ==
PROVIDERS: Family Medicine; PCP Family Medicine; Referring Provider Family Medicine; Visit Provider Family Medicine
DX: D75.1 Secondary polycythemia (principal); E11.9 Type 2 diabetes mellitus without complications; E03.9 Hypothyroidism, unspecified; E55.9 Vitamin D deficiency, unspecified
CPT/HCPCS: 36415; 80053; 80061; 82306; 84439; 84443; 84481; 85027

== ENCOUNTER → 2021-06-26 10:33 | Outpatient (CLI) | payer MEDICARE, OTHER, SELFPAY ==
[2021-06-30 16:09] LABS: PROEL- Albumin 3.5 g/dL (2.9-4.4); PROEL- Alpha-1 Globulin 0.2 g/dL (0.0-0.4); PROEL- Beta Globulin 1.3 g/dL (0.7-1.3); PROEL- Gamma Globulin 1.1 g/dL (0.4-1.8); PROEL- Globulin, Total 3.6 g/dL (2.2-3.9); PROEL- TOTAL PROTEIN 7.1 g/dL (6.0-8.5); PROELU- Albumin, Urine 43.9 % (.); PROELU- Alpha-1-Globulin,Ur 12.9 % (.); PROELU- Alpha-2-Globulin,Ur 16.1 % (.); PROELU- Beta Globulin, Ur 6.3 % (.); PROELU- Gamma Globulin, Ur 20.7 % (.)
[2021-06-30 20:51] LABS: Total Protein, Ur < 4.0 mg/dL (Not Estab.)
== END ==
PROVIDERS: PCP Family Medicine; Visit Provider Family Medicine
DX: R77.9 Abnormality of plasma protein, unspecified (principal)
CPT/HCPCS: 36415; 84165; 84166

== ENCOUNTER → 2021-10-08 12:02 | Outpatient (CLI) | payer MEDICARE, OTHER, SELFPAY ==
[2021-10-08 15:24] LABS: Hematocrit 41.9 % (37-47); Hemoglobin 13.9 g/dL (12.0-15.0); Mean Corp Hgb Conc 33.2 g/dL (32-36); Mean Corpuscular Hgb 31.5 pg (27.0-32.0); Mean Platelet Vol. 9.4 fl (6.2-12.0); Platelet Count 305 K/mm3 (150-450); RBC Distribution Width CV 12.1 % (11.6-14.6); Red Blood Count 4.41 M/mm3 (4.2-5.4); White Blood Count 8.4 K/mm3 (4.4-11.0)
[2021-10-08 15:38] LABS: Vitamin D,25 Hydroxy 32.8 ng/mL
[2021-10-08 15:49] LABS: ALB/GLOB Ratio 0.8 RATIO (0.9-2.4); AST(SGOT) 22 U/L (15-37); Alanine Aminotransfer ALT/SGPT 40 U/L (13-56); Albumin, Serum 3.8 g/dL (3.2-5.0); Alkaline Phosphatase 61 U/L (45-117); Anion Gap 7 (5-15); BUN 23 mg/dL (7-18); BUN/Creat Ratio 18.3 RATIO (10-20); Calcium,Total 9.1 mg/dL (8.5-10.1); Chloride 102 mmol/L (98-107); Creatinine, Serum 1.26 mg/dL (0.55-1.02); EST Glomerular Filtration Rate 44 mL/min (>60); Est Glom Filt Rate - Afr Amer 54 mL/min (>60); Globulin 4.5 g/dL (2.2-4.2); Glucose 87 mg/dL (74-106); Potassium 4.4 mmol/L (3.5-5.1); Protein, Total 8.3 g/dL (6.4-8.2); Sodium Level 136 mmol/L (136-145); Thyroid Stim Hormone (TSH) 2.59 uIU/mL (0.358-3.74)
[2021-10-08 16:12] LABS: Erythrocyte Sedimentation Rate 13 mm/hr (0-30)
== END ==
PROVIDERS: PCP Family Medicine; Referring Provider Family Medicine; Visit Provider Family Medicine
DX: R26.81 Unsteadiness on feet (principal); E55.9 Vitamin D deficiency, unspecified; E03.9 Hypothyroidism, unspecified
CPT/HCPCS: 36415; 80053; 82306; 84443; 85027; 85652

== ENCOUNTER 2022-01-24 22:55 | Emergency (ER) | payer MEDICARE, OTHER, SELFPAY ==
[2022-01-24 22:56] VITALS: BP 138/65; PULSE 98; RESP 16; TEMP 36.3; O2SAT 95; BMI 30.9
--- NOTE | 2022-01-24 23:24 | RAD_ITS ---
HISTORY: cough EXAMINATION/TECHNIQUE: XR Neck Soft Tissue: 2 view soft tissue neck COMPARISON: Chest radiograph on same day FINDINGS: No prevertebral soft tissue thickening. Normal epiglottis. No tracheal membranes. No subcutaneous emphysema. Nonspecific diffuse soft tissue prominence about the neck on frontal view. No fracture. Reversal of normal cervical lordosis with mild anterior vertebral height loss in the mid to lower cervical spine. Anterior and posterior endplate osteophyte formation in the mid to lower cervical spine. Mild disc height loss C5-C6. Left greater than right facet arthropathy in the mid cervical spine. Absent dentition. RAD/Neck for Soft Tissue IMPRESSION: Mild diffuse nonspecific soft tissue prominence about the neck on frontal view. No acute pharyngeal soft tissue finding. Cervical spondylosis as well. No acute osseous finding. at 0101 Reported and signed by: Tylor Mehta MD Electronically Signed: Tylor Mehta MD at 0:59 EDT ,
[2022-01-24] MEDS: Gentamicin Sulfate 1 OPTH.BTL 2 DRP LEFT EYE (23:30)
[2022-01-24] MEDS: predniSONE 20 MG Tablet 60 MG PO (23:30)
--- NOTE | 2022-01-24 23:40 | RAD_ITS ---
EXAM: XR Chest, 2 Views CLINICAL INDICATION: 71 years old, Female; cough TECHNIQUE: Frontal and lateral views of the chest. This report was created using [employer] report generation technology. COMPARISON: None. FINDINGS: Lungs and pleural spaces: Infiltrate or atelectasis left lung base. No pneumothorax. No effusion. Heart: Unremarkable. Cardiac silhouette not enlarged. Mediastinum: Central airways and mediastinal contour are unremarkable. Bones/joints: Unremarkable. Soft tissues: Unremarkable. RAD/Chest PA and Lateral IMPRESSION: Infiltrate or atelectasis left lung base. Electronically Signed: Gm Clark MD at 0:39 EDT ,
--- NOTE | 2022-01-25 00:38 | EDS_ITS ---
HPI History of Present Illness Chief Complaint: Cough Informant: patient Onset/Context/Timing Onset: Days (3 days) Context: Gradual Onset Current Severity: Moderate Maximum Severity: Moderate Narrative Narrative: Patient presents secondary to dry cough. She states she feels like she will get a spasm in her throat as well. Symptoms been ongoing the last 3 days. She did recently start Lyrica and feels that this made the cough worse. She also complains of some irritation and watering to her left eye. No fever or chills. She only complains of chest pain after coughing all day. [facility] Medical History Asthma Back pain Chronic renal insufficiency Diabetes Difficulty balancing Essential hypertension Fatigue History of arthritis Hyperlipidemia Incontinence Knee pain Meniere disease Neck pain Polyneuropathy SOB (shortness of breath) Thyroid disease Home Medications levothyroxine 75 mcg PO MOTUWETHFRSA 11/20/20 [History Last Taken 2 Days Ago ~11/18/20] rosuvastatin 20 mg PO DAILY 11/20/20 [History Last Taken 2 Days Ago ~11/18/20] acetaminophen 650 mg PO Q6H PRN PRN tab 11/22/20 [Rx Last Taken Unknown] levothyroxine 112 mcg tablet 112 mcg PO .Q WEDNESDAY tab 12/05/20 [History Last Taken Unknown] magnesium hydroxide 400 mg/5 mL oral suspension 30 ml PO DAILY PRN ml 12/05/20 [History Last Taken Unknown] oxybutynin chloride 10 mg tablet,extended release 24 hr 5 mg PO DAILY tab 01/07/21 [History Last Taken Unknown] aspirin 81 mg tablet,delayed release 81 mg PO DAILY 10/16/21 [History Last Taken Unknown] carbamazepine 100 mg chewable tablet 100 mg PO DAILY #30 tab 11/18/21 [Rx Last Taken Unknown] azithromycin [Zithromax] 250 mg PO DAILY 4 Days #4 tab 01/25/22 [Rx Last Taken Unknown] prednisone 60 mg PO DAILY #12 tab 01/25/22 [Rx Last Taken Unknown] Allergy/AdvReac Type Severity Reaction Status Date / Time succinylcholine Allergy MUSCLE Verified 01/24/22 22:58 CONTRACTED Social History Smoking Status: Never smoker alcohol intake: never substance use type: does not use ROS ROS ED Constitutional Constitutional ED: Denies chills or fever(s) Eyes Eyes: Reports other Details: Left eye irritation and watering ; Denies change in vision ENT ENT ED: Denies sore throat Cardiovascular Cardiovascular: Denies chest pain Respiratory/Chest Respiratory/Chest: Reports cough; Denies dyspnea or sputum Gastrointestinal Gastrointestinal: Denies abdominal pain, nausea or vomiting Integumentary Denies rash Neurologic Neurologic: Denies headache(s) or weakness Allergic/Immunologic Allergic/Immunologic ED: Denies urticaria EXAM Physical Exam Const Vital Signs: 01/24/22 22:56 01/24/22 23:24 Temperature 97.4 F L Temperature Source Temporal Pulse Rate 98 Respiratory Rate 16 Respiratory Effort Normal Non-Labored Respiratory Depth Normal Respiratory Pattern Normal Blood Pressure 138/65 H Blood Pressure Mean 89 Pulse Ox 95 Oxygen Delivery Method Room Air Positive well nourished and well developed General Appearance ED: well developed HEENT Reports moist mucous membranes HEENT Narrative: Normal posterior pharynx. Eyes PERRL Eyes Narrative: Left conjunctival injection with watering. Exam consistent with conjunctivitis. Neck no lymphadenopathy and supple Chest Wall inspection of chest normal and palpation of chest normal Resp normal respiratory effort and clear to auscultation bilaterally Cardio regular rate and regular rhythm GI non-tender Palpation: soft Extremity normal to inspection Neuro oriented x3 Sensorium / Orientation: alert Psych mental status grossly normal Skin no rashes or lesions noted MDM MDM MDM Narrative Medical decision making narrative: Chest x-ray and soft tissue neck x-rays obtained. Patient given gentamicin eyedrops to her left eye and a dose of prednisone. Radiography Diagnostic Testing: Clinical Impression(s) from Imaging Studies Soft Tissue Neck X-Ray 01/24/22 23:24 IMPRESSION: Mild diffuse nonspecific soft tissue prominence about the neck on frontal view. No acute pharyngeal soft tissue finding. Cervical spondylosis as well. No acute osseous finding. at 0101 Reported and signed by: Tylor Mehta MD Electronically Signed: Tylor Mehta MD at 0:59 EDT , Chest X-Ray 01/24/22 23:40 IMPRESSION: Infiltrate or atelectasis left lung base. Electronically Signed: Gm Clark MD at 0:39 EDT , Treatment and Re-Evaluation Narrative: X-rays per my interpretation reveal no acute findings. Radiology interpretation reviewed. On repeat evaluation patient does feel slightly improved after receiving the prednisone. We discussed holding her Lyrica as she felt her cough got worse with this. I will treat her with Zithromax for her bronchitis along with prednisone. Gentamicin eyedrops will be continued for her conjunctivitis. Return instructions given. Discharge Plan Triage Chief Complaint: Cough ED Provider: Lynn Molina Dx/Rx/DC Orders Clinical Impression: Conjunctivitis, Bronchitis Instructions: Acute Bronchitis, ED Conjunctivitis, Nonspecific Prescriptions: New azithromycin [Zithromax] 250 mg tablet 250 mg PO DAILY 4 Days Qty: 4 RF: 0 prednisone 20 mg tablet 60 mg PO DAILY Qty: 12 RF: 0 No Action levothyroxine 112 mcg tablet 112 mcg PO .Q WEDNESDAY RF: 0 magnesium hydroxide [Milk of Magnesia] 400 mg/5 mL suspension 30 ml PO DAILY PRNRF: 0 aspirin [Adult Aspirin Regimen] 81 mg tablet,delayed release (DR/EC) 81 mg PO DAILY RF: 0 carbamazepine 100 mg tablet,chewable 100 mg PO DAILY Qty: 30 RF: 1 levothyroxine 75 MCG tablet 75 mcg PO MOTUWETHFRSA RF: 0 rosuvastatin 20 MG tablet 20 mg PO DAILY RF: 0 acetaminophen 325 MG tablet 650 mg PO Q6H PRN PRN (Reason: Pain Score 1-10/Temp > 100.7 F) RF: 0 oxybutynin chloride 10 mg tablet extended release 24hr 5 mg PO DAILY RF: 0 Primary Care Provider: Danielito Sims Referrals: Danielito Sims MD [Primary Care Provider] - 1 Week Activity Restrictions/Additional Instructions: As you notice the cough got worse after starting Lyrica, please hold that medication at this time. Complete your antibiotic and steroids. Gentamicin eyedrops: Place 2 drops in left eye 4 times daily until redness is resolved for 24 hours. Disposition Disposition: Home, Self Care Discharge Date/Time: 01/25/22 01:31
[2022-01-25] MEDS: Azithromycin 250 MG Tablet 500 MG PO (01:28)
== END 2022-01-25 01:31 | disposition home or self-care (01) ==
PROVIDERS: Emergency Provider Emergency Medicine; PCP Family Medicine; Visit Provider Emergency Medicine
DX: J40 Bronchitis, not specified as acute or chronic (principal); H10.9 Unspecified conjunctivitis; I12.9 Hypertensive chronic kidney disease with stage 1 through stage 4 chronic kidney disease, or unspecified chronic kidney disease; N18.9 Chronic kidney disease, unspecified; E07.9 Disorder of thyroid, unspecified; Z79.82 Long term (current) use of aspirin; Z79.899 Other long term (current) drug therapy
CPT/HCPCS: 70360; 71046; 99283

== ENCOUNTER 2022-01-30 14:19 | Outpatient (CLI) | payer MEDICARE, OTHER, SELFPAY ==
--- NOTE | 2022-01-30 14:20 | RAD_ITS ---
STUDY: X-RAY CHEST REASON FOR EXAM: Female, 71 years old. Persistent cough, bronchitis TECHNIQUE: PA and lateral. COMPARISON: January 24, 2022, November 20, 2020. FINDINGS: No darrell infiltrate. Left lung base is mildly less inflated with almost equal level of the hemidiaphragms on the current exam. Mild apparent bronchopulmonary cuffing in the left medial lung base, similar. There is no demonstrated pleural abnormality. Normal size heart. Normal mediastinum and tabby. Normal visualized pulmonary arteries. Normal visualized aortic arch and descending thoracic aorta. Normal visualized thoracic spine with the exception of slight scoliosis similar to prior exam minimal thoracic spondylosis on lateral exam. Normal visualized ribs, clavicles, and shoulders. There is no demonstrated abnormality of the visualized soft tissue structures of the upper abdomen. RAD/Chest PA and Lateral IMPRESSION: Stable chest. Suspicion of mild bronchopulmonary cuffing possibly due to bronchitis or reactive airway disease in the left medial lung base. No definite infiltrates or effusions. Electronically Signed: Amira Zamora MD at 21:19 EDT ,
[2022-01-30 17:52] LABS: Absolute Lymphocyte Count 6.07 X10^3/uL (0.83-4.51); Absolute Neutrophil Count 8.5 X10^3/uL (2.0-7.7); Basophil# 0.06 X10^3/uL; Basophil% 0.4 % (0-1); Eosinophil# 0.11 X10^3/uL; Eosinophils% 0.6 % (0-5); Hematocrit 41.4 % (37-47); Hemoglobin 14.6 g/dL (12.0-15.0); Lymphocyte # 6.07 X10^3/ul (0.83-4.51); Lymphocyte % 35.6 % (19-41); Mean Corp Hgb Conc 35.3 g/dL (32-36); Mean Corpuscular Hgb 31.7 pg (27.0-32.0); Mean Corpuscular Volume 89.8 fL (81-99); Mean Platelet Vol. 9.4 fl (6.2-12.0); Monocyte# 1.95 X10^3/uL; Monocyte% 11.4 % (0-10); NRBC Flagged by Analyzer 0 % (0-5); Neutrophil # 8.47 X10^3/uL (2.7-7.7); Neutrophil % 49.6 % (47-70); POSITIVE DIFFERENTIAL YES; POSITIVE MORPHOLOGY YES; Platelet Count 419 K/mm3 (150-450); RBC Distribution Width CV 11.9 % (11.6-14.6); RBC Distribution Width SD 38.6 fl (35.1-43.9); Red Blood Count 4.61 M/mm3 (4.2-5.4); White Blood Count 17.1 K/mm3 (4.4-11.0)
[2022-01-30 17:54] LABS: Differential Indicated SCAN CRITERIA MET
[2022-01-30 18:15] LABS: ALB/GLOB Ratio 0.8 RATIO (0.9-2.4); AST(SGOT) 35 U/L (15-37); Alanine Aminotransfer ALT/SGPT 71 U/L (13-56); Albumin, Serum 3.5 g/dL (3.2-5.0); Alkaline Phosphatase 72 U/L (45-117); Anion Gap 8 (5-15); BUN 24 mg/dL (7-18); BUN/Creat Ratio 17.6 RATIO (10-20); Calcium,Total 8.7 mg/dL (8.5-10.1); Chloride 101 mmol/L (98-107); Creatinine, Serum 1.36 mg/dL (0.55-1.02); EST Glomerular Filtration Rate 41 mL/min (>60); Est Glom Filt Rate - Afr Amer 49 mL/min (>60); Globulin 4.3 g/dL (2.2-4.2); Glucose 78 mg/dL (74-106); Potassium 3.6 mmol/L (3.5-5.1); Protein, Total 7.8 g/dL (6.4-8.2); Sodium Level 134 mmol/L (136-145)
[2022-01-30 19:46] LABS: Platelet Estimate ADEQUATE (ADEQ); Red Cell Morphology NORM C+C NORMAL (NORM C&C)
[2022-02-02 12:51] LABS: Pathologist Review Reviewed
== END 2022-01-30 23:59 | disposition home or self-care (01) ==
LOC: MTLAB 14:20
PROVIDERS: PCP Family Medicine; Referring Provider Registered Nurse; Visit Provider Registered Nurse
DX: E11.40 Type 2 diabetes mellitus with diabetic neuropathy, unspecified (principal); J20.8 Acute bronchitis due to other specified organisms
CPT/HCPCS: 36415; 71046; 80053; 85025

== ENCOUNTER → 2022-07-20 | Outpatient (CLI) | payer MEDICARE, OTHER, SELFPAY ==
[2022-07-20 12:14] LABS: Hematocrit 41.6 % (37-47); Mean Corp Hgb Conc 33.7 g/dL (32-36); Mean Corpuscular Hgb 30.9 pg (27.0-32.0); Mean Corpuscular Volume 91.8 fL (81-99); Mean Platelet Vol. 9.3 fl (6.2-12.0); Platelet Count 232 K/mm3 (150-450); RBC Distribution Width CV 12.6 % (11.6-14.6); RBC Distribution Width SD 42.5 fl (35.1-43.9); Red Blood Count 4.53 M/mm3 (4.2-5.4); White Blood Count 6.8 K/mm3 (4.4-11.0)
[2022-07-20 13:11] LABS: Vitamin D,25 Hydroxy 30.5 ng/mL
[2022-07-20 13:29] LABS: ALB/GLOB Ratio 0.9 RATIO (0.9-2.4); AST(SGOT) 25 U/L (15-37); Alanine Aminotransfer ALT/SGPT 27 U/L (13-56); Albumin, Serum 3.5 g/dL (3.2-5.0); Alkaline Phosphatase 57 U/L (45-117); Anion Gap 9 (5-15); BUN 15 mg/dL (7-18); BUN/Creat Ratio 11.7 RATIO (10-20); Calcium,Total 8.7 mg/dL (8.5-10.1); Chloride 100 mmol/L (98-107); Cholesterol 141 mg/dL (200); Creatinine, Serum 1.28 mg/dL (0.55-1.02); EST Glomerular Filtration Rate 43 mL/min (>60); Est Glom Filt Rate - Afr Amer 52 mL/min (>60); Globulin 4.1 g/dL (2.2-4.2); Glucose 78 mg/dL (74-106); High Density Lipoprotein 52 mg/dL; Potassium 3.9 mmol/L (3.5-5.1); Protein, Total 7.6 g/dL (6.4-8.2); Sodium Level 135 mmol/L (136-145); T4 Free Direct 1.22 ng/dL (0.76-1.46); Thyroid Stim Hormone (TSH) 0.75 uIU/mL (0.358-3.74); Triglycerides 198 mg/dL; Very Low Density Lipoprotein 40 mg/dL (5-40)
== END | disposition home or self-care (01) ==
LOC: MFPLAB 10:55
PROVIDERS: PCP Family Medicine; Visit Provider Family Medicine
DX: E11.21 Type 2 diabetes mellitus with diabetic nephropathy (principal); E03.9 Hypothyroidism, unspecified; E55.9 Vitamin D deficiency, unspecified
CPT/HCPCS: 36415; 80053; 80061; 82306; 84439; 84443; 85027

== ENCOUNTER → 2023-02-25 | Outpatient (CLI) | payer MEDICARE, OTHER, SELFPAY ==
[2023-02-25 12:22] LABS: Hematocrit 44.1 % (37-47); Hemoglobin 14.8 g/dL (12.0-15.0); Mean Corp Hgb Conc 33.6 g/dL (32-36); Mean Corpuscular Hgb 30.5 pg (27.0-32.0); Mean Corpuscular Volume 90.7 fL (81-99); Platelet Count 309 K/mm3 (150-450); RBC Distribution Width CV 12.5 % (11.6-14.6); RBC Distribution Width SD 41.2 fl (35.1-43.9); Red Blood Count 4.86 M/mm3 (4.2-5.4); White Blood Count 8.8 K/mm3 (4.4-11.0)
[2023-02-25 12:57] LABS: Vitamin B12 560 pg/mL (211-911)
[2023-02-25 13:12] LABS: Hemoglobin A1c 5.8 % (3.8-5.6)
[2023-02-25 14:14] LABS: ALB/GLOB Ratio 0.8 RATIO (0.9-2.4); AST(SGOT) 28 U/L (15-37); Alanine Aminotransfer ALT/SGPT 30 U/L (13-56); Albumin, Serum 3.8 g/dL (3.2-5.0); Alkaline Phosphatase 68 U/L (45-117); Anion Gap 5 (5-15); BUN 14 mg/dL (7-18); Calcium,Total 9.1 mg/dL (8.5-10.1); Chloride 102 mmol/L (98-107); Creatinine, Serum 1.27 mg/dL (0.55-1.02); EST Glomerular Filtration Rate 44 mL/min (>60); Est Glom Filt Rate - Afr Amer 53 mL/min (>60); Globulin 4.8 g/dL (2.2-4.2); Glucose 114 mg/dL (74-106); Potassium 4.1 mmol/L (3.5-5.1); Protein, Total 8.6 g/dL (6.4-8.2); Sodium Level 130 mmol/L (136-145); T4 Free Direct 1.26 ng/dL (0.76-1.46); Thyroid Stim Hormone (TSH) 2.25 uIU/mL (0.358-3.74)
[2023-02-27 13:07] LABS: ANTINUCLEAR ANTIBODIES DIRECT Negative (Negative)
[2023-03-03 18:08] LABS: Albumin 4.1 g/dL (2.9-4.4); Alpha-1-Globulins 0.2 g/dL (0.0-0.4); Free Lambda Light Chains 21.4 mg/L (5.7-26.3); Immunoglobulin A 488 mg/dL (64-422); Immunoglobulin G 1244 mg/dL (586-1602); Immunoglobulin M 45 mg/dL (26-217); PROEL- TOTAL PROTEIN 7.8 g/dL (6.0-8.5); Vitamin B1, Thiamine 201.9 nmol/L (66.5-200.0)
== END | disposition home or self-care (01) ==
LOC: MTLAB 09:47
PROVIDERS: PCP Family Medicine; Referring Provider Psychiatry & Neurology Neurology; Visit Provider Psychiatry & Neurology Neurology
DX: G62.9 Polyneuropathy, unspecified (principal); I10 Essential (primary) hypertension; E03.9 Hypothyroidism, unspecified; Z86.39 Personal history of other endocrine, nutritional and metabolic disease; Z87.39 Personal history of other diseases of the musculoskeletal system and connective tissue
CPT/HCPCS: 36415; 80053; 82607; 82652; 82746; 82784; 83036; 83883; 84165; 84425; 84439; 84443; 85027; 86038; 86225; 86235; 86334; 86335

== ENCOUNTER → 2023-06-28 | Outpatient (CLI) | payer MEDICARE, OTHER, SELFPAY ==
[2023-06-28 18:00] LABS: Hematocrit 43.4 % (37-47); Hemoglobin 14.3 g/dL (12.0-15.0); Mean Corp Hgb Conc 32.9 g/dL (32-36); Mean Corpuscular Hgb 30.6 pg (27.0-32.0); Mean Corpuscular Volume 92.7 fL (81-99); Mean Platelet Vol. 9.1 fl (6.2-12.0); Platelet Count 293 K/mm3 (150-450); RBC Distribution Width CV 12.3 % (11.6-14.6); RBC Distribution Width SD 41.9 fl (35.1-43.9); Red Blood Count 4.68 M/mm3 (4.2-5.4)
[2023-06-28 18:23] LABS: Sodium Level 134 mmol/L (136-145)
[2023-06-28 18:47] LABS: Cholesterol 169 mg/dL (200); High Density Lipoprotein 49 mg/dL; Thyroid Stim Hormone (TSH) 1.29 uIU/mL (0.358-3.74); Triglycerides 215 mg/dL; Very Low Density Lipoprotein 43 mg/dL (5-40)
== END | disposition home or self-care (01) ==
PROVIDERS: PCP Family Medicine; Referring Provider Psychiatry & Neurology Neurology; Visit Provider Psychiatry & Neurology Neurology
DX: E11.40 Type 2 diabetes mellitus with diabetic neuropathy, unspecified (principal); E87.1 Hypo-osmolality and hyponatremia
CPT/HCPCS: 36415; 80061; 84295; 84443; 85027

== ENCOUNTER → 2023-07-23 | Outpatient (CLI) | payer MEDICARE, OTHER, SELFPAY ==
--- NOTE | 2023-07-23 16:20 | RAD_ITS ---
INDICATION: back pain EXAMINATION/TECHNIQUE: X-RAY - XR Spine Lumbar Comp W/ Bending Min 6 Views COMPARISON: July 20, 2017 FINDINGS: VERTEBRAE: 5 nonrib-bearing lumbar type vertebra with normal general morphology. There is mildly increased dextrocurvature of the upper lumbar spine compare with July 20, 2017. No fracture or acute compression deformity. Preserved lumbar lordosis with degenerative grade 1 anterolisthesis L4 on L5, unchanged from July 20, 2017, with minimal increase and decrease with flexion and extension respectively. Severe bilateral facet arthropathy at L4-5 and L5-S1. No aggressive osseous lesion. DISCS: Disc height loss L2-3 L3-4 is mildly worsened from prior exam. Unchanged disc height loss at L4-5 and L5-S1 compared to prior.. INCLUDED ABDOMEN: Included bowel gas pattern is non-obstructive. Aortic atherosclerosis noted. Pelvic phleboliths. Right posterior pelvic sacral neurostimulator. RAD/L/S Spine w Bend Min 6 Vw IMPRESSION: Diffuse lumbar spondylosis with worsening compared with July 20, 2017. Severe facet arthropathy at L4-5 with associated degenerative grade 1 anterolisthesis is unchanged from July 20, 2017 with slight exaggeration upon flexion and extension. Interval placement of right posterior mid sacral neurostimulator.. Aortic atherosclerosis. Electronically Signed: Tylor Mehta MD at 10:37 EDT ,
[2023-07-23 17:51] LABS: Absolute Lymphocyte Count 3.45 X10^3/uL (0.83-4.51); Absolute Neutrophil Count 3.4 X10^3/uL (2.0-7.7); Basophil# 0.08 X10^3/uL; Eosinophil# 0.27 X10^3/uL; Eosinophils% 3.2 % (0-5); Hematocrit 42.1 % (37-47); Hemoglobin 14.1 g/dL (12.0-15.0); Lymphocyte # 3.45 X10^3/ul (0.83-4.51); Lymphocyte % 41.4 % (19-41); Mean Corp Hgb Conc 33.5 g/dL (32-36); Mean Corpuscular Hgb 31.2 pg (27.0-32.0); Mean Corpuscular Volume 93.1 fL (81-99); Monocyte# 1.14 X10^3/uL; Monocyte% 13.7 % (0-10); NRBC Flagged by Analyzer 0 % (0-5); Neutrophil # 3.38 X10^3/uL (2.7-7.7); Neutrophil % 40.5 % (47-70); Platelet Count 277 K/mm3 (150-450); RBC Distribution Width CV 12.4 % (11.6-14.6); RBC Distribution Width SD 42.3 fl (35.1-43.9); Red Blood Count 4.52 M/mm3 (4.2-5.4); White Blood Count 8.3 K/mm3 (4.4-11.0)
[2023-07-23 18:21] LABS: ALB/GLOB Ratio 0.9 RATIO (0.9-2.4); AST(SGOT) 20 U/L (15-37); Alanine Aminotransfer ALT/SGPT 27 U/L (13-56); Albumin, Serum 3.7 g/dL (3.2-5.0); Alkaline Phosphatase 54 U/L (45-117); Anion Gap 6 (5-15); BUN 21 mg/dL (7-18); BUN/Creat Ratio 14.8 RATIO (10-20); Calcium,Total 8.9 mg/dL (8.5-10.1); Chloride 105 mmol/L (98-107); Creatinine, Serum 1.42 mg/dL (0.55-1.02); EST Glomerular Filtration Rate 38 mL/min (>60); Est Glom Filt Rate - Afr Amer 46 mL/min (>60); Globulin 4.2 g/dL (2.2-4.2); Glucose 115 mg/dL (74-106); Potassium 4.2 mmol/L (3.5-5.1); Protein, Total 7.9 g/dL (6.4-8.2); Sodium Level 137 mmol/L (136-145)
[2023-07-23 18:25] LABS: Erythrocyte Sedimentation Rate 23 mm/hr (0-30)
== END | disposition home or self-care (01) ==
LOC: MTLAB 16:17
PROVIDERS: PCP Family Medicine; Referring Provider Family Medicine; Visit Provider Family Medicine
DX: R53.1 Weakness (principal); M54.9 Dorsalgia, unspecified
CPT/HCPCS: 36415; 72114; 80053; 85025; 85652

== ENCOUNTER → 2023-09-09 | Outpatient (CLI) | payer MEDICARE, OTHER, SELFPAY ==
[2023-09-09 12:13] LABS: Absolute Lymphocyte Count 2.92 X10^3/uL (0.83-4.51); Absolute Neutrophil Count 3.4 X10^3/uL (2.0-7.7); Basophil# 0.07 X10^3/uL; Basophil% 0.9 % (0-1); Eosinophil# 0.27 X10^3/uL; Eosinophils% 3.5 % (0-5); Hematocrit 43.1 % (37-47); Hemoglobin 14.4 g/dL (12.0-15.0); Lymphocyte # 2.92 X10^3/ul (0.83-4.51); Lymphocyte % 37.5 % (19-41); Mean Corp Hgb Conc 33.4 g/dL (32-36); Mean Corpuscular Hgb 31.2 pg (27.0-32.0); Mean Corpuscular Volume 93.3 fL (81-99); Mean Platelet Vol. 9.1 fl (6.2-12.0); Monocyte# 1.09 X10^3/uL; NRBC Flagged by Analyzer 0 % (0-5); Neutrophil # 3.42 X10^3/uL (2.7-7.7); Neutrophil % 43.8 % (47-70); Platelet Count 255 K/mm3 (150-450); RBC Distribution Width CV 12.6 % (11.6-14.6); Red Blood Count 4.62 M/mm3 (4.2-5.4); White Blood Count 7.8 K/mm3 (4.4-11.0)
[2023-09-09 12:51] LABS: AST(SGOT) 23 U/L (15-37); Alanine Aminotransfer ALT/SGPT 22 U/L (13-56); Albumin, Serum 3.7 g/dL (3.2-5.0); Alkaline Phosphatase 53 U/L (45-117); Anion Gap 7 (5-15); BUN 19 mg/dL (7-18); BUN/Creat Ratio 13.8 RATIO (10-20); Calcium,Total 9.1 mg/dL (8.5-10.1); Chloride 101 mmol/L (98-107); Creatinine, Serum 1.38 mg/dL (0.55-1.02); EST Glomerular Filtration Rate 40 mL/min (>60); Est Glom Filt Rate - Afr Amer 48 mL/min (>60); Globulin 3.6 g/dL (2.2-4.2); Glucose 113 mg/dL (74-106); LDH 175 U/L (84-246); Potassium 4.3 mmol/L (3.5-5.1); Protein, Total 7.3 g/dL (6.4-8.2); Sodium Level 135 mmol/L (136-145)
[2023-09-09 19:22] LABS: Xtra Tube EP Lab EXTRA TUBE
[2023-09-13 14:08] LABS: Albumin 3.6 g/dL (2.9-4.4); Alpha-1-Globulins 0.2 g/dL (0.0-0.4); Free Kappa Light Chains 26.8 mg/L (3.3-19.4); Free Lambda Light Chains 18.5 mg/L (5.7-26.3); Gamma Globulin 1.2 g/dL (0.4-1.8); Immunoglobulin A 406 mg/dL (64-422); Immunoglobulin G 1113 mg/dL (586-1602); Immunoglobulin M 38 mg/dL (26-217); PROEL- TOTAL PROTEIN 7.2 g/dL (6.0-8.5)
== END | disposition home or self-care (01) ==
LOC: MFPLAB 11:13
PROVIDERS: PCP Family Medicine; Visit Provider Internal Medicine Medical Oncology
DX: N36.42 Intrinsic sphincter deficiency (ISD) (principal); R77.8 Other specified abnormalities of plasma proteins
CPT/HCPCS: 36415; 80053; 82784; 83615; 83883; 84165; 85025; 86334

== ENCOUNTER 2023-12-28 15:29 | Emergency (ER) | payer MEDICARE, OTHER, SELFPAY ==
[2023-12-28 15:30] VITALS: BP 135/80; PULSE 79; RESP 16; TEMP 36.6; O2SAT 96; BMI 34.0
--- NOTE | 2023-12-28 15:54 | EKG12_ITS ---
Test Reason : WEAKNESS Blood Pressure : / mmHG Vent. Rate : 074 BPM Atrial Rate : 074 BPM P-R Int : 192 ms QRS Dur : 078 ms QT Int : 422 ms P-R-T Axes : 032 -41 024 degrees QTc Int : 468 ms Normal sinus rhythm with sinus arrhythmia Left axis deviation Possible Lateral infarct , age undetermined Abnormal ECG Confirmed by HORACE PROCTOR, MAXIMO ([id number]), commercial production editor MACARIO CROUCH ([id number]) on 01/03/2024 6:34:51 AM Referred By: Confirmed By:CHARLA VU MD
--- NOTE | 2023-12-28 15:54 | EX.ED.DYSGE1 ---
HPI History of Present Illness Chief Complaint: Weakness Informant: patient Narrative Narrative: Patient presents secondary to bilateral leg weakness and jumping movements. She states this has been a longstanding problem for her. When I reviewed neurology notes it appears this is been ongoing since she was in high school. She is been diagnosed with dyskinesias. She has a daughter who of ALS. She has had negative MRIs and genetic testing for Hampton's disease was negative. Patient had previously been on gabapentin and Ativan but it was discontinued secondary to increased cognitive difficulties. Patient states her symptoms seem to be worse last evening when she was out. She fell landing on another person. She states she could not wait to get home and as soon as she gets home she goes out. She is unsure if she just falls asleep quickly or if she passes out. She states this is also been going on for several months. [facility] Medical History Ambulates with cane Anxiety Asthma Back pain Blackout Bronchial spasms Chronic renal insufficiency Depression Diabetes Difficulty balancing Fatigue High cholesterol History of IBS Hyperlipidemia Incontinence Knee pain Loss of hearing Meniere disease Neck pain Non-smoker Polyneuropathy SOB (shortness of breath) Thyroid disease Walker as ambulation aid Wears dentures Home Medications levothyroxine 75 mcg tablet 75 mcg PO MOTUWETHFRSA THYROID 11/20/20 [History Last Taken 2 Days Ago ~11/18/20] rosuvastatin 20 mg tablet 20 mg PO DAILY 11/20/20 [History Last Taken 2 Days Ago ~11/18/20] acetaminophen 325 mg tablet 650 mg (2 x 325 mg) PO Q6H PRN PRN Pain Score 1-10/Temp > 100.7 F 11/22/20 [Rx Last Taken Unknown] levothyroxine 112 mcg tablet 112 mcg PO .Q Wednesday12/05/20 [History Last Taken Unknown] magnesium hydroxide 400 mg/5 mL oral suspension (Milk of Magnesia) 30 ml PO DAILY PRN constipation 12/05/20 [History Last Taken Unknown] cholecalciferol (vitamin D3) 50 mcg (2,000 unit) capsule 50 mcg PO DAILY 02/23/23 [History Last Taken Unknown] duloxetine 60 mg capsule,delayed release 60 mg PO BID 02/23/23 [History Last Taken Unknown] hydroxyzine HCl 25 mg tablet 25 mg PO TID 02/23/23 [History Last Taken Unknown] oxybutynin chloride 10 mg tablet,extended release 24 hr 10 mg PO DAILY BLADDER 02/23/23 [History Last Taken Unknown] meclizine 25 mg tablet 25 mg PO BID PRN dizziness #180 tabs 10/28/23 [Rx Last Taken Unknown] nortriptyline 25 mg capsule 25 mg PO QHS #90 caps 10/28/23 [Rx Last Taken Unknown] ropinirole 1 mg tablet 1 mg PO BID #180 tabs 10/28/23 [Rx Last Taken Unknown] albuterol sulfate 90 mcg/actuation aerosol inhaler (Ventolin HFA) 2 inh inhalation Q6H PRN 12/17/23 [History Last Taken Unknown] aspirin 81 mg tablet,delayed release (Adult Aspirin Regimen) 81 mg PO DAILY 12/17/23 [History Last Taken Unknown] Allergy/AdvReac Type Severity Reaction Status Date / Time succinylcholine Allergy MUSCLE Verified 12/28/23 15:32 CONTRACTED Family History Sister Dementia Surgical History History of ear surgery History of oral surgery History of wisdom tooth extraction Social History (Updated 12/28/23 @ 16:16 by Deidre Kasper) household members: none Smoking Status: Never smoker second hand exposure: No alcohol intake: never substance use type: does not use what type of physical activity do you participate in: other do you feel safe at home: Yes ROS ROS ED Constitutional Constitutional ED: Denies chills or fever(s) Eyes Eyes: Denies discharge from eye(s) ENT ENT ED: Denies discharge from eye(s), rhinorrhea or sore throat Cardiovascular Cardiovascular: Denies chest pain or palpitations Respiratory/Chest Respiratory/Chest: Denies cough or dyspnea Gastrointestinal Gastrointestinal: Denies abdominal pain, nausea or vomiting Genitourinary Genitourinary ED: Denies dysuria Musculoskeletal Musculoskeletal: Reports extremity pain; Denies back pain Integumentary Denies Abrasions or rash Neurologic Neurologic: Reports paresthesias and weakness; Denies headache(s) Psychiatric Psychiatric: Denies anxiety or depression Allergic/Immunologic Allergic/Immunologic ED: Denies lip swelling or urticaria EXAM Physical Exam Const Vital Signs: 12/28/23 15:30 12/28/23 16:20 12/28/23 16:21 Temperature 98 F Temperature Source Temporal Pulse Rate 79 74 Respiratory Rate 16 16 Respiratory Pattern Normal Blood Pressure 135/80 H Blood Pressure Mean 98 Pulse Ox 96 Oxygen Delivery Method Room Air Positive well nourished and well developed General Appearance ED: well developed HEENT Reports moist mucous membranes Eyes EOMs intact bilaterally Chest Wall inspection of chest normal and palpation of chest normal Resp normal respiratory effort and clear to auscultation bilaterally Cardio regular rate and regular rhythm GI non-tender Palpation: soft Extremity normal to inspection Extremity Narrative: Strong distal pulses. Good sensation on testing. Neuro oriented x3 Psych Mood & Affect: anxious Skin no rashes or lesions noted MDM MDM MDM Narrative Medical decision making narrative: Patient presents with symptoms that been ongoing for years. I advised her that I could rule out any emergency conditions making her symptoms worse today. She was placed on capability lead and EKG will be obtained given her questionable syncopal episode. Lab work will be obtained to evaluate for potential electrolyte abnormality. History & Record Review Discussion w/independent historian: Patient Lab Data Attestation: I reviewed the patient's lab results. Labs: Laboratory Results - last 24 hr 12/28/23 16:05 WBC 7.0 RBC 4.48 Hgb 13.5 Hct 40.4 MCV 90.2 MCH 30.1 MCHC 33.4 RDW Std Deviation 40.4 RDW Coeff of Myles 12.4 Plt Count TNP MPV 9.4 Immature Gran % (Auto) 0.300 Neut % (Auto) 38.8 L Lymph % (Auto) 38.4 Piatt % (Auto) 14.9 H Eos % (Auto) 6.3 H Baso % (Auto) 1.3 H Absolute Neuts (auto) 2.7 Absolute Lymphs (auto) 2.69 Nucleated RBC % 0 Differential Comment SCANNED Platelet Estimate ADEQUATE Sodium 136 Potassium 4.8 Chloride 104 Carbon Dioxide 28.0 Anion Gap 4 L BUN 19 H Creatinine 1.45 H Estim Creat Clear Calc 36.38 Est GFR (MDRD) Af Amer 45 L Est GFR (MDRD) Non-Af 37 L BUN/Creatinine Ratio 13.1 Glucose 128 H Calcium 9.2 Total Bilirubin 0.40 Direct Bilirubin < 0.05 AST 52 H ALT 29 Alkaline Phosphatase 52 Total Protein 7.6 Albumin 3.4 Globulin 4.2 EKG Initial EKG: Attestation: I personally reviewed and interpreted this EKG as follows: Interpretation: Sinus Rhythm (Sinus rhythm at 74 bpm with no acute ischemia.) Treatment and Re-Evaluation :: CBC was normal white count 7.0 with normal differential. Hemoglobin is normal at 13.5. Chemistry studies reveal a BUN of 19 and creatinine 1.45. This is consistent with her baseline. LFTs are unremarkable. EKG is sinus rhythm with no acute ischemia. She has had no arrhythmias noted on capability lead. Patient was observed walking down the [place]well to the bathroom and back with nursing staff. She is using her cane. At this time it appears patient has had extensive workup from neurology with no specific cause. I advised her that the likelihood that we would find anything in the emergency room was highly unlikely. I told her my goal was to ensure no acute electrolyte abnormalities that would be causing her to worsen. This is not the case. She has an appointment to see her PCP next week. Return instructions provided. Discharge Plan Triage Chief Complaint: Weakness ED Provider: Lynn Molina Dx/Rx/DC Orders Clinical Impression: Neuropathy Instructions: ED Weakness (Uncertain Cause) Prescriptions: No Action levothyroxine 112 mcg tablet 112 mcg PO .Q WEDNESDAY magnesium hydroxide [Milk of Magnesia] 400 mg/5 mL suspension 30 ml PO DAILY PRN (Reason: constipation) duloxetine 60 mg capsule,delayed release(DR/EC) 60 mg PO BID hydroxyzine HCl 25 mg tablet 25 mg PO TID cholecalciferol (vitamin D3) 50 mcg (2,000 unit) capsule 50 mcg PO DAILY nortriptyline 25 mg capsule 25 mg PO QHS Qty: 90 1RF meclizine 25 mg tablet 25 mg PO BID PRN (Reason: dizziness) Qty: 180 1RF ropinirole 1 mg tablet 1 mg PO BID Qty: 180 1RF Rx Instructions: Began after completing 2-week course of ropinirole 0.5 mg levothyroxine 75 MCG tablet 75 mcg PO MOTUWETHFRSA rosuvastatin 20 MG tablet 20 mg PO DAILY acetaminophen 325 MG tablet 650 mg PO Q6H PRN PRN (Reason: Pain Score 1-10/Temp > 100.7 F) 0RF oxybutynin chloride 10 mg tablet extended release 24hr 10 mg PO DAILY aspirin [Adult Aspirin Regimen] 81 mg tablet,delayed release (DR/EC) 81 mg PO DAILY albuterol sulfate [Ventolin HFA] 90 mcg/actuation HFA aerosol inhaler 2 inh INHALATION Q6H PRN Patient Comments: inhale 2 puffs by mouth and INTO THE LUNGS four times a day NEEDED Primary Care Provider: Danielito Sims Referrals: Danielito Sims MD [Primary Care Provider] - Keep Aiden appointment
[2023-12-28 16:16] LABS: Absolute Lymphocyte Count 2.69 X10^3/uL (0.83-4.51); Absolute Neutrophil Count 2.7 X10^3/uL (2.0-7.7); Basophil# 0.09 X10^3/uL; Basophil% 1.3 % (0-1); Eosinophil# 0.44 X10^3/uL; Eosinophils% 6.3 % (0-5); Hematocrit 40.4 % (37-47); Hemoglobin 13.5 g/dL (12.0-15.0); Lymphocyte # 2.69 X10^3/ul (0.83-4.51); Lymphocyte % 38.4 % (19-41); Mean Corp Hgb Conc 33.4 g/dL (32-36); Mean Corpuscular Hgb 30.1 pg (27.0-32.0); Mean Corpuscular Volume 90.2 fL (81-99); Mean Platelet Vol. 9.4 fl (6.2-12.0); Monocyte# 1.04 X10^3/uL; Monocyte% 14.9 % (0-10); NRBC Flagged by Analyzer 0 % (0-5); Neutrophil # 2.72 X10^3/uL (2.7-7.7); Neutrophil % 38.8 % (47-70); POSITIVE COUNT YES; RBC Distribution Width CV 12.4 % (11.6-14.6); RBC Distribution Width SD 40.4 fl (35.1-43.9); Red Blood Count 4.48 M/mm3 (4.2-5.4)
[2023-12-28 16:20] VITALS: PULSE 74; RESP 16
[2023-12-28 16:43] LABS: AST(SGOT) 52 U/L (15-37); Alanine Aminotransfer ALT/SGPT 29 U/L (13-56); Albumin, Serum 3.4 g/dL (3.2-5.0); Alkaline Phosphatase 52 U/L (45-117); Anion Gap 4 (5-15); BUN 19 mg/dL (7-18); BUN/Creat Ratio 13.1 RATIO (10-20); Bilirubin, Direct < 0.05 mg/dL (0.00-0.30); Calcium,Total 9.2 mg/dL (8.5-10.1); Chloride 104 mmol/L (98-107); Creatinine, Serum 1.45 mg/dL (0.55-1.02); EST Glomerular Filtration Rate 37 mL/min (>60); Est Glom Filt Rate - Afr Amer 45 mL/min (>60); Estimated Creatinine Clearance 36.38 ml/min; Globulin 4.2 g/dL (2.2-4.2); Glucose 128 mg/dL (74-106); Potassium 4.8 mmol/L (3.5-5.1); Protein, Total 7.6 g/dL (6.4-8.2); Sodium Level 136 mmol/L (136-145)
[2023-12-28 16:45] LABS: Differential Comment SCANNED; Differential Indicated SCAN CRITERIA MET
[2023-12-28 16:46] LABS: Platelet Estimate ADEQUATE (ADEQ)
[2023-12-28 17:46] VITALS: BP 119/76; PULSE 66; RESP 25; TEMP 36.4; O2SAT 95
== END 2023-12-28 17:49 | disposition home or self-care (01) ==
PROVIDERS: Emergency Provider Emergency Medicine; PCP Family Medicine; Visit Provider Emergency Medicine
DX: E11.42 Type 2 diabetes mellitus with diabetic polyneuropathy (principal)
CPT/HCPCS: 80048; 80076; 85025; 93005; 99283

== ENCOUNTER → 2024-01-26 | Outpatient (CLI) | payer MEDICARE, OTHER, SELFPAY ==
--- NOTE | 2024-01-26 13:52 | CT_ITS ---
EXAM: CT CERVICAL SPINE WITHOUT INTRAVENOUS CONTRAST CLINICAL INDICATION: Neck pain; gait D/O; possible cervical myelopathy TECHNIQUE: Helically acquired images were obtained of the cervical spine without intravenous contrast. 2D reformatted images were reviewed. This CT exam was performed using one or more of the following dose reduction techniques: automated exposure control, adjustment of the mA and/or kV according to patient size, and/or use of iterative reconstruction technique. COMPARISON: No relevant prior studies available. FINDINGS: VERTEBRAE: Mild multilevel facet arthrosis, and endplate osteophytosis, and uncovertebral joint arthrosis. No fracture. No traumatic subluxation. No discrete lytic or blastic abnormality. Normal alignment. Normal craniocervical junction and cervicothoracic junction. DISCS/SPINAL CANAL/NEURAL FORAMINA: Mild multilevel intervertebral disc height loss. Possible small disc herniations and/or bulges at C4-C5 and C5-C6 and perhaps at C6-C7. No critical spinal canal or neural foraminal stenosis is appreciated. SOFT TISSUES: No significant abnormality. No prevertebral soft tissue swelling. VASCULATURE: Vascular calcifications. LYMPH NODES: No significant abnormality. No cervical adenopathy. LUNG APICES: Normal as visualized. No acute findings at the lung apices. CT/Spine Cervical without Contras IMPRESSION: Multilevel degenerative changes. No acute osseous abnormalities. Consider MRI follow-up. Electronically Signed: Rip Lama DO at 21:49 EDT ,
[2024-01-26 14:46] LABS: Erythrocyte Sedimentation Rate 7 mm/hr (0-30)
[2024-01-26 14:48] LABS: Absolute Lymphocyte Count 2.33 X10^3/uL (0.83-4.51); Absolute Neutrophil Count 3.7 X10^3/uL (2.0-7.7); Basophil# 0.07 X10^3/uL; Basophil% 0.9 % (0-1); Eosinophil# 0.39 X10^3/uL; Eosinophils% 5.3 % (0-5); Hematocrit 44.1 % (37-47); Hemoglobin 14.9 g/dL (12.0-15.0); Lymphocyte # 2.33 X10^3/ul (0.83-4.51); Lymphocyte % 31.4 % (19-41); Mean Corp Hgb Conc 33.8 g/dL (32-36); Mean Corpuscular Hgb 31.1 pg (27.0-32.0); Mean Corpuscular Volume 92.1 fL (81-99); Mean Platelet Vol. 8.7 fl (6.2-12.0); Monocyte# 0.87 X10^3/uL; Monocyte% 11.7 % (0-10); NRBC Flagged by Analyzer 0 % (0-5); Neutrophil # 3.74 X10^3/uL (2.7-7.7); Neutrophil % 50.4 % (47-70); Platelet Count 266 K/mm3 (150-450); RBC Distribution Width CV 12.3 % (11.6-14.6); RBC Distribution Width SD 41.8 fl (35.1-43.9); Red Blood Count 4.79 M/mm3 (4.2-5.4); White Blood Count 7.4 K/mm3 (4.4-11.0)
[2024-01-26 15:03] LABS: Vitamin B12 826 pg/mL (211-911); Vitamin D,25 Hydroxy 33.8 ng/mL
[2024-01-26 15:19] LABS: ALB/GLOB Ratio 0.9 RATIO (0.9-2.4); AST(SGOT) 28 U/L (15-37); Alanine Aminotransfer ALT/SGPT 37 U/L (13-56); Albumin, Serum 3.9 g/dL (3.2-5.0); Alkaline Phosphatase 57 U/L (45-117); Anion Gap 5 (5-15); BUN 15 mg/dL (7-18); BUN/Creat Ratio 10.3 RATIO (10-20); Calcium,Total 9.5 mg/dL (8.5-10.1); Chloride 101 mmol/L (98-107); Creatinine, Serum 1.46 mg/dL (0.55-1.02); EST Glomerular Filtration Rate 37 mL/min (>60); Est Glom Filt Rate - Afr Amer 45 mL/min (>60); Ferritin 108 ng/mL (8-252); Globulin 4.4 g/dL (2.2-4.2); Glucose 110 mg/dL (74-106); Iron 91 ug/dL (50-170); Potassium 4.7 mmol/L (3.5-5.1); Protein, Total 8.3 g/dL (6.4-8.2); Sodium Level 134 mmol/L (136-145); Thyroid Stim Hormone (TSH) 2.38 uIU/mL (0.358-3.74)
== END | disposition home or self-care (01) ==
PROVIDERS: PCP Family Medicine; Referring Provider Psychiatry & Neurology Neurology; Visit Provider Psychiatry & Neurology Neurology
DX: E03.9 Hypothyroidism, unspecified (principal); R26.9 Unspecified abnormalities of gait and mobility; R53.83 Other fatigue; M54.2 Cervicalgia
CPT/HCPCS: 36415; 72125; 80053; 82306; 82533; 82607; 82728; 83540; 84443; 85025; 85652

== ENCOUNTER → 2024-06-12 | Outpatient (CLI) | payer MEDICARE, OTHER, SELFPAY ==
[2024-06-12 17:45] LABS: Hematocrit 39.9 % (37-47); Hemoglobin 12.8 g/dL (12.0-15.0); Mean Corp Hgb Conc 32.1 g/dL (32-36); Mean Corpuscular Hgb 30.5 pg (27.0-32.0); Mean Corpuscular Volume 95.2 fL (81-99); Mean Platelet Vol. 8.9 fl (6.2-12.0); Platelet Count 284 K/mm3 (150-450); RBC Distribution Width CV 13.1 % (11.6-14.6); RBC Distribution Width SD 45.5 fl (35.1-43.9); Red Blood Count 4.19 M/mm3 (4.2-5.4); White Blood Count 8.6 K/mm3 (4.4-11.0)
[2024-06-12 18:04] LABS: Anion Gap 4 (5-15); BUN 23 mg/dL (7-18); BUN/Creat Ratio 15.6 RATIO (10-20); Calcium,Total 9.4 mg/dL (8.5-10.1); Chloride 102 mmol/L (98-107); Creatinine, Serum 1.47 mg/dL (0.55-1.02); EST Glomerular Filtration Rate 37 mL/min (>60); Est Glom Filt Rate - Afr Amer 45 mL/min (>60); Glucose 108 mg/dL (74-106); Potassium 4.5 mmol/L (3.5-5.1); Sodium Level 136 mmol/L (136-145)
== END | disposition home or self-care (01) ==
LOC: MFPLAB 15:14
PROVIDERS: PCP Family Medicine; Visit Provider Family Medicine
DX: N18.30 Chronic kidney disease, stage 3 unspecified (principal)
CPT/HCPCS: 36415; 80048; 85027

== ENCOUNTER → 2024-06-13 | Outpatient (CLI) | payer MEDICARE, OTHER, SELFPAY ==
--- NOTE | 2024-06-13 07:51 | CT_ITS ---
STUDY: CT LUMBAR SPINE WITH CONTRAST REASON FOR EXAM: Female, 73 years old. LOWER EXTREMITY WEAKNESS RADIATION DOSAGE (If Supplied By Facility): CTDIvol = ( 16.35 ) mGy, DLP = ( 536.37 ) mGycm TECHNIQUE: The patient was scanned in a multi detector CT scanner. High resolution transaxial imaging was performed following the intravenous administration of IV 100mL Isovue-370. Images were obtained from to . Sagittal and coronal images were reconstructed. Individualized dose optimization techniques were used for this CT. COMPARISON: None FINDINGS: Normal lumbar lordosis. There is no substantial scoliosis. A spinal cord to monitor device is seen. Normal vertebrae of the lumbar spine. L1-2: Mild disc space narrowing. No significant stenosis seen. Mild degree of anterior spondylosis. L2-3: Moderate degree of disc space narrowing and degeneration. Spondylosis. Facet joint hypertrophy and mild degree of bilateral neural foraminal stenosis. L3-4: Marked in degree of disc space narrowing with subchondral sclerosis and spondylosis. Mild degree of bilateral neural foraminal and central canal stenosis due to hypertrophy of the facet joints and ligamentum flavum. L4-5: Minimal anterior listhesis of L4 on L5 due to facet joint osteoarthritis and hypertrophy. There is a moderate to marked degree of central canal stenosis as well as stenosis of the bilateral neural foramina due to hypertrophy of the facet joints. L5-S1: Marked degree of disc space narrowing and disc degeneration. No significant stenosis seen. Atherosclerotic plaque formation of the aortic arch. CT/Spine Lumbar WITH Contrast IMPRESSION: Multilevel degenerative changes, as described above. Electronically Signed: Anibal Lan MD at 13:45 EDT ,
[2024-06-13 08:19] LABS: CREATININE FINGERSTICK < 1.0 mg/dL (0.55-1.02); EGFR FINGERSTICK > 60.0000 mL/min (>60)
== END | disposition home or self-care (01) ==
LOC: CT 07:43
PROVIDERS: PCP Family Medicine; Referring Provider Family Medicine; Visit Provider Family Medicine
DX: R29.898 Other symptoms and signs involving the musculoskeletal system (principal)
CPT/HCPCS: 72132; Q9967

== ENCOUNTER → 2024-10-14 | Outpatient (CLI) | payer MEDICARE, OTHER, SELFPAY ==
--- NOTE | 2024-10-14 07:30 | MRI_ITS ---
STUDY: MRI CERVICAL SPINE REASON FOR EXAM: Female, 74 years old. Gait D/O; hyperreflexia; eval for cervical myelopa TECHNOLOGIST NOTE: Best Possible Patient Had Tremors TECHNIQUE: MRI examination of the cervical spine obtained with standard protocol including multiplanar multiecho Noncontrast imaging. Contrast: No contrast administered COMPARISON: No pertinent prior examinations for comparison. LIMITATIONS: Motion artifact. FINDINGS: Vertebral bodies and alignment: 1. Vertebral body height and alignment are maintained. No evidence of marrow edema, fracture or subluxation. 2. Prevertebral soft tissue planes have normal appearance. Normal appearance the odontoid process and alignment of the craniocervical junction. 3. Normal appearance the posterior muscular fascial planes of the cervical spine, and the posterior ligamentous support structure the cervical spine is intact. Intervertebral disc levels: C2-3: Normal endplates. Normal disc height, signal and morphology. Normal central canal and intervertebral neural foramina. C3-4: Normal endplates. Normal disc height, signal and morphology. Normal central canal and intervertebral neural foramina. C4-5: Mild disc desiccation without evidence of disc herniation or canal stenosis, mild disc bulge noted. There is mild narrowing of neural foramina without nerve root impingement. Facet hypertrophic changes are present normal appearance of the endplates. C5-6: Disc desiccation, broad-based a posterior disc bulge without disc herniation or canal stenosis. No cord compression. There is foraminal stenosis on the LEFT due to uncovertebral joint hypertrophic changes and facet arthropathy. Normal appearance of the endplates. RIGHT neural foramen is widely patent. C6-7: Minimal grade 1 anterolisthesis of C6. Unroofed disc material present, no disc herniation or canal stenosis. There is mild narrowing of the LEFT neural foramen. C7-T1: Normal endplates. Normal disc height, signal and morphology. Normal central canal and intervertebral neural foramina. Spinal CORD: There is normal appearance the spinal cord. No intramedullary signal abnormality, masses or syrinx. Normal appearance of the cervical medullary junction. No evidence cord compression. MRI/Spine Cervical (Routine) IMPRESSION: 1. No evidence of disc herniation, canal stenosis or cord compression. 2. Mild multilevel disc changes at, moderate foraminal stenosis greater on LEFT than RIGHT particularly at C5-6 and C6-7. 3. Minimal grade 1 anterolisthesis of C6 on C7. 4. Normal appearance of visualized spinal cord. Electronically Signed: Young Jimenez MD at 18:21 [facility] ,
--- NOTE | 2024-10-14 07:30 | MRI_ITS ---
STUDY: MRI LUMBAR SPINE WITHOUT CONTRAST REASON FOR EXAM: Female, 74 years old. Gait disorder; lumbar spinal stenosis, LEG WEAKNESS TECHNIQUE: Standardized fat and water weighted pulse sequences were obtained in the sagittal and axial planes. Noncontrast images obtained. Contrast: No contrast administered COMPARISON: None FINDINGS: Vertebral bodies and alignment. 1. Vertebral body height and alignment are maintained. No evidence of marrow edema or occult fracture. 2. Paraspinous soft tissue planes have normal appearance. Normal appearance of the muscular fascial planes of the erector spinae. 3. Normal appearance of the sacrum and sacroiliac joints. Intervertebral disks levels. T12-L1: Normal disc height, hydration and morphology. Normal bilateral facet joints. Normal central canal and bilateral lateral recesses. Normal bilateral intervertebral neural foramina. Endplate: No focal endplate marrow changes or endplate deformity. L1-2: Minimal disc desiccation, no disc herniation canal or foraminal stenosis. Facet and ligamentum flavum hypertrophic changes are present. Endplate: No focal endplate marrow changes or endplate deformity. L2-3: Disc desiccation, loss of disc height, broad-based concentric disc bulge/borderline protrusion with deformity the anterior epidural space. Central thecal sac is narrowed to 7 mm. Facet, ligamentum flavum hypertrophic changes, and a posterior epidural lipomatosis accentuate narrowing of the thecal sac. There is compression of lateral recesses greater on LEFT than RIGHT with potential early nerve root impingement. The neural foramina are narrowed greater on the LEFT than RIGHT. Endplate: Mild mixed endplate changes, scattered early Modic type I edema noted anteriorly. L3-4: Disc desiccation, broad-based posterior disc bulge/protrusion with small amount of extruded disc material migrating superiorly in the anterior epidural space at. Central thecal sac is narrowed to approximately 6 mm, contributed by disc changes facet and ligamentum flavum hypertrophic changes and mild posterior epidural lipomatosis. There is crowding of nerve roots lateral recesses, early impingement in the lateral recesses bilaterally. Neural foramina also mildly narrowed greater on the RIGHT than LEFT. Endplate: Mixed Modic changes are present however moderate Modic type I edema in the RIGHT side of the endplates L4-5: Subtle grade 1 anterolisthesis of L4 on L5 thought. There is facet and ligamentum flavum hypertrophic changes, unroofed disc material noted, central thecal sac is narrowed to approximately 4 mm. Mild crowding of nerve roots in the lateral recesses with potential impingement particularly on the LEFT. Neural foramina however are widely patent. Endplate: No focal endplate marrow changes or endplate deformity. L5-S1: Disc desiccation, broad-based posterior disc bulge/protrusion and osteophyte complex with deformity the anterior epidural space, no central canal stenosis however compression of the S1 nerve roots lateral recesses greater on the RIGHT than LEFT. Neural foramina are narrowed without nerve root impingement. Endplate: Mixed Modic changes however predominantly fatty Modic type II marrow changes present. Spinal cord: Normal appearance of the spinal cord and conus. Conus is located at L1. Cauda equina has normal appearance. No evidence of cord compression or edema. No intramedullary signal abnormality noted. Paraspinous soft tissues: Normal visualized paraspinous soft tissue structures. MRI/Spine Lumbar (Routine) IMPRESSION: 1. Multilevel disc, endplate, and facet changes most notable at L2-3 L3-4. There is however a minimal grade 1 anterolisthesis of L4 and L5, and moderate to severe central canal stenosis. 2. There is crowding of nerve roots lateral recesses at multiple levels with potential nerve root impingement at L2-3, L3-4, and L5-S1. Nerve root impingement also suspected within the lateral recesses at L4-5. 3. Normal appearance of visualized spinal cord and conus. 4. Modic changes most notable at L3-4 consistent with Modic type I and edema on the RIGHT side of the endplates. Electronically Signed: Young Jimenez MD at 18:28 EST ,
== END | disposition home or self-care (01) ==
LOC: MRI 07:11
PROVIDERS: PCP Family Medicine; Referring Provider Psychiatry & Neurology Neurology; Visit Provider Psychiatry & Neurology Neurology
DX: M48.061 Spinal stenosis, lumbar region without neurogenic claudication (principal); G95.9 Disease of spinal cord, unspecified; R26.9 Unspecified abnormalities of gait and mobility
CPT/HCPCS: 72141; 72148

== ENCOUNTER → 2024-11-30 | Outpatient (CLI) | payer MEDICARE, OTHER, SELFPAY ==
[2024-11-30 15:34] LABS: Absolute Lymphocyte Count 2.88 X10^3/uL (0.83-4.51); Absolute Neutrophil Count 2.6 X10^3/uL (2.0-7.7); Basophil# 0.08 X10^3/uL; Basophil% 1.1 % (0-1); Eosinophil# 0.34 X10^3/uL; Eosinophils% 4.9 % (0-5); Hematocrit 39.9 % (37-47); Hemoglobin 13.6 g/dL (12.0-15.0); Lymphocyte # 2.88 X10^3/ul (0.83-4.51); Lymphocyte % 41.4 % (19-41); Mean Corp Hgb Conc 34.1 g/dL (32-36); Mean Corpuscular Hgb 31.6 pg (27.0-32.0); Mean Corpuscular Volume 92.6 fL (81-99); Monocyte# 1.04 X10^3/uL; Monocyte% 14.9 % (0-10); NRBC Flagged by Analyzer 0 % (0-5); Neutrophil % 37.4 % (47-70); Platelet Count 296 K/mm3 (150-450); RBC Distribution Width SD 44.3 fl (35.1-43.9); Red Blood Count 4.31 M/mm3 (4.2-5.4)
[2024-11-30 15:47] LABS: BNP,B-Type NATRIURETIC PEPTIDE 18.6 pg/mL (0-100)
[2024-11-30 16:03] LABS: Erythrocyte Sedimentation Rate 29 mm/hr (0-30)
[2024-11-30 16:19] LABS: AST(SGOT) 38 U/L (15-37); Alanine Aminotransfer ALT/SGPT 55 U/L (13-56); Albumin, Serum 3.9 g/dL (3.2-5.0); Alkaline Phosphatase 53 U/L (45-117); Anion Gap 8 (5-15); BUN 19 mg/dL (7-18); BUN/Creat Ratio 15.1 RATIO (10-20); CRP < 2.90 mg/L (0.0-3.0); Calcium,Total 9.3 mg/dL (8.5-10.1); Chloride 99 mmol/L (98-107); Creatinine, Serum 1.26 mg/dL (0.55-1.02); EST Glomerular Filtration Rate 44 mL/min (>60); Est Glom Filt Rate - Afr Amer 53 mL/min (>60); Ferritin 106 ng/mL (8-252); Glucose 103 mg/dL (74-106); Iron 98 ug/dL (50-170); Potassium 4.5 mmol/L (3.5-5.1); Protein, Total 7.9 g/dL (6.4-8.2); Rheumatoid Factor < 10.0 IU/mL (<15); Sodium Level 132 mmol/L (136-145)
[2024-12-02 17:07] LABS: ANTINUCLEAR ANTIBODIES DIRECT Negative (Negative)
[2024-12-04 14:08] LABS: PROEL- A/G Ratio 1.1 (0.7-1.7); PROEL- Albumin 3.7 g/dL (2.9-4.4); PROEL- Alpha-1 Globulin 0.2 g/dL (0.0-0.4); PROEL- Beta Globulin 1.3 g/dL (0.7-1.3); PROEL- Globulin, Total 3.5 g/dL (2.2-3.9); PROEL- TOTAL PROTEIN 7.2 g/dL (6.0-8.5); PROEL-M-Spike Not Observed g/dL (Not Observed)
== END | disposition home or self-care (01) ==
LOC: MFPLAB 11:49
PROVIDERS: PCP Family Medicine; Visit Provider Family Medicine
DX: R60.9 Edema, unspecified (principal); N18.30 Chronic kidney disease, stage 3 unspecified; M35.3 Polymyalgia rheumatica
CPT/HCPCS: 36415; 80053; 82306; 82728; 83540; 83880; 84165; 84443; 85025; 85652; 86038; 86140; 86431

== ENCOUNTER → 2024-12-06 | Outpatient (CLI) | payer MEDICARE, OTHER, SELFPAY ==
[2024-12-06 10:42] LABS: Cholesterol 155 mg/dL (200); High Density Lipoprotein 60 mg/dL; T4 Free Direct 0.84 ng/dL (0.76-1.46); Triglycerides 167 mg/dL; Very Low Density Lipoprotein 33 mg/dL (5-40)
[2024-12-06 12:01] LABS: Osmolality, Serum 293 mOsm/KG (280-301)
== END | disposition home or self-care (01) ==
LOC: MFPLAB 08:05
PROVIDERS: PCP Family Medicine; Referring Provider Family Medicine; Visit Provider Family Medicine
DX: E03.9 Hypothyroidism, unspecified (principal); E11.69 Type 2 diabetes mellitus with other specified complication; R60.9 Edema, unspecified
CPT/HCPCS: 36415; 80061; 83930; 84439; 84443

== ENCOUNTER → 2025-01-02 | Outpatient (CLI) | payer MEDICARE, OTHER, SELFPAY ==
--- NOTE | 2025-01-02 13:49 | ART_ITS ---
Reason For Study Reason For Study: LEG PAIN R>L Procedure A bilateral lower extremity continuous wave Doppler with analog waveform analysis and ankle brachial indexes. Technically difficult due to involuntary lower leg movements. Left Segmental Pressures Left brachial= 128mmHg. Left posterior tibial artery = 153mmHg. Left dorsalis pedis artery = 139mmHg. The left posterior tibial artery waveforms are triphasic. The left dorsalis pedis waveforms are triphasic. Right Segmental Pressures Right brachial= 128mmHg. Right posterior tibial artery = 150mmHg. Right dorsalis pedis artery = 145mmHg. The right posterior tibial artery waveforms are triphasic. The right dorsalis pedis waveforms are triphasic. Indices The right resting ankle brachial index is 1.17. The right ankle brachial index by the posterior tibial artery is 1.17. The right ankle brachial index by the dorsalis pedis is 1.13. The left resting ankle brachial index is 1.20. The left ankle brachial index by the posterior tibial artery is 1.20. The left ankle brachial index by the dorsalis pedis is 1.09. VL/Ankle Brachial Index Interpretation Summary Right JESSICA 1.17, normal. Doppler/PVR waveforms of the right ankle normal at rest . Left JESSICA 1.2, normal. Doppler/PVR waveforms of the left ankle normal at rest. Ordering Physician: Edmar Borges Referring Physician: EDMAR BORGES MD Performed By: Joi Delgado RVT, RDCS
== END | disposition home or self-care (01) ==
LOC: CVS 13:48
PROVIDERS: PCP Family Medicine; Referring Provider Family Medicine; Visit Provider Family Medicine
DX: I73.9 Peripheral vascular disease, unspecified (principal)
CPT/HCPCS: 93922

== ENCOUNTER → 2025-03-22 | Outpatient (CLI) | payer MEDICARE, OTHER, SELFPAY ==
--- NOTE | 2025-03-22 07:59 | US_ITS ---
PROCEDURE: PELVIC (NON ) 03/22/2025 REASON FOR EXAM: ABN PELVIC EXAM TECHNIQUE: Transabdominal pelvic ultrasound FINDINGS: Transabdominal imaging Study is limited by bowel gas and patient bladder not full. Study limited by patient condition. Bladder volume 48 cc. The uterus measures 4.4 x 2.5 x 2 cm and appears within limits. 5 mm endometrial stripe. Cervix appears within limits. The right and left ovaries are not visualized. No evidence of adnexal mass seen. No free fluid seen. US/Pelvic (Non ) IMPRESSION: Study is limited by bowel gas and patient bladder not full. The right and left ovaries are not visualized. Reading Location: [id number]
== END | disposition home or self-care (01) ==
LOC: OPUS 07:50
PROVIDERS: PCP Family Medicine; Referring Provider Urology; Visit Provider Urology
DX: Z01.411 Encounter for gynecological examination (general) (routine) with abnormal findings (principal)
CPT/HCPCS: 76856

== ENCOUNTER → 2025-06-07 | Outpatient (CLI) | payer MEDICARE, OTHER, SELFPAY ==
[2025-06-07 12:30] LABS: Hematocrit 41.0 % (37-47); Hemoglobin 13.7 g/dL (12.0-15.0); Mean Corp Hgb Conc 33.4 g/dL (32-36); Mean Corpuscular Volume 95.6 fL (81-99); Mean Platelet Vol. 9.4 fl (6.2-12.0); Platelet Count 311 K/mm3 (150-450); RBC Distribution Width CV 12.8 % (11.6-14.6); RBC Distribution Width SD 45.0 fl (35.1-43.9); Red Blood Count 4.29 M/mm3 (4.2-5.4); White Blood Count 7.4 K/mm3 (4.4-11.0)
[2025-06-07 13:26] LABS: Anion Gap 12 (5-15); BUN 13 mg/dL (4-19); BUN/Creat Ratio 10.5 RATIO (10-20); Calcium,Total 9.5 mg/dL (7.6-11.0); Carbon Dioxide 25.6 mmol/L (21.0-32.0); Chloride 97 mmol/L (98-108); Glucose 115 mg/dL (70-99); Potassium 4.4 mmol/L (3.3-5.1); Vitamin D,25 Hydroxy 40.2 ng/mL (30-100)
== END | disposition home or self-care (01) ==
LOC: MFPLAB 10:27
PROVIDERS: PCP Family Medicine; Referring Provider Family Medicine; Visit Provider Family Medicine
DX: E03.9 Hypothyroidism, unspecified (principal); N18.30 Chronic kidney disease, stage 3 unspecified
CPT/HCPCS: 36415; 80048; 82306; 84443; 85027

== ENCOUNTER → 2025-06-28 | Outpatient (CLI) | payer MEDICARE, OTHER, SELFPAY ==
--- NOTE | 2025-06-28 15:00 | CT_ITS ---
PROCEDURE: ABDOMEN/PELVIS WITHOUT CONT 06/28/2025 REASON FOR EXAM: KIDNEY STONE Frequent urination. TECHNIQUE: Procedure Code: CTABDPEL Modality: CT Procedure: ABDOMEN/PELVIS WITHOUT CONT Noncontrast technique limits evaluation of the abdominal and pelvic viscera. Coronal and Sagittal reconstruction series were provided. One or more dose reduction techniques were used (e.g., Automated exposure control, adjustment of the mA and/or kV according to patient size, use of iterative reconstruction technique). RADIATION DOSE SUMMARY: CTDlvol: 18.72 mGy DLP: 903.25 mGycm COMPARISON: None FINDINGS: Lung bases: Mild dependent atelectasis and/or linear scarring. Coronary artery calcification. Liver: Borderline hepatomegaly. Gallbladder: No evidence of gallstones. Spleen: Scattered calcified splenic granulomas. Pancreas: Normal size. No surrounding inflammation. Adrenals: Unremarkable. Kidneys: Punctate calculus in the lower pole calyx of the right kidney. 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 Bladder: Unremarkable Reproductive Organs: Prior hysterectomy. Adnexal regions are unremarkable. Bowel: Colonic diverticulosis without diverticulitis. Appendix: The appendix is not identified. There is no inflammatory process identified in the right lower quadrant to suggest appendicitis. Lymph nodes: Unremarkable. Vasculature: Mild diffuse atherosclerotic calcifications are noted. Peritoneum / Retroperitoneum: Nonspecific mild increased markings within the peritoneal fat of the root of the omentum. Bones: Degenerative changes of the spine. CT/Abdomen/Pelvis without Cont IMPRESSION: Borderline hepatomegaly. Punctate calculus in the lower pole calyx of the right kidney. 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 Reading Location: [id number]
== END | disposition home or self-care (01) ==
LOC: CT 14:38
PROVIDERS: PCP Family Medicine; Referring Provider Urology; Visit Provider Urology
DX: N20.0 Calculus of kidney (principal)
CPT/HCPCS: 74176

== ENCOUNTER → 2025-10-16 | Outpatient (CLI) | payer MEDICARE, OTHER, SELFPAY ==
--- NOTE | 2025-10-16 09:19 | RAD_ITS ---
PROCEDURE: CHEST PA AND LATERAL 10/16/2025 REASON FOR EXAM: COUGH TECHNIQUE: Procedure Code: RADCXR Modality: DX Procedure: CHEST PA AND LATERAL COMPARISON: January 31, 2020 FINDINGS: Heart size and mediastinal configuration are within normal limits. There is no focal infiltrate or consolidation. There is no pneumothorax or effusion. There is a 0.6 cm nodular density in the retrosternal space on the lateral view, new compared to the prior. Aortic calcifications are visible. RAD/Chest PA and Lateral IMPRESSION: There is a 0.6 cm nodular density in the retrosternal space on the lateral view , new compared to the prior. Chest CT correlation is recommended. Reading Location: [id number]
== END | disposition home or self-care (01) ==
LOC: MTRAD 09:19
PROVIDERS: PCP Family Medicine; Referring Provider Nurse Practitioner Family; Visit Provider Nurse Practitioner Family
DX: R05.9 Cough, unspecified (principal)
CPT/HCPCS: 71046

== ENCOUNTER → 2025-10-19 | Outpatient (CLI) | payer MEDICARE, OTHER, SELFPAY ==
--- NOTE | 2025-10-19 13:18 | CT_ITS ---
PROCEDURE: CHEST WITHOUT CONTRAST 10/19/2025 REASON FOR EXAM: LUNG NODULE TECHNIQUE: Chest CT without contrast. Coronal and Sagittal reconstruction series were provided. One or more dose reduction techniques were used (e.g., Automated exposure control, adjustment of the mA and/or kV according to patient size, use of iterative reconstruction technique RADIATION DOSE SUMMARY: DLP: 525.86 mGycm COMPARISON: Correlation with chest radiographs 10/16/2025 FINDINGS: Hardware: None. Lymph nodes: No evidence of lymphadenopathy. Heart and Vasculature: Normal in size. No pericardial effusion. The thoracic aorta main pulmonary artery are normal in caliber. Coronary Artery Calcifications: Present Lungs and Airways: Focal lung consolidation. Bilateral lower lobe atelectasis/scarring. There is a inferior right middle lobe round density which may reflect focal atelectasis or nodule. This measures up to 14 mm (series 4, image 87). Pulmonary nodules (series 4): Inferior right upper lobe 5 mm solid pulmonary nodule (image 51). Right perifissural density measuring up to 12 mm in length along the horizontal fissure (image 66). Right middle lobe 5 mm solid pulmonary nodule (image 77). Left perifissural 5.5 mm solid pulmonary nodule (image 52). Right calcified granulomas. The central airways are patent. Pleura: No pneumothorax or pleural effusion Upper Abdomen: Punctate hepatic and splenic calcified granulomas. Bones: No aggressive osseous lesion. Degenerative changes of the thoracic spine. CT/Chest without Contrast IMPRESSION: 1. Multiple pulmonary nodules measuring up to 12 mm[address] Recommend [address] foll ow-up per Fle[employer] pulmonary nodule guidelines. 2. Bilateral lower lobe atelectasis/scarring. Inflammatory changes is not excl uded. 3. Coronary artery calcifications. Reading Location: [id number]
== END | disposition home or self-care (01) ==
LOC: CT 13:10
PROVIDERS: PCP Family Medicine; Referring Provider Nurse Practitioner Family; Visit Provider Nurse Practitioner Family
DX: R91.1 Solitary pulmonary nodule (principal)
CPT/HCPCS: 71250